=== PATIENT | female | born 2000 | race Caucasian/White ===

== ENCOUNTER 2023-04-13 20:28 | Emergency (ER) | payer BC, SELFPAY ==
[2023-04-13 20:31] VITALS: BP 145/92; PULSE 114; RESP 18; TEMP 37.1; O2SAT 98; BMI 35.8
--- NOTE | 2023-04-13 20:43 | ED.LOWEXI1 ---
HPI - Extremity Injury (Lower) General Chief Complaint: Extremity Injury, Lower Stated Complaint: STEPPED ON XANDER NAIL Time Seen by Provider: 04/13/23 20:36 Source: patient Mode of arrival: walk-in Limitations: no limitations History of Present Illness HPI Narrative: patient is a 22-year-old female who presents the emergency department for the evaluation of an abrasion in between the left great and 2nd toe. She states she stepped on a nail and it broke the skin, she states it bled veryy briefly and she did not note any significant laceration or puncture wound but was concerned she may need a tetanus shot. She had no other associated injuries. She believes her last tetanus shot was 9-10 years ago. Related Data Home Medications Medication Instructions Recorded Confirmed No Known Home Medications 04/13/23 04/13/23 Allergies Allergy/AdvReac Type Severity Reaction Status Date / Time Sulfa (Sulfonamide Allergy Intermediate Verified 04/13/23 20:36 Antibiotics) Review of Systems ROS Constitutional Denies: fever or chills Ears, nose, mouth, and throat Denies: throat pain Respiratory Denies: shortness of breath Gastrointestinal Denies: nausea or vomiting Musculoskeletal Denies: back pain Integumentary/Breast Denies: rash Neurological Denies: headache Allergic/Immunologic Denies: hives Exam Narrative Exam Narrative: Gen.: Awake, alert, in no distress Head: Normocephalic, atraumatic ENT: Moist mucous membranes Respiratory: No respiratory distress Extremities: Moves extremities equally, 2 mm faint abrasion that is extremely superficial to the lateral aspect of the left great toe in the webspace between the great toe and 2nd toe. There is no puncture wound, deep laceration or active bleeding noted. Psych: Normal mood and affect Neuro: No focal neuro deficit Skin: Warm, dry, intact Constitutional Vital Signs, click to edit/add: Last Vital Signs Temp 98.8 F 04/13/23 20:31 Pulse 114 H 04/13/23 20:31 Resp 18 04/13/23 20:31 BP 145/92 H 04/13/23 20:31 Pulse Ox 98 04/13/23 20:31 O2 Del Method Room Air 04/13/23 20:31 Course Vital Signs Vital signs: Vital Signs Temperature 98.8 F 04/13/23 20:31 Pulse Rate 114 H 04/13/23 20:31 Respiratory Rate 18 04/13/23 20:31 Blood Pressure 145/92 H 04/13/23 20:31 Pulse Oximetry 98 04/13/23 20:31 Oxygen Delivery Method Room Air 04/13/23 20:31 Temperature 98.8 F 04/13/23 20:31 Pulse Rate 114 H 04/13/23 20:31 Respiratory Rate 18 04/13/23 20:31 Blood Pressure 145/92 H 04/13/23 20:31 Pulse Oximetry 98 04/13/23 20:31 Oxygen Delivery Method Room Air 04/13/23 20:31 MDM - Extremity Injury (Lower) MDM Narrative Medical decision making narrative: I offered the patient a tetanus shot. Her abrasion is extremely superficial with no deep puncture wound into the tissue, she states if the tetanus shot is not absolutely necessary then she does not want it at this time. Discussed risks and benefits, at this time the patient has an extremely superficial abrasion that is low risk for tetanus, she was encouraged to follow-up with her doctor and she can change her mind within seventy-two hours if she would like a tetanus update later. Wound care encouraged although there is no significant area of laceration at this time Discharge Plan Discharge Chief Complaint: Extremity Injury, Lower Clinical Impression: Abrasion Patient Disposition: Home, Self-Care Time of Disposition Decision: 20:42 Condition: Good Prescriptions / Home Meds: No Action No Known Home Medications Instructions: Abrasion (ED) Stand Alone Forms: Portal Instructions Referrals: ADRYAN MOORE [Primary Care Provider] - 1 week Discharge Date/Time: 04/13/23 20:50
== END 2023-04-13 20:50 | disposition home or self-care (01) ==
PROVIDERS: Emergency Provider Internal Medicine; PCP Family Medicine
DX: S90.412A Abrasion, left great toe, initial encounter (principal); W45.0XXA Nail entering through skin, initial encounter
CPT/HCPCS: 99281

== ENCOUNTER 2023-06-19 10:04 | Outpatient (OUT) | payer SELFPAY ==
--- NOTE | 2023-06-19 10:08 | US_ITS ---
[address] [address] Patient Name: JUANPABLO CHAPARRO MRN: [id number] date: 2000 Sex: F Assigned Patient Location: Current Patient Location: US Accession/Order Number: [id number] Exam Date: 06/19/2023 10:08 Report Date: 06/19/2023 15:39 At the request of: DEVAN GEORGE Procedure: US OB transvaginal EXAMINATION: US OB transvaginal HISTORY: MISSED MENSES COMPARISON: No relevant comparison available. FINDINGS: GESTATIONAL SAC: Present and normal appearing. YOLK SAC: Present and normal appearing. POLE: Present and normal appearing. CARDIAC: Present. UTERUS: Normal size and appearance. OVARIES: Right: Normal. Left: Normal. CERVIX: 3.4 cm in length and closed. CUL-DE-SAC: Normal. OTHER: None. AGE BY LMP: 8 weeks 2 days TOMASZ BY LMP: 01/27/2024 AGE BY US CRL: 7 weeks 5 days TOMASZ BY US CRL: 01/31/2024 US/US OB transvaginal IMPRESSION: 1. Single live intrauterine . Electronically authenticated by: WILBERT CASIANO Date: 06/19/2023 15:39
== END 2023-06-19 10:05 | disposition home or self-care (01) ==
LOC: US 10:05
PROVIDERS: PCP Family Medicine; Visit Provider Obstetrics & Gynecology
DX: Z34.91 Encounter for supervision of normal pregnancy, unspecified, first trimester (principal); N92.6 Irregular menstruation, unspecified
CPT/HCPCS: 76817

== ENCOUNTER 2023-07-10 15:34 | Outpatient (OUT) | payer BC, SELFPAY ==
[2023-07-10 16:15] LABS: Basophils Percent Auto 0.4 % (0.2-2.0); Eosinophils Absolute Auto 0.2 10^3/uL (0.0-0.7); Eosinophils Percent Auto 1.7 % (0.9-7.0); Hematocrit 36.5 % (36.0-48.0); Immature Granulocytes Abs Auto 0.02 10^3/uL (0.00-0.03); Immature Granulocytes Pct Auto 0.2 % (0.0-0.5); Lymphocytes Absolute Auto 2.3 10^3/uL (1.2-3.8); Lymphocytes Percent Auto 24.4 % (20.5-60.0); Mean Corpuscular HGB Conc 35.6 g/dL (29.9-35.2); Mean Corpuscular Hemoglobin 30.6 pg (26.7-34.0); Mean Corpuscular Volume 85.9 fL (81.0-99.0); Mean Platelet Volume 10.7 fL (9.5-13.5); Monocytes Absolute Auto 0.7 10^3/uL (0.3-0.8); Monocytes Percent Auto 7.5 % (1.7-12.0); Neutrophils Absolute Auto 6.1 10^3/uL (1.4-6.5); Neutrophils Percent Auto 65.8 % (43.0-75.0); Platelet Count 371 10^3/uL (150-450); Red Blood Count 4.25 10^6/uL (4.20-5.40); Red Cell Distribution Width 12.2 % (11.0-15.0); White Blood Count 9.3 10^3/uL (4.0-11.0)
[2023-07-10 16:39] LABS: Estimated Average Glucose 100 mg/dL; Glycohemoglobin A1C 5.1 % (4.5-6.2)
[2023-07-10 16:48] LABS: Thyroid Stimulating Hormone 3.037 uIU/mL (0.358-3.740)
[2023-07-11 06:09] LABS: HBsAg Screen Negative (Negative); HCV Ab Non Reactive (Non Reactive); HIV Ab/p24 Ag Screen Non Reactive (Non Reactive)
[2023-07-11 07:09] LABS: Rubella Antibodies, IgG 6.94 index (Immune >0.99)
[2023-07-11 10:13] LABS: Rapid Plasma Reagin, Quant Non Reactive titer (NonRea<1:1)
== END 2023-07-10 15:35 | disposition home or self-care (01) ==
LOC: LAB 15:36
PROVIDERS: PCP Family Medicine; Visit Provider Obstetrics & Gynecology
DX: Z34.80 Encounter for supervision of other normal pregnancy, unspecified trimester (principal); Z3A.00 Weeks of gestation of pregnancy not specified
CPT/HCPCS: 36415; 83036; 84443; 85025; 86592; 86762; 86803; 86850; 86900; 86901; 87086; 87340; 87389

== ENCOUNTER 2023-08-13 19:13 | Outpatient (REF) | payer BC, SELFPAY ==
[2023-08-19 19:07] LABS: Age Gdln ACOG Testing Note (.); IGP, rfx Aptima HPV ASCU Note (.)
== END 2023-08-13 19:14 | disposition home or self-care (01) ==
LOC: LAB 19:13
PROVIDERS: PCP Family Medicine; Visit Provider Physician Assistant
DX: Z01.419 Encounter for gynecological examination (general) (routine) without abnormal findings (principal)
CPT/HCPCS: G0145

== ENCOUNTER 2023-09-14 16:37 | Outpatient (OUT) | payer BC, MEDICAID, SELFPAY ==
[2023-09-17 03:07] LABS: AFP Value 52.5 ng/mL (.); Gest. Age on Collection Date 22.1 weeks (.); Insulin Dep Diabetes No (.); Maternal Age At EDD 22.3 yr (.); OSBR Risk 1 IN 10000 (.); Results Report (.)
== END 2023-09-14 16:38 | disposition home or self-care (01) ==
PROVIDERS: PCP Family Medicine; Visit Provider Obstetrics & Gynecology
DX: Z34.92 Encounter for supervision of normal pregnancy, unspecified, second trimester (principal); Z20.2 Contact with and (suspected) exposure to infections with a predominantly sexual mode of transmission
CPT/HCPCS: 36415; 82105

== ENCOUNTER 2023-09-17 09:51 | Outpatient (OUT) | payer BC, MEDICAID, SELFPAY ==
--- NOTE | 2023-09-17 08:36 | US_ITS ---
[address] [address] Patient Name: JUANPABLO CHAPARRO MRN: [id number] date: 2000 Sex: F Assigned Patient Location: US Current Patient Location: Accession/Order Number: [id number] Exam Date: 09/17/2023 08:38 Report Date: 09/17/2023 22:25 At the request of: DEVAN GEORGE Procedure: US OB cervical length EXAMINATION: US OB anatomy, US OB cervical length HISTORY: ANATOMY COMPARISON: No relevant comparison available. TECHNIQUE: Transabdominal sonographic examination was performed for obstetrical and evaluation. FINDINGS: Number: 1 Heart Rate: 147.0 bpm H.B. /min Amniotic Fluid Volume: Subjectively normal Placental Location: POSTERIOR with lower margin 6.1 cm from os. Cervix Length: 5.6 cm; closed. ANATOMY: Normal Structures -cerebellum, choroid plexus, cisterna magna, lateral cerebral ventricles, orbits, midline falx, hard palate, four-chamber heart, RVOT, LVOT, stomach, kidneys, bladder, umbilical cord insertion into abdomen, three-vessel cord, cervical spine, thoracic spine, lumbar spine, sacral spine, right upper extremity, left upper extremity, right lower extremity, left lower extremity. SUBOPTIMALLY SEEN: None ABNORMALITIES: None BIOMETRY: BPD: 5.2 cm 21 weeks 6 days HC: 19.1 cm 21 weeks 2 days AC: 16.7 cm 21 weeks 5 days FL: 3.6 cm 21 weeks 3 days EFW:435.4 grams; 69% FL/AC: 21.7 FL/BPD: 69.5 HC/AC: 1.1 GESTATIONAL AGE: Age by EDC: 21 weeks 1 days TOMASZ by EDC: 01/27/2024 Age by current US: 21 weeks 4 days TOMASZ by current US: 01/24/2024 US/US OB cervical length IMPRESSION: 1. Single live intrauterine with growth detailed above. Electronically authenticated by: WILBERT CASIANO Date: 09/17/2023 22:25
--- NOTE | 2023-09-17 08:36 | US_ITS ---
[address] [address] Patient Name: JUANPABLO CHAPARRO MRN: [id number] date: 2000 Sex: F Assigned Patient Location: Current Patient Location: Accession/Order Number: [id number] Exam Date: 09/17/2023 08:38 Report Date: 09/17/2023 22:25 At the request of: DEVAN GEORGE Procedure: US OB anatomy EXAMINATION: US OB anatomy, US OB cervical length HISTORY: ANATOMY COMPARISON: No relevant comparison available. TECHNIQUE: Transabdominal sonographic examination was performed for obstetrical and evaluation. FINDINGS: Number: 1 Heart Rate: 147.0 bpm H.B. /min Amniotic Fluid Volume: Subjectively normal Placental Location: POSTERIOR with lower margin 6.1 cm from os. Cervix Length: 5.6 cm; closed. ANATOMY: Normal Structures -cerebellum, choroid plexus, cisterna magna, lateral cerebral ventricles, orbits, midline falx, hard palate, four-chamber heart, RVOT, LVOT, stomach, kidneys, bladder, umbilical cord insertion into abdomen, three-vessel cord, cervical spine, thoracic spine, lumbar spine, sacral spine, right upper extremity, left upper extremity, right lower extremity, left lower extremity. SUBOPTIMALLY SEEN: None ABNORMALITIES: None BIOMETRY: BPD: 5.2 cm 21 weeks 6 days HC: 19.1 cm 21 weeks 2 days AC: 16.7 cm 21 weeks 5 days FL: 3.6 cm 21 weeks 3 days EFW:435.4 grams; 69% FL/AC: 21.7 FL/BPD: 69.5 HC/AC: 1.1 GESTATIONAL AGE: Age by EDC: 21 weeks 1 days TOMASZ by EDC: 01/27/2024 Age by current US: 21 weeks 4 days TOMASZ by current US: 01/24/2024 US/US OB anatomy IMPRESSION: 1. Single live intrauterine with growth detailed above. Electronically authenticated by: WILBERT CASIANO Date: 09/17/2023 22:25
--- OUTSIDE RECORDS SUMMARY | 2023-09-17 10:38 | XMS_ITS | CCD ---
Author Name Unknown Address [address] [facility] [address] [place] [address] Organization [facility] Care Team Providers Care Testing Shaking Shipping Name Role Phone Deonna Back Unavailable OSCAR, ADRYAN Primary Care Physician [phone] LESLEY, DR LUIS ANTONIO Jorge Consulting Unavailable LESLEY, DR LUIS ANTONIO Jorge Attending Unavailable DEFRANCE, DR CORNELIUS Primary Care Unavailable LESLEY, DR LUIS ANTONIO Jorge Admitting Unavailable DEFRANCE, DR CORNELIUS Primary Care Unavailable DIETER GONZALEZ Admitting Unavailable DIETER GONZALEZ Attending Unavailable CHIKA LEOS Consulting Unavailable DEFRANCE, DR CORNELIUS Primary Care Unavailable PATEL, DR BOLAÑOS Consulting Unavailable HAY, DR ESPINOZA Attending Unavailable HAY, DR ESPINOZA Admitting Unavailable AURELIA CARLOS Consulting Unavailable LESLEY, DR LUIS ANTONIO Jorge Consulting Unavailable DEFRANCE, DR CORNELIUS Primary Care Unavailable LESLEY, DR LUIS ANTONIO Jorge Attending Unavailable LESLEY, DR LUIS ANTONIO Jorge Admitting Unavailable LESLEY, DR LUIS ANTONIO Jorge Consulting Unavailable LESLEY, DR LUIS ANTONIO Jorge Attending Unavailable DEFRANCE, DR CORNELIUS Primary Care Unavailable SUTTON, DR LUIS ANTONIO Jorge Admitting Unavailable DEFRANCE, DR CORNELIUS Primary Care Unavailable ARIEL, DR HARTMAN Attending Unavailable ARIEL, DR HARTMAN Admitting Unavailable ARIEL, DR HARTMAN Consulting Unavailable DEFRANCE, DR CORNELIUS Primary Care Unavailable ARIEL, DR HARTMAN Attending Unavailable ARIEL, DR HARTMAN Admitting Unavailable DEFRANCE, DR CORNELIUS Primary Care Unavailable ARIEL, DR HARTMAN Attending Unavailable ARIEL, DR HARTMAN Admitting Unavailable ARIEL, DR HARTMAN Consulting Unavailable YESENIA ARCHER Consulting Unavailable DEFRANCE, DR CORNELIUS Primary Care Unavailable DEFRANCE, DR CORNELIUS Consulting Unavailable CHIKA LEOS Attending Unavailable CHIKA LEOS Admitting Unavailable LESLEY, DR LUIS ANTONIO Jorge Attending Unavailable CHIKA BHAKTA Consulting Unavailable DEFRANCE, DR CORNELIUS Primary Care Unavailable LESLEY, DR LUIS ANTONIO Jorge Admitting Unavailable DEFRANCE, DR CORNELIUS Primary Care Unavailable DIETER GONZALEZ Consulting Unavailable DIETER GONZALEZ Attending Unavailable DIETER GONZALEZ Admitting Unavailable BLANCA LEOS Attending Unavailable Allergies Allergy Classification Reported Allergen(s) Allergy Type Date of Onset Reaction(s) Facility (3 sources) Sulfacetamide Drug Allergy rash [facility] Other (1 source) Sulfonamides (Antibiotic); Translations: [sulfa drugs] Drug allergy Hyperpyrexia (finding) [facility] (1 source) Sulfonamides (Antibiotic) Drug allergy (disorder) 4 [facility] Repository Medications Current Medications Medication Drug Class(es) Dates Sig (Normalized) Sig (Original) fluticasone propionate 0.05 mg/actuat metered dose nasal spray (2 sources) Corticosteroid Start: 04-09-2022 take 2 spray(s) nasal route once daily Fluticasone Propionate 50 MCG/ACT 2 sprays Nasally Once a day for 14 day(s) Mar, Active Ibuprofen (3 sources) Nonsteroidal Anti-inflammatory Drug Ibuprofen Active Ondansetron (2 sources) Serotonin-3 Receptor Antagonist Zofran Active predniSONE 20 mg oral tablet (5 sources) Start: 02-21-2018 take 1 tablet by mouth every twelve hours predniSONE 20 MG 1 tablet Orally 2 times a day for 5 day(s) Mar, Active Completed/Discontinued Medications Medication Drug Class(es) Dates Sig (Normalized) Sig (Original) [id number] 200 actuat albuterol 0.09 mg/actuat metered dose inhaler (3 sources) beta2-Adrenergic Agonist Start: 02-21-2018 take 2 puff(s) by inhalation every four to six hours as needed ProAir HFA 108 (90 Base) MCG/ACT 2 puffs as needed Inhalation every 4-6 hrs January, Not-Taking amoxicillin 500 mg oral capsule (6 sources) Penicillin-class Antibacterial Start: 04-02-2022 take 1 capsule by mouth every eight hours Amoxicillin 500 MG 1 capsule Orally three times a day for 10 day(s) Mar, Not-Taking Start: 02-21-2018 take 1 tablet by tresa th every eight hours Amoxicillin 875 MG 1 tablet Orally every 8 hrs for 10 day(s) January, Not-Taking Brompheniramine / Pseudoephedrine (3 sources) alpha-Adrenergic Agonist Start: 02-21-2018 take 5 mL by mouth every six hours as needed Bromfed DM 30-2-10 MG/5ML 5 ml as needed Orally every 6 hrs January, Not-Taking hydrocortisone 10 mg/ml / neomycin 3.5 mg/ml / polymyxin b [id number] unt/ml otic suspension (3 sources) Aminoglycoside Antibacterial, Polymyxin-class Antibacterial, Corticosteroid Start: 04-02-2022 Neomycin-Polymyx in-HC [id number] 3 drops left ear Three times a day for 7 days Mar, Not-Taking mupirocin 0.02 mg/mg topical ointment (3 sources) RNA Synthetase Inhibitor Antibacterial Start: 02-21-2018 Mupirocin 2 % 1 application to affected area Externally once per day for 7 days January, Not-Taking Problems Active Problems Problem Classification Problem Date Documented Da te Episodic/Chronic Abdominal pain (5 sources) Unspecified abdominal pain; Translations: [Pelvic and perineal pain] Onset: 10-25-2021 Episodic Allergic reactions (1 source) Allergy, unspecified, initial encounter; Translations: [ALLERGY UNSPECIFIED INITIAL ENCNTR] Onset: 08-11-2022 Episodic Conditions associated with dizziness or vertigo (3 sources) Dizziness and giddiness; Translations: [Dizziness and giddiness] Onset: 04-09-2022 Resolved: 04-09-2022 Episodic Fluid and electrolyte disorders (1 source) Hypokalemia; Translations: [HYPOKALEMIA] Onset: 09-16-2022 Episodic Gastrointestinal hemorrhage (4 sources) Hematemesis; Translations: [HEMATEMESIS] Onset: 09-14-2022 Episodic Headache; including migraine (1 source) Headache; Translations: [Headache, unspecified] Onset: 04-12-2022 Episodic Headache; including migraine (4 sources) Headache; including migraine; Translations: [HEADACHE UNSPECIFIED] Onset: 04-13-2022 Menstrual disorders (1 source) Dysmenorrhea, unspecified; Translations: [DYSMENORRHEA UNSPECIFIED] Onset: 10-30-2021 Chronic Other female genital disorders (1 source) Unspecified dyspareunia; Translations: [UNSPECIFIED DYSPAREUNIA] Onset: 10-30-2021 Chronic Other gastrointestinal disorders (5 sources) Diarrhea, unspecified; Translations: [DIARRHEA UNSPECIFIED] Onset: 04-16-2022 Episodic Other skin disorders (5 sources) Rash and other nonspecific skin eruption; Translations: [RASH OTH NONSPECIFIC SKIN ERUPTION] Onset: 08-11-2022 Episodic Substance-related disorders (2 sources) Nicotine dependence, other tobacco product, uncomplicated; Translations: [Nicotine dependence, cigarettes, uncomplicated] Onset: 08-14-2022 Chronic Unclassified (1 source) CONTACT W/AND (SUSP) EXPOS COVID-19; Translations: [CONTACT W/AND (SUSP) EXPOS COVID-19] Onset: 10-24-2021 Past or Other Problems Problem Classification Problem Date Documented Date Episodic/Chronic Nausea and vomiting (3 sources) Nausea with vomiting, unspecified; Translations: [NAUSEA WITH VOMITING UNSPECIFIED] Onset: 04-09-2022 Episodic Noninfectious gastroenteritis (1 source) Noninfective gastroenteritis and colitis, unspecified; Translations: [NONINFECTIVE GE AND COLITIS UNS] Onset: 04-10-2022 Episodic Other ear and sense organ disorders (1 source) Unspecified acute noninfective otitis externa, left ear Onset: 04-02-2022 Resolved: 04-02-2022 Episodic Results Test Name Value Interpretation Reference Range Facil ity CBC AUTO DIFFon 09-14-2022 BASO # 0.0 103/ul Normal 0.0-0.1 [facility] Comment on above: Performed By: #### B GURPREET, TSH #### [facility] [address] [place] [address] Dr. Reema Mireles Basophils/100 WBC (Bld) 0.6 % Normal 0.2-2.0 [facility] Comment on above: Performed By: #### B MP, TSH #### [facility] [address] [address] [address] Reema Mireles EO # 0.0 103/ul Normal 0.0-0.7 [facility] Comment on above: Performed By: #### B MP, TSH #### [facility] [address] [address] [address] Reema Mireles Eosinophils/100 WBC (Bld) 0.6 % Critically low 0.9-7.0 [facility] Comment on above: Performed By: #### B MP, TSH #### [facility] [address] [place] [address] Dr. Reema Mireles Erythrocyte distribution width (RBC) [Ratio] 11.9 % Normal 11.0-15.0 [facility] Comment on above: Performed By: #### B MP, TSH #### [facility] [address] [place] [address] Dr. Reema Mireles Hematocrit (Bld) [Volume fraction] 37.8 % Normal 36.0-48.0 [facility] Comment on above: Performed By: #### B MP, TSH #### [facility] [address] [place] [address] Dr. Reema Mireles Hemoglobin (Bld) [Mass/Vol] 13.5 g/dL Normal 12.0-16.0 [facility] Comment on above: Performed By: #### B GURPREET, TSH #### [facility] [address] [place] [address] Dr. Reema Mireles IG # 0.01 10e3/ul Normal 0.00-0.03 [facility] Comment on above: Performed By: #### B GURPREET, TSH #### [facility] [address] [place] [address] Dr. Reema Mireles IG % 0.2 % Normal 0.0-0.5 [facility] Comment on above: Performed By: #### B GURPREET, TSH #### [facility] [address] [place] [address] Dr. Reema Mireles LYMPH # 1.6 103/ul Normal 1.2-3.8 [facility] Comment on above: Performed By: #### B MP, TSH #### [facility] [address] [place] [address] Dr. Reema Mireles Lymphocytes/100 WBC (Bld) 25.5 % Normal 20.5-60.0 [facility] Comment on above: Performed By: #### B MP, TSH #### [facility] [address] [place] [address] Dr. Reema Mireles MANUAL DIFF REQ NO Normal [facility] Comment on above: Performed By: #### B MP, TSH #### [facility] [address] [place] [address] Dr. Reema Mireles MCH (RBC) [Entitic mass] 30.9 pg Normal 26.7-34.0 [facility] Comment on above: Performed By: #### B MP, TSH #### [facility] [address] [place] [address] Dr. Reema Mireles MCHC (RBC) [Mass/Vol] 35.7 g/dL Critically high 29.9-35.2 [facility] Comment on above: Performed By: #### B MP, TSH #### [facility] [address] [place] [address] Dr. Reema Mireles MCV (RBC) [Entitic vol] 86.5 fL Normal 81.0-99.0 [facility] Comment on above: Performed By: #### B MP, TSH #### [facility] [address] [place] [address] Dr. Reema Mireles MONO # 0.5 103/ul Normal 0.3-0.8 [facility] Comment on above: Performed By: #### B MP, TSH #### [facility] [address] [place] [address] Dr. Reema Mireles Monocytes/100 WBC (Bld) 8.5 % Normal 1.7-12.0 [facility] Comment on above: Performed By: #### B MP, TSH #### [facility] [address] [place] [address] Dr. Reema Mireles NEUT # 4.1 103/ul Normal 1.4-6.5 [facility] Comment on above: Performed By: #### B MP, TSH #### [facility] [address] [place] [address] Dr. Reema Mireles Neutrophils/100 WBC (Bld) 64.6 % Normal 43.0-75.0 [facility] Comment on above: Performed By: #### B MP, TSH #### [facility] [address] [place] [address] Dr. Reema Mireles Platelet mean volume (Bld) [Entitic vol] 9.9 fL Normal 9.5-13.5 [facility] Comment on above: Performed By: #### B MP, TSH #### [facility] [address] [address] [address] Reema Mireles PLT 403 103/ul Normal 150-450 [facility] Comment on above: Performed By: #### B MP, TSH #### [facility] [address] [address] [address] Reema Mireles RBC 4.37 106/ul Normal 4.20-5.40 [facility] Comment on above: Performed By: #### B MP, TSH #### [facility] [address] [address] [address] Reema Mireles WBC 6.3 103/ul Normal 4.0-11.0 [facility] Comment on above: Performed By: #### B MP, TSH #### [facility] [address] [place] [address] Dr. Reema Mireles PROF 14(COMP METB)on 022 Albumin [Mass/Vol] 4.3 g/dL Normal 3.4-5.0 [facility] Comment on above: Performed By: #### B MP, TSH #### [facility] [address] [place] [address] Dr. Reema Mireles Albumin/Globulin [Mass ratio] 1.2 {ratio} Normal [facility] Comment on above: Performed By: #### B MP, TSH #### [facility] [address] [place] [address] Dr. Reema Mireles ALP [Catalytic activity/Vol] 79 U/L Normal 46-116 [facility] Comment on above: Performed By: #### B MP, TSH #### [facility] [address] [place] [address] Dr. Reema Mireles ALT [Catalytic activity/Vol] 31 U/L Normal 14-59 [facility] Comment on above: Performed By: #### B MP, TSH #### [facility] [address] [address] [address] Reema Mireles Anion gap [Moles/Vol] 12.1 mmol/L Normal [facility] Comment on above: Performed By: #### B MP, TSH #### [facility] [address] [address] [address] Reema Mireles AST [Catalytic activity/Vol] 17 U/L Normal 15-37 [facility] Comment on above: Performed By: #### B MP, TSH #### [facility] [address] [address] [address] Reema Mireles Bilirubin [Mass/Vol] 0.4 mg/dL Normal 0.2-1.0 [facility] Comment on above: Performed By: #### B MP, TSH #### [facility] [address] [address] [address] Reema Mireles Calcium [Mass/Vol] 8.9 mg/dL Normal 8.5-10.1 [facility] Comment on above: Performed By: #### B MP, TSH #### [facility] [address] [place] [address] Dr. Reema Mireles Chloride [Moles/Vol] 98 mmol/L Normal 98-107 [facility] Comment on above: Performed By: #### B MP, TSH #### [facility] [address] [address] [address] Reema Mireles CO2 [Moles/Vol] 27.0 mmol/L Normal 21.0-32.0 [facility] Comment on above: Performed By: #### B MP, TSH #### [facility] [address] [place] [address] Dr. Reema Mireles Creatinine [Mass/Vol] 0.65 mg/dL Normal 0.55-1.02 [facility] Comment on above: Performed By: #### B MP, TSH #### [facility] [address] [address] [address] Reema Mireles EGFR-AF STATELESS >60 Normal >=60 [facility] Comment on above: Performed By: #### B MP, TSH #### [facility] [address] [address] [address] Reema Mireles EGFR-NON AF STATELESS >60 Normal >=60 [facility] Comment on above: Performed By: #### B MP, TSH #### [facility] [address] [place] [address] Dr. Reema Mireles Globulin (S) [Mass/Vol] 3.5 g/dL Normal [facility] Comment on above: Performed By: #### B MP, TSH #### [facility] [address] [place] [address] Dr. Reema Mireles Glucose [Mass/Vol] 106 mg/dL Normal 74-106 [facility] Comment on above: Performed By: #### B MP, TSH #### [facility] [address] [place] [address] Dr. Reema Mireles Potassium [Moles/Vol] 3.1 mmol/L Critically low 3.5-5.1 [facility] Comment on above: Performed By: #### B MP, TSH #### [facility] [address] [place] [address] Dr. Reema Mireles Protein [Mass/Vol] 7.8 g/dL Normal 6.4-8.2 [facility] Comment on above: Performed By: #### B MP, TSH #### [facility] [address] [place] [address] Dr. Reema Mireles Sodium [Moles/Vol] 134 mmol/L Critically low 136-145 [facility] Comment on above: Performed By: #### B MP, TSH #### [facility] [address] [place] [address] Dr. Reema Mireles Urea nitrogen [Mass/Vol] 6.0 mg/dL Critically low 7.0-18.0 [facility] Comment on above: Performed By: #### B MP, TSH #### [facility] [address] [place] [address] Dr. Reema Mireles Urea nitrogen/Creatinine [Mass ratio] 9.2 mg/mg Normal [facility] Comment on above: Performed By: #### B MP, TSH #### [facility] [address] [place] [address] Dr. Reema Mireles ACETONE SERUMon 08-11-2022 ACETONE Negative Normal NEGATIVE [facility] Comment on above: Performed By: #### B MP, TSH #### [facility] [address] [place] [address] Dr. Reema Mireles CBC AUTO DIFFon 08-11-2022 BASO # 0.1 103/ul Normal 0.0-0.1 [facility] Comment on above: Performed By: #### B MP, TSH #### [facility] [address] [place] [address] Dr. Reema Mireles Basophils/100 WBC (Bld) 0.5 % Normal 0.2-2.0 [facility] Comment on above: Performed By: #### B MP, TSH #### [facility] [address] [place] [address] Dr. Reema Mireles EO # 0.1 103/ul Normal 0.0-0.7 [facility] Comment on above: Performed By: #### B MP, TSH #### [facility] [address] [place] [address] Dr. Reema Mireles Eosinophils/100 WBC (Bld) 0.7 % Critically low 0.9-7.0 [facility] Comment on above: Performed By: #### B MP, TSH #### [facility] [address] [place] [address] Dr. Reema Mireles Erythrocyte distribution width (RBC) [Ratio] 11.7 % Normal 11.0-15.0 [facility] Comment on above: Performed By: #### B MP, TSH #### [facility] [address] [place] [address] Dr. Reema Mireles Hematocrit (Bld) [Volume fraction] 37.6 % Normal 36.0-48.0 [facility] Comment on above: Performed By: #### B MP, TSH #### [facility] [address] [place] [address] Dr. Reema Mireles Hemoglobin (Bld) [Mass/Vol] 13.1 g/dL Normal 12.0-16.0 [facility] Comment on above: Performed By: #### B MP, TSH #### [facility] [address] [place] [address] Dr. Reema Mireles IG # 0.02 10e3/ul Normal 0.00-0.03 [facility] Comment on above: Performed By: #### B MP, TSH #### [facility] [address] [place] [address] Dr. Reema Mireles IG % 0.2 % Normal 0.0-0.5 [facility] Comment on above: Performed By: #### B MP, TSH #### [facility] [address] [address] [address] Reema Mireles LYMPH # 2.7 103/ul Normal 1.2-3.8 [facility] Comment on above: Performed By: #### B MP, TSH #### [facility] [address] [place] [address] Dr. Reema Mireles Lymphocytes/100 WBC (Bld) 28.5 % Normal 20.5-60.0 [facility] Comment on above: Performed By: #### B MP, TSH #### [facility] [address] [place] [address] Dr. Reema Mireles MANUAL DIFF REQ NO Normal [facility] Comment on above: Performed By: #### B MP, TSH #### [facility] [address] [place] [address] Dr. Reema Mireles MCH (RBC) [Entitic mass] 30.3 pg Normal 26.7-34.0 [facility] Comment on above: Performed By: #### B MP, TSH #### [facility] [address] [place] [address] Dr. Reema Mireles MCHC (RBC) [Mass/Vol] 34.8 g/dL Normal 29.9-35.2 [facility] Comment on above: Performed By: #### B MP, TSH #### [facility] [address] [place] [address] Dr. Reema Mireles MCV (RBC) [Entitic vol] 87.0 fL Normal 81.0-99.0 [facility] Comment on above: Performed By: #### B MP, TSH #### [facility] [address] [place] [address] Dr. Reema Mireles MONO # 0.8 103/ul Normal 0.3-0.8 [facility] Comment on above: Performed By: #### B MP, TSH #### [facility] [address] [place] [address] Dr. Reema Mireles Monocytes/100 WBC (Bld) 8.2 % Normal 1.7-12.0 [facility] Comment on above: Performed By: #### B MP, TSH #### [facility] [address] [place] [address] Dr. Reema Mireles NEUT # 5.9 103/ul Normal 1.4-6.5 [facility] Comment on above: Performed By: #### B MP, TSH #### [facility] [address] [place] [address] Dr. Reema Mireles Neutrophils/100 WBC (Bld) 61.9 % Normal 43.0-75.0 [facility] Comment on above: Performed By: #### B MP, TSH #### [facility] [address] [place] [address] Dr. Reema Mireles Platelet mean volume (Bld) [Entitic vol] 10.2 fL Normal 9.5-13.5 [facility] Comment on above: Performed By: #### B MP, TSH #### [facility] [address] [place] [address] Dr. Reema Mireles PLT 382 103/ul Normal 150-450 [facility] Comment on above: Performed By: #### B MP, TSH #### [facility] [address] [place] [address] Dr. Reema Mireles RBC 4.32 106/ul Normal 4.20-5.40 [facility] Comment on above: Performed By: #### B MP, TSH #### [facility] [address] [place] [address] Dr. Reema Mireles WBC 9.6 103/ul Normal 4.0-11.0 [facility] Comment on above: Performed By: #### B MP, TSH #### [facility] [address] [place] [address] Dr. Reema Mireles CRPon 08-11-2022 CRP [Mass/Vol] mg/L Normal <=1.0 [facility] Comment on above: Performed By: #### B MP, TSH #### [facility] [address] [place] [address] Dr. Reema MILLER URINE PROFILEon 2 Bilirubin Ql (U) Negative Normal NEGATIVE The [facility] Comment on above: Performed By: #### B MP, TSH #### [facility] [address] [place] [address] Dr. Reema Mireles Clarity (U) CLEAR Normal CLEAR [facility] Comment on above: Performed By: #### B MP, TSH #### [facility] [address] [place] [address] Dr. Reema Mireles Color (U) LT. YELLOW Normal YELLOW [facility] Comment on above: Performed By: #### B MP, TSH #### [facility] [address] [place] [address] Dr. Reema ELIZALDE A micrscopic examination will be performed if indicated. Normal [facility] Comment on above: Performed By: #### B MP, TSH #### [facility] [address] [place] [address] Dr. Reema Mireles Glucose Ql (U) Negative Normal NEGATIVE [facility] Comment on above: Performed By: #### B MP, TSH #### [facility] [address] [place] [address] Dr. Reema Mireles Hemoglobin Ql (U) Negative Normal NEGATIVE [facility] Comment on above: Performed By: #### B MP, TSH #### [facility] [address] [place] [address] Dr. Reema Mireles Ketones Ql (U) Negative Normal NEGATIVE [facility] Comment on above: Performed By: #### B MP, TSH #### [facility] [address] [place] [address] Dr. Reema Mireles LEUKOCYTES Negative Normal NEGATIVE [facility] Comment on above: Performed By: #### B MP, TSH #### [facility] [address] [place] [address] Dr. Reema Mireles Nitrite Ql (U) Negative Normal NEGATIVE [facility] Comment on above: Performed By: #### B MP, TSH #### [facility] [address] [address] [address] Reema Mireles pH (U) 5.5 [pH] Normal 5-9 [facility] Comment on above: Performed By: #### B MP, TSH #### [facility] [address] [address] [address] Reema Mireles SPEC GRAVITY <=1.005 Abnormal 1.005-<=1.025 [facility] Comment on above: Performed By: #### B MP, TSH #### [facility] [address] [place] [address] Dr. Reema Mireles UA PROTEIN Negative Normal NEGATIVE/ TRACE [facility] Comment on above: Performed By: #### B MP, TSH #### [facility] [address] [place] [address] Dr. Reema Mireles UR MICRO IND NOT INDICATED Normal [facility] Comment on above: Performed By: #### B MP, TSH #### [facility] [address] [place] [address] Dr. Reema Mireles Urobilinogen Qn (U) 0.2 {Renny'U}/dL Normal 0.2 - 1. 0 [facility] Comment on above: Performed By: #### B MP, TSH #### [facility] [address] [place] [address] Dr. Reema Mireles LIPASEon 08-11-2022 Lipase [Catalytic activity/Vol] 71.0 U/L Critically low 73.0-393.0 [facility] Comment on above: Performed By: #### B MP, TSH #### [facility] [address] [address] [address] Reema Mireles URon 08-11-2022 , QUAL Negative Normal NEGATIVE [facility] Comment on above: Performed By: #### C VDTBH #### [facility] [address] [place] [address] Dr. Reema Mireles PROF 14(COMP METB)on 11-14-2 022 Albumin [Mass/Vol] 4.3 g/dL Normal 3.4-5.0 [facility] Comment on above: Performed By: #### B MP, TSH #### [facility] [address] [place] [address] Dr. Reema Mireles Albumin/Globulin [Mass ratio] 1.2 {ratio} Normal [facility] Comment on above: Performed By: #### B MP, TSH #### [facility] [address] [address] [address] Reema Mireles ALP [Catalytic activity/Vol] 70 U/L Normal 46-116 [facility] Comment on above: Performed By: #### B GURPREET, TSH #### [facility] [address] [place] [address] Dr. Reema Mireles ALT [Catalytic activity/Vol] 16 U/L Normal 14-59 [facility] Comment on above: Performed By: #### B GURPREET, TSH #### [facility] [address] [place] [address] Dr. Reema Mireles Anion gap [Moles/Vol] 10.5 mmol/L Normal [facility] Comment on above: Performed By: #### B GURPREET, TSH #### [facility] [address] [place] [address] Dr. Reema Mireles AST [Catalytic activity/Vol] 8 U/L Critically low 15-37 [facility] Comment on above: Performed By: #### B GURPREET, TSH #### [facility] [address] [place] [address] Dr. Reema Mireles Bilirubin [Mass/Vol] 0.3 mg/dL Normal 0.2-1.0 [facility] Comment on above: Performed By: #### B MP, TSH #### [facility] [address] [place] [address] Dr. Reema Mireles Calcium [Mass/Vol] 9.0 mg/dL Normal 8.5-10.1 [facility] Comment on above: Performed By: #### B GURPREET, TSH #### [facility] [address] [place] [address] Dr. Reema Mireles Chloride [Moles/Vol] 104 mmol/L Normal 98-107 [facility] Comment on above: Performed By: #### B MP, TSH #### [facility] [address] [place] [address] Dr. Reema Mireles CO2 [Moles/Vol] 26.5 mmol/L Normal 21.0-32.0 [facility] Comment on above: Performed By: #### B MP, TSH #### [facility] [address] [address] [address] Reema Mireles Creatinine [Mass/Vol] 0.79 mg/dL Normal 0.55-1.02 [facility] Comment on above: Performed By: #### B MP, TSH #### [facility] [address] [place] [address] Dr. Reema Mireles EGFR-AF STATELESS >60 Normal >=60 [facility] Comment on above: Performed By: #### B MP, TSH #### [facility] [address] [place] [address] Dr. Reema Mireles EGFR-NON AF STATELESS >60 Normal >=60 [facility] Comment on above: Performed By: #### B MP, TSH #### [facility] [address] [place] [address] Dr. Reema Mireles Globulin (S) [Mass/Vol] 3.5 g/dL Normal [facility] Comment on above: Performed By: #### B MP, TSH #### [facility] [address] [address] [address] Reema Mireles Glucose [Mass/Vol] 106 mg/dL Normal 74-106 [facility] Comment on above: Performed By: #### B MP, TSH #### [facility] [address] [address] [address] Reema Mireles Potassium [Moles/Vol] 3.0 mmol/L Critically low 3.5-5.1 [facility] Comment on above: Performed By: #### B MP, TSH #### [facility] [address] [address] [address] Reema Mireles Protein [Mass/Vol] 7.8 g/dL Normal 6.4-8.2 [facility] Comment on above: Performed By: #### B MP, TSH #### [facility] [address] [place] [address] Dr. Reema Mireles Sodium [Moles/Vol] 138 mmol/L Normal 136-145 [facility] Comment on above: Performed By: #### B MP, TSH #### [facility] [address] [place] [address] Dr. Reema Mireles Urea nitrogen [Mass/Vol] 8.0 mg/dL Normal 7.0-18.0 [facility] Comment on above: Performed By: #### B MP, TSH #### [facility] [address] [place] [address] Dr. Reema Mireles Urea nitrogen/Creatinine [Mass ratio] 10.1 mg/mg Normal [facility] Comment on above: Performed By: #### B MP, TSH #### [facility] [address] [place] [address] Dr. Reema Mireles PROTIMEon 08-11-2022 INR Coag (PPP) [Relative time] 1.00 {INR} Normal [facility] Comment on above: Performed By: #### P T, PTT #### [facility] [address] [place] [address] Dr. Reema Mireles INR GUIDELINES SEE BELOW Normal [facility] Comment on above: Result Comment: FELICIANO RED INR: 2.0 - 3.0 CONDITIONS NOT LISTED BELOW 2.5 - 3.5 FOR PROSTHETIC HEART VALVE REPLACEMENT 2.5 - 3.5 RECURRENT THROMBOSIS Performed By: #### P T, PTT #### [facility] [address] [place] [address] Dr. Reema Mireles PT Coag (PPP) [Time] 10.8 s Normal 9.0-11.6 [facility] Comment on above: Performed By: #### P T, PTT #### [facility] [address] [place] [address] Dr. Reema Mireles PTTon 08-11-2022 aPTT Coag (Bld) [Time] 30.8 s Normal 22.3-36.2 [facility] Comment on above: Performed By: #### P T, PTT #### [facility] [address] [address] [address] Reema Mireles SED RATE [facility] IS[facility]EN[facility] 2021 SED RATE 10 mm/hr Normal <=20 [facility] Comment on above: Performed By: #### B MP, TSH #### [facility] [address] [address] [address] Reema Mireles TSHon 08-11-2022 TSH 3.313 uIU/mL Normal 0.358-3.740 [facility] Comment on above: Performed By: #### B MP, TSH #### [facility] [address] [place] [address] Dr. Reema Mireles Discharge Instructionson Discharge Instructions [id number]:[id number] Normal [facility] Comment on above: Other Comment: wrong patient STOOL CULTUREon 04-20-2022 Campylobacter Culture Final report Normal [facility] Comment on above: Performed By: #### B MP, TSH #### [facility] [address] [address] [address] Reema Mireles E coli Shiga Toxin EIA Negative Normal Negative [facility] Comment on above: Performed By: #### B MP, TSH #### [facility] [address] [place] [address] Dr. Reema Mireles Result 1 Comment Normal [facility] Comment on above: Result Comment: No S almonella or Shigella recovered. Performed By: #### B MP, TSH #### [facility] [address] [place] [address] Dr. Reema Mireles Result Comment: No C ampylobacter species isolated. Salmonella/Shigella Screen Final report Normal [facility] Comment on above: Performed By: #### B MP, TSH #### [facility] [address] [place] [address] Dr. Reema Mirelse Coding Summary.on 04-14-2022 Coding Summary. CD:[id number] G h0bWw+PGhlYWQ+DA0UVUC nN94uvUIdnY6FS6qEMB5Z GQFQEPETWB4YCN9raQT5A BlhW2EujuTf XwnkiJFcEH70PFq0ZUT3d MtsZMkfiR5paUHoW5l8Hw QbWJ86jV92VHpoFBTzJmP 3LjZpbjsgbWFy L9ioQfZddBAyTjc+PHRhY mxlIHdpZHRoPScxMDAlJy NbeEjnYI1fRi0aAVHoKLJ vbGxhcHNlOiBj z5daEUDpJXwgIB5slLmtT 8GthGD5FVGmh1q5Jy68lW I+PPTvPGU5bMvqBKarb50 3SgIaq6nsTAD3 wMPaUFgdHWJ5G63xf0K5A SDxZDLwJIK3kJP8eN0ufC kccqgkI6IfbTVcMlO7WDA 9mVYvsX6tuPli fdyyhA9eUae+F58LAV5BE KQIXC5RVou4Z4MdPnktnB I+QY12AKHgBO58kOTfmSN rw1lmrFq1IvBz QGDeHNV0cAxgHOtru5BcB IFzF12thVHwk6A0SEOuvZ karMNxShFxaBN2rC4rFBa zhhjaq5gpknro Ousfi1yxez29fA47Q58mD QtiZTMjOSC7KFEaMXWlcY deik5jdT0xLa3+ORyqi0k xu8ebdGq5EaOg WMOmpxFvoZkxBYZ4h0GaR t09V0ZhvTxbh3LdDwb9kj 60tUFad5C4wIM7XTnrULQ wnR0nNTrmPeU8 SAZxWzHmpE45xUHlODrpB p9eoFdejRuaSM9fXGNjvx esQJJavY8gIYFejPTcpYy aQZ6hPZCzkomw w607PkUjYTU2ETBvfGRnT 3VkqX1xGyRnUWIxRUHjC8 GkgULbYXwtZ082RTmiVfE 7UMLrhpSyQ6On MVJupCmfQxB6x8K0Uj8Rq 5QynhfgKMJ2NFpsUJQ6Zp H5IeIgEpW3M8AuSzb2LCP zlUzvBQ6lJ2Ae DTQzlfdnieicpHG5CFAsH QLqcN25mEPrHGrqAl7of1 G7a167JMTkGPXanO90Bt9 udDogMTBwdCBU eU5fhptnt7fhhpafVbSrW FQvPLl1SSu9TOKfbWksBi QyNSM2PtS5IUF8uPBggE5 moOxdkhnxhY8a Oyc+R09mvO9oZNH3ETM0w kfmENZkjbYuWA49KW03P8 RyPjwvdGFibGU+PGRpdiB ggFuaRA2bPvXl v4nmw8LqEZtgG8TaYVFwO IiuMpm2MNEbEJF9rRP7fV 5hUIPoZGqmz9M8kBB4H2U spdHohe0ts4be KSJwRLqkI35jlFXya8N0M TAgqOP9OAOezZqnKgGhtL 93Oyc+ZOQirTxfq6AiQcd ka5gct9yfyRv2 EvJiQYQdkoFcwSnrBHE7e 8EfJr00N12uHTpsQUUqKZ RxNXRjFTWpiJqzze0stO3 wIi8+PGNvbCB3 pIA3oV3mEESyWcA9ECwqH 266VkFoiINwKoosz9ovv1 tmgYi6CjUoUHKhhjCrcTu xNAO5e5ByWy88 W66lUYdzFHGbCIPcGGJhW DAfxIltxc7doN4eEr0+PC 5ty7utgd04aE77tJN+PHR zBNK9bZieSRki BTPdvM8bKQavUnM5JFHxD eJwxS82aXOvHOdwPz1vbY ireWacLW2nHSJwvqrux48 1VlXcu3xyMJQh jVUiDZpmLCG2P66ro0V8W DPaMLYuYGC0pMM2vJ6obX lnbjogbGVmdDsgdmVydGl iIPwbRAaaT442 IHRvcDsnPlBhdGllbnQgT zItTBo6R9DjCoa1CCHusK omQS1zqTDpVElhCh6efGg zmDnmUK0dJIIb awyei785CzPqz1wvTAUll JWrCXvlGEM9U17be1L4FN IdYDDaAAQ0uSB7sF5hsFn nbjogbGVmdDsg bxMotLarAVvgAMmrN638X HRvcDsnPkJpcnRoIERhdG J6NS10ZO01jJUet1E8xAK 2Q2SpJJPikvbs sbsrcOV8DBBbJVMjrU14N a9hvByyXi4lYTMkADH2NL SsmNPkR7EjhT8bSvPkUZC dQSWrB2TstSBe RZxuF389VKjgBcZ3MSBmt dTjZ7WcSNPfdGmrBmY4p0 Z9Co5RD1R0FO58XO13zCS cj4X9iWF9O5Xt AVHgcrfcwkpdqOT4LDPcR OMzmR72Eq3nzXetNy5nBP OvAFM6BKPszJLdF2KdsR2 yOiAjMDAwMDAw F2LmbZNkBSluA575HRimQ wN4EMMsaaIuY1WtSOOxdW itHsI6r2T6Sj4LMGy8SN1 7DT15kBJvu4R1 tNZ0S7MjAMRxihewwovwl CV9XLGlUMUudL55Iv6ejW rsIl7kRRPaAWM7IDNylCM kV5GfjN2fSwXm AUUxKDWdK4CpdQZeFCowN 547ZGjtXzP3HGKsjcTeA3 ZbBHPrqPchLjJ6y5Q0Pw2 LAASeHP61XKS4 iBH7AC19CI76T0XmIhayj GFibGU+PHRhYmxlIHdpZH RoPScxMDAlJyBzdHlsZT0 mGk9wWBRwYSDw pLiwzBFoNfQta4ynAYNmZ UdhGJ8tkMxaN1TarMG8EK Uom5t4Gi03Z69dM5IqiNB +WROxkWZ1oVV1 aY8dLbFmRmD3QQxpF120B tDwoPLnZidle0sie5znbL b3WbL9FURcffGynXjoFRW 0c7XbFi60O55a IHdpZHRoPSIxNSUiIHZhb Wmjjn0fbG2cFd9+PGNvbC N2jBH2aP1pWlUfHdS0JKw mT476YkXkvLNv Zwbuy9isb7jtyGa2HnSiS XYhvxMjwGbfBHS0i9BlSr 01B0ZxgMzkd4WtXmc0lp5 7fCJke6E0nVL0 S2CjORLrdrnbuNWmaQkiO O2qGPJpznxsHSSigZ8tUD IfP9t5ZsWdVoD7DLgnL3B rrqB2TJPfmLRn JGgiFIO2P52ol5L9EXQnJ CCcLKE7iOO5rQ9crHoenm ogbGVmdDsgdmVydGljYWw fKIwlV836GUYf vUvmGDGwkZ2zHONmiTDyn EpmGE5vTUIeuuorQsrBGH ZGZ95KW0zPQBMMATVPCSA 5Z7DySyd4LUUa qTyqWV1lnSVdWSjmUt5se UabhWyqUK8eAXWrezukXH HfeM3rHEPkzFQqwIknGX9 tOZOroglol238 BpQfLJT9CQYqlXRyD6Ncx R0wVrIxJJEeEPRaJ4CqxJ WmVCyqK523QEufQmW1MBO wapOcJ8HuJZQe xGqgNjK4q9N5Dj3wNp8yO F0wRTNbXC60DI09qSVee1 P2yGP1G8EqOEDbsvvkchf icAZ6LHNkXIId hW16dADcVNlaGh9pd8B8m 945ITKtSIGtuD71Gl7iiC qwMTFkqMAYkO1nyfsnp5k vcjogIzAwMDAw QEo2AWx7CUDmsEyqQpIfQ HP3XaQ7VYL6fEZdxB0hdA dfvpriiE6oUbl+MjAgWWV csbQ9U6XsQge6 MTTwzJzfBN0xdBBdCAqoP l9hnHcfsQceCO2wRVAuij utKUDeyB9xDBSvkMTaaJa dZS1qOKWtcvgs s250OyJgPAX1ZEHfsSSyN 9DiaY2vFnSoMHIyFQDgD4 QugICnOEzhZ845QTmgZuU 4QENvwoEaN1Ud MUTuqIglVwK8q3O0Gm8TM B6tcXI3W1PfFks6SZPnhP orOV6uzBRaJJviRk8aqEz wiKfeLO2cXFSp avjxTIRdrO1uZLLzfUKbw LsaXV9sEUCgqszck955Rt QpLHK4CFOahPAcX6HibW9 yOiAjMDAwMDAw F7HikOAgIAxqS117IWizE uQ3CERuvyTwH3LcGCBopS iqNeR8s2T7Ms0KqXKvU0Z uZ2h5C1NxBfbd dHI+RI38DFVqPP22vECvx UKka7cyhVz8SnOkRWPkQQ I7qUucWAktc6TsEYYzI82 upEPpl5Y3GHSv bVzpsECkWnTnfCA9mH6iI Wauynwyn7ojgkhwPfjfc1 tbbo43mO26P61uOVjeKRC oPSIzMCUiIHZh cPjxrv3rpT3cUj6+PGNvb FM2lWP2yL8zEhLrEtS4SV jaT154SjZnkJFiFdzfw5n lr6sujKr0LyUc QNIvjtNzpBczDLG0m9SbJ q86S02yZFvcGYDfSWAqRU TiUFWthUfehi1eeN6jOc1 +HR1ri5vfxz30 pA85zDS+TMEmELY0nWfrU IizWLLfsI8pDQyaPqF2MO PmUhSvpN66iIQhJCskQd3 yvYqkqQwlGD3b VYUppxazs160CqTeq6zqL XBzbKDfUWbuQIE3T74vd1 W4CLRdNUTmYAF0tMT1sV5 hbGlnbjogbGVm dDsgdmVydGljYWwtYWxpZ 451LOVumGppKvUauMNtW8 marcXOUX9aKqkowAC+PHR yNLS4lSpjAGdk AZLqsV0gODQbM8f3SiTcV fX1ARvxY9KrzcM3VJUyoV OkIMRqeSCXiY1teqxed4o vcjogIzAwMDAw ZCa8LHk8ZYZsxAgmCmRcI RD6GvT2VTV4gVDdoK7iqE yjylkvkF2zRkr+RklOOjw vdGQ+PHRkIHN0 dTqcKPqcNZTngB6iKIWbZ 6a3HkDfWcY4KUbsN8Zfqn P3USLcwNQhONQxyECBaC8 xizdlf3vcrmge EuGtXUJtSCx9PSh7PVAwn BxsMaXeHOU4XlC8AQW2iO YouV6eiHkjmvetfE6hYlm +TVJOOjwvdGQ+ LUPrSFV7yWqwADizCYCdz T0yZMAwD9i6ZtZqEmR7TM aqK3WlgoD9IQLfhRLlUNK lwBXWfK8stokn r7rglmqmFsHcVGKvTWo8G Xw3UXOozMcoFbZrJFU6Ov B9AYI0aJNvvW1cfPergpd kzD8fIkr+UGF5 ZSG4YJ39KA26F5BcMtwff GFibGU+PHRhYmxlIHdpZH RoPScxMDAlJyBzdHlsZT0 uOa6rDYVsFKMs bGxh (more content not included)... Normal [facility] CBC AUTO DIFFon 04-13-2022 BASO # 0.1 103/ul Normal 0.0-0.1 [facility] Comment on above: Performed By: #### C VDTBH #### [facility] [address] [place] [address] Dr. Reema Mireles Basophils/100 WBC (Bld) 0.6 % Normal 0.2-2.0 [facility] Comment on above: Performed By: #### C VDTBH #### [facility] [address] [place] [address] Dr. Reema Mireles EO # 0.0 103/ul Normal 0.0-0.7 [facility] Comment on above: Performed By: #### C VDTBH #### [facility] [address] [place] [address] Dr. Reema Mireles Eosinophils/100 WBC (Bld) 0.2 % Critically low 0.9-7.0 [facility] Comment on above: Performed By: #### C VDTBH #### [facility] [address] [place] [address] Dr. Reema Mireles Erythrocyte distribution width (RBC) [Ratio] 11.4 % Normal 11.0-15.0 [facility] Comment on above: Performed By: #### C VDTBH #### [facility] [address] [place] [address] Dr. Reema Mireles Hematocrit (Bld) [Volume fraction] 38.3 % Normal 36.0-48.0 [facility] Comment on above: Performed By: #### C VDTBH #### [facility] [address] [place] [address] Dr. Reema Mireles Hemoglobin (Bld) [Mass/Vol] 13.4 g/dL Normal 12.0-16.0 [facility] Comment on above: Performed By: #### C VDTBH #### [facility] [address] [address] [address] Reema Mireles IG # 0.01 10e3/ul Normal 0.00-0.03 [facility] Comment on above: Performed By: #### C VDTBH #### [facility] [address] [place] [address] Dr. Reema Mireles IG % 0.1 % Normal 0.0-0.5 [facility] Comment on above: Performed By: #### C VDTBH #### [facility] [address] [place] [address] Dr. Reema Mireles LYMPH # 1.8 103/ul Normal 1.2-3.8 [facility] Comment on above: Performed By: #### C VDTBH #### [facility] [address] [place] [address] Dr. Reema Mireles Lymphocytes/100 WBC (Bld) 22.2 % Normal 20.5-60.0 [facility] Comment on above: Performed By: #### C VDTBH #### [facility] [address] [place] [address] Dr. Reema Mireles MANUAL DIFF REQ NO Normal [facility] Comment on above: Performed By: #### C VDTBH #### [facility] [address] [place] [address] Dr. Reema Mireles MCH (RBC) [Entitic mass] 30.6 pg Normal 26.7-34.0 [facility] Comment on above: Performed By: #### C VDTBH #### [facility] [address] [place] [address] Dr. Reema Mireles MCHC (RBC) [Mass/Vol] 35.0 g/dL Normal 29.9-35.2 [facility] Comment on above: Performed By: #### C VDTBH #### [facility] [address] [place] [address] Dr. Reema Mireles MCV (RBC) [Entitic vol] 87.4 fL Normal 81.0-99.0 [facility] Comment on above: Performed By: #### C VDTBH #### [facility] [address] [address] [address] Reema Mireles MONO # 0.7 103/ul Normal 0.3-0.8 [facility] Comment on above: Performed By: #### C VDTBH #### [facility] [address] [place] [address] Dr. Reema Mireles Monocytes/100 WBC (Bld) 8.2 % Normal 1.7-12.0 [facility] Comment on above: Performed By: #### C VDTBH #### [facility] [address] [place] [address] Dr. Reema Mireles NEUT # 5.5 103/ul Normal 1.4-6.5 [facility] Comment on above: Performed By: #### C VDTBH #### [facility] [address] [place] [address] Dr. Reema Mireles Neutrophils/100 WBC (Bld) 68.7 % Normal 43.0-75.0 [facility] Comment on above: Performed By: #### C VDTBH #### [facility] [address] [place] [address] Dr. Reema Mireles Platelet mean volume (Bld) [Entitic vol] 10.1 fL Normal 9.5-13.5 [facility] Comment on above: Performed By: #### C VDTBH #### [facility] [facility] [address] [place] [address] Dr. Reema Mireles PLT 404 103/ul Normal 150-450 [facility] Comment on above: Performed By: #### C VDTBH #### [facility] [address] [place] [address] Dr. Reema Mireles RBC 4.38 106/ul Normal 4.20-5.40 [facility] Comment on above: Performed By: #### C VDTBH #### [facility] [address] [place] [address] Dr. Reema Mireles WBC 8.0 103/ul Normal 4.0-11.0 [facility] Comment on above: Performed By: #### C VDTBH #### [facility] [address] [address] HEAD WO CONon 04-13-2022 CT HEAD WO CON EXAMINATION: CT HEAD WO CON HISTORY: HEADACHE COMPARISON: None. TECHNIQUE: CT examination of the head without IV contrast. Dose reduction techniques were achieved by using automated exposure control and/or adjustment of mA and/or kV according to patient size and/or use of iterative reconstruction technique. FINDINGS: Ventricles are normal in size. There is no hemorrhage, infarct or mass effect Visualized sinuses and mastoids are clear, maxillary sinuses are not visualized. The visualized orbits are unremarkable. IMPRESSION: No acute findings Electronically authenticated by: AURELIA CARLOS Date: 2022-04-13 16:29 Normal [facility] Discharge Instructionson Discharge Instructions [id number]:127 Normal [facility] ED Note-Physicianon 04-13-20 ED Note-Physician Basic Information Time Seen: Lata Hardy M.D. 04/12/2022 19:56 Chief Complaint Pt. presents to the ed with c/o headache and vertigo since thursday. Pt. was seen at [facility] and started on prednisone. pt. stopped taking it because it wasn't making her feel better. History of Present Illness The patient is a 21-year-old female who presented to the emergency room with dizziness and headache. The patient describes the dizziness as vertigo. She states she feels like she is spinning. She said her dizziness is worse when she is standing. The patient states she was seen at [facility] discharged home. She went to urgent care who prescribed her prednisone. She took it for 2 days and she did not like the side effect and she stopped it. She seen also her primary doctor who prescribed her meclizine which helped. The patient states today she started developing headache. She points to the front of her head. She described it as pressure. She states she has been having pressure in her ears as well. The patient denies any difficulty swallowing. She reports nausea but no vomiting. The patient denies any sore throat, denies any runny nose. The patient denies any chance of being . The patient denies any other associated symptoms. Review of Systems Additional ROS info: Except as noted in the above Review of Systems and in the History of Present Illness all other systems have been reviewed and are negative or noncontributory. Physical Exam Vitals & Measurements T: 37.4 ?C(Oral) HR: 90(Peripheral) RR: 18 BP: 118/84 SpO2: 98% HT: 165.0 cm HT: 165 cm WT: 95.5 kg WT: 95.5 kg BMI: 35.08 General: alert, no acute distress Skin: warm, dry Head: no trauma, normocephalic Neck: Trachea midline, no tenderness, supple, no meningeal signs Eye: normal conjunctiva, sclera clear, PERRL, EOMI, vision unchanged ENMT: TM's clear, oral mucosa moist, no pharyngeal erythema or exudate Cardiovascular: regular rate and rhythm Respiratory: Lungs CTA, respirations non labored, breath sounds equal Gastrointestinal: soft, non distended, no tenderness, no guarding Extremities: no deformity, no trauma Neurological: Alert and oriented, CN II-XII intact, motor strength equal & normal bilaterally, sensation equal & normal bilaterally, speech normal, no focal neuro deficits, normal coordination Psychiatric: cooperative, affect appropriate for age, Medical Decision Making The patient presented with vertigo. The patient has no neurological deficit. She has been seen at [facility] and started on prednisone. Possible her symptoms are due to labyrinthitis. The patient reported a headache. I offered IV pain medication and the patient refused. She is requesting ibuprofen. She wants to go home and she will follow-up with her primary doctor. She is instructed to return to the emergency room if her symptoms get worse or any new symptoms. Assessment/Plan 1. Vertigo (R42: Dizziness and giddiness) 2. Headache (R51.9: Headache, unspecified) Orders: ibuprofen, 600 mg = 1 tab(s), Tab, Oral, Once, Stop date 04/12/22 20:42:00 EDT, STAT, Start date 04/12/22 20:42:00 EDT, 04/12/22 20:42:00 EDT Medications Administered Given ibuprofen 600 mg Tab, 600 mg, Oral Disposition Plan Patient Discharge Condition Stable Discharge Disposition Discharged home Discharge Prescription List Prescriptions No active prescription medications Follow-up With When Contact Information ADRYAN MOORE In 3 days 04/15/2022 EDT [address] [place] [address]- Business (1) Additional Instructions: Return to the emergency room if her headache gets worse, vertigo becomes persistent or any new symptoms Patient Education General Headache Without Cause Vertigo Problem List/Past Medical History Ongoing No qualifying data Historical No qualifying data Medications Inpatient No active inpatient medications Home No active home medications Allergies sulfa drugs (High fever) Lab Results No qualifying data available. Diagnostic Results No qualifying data available. Normal [facility] Comment on above: Result Comment: Elec tronically Signed By: Antony Villa, Lata Baxter\.br\Date and Time Signed: 04/13/22 04:56 EDT ER URINE PROFILEon 2 Bilirubin Ql (U) Negative Normal NEGATIVE [facility] Comment on above: Performed By: #### P REGU, ERUR #### [facility] [address] [place] [address] Dr. Reema Mireles Clarity (U) CLEAR Normal CLEAR [facility] Comment on above: Performed By: #### P REGU, ERUR #### [facility] [address] [address] [address] Reema Mireles Color (U) LT. YELLOW Normal YELLOW [facility] Comment on above: Performed By: #### P REGU, ERUR #### [facility] [address] [place] [address] Dr. Reema Mireles ERUAHD A micrscopic examination will be performed if indicated. Normal [facility] Comment on above: Performed By: #### P REGU, ERUR #### [facility] [address] [address] [address] Reema Mireles Glucose Ql (U) Negative Normal NEGATIVE [facility] Comment on above: Performed By: #### P REGU, ERUR #### [facility] [address] [address] [address] Reema Mireles Hemoglobin Ql (U) Negative Normal NEGATIVE [facility] Comment on above: Performed By: #### P REGU, ERUR #### [facility] [address] [place] [address] Dr. Reema Mireles Ketones Ql (U) Negative Normal NEGATIVE [facility] Comment on above: Performed By: #### P REGU, ERUR #### [facility] [address] [place] [address] Dr. Reema Mireles LEUKOCYTES Negative Normal NEGATIVE [facility] Comment on above: Performed By: #### P REGU, ERUR #### [facility] [address] [address] [address] Reema Mireles Nitrite Ql (U) Negative Normal NEGATIVE [facility] Comment on above: Performed By: #### P REGU, ERUR #### [facility] [address] [place] [address] Dr. Reema Mireles pH (U) 6.5 [pH] Normal 5-9 [facility] Comment on above: Performed By: #### P REGU, ERUR #### [facility] [address] [place] [address] Dr. Reema Mireles SPEC GRAVITY 1.005 Normal 1.005-<=1.025 [facility] Comment on above: Performed By: #### P REGU, ERUR #### [facility] [address] [place] [address] Dr. Reema Mireles UA PROTEIN Negative Normal NEGATIVE/ TRACE [facility] Comment on above: Performed By: #### P REGU, ERUR #### [facility] [address] [place] [address] Dr. Reema Mireles UR MICRO IND NOT INDICATED Normal [facility] Comment on above: Performed By: #### P REGU, ERUR #### [facility] [address] [place] [address] Dr. Reema Mireles Urobilinogen Qn (U) 0.2 {Renny'U}/dL Normal 0.2 - 1. 0 [facility] Comment on above: Performed By: #### P REGU, ERUR #### [facility] [address] [place] [address] Dr. Reema Mireles URon 04-13-2022 , QUAL Negative Normal NEGATIVE [facility] Comment on above: Performed By: #### P REGU, ERUR #### [facility] [address] [address] [address] Reema Mireles PROF CHEM 8 (BAS METB)on Anion gap [Moles/Vol] 14.0 mmol/L Normal [facility] Comment on above: Performed By: #### B MP, TSH #### [facility] [address] [place] [address] Dr. Reema Mireles Calcium [Mass/Vol] 9.2 mg/dL Normal 8.5-10.1 [facility] Comment on above: Performed By: #### B MP, TSH #### [facility] [address] [place] [address] Dr. Reema Mireles Chloride [Moles/Vol] 102 mmol/L Normal 98-107 [facility] Comment on above: Performed By: #### B MP, TSH #### [facility] [address] [place] [address] Dr. Reema Mireles CO2 [Moles/Vol] 26.3 mmol/L Normal 21.0-32.0 [facility] Comment on above: Performed By: #### B MP, TSH #### [facility] [address] [place] [address] Dr. Reema Mireles Creatinine [Mass/Vol] 0.65 mg/dL Normal 0.55-1.02 [facility] Comment on above: Performed By: #### B MP, TSH #### [facility] [address] [place] [address] Dr. Reema Mireles EGFR-AF STATELESS >60 Normal >=60 [facility] Comment on above: Performed By: #### B MP, TSH #### [facility] [address] [place] [address] Dr. Reema Mireles EGFR-NON AF STATELESS >60 Normal >=60 [facility] Comment on above: Performed By: #### B MP, TSH #### [facility] [address] [place] [address] Dr. Reema Mireles Glucose [Mass/Vol] 92 mg/dL Normal 74-106 [facility] Comment on above: Performed By: #### B MP, TSH #### [facility] [address] [address] [address] Reema Mireles Potassium [Moles/Vol] 3.3 mmol/L Critically low 3.5-5.1 [facility] Comment on above: Performed By: #### B MP, TSH #### [facility] [address] [id number] Reema Mireles Sodium [Moles/Vol] 139 mmol/L Normal 136-145 [facility] Comment on above: Performed By: #### B GURPREET, TSH #### [facility] [address] [place] [address] Dr. Reema Mireles Urea nitrogen [Mass/Vol] 8.0 mg/dL Normal 7.0-18.0 [facility] Comment on above: Performed By: #### B GURPREET, TSH #### [facility] [address] [place] [address] Dr. Reema Mireles Urea nitrogen/Creatinine [Mass ratio] 12.3 mg/mg Normal [facility] Comment on above: Performed By: #### B GURPREET, TSH #### [facility] [address] [place] [address] Dr. Reema Mireles TSHon 04-13-2022 TSH 1.293 uIU/mL Normal 0.358-3.740 [facility] Comment on above: Performed By: #### B GURPREET, TSH #### [facility] [address] [place] [address] Dr. Reema Mireles Consent for Treatmenton 03-28 Consent for Treatment [id number]:127 Normal [facility] ED Clinical Summaryon 2021 ED Clinical Summary [address] [address] ED Clinical Summary Person Information Name: JUANPABLO CHAPARRO [place] Age: 21 Years : 2000 Sex: Female Language: Hungarian PCP: ADRYAN MOORE MD Marital Status: Single Phone: [phone] Visit Id: Visit Reason: Vertigo - recurrent; Headache; WEAKNESS Speciality: Acuity: 3 Enc Type: Emergency Med Service: Emergency Arrival: 04/12/2022 19:22:40 Discharge: 04/12/2022 21:07:34 LOS: 000 01:45 Checkin: 04/12/2022 19:22:40 Checkout: 04/12/2022 21:07:34 Dispo Type: Home (Routine DC) EVENTS: Event Name Event Status Request Date/Time Start Date/Time Complete Date/Time Arrive Complete 04/12/2022 19:22:40 04/12/2022 19:22:40 04/12/2022 19:22:40 Document Home Meds Request 04/12/2022 19:22:40 Triage Complete 04/12/2022 19:22:40 04/12/2022 19:51:30 04/12/2022 19:51:30 Registration Complete 04/12/2022 19:31:21 04/12/2022 19:31:21 04/12/2022 19:31:21 Reg Complete Request 04/12/2022 19:31:21 Reg Bed Request Complete 04/12/2022 19:31:21 04/12/2022 19:31:21 04/12/2022 19:31:21 Bed Assign Complete 04/12/2022 19:47:26 04/12/2022 19:47:26 04/12/2022 19:47:26 Dr Exam Complete 04/12/2022 19:47:26 04/12/2022 19:56:10 04/12/2022 19:56:10 RN Exam Complete 04/12/2022 19:47:26 04/12/2022 20:46:13 04/12/2022 20:46:13 Isolation Screening Request 04/12/2022 19:51:30 Registration Complete 04/12/2022 19:56:10 04/12/2022 20:37:08 04/12/2022 20:37:08 Meds Admin Cancel 04/12/2022 20:15:45 04/12/2022 20:43:15 Meds Admin Complete 04/12/2022 20:42:45 04/12/2022 20:53:00 Discharge Complete 04/12/2022 20:55:37 04/12/2022 21:07:38 04/12/2022 21:07:38 Transfer Complete 04/12/2022 21:07:38 04/12/2022 21:07:38 04/12/2022 21:07:38 ADDRESS: [address] [place] [id number] PHYS DOC NOTES: MEDICAL INFORMATION: Prescriptions Given: PATIENT EDUCATION INFORMATION: Instructions: General Headache Without Cause; Vertigo Follow up: With: Address: When: ADRYAN AMINJAILENE [address] [place], [place] [id number] [employer] (1) In 3 days 04/15/2022 Comments: Return to the emergency room if her headache gets worse, vertigo becomes persistent or any new symptoms DIAGNOSIS: 1:Vertigo; 2:Headache Normal [facility] ED Patient Education Noteon 04-12-2022 ED Patient Education Note ENT Vertigo Vertigo is the feeling that you or your surroundings are moving when they are not. This feeling can come and go at any time. Vertigo often goes away on its own. Vertigo can be dangerous if it occurs while you are doing something that could endanger you or others, such as driving or operating machinery. Your health care provider will do tests to determine the cause of your vertigo. Tests will also help your health care provider decide how best to treat your condition. Follow these instructions at home: Eating and drinking ? Drink enough fluid to keep your urine pale yellow. ? Do not drink alcohol. Activity ? Return to your normal activities as told by your health care provider. Ask your health care provider what activities are safe for you. ? In the morning, first sit up on the side of the bed. When you feel okay, stand slowly while you hold onto something until you know that your balance is fine. ? Move slowly. Avoid sudden body or head movements or certain positions, as told by your health care provider. ? If you have trouble walking or keeping your balance, try using a cane for stability. If you feel dizzy or unstable, sit down right away. ? Avoid doing any tasks that would cause danger to you or others if vertigo occurs. ? Avoid bending down if you feel dizzy. Place items in your home so that they are easy for you to reach without leaning over. ? Do not drive or use heavy machinery if you feel dizzy. General instructions ? Take hfiz-uly-eghgnem and prescription medicines only as told by your health care provider. ? Keep all follow-up visits as told by your health care provider. This is important. Contact a health care provider if: ? Your medicines do not relieve your vertigo or they make it worse. ? You have a fever. ? Your condition gets worse or you develop new symptoms. ? Your family or friends notice any behavioral changes. ? Your nausea or vomiting gets worse. ? You have numbness or a prickling and tingling sensation in part of your body. Get help right away if you: ? Have difficulty moving or speaking. ? Are always dizzy. ? Faint. ? Develop severe headaches. ? Have weakness in your hands, arms, or legs. ? Have changes in your hearing or vision. ? Develop a stiff neck. ? Develop sensitivity to light. Summary ? Vertigo is the feeling that you or your surroundings are moving when they are not. ? Your health care provider will do tests to determine the cause of your vertigo. ? Follow instructions for home care. You may be told to avoid certain tasks, positions, or movements. ? Contact a health care provider if your medicines do not relieve your symptoms, or if you have a fever, nausea, vomiting, or changes in behavior. ? Get help right away if you have severe headaches or difficulty speaking, or you develop hearing or vision problems. This information is not intended to replace advice given to you by your health care provider. Make sure you discuss any questions you have with your health care provider. Document Released: 06/24/2006 Document Revised: 08/08/2019 Document Reviewed: 08/08/2019 Elsevier Patient Education ? 2020 [employer] Neurology General Headache Without Cause A headache is pain or discomfort felt around the head or neck area. The specific cause of a headache may not be found. There are many causes and types of headaches. A few common ones are: ? Tension headaches. ? Migraine headaches. ? Cluster headaches. ? Chronic daily headaches. Follow these instructions at home: Watch your condition for any changes. Let your health care provider know about them. Take these steps to help with your condition: Managing pain ? Take iyzo-iff-cltgtbk and prescription medicines only as told by your health care provider. ? Lie down in a dark, quiet room when you have a headache. ? If directed, put ice on your head and neck area: ? Put ice in a plastic bag. ? Place a towel between your skin and the bag. ? Leave the ice on for 20 minutes, 2?3 times per day. ? If directed, apply heat to the affected area. Use the heat source that your health care provider recommends, such as a moist heat pack or a heating pad. ? Place a towel between your skin and the heat source. ? Leave the heat on for 20?30 minutes. ? Remove the heat if your skin turns bright red. This is especially important if you are unable to feel pain, heat, or cold. You may have a greater risk of getting burned. ? Keep lights dim if bright lights bother you or make your headaches worse. Eating and drinking ? Eat meals on a regular schedule. ? If you drink alcohol: ? Limit how much you use to: ? 0?1 drink a day for women. ? 0?2 drinks a day for men. ? Be aware of how much alcohol is in your drink. In the [place] one drink equals one 12 oz bottle of beer (more content not included)... Normal [facility] ED Patient Summaryon 022 ED Patient Summary [address] [address] Patient Discharge Instructions Person Information Name: JUANPABLO CHAPARRO Age: 21 Years Arrival Date: 04/12/2022 19:22:40 Discharge Diagnosis: 1:Vertigo; 2:Headache Primary Care Physician: ADRYAN MOORE MD Provider Information Primary Provider: Lata Hardy M.D. Advanced Manager Environmental Health:None The exam and treatment you received in the Emergency Department were for an urgent problem and are not intended as complete care. It is important that you follow up with a doctor, nurse practitioner, or physician?s academic support assistant for ongoing care. If your symptoms become worse or you do not improve as expected and you are unable to reach your usual health care provider, you should return to the Emergency Department. We are available 24 hours a day. JUANPABLO CHAPARRO has been given the following list of patient education materials, prescriptions and follow-up instructions: Follow-up Instructions: With: Address: When: ADRYAN MOORE [address] [place] [address] [employer] ([employer] In 3 days 04/15/2022 Comments: Return to the emergency room if her headache gets worse, vertigo becomes persistent or any new symptoms In the event that this physician does not participate in your insurance network, please consult with your insurance company to find a nearby participating provider. Patient Education Materials: General Headache Without Cause; Vertigo A MESSAGE TO ALL PATIENTS REGARDING OPIOIDS PRESCRIPTION OPIOIDS: WHAT YOU NEED TO KNOW Prescription opioids can be used to help relieve iextdjch-ak-ulwxpa pain and are often prescribed following a surgery or injury, or for certain health conditions. These medications can be an important part of the treatment but also come with serious risks. It is important to work with your healthcare provider to make sure you are getting the safest, most effective care. WHAT ARE THE RISKS AND SIDE EFFECTS OF OPIOID USE? Prescription opioids carry serious risks of addiction and overdose, especially with prolonged use. An opioid overdose, often marked by slowed breathing, can cause sudden . The use of prescription opioids can have a number of side effects as well, even when taken as directed: ? Tolerance?meaning you might need to take more of the medication for the same pain relief ? Physical dependence?meaning you have symptoms of withdrawal when a medication is stopped ? Increased sensitivity to pain ? Constipation ? Nausea, vomiting, and dry mouth ? Sleepiness and dizziness ? Confusion ? Depression ? Low levels of testosterone that can result in lower sex drive, energy, and strength ? Itching and sweating RISKS ARE GREATER WITH: ? History of drug misuse, substance use disorder, or overdose ? Mental health conditions (such as depression or anxiety) ? Sleep apnea ? Older age (65 years and older) ? Avoid alcohol while taking prescription opioids. Also, unless specifically advised by your health care provider, medications to avoid include: ? Benzodiazepines (such as Xanax or Valium) ? Muscle relaxants (such as Soma or Flexeril) ? Hypnotics (such as Ambien or Lunesta) ? Other prescription opioids KNOW YOUR OPTIONS Talk to your health care provider about ways to manage your pain that don?t involve prescription opioids. Some of these options may actually work better and have fewer risks and side effects. Options may include: ? Pain relievers such as acetaminophen, ibuprofen, and naproxen ? Some medication that are also used for depression or seizures ? Physical therapy and exercise ? Cognitive behavioral therapy, a psychological, goal-directed approach, in which patients learn how to modify physical, behavioral, and emotional triggers of pain and stress. IF YOU ARE PRESCRIBED OPIOIDS FOR PAIN: ? Never take opioids in greater amounts or more often than prescribed. ? Follow up with your primary health care provider. o Work together to create a plan on how to manage your pain. o Talk about ways to help manage your pain that don?t involve prescription opioids. o Talk about any and all concerns and side effects. ? Help prevent misuse and abuse o Never sell or share prescription opioids. o Never use another person?s prescription opioids. ? Store prescription opioids in a secure place and out of reach of others (this may include visitors, children, friends, and family). ? Safely dispose of unused prescription opioids: Find your community drug take-back program or your pharmacy mail-back program, or flush them down the toilet, following guidance from the Food and Drug Administration (www.fda.gov/Drugs/Re sourcesForYou). ? Visit www.cdc.gov/drugoverd ose to learn about the risks of opioids abuse and overdose. ? If you believe you may be struggling with addiction, tel (more content not included)... Normal [facility] CBC AUTO DIFFon 04-09-2022 BASO # 0.1 103/ul Normal 0.0-0.1 [facility] Comment on above: Performed By: #### B MP, TSH #### [facility] [address] [address] [address] Reema Mireles Basophils/100 WBC (Bld) 0.5 % Normal 0.2-2.0 [facility] Comment on above: Performed By: #### B MP, TSH #### [facility] [address] [address] [address] Reema Mireles EO # 0.1 103/ul Normal 0.0-0.7 [facility] Comment on above: Performed By: #### B MP, TSH #### [facility] [address] [place] [address] Dr. Reema Mireles Eosinophils/100 WBC (Bld) 1.0 % Normal 0.9-7.0 [facility] Comment on above: Performed By: #### B MP, TSH #### [facility] [address] [place] [address] Dr. Reema Mireles Erythrocyte distribution width (RBC) [Ratio] 11.7 % Normal 11.0-15.0 [facility] Comment on above: Performed By: #### B MP, TSH #### [facility] [address] [place] [address] Dr. Reema Mireles Hematocrit (Bld) [Volume fraction] 37.2 % Normal 36.0-48.0 [facility] Comment on above: Performed By: #### B GURPREET, TSH #### [facility] [address] [place] [address] Dr. Reema Mireles Hemoglobin (Bld) [Mass/Vol] 12.8 g/dL Normal 12.0-16.0 [facility] Comment on above: Performed By: #### B GURPREET, TSH #### [facility] [address] [place] [address] Dr. Reema Mireles IG # 0.02 10e3/ul Normal 0.00-0.03 [facility] Comment on above: Performed By: #### B GURPREET, TSH #### [facility] [address] [place] [address] Dr. Reema Mireles IG % 0.2 % Normal 0.0-0.5 [facility] Comment on above: Performed By: #### B MP, TSH #### [facility] [address] [place] [address] Dr. Reema Mireles LYMPH # 1.8 103/ul Normal 1.2-3.8 [facility] Comment on above: Performed By: #### B MP, TSH #### [facility] [address] [place] [address] Dr. Reema Mireles Lymphocytes/100 WBC (Bld) 19.0 % Critically low 20.5-60.0 [facility] Comment on above: Performed By: #### B MP, TSH #### [facility] [address] [place] [address] Dr. Reema Mireles MANUAL DIFF REQ NO Normal [facility] Comment on above: Performed By: #### B MP, TSH #### [facility] [address] [place] [address] Dr. Reema Mireles MCH (RBC) [Entitic mass] 30.4 pg Normal 26.7-34.0 [facility] Comment on above: Performed By: #### B GURPREET, TSH #### [facility] [address] [place] [address] Dr. Reema Mireles MCHC (RBC) [Mass/Vol] 34.4 g/dL Normal 29.9-35.2 [facility] Comment on above: Performed By: #### B GURPREET, TSH #### [facility] [address] [place] [address] Dr. Reema Mireles MCV (RBC) [Entitic vol] 88.4 fL Normal 81.0-99.0 [facility] Comment on above: Performed By: #### B GURPREET, TSH #### [facility] [address] [place] [address] Dr. Reema Mireles MONO # 0.7 103/ul Normal 0.3-0.8 [facility] Comment on above: Performed By: #### B GURPREET, TSH #### [facility] [address] [place] [address] Dr. Reema Mireles Monocytes/100 WBC (Bld) 6.8 % Normal 1.7-12.0 [facility] Comment on above: Performed By: #### B GURPREET, TSH #### [facility] [address] [place] [address] Dr. Reema Mireles NEUT # 7.0 103/ul Critically high 1.4-6.5 [facility] Comment on above: Performed By: #### B MP, TSH #### [facility] [address] [place] [address] Dr. Reema Mireles Neutrophils/100 WBC (Bld) 72.5 % Normal 43.0-75.0 [facility] Comment on above: Performed By: #### Inna VÁZQUEZ, TSH #### [facility] [address] [place] [address] Dr. Reema Mireles Platelet mean volume (Bld) [Entitic vol] 10.3 fL Normal 9.5-13.5 [facility] Comment on above: Performed By: #### Inna VÁZQUEZ, TSH #### [facility] [address] [place] [address] Dr. Reema Mireles PLT 358 103/ul Normal 150-450 [facility] Comment on above: Performed By: #### Inna VÁZQUEZ, TSH #### [facility] [address] [place] [address] Dr. Reema Mireles RBC 4.21 106/ul Normal 4.20-5.40 [facility] Comment on above: Performed By: #### Inna VÁZQUEZ, TSH #### [facility] [address] [place] [address] Dr. Reema Mireles WBC 9.7 103/ul Normal 4.0-11.0 [facility] Comment on above: Performed By: #### Inna VÁZQUEZ, TSH #### [facility] [address] [place] [address] Dr. Reema Mireles CULTURE BLOODon 04-09-2022 Microscopic examination of blood, culture Culture Observations: NO GROWTH AT 5 DAYS. Normal [facility] Comment on above: Performed By: #### Inna VÁZQUEZ, TSH #### [facility] [address] [place] [address] Dr. Reema Mireles ER URINE PROFILEon 2 Bilirubin Ql (U) Negative Normal NEGATIVE [facility] Comment on above: Performed By: #### Inna VÁZQUEZ, TSH #### [facility] [address] [place] [address] Dr. Reema Mireles Clarity (U) CLEAR Normal CLEAR [facility] Comment on above: Performed By: #### Inna VÁZQUEZ, TSH #### [facility] [address] [place] [address] Dr. Reema Mireles Color (U) LT. YELLOW Normal YELLOW [facility] Comment on above: Performed By: #### B MP, TSH #### [facility] [address] [place] [address] Dr. Reema ELIZALDE A micrscopic examination will be performed if indicated. Normal [facility] Comment on above: Performed By: #### B MP, TSH #### [facility] [address] [place] [address] Dr. Reema Mireles Glucose Ql (U) Negative Normal NEGATIVE [facility] Comment on above: Performed By: #### B MP, TSH #### [facility] [address] [place] [address] Dr. Reema Mireles Hemoglobin Ql (U) TRACE-INTACT Abnormal NEGATIVE [facility] Comment on above: Performed By: #### B MP, TSH #### [facility] [address] [place] [address] Dr. Reema Mireles Ketones Ql (U) Negative Normal NEGATIVE [facility] Comment on above: Performed By: #### B MP, TSH #### [facility] [address] [place] [address] Dr. Reema Mireles LEUKOCYTES Negative Normal NEGATIVE [facility] Comment on above: Performed By: #### B MP, TSH #### [facility] [address] [place] [address] Dr. Reema Mireles Nitrite Ql (U) Negative Normal NEGATIVE [facility] Comment on above: Performed By: #### B MP, TSH #### [facility] [address] [place] [address] Dr. Reema Mireles pH (U) 5.5 [pH] Normal 5-9 [facility] Comment on above: Performed By: #### B MP, TSH #### [facility] [address] [place] [address] Dr. Reema Mireles SPEC GRAVITY <=1.005 Abnormal 1.005-<=1.025 [facility] Comment on above: Performed By: #### B MP, TSH #### [facility] [address] [place] [address] Dr. Reema Mireles UA PROTEIN Negative Normal NEGATIVE/ TRACE [facility] Comment on above: Performed By: #### B MP, TSH #### [facility] [address] [place] [address] Dr. Reema Mireles UR MICRO IND INDICATED Normal [facility] Comment on above: Performed By: #### B MP, TSH #### [facility] [address] [place] [address] Dr. Reema Mireles Urobilinogen Qn (U) 0.2 {Renny'U}/dL Normal 0.2 - 1. 0 [facility] Comment on above: Performed By: #### B MP, TSH #### [facility] [address] [place] [address] Dr. Reema Mireles LACTATE/LACTIC ACIDon 2021 Lactate [Moles/Vol] 2.2 mmol/L Critically high 0.4-1.9 [facility] Comment on above: Performed By: #### B MP, TSH #### [facility] [address] [place] [address] Dr. Reema Mireles URon 04-09-2022 , QUAL Negative Normal NEGATIVE [facility] Comment on above: Performed By: #### B MP, TSH #### [facility] [address] [place] [address] Dr. Reema Mireles PROF 14(COMP METB)on 022 Albumin [Mass/Vol] 4.5 g/dL Normal 3.4-5.0 [facility] Comment on above: Performed By: #### C MP #### [facility] [address] [place] [address] Dr. Reema Mireles Albumin/Globulin [Mass ratio] 1.3 {ratio} Normal [facility] Comment on above: Performed By: #### C MP #### [facility] [address] [place] [address] Dr. Reema Mireles ALP [Catalytic activity/Vol] 83 U/L Normal 46-116 [facility] Comment on above: Performed By: #### C MP #### [facility] [address] [place] [address] Dr. Reema Mireles ALT [Catalytic activity/Vol] 26 U/L Normal 14-59 [facility] Comment on above: Performed By: #### C MP #### [facility] [address] [address] [address] Reema Mireles Anion gap [Moles/Vol] 14.9 mmol/L Normal [facility] Comment on above: Performed By: #### C MP #### [facility] [address] [address] [address] Reema Mireles AST [Catalytic activity/Vol] 12 U/L Critically low 15-37 [facility] Comment on above: Performed By: #### C MP #### [facility] [address] [place] [address] Dr. Reema Mireles Bilirubin [Mass/Vol] 0.3 mg/dL Normal 0.2-1.0 [facility] Comment on above: Performed By: #### C MP #### [facility] [address] [place] [address] Dr. Reema Mireles Calcium [Mass/Vol] 9.6 mg/dL Normal 8.5-10.1 [facility] Comment on above: Performed By: #### C MP #### [facility] [address] [place] [address] Dr. Reema Mireles Chloride [Moles/Vol] 103 mmol/L Normal 98-107 [facility] Comment on above: Performed By: #### C MP #### [facility] [address] [place] [address] Dr. Reema Mireles CO2 [Moles/Vol] 24.4 mmol/L Normal 21.0-32.0 [facility] Comment on above: Performed By: #### C MP #### [facility] [address] [place] [address] Dr. Reema Mireles Creatinine [Mass/Vol] 0.87 mg/dL Normal 0.55-1.02 [facility] Comment on above: Performed By: #### C MP #### [facility] [address] [place] [address] Dr. Reema Mireles EGFR-AF STATELESS >60 Normal >=[address] [facility] Comment on above: Performed By: #### C MP #### [facility] [address] [address] [address] Reema Mireles EGFR-NON AF STATELESS >60 Normal >=60 [facility] Comment on above: Performed By: #### C MP #### [facility] [address] [address] [address] Reema Mireles Globulin (S) [Mass/Vol] 3.5 g/dL Normal [facility] Comment on above: Performed By: #### C MP #### [facility] [address] [address] [address] Reema Mireles Glucose [Mass/Vol] 109 mg/dL Critically high 74-106 [facility] Comment on above: Performed By: #### C MP #### [facility] [address] [place] [address] Dr. Reema Mireles Potassium [Moles/Vol] 3.3 mmol/L Critically low 3.5-5.1 [facility] Comment on above: Performed By: #### C MP #### [facility] [address] [address] [address] Reema Mireles Protein [Mass/Vol] 8.0 g/dL Normal 6.4-8.2 [facility] Comment on above: Performed By: #### C MP #### [facility] [address] [address] [address] Reema Mireles Sodium [Moles/Vol] 139 mmol/L Normal 136-145 [facility] Comment on above: Performed By: #### C MP #### [facility] [address] [address] [address] Reema Mireles Urea nitrogen [Mass/Vol] 9.0 mg/dL Normal 7.0-18.0 [facility] Comment on above: Performed By: #### C MP #### [facility] [address] [address] [address] Reema Mireles Urea nitrogen/Creatinine [Mass ratio] 10.3 mg/mg Normal [facility] Comment on above: Performed By: #### C MP #### [facility] [address] [place] [address] Dr. Reema Mireles URINE MICROSCOPIC ONLYon BACTERIA NONE SEEN Normal NONE SEEN [facility] Comment on above: Performed By: #### B MP, TSH #### [facility] [address] [place] [address] Dr. Reema Mireles Bacteria identified Cx Nom (U) NOT INDICATED Normal [facility] Comment on above: Performed By: #### B MP, TSH #### [facility] [address] [place] [address] Dr. Reema Mireles CAST NONE SEEN Normal NONE SEEN [facility] Comment on above: Performed By: #### B MP, TSH #### [facility] [address] [place] [address] Dr. Reema Mireles Crystals LM Nom (Urine sed) NONE SEEN Normal NONE SEEN [facility] Comment on above: Performed By: #### B MP, TSH #### [facility] [address] [place] [address] Dr. Reema Mireles Epithelial cells LM Ql (Urine sed) RARE Normal NONE SEEN /RARE [facility] Comment on above: Performed By: #### B MP, TSH #### [facility] [address] [place] [address] Dr. Reema Mireles MUCOUS NONE SEEN Normal NONE SEEN [facility] Comment on above: Performed By: #### B MP, TSH #### [facility] [address] [place] [address] Dr. Reema Mireles RBC 0-2 Normal 0-2 [facility] Comment on above: Performed By: #### B MP, TSH #### [facility] [address] [place] [address] Dr. Reema Mireles WBC NONE SEEN Normal NONE SEEN [facility] Comment on above: Performed By: #### B MP, TSH #### [facility] [address] [place] [address] Dr. Reema Mireles CBC AUTO DIFFon 10-25-2021 BASO # 0.0 103/ul Normal 0.0-0.1 [facility] Comment on above: Performed By: #### C BC #### [facility] [address] [address] [address] Reema Mireles Basophils/100 WBC (Bld) 0.6 % Normal 0.2-2.0 [facility] Comment on above: Performed By: #### C BC #### [facility] [address] [place] [address] Dr. Reema Mireles EO # 0.1 103/ul Normal 0.0-0.7 [facility] Comment on above: Performed By: #### C BC #### [facility] [address] [place] [address] Dr. Reema Mireles Eosinophils/100 WBC (Bld) 1.8 % Normal 0.9-7.0 [facility] Comment on above: Performed By: #### C BC #### [facility] [address] [place] [address] Dr. Reema Mireles Erythrocyte distribution width (RBC) [Ratio] 11.9 % Normal 11.0-15.0 [facility] Comment on above: Performed By: #### C BC #### [facility] [address] [place] [address] Dr. Reema Mireles Hematocrit (Bld) [Volume fraction] 38.1 % Normal 36.0-48.0 [facility] Comment on above: Performed By: #### C BC #### [facility] [address] [place] [address] Dr. Reema Mireles Hemoglobin (Bld) [Mass/Vol] 13.1 g/dL Normal 12.0-16.0 [facility] Comment on above: Performed By: #### C BC #### [facility] [address] [place] [address] Dr. Reema Mireles IG # 0.01 10e3/ul Normal 0.00-0.03 [facility] Comment on above: Performed By: #### C BC #### [facility] [address] [place] [address] Dr. Reema Mireles IG % 0.1 % Normal 0.0-0.5 [facility] Comment on above: Performed By: #### C BC #### [facility] [address] [place] [address] Dr. Reema Mireles LYMPH # 1.9 103/ul Normal 1.2-3.8 [facility] Comment on above: Performed By: #### C BC #### [facility] [address] [place] [address] Dr. Reema Mireles Lymphocytes/100 WBC (Bld) 27.8 % Normal 20.5-60.0 [facility] Comment on above: Performed By: #### C BC #### [facility] [address] [place] [address] Dr. Reema Mireles MANUAL DIFF REQ NO Normal [facility] Comment on above: Performed By: #### C BC #### [facility] [address] [place] [address] Dr. Reema Mireles MCH (RBC) [Entitic mass] 30.5 pg Normal 26.7-34.0 [facility] Comment on above: Performed By: #### C BC #### [facility] [address] [place] [address] Dr. Reema Mireles MCHC (RBC) [Mass/Vol] 34.4 g/dL Normal 29.9-35.2 [facility] Comment on above: Performed By: #### C BC #### [facility] [address] [place] [address] Dr. Reema Mireles MCV (RBC) [Entitic vol] 88.8 fL Normal 81.0-99.0 [facility] Comment on above: Performed By: #### C BC #### [facility] [address] [place] [address] Dr. Reema Mireles MONO # 0.8 103/ul Normal 0.3-0.8 [facility] Comment on above: Performed By: #### C BC #### [facility] [address] [place] [address] Dr. Reema Mireles Monocytes/100 WBC (Bld) 11.2 % Normal 1.7-12.0 [facility] Comment on above: Performed By: #### C BC #### [facility] [address] [place] [address] Dr. Reema Mireles NEUT # 4.0 103/ul Normal 1.4-6.5 [facility] Comment on above: Performed By: #### C BC #### [facility] [address] [place] [address] Dr. Reema Mireles Neutrophils/100 WBC (Bld) 58.5 % Normal 43.0-75.0 [facility] Comment on above: Performed By: #### C BC #### [facility] [address] [place] [address] Dr. Reema Mireles Platelet mean volume (Bld) [Entitic vol] 10.0 fL Normal 9.5-13.5 [facility] [facility] Comment on above: Performed By: #### C BC #### [facility] [address] [place] [address] Dr. Reema Mireles PLT 361 103/ul Normal 150-450 [facility] Comment on above: Performed By: #### C BC #### [facility] [address] [place] [address] Dr. Reema Mireles RBC 4.29 106/ul Normal 4.20-5.40 [facility] Comment on above: Performed By: #### C BC #### [facility] [address] [place] [address] Dr. Reema Mireles WBC 6.8 103/ul Normal 4.0-11.0 [facility] Comment on above: Performed By: #### C BC #### [facility] [address] [place] [address] Dr. Reema Mireles PREG QUANT HCGon 10-25-2021 HCG QUANT 1 mIU/mL Normal [facility] Comment on above: Performed By: #### P REGQNT #### [facility] [address] [place] [address] Dr. Reema Mireles HCG RANGE SEE BELOW Normal [facility] Comment on above: Result Comment: 5-50 0-1 WEEK 40-300 1-2 WEEKS 100-1,000 2-3 WEEKS 500-6,000 3-4 WEEKS 5,000-200,000 1-2 MONTHS 10,000-100,000 2-3 MONTHS 3,000-50,000 2ND TRIMESTER 1,000-50,000 3RD TRIMESTER Performed By: #### P REGQNT #### [facility] [address] [place] [address] [id number] [address] Reema Mireles Covid-19 PCR ([facility])on 09-29 SARS-CoV-2 (COVID-19) RNA FRANKIE+probe Ql (Unsp spec) Not detected Normal NOT DETECTED [facility] Comment on above: Result Comment: This test is not yet approved or cleared by the [place] FDA. When there are no FDA-approved or cleared tests available, and other criteria are met, FDA can make tests available under an emergency access mechanism called an Emergency Use Authorization (EUA). The EUA for this test is supported by the Case Manager Specialist of Health and Human Service's (HHS's) declaration that circumstances exist to justify the emergency use of in vitro diagnostics for the detection and/or diagnosis of the virus that causes COVID-19. This EUA will remain in effect (meaning this test can be used) for the duration of the COVID-19 declaration justifying emergency of IVDs, unless it is terminated or revoked by FDA (after which the test may no longer be used). When diagnostic testing is negative, the possibility of a false negative should be considered in the context of a patient's recent exposures and the presence of clinical signs and symptoms consistent with SARS-CoV-2. Performed By: #### C VDTB #### [facility] [address] [place], [place] [address] Dr. Reema Mireles Vital Signs Date Time Vital Sign Value Performing Clinician Facility 04-12-2022 21:04-0400 Diastolic blood pressure 84 mm[Hg] [facility] 04-12-2022 21:04-0400 Heart rate 82 /min [facility] 04-12-2022 21:04-0400 Respiratory rate 16 /min [facility] 04-12-2022 21:04-0400 SaO2% (BldA) [Mass fraction] 98 % [facility] 04-12-2022 21:04-0400 Systolic blood pressure 120 mm[Hg] [facility] 04-12-2022 20:32-0400 gluc 80 mg/dL [facility] Comment on above: Result Comment: not taken due to pt refu jimmie of any injection 04-12-2022 20:32-0400 gluc [facility] 04-12-2022 19:25-0400 Body temperature 99.32 [degF] [facility] 04-12-2022 19:25-0400 Diastolic blood pressure 84 mm[Hg] [facility] 04-12-2022 19:25-0400 Heart rate 90 /min [facility] 04-12-2022 19:25-0400 Respiratory rate 18 /min [facility] 04-12-2022 19:25-0400 SaO2% (BldA) [Mass fraction] 98 % [facility] 04-12-2022 19:25-0400 Systolic blood pressure 118 mm[Hg] [facility] 04-09-2022 12:20-0400 Body height 165.1 cm Deonna aBck Other [facility] Other 04-09-2022 12:20-0400 Body mass index (BMI) [Ratio] 35.61 kg/m2 Deonna Back Other [facility] Other 04-09-2022 12:20-0400 Body temperature 98.4 [degF] Deonna Back Other [facility] Other 04-09-2022 12:20-0400 Body weight 97.07 kg Deonna Back Other [facility] Other 04-09-2022 12:20-0400 Diastolic blood pressure 83 mm[Hg] Deonna Nazanin Other [facility] Other 04-09-2022 12:20-0400 Respiratory rate 18 /min Deonna Nazanin Other [facility] Other 04-09-2022 12:20-0400 SaO2% (BldA) [Mass fraction] 99 % Deonna Nazanin Other [facility] Other 04-09-2022 12:20-0400 Systolic blood pressure 135 mm[Hg] Deonna Nazanin Other [facility] Other 04-02-2022 19:00-0400 Body height 165.1 cm Deonna Nazanin Other [facility] Other 04-02-2022 19:00-0400 Body mass index (BMI) [Ratio] 35.71 kg/m2 Deonna Nazanin Other [facility] Other 04-02-2022 19:00-0400 Body temperature 98.1 [degF] Deonna Nazanin Other [facility] Other 04-02-2022 19:00-0400 Body weight 97.34 kg Deonna Nazanin Other [facility] Other 04-02-2022 19:00-0400 Diastolic blood pressure 83 mm[Hg] Deonna Nazanin Other [facility] Other 04-02-2022 19:00-0400 Respiratory rate 18 /min Deonna Nazanin Other [facility] Other 04-02-2022 19:00-0400 SaO2% (BldA) [Mass fraction] 100 % Deonna Back Other [facility] Other 04-02-2022 19:00-0400 Systolic blood pressure 134 mm[Hg] Deonna Nazanin Other [facility] Other Encounters Encounter Date Encounter Type Care Provider Facility Start: 08-13-2023 End: 08-13-2023 ambulatory BLANCA LEOS Not Available Start: 09-14-2022 End: 09-14-[address] LUIS ANTONIO SUTTON Facility:[facility] Start: 08-11-2022 End: 08-12-[address] LUIS ANTONIO SUTTON Facility:[facility] Start: 08-09-2022 End: 08-09-[address] ADRYAN MOORE Facility:[facility] Start: 08-08-2022 End: 08-08-[address] LUIS ANTONIO SUTTON Facility:[facility] Start: 04-16-2022 End: 04-16-[address] ADRYAN MOORE Facility:[facility] Start: 04-15-2022 End: 04-15-[address] ADRYAN MOORE Facility:[facility] Start: 04-13-2022 End: 04-13-[address] ADRYAN MOORE Facility:[facility] Start: 04-12-2022 End: 04-12-2022 Emergency department patient visit Kimberleealisa Baxter Antony [facility] Start: 04-10-2022 End: 04-10-2022 ambulatory Deonna Back Other [facility] Other Start: 04-10-2022 Telephone encounter Deonna Back [facility] Start: 04-09-2022 End: 04-09-2022 ambulatory Deonna Back Other [facility] Other Start: 04-09-2022 Office outpatient vi sit 15 minutes Deonna Back [facility] Start: 04-09-2022 End: 04-09-[address] LUIS ANTONIO SUTTON Facility:[facility] Start: 04-02-2022 (URG) Urgent Care Visit Deonna Silva katelynn [facility] Start: 04-02-2022 End: 04-02-2022 ambulatory Deonna Back Other [facility] Other Start: 10-25-2021 End: 10-25-[address] ADRYAN MOORE Facility:[facility] Start: 10-24-2021 Encounter for preprocedural laboratory examination DR DEVAN TELLO [facility] Start: 10-22-2021 End: 10-23-[address] ADRYAN MOORE Facility:[facility] Start: 10-22-2021 End: 10-23-2021 Encounter for preprocedural laboratory examination DR ADRYAN MOORE Facility:[facility] Start: 10-19-2021 Encounter for other preprocedural examination DR DEVAN TELLO [facility] Start: 10-17-2021 End: 10-18-[address] ADRYAN MOORE Facility:[facility] Start: 10-17-2021 End: 10-18-2021 Encounter for other preprocedural examination DR ADRYAN MOORE Facility:[facility] Payers Date Payer Category Payer Medicaid [id number] 2001 Unknown [id number] 2.16.84 [id number] 2001 Unknown [id number] 2.16.84 [id number] 2001 Unknown [id number] 2.16.84 [id number] 2001 Unknown [id number] 2.16.84 [id number] 2001 Unknown [id number] 2.16.84 [id number] 2001 Unknown [id number] 2.16.84 [id number] 2001 Unknown [id number] 2.16.84 [id number] 2001 Unknown [id number] 2.16.84 [id number] 2001 Unknown [id number] 2.16.84 [id number] 2001 Unknown [id number] 2.16.84 [id number] 2001 Unknown [id number] 2.16.84 [id number] 2001 Unknown [id number] 2.16.840 .[id number] 1958 [facility] [id number] Social History Date Type Detail Facility Unknown if ever smoked [facility] Other Sex Assigned At [facility] Other Tobacco smoking status No Smoking Status Entered [facility] Functional Status Date Assessment Result Facility 04-12-2022 Functional Status N/A [facility] Hospital Discharge instructions 04-12-2022 Note Date & Type Note Facility 04-12-2022 Hospital Discharg e instructions Patient Education 04/12/2022 21:07:38 General Headache Without Cause General Headache Without Cause A headache is pain or discomfort felt around the head or neck area. The specific cause of a headache may not be found. There are many causes and types of headaches. A few common ones are: Tension headaches. Migraine headaches. Cluster headaches. Chronic daily headaches. Follow these instructions at home: Watch your condition for any changes. Let your health care provider know about them. Take these steps to help with your condition: Managing pain Take phin-lvl-ljovrsd and prescription medicines only as told by your health care provider. Lie down in a dark, quiet room when you have a headache. If directed, put ice on your head and neck area: ?Put ice in a plastic bag. ?Place a towel between your skin and the bag. ?Leave the ice on for 20 minutes, 2 3 times per day. If directed, apply heat to the affected area. Use the heat source that your health care provider recommends, such as a moist heat pack or a heating pad. ?Place a towel between your skin and the heat source. ?Leave the heat on for 20 30 minutes. ?Remove the heat if your skin turns bright red. This is especially important if you are unable to feel pain, heat, or cold. You may have a greater risk of getting burned. Keep lights dim if bright lights bother you or make your headaches worse. Eating and drinking Eat meals on a regular schedule. If you drink alcohol: ?Limit how much you use to: ?0 1 drink a day for women. ? 0 2 drinks a day for men. ?Be aware of how much alcohol is in your drink. In the [place] one drink equals one 12 oz bottle of beer (355 mL), one 5 oz glass of wine (148 mL), or one 1 oz glass of hard liquor (44 mL). Stop drinking caffeine, or decrease the amount of caffeine you drink. General instructions Keep a headache journal to help find out what may trigger your headaches. For example, write down: ?What you eat and drink. ?How much sleep you get. ?Any change to your diet or medicines. Try massage or other relaxation techniques. Limit stress. Sit up straight, and do not tense your muscles. Do not use any products that contain nicotine or tobacco, such as cigarettes, e-cigarettes, and chewing tobacco. If you need help quitting, ask your health care provider. Exercise regularly as told by your health care provider. Sleep on a regular schedule. Get 7 9 hours of sleep each night, or the amount recommended by your health care provider. Keep all follow-up visits as told by your health care provider. This is important. Contact a health care provider if: Your symptoms are not helped by medicine. You have a headache that is different from the usual headache. You have nausea or you vomit. You have a fever. Get help right away if: Your headache becomes severe quickly. Your headache gets worse after moderate to intense physical activity. You have repeated vomiting. You have a stiff neck. You have a loss of vision. You have problems with speech. You have pain in the eye or ear. You have muscular weakness or loss of muscle control. You lose your balance or have trouble walking. You feel faint or pass out. You have confusion. You have a seizure. Summary A headache is pain or discomfort felt around the head or neck area. There are many causes and types of headaches. In some cases, the cause may not be found. Keep a headache journal to help find out what may trigger your headaches. Watch your condition for any changes. Let your health care provider know about them. Contact a health care provider if you have a headache that is different from the usual headache, or if your symptoms are not helped by medicine. Get help right away if your headache becomes severe, you vomit, you have a loss of vision, you lose your balance, or you have a seizure. This information is not intended to replace advice given to you by your health care provider. Make sure you discuss any questions you have with your health care provider. Document Released: 09/14/2006 Document Revised: 04/04/2019 Document Reviewed: 04/04/2019 [employer] Patient Education 2020 [employer] 04/12/2022 21:07:38 Vertigo Vertigo Vertigo is the feeling that you or your surroundings are moving when they are not. This feeling can come and go at any time. Vertigo often goes away on its own. Vertigo can be dangerous if it occurs while you are doing something that could endanger you or others, such as driving or operating machinery. Your health care provider will do tests to determine the cause of your vertigo. Tests will also help your health care provider decide how best to treat your condition. Follow these instructions at home: Eating and drinking Drink enough fluid to keep your urine pale yellow. Do not drink alcohol. Activity Return to your normal activities as told by your health care provider. Ask your health care provider what activities are safe for you. In the morning, first sit up on the side of the bed. When you feel okay, stand slowly while you hold onto something until you know that your balance is fine. Move slowly. Avoid sudden body or head movements or certain positions, as told by your health care provider. If you have trouble walking or keeping your balance, try using a cane for stability. If you feel dizzy or unstable, sit down right away. Avoid doing any tasks that would cause danger to you or others if vertigo occurs. Avoid bending down if you feel dizzy. Place items in your home so that they are easy for you to reach without leaning over. Do not drive or use heavy machinery if you feel dizzy. General instructions Take taxx-rgu-uhdbtlr and prescription medicines only as told by your health care provider. Keep all follow-up visits as told by your health care provider. This is important. Contact a health care provider if: Your medicines do not relieve your vertigo or they make it worse. You have a fever. Your condition gets worse or you develop new symptoms. Your family or friends notice any behavioral changes. Your nausea or vomiting gets worse. You have numbness or a prickling and tingling sensation in part of your body. Get help right away if you: Have difficulty moving or speaking. Are always dizzy. Faint. Develop severe headaches. Have weakness in your hands, arms, or legs. Have changes in your hearing or vision. Develop a stiff neck. Develop sensitivity to light. Summary Vertigo is the feeling that you or your surroundings are moving when they are not. Your health care provider will do tests to determine the cause of your vertigo. Follow instructions for home care. You may be told to avoid certain tasks, positions, or movements. Contact a health care provider if your medicines do not relieve your symptoms, or if you have a fever, nausea, vomiting, or changes in behavior. Get help right away if you have severe headaches or difficulty speaking, or you develop hearing or vision problems. This information is not intended to replace advice given to you by your health care provider. Make sure you discuss any questions you have with your health care provider. Document Released: 06/24/2006 Document Revised: 08/08/2019 Document Reviewed: 08/08/2019 [employer] Patient Education 2020 [employer]. Follow Up Care 04/12/2022 19:25:17 With:ADRYAN MOORE Address: [address] [place] [address] Business (1) When:04/15/2022 20:55:24 Comments:Return to the emergency room if her headache gets worse, vertigo becomes persistent or any new symptoms [facility] Evaluation note 04-09-2022 Note Date & Type Note Facility 04-09-2022 Evaluation note Encounter Date Diagnosis Assessment Notes Mar, Vertigo (ICD-10 - R42) Vertigo home care material was printed Drink plenty fluids, get plenty of rest. Take the prednisone as prescribed until gone. Use the Flonase inhaler as prescribed until your symptoms improve. Consider taking Estefany daily anterior symptoms improved. Follow-up with your family physician if no improvement in 2 to 3 days. Patient did receive an extensive work-up in the emergency room for these complaints yesterday. She was prescribed Zofran with no improvement. [facility] Other Evaluation note 04-02-2022 Note Date & Type Note Facility 04-02-2022 Evaluation note Encounter Date Diagnosis Assessment Notes Mar, Acute otitis externa of left ear, unspecified type (ICD-10 - H60.502) Otitis externa home care material was printed Drink plenty fluids, get plenty of rest. Use the eardrops as prescribed. Take Tylenol or Motrin as needed for aches pains or fevers. Follow-up with your family physician if no improvement in 2 to 3 days. No swimming for a week [facility] Other Clinical Note 10-25-2021 Note Date & Type Note Facility 10-25-2021 Note OPERATIVE NOTE PROCEDURE: Diagnostic laparoscopy. PREOPERATIVE DIAGNOSIS: Pelvic pain, dyspareunia dysmenorrhea. POSTOPERATIVE DIAGNOSIS: Pelvic pain, dyspareunia dysmenorrhea. ANESTHESIA: General. SURGEON: Devan Tello D.O. TEACHER OF THE HANDICAPPED: JAE Worley URINE OUTPUT: Yellow and clear. FINDINGS: Normal appearing simpson, uterus and tubes. No gross evidence of any cirrhosis. SPECIMEN: None. BLOOD LOSS: 5 mL. PROCEDURE: The patient was taken back to the Operating Room where she was placed in dorsal lithotomy position after given general anesthesia. The patient was prepped and draped in normal sterile fashion. A sponge stick was placed into the patient's vagina. Attention was turned to the patient's abdomen, where a small umbilical incision was made. The fascia was tented using Edilberto clamps and the fascia was entered sharply. Confirmation of intra-abdominal placement of the 10 mm port was confirmed under direct visualization using a laparoscope. The patient's abdomen was then insufflated using CO2 gas with approximately 4 liters. A second port was placed suprapubically two fingerbreadths above the symphysis pubis, this was done under direct visualization with a 5 mm port. Survey of the patient's abdomen demonstrated normal liver and gallbladder. Survey of the patient's pelvic anatomy demonstrated normal appearing ovaries and tubes as well as normal appearing uterus. No endometrial implants could be noted, no evidence of any pelvic disease was seen, normal appearing pelvic cavity. All instruments were removed from the patient's abdomen. The patient's abdomen was insufflated using CO2 gas. The patient tolerated the procedure well. Sponge stick was removed from the patient's vagina. The patient's infraumbilical fascia was closed using #0 Vicryl on a GI needle. The patient's skin was closed suprapubically and infraumbilically using 4-0 Vicryl. The patient tolerated the procedure well. Sponge, lap and needle counts were correct x 2. The patient taken to Recovery Room in stable condition. [facility] Signed and Approved by: DR DEVAN TELLO . 11/01/2021 17:31:00 [facility] Evaluation + Plan note Note Date & Type Note Facility Evaluation + Plan note No data available for this section [facility] Evaluation note Note Date & Type Note Facility Evaluation note No Information [facility] Other History general Narrative - Reported Note Date & Type Note Facility History general Narrative - Reported Type Medical History acid reflux Medical History headache Surgical History lip surgery Surgical History endometriosis Hospitalization History [facility] Other Progress note Note Date & Type Note Facility Progress note No data available for this section [facility] Summary Purpose Family History No Family History Records FoundNo Family History Records FoundNo Family History Records Found Advance Directives No Advanced Directives Records FoundNo Advanced Directives Records FoundNo Advanced Directives Records Found Additional Source Comments REASON FOR VISIT (unrecogniz ed section and content) LEFT EAR PAINDIZZY TO POINT OF NAUSEANo Information Care Team (unrecognized sect ion and content) Personnel Name: ADRYAN MOORE MD Address: [address] [place] [address] INFORMATION SOURCE (unrecogn ized section and content) DATE CREATED AUTHOR 04/26/2022 [facility] DATE CREATED AUTHOR AUTHOR'S ORGANIZ ATION 09/19/2022 [facility] DATE CREATED AUTHOR AUTHOR'S ORGANIZ ATION 08/15/2023 [facility] FOR RECORDS PERTAINING TO PATIENTS WHO ARE OR HAVE BEEN ENROLLED IN A CHEMICAL DEPENDENCY/SUBSTANCEABUSE PROGRAM, SOME INFORMATION MAY BE OMITTED. This clinical summary was aggregated from multiple sources. Caution should be exercised in using it in the provision of clinical care. This summary normalizes information from multiple sources, and as a consequence, information in this document may materially change the coding, format and clinical context of patient data. In addition, data may be omitted in some cases. CLINICAL DECISIONS SHOULD BE BASED ON THE PRIMARY CLINICAL RECORDS. [facility]. provides no warranty or guarantee of the accuracy or completeness of information in this document.
== END 2023-09-17 09:52 | disposition home or self-care (01) ==
LOC: US 09:51
PROVIDERS: PCP Family Medicine; Visit Provider Obstetrics & Gynecology
DX: Z36.89 Encounter for other specified antenatal screening (principal); Z3A.21 21 weeks gestation of pregnancy
CPT/HCPCS: 76805; 76817

== ENCOUNTER 2023-11-03 07:10 | Outpatient (OUT) | payer OTHER, SELFPAY ==
--- OUTSIDE RECORDS SUMMARY | 2023-11-03 07:16 | XMS_ITS | CCD ---
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 Name Role Phone Deonna Back Unavailable OSCAR, ADRYAN Primary Care Physician [phone] LESLEY, DR LUIS ANTONIO Jorge Consulting Unavailable LESLEY, DR LUIS ANTONIO Jorge Attending Unavailable DEFRANCE, DR CORNELIUS Primary Care Unavailable LESLEY, DR LUIS ANTONIO Jorge Admitting Unavailable DEFRANCE, DR CORNELIUS Primary Care Unavailable DIETER GONZALEZ Admitting Unavailable DIETER GONZALEZ Attending Unavailable CHIKA LEOS Consulting Unavailable DEFRANCE, DR CORNELIUS Primary Care Unavailable JORGE, DR BOLAÑOS Consulting Unavailable HAY, DR ESPINOZA [...] Jorge Attending Unavailable CHIKA BHAKTA Consulting Unavailable DEFJAILENE, DR CORNELIUS Primary Care Unavailable LESLEY, DR LUIS ANTONIO Jorge Admitting Unavailable DEFRANCE, DR CORNELIUS Primary Care Unavailable DIETER GONZALEZ Consulting Unavailable DIETER GONZALEZ Attending Unavailable DIETER GONZALEZ Admitting Unavailable BLANCA LEOS Attending Unavailable BLANCA ELOS Attending Unavailable DEVAN TELLO Attending Unavailable Allergies Allergy Classification Reported Allergen(s) Allergy Type Date of Onset Reaction(s) Facility (3 sources) Sulfacetamide Drug Allergy rash [employer] Other (1 source) Sulfonamides (Antibiotic); Translations: [sulfa drugs] Drug allergy Hyperpyrexia (finding) [facility] (1 source) Sulfonamides (Antibiotic) Drug allergy (disorder) 4 [facility] Repository Medications Current Medications Medication Drug [...] Drug Class(es) Dates Sig (Normalized) Sig (Original) [id number] 200 actuat albuterol 0.09 mg/actuat metered dose [...] / neomycin 3.5 mg/ml / polymyxin b 86113 unt/ml otic suspension (3 sources) Aminoglycoside Antibacterial, Polymyxin-class Antibacterial, Corticosteroid Start: 04-02-2022 Neomycin-Polymyx in-HC [id number] 3 drops left ear Three times a [...] 09-14-2022 BASO # 0.0 103/ul Normal 0.0-0.1 [facility] Comment on above: Performed By: #### B GURPREET, TSH #### [facility] [address] [place] [address] Dr. Reema Mireles Basophils/100 WBC (Bld) 0.6 % Normal 0.2-2.[address] [facility] Comment on above: Performed By: #### B MP, TSH #### [facility] [address] [address] [address] Reema Mireles EO # 0.0 103/ul Normal 0.0-0.[address] [facility] Comment on above: Performed By: #### B MP, TSH #### [facility] [address] [place] [address] Dr. Reema Mireles Eosinophils/100 WBC (Bld) 0.6 % Critically low 0.9-7.0 [facility] Comment on above: Performed By: #### B MP, TSH #### [facility] [address] [place] [address] Dr. Reema Mireles Erythrocyte distribution width (RBC) [Ratio] 11.9 % Normal 11.0-15.0 [facility] Comment on above: Performed By: #### B MP, TSH #### [facility] [address] [place] [address] Dr. Reema Mireles Hematocrit (Bld) [Volume fraction] 37.8 % Normal 36.0-48.0 [facility] Comment on above: Performed By: #### B MP, TSH #### [facility] [address] [place] [address] Dr. Reema Mireles Hemoglobin (Bld) [Mass/Vol] 13.5 g/dL Normal 12.0-16.0 [facility] Comment on above: Performed By: #### B MP, TSH #### [facility] [address] [place] [address] Dr. Reema Mireles IG # 0.01 10e3/ul Normal 0.00-0.03 [facility] Comment on above: Performed By: #### B MP, TSH #### [facility] [address] [place] [address] Dr. Reema Mireles IG % 0.2 % Normal 0.0-0.5 [facility] Comment on above: Performed By: #### B MP, TSH #### [facility] [address] [place] [address] Dr. Reema Mireles LYMPH # 1.6 103/ul Normal 1.2-3.8 [facility] Comment on above: Performed By: #### B MP, TSH #### [facility] [address] [place] [address] Dr. Reema Mireles Lymphocytes/100 WBC (Bld) 25.5 % Normal 20.5-60.0 [facility] Comment on above: Performed By: #### B MP, TSH #### [facility] [address] [place] [address] Dr. Reema Mireles MANUAL DIFF REQ NO Normal [facility] Comment on above: Performed By: #### B MP, TSH #### [facility] [address] [address] [address] Reema Mireles MCH (RBC) [Entitic mass] 30.9 pg Normal 26.7-34.0 [facility] Comment on above: Performed By: #### B MP, TSH #### [facility] [address] [place] [address] Dr. Reema Mireles MCHC (RBC) [Mass/Vol] 35.7 g/dL Critically high 29.9-35.[address] [facility] Comment on above: Performed By: #### B MP, TSH #### [facility] [address] [place] [address] Dr. Reema Mireles MCV (RBC) [Entitic vol] 86.5 fL Normal 81.0-99.0 [facility] Comment on above: Performed By: #### B MP, TSH #### [facility] [address] [place] [address] Dr. Reema Mireles MONO # 0.5 103/ul Normal 0.3-0.8 [facility] Comment on above: Performed By: #### B MP, TSH #### [facility] [address] [place] [address] Dr. Reema Mireles Monocytes/100 WBC (Bld) 8.5 % Normal 1.7-12.0 [facility] Comment on above: Performed By: #### B MP, TSH #### [facility] [address] [place] [address] Dr. Reema Mireles NEUT # 4.1 103/ul Normal 1.4-6.[address] [facility] Comment on above: Performed By: #### B MP, TSH #### [facility] [address] [place] [address] Dr. Reema Mireles Neutrophils/100 WBC (Bld) 64.6 % Normal 43.0-75.[address] [facility] Comment on above: Performed By: #### B MP, TSH #### [facility] [address] [place] [address] Dr. Reema Mireles Platelet mean volume (Bld) [Entitic vol] 9.9 fL Normal 9.5-13.5 [facility] Comment on above: Performed By: #### B MP, TSH #### [facility] [address] [place] [address] Dr. Reema Mireles PLT 403 103/ul Normal 150-450 [facility] Comment on above: Performed By: #### B MP, TSH #### [facility] [address] [address] [address] Reema Mireles RBC 4.37 106/ul Normal 4.20-5.40 [facility] Comment on above: Performed By: #### B MP, TSH #### [facility] [address] [place] [address] Dr. Reema Mireles WBC 6.3 103/ul Normal 4.0-11.0 [facility] Comment on above: Performed By: #### B MP, TSH #### [facility] [address] [place] [address] Dr. Reema Mireles PROF 14(COMP METB)on 022 Albumin [Mass/Vol] 4.3 g/dL Normal 3.4-5.0 [facility] Comment on above: Performed By: #### B GURPREET, TSH #### [facility] [address] [place] [address] Dr. Reema Mireles Albumin/Globulin [Mass ratio] 1.2 {ratio} Normal [facility] Comment on above: Performed By: #### B MP, TSH #### [facility] [address] [place] [address] Dr. Reema Mireles ALP [Catalytic activity/Vol] 79 U/L Normal 46-[address] [facility] Comment on above: Performed By: #### B MP, TSH #### [facility] [address] [place] [address] Dr. Reema Mireles ALT [Catalytic activity/Vol] 31 U/L Normal 14-59 [facility] Comment on above: Performed By: #### B MP, TSH #### [facility] [address] [place] [address] Dr. Reema Mireles Anion gap [Moles/Vol] 12.1 mmol/L Normal [facility] Comment on above: Performed By: #### B MP, TSH #### [facility] [address] [address] [address] Reema Mireles AST [Catalytic activity/Vol] 17 U/L Normal 15-37 [facility] Comment on above: Performed By: #### B MP, TSH #### [facility] [address] [address] [address] Reema Mireles Bilirubin [Mass/Vol] 0.4 mg/dL Normal 0.2-1.0 [facility] Comment on above: Performed By: #### B MP, TSH #### [facility] [address] [place] [address] Dr. Reema Mireles Calcium [Mass/Vol] 8.9 mg/dL Normal 8.5-10.1 [facility] Comment on above: Performed By: #### B MP, TSH #### [facility] [address] [place] [address] Dr. Reema Mireles Chloride [Moles/Vol] 98 mmol/L Normal 98-107 [facility] Comment on above: Performed By: #### B MP, TSH #### [facility] [address] [place] [address] Dr. Reema Mireles CO2 [Moles/Vol] 27.0 mmol/L Normal 21.0-32.0 [facility] Comment on above: Performed By: #### B MP, TSH #### [facility] [address] [place] [address] Dr. Reema Mireles Creatinine [Mass/Vol] 0.65 mg/dL Normal 0.55-1.02 [facility] Comment on above: Performed By: #### B MP, TSH #### [facility] [address] [place] [address] Dr. Reema Mireles EGFR-AF STATELESS >60 Normal >=60 [facility] Comment on above: Performed By: #### B MP, TSH #### [facility] [address] [place] [address] Dr. Reema Mireles EGFR-NON AF STATELESS >60 Normal >=60 [facility] Comment on above: Performed By: #### B MP, TSH #### [facility] [address] [address] [address] Reema Mireles Globulin (S) [Mass/Vol] 3.5 g/dL Normal [facility] Comment on above: Performed By: #### B MP, TSH #### [facility] [address] [address] [address] Reema Mireles Glucose [Mass/Vol] 106 mg/dL Normal 74-106 [facility] Comment on above: Performed By: #### B MP, TSH #### [facility] [address] [address] [address] Reema Mireles Potassium [Moles/Vol] 3.1 mmol/L Critically low 3.5-5.1 [facility] Comment on above: Performed By: #### B MP, TSH #### [facility] [address] [place] [address] Dr. Reema Mireles Protein [Mass/Vol] 7.8 g/dL Normal 6.4-8.2 [facility] Comment on above: Performed By: #### B MP, TSH #### [facility] [address] [address] [address] Reema Mireles Sodium [Moles/Vol] 134 mmol/L Critically low 136-145 [facility] Comment on above: Performed By: #### B MP, TSH #### [facility] [address] [address] [address] Reema Mireles Urea nitrogen [Mass/Vol] 6.0 mg/dL Critically low 7.0-18.0 [facility] Comment on above: Performed By: #### B MP, TSH #### [facility] [address] [address] [address] Reema Mireles Urea nitrogen/Creatinine [Mass ratio] 9.2 mg/mg Normal [facility] Comment on above: Performed By: #### B MP, TSH #### [facility] [address] [address] [address] Reema Mireles ACETONE SERUMon 08-11-2022 ACETONE Negative Normal NEGATIVE [facility] Comment on above: Performed By: #### B MP, TSH #### [facility] [address] [place] [address] Dr. Reema Mireles CBC AUTO DIFFon 08-11-2022 BASO # 0.1 103/ul Normal 0.0-0.1 [facility] Comment on above: Performed By: #### B MP, TSH #### [facility] [address] [place] [address] Dr. Reema Mireles Basophils/100 WBC (Bld) 0.5 % Normal 0.2-2.0 [facility] Comment on above: Performed By: #### B MP, TSH #### [facility] [address] [place] [address] Dr. Reema Mireles EO # 0.1 103/ul Normal 0.0-0.7 [facility] Comment on above: Performed By: #### B MP, TSH #### [facility] [address] [place] [address] Dr. Reema Mireles Eosinophils/100 WBC (Bld) 0.7 % Critically low 0.9-7.0 [facility] Comment on above: Performed By: #### B MP, TSH #### [facility] [address] [place] [address] Dr. Reema Mireles Erythrocyte distribution width (RBC) [Ratio] 11.7 % Normal 11.0-15.0 [facility] Comment on above: Performed By: #### B MP, TSH #### [facility] [address] [place] [address] Dr. Reema Mireles Hematocrit (Bld) [Volume fraction] 37.6 % Normal 36.0-48.0 [facility] Comment on above: Performed By: #### B MP, TSH #### [facility] [address] [place] [address] Dr. Reema Mireles Hemoglobin (Bld) [Mass/Vol] 13.1 g/dL Normal 12.0-16.0 [facility] Comment on above: Performed By: #### B MP, TSH #### [facility] [address] [place] [address] Dr. Reema Mireles IG # 0.02 10e3/ul Normal 0.00-0.03 [facility] Comment on above: Performed By: #### B MP, TSH #### [facility] [address] [place] [address] Dr. Reema Mireles IG % 0.2 % Normal 0.0-0.5 [facility] Comment on above: Performed By: #### B MP, TSH #### [facility] [address] [place] [address] Dr. Reema Mireles LYMPH # 2.7 103/ul Normal 1.2-3.8 [facility] Comment on above: Performed By: #### B MP, TSH #### [facility] [address] [place] [address] Dr. Reema Mireles Lymphocytes/100 WBC (Bld) 28.5 % Normal 20.5-60.0 [facility] Comment on above: Performed By: #### B MP, TSH #### [facility] [address] [place] [address] Dr. Reema Mireles MANUAL DIFF REQ NO Normal [facility] Comment on above: Performed By: #### B GURPREET, TSH #### [facility] [address] [place] [address] Dr. Reema Mireles MCH (RBC) [Entitic mass] 30.3 pg Normal 26.7-34.0 [facility] Comment on above: Performed By: #### B MP, TSH #### [facility] [address] [place] [address] Dr. Reema Mireles MCHC (RBC) [Mass/Vol] 34.8 g/dL Normal 29.9-35.2 [facility] Comment on above: Performed By: #### B MP, TSH #### [facility] [address] [place] [address] Dr. Reema Mireles MCV (RBC) [Entitic vol] 87.0 fL Normal 81.0-99.0 [facility] Comment on above: Performed By: #### B GURPREET, TSH #### [facility] [address] [place] [address] Dr. Reema Mireles MONO # 0.8 103/ul Normal 0.3-0.[address] [facility] Comment on above: Performed By: #### B GURPREET, TSH #### [facility] [address] [place] [address] Dr. Reema Mireles Monocytes/100 WBC (Bld) 8.2 % Normal 1.7-12.0 [facility] Comment on above: Performed By: #### B GURPREET, TSH #### [facility] [address] [place] [address] Dr. Reema Mireles NEUT # 5.9 103/ul Normal 1.4-6.5 [facility] Comment on above: Performed By: #### B GURPREET, TSH #### [facility] [address] [place] [address] Dr. Reema Mireles Neutrophils/100 WBC (Bld) 61.9 % Normal 43.0-75.0 [facility] Comment on above: Performed By: #### B GURPREET, TSH #### [facility] [address] [place] [address] Dr. Reema Mireles Platelet mean volume (Bld) [Entitic vol] 10.2 fL Normal 9.5-13.[address] [facility] Comment on above: Performed By: #### B GURPREET, TSH #### [facility] [address] [place] [address] Dr. Reema Mireles PLT 382 103/ul Normal 150-[address] [facility] Comment on above: Performed By: #### B GURPREET, TSH #### [facility] [address] [place] [address] Dr. Reema Mireles RBC 4.32 106/ul Normal 4.20-5.[address] [facility] Comment on above: Performed By: #### B GURPREET, TSH #### [facility] [address] [place] [address] Dr. Reema Mireles WBC 9.6 103/ul Normal 4.0-11.[address] [facility] Comment on above: Performed By: #### B GURPREET, TSH #### [facility] [address] [place] [address] Dr. Reema Mireles CRPon 08-11-2022 CRP [Mass/Vol] mg/L Normal <=1.0 [facility] Comment on above: Performed By: #### B MP, TSH #### [facility] [address] [place] [address] Dr. Reema MILLER URINE PROFILEon 2 Bilirubin Ql (U) Negative Normal NEGATIVE [facility] Comment on above: Performed By: #### B MP, TSH #### [facility] [address] [place] [address] Dr. Reema Mireles Clarity (U) CLEAR Normal CLEAR [facility] Comment on above: Performed By: #### B MP, TSH #### [facility] [address] [place] [address] Dr. Reema Mireles Color (U) LT. YELLOW Normal YELLOW [facility] Comment on above: Performed By: #### B MP, TSH #### [facility] [address] [place] [address] Dr. Reema RICHARDSONJohana A micrscopic examination will be performed if indicated. Normal [facility] Comment on above: Performed By: #### B MP, TSH #### [facility] [address] [place] [address] Dr. Reema Mireles Glucose Ql (U) Negative Normal NEGATIVE [facility] Comment on above: Performed By: #### B MP, TSH #### [facility] [address] [place] [address] Dr. Reema Mireles Hemoglobin Ql (U) Negative Normal NEGATIVE [facility] Comment on above: Performed By: #### B MP, TSH #### [facility] [address] [place] [address] Dr. Reema Mireles Ketones Ql (U) Negative Normal NEGATIVE [facility] Comment on above: Performed By: #### B MP, TSH #### [facility] [address] [place] [address] Dr. Reema Mireles LEUKOCYTES Negative Normal NEGATIVE [facility] Comment on above: Performed By: #### B MP, TSH #### [facility] [address] [place] [address] Dr. Reema Mireles Nitrite Ql (U) Negative Normal NEGATIVE [facility] Comment on above: Performed By: #### B MP, TSH #### [facility] [address] [place] [address] Dr. Reema Mireles pH (U) 5.5 [pH] Normal 5-9 [facility] Comment on above: Performed By: #### B MP, TSH #### [facility] [address] [place] [address] Dr. Reema Mireles SPEC GRAVITY <=1.005 Abnormal 1.005-<=1.025 [facility] Comment on above: Performed By: #### B MP, TSH #### [facility] [address] [place] [address] Dr. Reema Mireles UA PROTEIN Negative Normal NEGATIVE/ TRACE [facility] Comment on above: Performed By: #### B MP, TSH #### [facility] [address] [place] [address] Dr. Reema Mireles UR MICRO IND NOT INDICATED Normal [facility] Comment on above: Performed By: #### B MP, TSH #### [facility] [address] [place] [address] Dr. Reema Mireles Urobilinogen Qn (U) 0.2 {Renny'U}/dL Normal 0.2 - 1. 0 [facility] Comment on above: Performed By: #### B GURPREET, TSH #### [facility] [address] [place] [address] Dr. Reema Mireles LIPASEon 08-11-2022 Lipase [Catalytic activity/Vol] 71.0 U/L Critically low 73.0-393.0 [facility] Comment on above: Performed By: #### B MP, TSH #### [facility] [address] [place] [address] Dr. Reema Mireles URon 08-11-2022 , QUAL Negative Normal NEGATIVE [facility] Comment on above: Performed By: #### C VDTBH #### [facility] [address] [place] [address] Dr. Reema Mireles PROF 14(COMP METB)on 022 Albumin [Mass/Vol] 4.3 g/dL Normal 3.4-5.0 [facility] Comment on above: Performed By: #### B MP, TSH #### [facility] [address] [place] [address] Dr. Reema Mireles Albumin/Globulin [Mass ratio] 1.2 {ratio} Normal [facility] Comment on above: Performed By: #### B MP, TSH #### [facility] [address] [place] [address] Dr. Reema Mireles ALP [Catalytic activity/Vol] 70 U/L Normal 46-116 [facility] Comment on above: Performed By: #### B GURPREET, TSH #### [facility] [address] [place] [address] Dr. Reema Mireles ALT [Catalytic activity/Vol] 16 U/L Normal 14-59 [facility] Comment on above: Performed By: #### B GURPREET, TSH #### [facility] [address] [place] [address] Dr. Reema Mireles Anion gap [Moles/Vol] 10.5 mmol/L Normal [facility] Comment on above: Performed By: #### B GURPREET, TSH #### [facility] [address] [place] [address] Dr. Reema Mireles AST [Catalytic activity/Vol] 8 U/L Critically low 15-37 [facility] Comment on above: Performed By: #### B GURPREET, TSH #### [facility] [address] [address] [address] Reema Mireles Bilirubin [Mass/Vol] 0.3 mg/dL Normal 0.2-1.0 [facility] Comment on above: Performed By: #### B MP, TSH #### [facility] [address] [place] [address] Dr. Reema Mireles Calcium [Mass/Vol] 9.0 mg/dL Normal 8.5-10.1 [facility] Comment on above: Performed By: #### B GURPREET, TSH #### [facility] [address] [place] [address] Dr. Reema Mireles Chloride [Moles/Vol] 104 mmol/L Normal 98-[address] [facility] Comment on above: Performed By: #### B GURPREET, TSH #### [facility] [address] [place] [address] Dr. Reema Mireles CO2 [Moles/Vol] 26.5 mmol/L Normal 21.0-32.0 [facility] Comment on above: Performed By: #### B GURPREET, TSH #### [facility] [address] [place] [address] Dr. Reema Mireles Creatinine [Mass/Vol] 0.79 mg/dL Normal 0.55-1.02 [facility] Comment on above: Performed By: #### B GURPREET, TSH #### [facility] [address] [place] [address] Dr. Reema Mireles EGFR-AF STATELESS >60 Normal >=60 [facility] Comment on above: Performed By: #### B GURPREET, TSH #### [facility] [address] [place] [address] Dr. Reema Mireles EGFR-NON AF STATELESS >60 Normal >=60 [facility] Comment on above: Performed By: #### B GURPREET, TSH #### [facility] [address] [place] [address] Dr. Reema Mireles Globulin (S) [Mass/Vol] 3.5 g/dL Normal [facility] Comment on above: Performed By: #### B GURPREET, TSH #### [facility] [address] [place] [address] Dr. Reema Mireles Glucose [Mass/Vol] 106 mg/dL Normal 74-106 [facility] Comment on above: Performed By: #### B GURPREET, TSH #### [facility] [address] [place] [address] Dr. Reema Mireles Potassium [Moles/Vol] 3.0 mmol/L Critically low 3.5-5.1 [facility] Comment on above: Performed By: #### B GURPREET, TSH #### [facility] [address] [place] [address] Dr. Reema Mireles Protein [Mass/Vol] 7.8 g/dL Normal 6.4-8.2 [facility] Comment on above: Performed By: #### B MP, TSH #### [facility] [address] [place] [address] Dr. Reema Mireles Sodium [Moles/Vol] 138 mmol/L Normal 136-145 [facility] Comment on above: Performed By: #### B MP, TSH #### [facility] [address] [place] [address] Dr. Reema Mireles Urea nitrogen [Mass/Vol] 8.0 mg/dL Normal 7.0-18.0 [facility] Comment on above: Performed By: #### B MP, TSH #### [facility] [address] [place] [address] Dr. Reema Mireles Urea nitrogen/Creatinine [Mass ratio] 10.1 mg/mg Normal [facility] Comment on above: Performed By: #### B MP, TSH #### [facility] [address] [place] [address] Dr. Reema Mireles PROTIMEon 08-11-2022 INR Coag (PPP) [Relative time] 1.00 {INR} Normal [facility] Comment on above: Performed By: #### P T, PTT #### [facility] [address] [place] [address] Dr. Reema Mireles INR GUIDELINES SEE BELOW Normal [facility] Comment on above: Result Comment: FELICIANO RED INR: 2.0 - 3.0 CONDITIONS NOT LISTED BELOW 2.5 - 3.5 FOR PROSTHETIC HEART VALVE REPLACEMENT 2.5 - 3.5 RECURRENT THROMBOSIS Performed By: #### P T, PTT #### [facility] [address] [place] [address] Dr. Reema Mireles PT Coag (PPP) [Time] 10.8 s Normal 9.0-11.[address] [facility] Comment on above: Performed By: #### P T, PTT #### [facility] [address] [place] [address] Dr. Reema Mireles PTTon 08-11-2022 aPTT Coag (Bld) [Time] 30.8 s Normal 22.3-36.[address] [facility] Comment on above: Performed By: #### P T, PTT #### [facility] [address] [place] [address] Dr. Reema Mireles [facility] 10 mm/hr Normal <=20 [facility] Comment on above: Performed By: #### B MP, TSH #### [facility] [address] [place] [address] Dr. Reema Mireles TSHon 08-11-2022 TSH 3.313 uIU/mL Normal 0.358-3.740 [facility] Comment on above: Performed By: #### B MP, TSH #### [facility] [address] [place] [address] Dr. Reema Mireles Discharge Instructionson Discharge Instructions [id number]:127 Normal [facility] Comment on above: Other Comment: wrong patient STOOL CULTUREon 04-20-2022 Campylobacter Culture Final report Normal [facility] Comment on above: Performed By: #### B MP, TSH #### [facility] [address] [place] [address] Dr. Reema Mireles E coli Shiga Toxin EIA Negative Normal Negative [facility] Comment on above: Performed By: #### B MP, TSH #### [facility] [address] [place] [address] Dr. Reema Mireles Result 1 Comment Normal [facility] Comment on above: Result Comment: No S almonella or Shigella recovered. Performed By: #### B MP, TSH #### [facility] [address] [place] [address] Dr. Reema Mireles Result Comment: No C ampylobacter species isolated. Salmonella/Shigella Screen Final report Normal [facility] Comment on above: Performed By: #### B MP, TSH #### [facility] [address] [place] [address] Dr. Reema Mireles Coding Summary.on 04-14-2022 Coding Summary. CD:[id number] G h0bWw+PGhlYWQ+AJ4XQFK lU19jjHCrtE0AT4wGKN2F MCEHKRKLNV8YZM2zlIL8H SppN9MkjnAh IbobbLZwOG48PAr6HZV6k PnlLMhuvH2jmJEfE4c9Ge OuCY27aN92SElnKLIvFoW 3LjZpbjsgbWFy M6auExGfxVGaTae+PHRhY mxlIHdpZHRoPScxMDAlJy XnbHlyIN0iBb0lRYAoLHA vbGxhcHNlOiBj j4ivWDKyFRkjPT6hdLhhB 3HvaSR3IGYhp1k9Sa62xD I+GTKoFYM8cRdzBGovg22 7XyGtw8gxBMP7 yUTdZQviGSS3J05dq7D1O HZkHREpUYV6rHU2lA5bkP ylfldfI8HjtHOvKsY7DSO 5dWSnvS8dxShp neascT4pZch+E92AEC2VH NQPZK4UFba6J5TkEylvuZ I+RH58IUEiNK22yTBxeAH ym9nqpXb9QvCc OHAnGDF3rFytUPhri4ZpV QCsR74qcIJwe5D2AGXnaP osuAYxFxGywUW5cJ7kBOl xrelka5izlmgo Zuknw4uejg99xK69Y94uI EqjIITkCRQ5LJUjVFCzfZ cdko9fiS8pGf8+VGwww4b tr6jraNm5IdQg UTBxvpCuqLxwYCG3m6WvC o24I6HhrRywb8ZjGqq7sr 58pEYlc7M7iGW6OGktEAL mvM4nIZxzMeE6 CKEeLsIzsS99iZGjDYjxG c4orSjoxLdzYM6sTKSmyt rxBRVkbY1gKFSzaVNsrYv eBJ8kSFGirkmw j098SdKvHMP9URRhlFZsV 2RalU2jHdQaVBCdNSFpR8 PlwVIcKBokV338RPkxZtO 7LNAhkoPrI2Yh UMWnhEkfKcV8u5C7Bf7Km 4HtqllwMAK1MTrnBKA4Ht D8WmIuDgO2W3RbOnl7LRD raEmbCD2xB2Aj WSHebfqtcjlsmLZ3WQCgQ EMxdA40nBKmCDpzGn9fh6 M6c220KYWnTHCptC94Cp9 udDogMTBwdCBU gQ4gcuqwm8rwysecZwBuB KPaITq8NKi3QHRxbBzyYb EqFUZ0ShN2TEO0bMHktF1 xwBdyljlilI6f Oyc+X65vkK2uOEC0DXS4n gszRHVttpQuCM49CY40N5 RyPjwvdGFibGU+PGRpdiB suVnrFS3yIhOo s1ztj5KyAXshK1JcVHUvS BrnBbz8CSKeEEU7vXR0pO 1bEIOgJLumi6J6uOV2K4Q xgrShgd6py7jd BPTsJQjpU89qpIUbc8V1Y VIukUO2RAAnrCqxZaPshD 93Oyc+WAZbnWnaa6LtUzf sp8znm7bcoDk0 XmGmPRVpraIjkXcrKDZ4p 9QtSx16D66sSTpnOXZrON AjJQRgAJTldHzisc6guO2 wIi8+PGNvbCB3 kMN3qA2xZIIwJrB4YAgwH 745NvPrmJEqDgyhs1uxo9 azkIp9OkIzIORkewMkpQf aEUH5a4JdWy09 R66eKUcfESZaIZCsFEZtW ZLaiByyvf2qmO6rSf2+PC 7aa1rpti40sT97qJE+PHR qZAG2gQpqRXce ERVidT7pCBioSfP5NTKlD zFcwG80wYZgKYjjMz7pjK iakZpqBP5yMNLzwnrzr59 9FfQgn4whKFUo tWEjQRwaMYZ0J22kz2F9M BYhPVRcYLQ5eYS8mE0zsV lnbjogbGVmdDsgdmVydGl sLNlxFDjkE604 IHRvcDsnPlBhdGllbnQgT kQtSMi6E4OaZet2RFPerU lfWC4xaDUhOSnpBj0hgPy xtDjfNK1oMSUr ekkbm600RvLju7rqXMOkq DAeQMqcMOL8S46oe8K5AP GxKZNdMNG8jTG3nP0sqLu nbjogbGVmdDsg hrHmwMwvYTloQAouG869N HRvcDsnPkJpcnRoIERhdG C6WV83QS50cELwl2R1jEQ 3S0UrXDXzmxqe mwvngES2HXSaUVGngI88B a5zyWtbKj3yMQRwSXR4UU SauNKbW6WmoY8lEnZmZAQ kAKSfQ5IxaVDd UYleN293BPgbTmV7HNGqc cEpH2OiPVFqzRyaVxG0o5 W0Gw8FY3E4NX32SA66hGK em5U2mTI0Y5Jc JOVxbbbsmwfdhHK9GRYfH OUvrH09Hy0mpEfzCw6oHS OcZNL3CTIclBOoI4AiqJ6 yOiAjMDAwMDAw B4TedBTgIPydS388NFpyL bJ0CECwrsLsH0MxMGZenO foXcJ9m6F6Ix2YSZj0GI6 1HX01mSUhw8Y8 dCS3E4FgLVAdblweogbap LI8DUCwSNVszM51Hd3agU biUc1fEJLvMQR3OIJmpBD wN6JkoE6oEvLz TRTaZPWgT0KksLNqUPeqT 814ISpbIuG8RUUagrCuZ4 XpSJJknLtcSwW2t5L9Hx9 HDTMiWQ45JAD5 vJB1WI10VM47L2HkMizmr GFibGU+PHRhYmxlIHdpZH RoPScxMDAlJyBzdHlsZT0 kJs7pKTNnILTo jEgltQEaCoNtq6gsGCBuK JhxUE1fnHfxQ9MfkAE9XO Uap2v7Jr02O33bJ4BfpLC +UUVyxEK4dCW2 mI0jYhJoCyL0IPalI998F oWliBDiGzgue0rcs4ezbH h5ImK5ILKpzvPatNdvTND 2r1OxJd93Q73x IHdpZHRoPSIxNSUiIHZhb Tuftw8fnI6kWz8+PGNvbC M5tGN4nU7yEyBiOxB3TNz yR517QeIfbIDh Wbfts8yab0mlnZo8TrWqU YWqrlQzzUvfJAY0s8VnHr 73U4ZouMvfq4CuMeu4qt4 2kNIwa5S5tVE3 U0IdGTAzxoxszXIyhZlkZ R7sGMVnklxjTGNysK9gYR HwA9b3BpLsGdW0KCxbH9Z uuhC1ORVtgCTg USdbFEA9Y70mw5P7XDZxN ZXzOSF4wUS1xU5dkPioud ogbGVmdDsgdmVydGljYWw wBDgeF712CBDd kFpnLWSewK4lNWHdoUMrz GedFX5yRNUiapeuWxaCZH WFV03GB0iDSSEVFOPMTGH 2K0VqIrj1KHGc kXodIK5wjMAaTMatSm0lz XkrqSakAD0yPQWveymeDN VnnT3dBIDsqCCzjPqsXQ4 tWYEkycxtw440 FwPzNMQ0EUXkyZTkI0Ekk N9wJsLwMLJiVYGfT0PzqX GcSFilD388ALbfMsB7XAP ailEmY9ZzJUSm mPtzBnG0f9N3On9yIs6jW E2lGVIfKR06WG83oKFng4 T4uIZ3B8ZeOQMrkzzfnuu eoYR5SVPcOKFn wE03kAUcEBdnEb1fc6H4j 932APTtEOAivG76Dl6otX pkJYEihYJHaZ7toyvwt6m vcjogIzAwMDAw FSu6PXq0SOWeyVggSqCaM TB4ZxR0EAR1xOWmlW5umO qmfqrfkL4iHjo+MjAgWWV mwlL6T8PlJzp6 SAIvaLlwKI7kpFDfEOuaJ o0dgQmurYtgUF6mRPOlmv udVXCgkI3oZWZnoERrrNp uON1fGHJirjyk e436NaRhTDK1HBCtdRYfQ 0MpbG2tPxAxYYCrNZZuF9 UflBYqUWdsG940TMjgOmG 5FLIxfkKkF5Aa REMxkSehNcW5q1Z7De9VS L5pnKH8R4XqOpp1CIGokP asFK9kwMWyGPulXw5ubXm xxSdtWV3kYKXb ohfcPBQgtY3wXAMvbNIsj WswGV4lNFBhdhapc214Fm EoYTK6GBFffUXvC9RhzG4 yOiAjMDAwMDAw K9MwlFJvSRmmC015HFljU lN6DXOdukJuJ4RcWWOyuS miAxK5t8D9Fc7RiNGyX4U mR5z7W5WkKxgw dHI+PE95SBOdOM49pPUtc EZpl2ikqDa1BvQhHIXhND R0cNnxUXool9TeVSIiT58 hyUJqq6N3QTUt aPocqGDiNlIoxNN3iU9wH Drvgagpy3ckijjyLktmi6 cxtu05bL85L84qTExzQCA oPSIzMCUiIHZh rAsrhm5qpY6jVz8+PGNvb BO1fPM3xP3sHjHfDcX4NG nnJ739KqIgwUJcYnoca4u fx5boaDg2CsKj MVIdglMtdJobWMZ8e6PdG h46C49yZJxuYEBgNVLgFI CjQHAspLjklt8nlN9vOw6 +ZY1xi5izjh72 aT86cNT+UVFnGXS4hKtyM UpvXCDfnZ0dQTlwVoD9FQ GjAvWcaQ74oPCcHGyoLw8 ywRlsvNkvLE0v LRViiflpb265VsOxv6ohU LMolQBxJEgaJKX6M66gs8 G2ITBqGCAeXGZ3xND6oA0 hbGlnbjogbGVm dDsgdmVydGljYWwtYWxpZ 957ICFpmKqiOdIjzFUvY6 zpbcUDMQ6fMmanbAF+PHR lCAG1aInrACxc RQUlpY7gFUZcI1g2DiKcD qM1WDypR9KrgkT2SDGthF TiNQAjvBWNuO2tmvomj4x vcjogIzAwMDAw BZr8MIm6IOPpzZsqRqCcJ SG8XpO7PVI4bIKtgM4duN ehtjcisQ2fThh+RklOOjw vdGQ+PHRkIHN0 qRdgIPivTXQrgY6gIEDeO 3h9FfWuUcF6MCmeC6Nqad G4DBTsiMFaDGChbVBTyE1 pcmpnw9vjyfbi VqZbJRUaDFh8AGq4VADfx DyxZxHcCNP1ByV5UJH2vQ CzqW5svXbsxpxinJ2jVkf +TVJOOjwvdGQ+ FLDwJMK5oRbqOVilYSSqx U5rXOBoC6c4HvCmLrF6GC lcQ4LhatI6QYDdeRFtUVY lsWLIlF5neygu n9kwdyacGwYnIRHpHAl0H Yj0UYMbxApeSoJsBDQ3Pa I4POP1dYUceT7hfLbiolm qsW3fPlm+UGF5 QXT3VO39EE56E5GqVgnmk GFibGU+PHRhYmxlIHdpZH RoPScxMDAlJyBzdHlsZT0 lKr3yUGCpYLIy bGxh (more content not included)... Normal [facility] CBC AUTO DIFFon 04-13-2022 BASO # 0.1 103/ul Normal 0.0-0.1 [facility] Comment on above: Performed By: #### C VDTBH #### [facility] [address] [address] [address] Reema Mireles Basophils/100 WBC (Bld) 0.6 % Normal 0.2-2.0 [facility] Comment on above: Performed By: #### C VDTBH #### [facility] [address] [address] [address] Reema Mireles EO # 0.0 103/ul Normal 0.0-0.7 [facility] Comment on above: Performed By: #### C VDTBH #### [facility] [address] [address] [address] Reema Mireles Eosinophils/100 WBC (Bld) 0.2 % Critically low 0.9-7.0 [facility] Comment on above: Performed By: #### C VDTBH #### [facility] [address] [address] [address] Reema Mireles Erythrocyte distribution width (RBC) [Ratio] 11.4 % Normal 11.0-15.0 [facility] Comment on above: Performed By: #### C VDTBH #### [facility] [address] [address] [address] Reema Mireles Hematocrit (Bld) [Volume fraction] 38.3 % Normal 36.0-48.0 [facility] Comment on above: Performed By: #### C VDTBH #### [facility] [address] [address] [address] Reema Mireles Hemoglobin (Bld) [Mass/Vol] 13.4 g/dL Normal 12.0-16.0 [facility] Comment on above: Performed By: #### C VDTBH #### [facility] [address] [place] [address] Dr. Reema Mireles IG # 0.01 10e3/ul Normal 0.00-0.03 [facility] Comment on above: Performed By: #### C VDTBH #### [facility] [address] [place] [address] Dr. Reema Mireles IG % 0.1 % Normal 0.0-0.5 [facility] Comment on above: Performed By: #### C VDTBH #### [facility] [address] [place] [address] Dr. Reema Mireles LYMPH # 1.8 103/ul Normal 1.2-3.8 [facility] Comment on above: Performed By: #### C VDTBH #### [facility] [address] [place] [address] Dr. Reema Mireles Lymphocytes/100 WBC (Bld) 22.2 % Normal 20.5-60.0 [facility] Comment on above: Performed By: #### C VDTBH #### [facility] [address] [place] [address] Dr. Reema Mireles MANUAL DIFF REQ NO Normal [facility] Comment on above: Performed By: #### C VDTBH #### [facility] [address] [place] [address] Dr. Reema Mireles MCH (RBC) [Entitic mass] 30.6 pg Normal 26.7-34.0 [facility] Comment on above: Performed By: #### C VDTBH #### [facility] [address] [place] [address] Dr. Reema Mireles MCHC (RBC) [Mass/Vol] 35.0 g/dL Normal 29.9-35.2 [facility] Comment on above: Performed By: #### C VDTBH #### [facility] [address] [place] [address] Dr. Reema Mireles MCV (RBC) [Entitic vol] 87.4 fL Normal 81.0-99.0 [facility] Comment on above: Performed By: #### C VDTBH #### [facility] [address] [place] [address] Dr. Reema Mireles MONO # 0.7 103/ul Normal 0.3-0.8 [facility] Comment on above: Performed By: #### C VDTBH #### [facility] [address] [place] [address] Dr. Reema Mireles Monocytes/100 WBC (Bld) 8.2 % Normal 1.7-12.0 [facility] Comment on above: Performed By: #### C VDTBH #### [facility] [address] [place] [address] Dr. Reema Mireles NEUT # 5.5 103/ul Normal 1.4-6.5 [facility] Comment on above: Performed By: #### C VDTBH #### [facility] [address] [place] [address] Dr. Reema Mireles Neutrophils/100 WBC (Bld) 68.7 % Normal 43.0-75.0 [facility] Comment on above: Performed By: #### C VDTBH #### [facility] [address] [place] [address] Dr. Reema Mireles Platelet mean volume (Bld) [Entitic vol] 10.1 fL Normal 9.5-13.[address] [facility] Comment on above: Performed By: #### C VDTBH #### [facility] [address] [place] [address] Dr. Reema Mireles PLT 404 103/ul Normal 150-[address] [facility] Comment on above: Performed By: #### C VDTBH #### [facility] [address] [place] [address] Dr. Reema Mirlees RBC 4.38 106/ul Normal 4.20-5.[address] [facility] Comment on above: Performed By: #### C VDTBH #### [facility] [address] [place] [address] Dr. Reema Mireles WBC 8.0 103/ul Normal 4.0-11.0 [facility] Comment on above: Performed By: #### C TB #### [facility] [address] HEAD WO CONon [...] AURELIA CARLOS Date: 2022-04-13 16:29 Normal [facility] Discharge Instructionson Discharge Instructions [id number]:127 Normal [facility] ED Note-Physicianon 04-13-20 22 ED Note-Physician Basic Information Time Seen: Lata Hardy M.D. 04/12/2022 19:56 Chief Complaint Pt. presents to the ed with c/o headache and vertigo since thursday. Pt. was seen at [facility] and started on prednisone. pt. stopped taking [...] The patient states she was seen at [facility] discharged home. She went to urgent care [...] neurological deficit. She has been seen at [facility] and started on prednisone. Possible her symptoms [...] MOORE In 3 days 04/15/2022 EDT [address] [place] [address]- Business (1) Additional Instructions: Return to the [...] Diagnostic Results No qualifying data available. Normal [facility] Comment on above: Result Comment: Elec tronically Signed By: Antony Villa, Lata Baxter\.br\Date and Time Signed: 04/13/22 04:56 EDT ER URINE PROFILEon 2 Bilirubin Ql (U) Negative Normal NEGATIVE [facility] Comment on above: Performed By: #### P REGU, ERUR #### [facility] [address] [place] [address] Dr. Reema Mireles Clarity (U) CLEAR Normal CLEAR [facility] Comment on above: Performed By: #### P REGU, ERUR #### [facility] [address] [place] [address] Dr. Reema Mireles Color (U) LT. YELLOW Normal YELLOW [facility] Comment on above: Performed By: #### P REGU, ERUR #### [facility] [address] [address] [address] Reema DAMICOD A micrscopic examination will be performed if indicated. Normal [facility] Comment on above: Performed By: #### P REGU, ERUR #### [facility] [address] [address] [address] Reema Mireles Glucose Ql (U) Negative Normal NEGATIVE [facility] Comment on above: Performed By: #### P REGU, ERUR #### [facility] [address] [address] [address] Reema Mireles Hemoglobin Ql (U) Negative Normal NEGATIVE [facility] Comment on above: Performed By: #### P REGU, ERUR #### [facility] [address] [place] [address] Dr. Reema Mireles Ketones Ql (U) Negative Normal NEGATIVE [facility] Comment on above: Performed By: #### P REGU, ERUR #### [facility] [address] [place] [address] Dr. Reema Mireles LEUKOCYTES Negative Normal NEGATIVE [facility] Comment on above: Performed By: #### P REGU, ERUR #### [facility] [address] [place] [address] Dr. Reema Mireles Nitrite Ql (U) Negative Normal NEGATIVE [facility] Comment on above: Performed By: #### P REGU, ERUR #### [facility] [address] [place] [address] Dr. Reema Mireles pH (U) 6.5 [pH] Normal 5-[address] [facility] Comment on above: Performed By: #### P REGU, ERUR #### [facility] [address] [place] [address] Dr. Reema Mireles SPEC GRAVITY 1.005 Normal 1.005-<=1.025 [facility] Comment on above: Performed By: #### P REGU, ERUR #### [facility] [address] [place] [address] Dr. Reema Mireles UA PROTEIN Negative Normal NEGATIVE/ TRACE [facility] Comment on above: Performed By: #### P REGU, ERUR #### [facility] [address] [place] [address] Dr. Reema Mireles UR MICRO IND NOT INDICATED Normal [facility] Comment on above: Performed By: #### P REGU, ERUR #### [facility] [address] [place] [address] Dr. Reema Mireles Urobilinogen Qn (U) 0.2 {Renny'U}/dL Normal 0.2 - 1. 0 [facility] Comment on above: Performed By: #### P REGU, ERUR #### [facility] [address] [place] [address] Dr. Reema Mireles URon 07-17-2022 , QUAL Negative Normal NEGATIVE [facility] Comment on above: Performed By: #### P REGU, ERUR #### [facility] [address] [place] [address] Dr. Reema Mireles PROF CHEM 8 (BAS METB)on Anion gap [Moles/Vol] 14.0 mmol/L Normal [facility] Comment on above: Performed By: #### B MP, TSH #### [facility] [address] [place] [address] Dr. Reema Mireles Calcium [Mass/Vol] 9.2 mg/dL Normal 8.5-10.1 [facility] Comment on above: Performed By: #### B MP, TSH #### [facility] [address] [place] [address] Dr. Reema Mireles Chloride [Moles/Vol] 102 mmol/L Normal 98-[address] [facility] Comment on above: Performed By: #### B MP, TSH #### [facility] [address] [place] [address] Dr. Reema Mireles CO2 [Moles/Vol] 26.3 mmol/L Normal 21.0-32.0 [facility] Comment on above: Performed By: #### B MP, TSH #### [facility] [address] [place] [address] Dr. Reema Mireles Creatinine [Mass/Vol] 0.65 mg/dL Normal 0.55-1.[address] [facility] Comment on above: Performed By: #### B MP, TSH #### [facility] [address] [place] [address] Dr. Reema Mireles EGFR-AF STATELESS >60 Normal >=60 [facility] Comment on above: Performed By: #### B MP, TSH #### [facility] [address] [place] [address] Dr. Reema Mireles EGFR-NON AF STATELESS >60 Normal >=60 [facility] Comment on above: Performed By: #### B MP, TSH #### [facility] [address] [place] [address] Dr. Reema Mireles Glucose [Mass/Vol] 92 mg/dL Normal 74-106 [facility] Comment on above: Performed By: #### B GURPREET, TSH #### [facility] [address] [address] [address] Reema Mireles Potassium [Moles/Vol] 3.3 mmol/L Critically low 3.5-5.1 [facility] Comment on above: Performed By: #### B GURPREET, TSH #### [facility] [address] [address] [address] Reema Mireles Sodium [Moles/Vol] 139 mmol/L Normal 136-145 [facility] Comment on above: Performed By: #### B GURPREET, TSH #### [facility] [address] [place] [address] Dr. Reema Mireles Urea nitrogen [Mass/Vol] 8.0 mg/dL Normal 7.0-18.0 [facility] Comment on above: Performed By: #### B GURPREET, TSH #### [facility] [address] [place] [address] Dr. Reema Mireles Urea nitrogen/Creatinine [Mass ratio] 12.3 mg/mg Normal [facility] Comment on above: Performed By: #### B GURPERET, TSH #### [facility] [address] [place] [address] Dr. Reema Mireles TSHon 04-13-2022 TSH 1.293 uIU/mL Normal 0.358-3.740 [facility] Comment on above: Performed By: #### B GURPREET, TSH #### [facility] [address] [place] [address] Dr. Reema Mireles Consent for Treatmenton 03-28 Consent for Treatment [id number] Normal [facility] ED Clinical Summaryon 2021 ED Clinical Summary [address] [address] ED Clinical Summary Person Information Name: JUANPABLO CHAPARRO/[facility] Age: 21 Years : 2000 Sex: Female Language: Polish PCP: ADRYAN MOORE MD Marital Status: Single Phone: [phone] Visit Id: Visit Reason: Vertigo - recurrent; [...] 04/12/2022 21:07:38 04/12/2022 21:07:38 04/12/2022 21:07:38 AD[address]ESS: [id number] [place] [address] [id number] PHYS DOC NOTES: MEDICAL INFORMATION: Prescriptions Given: PATIENT EDUCATION INFORMATION: Instructions: General Headache Without Cause; Vertigo Follow up: With: Address: When: ADRYAN OSCAR [address] [place], [place] [id number] R17 (1) In 3 days 04/15/2022 Comments: Return to the emergency room if her headache gets worse, vertigo becomes persistent or any new symptoms DIAGNOSIS: 1:Vertigo; 2:Headache Normal [facility] ED Patient Education Noteon 04-12-2022 ED Patient [...] you feel dizzy. General instructions ? Take mrxg-ywn-vosyytv and prescription medicines only as told by [...] Reviewed: 08/08/2019 [employer] Patient Education ? 2020 [employer] Neurology General Headache Without Cause A [...] with your condition: Managing pain ? Take innc-dxd-xesrlvh and prescription medicines only as told by [...] of beer (more content not included)... Normal [facility] ED Patient Summaryon 022 ED Patient Summary [address] [address] Patient Discharge Instructions Person Information Name: JUANPABLO CHAPARRO Age: 21 Years Arrival Date: 04/12/2022 19:22:40 Discharge Diagnosis: 1:Vertigo; 2:Headache Primary Care Physician: ADRYAN MOORE MD Provider Information Primary Provider: Lata Hardy M.D. Advanced Registration Scheduling Specialist:None The exam and treatment you received in the Emergency Department were for an urgent problem and are not intended as complete care. It is important that you follow up with a doctor, nurse practitioner, or physician?s title i instructional assistant for ongoing care. If your symptoms [...] Follow-up Instructions: With: Address: When: ADRYAN MOORE [address] [place] [address] R17 (1Recorrido In 3 days 04/15/2022 Comments: Return to [...] opioids can be used to help relieve vefwytam-fz-khdicx pain and are often prescribed following a [...] addiction, tel (more content not included)... Normal [facility] CBC AUTO DIFFon 04-09-2022 BASO # 0.1 103/ul Normal 0.0-0.1 [facility] Comment on above: Performed By: #### B MP, TSH #### [facility] [address] [address] [address] Reema Mireles Basophils/100 WBC (Bld) 0.5 % Normal 0.2-2.0 [facility] Comment on above: Performed By: #### B MP, TSH #### [facility] [address] [place], [place] [address] Dr. Reema Mireles EO # 0.1 103/ul Normal 0.0-0.[address] [facility] Comment on above: Performed By: #### B GURPREET, TSH #### [facility] [address] [place] [address] Dr. Reema Mireles Eosinophils/100 WBC (Bld) 1.0 % Normal 0.9-7.0 [facility] Comment on above: Performed By: #### B GURPREET, TSH #### [facility] [address] [place] [address] Dr. Reema Mireles Erythrocyte distribution width (RBC) [Ratio] 11.7 % Normal 11.0-15.[address] [facility] Comment on above: Performed By: #### B GURPREET, TSH #### [facility] [address] [place] [address] Dr. Reema Mireles Hematocrit (Bld) [Volume fraction] 37.2 % Normal 36.0-48.0 [facility] Comment on above: Performed By: #### B GURPREET, TSH #### [facility] [address] [place] [address] Dr. Reema Mireles Hemoglobin (Bld) [Mass/Vol] 12.8 g/dL Normal 12.0-16.[address] [facility] Comment on above: Performed By: #### B GURPREET, TSH #### [facility] [address] [place] [address] Dr. Reema Mireles IG # 0.02 10e3/ul Normal 0.00-0.[address] [facility] Comment on above: Performed By: #### B GURPREET, TSH #### [facility] [address] [place] [address] Dr. Reema Mireles IG % 0.2 % Normal 0.0-0.[address] [facility] Comment on above: Performed By: #### B GURPREET, TSH #### [facility] [address] [place] [address] Dr. Reema Mireles LYMPH # 1.8 103/ul Normal 1.2-3.[address] [facility] Comment on above: Performed By: #### B GURPREET, TSH #### [facility] [address] [place] [address] Dr. Reema Mireles Lymphocytes/100 WBC (Bld) 19.0 % Critically low 20.5-60.[address] [facility] Comment on above: Performed By: #### B MP, TSH #### [facility] [address] [place] [address] Dr. Reema Mireles MANUAL DIFF REQ NO Normal [facility] Comment on above: Performed By: #### B MP, TSH #### [facility] [address] [place] [address] Dr. Reema Mireles MCH (RBC) [Entitic mass] 30.4 pg Normal 26.7-34.[address] [facility] Comment on above: Performed By: #### B GURPREET, TSH #### [facility] [address] [place] [address] Dr. Reema Mireles MCHC (RBC) [Mass/Vol] 34.4 g/dL Normal 29.9-35.[address] [facility] Comment on above: Performed By: #### B GURPREET, TSH #### [facility] [address] [place] [address] Dr. Reema Mireles MCV (RBC) [Entitic vol] 88.4 fL Normal 81.0-99.[address] [facility] Comment on above: Performed By: #### B GURPREET, TSH #### [facility] [address] [place] [address] Dr. Reema Mireles MONO # 0.7 103/ul Normal 0.3-0.[address] [facility] Comment on above: Performed By: #### B GURPREET, TSH #### [facility] [address] [place] [address] Dr. Reema Mireles Monocytes/100 WBC (Bld) 6.8 % Normal 1.7-12.[address] [facility] Comment on above: Performed By: #### B MP, TSH #### [facility] [address] [place] [address] Dr. Reema Mireles NEUT # 7.0 103/ul Critically high 1.4-6.5 [facility] Comment on above: Performed By: #### B GURPREET, TSH #### [facility] [address] [place] [address] Dr. Reema Mireles Neutrophils/100 WBC (Bld) 72.5 % Normal 43.0-75.[address] [facility] Comment on above: Performed By: #### B GURPREET, TSH #### [facility] [address] [place] [address] Dr. Reema Mireles Platelet mean volume (Bld) [Entitic vol] 10.3 fL Normal 9.5-13.5 [facility] Comment on above: Performed By: #### B GURPREET, TSH #### [facility] [address] [place] [address] Dr. Reema Mireles PLT 358 103/ul Normal 150-450 [facility] Comment on above: Performed By: #### B GURPREET, TSH #### [facility] [address] [place] [address] Dr. Reema Mireles RBC 4.21 106/ul Normal 4.20-5.40 [facility] Comment on above: Performed By: #### B GURPREET, TSH #### [facility] [address] [place] [address] Dr. Reema Mireles WBC 9.7 103/ul Normal 4.0-11.[address] [facility] Comment on above: Performed By: #### B GURPREET, TSH #### [facility] [address] [place] [address] Dr. Reema Mrieles CULTURE BLOODon 04-09-2022 Microscopic examination of blood, culture Culture Observations: NO GROWTH AT 5 DAYS. Normal [facility] Comment on above: Performed By: #### B GURPREET, TSH #### [facility] [address] [place] [address] Dr. Reema Mireles ER URINE PROFILEon 2 Bilirubin Ql (U) Negative Normal NEGATIVE [facility] Comment on above: Performed By: #### B GURPREET, TSH #### [facility] [address] [place] [address] Dr. Reema Mireles Clarity (U) CLEAR Normal CLEAR [facility] Comment on above: Performed By: #### B GURPREET, TSH #### [facility] [address] [place] [address] Dr. Reema Mireles Color (U) LT. YELLOW Normal YELLOW [facility] Comment on above: Performed By: #### B MP, TSH #### [facility] [address] [place] [address] Dr. Reema ELIZALDE A micrscopic examination will be performed if indicated. Normal [facility] Comment on above: Performed By: #### B MP, TSH #### [facility] [address] [place] [address] Dr. Reema Mireles Glucose Ql (U) Negative Normal NEGATIVE [facility] Comment on above: Performed By: #### B MP, TSH #### [facility] [address] [place] [address] Dr. Reema Mireles Hemoglobin Ql (U) TRACE-INTACT Abnormal NEGATIVE [facility] Comment on above: Performed By: #### B MP, TSH #### [facility] [address] [place] [address] Dr. Reema Mireles Ketones Ql (U) Negative Normal NEGATIVE [facility] Comment on above: Performed By: #### B MP, TSH #### [facility] [address] [place] [address] Dr. Reema Mireles LEUKOCYTES Negative Normal NEGATIVE [facility] Comment on above: Performed By: #### B MP, TSH #### [facility] [address] [place] [address] Dr. Reema Mireles Nitrite Ql (U) Negative Normal NEGATIVE [facility] Comment on above: Performed By: #### B MP, TSH #### [facility] [address] [place] [address] Dr. Reema Mireles pH (U) 5.5 [pH] Normal 5-9 [facility] Comment on above: Performed By: #### B MP, TSH #### [facility] [address] [place] [address] Dr. Reema Mireles SPEC GRAVITY <=1.005 Abnormal 1.005-<=1.025 [facility] Comment on above: Performed By: #### B MP, TSH #### [facility] [address] [place] [address] Dr. Reema Mireles UA PROTEIN Negative Normal NEGATIVE/ TRACE [facility] Comment on above: Performed By: #### B MP, TSH #### [facility] [address] [address] [address] Reema Mireles UR MICRO IND INDICATED Normal [facility] Comment on above: Performed By: #### B MP, TSH #### [facility] [address] [address] [address] Reema Mireles Urobilinogen Qn (U) 0.2 {Renny'U}/dL Normal 0.2 - 1. 0 [facility] Comment on above: Performed By: #### B MP, TSH #### [facility] [address] [place] [address] Dr. Reema Mireles LACTATE/LACTIC ACIDon 2021 Lactate [Moles/Vol] 2.2 mmol/L Critically high 0.4-1.9 [facility] Comment on above: Performed By: #### B MP, TSH #### [facility] [address] [place] [address] Dr. Reema Mireles URon 04-09-2022 , QUAL Negative Normal NEGATIVE [facility] Comment on above: Performed By: #### B MP, TSH #### [facility] [address] [place] [address] Dr. Reema Mireles PROF 14(COMP METB)on 022 Albumin [Mass/Vol] 4.5 g/dL Normal 3.4-5.0 [facility] Comment on above: Performed By: #### C MP #### [facility] [address] [place] [address] Dr. Reema Mireles Albumin/Globulin [Mass ratio] 1.3 {ratio} Normal [facility] Comment on above: Performed By: #### C MP #### [facility] [address] [address] [address] Reema Mireles ALP [Catalytic activity/Vol] 83 U/L Normal 46-[address] [facility] Comment on above: Performed By: #### C MP #### [facility] [address] [address] [address] Reema Mireles ALT [Catalytic activity/Vol] 26 U/L Normal 14-[address] [facility] Comment on above: Performed By: #### C MP #### [facility] [address] [place] [address] Dr. Reema Mireles Anion gap [Moles/Vol] 14.9 mmol/L Normal [facility] Comment on above: Performed By: #### C MP #### [facility] [address] [address] [address] Reema Mireles AST [Catalytic activity/Vol] 12 U/L Critically low 15-37 [facility] Comment on above: Performed By: #### C MP #### [facility] [address] [place] [address] Dr. Reema Mireles Bilirubin [Mass/Vol] 0.3 mg/dL Normal 0.2-1.0 [facility] Comment on above: Performed By: #### C MP #### [facility] [address] [place] [address] Dr. Reema Mireles Calcium [Mass/Vol] 9.6 mg/dL Normal 8.5-10.1 [facility] Comment on above: Performed By: #### C MP #### [facility] [address] [place] [address] Dr. Reema Mireles Chloride [Moles/Vol] 103 mmol/L Normal 98-[address] [facility] Comment on above: Performed By: #### C MP #### [facility] [address] [address] [address] Reema Mireles CO2 [Moles/Vol] 24.4 mmol/L Normal 21.0-32.0 [facility] Comment on above: Performed By: #### C MP #### [facility] [address] [place] [address] Dr. Reema Mireles Creatinine [Mass/Vol] 0.87 mg/dL Normal 0.55-1.[address] [facility] Comment on above: Performed By: #### C MP #### [facility] [address] [place] [address] Dr. Reema Mireles EGFR-AF STATELESS >60 Normal >=60 [facility] Comment on above: Performed By: #### C MP #### [facility] [address] [address] [address] Reema Mireles EGFR-NON AF STATELESS >60 Normal >=60 [facility] Comment on above: Performed By: #### C MP #### [facility] [address] [address] [address] Reema Mireles Globulin (S) [Mass/Vol] 3.5 g/dL Normal [facility] Comment on above: Performed By: #### C MP #### [facility] [address] [address] [address] Reema Mireles Glucose [Mass/Vol] 109 mg/dL Critically high 74-106 [facility] Comment on above: Performed By: #### C MP #### [facility] [address] [address] [address] Reema Mireles Potassium [Moles/Vol] 3.3 mmol/L Critically low 3.5-5.1 [facility] Comment on above: Performed By: #### C MP #### [facility] [address] [address] [address] Reema Mireles Protein [Mass/Vol] 8.0 g/dL Normal 6.4-8.2 [facility] Comment on above: Performed By: #### C MP #### [facility] [address] [address] [address] Reema Mireles Sodium [Moles/Vol] 139 mmol/L Normal 136-145 [facility] Comment on above: Performed By: #### C MP #### [facility] [address] [address] [address] Reema Mireles Urea nitrogen [Mass/Vol] 9.0 mg/dL Normal 7.0-18.0 [facility] Comment on above: Performed By: #### C MP #### [facility] [address] [address] [address] Reema Mireles Urea nitrogen/Creatinine [Mass ratio] 10.3 mg/mg Normal [facility] Comment on above: Performed By: #### C MP #### [facility] [address] [place] [address] Dr. Reema Mireles URINE MICROSCOPIC ONLYon BACTERIA NONE SEEN Normal NONE SEEN [facility] Comment on above: Performed By: #### B MP, TSH #### [facility] [address] [place] [address] Dr. Reema Mireles Bacteria identified Cx Nom (U) NOT INDICATED Normal [facility] Comment on above: Performed By: #### B MP, TSH #### [facility] [address] [place] [address] Dr. Reema Mireles CAST NONE SEEN Normal NONE SEEN [facility] Comment on above: Performed By: #### B MP, TSH #### [facility] [address] [place] [address] Dr. Reema Mireles Crystals LM Nom (Urine sed) NONE SEEN Normal NONE SEEN [facility] Comment on above: Performed By: #### B MP, TSH #### [facility] [address] [place] [address] Dr. Reema Mireles Epithelial cells LM Ql (Urine sed) RARE Normal NONE SEEN /RARE [facility] Comment on above: Performed By: #### B MP, TSH #### [facility] [address] [place] [address] Dr. Reema Mireles MUCOUS NONE SEEN Normal NONE SEEN [facility] Comment on above: Performed By: #### B MP, TSH #### [facility] [address] [place] [address] Dr. Reema Mireles RBC 0-2 Normal 0-[address] [facility] Comment on above: Performed By: #### B MP, TSH #### [facility] [address] [place] [address] Dr. Reema Mireles WBC NONE SEEN Normal NONE SEEN [facility] Comment on above: Performed By: #### B MP, TSH #### [facility] [address] [place] [address] Dr. Reema Mireles CBC AUTO DIFFon 10-25-2021 BASO # 0.0 103/ul Normal 0.0-0.1 [facility] Comment on above: Performed By: #### C BC #### [facility] [address] [address] [address] Reema Mireles Basophils/100 WBC (Bld) 0.6 % Normal 0.2-2.0 [facility] Comment on above: Performed By: #### C BC #### [facility] [address] [place] [address] Dr. Reema Mireles EO # 0.1 103/ul Normal 0.0-0.7 [facility] Comment on above: Performed By: #### C BC #### [facility] [address] [place] [address] Dr. Reema Mireles Eosinophils/100 WBC (Bld) 1.8 % Normal 0.9-7.0 [facility] Comment on above: Performed By: #### C BC #### [facility] [address] [place] [address] Dr. Reema Mireles Erythrocyte distribution width (RBC) [Ratio] 11.9 % Normal 11.0-15.0 [facility] Comment on above: Performed By: #### C BC #### [facility] [address] [place] [address] Dr. Reema Mireles Hematocrit (Bld) [Volume fraction] 38.1 % Normal 36.0-48.0 [facility] Comment on above: Performed By: #### C BC #### [facility] [address] [place] [address] Dr. Reema Mireles Hemoglobin (Bld) [Mass/Vol] 13.1 g/dL Normal 12.0-16.0 [facility] Comment on above: Performed By: #### C BC #### [facility] [address] [place] [address] Dr. Reema Mireles IG # 0.01 10e3/ul Normal 0.00-0.03 [facility] Comment on above: Performed By: #### C BC #### [facility] [address] [place] [address] Dr. Reema Mireles IG % 0.1 % Normal 0.0-0.5 [facility] Comment on above: Performed By: #### C BC #### [facility] [address] [place] [address] Dr. Reema Mireles LYMPH # 1.9 103/ul Normal 1.2-3.8 [facility] Comment on above: Performed By: #### C BC #### [facility] [address] [place] [address] Dr. Reema Mireles Lymphocytes/100 WBC (Bld) 27.8 % Normal 20.5-60.0 [facility] Comment on above: Performed By: #### C BC #### [facility] [address] [place] [address] Dr. Reema iMreles MANUAL DIFF REQ NO Normal [facility] Comment on above: Performed By: #### C BC #### [facility] [address] [place] [address] Dr. Reema Mireles MCH (RBC) [Entitic mass] 30.5 pg Normal 26.7-34.0 [facility] Comment on above: Performed By: #### C BC #### [facility] [address] [place] [address] Dr. Reema Mireles MCHC (RBC) [Mass/Vol] 34.4 g/dL Normal 29.9-35.2 [facility] Comment on above: Performed By: #### C BC #### [facility] [address] [place] [address] Dr. Reema Mireles MCV (RBC) [Entitic vol] 88.8 fL Normal 81.0-99.0 [facility] Comment on above: Performed By: #### C BC #### [facility] [address] [place] [address] Dr. Reema Mireles MONO # 0.8 103/ul Normal 0.3-0.8 [facility] Comment on above: Performed By: #### C BC #### [facility] [address] [place] [address] Dr. Reema Mireles Monocytes/100 WBC (Bld) 11.2 % Normal 1.7-12.0 [facility] Comment on above: Performed By: #### C BC #### [facility] [address] [place] [address] Dr. Reema Mireles NEUT # 4.0 103/ul Normal 1.4-6.5 [facility] Comment on above: Performed By: #### C BC #### [facility] [address] [place] [address] Dr. Reema Mireles Neutrophils/100 WBC (Bld) 58.5 % Normal 43.0-75.0 [facility] Comment on above: Performed By: #### C BC #### [facility] [address] [place] [address] Dr. Reema Mireles Platelet mean volume (Bld) [Entitic vol] 10.0 fL Normal 9.5-13.5 [facility] Comment on above: Performed By: #### C BC #### [facility] [address] [place] [address] Dr. Reema Mireles PLT 361 103/ul Normal 150-450 [facility] Comment on above: Performed By: #### C BC #### [facility] [address] [place] [address] Dr. Reema Mireles RBC 4.29 106/ul Normal 4.20-5.40 [facility] Comment on above: Performed By: #### C BC #### [facility] [address] [place] [address] Dr. Reema Mireles WBC 6.8 103/ul Normal 4.0-11.0 [facility] Comment on above: Performed By: #### C BC #### [facility] [address] [place] [address] Dr. Reema Mireles PREG QUANT HCGon 10-25-2021 HCG QUANT 1 mIU/mL Normal [facility] Comment on above: Performed By: #### P REGQNT #### [facility] [address] [place] [address] Dr. Reema Mireles HCG RANGE SEE BELOW Normal [facility] Comment on above: Result Comment: 5-50 0-1 WEEK 40-300 1-2 WEEKS 100-1,000 2-3 WEEKS 500-6,000 3-4 WEEKS 5,000-200,000 1-2 MONTHS 10,000-100,000 2-3 MONTHS 3,000-50,000 2ND TRIMESTER 1,000-50,000 3RD TRIMESTER Performed By: #### P REGQNT #### [facility] [address] [place] [id number] Reema Mireles Covid-19 PCR ([facility])on 09-29 SARS-CoV-2 (COVID-19) RNA FRANKIE+probe Ql (Unsp spec) Not detected Normal NOT DETECTED [facility] Comment on above: Result Comment: This test is not yet approved or cleared by the [place] FDA. When there are no FDA-approved or cleared tests available, and other criteria are met, FDA can make tests available under an emergency access mechanism called an Emergency Use Authorization (EUA). The EUA for this test is supported by the [employer]el [employer] of Health and Human Service's (HHS's) declaration [...] SARS-CoV-2. Performed By: #### C VDTB #### [facility] [address] [place] [id number] Reema Mireles Vital Signs Date Time Vital Sign Value Performing Clinician Facility 04-12-2022 21:04-0400 Diastolic blood pressure 84 mm[Hg] [facility] 04-12-2022 21:04-0400 Heart rate 82 /min [facility] 04-12-2022 21:04-0400 Respiratory rate 16 /min [facility] 04-12-2022 21:04-0400 SaO2% (BldA) [Mass fraction] 98 % [facility] 04-12-2022 21:04-0400 Systolic blood pressure 120 mm[Hg] [facility] 04-12-2022 20:32-0400 gluc 80 mg/dL [facility] Comment on above: Result Comment: not taken due to pt refu jimmie of any injection 04-12-2022 20:32-0400 gluc [facility] 04-12-2022 19:25-0400 Body temperature 99.32 [degF] [facility] 04-12-2022 19:25-0400 Diastolic blood pressure 84 mm[Hg] [facility] 04-12-2022 19:25-0400 Heart rate 90 /min [facility] 04-12-2022 19:25-0400 Respiratory rate 18 /min [facility] 04-12-2022 19:25-0400 SaO2% (BldA) [Mass fraction] 98 % [facility] 04-12-2022 19:25-0400 Systolic blood pressure 118 mm[Hg] [facility] 04-09-2022 12:20-0400 Body height 165.1 cm Deonna Back Other [employer] Other 04-09-2022 12:20-0400 Body mass index (BMI) [Ratio] 35.61 kg/m2 Deonna Back Other [employer] Other 04-09-2022 12:20-0400 Body temperature 98.4 [degF] Deonna Back Other [employer] Other 04-09-2022 12:20-0400 Body weight 97.07 kg Deonna Back Other [employer] Other 04-09-2022 12:20-0400 Diastolic blood pressure 83 mm[Hg] Deonna Nazanin Other [employer] Other 04-09-2022 12:20-0400 Respiratory rate 18 /min Deonna Nazanin Other [employer] Other 04-09-2022 12:20-0400 SaO2% (BldA) [Mass fraction] 99 % Deonna Nazanin Other [employer] Other 04-09-2022 12:20-0400 Systolic blood pressure 135 mm[Hg] Deonna Nazanin Other [employer] Other 04-02-2022 19:00-0400 Body height 165.1 cm Deonna Nazanin Other [facility] Other 04-02-2022 19:00-0400 Body mass index (BMI) [Ratio] 35.71 kg/m2 Deonna Nazanin Other [facility] Other 04-02-2022 19:00-0400 Body temperature 98.1 [degF] Deonna Nazanin Other [facility] Other 04-02-2022 19:00-0400 Body weight 97.34 kg Deonna Nazanin Other [facility] Other 04-02-2022 19:00-0400 Diastolic blood pressure 83 mm[Hg] Deonna Nazanin Other [facility] Other 04-02-2022 19:00-0400 Respiratory rate 18 /min Deonna Nazanin Other [facility] Other 04-02-2022 19:00-0400 SaO2% (BldA) [Mass fraction] 100 % Deonna Back Other [facility] Other 04-02-2022 19:00-0400 Systolic blood pressure 134 mm[Hg] Deonna Back Other [facility] Other Encounters Encounter Date Encounter Type Care Provider Facility Start: 10-15-2023 End: 10-15-2023 ambulatory BLANCA LEOS Not Available Start: 09-17-2023 End: 09-17-2023 ambulatory DEVAN TELLO Not Available Start: 08-13-2023 End: 08-13-2023 ambulatory BLANCA LEOS Not Available Start: 09-14-2022 End: 09-14-[address] LUSI ANTONIO SUTTON Facility:[facility] Start: 08-11-2022 End: 08-12-2022 [...] 04-12-2022 End: 04-12-2022 Emergency department patient visit Lata Hardy [facility] Start: 04-10-2022 End: 04-10-2022 ambulatory Deonna Back Other [facility] Other Start: 04-10-2022 Telephone encounter Deonna Back [facility] Start: 04-09-2022 End: 04-09-2022 ambulatory Deonna Back Other [employer] Other Start: 04-09-2022 Office outpatient vi sit 15 minutes Deonna Back [facility] Start: 04-09-2022 End: 04-09-[address] LUIS ANTONIO SUTTON Facility:[facility] Start: 04-02-2022 (URG) Urgent Care Visit Deonna pace [facility] Start: 04-02-2022 End: 04-02-2022 ambulatory Deonna Back Other [facility] Other Start: 10-25-2021 End: 10-25-[address] ADRYAN MOORE Facility:[facility] Start: 10-24-2021 Encounter for preprocedural laboratory examination DR DEVAN TELLO [facility] Start: 10-22-2021 End: 10-23-[address] ADRYAN MOORE Facility:[facility] Start: 10-22-2021 End: 10-23-2021 Encounter for preprocedural laboratory examination DR ADRYAN MOORE Facility:[facility] Start: 10-19-2021 Encounter for other preprocedural examination DR DEVAN TELLO [facility] Start: 10-17-2021 End: 10-18-[address] ADRYAN MOORE Facility:[facility] Start: 10-17-2021 End: 10-18-2021 Encounter for other preprocedural examination DR ADRYAN MOORE Facility:[facility] Payers Date Payer Category Payer Medicaid [id number] 2000 Unknown [id number] 2.16.84 [id number] 2001 Unknown [id number] 2.16.84 0.1.588392.3.579.2.593 2001 Unknown [id number] 2.16.84 0.1.160727.3.579.2.593 2001 Unknown [id number] 2.16.84 0.1.317637.3.579.2.593 2001 Unknown [id number] 2.16.84 0.1.454735.3.579.2.593 2001 Unknown [id number] 2.16.84 0.1.136926.3.579.2.593 2001 Unknown [id number] 2.16.84 0.1.011777.3.579.2.593 2001 Unknown [id number] 2.16.84 0.1.868374.3.579.2.593 2001 Unknown [id number] 2.16.84 0.1.751187.3.579.2.593 2001 Unknown [id number] 2.16.84 0.1.036983.3.579.2.593 2001 Unknown [id number] 2.16.84 0.1.286071.3.579.2.593 2001 Unknown [id number] 2.16.84 0.1.974395.3.579.2.1259 2001 Unknown [id number] 2.16.840 .1.905836.3.579.2.1259 2001 Unknown [id number] 2.16.840 .1.817948.3.579.2.1259 1958 [facility] [id number] Social History Date Type Detail Facility Unknown if ever smoked [facility] [employer] Other Sex Assigned At [employer] [facility] [employer] Other Tobacco smoking status No Smoking Status Entered [facility] Functional Status Date Assessment Result Facility 04-12-2022 Functional Status N/A [facility] Discharge instructions 04-12-2022 Note Date [...] help with your condition: Managing pain Take zawu-zns-hhtdqio and prescription medicines only as told by [...] 09/14/2006 Document Revised: 04/04/2019 Document Reviewed: 04/04/2019 [employer] Patient Education 2020 [employer] 04/12/2022 21:07:38 Vertigo Vertigo Vertigo is [...] if you feel dizzy. General instructions Take pkcd-utn-mymqynd and prescription medicines only as told by [...] 06/24/2006 Document Revised: 08/08/2019 Document Reviewed: 08/08/2019 [employer] Patient Education 2020 [employer] Follow Up Care 04/12/2022 19:25:17 With:ADRYAN MOORE Address: [address] [place], [place] [id number] Business (1) When:04/15/2022 20:55:24 Comments:Return to the emergency room if her headache gets worse, vertigo becomes persistent or any new symptoms [facility] Evaluation note 04-09-2022 Note Date & [...] She was prescribed Zofran with no improvement. [facility] Other Evaluation note 04-02-2022 Note Date & [...] 3 days. No swimming for a week [facility] Other Clinical Note 10-25-2021 Note Date & Type Note Facility 10-25-2021 Note OPERATIVE NOTE PROCEDURE: Diagnostic laparoscopy. PREOPERATIVE DIAGNOSIS: Pelvic pain, dyspareunia dysmenorrhea. POSTOPERATIVE DIAGNOSIS: Pelvic pain, dyspareunia dysmenorrhea. ANESTHESIA: General. SURGEON: Devan Tello D.O. MUFFLER INSTALLER: JAE Worley URINE OUTPUT: Yellow and clear. [...] taken to Recovery Room in stable condition. [facility] Signed and Approved by: DR DEVAN TELLO . 11/01/2021 17:31:[address] [facility] Evaluation + Plan note Note Date & Type Note Facility Evaluation + Plan note No data available for this section [facility] Evaluation note Note Date & Type Note Facility Evaluation note No Information [facility] Other History general Narrative - Reported Note Date & Type Note Facility History general Narrative - Reported Type Medical History acid reflux Medical History headache Surgical History lip surgery Surgical History endometriosis Hospitalization History RSV as a baby [place] [facility] ([place]) Other Progress note Note Date & Type Note Facility Progress note No data available for this section [facility] Summary Purpose Family History No Family [...] content) Personnel Name: ADRYAN MOORE MD Address: [address] [place] [address] INFORMATION SOURCE (unrecogn ized section and content) DATE CREATED AUTHOR 04/26/2022 Octavio Mayberry [facility] DATE CREATED AUTHOR AUTHOR'S ORGANIZ ATION 09/19/2022 [facility] DATE CREATED AUTHOR AUTHOR'S ORGANIZ ATION 10/16/2023 [facility] FOR RECORDS PERTAINING TO PATIENTS WHO ARE [...] BE BASED ON THE PRIMARY CLINICAL RECORDS. [facility] [facility]. provides no warranty or guarantee of the accuracy or completeness of information in this document.
[2023-11-03 08:33] LABS: Basophils Percent Auto 0.3 % (0.2-2.0); Eosinophils Absolute Auto 0.1 10^3/uL (0.0-0.7); Hematocrit 35.1 % (36.0-48.0); Hemoglobin 11.7 g/dL (12.0-16.0); Immature Granulocytes Abs Auto 0.08 10^3/uL (0.00-0.03); Immature Granulocytes Pct Auto 0.6 % (0.0-0.5); Lymphocytes Absolute Auto 1.6 10^3/uL (1.2-3.8); Lymphocytes Percent Auto 11.9 % (20.5-60.0); Mean Corpuscular HGB Conc 33.3 g/dL (29.9-35.2); Mean Corpuscular Hemoglobin 30.7 pg (26.7-34.0); Mean Corpuscular Volume 92.1 fL (81.0-99.0); Mean Platelet Volume 10.6 fL (9.5-13.5); Monocytes Absolute Auto 0.8 10^3/uL (0.3-0.8); Monocytes Percent Auto 5.5 % (1.7-12.0); Neutrophils Absolute Auto 11.1 10^3/uL (1.4-6.5); Neutrophils Percent Auto 80.7 % (43.0-75.0); Platelet Count 292 10^3/uL (150-450); Red Blood Count 3.81 10^6/uL (4.20-5.40); Red Cell Distribution Width 12.5 % (11.0-15.0); White Blood Count 13.8 10^3/uL (4.0-11.0)
[2023-11-03 09:57] LABS: Glucose 1 Hour 122 mg/dL
== END 2023-11-03 07:11 | disposition home or self-care (01) ==
LOC: LAB 07:12
PROVIDERS: PCP Family Medicine; Visit Provider Physician Assistant
DX: Z34.93 Encounter for supervision of normal pregnancy, unspecified, third trimester (principal)
CPT/HCPCS: 36415; 82950; 85025

== ENCOUNTER 2023-11-26 10:27 | Outpatient (OUT) | payer OTHER, SELFPAY ==
--- NOTE | 2023-11-26 10:29 | US_ITS ---
[address] [address] Patient Name: JUANPABLO CHAPARRO MRN: [id number] date: 2000 Sex: F Assigned Patient Location: [facility] Current Patient Location: [facility] Accession/Order Number: [id number] Exam Date: 11/26/2023 10:29 Report Date: 11/26/2023 11:15 At the request of: DEVAN GEORGE Procedure: US OB growth EXAMINATION: US OB growth HISTORY: LGA COMPARISON: No relevant comparison available. FINDINGS: Heart Rate: 122.0 bpm Amniotic Fluid Volume: 16.4 cm Number: 1.0 Position: Cephalic presentation, longitudinal lie Maximum Vertical Pocket: 4.8 cm cm 6.0 cm cm 3.9 cm cm 1.7 cm cm BIOMETRY: BPD: 8.1 cm cm; 32 weeks 3 days; 76% HC: 29.9 cmcm; 33 weeks 1 days, 70% AC: 29.4 cm cm; 33 weeks 3 days, 95% FL: 6.1 cm cm; 31 weeks 5 days; 52.6 % % EFW: 2048.2 grams, 4 lbs. 8 oz., 88% FL/AC: 20.8 FL/BPD: 75.8 HC/AC: 1.0 GESTATIONAL AGE: Age by EDC: 31 weeks 1 days TOMASZ by EDC: 01/27/2024 Age by US: 32 weeks 1 day TOMASZ by US: 01/20/2024 US/US OB growth IMPRESSION: Abdominal circumference at the 95th percentile Estimated weight 88 percentile Electronically authenticated by: ADRYAN PRESCOTT Date: 11/26/2023 11:15
--- OUTSIDE RECORDS SUMMARY | 2023-11-26 10:43 | XMS_ITS | CCD ---
Author Name Unknown Address [address] [facility] [address] [place] [address] Organization [facility] Care Team Providers Care Senior Administrative Support Name Role Phone NazaninDeonna lozoya Unavailable OSCAR, ADRYAN Primary Care Physician LESLEY, DR LUIS ANTONIO Jorge Consulting Unavailable LESLEY, DR LUIS ANTONIO Jorge Attending Unavailable OSCAR, DR CORNELIUS Primary Care Unavailable LESLEY, DR LUIS ANTONIO Jorge Admitting Unavailable DEFRANCE, DR CORNELIUS Primary Care Unavailable DIETER GONZALEZ Admitting Unavailable DIETER GONZALEZ Attending Unavailable CHIKA LEOS Consulting Unavailable DEFRANCE, DR CORNELIUS Primary Care Unavailable JORGE, DR BOLAÑOS Consulting Unavailable HAY, DR ESPINOZA Attending Unavailable HAY, DR ESPINOZA Admitting Unavailable AURELIA CARLOS Consulting Unavailable LESLEY, DR LUIS ANTONIO Jorge Consulting Unavailable BRENNANRANCE, DR CORNELIUS Primary Care Unavailable LESLEY, DR LUIS ANTONIO Jorge Attending Unavailable LESLEY, DR LUIS ANTONIO Jorge Admitting Unavailable LESLEY, DR LUIS ANTONIO Jorge Consulting Unavailable LESLEY, DR LUIS ANTONIO Jorge Attending Unavailable OSCAR, DR CORNELIUS Primary Care Unavailable LESLEY, DR LUIS ANTONIO Jorge Admitting Unavailable OSCAR, DR CORNELIUS Primary Care Unavailable OMER, DR HARTMAN Attending Unavailable OMER, DR HARTMAN Admitting Unavailable OMER, DR HARTMAN Consulting Unavailable DEFRANCE, DR CORNELIUS Primary Care Unavailable OMER, DR HARTMAN Attending Unavailable OMER, DR HARTMAN Admitting Unavailable DEFRANCE, DR CORNELIUS Primary Care Unavailable OMER, DR HARTMAN Attending Unavailable OMER, DR HARTMAN Admitting Unavailable OMER, DR HARTMAN Consulting Unavailable YESENIA ARCHER Consulting [...] GONZALEZ Attending Unavailable DIETER GONZALEZ Admitting Unavailable Adryan Marie MD Primary Care Provider CYDNEY LEOS Attending Unavailable CYDNEY LEOS Attending Unavailable DEVAN TELLO Attending Unavailable DEVAN TELLO Attending Unavailable Allergies Allergy Classification Reported Allergen(s) Allergy Type Date of Onset Reaction(s) Facility (3 sources) Sulfacetamide Drug Allergy rash [facility] Other (1 source) Sulfonamides (Antibiotic); Translations: [sulfa drugs] Drug allergy Hyperpyrexia (finding) [facility] (1 source) Sulfonamides (Antibiotic) Drug allergy (disorder) 07-26-20 14 [facility] (3 sources) Sulfonamides (Antibiotic) Drug Intolerance 06-17-20 18 Fever, Hives, Rash [facility] Work Phone: Medications Current Medications Medication Drug Class(es) Dates [...] a day for 5 day(s) Mar, Active MV & Min w/FA-DHA ([facility]) 0.4-25 MG chewable tablet (3 sources) Start: 10-06-2023 MV & Min w/FA-DHA ([facility]) 0.4-25 MG chewable tablet CHEW 1 GUMMY BY MOUTH EVERY MORNING 0 10/06/2023 Active DO-Cov-RX-Dodson-3 ( Gummies/DHA & FA) 0.4-32.5 MG chewable tablet (3 sources) Start: 06-19-2023 End: 06-18-2024 ES-Inq-XJ-Dodson-3 ( Gummies/DHA & FA) 0.4-32.5 MG chewable tablet Indications: Missed menses Chew 32.5 mg in the morning. 30 tablet 11 06/19/2023 06/18/2024 Active Completed/Discontinued Medications Medication Drug Class(es) Dates Sig (Normalized) Sig (Original) [id number] 200 actuat albuterol 0.09 mg/actuat metered dose [...] / neomycin 3.5 mg/ml / polymyxin b [id number] unt/ml otic suspension (3 sources) Aminoglycoside Antibacterial, Polymyxin-class Antibacterial, Corticosteroid Start: 04-02-2022 Neomycin-Polymyx in-HC [id number] 3 drops left ear Three times a [...] Translations: [DYSMENORRHEA UNSPECIFIED] Onset: 10-30-2021 Chronic Other complications of (2 sources) Excessive growth affecting management of mother; Translations: [Maternal care for excessive growth, third trimester, not applicable or unspecified] 11-12-2023 Episodic Other female genital disorders (1 source) Unspecified dyspareunia; Translations: [UNSPECIFIED DYSPAREUNIA] Onset: 10-30-2021 Chronic Other gastrointestinal disorders (5 sources) Diarrhea, unspecified; Translations: [DIARRHEA UNSPECIFIED] Onset: 04-16-2022 Episodic Other and delivery including normal (2 sources) Third trimester ; Translations: [Encounter for supervision of normal , unspecified, third trimester] 11-10-2023 Episodic Other skin disorders (5 sources) Rash and other nonspecific skin eruption; Translations: [RASH OTH NONSPECIFIC SKIN ERUPTION] Onset: 08-11-2022 Episodic Substance-related disorders (2 sources) Nicotine dependence, other tobacco product, uncomplicated; Translations: [Nicotine dependence, cigarettes, uncomplicated] Onset: 08-14-2022 Chronic Unclassified (1 source) CONTACT W/AND (SUSP) EXPOS COVID-19; Translations: [CONTACT W/AND (SUSP) EXPOS COVID-19] Onset: 10-24-2021 Unclassified (3 sources) OB Reminders Onset: 06-27-2023 06-27-2023 Past or Other Problems Problem Classification Problem [...] Results Test Name Value Interpretation Reference Range Facility Urinalysis macro (dipstick) panel (U)on 11-12-2023 Bilirubin, UA Negative Negative - 4(70) +++ mg/dL [facility] Blood, UA Negative Negative - 50 Cedric/mcL [facility] Clarity, UA Clear [facility] re Color, UA Yellow [facility] Glucose, UA Negative Negative - 1999(110) ++++ mg/dL [facility] Interpretation and review of laboratory results Normal [facility] Ketones, UA Negative Negative - 160(16) ++++ mg/dL [facility] Leukocytes, UA Negative Negative - 500+++ Alessandro/mcL [facility] Nitrite, UA Negative Negative - Positive [facility] pH, UA 6.0 5 - 9 [facility] e Protein, UA Negative Negative - 1999(20) ++++ mg/dL [facility] Spec Grav, UA 1.020 1 - 1.03 [facility] Urobilinogen, UA 0.2 0.2 - 12 mg/dL [facility] ALL CBC WITH AUTO DIFFon BASOPHILS ABSOLUTE AUTO 0.0 [facility] Basophils/100 WBC (Bld) 0.3 % 0.2 - 2.0 % [facility] Eosinophils/100 WBC (Bld) 1.0 % 0.9 - 7.0 % [facility] Erythrocyte distribution width (RBC) [Ratio] 12.5 % 11.0 - 15.0 % [facility] Hematocrit (Bld) [Volume fraction] 35.1 % Low 36.0 - 48.0 % [facility] Hemoglobin (Bld) [Mass/Vol] 11.7 g/dL Low 12.0 - 16.0 g/dL [facility] IMMATURE GRANULOCYTES ABS AUTO 0.08 High [facility] Immature granulocytes/100 WBC (Bld) 0.6 % High 0.0 - 0.5 % [facility] Interpretation and review of laboratory results Abnormal [facility] LYMPHOCYTES ABSOLUTE AUTO 1.6 [facility] Lymphocytes/100 WBC (Bld) 11.9 % Low 20.5 - 60.0 % [facility] MCH (RBC) [Entitic mass] 30.7 pg 26.7 - 34.0 pg [facility] MCHC (RBC) [Mass/Vol] 33.3 g/dL 29.9 - 35.2 g/dL [facility] MCV (RBC) [Entitic vol] 92.1 fL 81.0 - 99.0 fL [facility] MONOCYTES ABSOLUTE AUTO 0.8 [facility] Monocytes/100 WBC (Bld) 5.5 % 1.7 - 12.0 % [facility] NEUTROPHILS ABSOLUTE AUTO 11.1 High [facility] Neutrophils/100 WBC (Bld) 80.7 % High 43.0 - 75.0 % [facility] Platelet mean volume (Bld) [Entitic vol] 10.6 fL 9.5 - 13.5 fL [facility] EO # 0.1 [facility] PLT 292 [facility] RBC 3.81 Low [facility] WBC 13.8 High [facility] CBC AUTO DIFFon 09-14-2022 BASO # 0.0 103/ul Normal 0.0-0.1 [facility] Comment on above: Performed By: #### B GURPREET, TSH #### [facility] [address] [place] [address] Dr. Reema Mireles Basophils/100 WBC (Bld) 0.6 % Normal 0.2-2.0 [facility] Comment on above: Performed By: #### B GURPREET, TSH #### [facility] [address] [place] [address] Dr. Reema Mireles EO # 0.0 103/ul Normal 0.0-0.7 [facility] Comment on above: Performed By: #### B GURPREET, TSH #### [facility] [address] [place] [address] Dr. Reema Mireles Eosinophils/100 WBC (Bld) 0.6 % Critically low 0.9-7.0 [facility] Comment on above: Performed By: #### B GURPREET, TSH #### [facility] [address] [place] [address] Dr. Reema Mireles Erythrocyte distribution width (RBC) [Ratio] 11.9 % Normal 11.0-15.0 [facility] Comment on above: Performed By: #### B GURPREET, TSH #### [facility] [address] [place] [address] Dr. Reema Mireles Hematocrit (Bld) [Volume fraction] 37.8 % Normal 36.0-48.0 [facility] Comment on above: Performed By: #### B GURPREET, TSH #### [facility] [address] [place] [address] Dr. Reema Mireles Hemoglobin (Bld) [Mass/Vol] 13.5 g/dL Normal 12.0-16.0 [facility] Comment on above: Performed By: #### B GURPREET, TSH #### [facility] [address] [place] [address] Dr. Reema Mireles IG # 0.01 10e3/ul Normal 0.00-0.03 [facility] Comment on above: Performed By: #### B GURPREET, TSH #### [facility] [address] [place] [address] Dr. Reema Mireles IG % 0.2 % Normal 0.0-0.5 [facility] Comment on above: Performed By: #### B GURPREET, TSH #### [facility] [address] [place] [address] Dr. Reema Mireles LYMPH # 1.6 103/ul Normal 1.2-3.8 [facility] Comment on above: Performed By: #### B GURPREET, TSH #### [facility] [address] [place] [address] Dr. Reema Mireles Lymphocytes/100 WBC (Bld) 25.5 % Normal 20.5-60.0 [facility] Comment on above: Performed By: #### B GURPREET, TSH #### [facility] [address] [place] [address] Dr. Reema Mireles MANUAL DIFF REQ NO Normal [facility] Comment on above: Performed By: #### B MP, TSH #### [facility] [address] [place] [address] Dr. Reema Mireles MCH (RBC) [Entitic mass] 30.9 pg Normal 26.7-34.0 [facility] Comment on above: Performed By: #### B MP, TSH #### [facility] [address] [place] [address] Dr. Reema Mireles MCHC (RBC) [Mass/Vol] 35.7 g/dL Critically high 29.9-35.2 [facility] Comment on above: Performed By: #### B MP, TSH #### [facility] [address] [place] [address] Dr. Reema Mireles MCV (RBC) [Entitic vol] 86.5 fL Normal 81.0-99.0 [facility] Comment on above: Performed By: #### B MP, TSH #### [facility] [address] [place] [address] Dr. Reema Mireles MONO # 0.5 103/ul Normal 0.3-0.8 [facility] Comment on above: Performed By: #### B MP, TSH #### [facility] [address] [place] [address] Dr. Reema Mireles Monocytes/100 WBC (Bld) 8.5 % Normal 1.7-12.0 [facility] Comment on above: Performed By: #### B MP, TSH #### [facility] [address] [place] [address] Dr. Reema Mireles NEUT # 4.1 103/ul Normal 1.4-6.5 [facility] Comment on above: Performed By: #### B MP, TSH #### [facility] [address] [place] [address] Dr. Reema Mireles Neutrophils/100 WBC (Bld) 64.6 % Normal 43.0-75.0 [facility] Comment on above: Performed By: #### B MP, TSH #### [facility] [address] [place] [address] Dr. Reema Mireles Platelet mean volume (Bld) [Entitic vol] 9.9 fL Normal 9.5-13.5 [facility] Comment on above: Performed By: #### B MP, TSH #### [facility] [address] [place] [address] Dr. Reema Mireles PLT 403 103/ul Normal 150-450 [facility] Comment on above: Performed By: #### B MP, TSH #### [facility] [address] [place] [address] Dr. Reema Mireles RBC 4.37 106/ul Normal 4.20-5.40 [facility] Comment on above: Performed By: #### B MP, TSH #### [facility] [address] [place] [address] Dr. Reema Mireles WBC 6.3 103/ul Normal 4.0-11.0 [facility] Comment on above: Performed By: #### B MP, TSH #### [facility] [address] [place] [address] Dr. Reema Mireles PROF 14(COMP METB)on 022 Albumin [Mass/Vol] 4.3 g/dL Normal 3.4-5.[address] [facility] Comment on above: Performed By: #### B MP, TSH #### [facility] [address] [place] [address] Dr. Reema Mireles Albumin/Globulin [Mass ratio] 1.2 {ratio} Normal [facility] Comment on above: Performed By: #### B MP, TSH #### [facility] [address] [place] [address] Dr. Reema Mireles ALP [Catalytic activity/Vol] 79 U/L Normal 46-116 [facility] Comment on above: Performed By: #### B MP, TSH #### [facility] [address] [place] [address] Dr. Reema Mireles ALT [Catalytic activity/Vol] 31 U/L Normal 14-59 [facility] Comment on above: Performed By: #### B MP, TSH #### [facility] [address] [address] [address] Reema Mireles Anion gap [Moles/Vol] 12.1 mmol/L Normal [facility] Comment on above: Performed By: #### B MP, TSH #### [facility] [address] [address] [address] Reema Mireles AST [Catalytic activity/Vol] 17 U/L Normal 15-37 [facility] Comment on above: Performed By: #### B MP, TSH #### [facility] [address] [address] [address] Reema Mireles Bilirubin [Mass/Vol] 0.4 mg/dL Normal 0.2-1.0 [facility] Comment on above: Performed By: #### B MP, TSH #### [facility] [address] [place] [address] Dr. Reema Mireles Calcium [Mass/Vol] 8.9 mg/dL Normal 8.5-10.[address] [facility] Comment on above: Performed By: #### B MP, TSH #### [facility] [address] [place] [address] Dr. Reema Mireles Chloride [Moles/Vol] 98 mmol/L Normal 98-107 [facility] Comment on above: Performed By: #### B MP, TSH #### [facility] [address] [place] [address] Dr. Reema Mireles CO2 [Moles/Vol] 27.0 mmol/L Normal 21.0-32.0 [facility] Comment on above: Performed By: #### B MP, TSH #### [facility] [address] [place] [address] Dr. Reema Mireles Creatinine [Mass/Vol] 0.65 mg/dL Normal 0.55-1.02 [facility] Comment on above: Performed By: #### B MP, TSH #### [facility] [address] [place] [address] Dr. Reema Mireles EGFR-AF VINCENTIAN >60 Normal >=60 [facility] Comment on above: Performed By: #### B MP, TSH #### [facility] [address] [address] [address] Reema Mireles EGFR-NON AF VINCENTIAN >60 Normal >=60 [facility] Comment on above: Performed By: #### B MP, TSH #### [facility] [address] [address] [address] Reema Mireles Globulin (S) [Mass/Vol] 3.5 g/dL Normal [facility] Comment on above: Performed By: #### B MP, TSH #### [facility] [address] [address] [address] Reema Mireles Glucose [Mass/Vol] 106 mg/dL Normal 74-[address] [facility] Comment on above: Performed By: #### B GURPREET, TSH #### [facility] [address] [address] [address] Reema Mireles Potassium [Moles/Vol] 3.1 mmol/L Critically low 3.5-5.1 [facility] Comment on above: Performed By: #### B GURPREET, TSH #### [facility] [address] [address] [address] Reema Mireles Protein [Mass/Vol] 7.8 g/dL Normal 6.4-8.[address] [facility] Comment on above: Performed By: #### B GURPREET, TSH #### [facility] [address] [address] [address] Reema Mireles Sodium [Moles/Vol] 134 mmol/L Critically low 136-145 [facility] Comment on above: Performed By: #### B GURPREET, TSH #### [facility] [address] [address] [address] Reema Mireles Urea nitrogen [Mass/Vol] 6.0 mg/dL Critically low 7.0-18.0 [facility] Comment on above: Performed By: #### B GURPREET, TSH #### [facility] [address] [address] [address] Reema Mireles Urea nitrogen/Creatinine [Mass ratio] 9.2 mg/mg Normal [facility] Comment on above: Performed By: #### B GURPREET, TSH #### [facility] [address] [place] [address] Dr. Reema Mireles ACETONE SERUMon 08-11-2022 ACETONE Negative Normal NEGATIVE [facility] Comment on above: Performed By: #### B MP, TSH #### [facility] [address] [place] [address] Dr. Reema Mireles CBC AUTO DIFFon 08-11-2022 BASO # 0.1 103/ul Normal 0.0-0.1 [facility] Comment on above: Performed By: #### B MP, TSH #### [facility] [address] [place] [address] Dr. Reema Mireles Basophils/100 WBC (Bld) 0.5 % Normal 0.2-2.0 [facility] Comment on above: Performed By: #### B MP, TSH #### [facility] [address] [place] [address] Dr. Reema Mireles EO # 0.1 103/ul Normal 0.0-0.7 [facility] Comment on above: Performed By: #### B MP, TSH #### [facility] [address] [place] [address] Dr. Reema Mireles Eosinophils/100 WBC (Bld) 0.7 % Critically low 0.9-7.0 [facility] Comment on above: Performed By: #### B MP, TSH #### [facility] [address] [place] [address] Dr. Reema Mireles Erythrocyte distribution width (RBC) [Ratio] 11.7 % Normal 11.0-15.0 [facility] Comment on above: Performed By: #### B MP, TSH #### [facility] [address] [place] [address] Dr. Reema Mireles Hematocrit (Bld) [Volume fraction] 37.6 % Normal 36.0-48.0 [facility] Comment on above: Performed By: #### B MP, TSH #### [facility] [address] [place] [address] Dr. Reema Mireles Hemoglobin (Bld) [Mass/Vol] 13.1 g/dL Normal 12.0-16.0 [facility] Comment on above: Performed By: #### B MP, TSH #### [facility] [address] [address] [address] Reema Mireles IG # 0.02 10e3/ul Normal 0.00-0.03 [facility] Comment on above: Performed By: #### B MP, TSH #### [facility] [address] [address] [address] Reema Mireles IG % 0.2 % Normal 0.0-0.5 [facility] Comment on above: Performed By: #### B MP, TSH #### [facility] [address] [address] [address] Reema Mireles LYMPH # 2.7 103/ul Normal 1.2-3.8 [facility] Comment on above: Performed By: #### B MP, TSH #### [facility] [address] [place] [address] Dr. Reema Mireles Lymphocytes/100 WBC (Bld) 28.5 % Normal 20.5-60.0 [facility] Comment on above: Performed By: #### B MP, TSH #### [facility] [address] [address] [address] Reema Mireles MANUAL DIFF REQ NO Normal [facility] Comment on above: Performed By: #### B MP, TSH #### [facility] [address] [address] [address] Reema Mireles MCH (RBC) [Entitic mass] 30.3 pg Normal 26.7-34.0 [facility] Comment on above: Performed By: #### B MP, TSH #### [facility] [address] [place] [address] Dr. Reema Mireles MCHC (RBC) [Mass/Vol] 34.8 g/dL Normal 29.9-35.2 [facility] Comment on above: Performed By: #### B MP, TSH #### [facility] [address] [place] [address] Dr. Reema Mireles MCV (RBC) [Entitic vol] 87.0 fL Normal 81.0-99.0 [facility] Comment on above: Performed By: #### B MP, TSH #### [facility] [address] [place] [address] Dr. Reema Mireles MONO # 0.8 103/ul Normal 0.3-0.8 [facility] Comment on above: Performed By: #### B MP, TSH #### [facility] [address] [place] [address] Dr. Reema Mireles Monocytes/100 WBC (Bld) 8.2 % Normal 1.7-12.0 [facility] Comment on above: Performed By: #### B MP, TSH #### [facility] [address] [place] [address] Dr. Reema Mireles NEUT # 5.9 103/ul Normal 1.4-6.5 [facility] Comment on above: Performed By: #### B MP, TSH #### [facility] [address] [place] [address] Dr. Reema Mireles Neutrophils/100 WBC (Bld) 61.9 % Normal 43.0-75.0 [facility] Comment on above: Performed By: #### B MP, TSH #### [facility] [address] [place] [address] Dr. Reema Mireles Platelet mean volume (Bld) [Entitic vol] 10.2 fL Normal 9.5-13.5 [facility] Comment on above: Performed By: #### B MP, TSH #### [facility] [address] [place] [address] Dr. Reema Mireles PLT 382 103/ul Normal 150-450 [facility] Comment on above: Performed By: #### B MP, TSH #### [facility] [address] [place] [address] Dr. Reema Mireles RBC 4.32 106/ul Normal 4.20-5.40 [facility] Comment on above: Performed By: #### B MP, TSH #### [facility] [address] [place] [address] Dr. Reema Mireles WBC 9.6 103/ul Normal 4.0-11.0 [facility] Comment on above: Performed By: #### B MP, TSH #### [facility] [address] [address] [address] Reema Mireles CRPon 08-11-2022 CRP [Mass/Vol] mg/L Normal <=1.0 [facility] Comment on above: Performed By: #### B MP, TSH #### [facility] [address] [place] [address] Dr. Reema Mireles ER URINE PROFILEon 2 Bilirubin Ql (U) Negative Normal NEGATIVE [facility] Comment on above: Performed By: #### B MP, TSH #### [facility] [address] [place] [address] Dr. Reema Mireles Clarity (U) CLEAR Normal CLEAR [facility] Comment on above: Performed By: #### B MP, TSH #### [facility] [address] [place] [address] Dr. Reema Mireles Color (U) LT. YELLOW Normal YELLOW [facility] Comment on above: Performed By: #### B MP, TSH #### [facility] [address] [place] [address] Dr. Reema Mireles ERUD A micrscopic examination will be performed if indicated. Normal [facility] Comment on above: Performed By: #### B MP, TSH #### [facility] [address] [place] [address] Dr. Reema Mireles Glucose Ql (U) Negative Normal NEGATIVE [facility] Comment on above: Performed By: #### B MP, TSH #### [facility] [address] [place] [address] Dr. Reema Mireles Hemoglobin Ql (U) Negative Normal NEGATIVE [facility] Comment on above: Performed By: #### B MP, TSH #### [facility] [address] [place] [address] Dr. Reema Mireles Ketones Ql (U) Negative Normal NEGATIVE [facility] Comment on above: Performed By: #### B MP, TSH #### [facility] [address] [place] [address] Dr. Reema Mireles LEUKOCYTES Negative Normal NEGATIVE [facility] Comment on above: Performed By: #### B MP, TSH #### [facility] [address] [address] [address] Reema Mireles Nitrite Ql (U) Negative Normal NEGATIVE [facility] Comment on above: Performed By: #### B MP, TSH #### [facility] [address] [address] [address] Reema Mireles pH (U) 5.5 [pH] Normal 5-9 [facility] Comment on above: Performed By: #### B MP, TSH #### [facility] [address] [place] [address] Dr. Reema Mireles SPEC GRAVITY <=1.005 Abnormal 1.005-<=1.025 [facility] Comment on above: Performed By: #### B MP, TSH #### [facility] [address] [place] [address] Dr. Reema Mireles UA PROTEIN Negative Normal NEGATIVE/ TRACE [facility] Comment on above: Performed By: #### B MP, TSH #### [facility] [address] [place] [address] Dr. Reema Mireles UR MICRO IND NOT INDICATED Normal [facility] Comment on above: Performed By: #### B MP, TSH #### [facility] [address] [place] [address] Dr. Reema Mireles Urobilinogen Qn (U) 0.2 {Renny'U}/dL Normal 0.2 - 1. 0 [facility] Comment on above: Performed By: #### B MP, TSH #### [facility] [address] [place] [address] Dr. Reema Mireles LIPASEon 08-11-2022 Lipase [Catalytic activity/Vol] 71.0 U/L Critically low 73.0-393.0 [facility] Comment on above: Performed By: #### B MP, TSH #### [facility] [address] [place] [address] Dr. Reema Mireles URon 08-11-2022 , QUAL Negative Normal NEGATIVE [facility] Comment on above: Performed By: #### C VDTBH #### [facility] [address] [address] [address] Reema Mireles PROF 14(COMP METB)on 022 Albumin [Mass/Vol] 4.3 g/dL Normal 3.4-5.[address] [facility] Comment on above: Performed By: #### B MP, TSH #### [facility] [address] [address] [address] Reema Mireles Albumin/Globulin [Mass ratio] 1.2 {ratio} Normal [facility] Comment on above: Performed By: #### B MP, TSH #### [facility] [address] [place] [address] Dr. Reema Mireles ALP [Catalytic activity/Vol] 70 U/L Normal 46-116 [facility] Comment on above: Performed By: #### B MP, TSH #### [facility] [address] [place] [address] Dr. Reema Mireles ALT [Catalytic activity/Vol] 16 U/L Normal 14-59 [facility] Comment on above: Performed By: #### B MP, TSH #### [facility] [address] [place] [address] Dr. Reema Mireles Anion gap [Moles/Vol] 10.5 mmol/L Normal [facility] Comment on above: Performed By: #### B MP, TSH #### [facility] [address] [place] [address] Dr. Reema Mireles AST [Catalytic activity/Vol] 8 U/L Critically low 15-37 [facility] Comment on above: Performed By: #### B MP, TSH #### [facility] [address] [address] [address] Reema Mireles Bilirubin [Mass/Vol] 0.3 mg/dL Normal 0.2-1.0 [facility] Comment on above: Performed By: #### B MP, TSH #### [facility] [address] [place] [address] Dr. Reema Mireles Calcium [Mass/Vol] 9.0 mg/dL Normal 8.5-10.[address] [facility] Comment on above: Performed By: #### B MP, TSH #### [facility] [address] [address] [address] Reema Mireles Chloride [Moles/Vol] 104 mmol/L Normal 98-107 [facility] Comment on above: Performed By: #### B MP, TSH #### [facility] [address] [address] [address] Reema Mireles CO2 [Moles/Vol] 26.5 mmol/L Normal 21.0-32.0 [facility] Comment on above: Performed By: #### B MP, TSH #### [facility] [address] [address] [address] Reema Mireles Creatinine [Mass/Vol] 0.79 mg/dL Normal 0.55-1.02 [facility] Comment on above: Performed By: #### B MP, TSH #### [facility] [address] [place] [address] Dr. Reema Mireles EGFR-AF VINCENTIAN >60 Normal >=60 [facility] Comment on above: Performed By: #### B MP, TSH #### [facility] [address] [place] [address] Dr. Reema Mireles EGFR-NON AF VINCENTIAN >60 Normal >=60 [facility] Comment on above: Performed By: #### B MP, TSH #### [facility] [address] [address] [address] Reema Mireles Globulin (S) [Mass/Vol] 3.5 g/dL Normal [facility] Comment on above: Performed By: #### B MP, TSH #### [facility] [address] [address] [address] Reema Mireles Glucose [Mass/Vol] 106 mg/dL Normal 74-[address] [facility] Comment on above: Performed By: #### B MP, TSH #### [facility] [address] [address] [address] Reema Mireles Potassium [Moles/Vol] 3.0 mmol/L Critically low 3.5-5.1 [facility] Comment on above: Performed By: #### B MP, TSH #### [facility] [address] [address] [address] Reema Mireles Protein [Mass/Vol] 7.8 g/dL Normal 6.4-8.[address] [facility] Comment on above: Performed By: #### B MP, TSH #### [facility] [address] [address] [address] Reema Mireles Sodium [Moles/Vol] 138 mmol/L Normal 136-[address] [facility] Comment on above: Performed By: #### B MP, TSH #### [facility] [address] [place] [address] Dr. Reema Mireles Urea nitrogen [Mass/Vol] 8.0 mg/dL Normal 7.0-18.0 [facility] Comment on above: Performed By: #### B MP, TSH #### [facility] [address] [place] [address] Dr. Reema Mireles Urea nitrogen/Creatinine [Mass ratio] 10.1 mg/mg Normal [facility] Comment on above: Performed By: #### B MP, TSH #### [facility] [address] [place] [address] Dr. Reema Mireles PROTIMEon 08-11-2022 INR Coag (PPP) [Relative time] 1.00 {INR} Normal [facility] Comment on above: Performed By: #### P T, PTT #### [facility] [address] [place] [address] Dr. Reema Mireles INR GUIDELINES SEE BELOW Normal [facility] Comment on above: Result Comment: FELICIANO RED INR: 2.0 - 3.0 CONDITIONS NOT LISTED BELOW 2.5 - 3.5 FOR PROSTHETIC HEART VALVE REPLACEMENT 2.5 - 3.5 RECURRENT THROMBOSIS Performed By: #### P T, PTT #### [facility] [address] [place] [address] Dr. Reema Mireles PT Coag (PPP) [Time] 10.8 s Normal 9.0-11.6 [facility] Comment on above: Performed By: #### P T, PTT #### [facility] [address] [place] [address] Dr. Reema Mireles PTTon 08-11-2022 aPTT Coag (Bld) [Time] 30.8 s Normal 22.3-36.2 [facility] Comment on above: Performed By: #### P T, PTT #### [facility] [address] [place] [address] Dr. Reema Mireles [facility] SED RATE 10 mm/hr Normal <=20 [facility] Comment on above: Performed By: #### B MP, TSH #### [facility] [address] [place] [address] Dr. Reema Mireles TSHon 08-11-2022 TSH 3.313 uIU/mL Normal 0.358-3.740 [facility] Comment on above: Performed By: #### B MP, TSH #### [facility] [address] [place] [address] Dr. Reema Mireles Discharge Instructionson Discharge Instructions [id number] #1.00CD:127 Normal [facility] Comment on above: Other Comment: wrong patient STOOL CULTUREon 04-20-2022 Campylobacter Culture Final report Normal [facility] Comment on above: Performed By: #### B MP, TSH #### [facility] [address] [place] [address] Dr. Reema Mireles E coli Shiga Toxin EIA Negative Normal Negative [facility] Comment on above: Performed By: #### B MP, TSH #### [facility] [address] [place] [address] Dr. Reema Mireles Result 1 Comment Normal [facility] Comment on above: Result Comment: No S almonella or Shigella recovered. Performed By: #### B MP, TSH #### [facility] [address] [place] [address] Dr. Reema Mireles Result Comment: No C ampylobacter species isolated. Salmonella/Shigella Screen Final report Normal [facility] Comment on above: Performed By: #### B MP, TSH #### [facility] [address] [place] [address] Dr. Reema Mireles Coding Summary.on 04-14-2022 Coding Summary. CD:[id number] Gh0bWw+PGhlYWQ+PE1FV MKiR88kiKAqjW8AL6lOQ O8YIBIWOFJIBT8JSJ9ei CQ6XHvkM5AyieMw QfqriOApHU87AIt1ZXL7 pAllBFdexH2fuKImM8p8 LlIxIC75xQ48CHoeKYIi DpN5ZkFozopyjSVa L4qoEsTfoZZtTho+PHRh YmxlIHdpZHRoPScxMDAl LaDjqJfhEB9mVp8gCCSp LWNvbGxhcHNlOiBj b3zgHJZlJKxrUW8ibQjc V5RoiTW7TGHse3u6Oj32 dHI+UNJuWBQ3dWyoZAvc o926FmVds7etGEO0 cTThXTeoKXD7N78au7J5 XUUsXYBnWVV7iJJ9hF6w rNadvqbuH5BqfCQrYmM8 MXR7oNMpyF9ypIvy dogjhJ4yFta+R79RXW8D MNPLHW3XMpl1W9IcKlyn dHI+HQ11OJZcPG33rWQk xKLpt5bnmRq4EeNx OMLdLUH6yOvnNBzfv6Ud XCFsD96emDHaq3X9UQHu iSgbbPErUkHabSP0xQ5g QCsehphbe4rvxixp Vbjoo2ketb74kJ42G79v RJnxIPIuAPE4CGWqXLUy vHzsyb0ibJ3xPp1+IDxj c9cps6epqHi8HbKt LBApilQvhAvpNWH3c1Ia Fj86D3XcbSgce4AjRpt8 ht28tSFmr7A6nOD7SQyc KJMnlH2gEQygDnT9 JOGwFeWvoN04jLIcBZdy Ac9csMamnNrwAH5jMMLc aljlVLNoaY8zFRMhgRKt xWmjZV4xLLGeenlh q113OhZeAON1YSImfNMb S8DjuG5fGdYnEBQhNVVh S8TdxRVhJMmdY573ILwm ItL2ZEWyviTmV9Cl RBSjfYugDtK9b6U3Nt9E n8TopabwOGS0LJkhSXH3 MsI1BqFlHyX8I1FlAsc1 BDNjdPzoTO6zD9Mf PFMpwysnlmafuHH4JFDg JAIvtY84tDErQZxlGm1h i5E5p991IFOhRKIzqO25 Mu7uzIhvNGHcsVBY aJ1pafunj2phoyebYwMr EDEyCRx5ZZw7KPKxaEck LfAtEKU5VqD5JDG1hDYc tZ3svUtiwzdxvK0t Oyc+R89egS6zMFF5KOH0 jlbgUTTqvvFrKC26PL93 X1KiQievbJGlyWG+PGRp onMisQwtVQ6wUxCq p6ute9ZjXRldR4EjKOTk DYjcAbi9FCRsZKO3vYS6 eP8jVAUiCXhzm7U0rLC9 N4NkmeUpwf5cb5cl HWIoNRbzS21gkLDuf0C9 IFNhdYG1IJYmoUcqGuKy xU83Emq+VKTfnPpzu0Nm Egela8zlx7kwjAl8 IjMwJSIgdmFsaWduPSJ0 f4ShRh33C22eVFgvDGEr RZWeJSAfGVCztXnbud6o yO6bPf8+PGNvbCB3 eXH7eJ2bVUGgClN4ZOzu Y459AbFodSWaKjvxs4he u2ipnEg8IjLdXYYnldTs mQceNHP8k3BwHq43 M68nVKxlCGGcOZKvBOWe KHEmjLccom0rqE8hJr6+ TP9ci4mrfb19oW77oTG+ QZIoTFV4aFttYKla AUEzmV6kLLduNkN8WYVg YzXzdF87wDXtAJhlRs0v nZemdGrxNH6gBEQigjdq z233ElYao5dpAPRl nNSzOLvgEYL3W51xs8Z9 AINeNTIcBKL4wQK9oN7z bGlnbjogbGVmdDsgdmVy sPuyQUboANxmW763 IHRvcDsnPlBhdGllbnQg OhTvHYb0Q8MxXvr6ZAGu sPflVM3kqZBwPOogHn3a pIkwtVhnHL6bESLb liead829AjNay6keFVXl zWKaUOlmXCE0W00im4P9 OOOpQNMoIKK9cDT2kM8b bGlnbjogbGVmdDsg ltZcpHchQVomKGphY283 IHRvcDsnPkJpcnRoIERh hRW7HF86AQ22mIMbu3K2 tET8W2BxHXAdsppa andwbUA3OLPnTIBzfR22 Wt9xwQzoCp5pGBBrLRI3 MBAotWKhS2ZquX0oSbYy CUVeQYRdB2JfxKNb KDyaU892WTzoMyP5YULc fmWwH5HbWMQalMwtZrF8 a2T8Zm0DF1G9EV43UN14 dYIxv6M0dCH5E4Ip SCVdxkhttowmqSE1QFHf ASMbwF13Rv9bfGxtBz4w OGQsFST3DXMzeZNvI1Eh xO7eKgUwKCQqWQXh B2XzyFEcJGtoG818SLff GlQ9FVXhvmLvU5BoHDBy pBqjKyW5p7E4Jm9IZHv5 VF64WB12kDFue7L2 gUL4S2DfUVFjfiqqamsz gUW5NOLuMXPpaZ04Gy2v nBbjYi1oCTCrVPZ1RYIj eTRlT0EtiY3vWsOv MTDfXYVeO4CnbORkWTnc C104APzuTnT2BUUahoLd M0EeCEKkoAvrJjP0i4H7 Rp7DVSNvZB87YXL9 zHY6MD09XM80K0SzBvgs dGFibGU+PHRhYmxlIHdp ZHRoPScxMDAlJyBzdHls OK4qDg5gLLGrWCMh iYqziSNlFbVky7wxWCXd ZDmfTP3wcLmvS0TviBA5 WNHgz5q6Eg46D14cL0Vg dXA+XBNenFN1cHN9 lK6jOdGvJrC7YNfzT085 XoShqEPqScjqq2sdm7nb vZo0RzE3UVFcnoYdsBbe QIH7k9JyJu56N27x IHdpZHRoPSIxNSUiIHZh wQelug0joR5aZi4+PGNv mEZ0qZB3hS5jCwXsVyH9 TRwyQ003LpFmtGZt Jiwqy0rpq6ndxHn3KgKb WWDztvBjgNucYHU3m2Nd Ds78P8GfxQuzz9RzYcn7 ub39aWSwn0O1dQT3 S4VrNSFrxezziDEphVie KB4rNVHnvrncUKYvdY9h TPExY5h0FqGdKgM7JKun B6PlleQ3WMNphILy BGdsTCE4I63bv7H3XHOt UQHcAXZ9bVW4bC0nhLtr bjogbGVmdDsgdmVydGlj GMojYBnoK415DOBb zMnsSCNoyK0cCZGfyOTy sUstZT2fEMEfzpdaYrkM KCGJU23TV7lMYJPUPXIC FEX7O1GwIbe1SMYa jGurEQ4hhPUzJMvgUp3u mPijfXkzQL1lROHyeuwu OAIjkZ0tNFQdlPXrlArs DP2aWEIdbtgzh502 JwVcPWZ4CGVdeTUeL0Qx iN4sWkLoCTOfCPPnT2Ja aRVtEInvF981EDqyXvF9 HNPmonMfX4DoMEWr fUmkAwL4n0I6Qv4uUv9w ZT0jQTElCI53XP85gRMv i8R6cBT7I9UbINLgyrpp ihtapOR2YQLqUKQd cY76sAMwVXviSj2fe8N5 l671MPFdNAHfxB54Ao0f bKtqFMHkjZYHoL7lcsgu j8prddwkRlByFWHo GIa2HSl7LREkeVycJyKm SRO4VdF7UMM2aSByhU1t hBqxjnahvV0jYpd+MjAg FMKhsrW9T9NoRuc0 YPJwuOdcML8rgIIyFEwz Yd2twButsDigFK0sKDSy sogmEJGoaL9hYPUjbVQn qThkHL8rBWVimbnw w255NhCwJUG2OSKfmDPi U1MevS3oViOdIRWbKBBv B8InyVRxJIopG233TXwq QfC0FOZthqNkG3Bk SSCfxGtjSzF2b2F7Ou5N NY9zmWG0Y4NgXfu0LQCq oEtuMP8mjJTbHLoqMk9c rIrvfIafQF8lFOEd vcnfPOLjgP9gOKLetHLd sImiTH3tYRYcqmmeq451 SnDwKLI0IZAqqQWuG4Bx sL5kRnAmBNOlKVFj N2VqpJLeADzgP735MHfg PqS7RNIavaPaU6HhMWWo eKnmHqX6a9C0Gm7QrZGt I9ZoY7u8S2GtAydg dHI+VS53QNObDI95vDLw sQBut4pceOf9DiMePJJd QGE4uUnvPZjcf0HvWFWo A76spZTfx9A4JMKv iActnTGzLsGjhLP6lJ8j TPmnzhhoo1dwypocTdht d3uvav32bB61F98cVJvc ZHRoPSIzMCUiIHZh cEfdvv4lsI2yTy5+PGNv vOU3jWZ3oY0bHaXpCiQ0 JYdtT225BkEiaNRhPaeg k1jhs7vxaYr8QjUk FEJfzjPynPfdHOJ6u7Ef Dq35A09xKJvfLOUsRPQx TMZwOWVbjHzear2xqF1n Ii8+IJ2js7fkqc92 sX60nIS+BWIoHAJ1cCzb GOocQOVlvS7uSQivOjC3 UEYxSpUmnH60nNAfQCmd Gf5tvShsqJvyGN1h VJWnvxrim347MuWfj2yz FVZvcCJpSGunXJZ9Z54n h0I3UKTjTEVhSQT7rDA8 dY5ttOfnuhphhWOe dDsgdmVydGljYWwtYWxp I045GLGrhCzaNqPvfHPn K8sakyOFQH3gZlwxsQO+ PYRySHY7hCcpFYsj KSWpwA3nHWLvE6k4CfOx VtJ0LNgjZ3SyroZ8TCBw eTWaDGEveSCGeD7jbquc k7voivjpSwIqNCNm RYl8UGf0HZQpqYcoBhLr WKS1SrQ5CLG6aGRmxB8y oDvayzeyfT9uJhq+RklO OjwvdGQ+PHRkIHN0 hPkxEIhaJLQcpE4xYSBt C5l2KkMvSxK5DFuhN9Lj zzV5IIDljLTyFYYtcGJF sE8dzteeb0qsruic ZiSxUMAnEAz8UJl3OZSr oXdnBsIyVVM1DhH9KMJ8 pEVroS7buPwhtqfhzO2i Oyc+TVJOOjwvdGQ+ ZESiIAS5yWsgTTvqUTCo pW9nIGPzK5e1GiOgPlN5 XYftO8LatnD2UHAxzGFy QDXuaOQEjR7ivsxt v1pybvrrGsBsJPYoXDe4 WJj0DLUwjTdbPxJvTFN6 AzD5ZEW8fMFjkL1ntRyf mumcuF6hJax+UGF5 DHU2ZE66PA30R8OgKcrf dGFibGU+PHRhYmxlIHdp ZHRoPScxMDAlJyBzdHls XC9oOv7dDJIyXXHg bGxh (more content not included)... Normal [facility] CBC AUTO DIFFon 04-13-2022 BASO # 0.1 103/ul Normal 0.0-0.1 [facility] Comment on above: Performed By: #### C VDTBH #### [facility] [address] [place] [address] Dr. Reema Mireles Basophils/100 WBC (Bld) 0.6 % Normal 0.2-2.0 [facility] Comment on above: Performed By: #### C VDTBH #### [facility] [address] [place] [address] Dr. Reema Mireles EO # 0.0 103/ul Normal 0.0-0.7 [facility] Comment on above: Performed By: #### C VDTBH #### [facility] [address] [place] [address] Dr. Reema Mireles Eosinophils/100 WBC (Bld) 0.2 % Critically low 0.9-7.0 [facility] Comment on above: Performed By: #### C VDTBH #### [facility] [address] [place] [address] Dr. Reema Mireles Erythrocyte distribution width (RBC) [Ratio] 11.4 % Normal 11.0-15.0 [facility] Comment on above: Performed By: #### C VDTBH #### [facility] [address] [place] [address] Dr. Reema Mireles Hematocrit (Bld) [Volume fraction] 38.3 % Normal 36.0-48.0 [facility] Comment on above: Performed By: #### C VDTBH #### [facility] [address] [place] [address] Dr. Reema Mireles Hemoglobin (Bld) [Mass/Vol] 13.4 g/dL Normal 12.0-16.0 [facility] Comment on above: Performed By: #### C VDTBH #### [facility] [address] [place] [address] Dr. Reema Mireles IG # 0.01 10e3/ul Normal 0.00-0.03 [facility] Comment on above: Performed By: #### C VDTBH #### [facility] [address] [place] [address] Dr. Reema Mireles IG % 0.1 % Normal 0.0-0.5 [facility] Comment on above: Performed By: #### C VDTBH #### [facility] [address] [place] [address] Dr. Reema Mireles LYMPH # 1.8 103/ul Normal 1.2-3.8 [facility] Comment on above: Performed By: #### C VDTBH #### [facility] [address] [place] [address] Dr. Reema Mireles Lymphocytes/100 WBC (Bld) 22.2 % Normal 20.5-60.0 [facility] Comment on above: Performed By: #### C VDTBH #### [facility] [address] [place] [address] Dr. Reema Mireles MANUAL DIFF REQ NO Normal [facility] Comment on above: Performed By: #### C VDTBH #### [facility] [address] [place] [address] Dr. Reema Mireles MCH (RBC) [Entitic mass] 30.6 pg Normal 26.7-34.0 [facility] Comment on above: Performed By: #### C VDTBH #### [facility] [address] [place] [address] Dr. Reema Mireles MCHC (RBC) [Mass/Vol] 35.0 g/dL Normal 29.9-35.2 [facility] Comment on above: Performed By: #### C VDTBH #### [facility] [address] [place] [address] Dr. Reema Mireles MCV (RBC) [Entitic vol] 87.4 fL Normal 81.0-99.0 [facility] Comment on above: Performed By: #### C VDTBH #### [facility] [address] [place] [address] Dr. Reema Mireles MONO # 0.7 103/ul Normal 0.3-0.8 [facility] Comment on above: Performed By: #### C VDTBH #### [facility] [address] [place] [address] Dr. Reema Mireles Monocytes/100 WBC (Bld) 8.2 % Normal 1.7-12.0 [facility] Comment on above: Performed By: #### C VDTBH #### [facility] [address] [place] [address] Dr. Reema Mireles NEUT # 5.5 103/ul Normal 1.4-6.5 [facility] Comment on above: Performed By: #### C VDTBH #### [facility] [address] [place] [address] Dr. Reema Mireles Neutrophils/100 WBC (Bld) 68.7 % Normal 43.0-75.0 [facility] Comment on above: Performed By: #### C VDTBH #### [facility] [address] [place] [address] Dr. Reema Mireles Platelet mean volume (Bld) [Entitic vol] 10.1 fL Normal 9.5-13.5 [facility] Comment on above: Performed By: #### C VDTBH #### [facility] [address] [place] [address] Dr. Reema Mireles PLT 404 103/ul Normal 150-450 [facility] Comment on above: Performed By: #### C VDTBH #### [facility] [address] [place] [address] Dr. Reema Mireles RBC 4.38 106/ul Normal 4.20-5.40 [facility] Comment on above: Performed By: #### C VDTBH #### [facility] [address] [place], [place] [address] Dr. Reema Mireles WBC 8.0 103/ul Normal 4.0-11.0 [facility] Comment on above: Performed By: #### C VDTBH #### [facility] [address], [place] [address] HEAD WO CONon [...] by: AURELIA CARLOS Date: 2022-04-13 16:29 Normal [facility] Discharge Instructionson Discharge Instructions [id number] #1.00CD:127 Normal [facility] ED Note-Physicianon 04-13-20 22 ED Note-Physician Basic Information Time Seen: Lata Hardy M.D. 04/12/2022 19:56 Chief Complaint Pt. presents to the ed with c/o headache and vertigo since thursday. Pt. was seen at [place] and started on prednisone. pt. stopped taking [...] states she was seen at [facility] discharged home. She went to urgent [...] She has been seen at [facility] and started on prednisone. Possible her [...] medications Follow-up With When Contact Information ADRYAN MARIE In 3 days 04/15/2022 EDT [address] [place] [address]- Business (1) Additional Instructions: Return to the [...] Diagnostic Results No qualifying data available. Normal [facility] Comment on above: Result Comment: Elec tronically Signed By: Antony Villa, Lata Baxter\.br\Date and Time Signed: 04/13/22 04:56 EDT ER URINE PROFILEon 2 Bilirubin Ql (U) Negative Normal NEGATIVE [facility] Comment on above: Performed By: #### P REGU, ERUR #### [facility] [address] [place] [address] Dr. Reema Mireles Clarity (U) CLEAR Normal CLEAR [facility] Comment on above: Performed By: #### P REGU, ERUR #### [facility] [address] [place] [address] Dr. Reema Mireles Color (U) LT. YELLOW Normal YELLOW [facility] Comment on above: Performed By: #### P REGU, ERUR #### [facility] [address] [address] [address] Reema Mireles ERUSALAZAR A micrscopic examination will be performed if indicated. Normal [facility] Comment on above: Performed By: #### P REGU, ERUR #### [facility] [address] [address] [address] Reema Mireles Glucose Ql (U) Negative Normal NEGATIVE [facility] Comment on above: Performed By: #### P REGU, ERUR #### [facility] [address] [address] [address] Reema Mireles Hemoglobin Ql (U) Negative Normal NEGATIVE [facility] Comment on above: Performed By: #### P REGU, ERUR #### [facility] [address] [place] [address] Dr. Reema Mireles Ketones Ql (U) Negative Normal NEGATIVE [facility] Comment on above: Performed By: #### P REGU, ERUR #### [facility] [address] [place] [address] Dr. Reema Mireles LEUKOCYTES Negative Normal NEGATIVE [facility] Comment on above: Performed By: #### P REGU, ERUR #### [facility] [address] [place] [address] Dr. Reema Mireles Nitrite Ql (U) Negative Normal NEGATIVE [facility] Comment on above: Performed By: #### P REGU, ERUR #### [facility] [address] [place] [address] Dr. Reema Mireles pH (U) 6.5 [pH] Normal 5-9 [facility] Comment on above: Performed By: #### P REGU, ERUR #### [facility] [address] [place] [address] Dr. Reema Mireles SPEC GRAVITY 1.005 Normal 1.005-<=1.025 [facility] Comment on above: Performed By: #### P REGU, ERUR #### [facility] [address] [place] [address] Dr. Reema Mireles UA PROTEIN Negative Normal NEGATIVE/ TRACE [facility] Comment on above: Performed By: #### P REGU, ERUR #### [facility] [address] [place] [address] Dr. Reema Mireles UR MICRO IND NOT INDICATED Normal [facility] Comment on above: Performed By: #### P REGU, ERUR #### [facility] [address] [place] [address] Dr. Reema Mireles Urobilinogen Qn (U) 0.2 {Renny'U}/dL Normal 0.2 - 1. 0 [facility] Comment on above: Performed By: #### P REGU, ERUR #### [facility] [address] [address] [address] Reema Mireles URon 04-13-2022 , QUAL Negative Normal NEGATIVE [facility] Comment on above: Performed By: #### P REGU, ERUR #### [facility] [address] [address] [address] Reema Mireles PROF CHEM 8 (BAS METB)on Anion gap [Moles/Vol] 14.0 mmol/L Normal [facility] Comment on above: Performed By: #### B MP, TSH #### [facility] [address] [place] [address] Dr. Reema Mireles Calcium [Mass/Vol] 9.2 mg/dL Normal 8.5-10.[address] [facility] Comment on above: Performed By: #### B MP, TSH #### [facility] [address] [address] [address] Reema Mireles Chloride [Moles/Vol] 102 mmol/L Normal 98-107 [facility] Comment on above: Performed By: #### B MP, TSH #### [facility] [address] [address] [address] Reema Mireles CO2 [Moles/Vol] 26.3 mmol/L Normal 21.0-32.0 [facility] Comment on above: Performed By: #### B MP, TSH #### [facility] [address] [address] [address] Reema Mireles Creatinine [Mass/Vol] 0.65 mg/dL Normal 0.55-1.02 [facility] Comment on above: Performed By: #### B MP, TSH #### [facility] [address] [place] [address] Dr. Reema Mireles EGFR-AF VINCENTIAN >60 Normal >=60 [facility] Comment on above: Performed By: #### B MP, TSH #### [facility] [address] [address] [address] Reema Mireles EGFR-NON AF VINCENTIAN >60 Normal >=60 [facility] Comment on above: Performed By: #### B MP, TSH #### [facility] [address] [address] [address] Reema Mireles Glucose [Mass/Vol] 92 mg/dL Normal 74-[address] [facility] Comment on above: Performed By: #### B MP, TSH #### [facility] [address] [address] [address] Reema Mireles Potassium [Moles/Vol] 3.3 mmol/L Critically low 3.5-5.1 [facility] Comment on above: Performed By: #### B MP, TSH #### [facility] [address] [address] [address] Reema Mireles Sodium [Moles/Vol] 139 mmol/L Normal 136-[address] [facility] Comment on above: Performed By: #### B GURPREET, TSH #### [facility] [address] [address] [address] Reema Mireles Urea nitrogen [Mass/Vol] 8.0 mg/dL Normal 7.0-18.0 [facility] Comment on above: Performed By: #### B GURPREET, TSH #### [facility] [address] [place] [address] Dr. Reema Mireles Urea nitrogen/Creatinine [Mass ratio] 12.3 mg/mg Normal [facility] Comment on above: Performed By: #### B GURPREET, TSH #### [facility] [address] [address] [address] Reema Mireles TSHon 04-13-2022 TSH 1.293 uIU/mL Normal 0.358-3.740 [facility] Comment on above: Performed By: #### B MP, TSH #### [facility] [address] [place] [address] Dr. Reema Mireles Consent for Treatmenton 03-28 Consent for Treatment [id number] Normal [facility] ED Clinical Summaryon 2021 ED Clinical Summary [address] [address] ED Clinical Summary Person Information Name: JUANPABLO CHAPARRO[place] Age: 21 Years : 2000 Sex: Female Language: Yi PCP: ADRYAN MARIE MD Marital Status: Single Phone: [phone] Visit Id: Visit Reason: Vertigo - recurrent; [...] 04/12/2022 21:07:38 04/12/2022 21:07:38 04/12/2022 21:07:38 ADDRESS: [address] [place] [id number] PHYS DOC NOTES: MEDICAL INFORMATION: Prescriptions Given: PATIENT EDUCATION INFORMATION: Instructions: General Headache Without Cause; Vertigo Follow up: With: Address: When: ADRYAN MARIE [address] [place], [place] [id number] [employer] (1) In 3 days 04/15/2022 Comments: Return to the emergency room if her headache gets worse, vertigo becomes persistent or any new symptoms DIAGNOSIS: 1:Vertigo; 2:Headache Normal [facility] ED Patient Education Noteon 04-12-2022 ED Patient [...] you feel dizzy. General instructions ? Take iepm-zkd-ktijfcn and prescription medicines only as told by [...] 06/24/2006 Document Revised: 08/08/2019 Document Reviewed: 08/08/2019 [employer] Patient Education ? 2020 [employer] Neurology General Headache Without Cause A [...] with your condition: Managing pain ? Take oyxp-ihn-dimxkgs and prescription medicines only as told by [...] of beer (more content not included)... Normal [facility] ED Patient Summaryon 022 ED Patient Summary [address] [address] Patient Discharge Instructions Person Information Name: JUANPABLO CHAPARRO Age: 21 Years Arrival Date: 04/12/2022 19:22:40 Discharge Diagnosis: 1:Vertigo; 2:Headache Primary Care Physician: ADRYAN MARIE MD Provider Information Primary Provider: Lata Hardy M.D. Advanced Hole Digger Operator:None The exam and treatment you received in the Emergency Department were for an urgent problem and are not intended as complete care. It is important that you follow up with a doctor, nurse practitioner, or physician?s assistant professor of philosophy for ongoing care. If your symptoms become worse or you do not improve as expected and you are unable to reach your usual health care provider, you should return to the Emergency Department. We are available 24 hours a day. JUANPABLO CHAPARRO has been given the following list of patient education materials, prescriptions and follow-up instructions: Follow-up Instructions: With: Address: When: ADRYAN MARIE [address] [place] [address] [employer] ([employer] In 3 days 04/15/2022 Comments: Return to [...] opioids can be used to help relieve nbaeltbj-cc-dmdcey pain and are often prescribed following a [...] guidance from the Food and Drug Administration (www.fda.gov/Drugs/R esourcesForYou). ? Visit www.cdc.gov/drugover dose to learn about the risks of opioids abuse and overdose. ? If you believe you may be struggling with addiction, tel (more content not included)... Normal [facility] CBC AUTO DIFFon 04-09-2022 BASO # 0.1 103/ul Normal 0.0-0.1 [facility] Comment on above: Performed By: #### B MP, TSH #### [facility] [address] [address] [address] Reema Mireles Basophils/100 WBC (Bld) 0.5 % Normal 0.2-2.0 [facility] Comment on above: Performed By: #### B MP, TSH #### [facility] [address] [place] [address] Dr. Reema Mireles EO # 0.1 103/ul Normal 0.0-0.7 [facility] Comment on above: Performed By: #### B MP, TSH #### [facility] [address] [place] [address] Dr. Reema Mireles Eosinophils/100 WBC (Bld) 1.0 % Normal 0.9-7.0 [facility] Comment on above: Performed By: #### B MP, TSH #### [facility] [address] [place] [address] Dr. Reema Mireles Erythrocyte distribution width (RBC) [Ratio] 11.7 % Normal 11.0-15.0 [facility] Comment on above: Performed By: #### B MP, TSH #### [facility] [address] [place] [address] Dr. Reema Mireles Hematocrit (Bld) [Volume fraction] 37.2 % Normal 36.0-48.0 [facility] Comment on above: Performed By: #### B MP, TSH #### [facility] [address] [place] [address] Dr. Reema Mireles Hemoglobin (Bld) [Mass/Vol] 12.8 g/dL Normal 12.0-16.0 [facility] Comment on above: Performed By: #### B MP, TSH #### [facility] [address] [place] [address] Dr. Reema Mireles IG # 0.02 10e3/ul Normal 0.00-0.03 [facility] Comment on above: Performed By: #### B MP, TSH #### [facility] [address] [place] [address] Dr. Reema Mireles IG % 0.2 % Normal 0.0-0.5 [facility] Comment on above: Performed By: #### B MP, TSH #### [facility] [address] [place] [address] Dr. Reema Mireles LYMPH # 1.8 103/ul Normal 1.2-3.8 [facility] Comment on above: Performed By: #### B MP, TSH #### [facility] [address] [address] [address] Reema Mireles Lymphocytes/100 WBC (Bld) 19.0 % Critically low 20.5-60.0 [facility] Comment on above: Performed By: #### B MP, TSH #### [facility] [address] [place] [address] Dr. Reema Mireles MANUAL DIFF REQ NO Normal [facility] Comment on above: Performed By: #### B MP, TSH #### [facility] [address] [place] [address] Dr. Reema Mireles MCH (RBC) [Entitic mass] 30.4 pg Normal 26.7-34.0 [facility] Comment on above: Performed By: #### B MP, TSH #### [facility] [address] [place] [address] Dr. Reema Mireles MCHC (RBC) [Mass/Vol] 34.4 g/dL Normal 29.9-35.2 [facility] Comment on above: Performed By: #### B MP, TSH #### [facility] [address] [place] [address] Dr. Reema Mireles MCV (RBC) [Entitic vol] 88.4 fL Normal 81.0-99.0 [facility] Comment on above: Performed By: #### B MP, TSH #### [facility] [address] [place] [address] Dr. Reema Mireles MONO # 0.7 103/ul Normal 0.3-0.8 [facility] Comment on above: Performed By: #### B MP, TSH #### [facility] [address] [place] [address] Dr. Reema Mireles Monocytes/100 WBC (Bld) 6.8 % Normal 1.7-12.0 [facility] Comment on above: Performed By: #### B MP, TSH #### [facility] [address] [place] [address] Dr. Reema Mireles NEUT # 7.0 103/ul Critically high 1.4-6.5 [facility] Comment on above: Performed By: #### B MP, TSH #### [facility] [address] [place] [address] Dr. Reema Mireles Neutrophils/100 WBC (Bld) 72.5 % Normal 43.0-75.0 [facility] Comment on above: Performed By: #### B MP, TSH #### [facility] [address] [place] [address] Dr. Reema Mireles Platelet mean volume (Bld) [Entitic vol] 10.3 fL Normal 9.5-13.5 [facility] Comment on above: Performed By: #### B GURPREET, TSH #### [facility] [address] [place] [address] Dr. Reema Mireles PLT 358 103/ul Normal 150-450 [facility] Comment on above: Performed By: #### B GURPREET, TSH #### [facility] [address] [place] [address] Dr. Reema Mireles RBC 4.21 106/ul Normal 4.20-5.40 [facility] Comment on above: Performed By: #### B MP, TSH #### [facility] [address] [place] [address] Dr. Reema Mireles WBC 9.7 103/ul Normal 4.0-11.0 [facility] Comment on above: Performed By: #### B GURPREET, TSH #### [facility] [address] [place] [address] Dr. Reema Mireles CULTURE BLOODon 04-09-2022 Microscopic examination of blood, culture Culture Observations: NO GROWTH AT 5 DAYS. Normal [facility] Comment on above: Performed By: #### B MP, TSH #### [facility] [address] [place] [address] Dr. Reema Mireles ER URINE PROFILEon 2 Bilirubin Ql (U) Negative Normal NEGATIVE [facility] Comment on above: Performed By: #### B MP, TSH #### [facility] [address] [place] [address] Dr. Reema Mireles Clarity (U) CLEAR Normal CLEAR [facility] Comment on above: Performed By: #### B MP, TSH #### [facility] [address] [place] [address] Dr. Reema Mireles Color (U) LT. YELLOW Normal YELLOW [facility] Comment on above: Performed By: #### B MP, TSH #### [facility] [address] [place] [address] Dr. Reema Mireles ERUAHD A micrscopic examination will be performed if indicated. Normal [facility] Comment on above: Performed By: #### B MP, TSH #### [facility] [address] [place] [address] Dr. Reema Mireles Glucose Ql (U) Negative Normal NEGATIVE [facility] Comment on above: Performed By: #### B MP, TSH #### [facility] [address] [place] [address] Dr. Reema Mireles Hemoglobin Ql (U) TRACE-INTACT Abnormal NEGATIVE [facility] Comment on above: Performed By: #### B MP, TSH #### [facility] [address] [place] [address] Dr. Reema Mireles Ketones Ql (U) Negative Normal NEGATIVE [facility] Comment on above: Performed By: #### B MP, TSH #### [facility] [address] [place] [address] Dr. Reema Mireles LEUKOCYTES Negative Normal NEGATIVE [facility] Comment on above: Performed By: #### B MP, TSH #### [facility] [address] [place] [address] Dr. Reema Mireles Nitrite Ql (U) Negative Normal NEGATIVE [facility] Comment on above: Performed By: #### B MP, TSH #### [facility] [address] [place] [address] Dr. Reema Mireles pH (U) 5.5 [pH] Normal 5-9 [facility] Comment on above: Performed By: #### B MP, TSH #### [facility] [address] [place] [address] Dr. Reema Mireles SPEC GRAVITY <=1.005 Abnormal 1.005-<=1.025 [facility] Comment on above: Performed By: #### B MP, TSH #### [facility] [address] [place] [address] Dr. Reema Mireles UA PROTEIN Negative Normal NEGATIVE/ TRACE [facility] Comment on above: Performed By: #### B MP, TSH #### [facility] [address] [place] [address] Dr. Reema Mireles UR MICRO IND INDICATED Normal [facility] Comment on above: Performed By: #### B MP, TSH #### [facility] [address] [place] [address] Dr. Reema Mireles Urobilinogen Qn (U) 0.2 {Renny'U}/dL Normal 0.2 - 1. 0 [facility] Comment on above: Performed By: #### B MP, TSH #### [facility] [address] [place] [address] Dr. Reema Mireles LACTATE/LACTIC ACIDon 2021 Lactate [Moles/Vol] 2.2 mmol/L Critically high 0.4-1.9 [facility] Comment on above: Performed By: #### B MP, TSH #### [facility] [address] [place] [address] Dr. Reema Mireles URon 04-09-2022 , QUAL Negative Normal NEGATIVE [facility] Comment on above: Performed By: #### B MP, TSH #### [facility] [address] [place] [address] Dr. Reema Mireles PROF 14(COMP METB)on 022 Albumin [Mass/Vol] 4.5 g/dL Normal 3.4-5.[address] [facility] Comment on above: Performed By: #### C MP #### [facility] [address] [place] [address] Dr. Reema Mireles Albumin/Globulin [Mass ratio] 1.3 {ratio} Normal [facility] Comment on above: Performed By: #### C MP #### [facility] [address] [place] [address] Dr. Reema Mireles ALP [Catalytic activity/Vol] 83 U/L Normal 46-116 [facility] Comment on above: Performed By: #### C MP #### [facility] [address] [address] [address] Reema Mireles ALT [Catalytic activity/Vol] 26 U/L Normal 14-59 [facility] Comment on above: Performed By: #### C MP #### [facility] [address] [address] [address] Reema Mireles Anion gap [Moles/Vol] 14.9 mmol/L Normal [facility] Comment on above: Performed By: #### C MP #### [facility] [address] [address] [address] Reema Mireles AST [Catalytic activity/Vol] 12 U/L Critically low 15-37 [facility] Comment on above: Performed By: #### C MP #### [facility] [address] [address] [address] Reema Mireles Bilirubin [Mass/Vol] 0.3 mg/dL Normal 0.2-1.0 [facility] Comment on above: Performed By: #### C MP #### [facility] [address] [address] [address] Reema Mireles Calcium [Mass/Vol] 9.6 mg/dL Normal 8.5-10.[address] [facility] Comment on above: Performed By: #### C MP #### [facility] [address] [address] [address] Reema Mireles Chloride [Moles/Vol] 103 mmol/L Normal 98-107 [facility] Comment on above: Performed By: #### C MP #### [facility] [address] [address] [address] Reema Mireles CO2 [Moles/Vol] 24.4 mmol/L Normal 21.0-32.0 [facility] Comment on above: Performed By: #### C MP #### [facility] [address] [address] [address] Reema Mireles Creatinine [Mass/Vol] 0.87 mg/dL Normal 0.55-1.02 [facility] Comment on above: Performed By: #### C MP #### [facility] [address] [address] [address] Reema Mireles EGFR-AF VINCENTIAN >60 Normal >=60 [facility] Comment on above: Performed By: #### C MP #### [facility] [address] [address] [address] Reema Mireles EGFR-NON AF VINCENTIAN >60 Normal >=60 [facility] Comment on above: Performed By: #### C MP #### [facility] [address] [address] [address] Reema Mireles Globulin (S) [Mass/Vol] 3.5 g/dL Normal [facility] Comment on above: Performed By: #### C MP #### [facility] [address] [address] [address] Reema Mireles Glucose [Mass/Vol] 109 mg/dL Critically high 74-106 [facility] Comment on above: Performed By: #### C MP #### [facility] [address] [address] [address] Reema Mireles Potassium [Moles/Vol] 3.3 mmol/L Critically low 3.5-5.1 [facility] Comment on above: Performed By: #### C MP #### [facility] [address] [address] [address] Reema Mireles Protein [Mass/Vol] 8.0 g/dL Normal 6.4-8.[address] [facility] Comment on above: Performed By: #### C MP #### [facility] [address] [address] [address] Reema Mireles Sodium [Moles/Vol] 139 mmol/L Normal 136-[address] [facility] Comment on above: Performed By: #### C MP #### [facility] [address] [address] [address] Reema Mireles Urea nitrogen [Mass/Vol] 9.0 mg/dL Normal 7.0-18.0 [facility] Comment on above: Performed By: #### C MP #### [facility] [address] [place] [address] Dr. Reema Mireles Urea nitrogen/Creatinine [Mass ratio] 10.3 mg/mg Normal [facility] Comment on above: Performed By: #### C MP #### [facility] [address] [place] [address] Dr. Reema Mireles URINE MICROSCOPIC ONLYon BACTERIA NONE SEEN Normal NONE SEEN [facility] Comment on above: Performed By: #### B MP, TSH #### [facility] [address] [place] [address] Dr. Reema Mireles Bacteria identified Cx Nom (U) NOT INDICATED Normal [facility] Comment on above: Performed By: #### B MP, TSH #### [facility] [address] [place] [address] Dr. Reema Mireles CAST NONE SEEN Normal NONE SEEN [facility] Comment on above: Performed By: #### B MP, TSH #### [facility] [address] [place] [address] Dr. Reema Mireles Crystals LM Nom (Urine sed) NONE SEEN Normal NONE SEEN [facility] Comment on above: Performed By: #### B MP, TSH #### [facility] [address] [place] [address] Dr. Reema Mireles Epithelial cells LM Ql (Urine sed) RARE Normal NONE SEEN /RARE [facility] Comment on above: Performed By: #### B MP, TSH #### [facility] [address] [place] [address] Dr. Reema Mireles MUCOUS NONE SEEN Normal NONE SEEN [facility] Comment on above: Performed By: #### B MP, TSH #### [facility] [address] [place] [address] Dr. Reema Mireles RBC 0-2 Normal 0-2 [facility] Comment on above: Performed By: #### B MP, TSH #### [facility] [address] [place] [address] Dr. Reema Mireles WBC NONE SEEN Normal NONE SEEN [facility] Comment on above: Performed By: #### B MP, TSH #### [facility] [address] [address] [address] Reema Mireles CBC AUTO DIFFon 10-25-2021 BASO # 0.0 103/ul Normal 0.0-0.1 [facility] Comment on above: Performed By: #### C BC #### [facility] [address] [place] [address] Dr. Reema Mireles Basophils/100 WBC (Bld) 0.6 % Normal 0.2-2.0 [facility] Comment on above: Performed By: #### C BC #### [facility] [address] [place] [address] Dr. Reema Mireles EO # 0.1 103/ul Normal 0.0-0.7 [facility] Comment on above: Performed By: #### C BC #### [facility] [address] [place] [address] Dr. Reema Mireles Eosinophils/100 WBC (Bld) 1.8 % Normal 0.9-7.0 [facility] Comment on above: Performed By: #### C BC #### [facility] [facility] [address] [place] [address] Dr. Reema Mireles Erythrocyte distribution width (RBC) [Ratio] 11.9 % Normal 11.0-15.0 [facility] Comment on above: Performed By: #### C BC #### [facility] [address] [place] [address] Dr. Reema Mireles Hematocrit (Bld) [Volume fraction] 38.1 % Normal 36.0-48.0 [facility] Comment on above: Performed By: #### C BC #### [facility] [address] [place] [address] Dr. Reema Mireles Hemoglobin (Bld) [Mass/Vol] 13.1 g/dL Normal 12.0-16.0 [facility] Comment on above: Performed By: #### C BC #### [facility] [address] [place] [address] Dr. Reema Mireles IG # 0.01 10e3/ul Normal 0.00-0.03 [facility] Comment on above: Performed By: #### C BC #### [facility] [address] [place] [address] Dr. Reema Mireles IG % 0.1 % Normal 0.0-0.5 [facility] Comment on above: Performed By: #### C BC #### [facility] [address] [place] [address] Dr. Reema Mireles LYMPH # 1.9 103/ul Normal 1.2-3.8 [facility] Comment on above: Performed By: #### C BC #### [facility] [address] [place] [address] Dr. Reema Mireles Lymphocytes/100 WBC (Bld) 27.8 % Normal 20.5-60.0 [facility] Comment on above: Performed By: #### C BC #### [facility] [address] [place] [address] Dr. Reema Mireles MANUAL DIFF REQ NO Normal [facility] Comment on above: Performed By: #### C BC #### [facility] [address] [place] [address] Dr. Reema Mireles MCH (RBC) [Entitic mass] 30.5 pg Normal 26.7-34.0 [facility] Comment on above: Performed By: #### C BC #### [facility] [address] [place] [address] Dr. Reema Mireles MCHC (RBC) [Mass/Vol] 34.4 g/dL Normal 29.9-35.2 [facility] Comment on above: Performed By: #### C BC #### [facility] [address] [place] [address] Dr. Reema Mireles MCV (RBC) [Entitic vol] 88.8 fL Normal 81.0-99.0 [facility] Comment on above: Performed By: #### C BC #### [facility] [address] [place] [address] Dr. Reema Mireles MONO # 0.8 103/ul Normal 0.3-0.8 [facility] Comment on above: Performed By: #### C BC #### [facility] [address] [place] [address] Dr. Reema Mireles Monocytes/100 WBC (Bld) 11.2 % Normal 1.7-12.0 [facility] Comment on above: Performed By: #### C BC #### [facility] [address] [place] [address] Dr. Reema Mireles NEUT # 4.0 103/ul Normal 1.4-6.5 [facility] Comment on above: Performed By: #### C BC #### [facility] [address] [place] [address] Dr. Reema Mireles Neutrophils/100 WBC (Bld) 58.5 % Normal 43.0-75.0 [facility] Comment on above: Performed By: #### C BC #### [facility] [address] [place] [address] Dr. Reema Mireles Platelet mean volume (Bld) [Entitic vol] 10.0 fL Normal 9.5-13.5 [facility] Comment on above: Performed By: #### C BC #### [facility] [address] [place] [address] Dr. Reema Mireles PLT 361 103/ul Normal 150-450 [facility] Comment on above: Performed By: #### C BC #### [facility] [address] [place] [address] Dr. Reema Mireles RBC 4.29 106/ul Normal 4.20-5.40 [facility] Comment on above: Performed By: #### C BC #### [facility] [address] [place] [address] Dr. Reema Mireles WBC 6.8 103/ul Normal 4.0-11.0 [facility] Comment on above: Performed By: #### C BC #### [facility] [address] [place] [address] Dr. Reema Mireles PREG QUANT HCGon 10-25-2021 HCG QUANT 1 mIU/mL Normal [facility] Comment on above: Performed By: #### P REGQNT #### [facility] [address] [place] [address] Dr. Reema Mireles HCG RANGE SEE BELOW Normal [facility] Comment on above: Result Comment: 5-50 0-1 WEEK 40-300 1-2 WEEKS 100-1,000 2-3 WEEKS 500-6,000 3-4 WEEKS 5,000-200,000 1-2 MONTHS 10,000-100,000 2-3 MONTHS 3,000-50,000 2ND TRIMESTER 1,000-50,000 3RD TRIMESTER Performed By: #### P REGQNT #### [facility] [address] [address] [address] Reema Mireles Covid-19 PCR ([facility])on 09-29 SARS-CoV-2 (COVID-19) RNA FRANKIE+probe Ql (Unsp spec) Not detected Normal NOT DETECTED [facility] Comment on above: Result Comment: This test is not yet approved or cleared by the [place] FDA. When there are no FDA-approved or cleared tests available, and other criteria are met, FDA can make tests available under an emergency access mechanism called an Emergency Use Authorization (EUA). The EUA for this test is supported by the [place] of Health and Human Service's (HHS's) declaration [...] By: #### C VDTB #### [facility] [address] [place], [place] [address] Dr. Reema Mireles Vital Signs Date Time Vital Sign Value Performing Clinician Facility 11-12-2023 14:15-0500 Body weight 108.86 kg [employer] Work Phone: [facility] 11-12-2023 14:15-0500 Diastolic blood pressure 72 mm[Hg] [employer] Work Phone: [facility] 11-12-2023 14:15-0500 Systolic blood pressure 122 mm[Hg] Devan Tello DO Work Phone: [facility] 04-12-2022 21:04-0400 Diastolic blood pressure 84 mm[Hg] [facility] 04-12-2022 21:04-0400 Heart rate 82 /min [facility] 04-12-2022 21:04-0400 Respiratory rate 16 /min [facility] 04-12-2022 21:04-0400 SaO2% (BldA) [Mass fraction] 98 % [facility] 04-12-2022 21:04-0400 Systolic blood pressure 120 mm[Hg] [facility] 04-12-2022 20:32-0400 gluc 80 mg/dL [facility] Comment on above: Result Comment: not taken due to pt refu jimmie of any injection 04-12-2022 20:32-0400 gluc [facility] 04-12-2022 19:25-0400 Body temperature 99.32 [degF] [facility] 04-12-2022 19:25-0400 Diastolic blood pressure 84 mm[Hg] [facility] 04-12-2022 19:25-0400 Heart rate 90 /min [facility] 04-12-2022 19:25-0400 Respiratory rate 18 /min [facility] 04-12-2022 19:25-0400 SaO2% (BldA) [Mass fraction] 98 % [facility] 04-12-2022 19:25-0400 Systolic blood pressure 118 mm[Hg] [facility] 04-09-2022 12:20-0400 Body height 165.1 cm Deonna Back Other [facility] Other 04-09-2022 12:20-0400 Body mass index (BMI) [Ratio] 35.61 kg/m2 Deonna Nazanin Other [facility] Other 04-09-2022 12:20-0400 Body temperature 98.4 [degF] Deonna Nazanin Other [facility] Other 04-09-2022 12:20-0400 Body weight 97.07 kg Deonna Nazanin Other [facility] Other 04-09-2022 12:20-0400 Diastolic blood pressure 83 mm[Hg] Deonna Nazanin Other [facility] Other 04-09-2022 12:20-0400 Respiratory rate 18 /min Deonna Nazanin Other [facility] Other 04-09-2022 12:20-0400 SaO2% (BldA) [Mass fraction] 99 % Deonna Nazanin Other [facility] Other 04-09-2022 12:20-0400 Systolic blood pressure 135 mm[Hg] Deonna Nazanin Other [facility] Other 04-02-2022 19:00-0400 Body height 165.1 cm Deonna Nazanin Other [facility] Other 04-02-2022 19:00-0400 Body mass index (BMI) [Ratio] 35.71 kg/m2 Deonna Nazanin Other [facility] Other 04-02-2022 19:00-0400 Body temperature 98.1 [degF] Deonna Nazanin Other [facility] Other 04-02-2022 19:00-0400 Body weight 97.34 kg Deonna Back Other [facility] Other 04-02-2022 19:00-0400 Diastolic blood pressure 83 mm[Hg] Deonna Back Other [facility] Other 04-02-2022 19:00-0400 Respiratory rate 18 /min Deonna Back Other [facility] Other 04-02-2022 19:00-0400 SaO2% (BldA) [Mass fraction] 100 % Deonna Back Other [facility] Other 04-02-2022 19:00-0400 Systolic blood pressure 134 mm[Hg] Deonna Back Other [facility] Other Encounters Encounter Date Encounter Type Care Provider Facility Start: 11-12-2023 End: 11-12-2023 ambulatory EDVAN OMER Not Available Start: 11-12-2023 End: 11-12-2023 Office outpatient visit 15 minutes Devan Omer DO Work Phone: [facility] Comment on above: Third trimester preg padmini; Excessive growth affecting management of in third trimester, single or unspecified fetus Start: 11-03-2023 Clinisync Result Encounter Cydney FARR Work Phone: [facility] Unsolicited Start: 11-03-2023 Clinisync Result Encounter Cydney FARR Work Phone: [facility] Unsolicited Start: 10-15-2023 End: 10-15-2023 ambulatory CYDNEY LEOS Not Available Start: 09-17-2023 End: 09-17-2023 ambulatory DEVAN OMER Not Available Start: 08-13-2023 End: 08-13-2023 ambulatory CYDNEY LEOS Not Available Start: 09-14-2022 End: 09-14-[address] LUIS ANTONIO SUTTON Facility:[facility] Start: 08-11-2022 End: 08-12-[address] LUIS ANTONIO SUTTON Facility:[facility] Start: 08-09-2022 End: 08-09-[address] ADRYAN MARIE Facility:[facility] Start: 08-08-2022 End: 08-08-[address] LUIS ANTONIO SUTTON Facility:[facility] Start: 04-16-2022 End: 04-16-[address] ADRYAN MARIE Facility:[facility] Start: 04-15-2022 End: 04-15-[address] ADRYAN MARIE Facility:[facility] Start: 04-13-2022 End: 04-13-[address] ADRYAN MARIE Facility:[facility] Start: 04-12-2022 End: 04-12-2022 Emergency department patient visit Lata Shellmaría [facility] Start: 04-10-2022 End: 04-10-2022 ambulatory Deonna Back Other [facility] Other Start: 04-10-2022 Telephone encounter Deonna Back [facility] Start: 04-09-2022 End: 04-09-2022 ambulatory Deonna Back Other [facility] Other Start: 04-09-2022 Office outpatient vi sit 15 minutes Deonna Back [facility] Start: 04-09-2022 End: 04-09-[address] LUIS ANTONIO SUTTON Facility:[facility] Start: 04-02-2022 (URG) Urgent Care Visit Deonna Silva d [facility] Start: 04-02-2022 End: 04-02-2022 ambulatory Deonna Back Other [facility] Other Start: 10-25-2021 End: 10-25-[address] ADRYAN MARIE Facility:[facility] Start: 10-24-2021 Encounter for preprocedural laboratory examination DR DEVAN TELLO [facility] Start: 10-22-2021 End: 10-23-[address] ADRYAN MARIE Facility:[facility] Start: 10-22-2021 End: 10-23-2021 Encounter for preprocedural laboratory examination DR ADRYAN MARIE Facility:[facility] Start: 10-19-2021 Encounter for other preprocedural examination DR DEVAN TELLO [facility] Start: 10-17-2021 End: 10-18-[address] ADRYAN MARIE Facility:[facility] Start: 10-17-2021 End: 10-18-2021 Encounter for other preprocedural examination DR ADRYAN MARIE Facility:[facility] Procedures Date Procedure Procedure Detail Performing Clinician Start: 11-12-2023 Urnls dip stick/tabl et rgnt non-auto w/o micrscp Devan Tello DO Work Phone: Start: 11-03-2023 ALL CBC WITH AUTO DIFF Cydney FARR Work Phone: Plan of Treatment Date Care Activity Detail Author Start: 11-26-2023 End: 11-26-2023 Patient encounter procedure 11/26/2023 11:00 AM EST Routine [facility] [address] [place] [id number] Cydney Leos PA [address] [place] [address] [facility] Start: 11-26-2023 End: 11-26-2023 Professional / ancillary services management 11/26/2023 10:30 AM EST Ancillary Procedure [facility] [address] [place] [id number] [facility] Start: 11-12-2023 End: 11-12-2024 US for US OB SCAN FOR GROWTH Imaging Routine Excessive growth affecting management of in third trimester, single or unspecified fetus Expected: 11/12/2023 (Approximate), Expires: 11/12/2024 [facility] Work Phone: Comment on above: Expected: 11/12/2023 (Approximate), Expires: 11/12/2024 Start: 11-12-2023 End: 11-12-2023 Patient encounter procedure 11/12/2023 10:50 AM EST Routine [facility] [address] [place] [address] Devan Tello, DO [address] [facility] [place] [address] [facility] Payers Date Payer Category Payer Unknown [employer] [place] [employer] [place] [employer] [id number] 2023-Present [address] [place] [address] [id number] 2023 Unknown [id number] 2001 Unknown [id number] [id number]. 593 2001 Unknown [id number] 2.16.840.1.701740.3.579.2. 593 2001 Unknown [id number] 2.16.840.1.784024.3.579.2. 593 2001 Unknown [id number] 2.16.840.1.388166.3.579.2. 593 2001 Unknown [id number] 2.16.840.1.008658.3.579.2. 593 2001 Unknown [id number] 2.16.840.1.573871.3.579.2. 593 2001 Unknown [id number] 2.16.840.1.520924.3.579.2. 593 2001 Unknown [id number] 2.16.840.1.848150.3.579.2. 593 2001 Unknown [id number] 2.16.840.1.920085.3.579.2. 593 2001 Unknown [id number] 2.16.840.1.105809.3.579.2. 593 2001 Unknown [id number] 2.16.840.1.644071.3.579.2. 593 2001 Unknown [id number] 2.16.840.1.240993.3.579.2. 1259 2001 Unknown [id number] 2.16.840.1.019344.3.579.2. 9 2001 Unknown [id number] 2.16.840.1.256036.3.579.2. 1259 2001 Unknown [id number] 2.16.840.1.489528.3.579.2. 1259 1958 [facility] [id number] Social History Date Type Detail Facility Unknown if ever smoked [email or web address] Other Sex Assigned At [email or web address] Other Tobacco smoking status No Smoking Status Entered [facility] Start: 06-20-2023 Tobacco smoking status OKIS Tobacco smoking consumption unknown [facility] Start: 10-15-2023 Alcohol intake Lifetime non-d hermes (finding) [facility] Start: 06-20-2023 Tobacco Comment Current smoker (frequency unknown) [facility] Start: 05-06-2023 [facility] Start: 2001 Sex Assigned At Not on file [facility] Goals Date Patient Goal Desired Activity /State Personal health goal Functional Status Date Assessment Result Facility 04-12-2022 Functional Status N/A [facility] History of Present illness Narrative 11-12-2023 Ciarra Castillo MA - 11/12/2023 10:50 AM EST Note Date & Type Note Facility 11-12-2023 History of Presen t illness Narrative Reason for Appointment: Patient ID: Juanpablo Chaparro is a 23 y.o. female who presents for Routine Visit Patient presents today for Return OB appointment. Current Medications: has a current medication list which includes the following prescription(s): [facility]dha & fa. Medical History: Active Ambulatory Problems Diagnosis Date Noted No Active Ambulatory Problems Resolved Ambulatory Problems Diagnosis Date Noted No Resolved Ambulatory Problems Past Medical History: Diagnosis Date Dysmenorrhea Dyspareunia in female Female pelvic pain Hiatal hernia Obesity (BMI 30.0-34.9) Postop check Status post laparoscopy Symptomatic mammary hypertrophy Vulvodynia Family History Problem Relation Name Age of Onset Cancer Mother Diabetes Mother Other (high blood pressure) Maternal Grandmother Cervical cancer Maternal Grandmother Cancer Maternal Grandfather prostate Lung cancer Paternal Grandmother Social History Tobacco Use Smoking status: Unknown Smokeless tobacco: Not on file Tobacco comments: Current smoker (frequency unknown) Substance Use Topics Alcohol use: Never Drug use: Never Past Surgical History: Procedure Laterality Date LAPAROSCOPY DIAGNOSTIC / BIOPSY / ASPIRATION / LYSIS 10/25/2021 Allergies Allergen Reactions Sulfa Antibiotics Fever, Hives and Rash Review of Systems: Review of Systems Constitutional: Negative. HENT: Negative. Eyes: Negative. Respiratory: Negative. Cardiovascular: Negative. Gastrointestinal: Negative. Genitourinary: Negative. Musculoskeletal: Negative. Skin: Negative. Neurological: Negative. All other systems reviewed and are negative. Hematological: Negative. Endocrine: Negative. Allergic/Immunologic: Negative. Objective Physical Exam Constitutional: Appearance: Normal appearance. She is normal weight. HENT: Head: Normocephalic. Cardiovascular: Rate and Rhythm: Normal rate. Pulses: Normal pulses. Pulmonary: Effort: Pulmonary effort is normal. Breath sounds: Normal breath sounds. Abdominal: Palpations: Abdomen is soft. Musculoskeletal: General: Normal range of motion. Neurological: General: No focal deficit present. Mental Status: She is alert and oriented to person, place, and time. Psychiatric: Mood and Affect: Mood normal. Behavior: Behavior normal. Thought Content: Thought content normal. Judgment: Judgment normal. Vitals and nursing note reviewed. Patient presents today for a routine obstetrics appointment. Patient is currently 29w1d . Patient states she is doing well but has complaints of being tired due to current . Patient has verbalizes frequent movement. labor precautions was discussed/given and patient was instructed to perform kick counts three times a day. Follow Up: Patient is to return to office in 3 week for routine OB appointment. Vitals: There is no height or weight on file to calculate BMI. BP: Patient's last menstrual period was 04/22/2023. Assessment/Plan Encounter Diagnosis Name Primary? Third trimester Patient presents today for a routine obstetrics appointment. Patient is currently 29w1d with a Estimated Date of Delivery: 01/27/24. Patient states she is doing well but has complaints of being tired due to current . Patient has verbalizes frequent movement. labor precautions was discussed/given and patient was instructed to perform kick counts three times a day. Follow Up: Patient is to return to office in 2 week for routine OB appointment. Documented by Ciarra Castillo MA on behalf of: Devan Tello DO documented in this encounter [facility] Discharge instructions 04-12-2022 Note Date [...] help with your condition: Managing pain Take exld-lpc-zjesylk and prescription medicines only as told by [...] 09/14/2006 Document Revised: 04/04/2019 Document Reviewed: 04/04/2019 [employer] Patient Education 2020 [employer]. 04/12/2022 21:07:38 Vertigo Vertigo Vertigo is the [...] if you feel dizzy. General instructions Take ujkv-bqq-ujjnsjc and prescription medicines only as told by [...] 06/24/2006 Document Revised: 08/08/2019 Document Reviewed: 08/08/2019 [employer] Patient Education [employer]. Follow Up Care 04/12/2022 19:25:17 With:ADRYAN MARIE Address: [address] [place] [address] Business (1) When:04/15/2022 20:55:24 Comments:Return to the emergency room if her headache gets worse, vertigo becomes persistent or any new symptoms [facility] Evaluation note 04-09-2022 Note Date & [...] She was prescribed Zofran with no improvement. [facility] Other Evaluation note 04-02-2022 Note Date & [...] 3 days. No swimming for a week [facility] Other Clinical Note 10-25-2021 Note Date & Type Note Facility 10-25-2021 Note OPERATIVE NOTE PROCEDURE: Diagnostic laparoscopy. PREOPERATIVE DIAGNOSIS: Pelvic pain, dyspareunia dysmenorrhea. POSTOPERATIVE DIAGNOSIS: Pelvic pain, dyspareunia dysmenorrhea. ANESTHESIA: General. SURGEON: Devan Tello D.O. FLOUR BLENDER HELPER: JAE Worley URINE OUTPUT: Yellow and clear. [...] taken to Recovery Room in stable condition. [facility] Signed and Approved by: DR DEVAN TELLO . 11/01/2021 17:31:00 [facility] Evaluation + Plan note Note Date & Type Note Facility Evaluation + Plan note No data available for this section [facility] Evaluation note Note Date & Type Note Facility Evaluation note No Information [facility] Other Evaluation note Note Date & Type Note Facility Evaluation note Diagnosis Third trimester state, incidental Excessive growth affecting management of in third trimester, single or unspecified fetus documented in this encounter [facility] History general Narrative - Reported Note Date & Type Note Facility History general Narrative - Reported Type Medical History acid reflux Medical History headache Surgical History lip surgery Surgical History endometriosis Hospitalization History RSV as a baby [email or web address] Other Progress note Note Date & Type Note Facility Progress note No data available for this section [facility] Summary Purpose Family History No Family History Records FoundNo Family History Records FoundNo Family History Records Found Advance Directives No Advanced Directives Records FoundNo Advanced Directives Records FoundNo Advanced Directives Records Found Additional Source Comments REASON FOR VISIT (unrecogniz ed section and content) Reason Comments Routine Visit Care Team (unrecognized sect ion and content) Senior Administrative Support Relationship Specialty Start Date End Date Adryan Marie MD [address] [place] [address] PCP - General Family Medicine 06/19/23 Senior Administrative Support Relationship Specialty Start Date End Date Adryan Marie MD [address] [place] [address] PCP - General Family Medicine 06/19/23 INFORMATION SOURCE (unrecogn ized section and content) DATE CREATED AUTHOR 04/26/2022 [facility] DATE CREATED AUTHOR AUTHOR'S ORGANIZ ATION 09/19/2022 [facility] DATE CREATED AUTHOR AUTHOR'S ORGANIZ ATION 11/14/2023 [facility] Specialists EPIC FOR RECORDS PERTAINING TO PATIENTS WHO ARE [...] BE BASED ON THE PRIMARY CLINICAL RECORDS. [facility]. provides no warranty or guarantee of the accuracy or completeness of information in this document.
== END 2023-11-26 10:28 | disposition home or self-care (01) ==
LOC: NOMS 10:27
PROVIDERS: PCP Family Medicine; Visit Provider Obstetrics & Gynecology
DX: O36.63X0 Maternal care for excessive fetal growth, third trimester, not applicable or unspecified (principal); Z3A.32 32 weeks gestation of pregnancy
CPT/HCPCS: 76816

== ENCOUNTER 2023-12-01 07:50 | Outpatient (OUT) | payer OTHER, SELFPAY ==
--- OUTSIDE RECORDS SUMMARY | 2023-12-01 08:18 | XMS_ITS | CCD ---
Author Name Unknown Address [address] [facility] [address] [place] [address] Organization [facility] Care Team Providers Care Recreation Director Name Role Phone NazaninDeonna lozoya Unavailable OSCAR, ADRYAN Primary Care Physician [phone] LESLEY, DR LUIS ANTONIO Jorge Consulting Unavailable [...] LEOS Attending Unavailable DEVAN TELLO Attending Unavailable CYDNEY LEOS Attending Unavailable DEVAN TELLO Attending Unavailable Allergies Allergy Classification Reported Allergen(s) Allergy Type Date of Onset Reaction(s) Facility (3 sources) Sulfacetamide Drug Allergy rash [employer] Other (1 source) Sulfonamides (Antibiotic); Translations: [sulfa drugs] Drug allergy Hyperpyrexia (finding) [facility] (1 source) Sulfonamides (Antibiotic) Drug allergy (disorder) 07-26-20 14 [facility] (3 sources) Sulfonamides (Antibiotic) Drug Intolerance [...] BY MOUTH EVERY MORNING 0 10/06/2023 Active DN-Act-UE-Norborne-3 ( Gummies/DHA & FA) 0.4-32.5 MG chewable tablet (3 sources) Start: 06-19-2023 End: 06-18-2024 OB-Moc-OV-Norborne-3 ( Gummies/DHA & FA) 0.4-32.5 MG chewable tablet Indications: Missed menses Chew 32.5 mg in the morning. 30 tablet 11 06/19/2023 06/18/2024 Active Completed/Discontinued Medications Medication Drug Class(es) Dates Sig (Normalized) Sig (Original) [id number] 200 actuat albuterol 0.09 mg/actuat metered dose [...] / neomycin 3.5 mg/ml / polymyxin b [id number] unt/ml otic suspension (3 sources) Aminoglycoside Antibacterial, Polymyxin-class Antibacterial, Corticosteroid Start: 04-02-2022 Neomycin-Polymyx in-HC 3.5-60793-8 3 drops left ear Three times a [...] UA Negative Negative - 4(70) +++ mg/dL [facility] Blood, UA Negative Negative - 50 Cedric/mcL [facility] Clarity, UA Clear [facility] re Color, UA Yellow [facility] Glucose, UA Negative Negative - 1999(110) ++++ mg/dL [facility] Interpretation and review of laboratory results Normal [facility] Ketones, UA Negative Negative - 160(16) ++++ mg/dL [facility] Leukocytes, UA Negative Negative - 500+++ Alessandro/mcL [facility] Nitrite, UA Negative Negative - Positive [facility] pH, UA 6.0 5 - 9 [facility] e Protein, UA Negative Negative - 1999(20) ++++ mg/dL [facility] Spec Grav, UA 1.020 1 - 1.03 [facility] Urobilinogen, UA 0.2 0.2 - 12 mg/dL [facility] ALL CBC WITH AUTO DIFFon BASOPHILS ABSOLUTE AUTO 0.0 [facility] Basophils/100 WBC (Bld) 0.3 % 0.2 - 2.0 % [facility] Eosinophils/100 WBC (Bld) 1.0 % 0.9 - 7.0 % [facility] Erythrocyte distribution width (RBC) [Ratio] 12.5 % 11.0 - 15.0 % [facility] Hematocrit (Bld) [Volume fraction] 35.1 % Low 36.0 - 48.0 % [facility] Hemoglobin (Bld) [Mass/Vol] 11.7 g/dL Low 12.0 - 16.0 g/dL [facility] IMMATURE GRANULOCYTES ABS AUTO 0.08 High [facility] Immature granulocytes/100 WBC (Bld) 0.6 % High 0.0 - 0.5 % [facility] Interpretation and review of laboratory results Abnormal [facility] LYMPHOCYTES ABSOLUTE AUTO 1.6 [facility] Lymphocytes/100 WBC (Bld) 11.9 % Low 20.5 - 60.0 % [facility] MCH (RBC) [Entitic mass] 30.7 pg 26.7 - 34.0 pg [facility] MCHC (RBC) [Mass/Vol] 33.3 g/dL 29.9 - 35.2 g/dL [facility] MCV (RBC) [Entitic vol] 92.1 fL 81.0 - 99.0 fL [facility] MONOCYTES ABSOLUTE AUTO 0.8 [facility] Monocytes/100 WBC (Bld) 5.5 % 1.7 - 12.0 % [facility] NEUTROPHILS ABSOLUTE AUTO 11.1 High [facility] Neutrophils/100 WBC (Bld) 80.7 % High 43.0 - 75.0 % [facility] Platelet mean volume (Bld) [Entitic vol] 10.6 fL 9.5 - 13.5 fL [facility] are [facility] EO # 0.1 [facility] PLT [address] [facility] RBC 3.81 Low [facility] e [facility] WBC 13.8 High [facility] e [facility] CBC AUTO DIFFon 09-14-2022 BASO # 0.0 103/ul Normal 0.0-0.1 [facility] Comment on above: Performed By: #### B GURPREET, TSH #### [facility] Laboratory [address] [place] [address] Dr. Reema Mireles Basophils/100 WBC (Bld) 0.6 % Normal 0.2-2.0 [facility] Comment on above: Performed By: #### B GURPREET, TSH #### [facility] Laboratory [address] [address] [address] Reema Mireles EO # 0.0 103/ul Normal 0.0-0.7 [facility] Comment on above: Performed By: #### B GURPREET, TSH #### [facility] [address] [place] [address] Dr. Reema Mireles Eosinophils/100 WBC (Bld) 0.6 % Critically low 0.9-7.0 [facility] Comment on above: Performed By: #### B GURPREET, TSH #### [facility] [address] [place] [address] Dr. Reema Mireles Erythrocyte distribution width (RBC) [Ratio] 11.9 % Normal 11.0-15.0 [facility] [place] [facility] Comment on above: Performed By: #### B GURPREET, TSH #### [facility] [address] [place] [address] Dr. Reema Mireles Hematocrit (Bld) [Volume fraction] 37.8 % Normal 36.0-48.0 [facility] Comment on above: Performed By: #### B GURPREET, TSH #### [facility] [address] [place] [address] Dr. Reema Mireles Hemoglobin (Bld) [Mass/Vol] 13.5 g/dL Normal 12.0-16.0 [facility] [place] [facility] Comment on above: Performed By: #### B GURPREET, TSH #### [facility] [address] [place] [address] Dr. Reema Mireles IG # 0.01 10e3/ul Normal 0.00-0.03 [facility] Comment on above: Performed By: #### B GURPREET, TSH #### [facility] [address] [place] [address] Dr. Reema Mireles IG % 0.2 % Normal 0.0-0.5 [facility] Comment on above: Performed By: #### B GURPREET, TSH #### [facility] [address] [place] [address] Dr. Reema Mireles LYMPH # 1.6 103/ul Normal 1.2-3.8 [facility] Comment on above: Performed By: #### B GURPREET, TSH #### [facility] [address] [place] [address] Dr. Reema Mireles Lymphocytes/100 WBC (Bld) 25.5 % Normal 20.5-60.0 [facility] Comment on above: Performed By: #### B GURPREET, TSH #### [facility] [address] [place] [address] Dr. Reema Mireles MANUAL DIFF REQ NO Normal [facility] Comment on above: Performed By: #### B MP, TSH #### [facility] [address] [place] [address] Dr. Reema Mireles MCH (RBC) [Entitic mass] 30.9 pg Normal 26.7-34.0 [facility] Comment on above: Performed By: #### B MP, TSH #### [facility] [address] [place] [address] Dr. Reema Mireles MCHC (RBC) [Mass/Vol] 35.7 g/dL Critically high 29.9-35.2 [facility] Comment on above: Performed By: #### B MP, TSH #### [facility] [address] [place] [address] Dr. Reema Mireles MCV (RBC) [Entitic vol] 86.5 fL Normal 81.0-99.0 [facility] [place] [facility] Comment on above: Performed By: #### B MP, TSH #### [facility] [address] [place] [address] Dr. Reema Mireles MONO # 0.5 103/ul Normal 0.3-0.8 [facility] [place] [facility] Comment on above: Performed By: #### B MP, TSH #### [facility] [address] [place] [address] Dr. Reema Mireles Monocytes/100 WBC (Bld) 8.5 % Normal 1.7-12.0 [facility] Comment on above: Performed By: #### B MP, TSH #### [facility] [address] [place] [address] Dr. Reema Mireles NEUT # 4.1 103/ul Normal 1.4-6.5 [facility] Comment on above: Performed By: #### B MP, TSH #### [facility] [address] [place] [address] Dr. Reema Mireles Neutrophils/100 WBC (Bld) 64.6 % Normal 43.0-75.0 [facility] Comment on above: Performed By: #### B MP, TSH #### [facility] [address] [place] [address] Dr. Reema Mireles Platelet mean volume (Bld) [Entitic vol] 9.9 fL Normal 9.5-13.5 [facility] [place] [facility] Comment on above: Performed By: #### B MP, TSH #### [facility] [address] [place] [address] Dr. Reema Mireles PLT 403 103/ul Normal 150-450 [facility] [place] [facility] Comment on above: Performed By: #### B MP, TSH #### [facility] [address] [place] [address] Dr. Reema Mireles RBC 4.37 106/ul Normal 4.20-5.40 [facility] [place] [facility] Comment on above: Performed By: #### B MP, TSH #### [facility] [address] [place] [address] Dr. Reema Mireles WBC 6.3 103/ul Normal 4.0-11.0 [facility] [place] [facility] Comment on above: Performed By: #### B MP, TSH #### [facility] [address] [place] [address] Dr. Reema Mireles PROF 14(COMP METB)on 022 Albumin [Mass/Vol] 4.3 g/dL Normal 3.4-5.0 [facility] Comment on above: Performed By: #### B MP, TSH #### [facility] [address] [place] [address] Dr. Reema Mireles Albumin/Globulin [Mass ratio] 1.2 {ratio} Normal [facility] [place] [facility] Comment on above: Performed By: #### B MP, TSH #### [facility] [address] [place] [address] Dr. Reema Mireles ALP [Catalytic activity/Vol] 79 U/L Normal 46-116 [facility] [place] [facility] Comment on above: Performed By: #### B MP, TSH #### [facility] [address] [place] [address] Dr. Reema Mireles ALT [Catalytic activity/Vol] 31 U/L Normal 14-59 [facility] [place] [facility] Comment on above: Performed By: #### B MP, TSH #### [facility] [address] [address] [address] Reema Mireles Anion gap [Moles/Vol] 12.1 mmol/L Normal [facility] [place] [facility] Comment on above: Performed By: #### B MP, TSH #### [facility] [address] [address] [address] Reema Mireles AST [Catalytic activity/Vol] 17 U/L Normal 15-37 [facility] [place] [facility] Comment on above: Performed By: #### B MP, TSH #### [facility] [address] [address] [address] Reema Mireles Bilirubin [Mass/Vol] 0.4 mg/dL Normal 0.2-1.0 [facility] [place] [facility] Comment on above: Performed By: #### B MP, TSH #### [facility] [address] [place] [address] Dr. Reema Mireles Calcium [Mass/Vol] 8.9 mg/dL Normal 8.5-10.1 [facility] Comment on above: Performed By: #### B MP, TSH #### [facility] [address] [place] [address] Dr. Reema Mireles Chloride [Moles/Vol] 98 mmol/L Normal 98-107 [facility] [place] [facility] Comment on above: Performed By: #### B MP, TSH #### [facility] [address] [place] [address] Dr. Reema Mireles CO2 [Moles/Vol] 27.0 mmol/L Normal 21.0-32.[address] [facility] Comment on above: Performed By: #### B MP, TSH #### [facility] [address] [place] [address] Dr. Reema Mireles Creatinine [Mass/Vol] 0.65 mg/dL Normal 0.55-1.02 [facility] [place] [facility] Comment on above: Performed By: #### B MP, TSH #### [facility] [address] [place] [address] Dr. Reema Mireles EGFR-AF TURKMEN >60 Normal >=[address] [facility] Comment on above: Performed By: #### B MP, TSH #### [facility] [address] [address] [address] Reema Mireles EGFR-NON AF TURKMEN >60 Normal >=60 [facility] [place] [facility] Comment on above: Performed By: #### B MP, TSH #### [facility] [address] [address] [address] Reema Mireles Globulin (S) [Mass/Vol] 3.5 g/dL Normal [facility] [place] [facility] Comment on above: Performed By: #### B MP, TSH #### [facility] [address] [address] [address] Reema Mireles Glucose [Mass/Vol] 106 mg/dL Normal 74-106 [facility] Comment on above: Performed By: #### B MP, TSH #### [facility] [address] [place] [address] Dr. Reema Mireles Potassium [Moles/Vol] 3.1 mmol/L Critically low 3.5-5.1 [facility] [place] [facility] Comment on above: Performed By: #### B MP, TSH #### [facility] [address] [place] [address] Dr. Reema Mireles Protein [Mass/Vol] 7.8 g/dL Normal 6.4-8.2 [facility] Comment on above: Performed By: #### B MP, TSH #### [facility] [address] [place] [address] Dr. Reema Mireles Sodium [Moles/Vol] 134 mmol/L Critically low 136-145 [facility] Comment on above: Performed By: #### B MP, TSH #### [facility] [address] [place] [address] Dr. Reema Mireles Urea nitrogen [Mass/Vol] 6.0 mg/dL Critically low 7.0-18.0 [facility] [place] [facility] Comment on above: Performed By: #### B MP, TSH #### [facility] [address] [place] [address] Dr. Reema Mireles Urea nitrogen/Creatinine [Mass ratio] 9.2 mg/mg Normal [facility] [place] [facility] Comment on above: Performed By: #### B MP, TSH #### [facility] [address] [place] [address] Dr. Reema Mireles ACETONE SERUMon 08-11-2022 ACETONE Negative Normal NEGATIVE [facility] Comment on above: Performed By: #### B MP, TSH #### [facility] [address] [place] [address] Dr. Reema Mireles CBC AUTO DIFFon 08-11-2022 BASO # 0.1 103/ul Normal 0.0-0.1 [facility] [place] [facility] Comment on above: Performed By: #### B MP, TSH #### [facility] [address] [place] [address] Dr. Reema Mireles Basophils/100 WBC (Bld) 0.5 % Normal 0.2-2.0 [facility] [place] [facility] Comment on above: Performed By: #### B MP, TSH #### [facility] [address] [place] [address] Dr. Reema Mireles EO # 0.1 103/ul Normal 0.0-0.7 [facility] [place] [facility] Comment on above: Performed By: #### B MP, TSH #### [facility] [address] [place] [address] Dr. Reema Mireles Eosinophils/100 WBC (Bld) 0.7 % Critically low 0.9-7.0 [facility] [place] [facility] Comment on above: Performed By: #### B MP, TSH #### [facility] [address] [place] [address] Dr. Reema Mireles Erythrocyte distribution width (RBC) [Ratio] 11.7 % Normal 11.0-15.0 [facility] [place] [facility] Comment on above: Performed By: #### B MP, TSH #### [facility] [address] [place] [address] Dr. Reema Mireles Hematocrit (Bld) [Volume fraction] 37.6 % Normal 36.0-48.0 [facility] [place] [facility] Comment on above: Performed By: #### B MP, TSH #### [facility] [address] [place] [address] Dr. Reema Mireles Hemoglobin (Bld) [Mass/Vol] 13.1 g/dL Normal 12.0-16.0 [facility] [place] [facility] Comment on above: Performed By: #### B MP, TSH #### [facility] [address] [place] [address] Dr. Reema Mireles IG # 0.02 10e3/ul Normal 0.00-0.03 [facility] [place] [facility] Comment on above: Performed By: #### B MP, TSH #### [facility] [address] [place] [address] Dr. Reema Mireles IG % 0.2 % Normal 0.0-0.5 [facility] [place] [facility] Comment on above: Performed By: #### B MP, TSH #### [facility] [address] [place] [address] Dr. Reema Mireles LYMPH # 2.7 103/ul Normal 1.2-3.8 [facility] [place] [facility] Comment on above: Performed By: #### B MP, TSH #### [facility] [address] [place] [address] Dr. Reema Mireles Lymphocytes/100 WBC (Bld) 28.5 % Normal 20.5-60.0 [facility] [place] [facility] Comment on above: Performed By: #### B MP, TSH #### [facility] [address] [place] [address] Dr. Reema Mireles MANUAL DIFF REQ NO Normal [facility] Comment on above: Performed By: #### B MP, TSH #### [facility] [address] [place] [address] Dr. Reema Mireles MCH (RBC) [Entitic mass] 30.3 pg Normal 26.7-34.0 [facility] [place] [facility] Comment on above: Performed By: #### B MP, TSH #### [facility] [address] [place] [address] Dr. Reema Mireles MCHC (RBC) [Mass/Vol] 34.8 g/dL Normal 29.9-35.2 [facility] [place] [facility] Comment on above: Performed By: #### B MP, TSH #### [facility] [address] [place] [address] Dr. Reema Mireles MCV (RBC) [Entitic vol] 87.0 fL Normal 81.0-99.0 [facility] [place] [facility] Comment on above: Performed By: #### B MP, TSH #### [facility] [address] [place] [address] Dr. Reema Mireles MONO # 0.8 103/ul Normal 0.3-0.8 [facility] [place] [facility] Comment on above: Performed By: #### B MP, TSH #### [facility] [address] [place] [address] Dr. Reema Mireles Monocytes/100 WBC (Bld) 8.2 % Normal 1.7-12.0 [facility] [place] [facility] Comment on above: Performed By: #### B MP, TSH #### [facility] [address] [place] [address] Dr. Reema Mireles NEUT # 5.9 103/ul Normal 1.4-6.5 [facility] [place] [facility] Comment on above: Performed By: #### B MP, TSH #### [facility] [address] [place] [address] Dr. Reema Mireles Neutrophils/100 WBC (Bld) 61.9 % Normal 43.0-75.0 [facility] Comment on above: Performed By: #### B MP, TSH #### [facility] [address] [place] [address] Dr. Reema Mireles Platelet mean volume (Bld) [Entitic vol] 10.2 fL Normal 9.5-13.5 [facility] Comment on above: Performed By: #### B MP, TSH #### [facility] [address] [place] [address] Dr. Reema Mireles PLT 382 103/ul Normal 150-450 [facility] Comment on above: Performed By: #### B MP, TSH #### [facility] [address] [place] [address] Dr. Reema Mireles RBC 4.32 106/ul Normal 4.20-5.40 [facility] Comment on above: Performed By: #### B MP, TSH #### [facility] [address] [place] [address] Dr. Reema Mireles WBC 9.6 103/ul Normal 4.0-11.0 [facility] Comment on above: Performed By: #### B MP, TSH #### [facility] [address] [place] [address] Dr. Reema Mireles CRPon 08-11-2022 CRP [Mass/Vol] mg/L Normal <=1.0 [facility] Comment on above: Performed By: #### B MP, TSH #### [facility] [address] [place] [address] Dr. Reema Mireles ER URINE PROFILEon Bilirubin Ql (U) Negative Normal NEGATIVE [facility] Comment on above: Performed By: #### B MP, TSH #### [facility] [address] [place] [address] Dr. Reema Mireles Clarity (U) CLEAR Normal CLEAR [facility] [place] [facility] Comment on above: Performed By: #### B MP, TSH #### [facility] [address] [place] [address] Dr. Reema Mireles Color (U) LT. YELLOW Normal YELLOW [facility] [place] [facility] Comment on above: Performed By: #### B MP, TSH #### [facility] [address] [place] [address] Dr. Reema ELIZALDE A micrscopic examination will be performed if indicated. Normal [facility] Comment on above: Performed By: #### B MP, TSH #### [facility] [address] [place] [address] Dr. Reema Mireles Glucose Ql (U) Negative Normal NEGATIVE [facility] Comment on above: Performed By: #### B MP, TSH #### [facility] [address] [place] [address] Dr. Reema Mireles Hemoglobin Ql (U) Negative Normal NEGATIVE [facility] Comment on above: Performed By: #### B MP, TSH #### [facility] [address] [place] [address] Dr. Reema Mireles Ketones Ql (U) Negative Normal NEGATIVE [facility] Comment on above: Performed By: #### B MP, TSH #### [facility] [address] [place] [address] Dr. Reema Mireles LEUKOCYTES Negative Normal NEGATIVE [facility] Comment on above: Performed By: #### B MP, TSH #### [facility] Laboratory [address] [place] [address] Dr. Reema Mireles Nitrite Ql (U) Negative Normal NEGATIVE The [facility] Comment on above: Performed By: #### B MP, TSH #### [facility] Laboratory [address] [address] [address] Reema Mireles pH (U) 5.5 [pH] Normal 5-9 [facility] [place] [facility] Comment on above: Performed By: #### B MP, TSH #### [facility] [address] [place] [address] Dr. Reema Mireles SPEC GRAVITY <=1.005 Abnormal 1.005-<=1.[address] [facility] Comment on above: Performed By: #### B MP, TSH #### [facility] [address] [place] [address] Dr. Reema Mireles UA PROTEIN Negative Normal NEGATIVE/ TRACE [facility] Comment on above: Performed By: #### B MP, TSH #### [facility] [address] [place] [address] Dr. Reema Mireles UR MICRO IND NOT INDICATED Normal [facility] Comment on above: Performed By: #### B MP, TSH #### [facility] [address] [place] [address] Dr. Reema Mireles Urobilinogen Qn (U) 0.2 {Renny'U}/dL Normal 0.2 - 1. 0 [facility] [place] [facility] Comment on above: Performed By: #### B MP, TSH #### [facility] [address] [place] [address] Dr. Reema Mireles LIPASEon 08-11-2022 Lipase [Catalytic activity/Vol] 71.0 U/L Critically low 73.0-393.0 [facility] [place] [facility] Comment on above: Performed By: #### B MP, TSH #### [facility] [address] [place] [address] Dr. Reema Mireles URon 08-11-2022 , QUAL Negative Normal NEGATIVE [facility] Comment on above: Performed By: #### C VDTBH #### [facility] [address] [address] [address] Reema Mireles PROF 14(COMP METB)on 08-11- 022 Albumin [Mass/Vol] 4.3 g/dL Normal 3.4-5.0 [facility] Comment on above: Performed By: #### B MP, TSH #### [facility] [address] [address] [address] Reema Mireles Albumin/Globulin [Mass ratio] 1.2 {ratio} Normal [facility] [place] [facility] Comment on above: Performed By: #### B MP, TSH #### [facility] [address] [place] [address] Dr. Reema Mireles ALP [Catalytic activity/Vol] 70 U/L Normal 46-116 [facility] [place] [facility] Comment on above: Performed By: #### B GURPREET, TSH #### [facility] [address] [place] [address] Dr. Reema Mireles ALT [Catalytic activity/Vol] 16 U/L Normal 14-59 [facility] [place] [facility] Comment on above: Performed By: #### B MP, TSH #### [facility] [address] [place] [address] Dr. Reema Mireles Anion gap [Moles/Vol] 10.5 mmol/L Normal [facility] [place] [facility] Comment on above: Performed By: #### B MP, TSH #### [facility] [address] [address] [address] Reema Mireles AST [Catalytic activity/Vol] 8 U/L Critically low 15-37 [facility] [place] [facility] Comment on above: Performed By: #### B MP, TSH #### [facility] [address] [address] [address] Reema Mireles Bilirubin [Mass/Vol] 0.3 mg/dL Normal 0.2-1.0 [facility] [place] [facility] Comment on above: Performed By: #### B MP, TSH #### [facility] [address] [place] [address] Dr. Reema Mireles Calcium [Mass/Vol] 9.0 mg/dL Normal 8.5-10.1 [facility] Comment on above: Performed By: #### B MP, TSH #### [facility] [address] [place] [address] Dr. Reema Mireles Chloride [Moles/Vol] 104 mmol/L Normal 98-107 [facility] Comment on above: Performed By: #### B MP, TSH #### [facility] [address] [place] [address] Dr. Reema Mireles CO2 [Moles/Vol] 26.5 mmol/L Normal 21.0-32.0 [facility] [place] Comment on above: Performed By: #### B MP, TSH #### [facility] [address] [place] [address] Dr. Reema Mireles Creatinine [Mass/Vol] 0.79 mg/dL Normal 0.55-1.02 [facility] [place] [facility] Comment on above: Performed By: #### B MP, TSH #### [facility] [address] [place] [address] Dr. Reema Mireles EGFR-AF TURKMEN >60 Normal >=[address] [facility] Comment on above: Performed By: #### B GURPREET, TSH #### [facility] [address] [place] [address] Dr. Reema Mireles EGFR-NON AF TURKMEN >60 Normal >=60 [facility] Comment on above: Performed By: #### B MP, TSH #### [facility] [address] [place] [address] Dr. Reema Mireles Globulin (S) [Mass/Vol] 3.5 g/dL Normal [facility] [place] [facility] Comment on above: Performed By: #### B MP, TSH #### [facility] [address] [place] [address] Dr. Reema Mireles Glucose [Mass/Vol] 106 mg/dL Normal 74-106 [facility] Comment on above: Performed By: #### B MP, TSH #### [facility] [address] [place] [address] Dr. Reema Mireles Potassium [Moles/Vol] 3.0 mmol/L Critically low 3.5-5.1 [facility] Comment on above: Performed By: #### B MP, TSH #### [facility] [address] [place] [address] Dr. Reema Mireles Protein [Mass/Vol] 7.8 g/dL Normal 6.4-8.2 [facility] Comment on above: Performed By: #### B MP, TSH #### [facility] [address] [place] [address] Dr. Reema Mireles Sodium [Moles/Vol] 138 mmol/L Normal 136-145 [facility] Comment on above: Performed By: #### B MP, TSH #### [facility] [address] [place] [address] Dr. Reema Mireles Urea nitrogen [Mass/Vol] 8.0 mg/dL Normal 7.0-18.0 [facility] [place] [facility] Comment on above: Performed By: #### B MP, TSH #### [facility] [address] [place] [address] Dr. Reema Mireles Urea nitrogen/Creatinine [Mass ratio] 10.1 mg/mg Normal [facility] [place] [facility] Comment on above: Performed By: #### B MP, TSH #### [facility] [address] [place] [address] Dr. Reema Mireles PROTIMEon 08-11-2022 INR Coag (PPP) [Relative time] 1.00 {INR} Normal [facility] [place] [facility] Comment on above: Performed By: #### P T, PTT #### [facility] [address] [place] [address] Dr. Reema Mireles INR GUIDELINES SEE BELOW Normal [facility] Comment on above: Result Comment: FELICIANO RED INR: 2.0 - 3.0 CONDITIONS NOT LISTED BELOW 2.5 - 3.5 FOR PROSTHETIC HEART VALVE REPLACEMENT 2.5 - 3.5 RECURRENT THROMBOSIS Performed By: #### P T, PTT #### [facility] [address] [place] [address] Dr. Reema Mireles PT Coag (PPP) [Time] 10.8 s Normal 9.0-11.6 [facility] [place] [facility] Comment on above: Performed By: #### P T, PTT #### [facility] [address] [place] [address] Dr. Reema Mireles PTTon 08-11-2022 aPTT Coag (Bld) [Time] 30.8 s Normal 22.3-36.2 [facility] [place] [facility] Comment on above: Performed By: #### P T, PTT #### [facility] [address] [place] [address] Dr. Reema Mireles [facility] 10 mm/hr Normal <=20 [facility] Comment on above: Performed By: #### B MP, TSH #### [facility] [address] [place] [address] Dr. Reema Mireles TSHon 08-11-2022 TSH 3.313 uIU/mL Normal 0.358-3.740 [facility] Comment on above: Performed By: #### B MP, TSH #### [facility] [address] [place] [address] Dr. Reema Mireles Discharge Instructionson Discharge Instructions [id number] #1.00CD:127 Normal [facility] Comment on above: Other Comment: wrong patient STOOL CULTUREon 04-20-2022 Campylobacter Culture Final report Normal [facility] [place] [facility] Comment on above: Performed By: #### B MP, TSH #### [facility] [address] [place] [address] Dr. Reema Mireles E coli Shiga Toxin EIA Negative Normal Negative [facility] [place] [facility] Comment on above: Performed By: #### B MP, TSH #### [facility] [address] [place] [address] Dr. Reema Mireles Result 1 Comment Normal [facility] [place] [facility] Comment on above: Result Comment: No S almonella or Shigella recovered. Performed By: #### B MP, TSH #### [facility] [address] [place] [address] Dr. Reema Mireles Result Comment: No C ampylobacter species isolated. Salmonella/Shigella Screen Final report Normal [facility] Comment on above: Performed By: #### B MP, TSH #### [facility] [address] [place] [address] Dr. Reema Mireles Coding Summary.on 04-14-2022 Coding Summary. CD:[id number] Gh0bWw+PGhlYWQ+PE1FV PPyG38qjTBztD8PG8iDH O2ZEMYOCNUJJV5MKC4ll YP2RVyrW9LcoyNm JjfzlXXzPA29JLe9KCM7 rLqmJBoxmD6fwLSkR5o3 QoBvDQ98lC46FCsyYTXc MeS9JbTluwwwbFCb O9yqQcSfwARuWkl+PHRh YmxlIHdpZHRoPScxMDAl EnQjdAlhIL7vLa9uHDMn LWNvbGxhcHNlOiBj v5fpGZSeAOcmEU0owFzl K8KtaFN2FEOjd5q3Ut14 dHI+VUQyVEO9yTvlZTwt x772BqYoc7bmFPH3 dHOgXQqvFXC4D09pf9P0 HBPsMMVzIDU5wEA3iX9b xIcnzdbpJ5CsqDDzCrO0 UJQ7kPRmnN6avEpk cispbP5hZgu+C56DNB0Q GYXYZI4WZev4U2MbBply dHI+EH90DPGdGM54jUZm xTTlt4bogUc0JyGd BPGhOGU2cPpmRTnub7Up PTFwY87mtAMie1C4GLJl mPamuZRiOrHjeXT4vC2k GOvxhmjru6ocbreo Juqil8tezw39yW60O28p REtoKBPhTNF4WLBwHKQa dCvecu2cfH1uUu4+IDxj z7tpp8wrhQk0RrOm ECBpjzXggCbwELL4s9Jj Go97B4HvsMlyl3JiLgf4 qr76jFVvr8I5yLX3MJlx OTLfbS7uSMdpCeL8 ZWAmFhIrhM58oQPiIHjl Cy0yxHfrhJvjNK7jLDTt ffybOCMpqA7gYYXhoZPi oRfmFH0zOTPujtmv j038AaOyJLB6HTJvjDJb Z4SwfK5nWdSiZZYjHQTl V8FbpKDrJCezE594LDds PbA6JHKkfqXyP0Us KWAgyTfaUiD6e3J5Sc1S y0KvnyxvDSJ2JTwpMJS6 NjE1QjPwLcT5N8DaXml1 JECoaJsoCD6bX1Wp PEVzenrsigqrbFT8IEFb KCOutG34gFCxBKkjXb4y m6U0v656GETmAOPtrP44 Cz2djXgnOCSkzHAX qI7dvpnsl4qsmmvxNmDp AOYyMCf9NPa1JOLmlYnu MkQiEBS6PnU1GGJ8iCRq zN3ywUzqqwaukT7h Oyc+Y09yhX4gWJH3DWA8 skngMWKygzBqUF96BA51 L8KnBmntmHWbdHI+PGRp aaZmwAkoOF3cSbHl y8xgy5VqQVicB6JrLKYq ESaxEbf2HAArQEJ6tVR0 eT5lYYOoHRsjk8M1aLG1 B3HmahJbnm2ry9bk OJQvQBvdV31xfMDew9I6 AVCogLK4RTOnzBadSmDq yB55Iev+ULMjcYieu6Ww Vdtug2wlg0agbYb9 IjMwJSIgdmFsaWduPSJ0 u1IlBv85B79tDWceJOIv AKQgJYYgLXFwtMigoq9n iP5vNo9+PGNvbCB3 oRR1yM4dSUEtEhR6BKfd E262ZjQimKQvTvntz1xt r4rzwFj8TySuWCZvksEl pDtuFRW6r8QqLq85 P41uHUbtFORnHENyFDXr DIIlzAwggc1gdY7rId2+ AB6ek6nqix00xO91bDJ+ UJSlVSR5eTxpLEyk NFNqnQ4pRInmSaL2IOMq WbOnvL45xQNhKVqfTp0v xZqohLgiPL7rZATuhnur r009JtOwy8apJMYc bGKgAJbjPFY2C05lw9G0 JEWeYOXgTFZ8xST6tE9b bGlnbjogbGVmdDsgdmVy qIusYGmuGJdqC032 IHRvcDsnPlBhdGllbnQg FvVuCSk9A0StPbh2DFHc oPloFS4itJVmTHkuMj2z aAufyGymYP7kPRUl qlhna879NqWcz4naOGVr lCJtICklQIS7L37mv4U7 IAVsHEYzKCD3aEI1iU5n bGlnbjogbGVmdDsg kmGcpMwfJXkiXGomH886 IHRvcDsnPkJpcnRoIERh iAR0TK57ZG84xIQxy0P2 xFU7K1FoOWClnvzs vylnnRK6LVOrSEZafK84 No7imDwzSr8vQLBsQIG2 KTCzoKMyF9NccC1iBbMq SDHhLKTgK4UawZYk QEoqE798JBqaVrR9NXAp vaEeK1NxDHVfmSuyWtN3 z8Q3Ba6WE5E3AP72KO40 mUDep5R8pPU8N8Qc WVWbijqdtsfjySU5FIPh DRAjoI82Fi6gzAoqCb4t MBLpVPG7TXVsiXEgQ5Yv gL0bGhKgUDKnNZVn D3MduGLhHDlkC658JAjz WbQ6YQWcsjFyB1PpPVLc mXyvSoT2c0B2Bj5DWIv7 WA35OB01cYCrr7P0 pTV9S9NgEQYdxwwudulk aIK8SXAgJYLmwQ93Qd1y dJntSa2kDKNyRSY8XZIb bMIrO3YzdC7pGlSq CFWfTXDeP7YrnYBnPWuu B396DDcxLbD6WLIdufAk O4PcJTCucKrxLoR6m9G3 Dp2FIPDoEU58MAQ8 cNJ4VN42VP92U6VuQybw dGFibGU+PHRhYmxlIHdp ZHRoPScxMDAlJyBzdHls VZ9rPd0hJZYcCBWx qEknwHNjJkFxb8sqNDRd YDzpNF7mtUyyS6PztJY0 BINpa4n8Us04I58fF5Ca dXA+CIOeiVZ6gFF2 pV9dZyLeBqY0XNfhY790 XzLvmGUyCfuhu9twb9ri rXq8EkN1HOAzxeFzkPbf UWA3z0VoUd42J73s IHdpZHRoPSIxNSUiIHZh rQztgt1exO1lBa5+PGNv zYP8sZV3rE1nInEhAcR7 OPjlY104HtUboIBw Vysax1xjm6hkjDx7PsGw SQEqkkFxjMngMSZ5s4Mk Xd48Q9PpeCtsq4SjEcv0 io46fGKem5W3iTK1 N1VyAPVesjdrqOJemZto OC6sBIZuutqzJMApbW4l YLNhB9f7XqPaCjJ2SNep D6RbueD9RMWijCZw FRchBID3E61lu7F9ZKIb SIHnPAI9vRO1aJ5boKfh bjogbGVmdDsgdmVydGlj KNfpCQawH345KZAt kXyjFJBnsQ4sFKJjbOPr lOepCU6cIBFewsdhZuaK UDVAD98OS3wAWYVMQRKJ BVV1Y9KhFuz9NRPp iVaaHO4mlNRlUZenNb1w mJhwmXrcFH7wIQUledfj QJCsgA8pDMBxaWEekQbl GP1xTQKgzhvcj099 KfBjAPD8RFVmuWBtF6Yo aI7iGzFbJBIxUUQiK6Wv jVYkADhrM635VOdpZdU3 KCLakqCzA7TaWGJc oCtrFlI0y2F7Ov2uYz0y JN4vUDApNG04JH50uOZu b4L1sDZ5Q7SnORCybpxk wmftbPM5AEHvAXVj eJ77uCEyPMvhXx8df0M5 h084DNTxALEzlS23Bn3w yHgsCEBghDNUaI9dgbxv d3wlihqtCmGrTESb NUw8BAh5DWYiwKfaQcXj VSZ1IqE6BVM7cRYvrG2h iYaoqsjnxI5tBvm+MjAg MGVqqlL4A9HeWez4 AYCvrEhoVB5bhWKrPDht Dw1omNilnSkhEM7aTAQw ywbjNSDjnZ9uMACotKRi kBooIW3oOEMyuwqm g093FoBpGDW6UHPzyGFa N0XzuT7pFzYvQCNeTFPa U8OjuVSiJEobR328YEes SjW8GMJplqJeR4Ph OSIsbBdcOxI8t7G8Hr9U GN1hrSB3J9LzZvr6KCGq aCzqQR8gpKYnDLcwZf3p jGjanHtuRO3cWTYl ejotTEXqeR3nSMUgmHEh uGvcBT9cBUZrrpqas383 UxLxZOF0WOLhhOIlI9Vo aO6bCbMtXLLpBOMo T7TynEKgJHbqQ912GPrt VqH7ZZPtwqJjQ1DhNMKg gTrrErO4l9P8My3DxKKh O9JdY9s3L6UgWvrb dHI+HT97IWUnVA98fDAo nGDor6yzkFw5PjGiICLg VNR2bDxoQIgfw8FsXBIw R71ouANlw1E1ESUm cAdusJFrRwVklBH9iC8c VVhroewwj3rntartQage n1pqmy04qW04O74zSPlr ZHRoPSIzMCUiIHZh rSuvoq4xdG6oPh8+PGNv wZY6aNV0vZ5fRfTjAnV1 XAyzW310TkVlnZCjNipc v7onh4iagId4CoVn RFYmfaGyqPzuHQT0j5Tk Gs24K59dQNwrMIWtLHZk MCKtBKXvbTxexe9gsS7y Ii8+RZ5bl3vvfe72 xO63vYD+YBBtBUL8rEdx PZbrAJFgfF5qNEtzZiN4 MUExMbHslN63rXRlOYly Nu8tnHlghLpzWE8a FJAwareqt666YuGff6ib JUGzxTZzYExmZPG7K72r j7D6RMBbAEOcVUZ7eEW9 pU0fqVqghlgleSLe dDsgdmVydGljYWwtYWxp L143STGjgNicZbXhcXBe N7kmxgCBPL9lRacivVH+ BLXxSNK3mJceZMzn OJWwgQ4cDYPnV4h9TdMg RbY1ADxtS9IwriP4RJDv aCNpMWOpoWKXvF1prmcq e5tnuwjcRxPwSTZk QSe0DQo8NXQefBadYkXu NTN7TwH5WYJ8gRYjhI2r pDrjmzghhU4vHgv+RklO OjwvdGQ+PHRkIHN0 lHwjAHqvUGEduE1fOSPl L5d9AkGaYuK8MYrxQ4Zt miQ2RLFzrOLhFAJzoHUS jX1ncolrv4qljnfr LbNeGVBdCWd6TUn1MJOp lXulGmHwPLB6ZeJ4IEB4 iINmeM4jlCxoamdspI4u Oyc+TVJOOjwvdGQ+ GWPeIFH4rBgwJWdxPRHq cX9aJMSmP7b3ZsLeZhF0 TPcwE7OpoqY0VHZogKPb VBGbpXBBcP7gjlyd k6uguehnVgIwCTHjNEw7 EGr0FWJzmGorOxNkSSR1 HnB9GDR2wKKldA4urYeh gqxmyY9vVvf+UGF5 LEW6TX23ZR78N4IzHkln dGFibGU+PHRhYmxlIHdp ZHRoPScxMDAlJyBzdHls MJ9lJx4zQEXgTVKa bGxh (more content not included)... Normal [facility] CBC AUTO DIFFon 04-13-2022 BASO # 0.1 103/ul Normal 0.0-0.1 [facility] [place] [facility] Comment on above: Performed By: #### C VDTBH #### [facility] [address] [place] [address] Dr. Reema Mireles Basophils/100 WBC (Bld) 0.6 % Normal 0.2-2.0 [facility] [place] [facility] Comment on above: Performed By: #### C VDTBH #### [facility] [address] [address] [address] Reema Mireles EO # 0.0 103/ul Normal 0.0-0.7 [facility] [place] [facility] Comment on above: Performed By: #### C VDTBH #### [facility] [address] [place] [address] Dr. Reema Mireles Eosinophils/100 WBC (Bld) 0.2 % Critically low 0.9-7.0 [facility] [place] [facility] Comment on above: Performed By: #### C VDTBH #### [facility] [address] [address] [address] Reema Mireles Erythrocyte distribution width (RBC) [Ratio] 11.4 % Normal 11.0-15.0 [facility] [place] [facility] Comment on above: Performed By: #### C VDTBH #### [facility] [address] [place] [address] Dr. Reema Mireles Hematocrit (Bld) [Volume fraction] 38.3 % Normal 36.0-48.0 [facility] [place] [facility] Comment on above: Performed By: #### C VDTBH #### [facility] [address] [place] [address] Dr. Reema Mireles Hemoglobin (Bld) [Mass/Vol] 13.4 g/dL Normal 12.0-16.0 [facility] [place] [facility] Comment on above: Performed By: #### C VDTBH #### [facility] [address] [place] [address] Dr. Reema Mireles IG # 0.01 10e3/ul Normal 0.00-0.03 [facility] [place] [facility] Comment on above: Performed By: #### C VDTBH #### [facility] [address] [place] [address] Dr. Reema Mireles IG % 0.1 % Normal 0.0-0.5 [facility] [place] [facility] Comment on above: Performed By: #### C VDTBH #### [facility] [address] [place] [address] Dr. Reema Mireles LYMPH # 1.8 103/ul Normal 1.2-3.8 [facility] Comment on above: Performed By: #### C VDTBH #### [facility] [address] [place] [address] Dr. Reema Mireles Lymphocytes/100 WBC (Bld) 22.2 % Normal 20.5-60.0 [facility] [place] [facility] Comment on above: Performed By: #### C VDTBH #### [facility] [address] [place] [address] Dr. Reema Mireles MANUAL DIFF REQ NO Normal [facility] Comment on above: Performed By: #### C VDTBH #### [facility] [address] [place] [address] Dr. Reema Mireles MCH (RBC) [Entitic mass] 30.6 pg Normal 26.7-34.0 [facility] Comment on above: Performed By: #### C VDTBH #### [facility] [address] [place] [address] Dr. Reema Mireles MCHC (RBC) [Mass/Vol] 35.0 g/dL Normal 29.9-35.2 [facility] Comment on above: Performed By: #### C VDTBH #### [facility] [address] [place] [address] Dr. Reema Mireles MCV (RBC) [Entitic vol] 87.4 fL Normal 81.0-99.0 [facility] [place] [facility] Comment on above: Performed By: #### C VDTBH #### [facility] [address] [place] [address] Dr. Reema Mireles MONO # 0.7 103/ul Normal 0.3-0.8 [facility] [place] [facility] Comment on above: Performed By: #### C VDTBH #### [facility] [address] [place] [address] Dr. Reema Mireles Monocytes/100 WBC (Bld) 8.2 % Normal 1.7-12.0 [facility] [place] [facility] Comment on above: Performed By: #### C VDTBH #### [facility] [address] [place] [address] Dr. Reema Mireles NEUT # 5.5 103/ul Normal 1.4-6.5 [facility] [place] [facility] Comment on above: Performed By: #### C VDTBH #### [facility] [address] [place] [address] Dr. Reema Mireles Neutrophils/100 WBC (Bld) 68.7 % Normal 43.0-75.0 [facility] [place] [facility] Comment on above: Performed By: #### C VDTBH #### [facility] [address] [place] [address] Dr. Reema Mireles Platelet mean volume (Bld) [Entitic vol] 10.1 fL Normal 9.5-13.5 [facility] [place] [facility] Comment on above: Performed By: #### C VDTBH #### [facility] [address] [place] [address] Dr. Reema Mireles PLT 404 103/ul Normal 150-450 [facility] Comment on above: Performed By: #### C VDTBH #### [facility] [address] [place] [address] Dr. Reema Mireles RBC 4.38 106/ul Normal 4.20-5.40 [facility] Comment on above: Performed By: #### C VDTBH #### [facility] [address] [place], [place] [address] Dr. Reema Mireles WBC 8.0 103/ul Normal 4.0-11.0 [facility] [place] [facility] Comment on above: Performed By: #### C VDTBH #### [facility] [address] [place], [place] [address] HEAD WO CONon [...] Normal [facility] Discharge Instructionson Discharge Instructions [id number] #1.00CD:127 Normal [facility] ED Note-Physicianon 04-13-20 ED Note-Physician Basic Information Time Seen: Lata Hardy M.D. 04/12/2022 19:56 Chief Complaint Pt. presents to the ed with c/o headache and vertigo since thursday. Pt. was seen at [facility] and started on prednisone. pt. stopped taking [...] seen at [facility] discharged home. She went to urgent care [...] seen at [facility] and started on prednisone. Possible her symptoms [...] ADRYAN MARIE In 3 days 04/15/2022 EDT [facility] [id number] Business (1) Additional Instructions: Return to the [...] Diagnostic Results No qualifying data available. Normal [facility] Comment on above: Result Comment: Elec tronically Signed By: Antony Villa, Lata Baxter\.br\Date and Time Signed: 04/13/22 04:56 EDT ER URINE PROFILEon 2 Bilirubin Ql (U) Negative Normal NEGATIVE [facility] Comment on above: Performed By: #### P REGU, ERUR #### [facility] [address] [address] [address] Reema Mireles Clarity (U) CLEAR Normal CLEAR [facility] Comment on above: Performed By: #### P REGU, ERUR #### [facility] [address] [address] [address] Reema Mireles Color (U) LT. YELLOW Normal YELLOW [facility] Comment on above: Performed By: #### P REGU, ERUR #### [facility] [address] [address] [address] Reema Mireles ERUAHD A micrscopic examination will be performed if indicated. Normal [facility] Comment on above: Performed By: #### P REGU, ERUR #### [facility] [address] [address] [address] Reema Mireles Glucose Ql (U) Negative Normal NEGATIVE [facility] Comment on above: Performed By: #### P REGU, ERUR #### [facility] [address] [place] [address] Dr. Reema Mireles Hemoglobin Ql (U) Negative Normal NEGATIVE [facility] Comment on above: Performed By: #### P REGU, ERUR #### [facility] [address] [place] [address] Dr. Reema Mireles Ketones Ql (U) Negative Normal NEGATIVE [facility] Comment on above: Performed By: #### P REGU, ERUR #### [facility] [address] [place] [address] Dr. Reema Mireles LEUKOCYTES Negative Normal NEGATIVE [facility] [place] [facility] Comment on above: Performed By: #### P REGU, ERUR #### [facility] [address] [place] [address] Dr. Reema Mireles Nitrite Ql (U) Negative Normal NEGATIVE [facility] Comment on above: Performed By: #### P REGU, ERUR #### [facility] [address] [place] [address] Dr. Reema Mireles pH (U) 6.5 [pH] Normal 5-9 [facility] [place] [facility] Comment on above: Performed By: #### P REGU, ERUR #### [facility] [address] [place] [address] Dr. Reema Mireles SPEC GRAVITY 1.005 Normal 1.005-<=1.[address] [facility] Comment on above: Performed By: #### P REGU, ERUR #### [facility] [address] [place] [address] Dr. Reema Mireles UA PROTEIN Negative Normal NEGATIVE/ TRACE The [facility] Comment on above: Performed By: #### P REGU, ERUR #### [facility] [address] [place] [address] Dr. Reema Mireles UR MICRO IND NOT INDICATED Normal [facility] Comment on above: Performed By: #### P REGU, ERUR #### [facility] [address] [place] [address] Dr. Reema Mireles Urobilinogen Qn (U) 0.2 {Renny'U}/dL Normal 0.2 - 1. 0 [facility] [place] [facility] Comment on above: Performed By: #### P REGU, ERUR #### [facility] [address] [address] [address] Reema Mireles URon 04-13-2022 , QUAL Negative Normal NEGATIVE [facility] Comment on above: Performed By: #### P REGU, ERUR #### [facility] [address] [address] [address] Reema Mireles PROF CHEM 8 (BAS METB)on Anion gap [Moles/Vol] 14.0 mmol/L Normal [facility] [place] [facility] Comment on above: Performed By: #### B MP, TSH #### [facility] [address] [place] [address] Dr. Reema Mireles Calcium [Mass/Vol] 9.2 mg/dL Normal 8.5-10.1 [facility] Comment on above: Performed By: #### B GURPREET, TSH #### [facility] [address] [address] [address] Reema Mireles Chloride [Moles/Vol] 102 mmol/L Normal 98-107 [facility] Comment on above: Performed By: #### B GURPREET, TSH #### [facility] [address] [address] [address] Reema Mireles CO2 [Moles/Vol] 26.3 mmol/L Normal 21.0-32.[address] [facility] Comment on above: Performed By: #### B MP, TSH #### [facility] [address] [address] [address] Reema Mireles Creatinine [Mass/Vol] 0.65 mg/dL Normal 0.55-1.02 [facility] Comment on above: Performed By: #### B MP, TSH #### [facility] [address] [place] [address] Dr. Reema Mireles EGFR-AF TURKMEN >60 Normal >=[address] [facility] Comment on above: Performed By: #### B MP, TSH #### [facility] [address] [address] [address] Reema Mireles EGFR-NON AF TURKMEN >60 Normal >=60 [facility] [place] [facility] Comment on above: Performed By: #### B GURPREET, TSH #### [facility] [address] [address] [address] Reema Mireles Glucose [Mass/Vol] 92 mg/dL Normal 74-106 [facility] Comment on above: Performed By: #### B GURPREET, TSH #### [facility] [address] [address] [address] eRema Mireles Potassium [Moles/Vol] 3.3 mmol/L Critically low 3.5-5.1 [facility] [place] [facility] Comment on above: Performed By: #### B GURPREET, TSH #### [facility] [address] [place] [address] Dr. Reema Mireles Sodium [Moles/Vol] 139 mmol/L Normal 136-145 [facility] Comment on above: Performed By: #### B GURPREET, TSH #### [facility] [address] [address] [address] Reema Mireles Urea nitrogen [Mass/Vol] 8.0 mg/dL Normal 7.0-18.0 [facility] [place] [facility] Comment on above: Performed By: #### B GURPREET, TSH #### [facility] [address] [place] [address] Dr. Reema Mireles Urea nitrogen/Creatinine [Mass ratio] 12.3 mg/mg Normal [facility] [place] [facility] Comment on above: Performed By: #### B GURPREET, TSH #### [facility] [address] [place] [address] Dr. Reema Mireles TSHon 04-13-2022 TSH 1.293 uIU/mL Normal 0.358-3.740 [facility] Comment on above: Performed By: #### B GURPREET, TSH #### [facility] [address] [place] [address] Dr. Reema Mireles Consent for Treatmenton 03-28 Consent for Treatment [id number] Normal [facility] ED Clinical Summaryon 2021 ED Clinical Summary [address] [address] ED Clinical Summary Person Information Name: JUANPABLO CHAPARRO [place] Age: 21 Years : 2000 Sex: Female Language: [place] PCP: ADRYAN MARIE MD Marital Status: Single Phone: [phone] Visit Id: Visit Reason: Vertigo - recurrent; [...] 04/12/2022 21:07:38 04/12/2022 21:07:38 04/12/2022 21:07:38 ADDRESS: [address] [place] [phone] PHYS DOC NOTES: MEDICAL INFORMATION: Prescriptions Given: PATIENT EDUCATION INFORMATION: Instructions: General Headache Without Cause; Vertigo Follow up: With: Address: When: ADRYAN MARIE [address] [place], [place] [id number] [employer] (1) In 3 days 04/15/2022 Comments: Return to the emergency room if her headache gets worse, vertigo becomes persistent or any new symptoms DIAGNOSIS: 1:Vertigo; 2:Headache Normal [facility] ED Patient Education Noteon 04-12-2022 ED [...] you feel dizzy. General instructions ? Take nbzr-mbj-iniotzb and prescription medicines only as told by [...] 06/24/2006 Document Revised: 08/08/2019 Document Reviewed: 08/08/2019 [employer] Patient Education ? 2020 [employer] Neurology General Headache Without Cause A [...] with your condition: Managing pain ? Take kirv-ixu-ntszgyv and prescription medicines only as told by [...] of beer (more content not included)... Normal [facility] ED Patient Summaryon 022 ED Patient Summary [address] [address] Patient Discharge Instructions Person Information Name: JUANPABLO CHAPARRO Age: 21 Years Arrival Date: 04/12/2022 19:22:40 Discharge Diagnosis: 1:Vertigo; 2:Headache Primary Care Physician: ADRYAN MARIE MD Provider Information Primary Provider: Antony Villa, Lata Baxter Advanced Full Time Paramedic:None The exam and treatment you received in the Emergency Department were for an urgent problem and are not intended as complete care. It is important that you follow up with a doctor, nurse practitioner, or physician?s paperhanger assistant for ongoing care. If your symptoms [...] Follow-up Instructions: With: Address: When: ADRYAN MARIE [address] [place], [place] [id number] [employer] (1GivU In 3 days 04/15/2022 Comments: Return to [...] opioids can be used to help relieve ihellmmh-mp-wkaafv pain and are often prescribed following a [...] addiction, tel (more content not included)... Normal [facility] CBC AUTO DIFFon 04-09-2022 BASO # 0.1 103/ul Normal 0.0-0.1 [facility] [place] [facility] Comment on above: Performed By: #### B MP, TSH #### [facility] [address] [address] [address] Reema Mireles Basophils/100 WBC (Bld) 0.5 % Normal 0.2-2.0 [facility] [place] [facility] Comment on above: Performed By: #### B MP, TSH #### [facility] [address] [place] [address] Dr. Reema Mireles EO # 0.1 103/ul Normal 0.0-0.7 The [facility] Comment on above: Performed By: #### B MP, TSH #### [facility] [address] [place] [address] Dr. Reema Mireles Eosinophils/100 WBC (Bld) 1.0 % Normal 0.9-7.0 [facility] [place] [facility] Comment on above: Performed By: #### B MP, TSH #### [facility] [address] [place] [address] Dr. Reema Mireles Erythrocyte distribution width (RBC) [Ratio] 11.7 % Normal 11.0-15.0 [facility] [place] [facility] Comment on above: Performed By: #### B MP, TSH #### [facility] [address] [place] [address] Dr. Reema Mireles Hematocrit (Bld) [Volume fraction] 37.2 % Normal 36.0-48.0 [facility] [place] [facility] Comment on above: Performed By: #### B MP, TSH #### [facility] [address] [place] [address] Dr. Reema Mireles Hemoglobin (Bld) [Mass/Vol] 12.8 g/dL Normal 12.0-16.0 [facility] [place] [facility] Comment on above: Performed By: #### B GURPREET, TSH #### [facility] [address] [place] [address] Dr. Reema Mireles IG # 0.02 10e3/ul Normal 0.00-0.03 The [facility] Comment on above: Performed By: #### B MP, TSH #### [facility] [address] [place] [address] Dr. Reema Mireles IG % 0.2 % Normal 0.0-0.5 [facility] [place] [facility] Comment on above: Performed By: #### B MP, TSH #### [facility] [address] [place] [address] Dr. Reema Mireles LYMPH # 1.8 103/ul Normal 1.2-3.8 [facility] [place] [facility] Comment on above: Performed By: #### B MP, TSH #### [facility] [address] [place] [address] Dr. Reema Mireles Lymphocytes/100 WBC (Bld) 19.0 % Critically low 20.5-60.0 [facility] [place] [facility] Comment on above: Performed By: #### B MP, TSH #### [facility] [address] [place] [address] Dr. Reema Mireles MANUAL DIFF REQ NO Normal [facility] Comment on above: Performed By: #### B MP, TSH #### [facility] [address] [place] [address] Dr. Reema Mireles MCH (RBC) [Entitic mass] 30.4 pg Normal 26.7-34.0 [facility] [place] [facility] Comment on above: Performed By: #### B MP, TSH #### [facility] [address] [place] [address] Dr. Reema Mireles MCHC (RBC) [Mass/Vol] 34.4 g/dL Normal 29.9-35.2 [facility] [place] [facility] Comment on above: Performed By: #### B MP, TSH #### [facility] [address] [place] [address] Dr. Reema Mireles MCV (RBC) [Entitic vol] 88.4 fL Normal 81.0-99.0 [facility] [place] [facility] Comment on above: Performed By: #### B MP, TSH #### [facility] [address] [place] [address] Dr. Reema Mireles MONO # 0.7 103/ul Normal 0.3-0.8 [facility] [place] [facility] Comment on above: Performed By: #### B MP, TSH #### [facility] [address] [place] [address] Dr. Reema Mireles Monocytes/100 WBC (Bld) 6.8 % Normal 1.7-12.0 [facility] [place] [facility] Comment on above: Performed By: #### B MP, TSH #### [facility] [address] [place] [address] Dr. Reema Mireles NEUT # 7.0 103/ul Critically high 1.4-6.[address] [facility] Comment on above: Performed By: #### B GURPREET, TSH #### [facility] [address] [place] [address] Dr. Reema Mireles Neutrophils/100 WBC (Bld) 72.5 % Normal 43.0-75.0 [facility] [place] [facility] Comment on above: Performed By: #### B GURPREET, TSH #### [facility] [address] [place] [address] Dr. Reema Mireles Platelet mean volume (Bld) [Entitic vol] 10.3 fL Normal 9.5-13.5 [facility] [place] [facility] Comment on above: Performed By: #### B GURPREET, TSH #### [facility] [address] [place] [address] Dr. Reema Mireles PLT 358 103/ul Normal 150-450 [facility] [place] [facility] Comment on above: Performed By: #### Inna VÁZQUEZ, TSH #### [facility] [address] [place] [address] Dr. Reema Mireles RBC 4.21 106/ul Normal 4.20-5.40 [facility] Comment on above: Performed By: #### B GURPREET, TSH #### [facility] [address] [place] [address] Dr. Reema Mireles WBC 9.7 103/ul Normal 4.0-11.0 [facility] Comment on above: Performed By: #### B GURPREET, TSH #### [facility] [address] [place] [address] Dr. Reema Mireles CULTURE BLOODon 04-09-2022 Microscopic examination of blood, culture Culture Observations: NO GROWTH AT 5 DAYS. Normal The [facility] Comment on above: Performed By: #### B GURPREET, TSH #### [facility] [address] [place] [address] Dr. Reema Mireles ER URINE PROFILEon 2 Bilirubin Ql (U) Negative Normal NEGATIVE [facility] Comment on above: Performed By: #### B GURPREET, TSH #### [facility] [address] [place] [address] Dr. Reema Mireles Clarity (U) CLEAR Normal CLEAR [facility] [place] [facility] Comment on above: Performed By: #### B MP, TSH #### [facility] [address] [place] [address] Dr. Reema Mireles Color (U) LT. YELLOW Normal YELLOW [facility] [place] [facility] Comment on above: Performed By: #### B MP, TSH #### [facility] [address] [place] [address] Dr. Reema Mireles ERUAHD A micrscopic examination will be performed if indicated. Normal The [facility] Comment on above: Performed By: #### B MP, TSH #### [facility] [address] [place] [address] Dr. Reema Mireles Glucose Ql (U) Negative Normal NEGATIVE [facility] Comment on above: Performed By: #### B MP, TSH #### [facility] [address] [place] [address] Dr. Reema Mireles Hemoglobin Ql (U) TRACE-INTACT Abnormal NEGATIVE [facility] Comment on above: Performed By: #### B MP, TSH #### [facility] [address] [place] [address] Dr. Reema Mireles Ketones Ql (U) Negative Normal NEGATIVE [facility] Comment on above: Performed By: #### B MP, TSH #### [facility] [address] [place] [address] Dr. Reema Mireles LEUKOCYTES Negative Normal NEGATIVE [facility] [place] [facility] Comment on above: Performed By: #### B MP, TSH #### [facility] [address] [place] [address] Dr. Reema Mireles Nitrite Ql (U) Negative Normal NEGATIVE [facility] Comment on above: Performed By: #### B MP, TSH #### [facility] [address] [place] [address] Dr. Reema Mireles pH (U) 5.5 [pH] Normal 5-9 [facility] [place] [facility] Comment on above: Performed By: #### B MP, TSH #### [facility] [address] [place] [address] Dr. Reema Mireles SPEC GRAVITY <=1.005 Abnormal 1.005-<=1.025 [facility] Comment on above: Performed By: #### B MP, TSH #### [facility] [address] [place] [address] Dr. Reema Mireles UA PROTEIN Negative Normal NEGATIVE/ TRACE The [facility] Comment on above: Performed By: #### B MP, TSH #### [facility] [address] [place] [address] Dr. Reema Mireles UR MICRO IND INDICATED Normal [facility] [place] [facility] Comment on above: Performed By: #### B MP, TSH #### [facility] [address] [place] [address] Dr. Reema Mireles Urobilinogen Qn (U) 0.2 {Renny'U}/dL Normal 0.2 - 1. 0 [facility] [place] [facility] Comment on above: Performed By: #### B GURPREET, TSH #### [facility] [address] [place] [address] Dr. Reema Mireles LACTATE/LACTIC ACIDon 2021 Lactate [Moles/Vol] 2.2 mmol/L Critically high 0.4-1.9 [facility] [place] [facility] Comment on above: Performed By: #### B MP, TSH #### [facility] [address] [place] [address] Dr. Reema Mireles URon 04-09-2022 , QUAL Negative Normal NEGATIVE [facility] Comment on above: Performed By: #### B GURPREET, TSH #### [facility] [address] [place] [address] Dr. Reema Mireles PROF 14(COMP METB)on 022 Albumin [Mass/Vol] 4.5 g/dL Normal 3.4-5.0 [facility] Comment on above: Performed By: #### C MP #### [facility] [address] [place] [address] Dr. Reema Mireles Albumin/Globulin [Mass ratio] 1.3 {ratio} Normal [facility] [place] [facility] Comment on above: Performed By: #### C MP #### [facility] [address] [place] [address] Dr. Reema Mireles ALP [Catalytic activity/Vol] 83 U/L Normal 46-116 [facility] Comment on above: Performed By: #### C MP #### [facility] [address] [address] [address] Reema Mireles ALT [Catalytic activity/Vol] 26 U/L Normal 14-59 [facility] [place] [facility] Comment on above: Performed By: #### C MP #### [facility] [address] [address] [address] Reema Mireles Anion gap [Moles/Vol] 14.9 mmol/L Normal [facility] [place] [facility] Comment on above: Performed By: #### C MP #### [facility] [address] [place] [address] Dr. Reema Mireles AST [Catalytic activity/Vol] 12 U/L Critically low 15-37 [facility] [place] [facility] Comment on above: Performed By: #### C MP #### [facility] [address] [place] [address] Dr. Reema Mireles Bilirubin [Mass/Vol] 0.3 mg/dL Normal 0.2-1.0 [facility] [place] [facility] Comment on above: Performed By: #### C MP #### [facility] [address] [place] [address] Dr. Reema Mireles Calcium [Mass/Vol] 9.6 mg/dL Normal 8.5-10.1 [facility] Comment on above: Performed By: #### C MP #### [facility] [address] [place] [address] Dr. Reema Mireles Chloride [Moles/Vol] 103 mmol/L Normal 98-107 [facility] [place] [facility] Comment on above: Performed By: #### C MP #### [facility] [address] [address] [address] Reema Mireles CO2 [Moles/Vol] 24.4 mmol/L Normal 21.0-32.0 [facility] [place] [facility] Comment on above: Performed By: #### C MP #### [facility] [address] [address] [address] Reema Mireles Creatinine [Mass/Vol] 0.87 mg/dL Normal 0.55-1.02 [facility] [place] [facility] Comment on above: Performed By: #### C MP #### [facility] [address] [address] [address] Reema Mireles EGFR-AF TURKMEN >60 Normal >=60 [facility] [place] [facility] Comment on above: Performed By: #### C MP #### [facility] [address] [address] [address] Reema Mireles EGFR-NON AF TURKMEN >60 Normal >=60 [facility] [place] [facility] Comment on above: Performed By: #### C MP #### [facility] [address] [address] [address] Reema Mireles Globulin (S) [Mass/Vol] 3.5 g/dL Normal [facility] [place] [facility] Comment on above: Performed By: #### C MP #### [facility] [address] [place] [address] Dr. Reema Mireles Glucose [Mass/Vol] 109 mg/dL Critically high 74-106 [facility] Comment on above: Performed By: #### C MP #### [facility] [address] [address] [address] Reema Mireles Potassium [Moles/Vol] 3.3 mmol/L Critically low 3.5-5.1 [facility] [place] [facility] Comment on above: Performed By: #### C MP #### [facility] [address] [place] [address] Dr. Reema Mireles Protein [Mass/Vol] 8.0 g/dL Normal 6.4-8.2 [facility] Comment on above: Performed By: #### C MP #### [facility] [address] [address] [address] Reema Mireles Sodium [Moles/Vol] 139 mmol/L Normal 136-145 [facility] Comment on above: Performed By: #### C MP #### [facility] [address] [address] [address] Reema Mireles Urea nitrogen [Mass/Vol] 9.0 mg/dL Normal 7.0-18.0 [facility] [place] [facility] Comment on above: Performed By: #### C MP #### [facility] [address] [place] [address] Dr. Reema Mireles Urea nitrogen/Creatinine [Mass ratio] 10.3 mg/mg Normal [facility] Comment on above: Performed By: #### C MP #### [facility] Laboratory [address] [place] [address] Dr. Reema Mireles URINE MICROSCOPIC ONLYon BACTERIA NONE SEEN Normal NONE SEEN [facility] [place] [facility] Comment on above: Performed By: #### B MP, TSH #### [facility] [address] [place] [address] Dr. Reema Mireles Bacteria identified Cx Nom (U) NOT INDICATED Normal [facility] Comment on above: Performed By: #### B MP, TSH #### [facility] [address] [place] [address] Dr. Reema Mireles CAST NONE SEEN Normal NONE SEEN [facility] [place] [facility] Comment on above: Performed By: #### B MP, TSH #### [facility] [address] [place] [address] Dr. Reema Mireles Crystals LM Nom (Urine sed) NONE SEEN Normal NONE SEEN [facility] [place] [facility] Comment on above: Performed By: #### B MP, TSH #### [facility] [address] [place] [address] Dr. Reema Mireles Epithelial cells LM Ql (Urine sed) RARE Normal NONE SEEN /RARE [facility] Comment on above: Performed By: #### B MP, TSH #### [facility] [address] [place] [address] Dr. Reema Mireles MUCOUS NONE SEEN Normal NONE SEEN [facility] Comment on above: Performed By: #### B MP, TSH #### [facility] [address] [place] [address] Dr. Reema Mireles RBC 0-2 Normal 0-2 [facility] Comment on above: Performed By: #### B MP, TSH #### [facility] [address] [place] [address] Dr. Reema Mireles WBC NONE SEEN Normal NONE SEEN [facility] [place] [facility] Comment on above: Performed By: #### B MP, TSH #### [facility] [address] [place] [address] Dr. Reema Mireles CBC AUTO DIFFon 10-25-2021 BASO # 0.0 103/ul Normal 0.0-0.1 [facility] [place] [facility] Comment on above: Performed By: #### C BC #### [facility] [address] [place] [address] Dr. Reema Mireles Basophils/100 WBC (Bld) 0.6 % Normal 0.2-2.0 [facility] [place] [facility] Comment on above: Performed By: #### C BC #### [facility] [address] [place] [address] Dr. Reema Mireles EO # 0.1 103/ul Normal 0.0-0.7 [facility] [place] [facility] Comment on above: Performed By: #### C BC #### [facility] [address] [place] [address] Dr. Reema Mireles Eosinophils/100 WBC (Bld) 1.8 % Normal 0.9-7.0 [facility] [place] [facility] Comment on above: Performed By: #### C BC #### [facility] [address] [place] [address] Dr. Reema Mireles Erythrocyte distribution width (RBC) [Ratio] 11.9 % Normal 11.0-15.0 [facility] [place] [facility] Comment on above: Performed By: #### C BC #### [facility] [address] [place] [address] Dr. Reema Mireles Hematocrit (Bld) [Volume fraction] 38.1 % Normal 36.0-48.0 [facility] [place] [facility] Comment on above: Performed By: #### C BC #### [facility] [address] [place] [address] Dr. Reema Mireles Hemoglobin (Bld) [Mass/Vol] 13.1 g/dL Normal 12.0-16.0 [facility] [place] [facility] Comment on above: Performed By: #### C BC #### [facility] [address] [place] [address] Dr. Reema Mireles IG # 0.01 10e3/ul Normal 0.00-0.03 [facility] [place] [facility] Comment on above: Performed By: #### C BC #### [facility] [address] [place] [address] Dr. Reema Mireles IG % 0.1 % Normal 0.0-0.5 [facility] [place] [facility] Comment on above: Performed By: #### C BC #### [facility] [address] [place] [address] Dr. Reema Mireles LYMPH # 1.9 103/ul Normal 1.2-3.8 [facility] Comment on above: Performed By: #### C BC #### [facility] [address] [place] [address] Dr. Reema Mireles Lymphocytes/100 WBC (Bld) 27.8 % Normal 20.5-60.0 [facility] [place] [facility] Comment on above: Performed By: #### C BC #### [facility] [address] [place] [address] Dr. Reema Mireles MANUAL DIFF REQ NO Normal [facility] Comment on above: Performed By: #### C BC #### [facility] [address] [place] [address] Dr. Reema Mireles MCH (RBC) [Entitic mass] 30.5 pg Normal 26.7-34.0 [facility] [place] [facility] Comment on above: Performed By: #### C BC #### [facility] [address] [place] [address] Dr. Reema Mireles MCHC (RBC) [Mass/Vol] 34.4 g/dL Normal 29.9-35.2 [facility] Comment on above: Performed By: #### C BC #### [facility] [address] [place] [address] Dr. Reema Mireles MCV (RBC) [Entitic vol] 88.8 fL Normal 81.0-99.0 [facility] Comment on above: Performed By: #### C BC #### [facility] [address] [place] [address] Dr. Reema Mireles MONO # 0.8 103/ul Normal 0.3-0.8 [facility] [place] [facility] Comment on above: Performed By: #### C BC #### [facility] [address] [place] [address] Dr. Reema Mireles Monocytes/100 WBC (Bld) 11.2 % Normal 1.7-12.0 [facility] Comment on above: Performed By: #### C BC #### [facility] [address] [place] [address] Dr. Reema Mireles NEUT # 4.0 103/ul Normal 1.4-6.5 [facility] Comment on above: Performed By: #### C BC #### [facility] [address] [place] [address] Dr. Reema Mireles Neutrophils/100 WBC (Bld) 58.5 % Normal 43.0-75.0 [facility] Comment on above: Performed By: #### C BC #### [facility] [address] [place] [address] Dr. Reema Mireles Platelet mean volume (Bld) [Entitic vol] 10.0 fL Normal 9.5-13.5 [facility] Comment on above: Performed By: #### C BC #### [facility] [address] [place] [address] Dr. Reema Mireles PLT 361 103/ul Normal 150-450 [facility] Comment on above: Performed By: #### C BC #### [facility] [address] [place] [address] Dr. Reema Mireles RBC 4.29 106/ul Normal 4.20-5.40 [facility] Comment on above: Performed By: #### C BC #### [facility] [address] [place] [address] Dr. Reema Mireles WBC 6.8 103/ul Normal 4.0-11.0 [facility] Comment on above: Performed By: #### C BC #### [facility] [address] [place] [address] Dr. Reema Mireles PREG QUANT HCGon 10-25-2021 HCG QUANT 1 mIU/mL Normal [facility] Comment on above: Performed By: #### P REGQNT #### [facility] [address] [place] [address] Dr. Reema Mireles HCG RANGE SEE BELOW Normal [facility] Comment on above: Result Comment: 5-50 0-1 WEEK 40-300 1-2 WEEKS 100-1,000 2-3 WEEKS 500-6,000 3-4 WEEKS 5,000-200,000 1-2 MONTHS 10,000-100,000 2-3 MONTHS 3,000-50,000 2ND TRIMESTER 1,000-50,000 3RD TRIMESTER Performed By: #### P REGQNT #### [facility] [address] [address] [address] Reema Mireles Covid-19 PCR ([facility])on 09-29 SARS-CoV-2 (COVID-19) RNA FRANKIE+probe Ql (Unsp spec) Not detected Normal NOT DETECTED [facility] Comment on above: Result Comment: This test is not yet approved or cleared by the [place] FDA. When there are no FDA-approved or cleared tests available, and other criteria are met, FDA can make tests available under an emergency access mechanism called an Emergency Use Authorization (EUA). The EUA for this test is supported by the [employer] of Health and Human Service's (HHS's) declaration [...] VDTB #### [facility] [address] [place], [place] [address] Dr. Reema Mireles Vital Signs Date Time Vital Sign Value Performing Clinician Facility 11-12-2023 14:15-0500 Body weight 108.86 kg [employer] Work Phone: [facility] 11-12-2023 14:15-0500 Diastolic blood pressure 72 mm[Hg] [employer] Work Phone: [facility] 11-12-2023 14:15-0500 Systolic blood pressure 122 mm[Hg] Devan Tello DO Work Phone: [facility] 04-12-2022 21:04-0400 Diastolic blood pressure 84 mm[Hg] [facility] 04-12-2022 21:04-0400 Heart rate 82 /min [facility] 04-12-2022 21:04-0400 Respiratory rate 16 /min [facility] 04-12-2022 21:04-0400 SaO2% (BldA) [Mass fraction] 98 % [facility] 04-12-2022 21:04-0400 Systolic blood pressure 120 mm[Hg] [facility] 04-12-2022 20:32-0400 gluc 80 mg/dL [facility] Comment on above: Result Comment: not taken due to pt refu jimmie of any injection 04-12-2022 20:32-0400 gluc [facility] 04-12-2022 19:25-0400 Body temperature 99.32 [degF] [facility] 04-12-2022 19:25-0400 Diastolic blood pressure 84 mm[Hg] [facility] 04-12-2022 19:25-0400 Heart rate 90 /min [facility] 04-12-2022 19:25-0400 Respiratory rate 18 /min [facility] 04-12-2022 19:25-0400 SaO2% (BldA) [Mass fraction] 98 % [facility] 04-12-2022 19:25-0400 Systolic blood pressure 118 mm[Hg] [facility] 04-09-2022 12:20-0400 Body height 165.1 cm Deonna Back Other [employer] Other 04-09-2022 12:20-0400 Body mass index (BMI) [Ratio] 35.61 kg/m2 Deonna Cavanaughmond Other [employer] Other 04-09-2022 12:20-0400 Body temperature 98.4 [degF] Deonna Nazanin Other [employer] Other 04-09-2022 12:20-0400 Body weight 97.07 kg Deonna Nazanin Other [employer] Other 04-09-2022 12:20-0400 Diastolic blood pressure 83 mm[Hg] Deonna Nazanin Other [employer] Other 04-09-2022 12:20-0400 Respiratory rate 18 /min Deonna Cavanaughmond Other [employer] Other 04-09-2022 12:20-0400 SaO2% (BldA) [Mass fraction] 99 % Deonna Nazanin Other [employer] Other 04-09-2022 12:20-0400 Systolic blood pressure 135 mm[Hg] Deonna Nazanin Other [employer] Other 04-02-2022 19:00-0400 Body height 165.1 cm Deonna Nazanin Other [employer] Other 04-02-2022 19:00-0400 Body mass index (BMI) [Ratio] 35.71 kg/m2 Deonna Nazanin Other [employer] Other 04-02-2022 19:00-0400 Body temperature 98.1 [degF] Deonna Nazanin Other [employer] Other 04-02-2022 19:00-0400 Body weight 97.34 kg Deonna Back Other [employer] Other 04-02-2022 19:00-0400 Diastolic blood pressure 83 mm[Hg] Deonna Back Other [employer] Other 04-02-2022 19:00-0400 Respiratory rate 18 /min Deonna Back Other [employer] Other 04-02-2022 19:00-0400 SaO2% (BldA) [Mass fraction] 100 % Deonna Back Other [employer] Other 04-02-2022 19:00-0400 Systolic blood pressure 134 mm[Hg] Deonna Back Other [employer] Other Encounters Encounter Date Encounter Type Care Provider Facility Start: 11-26-2023 End: 11-26-2023 ambulatory CYDNEY LEOS Not Available Start: 11-12-2023 End: 11-12-2023 ambulatory DEVAN OMER Not Available Start: 11-12-2023 End: 11-12-2023 [...] 04-12-2022 End: 04-12-2022 Emergency department patient visit [facility] [place] Start: 04-10-2022 End: 04-10-2022 ambulatory Deonna Back Other [employer] Other Start: 04-10-2022 Telephone encounter Deonna Back [facility] Start: 04-09-2022 End: 04-09-2022 ambulatory Deonna Back Other [employer] Other Start: 04-09-2022 Office outpatient vi sit 15 minutes Deonna Back [facility] Start: 04-09-2022 End: 04-09-[address] LUIS ANTONIO SUTTON Facility:[facility] Start: 04-02-2022 (URG) Urgent Care Visit Deonna Silva d [facility] Start: 04-02-2022 End: 04-02-2022 ambulatory Deonna Back Other [employer] Other Start: 10-25-2021 End: 10-25-[address] ADRYAN MARIE Facility:[facility] Start: 10-24-2021 Encounter for preprocedural laboratory examination DR DEVAN TELLO [facility] [place] [facility] Start: 10-22-2021 End: 10-23-[address] ADRYAN MARIE Facility:[facility] Start: 10-22-2021 End: 10-23-2021 Encounter for preprocedural laboratory examination DR ADRYAN MARIE Facility:[facility] Start: 10-19-2021 Encounter for other preprocedural examination DR DEVAN TELLO [facility] Start: 10-17-2021 End: 10-18-[address] ADRYAN [...] Routine [facility] [address] [place] [id number] Cydney Leos PA [address] [place] [address] [facility] Start: 11-26-2023 End: 11-26-2023 Professional / ancillary services management 11/26/2023 10:30 AM EST Ancillary Procedure [facility] [address] [place] [id number] [facility] Start: 11-12-2023 End: 11-12-2024 US for US OB SCAN FOR GROWTH Imaging Routine Excessive growth affecting management of in third trimester, single or unspecified fetus Expected: 11/12/2023 (Approximate), Expires: 11/12/2024 [facility] Work Phone: Comment on above: Expected: 11/12/2023 (Approximate), Expires: 11/12/2024 Start: 11-12-2023 End: 11-12-2023 Patient encounter procedure 11/12/2023 10:50 AM EST Routine [facility] [address] [place] [address] Devan Tello, [address] [place] [address] [facility] Payers Date Payer Category Payer Unknown [facility] [id number] 2023-Present [address] [place] [address] [id number] 2023 Unknown [id number] 2001 Unknown [id number] 2.16.840.1.626855.3.579.2. 593 2001 Unknown [id number] 2.16.840.1.745466.3.579.2. 593 2001 Unknown [id number] 2.16.840.1.563869.3.579.2. 593 2001 Unknown [id number] 2.16.840.1.966988.3.579.2. 593 2001 Unknown [id number] 2.16.840.1.296530.3.579.2. 593 2001 Unknown [id number] 2.16.840.1.169658.3.579.2. 593 2001 Unknown [id number] 2.16.840.1.589965.3.579.2. 593 2001 Unknown [id number] 2.16.840.1.552756.3.579.2. 593 2001 Unknown [id number] 2.16.840.1.387199.3.579.2. 593 2001 Unknown [id number] 2.16.840.1.735645.3.579.2. 593 2001 Unknown [id number] 2.16.840.1.868114.3.579.2. 593 2001 Unknown [id number] 2.16.840.1.283134.3.579.2. 1259 2001 Unknown [id number] 2.16.840.1.360892.3.579.2. 1259 2001 Unknown [id number] 2.16.840.1.299676.3.579.2. 1259 2001 Unknown [id number] 2.16.840.1.886448.3.579.2. 1259 2001 Unknown [id number] 2.16.840.1.061408.3.579.2. 1259 1958 [facility] [id number] 2.16.840.1.970176.19 Social History Date Type Detail Facility Unknown if ever smoked [facility] [employer] Other Sex Assigned At [facility] [employer] Other Tobacco smoking status No Smoking Status Entered [facility] Start: 06-20-2023 Tobacco smoking status MOIS Tobacco smoking consumption unknown [facility] Start: 10-15-2023 Alcohol intake Lifetime non-d hermse (finding) [facility] Start: 06-20-2023 Tobacco Comment Current smoker (frequency unknown) [facility] Start: 05-06-2023 [facility] Start: 2000 Sex Assigned At Not on file [facility] Goals Date Patient Goal Desired Activity /State Personal health goal Functional Status Date Assessment Result Facility 04-12-2022 Functional Status N/A [facility] History of Present illness Narrative 11-12-2023 Ciarra [...] Devan Tello DO documented in this encounter [facility] Discharge instructions 04-12-2022 Note Date [...] help with your condition: Managing pain Take rcjh-puh-nsqabni and prescription medicines only as told by [...] 09/14/2006 Document Revised: 04/04/2019 Document Reviewed: 04/04/2019 [employer] Patient Education 2020 [employer]. 04/12/2022 21:07:38 Vertigo Vertigo Vertigo is the [...] if you feel dizzy. General instructions Take dvyi-iql-pgtuuxd and prescription medicines only as told by [...] 06/24/2006 Document Revised: 08/08/2019 Document Reviewed: 08/08/2019 [employer] Patient Education [facility]. Follow Up Care 04/12/2022 19:25:17 With:ADRYAN MARIE Address: [address] [place] [address]- Business (1) When:04/15/2022 20:55:24 Comments:Return to the emergency room if her headache gets worse, vertigo becomes persistent or any new symptoms [facility] Evaluation note 04-09-2022 Note Date & Type [...] She was prescribed Zofran with no improvement. [employer] Other Evaluation note 04-02-2022 Note Date & [...] 3 days. No swimming for a week [employer] Other Clinical Note 10-25-2021 Note Date & Type Note Facility 10-25-2021 Note OPERATIVE NOTE PROCEDURE: Diagnostic laparoscopy. PREOPERATIVE DIAGNOSIS: Pelvic pain, dyspareunia dysmenorrhea. POSTOPERATIVE DIAGNOSIS: Pelvic pain, dyspareunia dysmenorrhea. ANESTHESIA: General. SURGEON: Devan Tello D.O. APPLICATION CHEMIST: JAE Worley URINE OUTPUT: Yellow and clear. [...] taken to Recovery Room in stable condition. [facility] Signed and Approved by: DR DEVAN TELLO . 11/01/2021 17:31:00 [facility] Evaluation + Plan note Note Date & Type Note Facility Evaluation + Plan note No data available for this section [facility] Evaluation note Note Date & Type Note Facility Evaluation note No Information [facility] [employer] Other Evaluation note Note Date & Type [...] endometriosis Hospitalization History RSV as a baby [facility] [employer] Other Progress note Note Date & Type Note Facility Progress note No data available for this section [facility] Summary Purpose Family History No Family History Records FoundNo Family History Records FoundNo Family History Records Found Advance Directives No Advanced Directives Records FoundNo Advanced Directives Records FoundNo Advanced Directives Records Found Additional Source Comments REASON FOR VISIT (unrecogniz ed section and content) Reason Comments Routine Visit Care Team (unrecognized sect ion and content) Recreation Director Relationship Specialty Start Date End Date Adryan Marie MD [address] [place] [address] PCP - General Family Medicine 06/19/23 Recreation Director Relationship Specialty Start Date End Date Adryan Marie MD [address] [place] [address] PCP - General Family Medicine 06/19/23 INFORMATION SOURCE (unrecogn ized section and content) DATE CREATED AUTHOR 04/26/2022 Octavio Mayberry [facility] DATE CREATED AUTHOR AUTHOR'S ORGANIZ ATION 09/19/2022 [facility] DATE CREATED AUTHOR AUTHOR'S ORGANIZ ATION 11/28/2023 [facility] FOR RECORDS PERTAINING TO PATIENTS WHO [...] BE BASED ON THE PRIMARY CLINICAL RECORDS. [employer] provides no warranty or guarantee of the accuracy or completeness of information in this document.
--- NOTE | 2023-12-01 15:07 | US_ITS ---
[address] [address] Patient Name: JUANPABLO CHAPARRO MRN: [id number] date: 2000 Sex: F Assigned Patient Location: [facility] Current Patient Location: [facility] Accession/Order Number: [id number] Exam Date: 12/01/2023 15:08 Report Date: 12/01/2023 15:47 At the request of: DEVAN GEORGE Procedure: US OB BPP w non-stress EXAMINATION: US OB BPP w non-stress HISTORY: EXCESSIVE GROWTH O36.63X0 COMPARISON: No relevant comparison available. TECHNIQUE: Ultrasound biophysical profile was performed in the radiology department. non-reactive stress testing was performed by nursing staff in the birthing center. FINDINGS: BREATHING MOVEMENTS: 2.0 GROSS BODY MOVEMENTS: 2.0 TONE: 2.0 QUALITATIVE AMNIOTIC FLUID VOLUME: 2.0 PRESENTATION: CEPHALIC HEART RATE: 135.0 bpm H.B./min AMNIOTIC FLUID VOLUME: 18.2 cm cm GESTATIONAL AGE: 31 weeks 6 days CONCLUSION: Total biophysical profile score: 8.0 Electronically authenticated by: ADRYAN PRESCOTT Date: 12/01/2023 15:47
[2023-12-01 15:33] VITALS: BP 134/87; PULSE 107
== END 2023-12-01 15:55 | disposition home or self-care (01) ==
LOC: US 08:16 → FBC 14:43
PROVIDERS: PCP Family Medicine; Visit Provider Obstetrics & Gynecology
DX: O36.63X0 Maternal care for excessive fetal growth, third trimester, not applicable or unspecified (principal); Z3A.31 31 weeks gestation of pregnancy
CPT/HCPCS: 76818

== ENCOUNTER 2023-12-04 07:15 | Outpatient (OUT) | payer OTHER, SELFPAY ==
--- OUTSIDE RECORDS SUMMARY | 2023-12-04 07:34 | XMS_ITS | CCD ---
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[employer] Name Role Phone NazaninDeonna lozoya Unavailable OSCAR, [...] Facility (3 sources) Sulfacetamide Drug Allergy rash [employer] Other (1 source) Sulfonamides (Antibiotic); Translations: [sulfa drugs] Drug allergy Hyperpyrexia (finding) [facility] (1 source) Sulfonamides (Antibiotic) Drug allergy (disorder) 07-26-20 14 [facility] (3 sources) Sulfonamides (Antibiotic) Drug Intolerance [...] BY MOUTH EVERY MORNING 0 10/06/2023 Active MG-Xmd-RD-Elwin-3 ( Gummies/DHA & FA) 0.4-32.5 MG chewable tablet (3 sources) Start: 06-19-2023 End: 06-18-2024 JO-Hbl-SW-Elwin-3 ( Gummies/DHA & FA) 0.4-32.5 MG chewable tablet Indications: Missed menses Chew 32.5 mg in the morning. 30 tablet 11 06/19/2023 06/18/2024 Active Completed/Discontinued Medications Medication Drug Class(es) Dates Sig (Normalized) Sig (Original) [id number] 200 actuat albuterol 0.09 mg/actuat metered dose [...] / neomycin 3.5 mg/ml / polymyxin b [id number] unt/ml otic suspension (3 sources) Aminoglycoside Antibacterial, Polymyxin-class Antibacterial, Corticosteroid Start: 04-02-2022 Neomycin-Polymyx in-HC [id number] 3 drops left ear Three times a [...] UA Negative Negative - 4(70) +++ mg/dL [facility] Blood, UA Negative Negative - 50 Cedric/mcL [facility] Clarity, UA Clear [facility] re Color, [facility]A Yellow [facility], [facility] Negative Negative - 1999(110) ++++ mg/dL [facility] Interpretation and review of laboratory results Normal [facility] Ketones, UA Negative Negative - 160(16) ++++ mg/dL [facility] Leukocytes, UA Negative Negative - 500+++ Alessandro/mcL [facility] Nitrite, UA Negative Negative - Positive [facility] pH, UA 6.0 5 - 9 [facility] e Protein, UA Negative Negative - 1999(20) ++++ mg/dL [facility] Spec Grav, UA 1.020 1 - 1.03 [facility] Urobilinogen, UA 0.2 0.2 - 12 mg/[facility] WITH AUTO DIFFon BASOPHILS ABSOLUTE AUTO 0.0 [facility] Basophils/100 WBC (Bld) 0.3 % 0.2 - 2.0 % [facility] Eosinophils/100 WBC (Bld) 1.0 % 0.9 - 7.0 % [facility] Erythrocyte distribution width (RBC) [Ratio] 12.5 % 11.0 - 15.0 % [facility] Hematocrit (Bld) [Volume fraction] 35.1 % Low 36.0 - 48.0 % [facility] Hem[facility] (Bld) [Mass/Vol] 11.7 g/dL Low 12.0 - 16.0 g/dL [facility] IMMATURE GRANULOCYTES ABS AUTO 0.08 High [facility] Immature granulocytes/100 WBC (Bld) 0.6 % High 0.0 - 0.5 % [facility] Interpretation and review of laboratory results Abnormal [facility] LYMPHOCYTES ABSOLUTE AUTO 1.6 [facility] Lymphocytes/100 WBC (Bld) 11.9 % Low 20.5 - 60.0 % [facility] MCH (RBC) [Entitic mass] 30.7 pg 26.7 - 34.0 pg [facility] MCHC (RBC) [Mass/Vol] 33.3 g/dL 29.9 - 35.2 g/dL [facility] MCV (RBC) [Entitic vol] 92.1 fL 81.0 - 99.0 fL [facility] MONOCYTES ABSOLUTE AUTO 0.8 [facility] Monocytes/100 WBC (Bld) 5.5 % 1.7 - 12.0 % [facility] NEUTROPHILS ABSOLUTE AUTO 11.1 High [facility] Neutrophils/100 WBC (Bld) 80.7 % High 43.0 - 75.0 % [facility] Platelet mean volume (Bld) [Entitic vol] 10.6 fL 9.5 - 13.5 fL [facility] are [facility] EO # 0.1 [facility] PLT 292 [facility] RBC 3.81 Low [facility] e [facility] WBC 13.8 High [facility]car e [facility] CBC AUTO DIFFon 09-14-2022 BASO # 0.0 103/ul Normal 0.0-0.1 [facility] Comment on above: Performed By: #### B GURPREET, TSH #### [facility] [address] [place] [address] Dr. Reema Mireles Basophils/100 WBC (Bld) 0.6 % Normal 0.2-2.0 [facility] Comment on above: Performed By: #### B GURPREET, TSH #### [facility] [address] [address] [address] Reema Mireles EO # 0.0 103/ul Normal 0.0-0.7 [facility] Comment on above: Performed By: #### B GURPREET, TSH #### [facility] [address] [place] [address] Dr. Reema Mireles Eosinophils/100 WBC (Bld) 0.6 % Critically low 0.9-7.0 [facility] Comment on above: Performed By: #### B GURPREET, TSH #### [facility] [address] [place] [address] Dr. Reema Mireles Erythrocyte distribution width (RBC) [Ratio] 11.9 % Normal 11.0-15.0 [facility] Comment on above: Performed By: #### B GURPREET, TSH #### [facility] [address] [place] [address] Dr. Reema Mireles Hematocrit (Bld) [Volume fraction] 37.8 % Normal 36.0-48.0 [facility] Comment on above: Performed By: #### B GURPREET, TSH #### [facility] [address] [place] [address] Dr. Reema Mireles Hemoglobin (Bld) [Mass/Vol] 13.5 g/dL Normal 12.0-16.0 [facility] Comment on above: Performed By: #### B GURPREET, TSH #### [facility] [address] [place] [address] Dr. Reema Mireles IG # 0.01 10e3/ul Normal 0.00-0.03 [facility] Comment on above: Performed By: #### B GURPREET, TSH #### [facility] [address] [place] [address] Dr. Reema Mireles IG % 0.2 % Normal 0.0-0.5 [facility] Comment on above: Performed By: #### B GURPREET, TSH #### [facility] [address] [place] [address] Dr. Reema Mireles LYMPH # 1.6 103/ul Normal 1.2-3.8 [facility] Comment on above: Performed By: #### B GURPREET, TSH #### [facility] [address] [place] [address] Dr. Reema Mireles Lymphocytes/100 WBC (Bld) 25.5 % Normal 20.5-60.0 [facility] Comment on above: Performed By: #### B GURPREET, TSH #### [facility] [address] [place] [address] Dr. Reema Mireles MANUAL DIFF REQ NO Normal [facility] Comment on above: Performed By: #### B MP, TSH #### [facility] [address] [place] [address] Dr. Reema Mireles MCH (RBC) [Entitic mass] 30.9 pg Normal 26.7-34.0 [facility] Comment on above: Performed By: #### B MP, TSH #### [facility] [address] [place] [address] Dr. Reema Mireles MCHC (RBC) [Mass/Vol] 35.7 g/dL Critically high 29.9-35.2 [facility] Comment on above: Performed By: #### B MP, TSH #### [facility] [address] [place] [address] Dr. Reema Mireles MCV (RBC) [Entitic vol] 86.5 fL Normal 81.0-99.0 [facility] Comment on above: Performed By: #### B MP, TSH #### [facility] [address] [place] [address] Dr. Reema Mireles MONO # 0.5 103/ul Normal 0.3-0.8 [facility] Comment on above: Performed By: #### B MP, TSH #### [facility] [address] [place] [address] Dr. Reema Mireles Monocytes/100 WBC (Bld) 8.5 % Normal 1.7-12.0 [facility] Comment on above: Performed By: #### B MP, TSH #### [facility] [address] [place] [address] Dr. Reema Mireles NEUT # 4.1 103/ul Normal 1.4-6.5 [facility] Comment on above: Performed By: #### B MP, TSH #### [facility] [address] [place] [address] Dr. Reema Mireles Neutrophils/100 WBC (Bld) 64.6 % Normal 43.0-75.0 [facility] Comment on above: Performed By: #### B MP, TSH #### [facility] [address] [place] [address] Dr. Reema Mireles Platelet mean volume (Bld) [Entitic vol] 9.9 fL Normal 9.5-13.5 [facility] Comment on above: Performed By: #### B MP, TSH #### [facility] [address] [place] [address] Dr. Reema Mireles PLT 403 103/ul Normal 150-450 [facility] Comment on above: Performed By: #### B MP, TSH #### [facility] [address] [place] [address] Dr. Reema Mireles RBC 4.37 106/ul Normal 4.20-5.40 [facility] Comment on above: Performed By: #### B MP, TSH #### [facility] [address] [place] [address] Dr. Reema Mireles WBC 6.3 103/ul Normal 4.0-11.0 [facility] Comment on above: Performed By: #### B MP, TSH #### [facility] [address] [place] [address] Dr. Reema Mireles PROF 14(COMP METB)on 022 Albumin [Mass/Vol] 4.3 g/dL Normal 3.4-5.0 [facility] Comment on above: Performed By: #### B MP, TSH #### [facility] [address] [place] [address] Dr. Reema Mireles Albumin/Globulin [Mass ratio] 1.2 {ratio} Normal [facility] Comment on above: Performed By: #### B MP, TSH #### [facility] [address] [place] [address] Dr. Reema Mireles ALP [Catalytic activity/Vol] 79 U/L Normal 46-116 [facility] Comment on above: Performed By: #### B MP, TSH #### [facility] [address] [place] [address] Dr. Reema Mireles ALT [Catalytic activity/Vol] 31 U/L Normal 14-59 [facility] Comment on above: Performed By: #### B MP, TSH #### [facility] [address] [address] [address] Reema Mireles Anion gap [Moles/Vol] 12.1 mmol/L Normal [facility] Comment on above: Performed By: #### B MP, TSH #### [facility] [address] [address] [address] Reema Mireles AST [Catalytic activity/Vol] 17 U/L Normal 15-37 [facility] Comment on above: Performed By: #### B MP, TSH #### [facility] [address] [address] [address] Reema Mireles Bilirubin [Mass/Vol] 0.4 mg/dL Normal 0.2-1.0 [facility] Comment on above: Performed By: #### B MP, TSH #### [facility] [address] [place] [address] Dr. Reema Mireles Calcium [Mass/Vol] 8.9 mg/dL Normal 8.5-10.1 [facility] Comment on above: Performed By: #### B MP, TSH #### [facility] [address] [place] [address] Dr. Reema Mireles Chloride [Moles/Vol] 98 mmol/L Normal 98-107 [facility] Comment on above: Performed By: #### B MP, TSH #### [facility] [address] [place] [address] Dr. Reema Mireles CO2 [Moles/Vol] 27.0 mmol/L Normal 21.0-32.0 [facility] Comment on above: Performed By: #### B MP, TSH #### [facility] [address] [place] [address] Dr. Reema Mirelse Creatinine [Mass/Vol] 0.65 mg/dL Normal 0.55-1.02 [facility] Comment on above: Performed By: #### B MP, TSH #### [facility] [address] [place] [address] Dr. Reema Mireles EGFR-AF [place] >60 Normal >=60 [facility] Comment on above: Performed By: #### B MP, TSH #### [facility] [address] [address] [address] Reema Mireles EGFR-NON AF [place] >60 Normal >=60 [facility] Comment on above: Performed By: #### B MP, TSH #### [facility] [address] [address] [address] Reema Mireles Globulin (S) [Mass/Vol] 3.5 g/dL Normal [facility] Comment on above: Performed By: #### B MP, TSH #### [facility] [address] [address] [address] Reema Mireles Glucose [Mass/Vol] 106 mg/dL Normal 74-106 [facility] Comment on above: Performed By: #### B MP, TSH #### [facility] [address] [place] [address] Dr. Reema Mireles Potassium [Moles/Vol] 3.1 mmol/L Critically low 3.5-5.1 [facility] Comment on above: Performed By: #### B MP, TSH #### [facility] [address] [place] [address] Dr. eRema Mireles Protein [Mass/Vol] 7.8 g/dL Normal 6.4-8.2 [facility] Comment on above: Performed By: #### B MP, TSH #### [facility] [address] [place] [address] Dr. Reema Mireles Sodium [Moles/Vol] 134 mmol/L Critically low 136-145 [facility] Comment on above: Performed By: #### B MP, TSH #### [facility] [address] [place] [address] Dr. Reema Mireles Urea nitrogen [Mass/Vol] 6.0 mg/dL Critically low 7.0-18.0 [facility] Comment on above: Performed By: #### B MP, TSH #### [facility] [address] [place] [address] Dr. Reema Mireles Urea nitrogen/Creatinine [Mass ratio] 9.2 mg/mg Normal [facility] Comment on above: Performed By: #### B MP, TSH #### [facility] [address] [place] [address] Dr. Reema Mireles ACETONE SERUMon 08-11-2022 ACETONE Negative Normal NEGATIVE [facility] Comment on above: Performed By: #### B MP, TSH #### [facility] [address] [place] [address] Dr. Reema Mireles CBC AUTO DIFFon 08-11-2022 BASO # 0.1 103/ul Normal 0.0-0.1 [facility] Comment on above: Performed By: #### B MP, TSH #### [facility] [address] [place] [address] Dr. Reema Mireles Basophils/100 WBC (Bld) 0.5 % Normal 0.2-2.0 [facility] Comment on above: Performed By: #### B MP, TSH #### [facility] [address] [place] [address] Dr. Reema Mireles EO # 0.1 103/ul Normal 0.0-0.7 [facility] Comment on above: Performed By: #### B MP, TSH #### [facility] [address] [place] [address] Dr. Reema Mireles Eosinophils/100 WBC (Bld) 0.7 % Critically low 0.9-7.0 [facility] Comment on above: Performed By: #### B MP, TSH #### [facility] [address] [place] [address] Dr. Reema Mireles Erythrocyte distribution width (RBC) [Ratio] 11.7 % Normal 11.0-15.0 [facility] Comment on above: Performed By: #### B MP, TSH #### [facility] [address] [place] [address] Dr. Reema Mireles Hematocrit (Bld) [Volume fraction] 37.6 % Normal 36.0-48.0 [facility] Comment on above: Performed By: #### B MP, TSH #### [facility] [address] [place] [address] Dr. Reema Mireles Hemoglobin (Bld) [Mass/Vol] 13.1 g/dL Normal 12.0-16.0 [facility] Comment on above: Performed By: #### B MP, TSH #### [facility] [address] [place] [address] Dr. Reema Mireles IG # 0.02 10e3/ul Normal 0.00-0.03 [facility] Comment on above: Performed By: #### B MP, TSH #### [facility] [address] [place] [address] Dr. Reema Mireles IG % 0.2 % Normal 0.0-0.5 [facility] Comment on above: Performed By: #### B MP, TSH #### [facility] [address] [place] [address] Dr. Reema Mireles LYMPH # 2.7 103/ul Normal 1.2-3.8 [facility] Comment on above: Performed By: #### B MP, TSH #### [facility] [address] [place] [address] Dr. Reema Mireles Lymphocytes/100 WBC (Bld) 28.5 % Normal 20.5-60.0 [facility] Comment on above: Performed By: #### B MP, TSH #### [facility] [address] [place] [address] Dr. Reema Mireles MANUAL DIFF REQ NO Normal [facility] Comment on above: Performed By: #### B MP, TSH #### [facility] [address] [place] [address] Dr. Reema Mireles MCH (RBC) [Entitic mass] 30.3 pg Normal 26.7-34.0 [facility] Comment on above: Performed By: #### B MP, TSH #### [facility] [address] [place] [address] Dr. Reema Mireles MCHC (RBC) [Mass/Vol] 34.8 g/dL Normal 29.9-35.2 [facility] Comment on above: Performed By: #### B MP, TSH #### [facility] [address] [place] [address] Dr. Reema Mireles MCV (RBC) [Entitic vol] 87.0 fL Normal 81.0-99.0 [facility] Comment on above: Performed By: #### B MP, TSH #### [facility] [address] [place] [address] Dr. Reema Mireles MONO # 0.8 103/ul Normal 0.3-0.8 [facility] Comment on above: Performed By: #### B MP, TSH #### [facility] [address] [place] [address] Dr. Reema Mireles Monocytes/100 WBC (Bld) 8.2 % Normal 1.7-12.0 [facility] Comment on above: Performed By: #### B MP, TSH #### [facility] [address] [place] [address] Dr. Reema Mireles NEUT # 5.9 103/ul Normal 1.4-6.5 [facility] Comment on above: Performed By: #### B MP, TSH #### [facility] [address] [place] [address] Dr. Reema Mireles Neutrophils/100 WBC (Bld) 61.9 % Normal 43.0-75.0 [facility] Comment on above: Performed By: #### B MP, TSH #### [facility] [address] [place] [address] Dr. Reema Mireels Platelet mean volume (Bld) [Entitic vol] 10.2 fL Normal 9.5-13.5 [facility] Comment on above: Performed By: #### B MP, TSH #### [facility] [address] [place] [address] Dr. Reema Mireles PLT 382 103/ul Normal 150-450 [facility] Comment on above: Performed By: #### B MP, TSH #### [facility] [address] [place] [address] Dr. Reema Mireles RBC 4.32 106/ul Normal 4.20-5.40 [facility] Comment on above: Performed By: #### B MP, TSH #### [facility] [address] [place] [address] Dr. Reema Mireles WBC 9.6 103/ul Normal 4.0-11.0 [facility] Comment on above: Performed By: #### B MP, TSH #### [facility] [address] [place] [address] Dr. Reema Mireles CRPon 08-11-2022 CRP [Mass/Vol] mg/L Normal <=1.0 [facility] Comment on above: Performed By: #### B MP, TSH #### [facility] [address] [place] [address] Dr. Reema Mireles ER URINE PROFILEon Bilirubin Ql (U) Negative Normal NEGATIVE [facility] Comment on above: Performed By: #### B MP, TSH #### [facility] [address] [place] [address] Dr. Reema Mireles Clarity (U) CLEAR Normal CLEAR [facility] Comment on above: Performed By: #### B MP, TSH #### [facility] [address] [place] [address] Dr. Reema Mireles Color (U) LT. YELLOW Normal YELLOW [facility] Comment on above: Performed By: #### B MP, TSH #### [facility] [address] [place] [address] Dr. Reema ELIZALDE A micrscopic examination will be performed if indicated. Normal [facility] Comment on above: Performed By: #### B MP, TSH #### [facility] [address] [place] [address] Dr. Reema Mireles Glucose Ql (U) Negative Normal NEGATIVE [facility] Comment on above: Performed By: #### B MP, TSH #### [facility] [address] [place] [address] Dr. Reema Mireles Hemoglobin Ql (U) Negative Normal NEGATIVE [facility] Comment on above: Performed By: #### B MP, TSH #### [facility] [address] [place] [address] Dr. Reema Mireles Ketones Ql (U) Negative Normal NEGATIVE [facility] Comment on above: Performed By: #### B MP, TSH #### [facility] [address] [place] [address] Dr. Reema Mireles LEUKOCYTES Negative Normal NEGATIVE [facility] Comment on above: Performed By: #### B MP, TSH #### [facility] [address] [place] [address] Dr. Reema Mireles Nitrite Ql (U) Negative Normal NEGATIVE [facility] Comment on above: Performed By: #### B MP, TSH #### [facility] [address] [address] [address] Reema Mireles pH (U) 5.5 [pH] Normal 5-9 [facility] Comment on above: Performed By: #### B MP, TSH #### [facility] [address] [place] [address] Dr. Reema Mireles SPEC GRAVITY <=1.005 Abnormal 1.005-<=1.025 [facility] Comment on above: Performed By: #### B MP, TSH #### [facility] [address] [place] [address] Dr. Reema Mireles UA PROTEIN Negative Normal NEGATIVE/ TRACE [facility] Comment on above: Performed By: #### B MP, TSH #### [facility] [address] [place] [address] Dr. Reema Mireles UR MICRO IND NOT INDICATED Normal [facility] Comment on above: Performed By: #### B MP, TSH #### [facility] [address] [place] [address] Dr. Reema Mireles Urobilinogen Qn (U) 0.2 {Renny'U}/dL Normal 0.2 - 1. 0 [facility] Comment on above: Performed By: #### B MP, TSH #### [facility] [address] [place] [address] Dr. Reema Mireles LIPASEon 08-11-2022 Lipase [Catalytic activity/Vol] 71.0 U/L Critically low 73.0-393.0 [facility] Comment on above: Performed By: #### B MP, TSH #### [facility] [address] [place] [address] Dr. Reema Mireles URon 08-11-2022 , QUAL Negative Normal NEGATIVE [facility] Comment on above: Performed By: #### C VDTBH #### [facility] [address] [address] [address] Reema Mireles PROF 14(COMP METB)on 08-11- 022 Albumin [Mass/Vol] 4.3 g/dL Normal 3.4-5.0 [facility] Comment on above: Performed By: #### B MP, TSH #### [facility] [address] [address] [address] Reema Mireles Albumin/Globulin [Mass ratio] 1.2 {ratio} Normal [facility] Comment on above: Performed By: #### B MP, TSH #### [facility] [address] [place] [address] Dr. Reema Mireles ALP [Catalytic activity/Vol] 70 U/L Normal 46-116 [facility] Comment on above: Performed By: #### B GURPREET, TSH #### [facility] [address] [place] [address] Dr. Reema Mireles ALT [Catalytic activity/Vol] 16 U/L Normal 14-59 [facility] Comment on above: Performed By: #### B MP, TSH #### [facility] [address] [place] [address] Dr. Reema Mireles Anion gap [Moles/Vol] 10.5 mmol/L Normal [facility] Comment on above: Performed By: #### B MP, TSH #### [facility] [address] [address] [address] Reema Mireles AST [Catalytic activity/Vol] 8 U/L Critically low 15-37 [facility] Comment on above: Performed By: #### B MP, TSH #### [facility] [address] [address] [address] Reema Mireles Bilirubin [Mass/Vol] 0.3 mg/dL Normal 0.2-1.0 [facility] Comment on above: Performed By: #### B MP, TSH #### [facility] [address] [place] [address] Dr. Reema Mireles Calcium [Mass/Vol] 9.0 mg/dL Normal 8.5-10.1 [facility] Comment on above: Performed By: #### B MP, TSH #### [facility] [address] [place] [address] Dr. Reema Mireles Chloride [Moles/Vol] 104 mmol/L Normal 98-107 [facility] Comment on above: Performed By: #### B MP, TSH #### [facility] [address] [place] [address] Dr. Reema Mireles CO2 [Moles/Vol] 26.5 mmol/L Normal 21.0-32.0 [facility] Comment on above: Performed By: #### B MP, TSH #### [facility] [address] [place] [address] Dr. Reema Mireles Creatinine [Mass/Vol] 0.79 mg/dL Normal 0.55-1.02 [facility] Comment on above: Performed By: #### B MP, TSH #### [facility] [address] [place] [address] Dr. Reema Mireles EGFR-AF [place] >60 Normal >=60 [facility] Comment on above: Performed By: #### B GURPREET, TSH #### [facility] [address] [place] [address] Dr. Reema Mireles EGFR-NON AF [place] >60 Normal >=60 [facility] Comment on above: Performed By: #### B MP, TSH #### [facility] [address] [place] [address] Dr. Reema Mireles Globulin (S) [Mass/Vol] 3.5 g/dL Normal [facility] Comment on above: Performed By: #### B MP, TSH #### [facility] [address] [place] [address] Dr. Reema Mireles Glucose [Mass/Vol] 106 mg/dL Normal 74-106 [facility] Comment on above: Performed By: #### B MP, TSH #### [facility] [address] [place] [address] Dr. Reema Mireles Potassium [Moles/Vol] 3.0 mmol/L Critically low 3.5-5.1 [facility] Comment on above: Performed By: #### B MP, TSH #### [facility] [address] [place] [address] Dr. Reema Mireles Protein [Mass/Vol] 7.8 g/dL Normal 6.4-8.2 [facility] Comment on above: Performed By: #### B MP, TSH #### [facility] [address] [place] [address] Dr. Reema Mireles Sodium [Moles/Vol] 138 mmol/L Normal 136-145 [facility] Comment on above: Performed By: #### B MP, TSH #### [facility] [address] [place] [address] Dr. Reema Mireles Urea nitrogen [Mass/Vol] 8.0 mg/dL Normal 7.0-18.0 [facility] Comment on above: Performed By: #### B MP, TSH #### [facility] [address] [place] [address] Dr. Reema Mireles Urea nitrogen/Creatinine [Mass ratio] 10.1 mg/mg Normal [facility] Comment on above: Performed By: #### B MP, TSH #### [facility] [address] [place] [address] Dr. Reema Mireles PROTIMEon 08-11-2022 INR Coag (PPP) [Relative time] 1.00 {INR} Normal [facility] Comment on above: Performed By: #### P T, PTT #### [facility] [address] [place] [address] Dr. Reema Mireles INR GUIDELINES SEE BELOW Normal [facility] Comment on above: Result Comment: FELICIANO RED INR: 2.0 - 3.0 CONDITIONS NOT LISTED BELOW 2.5 - 3.5 FOR PROSTHETIC HEART VALVE REPLACEMENT 2.5 - 3.5 RECURRENT THROMBOSIS Performed By: #### P T, PTT #### [facility] [address] [place] [address] Dr. Reema Mireles PT Coag (PPP) [Time] 10.8 s Normal 9.0-11.6 [facility] Comment on above: Performed By: #### P T, PTT #### [facility] [address] [place] [address] Dr. Reema Mireles PTTon 08-11-2022 aPTT Coag (Bld) [Time] 30.8 s Normal 22.3-36.2 [facility] Comment on above: Performed By: #### P T, PTT #### [facility] [address] [place] [address] Dr. Reema Mireles [facility] SED [facility]ATE 10 mm/hr Normal <=20 [facility] Comment on above: Performed By: #### B MP, TSH #### [facility] [address] [place] [address] Dr. Reema Mireles TSHon 08-11-2022 TSH 3.313 uIU/mL Normal 0.358-3.740 [facility] Comment on above: Performed By: #### B MP, TSH #### [facility] [address] [place] [address] Dr. Reema Mireles Discharge Instructionson Discharge Instructions [id number] #1.00CD:127 Normal [facility] Comment on above: Other Comment: wrong patient STOOL CULTUREon 04-20-2022 Campylobacter Culture Final report Normal [facility] Comment on above: Performed By: #### B MP, TSH #### [facility] [address] [place] [address] Dr. Reema Mireles E coli Shiga Toxin EIA Negative Normal Negative [facility] Comment on above: Performed By: #### B MP, TSH #### [facility] [address] [place] [address] Dr. Reema Mireles Result 1 Comment Normal [facility] Comment on above: Result Comment: No S almonella or Shigella recovered. Performed By: #### B MP, TSH #### [facility] [address] [place] [address] Dr. Reema Mireles Result Comment: No C ampylobacter species isolated. Salmonella/Shigella Screen Final report Normal [facility] Comment on above: Performed By: #### B MP, TSH #### [facility] [address] [place] [address] Dr. Reema Mireles Coding Summary.on 04-14-2022 Coding Summary. CD:[id number] Gh0bWw+PGhlYWQ+PE1FV CYaM62szNBxxB0KI6sUE V6XMNGLSITYXN4GBX8bq TU8VAtlU9PirvHd TsumrUEaYY17ZQc1DSK4 wSvtEIhkkX8hoABjI5w2 RgFaYW26hX14YAbzCEFp KdI7TuRkqwawoIOl W8mmCySpiYFxXns+PHRh YmxlIHdpZHRoPScxMDAl LbHzoQbqZD0iBx8pOLFi LWNvbGxhcHNlOiBj c3feKUYsWHteFS1sdOhh Y4UhpQQ4FVBxz4p5Mz98 dHI+HCXvSUO2zDloEGou r584SlXxq6rzVFJ5 jERyGAndPSL1H95sd7F4 ROKwKGVkTMS6kXG1nJ8b fRxvrwtqZ2RakBVpNsO8 QSY4vHSanJ0mgWfc pwqgjW5rSxy+P37JZY7K IAJIQK1VKnd4A2GvTdjv dHI+YA51JZCwRI32lYYm kNOli9uvzRo2LcWx VAJyTLV1lKonSTolv0Ck PZQsW12crVLjw7M8VONd sNiiqYPiBkBbvAV6lL0r HGmrlzqyr6pnnago Bkczl0ghqh37mK25Z30i VPpyOZGfJTU1BPQmGMKx sEkyyh3edW8dYe5+IDxj t8jxs4xlxPp5RmXp FCVljpIsmVikZGL1o6Rt Tc71T0MqiXfzs4UyStl9 gk84aHOgw7O8uBQ0KEne SEFoyY5fAWqvEoN6 IFZoHxVorK18xOYwUFgz Bb5nhPoowCbuRS9kJYMx icqnBNUzlS0tVKCyuFNa oRafYD9pKFMunmwu g536JmRuVBN5CLEqxJBz C1FukS9xLcZeWCXpDPDm Z0CctNNuZWlfT773LCkv IlR0VPFlqkXaM0Ia ZJNsqPmqQsW8t1X4Yh4K e4QtjqyjDOW1JNflMYC9 WvO5JgGkAoW0C1GaXbm7 XLGxuUzfYD4mL6Al ETJwxcuzifyrsKH7IDPq AYMebQ70eRYpDPjsFq6s p4H0s315TNBlQGXavU84 Vu0syKztBLUedPTF mH7vlhvlo4dmdwejBbLi BQWeSNh0KWj0SAEopAse OrZtMSM7RbX0XMS4lXCi lH2krPeqkyyzyB4h Oyc+R25zeM0tMPE6QTA8 xhtgCVWvctFpHN07KH27 S1PlVggvbGTkvIR+PGRp pvSuuQgnYD2vXxJn d9enq5GcMPjyW5ShEZXd QHvgBwz0FBVdOTG6eOW9 rL3fGIHnJRtii2G1iST1 W3LsyoFvtt7us6tu NVKcOPxcV35iuGSwp9N5 PSUznWN6DMLgoHznRvIf aU76Ial+KSRhvObxf3Jv Ptuwq0kqn3lblJv8 IjMwJSIgdmFsaWduPSJ0 t2QxHn91P94iZSwlMVJn CUPbHMZrPHDoyAeekw7h kI8zTu5+PGNvbCB3 kXD4vH5oOOCcWkZ5WOkg Z198LoCtrSZxVzkci9vr d5qxcJi2PkLtLNEnskHv oAciXIF7j2HeVk74 S71oRQewOFZxPTSxVURt RWZfiOlhqw4jrQ6tJf5+ UR9lk6rfau63wN93eFF+ XYJkZYC0bMamCHya RPXrhZ8qELvgHxZ9NFWa TgWxzE13sGApWKhyWb3p wUuhzWiiAG5vRYFrpdew o201UwTky4icPWGw zRJqCXfrABL9L36gc0E9 GKGqOAVvHSE3gUW7uF6d bGlnbjogbGVmdDsgdmVy uMkfTBsdKSpgL200 IHRvcDsnPlBhdGllbnQg VlFuHNx5G3EmKot9JVDr yJruLN5jkAPhPJcxFo6m wCbgbYgxHL3oRITn bhrjo063LjSuz0ruJKKf tXWoOYedCQO4T30gc0A2 IDLgFMItUNB5eLJ8zN5v bGlnbjogbGVmdDsg qaLgvQexQNgwGBfaR044 IHRvcDsnPkJpcnRoIERh vJS2LO80CH42mTHpx4O5 oPR6D0VwLJOmgyzo vbmikWD4CTQlUPQgmP90 Ou3pdSzgBo4bTFAsKIY7 XHZwlQVhQ4SjlR0cSrBe IIYdMQCmE8MvzOYq SBfqV360KSerLzB3RLUf vxSvR6EkDHKloZfwQbU3 q7G4Si8MH7Y2JR28CE52 uFVsv4B3wGQ4B6Ox ULUwwyouufzvcWH4XJCw BYGzyC34Bf4ioOmjIw0w NFDnNTS5PTUvoENaA4Tj bS4oDxJgXMSkLWFq U5TzpBRvMGhyC625YCmh IsP7NBUtrlHzX8LfXRUb oHlpDuC9b9L8Ew1BQMg9 VF13JC26wJUdn5A1 vTR8N5JqUOQrkyampnub wUN1WQEcHDXuyG79Ha8g tNuiGl0vVJWcCMX3YMFa sWReJ3BkqR7qKkGc TVHoIRRvU1JfhWLnXSfz S297ZIcwAyU4TQWxqvQn T0EeZVOvsZvdRqJ4g2L7 Fl1TURClDG37EOH3 uER1GI73NY88N1VwSyjd dGFibGU+PHRhYmxlIHdp ZHRoPScxMDAlJyBzdHls TT9gYl4iFNEzIERb qLnswWQsYlDpm4mnWDGs UZfzFT6jwKadV6VuqKG9 WKWml1f3Lk49X43cA3Cq dXA+TZOpnGT9bAM9 rL8zAbYoYwO2BAksS396 UmHlrDJoIgatq4wld7kq fRy5BeU0QBHfmuNtuAlc AWS7b4XjUn42A96x IHdpZHRoPSIxNSUiIHZh gEicrb7itA0nFv2+PGNv aQB3zHY6dW5dVoVqEhW2 QSwoU378SdFtpIAu Lotjb0ygj7zqjLp3OmSb FROgbxNhsGmwYEO2q6Qe Or30B0CznDnej4BpEsw1 un00lDLug7Y7lFT1 B5VnZACdjovavMKkfExf PI8fTPThkqrfKDYdsC6e OXMhG5r8OtHyNuP5AKdh W6TtxlY3MSJppVJb YTwlKSQ1A90qs9R2GVVx ADEnFRI3kQU2jQ7xnDhi bjogbGVmdDsgdmVydGlj SHbbKLrbS517QKCr hIadLWTrsF8lKUVepPOm iIhwHN4jDDEuazdlTxkT GNIFB52FB1pZGGPPGSPM XHN3N5XsRaa7EXUc mJgbLB2dvEEtATluGr5d iDdhyBseLJ6iZFOyquyy AWHkvL6zTNFybUMbfOht XG6oCZOkmugap272 MnFrVTR2CNQvuPFgD0Jm nI4qJkZfOHOtLSDjL1Mn aBRpEGhcN424YBsmGeH6 CYTcvzHrN6GeUPTn pGotLnX8u7D2Ed2eDh3c IX0oOSPqUD39YZ79aNSd m7Y8gXC2Q7FcXHEnvvpy wbehaBM5XTSbMNAi wA04kBSbCUsyGt6uf7U2 w355VTSwBXRfwG36Dn3t nAlkVSGjdBKSyJ9hwlts f1jisyeiQdFcPTUm ZGp5NPy2FZUsdXkmDpYm PCO0CqW8FRR9kRLisY6o dGavzcgcnS1fSlo+MjAg FREszpT5T4CnOnd4 ANUvwZmmGH2brRMcFAko Vw0hmCtqvLlwXD1iVNSi zrgyFCKsoA3cDYStxSCo fJboCY8eDEYtxurx a354BtXgRGF7COSffXXb G6NwdR2uNcUnXDIlDDTm Z2UfpVUmFEbpX827DHqb JvW4UABcysRbG3Dg BPWfiXjlUzA9f2S8Cc2N GQ9dpYR7V8HyDpd9CTOn mQgkQZ6ndLGlNFcbCu3j qTkewMccOJ3oZRGl gcwpYVHodO4dYYOwvLZu dFbsCQ2qXSZevkyza718 VhZbZND1JUGozFEkG5Mz aB9iKkKqTUKlVSWb W4MeaZWzCRxzN499YKst WdF4EQZfqfMuK2WtKBPk dRxvEbV3k9B2Db9JgRSg S7PmM4n3D8RvRnaf dHI+MZ81DXMaGP63dTCr cMKue3lpyZo4IgYoVZKc PNP2nPvtCNesu9KwBGFi V52csUAna8U9SMFu yMxurIYiKeWhzSK9mX2y CVltqbdbb7fkvhagMkhf y6ugqf23iX54Z08sZPfz ZHRoPSIzMCUiIHZh pRulua2thW6bAu6+PGNv rQI1lFE7nS7aOgDeNnX8 ZZdeS611NfUfrNUkXpze p1skn6ullXg8KfTu XLUxdjQdbPeeJQH2c5Iy Er91Y74qTGiqJXWmMVIn ZULzMNLfkQeyqp4jnX0q Ii8+CZ1tm6zdmo02 yR06gDC+WNCrMLU6cRyu FNpzPSEnwY5fDMzaQdY1 HMOaAdEwhM23aGWwJGfw Qd0mtGwzyNdlYS1t FQDrjokoz512TxLrg3gd UIEyvOTyNCibFJF9S50f g2Y7QXCcWIDvIDI9dJW0 qO4wqZekgalboVAj dDsgdmVydGljYWwtYWxp A638TRVajFokZsCmoGJg G3knmqPVZR8lTyqisBW+ CHJvJID3zBmtVCcl BCDbvU0vKQMnE5r5GaEs SaK2SOpbG0IgmpS0NTWy vLXvDDTokFAQuG6mzutl u2natwsbKsGzWBOh XEw8BJj4XOBwiLmwXmQl YCE9YaQ7HZK0yYSqvF5w pYewhrausQ0cRsu+RklO OjwvdGQ+PHRkIHN0 uIrcNXbvOAWykU6bKPCm Q5d2MuTzWoV4QWarU2Yl tmA9PSXmyIFoTHUwgJJT kY9hpzhmi3fqlaqs KeLvFCJtAPw7MHc3VUMf eApvQdEqFEV5OnN4STS1 tSMkuH4zyUntbtzmiB0j Oyc+TVJOOjwvdGQ+ MADdLRY5wHrdDCmyXLIr fA6jMWTxC1a7MrTvIaS6 TJhhC8ZsvmC7OPIltQIj ODQulLCKoZ8vaojj j3dxeutjTlIxXJHsUSt6 QOj9NHBekUgjLkFsQRF0 OlH3FTY0vSMdhT4imUvb trrjsU2vMah+UGF5 CQR8ZO14XV56W6HhHlzq dGFibGU+PHRhYmxlIHdp ZHRoPScxMDAlJyBzdHls IH0eAm4zGUWmHBLo bGxh (more content not included)... Normal [facility] CBC AUTO DIFFon 04-13-2022 BASO # 0.1 103/ul Normal 0.0-0.1 [facility] Comment on above: Performed By: #### C VDTBH #### [facility] [address] [place] [address] Dr. Reema Mireles Basophils/100 WBC (Bld) 0.6 % Normal 0.2-2.0 [facility] Comment on above: Performed By: #### C VDTBH #### [facility] [address] [address] [address] Reema Mireles EO # 0.0 103/ul Normal 0.0-0.7 [facility] Comment on above: Performed By: #### C VDTBH #### [facility] [address] [place] [address] Dr. Reema Mireles Eosinophils/100 WBC (Bld) 0.2 % Critically low 0.9-7.0 [facility] Comment on above: Performed By: #### C VDTBH #### [facility] [address] [address] [address] Reema Mireles Erythrocyte distribution width (RBC) [Ratio] 11.4 % Normal 11.0-15.0 [facility] Comment on above: Performed By: #### C VDTBH #### [facility] [address] [place] [address] Dr. Reema Mireles Hematocrit (Bld) [Volume fraction] 38.3 % Normal 36.0-48.0 [facility] Comment on above: Performed By: #### C VDTBH #### [facility] [address] [place] [address] Dr. Reema Mireles Hemoglobin (Bld) [Mass/Vol] 13.4 g/dL Normal 12.0-16.0 [facility] Comment on above: Performed By: #### C VDTBH #### [facility] [address] [place] [address] Dr. Reema Mireles IG # 0.01 10e3/ul Normal 0.00-0.03 [facility] Comment on above: Performed By: #### C VDTBH #### [facility] [address] [place] [address] Dr. Reema Mireles IG % 0.1 % Normal 0.0-0.5 [facility] Comment on above: Performed By: #### C VDTBH #### [facility] [address] [place] [address] Dr. Reema Mireles LYMPH # 1.8 103/ul Normal 1.2-3.8 [facility] Comment on above: Performed By: #### C VDTBH #### [facility] [address] [place] [address] Dr. Reema Mireles Lymphocytes/100 WBC (Bld) 22.2 % Normal 20.5-60.0 [facility] Comment on above: Performed By: #### C VDTBH #### [facility] [address] [place] [address] Dr. Reema Mireles MANUAL DIFF REQ NO Normal [facility] Comment on above: Performed By: #### C VDTBH #### [facility] [address] [place] [address] Dr. Reema Mireles MCH (RBC) [Entitic mass] 30.6 pg Normal 26.7-34.0 [facility] Comment on above: Performed By: #### C VDTBH #### [facility] [address] [place] [address] Dr. Reema Mireles MCHC (RBC) [Mass/Vol] 35.0 g/dL Normal 29.9-35.2 [facility] Comment on above: Performed By: #### C VDTBH #### [facility] [address] [place] [address] Dr. Reema Mireles MCV (RBC) [Entitic vol] 87.4 fL Normal 81.0-99.0 [facility] Comment on above: Performed By: #### C VDTBH #### [facility] [address] [place] [address] Dr. Reema Mireles MONO # 0.7 103/ul Normal 0.3-0.8 [facility] Comment on above: Performed By: #### C VDTBH #### [facility] [address] [place] [address] Dr. Reema Mireles Monocytes/100 WBC (Bld) 8.2 % Normal 1.7-12.0 [facility] Comment on above: Performed By: #### C VDTBH #### [facility] [address] [place] [address] Dr. Reema Mireles NEUT # 5.5 103/ul Normal 1.4-6.5 [facility] Comment on above: Performed By: #### C VDTBH #### [facility] [address] [place] [address] Dr. Reema Mireles Neutrophils/100 WBC (Bld) 68.7 % Normal 43.0-75.0 [facility] Comment on above: Performed By: #### C VDTBH #### [facility] [address] [place] [address] Dr. Reema Mireles Platelet mean volume (Bld) [Entitic vol] 10.1 fL Normal 9.5-13.5 [facility] Comment on above: Performed By: #### C VDTBH #### [facility] [address] [place] [address] Dr. Reema Mireles PLT 404 103/ul Normal 150-450 [facility] Comment on above: Performed By: #### C VDTBH #### [facility] [address] [place] [address] Dr. Reema Mireles RBC 4.38 106/ul Normal 4.20-5.40 [facility] Comment on above: Performed By: #### C VDTBH #### [facility] [address] [place], [place] [address] Dr. Reema Mireles WBC 8.0 103/ul Normal 4.0-11.0 [facility] Comment on above: Performed By: #### C VDTBH #### [facility] [address] [place], [place] [address] HEAD WO CONon [...] AURELIA CARLOS Date: 2022-04-13 16:29 Normal [facility] Discharge Instructionson Discharge Instructions [id number] #1.00CD:127 Normal [facility] ED Note-Physicianon 04-13-20 ED Note-Physician Basic Information Time Seen: Lata Hardy M.D. 04/12/2022 19:56 Chief Complaint Pt. presents to the ed with c/o headache and vertigo since thursday. Pt. was seen at [facility] and started on prednisone. pt. stopped taking [...] The patient states she was seen at [facility] discharged home. She went to urgent care [...] neurological deficit. She has been seen at [facility] and started on prednisone. Possible her symptoms [...] ADRYAN MARIE In 3 days 04/15/2022 EDT [facility] [id number] (1) Additional Instructions: Return to the [...] Diagnostic Results No qualifying data available. Normal [facility] Comment on above: Result Comment: Elec tronically Signed By: Antony Villa, Lata Baxter\.br\Date and Time Signed: 04/13/22 04:56 EDT ER URINE PROFILEon 2 Bilirubin Ql (U) Negative Normal NEGATIVE [facility] Comment on above: Performed By: #### P REGU, ERUR #### [facility] [address] [address] [address] Reema Mireles Clarity (U) CLEAR Normal CLEAR [facility] Comment on above: Performed By: #### P REGU, ERUR #### [facility] [address] [address] [address] Reema Mireles Color (U) LT. YELLOW Normal YELLOW [facility] Comment on above: Performed By: #### P REGU, ERUR #### [facility] [address] [address] [address] Reema Mireles ERUAHD A micrscopic examination will be performed if indicated. Normal [facility] Comment on above: Performed By: #### P REGU, ERUR #### [facility] [address] [address] [address] Reema Mireles Glucose Ql (U) Negative Normal NEGATIVE [facility] Comment on above: Performed By: #### P REGU, ERUR #### [facility] [address] [place] [address] Dr. Reema Mireles Hemoglobin Ql (U) Negative Normal NEGATIVE [facility] Comment on above: Performed By: #### P REGU, ERUR #### [facility] [address] [place] [address] Dr. Reema Mireles Ketones Ql (U) Negative Normal NEGATIVE [facility] Comment on above: Performed By: #### P REGU, ERUR #### [facility] [address] [place] [address] Dr. Reema Mireles LEUKOCYTES Negative Normal NEGATIVE [facility] Comment on above: Performed By: #### P REGU, ERUR #### [facility] [address] [place] [address] Dr. Reema Mireles Nitrite Ql (U) Negative Normal NEGATIVE [facility] Comment on above: Performed By: #### P REGU, ERUR #### [facility] [address] [place] [address] Dr. Reema Mireles pH (U) 6.5 [pH] Normal 5-9 [facility] Comment on above: Performed By: #### P REGU, ERUR #### [facility] [address] [place] [address] Dr. Reema Mireles SPEC GRAVITY 1.005 Normal 1.005-<=1.025 [facility] Comment on above: Performed By: #### P REGU, ERUR #### [facility] [address] [place] [address] Dr. Reema Mireles UA PROTEIN Negative Normal NEGATIVE/ TRACE [facility] Comment on above: Performed By: #### P REGU, ERUR #### [facility] [address] [place] [address] Dr. Reema Mireles UR MICRO IND NOT INDICATED Normal [facility] Comment on above: Performed By: #### P REGU, ERUR #### [facility] [address] [place] [address] Dr. Reema Mireles Urobilinogen Qn (U) 0.2 {Renny'U}/dL Normal 0.2 - 1. 0 [facility] Comment on above: Performed By: #### P REGU, ERUR #### [facility] [address] [address] [address] Reema Mireles URon 04-13-2022 , QUAL Negative Normal NEGATIVE [facility] Comment on above: Performed By: #### P REGU, ERUR #### [facility] [address] [address] [address] Reema Mireles PROF CHEM 8 (BAS METB)on Anion gap [Moles/Vol] 14.0 mmol/L Normal [facility] Comment on above: Performed By: #### B MP, TSH #### [facility] [address] [place] [address] Dr. Reema Mireles Calcium [Mass/Vol] 9.2 mg/dL Normal 8.5-10.1 [facility] Comment on above: Performed By: #### B GURPREET, TSH #### [facility] [address] [address] [address] Reema Mireles Chloride [Moles/Vol] 102 mmol/L Normal 98-107 [facility] Comment on above: Performed By: #### B GURPREET, TSH #### [facility] [address] [address] [address] Reema Mireles CO2 [Moles/Vol] 26.3 mmol/L Normal 21.0-32.0 [facility] Comment on above: Performed By: #### B MP, TSH #### [facility] [address] [address] [address] Reema Mireles Creatinine [Mass/Vol] 0.65 mg/dL Normal 0.55-1.02 [facility] Comment on above: Performed By: #### B MP, TSH #### [facility] [address] [place] [address] Dr. Reema Mireles EGFR-AF [place] >60 Normal >=60 [facility] Comment on above: Performed By: #### B MP, TSH #### [facility] [address] [address] [address] Reema Mireles EGFR-NON AF [place] >60 Normal >=60 [facility] Comment on above: Performed By: #### B GURPREET, TSH #### [facility] [address] [address] [address] Reema Mireles Glucose [Mass/Vol] 92 mg/dL Normal 74-106 [facility] Comment on above: Performed By: #### B GURPREET, TSH #### [facility] [address] [address] [address] Reema Mireles Potassium [Moles/Vol] 3.3 mmol/L Critically low 3.5-5.1 [facility] Comment on above: Performed By: #### B GURPREET, TSH #### [facility] [address] [place] [address] Dr. Reema Mireles Sodium [Moles/Vol] 139 mmol/L Normal 136-145 [facility] Comment on above: Performed By: #### B GURPREET, TSH #### [facility] [address] [address] [address] Reema Mireles Urea nitrogen [Mass/Vol] 8.0 mg/dL Normal 7.0-18.0 [facility] Comment on above: Performed By: #### B GURPREET, TSH #### [facility] [address] [place] [address] Dr. Reema Mireles Urea nitrogen/Creatinine [Mass ratio] 12.3 mg/mg Normal [facility] Comment on above: Performed By: #### B GURPREET, TSH #### [facility] [address] [place] [address] Dr. Reema Mireles TSHon 04-13-2022 TSH 1.293 uIU/mL Normal 0.358-3.740 [facility] Comment on above: Performed By: #### B GURPREET, TSH #### [facility] [address] [place] [address] Dr. Reema Mireles Consent for Treatmenton 03-28 Consent for Treatment [id number] Normal [facility] ED Clinical Summaryon 2021 ED Clinical Summary [address] [address] ED Clinical Summary Person Information Name: JUANPABLO CHAPARRO [place] Age: 21 Years : 2000 Sex: Female Language: Cambodian PCP: ADRYAN MARIE MD Marital Status: Single Phone: [phone] Visit Id: Visit Reason: Vertigo - recurrent; [...] 04/12/2022 21:07:38 04/12/2022 21:07:38 04/12/2022 21:07:38 ADDRESS: [address] [place] [phone] PHYS DOC NOTES: MEDICAL INFORMATION: Prescriptions Given: PATIENT EDUCATION INFORMATION: Instructions: General Headache Without Cause; Vertigo Follow up: With: Address: When: ADRYAN MARIE [address] [place], [place] [id number] [employer] (1) In 3 days 04/15/2022 Comments: Return to the emergency room if her headache gets worse, vertigo becomes persistent or any new symptoms DIAGNOSIS: 1:Vertigo; 2:Headache Normal [facility] ED Patient Education Noteon 04-12-2022 ED [...] you feel dizzy. General instructions ? Take cxzv-fqf-anrdnpq and prescription medicines only as told by [...] 06/24/2006 Document Revised: 08/08/2019 Document Reviewed: 08/08/2019 [employer] Patient Education ? 2020 [employer] Neurology General Headache Without Cause A [...] with your condition: Managing pain ? Take lsos-oqs-fevqxai and prescription medicines only as told by [...] of beer (more content not included)... Normal [facility] ED Patient Summaryon 022 ED Patient Summary [address] [id number] Patient Discharge Instructions Person Information Name: JUANPABLO CHAPARRO Age: 21 Years Arrival Date: 04/12/2022 19:22:40 Discharge Diagnosis: 1:Vertigo; 2:Headache Primary Care Physician: ADRYAN MARIE MD Provider Information Primary Provider: Antony Villa, Lata Baxter [employer] Hand:None The exam and treatment you received in the Emergency Department were for an urgent problem and are not intended as complete care. It is important that you follow up with a doctor, nurse practitioner, or physician?s showroom sales assistant for ongoing care. If your symptoms [...] Follow-up Instructions: With: Address: When: ADRYAN MARIE [address] [place], [place] [id number] [employer] In 3 days 04/15/2022 Comments: Return to [...] opioids can be used to help relieve pfcetwnj-wu-mcilno pain and are often prescribed following a [...] addiction, tel (more content not included)... Normal [facility] CBC AUTO DIFFon 04-09-2022 BASO # 0.1 103/ul Normal 0.0-0.1 [facility] Comment on above: Performed By: #### B MP, TSH #### [facility] [address] [address] [address] Reema Mireles Basophils/100 WBC (Bld) 0.5 % Normal 0.2-2.0 [facility] Comment on above: Performed By: #### B MP, TSH #### [facility] [address] [place] [address] Dr. Reema Mireles EO # 0.1 103/ul Normal 0.0-0.7 [facility] Comment on above: Performed By: #### B MP, TSH #### [facility] [address] [place] [address] Dr. Reema Mireles Eosinophils/100 WBC (Bld) 1.0 % Normal 0.9-7.0 [facility] Comment on above: Performed By: #### B MP, TSH #### [facility] [address] [place] [address] Dr. Reema Mireles Erythrocyte distribution width (RBC) [Ratio] 11.7 % Normal 11.0-15.0 [facility] Comment on above: Performed By: #### B MP, TSH #### [facility] [address] [place] [address] Dr. Reema Mireles Hematocrit (Bld) [Volume fraction] 37.2 % Normal 36.0-48.0 [facility] Comment on above: Performed By: #### B MP, TSH #### [facility] [address] [place] [address] Dr. Reema Mireles Hemoglobin (Bld) [Mass/Vol] 12.8 g/dL Normal 12.0-16.0 [facility] Comment on above: Performed By: #### B GURPREET, TSH #### [facility] [address] [place] [address] Dr. Reema Mireles IG # 0.02 10e3/ul Normal 0.00-0.03 [facility] Comment on above: Performed By: #### B MP, TSH #### [facility] [address] [place] [address] Dr. Reema Mireles IG % 0.2 % Normal 0.0-0.5 [facility] Comment on above: Performed By: #### B MP, TSH #### [facility] [address] [place] [address] Dr. Reema Mireles LYMPH # 1.8 103/ul Normal 1.2-3.8 [facility] Comment on above: Performed By: #### B MP, TSH #### [facility] [address] [place] [address] Dr. eRema Mireles Lymphocytes/100 WBC (Bld) 19.0 % Critically low 20.5-60.0 [facility] Comment on above: Performed By: #### B MP, TSH #### [facility] [address] [place] [address] Dr. Reema Mireles MANUAL DIFF REQ NO Normal [facility] Comment on above: Performed By: #### B MP, TSH #### [facility] [address] [place] [address] Dr. Reema Mireles MCH (RBC) [Entitic mass] 30.4 pg Normal 26.7-34.0 [facility] Comment on above: Performed By: #### B MP, TSH #### [facility] [address] [place] [address] Dr. Reema Mireles MCHC (RBC) [Mass/Vol] 34.4 g/dL Normal 29.9-35.2 [facility] Comment on above: Performed By: #### B MP, TSH #### [facility] [address] [place] [address] Dr. Reema Mireles MCV (RBC) [Entitic vol] 88.4 fL Normal 81.0-99.0 [facility] Comment on above: Performed By: #### B MP, TSH #### [facility] [address] [place] [address] Dr. Reema Mireles MONO # 0.7 103/ul Normal 0.3-0.8 [facility] Comment on above: Performed By: #### B MP, TSH #### [facility] [address] [place] [address] Dr. Reema Mireles Monocytes/100 WBC (Bld) 6.8 % Normal 1.7-12.0 [facility] Comment on above: Performed By: #### B MP, TSH #### [facility] [address] [place] [address] Dr. Reema Mireles NEUT # 7.0 103/ul Critically high 1.4-6.5 [facility] Comment on above: Performed By: #### B GURPREET, TSH #### [facility] [address] [place] [address] Dr. Reema Mireles Neutrophils/100 WBC (Bld) 72.5 % Normal 43.0-75.0 [facility] Comment on above: Performed By: #### B GURPREET, TSH #### [facility] [address] [place] [address] Dr. Reema Mireles Platelet mean volume (Bld) [Entitic vol] 10.3 fL Normal 9.5-13.5 [facility] Comment on above: Performed By: #### B GURPREET, TSH #### [facility] [address] [place] [address] Dr. Reema Mireles PLT 358 103/ul Normal 150-450 [facility] Comment on above: Performed By: #### Inna VÁZQUEZ, TSH #### [facility] [address] [place] [address] Dr. Reema Mireles RBC 4.21 106/ul Normal 4.20-5.40 [facility] Comment on above: Performed By: #### B GURPREET, TSH #### [facility] [address] [place] [address] Dr. Reema Mireles WBC 9.7 103/ul Normal 4.0-11.0 [facility] Comment on above: Performed By: #### B GURPREET, TSH #### [facility] [address] [place] [address] Dr. Reema Mireles CULTURE BLOODon 04-09-2022 Microscopic examination of blood, culture Culture Observations: NO GROWTH AT 5 DAYS. Normal [facility] Comment on above: Performed By: #### B GURPREET, TSH #### [facility] [address] [place] [address] Dr. Reema Mireles ER URINE PROFILEon 2 Bilirubin Ql (U) Negative Normal NEGATIVE [facility] Comment on above: Performed By: #### B GURPREET, TSH #### [facility] [address] [place] [address] Dr. Reema Mireles Clarity (U) CLEAR Normal CLEAR [facility] Comment on above: Performed By: #### B MP, TSH #### [facility] [address] [place] [address] Dr. Reema Mireles Color (U) LT. YELLOW Normal YELLOW [facility] Comment on above: Performed By: #### B MP, TSH #### [facility] [address] [place] [address] Dr. Reema Mireles ERUAHD A micrscopic examination will be performed if indicated. Normal [facility] Comment on above: Performed By: #### B MP, TSH #### [facility] [address] [place] [address] Dr. Reema Mireles Glucose Ql (U) Negative Normal NEGATIVE [facility] Comment on above: Performed By: #### B MP, TSH #### [facility] [address] [place] [address] Dr. Reema Mireles Hemoglobin Ql (U) TRACE-INTACT Abnormal NEGATIVE [facility] Comment on above: Performed By: #### B MP, TSH #### [facility] [address] [place] [address] Dr. Reema Mireles Ketones Ql (U) Negative Normal NEGATIVE [facility] Comment on above: Performed By: #### B MP, TSH #### [facility] [address] [place] [address] Dr. Reema Mireles LEUKOCYTES Negative Normal NEGATIVE [facility] Comment on above: Performed By: #### B MP, TSH #### [facility] [address] [place] [address] Dr. Reema Mireles Nitrite Ql (U) Negative Normal NEGATIVE [facility] Comment on above: Performed By: #### B MP, TSH #### [facility] [address] [place] [address] Dr. Reema Mireles pH (U) 5.5 [pH] Normal 5-9 [facility] Comment on above: Performed By: #### B MP, TSH #### [facility] [address] [place] [address] Dr. Reema Mireles SPEC GRAVITY <=1.005 Abnormal 1.005-<=1.025 [facility] Comment on above: Performed By: #### B MP, TSH #### [facility] [address] [place] [address] Dr. Reema Mireles UA PROTEIN Negative Normal NEGATIVE/ TRACE [facility] Comment on above: Performed By: #### B MP, TSH #### [facility] [address] [place] [address] Dr. Reema Mireles UR MICRO IND INDICATED Normal [facility] Comment on above: Performed By: #### B MP, TSH #### [facility] [address] [place] [address] Dr. Reema Mireles Urobilinogen Qn (U) 0.2 {Renny'U}/dL Normal 0.2 - 1. 0 [facility] Comment on above: Performed By: #### B GURPREET, TSH #### [facility] [address] [place] [address] Dr. Reema Mireles LACTATE/LACTIC ACIDon 2021 Lactate [Moles/Vol] 2.2 mmol/L Critically high 0.4-1.9 [facility] Comment on above: Performed By: #### B MP, TSH #### [facility] [address] [place] [address] Dr. Reema Mireles URon 04-09-2022 , QUAL Negative Normal NEGATIVE [facility] Comment on above: Performed By: #### B GURPREET, TSH #### [facility] [address] [place] [address] Dr. Reema Mireles PROF 14(COMP METB)on 022 Albumin [Mass/Vol] 4.5 g/dL Normal 3.4-5.0 [facility] Comment on above: Performed By: #### C MP #### [facility] [address] [place] [address] Dr. Reema Mireles Albumin/Globulin [Mass ratio] 1.3 {ratio} Normal [facility] Comment on above: Performed By: #### C MP #### [facility] [address] [place] [address] Dr. Reema Mireles ALP [Catalytic activity/Vol] 83 U/L Normal 46-116 [facility] Comment on above: Performed By: #### C MP #### [facility] [address] [address] [address] Reema Mireles ALT [Catalytic activity/Vol] 26 U/L Normal 14-59 [facility] Comment on above: Performed By: #### C MP #### [facility] [address] [address] [address] Reema Mireles Anion gap [Moles/Vol] 14.9 mmol/L Normal [facility] Comment on above: Performed By: #### C MP #### [facility] [address] [place] [address] Dr. Reema Mireles AST [Catalytic activity/Vol] 12 U/L Critically low 15-37 [facility] Comment on above: Performed By: #### C MP #### [facility] [address] [place] [address] Dr. Reema Mireles Bilirubin [Mass/Vol] 0.3 mg/dL Normal 0.2-1.0 [facility] Comment on above: Performed By: #### C MP #### [facility] [address] [place] [address] Dr. Reema Mireles Calcium [Mass/Vol] 9.6 mg/dL Normal 8.5-10.1 [facility] Comment on above: Performed By: #### C MP #### [facility] [address] [place] [address] Dr. Reema Mireles Chloride [Moles/Vol] 103 mmol/L Normal 98-107 [facility] Comment on above: Performed By: #### C MP #### [facility] [address] [address] [address] Reema Mireles CO2 [Moles/Vol] 24.4 mmol/L Normal 21.0-32.0 [facility] Comment on above: Performed By: #### C MP #### [facility] [address] [address] [address] Reema Mireles Creatinine [Mass/Vol] 0.87 mg/dL Normal 0.55-1.02 [facility] Comment on above: Performed By: #### C MP #### [facility] [address] [address] [address] Reema Mireles EGFR-AF [place] >60 Normal >=60 [facility] Comment on above: Performed By: #### C MP #### [facility] [address] [address] [address] Reema Mireles EGFR-NON AF [place] >60 Normal >=60 [facility] Comment on above: Performed By: #### C MP #### [facility] [address] [address] [address] Reema Mireles Globulin (S) [Mass/Vol] 3.5 g/dL Normal [facility] Comment on above: Performed By: #### C MP #### [facility] [address] [place] [address] Dr. Reema Mireles Glucose [Mass/Vol] 109 mg/dL Critically high 74-106 [facility] Comment on above: Performed By: #### C MP #### [facility] [address] [address] [address] Reema Mireles Potassium [Moles/Vol] 3.3 mmol/L Critically low 3.5-5.1 [facility] Comment on above: Performed By: #### C MP #### [facility] [address] [place] [address] Dr. Reema Mireles Protein [Mass/Vol] 8.0 g/dL Normal 6.4-8.2 [facility] Comment on above: Performed By: #### C MP #### [facility] [address] [address] [address] Reema Mireles Sodium [Moles/Vol] 139 mmol/L Normal 136-145 [facility] Comment on above: Performed By: #### C MP #### [facility] [address] [address] [address] Reema Mireles Urea nitrogen [Mass/Vol] 9.0 mg/dL Normal 7.0-18.0 [facility] Comment on above: Performed By: #### C MP #### [facility] [address] [place] [address] Dr. Reema Mireles Urea nitrogen/Creatinine [Mass ratio] 10.3 mg/mg Normal [facility] Comment on above: Performed By: #### C MP #### [facility] [address] [place] [address] Dr. Reema Mireles URINE MICROSCOPIC ONLYon BACTERIA NONE SEEN Normal NONE SEEN [facility] Comment on above: Performed By: #### B MP, TSH #### [facility] [address] [place] [address] Dr. Reema Mireles Bacteria identified Cx Nom (U) NOT INDICATED Normal [facility] Comment on above: Performed By: #### B MP, TSH #### [facility] [address] [place] [address] Dr. Reema Mireles CAST NONE SEEN Normal NONE SEEN [facility] Comment on above: Performed By: #### B MP, TSH #### [facility] [address] [place] [address] Dr. Reema Mireles Crystals LM Nom (Urine sed) NONE SEEN Normal NONE SEEN [facility] Comment on above: Performed By: #### B MP, TSH #### [facility] [address] [place] [address] Dr. Reema Mireles Epithelial cells LM Ql (Urine sed) RARE Normal NONE SEEN /RARE [facility] Comment on above: Performed By: #### B MP, TSH #### [facility] [address] [place] [address] Dr. Reema Mireles MUCOUS NONE SEEN Normal NONE SEEN [facility] Comment on above: Performed By: #### B MP, TSH #### [facility] [address] [place] [address] Dr. Reema Mireles RBC 0-2 Normal 0-2 [facility] Comment on above: Performed By: #### B MP, TSH #### [facility] [address] [place] [address] Dr. Reema Mireles WBC NONE SEEN Normal NONE SEEN [facility] Comment on above: Performed By: #### B MP, TSH #### [facility] [address] [place] [address] Dr. Reema Mireles CBC AUTO DIFFon 10-25-2021 BASO # 0.0 103/ul Normal 0.0-0.1 [facility] Comment on above: Performed By: #### C BC #### [facility] [address] [place] [address] Dr. Reema Mireles Basophils/100 WBC (Bld) 0.6 % Normal 0.2-2.0 [facility] Comment on above: Performed By: #### C BC #### [facility] [address] [place] [address] Dr. Reema Mireles EO # 0.1 103/ul Normal 0.0-0.7 [facility] Comment on above: Performed By: #### C BC #### [facility] [address] [place] [address] Dr. Reema Mireles Eosinophils/100 WBC (Bld) 1.8 % Normal 0.9-7.0 [facility] Comment on above: Performed By: #### C BC #### [facility] [address] [place] [address] Dr. Reema Mireles Erythrocyte distribution width (RBC) [Ratio] 11.9 % Normal 11.0-15.0 [facility] Comment on above: Performed By: #### C BC #### [facility] [address] [place] [address] Dr. Reema Mireles Hematocrit (Bld) [Volume fraction] 38.1 % Normal 36.0-48.0 [facility] Comment on above: Performed By: #### C BC #### [facility] [address] [place] [address] Dr. Reema Mireles Hemoglobin (Bld) [Mass/Vol] 13.1 g/dL Normal 12.0-16.0 [facility] Comment on above: Performed By: #### C BC #### [facility] [address] [place] [address] Dr. Reema Mireles IG # 0.01 10e3/ul Normal 0.00-0.03 [facility] Comment on above: Performed By: #### C BC #### [facility] [address] [place] [address] Dr. Reema Mrieles IG % 0.1 % Normal 0.0-0.5 [facility] Comment on above: Performed By: #### C BC #### [facility] [address] [place] [address] Dr. Reema Mireles LYMPH # 1.9 103/ul Normal 1.2-3.8 [facility] Comment on above: Performed By: #### C BC #### [facility] [address] [place] [address] Dr. Reema Mireles Lymphocytes/100 WBC (Bld) 27.8 % Normal 20.5-60.0 [facility] Comment on above: Performed By: #### C BC #### [facility] [address] [place] [address] Dr. Reema Mireles MANUAL DIFF REQ NO Normal [facility] Comment on above: Performed By: #### C BC #### [facility] [address] [place] [address] Dr. Reema Mireles MCH (RBC) [Entitic mass] 30.5 pg Normal 26.7-34.0 [facility] Comment on above: Performed By: #### C BC #### [facility] [address] [place] [address] Dr. Reema Mireles MCHC (RBC) [Mass/Vol] 34.4 g/dL Normal 29.9-35.2 [facility] Comment on above: Performed By: #### C BC #### [facility] [address] [place] [address] Dr. Reema Mireles MCV (RBC) [Entitic vol] 88.8 fL Normal 81.0-99.0 [facility] Comment on above: Performed By: #### C BC #### [facility] [address] [place] [address] Dr. Reema Mireles MONO # 0.8 103/ul Normal 0.3-0.8 [facility] Comment on above: Performed By: #### C BC #### [facility] [address] [place] [address] Dr. Reema Mireles Monocytes/100 WBC (Bld) 11.2 % Normal 1.7-12.0 [facility] Comment on above: Performed By: #### C BC #### [facility] [address] [place] [address] Dr. Reema Mireles NEUT # 4.0 103/ul Normal 1.4-6.5 [facility] Comment on above: Performed By: #### C BC #### [facility] [address] [place] [address] Dr. Reema Mireles Neutrophils/100 WBC (Bld) 58.5 % Normal 43.0-75.0 [facility] Comment on above: Performed By: #### C BC #### [facility] [address] [place] [address] Dr. Reema Mireles Platelet mean volume (Bld) [Entitic vol] 10.0 fL Normal 9.5-13.5 [facility] Comment on above: Performed By: #### C BC #### [facility] [address] [place] [address] Dr. Reema Mireles PLT 361 103/ul Normal 150-450 [facility] Comment on above: Performed By: #### C BC #### [facility] [address] [place] [address] Dr. Reema Mireles RBC 4.29 106/ul Normal 4.20-5.40 [facility] Comment on above: Performed By: #### C BC #### [facility] [address] [place] [address] Dr. Reema Mireles WBC 6.8 103/ul Normal 4.0-11.0 [facility] Comment on above: Performed By: #### C BC #### [facility] [address] [place] [address] Dr. Reema Mireles PREG QUANT HCGon 10-25-2021 HCG QUANT 1 mIU/mL Normal [facility] Comment on above: Performed By: #### P REGQNT #### [facility] [address] [place] [address] Dr. Reema Mireles HCG RANGE SEE BELOW Normal [facility] Comment on above: Result Comment: 5-50 0-1 WEEK 40-300 1-2 WEEKS 100-1,000 2-3 WEEKS 500-6,000 3-4 WEEKS 5,000-200,000 1-2 MONTHS 10,000-100,000 2-3 MONTHS 3,000-50,000 2ND TRIMESTER 1,000-50,000 3RD TRIMESTER Performed By: #### P REGQNT #### [facility] [address] [address] [address] Reema Mireles Covid-19 PCR ([facility])on 09-29 SARS-CoV-2 (COVID-19) RNA FRANKIE+probe Ql (Unsp spec) Not detected Normal NOT DETECTED [facility] Comment on above: Result Comment: This test is not yet approved or cleared by the [place] FDA. When there are no FDA-approved or cleared tests available, and other criteria are met, FDA can make tests available under an emergency access mechanism called an Emergency Use Authorization (EUA). The EUA for this test is supported by the Lighting Technician of Health and Human Service's (HHS's) declaration [...] SARS-CoV-2. Performed By: #### C VDTB #### [facility] [address] [place], [place] [address] Dr. Reema Mireles Vital Signs Date Time Vital Sign Value Performing Clinician Facility 11-12-2023 14:15-0500 Body weight 108.86 kg [employer] Work Phone: [facility] 11-12-2023 14:15-0500 Diastolic blood pressure 72 mm[Hg] [employer] Work Phone: [facility] 11-12-2023 14:15-0500 Systolic blood pressure 122 mm[Hg] Devan Tello DO Work Phone: [facility] 04-12-2022 21:04-0400 Diastolic blood pressure 84 mm[Hg] [facility] 04-12-2022 21:04-0400 Heart rate 82 /min [facility] 04-12-2022 21:04-0400 Respiratory rate 16 /min [facility] 04-12-2022 21:04-0400 SaO2% (BldA) [Mass fraction] 98 % [facility] [facility]22 21:04-0400 Systolic blood pressure 120 mm[Hg] [facility] 04-12-2022 20:32-0400 gluc 80 mg/dL [facility] Comment on above: Result Comment: not taken due to pt refu jimmie of any injection 04-12-2022 20:32-0400 gluc [facility] 04-12-2022 19:25-0400 Body temperature 99.32 [degF] [facility] 04-12-2022 19:25-0400 Diastolic blood pressure 84 mm[Hg] [facility] 04-12-2022 19:25-0400 Heart rate 90 /min [facility] 04-12-2022 19:25-0400 Respiratory rate 18 /min [facility] 04-12-2022 19:25-0400 SaO2% (BldA) [Mass fraction] 98 % [facility] 04-12-2022 19:25-0400 Systolic blood pressure 118 mm[Hg] [facility] 04-09-2022 12:20-0400 Body height 165.1 cm Deonna Back Other [employer] Other 04-09-2022 12:20-0400 Body mass index (BMI) [Ratio] 35.61 kg/m2 Deonna Cavanaughmond Other [employer] Other 04-09-2022 12:20-0400 Body temperature 98.4 [degF] Deonna Nazanin Other [employer] Other 04-09-2022 12:20-0400 Body weight 97.07 kg Deonna Nazanin Other [employer] Other 04-09-2022 12:20-0400 Diastolic blood pressure 83 mm[Hg] Deonna Nazanin Other [employer] Other 04-09-2022 12:20-0400 Respiratory rate 18 /min Deonna Cavanaughmond Other [employer] Other 04-09-2022 12:20-0400 SaO2% (BldA) [Mass fraction] 99 % Deonna Nazanin Other [employer] Other 04-09-2022 12:20-0400 Systolic blood pressure 135 mm[Hg] Deonna Nazanin Other [employer] Other 04-02-2022 19:00-0400 Body height 165.1 cm Deonna Nazanin Other [employer] Other 04-02-2022 19:00-0400 Body mass index (BMI) [Ratio] 35.71 kg/m2 Deonna Nazanin Other [employer] Other 04-02-2022 19:00-0400 Body temperature 98.1 [degF] Deonna Nazanin Other [employer] Other 04-02-2022 19:00-0400 Body weight 97.34 kg Deonna Back Other [employer] Other 04-02-2022 19:00-0400 Diastolic blood pressure 83 mm[Hg] Deonna Back Other [employer] Other 04-02-2022 19:00-0400 Respiratory rate 18 /min Deonna Back Other [employer] Other 04-02-2022 19:00-0400 SaO2% (BldA) [Mass fraction] 100 % Deonna Back Other [employer] Other 04-02-2022 19:00-0400 Systolic blood pressure 134 mm[Hg] Deonna Back Other [employer] Other Encounters Encounter Date Encounter Type Care [...] 04-12-2022 End: 04-12-2022 Emergency department patient visit [facility] Start: 04-10-2022 End: 04-10-2022 ambulatory Deonna Back Other [employer] Other Start: 04-10-2022 Telephone encounter Deonna Back [facility] Start: 04-09-2022 End: 04-09-2022 ambulatory Deonna Back Other [employer] Other Start: 04-09-2022 Office outpatient vi sit 15 minutes Deonna Back [facility] Start: 04-09-2022 End: 04-09-[address] LUIS ANTONIO SUTTON Facility:[facility] Start: 04-02-2022 (URG) Urgent Care Visit Deonna Silva d [facility] Start: 04-02-2022 End: 04-02-2022 ambulatory Deonna Back Other [employer] Other Start: 10-25-2021 End: 10-25-[address] ADRYAN MARIE Facility:[facility] Start: 10-24-2021 Encounter for preprocedural laboratory examination DR DEVAN TELLO [facility] Start: 10-22-2021 End: 10-23-[address] ADRYAN MARIE Facility:[facility] Start: 10-22-2021 End: 10-23-2021 Encounter for preprocedural laboratory examination DR ADRYAN MARIE Facility:[facility] Start: 10-19-2021 Encounter for other preprocedural examination DR DEVAN TELLO [facility] Start: 10-17-2021 End: 10-18-[address] ADRYAN [...] Routine [facility] [address] [place] [id number] Cydney Leos PA [address] [place] [address] [facility] Start: 11-26-2023 End: 11-26-2023 Professional / ancillary services management 11/26/2023 10:30 AM EST Ancillary Procedure [facility] [address] [place] [id number] [facility] Start: 11-12-2023 End: 11-12-2024 US for US OB SCAN FOR GROWTH Imaging Routine Excessive growth affecting management of in third trimester, single or unspecified fetus Expected: 11/12/2023 (Approximate), Expires: 11/12/2024 [facility] Work Phone: Comment on above: Expected: 11/12/2023 (Approximate), Expires: 11/12/2024 Start: 11-12-2023 End: 11-12-2023 Patient encounter procedure 11/12/2023 10:50 AM EST Routine [facility] [address] [facility] [place] [address] Devan Tello, [address] [facility] [place] [address] [facility] Payers Date Payer Category Payer Unknown [facility] MEDICAID [id number] 2023-Present [address] [place] [address] [id number] 2023 Unknown [id number] 2001 Unknown [id number] 2.16.840.1.011027.3.579.2. 593 2001 Unknown [id number] 2.16.840.1.988914.3.579.2. 593 2001 Unknown [id number] 2.16.840.1.441522.3.579.2. 593 2001 Unknown [id number] 2.16.840.1.172438.3.579.2. 593 2001 Unknown [id number] 2.16.840.1.912241.3.579.2. 593 2001 Unknown [id number] 2.16.840.1.425293.3.579.2. 593 2001 Unknown [id number] 2.16.840.1.587498.3.579.2. 593 2001 Unknown [id number] 2.16.840.1.850190.3.579.2. 593 2001 Unknown [id number] 2.16.840.1.389652.3.579.2. 593 2001 Unknown [id number] 2.16.840.1.287380.3.579.2. 593 2001 Unknown [id number] 2.16.840.1.557657.3.579.2. 593 2001 Unknown [id number] 2.16.840.1.676764.3.579.2. 1259 2001 Unknown [id number] 2.16.840.1.098634.3.579.2. 1259 2001 Unknown [id number] 2.16.840.1.368437.3.579.2. 1259 2001 Unknown [id number] 2.16.840.1.405578.3.579.2. 1259 2001 Unknown [id number] 2.16.840.1.699630.3.579.2. 1259 1958 [facility] [id number] 2.16.840.1.678361.19 Social History Date Type Detail Facility Unknown if ever smoked [facility] Referrals Other Sex Assigned At [facility] Referrals Other Tobacco smoking status No Smoking Status Entered [facility] Start: 06-20-2023 Tobacco smoking status MAIS Tobacco smoking consumption unknown [facility] Start: 10-15-2023 Alcohol intake Lifetime non-d hermes (finding) [facility] Start: 06-20-2023 Tobacco Comment Current smoker (frequency unknown) [facility] Start: 05-06-2023 [facility] Start: 2001 Sex Assigned At Not on file [facility] Goals Date Patient Goal Desired Activity /State Personal health goal Functional Status Date Assessment Result Facility 04-12-2022 Functional Status N/A [facility] History of Present illness Narrative 11-12-2023 [...] Devan Tello DO documented in this encounter [facility] Discharge instructions 04-12-2022 Note Date & [...] help with your condition: Managing pain Take urhb-eee-nwowndh and prescription medicines only as told by [...] 09/14/2006 Document Revised: 04/04/2019 Document Reviewed: 04/04/2019 [employer] Patient Education 2020 Retention Education. 04/12/2022 21:07:38 Vertigo Vertigo Vertigo is the [...] if you feel dizzy. General instructions Take lxcu-vgz-tmnfmwa and prescription medicines only as told by [...] 06/24/2006 Document Revised: 08/08/2019 Document Reviewed: 08/08/2019 [employer] Patient Education Zipments. Follow Up Care 04/12/2022 19:25:17 With:ADRYAN MARIE Address: [address] [place] [address]- Business (1) When:04/15/2022 20:55:24 Comments:Return to the emergency room if her headache gets worse, vertigo becomes persistent or any new symptoms [facility] Evaluation note 04-09-2022 Note Date & [...] She was prescribed Zofran with no improvement. [employer] Other Evaluation note 04-02-2022 Note Date & [...] 3 days. No swimming for a week [employer] Other Clinical Note 10-25-2021 Note Date & Type Note Facility 10-25-2021 Note OPERATIVE NOTE PROCEDURE: Diagnostic laparoscopy. PREOPERATIVE DIAGNOSIS: Pelvic pain, dyspareunia dysmenorrhea. POSTOPERATIVE DIAGNOSIS: Pelvic pain, dyspareunia dysmenorrhea. ANESTHESIA: General. SURGEON: Devan Tello D.O. INSOLE DOUBLER: JAE Worley URINE OUTPUT: Yellow and clear. [...] to Recovery Room in stable condition. [facility] Signed and Approved by: DR DEVAN TELLO . 11/01/2021 17:31:00 [facility] Evaluation + Plan note Note Date & Type Note Facility Evaluation + Plan note No data available for this section [facility] Evaluation note Note Date & Type Note Facility Evaluation note No Information [facility] [employer] Other Evaluation note Note Date & Type [...] endometriosis Hospitalization History RSV as a baby [facility] Referrals Other Progress note Note Date & Type Note Facility Progress note No data available for this section [facility] Summary Purpose Family History No Family History Records FoundNo Family History Records FoundNo Family History Records Found Advance Directives No Advanced Directives Records FoundNo Advanced Directives Records FoundNo Advanced Directives Records Found Additional Source Comments REASON FOR VISIT (unrecogniz ed section and content) Reason Comments Routine Visit Care Team (unrecognized sect ion and content) [employer] Relationship Specialty Start Date End Date Adryan Marie MD [address] [place] [address] PCP - General Family Medicine 06/19/23 [employer] Relationship Specialty Start Date End Date Adryan Marie MD [address] [place] [address] PCP - General Family Medicine 06/19/23 INFORMATION SOURCE (unrecogn ized section and content) DATE CREATED AUTHOR 04/26/2022 Octavio Mayberry [facility] DATE CREATED AUTHOR AUTHOR'S ORGANIZ ATION 09/19/2022 [facility] DATE CREATED AUTHOR AUTHOR'S ORGANIZ ATION 11/28/2023 [facility] FOR RECORDS PERTAINING TO PATIENTS WHO [...] BE BASED ON THE PRIMARY CLINICAL RECORDS. [employer] provides no warranty or guarantee of the accuracy or completeness of information in this document.
[2023-12-04 08:56] VITALS: BP 138/79; PULSE 117
== END 2023-12-04 09:40 | disposition home or self-care (01) ==
LOC: FBCO 07:26 → FBC 08:50
PROVIDERS: PCP Family Medicine; Visit Provider Obstetrics & Gynecology
DX: O36.63X0 Maternal care for excessive fetal growth, third trimester, not applicable or unspecified (principal)
CPT/HCPCS: 59025

== ENCOUNTER 2023-12-09 07:35 | Outpatient (OUT) | payer OTHER, SELFPAY ==
--- OUTSIDE RECORDS SUMMARY | 2023-12-09 08:07 | XMS_ITS | CCD ---
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 Name Role Phone NazaninDeonna lozoya Unavailable OSCAR, ADRYAN Primary Care Physician [phone] LESLEY, DR LUIS ANTONIO Jorge Consulting Unavailable [...] Facility (3 sources) Sulfacetamide Drug Allergy rash [employer] Other (1 source) Sulfonamides (Antibiotic); Translations: [sulfa drugs] Drug allergy Hyperpyrexia (finding) [facility] (1 source) Sulfonamides (Antibiotic) Drug allergy (disorder) 07-26-20 14 [facility] (3 sources) Sulfonamides (Antibiotic) Drug Intolerance [...] BY MOUTH EVERY MORNING 0 10/06/2023 Active BX-Zas-LD-Atoka-3 ( Gummies/DHA & FA) 0.4-32.5 MG chewable tablet (3 sources) Start: 06-19-2023 End: 06-18-2024 ZI-Afi-GY-Atoka-3 ( Gummies/DHA & FA) 0.4-32.5 MG chewable tablet Indications: Missed menses Chew 32.5 mg in the morning. 30 tablet 11 06/19/2023 06/18/2024 Active Completed/Discontinued Medications Medication Drug Class(es) Dates Sig (Normalized) Sig (Original) [id number] 200 actuat albuterol 0.09 mg/actuat metered dose [...] / neomycin 3.5 mg/ml / polymyxin b [id number] unt/ml otic suspension (3 sources) Aminoglycoside Antibacterial, Polymyxin-class Antibacterial, Corticosteroid Start: 04-02-2022 Neomycin-Polymyx in-HC [id number] 3 drops left ear Three times a [...] UA Negative Negative - 4(70) +++ mg/dL [facility] Blood, UA Negative Negative - 50 Cedric/mcL [facility] Clarity, UA Clear [facility] re Color, UA Yellow [facility] Gl[facility], [facility]A Negative Negative - 1999(110) ++++ mg/dL [facility] Interpretation and review of laboratory results Normal [facility] Ketones, UA Negative Negative - 160(16) ++++ mg/dL [facility] Leukocytes, UA Negative Negative - 500+++ Alessandro/mcL [facility] Nitrite, UA Negative Negative - Positive [facility] pH, UA 6.0 5 - 9 [facility] e Protein, UA Negative Negative - 1999(20) ++++ mg/dL [facility] Spec Grav, UA 1.020 1 - 1.03 [facility] Urobilinogen, UA 0.2 0.2 - 12 mg/dL [facility] e ALL CBC WITH AUTO DIFFon BASOPHILS ABSOLUTE AUTO 0.0 [facility] Basophils/100 WBC (Bld) 0.3 % 0.2 - 2.0 % [facility] Eosinophils/100 WBC (Bld) 1.0 % 0.9 - 7.0 % [facility] Erythrocyte distribution width (RBC) [Ratio] 12.5 % 11.0 - 15.0 % [facility] Hematocrit (Bld) [Volume fraction] 35.1 % Low 36.0 - 48.0 % [facility] Hemoglobin (Bld) [Mass/Vol] 11.7 g/dL Low 12.0 - 16.0 g/dL [facility] IMMATURE GRANULOCYTES ABS AUTO 0.[address] [facility] Immature granulocytes/100 WBC (Bld) 0.6 % High 0.0 - 0.5 % [facility] Interpretation and review of laboratory results Abnormal [facility] LYMPHOCYTES ABSOLUTE AUTO 1.6 [facility] Lymphocytes/100 WBC (Bld) 11.9 % Low 20.5 - 60.0 % [facility] MCH (RBC) [Entitic mass] 30.7 pg 26.7 - 34.[address] [facility] MCHC (RBC) [Mass/Vol] 33.3 g/dL 29.9 - 35.2 g/dL [facility] MCV (RBC) [Entitic vol] 92.1 fL 81.0 - 99.[address] [facility] MONOCYTES ABSOLUTE AUTO 0.8 [facility] Monocytes/100 WBC (Bld) 5.5 % 1.7 - 12.0 % [facility] NEUTROPHILS ABSOLUTE AUTO 11.[address] [facility] Neutrophils/100 WBC (Bld) 80.7 % High 43.0 - 75.0 % [facility] Platelet mean volume (Bld) [Entitic vol] 10.6 fL 9.5 - 13.5 fL [facility] EO # 0.1 [facility] PLT 292 [facility] RBC 3.81 Low [facility] WBC 13.8 High [facility] e [facility] e CBC AUTO DIFFon 09-14-2022 BASO # 0.0 103/ul Normal 0.0-0.1 [facility] Comment on above: Performed By: #### B GURPREET, TSH #### [facility] [address] [place] [address] Dr. Reema Mireles Basophils/100 WBC (Bld) 0.6 % Normal 0.2-2.0 [facility] Comment on above: Performed By: #### B GURPREET, TSH #### [facility] [address] [address] [address] Reema Mireles EO # 0.0 103/ul Normal 0.0-0.7 [facility] Comment on above: Performed By: #### B GURPREET, TSH #### [facility] [address] [place] [address] Dr. Reema Mireles Eosinophils/100 WBC (Bld) 0.6 % Critically low 0.9-7.0 [facility] Comment on above: Performed By: #### B GURPREET, TSH #### [facility] [address] [place] [address] Dr. Reema Mireles Erythrocyte distribution width (RBC) [Ratio] 11.9 % Normal 11.0-15.0 [facility] Comment on above: Performed By: #### B GURPREET, TSH #### [facility] [address] [place] [address] Dr. Reema Mireles Hematocrit (Bld) [Volume fraction] 37.8 % Normal 36.0-48.0 [facility] Comment on above: Performed By: #### B GURPREET, TSH #### [facility] [address] [place] [address] Dr. Reema Mireles Hemoglobin (Bld) [Mass/Vol] 13.5 g/dL Normal 12.0-16.0 [facility] Comment on above: Performed By: #### B GURPREET, TSH #### [facility] [address] [place] [address] Dr. Reema Mireles IG # 0.01 10e3/ul Normal 0.00-0.03 [facility] Comment on above: Performed By: #### B GURPREET, TSH #### [facility] [address] [place] [address] Dr. Reema Mireles IG % 0.2 % Normal 0.0-0.5 [facility] Comment on above: Performed By: #### B GURPREET, TSH #### [facility] [address] [place] [address] Dr. Reema Mireles LYMPH # 1.6 103/ul Normal 1.2-3.8 [facility] Comment on above: Performed By: #### B GURPREET, TSH #### [facility] [address] [place] [address] Dr. Reema Mireles Lymphocytes/100 WBC (Bld) 25.5 % Normal 20.5-60.0 [facility] Comment on above: Performed By: #### B GURPREET, TSH #### [facility] [address] [place] [address] Dr. Reema Mireles MANUAL DIFF REQ NO Normal [facility] Comment on above: Performed By: #### B MP, TSH #### [facility] [address] [place] [address] Dr. Reema Mireles MCH (RBC) [Entitic mass] 30.9 pg Normal 26.7-34.0 [facility] Comment on above: Performed By: #### B MP, TSH #### [facility] [address] [place] [address] Dr. Reema Mireles MCHC (RBC) [Mass/Vol] 35.7 g/dL Critically high 29.9-35.2 [facility] Comment on above: Performed By: #### B MP, TSH #### [facility] [address] [place] [address] Dr. Reema Mireles MCV (RBC) [Entitic vol] 86.5 fL Normal 81.0-99.0 [facility] Comment on above: Performed By: #### B MP, TSH #### [facility] [address] [place] [address] Dr. Reema Mireles MONO # 0.5 103/ul Normal 0.3-0.8 [facility] Comment on above: Performed By: #### B MP, TSH #### [facility] [address] [place] [address] Dr. Reema Mireles Monocytes/100 WBC (Bld) 8.5 % Normal 1.7-12.0 [facility] Comment on above: Performed By: #### B MP, TSH #### [facility] [address] [place] [address] Dr. Reema Mireles NEUT # 4.1 103/ul Normal 1.4-6.5 [facility] Comment on above: Performed By: #### B MP, TSH #### [facility] [address] [place] [address] Dr. Reema Mireles Neutrophils/100 WBC (Bld) 64.6 % Normal 43.0-75.0 [facility] Comment on above: Performed By: #### B MP, TSH #### [facility] [address] [place] [address] Dr. Reema Mireles Platelet mean volume (Bld) [Entitic vol] 9.9 fL Normal 9.5-13.5 [facility] Comment on above: Performed By: #### B MP, TSH #### [facility] [address] [place] [address] Dr. Reema Mireles PLT 403 103/ul Normal 150-450 [facility] Comment on above: Performed By: #### B MP, TSH #### [facility] [address] [place] [address] Dr. Reema Mireles RBC 4.37 106/ul Normal 4.20-5.40 [facility] Comment on above: Performed By: #### B MP, TSH #### [facility] [address] [place] [address] Dr. Reema Mireles WBC 6.3 103/ul Normal 4.0-11.0 [facility] Comment on above: Performed By: #### B MP, TSH #### [facility] [address] [place] [address] Dr. Reema Mireles PROF 14(COMP METB)on 022 Albumin [Mass/Vol] 4.3 g/dL Normal 3.4-5.0 [facility] Comment on above: Performed By: #### B MP, TSH #### [facility] [address] [place] [address] Dr. Reema Mireles Albumin/Globulin [Mass ratio] 1.2 {ratio} Normal [facility] Comment on above: Performed By: #### B MP, TSH #### [facility] [address] [place] [address] Dr. Reema Mireles ALP [Catalytic activity/Vol] 79 U/L Normal 46-116 [facility] Comment on above: Performed By: #### B MP, TSH #### [facility] [address] [place] [address] Dr. Reema Mireles ALT [Catalytic activity/Vol] 31 U/L Normal 14-59 [facility] Comment on above: Performed By: #### B MP, TSH #### [facility] [address] [address] [address] Reema Mireles Anion gap [Moles/Vol] 12.1 mmol/L Normal [facility] Comment on above: Performed By: #### B MP, TSH #### [facility] [address] [address] [address] Reema Mireles AST [Catalytic activity/Vol] 17 U/L Normal 15-37 [facility] Comment on above: Performed By: #### B MP, TSH #### [facility] [address] [address] [address] Reema Mireles Bilirubin [Mass/Vol] 0.4 mg/dL Normal 0.2-1.0 [facility] Comment on above: Performed By: #### B MP, TSH #### [facility] [address] [place] [address] Dr. Reema Mireles Calcium [Mass/Vol] 8.9 mg/dL Normal 8.5-10.1 [facility] Comment on above: Performed By: #### B MP, TSH #### [facility] [address] [place] [address] Dr. Reema Mireles Chloride [Moles/Vol] 98 mmol/L Normal 98-107 [facility] Comment on above: Performed By: #### B MP, TSH #### [facility] [address] [place] [address] Dr. Reema Mireles CO2 [Moles/Vol] 27.0 mmol/L Normal 21.0-32.0 [facility] Comment on above: Performed By: #### B MP, TSH #### [facility] [address] [place] [address] Dr. Reema Mireles Creatinine [Mass/Vol] 0.65 mg/dL Normal 0.55-1.02 [facility] Comment on above: Performed By: #### B MP, TSH #### [facility] [address] [place] [address] Dr. Reema Mireles EGFR-AF BAHRAINI >60 Normal >=60 [facility] Comment on above: Performed By: #### B MP, TSH #### [facility] [address] [address] [address] Reema Mireles EGFR-NON AF BAHRAINI >60 Normal >=60 [facility] Comment on above: Performed By: #### B MP, TSH #### [facility] [address] [address] [address] Reema Mireles Globulin (S) [Mass/Vol] 3.5 g/dL Normal [facility] Comment on above: Performed By: #### B MP, TSH #### [facility] [address] [address] [address] Reema Mireles Glucose [Mass/Vol] 106 mg/dL Normal 74-106 [facility] Comment on above: Performed By: #### B MP, TSH #### [facility] [address] [place] [address] Dr. Reema Mireles Potassium [Moles/Vol] 3.1 mmol/L Critically low 3.5-5.1 [facility] Comment on above: Performed By: #### B MP, TSH #### [facility] [address] [place] [address] Dr. Reema Mireles Protein [Mass/Vol] 7.8 g/dL Normal 6.4-8.2 [facility] Comment on above: Performed By: #### B MP, TSH #### [facility] [address] [place] [address] Dr. Reema Mireles Sodium [Moles/Vol] 134 mmol/L Critically low 136-145 [facility] Comment on above: Performed By: #### B MP, TSH #### [facility] [address] [place] [address] Dr. Reema Mireles Urea nitrogen [Mass/Vol] 6.0 mg/dL Critically low 7.0-18.0 [facility] Comment on above: Performed By: #### B MP, TSH #### [facility] [address] [place] [address] Dr. Reema Mireles Urea nitrogen/Creatinine [Mass ratio] 9.2 mg/mg Normal [facility] Comment on above: Performed By: #### B MP, TSH #### [facility] [address] [place] [address] Dr. Reema Mireles ACETONE SERUMon 08-11-2022 ACETONE Negative Normal NEGATIVE [facility] Comment on above: Performed By: #### B MP, TSH #### [facility] [address] [place] [address] Dr. Reema Mireles CBC AUTO DIFFon 08-11-2022 BASO # 0.1 103/ul Normal 0.0-0.1 [facility] Comment on above: Performed By: #### B MP, TSH #### [facility] [address] [place] [address] Dr. Reema Mireles Basophils/100 WBC (Bld) 0.5 % Normal 0.2-2.0 [facility] Comment on above: Performed By: #### B MP, TSH #### [facility] [address] [place] [address] Dr. Reema Mireles EO # 0.1 103/ul Normal 0.0-0.7 [facility] Comment on above: Performed By: #### B MP, TSH #### [facility] [address] [place] [address] Dr. Reema Mireles Eosinophils/100 WBC (Bld) 0.7 % Critically low 0.9-7.0 [facility] Comment on above: Performed By: #### B MP, TSH #### [facility] [address] [place] [address] Dr. Reema Mireles Erythrocyte distribution width (RBC) [Ratio] 11.7 % Normal 11.0-15.0 [facility] Comment on above: Performed By: #### B MP, TSH #### [facility] [address] [place] [address] Dr. Reema Mireles Hematocrit (Bld) [Volume fraction] 37.6 % Normal 36.0-48.0 [facility] Comment on above: Performed By: #### B MP, TSH #### [facility] [address] [place] [address] Dr. Reema Mireles Hemoglobin (Bld) [Mass/Vol] 13.1 g/dL Normal 12.0-16.0 [facility] Comment on above: Performed By: #### B MP, TSH #### [facility] [address] [place] [address] Dr. Reema Mireles IG # 0.02 10e3/ul Normal 0.00-0.03 [facility] Comment on above: Performed By: #### B MP, TSH #### [facility] [address] [place] [address] Dr. Reema Mireles IG % 0.2 % Normal 0.0-0.5 [facility] Comment on above: Performed By: #### B MP, TSH #### [facility] [address] [place] [address] Dr. Reema Mireles LYMPH # 2.7 103/ul Normal 1.2-3.8 [facility] Comment on above: Performed By: #### B MP, TSH #### [facility] [address] [place] [address] Dr. Reema Mireles Lymphocytes/100 WBC (Bld) 28.5 % Normal 20.5-60.0 [facility] Comment on above: Performed By: #### B MP, TSH #### [facility] [address] [place] [address] Dr. Reema Mireles MANUAL DIFF REQ NO Normal [facility] Comment on above: Performed By: #### B MP, TSH #### [facility] [address] [place] [address] Dr. Reema Mireles MCH (RBC) [Entitic mass] 30.3 pg Normal 26.7-34.0 [facility] Comment on above: Performed By: #### B MP, TSH #### [facility] [address] [place] [address] Dr. Reema Mireles MCHC (RBC) [Mass/Vol] 34.8 g/dL Normal 29.9-35.2 [facility] Comment on above: Performed By: #### B MP, TSH #### [facility] [address] [place] [address] Dr. Reema Mireles MCV (RBC) [Entitic vol] 87.0 fL Normal 81.0-99.0 [facility] Comment on above: Performed By: #### B MP, TSH #### [facility] [address] [place] [address] Dr. Reema Mireles MONO # 0.8 103/ul Normal 0.3-0.8 [facility] Comment on above: Performed By: #### B MP, TSH #### [facility] [address] [place] [address] Dr. Reema Mireles Monocytes/100 WBC (Bld) 8.2 % Normal 1.7-12.0 [facility] Comment on above: Performed By: #### B MP, TSH #### [facility] [address] [place] [address] Dr. Reema Mireles NEUT # 5.9 103/ul Normal 1.4-6.5 [facility] Comment on above: Performed By: #### B MP, TSH #### [facility] [address] [place] [address] Dr. Reema Mireles Neutrophils/100 WBC (Bld) 61.9 % Normal 43.0-75.0 [facility] Comment on above: Performed By: #### B MP, TSH #### [facility] [address] [place] [address] Dr. Reema Mireles Platelet mean volume (Bld) [Entitic vol] 10.2 fL Normal 9.5-13.5 [facility] Comment on above: Performed By: #### B MP, TSH #### [facility] [address] [place] [address] Dr. Reema Mireles PLT 382 103/ul Normal 150-450 [facility] Comment on above: Performed By: #### B MP, TSH #### [facility] [address] [place] [address] Dr. Reema Mireles RBC 4.32 106/ul Normal 4.20-5.40 [facility] Comment on above: Performed By: #### B MP, TSH #### [facility] [address] [place] [address] Dr. Reema Mireles WBC 9.6 103/ul Normal 4.0-11.0 [facility] Comment on above: Performed By: #### B MP, TSH #### [facility] [address] [place] [address] Dr. Reema Mireles CRPon 08-11-2022 CRP [Mass/Vol] mg/L Normal <=1.0 [facility] Comment on above: Performed By: #### B MP, TSH #### [facility] [address] [place] [address] Dr. Reema Mireles ER URINE PROFILEon Bilirubin Ql (U) Negative Normal NEGATIVE [facility] Comment on above: Performed By: #### B MP, TSH #### [facility] [address] [place] [address] Dr. Reema Mireles Clarity (U) CLEAR Normal CLEAR [facility] Comment on above: Performed By: #### B MP, TSH #### [facility] [address] [place] [address] Dr. Reema Mireles Color (U) LT. YELLOW Normal YELLOW [facility] Comment on above: Performed By: #### B MP, TSH #### [facility] [address] [place] [address] Dr. Reema ELIZALDE A micrscopic examination will be performed if indicated. Normal [facility] Comment on above: Performed By: #### B MP, TSH #### [facility] [address] [place] [address] Dr. Reema Mireles Glucose Ql (U) Negative Normal NEGATIVE [facility] Comment on above: Performed By: #### B MP, TSH #### [facility] [address] [place] [address] Dr. eRema Mireles Hemoglobin Ql (U) Negative Normal NEGATIVE [facility] Comment on above: Performed By: #### B MP, TSH #### [facility] [address] [place] [address] Dr. Reema Mireles Ketones Ql (U) Negative Normal NEGATIVE [facility] Comment on above: Performed By: #### B MP, TSH #### [facility] [address] [place] [address] Dr. Reema Mireles LEUKOCYTES Negative Normal NEGATIVE [facility] Comment on above: Performed By: #### B MP, TSH #### [facility] [address] [place] [address] Dr. Reema Mireles Nitrite Ql (U) Negative Normal NEGATIVE [facility] Comment on above: Performed By: #### B MP, TSH #### [facility] [address] [address] [address] Reema Mireles pH (U) 5.5 [pH] Normal 5-9 [facility] Comment on above: Performed By: #### B MP, TSH #### [facility] [address] [place] [address] Dr. Reema Mireles SPEC GRAVITY <=1.005 Abnormal 1.005-<=1.025 [facility] Comment on above: Performed By: #### B MP, TSH #### [facility] [address] [place] [address] Dr. Reema Mireles UA PROTEIN Negative Normal NEGATIVE/ TRACE [facility] Comment on above: Performed By: #### B MP, TSH #### [facility] [address] [place] [address] Dr. Reema Mireles UR MICRO IND NOT INDICATED Normal [facility] Comment on above: Performed By: #### B MP, TSH #### [facility] [address] [place] [address] Dr. Reema Mireles Urobilinogen Qn (U) 0.2 {Renny'U}/dL Normal 0.2 - 1. 0 [facility] Comment on above: Performed By: #### B MP, TSH #### [facility] [address] [place] [address] Dr. Reema Mireles LIPASEon 08-11-2022 Lipase [Catalytic activity/Vol] 71.0 U/L Critically low 73.0-393.0 [facility] Comment on above: Performed By: #### B MP, TSH #### [facility] [address] [place] [address] Dr. Reema Mireles URon 08-11-2022 , QUAL Negative Normal NEGATIVE [facility] Comment on above: Performed By: #### C VDTBH #### [facility] [address] [address] [address] Reema Mireles PROF 14(COMP METB)on 08-11- 022 Albumin [Mass/Vol] 4.3 g/dL Normal 3.4-5.0 [facility] Comment on above: Performed By: #### B MP, TSH #### [facility] [address] [address] [address] Reema Mireles Albumin/Globulin [Mass ratio] 1.2 {ratio} Normal [facility] Comment on above: Performed By: #### B MP, TSH #### [facility] [address] [place] [address] Dr. Reema Mireles ALP [Catalytic activity/Vol] 70 U/L Normal 46-116 [facility] Comment on above: Performed By: #### B GURPREET, TSH #### [facility] [address] [place] [address] Dr. Reema Mireles ALT [Catalytic activity/Vol] 16 U/L Normal 14-59 [facility] Comment on above: Performed By: #### B MP, TSH #### [facility] [address] [place] [address] Dr. Reema Mireles Anion gap [Moles/Vol] 10.5 mmol/L Normal [facility] Comment on above: Performed By: #### B MP, TSH #### [facility] [address] [address] [address] Reema Mireles AST [Catalytic activity/Vol] 8 U/L Critically low 15-37 [facility] Comment on above: Performed By: #### B MP, TSH #### [facility] [address] [address] [address] Reema Mireles Bilirubin [Mass/Vol] 0.3 mg/dL Normal 0.2-1.0 [facility] Comment on above: Performed By: #### B MP, TSH #### [facility] [address] [place] [address] Dr. Reema Mireles Calcium [Mass/Vol] 9.0 mg/dL Normal 8.5-10.1 [facility] Comment on above: Performed By: #### B MP, TSH #### [facility] [address] [place] [address] Dr. Reema Mireles Chloride [Moles/Vol] 104 mmol/L Normal 98-107 [facility] [facility] Comment on above: Performed By: #### B MP, TSH #### [facility] [address] [place] [address] Dr. Reema Mireles CO2 [Moles/Vol] 26.5 mmol/L Normal 21.0-32.0 [facility] Comment on above: Performed By: #### B MP, TSH #### [facility] [address] [place] [address] Dr. Reema Mireles Creatinine [Mass/Vol] 0.79 mg/dL Normal 0.55-1.02 [facility] Comment on above: Performed By: #### B MP, TSH #### [facility] [address] [place] [address] Dr. Reema Mireles EGFR-AF BAHRAINI >60 Normal >=60 [facility] Comment on above: Performed By: #### B GURPREET, TSH #### [facility] [address] [place] [address] Dr. Reema Mireles EGFR-NON AF BAHRAINI >60 Normal >=60 [facility] Comment on above: Performed By: #### B MP, TSH #### [facility] [address] [place] [address] Dr. Reema Mireles Globulin (S) [Mass/Vol] 3.5 g/dL Normal [facility] Comment on above: Performed By: #### B MP, TSH #### [facility] [address] [place] [address] Dr. Reema Mireles Glucose [Mass/Vol] 106 mg/dL Normal 74-106 [facility] Comment on above: Performed By: #### B MP, TSH #### [facility] [address] [place] [address] Dr. Reema Mireles Potassium [Moles/Vol] 3.0 mmol/L Critically low 3.5-5.1 [facility] Comment on above: Performed By: #### B MP, TSH #### [facility] [address] [place] [address] Dr. Reema Mireles Protein [Mass/Vol] 7.8 g/dL Normal 6.4-8.2 [facility] Comment on above: Performed By: #### B MP, TSH #### [facility] [address] [place] [address] Dr. Reema Mireles Sodium [Moles/Vol] 138 mmol/L Normal 136-145 [facility] Comment on above: Performed By: #### B MP, TSH #### [facility] [address] [place] [address] Dr. Reema Mireles Urea nitrogen [Mass/Vol] 8.0 mg/dL Normal 7.0-18.0 [facility] Comment on above: Performed By: #### B MP, TSH #### [facility] [address] [place] [address] Dr. Reema Mireles Urea nitrogen/Creatinine [Mass ratio] 10.1 mg/mg Normal [facility] Comment on above: Performed By: #### B MP, TSH #### [facility] [address] [place] [address] Dr. Reema Mireles PROTIMEon 08-11-2022 INR Coag (PPP) [Relative time] 1.00 {INR} Normal [facility] Comment on above: Performed By: #### P T, PTT #### [facility] [address] [place] [address] Dr. Reema Mireles INR GUIDELINES SEE BELOW Normal [facility] Comment on above: Result Comment: FELICIANO RED INR: 2.0 - 3.0 CONDITIONS NOT LISTED BELOW 2.5 - 3.5 FOR PROSTHETIC HEART VALVE REPLACEMENT 2.5 - 3.5 RECURRENT THROMBOSIS Performed By: #### P T, PTT #### [facility] [address] [place] [address] Dr. Reema Mireles PT Coag (PPP) [Time] 10.8 s Normal 9.0-11.6 [facility] Comment on above: Performed By: #### P T, PTT #### [facility] [address] [place] [address] Dr. Reema Mireles PTTon 08-11-2022 aPTT Coag (Bld) [Time] 30.8 s Normal 22.3-36.2 [facility] Comment on above: Performed By: #### P T, PTT #### [facility] [address] [place] [address] Dr. Reema Mireles [facility] 10 mm/hr Normal <=20 [facility] Comment on above: Performed By: #### B MP, TSH #### [facility] [address] [place] [address] Dr. Reema Mireles TSHon 08-11-2022 TSH 3.313 uIU/mL Normal 0.358-3.740 [facility] Comment on above: Performed By: #### B MP, TSH #### [facility] [address] [place] [address] Dr. Reema Mireles Discharge Instructionson Discharge Instructions [id number] #[id number]:127 Normal [facility] Comment on above: Other Comment: wrong patient STOOL CULTUREon 04-20-2022 Campylobacter Culture Final report Normal [facility] Comment on above: Performed By: #### B MP, TSH #### [facility] [address] [place] [address] Dr. Reema Mireles E coli Shiga Toxin EIA Negative Normal Negative [facility] Comment on above: Performed By: #### B MP, TSH #### [facility] [address] [place] [address] Dr. Reema Mireles Result 1 Comment Normal [facility] Comment on above: Result Comment: No S almonella or Shigella recovered. Performed By: #### B MP, TSH #### [facility] [address] [place] [address] Dr. Reema Mireles Result Comment: No C ampylobacter species isolated. Salmonella/Shigella Screen Final report Normal [facility] Comment on above: Performed By: #### B MP, TSH #### [facility] [address] [place] [address] Dr. Reema Mireles Coding Summary.on 04-14-2022 Coding Summary. CD:[id number] Gh0bWw+PGhlYWQ+PE1FV IRgU13jzSWlmU5JA2uEP Y3RIEHFHEHZCG7ODF7ca WM0CRlfG3FmrbYs JsmcuXNrBX26PTd3UVF5 lXrsPBlqhP7dnSOdC2p1 CfEhEZ95aN57KRkvYTHf XdU5LsQmrbqxiLHz J4eyWoJqjDJvNyf+PHRh YmxlIHdpZHRoPScxMDAl EqVucDskGF1bHz1vNFLs LWNvbGxhcHNlOiBj a8voZAEsQJijTL5grJwa K6VemCT3IBOhy8w2Vp36 dHI+LMSyKIC3tHaxFJwc b467BiXsc0srVBY3 oNCmCLsgVXG7M97su7W5 XJDaILPdPYP7nJM8uO3w uLsnxqfrN9CcyYNrWlT8 DPI1qISxqS7mlKwh jyiukM0sPdh+K17UOQ0T UAWKMN8LRva4P6FoZycp dHI+LG94IFDmEJ06jAKb rLEvx6crlAe4AjUw CORdJND6rNwqRAcez7Hy HLTgO81ceOLne7X9RRIr wCguvKNdAoYhpWL1uY0p OHnugsqzk5jplslp Trpwq8ulmt17zW77T89t MNrlETVsEKG4UNXiNHWg rBqrbf5ncF8xTz8+IDxj o2jrx6facPy0OsXh PPPhbeFggTupYOX4s8En Qn98G2VevPpwy0KxUwr8 zl72jBSid6P9tDH2QCxg AQInyO2sANzpCnU3 BXLzBsQpxP03iZCcEOad Js9vhZbpfUirVC1kXUZu legpLIBqoO7pHNPhcQWc jUjaLU0wUBDcmpet f005XrXdOVA7KUKkdIJs M2DbrB9pYzBvFNSmXFMp W2DbtZLnEGuyZ847EYll ZhO1FIIpzxBlY1Ce BNWsmDzrPxX1d8O4Qs4O u8YlvfdnLEF0KYjuYCZ8 PmS0VkNnQwR2P8FrHmr0 TCIlfBcnMA4cZ4Sr DKZzztxodwlzeXY2EPYd DOKjlQ52sUQnYEpmGu6l i3T3m369SBBjTOWagP86 Gz3wsEpiNRWjzIBN hJ4bebwyd2jlukmnRjXj KICgBLl9MHj9CTDrgZnl BzFvHOM1StQ2QBZ6xDAu lT2gaBbtizdbpD5g Oyc+Q99ulP6nUTH9SMG4 mlcsFNMpmlEjKE84HR83 T3JrDeikqSKzqII+PGRp kcCpjNouVT5jQwNe f4xgw5VmVHujJ1DxGPBk RIhzLnu9MJZmAGS3hDB9 iE5vUCWpHQlyo4I6wSO7 X6DdhzIfte1nv9as CZJyIOvfT69hjNYuv4X5 FDZrtID9CMCgmWxuVxKe sZ52Qwf+SQJqpSeem2Jv Jwfug7ggx5fqdHx8 IjMwJSIgdmFsaWduPSJ0 l2NrQd87C45iISkkPHLi OKAvIJPvJVSseXtbig6j gO6bXa6+PGNvbCB3 yGK1lB6sCKMjDhL7JFbm A024VrNayMOgKqjgu6mg e4kpkRj8EeLeIMTgzpMq tLurQFZ3l7XxDr27 S30xQGwnDMZtSBPpIGZw QIVisVyxkd9ohI1yDn2+ KW8jk8oomn39dF01gET+ WEWoEJA5wIauXJaw FHZnjX7hRHaeXqY7DNZl XfGcsM39sYPfIWzaPy6b iTssxKkcZZ4lVZJqbdwq u205JxMbc2ltMQMb qXHkLKbvOGV5T11ta1X4 YPMnLRTcFVQ8hLM2gO2p bGlnbjogbGVmdDsgdmVy jCqgWPahEZdxM403 IHRvcDsnPlBhdGllbnQg OyPyHVb2Q5LhUwg2DEXk rJabBC6qvBBySNgpXr5t aZecwDmfRB9qJPIb nmfus248TjPbf8maGNLu pJWbZZopHKT2X96ti8W9 ZPBnDJViYJK5uGH5rT2z bGlnbjogbGVmdDsg zwUwpKhcQJdwVRvzZ629 IHRvcDsnPkJpcnRoIERh sGY2RW94AX68aXPcx2M7 uRL0C3SeCRSkqavu cslbeMU0UWZjAEIpoD03 Qk8xxQfiId1dJEDhVMV4 GITntPQkQ5FasI4dFkYw VOQoXXHpQ9LpjYVn BKzrG775OXpuExC6AFCm ppUaD4EoITPnzAvdJaQ0 v8V4Bj4AM3Z1BS65WQ54 tZIaa5X2cDC4B1Ga UAKqopgeihiafFE1QHZg JWPqsO14Gq9qaQctGz7v TQAdVPJ4PGMukMFaL3Ma vC7jNqTsALZtLLEc I8LdcWXdQLreF666BTrz SlQ4QQPfegXfP5EeHOHg gEyrOdV4k4A1Mc3PTUt7 CS31VN26bOIim3T6 kTE8J4ZdFXHittzwhrtl uLD7KHUxNQEqtP37Tz9s uYipIe5nVAObHCT5JVMx oJGoL4DvaF6fNiBd CMUfXWHzC9GjmIPsJMnu P007HBimMhU0LSCjjmEr V5YoNBCvuZqyFwJ8y5F7 Ab2QNUEdWL13LJP2 uTT2BR43NB97K8McTvcm dGFibGU+PHRhYmxlIHdp ZHRoPScxMDAlJyBzdHls ZI8iQs7xHZQgAYKc cDgpeIAnKxWqu2qoWGPa NDriST6mbSgvF3QtaBS7 GOEix4e2Aj70C82tJ4Gn dXA+AYAygAA9uLI9 vL6dMrEwHuP3TLldE962 ZtCicUXlYvrmz6pcw4mr eBj2CqZ5VALmloCteTpp OMH5n6VvHi97Q26h IHdpZHRoPSIxNSUiIHZh sWttad4nzP3rAm9+PGNv nWN9jRB4eC1oFnXjPlK9 XUyhU619DvTlhTQr Bgsfq4rne9mooUp6JiNi CYPfmsPbeHpjLRY4p5Nr Uj69B9HqrJmqi3AtTob2 rs40fEPtf2J8aBO2 F8LjGMBfswivmLWqxCbg BH6vRRDdmuypVJOykG3x YCYpF8m9IoIaWeU2OWmg U6TznwS4DEJrxPEx TEphDSI2T03ss1E6SBCg CBDgJXQ2pLD2cI4iqLiy bjogbGVmdDsgdmVydGlj HEixQOcrF305WYXf nKbzWUIoqI6sBLQofJIo qHhoYJ3zKCFuddviUimC INUKV85MN1oLUUMMQYEV QVC4O0QiWlb4ZPBu mBlxIP8xsKFrMUmeRr6y wFmfcIztNH4nUEJpvzts EYGhtE6dTLIlwYNqoCtq QY2zNEIjbwizl930 LtUkZXN8IRAqoBCdL2Oc uY9nDeEuVJHuVLMzU5Bu aSOoNBxvF588WTlrTdL2 PLNkkjHrE3ZaZYZl pTpbDtE0s7E3Sp2hUd9t BQ9fLDLaTI94DB10aMFp v1P2nXV2T2CdHMCirgvp jhypwAZ8IMWcEKNq fY70qNImBMeeEf4oh2G9 m703WPQbBHOoyB65Yo7o uLwyUYUtcZQMpK5mtsll a8qfnhokUySeJXTe HIz4RCj8GDXawJthMuKl FRS0KtJ6SEI8cYOcaW9j jOutgtbxtT1kHwx+MjAg QPWmfvR2N2QgWce4 EWAokIrjXH4frJWrJAzr Xi3snXmqqHdlXC2lQMRp thjiAXQsoZ0sEMNsvBNi nVymKU3pMRMvmegz c374LcGjOOO6AWYgxKBb B7VnkP2zMeTuDSZpNISz U3ImcLLdKPwpO865LLod CzW3TZJswrWwC8Oq JGBinAlqSgR0g0C8Jo2N DP4haAE3P8VrPqn4DAPb sQcoGL3wvKRjTRqjNt3w eQtbnZirJT4sSXAk culuZUYslY4sTVBcfZYt pPzpOQ8dTQLnrkfwd506 HsLyWID7ORTakPYhY9Rw kE1qSpDhXPKuTANm U9NwlOCaERpwD565NVnp NvT2YXSgauFcV7IsADSa yLvqGpR7j8T9Qd2XlGVo C2XdZ9b8F5XuIfmt dHI+LX14QXQvCQ98bBXx iOUir3ppwCh5VrVvDGAt XUI9wAxfTHnve8JmLPZg F08yyCTsi2F0NOXa mHgtnWAzJaGwbVB3iA5a NUvtvhqct4icxmlrOesa n0blla46lP35X29yBNfi ZHRoPSIzMCUiIHZh rQxepo7zjP6pRj7+PGNv xYS8iWE0vK0xHiYoSnX1 JGfkF240YnSeuTOgSxfo a4dhb5rzmFq4OuXd ANFlpvBbhKysKZL9r3Nc Yp52X12qITxbDDXkMJIj IANxHZYnlEiyxu3flK4k Ii8+ZA5fg5haac22 fN20yWH+TLRkUGJ3fBsk DZzlUOMisJ6hSBxmVhG1 BMFfMdByzV47rLIbGSeg Dz0rqSrxdBbzTE4w VAVlvcibf507FzWeg8ir NNGghSJuDPhdABX8Q55l u0D1XPJsECCnIIN8rYJ0 vY8teSgocekgcXBi dDsgdmVydGljYWwtYWxp T166GUMquIlzLyWyhCSy T2nebtZXGR6wPswuqBF+ TAXaIUC8qOwfDBcy TVPtwW4dPDVvC9m9ZlUy UaQ2COwhF6AjqnV4MNHv rPLeBSBayZIIoI1gjkuw i2ocpihpUkBgIYBp NLz3OAd5XGXcgLviQjUw DUI4QfO6KGB3nSOpaQ0m qGpkjrmpoQ0qEbw+RklO OjwvdGQ+PHRkIHN0 uLixUQyiFSPkhW9yKXFi H5j0FyWqKgR1VUstP1Jj yxO5ECTuzANbUVLbyVII vH2fqymea8tvgmrz XiToHMQnEZh7BAa7LNQh dSikJiFxKCH2CtS8WKW1 dBSwcT5pkKzvahobnL9z Oyc+TVJOOjwvdGQ+ KNDhCUA3wArzFEbhPQLo jN8mNDTvJ8x1FeByNaS3 FBqtP3SkugQ4WDPjcWPr IXAyzKGYaT7rodkm c4iqqjgwTkAhIBFoBJi2 CFq4IENxeDdwVhVzXAN5 FlE0GZP7bXJhzQ7gjCol vminyD9yDeq+UGF5 XTU2DU97RO13F5JdExxb dGFibGU+PHRhYmxlIHdp ZHRoPScxMDAlJyBzdHls ZM8dBb4cDSGqWJHo bGxh (more content not included)... Normal [facility] CBC AUTO DIFFon 04-13-2022 BASO # 0.1 103/ul Normal 0.0-0.1 [facility] Comment on above: Performed By: #### C VDTBH #### [facility] [address] [place] [address] Dr. Reema Mireles Basophils/100 WBC (Bld) 0.6 % Normal 0.2-2.0 [facility] Comment on above: Performed By: #### C VDTBH #### [facility] [address] [address] [address] Reema Mireles EO # 0.0 103/ul Normal 0.0-0.7 [facility] Comment on above: Performed By: #### C VDTBH #### [facility] [address] [place] [address] Dr. Reema Mireles Eosinophils/100 WBC (Bld) 0.2 % Critically low 0.9-7.0 [facility] Comment on above: Performed By: #### C VDTBH #### [facility] [address] [address] [address] Reema Mireles Erythrocyte distribution width (RBC) [Ratio] 11.4 % Normal 11.0-15.0 [facility] Comment on above: Performed By: #### C VDTBH #### [facility] [address] [place] [address] Dr. Reema Mireles Hematocrit (Bld) [Volume fraction] 38.3 % Normal 36.0-48.0 [facility] Comment on above: Performed By: #### C VDTBH #### [facility] [address] [place] [address] Dr. Reema Mireles Hemoglobin (Bld) [Mass/Vol] 13.4 g/dL Normal 12.0-16.0 [facility] Comment on above: Performed By: #### C VDTBH #### [facility] [address] [place] [address] Dr. Reema Mireles IG # 0.01 10e3/ul Normal 0.00-0.03 [facility] Comment on above: Performed By: #### C VDTBH #### [facility] [address] [place] [address] Dr. Reema Mireles IG % 0.1 % Normal 0.0-0.5 [facility] Comment on above: Performed By: #### C VDTBH #### [facility] [address] [place] [address] Dr. Reema Mireles LYMPH # 1.8 103/ul Normal 1.2-3.8 [facility] Comment on above: Performed By: #### C VDTBH #### [facility] [address] [place] [address] Dr. Reema Mireles Lymphocytes/100 WBC (Bld) 22.2 % Normal 20.5-60.0 [facility] Comment on above: Performed By: #### C VDTBH #### [facility] [address] [place] [address] Dr. Reema Mireles MANUAL DIFF REQ NO Normal [facility] Comment on above: Performed By: #### C VDTBH #### [facility] [address] [place] [address] Dr. Reema Mireles MCH (RBC) [Entitic mass] 30.6 pg Normal 26.7-34.0 [facility] Comment on above: Performed By: #### C VDTBH #### [facility] [address] [place] [address] Dr. Reema Mireles MCHC (RBC) [Mass/Vol] 35.0 g/dL Normal 29.9-35.2 [facility] Comment on above: Performed By: #### C VDTBH #### [facility] [address] [place] [address] Dr. Reema Mireles MCV (RBC) [Entitic vol] 87.4 fL Normal 81.0-99.0 [facility] Comment on above: Performed By: #### C VDTBH #### [facility] [address] [place] [address] Dr. Reema Mireles MONO # 0.7 103/ul Normal 0.3-0.8 [facility] Comment on above: Performed By: #### C VDTBH #### [facility] [address] [place] [address] Dr. Reema Mireles Monocytes/100 WBC (Bld) 8.2 % Normal 1.7-12.0 [facility] Comment on above: Performed By: #### C VDTBH #### [facility] [address] [place] [address] Dr. Reema Mireles NEUT # 5.5 103/ul Normal 1.4-6.5 [facility] Comment on above: Performed By: #### C VDTBH #### [facility] [address] [place] [address] Dr. Reema Mireles Neutrophils/100 WBC (Bld) 68.7 % Normal 43.0-75.0 [facility] Comment on above: Performed By: #### C VDTBH #### [facility] [address] [place] [address] Dr. Reema Mireles Platelet mean volume (Bld) [Entitic vol] 10.1 fL Normal 9.5-13.5 [facility] Comment on above: Performed By: #### C VDTBH #### [facility] [address] [place] [address] Dr. Reema Mireles PLT 404 103/ul Normal 150-450 [facility] Comment on above: Performed By: #### C VDTBH #### [facility] [address] [place] [address] Dr. Reema Mireles RBC 4.38 106/ul Normal 4.20-5.40 [facility] Comment on above: Performed By: #### C VDTBH #### [facility] [address] [place], [place] [address] Dr. Reema Mireles WBC 8.0 103/ul Normal 4.0-11.0 [facility] Comment on above: Performed By: #### C VDTBH #### [facility] [address] [place], [place] [address] HEAD WO CONon [...] AURELIA CARLOS Date: 2022-04-13 16:29 Normal [facility] Discharge Instructionson Discharge Instructions [id number] #[id number]:127 Normal [facility] ED Note-Physicianon 04-13-20 ED Note-Physician Basic Information Time Seen: Lata Hardy M.D. 04/12/2022 19:56 Chief Complaint Pt. presents to the ed with c/o headache and vertigo since thursday. Pt. was seen at [facility] and started on prednisone. pt. stopped taking [...] The patient states she was seen at [facility] discharged home. She went to urgent care [...] neurological deficit. She has been seen at [facility] and started on prednisone. Possible her symptoms [...] ADRYAN MARIE In 3 days 04/15/2022 EDT [facility] [id number]- Business (1) Additional Instructions: Return to the [...] Diagnostic Results No qualifying data available. Normal [facility] Comment on above: Result Comment: Elec tronically Signed By: Antony Villa, Lata Baxter\.br\Date and Time Signed: 04/13/22 04:56 EDT ER URINE PROFILEon 2 Bilirubin Ql (U) Negative Normal NEGATIVE [facility] Comment on above: Performed By: #### P REGU, ERUR #### [facility] [address] [address] [address] Reema Mireles Clarity (U) CLEAR Normal CLEAR [facility] Comment on above: Performed By: #### P REGU, ERUR #### [facility] [address] [address] [address] Reema Mireles Color (U) LT. YELLOW Normal YELLOW [facility] Comment on above: Performed By: #### P REGU, ERUR #### [facility] [address] [address] [address] Reema Mireles ERUAHD A micrscopic examination will be performed if indicated. Normal [facility] Comment on above: Performed By: #### P REGU, ERUR #### [facility] [address] [address] [address] Reema Mireles Glucose Ql (U) Negative Normal NEGATIVE [facility] Comment on above: Performed By: #### P REGU, ERUR #### [facility] [address] [place] [address] Dr. Reema Mireles Hemoglobin Ql (U) Negative Normal NEGATIVE [facility] Comment on above: Performed By: #### P REGU, ERUR #### [facility] [address] [place] [address] Dr. Reema Mireles Ketones Ql (U) Negative Normal NEGATIVE [facility] Comment on above: Performed By: #### P REGU, ERUR #### [facility] [address] [place] [address] Dr. Reema Mireles LEUKOCYTES Negative Normal NEGATIVE [facility] Comment on above: Performed By: #### P REGU, ERUR #### [facility] [address] [place] [address] Dr. Reema Mireles Nitrite Ql (U) Negative Normal NEGATIVE [facility] Comment on above: Performed By: #### P REGU, ERUR #### [facility] [address] [place] [address] Dr. Reema Mireles pH (U) 6.5 [pH] Normal 5-9 [facility] Comment on above: Performed By: #### P REGU, ERUR #### [facility] [address] [place] [address] Dr. Reema Mireles SPEC GRAVITY 1.005 Normal 1.005-<=1.025 [facility] Comment on above: Performed By: #### P REGU, ERUR #### [facility] [address] [place] [address] Dr. Reema Mireles UA PROTEIN Negative Normal NEGATIVE/ TRACE [facility] Comment on above: Performed By: #### P REGU, ERUR #### [facility] [address] [place] [address] Dr. Reema Mireles UR MICRO IND NOT INDICATED Normal [facility] Comment on above: Performed By: #### P REGU, ERUR #### [facility] [address] [place] [address] Dr. Reema Mireles Urobilinogen Qn (U) 0.2 {Renny'U}/dL Normal 0.2 - 1. 0 [facility] Comment on above: Performed By: #### P REGU, ERUR #### [facility] [address] [address] [address] Reema Mireles URon 04-13-2022 , QUAL Negative Normal NEGATIVE [facility] Comment on above: Performed By: #### P REGU, ERUR #### [facility] [address] [address] [address] Reema Mireles PROF CHEM 8 (BAS METB)on Anion gap [Moles/Vol] 14.0 mmol/L Normal [facility] Comment on above: Performed By: #### B MP, TSH #### [facility] [address] [place] [address] Dr. Reema Mireles Calcium [Mass/Vol] 9.2 mg/dL Normal 8.5-10.1 [facility] Comment on above: Performed By: #### B GURPREET, TSH #### [facility] [address] [address] [address] Reema Mireles Chloride [Moles/Vol] 102 mmol/L Normal 98-107 [facility] Comment on above: Performed By: #### B GURPREET, TSH #### [facility] [address] [address] [address] Reema Mireles CO2 [Moles/Vol] 26.3 mmol/L Normal 21.0-32.0 [facility] Comment on above: Performed By: #### B MP, TSH #### [facility] [address] [address] [address] Reema Mireles Creatinine [Mass/Vol] 0.65 mg/dL Normal 0.55-1.02 [facility] Comment on above: Performed By: #### B MP, TSH #### [facility] [address] [place] [address] Dr. Reema Mireles EGFR-AF BAHRAINI >60 Normal >=60 [facility] Comment on above: Performed By: #### B MP, TSH #### [facility] [address] [address] [address] Reema Mireles EGFR-NON AF BAHRAINI >60 Normal >=60 [facility] Comment on above: Performed By: #### B GURPREET, TSH #### [facility] [address] [address] [address] Reema Mireles Glucose [Mass/Vol] 92 mg/dL Normal 74-106 [facility] Comment on above: Performed By: #### B GURPREET, TSH #### [facility] [address] [address] [address] Reema Mireles Potassium [Moles/Vol] 3.3 mmol/L Critically low 3.5-5.1 [facility] Comment on above: Performed By: #### B GURPREET, TSH #### [facility] [address] [place] [address] Dr. Reema Mireles Sodium [Moles/Vol] 139 mmol/L Normal 136-145 [facility] Comment on above: Performed By: #### B GURPREET, TSH #### [facility] [address] [address] [address] Reema Mireles Urea nitrogen [Mass/Vol] 8.0 mg/dL Normal 7.0-18.0 [facility] Comment on above: Performed By: #### B GURPREET, TSH #### [facility] [address] [place] [address] Dr. Reema Mireles Urea nitrogen/Creatinine [Mass ratio] 12.3 mg/mg Normal [facility] Comment on above: Performed By: #### B GURPREET, TSH #### [facility] [address] [place] [address] Dr. Reema Mireles TSHon 04-13-2022 TSH 1.293 uIU/mL Normal 0.358-3.740 [facility] Comment on above: Performed By: #### B GURPREET, TSH #### [facility] [address] [place] [address] Dr. Reema Mireles Consent for Treatmenton 03-28 Consent for Treatment [id number] Normal [facility] ED Clinical Summaryon 2021 ED Clinical Summary [address] [address] ED Clinical Summary Person Information Name: JUANPABLO CHAPARRO [place] Age: 21 Years : 2000 Sex: Female Language: Puerto Rican PCP: ADRYAN MARIE MD Marital Status: Single Phone: [phone] Visit Id: Visit Reason: Vertigo - recurrent; [...] 04/12/2022 21:07:38 04/12/2022 21:07:38 04/12/2022 21:07:38 ADDRESS: [address] [place] [phone] PHYS DOC NOTES: MEDICAL INFORMATION: Prescriptions Given: PATIENT EDUCATION INFORMATION: Instructions: General Headache Without Cause; Vertigo Follow up: With: Address: When: ADRYAN MARIE [address] [place], [place] [id number] [employer] (1) In 3 days 04/15/2022 Comments: Return to the emergency room if her headache gets worse, vertigo becomes persistent or any new symptoms DIAGNOSIS: 1:Vertigo; 2:Headache Normal [facility] ED Patient Education Noteon 04-12-2022 ED [...] you feel dizzy. General instructions ? Take mrqc-onw-vyotlyz and prescription medicines only as told by [...] 06/24/2006 Document Revised: 08/08/2019 Document Reviewed: 08/08/2019 [employer] Patient Education ? 2020 [employer] Neurology General Headache Without Cause A [...] with your condition: Managing pain ? Take fvxf-umi-hbwskkz and prescription medicines only as told by [...] of beer (more content not included)... Normal [facility] ED Patient Summaryon 022 ED Patient Summary [address] [address] Patient Discharge Instructions Person Information Name: JUANPABLO CHAPARRO Age: 21 Years Arrival Date: 04/12/2022 19:22:40 Discharge Diagnosis: 1:Vertigo; 2:Headache Primary Care Physician: ADRYAN MARIE MD Provider Information Primary Provider: Antony Villa, Lata Baxter Advanced Recreation Programmer:None The exam and treatment you received in the Emergency Department were for an urgent problem and are not intended as complete care. It is important that you follow up with a doctor, nurse practitioner, or physician?s marketing communications assistant for ongoing care. If your symptoms [...] Follow-up Instructions: With: Address: When: ADRYAN MARIE [address] [place], [place] [id number] [employer] ([email or web address] In 3 days 04/15/2022 Comments: Return to [...] opioids can be used to help relieve [id number] pain and are often prescribed following a [...] addiction, tel (more content not included)... Normal [facility] CBC AUTO DIFFon 04-09-2022 BASO # 0.1 103/ul Normal 0.0-0.1 [facility] Comment on above: Performed By: #### B MP, TSH #### [facility] [address] [address] [address] Reema Mireles Basophils/100 WBC (Bld) 0.5 % Normal 0.2-2.0 [facility] Comment on above: Performed By: #### B MP, TSH #### [facility] [address] [place] [address] Dr. Reema Mireles EO # 0.1 103/ul Normal 0.0-0.7 [facility] Comment on above: Performed By: #### B MP, TSH #### [facility] [address] [place] [address] Dr. Reema Mireles Eosinophils/100 WBC (Bld) 1.0 % Normal 0.9-7.0 [facility] Comment on above: Performed By: #### B MP, TSH #### [facility] [address] [place] [address] Dr. Reema Mireles Erythrocyte distribution width (RBC) [Ratio] 11.7 % Normal 11.0-15.0 [facility] Comment on above: Performed By: #### B MP, TSH #### [facility] [address] [place] [address] Dr. Reema Mireles Hematocrit (Bld) [Volume fraction] 37.2 % Normal 36.0-48.0 [facility] Comment on above: Performed By: #### B MP, TSH #### [facility] [address] [place] [address] Dr. Reema Mireles Hemoglobin (Bld) [Mass/Vol] 12.8 g/dL Normal 12.0-16.0 [facility] Comment on above: Performed By: #### B GURPREET, TSH #### [facility] [address] [place] [address] Dr. Reema Mireles IG # 0.02 10e3/ul Normal 0.00-0.03 [facility] Comment on above: Performed By: #### B MP, TSH #### [facility] [address] [place] [address] Dr. Reema Mireles IG % 0.2 % Normal 0.0-0.5 [facility] Comment on above: Performed By: #### B MP, TSH #### [facility] [address] [place] [address] Dr. Reema Mireles LYMPH # 1.8 103/ul Normal 1.2-3.8 [facility] Comment on above: Performed By: #### B MP, TSH #### [facility] [address] [place] [address] Dr. Reema Mireles Lymphocytes/100 WBC (Bld) 19.0 % Critically low 20.5-60.0 [facility] Comment on above: Performed By: #### B MP, TSH #### [facility] [address] [place] [address] Dr. Reema Mireles MANUAL DIFF REQ NO Normal [facility] Comment on above: Performed By: #### B MP, TSH #### [facility] [address] [place] [address] Dr. Reema Mireles MCH (RBC) [Entitic mass] 30.4 pg Normal 26.7-34.0 [facility] Comment on above: Performed By: #### B MP, TSH #### [facility] [address] [place] [address] Dr. Reema Mireles MCHC (RBC) [Mass/Vol] 34.4 g/dL Normal 29.9-35.2 [facility] Comment on above: Performed By: #### B MP, TSH #### [facility] [address] [place] [address] Dr. Reema Mireles MCV (RBC) [Entitic vol] 88.4 fL Normal 81.0-99.0 [facility] Comment on above: Performed By: #### B MP, TSH #### [facility] [address] [place] [address] Dr. Reema Mireles MONO # 0.7 103/ul Normal 0.3-0.8 [facility] Comment on above: Performed By: #### B MP, TSH #### [facility] [address] [place] [address] Dr. Reema Mireles Monocytes/100 WBC (Bld) 6.8 % Normal 1.7-12.0 [facility] Comment on above: Performed By: #### B MP, TSH #### [facility] [address] [place] [address] Dr. Reema Mireles NEUT # 7.0 103/ul Critically high 1.4-6.5 [facility] Comment on above: Performed By: #### B GURPREET, TSH #### [facility] [address] [place] [address] Dr. Reema Mireles Neutrophils/100 WBC (Bld) 72.5 % Normal 43.0-75.0 [facility] Comment on above: Performed By: #### B GURPREET, TSH #### [facility] [address] [place] [address] Dr. Reema Mireles Platelet mean volume (Bld) [Entitic vol] 10.3 fL Normal 9.5-13.5 [facility] Comment on above: Performed By: #### B GURPREET, TSH #### [facility] [address] [place] [address] Dr. Reema Mireles PLT 358 103/ul Normal 150-450 [facility] Comment on above: Performed By: #### Inna VÁZQUEZ, TSH #### [facility] [address] [place] [address] Dr. Reema Mireles RBC 4.21 106/ul Normal 4.20-5.40 [facility] Comment on above: Performed By: #### B GURPREET, TSH #### [facility] [address] [place] [address] Dr. Reema Mireles WBC 9.7 103/ul Normal 4.0-11.0 [facility] Comment on above: Performed By: #### B GURPREET, TSH #### [facility] [address] [place] [address] Dr. Reema Mireles CULTURE BLOODon 04-09-2022 Microscopic examination of blood, culture Culture Observations: NO GROWTH AT 5 DAYS. Normal [facility] Comment on above: Performed By: #### B GURPREET, TSH #### [facility] [address] [place] [address] Dr. Reema Mireles ER URINE PROFILEon 2 Bilirubin Ql (U) Negative Normal NEGATIVE [facility] Comment on above: Performed By: #### B GURPREET, TSH #### [facility] [address] [place] [address] Dr. Reema Mireles Clarity (U) CLEAR Normal CLEAR [facility] Comment on above: Performed By: #### B MP, TSH #### [facility] [address] [place] [address] Dr. Reema Mireles Color (U) LT. YELLOW Normal YELLOW [facility] Comment on above: Performed By: #### B MP, TSH #### [facility] [address] [place] [address] Dr. Reema Mireles ERUAHD A micrscopic examination will be performed if indicated. Normal [facility] Comment on above: Performed By: #### B MP, TSH #### [facility] [address] [place] [address] Dr. Reema Mireles Glucose Ql (U) Negative Normal NEGATIVE [facility] Comment on above: Performed By: #### B MP, TSH #### [facility] [address] [place] [address] Dr. Reema Mireles Hemoglobin Ql (U) TRACE-INTACT Abnormal NEGATIVE [facility] Comment on above: Performed By: #### B MP, TSH #### [facility] [address] [place] [address] Dr. Reema Mireles Ketones Ql (U) Negative Normal NEGATIVE [facility] Comment on above: Performed By: #### B MP, TSH #### [facility] [address] [place] [address] Dr. Reema Mireles LEUKOCYTES Negative Normal NEGATIVE [facility] Comment on above: Performed By: #### B MP, TSH #### [facility] [address] [place] [address] Dr. Reema Mireles Nitrite Ql (U) Negative Normal NEGATIVE [facility] Comment on above: Performed By: #### B MP, TSH #### [facility] [address] [place] [address] Dr. Reema Mireles pH (U) 5.5 [pH] Normal 5-9 [facility] Comment on above: Performed By: #### B MP, TSH #### [facility] [address] [place] [address] Dr. Reema Mireles SPEC GRAVITY <=1.005 Abnormal 1.005-<=1.025 [facility] Comment on above: Performed By: #### B MP, TSH #### [facility] [address] [place] [address] Dr. Reema Mireles UA PROTEIN Negative Normal NEGATIVE/ TRACE [facility] Comment on above: Performed By: #### B MP, TSH #### [facility] [address] [place] [address] Dr. Reema Mireles UR MICRO IND INDICATED Normal [facility] Comment on above: Performed By: #### B MP, TSH #### [facility] [address] [place] [address] Dr. Reema Mireles Urobilinogen Qn (U) 0.2 {Renny'U}/dL Normal 0.2 - 1. 0 [facility] Comment on above: Performed By: #### B GURPREET, TSH #### [facility] [address] [place] [address] Dr. Reema Mireles LACTATE/LACTIC ACIDon 2021 Lactate [Moles/Vol] 2.2 mmol/L Critically high 0.4-1.9 [facility] Comment on above: Performed By: #### B MP, TSH #### [facility] [address] [place] [address] Dr. Reema Mireles URon 04-09-2022 , QUAL Negative Normal NEGATIVE [facility] Comment on above: Performed By: #### B GURPREET, TSH #### [facility] [address] [place] [address] Dr. Reema Mireles PROF 14(COMP METB)on 022 Albumin [Mass/Vol] 4.5 g/dL Normal 3.4-5.0 [facility] Comment on above: Performed By: #### C MP #### [facility] [address] [place] [address] Dr. Reema Mireles Albumin/Globulin [Mass ratio] 1.3 {ratio} Normal [facility] Comment on above: Performed By: #### C MP #### [facility] [address] [place] [address] Dr. Reema Mireles ALP [Catalytic activity/Vol] 83 U/L Normal 46-116 [facility] Comment on above: Performed By: #### C MP #### [facility] [address] [address] [address] Reema Mireles ALT [Catalytic activity/Vol] 26 U/L Normal 14-59 [facility] Comment on above: Performed By: #### C MP #### [facility] [address] [address] [address] Reema Mireles Anion gap [Moles/Vol] 14.9 mmol/L Normal [facility] Comment on above: Performed By: #### C MP #### [facility] [address] [place] [address] Dr. Reema Mireles AST [Catalytic activity/Vol] 12 U/L Critically low 15-37 [facility] Comment on above: Performed By: #### C MP #### [facility] [address] [place] [address] Dr. Reema Mireles Bilirubin [Mass/Vol] 0.3 mg/dL Normal 0.2-1.0 [facility] Comment on above: Performed By: #### C MP #### [facility] [address] [place] [address] Dr. Reema Mireles Calcium [Mass/Vol] 9.6 mg/dL Normal 8.5-10.1 [facility] Comment on above: Performed By: #### C MP #### [facility] [address] [place] [address] Dr. Reema Mireles Chloride [Moles/Vol] 103 mmol/L Normal 98-107 [facility] Comment on above: Performed By: #### C MP #### [facility] [address] [address] [address] Reema Mireles CO2 [Moles/Vol] 24.4 mmol/L Normal 21.0-32.0 [facility] Comment on above: Performed By: #### C MP #### [facility] [address] [address] [address] Reema Mireles Creatinine [Mass/Vol] 0.87 mg/dL Normal 0.55-1.02 [facility] Comment on above: Performed By: #### C MP #### [facility] [address] [address] [address] Reema Mireles EGFR-AF BAHRAINI >60 Normal >=60 [facility] Comment on above: Performed By: #### C MP #### [facility] [address] [address] [address] Reema Mireles EGFR-NON AF BAHRAINI >60 Normal >=60 [facility] Comment on above: Performed By: #### C MP #### [facility] [address] [address] [address] Reema Mireles Globulin (S) [Mass/Vol] 3.5 g/dL Normal [facility] Comment on above: Performed By: #### C MP #### [facility] [address] [place] [address] Dr. Reema Mireles Glucose [Mass/Vol] 109 mg/dL Critically high 74-106 [facility] Comment on above: Performed By: #### C MP #### [facility] [address] [address] [address] Reema Mireles Potassium [Moles/Vol] 3.3 mmol/L Critically low 3.5-5.1 [facility] Comment on above: Performed By: #### C MP #### [facility] [address] [place] [address] Dr. Reema Mireles Protein [Mass/Vol] 8.0 g/dL Normal 6.4-8.2 [facility] Comment on above: Performed By: #### C MP #### [facility] [address] [address] [address] Reema Mireles Sodium [Moles/Vol] 139 mmol/L Normal 136-145 [facility] Comment on above: Performed By: #### C MP #### [facility] [address] [address] [address] Reema Mireles Urea nitrogen [Mass/Vol] 9.0 mg/dL Normal 7.0-18.0 [facility] Comment on above: Performed By: #### C MP #### [facility] [address] [place] [address] Dr. Reema Mireles Urea nitrogen/Creatinine [Mass ratio] 10.3 mg/mg Normal [facility] Comment on above: Performed By: #### C MP #### [facility] [address] [place] [address] Dr. Reema Mireles URINE MICROSCOPIC ONLYon BACTERIA NONE SEEN Normal NONE SEEN [facility] Comment on above: Performed By: #### B MP, TSH #### [facility] [address] [place] [address] Dr. Reema Mireles Bacteria identified Cx Nom (U) NOT INDICATED Normal [facility] Comment on above: Performed By: #### B MP, TSH #### [facility] [address] [place] [address] Dr. Reema Mireles CAST NONE SEEN Normal NONE SEEN [facility] Comment on above: Performed By: #### B MP, TSH #### [facility] [address] [place] [address] Dr. Reema Mireles Crystals LM Nom (Urine sed) NONE SEEN Normal NONE SEEN [facility] Comment on above: Performed By: #### B MP, TSH #### [facility] [address] [place] [address] Dr. Reema Mireles Epithelial cells LM Ql (Urine sed) RARE Normal NONE SEEN /RARE [facility] Comment on above: Performed By: #### B MP, TSH #### [facility] [address] [place] [address] Dr. Reema Mireles MUCOUS NONE SEEN Normal NONE SEEN [facility] Comment on above: Performed By: #### B MP, TSH #### [facility] [address] [place] [address] Dr. Reema Mireles RBC 0-2 Normal 0-2 [facility] Comment on above: Performed By: #### B MP, TSH #### [facility] [address] [place] [address] Dr. Reema Mireles WBC NONE SEEN Normal NONE SEEN [facility] Comment on above: Performed By: #### B MP, TSH #### [facility] [address] [place] [address] Dr. Reema Mireles CBC AUTO DIFFon 10-25-2021 BASO # 0.0 103/ul Normal 0.0-0.1 [facility] Comment on above: Performed By: #### C BC #### [facility] [address] [place] [address] Dr. Reema Mireles Basophils/100 WBC (Bld) 0.6 % Normal 0.2-2.0 [facility] Comment on above: Performed By: #### C BC #### [facility] [address] [place] [address] Dr. Reema Mireles EO # 0.1 103/ul Normal 0.0-0.7 [facility] Comment on above: Performed By: #### C BC #### [facility] [address] [place] [address] Dr. Reema Mireles Eosinophils/100 WBC (Bld) 1.8 % Normal 0.9-7.0 [facility] Comment on above: Performed By: #### C BC #### [facility] [address] [place] [address] Dr. Reema Mireles Erythrocyte distribution width (RBC) [Ratio] 11.9 % Normal 11.0-15.0 [facility] Comment on above: Performed By: #### C BC #### [facility] [address] [place] [address] Dr. Reema Mireles Hematocrit (Bld) [Volume fraction] 38.1 % Normal 36.0-48.0 [facility] Comment on above: Performed By: #### C BC #### [facility] [address] [place] [address] Dr. Reema Mireles Hemoglobin (Bld) [Mass/Vol] 13.1 g/dL Normal 12.0-16.0 [facility] Comment on above: Performed By: #### C BC #### [facility] [address] [place] [address] Dr. Reema Mireles IG # 0.01 10e3/ul Normal 0.00-0.03 [facility] Comment on above: Performed By: #### C BC #### [facility] [address] [place] [address] Dr. Reema Mireles IG % 0.1 % Normal 0.0-0.5 [facility] Comment on above: Performed By: #### C BC #### [facility] [address] [place] [address] Dr. Reema Mireles LYMPH # 1.9 103/ul Normal 1.2-3.8 [facility] Comment on above: Performed By: #### C BC #### [facility] [address] [place] [address] Dr. Reema Mireles Lymphocytes/100 WBC (Bld) 27.8 % Normal 20.5-60.0 [facility] Comment on above: Performed By: #### C BC #### [facility] [address] [place] [address] Dr. Reema Mireles MANUAL DIFF REQ NO Normal [facility] Comment on above: Performed By: #### C BC #### [facility] [address] [place] [address] Dr. Reema Mireles MCH (RBC) [Entitic mass] 30.5 pg Normal 26.7-34.0 [facility] Comment on above: Performed By: #### C BC #### [facility] [address] [place] [address] Dr. Reema Mireles MCHC (RBC) [Mass/Vol] 34.4 g/dL Normal 29.9-35.2 [facility] Comment on above: Performed By: #### C BC #### [facility] [address] [place] [address] Dr. Reema Mireles MCV (RBC) [Entitic vol] 88.8 fL Normal 81.0-99.0 [facility] Comment on above: Performed By: #### C BC #### [facility] [address] [place] [address] Dr. Reema Mireles MONO # 0.8 103/ul Normal 0.3-0.8 [facility] Comment on above: Performed By: #### C BC #### [facility] [address] [place] [address] Dr. Reema Mireles Monocytes/100 WBC (Bld) 11.2 % Normal 1.7-12.0 [facility] Comment on above: Performed By: #### C BC #### [facility] [address] [place] [address] Dr. Reema Mireles NEUT # 4.0 103/ul Normal 1.4-6.5 [facility] Comment on above: Performed By: #### C BC #### [facility] [address] [place] [address] Dr. Reema Mireles Neutrophils/100 WBC (Bld) 58.5 % Normal 43.0-75.0 [facility] Comment on above: Performed By: #### C BC #### [facility] [address] [place] [address] Dr. Reema Mireles Platelet mean volume (Bld) [Entitic vol] 10.0 fL Normal 9.5-13.5 [facility] Comment on above: Performed By: #### C BC #### [facility] [address] [place] [address] Dr. Reema Mireles PLT 361 103/ul Normal 150-450 [facility] Comment on above: Performed By: #### C BC #### [facility] [address] [place] [address] Dr. Reema Mireles RBC 4.29 106/ul Normal 4.20-5.40 [facility] Comment on above: Performed By: #### C BC #### [facility] [address] [place] [address] Dr. Reema Mireles WBC 6.8 103/ul Normal 4.0-11.0 [facility] Comment on above: Performed By: #### C BC #### [facility] [address] [place] [address] Dr. Reema Mireles PREG QUANT HCGon 10-25-2021 HCG QUANT 1 mIU/mL Normal [facility] Comment on above: Performed By: #### P REGQNT #### [facility] [address] [place] [address] Dr. Reema Mireles HCG RANGE SEE BELOW Normal [facility] Comment on above: Result Comment: 5-50 0-1 WEEK 40-300 1-2 WEEKS 100-1,000 2-3 WEEKS 500-6,000 3-4 WEEKS 5,000-200,000 1-2 MONTHS 10,000-100,000 2-3 MONTHS 3,000-50,000 2ND TRIMESTER 1,000-50,000 3RD TRIMESTER Performed By: #### P REGQNT #### [facility] [address] [address] [address] Reema Mireles Covid-19 PCR ([facility])on 09-29 SARS-CoV-2 (COVID-19) RNA FRANKIE+probe Ql (Unsp spec) Not detected Normal NOT DETECTED [facility] Comment on above: Result Comment: This test is not yet approved or cleared by the [place] FDA. When there are no FDA-approved or cleared tests available, and other criteria are met, FDA can make tests available under an emergency access mechanism called an Emergency Use Authorization (EUA). The EUA for this test is supported by the Supervisor Public Health Nursing of Health and Human Service's (HHS's) declaration [...] SARS-CoV-2. Performed By: #### C VDTB #### [facility] [address] [place], [place] [address] Dr. Reema Mireles Vital Signs Date Time Vital Sign Value Performing Clinician Facility 11-12-2023 14:15-0500 Body weight 108.86 kg [employer] Work Phone: [facility] 11-12-2023 14:15-0500 Diastolic blood pressure 72 mm[Hg] [employer] Work Phone: [facility] 11-12-2023 14:15-0500 Systolic blood pressure 122 mm[Hg] Devan Tello DO Work Phone: [facility] 04-12-2022 21:04-0400 Diastolic blood pressure 84 mm[Hg] [facility] 04-12-2022 21:04-0400 Heart rate 82 /min [facility] 04-12-2022 21:04-0400 Respiratory rate 16 /min [facility] 04-12-2022 21:04-0400 SaO2% (BldA) [Mass fraction] 98 % [facility] 04-12-2022 21:04-0400 Systolic blood pressure 120 mm[Hg] [facility] 04-12-2022 20:32-0400 gluc 80 mg/dL [facility] Comment on above: Result Comment: not taken due to pt refu jimmie of any injection 04-12-2022 20:32-0400 gluc [facility] 04-12-2022 19:25-0400 Body temperature 99.32 [degF] [facility] 04-12-2022 19:25-0400 Diastolic blood pressure 84 mm[Hg] [facility] 04-12-2022 19:25-0400 Heart rate 90 /min [facility] 04-12-2022 19:25-0400 Respiratory rate 18 /min [facility] 04-12-2022 19:25-0400 SaO2% (BldA) [Mass fraction] 98 % [facility] 04-12-2022 19:25-0400 Systolic blood pressure 118 mm[Hg] [facility] 04-09-2022 12:20-0400 Body height 165.1 cm Deonna Back Other [employer] Other 04-09-2022 12:20-0400 Body mass index (BMI) [Ratio] 35.61 kg/m2 Deonna Cavanaughmond Other [employer] Other 04-09-2022 12:20-0400 Body temperature 98.4 [degF] Deonna Nazanin Other [employer] Other 04-09-2022 12:20-0400 Body weight 97.07 kg Deonna Nazanin Other [employer] Other 04-09-2022 12:20-0400 Diastolic blood pressure 83 mm[Hg] Deonna Nazanin Other [employer] Other 04-09-2022 12:20-0400 Respiratory rate 18 /min Deonna Cavanaughmond Other [employer] Other 04-09-2022 12:20-0400 SaO2% (BldA) [Mass fraction] 99 % Deonna Nazanin Other [employer] Other 04-09-2022 12:20-0400 Systolic blood pressure 135 mm[Hg] Deonna Nazanin Other [employer] Other 04-02-2022 19:00-0400 Body height 165.1 cm Deonna Nazanin Other [employer] Other 04-02-2022 19:00-0400 Body mass index (BMI) [Ratio] 35.71 kg/m2 Deonna Nazanin Other [employer] Other 04-02-2022 19:00-0400 Body temperature 98.1 [degF] Deonna Nazanin Other [employer] Other 04-02-2022 19:00-0400 Body weight 97.34 kg Deonna Back Other [employer] Other 04-02-2022 19:00-0400 Diastolic blood pressure 83 mm[Hg] Deonna Back Other [employer] Other 04-02-2022 19:00-0400 Respiratory rate 18 /min Deonna Back Other [employer] Other 04-02-2022 19:00-0400 SaO2% (BldA) [Mass fraction] 100 % Deonna Back Other [employer] Other 04-02-2022 19:00-0400 Systolic blood pressure 134 mm[Hg] Deonna Back Other [employer] Other Encounters Encounter Date Encounter Type Care [...] 04-12-2022 End: 04-12-2022 Emergency department patient visit [facility] Start: 04-10-2022 End: 04-10-2022 ambulatory Deonna Back Other [employer] Other Start: 04-10-2022 Telephone encounter Deonna Back [facility] Start: 04-09-2022 End: 04-09-2022 ambulatory Deonna Back Other [employer] Other Start: 04-09-2022 Office outpatient vi sit 15 minutes Deonna Back [facility] Start: 04-09-2022 End: 04-09-[address] LUIS ANTONIO SUTTON Facility:[facility] Start: 04-02-2022 (URG) Urgent Care Visit Deonna Silva d [facility] Start: 04-02-2022 End: 04-02-2022 ambulatory Deonna Back Other [employer] Other Start: 10-25-2021 End: 10-25-[address] ADRYAN MARIE Facility:[facility] Start: 10-24-2021 Encounter for preprocedural laboratory examination DR DEVAN TELLO [facility] Start: 10-22-2021 End: 10-23-[address] ADRYAN MARIE Facility:[facility] Start: 10-22-2021 End: 10-23-2021 Encounter for preprocedural laboratory examination DR ADRYAN MARIE Facility:[facility] Start: 10-19-2021 Encounter for other preprocedural examination DR DEVAN TELLO [facility] Start: 10-17-2021 End: 10-18-[address] ADRYAN MARIE Facility:[facility] Start: 10-17-2021 End: 10-18-2021 Encounter for other preprocedural examination DR ADRYAN MARIE Facility:[facility] Procedures Date Procedure Procedure Detail Performing Clinician Start: 11-12-2023 Urnls dip stick/tabl et rgnt non-auto w/o micrscp Dvean Tello DO Work Phone: Start: 11-03-2023 ALL CBC WITH AUTO DIFF Cydney FARR Work Phone: Plan of Treatment Date Care Activity Detail Author Start: 11-26-2023 End: 11-26-2023 Patient encounter procedure 11/26/2023 11:00 AM EST Routine [facility] [address] [place] [id number] Cydney Leos PA [address] [place] [address] [facility] Start: 11-26-2023 End: 11-26-2023 Professional / ancillary services management 11/26/2023 10:30 AM EST Ancillary Procedure [facility] [address] [place] [id number] [facility] Start: 11-12-2023 End: 11-12-2024 US for US OB SCAN FOR GROWTH Imaging Routine Excessive growth affecting management of in third trimester, single or unspecified fetus Expected: 11/12/2023 (Approximate), Expires: 11/12/2024 [facility] Work Phone: Comment on above: Expected: 11/12/2023 (Approximate), Expires: 11/12/2024 Start: 11-12-2023 End: 11-12-2023 Patient encounter procedure 11/12/2023 10:50 AM EST Routine [facility] [address] [facility] [place] [address] Devan Tello, [address] [place] [address] [facility] Payers Date Payer Category Payer Unknown [facility] [employer] [id number] 2023-Present [address] [place] [address] [id number] 2023 Unknown [id number] 2001 Unknown [id number] 2.16.840.1.730340.3.579.2. 593 2001 Unknown [id number] 2.16.840.1.178349.3.579.2. 593 2001 Unknown [id number] 2.16.840.1.775438.3.579.2. 593 2001 Unknown [id number] 2.16.840.1.333655.3.579.2. 593 2001 Unknown [id number] 2.16.840.1.037105.3.579.2. 593 2001 Unknown [id number] 2.16.840.1.222163.3.579.2. 593 2001 Unknown [id number] 2.16.840.1.890913.3.579.2. 593 2001 Unknown [id number] 2.16.840.1.960177.3.579.2. 593 2001 Unknown [id number] 2.16.840.1.763958.3.579.2. 593 2001 Unknown [id number] 2.16.840.1.880212.3.579.2. 593 2001 Unknown [id number] 2.16.840.1.483100.3.579.2. 593 2001 Unknown [id number] 2.16.840.1.852380.3.579.2. 1259 2001 Unknown [id number] 2.16.840.1.725452.3.579.2. 1259 2001 Unknown [id number] 2.16.840.1.407089.3.579.2. 1259 2001 Unknown [id number] 2.16.840.1.013621.3.579.2. 1259 2001 Unknown [id number] 2.16.840.1.369410.3.579.2. [address] [facility] [id number] 2.16.840.1.169724.19 Social History Date Type Detail Facility Unknown if ever smoked [facility] [employer] Other Sex Assigned At [facility] [employer] Other Tobacco smoking status No Smoking Status Entered [facility] Start: 06-20-2023 Tobacco smoking status SDIS Tobacco smoking consumption unknown [facility] Start: 10-15-2023 Alcohol intake Lifetime non-d hermes (finding) [facility] Start: 06-20-2023 Tobacco Comment Current smoker (frequency unknown) [facility] Start: 05-06-2023 [facility] Start: 2000 Sex Assigned At Not on file [facility] Goals Date Patient Goal Desired Activity /State Personal health goal Functional Status Date Assessment Result Facility 04-12-2022 Functional Status N/A [facility] History of Present illness Narrative 11-12-2023 [...] Devan Tello DO documented in this encounter [facility] Discharge instructions 04-12-2022 Note Date & [...] help with your condition: Managing pain Take bijk-yri-gmhfgwp and prescription medicines only as told by [...] 09/14/2006 Document Revised: 04/04/2019 Document Reviewed: 04/04/2019 [employer] Patient Education 2020 [employer]. 04/12/2022 21:07:38 Vertigo Vertigo Vertigo is the [...] if you feel dizzy. General instructions Take yvjr-hsx-solpnqa and prescription medicines only as told by [...] 06/24/2006 Document Revised: 08/08/2019 Document Reviewed: 08/08/2019 [employer] Patient Education [employer]. Follow Up Care 04/12/2022 19:25:17 With:ADRYAN MARIE Address: [address] [place] [address]- Business (1) When:04/15/2022 20:55:24 Comments:Return to the emergency room if her headache gets worse, vertigo becomes persistent or any new symptoms [facility] Evaluation note 04-09-2022 Note Date [...] She was prescribed Zofran with no improvement. [employer] Other Evaluation note 04-02-2022 Note Date & [...] 3 days. No swimming for a week [employer] Other Clinical Note 10-25-2021 Note Date & Type Note Facility 10-25-2021 Note OPERATIVE NOTE PROCEDURE: Diagnostic laparoscopy. PREOPERATIVE DIAGNOSIS: Pelvic pain, dyspareunia dysmenorrhea. POSTOPERATIVE DIAGNOSIS: Pelvic pain, dyspareunia dysmenorrhea. ANESTHESIA: General. SURGEON: Devan Tello D.O. STEEL POURER HELPER: JAE Worley URINE OUTPUT: Yellow and [...] taken to Recovery Room in stable condition. [facility] Signed and Approved by: DR DEVAN TELLO . 11/01/2021 17:31:00 [facility] Evaluation + Plan note Note Date & Type Note Facility Evaluation + Plan note No data available for this section [facility] Evaluation note Note Date & Type Note Facility Evaluation note No Information [facility] [employer] Other Evaluation note Note Date & Type [...] endometriosis Hospitalization History RSV as a baby [facility] [employer] Other Progress note Note Date & Type Note Facility Progress note No data available for this section [facility] Summary Purpose Family History No Family History Records FoundNo Family History Records FoundNo Family History Records Found Advance Directives No Advanced Directives Records FoundNo Advanced Directives Records FoundNo Advanced Directives Records Found Additional Source Comments REASON FOR VISIT (unrecogniz ed section and content) Reason Comments Routine Visit Care Team (unrecognized sect ion and content) 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 Relationship Specialty Start Date End Date Adryan Marie MD [address] [place] [address] PCP - General Family Medicine 06/19/23 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 [employer] provides no warranty or guarantee of the accuracy or completeness of information in this document.
--- NOTE | 2023-12-09 09:52 | US_ITS ---
[address] [address] Patient Name: JUANPABLO CHAPARRO MRN: [id number] date: 2000 Sex: F Assigned Patient Location: US Current Patient Location: [facility] Accession/Order Number: [id number] Exam Date: 12/09/2023 09:55 Report Date: 12/09/2023 10:29 At the request of: DEVAN GEORGE Procedure: US OB BPP w non-stress EXAMINATION: US OB BPP w non-stress HISTORY: Excessive growth o36.63x0 COMPARISON: Ultrasound OB biophysical 12/01/2023 TECHNIQUE: Ultrasound biophysical profile was performed in the radiology department. BREATHING MOVEMENTS: 2.0 GROSS BODY MOVEMENTS: 2.0 TONE: 2.0 QUALITATIVE AMNIOTIC FLUID VOLUME: 2.0 PRESENTATION: CEPHALIC HEART RATE: 147.5 bpm bpm. AMNIOTIC FLUID VOLUME: 16.4 cm GESTATIONAL AGE: 33 weeks 0 days CONCLUSION: Total biophysical profile score 8.0. Electronically authenticated by: WILBERT CASIANO Date: 12/09/2023 10:29
[2023-12-09 10:12] VITALS: BP 123/75; PULSE 111
== END 2023-12-09 10:48 | disposition home or self-care (01) ==
LOC: US 08:04 → FBC 09:54
PROVIDERS: PCP Family Medicine; Visit Provider Obstetrics & Gynecology
DX: O36.63X0 Maternal care for excessive fetal growth, third trimester, not applicable or unspecified (principal); Z3A.33 33 weeks gestation of pregnancy
CPT/HCPCS: 76818

== ENCOUNTER 2023-12-12 00:06 | Outpatient (OUT) | payer OTHER, SELFPAY ==
--- OUTSIDE RECORDS SUMMARY | 2023-12-12 00:09 | XMS_ITS | CCD ---
Author Name Unknown Address [address] [place] [address] Organization [facility] Care Team Providers Care Television Picture Tube Rebuilder Name Role Phone NazaninDeonna lozoya Unavailable OSCAR, ADRYAN Primary Care Physician [phone] LESLEY, DR LUIS ANTONIO Jorge Consulting Unavailable [...] Facility (3 sources) Sulfacetamide Drug Allergy rash [facility] Other (1 source) Sulfonamides (Antibiotic); Translations: [sulfa drugs] Drug allergy Hyperpyrexia (finding) [facility] (1 source) Sulfonamides (Antibiotic) Drug allergy (disorder) 07-26-20 14 [facility] (3 sources) Sulfonamides (Antibiotic) Drug Intolerance [...] BY MOUTH EVERY MORNING 0 10/06/2023 Active ZH-Dpm-LN-Grafton-3 ( Gummies/DHA & FA) 0.4-32.5 MG chewable tablet (3 sources) Start: 06-19-2023 End: 06-18-2024 HH-Kfe-WQ-Grafton-3 ( Gummies/DHA & FA) 0.4-32.5 MG chewable tablet Indications: Missed menses Chew 32.5 mg in the morning. 30 tablet 11 06/19/2023 06/18/2024 Active Completed/Discontinued Medications Medication Drug Class(es) Dates Sig (Normalized) Sig (Original) [id number] 200 actuat albuterol 0.09 mg/actuat metered dose [...] / neomycin 3.5 mg/ml / polymyxin [id number] unt/ml otic suspension (3 sources) Aminoglycoside Antibacterial, Polymyxin-class Antibacterial, Corticosteroid Start: 04-02-2022 Neomycin-Polymyx in-HC [id number] 3 drops left ear Three times a [...] UA Negative Negative - 4(70) +++ mg/dL [facility] Blood, UA Negative Negative - 50 Cedric/mcL [facility] Clarity, UA Clear [facility] re Color, UA Yellow [facility] Glucose, UA Negative Negative - 1999(110) ++++ mg/dL [facility] Interpretation and review of laboratory results Normal [facility] Ketones, UA Negative Negative - 160(16) ++++ mg/dL [facility] Leukocytes, UA Negative Negative - 500+++ Alessandro/mcL [facility] Nitrite, UA Negative Negative - Positive [facility] pH, UA 6.0 5 - 9 [facility] e Protein, UA Negative Negative - 1999(20) ++++ mg/dL [facility] Spec Grav, UA 1.020 1 - 1.03 [facility] Urobilinogen, UA 0.2 0.2 - 12 mg/dL [facility] e ALL CBC WITH AUTO DIFFon BASOPHILS ABSOLUTE AUTO 0.0 [facility] Basophils/100 WBC (Bld) 0.3 % 0.2 - 2.0 % [facility] Eosinophils/100 WBC (Bld) 1.0 % 0.9 - 7.0 % [facility] Erythrocyte distribution width (RBC) [Ratio] 12.5 % 11.0 - 15.0 % [facility] Hematocrit (Bld) [Volume fraction] 35.1 % Low 36.0 - 48.0 % [facility] Hemoglobin (Bld) [Mass/Vol] 11.7 g/dL Low 12.0 - 16.0 g/dL [facility] IMMATURE GRANULOCYTES ABS AUTO 0.08 High [facility] Immature granulocytes/100 WBC (Bld) 0.6 % High 0.0 - 0.5 % [facility] Interpretation and review of laboratory results Abnormal [facility] LYMPHOCYTES ABSOLUTE AUTO 1.6 [facility] Lymphocytes/100 WBC (Bld) 11.9 % Low 20.5 - 60.0 % [facility] MCH (RBC) [Entitic mass] 30.7 pg 26.7 - 34.0 pg [facility] MCHC (RBC) [Mass/Vol] 33.3 g/dL 29.9 - 35.2 g/dL [facility] MCV (RBC) [Entitic vol] 92.1 fL 81.0 - 99.0 fL [facility] MONOCYTES ABSOLUTE AUTO 0.8 [facility] Monocytes/100 WBC (Bld) 5.5 % 1.7 - 12.0 % [facility] NEUTROPHILS ABSOLUTE AUTO 11.1 High [facility] Neutrophils/100 WBC (Bld) 80.7 % High 43.0 - 75.0 % [facility] Platelet mean volume (Bld) [Entitic vol] 10.6 fL 9.5 - 13.5 fL [facility] are [facility] EO # 0.1 [facility] PLT 292 [facility] RBC 3.81 Low [facility] WBC 13.8 High [facility] CBC AUTO DIFFon 09-14-2022 BASO # 0.0 103/ul Normal 0.0-0.1 [facility] Comment on above: Performed By: #### B GURPREET, TSH #### [facility] [address] [place] [address] Dr. Reema Mireles Basophils/100 WBC (Bld) 0.6 % Normal 0.2-2.0 [facility] Comment on above: Performed By: #### B GURPREET, TSH #### [facility] [address] [address] [address] Reema Mireles EO # 0.0 103/ul Normal 0.0-0.7 [facility] Comment on above: Performed By: #### B GURPREET, TSH #### [facility] [address] [place] [address] Dr. Reema Mireles Eosinophils/100 WBC (Bld) 0.6 % Critically low 0.9-7.0 [facility] Comment on above: Performed By: #### B GURPREET, TSH #### [facility] [address] [place] [address] Dr. Reema Mireles Erythrocyte distribution width (RBC) [Ratio] 11.9 % Normal 11.0-15.0 [facility] Comment on above: Performed By: #### B GURPREET, TSH #### [facility] [address] [place] [address] Dr. Reema Mireles Hematocrit (Bld) [Volume fraction] 37.8 % Normal 36.0-48.0 [facility] Comment on above: Performed By: #### B GURPREET, TSH #### [facility] [address] [place] [address] Dr. Reema Mireles Hemoglobin (Bld) [Mass/Vol] 13.5 g/dL Normal 12.0-16.0 [facility] Comment on above: Performed By: #### B GURPREET, TSH #### [facility] [address] [place] [address] Dr. Reema Mireles IG # 0.01 10e3/ul Normal 0.00-0.03 [facility] Comment on above: Performed By: #### B GURPREET, TSH #### [facility] [address] [place] [address] Dr. Reema Mireles IG % 0.2 % Normal 0.0-0.5 [facility] Comment on above: Performed By: #### B GURPREET, TSH #### [facility] [address] [place] [address] Dr. Reema Mireles LYMPH # 1.6 103/ul Normal 1.2-3.8 [facility] Comment on above: Performed By: #### B GURPREET, TSH #### [facility] [address] [place] [address] Dr. Reema Mireles Lymphocytes/100 WBC (Bld) 25.5 % Normal 20.5-60.0 [facility] Comment on above: Performed By: #### B GURPREET, TSH #### [facility] [address] [place] [address] Dr. Reema Mireles MANUAL DIFF REQ NO Normal [facility] Comment on above: Performed By: #### B MP, TSH #### [facility] [address] [place] [address] Dr. Reema Mireles MCH (RBC) [Entitic mass] 30.9 pg Normal 26.7-34.0 [facility] Comment on above: Performed By: #### B MP, TSH #### [facility] [address] [place] [address] Dr. Reema Mireles MCHC (RBC) [Mass/Vol] 35.7 g/dL Critically high 29.9-35.2 [facility] Comment on above: Performed By: #### B MP, TSH #### [facility] [address] [place] [address] Dr. Reema Mireles MCV (RBC) [Entitic vol] 86.5 fL Normal 81.0-99.0 [facility] Comment on above: Performed By: #### B MP, TSH #### [facility] [address] [place] [address] Dr. Reema Mireles MONO # 0.5 103/ul Normal 0.3-0.8 [facility] Comment on above: Performed By: #### B MP, TSH #### [facility] [address] [place] [address] Dr. Reema Mireles Monocytes/100 WBC (Bld) 8.5 % Normal 1.7-12.0 [facility] Comment on above: Performed By: #### B MP, TSH #### [facility] [address] [place] [address] Dr. Reema Mireles NEUT # 4.1 103/ul Normal 1.4-6.5 [facility] Comment on above: Performed By: #### B MP, TSH #### [facility] [address] [place] [address] Dr. Reema Mireles Neutrophils/100 WBC (Bld) 64.6 % Normal 43.0-75.0 [facility] Comment on above: Performed By: #### B MP, TSH #### [facility] [address] [place] [address] Dr. Reema Mireles Platelet mean volume (Bld) [Entitic vol] 9.9 fL Normal 9.5-13.5 [facility] Comment on above: Performed By: #### B MP, TSH #### [facility] [address] [place] [address] Dr. Reema Mireles PLT 403 103/ul Normal 150-450 [facility] Comment on above: Performed By: #### B MP, TSH #### [facility] [address] [place] [address] Dr. Reema Mireles RBC 4.37 106/ul Normal 4.20-5.40 [facility] Comment on above: Performed By: #### B MP, TSH #### [facility] [address] [place] [address] Dr. Reema Mireles WBC 6.3 103/ul Normal 4.0-11.0 [facility] Comment on above: Performed By: #### B MP, TSH #### [facility] [address] [place] [address] Dr. Reema Mireles PROF 14(COMP METB)on 022 Albumin [Mass/Vol] 4.3 g/dL Normal 3.4-5.0 [facility] Comment on above: Performed By: #### B MP, TSH #### [facility] [address] [place] [address] Dr. Reema Mireles Albumin/Globulin [Mass ratio] 1.2 {ratio} Normal [facility] Comment on above: Performed By: #### B MP, TSH #### [facility] [address] [place] [address] Dr. Reema Mireles ALP [Catalytic activity/Vol] 79 U/L Normal 46-116 [facility] Comment on above: Performed By: #### B MP, TSH #### [facility] [address] [place] [address] Dr. Reema Mireles ALT [Catalytic activity/Vol] 31 U/L Normal 14-59 [facility] Comment on above: Performed By: #### B MP, TSH #### [facility] [address] [address] [address] Reema Mireles Anion gap [Moles/Vol] 12.1 mmol/L Normal [facility] Comment on above: Performed By: #### B MP, TSH #### [facility] [address] [address] [address] Reema Mireles AST [Catalytic activity/Vol] 17 U/L Normal 15-37 [facility] Comment on above: Performed By: #### B MP, TSH #### [facility] [address] [address] [address] Reema Mireles Bilirubin [Mass/Vol] 0.4 mg/dL Normal 0.2-1.0 [facility] Comment on above: Performed By: #### B MP, TSH #### [facility] [address] [place] [address] Dr. Reema Mireles Calcium [Mass/Vol] 8.9 mg/dL Normal 8.5-10.1 [facility] Comment on above: Performed By: #### B MP, TSH #### [facility] [address] [place] [address] Dr. Reema Mireles Chloride [Moles/Vol] 98 mmol/L Normal 98-107 [facility] Comment on above: Performed By: #### B MP, TSH #### [facility] [address] [place] [address] Dr. Reema Mireles CO2 [Moles/Vol] 27.0 mmol/L Normal 21.0-32.0 [facility] Comment on above: Performed By: #### B MP, TSH #### [facility] [address] [place] [address] Dr. Reema Mireles Creatinine [Mass/Vol] 0.65 mg/dL Normal 0.55-1.02 [facility] Comment on above: Performed By: #### B MP, TSH #### [facility] [address] [place] [address] Dr. Reema Mireles EGFR-AF HUNGARIAN >60 Normal >=60 [facility] Comment on above: Performed By: #### B MP, TSH #### [facility] [address] [address] [address] Reema Mireles EGFR-NON AF HUNGARIAN >60 Normal >=60 [facility] Comment on above: Performed By: #### B MP, TSH #### [facility] [address] [address] [address] Reema Mireles Globulin (S) [Mass/Vol] 3.5 g/dL Normal [facility] Comment on above: Performed By: #### B MP, TSH #### [facility] [address] [address] [address] Reema Mireles Glucose [Mass/Vol] 106 mg/dL Normal 74-106 [facility] Comment on above: Performed By: #### B MP, TSH #### [facility] [address] [place] [address] Dr. Reema Mireles Potassium [Moles/Vol] 3.1 mmol/L Critically low 3.5-5.1 [facility] Comment on above: Performed By: #### B MP, TSH #### [facility] [address] [place] [address] Dr. Reema Mireles Protein [Mass/Vol] 7.8 g/dL Normal 6.4-8.2 [facility] Comment on above: Performed By: #### B MP, TSH #### [facility] [address] [place] [address] Dr. Reema Mireles Sodium [Moles/Vol] 134 mmol/L Critically low 136-145 [facility] Comment on above: Performed By: #### B MP, TSH #### [facility] [address] [place] [address] Dr. Reema Mireles Urea nitrogen [Mass/Vol] 6.0 mg/dL Critically low 7.0-18.0 [facility] Comment on above: Performed By: #### B MP, TSH #### [facility] [address] [place] [address] Dr. Reema Mireles Urea nitrogen/Creatinine [Mass ratio] 9.2 mg/mg Normal [facility] Comment on above: Performed By: #### B MP, TSH #### [facility] [address] [place] [address] Dr. Reema Mireles ACETONE SERUMon 08-11-2022 ACETONE Negative Normal NEGATIVE [facility] Comment on above: Performed By: #### B MP, TSH #### [facility] [address] [place] [address] Dr. Reema Mireles CBC AUTO DIFFon 08-11-2022 BASO # 0.1 103/ul Normal 0.0-0.1 [facility] Comment on above: Performed By: #### B MP, TSH #### [facility] [address] [place] [address] Dr. Reema Mireles Basophils/100 WBC (Bld) 0.5 % Normal 0.2-2.0 [facility] Comment on above: Performed By: #### B MP, TSH #### [facility] [address] [place] [address] Dr. Reema Mireles EO # 0.1 103/ul Normal 0.0-0.7 [facility] Comment on above: Performed By: #### B MP, TSH #### [facility] [address] [place] [address] Dr. Reema Mireles Eosinophils/100 WBC (Bld) 0.7 % Critically low 0.9-7.0 [facility] Comment on above: Performed By: #### B MP, TSH #### [facility] [address] [place] [address] Dr. Reema Mireles Erythrocyte distribution width (RBC) [Ratio] 11.7 % Normal 11.0-15.0 [facility] Comment on above: Performed By: #### B MP, TSH #### [facility] [address] [place] [address] Dr. Reema Mireles Hematocrit (Bld) [Volume fraction] 37.6 % Normal 36.0-48.0 [facility] Comment on above: Performed By: #### B MP, TSH #### [facility] [address] [place] [address] Dr. Reema Mireles Hemoglobin (Bld) [Mass/Vol] 13.1 g/dL Normal 12.0-16.0 [facility] Comment on above: Performed By: #### B MP, TSH #### [facility] [address] [place] [address] Dr. Reema Mireles IG # 0.02 10e3/ul Normal 0.00-0.03 [facility] Comment on above: Performed By: #### B MP, TSH #### [facility] [address] [place] [address] Dr. Reema Mireles IG % 0.2 % Normal 0.0-0.5 [facility] Comment on above: Performed By: #### B MP, TSH #### [facility] [address] [place] [address] Dr. Reema Mireles LYMPH # 2.7 103/ul Normal 1.2-3.8 [facility] Comment on above: Performed By: #### B MP, TSH #### [facility] [address] [place] [address] Dr. Reema Mireles Lymphocytes/100 WBC (Bld) 28.5 % Normal 20.5-60.0 [facility] Comment on above: Performed By: #### B MP, TSH #### [facility] [address] [place] [address] Dr. Reema Mireles MANUAL DIFF REQ NO Normal [facility] Comment on above: Performed By: #### B MP, TSH #### [facility] [address] [place] [address] Dr. Reema Mireles MCH (RBC) [Entitic mass] 30.3 pg Normal 26.7-34.0 [facility] Comment on above: Performed By: #### B MP, TSH #### [facility] [address] [place] [address] Dr. Reema Mireles MCHC (RBC) [Mass/Vol] 34.8 g/dL Normal 29.9-35.2 [facility] Comment on above: Performed By: #### B MP, TSH #### [facility] [address] [place] [address] Dr. Reema Mireles MCV (RBC) [Entitic vol] 87.0 fL Normal 81.0-99.0 [facility] Comment on above: Performed By: #### B MP, TSH #### [facility] [address] [place] [address] Dr. Reema Mireles MONO # 0.8 103/ul Normal 0.3-0.8 [facility] Comment on above: Performed By: #### B MP, TSH #### [facility] [address] [place] [address] Dr. Reema Mireles Monocytes/100 WBC (Bld) 8.2 % Normal 1.7-12.0 [facility] Comment on above: Performed By: #### B MP, TSH #### [facility] [address] [place] [address] Dr. Reema Mireles NEUT # 5.9 103/ul Normal 1.4-6.5 [facility] Comment on above: Performed By: #### B MP, TSH #### [facility] [address] [place] [address] Dr. Reema Mireles Neutrophils/100 WBC (Bld) 61.9 % Normal 43.0-75.0 [facility] Comment on above: Performed By: #### B MP, TSH #### [facility] [address] [place] [address] Dr. Reema Mireles Platelet mean volume (Bld) [Entitic vol] 10.2 fL Normal 9.5-13.5 [facility] Comment on above: Performed By: #### B MP, TSH #### [facility] [address] [place] [address] Dr. Reema Mireles PLT 382 103/ul Normal 150-450 [facility] Comment on above: Performed By: #### B MP, TSH #### [facility] [address] [place] [address] Dr. Reema Mireles RBC 4.32 106/ul Normal 4.20-5.40 [facility] Comment on above: Performed By: #### B MP, TSH #### [facility] [address] [place] [address] Dr. Reema Mireles WBC 9.6 103/ul Normal 4.0-11.0 [facility] Comment on above: Performed By: #### B MP, TSH #### [facility] [address] [place] [address] Dr. Reema Mireles CRPon 08-11-2022 CRP [Mass/Vol] mg/L Normal <=1.0 [facility] Comment on above: Performed By: #### B MP, TSH #### [facility] [address] [place] [address] Dr. Reema Mireles ER URINE PROFILEon Bilirubin Ql (U) Negative Normal NEGATIVE [facility] Comment on above: Performed By: #### B MP, TSH #### [facility] [address] [place] [address] Dr. Reema Mireles Clarity (U) CLEAR Normal CLEAR [facility] Comment on above: Performed By: #### B MP, TSH #### [facility] [address] [place] [address] Dr. Reema Mireles Color (U) LT. YELLOW Normal YELLOW [facility] Comment on above: Performed By: #### B MP, TSH #### [facility] [address] [place] [address] Dr. Reema ELIZALDE A micrscopic examination will be performed if indicated. Normal [facility] Comment on above: Performed By: #### B MP, TSH #### [facility] [address] [place] [address] Dr. Reema Mireles Glucose Ql (U) Negative Normal NEGATIVE [facility] Comment on above: Performed By: #### B MP, TSH #### [facility] [address] [place] [address] Dr. Reema Mireles Hemoglobin Ql (U) Negative Normal NEGATIVE [facility] Comment on above: Performed By: #### B MP, TSH #### [facility] [address] [place] [address] Dr. Reema Mireles Ketones Ql (U) Negative Normal NEGATIVE [facility] Comment on above: Performed By: #### B MP, TSH #### [facility] [address] [place] [address] Dr. Reema Mireles LEUKOCYTES Negative Normal NEGATIVE [facility] Comment on above: Performed By: #### B MP, TSH #### [facility] [address] [place] [address] Dr. Reema Mireles Nitrite Ql (U) Negative Normal NEGATIVE [facility] Comment on above: Performed By: #### B MP, TSH #### [facility] [address] [address] [address] Reema Mireles pH (U) 5.5 [pH] Normal 5-9 [facility] Comment on above: Performed By: #### B MP, TSH #### [facility] [address] [place] [address] Dr. Reema Mireles SPEC GRAVITY <=1.005 Abnormal 1.005-<=1.[address] [facility] Comment on above: Performed By: #### B MP, TSH #### [facility] [address] [place] [address] Dr. Reema Mireles UA PROTEIN Negative Normal NEGATIVE/ TRACE [facility] Comment on above: Performed By: #### B MP, TSH #### [facility] [address] [place] [address] Dr. Reema Mireles UR MICRO IND NOT INDICATED Normal [facility] Comment on above: Performed By: #### B MP, TSH #### [facility] [address] [place] [address] Dr. Reema Mireles Urobilinogen Qn (U) 0.2 {Renny'U}/dL Normal 0.2 - 1. 0 [facility] Comment on above: Performed By: #### B MP, TSH #### [facility] [address] [place] [address] Dr. Reeam Mireles LIPASEon 08-11-2022 Lipase [Catalytic activity/Vol] 71.0 U/L Critically low 73.0-393.0 [facility] Comment on above: Performed By: #### B MP, TSH #### [facility] [address] [place] [address] Dr. Reema Mireles URon 08-11-2022 , QUAL Negative Normal NEGATIVE [facility] Comment on above: Performed By: #### C VDTBH #### [facility] [address] [address] [address] Reema Mireles PROF 14(COMP METB)on 08-11- 022 Albumin [Mass/Vol] 4.3 g/dL Normal 3.4-5.0 [facility] Comment on above: Performed By: #### B MP, TSH #### [facility] [address] [address] [address] Reema Mireles Albumin/Globulin [Mass ratio] 1.2 {ratio} Normal [facility] Comment on above: Performed By: #### B MP, TSH #### [facility] [address] [place] [address] Dr. Reema Mireles ALP [Catalytic activity/Vol] 70 U/L Normal 46-116 [facility] Comment on above: Performed By: #### B GURPREET, TSH #### [facility] [address] [place] [address] Dr. Reema Mireles ALT [Catalytic activity/Vol] 16 U/L Normal 14-59 [facility] Comment on above: Performed By: #### B MP, TSH #### [facility] [address] [place] [address] Dr. Reema Mireles Anion gap [Moles/Vol] 10.5 mmol/L Normal [facility] Comment on above: Performed By: #### B MP, TSH #### [facility] [address] [address] [address] Reema Mireles AST [Catalytic activity/Vol] 8 U/L Critically low 15-37 [facility] Comment on above: Performed By: #### B MP, TSH #### [facility] [address] [address] [address] Reema Mireles Bilirubin [Mass/Vol] 0.3 mg/dL Normal 0.2-1.0 [facility] Comment on above: Performed By: #### B MP, TSH #### [facility] [address] [place] [address] Dr. Reema Mireles Calcium [Mass/Vol] 9.0 mg/dL Normal 8.5-10.1 [facility] Comment on above: Performed By: #### B MP, TSH #### [facility] [address] [place] [address] Dr. Reema Mireles Chloride [Moles/Vol] 104 mmol/L Normal 98-107 [facility] Comment on above: Performed By: #### B MP, TSH #### [facility] [address] [place] [address] Dr. Reema Mireles CO2 [Moles/Vol] 26.5 mmol/L Normal 21.0-32.0 [facility] Comment on above: Performed By: #### B MP, TSH #### [facility] [address] [place] [address] Dr. Reema Mireles Creatinine [Mass/Vol] 0.79 mg/dL Normal 0.55-1.02 [facility] Comment on above: Performed By: #### B MP, TSH #### [facility] [address] [place] [address] Dr. Reema Mireles EGFR-AF HUNGARIAN >60 Normal >=60 [facility] Comment on above: Performed By: #### B GURPREET, TSH #### [facility] [address] [place] [address] Dr. Reema Mireles EGFR-NON AF HUNGARIAN >60 Normal >=60 [facility] Comment on above: Performed By: #### B MP, TSH #### [facility] [address] [place] [address] Dr. Reema Mireles Globulin (S) [Mass/Vol] 3.5 g/dL Normal [facility] Comment on above: Performed By: #### B MP, TSH #### [facility] [address] [place] [address] Dr. Reema Mireles Glucose [Mass/Vol] 106 mg/dL Normal 74-106 [facility] Comment on above: Performed By: #### B MP, TSH #### [facility] [address] [place] [address] Dr. Reema Mireles Potassium [Moles/Vol] 3.0 mmol/L Critically low 3.5-5.1 [facility] Comment on above: Performed By: #### B MP, TSH #### [facility] [address] [place] [address] Dr. Reema Mireles Protein [Mass/Vol] 7.8 g/dL Normal 6.4-8.2 [facility] Comment on above: Performed By: #### B MP, TSH #### [facility] [address] [place] [address] Dr. Reema Mireles Sodium [Moles/Vol] 138 mmol/L Normal 136-145 [facility] Comment on above: Performed By: #### B MP, TSH #### [facility] [address] [place] [address] Dr. Reema Mireles Urea nitrogen [Mass/Vol] 8.0 mg/dL Normal 7.0-18.0 [facility] Comment on above: Performed By: #### B MP, TSH #### [facility] [address] [place] [address] Dr. Reema Mireles Urea nitrogen/Creatinine [Mass ratio] 10.1 mg/mg Normal [facility] Comment on above: Performed By: #### B MP, TSH #### [facility] [address] [place] [address] Dr. Reema Mireles PROTIMEon 08-11-2022 INR Coag (PPP) [Relative time] 1.00 {INR} Normal [facility] Comment on above: Performed By: #### P T, PTT #### [facility] [address] [place] [address] Dr. Reema Mireles INR GUIDELINES SEE BELOW Normal [facility] Comment on above: Result Comment: FELICIANO RED INR: 2.0 - 3.0 CONDITIONS NOT LISTED BELOW 2.5 - 3.5 FOR PROSTHETIC HEART VALVE REPLACEMENT 2.5 - 3.5 RECURRENT THROMBOSIS Performed By: #### P T, PTT #### [facility] [address] [place] [address] Dr. Reema Mireles PT Coag (PPP) [Time] 10.8 s Normal 9.0-11.6 [facility] Comment on above: Performed By: #### P T, PTT #### [facility] [address] [place] [address] Dr. Reema Mireles PTTon 08-11-2022 aPTT Coag (Bld) [Time] 30.8 s Normal 22.3-36.2 [facility] Comment on above: Performed By: #### P T, PTT #### [facility] [address] [place] [address] Dr. Reema Mireles [facility] 10 mm/hr Normal <=20 [facility] Comment on above: Performed By: #### B MP, TSH #### [facility] [address] [place] [address] Dr. Reema Mireles TSHon 08-11-2022 TSH 3.313 uIU/mL Normal 0.358-3.740 [facility] Comment on above: Performed By: #### B MP, TSH #### [facility] [address] [place] [address] Dr. Reema Mireles Discharge Instructionson Discharge Instructions [id number] #1.00CD:127 Normal [facility] Comment on above: Other Comment: wrong patient STOOL CULTUREon 04-20-2022 Campylobacter Culture Final report Normal [facility] Comment on above: Performed By: #### B MP, TSH #### [facility] [address] [place] [address] Dr. Reema Mireles E coli Shiga Toxin EIA Negative Normal Negative [facility] Comment on above: Performed By: #### B MP, TSH #### [facility] [address] [place] [address] Dr. Reema Mireles Result [address] [facility] Comment on above: Result Comment: No S almonella or Shigella recovered. Performed By: #### B MP, TSH #### [facility] [address] [place] [address] Dr. Reema Mireles Result Comment: No C ampylobacter species isolated. Salmonella/Shigella Screen Final report Normal [facility] Comment on above: Performed By: #### B MP, TSH #### [facility] [address] [place] [address] Dr. Reema Mireles Coding Summary.on 04-14-2022 Coding Summary. CD:[id number] Gh0bWw+PGhlYWQ+PE1FV IBaR09voMDftI8NR9xZU H2TKBKQYPKMTE4WDI5ma TU1UZfrB0SlfmJu VkicnKJoAP42ZPr3OTR4 wTofBSixmV7qkUMbJ9g6 QlTfXZ03kB27VOhoXEGt ZjX1YaCidjwfuGQw G3qiDdRwdSOgTjb+PHRh YmxlIHdpZHRoPScxMDAl FiVpuJdrZL4cZj3fIMBk LWNvbGxhcHNlOiBj k1vgDHKxNAfwCZ4nmBan E2RvhNU2KHGts0c5Mx46 dHI+AXXbHEP8xAajVJcf k286XyNjj6grBZU8 aCEqJHxbZEL4O34tl1R9 PMOqIGLzMED0aUC6yR5r kEzmmhneD5HjmTDhYnW9 VGN0nLLquB2wfKae ayzszQ5eDoi+H77XKW6E FIOHDZ5RIwz2T8LaYezx dHI+XS51OYKdKO52xVKx nUPvx6mujTu1YiMq SXLbKXL8oWnpSPhpp2Fj JQMbY17bmRLet3B2YGWx gHxyfDCcPqSkyVL4xD6s FHcarctze6njdpoa Enwuv5zpqr43oA42Y08i QZfqTTErQMI4TJInVDSc eDlwhn1ksG1zEb1+IDxj p9cfw6ttmZh7LmRs MKLrqjGfrPwxYHF2q7Fq Jd26S8DzhJtlj0LrSpm9 in71fUFvx6B6mTC6JJfh MFArnL7iWLmrQuJ3 VBOlXoJteS65gPSwTCvb Nj5dvLtzpDpvWE0fHFGp sfriCFYdjO3jZQWkfSUi gQkbAM9xSSDtktty y545BaZiKPL4RTOprHNa Y7QvcX7sDbKzJYLtIKIo F4EspKEfRJkrG862PXzc IbE8UPJldcBsX8Li IYJsuPyaNfC4u7A8Xo5J o0QynzouTJX2GUpaALB6 YtD5HaAzOoH1I2BsZke0 WJVwyXimIM2vG8Sm WSRaieczirhbdWC9GHKe ICHakI70xPNjIIepIt1q s8P7g572MGKvGZZbqW97 Oq2lfErhMARwhSFQ pL5tyxvtn8mzlwhwFbDo MRGrBJi0YHw2UDNiwHqh EsNuUHP3BtY5BGY1xGVz mA0dtVfsobfwdS9x Oyc+S22yyO3sBAT1BSL5 ttwlBMQigcQwSE60NH69 T3TyIpnilLIkcTS+PGRp dgRxhFhvFL2wMbBz c5lnb4PwDVcwL4ErUGIj WIbwDmi2TEGmTQU1iFU7 uL5nHGSeBJkoq7T2pQB8 Z1GofiMdoc3ms9nc CYQkAGgnG23baMCoq9Z8 PDEtuLI4CWMbxLfeFdAa gQ79Chw+VPAbvPwgu6Wg Rvrwb0rux9nnbQw2 IjMwJSIgdmFsaWduPSJ0 w9NrLb83F56vFSxdRHGa YWCoLECwWGIhgUbsrf3k dJ5iDf6+PGNvbCB3 fRE8zX4zOFYtKaZ3WSzg Y799FyOriYEkQdcvf4kt l9nbnVz7MqAqXIQafvBp aBdoTHT5q6XaRu72 I70nLHqjFJOdXPJzYZUt VMWzfKrovs2xqT0mMa1+ FC5xl4cvro37oY54mNS+ DLYtZVB9sGbuEMea ILHydL2gDTdsVjB8MFSo UfQlfN51gHPySZwsAi8m bLdgwImwWR3yGEMfgwyw s205HmGbr5rsZMZd hWNnWXbsSHY8O23od0B9 BDJrTZLiVUD6zJH9pM5j bGlnbjogbGVmdDsgdmVy oXqwXXvhDNjlA720 IHRvcDsnPlBhdGllbnQg JuCyHAm8G7FuSss2IPUl hNwkSU9naDPmSKgyYm4j oTwwxVxlRB6pDCQi dtvha663HwCgs3qwSWFn gBKlDThuSWQ1Q77bo2A3 ZAHjVDLyXOY7iOG1uM8a bGlnbjogbGVmdDsg hvEzmMaiNCmkJDmhL005 IHRvcDsnPkJpcnRoIERh cLK5MS15LF26lKQvh0X3 aVV5C2UxRXYfulme zzzatBL6IMRgAVVjmH91 Qd2laCvsGh2aSMDrACJ9 PQTsqXXuF8ZsqN0pVlRm FRCfWBByR2OqzTIa QLgiU288RGokEeR3SZEe fgOuC9TyAESoaGzgZnE2 x2Y6Xv9TV4L4MD28JQ81 pWIik5Y0yHZ1I7Bs BAAnspynyvigbVZ1IWOy GDHlbR85Fp9llRepXh0s JPJxZJO2LEGceVAxL9Ns bF7gWfEaNSNhWMUs B7MmlGOzNBmiI090TMwk RjM6JGKacdCmF3IxKCIe kQkxCpG5h0B3Zd2XXDd3 XK41AK17cHUej2O4 tLT9B3DnPMIawnqqohoo aUD5SNZvPUXakK23Yi4i pRxmCx0qNDVjBUJ7SONm gTWyS1HpdO7uQzUe OHAqXNCuM6JjfMRpTEss C356FXkgDfF3SOKynpTh I4CoDIIuaQlrMlZ5r9Z6 Lj5BZJPsFF38SQY7 oKO3OZ70PK07R0EcAfgr dGFibGU+PHRhYmxlIHdp ZHRoPScxMDAlJyBzdHls QL2iKv7xPEEzETSw wJmpzXAzRvGop7rrNRMk CUoqYU3qfYkqP0HezSZ8 MKYuh6c5Oy68E71zU5Rf dXA+QPZouFK9iUC1 lC0vAnEuYbG8OPvuV974 AyYkvCXmGkdlm4okc1fe sZg7HzW4VQJmswPraHrx CIA8c8TbMk24A69l IHdpZHRoPSIxNSUiIHZh lTfruj3xqD3iZi5+PGNv bLE5mWE8bI5zKlQuAwG3 GUbpP545FcEccFVo Sqxzh7eiy7aisYc4IfYk VSFuruMibCmxLNG5p1Lq Fo87G5JycIcvi0MwRbw5 td54cDHot5S3dXF9 T5OuYYEanuoinFMvkMym IZ0gOQQhdhyxVEXkyD0r VUKoH3u0XbRrOcU8XKax I4VlmdA6CDGjoLAm DIctYDZ8Y97cs4F1KZQr LZOcXSF8gIF3tM7ymXlf bjogbGVmdDsgdmVydGlj XJxdMJpyK746BZOl aDrkUMQchZ9sHWWkrEEf nBadXD4rVXItmgitEaqT RJXSJ31WW0gMZFCJJVDQ ZZC4T6WqEgy7NJDt jAviHY5jnKIoXIqnNl3p aJxshXwfTZ5fEZHlmbhm KKWveM5mFQTjzJTyhJbj PP1dAVQgudrvr315 NpTwTJI8CGYabLLuI7Us eG5qZuFrRYLjUUJkA8Em eKWjRCkkV487SZuiOwA7 JXWgbxUyY5RtCPVj iIgdZrM5n3R7Kn1yOd0x OM9pWWOrCR94PC06yCEi w7P4yCE0N3IaKDSfbjer bwjpzKI0XMFlONLy wE93wBQnIUpvLe5qm1V8 b054UAKlLQGvkV54Qb7g fUuxCBZmcHOAoA2eekfx w4bnyfiqBlOqBIVp HKf9VWm1JOVkpQpjIiCn EAO3WiX2QAO8wGNrpH7a rLxjqxujeE9gMmr+MjAg PNYmjgP8X8OzNkm4 HBNczWujIY2mqHNzFNbu Qr2ivGukjAlfEP6gAIMn jugeXLNlbA9kPLIrfDUw kXlbCK9tBBZlworl d679CaVhXPC5SBFrpGYx X0SarQ4sMkQdTCDtKKVh O3VihXCtPIgoI704VCzi VbD6SLZtxnPrY5Oy CLMcwZqwPsE5z1F0Yf8K ES2xyBQ8G8OjJvz1ZGPu jRwiFE7miLYtQXdnEw9r oYlalJnaJE8kIDPi eusiMYQkeG7jWJPdbIBu mTtcYZ9hTBDkqbibx283 UxXwMJN9BOOwaSWlH3Xs bM9nWfYiDWOzKLGc M9XekTRsCYxlH433CLsa ZzH3YFUxoaDcF3AyKEGv pAyjNcP8c3M1Yz2JvVQk A9EtJ9i4R4WpGfrq dHI+WJ86KFDuYT18iVNj eRKjn6hcgGb0AcUdXPXy SDH1uHcxXHbua1IrTUZh Z26irIBuu2X7QIHn mKaeuAUqGmZkrGA7kN1d FKibvukuy8tqbyysGfpw s0sodx32dD03G02eAFfu ZHRoPSIzMCUiIHZh fRpyfx9wcB0cNs0+PGNv hEE3kBJ3nV9mTvPtXmA8 BNbwA119FuFsnDHzRuwn p5ntb5cyeNn8OrZz CXVrqgAwtMbqMXO3y1Ea Vp95X31hISggNFIkYUJr LEInAXLcqDoqgg6ouT9i Ii8+MK9cs8arxi36 rD22lLT+SCGtWZG4iEab HZqhJRPgcL5dSIviRgS9 USUqUnAuxE64nNRaCBjk Wp5vnOytrDtbFJ8r XWTdtexvt678OiLyg4iv SFCckSHjTUkyOEW4R68m e2B0NDVdOYBxMHN4jLW1 kX1hiOdrdpgdqJMp dDsgdmVydGljYWwtYWxp W408BSZeuYaiGwVinQVh W3zdtxLBRG6iIgpxyGQ+ VBCdUZF5mNrgNUun WRQvzL8iIHTdT9a6IwOa HoR7PPdoQ1JeuiD4GKDb wPIaJEHzeZERgA9ntpam c1yhwhgsWvMfLGCw JPj2EIl0VKFfpKhlZcTf TFA1IpH9XEU7fWJlsS1w hUrxtlgrdF6xZuj+RklO OjwvdGQ+PHRkIHN0 cLkrGNxyIYKmnN7aOBZi D0h2BwXfOwD6FQljB7Ns wpF4TLUmlFMkDSCgpPEI dR5bnnwvw8ihkamj FgGxMXBvGGc2ZQf3RGZn fDneGfQdPSZ9PsN1UUH8 uKQcsA6khMugejkvdY0a Oyc+TVJOOjwvdGQ+ KYBiGNW0aWbyVXigMHOs rO4uTMQnI8a2YnQoVgL9 RAxzG8JyntJ5JFCxmHSe IVNhxDYDyF0lduut q2ijgmrpEsNxSEWpHDc2 WZs3EHKlnQvvKdCuZRA4 DkZ1DOP4pFPnwP6qrRvm dekfmC9bJab+UGF5 YYH8AH94VI84Y6MwIchw dGFibGU+PHRhYmxlIHdp ZHRoPScxMDAlJyBzdHls WF2eYn0qPDQaSQXw bGxh (more content not included)... Normal [facility] CBC AUTO DIFFon 04-13-2022 BASO # 0.1 103/ul Normal 0.0-0.1 [facility] Comment on above: Performed By: #### C VDTBH #### [facility] [address] [place] [address] Dr. Reema Mireles Basophils/100 WBC (Bld) 0.6 % Normal 0.2-2.0 [facility] Comment on above: Performed By: #### C VDTBH #### [facility] [address] [address] [address] Reema Mireles EO # 0.0 103/ul Normal 0.0-0.7 [facility] Comment on above: Performed By: #### C VDTBH #### [facility] [address] [place] [address] Dr. Reema Mireles Eosinophils/100 WBC (Bld) 0.2 % Critically low 0.9-7.0 [facility] Comment on above: Performed By: #### C VDTBH #### [facility] [address] [address] [address] Reema Mireles Erythrocyte distribution width (RBC) [Ratio] 11.4 % Normal 11.0-15.0 [facility] Comment on above: Performed By: #### C VDTBH #### [facility] [address] [place] [address] Dr. Reema Mireles Hematocrit (Bld) [Volume fraction] 38.3 % Normal 36.0-48.0 [facility] Comment on above: Performed By: #### C VDTBH #### [facility] [address] [place] [address] Dr. Reema Mireles Hemoglobin (Bld) [Mass/Vol] 13.4 g/dL Normal 12.0-16.0 [facility] Comment on above: Performed By: #### C VDTBH #### [facility] [address] [place] [address] Dr. Reema Mireles IG # 0.01 10e3/ul Normal 0.00-0.03 [facility] Comment on above: Performed By: #### C VDTBH #### [facility] [address] [place] [address] Dr. Reema Mireles IG % 0.1 % Normal 0.0-0.5 [facility] Comment on above: Performed By: #### C VDTBH #### [facility] [address] [place] [address] Dr. Reema Mireles LYMPH # 1.8 103/ul Normal 1.2-3.8 [facility] Comment on above: Performed By: #### C VDTBH #### [facility] [address] [place] [address] Dr. Reema Mireles Lymphocytes/100 WBC (Bld) 22.2 % Normal 20.5-60.0 [facility] Comment on above: Performed By: #### C VDTBH #### [facility] [address] [place] [address] Dr. Reema Mireles MANUAL DIFF REQ NO Normal [facility] Comment on above: Performed By: #### C VDTBH #### [facility] [address] [place] [address] Dr. Reema Mireles MCH (RBC) [Entitic mass] 30.6 pg Normal 26.7-34.0 [facility] Comment on above: Performed By: #### C VDTBH #### [facility] [address] [place] [address] Dr. Reema Mireles MCHC (RBC) [Mass/Vol] 35.0 g/dL Normal 29.9-35.2 [facility] Comment on above: Performed By: #### C VDTBH #### [facility] [address] [place] [address] Dr. Reema Mireles MCV (RBC) [Entitic vol] 87.4 fL Normal 81.0-99.0 [facility] Comment on above: Performed By: #### C VDTBH #### [facility] [address] [place] [address] Dr. Reema Mireles MONO # 0.7 103/ul Normal 0.3-0.8 [facility] Comment on above: Performed By: #### C VDTBH #### [facility] [address] [place] [address] Dr. Reema Mireles Monocytes/100 WBC (Bld) 8.2 % Normal 1.7-12.0 [facility] Comment on above: Performed By: #### C VDTBH #### [facility] [address] [place] [address] Dr. Reema Mireles NEUT # 5.5 103/ul Normal 1.4-6.5 [facility] Comment on above: Performed By: #### C VDTBH #### [facility] [address] [place] [address] Dr. Reema Mireles Neutrophils/100 WBC (Bld) 68.7 % Normal 43.0-75.0 [facility] Comment on above: Performed By: #### C VDTBH #### [facility] [address] [place] [address] Dr. Reema Mireles Platelet mean volume (Bld) [Entitic vol] 10.1 fL Normal 9.5-13.5 [facility] Comment on above: Performed By: #### C VDTBH #### [facility] [address] [place] [address] Dr. Reema Mireles PLT 404 103/ul Normal 150-450 [facility] Comment on above: Performed By: #### C VDTBH #### [facility] [address] [place] [address] Dr. Reema Mireles RBC 4.38 106/ul Normal 4.20-5.40 [facility] Comment on above: Performed By: #### C VDTBH #### [facility] [address] [place], [place] [address] Dr. Reema Mireles WBC 8.0 103/ul Normal 4.0-11.0 [facility] Comment on above: Performed By: #### C VDTBH #### [facility] [address] [place], [place] [address] HEAD WO CONon [...] AURELIA CARLOS Date: 2022-04-13 16:29 Normal [facility] Discharge Instructionson Discharge Instructions [id number] #1.00CD:127 Normal [facility] ED Note-Physicianon 04-13-20 ED Note-Physician Basic Information Time Seen: Lata Hardy M.D. 04/12/2022 19:56 Chief Complaint Pt. presents to the ed with c/o headache and vertigo since thursday. Pt. was seen at [place] and started on prednisone. pt. stopped taking [...] The patient states she was seen at [facility] discharged home. She went to urgent [...] neurological deficit. She has been seen at [facility] and started on prednisone. Possible her [...] ADRYAN MARIE In 3 days 04/15/2022 EDT [facility] [id number] (1) Additional Instructions: Return to the [...] Diagnostic Results No qualifying data available. Normal [facility] Comment on above: Result Comment: Elec tronically Signed By: Antony Villa, Lata Baxter\.br\Date and Time Signed: 04/13/22 04:56 EDT ER URINE PROFILEon 2 Bilirubin Ql (U) Negative Normal NEGATIVE [facility] Comment on above: Performed By: #### P REGU, ERUR #### [facility] [address] [address] [address] Reema Mireles Clarity (U) CLEAR Normal CLEAR [facility] Comment on above: Performed By: #### P REGU, ERUR #### [facility] [address] [address] [address] Reema Mireles Color (U) LT. YELLOW Normal YELLOW [facility] Comment on above: Performed By: #### P REGU, ERUR #### [facility] [address] [address] [address] Reema Mireles ERUAHD A micrscopic examination will be performed if indicated. Normal [facility] Comment on above: Performed By: #### P REGU, ERUR #### [facility] [address] [address] [address] Reema Mireles Glucose Ql (U) Negative Normal NEGATIVE [facility] Comment on above: Performed By: #### P REGU, ERUR #### [facility] [address] [place] [address] Dr. Reema Mireles Hemoglobin Ql (U) Negative Normal NEGATIVE [facility] Comment on above: Performed By: #### P REGU, ERUR #### [facility] [address] [place] [address] Dr. Reema Mireles Ketones Ql (U) Negative Normal NEGATIVE [facility] Comment on above: Performed By: #### P REGU, ERUR #### [facility] [address] [place] [address] Dr. Reema Mireles LEUKOCYTES Negative Normal NEGATIVE [facility] Comment on above: Performed By: #### P REGU, ERUR #### [facility] [address] [place] [address] Dr. Reema Mireles Nitrite Ql (U) Negative Normal NEGATIVE [facility] Comment on above: Performed By: #### P REGU, ERUR #### [facility] [address] [place] [address] Dr. Reema Mireles pH (U) 6.5 [pH] Normal 5-9 [facility] Comment on above: Performed By: #### P REGU, ERUR #### [facility] [address] [place] [address] Dr. Reema Mireles SPEC GRAVITY 1.005 Normal 1.005-<=1.[address] [facility] Comment on above: Performed By: #### P REGU, ERUR #### [facility] [address] [place] [address] Dr. Reema Mireles UA PROTEIN Negative Normal NEGATIVE/ TRACE [facility] Comment on above: Performed By: #### P REGU, ERUR #### [facility] [address] [place] [address] Dr. Reema Mireles UR MICRO IND NOT INDICATED Normal [facility] Comment on above: Performed By: #### P REGU, ERUR #### [facility] [address] [place] [address] Dr. Reema Mireles Urobilinogen Qn (U) 0.2 {Renny'U}/dL Normal 0.2 - 1. 0 [facility] Comment on above: Performed By: #### P REGU, ERUR #### [facility] [address] [address] [address] Reema Mireles URon 04-13-2022 , QUAL Negative Normal NEGATIVE [facility] Comment on above: Performed By: #### P REGU, ERUR #### [facility] [address] [address] [address] Reema Mireles PROF CHEM 8 (BAS METB)on Anion gap [Moles/Vol] 14.0 mmol/L Normal [facility] Comment on above: Performed By: #### B MP, TSH #### [facility] [address] [place] [address] Dr. Reema Mireles Calcium [Mass/Vol] 9.2 mg/dL Normal 8.5-10.1 [facility] Comment on above: Performed By: #### B GURPREET, TSH #### [facility] [address] [address] [address] Reema Mireles Chloride [Moles/Vol] 102 mmol/L Normal 98-107 [facility] Comment on above: Performed By: #### B GURPREET, TSH #### [facility] [address] [address] [address] Reema Mireles CO2 [Moles/Vol] 26.3 mmol/L Normal 21.0-32.0 [facility] Comment on above: Performed By: #### B MP, TSH #### [facility] [address] [address] [address] Reema Mireles Creatinine [Mass/Vol] 0.65 mg/dL Normal 0.55-1.02 [facility] Comment on above: Performed By: #### B MP, TSH #### [facility] [address] [place] [address] Dr. Reema Mireles EGFR-AF HUNGARIAN >60 Normal >=60 [facility] Comment on above: Performed By: #### B MP, TSH #### [facility] [address] [address] [address] Reema Mireles EGFR-NON AF HUNGARIAN >60 Normal >=60 [facility] Comment on above: Performed By: #### B GURPREET, TSH #### [facility] [address] [address] [address] Reema Mireles Glucose [Mass/Vol] 92 mg/dL Normal 74-106 [facility] Comment on above: Performed By: #### B GURPREET, TSH #### [facility] [address] [address] [address] Reema Mireles Potassium [Moles/Vol] 3.3 mmol/L Critically low 3.5-5.1 [facility] Comment on above: Performed By: #### B GURPREET, TSH #### [facility] [address] [place] [address] Dr. Reema Mireles Sodium [Moles/Vol] 139 mmol/L Normal 136-145 [facility] Comment on above: Performed By: #### B GURPREET, TSH #### [facility] [address] [address] [address] Reema Mireles Urea nitrogen [Mass/Vol] 8.0 mg/dL Normal 7.0-18.0 [facility] Comment on above: Performed By: #### B GURPREET, TSH #### [facility] [address] [place] [address] Dr. Reema Mireles Urea nitrogen/Creatinine [Mass ratio] 12.3 mg/mg Normal [facility] Comment on above: Performed By: #### B GURPREET, TSH #### [facility] [address] [place] [address] Dr. Reema Mireles TSHon 04-13-2022 TSH 1.293 uIU/mL Normal 0.358-3.740 [facility] Comment on above: Performed By: #### B GURPREET, TSH #### [facility] [address] [place] [address] Dr. Reema Mireles Consent for Treatmenton 03-28 Consent for Treatment [id number] Normal [facility] ED Clinical Summaryon 2021 ED Clinical Summary [address] [address] ED Clinical Summary Person Information Name: JUANPABLO CHAPARRO [place] Age: 21 Years : 2000 Sex: Female Language: Armenian PCP: ADRYAN MARIE MD Marital Status: Single Phone: [phone] Visit Id: Visit Reason: Vertigo - recurrent; [...] 04/12/2022 21:07:38 04/12/2022 21:07:38 04/12/2022 21:07:38 ADDRESS: [address] [place] [address] [id number] PHYS DOC NOTES: MEDICAL INFORMATION: Prescriptions Given: PATIENT EDUCATION INFORMATION: Instructions: General Headache Without Cause; Vertigo Follow up: With: Address: When: ADRYAN MARIE [address] [place], [place] [id number] [employer] (1) In 3 days 04/15/2022 Comments: Return to the emergency room if her headache gets worse, vertigo becomes persistent or any new symptoms DIAGNOSIS: 1:Vertigo; 2:Headache Normal [facility] ED Patient Education Noteon 04-12-2022 ED [...] you feel dizzy. General instructions ? Take qzqc-hxo-vfcmzdt and prescription medicines only as told by [...] 06/24/2006 Document Revised: 08/08/2019 Document Reviewed: 08/08/2019 [employer] Patient Education ? 2020 [employer] Neurology General Headache Without Cause A [...] with your condition: Managing pain ? Take xziu-cha-qhexnpc and prescription medicines only as told by [...] of beer (more content not included)... Normal [facility] ED Patient Summaryon 022 ED Patient Summary [address] [address] Patient Discharge Instructions Person Information Name: JUANPALBO CHAPARRO Age: 21 Years Arrival Date: 04/12/2022 19:22:40 Discharge Diagnosis: 1:Vertigo; 2:Headache Primary Care Physician: ADRYAN MARIE MD Provider Information Primary Provider: Antony Villa, Lata Baxter Advanced Torch Straightener And Heater:None The exam and treatment you received in the Emergency Department were for an urgent problem and are not intended as complete care. It is important that you follow up with a doctor, nurse practitioner, or physician?s dietetic assistant for ongoing care. If your symptoms [...] Follow-up Instructions: With: Address: When: ADRYAN MARIE [address] [place], [place] [id number] [employer] ([address] [employer] In 3 days 04/15/2022 Comments: Return to [...] opioids can be used to help relieve npvfeedu-yd-pkyikp pain and are often prescribed following a [...] addiction, tel (more content not included)... Normal [facility] CBC AUTO DIFFon 04-09-2022 BASO # 0.1 103/ul Normal 0.0-0.1 [facility] Comment on above: Performed By: #### B MP, TSH #### [facility] [address] [address] [address] Reema Mireles Basophils/100 WBC (Bld) 0.5 % Normal 0.2-2.0 [facility] Comment on above: Performed By: #### B MP, TSH #### [facility] [address] [place] [address] Dr. Reema Mireles EO # 0.1 103/ul Normal 0.0-0.7 [facility] Comment on above: Performed By: #### B MP, TSH #### [facility] [address] [place] [address] Dr. Reema Mireles Eosinophils/100 WBC (Bld) 1.0 % Normal 0.9-7.0 [facility] Comment on above: Performed By: #### B MP, TSH #### [facility] [address] [place] [address] Dr. Reema Mireles Erythrocyte distribution width (RBC) [Ratio] 11.7 % Normal 11.0-15.0 [facility] Comment on above: Performed By: #### B MP, TSH #### [facility] [address] [place] [address] Dr. Reema Mireles Hematocrit (Bld) [Volume fraction] 37.2 % Normal 36.0-48.0 [facility] Comment on above: Performed By: #### B MP, TSH #### [facility] [address] [place] [address] Dr. Reema Mireles Hemoglobin (Bld) [Mass/Vol] 12.8 g/dL Normal 12.0-16.0 [facility] Comment on above: Performed By: #### B GURPREET, TSH #### [facility] [address] [place] [address] Dr. Reema Mireles IG # 0.02 10e3/ul Normal 0.00-0.03 [facility] Comment on above: Performed By: #### B MP, TSH #### [facility] [address] [place] [address] Dr. Reema Mireles IG % 0.2 % Normal 0.0-0.5 [facility] Comment on above: Performed By: #### B MP, TSH #### [facility] [address] [place] [address] Dr. Reema Mireles LYMPH # 1.8 103/ul Normal 1.2-3.8 [facility] Comment on above: Performed By: #### B MP, TSH #### [facility] [address] [place] [address] Dr. Reema Mireles Lymphocytes/100 WBC (Bld) 19.0 % Critically low 20.5-60.0 [facility] Comment on above: Performed By: #### B MP, TSH #### [facility] [address] [place] [address] Dr. Reema Mireles MANUAL DIFF REQ NO Normal [facility] Comment on above: Performed By: #### B MP, TSH #### [facility] [address] [place] [address] Dr. Reema Mireles MCH (RBC) [Entitic mass] 30.4 pg Normal 26.7-34.0 [facility] Comment on above: Performed By: #### B MP, TSH #### [facility] [address] [place] [address] Dr. Reema Mireles MCHC (RBC) [Mass/Vol] 34.4 g/dL Normal 29.9-35.2 [facility] Comment on above: Performed By: #### B MP, TSH #### [facility] [address] [place] [address] Dr. Reema Mireles MCV (RBC) [Entitic vol] 88.4 fL Normal 81.0-99.0 [facility] Comment on above: Performed By: #### B MP, TSH #### [facility] [address] [place] [address] Dr. Reema Mireles MONO # 0.7 103/ul Normal 0.3-0.8 [facility] Comment on above: Performed By: #### B MP, TSH #### [facility] [address] [place] [address] Dr. Reema Mireles Monocytes/100 WBC (Bld) 6.8 % Normal 1.7-12.0 [facility] Comment on above: Performed By: #### B MP, TSH #### [facility] [address] [place] [address] Dr. Reema Mireles NEUT # 7.0 103/ul Critically high 1.4-6.[address] [facility] Comment on above: Performed By: #### B GURPREET, TSH #### [facility] [address] [place] [address] Dr. Reema Mireles Neutrophils/100 WBC (Bld) 72.5 % Normal 43.0-75.0 [facility] Comment on above: Performed By: #### B GURPREET, TSH #### [facility] [address] [place] [address] Dr. Reema Mireles Platelet mean volume (Bld) [Entitic vol] 10.3 fL Normal 9.5-13.5 [facility] Comment on above: Performed By: #### B GURPREET, TSH #### [facility] [address] [place] [address] Dr. Reema Mireles PLT 358 103/ul Normal 150-450 [facility] Comment on above: Performed By: #### Inna VÁZQUEZ, TSH #### [facility] [address] [place] [address] Dr. Reema Mireles RBC 4.21 106/ul Normal 4.20-5.40 [facility] Comment on above: Performed By: #### B GURPREET, TSH #### [facility] [address] [place] [address] Dr. Reema Mireles WBC 9.7 103/ul Normal 4.0-11.0 [facility] Comment on above: Performed By: #### B GURPREET, TSH #### [facility] [address] [place] [address] Dr. Reema Mireles CULTURE BLOODon 04-09-2022 Microscopic examination of blood, culture Culture Observations: NO GROWTH AT 5 DAYS. Normal [facility] Comment on above: Performed By: #### B GURPREET, TSH #### [facility] [address] [place] [address] Dr. Reema Mireles ER URINE PROFILEon 2 Bilirubin Ql (U) Negative Normal NEGATIVE [facility] Comment on above: Performed By: #### B GURPREET, TSH #### [facility] [address] [place] [address] Dr. Reema Mireles Clarity (U) CLEAR Normal CLEAR [facility] Comment on above: Performed By: #### B MP, TSH #### [facility] [address] [place] [address] Dr. Reema Mireles Color (U) LT. YELLOW Normal YELLOW [facility] Comment on above: Performed By: #### B MP, TSH #### [facility] [address] [place] [address] Dr. Reema Mireles ERUAHD A micrscopic examination will be performed if indicated. Normal [facility] Comment on above: Performed By: #### B MP, TSH #### [facility] [address] [place] [address] Dr. Reema Mireles Glucose Ql (U) Negative Normal NEGATIVE [facility] Comment on above: Performed By: #### B MP, TSH #### [facility] [address] [place] [address] Dr. Reema Mireles Hemoglobin Ql (U) TRACE-INTACT Abnormal NEGATIVE [facility] Comment on above: Performed By: #### B MP, TSH #### [facility] [address] [place] [address] Dr. Reema Mirelse Ketones Ql (U) Negative Normal NEGATIVE [facility] Comment on above: Performed By: #### B MP, TSH #### [facility] [address] [place] [address] Dr. Reema Mireles LEUKOCYTES Negative Normal NEGATIVE [facility] Comment on above: Performed By: #### B MP, TSH #### [facility] [address] [place] [address] Dr. Reema Mireles Nitrite Ql (U) Negative Normal NEGATIVE [facility] Comment on above: Performed By: #### B MP, TSH #### [facility] [address] [place] [address] Dr. Reema Mireles pH (U) 5.5 [pH] Normal 5-9 [facility] Comment on above: Performed By: #### B MP, TSH #### [facility] [address] [place] [address] Dr. Reema Mireles SPEC GRAVITY <=1.005 Abnormal 1.005-<=1.025 [facility] Comment on above: Performed By: #### B MP, TSH #### [facility] [address] [place] [address] Dr. Reema Mireles UA PROTEIN Negative Normal NEGATIVE/ TRACE [facility] Comment on above: Performed By: #### B MP, TSH #### [facility] [address] [place] [address] Dr. Reema Mireles UR MICRO IND INDICATED Normal [facility] Comment on above: Performed By: #### B MP, TSH #### [facility] [address] [place] [address] Dr. Reema Mireles Urobilinogen Qn (U) 0.2 {Renny'U}/dL Normal 0.2 - 1. 0 [facility] Comment on above: Performed By: #### B GURPREET, TSH #### [facility] [address] [place] [address] Dr. Reema Mireles LACTATE/LACTIC ACIDon 2021 Lactate [Moles/Vol] 2.2 mmol/L Critically high 0.4-1.9 [facility] Comment on above: Performed By: #### B MP, TSH #### [facility] [address] [place] [address] Dr. Reema Mireles URon 04-09-2022 , QUAL Negative Normal NEGATIVE [facility] Comment on above: Performed By: #### B GURPREET, TSH #### [facility] [address] [place] [address] Dr. Reema Mireles PROF 14(COMP METB)on 022 Albumin [Mass/Vol] 4.5 g/dL Normal 3.4-5.0 [facility] Comment on above: Performed By: #### C MP #### [facility] [address] [place] [address] Dr. Reema Mireles Albumin/Globulin [Mass ratio] 1.3 {ratio} Normal [facility] Comment on above: Performed By: #### C MP #### [facility] [address] [place] [address] Dr. Reema Mireles ALP [Catalytic activity/Vol] 83 U/L Normal 46-116 [facility] Comment on above: Performed By: #### C MP #### [facility] [address] [address] [address] Reema Mireles ALT [Catalytic activity/Vol] 26 U/L Normal 14-59 [facility] Comment on above: Performed By: #### C MP #### [facility] [address] [address] [address] Reema Mireles Anion gap [Moles/Vol] 14.9 mmol/L Normal [facility] Comment on above: Performed By: #### C MP #### [facility] [address] [place] [address] Dr. Reema Mireles AST [Catalytic activity/Vol] 12 U/L Critically low 15-37 [facility] Comment on above: Performed By: #### C MP #### [facility] [address] [place] [address] Dr. Reema Mireles Bilirubin [Mass/Vol] 0.3 mg/dL Normal 0.2-1.0 [facility] Comment on above: Performed By: #### C MP #### [facility] [address] [place] [address] Dr. Reema Mireles Calcium [Mass/Vol] 9.6 mg/dL Normal 8.5-10.1 [facility] Comment on above: Performed By: #### C MP #### [facility] [address] [place] [address] Dr. Reema Mireles Chloride [Moles/Vol] 103 mmol/L Normal 98-107 [facility] Comment on above: Performed By: #### C MP #### [facility] [address] [address] [address] Reema Mireles CO2 [Moles/Vol] 24.4 mmol/L Normal 21.0-32.0 [facility] Comment on above: Performed By: #### C MP #### [facility] [address] [address] [address] Reema Mireles Creatinine [Mass/Vol] 0.87 mg/dL Normal 0.55-1.02 [facility] Comment on above: Performed By: #### C MP #### [facility] [address] [address] [address] Reema Mireles EGFR-AF HUNGARIAN >60 Normal >=60 [facility] Comment on above: Performed By: #### C MP #### [facility] [address] [address] [address] Reema Mireles EGFR-NON AF HUNGARIAN >60 Normal >=60 [facility] Comment on above: Performed By: #### C MP #### [facility] [address] [address] [address] Reema Mireles Globulin (S) [Mass/Vol] 3.5 g/dL Normal [facility] Comment on above: Performed By: #### C MP #### [facility] [address] [place] [address] Dr. Reema Mireles Glucose [Mass/Vol] 109 mg/dL Critically high 74-106 [facility] Comment on above: Performed By: #### C MP #### [facility] [address] [address] [address] Reema Mireles Potassium [Moles/Vol] 3.3 mmol/L Critically low 3.5-5.1 [facility] Comment on above: Performed By: #### C MP #### [facility] [address] [place] [address] Dr. Reema Mireles Protein [Mass/Vol] 8.0 g/dL Normal 6.4-8.2 [facility] Comment on above: Performed By: #### C MP #### [facility] [address] [address] [address] Reema Mireles Sodium [Moles/Vol] 139 mmol/L Normal 136-145 [facility] Comment on above: Performed By: #### C MP #### [facility] [address] [address] [address] Reema Mireles Urea nitrogen [Mass/Vol] 9.0 mg/dL Normal 7.0-18.0 [facility] Comment on above: Performed By: #### C MP #### [facility] [address] [place] [address] Dr. Reema Mireles Urea nitrogen/Creatinine [Mass ratio] 10.3 mg/mg Normal [facility] Comment on above: Performed By: #### C MP #### [facility] [address] [place] [address] Dr. Reema Mireles URINE MICROSCOPIC ONLYon BACTERIA NONE SEEN Normal NONE SEEN [facility] Comment on above: Performed By: #### B MP, TSH #### [facility] [address] [place] [address] Dr. Reema Mireles Bacteria identified Cx Nom (U) NOT INDICATED Normal [facility] Comment on above: Performed By: #### B MP, TSH #### [facility] [address] [place] [address] Dr. Reema Mireles CAST NONE SEEN Normal NONE SEEN [facility] Comment on above: Performed By: #### B MP, TSH #### [facility] [address] [place] [address] Dr. Reema Mireles Crystals LM Nom (Urine sed) NONE SEEN Normal NONE SEEN [facility] Comment on above: Performed By: #### B MP, TSH #### [facility] [address] [place] [address] Dr. Reema Mireles Epithelial cells LM Ql (Urine sed) RARE Normal NONE SEEN /RARE [facility] Comment on above: Performed By: #### B MP, TSH #### [facility] [address] [place] [address] Dr. Reema Mireles MUCOUS NONE SEEN Normal NONE SEEN [facility] Comment on above: Performed By: #### B MP, TSH #### [facility] [address] [place] [address] Dr. Reema Mireles RBC 0-2 Normal 0-2 [facility] Comment on above: Performed By: #### B MP, TSH #### [facility] [address] [place] [address] Dr. Reema Mireles WBC NONE SEEN Normal NONE SEEN [facility] Comment on above: Performed By: #### B MP, TSH #### [facility] [address] [place] [address] Dr. Reema Mireles CBC AUTO DIFFon 10-25-2021 BASO # 0.0 103/ul Normal 0.0-0.1 [facility] Comment on above: Performed By: #### C BC #### [facility] [address] [place] [address] Dr. Reema Mireles Basophils/100 WBC (Bld) 0.6 % Normal 0.2-2.0 [facility] Comment on above: Performed By: #### C BC #### [facility] [address] [place] [address] Dr. Reema Mireles EO # 0.1 103/ul Normal 0.0-0.7 [facility] Comment on above: Performed By: #### C BC #### [facility] [address] [place] [address] Dr. Reema Mireles Eosinophils/100 WBC (Bld) 1.8 % Normal 0.9-7.0 [facility] Comment on above: Performed By: #### C BC #### [facility] [address] [place] [address] Dr. Reema Mireles Erythrocyte distribution width (RBC) [Ratio] 11.9 % Normal 11.0-15.0 [facility] Comment on above: Performed By: #### C BC #### [facility] [address] [place] [address] Dr. Reema Mireles Hematocrit (Bld) [Volume fraction] 38.1 % Normal 36.0-48.0 [facility] Comment on above: Performed By: #### C BC #### [facility] [address] [place] [address] Dr. Reema Mireles Hemoglobin (Bld) [Mass/Vol] 13.1 g/dL Normal 12.0-16.0 [facility] Comment on above: Performed By: #### C BC #### [facility] [address] [place] [address] Dr. Reema Mireles IG # 0.01 10e3/ul Normal 0.00-0.03 [facility] Comment on above: Performed By: #### C BC #### [facility] [address] [place] [address] Dr. Reema Mireles IG % 0.1 % Normal 0.0-0.5 [facility] Comment on above: Performed By: #### C BC #### [facility] [address] [place] [address] Dr. Reema Mireles LYMPH # 1.9 103/ul Normal 1.2-3.8 [facility] Comment on above: Performed By: #### C BC #### [facility] [address] [place] [address] Dr. Reema Mireles Lymphocytes/100 WBC (Bld) 27.8 % Normal 20.5-60.0 [facility] Comment on above: Performed By: #### C BC #### [facility] [address] [place] [address] Dr. Reema Mireles MANUAL DIFF REQ NO Normal [facility] Comment on above: Performed By: #### C BC #### [facility] [address] [place] [address] Dr. Reema Mireles MCH (RBC) [Entitic mass] 30.5 pg Normal 26.7-34.0 [facility] Comment on above: Performed By: #### C BC #### [facility] [address] [place] [address] Dr. Reema Mireles MCHC (RBC) [Mass/Vol] 34.4 g/dL Normal 29.9-35.2 [facility] Comment on above: Performed By: #### C BC #### [facility] [address] [place] [address] Dr. Reema Mireles MCV (RBC) [Entitic vol] 88.8 fL Normal 81.0-99.0 [facility] Comment on above: Performed By: #### C BC #### [facility] [address] [place] [address] Dr. Reema Mireles MONO # 0.8 103/ul Normal 0.3-0.8 [facility] Comment on above: Performed By: #### C BC #### [facility] [address] [place] [address] Dr. Reema Mireles Monocytes/100 WBC (Bld) 11.2 % Normal 1.7-12.0 [facility] Comment on above: Performed By: #### C BC #### [facility] [address] [place] [address] Dr. Reema Mireles NEUT # 4.0 103/ul Normal 1.4-6.5 [facility] Comment on above: Performed By: #### C BC #### [facility] [address] [place] [address] Dr. Reema Mireles Neutrophils/100 WBC (Bld) 58.5 % Normal 43.0-75.0 [facility] Comment on above: Performed By: #### C BC #### [facility] [address] [place] [address] Dr. Reema Mireles Platelet mean volume (Bld) [Entitic vol] 10.0 fL Normal 9.5-13.5 [facility] Comment on above: Performed By: #### C BC #### [facility] [address] [place] [address] Dr. Reema Mireles PLT 361 103/ul Normal 150-450 [facility] Comment on above: Performed By: #### C BC #### [facility] [address] [place] [address] Dr. Reema Mireles RBC 4.29 106/ul Normal 4.20-5.40 [facility] Comment on above: Performed By: #### C BC #### [facility] [address] [place] [address] Dr. Reema Mireles WBC 6.8 103/ul Normal 4.0-11.0 [facility] Comment on above: Performed By: #### C BC #### [facility] [address] [place] [address] Dr. Reema Mireles PREG QUANT HCGon 10-25-2021 HCG QUANT 1 mIU/mL Normal [facility] Comment on above: Performed By: #### P REGQNT #### [facility] [address] [place] [address] Dr. Reema Mireles HCG RANGE SEE BELOW Normal [facility] Comment on above: Result Comment: 5-50 0-1 WEEK 40-300 1-2 WEEKS 100-1,000 2-3 WEEKS 500-6,000 3-4 WEEKS 5,000-200,000 1-2 MONTHS 10,000-100,000 2-3 MONTHS 3,000-50,000 2ND TRIMESTER 1,000-50,000 3RD TRIMESTER Performed By: #### P REGQNT #### [facility] [address] [address] [address] Reema Mireles Covid-19 PCR ([facility])on 09-29 SARS-CoV-2 (COVID-19) RNA FRANKIE+probe Ql (Unsp spec) Not detected Normal NOT DETECTED [facility] Comment on above: Result Comment: This test is not yet approved or cleared by the [place] FDA. When there are no FDA-approved or cleared tests available, and other criteria are met, FDA can make tests available under an emergency access mechanism called an Emergency Use Authorization (EUA). The EUA for this test is supported by the Instrumental Musician of Health and Human Service's (HHS's) declaration [...] SARS-CoV-2. Performed By: #### C VDTB #### [facility] [address] [place], [place] [address] Dr. Reema Mireles Vital Signs Date Time Vital Sign Value Performing Clinician Facility 11-12-2023 14:15-0500 Body weight 108.86 kg [employer] Work Phone: [facility] 11-12-2023 14:15-0500 Diastolic blood pressure 72 mm[Hg] [employer] Work Phone: [facility] 11-12-2023 14:15-0500 Systolic blood pressure 122 mm[Hg] Devan Tello DO Work Phone: [facility] 04-12-2022 21:04-0400 Diastolic blood pressure 84 mm[Hg] [facility] 04-12-2022 21:04-0400 Heart rate 82 /min [facility] 04-12-2022 21:04-0400 Respiratory rate 16 /min [facility] 04-12-2022 21:04-0400 SaO2% (BldA) [Mass fraction] 98 % [facility] 04-12-2022 21:04-0400 Systolic blood pressure 120 mm[Hg] [facility] 04-12-2022 20:32-0400 gluc 80 mg/dL [facility] Comment on above: Result Comment: not taken due to pt refu jimmie of any injection 04-12-2022 20:32-0400 gluc [facility] 04-12-2022 19:25-0400 Body temperature 99.32 [degF] [facility] 04-12-2022 19:25-0400 Diastolic blood pressure 84 mm[Hg] [facility] 04-12-2022 19:25-0400 Heart rate 90 /min [facility] 04-12-2022 19:25-0400 Respiratory rate 18 /min [facility] 04-12-2022 19:25-0400 SaO2% (BldA) [Mass fraction] 98 % [facility] 04-12-2022 19:25-0400 Systolic blood pressure 118 mm[Hg] [facility] 04-09-2022 12:20-0400 Body height 165.1 cm Deonna Back Other [facility] 04-09-2022 12:20-0400 Body mass index (BMI) [Ratio] 35.61 kg/m2 Deonna Cavanaughmond Other [facility] 04-09-2022 12:20-0400 Body temperature 98.4 [degF] Deonna Nazanin Other [facility] 04-09-2022 12:20-0400 Body weight 97.07 kg Deonna Nazanin Other [facility] 04-09-2022 12:20-0400 Diastolic blood pressure 83 mm[Hg] Deonna Nazanin Other [facility] 04-09-2022 12:20-0400 Respiratory rate 18 /min Deonna Cavanaughmond Other [facility] 04-09-2022 12:20-0400 SaO2% (BldA) [Mass fraction] 99 % Deonna Nazanin Other [facility] 04-09-2022 12:20-0400 Systolic blood pressure 135 mm[Hg] Deonna Nazanin Other [facility] 04-02-2022 19:00-0400 Body height 165.1 cm Deonna Nazanin Other [facility] 04-02-2022 19:00-0400 Body mass index (BMI) [Ratio] 35.71 kg/m2 Deonna Nazanin Other [facility] 04-02-2022 19:00-0400 Body temperature 98.1 [degF] Deonna Nazanin Other [facility] 04-02-2022 19:00-0400 Body weight 97.34 kg Deonna Back Other [facility] 04-02-2022 19:00-0400 Diastolic blood pressure 83 mm[Hg] Deonna Back Other [facility] 04-02-2022 19:00-0400 Respiratory rate 18 /min Deonna Back Other [facility] 04-02-2022 19:00-0400 SaO2% (BldA) [Mass fraction] 100 % Deonna Back Other [facility] 04-02-2022 19:00-0400 Systolic blood pressure 134 mm[Hg] Deonna Back Other [facility] Other Encounters Encounter Date Encounter Type Care [...] 04-12-2022 End: 04-12-2022 Emergency department patient visit [facility] Start: 04-10-2022 End: 04-10-2022 ambulatory Deonna Back Other [facility] Start: 04-10-2022 Telephone encounter Deonna Back [facility] Start: 04-09-2022 End: 04-09-2022 ambulatory Deonna Back Other [facility] Start: 04-09-2022 Office outpatient vi sit 15 minutes Deonna Back [facility] Start: 04-09-2022 End: 04-09-[address] LUIS ANTONIO SUTTON Facility:[facility] Start: 04-02-2022 (URG) Urgent Care Visit Deonna Silva d [facility] Start: 04-02-2022 End: 04-02-2022 ambulatory Deonna Back Other [facility] Start: 10-25-2021 End: 10-25-[address] ADRYAN MARIE Facility:[facility] Start: 10-24-2021 Encounter for preprocedural laboratory examination DR DEVAN TELLO [facility] Start: 10-22-2021 End: 10-23-[address] ADRYAN MARIE Facility:[facility] Start: 10-22-2021 End: 10-23-2021 Encounter for preprocedural laboratory examination DR ADRYAN MARIE Facility:[facility] Start: 10-19-2021 Encounter for other preprocedural examination DR DEVAN TELLO [facility] Start: 10-17-2021 End: 10-18-[address] [...] Routine [facility] [address] [place] [id number] Cydney Leos PA [address] [place] [address] [facility] Start: 11-26-2023 End: 11-26-2023 Professional / ancillary services management 11/26/2023 10:30 AM EST Ancillary Procedure [facility] [address] [place] [id number] [facility] Start: 11-12-2023 End: 11-12-2024 [...] [address] [facility] [place] [address] Devan Tello, [address] [facility] [place] [address] [facility] Payers Date Payer Category Payer Unknown [facility] [id number] 2023-Present [address] [place] [address] [id number] 2023 Unknown [id number] 2001 Unknown [id number] 2.16.840.1.618567.3.579.2. 593 2001 Unknown [id number] 2.16.840.1.430003.3.579.2. 593 2001 Unknown [id number] 2.16.840.1.970784.3.579.2. 593 2001 Unknown [id number] 2.16.840.1.106640.3.579.2. 593 2001 Unknown [id number] 2.16.840.1.443644.3.579.2. 593 2001 Unknown [id number] 2.16.840.1.375971.3.579.2. 593 2001 Unknown [id number] 2.16.840.1.114679.3.579.2. 593 2001 Unknown [id number] 2.16.840.1.627830.3.579.2. 593 2001 Unknown [id number] 2.16.840.1.818315.3.579.2. 593 2001 Unknown [id number] 2.16.840.1.278584.3.579.2. 593 2001 Unknown [id number] 2.16.840.1.100982.3.579.2. 593 2001 Unknown [id number] 2.16.840.1.307680.3.579.2. 1259 2001 Unknown [id number] 2.16.840.1.096168.3.579.2. 1259 2001 Unknown [id number] 2.16.840.1.469008.3.579.2. 1259 2001 Unknown [id number] 2.16.840.1.907327.3.579.2. 1259 2001 Unknown [id number] 2.16.840.1.870127.3.579.2. 1259 1958 [facility] [id number] 2.16.840.1.533052.19 Social History Date Type Detail Facility Unknown if ever smoked [facility] Drug Response Dx Other Sex Assigned At [facility] Drug Response Dx Other Tobacco smoking status No Smoking Status Entered [facility] Start: 06-20-2023 Tobacco smoking status [facility] Tobacco smoking consumption unknown [facility] Start: 10-15-2023 Alcohol intake Lifetime non-d hermes (finding) [facility] Start: 06-20-2023 Tobacco Comment Current smoker (frequency unknown) [facility] Start: 05-06-2023 [facility] Start: 2001 Sex Assigned At Not on file [facility] Goals Date Patient Goal Desired Activity /State Personal health goal Functional Status Date Assessment Result Facility 04-12-2022 Functional Status N/A [facility] History of Present illness Narrative [...] Devan Tello DO documented in this encounter [facility] Discharge instructions 04-12-2022 Note Date & [...] help with your condition: Managing pain Take kzhp-dyg-iasqihz and prescription medicines only as told by [...] 09/14/2006 Document Revised: 04/04/2019 Document Reviewed: 04/04/2019 [facility] Patient Education 2020 [employer]. 04/12/2022 21:07:38 Vertigo Vertigo Vertigo is the [...] if you feel dizzy. General instructions Take qsok-ias-uevspdc and prescription medicines only as told by [...] 06/24/2006 Document Revised: 08/08/2019 Document Reviewed: 08/08/2019 [facility] Patient Education [employer] Follow Up Care 04/12/2022 19:25:17 With:ADRYAN MARIE Address: [address] [place] [address]- Business (1) When:04/15/2022 20:55:24 Comments:Return to the emergency room if her headache gets worse, vertigo becomes persistent or any new symptoms [facility] Evaluation note 04-09-2022 Note Date & Type [...] She was prescribed Zofran with no improvement. [facility] Other Evaluation note 04-02-2022 Note Date & [...] 3 days. No swimming for a week [facility] Other Clinical Note 10-25-2021 Note Date & Type Note Facility 10-25-2021 Note OPERATIVE NOTE PROCEDURE: Diagnostic laparoscopy. PREOPERATIVE DIAGNOSIS: Pelvic pain, dyspareunia dysmenorrhea. POSTOPERATIVE DIAGNOSIS: Pelvic pain, dyspareunia dysmenorrhea. ANESTHESIA: General. SURGEON: Devan Tello D.O. TABLET REPAIR: JAE Worley URINE OUTPUT: Yellow and clear. [...] taken to Recovery Room in stable condition. [facility] Signed and Approved by: DR DEVAN TELLO . 11/01/2021 17:31:00 [facility] Evaluation + Plan note Note Date & Type Note Facility Evaluation + Plan note No data available for this section [facility] Evaluation note Note Date & Type Note Facility Evaluation note No Information [facility] [employer] Other Evaluation note Note Date & Type [...] endometriosis Hospitalization History RSV as a baby [facility] Drug Response Dx Other Progress note Note Date & Type Note Facility Progress note No data available for this section [facility] Summary Purpose Family History No Family History Records FoundNo Family History Records FoundNo Family History Records Found Advance Directives No Advanced Directives Records FoundNo Advanced Directives Records FoundNo Advanced Directives Records Found Additional Source Comments REASON FOR VISIT (unrecogniz ed section and content) Reason Comments Routine Visit Care Team (unrecognized sect ion and content) [employer] Relationship Specialty Start Date End Date Adryan Marie MD [address] [place] [address] PCP - General Family Medicine 06/19/23 [employer] Relationship Specialty Start Date End Date Adryan Marie MD [address] [place] [address] PCP - General Family Medicine 06/19/23 INFORMATION SOURCE (unrecogn ized section and content) DATE CREATED AUTHOR 04/26/2022 Octavio Mayberry [facility] DATE CREATED AUTHOR AUTHOR'S ORGANIZ ATION 09/19/2022 [facility] DATE CREATED AUTHOR AUTHOR'S ORGANIZ ATION 11/28/2023 [facility] FOR RECORDS PERTAINING TO PATIENTS WHO [...] BE BASED ON THE PRIMARY CLINICAL RECORDS. [employer] provides no warranty or guarantee of the accuracy or completeness of information in this document.
[2023-12-12 08:04] VITALS: BP 180/70; PULSE 121
[2023-12-12 08:06] VITALS: BP 165/72; PULSE 118
[2023-12-12 08:34] VITALS: BP 133/61; PULSE 109
== END 2023-12-12 08:38 | disposition home or self-care (01) ==
LOC: FBCO 00:07 → FBC 07:58
PROVIDERS: PCP Family Medicine; Visit Provider Obstetrics & Gynecology
DX: O36.63X0 Maternal care for excessive fetal growth, third trimester, not applicable or unspecified (principal)
CPT/HCPCS: 59025

== ENCOUNTER 2023-12-16 08:05 | Outpatient (OUT) | payer OTHER, SELFPAY ==
--- OUTSIDE RECORDS SUMMARY | 2023-12-16 08:50 | XMS_ITS | CCD ---
Author Organization [employer] Care Team Providers Care Energy Control Officer Name Role Phone Deonna Back Unavailable DEFJAILENE, ADRYAN Primary Care Physician LESLEY, DR LUIS ANTONIO Jorge Consulting Unavailable LESLEY, DR LUIS ANTONIO Jorge Attending Unavailable DEFRANCE, DR CORNELIUS Primary Care Unavailable LESLEY, DR LUIS ANTONIO Jorge Admitting Unavailable DEFRANCE, DR CORNELIUS Primary Care Unavailable DIETER GONZALEZ Admitting Unavailable DIETER GONZALEZ Attending Unavailable CHIKA LEOS Consulting Unavailable DEFRANCE, DR CORNELIUS Primary Care Unavailable PATEL, DR BOLAÑOS Consulting Unavailable BETTY, DR ESPINOZA Attending Unavailable HAY, DR ESPINOZA Admitting Unavailable AURELIA CARLOS Consulting Unavailable SUTTON, DR LUIS ANTONIO Jorge Consulting Unavailable DEFRANCE, [...] OMER, DR HARTMAN Attending Unavailable OMER, DR AHRTMAN Admitting Unavailable OMER, DR HARTMAN Consulting Unavailable [...] GONZALEZ Attending Unavailable DIETER GONZALEZ Admitting Unavailable Defrance Adryan OBRIEN Primary Care Provider CYDNEY LEOS Attending Unavailable CYDNEY LEOS Attending Unavailable DEVAN TELLO Attending Unavailable DEVAN TELLO Attending Unavailable CYDNEY LEOS Attending Unavailable DEVAN TELLO Attending Unavailable Allergies Allergy Classification Reported Allergen(s) Allergy Type Date of Onset Reaction(s) Facility (3 sources) Sulfacetamide Drug Allergy rash [employer] Other (1 source) Sulfonamides (Antibiotic); Translations: [sulfa drugs] Drug allergy Hyperpyrexia (finding) [facility] (1 source) Sulfonamides (Antibiotic) Drug allergy (disorder) 07-26-20 14 [facility] (3 sources) Sulfonamides (Antibiotic) Drug Intolerance 06-17-20 [...] BY MOUTH EVERY MORNING 0 10/06/2023 Active CY-Mog-RX-[place]-3 ( Gummies/DHA & FA) 0.4-32.5 MG chewable tablet (3 sources) Start: 06-19-2023 End: 06-18-2024 AX-Blt-ZT-[place]-3 ( Gummies/DHA & FA) 0.4-32.5 MG chewable tablet Indications: Missed menses Chew 32.5 mg in the morning. 30 tablet 11 06/19/2023 06/18/2024 Active Completed/Discontinued Medications Medication Drug Class(es) Dates Sig (Normalized) Sig (Original) [id number] 200 actuat albuterol 0.09 mg/actuat metered dose [...] / neomycin 3.5 mg/ml / polymyxin b 16302 unt/ml otic suspension (3 sources) Aminoglycoside Antibacterial, Polymyxin-class Antibacterial, Corticosteroid Start: 04-02-2022 Neomycin-Polymyx in-HC 3.5-75174-6 3 drops left ear Three times a [...] UA Negative Negative - 4(70) +++ mg/dL [facility] Blood, UA Negative Negative - 50 Cedric/mcL [facility] Clarity, UA Clear [facility] re Color, UA [facility] Glucose, UA Negative Negative - 1999(110) ++++ mg/dL [facility] Interpretation and review of laboratory results Normal [facility] Ketones, UA Negative Negative - 160(16) ++++ mg/dL [facility] Leukocytes, UA Negative Negative - 500+++ Alessandro/mcL [facility] Nitrite, UA Negative Negative - Positive [facility] pH, UA 6.0 5 - 9 Merged with [facility] e Protein, UA Negative Negative - 1999(20) ++++ mg/dL [facility] Spec Grav, UA 1.020 1 - 1.03 [facility] Urobilinogen, UA 0.2 0.2 - 12 mg/dL [facility] Health[facility] e ALL CBC WITH AUTO DIFFon BASOPHILS ABSOLUTE AUTO 0.0 [facility] Basophils/100 WBC (Bld) 0.3 % 0.2 - 2.0 % [facility] Eosinophils/100 WBC (Bld) 1.0 % 0.9 - 7.0 % [facility] Erythrocyte distribution width (RBC) [Ratio] 12.5 % 11.0 - 15.0 % [facility] Hematocrit (Bld) [Volume fraction] 35.1 % Low 36.0 - 48.0 % [facility] Hemoglobin (Bld) [Mass/Vol] 11.7 g/dL Low 12.0 - 16.0 g/dL [facility] IMMATURE GRANULOCYTES ABS AUTO 0.08 High [facility] Immature granulocytes/100 WBC (Bld) 0.6 % High 0.0 - 0.5 % [facility] Interpretation and review of laboratory results Abnormal [facility] LYMPHOCYTES ABSOLUTE AUTO 1.6 [facility] Lymphocytes/100 WBC (Bld) 11.9 % Low 20.5 - 60.0 % [facility] MCH (RBC) [Entitic mass] 30.7 pg 26.7 - 34.0 pg [facility] MCHC (RBC) [Mass/Vol] 33.3 g/dL 29.9 - 35.2 g/dL [facility] MCV (RBC) [Entitic vol] 92.1 fL 81.0 - 99.0 fL [facility] MONOCYTES ABSOLUTE AUTO 0.8 [facility] Monocytes/100 WBC (Bld) 5.5 % 1.7 - 12.0 % [facility] NEUTROPHILS ABSOLUTE AUTO 11.1 High [facility] Neutrophils/100 WBC (Bld) 80.7 % High 43.0 - 75.0 % [facility] Platelet mean volume (Bld) [Entitic vol] 10.6 fL 9.5 - 13.5 fL [facility] Healthc are [facility] EO # 0.1 [facility] Healthcar e [facility] PLT 292 [facility] RBC 3.81 Low [facility] e [facility] WBC 13.8 High [facility] CBC AUTO DIFFon 09-14-2022 BASO # 0.0 103/ul Normal 0.0-0.1 [facility] Comment on above: Performed By: #### B GURPREET, TSH #### [facility] [address] [place] [address] Dr. Reema Mireles Basophils/100 WBC (Bld) 0.6 % Normal 0.2-2.0 [facility] Comment on above: Performed By: #### B GURPREET, TSH #### [facility] [address] [place] [address] Dr. Reema Mireles EO # 0.0 103/ul Normal 0.0-0.7 [facility] Comment on above: Performed By: #### B GURPREET, TSH #### [facility] [address] [place] [address] Dr. Reema Mireles Eosinophils/100 WBC (Bld) 0.6 % Critically low 0.9-7.0 [facility] Comment on above: Performed By: #### B GURPREET, TSH #### [facility] [address] [place] [address] Dr. Reema Mireles Erythrocyte distribution width (RBC) [Ratio] 11.9 % Normal 11.0-15.0 [facility] Comment on above: Performed By: #### B GURPREET, TSH #### [facility] [address] [place] [address] Dr. Reema Mireles Hematocrit (Bld) [Volume fraction] 37.8 % Normal 36.0-48.0 [facility] Comment on above: Performed By: #### Inna VÁZQUEZ, TSH #### [facility] [address] [place] [address] Dr. Reema Mireles Hemoglobin (Bld) [Mass/Vol] 13.5 g/dL Normal 12.0-16.0 [facility] Comment on above: Performed By: #### Inna VÁZQUEZ, TSH #### [facility] [address] [place] [address] Dr. Reema Mireles IG # 0.01 10e3/ul Normal 0.00-0.03 [facility] Comment on above: Performed By: #### Inna VÁZQUEZ, TSH #### [facility] [address] [place] [address] Dr. Reema Mireles IG % 0.2 % Normal 0.0-0.5 [facility] Comment on above: Performed By: #### B GURPREET, TSH #### [facility] [address] [place] [address] Dr. Reema Mireles LYMPH # 1.6 103/ul Normal 1.2-3.8 [facility] Comment on above: Performed By: #### B GURPREET, TSH #### [facility] [address] [place] [address] Dr. Reema Mireles Lymphocytes/100 WBC (Bld) 25.5 % Normal 20.5-60.0 [facility] Comment on above: Performed By: #### Inna VÁZQUEZ, TSH #### [facility] [address] [place] [address] Dr. Reema Mireles MANUAL DIFF REQ NO Normal [facility] Comment on above: Performed By: #### B MP, TSH #### [facility] [address] [place] [address] Dr. Reema Mireles MCH (RBC) [Entitic mass] 30.9 pg Normal 26.7-34.0 [facility] Comment on above: Performed By: #### B MP, TSH #### [facility] [address] [place] [address] Dr. Reema Mireles MCHC (RBC) [Mass/Vol] 35.7 g/dL Critically high 29.9-35.2 [facility] Comment on above: Performed By: #### B GURPREET, TSH #### [facility] [address] [place] [address] Dr. Reema Mireles MCV (RBC) [Entitic vol] 86.5 fL Normal 81.0-99.0 [facility] Comment on above: Performed By: #### B GURPREET, TSH #### [facility] [address] [place] [address] Dr. Reema Mireles MONO # 0.5 103/ul Normal 0.3-0.8 [facility] Comment on above: Performed By: #### B GURPREET, TSH #### [facility] [address] [place] [address] Dr. Reema Mireles Monocytes/100 WBC (Bld) 8.5 % Normal 1.7-12.0 [facility] Comment on above: Performed By: #### B GURPREET, TSH #### [facility] [address] [place] [address] Dr. Reema Mireles NEUT # 4.1 103/ul Normal 1.4-6.5 [facility] Comment on above: Performed By: #### B MP, TSH #### [facility] [address] [place] [address] Dr. Reema Mireles Neutrophils/100 WBC (Bld) 64.6 % Normal 43.0-75.0 [facility] Comment on above: Performed By: #### B GURPREET, TSH #### [facility] [address] [place] [address] Dr. Reema Mireles Platelet mean volume (Bld) [Entitic vol] 9.9 fL Normal 9.5-13.5 [facility] Comment on above: Performed By: #### B MP, TSH #### [facility] [address] [place] [address] Dr. Reema Mireles PLT 403 103/ul Normal 150-450 [facility] Comment on above: Performed By: #### B MP, TSH #### [facility] [address] [place] [address] Dr. Reeam Mireles RBC 4.37 106/ul Normal 4.20-5.40 [facility] Comment on above: Performed By: #### B MP, TSH #### [facility] [address] [place] [address] Dr. Reema Mireles WBC 6.3 103/ul Normal 4.0-11.0 [facility] Comment on above: Performed By: #### B MP, TSH #### [facility] [address] [place] [address] Dr. Reema Mireles PROF 14(COMP METB)on 022 Albumin [Mass/Vol] 4.3 g/dL Normal 3.4-5.0 [facility] Comment on above: Performed By: #### B MP, TSH #### [facility] [address] [place] [address] Dr. Reema Mireles Albumin/Globulin [Mass ratio] 1.2 {ratio} Normal [facility] Comment on above: Performed By: #### B MP, TSH #### [facility] [address] [place] [address] Dr. Reema Mireles ALP [Catalytic activity/Vol] 79 U/L Normal 46-116 [facility] Comment on above: Performed By: #### B MP, TSH #### [facility] [address] [place] [address] Dr. Reema Mireles ALT [Catalytic activity/Vol] 31 U/L Normal 14-59 [facility] Comment on above: Performed By: #### B MP, TSH #### [facility] [address] [address] [address] Reema Mireles Anion gap [Moles/Vol] 12.1 mmol/L Normal [facility] Comment on above: Performed By: #### B MP, TSH #### [facility] [address] [place] [address] Dr. Reema Mireles AST [Catalytic activity/Vol] 17 U/L Normal 15-37 [facility] Comment on above: Performed By: #### B MP, TSH #### [facility] [address] [place] [address] Dr. Reema Mireles Bilirubin [Mass/Vol] 0.4 mg/dL Normal 0.2-1.0 [facility] Comment on above: Performed By: #### B GURPREET, TSH #### [facility] [address] [place] [address] Dr. Reema Mireles Calcium [Mass/Vol] 8.9 mg/dL Normal 8.5-10.1 [facility] Comment on above: Performed By: #### B GURPREET, TSH #### [facility] [address] [place] [address] Dr. Reema Mireles Chloride [Moles/Vol] 98 mmol/L Normal 98-107 [facility] Comment on above: Performed By: #### B GURPREET, TSH #### [facility] [address] [place] [address] Dr. Reema Mireles CO2 [Moles/Vol] 27.0 mmol/L Normal 21.0-32.0 [facility] Comment on above: Performed By: #### B GURPREET, TSH #### [facility] [address] [place] [address] Dr. Reema Mireles Creatinine [Mass/Vol] 0.65 mg/dL Normal 0.55-1.02 [facility] Comment on above: Performed By: #### B GURPREET, TSH #### [facility] [address] [place] [address] Dr. Reema Mireles EGFR-AF BERMUDIAN >60 Normal >=60 [facility] Comment on above: Performed By: #### B GURPREET, TSH #### [facility] [address] [address] [address] Reema Mireles EGFR-NON AF BERMUDIAN >60 Normal >=60 [facility] Comment on above: Performed By: #### B GURPREET, TSH #### [facility] [address] [address] [address] Reema Mireles Globulin (S) [Mass/Vol] 3.5 g/dL Normal [facility] Comment on above: Performed By: #### B GURPREET, TSH #### [facility] [address] [address] [address] Reema Mireles Glucose [Mass/Vol] 106 mg/dL Normal 74-106 [facility] Comment on above: Performed By: #### B GURPREET, TSH #### [facility] [address] [address] [address] Reema Mireles Potassium [Moles/Vol] 3.1 mmol/L Critically low 3.5-5.1 [facility] Comment on above: Performed By: #### B GURPREET, TSH #### [facility] [address] [place] [address] Dr. Reema Mireles Protein [Mass/Vol] 7.8 g/dL Normal 6.4-8.2 [facility] Comment on above: Performed By: #### B GURPREET, TSH #### [facility] [address] [place] [address] Dr. Reema Mireles Sodium [Moles/Vol] 134 mmol/L Critically low 136-145 [facility] Comment on above: Performed By: #### B GURPREET, TSH #### [facility] [address] [place] [address] Dr. Reema Mireles Urea nitrogen [Mass/Vol] 6.0 mg/dL Critically low 7.0-18.0 [facility] Comment on above: Performed By: #### B GURPREET, TSH #### [facility] [address] [place] [address] Dr. Reema Mireles Urea nitrogen/Creatinine [Mass ratio] 9.2 mg/mg Normal [facility] Comment on above: Performed By: #### B GURPREET, TSH #### [facility] [address] [place] [address] Dr. Reema Mireles ACETONE SERUMon 08-11-2022 ACETONE Negative Normal NEGATIVE [facility] Comment on above: Performed By: #### B MP, TSH #### [facility] [address] [place] [address] Dr. Reema Mireles CBC AUTO DIFFon 08-11-2022 BASO # 0.1 103/ul Normal 0.0-0.1 [facility] Comment on above: Performed By: #### B MP, TSH #### [facility] [address] [place] [address] Dr. Reema Mireles Basophils/100 WBC (Bld) 0.5 % Normal 0.2-2.0 [facility] Comment on above: Performed By: #### B GURPREET, TSH #### [facility] [address] [place] [address] Dr. Reema Mireles EO # 0.1 103/ul Normal 0.0-0.7 [facility] Comment on above: Performed By: #### B GURPREET, TSH #### [facility] [address] [place] [address] Dr. Reema Mireles Eosinophils/100 WBC (Bld) 0.7 % Critically low 0.9-7.0 [facility] Comment on above: Performed By: #### B GURPREET, TSH #### [facility] [address] [place] [address] Dr. Reema Mireles Erythrocyte distribution width (RBC) [Ratio] 11.7 % Normal 11.0-15.0 [facility] Comment on above: Performed By: #### B GURPREET, TSH #### [facility] [address] [place] [address] Dr. Reema Mireles Hematocrit (Bld) [Volume fraction] 37.6 % Normal 36.0-48.0 [facility] Comment on above: Performed By: #### B GURPREET, TSH #### [facility] [address] [place] [address] Dr. Reema Mireles Hemoglobin (Bld) [Mass/Vol] 13.1 g/dL Normal 12.0-16.0 [facility] Comment on above: Performed By: #### B MP, TSH #### [facility] [address] [place] [address] Dr. Reema Mireles IG # 0.02 10e3/ul Normal 0.00-0.03 [facility] Comment on above: Performed By: #### B MP, TSH #### [facility] [address] [place] [address] Dr. Reema Mireles IG % 0.2 % Normal 0.0-0.5 [facility] Comment on above: Performed By: #### B MP, TSH #### [facility] [address] [place] [address] Dr. Reema Mireles LYMPH # 2.7 103/ul Normal 1.2-3.8 [facility] Comment on above: Performed By: #### B MP, TSH #### [facility] [address] [place] [address] Dr. Reema Mireles Lymphocytes/100 WBC (Bld) 28.5 % Normal 20.5-60.0 [facility] Comment on above: Performed By: #### B MP, TSH #### [facility] [address] [place] [address] Dr. Reema Mireles MANUAL DIFF REQ NO Normal [facility] Comment on above: Performed By: #### B MP, TSH #### [facility] [address] [place] [address] Dr. Reema Mireles MCH (RBC) [Entitic mass] 30.3 pg Normal 26.7-34.0 [facility] Comment on above: Performed By: #### B MP, TSH #### [facility] [address] [place] [address] Dr. Reema Mireles MCHC (RBC) [Mass/Vol] 34.8 g/dL Normal 29.9-35.2 [facility] Comment on above: Performed By: #### B MP, TSH #### [facility] [address] [place] [address] Dr. Reema Mireles MCV (RBC) [Entitic vol] 87.0 fL Normal 81.0-99.0 [facility] Comment on above: Performed By: #### B MP, TSH #### [facility] [address] [address] [address] Reema Mireles MONO # 0.8 103/ul Normal 0.3-0.8 [facility] Comment on above: Performed By: #### B MP, TSH #### [facility] [address] [place] [address] Dr. Reema Mireles Monocytes/100 WBC (Bld) 8.2 % Normal 1.7-12.0 [facility] Comment on above: Performed By: #### B MP, TSH #### [facility] [address] [place] [address] Dr. Reema Mireles NEUT # 5.9 103/ul Normal 1.4-6.5 [facility] Comment on above: Performed By: #### B MP, TSH #### [facility] [address] [place] [address] Dr. Reema Mireles Neutrophils/100 WBC (Bld) 61.9 % Normal 43.0-75.0 [facility] Comment on above: Performed By: #### B MP, TSH #### [facility] [address] [place] [address] Dr. Reema Mireles Platelet mean volume (Bld) [Entitic vol] 10.2 fL Normal 9.5-13.5 [facility] Comment on above: Performed By: #### B MP, TSH #### [facility] [address] [place] [address] Dr. Reema Mireles PLT 382 103/ul Normal 150-450 [facility] Comment on above: Performed By: #### B MP, TSH #### [facility] [address] [place] [address] Dr. Reema Mireles RBC 4.32 106/ul Normal 4.20-5.40 [facility] Comment on above: Performed By: #### B MP, TSH #### [facility] [address] [place] [address] Dr. Reema Mireles WBC 9.6 103/ul Normal 4.0-11.0 [facility] Comment on above: Performed By: #### B MP, TSH #### [facility] [address] [place] [address] Dr. Reema Mireles CRPon 08-11-2022 CRP [Mass/Vol] mg/L Normal <=1.0 [facility] Comment on above: Performed By: #### B MP, TSH #### [facility] [address] [place] [address] Dr. Reema Mireles ER URINE PROFILEon Bilirubin Ql (U) Negative Normal NEGATIVE [facility] Comment on above: Performed By: #### B MP, TSH #### [facility] [address] [place] [address] Dr. Reema Mireles Clarity (U) CLEAR Normal CLEAR [facility] Comment on above: Performed By: #### B MP, TSH #### [facility] [address] [place] [address] Dr. Reema Mireles Color (U) LT. YELLOW Normal YELLOW [facility] Comment on above: Performed By: #### B MP, TSH #### [facility] [address] [place] [address] Dr. Reema RICHARDSONJohana A micrscopic examination will be performed if indicated. Normal [facility] Comment on above: Performed By: #### B MP, TSH #### [facility] [address] [place] [address] Dr. Reema Mireles Glucose Ql (U) Negative Normal NEGATIVE [facility] Comment on above: Performed By: #### B MP, TSH #### [facility] [address] [place] [address] Dr. Reema Mireles Hemoglobin Ql (U) Negative Normal NEGATIVE [facility] Comment on above: Performed By: #### B MP, TSH #### [facility] [address] [place] [address] Dr. Reema Mireles Ketones Ql (U) Negative Normal NEGATIVE [facility] Comment on above: Performed By: #### B MP, TSH #### [facility] [address] [place] [address] Dr. Reema Mireles LEUKOCYTES Negative Normal NEGATIVE [facility] Comment on above: Performed By: #### B MP, TSH #### [facility] [address] [place] [address] Dr. Reema Mireles Nitrite Ql (U) Negative Normal NEGATIVE [facility] Comment on above: Performed By: #### B MP, TSH #### [facility] [address] [place] [address] Dr. Reema Mireles pH (U) 5.5 [pH] Normal 5-9 [facility] Comment on above: Performed By: #### B MP, TSH #### [facility] [address] [place] [address] Dr. Reema Mireles SPEC GRAVITY <=1.005 Abnormal 1.005-<=1.025 [facility] Comment on above: Performed By: #### B MP, TSH #### [facility] [address] [place] [address] Dr. Reema Mireles UA PROTEIN Negative Normal NEGATIVE/ TRACE [facility] Comment on above: Performed By: #### B MP, TSH #### [facility] [address] [place] [address] Dr. Reema Mireles UR MICRO IND NOT INDICATED Normal [facility] Comment on above: Performed By: #### B MP, TSH #### [facility] [address] [place] [address] Dr. Reema Mireles Urobilinogen Qn (U) 0.2 {Renny'U}/dL Normal 0.2 - 1. 0 [facility] Comment on above: Performed By: #### B MP, TSH #### [facility] [address] [place] [address] Dr. Reema Mireles LIPASEon 08-11-2022 Lipase [Catalytic activity/Vol] 71.0 U/L Critically low 73.0-393.0 [facility] Comment on above: Performed By: #### B MP, TSH #### [facility] [address] [place] [address] Dr. Reema Mireles URon 08-11-2022 , QUAL Negative Normal NEGATIVE [facility] Comment on above: Performed By: #### C VDTBH #### [facility] [address] [address] [address] Reema Mireles PROF 14(COMP METB)on 022 Albumin [Mass/Vol] 4.3 g/dL Normal 3.4-5.0 [facility] Comment on above: Performed By: #### B MP, TSH #### [facility] [address] [address] [address] Reema Mireles Albumin/Globulin [Mass ratio] 1.2 {ratio} Normal [facility] Comment on above: Performed By: #### B MP, TSH #### [facility] [address] [address] [address] Reema Mireles ALP [Catalytic activity/Vol] 70 U/L Normal 46-116 [facility] Comment on above: Performed By: #### B MP, TSH #### [facility] [address] [place] [address] Dr. Reema Mireles ALT [Catalytic activity/Vol] 16 U/L Normal 14-59 [facility] Comment on above: Performed By: #### B MP, TSH #### [facility] [address] [address] [address] Reema Mireles Anion gap [Moles/Vol] 10.5 mmol/L Normal [facility] Comment on above: Performed By: #### B MP, TSH #### [facility] [address] [address] [address] Reema Mireles AST [Catalytic activity/Vol] 8 U/L Critically low 15-37 [facility] Comment on above: Performed By: #### B MP, TSH #### [facility] [address] [address] [address] Reema Mireles Bilirubin [Mass/Vol] 0.3 mg/dL Normal 0.2-1.0 [facility] Comment on above: Performed By: #### B MP, TSH #### [facility] [address] [address] [address] Reema Mireles Calcium [Mass/Vol] 9.0 mg/dL Normal 8.5-10.1 [facility] Comment on above: Performed By: #### B MP, TSH #### [facility] [address] [address] [address] Reema Mireles Chloride [Moles/Vol] 104 mmol/L Normal 98-107 [facility] Comment on above: Performed By: #### B MP, TSH #### [facility] [address] [address] [address] Reema Mireles CO2 [Moles/Vol] 26.5 mmol/L Normal 21.0-32.0 [facility] Comment on above: Performed By: #### B MP, TSH #### [facility] [address] [address] [address] Reema Mireles Creatinine [Mass/Vol] 0.79 mg/dL Normal 0.55-1.02 [facility] Comment on above: Performed By: #### B MP, TSH #### [facility] [address] [address] [address] Reema Mireles EGFR-AF BERMUDIAN >60 Normal >=60 [facility] Comment on above: Performed By: #### B MP, TSH #### [facility] [address] [address] [address] Reema Mireles EGFR-NON AF BERMUDIAN >60 Normal >=60 [facility] Comment on above: Performed By: #### B MP, TSH #### [facility] [address] [address] [address] Reema Mireles Globulin (S) [Mass/Vol] 3.5 g/dL Normal [facility] Comment on above: Performed By: #### B MP, TSH #### [facility] [address] [address] [address] Reema Mireles Glucose [Mass/Vol] 106 mg/dL Normal 74-106 [facility] Comment on above: Performed By: #### B MP, TSH #### [facility] [address] [address] [address] Reema Mireles Potassium [Moles/Vol] 3.0 mmol/L Critically low 3.5-5.1 [facility] Comment on above: Performed By: #### B MP, TSH #### [facility] [address] [place] [address] Dr. Reema Mireles Protein [Mass/Vol] 7.8 g/dL Normal 6.4-8.2 [facility] Comment on above: Performed By: #### B MP, TSH #### [facility] [address] [place] [address] Dr. eRema Mireles Sodium [Moles/Vol] 138 mmol/L Normal 136-145 [facility] Comment on above: Performed By: #### B MP, TSH #### [facility] [address] [place] [address] Dr. Reema Mireles Urea nitrogen [Mass/Vol] 8.0 mg/dL Normal 7.0-18.0 [facility] Comment on above: Performed By: #### B MP, TSH #### [facility] [address] [place] [address] Dr. Reema Mireles Urea nitrogen/Creatinine [Mass ratio] 10.1 mg/mg Normal [facility] Comment on above: Performed By: #### B MP, TSH #### [facility] [address] [place] [address] Dr. Reema Mireles PROTIMEon 08-11-2022 INR Coag (PPP) [Relative time] 1.00 {INR} Normal [facility] Comment on above: Performed By: #### P T, PTT #### [facility] [address] [place] [address] Dr. Reema Mireles INR GUIDELINES SEE BELOW Normal [facility] Comment on above: Result Comment: FELICIANO RED INR: 2.0 - 3.0 CONDITIONS NOT LISTED BELOW 2.5 - 3.5 FOR PROSTHETIC HEART VALVE REPLACEMENT 2.5 - 3.5 RECURRENT THROMBOSIS Performed By: #### P T, PTT #### [facility] [address] [place] [address] Dr. Reema Mireles PT Coag (PPP) [Time] 10.8 s Normal 9.0-11.6 [facility] Comment on above: Performed By: #### P T, PTT #### [facility] [address] [address] [address] Reema Mireles PTTon 08-11-2022 aPTT Coag (Bld) [Time] 30.8 s Normal 22.3-36.2 [facility] Comment on above: Performed By: #### P T, PTT #### [facility] [address] [place] [address] Dr. Reema Mireles SED [facility] 2021 SED RATE 10 mm/hr Normal <=20 [facility] Comment on above: Performed By: #### B MP, TSH #### [facility] [address] [place] [address] Dr. Reema Mireles TSHon 08-11-2022 TSH 3.313 uIU/mL Normal 0.358-3.740 [facility] Comment on above: Performed By: #### B MP, TSH #### [facility] [address] [place] [address] Dr. Reema Mireles Discharge Instructionson Discharge Instructions [id number] #1.00CD:127 Normal [facility] Comment on above: Other Comment: wrong patient STOOL CULTUREon 04-20-2022 Campylobacter Culture Final report Normal [facility] Comment on above: Performed By: #### B MP, TSH #### [facility] [address] [place] [address] Dr. Reema Mireles E coli Shiga Toxin EIA Negative Normal Negative [facility] Comment on above: Performed By: #### B MP, TSH #### [facility] [address] [place] [address] Dr. Reema Mireles Result 1 Comment Normal [facility] Comment on above: Result Comment: No S almonella or Shigella recovered. Performed By: #### B MP, TSH #### [facility] [address] [place] [address] Dr. Reema Mireles Result Comment: No C ampylobacter species isolated. Salmonella/Shigella Screen Final report Normal [facility] Comment on above: Performed By: #### B MP, TSH #### [facility] [address] [place] [address] Dr. Reema Mireles Coding Summary.on 04-14-2022 Coding Summary. CD:[id number] Gh0bWw+PGhlYWQ+PE1FV GTnD88syHQmkX3PZ9kHH V9IDGRJYXQQUY1OUY5yb JO1WElwJ1TojtWa QeemkATiTE43ABc8FYC8 qWuyIWnftF7ddILpA7n7 QzApIC47qM82UZnqYYXu QhL0PqKaftjzzSBj P7wcNbBkyACbGwd+PHRh YmxlIHdpZHRoPScxMDAl HkTfpWfbUF0nXk5fQKMm LWNvbGxhcHNlOiBj e4ehHULfXEtgXM2ecLok C4LdhSA9QWUkd2g4Sa86 dHI+EOJlUEL7lCsyBPrc y658LkZup9pcZDJ4 fABgNGdsJBK9F87ff9G9 XNHyHGMeHUR3hJP3nY0w dXvcrhddU7RccWKsHsI5 XZM2fUIqbC0vqCdk vxuqcO3zQne+J52BBT8F BVIRUI3GAwy5U5XbJodp dHI+EK85FKGqMP74aUPi pNIgm9kdyPn9JbLc XZNjXFV8zMmoKZisq2Br ZGOnQ39llUGyc9K9UMMl nIthbGKhZwKdcAS1gV3n QGjyumcpf7ymckxw Jfxtc7pohz62sA43X15o KJyeIRPbKIF6BZTuTVBy yFrsts5ihJ9cMa5+IDxj g3myd7kylQc2CrXe AOCoudZfiPugPNC2b5Vj Ec26C8LjjGimy2SuEla5 xx00gAZdy5Y1tIT2UZww WPXyjF9pULllLrV9 DSMrHiRlbK99eFPhTPgn Dt8vaYerpYhfLX4xTXXm xmjbLSVugO3oLFZmmZBd fQywOR6kJRVyhpsj e477TlZbZXO3VDBwuYFj A7AnuL2vAiSlJLXkFZSu X7IxbIXtINnoE355ZIkd OeP9IZBnmbGbR6Ah KDOjmWizIcT3z8H7Fs8R r5PrjcqpQSA7KWojWMV1 HjR5ReCbGiY2E4AeLml6 ZSVqeCytKE6wE6Qp WXOcwmremcdjhZY9ZARk HDFbpM80mGGpVBebVm0l w3W2c474SAFaSWQdnV53 Rz5cbSvjSQEziXHD aG7hpccea3bxgdtgBvXo KGIcYXa7DNd6JDLqaYkg TyWdIZE3FqX8GWW0dTVl qV2ibKjjzjrtlH3u Oyc+S82piC8lDZB5WKZ7 labsVKSsfnJrNA96HF46 W9VgVgvgnLKbsGO+PGRp nzRzwGumWC4mJtPk d3qij7ZoIBbiA7PgEMZr FTehSpp7ZMNkNJC8gQB1 yB9vJQNiRKlnq6Z3rPY8 O6JuizKysj2al3dx DBVeUKvwA47ozWSeo5L5 SHPkhOC1KAAgdYoxTiDn hT32Seb+JELcsSnry8Bm Ilmik6wnz4ukeYn2 IjMwJSIgdmFsaWduPSJ0 z6BoKb54C35bUNdxPERc LDVjSISaPOJdqWfjup3n jI4rCx2+PGNvbCB3 bBY9cV0mTMItAdG1GHjf X611QpShrCZzCpzgg3co e3udbUo1KwExDJDtojSq jPrrNBP2e4ZiJe49 E44jPUhqHJAsCMRxVWAh DRNmtVcyss6wdA2eKm2+ RL5if0hfst16hP41sOI+ LJXuUIN6uKzyXRiu RELdyU6eOQcqIiJ7KQZd EoUjfY89fRIzOObqRn6u cNlsvXhuIA1rDPAnmzse t584ClWfr8wsPCAd pMPzCLnqNAO4M26ui1D0 YXJrQQIjMJT5lMA0eD8l bGlnbjogbGVmdDsgdmVy mMikYIfpJWugR305 IHRvcDsnPlBhdGllbnQg TgXhMWz3L4EnYev2EQNg pIjbXC7yhNIaWWlrHk1r zTecdQgpOU6mGWEb lcspf175FeSno8rnSRIz oJFePRbwVBC4V24la2E9 IHSjRBReKXU0fCE9uT2s bGlnbjogbGVmdDsg kwXreGedVYxtLJsyI023 IHRvcDsnPkJpcnRoIERh uKF2RY71YI37tHIxm9S6 iIT6B8JbLWSsvfhs xqgkaOE4QYAyAVOisJ82 Ou2ddWhdQz3lHIWrIJG9 IKHrsOGfE2TnfZ0iUwOx KBOkWGVsT9MmdTYe IYawT524EFzmSeB9NCLn nxDyU2DjCQUutCacPvU0 v2G6Ii1LK6F5TC05JI51 fBHas6Q8zMK4G7To JPXehzmpeozrfLQ2BQQm GBFvjZ99Ai5xcIviUv3h IEOxPMN2QNVupAYoT4Fr sI1wXcQhBNTiEZKd V4EhjGKxKWooI582WXlh DsN1SBNionAiX2EdIEFj tYipMbC1x8V0Hl9BELf1 EH32SP96bCRre9X6 zUV2O9QhOYXpluhxpybh sVY2CWXmOZIavG30Bv7r vEuyXa3rXMOmPAG7ZZNn cORuX3AsmB6jDpRz ZUGwVLMtE6LojRSvAQph L575TUdwUmK5GPKangSn U2IgDZSmcYmsHpU7r5G6 Yi1HIYRvYP41IHK2 pHZ9YN23WQ60L7OvYhuy dGFibGU+PHRhYmxlIHdp ZHRoPScxMDAlJyBzdHls WO9dKu8sUECzTMDg xKrdeOGaNxMoh6qnEEAn EInrYQ6yhGmrS1NyoNF9 ABWub9x7Vd37A51cK5Wj dXA+VCWmpQF8jJM5 hU8qAdSwJlX3KYwnD590 PlQnmCJlBrkuj9msb3zt uJf6NyI9LGKavdBsnFxc KFU7u5YfUj43K42l IHdpZHRoPSIxNSUiIHZh bNoxpo6cgT9aSf1+PGNv jSX1eNA0lE8bVgIwDxR6 KIqkK968TlHykRVa Kwico3rce4gdgOq9OnPx LSDwhmTwwBsxLSZ9m8Ql Co11W7WrxWvqz1FoIup9 tc97wHEdx2K5oKU8 C2KkGBMnnlcjoCHdbKrt IK3oQIDysmocHBVrcO6v EDEhE3y0FfRxSwA5JWng I3KhuqK5YGGooYFz XDovHKN7V83ot7G5XDJn NKWrIJN7yKH1iQ0odJae bjogbGVmdDsgdmVydGlj GPtzFFosY208HJRd aVqbVUXjvA7zXMMqmBPp rXteKO4bVYYbushsRxpX CYTDM26EZ8qCFILDOYGL YYP6T4RzAsx8TPHj kFqiFM5rbBYvHJisPd7t uAsctWizEG7fXUSkzzib MJYrzE8hQQQytKXyfHrn MQ7lJOMytqatf399 GdXvCRO0EGOhzTNcR0Ep fM4xTdCqAUCkNZHmH4Ll sSGiCOcgE690XRnnCmX3 HUAxuhEuE2AtWVQv pHswFaQ1a0I8Oa1sUq7a MV2tUVHuQK95LX54mYFz a0A0nHZ4U1HbTPAeqncx tmhqjCN5IHThKRQf sZ21jRSeIDjkEo6ys6S9 x495VCHoKZFfuS24Zt9m hYynQJEonDPArI4lffxt z1mnuubeFnBvAUIf GUd4VLh2KMJxaFllRyVm YAD0UnY2JUW9uWHsjB0n eJcwxsdjjR3pLtc+MjAg FJCmniH3T0LpDxc6 VHVipFbvEH7tjJKgEBbg Az0icOojyQtjMM7vKGNg bvpsOTLryI1lOXGsiXWa vSzgNP4bAAUkrzpa s425FyQyMED9EQNhyFSl Y0QsvV5zTeCpRNZpCBEj H8MfpTOhLQysN494BDmq JjO4YWEqqeMfX5Ge UTGhxVxzPmO1v7W2Vm7Z DO4ncAG6Y6DoZic2DDAb jPdyVL8oqWVnPMomGw8g cYmxkBcvOA6jYHVm raxsOVKkyS2wLSUksXIu sAseMJ4iATZnfjgob432 ZgJkHKC8YDXokBUwC9Cv hC2hVpXmPSIaWODj L5EzvOAzONznD357CHwo SkV6ADLzdvUpL3JgLZDk sIarWkT1z9T7Et5LgIKw K3QtH2j3B3AbUxmd dHI+EP42FQSmIH75xQEf lMTkp3jvjGy3HwNmNSMt EPS0kEucCBfdw7RlLIGk U66mqRKrh7A5QZOs xEyvwYQiWxUotEE6nO0t NYsxomagl1gvuuuaZuxm z1txjv83wG01K82cVOuu ZHRoPSIzMCUiIHZh fWgben6htK9tPx7+PGNv hZU3tKM0xF0bWlFxNlP9 HJvcT437NcPvtSGyNanc x1ngi1iryYj5UePg PGEafnJtpDsfGWO3t7Mx Uy98T93sVTdcXDDfHOOh MEAwDXCipHjzup4feN0q Ii8+IK6pj0isdq56 yB13eYF+KUMdBYU2cWch NYqrUYVqrU2yCLtrYfA9 LNTnBiRhwH67kDJgLVng Zb9lqAgkrDuiBT0p ISTlvifbo584NrBru3xy UCGlrABaIKqwUHJ6E33t k7O4YIAuXQUqUZR2rPM4 wC3htXyhadrlmVTi dDsgdmVydGljYWwtYWxp X394PFEgxUlwWhCakULy K3jdkpVXGS8cZfetcDW+ SHTxGKM5qFfoXUly AZCouM1eIEGeS5j5ShXl QqX7URtrK0BgpzU9ZYTp tRSqUXQfdDWGdW9weogw h4xmdubpMwWzMVBi VFf9YOt4TPTtqUlyPkPf YCG2EoT7MPM1sWHbbY7w cYawqncicJ4nJgn+RklO OjwvdGQ+PHRkIHN0 tDkfHWucVHWwqZ2wKDJx Q4i3SnJxPdL0CMurF5Dr mjR3VWKmkSKnTMNdoXEC tS7migomi9amukus QeOfUUZjYPm6TQm5QTXe cXozDdSwTPB2CtG4NVS4 bLUdwJ0xmRekshomxJ6e Oyc+TVJOOjwvdGQ+ LFRvZFQ7tNwtFTyoKSIk kH4pWMGvF2s8ElBsBdJ7 HOocR5VxxaZ1IZVrxIYe KISouTNZvV3mstxz o8rwwissTsBeEOCtVIz6 RNc2TSQalXfoClGuNCT9 GnK4PMV1uZRglC3xqDfb zpuxrI9eOmn+UGF5 QIM8MJ66CQ92A6IwZznn dGFibGU+PHRhYmxlIHdp ZHRoPScxMDAlJyBzdHls MO9vAs4aPVLoDXUe bGxh (more content not included)... Normal [facility] CBC AUTO DIFFon 04-13-2022 BASO # 0.1 103/ul Normal 0.0-0.1 [facility] Comment on above: Performed By: #### C VDTBH #### [facility] [address] [place] [address] Dr. Reema Mireles Basophils/100 WBC (Bld) 0.6 % Normal 0.2-2.0 [facility] Comment on above: Performed By: #### C VDTBH #### [facility] [address] [place] [address] Dr. Reema Mireles EO # 0.0 103/ul Normal 0.0-0.7 [facility] Comment on above: Performed By: #### C VDTBH #### [facility] [address] [place] [address] Dr. Reema Mireles Eosinophils/100 WBC (Bld) 0.2 % Critically low 0.9-7.0 [facility] Comment on above: Performed By: #### C VDTBH #### [facility] [address] [place] [address] Dr. Reema Mireles Erythrocyte distribution width (RBC) [Ratio] 11.4 % Normal 11.0-15.0 [facility] Comment on above: Performed By: #### C VDTBH #### [facility] [address] [place] [address] Dr. Reema Mireles Hematocrit (Bld) [Volume fraction] 38.3 % Normal 36.0-48.0 [facility] Comment on above: Performed By: #### C VDTBH #### [facility] [address] [place] [address] Dr. Reema Mireles Hemoglobin (Bld) [Mass/Vol] 13.4 g/dL Normal 12.0-16.0 [facility] Comment on above: Performed By: #### C VDTBH #### [facility] [address] [place] [address] Dr. Reema Mireles IG # 0.01 10e3/ul Normal 0.00-0.03 [facility] Comment on above: Performed By: #### C VDTBH #### [facility] [address] [place] [address] Dr. Reema Mireles IG % 0.1 % Normal 0.0-0.5 [facility] Comment on above: Performed By: #### C VDTBH #### [facility] [address] [place] [address] Dr. Reema Mireles LYMPH # 1.8 103/ul Normal 1.2-3.8 [facility] Comment on above: Performed By: #### C VDTBH #### [facility] [address] [place] [address] Dr. Reema Mireles Lymphocytes/100 WBC (Bld) 22.2 % Normal 20.5-60.0 [facility] Comment on above: Performed By: #### C VDTBH #### [facility] [address] [place] [address] Dr. Reema Mireles MANUAL DIFF REQ NO Normal [facility] Comment on above: Performed By: #### C VDTBH #### [facility] [address] [place] [address] Dr. Reema Mireles MCH (RBC) [Entitic mass] 30.6 pg Normal 26.7-34.0 [facility] Comment on above: Performed By: #### C VDTBH #### [facility] [address] [place] [address] Dr. Reema Mireles MCHC (RBC) [Mass/Vol] 35.0 g/dL Normal 29.9-35.2 [facility] Comment on above: Performed By: #### C VDTBH #### [facility] [address] [place] [address] Dr. Reema Mireles MCV (RBC) [Entitic vol] 87.4 fL Normal 81.0-99.0 [facility] Comment on above: Performed By: #### C VDTBH #### [facility] [address] [place] [address] Dr. Reema Mireles MONO # 0.7 103/ul Normal 0.3-0.8 [facility] Comment on above: Performed By: #### C VDTBH #### [facility] [address] [place] [address] Dr. Reema Mireles Monocytes/100 WBC (Bld) 8.2 % Normal 1.7-12.0 [facility] Comment on above: Performed By: #### C VDTBH #### [facility] [address] [place] [address] Dr. Reema Mireles NEUT # 5.5 103/ul Normal 1.4-6.5 [facility] Comment on above: Performed By: #### C VDTB #### [facility] [address] [place] [address] Dr. Reema Mireles Neutrophils/100 WBC (Bld) 68.7 % Normal 43.0-75.0 [facility] Comment on above: Performed By: #### C VDTBH #### [facility] [address] [place] [address] Dr. Reema Mireles Platelet mean volume (Bld) [Entitic vol] 10.1 fL Normal 9.5-13.5 [facility] Comment on above: Performed By: #### C VDTBH #### [facility] [address] [place] [address] Dr. Reema Mireles PLT 404 103/ul Normal 150-450 [facility] Comment on above: Performed By: #### C VDTBH #### [facility] [address] [place] [address] Dr. Reema Mireles RBC 4.38 106/ul Normal 4.20-5.40 [facility] Comment on above: Performed By: #### C VDTBH #### [facility] [address] [place], [place] [address] Dr. Reema Mireles WBC 8.0 103/ul Normal 4.0-11.0 [facility] Comment on above: Performed By: #### C VDTBH #### [facility] [address] [place], [place] [address] HEAD WO CONon [...] Date: 2022-04-13 16:29 Normal [facility] Discharge Instructionson Discharge Instructions [id number] #[id number]:127 Normal [facility] ED Note-Physicianon 04-13-20 ED Note-Physician Basic Information Time Seen: Lata Hardy M.D. 04/12/2022 19:56 Chief Complaint Pt. presents to the ed with c/o headache and vertigo since thursday. Pt. was seen at [facility] and started on prednisone. pt. stopped taking [...] states she was seen at [facility] discharged home. She went to urgent care [...] She has been seen at [facility] and started on prednisone. Possible her symptoms [...] ADRYAN MARIE In 3 days 04/15/[address] [place], [place] [id number]- Business (1) Additional Instructions: Return to the [...] Diagnostic Results No qualifying data available. Normal [facility] Comment on above: Result Comment: Elec tronically Signed By: Antony Villa, Lata Baxter\.br\Date and Time Signed: 04/13/22 04:56 EDT ER URINE PROFILEon 2 Bilirubin Ql (U) Negative Normal NEGATIVE [facility] Comment on above: Performed By: #### P REGU, ERUR #### [facility] [address] [place] [address] Dr. Reema Mireles Clarity (U) CLEAR Normal CLEAR [facility] Comment on above: Performed By: #### P REGU, ERUR #### [facility] [address] [place] [address] Dr. Reema Mireles Color (U) LT. YELLOW Normal YELLOW [facility] Comment on above: Performed By: #### P REGU, ERUR #### [facility] [address] [place] [address] Dr. Reema ELIZALDE A micrscopic examination will be performed if indicated. Normal [facility] Comment on above: Performed By: #### P REGU, ERUR #### [facility] [address] [place] [address] Dr. Reema Mireles Glucose Ql (U) Negative Normal NEGATIVE [facility] Comment on above: Performed By: #### P REGU, ERUR #### [facility] [address] [place] [address] Dr. Reema Mireles Hemoglobin Ql (U) Negative Normal NEGATIVE [facility] Comment on above: Performed By: #### P REGU, ERUR #### [facility] [address] [place] [address] Dr. Reema Mireles Ketones Ql (U) Negative Normal NEGATIVE [facility] Comment on above: Performed By: #### P REGU, ERUR #### [facility] [address] [place] [address] Dr. Reema Mireles LEUKOCYTES Negative Normal NEGATIVE [facility] Comment on above: Performed By: #### P REGU, ERUR #### [facility] [address] [place] [address] Dr. Reema Mireles Nitrite Ql (U) Negative Normal NEGATIVE [facility] Comment on above: Performed By: #### P REGU, ERUR #### [facility] [address] [place] [address] Dr. Reema Mireles pH (U) 6.5 [pH] Normal 5-9 [facility] Comment on above: Performed By: #### P REGU, ERUR #### [facility] [address] [place] [address] Dr. Reema Mireles SPEC GRAVITY 1.005 Normal 1.005-<=1.025 [facility] Comment on above: Performed By: #### P REGU, ERUR #### [facility] [address] [place] [address] Dr. Reema Mireles UA PROTEIN Negative Normal NEGATIVE/ TRACE [facility] Comment on above: Performed By: #### P REGU, ERUR #### [facility] [address] [place] [address] Dr. Reema Mireles UR MICRO IND NOT INDICATED Normal [facility] Comment on above: Performed By: #### P REGU, ERUR #### [facility] [address] [place] [address] Dr. Reema Mireles Urobilinogen Qn (U) 0.2 {Renny'U}/dL Normal 0.2 - 1. 0 [facility] Comment on above: Performed By: #### P REGU, ERUR #### [facility] [address] [address] [address] Reema Mireles URon 04-13-2022 , QUAL Negative Normal NEGATIVE [facility] Comment on above: Performed By: #### P REGU, ERUR #### [facility] [address] [address] [address] Reema Mireles PROF CHEM 8 (BAS METB)on Anion gap [Moles/Vol] 14.0 mmol/L Normal [facility] Comment on above: Performed By: #### B MP, TSH #### [facility] [address] [address] [address] Reema Mireles Calcium [Mass/Vol] 9.2 mg/dL Normal 8.5-10.1 [facility] Comment on above: Performed By: #### B MP, TSH #### [facility] [address] [address] [address] Reema Mireles Chloride [Moles/Vol] 102 mmol/L Normal 98-107 [facility] Comment on above: Performed By: #### B MP, TSH #### [facility] [address] [address] [address] Reema Mireles CO2 [Moles/Vol] 26.3 mmol/L Normal 21.0-32.0 [facility] Comment on above: Performed By: #### B MP, TSH #### [facility] [address] [address] [address] Reema Mireles Creatinine [Mass/Vol] 0.65 mg/dL Normal 0.55-1.02 [facility] Comment on above: Performed By: #### B MP, TSH #### [facility] [address] [address] [address] Reema Mireles EGFR-AF BERMUDIAN >60 Normal >=60 [facility] Comment on above: Performed By: #### B MP, TSH #### [facility] [address] [place] [address] Dr. Reema Mireles EGFR-NON AF BERMUDIAN >60 Normal >=60 [facility] Comment on above: Performed By: #### B MP, TSH #### [facility] [address] [address] [address] Reema Mireles Glucose [Mass/Vol] 92 mg/dL Normal 74-106 [facility] Comment on above: Performed By: #### B MP, TSH #### [facility] [address] [address] [address] Reema Mireles Potassium [Moles/Vol] 3.3 mmol/L Critically low 3.5-5.1 [facility] Comment on above: Performed By: #### B MP, TSH #### [facility] [address] [address] [address] Reema Mireles Sodium [Moles/Vol] 139 mmol/L Normal 136-145 [facility] Comment on above: Performed By: #### B MP, TSH #### [facility] [address] [address] [address] Reema Mireles Urea nitrogen [Mass/Vol] 8.0 mg/dL Normal 7.0-18.0 [facility] Comment on above: Performed By: #### B MP, TSH #### [facility] [address] [address] [address] Reema Mireles Urea nitrogen/Creatinine [Mass ratio] 12.3 mg/mg Normal [facility] Comment on above: Performed By: #### B MP, TSH #### [facility] [address] [address] [address] Reema Mireles TSHon 04-13-2022 TSH 1.293 uIU/mL Normal 0.358-3.740 [facility] Comment on above: Performed By: #### B MP, TSH #### [facility] [address] [address] [address] Reema Mireles Consent for Treatmenton 03-28 Consent for Treatment [id number] Normal [facility] ED Clinical Summaryon 2021 ED Clinical Summary [address] [place] [address] ED Clinical Summary Person Information Name: JUANPABLO CHAPARRO [place] Age: 21 Years : 2000 Sex: Female Language: Hungarian PCP: ADRYAN MARIE MD Marital Status: Single Phone: [phone] Visit Id: Visit Reason: Vertigo - recurrent; [...] 04/12/2022 21:07:38 04/12/2022 21:07:38 04/12/2022 21:07:38 ADDRESS: [address] [place] [phone] PHYS DOC NOTES: MEDICAL INFORMATION: Prescriptions Given: PATIENT EDUCATION INFORMATION: Instructions: General Headache Without Cause; Vertigo Follow up: With: Address: When: ADRYAN OSCAR [address] [place], [place] [id number] Business (1) In 3 days 04/15/2022 Comments: Return to the emergency room if her headache gets worse, vertigo becomes persistent or any new symptoms DIAGNOSIS: 1:Vertigo; 2:Headache Normal [facility] ED Patient Education Noteon 04-12-2022 ED [...] you feel dizzy. General instructions ? Take otnm-bnf-kwnpxel and prescription medicines only as told by [...] 06/24/2006 Document Revised: 08/08/2019 Document Reviewed: 08/08/2019 [employer] Patient Education ? 2020 [employer] Neurology General Headache Without Cause A [...] with your condition: Managing pain ? Take ygol-cju-bimpuje and prescription medicines only as told by [...] of beer (more content not included)... Normal [facility] ED Patient Summaryon 022 ED Patient Summary [address] [id number] Patient Discharge Instructions Person Information Name: JUANPABLO CHAPARRO Age: 21 Years Arrival Date: 04/12/2022 19:22:40 Discharge Diagnosis: 1:Vertigo; 2:Headache Primary Care Physician: ADRYAN MARIE MD Provider Information Primary Provider: Lata Hardy M.D. Advanced Taper Machine:None The exam and treatment you received in the Emergency Department were for an urgent problem and are not intended as complete care. It is important that you follow up with a doctor, nurse practitioner, or physician?s orthodontic assistant for ongoing care. If your symptoms [...] Follow-up Instructions: With: Address: When: ADRYAN MARIE [address] [place], [place] [id number] [facility] (1) In 3 days 04/15/2022 Comments: Return [...] opioids can be used to help relieve faddpxbk-[id number] pain and are often prescribed following a [...] addiction, tel (more content not included)... Normal [facility] CBC AUTO DIFFon 04-09-2022 BASO # 0.1 103/ul Normal 0.0-0.1 [facility] Comment on above: Performed By: #### B MP, TSH #### [facility] [address] [address] [address] Reema Mireles Basophils/100 WBC (Bld) 0.5 % Normal 0.2-2.0 [facility] Comment on above: Performed By: #### B MP, TSH #### [facility] [address] [place] [address] Dr. Reema Mireles EO # 0.1 103/ul Normal 0.0-0.7 [facility] Comment on above: Performed By: #### B MP, TSH #### [facility] [address] [place] [address] Dr. Reema Mireles Eosinophils/100 WBC (Bld) 1.0 % Normal 0.9-7.0 [facility] Comment on above: Performed By: #### B MP, TSH #### [facility] [address] [place] [address] Dr. Reema Mireles Erythrocyte distribution width (RBC) [Ratio] 11.7 % Normal 11.0-15.0 [facility] Comment on above: Performed By: #### B MP, TSH #### [facility] [address] [place] [address] Dr. Reema Mireles Hematocrit (Bld) [Volume fraction] 37.2 % Normal 36.0-48.0 [facility] Comment on above: Performed By: #### B MP, TSH #### [facility] [address] [place] [address] Dr. Reema Mireles Hemoglobin (Bld) [Mass/Vol] 12.8 g/dL Normal 12.0-16.0 [facility] Comment on above: Performed By: #### B MP, TSH #### [facility] [address] [place] [address] Dr. Reema Mireles IG # 0.02 10e3/ul Normal 0.00-0.03 [facility] Comment on above: Performed By: #### B MP, TSH #### [facility] [address] [place] [address] Dr. Reema Mireles IG % 0.2 % Normal 0.0-0.5 [facility] Comment on above: Performed By: #### B MP, TSH #### [facility] [address] [place] [address] Dr. Reema Mireles LYMPH # 1.8 103/ul Normal 1.2-3.8 [facility] Comment on above: Performed By: #### B MP, TSH #### [facility] [address] [address] [address] Reema Mireles Lymphocytes/100 WBC (Bld) 19.0 % Critically low 20.5-60.0 [facility] Comment on above: Performed By: #### B MP, TSH #### [facility] [address] [place] [address] Dr. Reema Mireles MANUAL DIFF REQ NO Normal [facility] Comment on above: Performed By: #### B MP, TSH #### [facility] [address] [place] [address] Dr. Reema Mireles MCH (RBC) [Entitic mass] 30.4 pg Normal 26.7-34.0 [facility] Comment on above: Performed By: #### B MP, TSH #### [facility] [address] [place] [address] Dr. Reema Mireles MCHC (RBC) [Mass/Vol] 34.4 g/dL Normal 29.9-35.2 [facility] Comment on above: Performed By: #### B MP, TSH #### [facility] [address] [place] [address] Dr. Reema Mireles MCV (RBC) [Entitic vol] 88.4 fL Normal 81.0-99.0 [facility] Comment on above: Performed By: #### B MP, TSH #### [facility] [address] [place] [address] Dr. Reema Mireles MONO # 0.7 103/ul Normal 0.3-0.8 [facility] Comment on above: Performed By: #### B MP, TSH #### [facility] [address] [place] [address] Dr. Reema Mireles Monocytes/100 WBC (Bld) 6.8 % Normal 1.7-12.0 [facility] Comment on above: Performed By: #### B MP, TSH #### [facility] [address] [place] [address] Dr. Reema Mireles NEUT # 7.0 103/ul Critically high 1.4-6.[address] [facility] Comment on above: Performed By: #### B MP, TSH #### [facility] [address] [address] [address] Reema Mireles Neutrophils/100 WBC (Bld) 72.5 % Normal 43.0-75.0 [facility] Comment on above: Performed By: #### B MP, TSH #### [facility] [address] [address] [address] Reema Mireles Platelet mean volume (Bld) [Entitic vol] 10.3 fL Normal 9.5-13.5 [facility] Comment on above: Performed By: #### B GURPREET, TSH #### [facility] [address] [address] [address] Reema Mireles PLT 358 103/ul Normal 150-450 [facility] Comment on above: Performed By: #### B GURPREET, TSH #### [facility] [address] [place] [address] Dr. Reema Mireles RBC 4.21 106/ul Normal 4.20-5.40 [facility] Comment on above: Performed By: #### B GURPREET, TSH #### [facility] [address] [address] [address] Reema Mireles WBC 9.7 103/ul Normal 4.0-11.0 [facility] Comment on above: Performed By: #### B GURPREET, TSH #### [facility] [address] [address] [address] Reema Mireles CULTURE BLOODon 04-09-2022 Microscopic examination of blood, culture Culture Observations: NO GROWTH AT 5 DAYS. Normal [facility] Comment on above: Performed By: #### B MP, TSH #### [facility] [address] [address] [address] Reema Mireles ER URINE PROFILEon 2 Bilirubin Ql (U) Negative Normal NEGATIVE [facility] Comment on above: Performed By: #### B MP, TSH #### [facility] [address] [address] [address] Reema Mireles Clarity (U) CLEAR Normal CLEAR [facility] Comment on above: Performed By: #### B MP, TSH #### [facility] [address] [place] [address] Dr. Reema Mireles Color (U) LT. YELLOW Normal YELLOW [facility] Comment on above: Performed By: #### B MP, TSH #### [facility] [address] [place] [address] Dr. Reema Mireles ERUAHJohana A micrscopic examination will be performed if indicated. Normal [facility] Comment on above: Performed By: #### B MP, TSH #### [facility] [address] [place] [address] Dr. Reema Mireles Glucose Ql (U) Negative Normal NEGATIVE [facility] Comment on above: Performed By: #### B MP, TSH #### [facility] [address] [place] [address] Dr. Reema Mireles Hemoglobin Ql (U) TRACE-INTACT Abnormal NEGATIVE [facility] Comment on above: Performed By: #### B MP, TSH #### [facility] [address] [place] [address] Dr. Reema Mireles Ketones Ql (U) Negative Normal NEGATIVE [facility] Comment on above: Performed By: #### B MP, TSH #### [facility] [address] [place] [address] Dr. Reema Mireles LEUKOCYTES Negative Normal NEGATIVE [facility] Comment on above: Performed By: #### B MP, TSH #### [facility] [address] [place] [address] Dr. Reema Mireles Nitrite Ql (U) Negative Normal NEGATIVE [facility] Comment on above: Performed By: #### B MP, TSH #### [facility] [address] [place] [address] Dr. Reema Mireles pH (U) 5.5 [pH] Normal 5-9 [facility] Comment on above: Performed By: #### B MP, TSH #### [facility] [address] [place] [address] Dr. Reema Mireles SPEC GRAVITY <=1.005 Abnormal 1.005-<=1.025 [facility] Comment on above: Performed By: #### B MP, TSH #### [facility] [address] [address] [address] Reema Mireles UA PROTEIN Negative Normal NEGATIVE/ TRACE [facility] Comment on above: Performed By: #### B MP, TSH #### [facility] [address] [address] [address] Reema Mireles UR MICRO IND INDICATED Normal [facility] Comment on above: Performed By: #### B MP, TSH #### [facility] [address] [place] [address] Dr. Reema Mireles Urobilinogen Qn (U) 0.2 {Renny'U}/dL Normal 0.2 - 1. 0 [facility] Comment on above: Performed By: #### B MP, TSH #### [facility] [address] [place] [address] Dr. Reema Mireles LACTATE/LACTIC ACIDon 2021 Lactate [Moles/Vol] 2.2 mmol/L Critically high 0.4-1.9 [facility] Comment on above: Performed By: #### B MP, TSH #### [facility] [address] [place] [address] Dr. Reema Mireles URon 04-09-2022 , QUAL Negative Normal NEGATIVE [facility] Comment on above: Performed By: #### B MP, TSH #### [facility] [address] [place] [address] Dr. Reema Mireles PROF 14(COMP METB)on 022 Albumin [Mass/Vol] 4.5 g/dL Normal 3.4-5.0 [facility] Comment on above: Performed By: #### C MP #### [facility] [address] [place] [address] Dr. Reema Mireles Albumin/Globulin [Mass ratio] 1.3 {ratio} Normal [facility] Comment on above: Performed By: #### C MP #### [facility] [address] [address] [address] Reema Mireles ALP [Catalytic activity/Vol] 83 U/L Normal 46-116 [facility] Comment on above: Performed By: #### C MP #### [facility] [address] [address] [address] Reema Mireles ALT [Catalytic activity/Vol] 26 U/L Normal 14-59 [facility] Comment on above: Performed By: #### C MP #### [facility] [address] [address] [address] Reema Mireles Anion gap [Moles/Vol] 14.9 mmol/L Normal [facility] Comment on above: Performed By: #### C MP #### [facility] [address] [address] [address] Reema Mireles AST [Catalytic activity/Vol] 12 U/L Critically low 15-37 [facility] Comment on above: Performed By: #### C MP #### [facility] [address] [address] [address] Reema Mireles Bilirubin [Mass/Vol] 0.3 mg/dL Normal 0.2-1.0 [facility] Comment on above: Performed By: #### C MP #### [facility] [address] [address] [address] Reema Mireles Calcium [Mass/Vol] 9.6 mg/dL Normal 8.5-10.1 [facility] Comment on above: Performed By: #### C MP #### [facility] [address] [address] [address] Reema Mireles Chloride [Moles/Vol] 103 mmol/L Normal 98-107 [facility] Comment on above: Performed By: #### C MP #### [facility] [address] [address] [address] Reema Mireles CO2 [Moles/Vol] 24.4 mmol/L Normal 21.0-32.0 [facility] Comment on above: Performed By: #### C MP #### [facility] [address] [address] [address] Reema Mireles Creatinine [Mass/Vol] 0.87 mg/dL Normal 0.55-1.02 [facility] Comment on above: Performed By: #### C MP #### [facility] [address] [address] [address] Reema Mireles EGFR-AF BERMUDIAN >60 Normal >=60 [facility] Comment on above: Performed By: #### C MP #### [facility] [address] [address] [address] Reema Mireles EGFR-NON AF BERMUDIAN >60 Normal >=60 [facility] Comment on above: Performed By: #### C MP #### [facility] [address] [address] [address] Reema Mireles Globulin (S) [Mass/Vol] 3.5 g/dL Normal [facility] Comment on above: Performed By: #### C MP #### [facility] [address] [address] [address] Reema Mireles Glucose [Mass/Vol] 109 mg/dL Critically high 74-106 [facility] Comment on above: Performed By: #### C MP #### [facility] [address] [address] [address] Reema Mireles Potassium [Moles/Vol] 3.3 mmol/L Critically low 3.5-5.1 [facility] Comment on above: Performed By: #### C MP #### [facility] [address] [address] [address] Reema Mireles Protein [Mass/Vol] 8.0 g/dL Normal 6.4-8.2 [facility] Comment on above: Performed By: #### C MP #### [facility] [address] [address] [address] Reema Mireles Sodium [Moles/Vol] 139 mmol/L Normal 136-145 [facility] Comment on above: Performed By: #### C MP #### [facility] [address] [address] [address] Reema Mireles Urea nitrogen [Mass/Vol] 9.0 mg/dL Normal 7.0-18.0 [facility] Comment on above: Performed By: #### C MP #### [facility] [address] [address] [address] Reema Mireles Urea nitrogen/Creatinine [Mass ratio] 10.3 mg/mg Normal [facility] Comment on above: Performed By: #### C MP #### [facility] [address] [place] [address] Dr. Reema Mireles URINE MICROSCOPIC ONLYon BACTERIA NONE SEEN Normal NONE SEEN [facility] Comment on above: Performed By: #### B MP, TSH #### [facility] [address] [place] [address] Dr. Reema Mireles Bacteria identified Cx Nom (U) NOT INDICATED Normal [facility] Comment on above: Performed By: #### B MP, TSH #### [facility] [address] [place] [address] Dr. Reema Mireles CAST NONE SEEN Normal NONE SEEN [facility] Comment on above: Performed By: #### B MP, TSH #### [facility] [address] [place] [address] Dr. Reema Mireles Crystals LM Nom (Urine sed) NONE SEEN Normal NONE SEEN [facility] Comment on above: Performed By: #### B MP, TSH #### [facility] [address] [place] [address] Dr. Reema Mireles Epithelial cells LM Ql (Urine sed) RARE Normal NONE SEEN /RARE [facility] Comment on above: Performed By: #### B MP, TSH #### [facility] [address] [place] [address] Dr. Reema Mireles MUCOUS NONE SEEN Normal NONE SEEN [facility] Comment on above: Performed By: #### B MP, TSH #### [facility] [address] [place] [address] Dr. Reema Mireles RBC 0-2 Normal 0-2 [facility] Comment on above: Performed By: #### B MP, TSH #### [facility] [address] [place] [address] Dr. Reema Mireles WBC NONE SEEN Normal NONE SEEN [facility] Comment on above: Performed By: #### B MP, TSH #### [facility] [address] [place] [address] Dr. Reema iMreles CBC AUTO DIFFon 10-25-2021 BASO # 0.0 103/ul Normal 0.0-0.1 [facility] Comment on above: Performed By: #### C BC #### [facility] [address] [place] [address] Dr. Reema Mireles Basophils/100 WBC (Bld) 0.6 % Normal 0.2-2.0 [facility] Comment on above: Performed By: #### C BC #### [facility] [address] [place] [address] Dr. Reema Mireles EO # 0.1 103/ul Normal 0.0-0.7 [facility] Comment on above: Performed By: #### C BC #### [facility] [address] [place] [address] Dr. Reema Mireles Eosinophils/100 WBC (Bld) 1.8 % Normal 0.9-7.0 [facility] Comment on above: Performed By: #### C BC #### [facility] [address] [place] [address] Dr. Reema Mireles Erythrocyte distribution width (RBC) [Ratio] 11.9 % Normal 11.0-15.0 [facility] Comment on above: Performed By: #### C BC #### [facility] [address] [place] [address] Dr. Reema Mireles Hematocrit (Bld) [Volume fraction] 38.1 % Normal 36.0-48.0 [facility] Comment on above: Performed By: #### C BC #### [facility] [address] [place] [address] Dr. Reema Mireles Hemoglobin (Bld) [Mass/Vol] 13.1 g/dL Normal 12.0-16.0 [facility] Comment on above: Performed By: #### C BC #### [facility] [address] [place] [address] Dr. Reema Mireles IG # 0.01 10e3/ul Normal 0.00-0.03 [facility] Comment on above: Performed By: #### C BC #### [facility] [address] [place] [address] Dr. Reema Mireles IG % 0.1 % Normal 0.0-0.5 [facility] Comment on above: Performed By: #### C BC #### [facility] [address] [place] [address] Dr. Reema Mireles LYMPH # 1.9 103/ul Normal 1.2-3.8 [facility] Comment on above: Performed By: #### C BC #### [facility] [address] [place] [address] Dr. Reema Mireles Lymphocytes/100 WBC (Bld) 27.8 % Normal 20.5-60.0 [facility] Comment on above: Performed By: #### C BC #### [facility] [address] [place] [address] Dr. Reema Mireles MANUAL DIFF REQ NO Normal [facility] Comment on above: Performed By: #### C BC #### [facility] [address] [place] [address] Dr. Reema Mireles MCH (RBC) [Entitic mass] 30.5 pg Normal 26.7-34.0 [facility] Comment on above: Performed By: #### C BC #### [facility] [address] [place] [address] Dr. Reema Mireles MCHC (RBC) [Mass/Vol] 34.4 g/dL Normal 29.9-35.2 [facility] Comment on above: Performed By: #### C BC #### [facility] [address] [place] [address] Dr. Reema Mireles MCV (RBC) [Entitic vol] 88.8 fL Normal 81.0-99.0 [facility] Comment on above: Performed By: #### C BC #### [facility] [address] [place] [address] Dr. Reema Mireles MONO # 0.8 103/ul Normal 0.3-0.8 [facility] Comment on above: Performed By: #### C BC #### [facility] [address] [place] [address] Dr. Reema Mireles Monocytes/100 WBC (Bld) 11.2 % Normal 1.7-12.0 [facility] Comment on above: Performed By: #### C BC #### [facility] [address] [place] [address] Dr. Reema Mireles NEUT # 4.0 103/ul Normal 1.4-6.5 [facility] Comment on above: Performed By: #### C BC #### [facility] [address] [place] [address] Dr. Reema Mireles Neutrophils/100 WBC (Bld) 58.5 % Normal 43.0-75.0 [facility] Comment on above: Performed By: #### C BC #### [facility] [address] [place] [address] Dr. Reema Mireles Platelet mean volume (Bld) [Entitic vol] 10.0 fL Normal 9.5-13.5 [facility] Comment on above: Performed By: #### C BC #### [facility] [address] [place] [address] Dr. Reema Mireles PLT 361 103/ul Normal 150-450 [facility] Comment on above: Performed By: #### C BC #### [facility] [address] [place] [address] Dr. Reema Mireles RBC 4.29 106/ul Normal 4.20-5.40 [facility] Comment on above: Performed By: #### C BC #### [facility] [address] [place] [address] Dr. Reema Mireles WBC 6.8 103/ul Normal 4.0-11.0 [facility] Comment on above: Performed By: #### C BC #### [facility] [address] [place] [address] Dr. Reema Mireles PREG QUANT HCGon 10-25-2021 HCG QUANT 1 mIU/mL Normal [facility] Comment on above: Performed By: #### P REGQNT #### [facility] [address] [place] [address] Dr. Reema Mireles HCG RANGE SEE BELOW Normal [facility] Comment on above: Result Comment: 5-50 0-1 WEEK 40-300 1-2 WEEKS 100-1,000 2-3 WEEKS 500-6,000 3-4 WEEKS 5,000-200,000 1-2 MONTHS 10,000-100,000 2-3 MONTHS 3,000-50,000 2ND TRIMESTER 1,000-50,000 3RD TRIMESTER Performed By: #### P REGQNT #### [facility] [address] [address] [address] Reema Mireles Covid-19 PCR ([facility])on 09-29 SARS-CoV-2 (COVID-19) RNA FRANKIE+probe Ql (Unsp spec) Not detected Normal NOT DETECTED [facility] Comment on above: Result Comment: This test is not yet approved or cleared by the [place] FDA. When there are no FDA-approved or cleared tests available, and other criteria are met, FDA can make tests available under an emergency access mechanism called an Emergency Use Authorization (EUA). The EUA for this test is supported by the [employer] Representative of Health and Human Service's (HHS's) declaration [...] By: #### C VDTB #### [facility] [address] [place], [place] [address] Dr. Reema Mireles Vital Signs Date Time Vital Sign Value Performing Clinician Facility 11-12-2023 14:15-0500 Body weight 108.86 kg [employer] Work Phone: [facility] 11-12-2023 14:15-0500 Diastolic blood pressure 72 mm[Hg] [employer] Work Phone: [facility] 11-12-2023 14:15-0500 Systolic blood pressure 122 mm[Hg] Devan Tello DO Work Phone: [facility] 04-12-2022 21:04-0400 Diastolic blood pressure 84 mm[Hg] [facility] 04-12-2022 21:04-0400 Heart rate 82 /min [facility] 04-12-2022 21:04-0400 Respiratory rate 16 /min [facility] 04-12-2022 21:04-0400 SaO2% (BldA) [Mass fraction] 98 % [facility] 04-12-2022 21:04-0400 Systolic blood pressure 120 mm[Hg] [facility] 04-12-2022 20:32-0400 gluc 80 mg/dL [facility] Comment on above: Result Comment: not taken due to pt refu jimmie of any injection 04-12-2022 20:32-0400 gluc [facility] 04-12-2022 19:25-0400 Body temperature 99.32 [degF] [facility] 04-12-2022 19:25-0400 Diastolic blood pressure 84 mm[Hg] [facility] 04-12-2022 19:25-0400 Heart rate 90 /min [facility] 04-12-2022 19:25-0400 Respiratory rate 18 /min [facility] 04-12-2022 19:25-0400 SaO2% (BldA) [Mass fraction] 98 % [facility] 04-12-2022 19:25-0400 Systolic blood pressure 118 mm[Hg] [facility] 04-09-2022 12:20-0400 Body height 165.1 cm Deonna Back Other [employer] Other 04-09-2022 12:20-0400 Body mass index (BMI) [Ratio] 35.61 kg/m2 Deonna Nazanin Other [employer] Other 04-09-2022 12:20-0400 Body temperature 98.4 [degF] Deonna Nazanin Other [employer] Other 04-09-2022 12:20-0400 Body weight 97.07 kg Deonna Nazanin Other [employer] Other 04-09-2022 12:20-0400 Diastolic blood pressure 83 mm[Hg] Deonna Nazanin Other [employer] Other 04-09-2022 12:20-0400 Respiratory rate 18 /min Deonna Nazanin Other [employer] Other 04-09-2022 12:20-0400 SaO2% (BldA) [Mass fraction] 99 % Deonna Nazanin Other [employer] Other 04-09-2022 12:20-0400 Systolic blood pressure 135 mm[Hg] Deonna Nazanin Other [employer] Other 04-02-2022 19:00-0400 Body height 165.1 cm Deonna Nazanin Other [employer] Other 04-02-2022 19:00-0400 Body mass index (BMI) [Ratio] 35.71 kg/m2 Deonna Nazanin Other [employer] Other 04-02-2022 19:00-0400 Body temperature 98.1 [degF] Deonna Nazanin Other [employer] Other 04-02-2022 19:00-0400 Body weight 97.34 kg Deonna Back Other [employer] Other 04-02-2022 19:00-0400 Diastolic blood pressure 83 mm[Hg] Deonna Back Other [employer] Other 04-02-2022 19:00-0400 Respiratory rate 18 /min Deonna Back Other [employer] Other 04-02-2022 19:00-0400 SaO2% (BldA) [Mass fraction] 100 % Deonna Back Other [employer] Other 04-02-2022 19:00-0400 Systolic blood pressure 134 mm[Hg] Deonna Back Other [employer] Other Encounters Encounter Date Encounter Type Care Provider Facility Start: 12-14-2023 End: 12-14-2023 ambulatory DEVAN OMER Not Available Start: 11-26-2023 End: 11-26-2023 ambulatory CYDNEY LEOS [...] Not Available Start: 09-17-2023 End: 09-17-2023 ambulatory EDVAN TELLO Not Available Start: 08-13-2023 End: 08-13-2023 [...] 04-12-2022 Emergency department patient visit Lata Hardy [facility] Start: 04-10-2022 End: 04-10-2022 ambulatory Deonna Back Other [employer] Other Start: 04-10-2022 Telephone encounter Deonna Back [facility] Start: 04-09-2022 End: 04-09-2022 ambulatory Deonna Back Other [employer] Other Start: 04-09-2022 Office outpatient vi sit 15 minutes Deonna Back [facility] Start: 04-09-2022 End: 04-09-[address] LUIS ANTONIO SUTTON Facility:[facility] Start: 04-02-2022 (URG) Urgent Care Visit Deonna Silva d [facility] Start: 04-02-2022 End: 04-02-2022 ambulatory Deonna Back Other [employer] Other Start: 10-25-2021 End: 10-25-[address] ADRYAN MARIE Facility:[facility] Start: 10-24-2021 Encounter for preprocedural laboratory examination DR DEVAN TELLO [facility] Start: 10-22-2021 End: 10-23-[address] ADRYAN MARIE Facility:[facility] Start: 10-22-2021 End: 10-23-2021 Encounter for preprocedural laboratory examination DR ADRYAN MARIE Facility:[facility] Start: 10-19-2021 Encounter for other preprocedural examination DR DEVAN TELLO [facility] Start: 10-17-2021 End: 10-18-2021 ambulatory [...] Routine [facility] [address] [place] [address] Cydney Leos PA [address] [place], [place] [id number] [facility] Start: 11-26-2023 End: 11-26-2023 Professional / ancillary services management 11/26/2023 10:30 AM EST Ancillary Procedure [facility] [address] [place] [address] [facility] Start: 11-12-2023 End: 11-12-2024 US for US OB SCAN FOR GROWTH Imaging Routine Excessive growth affecting management of in third trimester, single or unspecified fetus Expected: 11/12/2023 (Approximate), Expires: 11/12/2024 [facility] Work Phone: Comment on above: Expected: 11/12/2023 (Approximate), Expires: 11/12/2024 Start: 11-12-2023 End: 11-12-2023 Patient encounter procedure 11/12/2023 10:50 AM EST Routine [facility] [address] [place] [id number] Devan Tello, [address] [facility] [place] [address] [facility] Payers Date Payer Category Payer Unknown [facility] MEDICAID [id number] 2023-Present [address] [place] [address] [id number] 2023 Medicaid [id number] 2001 Unknown [id number] 2.16.840.1.024719.3.579.2. 593 2001 Unknown [id number] 2.16.840.1.186836.3.579.2. 593 2001 Unknown [id number] 2.16.840.1.202842.3.579.2. 593 2001 Unknown [id number] 2.16.840.1.530702.3.579.2. 593 2001 Unknown [id number] 2.16.840.1.869415.3.579.2. 593 2001 Unknown [id number] 2.16.840.1.397860.3.579.2. 593 2001 Unknown [id number] 2.16.840.1.460568.3.579.2. 593 2001 Unknown [id number] 2.16.840.1.302492.3.579.2. 593 2001 Unknown [id number] 2.16.840.1.199476.3.579.2. 593 2001 Unknown [id number] 2.16.840.1.451254.3.579.2. 593 2001 Unknown [id number] 2.16.840.1.550040.3.579.2. 593 2001 Unknown [id number] 2.16.840.1.726151.3.579.2. 1259 2001 Unknown [id number] 2.16.840.1.004069.3.579.2. 1259 2001 Unknown [id number] 2.16.840.1.935460.3.579.2. 1259 2001 Unknown [id number] 2.16.840.1.927546.3.579.2. 1259 2001 Unknown [id number] 2.16.840.1.760057.3.579.2. 1259 2001 Unknown [id number] 2.16.840.1.265311.3.579.2. 1259 1958 [facility] [id number] 2.16.840.1.113646.19 Social History Date Type Detail Facility Unknown if ever smoked [facility] Other Sex Assigned At [facility] Other Tobacco smoking status No Smoking Status Entered [facility] Start: 06-20-2023 Tobacco smoking status WIIS Tobacco smoking consumption unknown [facility] Start: 10-15-2023 Alcohol intake Lifetime non-d hermes (finding) [facility] Start: 06-20-2023 Tobacco Comment Current smoker (frequency unknown) [facility] Start: 05-06-2023 [facility] Start: 2000 Sex Assigned At Not on file [facility] Goals Date Patient Goal Desired Activity /State Personal health goal Functional Status Date Assessment Result Facility 04-12-2022 Functional Status N/A [facility] History of Present illness Narrative 11-12-2023 Ciarra [...] Devan Tello DO documented in this encounter [facility] Discharge instructions 04-12-2022 Note Date & [...] help with your condition: Managing pain Take xyii-pjl-iozxqib and prescription medicines only as told by [...] 09/14/2006 Document Revised: 04/04/2019 Document Reviewed: 04/04/2019 [employer] Patient Education 2020 [employer] 04/12/2022 21:07:38 Vertigo Vertigo Vertigo is [...] if you feel dizzy. General instructions Take vmgc-kmg-ypsotgl and prescription medicines only as told by [...] 06/24/2006 Document Revised: 08/08/2019 Document Reviewed: 08/08/2019 [employer] Patient Education 2020 [employer]. Follow Up Care 04/12/2022 19:25:17 With:ADRYAN MARIE Address: [address] [place], [place] [id number] [facility] (1) When:04/15/2022 20:55:24 Comments:Return to the emergency room if her headache gets worse, vertigo becomes persistent or any new symptoms [facility] Evaluation note 04-09-2022 Note Date & [...] She was prescribed Zofran with no improvement. [employer] Other Evaluation note 04-02-2022 Note Date & [...] 3 days. No swimming for a week [employer] Other Clinical Note 10-25-2021 Note Date & Type Note Facility 10-25-2021 Note OPERATIVE NOTE PROCEDURE: Diagnostic laparoscopy. PREOPERATIVE DIAGNOSIS: Pelvic pain, dyspareunia dysmenorrhea. POSTOPERATIVE DIAGNOSIS: Pelvic pain, dyspareunia dysmenorrhea. ANESTHESIA: General. SURGEON: Devan Tello D.O. [employer] SUPERVISOR: JAE Worley URINE OUTPUT: Yellow and clear. [...] taken to Recovery Room in stable condition. [facility] Signed and Approved by: DR DEVAN TELLO . 11/01/2021 17:31:00 [facility] Evaluation + Plan note Note Date & Type Note Facility Evaluation + Plan note No data available for this section [facility] Evaluation note Note Date & Type Note Facility Evaluation note No Information [facility] Other Evaluation note Note Date & Type [...] endometriosis Hospitalization History RSV as a baby [facility] Other Progress note Note Date & Type Note Facility Progress note No data available for this section [facility] Summary Purpose Family History No Family History Records FoundNo Family History Records FoundNo Family History Records Found Advance Directives No Advanced Directives Records FoundNo Advanced Directives Records FoundNo Advanced Directives Records Found Additional Source Comments REASON FOR VISIT (unrecogniz ed section and content) Reason Comments Routine Visit Care Team (unrecognized sect ion and content) Energy Control Officer Relationship Specialty Start Date End Date Adryan Marie MD [address] [place], [place] [id number] PCP - General Family Medicine 06/19/23 Energy Control Officer Relationship Specialty Start Date End Date Adryan Marie MD [address] [place] [address] PCP - General Family Medicine 06/19/23 INFORMATION SOURCE (unrecogn ized section and content) DATE CREATED AUTHOR 04/26/2022 [facility] DATE CREATED AUTHOR AUTHOR'S ORGANIZ ATION 09/19/2022 [facility] DATE CREATED AUTHOR AUTHOR'S ORGANIZ ATION 12/14/2023 [facility] FOR RECORDS PERTAINING TO PATIENTS WHO [...] BE BASED ON THE PRIMARY CLINICAL RECORDS. [facility]. provides no warranty or guarantee of the accuracy or completeness of information in this document.
--- NOTE | 2023-12-16 09:57 | US_ITS ---
[address] [address] Patient Name: JUANPABLO CHAPARRO MRN: [id number] date: 2000 Sex: F Assigned Patient Location: [place] [facility] [place]/Order Number: [id number] Exam Date: 12/16/2023 10:00 Report Date: 12/16/2023 10:53 At the request of: DEVAN GEORGE Procedure: US OB BPP w non-stress EXAMINATION: US OB BPP w non-stress HISTORY: Excessive growth O36.63X0 COMPARISON: No relevant comparison available. TECHNIQUE: Ultrasound biophysical profile was performed in the radiology department. non-reactive stress testing was performed by nursing staff in the birthing center. FINDINGS: BREATHING MOVEMENTS: 2.0 GROSS BODY MOVEMENTS: 2.0 TONE: 2.0 QUALITATIVE AMNIOTIC FLUID VOLUME: 2.0 PRESENTATION: CEPHALIC HEART RATE: 121.6 bpm H.B./min AMNIOTIC FLUID VOLUME: 15.7 cm cm GESTATIONAL AGE: 34 weeks 0 days CONCLUSION: Total biophysical profile score: 8.0 Electronically authenticated by: ADRAYN PRESCOTT Date: 12/16/2023 10:53
[2023-12-16 10:22] VITALS: BP 146/81; PULSE 110
[2023-12-16 11:08] VITALS: BP 122/70; PULSE 106
== END 2023-12-16 11:50 | disposition home or self-care (01) ==
LOC: US 08:30 → FBC 10:02
PROVIDERS: PCP Family Medicine; Visit Provider Obstetrics & Gynecology
DX: O36.63X0 Maternal care for excessive fetal growth, third trimester, not applicable or unspecified (principal); Z3A.34 34 weeks gestation of pregnancy
CPT/HCPCS: 76818

== ENCOUNTER 2023-12-19 00:14 | Outpatient (OUT) | payer OTHER, SELFPAY ==
--- OUTSIDE RECORDS SUMMARY | 2023-12-19 00:17 | XMS_ITS | CCD ---
Author Organization [employer] Care Team Providers Care Proof Clerk Name Role Phone Deonna Back Unavailable DEFJAILENE, ADRYAN Primary Care Physician [phone] LESLEY, DR LUIS ANTONIO Jorge Consulting Unavailable [...] Unavailable HAY, DR ESPINOZA Admitting Unavailable AURELIA CAROLS Consulting Unavailable SUTTON, DR LUIS ANTONIO Jorge [...] LESLEY, DR LUIS ANTONIO Jorge Admitting Unavailable BRENNANRANCE, DR CORNELIUS Primary Care Unavailable DIETER GONZALEZ [...] Facility (3 sources) Sulfacetamide Drug Allergy rash [facility] Other (1 source) Sulfonamides (Antibiotic); Translations: [sulfa drugs] Drug allergy Hyperpyrexia (finding) [facility] (1 source) Sulfonamides (Antibiotic) Drug allergy (disorder) 07-26-20 14 [facility] (3 sources) Sulfonamides (Antibiotic) Drug Intolerance [...] BY MOUTH EVERY MORNING 0 10/06/2023 Active QW-Hzd-FE-Garrochales-3 ( Gummies/DHA & FA) 0.4-32.5 MG chewable tablet (3 sources) Start: 06-19-2023 End: 06-18-2024 SH-Abu-ZR-Garrochales-3 ( Gummies/DHA & FA) 0.4-32.5 MG chewable tablet Indications: Missed menses Chew 32.5 mg in the morning. 30 tablet 11 06/19/2023 06/18/2024 Active Completed/Discontinued Medications Medication Drug Class(es) Dates Sig (Normalized) Sig (Original) [id number] 200 actuat albuterol 0.09 mg/actuat metered dose [...] / neomycin 3.5 mg/ml / polymyxin b [id number] unt/ml otic suspension (3 sources) Aminoglycoside Antibacterial, Polymyxin-class Antibacterial, Corticosteroid Start: 04-02-2022 Neomycin-Polymyx in-HC 3.5-38116-0 3 drops left ear Three times a [...] UA Negative Negative - 4(70) +++ mg/dL [facility] Blood, UA Negative Negative - 50 Cedric/mcL [facility] Clarity, UA Clear [facility] re Color, UA Yellow [facility] Gl[facility], [facility] Negative Negative - 1999(110) ++++ mg/dL [facility] Interpretation and review of laboratory results Normal [facility] Ketones, UA Negative Negative - 160(16) ++++ mg/dL [facility] Leukocytes, UA Negative Negative - 500+++ Alessandro/mcL [facility] Nitrite, UA Negative Negative - Positive [facility] pH, UA 6.0 5 - 9 [facility] e Protein, UA Negative Negative - 1999(20) ++++ mg/dL [facility] Spec Grav, UA 1.020 1 - 1.03 [facility] Urobilinogen, UA 0.2 0.2 - 12 mg/dL [facility] e ALL CBC WITH AUTO DIFFon BASOPHILS ABSOLUTE AUTO 0.0 [facility] Basophils/100 WBC (Bld) 0.3 % 0.2 - 2.0 % [facility] Eosinophils/100 WBC (Bld) 1.0 % 0.9 - 7.0 % [facility] Erythrocyte distribution width (RBC) [Ratio] 12.5 % 11.0 - 15.0 % [facility] Hematocrit (Bld) [Volume fraction] 35.1 % Low 36.0 - 48.0 % [facility] Hemoglobin (Bld) [Mass/Vol] 11.7 g/dL Low 12.0 - 16.0 g/dL [facility] IMMATURE GRANULOCYTES ABS AUTO 0.08 High [facility] Immature granulocytes/100 WBC (Bld) 0.6 % High 0.0 - 0.5 % [facility] Interpretation and review of laboratory results Abnormal [facility] LYMPHOCYTES ABSOLUTE AUTO 1.6 [facility] Lymphocytes/100 WBC (Bld) 11.9 % Low 20.5 - 60.0 % [facility] MCH (RBC) [Entitic mass] 30.7 pg 26.7 - 34.0 pg [facility] MCHC (RBC) [Mass/Vol] 33.3 g/dL 29.9 - 35.2 g/dL [facility] MCV (RBC) [Entitic vol] 92.1 fL 81.0 - 99.0 fL [facility] MONOCYTES ABSOLUTE AUTO 0.8 [facility] Monocytes/100 WBC (Bld) 5.5 % 1.7 - 12.0 % [facility] NEUTROPHILS ABSOLUTE AUTO 11.1 High [facility] Neutrophils/100 WBC (Bld) 80.7 % High 43.0 - 75.0 % [facility] Platelet mean volume (Bld) [Entitic vol] 10.6 fL 9.5 - 13.5 fL [facility] are [facility] EO # 0.1 [facility] e [facility] PLT 292 [facility] RBC 3.81 Low [facility] WBC 13.8 High [facility] CBC AUTO DIFFon 09-14-2022 BASO # 0.0 103/ul Normal 0.0-0.1 [facility] Comment on above: Performed By: #### B GURPREET, TSH #### [facility] [address] [place] [address] Dr. Reema Mireles Basophils/100 WBC (Bld) 0.6 % Normal 0.2-2.0 [facility] Comment on above: Performed By: #### B GURPREET, TSH #### [facility] [address] [place] [address] Dr. Reema Mireles EO # 0.0 103/ul Normal 0.0-0.7 [facility] Comment on above: Performed By: #### B GURPREET, TSH #### [facility] [address] [place] [address] Dr. Reema Mireles Eosinophils/100 WBC (Bld) 0.6 % Critically low 0.9-7.0 [facility] Comment on above: Performed By: #### B GURPREET, TSH #### [facility] [address] [place] [address] Dr. Reema Mireles Erythrocyte distribution width (RBC) [Ratio] 11.9 % Normal 11.0-15.0 [facility] Comment on above: Performed By: #### B GURPREET, TSH #### [facility] [address] [place] [address] Dr. Reema Mireles Hematocrit (Bld) [Volume fraction] 37.8 % Normal 36.0-48.0 [facility] Comment on above: Performed By: #### Inna VÁZQUEZ, TSH #### [facility] [address] [place] [address] Dr. Reema Mireles Hemoglobin (Bld) [Mass/Vol] 13.5 g/dL Normal 12.0-16.0 [facility] Comment on above: Performed By: #### Inna VÁZQUEZ, TSH #### [facility] [address] [place] [address] Dr. Reema Mireles IG # 0.01 10e3/ul Normal 0.00-0.03 [facility] Comment on above: Performed By: #### Inna VÁZQUEZ, TSH #### [facility] [address] [place] [address] Dr. Reema Mireles IG % 0.2 % Normal 0.0-0.5 [facility] Comment on above: Performed By: #### B GURPREET, TSH #### [facility] [address] [place] [address] Dr. Reema Mireles LYMPH # 1.6 103/ul Normal 1.2-3.8 [facility] Comment on above: Performed By: #### B GURPREET, TSH #### [facility] [address] [place] [address] Dr. Reema Mireles Lymphocytes/100 WBC (Bld) 25.5 % Normal 20.5-60.0 [facility] Comment on above: Performed By: #### Inna VÁZQUEZ, TSH #### [facility] [address] [place] [address] Dr. Reema Mireles MANUAL DIFF REQ NO Normal [facility] Comment on above: Performed By: #### B MP, TSH #### [facility] [address] [place] [address] Dr. Reema Mireles MCH (RBC) [Entitic mass] 30.9 pg Normal 26.7-34.0 [facility] Comment on above: Performed By: #### B MP, TSH #### [facility] [address] [place] [address] Dr. Reema Mireles MCHC (RBC) [Mass/Vol] 35.7 g/dL Critically high 29.9-35.2 [facility] Comment on above: Performed By: #### B GURPREET, TSH #### [facility] [address] [place] [address] Dr. Reema Mireles MCV (RBC) [Entitic vol] 86.5 fL Normal 81.0-99.0 [facility] Comment on above: Performed By: #### B GURPREET, TSH #### [facility] [address] [place] [address] Dr. Reema Mireles MONO # 0.5 103/ul Normal 0.3-0.8 [facility] Comment on above: Performed By: #### B GURPREET, TSH #### [facility] [address] [place] [address] Dr. Reema Mireles Monocytes/100 WBC (Bld) 8.5 % Normal 1.7-12.0 [facility] Comment on above: Performed By: #### B GURPREET, TSH #### [facility] [address] [place] [address] Dr. Reema Mireles NEUT # 4.1 103/ul Normal 1.4-6.5 [facility] Comment on above: Performed By: #### B MP, TSH #### [facility] [address] [place] [address] Dr. Reema Mireles Neutrophils/100 WBC (Bld) 64.6 % Normal 43.0-75.0 [facility] Comment on above: Performed By: #### B GURPREET, TSH #### [facility] [address] [place] [address] Dr. Reema Mireles Platelet mean volume (Bld) [Entitic vol] 9.9 fL Normal 9.5-13.5 [facility] Comment on above: Performed By: #### B MP, TSH #### [facility] [address] [place] [address] Dr. Reema Mireles PLT 403 103/ul Normal 150-450 [facility] Comment on above: Performed By: #### B MP, TSH #### [facility] [address] [place] [address] Dr. Reema Mireles RBC 4.37 106/ul Normal 4.20-5.40 [facility] Comment on above: Performed By: #### B MP, TSH #### [facility] [address] [place] [address] Dr. Reema Mireles WBC 6.3 103/ul Normal 4.0-11.0 [facility] Comment on above: Performed By: #### B MP, TSH #### [facility] [address] [place] [address] Dr. Reema Mireles PROF 14(COMP METB)on 022 Albumin [Mass/Vol] 4.3 g/dL Normal 3.4-5.0 [facility] Comment on above: Performed By: #### B MP, TSH #### [facility] [address] [place] [address] Dr. Reema Mireles Albumin/Globulin [Mass ratio] 1.2 {ratio} Normal [facility] Comment on above: Performed By: #### B MP, TSH #### [facility] [address] [place] [address] Dr. Reema Mireles ALP [Catalytic activity/Vol] 79 U/L Normal 46-116 [facility] Comment on above: Performed By: #### B MP, TSH #### [facility] [address] [place] [address] Dr. Reema Mireles ALT [Catalytic activity/Vol] 31 U/L Normal 14-59 [facility] Comment on above: Performed By: #### B MP, TSH #### [facility] [address] [address] [address] Reema Mireles Anion gap [Moles/Vol] 12.1 mmol/L Normal [facility] Comment on above: Performed By: #### B MP, TSH #### [facility] [address] [place] [address] Dr. Reema Mireles AST [Catalytic activity/Vol] 17 U/L Normal 15-37 [facility] Comment on above: Performed By: #### B MP, TSH #### [facility] [address] [place] [address] Dr. Reema Mireles Bilirubin [Mass/Vol] 0.4 mg/dL Normal 0.2-1.0 [facility] Comment on above: Performed By: #### B GURPREET, TSH #### [facility] [address] [place] [address] Dr. Reema Mireles Calcium [Mass/Vol] 8.9 mg/dL Normal 8.5-10.1 [facility] Comment on above: Performed By: #### B GURPREET, TSH #### [facility] [address] [place] [address] Dr. Reema Mireles Chloride [Moles/Vol] 98 mmol/L Normal 98-107 [facility] Comment on above: Performed By: #### B GURPREET, TSH #### [facility] [address] [place] [address] Dr. Reema Mireles CO2 [Moles/Vol] 27.0 mmol/L Normal 21.0-32.0 [facility] Comment on above: Performed By: #### B GURPREET, TSH #### [facility] [address] [place] [address] Dr. Reema Mireles Creatinine [Mass/Vol] 0.65 mg/dL Normal 0.55-1.02 [facility] Comment on above: Performed By: #### B GURPREET, TSH #### [facility] [address] [place] [address] Dr. Reema Mireles EGFR-AF VINCENTIAN >60 Normal >=60 [facility] Comment on above: Performed By: #### B GURPREET, TSH #### [facility] [address] [address] [address] Reema Mireles EGFR-NON AF VINCENTIAN >60 Normal >=60 [facility] Comment on above: Performed By: #### B GURPREET, TSH #### [facility] [address] [address] [address] Reema Mireles Globulin (S) [Mass/Vol] 3.5 g/dL Normal [facility] Comment on above: Performed By: #### B GURPREET, TSH #### [facility] [address] [address] [address] Reema Mireles Glucose [Mass/Vol] 106 mg/dL Normal 74-106 [facility] Comment on above: Performed By: #### B GURPREET, TSH #### [facility] [address] [address] [address] Reema Mireles Potassium [Moles/Vol] 3.1 mmol/L Critically low 3.5-5.1 [facility] Comment on above: Performed By: #### B GURPREET, TSH #### [facility] [address] [place] [address] Dr. Reema Mireles Protein [Mass/Vol] 7.8 g/dL Normal 6.4-8.2 [facility] Comment on above: Performed By: #### B GURPREET, TSH #### [facility] [address] [place] [address] Dr. Reema Mireles Sodium [Moles/Vol] 134 mmol/L Critically low 136-145 [facility] Comment on above: Performed By: #### B GURPREET, TSH #### [facility] [address] [place] [address] Dr. Reema Mireles Urea nitrogen [Mass/Vol] 6.0 mg/dL Critically low 7.0-18.0 [facility] Comment on above: Performed By: #### B GURPREET, TSH #### [facility] [address] [place] [address] Dr. Reema Mireles Urea nitrogen/Creatinine [Mass ratio] 9.2 mg/mg Normal [facility] Comment on above: Performed By: #### B GURPREET, TSH #### [facility] [address] [place] [address] Dr. Reema Mireles ACETONE SERUMon 08-11-2022 ACETONE Negative Normal NEGATIVE [facility] Comment on above: Performed By: #### B MP, TSH #### [facility] [address] [place] [address] Dr. Reema Mireles CBC AUTO DIFFon 08-11-2022 BASO # 0.1 103/ul Normal 0.0-0.1 [facility] Comment on above: Performed By: #### B MP, TSH #### [facility] [address] [place] [address] Dr. Reema Mireles Basophils/100 WBC (Bld) 0.5 % Normal 0.2-2.0 [facility] Comment on above: Performed By: #### B GURPREET, TSH #### [facility] [address] [place] [address] Dr. Reema Mireles EO # 0.1 103/ul Normal 0.0-0.7 [facility] Comment on above: Performed By: #### B GURPREET, TSH #### [facility] [address] [place] [address] Dr. Reema Mireles Eosinophils/100 WBC (Bld) 0.7 % Critically low 0.9-7.0 [facility] Comment on above: Performed By: #### B GURPREET, TSH #### [facility] [address] [place] [address] Dr. Reema Mireles Erythrocyte distribution width (RBC) [Ratio] 11.7 % Normal 11.0-15.0 [facility] Comment on above: Performed By: #### B GURPREET, TSH #### [facility] [address] [place] [address] Dr. Reema Mrieles Hematocrit (Bld) [Volume fraction] 37.6 % Normal 36.0-48.0 [facility] Comment on above: Performed By: #### B GURPREET, TSH #### [facility] [address] [place] [address] Dr. Reema Mireles Hemoglobin (Bld) [Mass/Vol] 13.1 g/dL Normal 12.0-16.0 [facility] Comment on above: Performed By: #### B MP, TSH #### [facility] [address] [place] [address] Dr. Reema Mireles IG # 0.02 10e3/ul Normal 0.00-0.03 [facility] Comment on above: Performed By: #### B MP, TSH #### [facility] [address] [place] [address] Dr. Reema Mireles IG % 0.2 % Normal 0.0-0.5 [facility] Comment on above: Performed By: #### B MP, TSH #### [facility] [address] [place] [address] Dr. Reema Mireles LYMPH # 2.7 103/ul Normal 1.2-3.8 [facility] Comment on above: Performed By: #### B MP, TSH #### [facility] [address] [place] [address] Dr. Reema Mireles Lymphocytes/100 WBC (Bld) 28.5 % Normal 20.5-60.0 [facility] Comment on above: Performed By: #### B MP, TSH #### [facility] [address] [place] [address] Dr. Reema Mireles MANUAL DIFF REQ NO Normal [facility] Comment on above: Performed By: #### B MP, TSH #### [facility] [address] [place] [address] Dr. Reema Mireles MCH (RBC) [Entitic mass] 30.3 pg Normal 26.7-34.0 [facility] Comment on above: Performed By: #### B MP, TSH #### [facility] [address] [place] [address] Dr. Reema Mireles MCHC (RBC) [Mass/Vol] 34.8 g/dL Normal 29.9-35.2 [facility] Comment on above: Performed By: #### B MP, TSH #### [facility] [address] [place] [address] Dr. Reema Mireles MCV (RBC) [Entitic vol] 87.0 fL Normal 81.0-99.0 [facility] Comment on above: Performed By: #### B MP, TSH #### [facility] [address] [address] [address] Reema Mireles MONO # 0.8 103/ul Normal 0.3-0.8 [facility] Comment on above: Performed By: #### B MP, TSH #### [facility] [address] [place] [address] Dr. Reema Mireles Monocytes/100 WBC (Bld) 8.2 % Normal 1.7-12.0 [facility] Comment on above: Performed By: #### B MP, TSH #### [facility] [address] [place] [address] Dr. Reema Mireles NEUT # 5.9 103/ul Normal 1.4-6.5 [facility] Comment on above: Performed By: #### B MP, TSH #### [facility] [address] [place] [address] Dr. Reema Mireles Neutrophils/100 WBC (Bld) 61.9 % Normal 43.0-75.0 [facility] Comment on above: Performed By: #### B MP, TSH #### [facility] [address] [place] [address] Dr. Reema Mireles Platelet mean volume (Bld) [Entitic vol] 10.2 fL Normal 9.5-13.5 [facility] Comment on above: Performed By: #### B MP, TSH #### [facility] [address] [place] [address] Dr. Reema Mireles PLT 382 103/ul Normal 150-450 [facility] Comment on above: Performed By: #### B MP, TSH #### [facility] [address] [place] [address] Dr. Reema Mireles RBC 4.32 106/ul Normal 4.20-5.40 [facility] Comment on above: Performed By: #### B MP, TSH #### [facility] [address] [place] [address] Dr. Reema Mireles WBC 9.6 103/ul Normal 4.0-11.0 [facility] Comment on above: Performed By: #### B MP, TSH #### [facility] [address] [place] [address] Dr. Reema Mireles CRPon 08-11-2022 CRP [Mass/Vol] mg/L Normal <=1.0 [facility] Comment on above: Performed By: #### B MP, TSH #### [facility] [address] [place] [address] Dr. Reema Mireles ER URINE PROFILEon Bilirubin Ql (U) Negative Normal NEGATIVE [facility] Comment on above: Performed By: #### B MP, TSH #### [facility] [address] [place] [address] Dr. Reema Mireles Clarity (U) CLEAR Normal CLEAR [facility] Comment on above: Performed By: #### B MP, TSH #### [facility] [address] [place] [address] Dr. Reema Mireles Color (U) LT. YELLOW Normal YELLOW [facility] Comment on above: Performed By: #### B MP, TSH #### [facility] [address] [place] [address] Dr. Reema RICHARDSONJohana A micrscopic examination will be performed if indicated. Normal [facility] Comment on above: Performed By: #### B MP, TSH #### [facility] [address] [place] [address] Dr. Reema Mireles Glucose Ql (U) Negative Normal NEGATIVE [facility] Comment on above: Performed By: #### B MP, TSH #### [facility] [address] [place] [address] Dr. Reema Mireles Hemoglobin Ql (U) Negative Normal NEGATIVE [facility] Comment on above: Performed By: #### B MP, TSH #### [facility] [address] [place] [address] Dr. Reema Mireles Ketones Ql (U) Negative Normal NEGATIVE [facility] Comment on above: Performed By: #### B MP, TSH #### [facility] [address] [place] [address] Dr. Reema Mireles LEUKOCYTES Negative Normal NEGATIVE [facility] Comment on above: Performed By: #### B MP, TSH #### [facility] [address] [place] [address] Dr. Reema Mireles Nitrite Ql (U) Negative Normal NEGATIVE [facility] Comment on above: Performed By: #### B MP, TSH #### [facility] [address] [place] [address] Dr. Reema Mireles pH (U) 5.5 [pH] Normal 5-9 [facility] Comment on above: Performed By: #### B MP, TSH #### [facility] [address] [place] [address] Dr. Reema Mireles SPEC GRAVITY <=1.005 Abnormal 1.005-<=1.[address] [facility] Comment on above: Performed By: #### B MP, TSH #### [facility] [address] [place] [address] Dr. Reema Mireles UA PROTEIN Negative Normal NEGATIVE/ TRACE [facility] Comment on above: Performed By: #### B MP, TSH #### [facility] [address] [place] [address] Dr. Reema Mireles UR MICRO IND NOT INDICATED Normal [facility] Comment on above: Performed By: #### B MP, TSH #### [facility] [address] [place] [address] Dr. Reema Mireles Urobilinogen Qn (U) 0.2 {Renny'U}/dL Normal 0.2 - 1. 0 [facility] Comment on above: Performed By: #### B MP, TSH #### [facility] [address] [place] [address] Dr. Reema Mireles LIPASEon 08-11-2022 Lipase [Catalytic activity/Vol] 71.0 U/L Critically low 73.0-393.0 [facility] Comment on above: Performed By: #### B MP, TSH #### [facility] [address] [place] [address] Dr. Reema Mireles URon 08-11-2022 , QUAL Negative Normal NEGATIVE [facility] Comment on above: Performed By: #### C VDTBH #### [facility] [address] [address] [address] Reema Mireles PROF 14(COMP METB)on 022 Albumin [Mass/Vol] 4.3 g/dL Normal 3.4-5.0 [facility] Comment on above: Performed By: #### B MP, TSH #### [facility] [address] [address] [address] Reema Mireles Albumin/Globulin [Mass ratio] 1.2 {ratio} Normal [facility] Comment on above: Performed By: #### B MP, TSH #### [facility] [address] [address] [address] Reema Mireles ALP [Catalytic activity/Vol] 70 U/L Normal 46-116 [facility] Comment on above: Performed By: #### B MP, TSH #### [facility] [address] [place] [address] Dr. Reema Mireles ALT [Catalytic activity/Vol] 16 U/L Normal 14-59 [facility] Comment on above: Performed By: #### B MP, TSH #### [facility] [address] [address] [address] Reema Mireles Anion gap [Moles/Vol] 10.5 mmol/L Normal [facility] Comment on above: Performed By: #### B MP, TSH #### [facility] [address] [address] [address] Reema Mireles AST [Catalytic activity/Vol] 8 U/L Critically low 15-37 [facility] Comment on above: Performed By: #### B MP, TSH #### [facility] [address] [address] [address] Reema Mireles Bilirubin [Mass/Vol] 0.3 mg/dL Normal 0.2-1.0 [facility] Comment on above: Performed By: #### B MP, TSH #### [facility] [address] [address] [address] Reema Mireles Calcium [Mass/Vol] 9.0 mg/dL Normal 8.5-10.1 [facility] Comment on above: Performed By: #### B MP, TSH #### [facility] [address] [address] [address] Reema Mireles Chloride [Moles/Vol] 104 mmol/L Normal 98-107 [facility] Comment on above: Performed By: #### B MP, TSH #### [facility] [address] [address] [address] Reema Mireles CO2 [Moles/Vol] 26.5 mmol/L Normal 21.0-32.0 [facility] Comment on above: Performed By: #### B MP, TSH #### [facility] [address] [address] [address] Reema Mireles Creatinine [Mass/Vol] 0.79 mg/dL Normal 0.55-1.02 [facility] Comment on above: Performed By: #### B MP, TSH #### [facility] [address] [address] [address] Reema Mireles EGFR-AF VINCENTIAN >60 Normal >=60 [facility] Comment on above: Performed By: #### B MP, TSH #### [facility] [address] [address] [address] Reema Mireles EGFR-NON AF VINCENTIAN >60 Normal >=60 [facility] Comment on above: Performed By: #### B MP, TSH #### [facility] [address] [address] [address] Reema Mireles Globulin (S) [Mass/Vol] 3.5 g/dL Normal [facility] Comment on above: Performed By: #### B MP, TSH #### [facility] [address] [address] [address] Reema Mireles Glucose [Mass/Vol] 106 mg/dL Normal 74-106 [facility] Comment on above: Performed By: #### B MP, TSH #### [facility] [address] [address] [address] Reema Mireles Potassium [Moles/Vol] 3.0 mmol/L Critically low 3.5-5.1 [facility] Comment on above: Performed By: #### B MP, TSH #### [facility] [address] [place] [address] Dr. Reema Mireles Protein [Mass/Vol] 7.8 g/dL Normal 6.4-8.2 [facility] Comment on above: Performed By: #### B MP, TSH #### [facility] [address] [place] [address] Dr. Reema Mireles Sodium [Moles/Vol] 138 mmol/L Normal 136-145 [facility] Comment on above: Performed By: #### B MP, TSH #### [facility] [address] [place] [address] Dr. Reema Mireles Urea nitrogen [Mass/Vol] 8.0 mg/dL Normal 7.0-18.0 [facility] Comment on above: Performed By: #### B MP, TSH #### [facility] [address] [place] [address] Dr. Reema Mireles Urea nitrogen/Creatinine [Mass ratio] 10.1 mg/mg Normal [facility] Comment on above: Performed By: #### B MP, TSH #### [facility] [address] [place] [address] Dr. Reema Mireles PROTIMEon 08-11-2022 INR Coag (PPP) [Relative time] 1.00 {INR} Normal [facility] Comment on above: Performed By: #### P T, PTT #### [facility] [address] [place] [address] Dr. Reema Mireles INR GUIDELINES SEE BELOW Normal [facility] Comment on above: Result Comment: FELICIANO RED INR: 2.0 - 3.0 CONDITIONS NOT LISTED BELOW 2.5 - 3.5 FOR PROSTHETIC HEART VALVE REPLACEMENT 2.5 - 3.5 RECURRENT THROMBOSIS Performed By: #### P T, PTT #### [facility] [address] [place] [address] Dr. Reema Mireles PT Coag (PPP) [Time] 10.8 s Normal 9.0-11.6 [facility] Comment on above: Performed By: #### P T, PTT #### [facility] [address] [address] [address] Reema Mireles PTTon 08-11-2022 aPTT Coag (Bld) [Time] 30.8 s Normal 22.3-36.2 [facility] Comment on above: Performed By: #### P T, PTT #### [facility] [address] [place] [address] Dr. Reema Mireles [facility] 10 mm/hr Normal <=20 [facility] Comment on above: Performed By: #### B MP, TSH #### [facility] [address] [place] [address] Dr. Reema Mireles TSHon 08-11-2022 TSH 3.313 uIU/mL Normal 0.358-3.740 [facility] Comment on above: Performed By: #### B MP, TSH #### [facility] [address] [place] [address] Dr. Reema Mireles Discharge Instructionson Discharge Instructions [id number] #1.00CD:127 Normal [facility] Comment on above: Other Comment: wrong patient STOOL CULTUREon 04-20-2022 Campylobacter Culture Final report Normal [facility] Comment on above: Performed By: #### B MP, TSH #### [facility] [address] [place] [address] Dr. Reema Mireles E coli Shiga Toxin EIA Negative Normal Negative [facility] Comment on above: Performed By: #### B MP, TSH #### [facility] [address] [place] [address] Dr. Reema Mireles Result 1 Comment Normal [facility] Comment on above: Result Comment: No S almonella or Shigella recovered. Performed By: #### B MP, TSH #### [facility] [address] [place] [address] Dr. Reema Mireles Result Comment: No C ampylobacter species isolated. Salmonella/Shigella Screen Final report Normal [facility] Comment on above: Performed By: #### B MP, TSH #### [facility] [address] [place] [address] Dr. Reema Mireles Coding Summary.on 04-14-2022 Coding Summary. CD:[id number] Gh0bWw+PGhlYWQ+PE1FV OKlG60lxNBpzI8UR3tMT C3SNRPKSMJFZT8JZB0sy SB0CUxoG1RrfaNc DopaqQZpVD68OSi1BKO3 cSgdKRjrrK5clIHrG3t7 WkFeXU55iG38JGdmROTp OkQ1QyGcovhxcFDg A3xmEzOvmBRkNuw+PHRh YmxlIHdpZHRoPScxMDAl VxDmqHbdWG7fQw5kIVVv LWNvbGxhcHNlOiBj w6hxIKYhINolCE9mxZil H1XvqBI0NVJbh2e7Dv75 dHI+LFLzMMG1gHaxHHho t839XlDni9dyESK2 eVHlSDqrZCU9F87ax4L1 SHBnKTRgSBR3tEL0hD4y eCtnharwW6WxdNOfNuD8 WCF9tOZdyK0ygWtm cnimdF0zBnm+I46AHH8G XTSSNH6CCff7L5UgBmtt dHI+YJ43PMCsKR60fCPa nYGei7theVn0IaIt ALBqXHO8aJqfIZmgo5Lp KXTpX50enHLgr3O0IMWv sKflsMXcHvFqjIM1kS8y CLwltoyin4nevtkp Rtcib0setc71zO42V96m XBgpHKRiKBJ5GEGsIBFg iNrhaz8wmK6oMm5+IDxj v9ebz9ohtDa2IoJg UCUjpnCfpHjgITW9s4Jf Xj95A1KdgGhum7FmQgh1 ra33iAQst7Z0vWI8NZvq TDFqkA9ySObrRoK2 DWLsBvYxdA06iYMgLHke Ox5whQxlrHlbDU7fQVRf rityBQGutH2eXJZjeLPg lZrrVW3qZJAfhtqd r769ClEfQZC2IFDwsFUu T8NqdD3yYbFyRUWjFRJt T7OzwSKlQEoyG252DRow DrF8YEImzyCrT5Tb ICHccQulTeD4e4O8Pp4V w8SxfgfyUID2LLumDZV7 YqW4PyXvTiX4N1QtHab0 BWFiuReaOL0cC0Hi ZRFlkhjcgozolGE9TQAk MBWliH53jNLiJTwwUe0d j6N8s378GNQrKRGapR87 Ho2msQuyCMVysPTC pP0wgzyue4zihaitLdMr QMIlDRo5ZUo2NWDsrHzf KaCpCLM7JvI2PUW6dDNr jO1qlCngmyoxwD2l Oyc+L94nlF9xAID1JQZ4 vcueCFNweuClRD77GZ53 D9KbDrblgNAumGP+PGRp vgMbsNecEE2lPaPt v0swg8UaIFztF0LqFKIx FVkpEqg3NUJgSLA9sFN8 hT2mEGTcYYhdn9N8mFD5 Y9PfglTskq9me4hz UHJhJDtnN85udJDmj4S4 SCLgoEX2TYPxxMftHuOs eB48Srx+ZGEamMreo2Iw Nfpxa9vmz8orgTs0 IjMwJSIgdmFsaWduPSJ0 l6XqEg57N68dJXkmKFEy ERFfFUQrTHQkzGkfgb1p bH3sMp2+PGNvbCB3 fVK1xN4dPBDuIaK4JMgq D623VtPrfHJjPzpnc3dt q9ijzOr6ZrIyPVBkszHi gCgkAGM5u6FjUp85 G36hMXkcCTLnRGYmFOHa JBEdsPwrif7jlC9tWf5+ LA7lf6wqbq08xI55yKA+ BNXePJW1fWcaZLct INEgpB1mVCxzJgW7MXMk MqYiyE92tTZmIBufMk9o rNhwyOywQX0oRBGnhwgq r122AfJqh3jsJZMp sIFeTQnjMLH1E65hh3J7 FWRaKKCtZSZ3hOC5mD2w bGlnbjogbGVmdDsgdmVy bUqbIOkvQEyzN748 IHRvcDsnPlBhdGllbnQg HzViAJc8I0MdGuv5CZLx oDotGW3kmKVtAHbuGa1z jMlfiZaaON4aXAJk wraww869MwAjh0mxLXXg wZJcFXhyRDI6B16lh6M8 XOVgNCLyRCO5gVQ9xJ5l bGlnbjogbGVmdDsg efXxfGnaLWtiNPeaR974 IHRvcDsnPkJpcnRoIERh zDS2ZZ19AI30lYEuw8E8 sKJ7B6LyLJRwyeqr nfqgnBY4CWHnZFKjjT63 Dy5ulWglDk0sNBHxMJJ9 FZFimOYaT3UcsJ0iTkJz PMFbKRLuL6PitPEg EHseF482INtjKrR7LGYh yvTwW2MfVQNlxTmlXtW6 n9J9Qg0EO7Q8ON52JT50 wPGdh7X3dSH7C5Cg KFZszvdtsqthhUW7EFSw ZXLcqU37Wc3awYnnEt5j GJJfMQI4EULepVJzC1Ax rX8eOnKfMQUtMIFf U0QrxXRlSZwrQ549QKmp PeG0DVZjcbKfS4DhOITx gMjyKnF7b2K1Ux2DUCp0 KT78JJ22jMJhq0M7 nEC6G0JsLCKncvnjdjhj eDI0ZBGuZGOubC47Ub8c gPetVt1fPPQdBFN0HGTo nZFaS6TfnV5zCsAw PGFuXXFjD4LhiZEbRRrz P591YThiOrX1OYFgmgZc I7TzTEBlhNjvQlK3e3Y2 Sk9DJIMwJK36SWQ8 nDQ6CQ81NG27N0LqIhip dGFibGU+PHRhYmxlIHdp ZHRoPScxMDAlJyBzdHls QG1bIy2qFUZqBONx zQheaEWvPxPjz6vfONZb CGdcHU0oxNtbB9UveWM5 WUFkf7p6Vg48U22vA3Ha dXA+NSWrsWH2xIY2 gS0yBqUfKiQ7ELlqV082 ReVrwTIuNjlhg4khk0rn uDk0AfI4XLWtpeJpnLyg RWE3k4PnXg81N38c IHdpZHRoPSIxNSUiIHZh gKxfzt7svT5qZu9+PGNv zBT1lGX9vW1nFcJdQbT8 NEsjK301GdTlxCGz Mzqpb5oqi8hyxOa0MwDd IWNmadGqnPumHZQ8s6Rz Ak22H4LmhVmbo8LdTix3 jl69aOJvr4E2xJE1 O9VbTOUstkabcYOmtHvp TY7qYCAtejsaSUKmqC6g METmQ2f4TrGuUsV8MQxe F2AjbyH1NHYadPPi MQelAJX6P13zu4Z5RTFv OHMcMBE2sLY6wR4lzJnv bjogbGVmdDsgdmVydGlj GNgyUIveC426XJIo eMssQRWsxK4eTZOnbITw rVrsEL6cWOXfbgxsGkkB CJAYM59GD4gHKGQKEOQN UDL0B4HlJxo0BNGt kEcbVJ0mwCUuSWckOo0k zKuzeFalTL6rMPHrhfjn KVZihG3rAJFevPGobRuu BU1dIGTzjdgxw932 BdCuPBB8IQPjpZLjF6Vw hK9wDpPuVBFzFDJjG9Bi jVYcIRsqP951XRbrCeQ9 MFSjmzKmN7OcBHQx rDlyIdG8p3C0Df8kIb9i BX1tHKYyZS70CK70rFVm i7M3tRB0H3GjJBZtxrqk xsbvpKQ7WNLcIXWg kC29yENhRKulAt8ba1V0 b868TVKvFZLeqO20Ua0v oKciYWAdjLQHzC9zvayq q6qmxonsGjXmFQWo RPc0NWw0NSXmnSyrWmZt HML9RwD4TYA9lCLglX5e jOowyhnusM3wFph+MjAg MAVuphL9A6UsYpa7 MAUbuMlmNW6yiDDdHNds Bf0cqLnwhDtnQB6lJGCr crsuRSTvwA5wVOZazLOp uNmhRY3aHQJrwlfk p506JmQsPQS2MNFmwDYb S4XccK0qDgVgJSWpAXIh K4VdcOQmFAjxE688HAnz OjI7HCDfsoZfN0Zs TXLotValTvJ9z1D2Pk9O PD1vtFG1I9PuDhh2JLVs nFnfQV1eoMTdQQzxHg9k wTjkvQuiTB8mHPAx uptwEEDymM2bCERznZIy zQfeOY9xFPOjrmvhy525 TuIqXGP5DJTrnRDfZ2Js iD9dGcMzMDDsDYXv H1VbrKVdCXtlO674PVbi DbC2AUJnsxNvF7YwQMAp yBttWvW9y9Y9Aw4UxKTn R1GlH5n4R6FfJoci dHI+LT06LXGkIT14dVFr gBRrc9apbOc9YuPiZLTw FKG0uYrqHPyzc1TuRWLm L90bjUWni2W8KRCs wEsgpFLlUfNyvFN0lD1w ESjiopzpn6xxppbuOrva f9llaz89oZ69L06dGRlr ZHRoPSIzMCUiIHZh tMltuh7esH0aIr4+PGNv uTD0nKC2cE1hAgEpTfS4 MFtgB219JxSlxWBtJlul r0gpa1susYq8OfAx KDQthgEfiYhbPZF5b9Ud Cm07P36pXNajIWRpODOi AGLiZZVsmJmfcw8biE8c Ii8+DX1il0lymg59 eX40zQY+PFIbGCZ5sYiq TYaxJKMkrP4oRAqkMoP9 NAHhFvCroA65aJXeMEye Yo5drAhvpGnlXO9k ISImfcmcs643NpUrv9vq MOTqbBEoEHncPVK5U78z k3A6RVHpGWCdAKD6iQQ4 kR4djGzxvykcmFXv dDsgdmVydGljYWwtYWxp F115TYSscXfmIoMnkGJj N6hssjLTHY0rMjwtvKD+ RZFbMJX5sJwvDUor VXXryX6zJXJtP8q8JkSs IrV9IWjbI3PgnkB5JGVf lZTwLOKfiFPRdO2gosga n1scktkmNvSzEQLr QJy9TXp5UOLguIgwRkEi HHH9RdT5DYE4oOWbiX8f cPoffetutD1yArk+RklO OjwvdGQ+PHRkIHN0 fJgsNLxgVKEyyZ7yURPo G0t8SzHgCrH1KNxwP9Gv chT1TQNijTMlOCFtpZEY uT0mlhtod5ycxejm DfEgBUPwMCa5CLf9EYBp oUaqIiOlNUC1SbN5NAS6 eHBhjF5idLamcjmciN8p Oyc+TVJOOjwvdGQ+ WCUjZRE9rQchHFufNWOx lQ3aNPGdV2v9NmPpOlY1 SCipY1SfelK1KCHvrVVs FVEbeJMLoV8srzja h2xfbthzJrBwTEZnKRz0 BBq4UMSygKmzDmFkTFH0 HbN5AAQ1fFEbnB8lpRtm zkhdoO9oOnr+UGF5 AXK4UI08VI57M6RzRiao dGFibGU+PHRhYmxlIHdp ZHRoPScxMDAlJyBzdHls LV5gOw0bPNDxELCe bGxh (more content not included)... Normal [facility] CBC AUTO DIFFon 04-13-2022 BASO # 0.1 103/ul Normal 0.0-0.1 [facility] Comment on above: Performed By: #### C VDTBH #### [facility] [address] [place] [address] Dr. Reema Mireles Basophils/100 WBC (Bld) 0.6 % Normal 0.2-2.0 [facility] Comment on above: Performed By: #### C VDTBH #### [facility] [address] [place] [address] Dr. Reema Mireles EO # 0.0 103/ul Normal 0.0-0.7 [facility] Comment on above: Performed By: #### C VDTBH #### [facility] [address] [place] [address] Dr. Reema Mireles Eosinophils/100 WBC (Bld) 0.2 % Critically low 0.9-7.0 [facility] Comment on above: Performed By: #### C VDTBH #### [facility] [address] [place] [address] Dr. Reema Mireles Erythrocyte distribution width (RBC) [Ratio] 11.4 % Normal 11.0-15.0 [facility] Comment on above: Performed By: #### C VDTBH #### [facility] [address] [place] [address] Dr. Reema Mireles Hematocrit (Bld) [Volume fraction] 38.3 % Normal 36.0-48.0 [facility] Comment on above: Performed By: #### C VDTBH #### [facility] [address] [place] [address] Dr. Reema Mireles Hemoglobin (Bld) [Mass/Vol] 13.4 g/dL Normal 12.0-16.0 [facility] Comment on above: Performed By: #### C VDTBH #### [facility] [address] [place] [address] Dr. Reema Mireles IG # 0.01 10e3/ul Normal 0.00-0.03 [facility] Comment on above: Performed By: #### C VDTBH #### [facility] [address] [place] [address] Dr. Reema Mireles IG % 0.1 % Normal 0.0-0.5 [facility] Comment on above: Performed By: #### C VDTBH #### [facility] [address] [place] [address] Dr. Reema Mireles LYMPH # 1.8 103/ul Normal 1.2-3.8 [facility] Comment on above: Performed By: #### C VDTBH #### [facility] [address] [place] [address] Dr. Reema Mireles Lymphocytes/100 WBC (Bld) 22.2 % Normal 20.5-60.0 [facility] Comment on above: Performed By: #### C VDTBH #### [facility] [address] [place] [address] Dr. Reema Mireles MANUAL DIFF REQ NO Normal [facility] Comment on above: Performed By: #### C VDTBH #### [facility] [address] [place] [address] Dr. Reema Mireles MCH (RBC) [Entitic mass] 30.6 pg Normal 26.7-34.0 [facility] Comment on above: Performed By: #### C VDTBH #### [facility] [address] [place] [address] Dr. Reema Mireles MCHC (RBC) [Mass/Vol] 35.0 g/dL Normal 29.9-35.2 [facility] Comment on above: Performed By: #### C VDTBH #### [facility] [address] [place] [address] Dr. Reema Mireles MCV (RBC) [Entitic vol] 87.4 fL Normal 81.0-99.0 [facility] Comment on above: Performed By: #### C VDTBH #### [facility] [address] [place] [address] Dr. Reema Mireles MONO # 0.7 103/ul Normal 0.3-0.8 [facility] Comment on above: Performed By: #### C VDTBH #### [facility] [address] [place] [address] Dr. Reema Mireles Monocytes/100 WBC (Bld) 8.2 % Normal 1.7-12.0 [facility] Comment on above: Performed By: #### C VDTBH #### [facility] [address] [place] [address] Dr. Reeam Mireles NEUT # 5.5 103/ul Normal 1.4-6.5 [facility] Comment on above: Performed By: #### C VDTB #### [facility] [address] [place] [address] Dr. Reema Mireles Neutrophils/100 WBC (Bld) 68.7 % Normal 43.0-75.0 [facility] Comment on above: Performed By: #### C VDTBH #### [facility] [address] [place] [address] Dr. Reema Mireles Platelet mean volume (Bld) [Entitic vol] 10.1 fL Normal 9.5-13.5 [facility] Comment on above: Performed By: #### C VDTBH #### [facility] [address] [place] [address] Dr. Reema Mireles PLT 404 103/ul Normal 150-450 [facility] Comment on above: Performed By: #### C VDTBH #### [facility] [address] [place] [address] Dr. Reema Mireles RBC 4.38 106/ul Normal 4.20-5.40 [facility] Comment on above: Performed By: #### C VDTBH #### [facility] [address], [place] [address] Dr. Reema Mireles WBC 8.0 103/ul Normal 4.0-11.0 [facility] Comment on above: Performed By: #### C VDTBH #### [facility] [address] [place], [place] [address] HEAD WO CONon [...] AURELIA CARLOS Date: 2022-04-13 16:29 Normal [facility] Discharge Instructionson Discharge Instructions [id number] #1.00CD:127 Normal [facility] ED Note-Physicianon 04-13-20 ED Note-Physician Basic Information Time Seen: Lata Hardy M.D. 04/12/2022 19:56 Chief Complaint Pt. presents to the ed with c/o headache and vertigo since thursday. Pt. was seen [facility] and started on prednisone. pt. stopped taking [...] The patient states [facility] discharged home. She went to [...] neurological deficit. She has been seen at [facility] and started on prednisone. Possible [...] ADRYAN MARIE In 3 days 04/15/[address] [place], [place] [id number]- Business (1) Additional Instructions: Return to the [...] Diagnostic Results No qualifying data available. Normal [facility] Comment on above: Result Comment: Elec tronically Signed By: Antony Villa, Lata Baxter\.br\Date and Time Signed: 04/13/22 04:56 EDT ER URINE PROFILEon 2 Bilirubin Ql (U) Negative Normal NEGATIVE [facility] Comment on above: Performed By: #### P REGU, ERUR #### [facility] [address] [place] [address] Dr. Reema Mireles Clarity (U) CLEAR Normal CLEAR [facility] Comment on above: Performed By: #### P REGU, ERUR #### [facility] [address] [place] [address] Dr. Reema Mireles Color (U) LT. YELLOW Normal YELLOW [facility] Comment on above: Performed By: #### P REGU, ERUR #### [facility] [address] [place] [address] Dr. Reema ELIZALDE A micrscopic examination will be performed if indicated. Normal [facility] Comment on above: Performed By: #### P REGU, ERUR #### [facility] [address] [place] [address] Dr. Reema Mireles Glucose Ql (U) Negative Normal NEGATIVE [facility] Comment on above: Performed By: #### P REGU, ERUR #### [facility] [address] [place] [address] Dr. Reema Mireles Hemoglobin Ql (U) Negative Normal NEGATIVE [facility] Comment on above: Performed By: #### P REGU, ERUR #### [facility] [address] [place] [address] Dr. Reema Mireles Ketones Ql (U) Negative Normal NEGATIVE [facility] Comment on above: Performed By: #### P REGU, ERUR #### [facility] [address] [place] [address] Dr. Reema Mireles LEUKOCYTES Negative Normal NEGATIVE [facility] Comment on above: Performed By: #### P REGU, ERUR #### [facility] [address] [place] [address] Dr. Reema Mireles Nitrite Ql (U) Negative Normal NEGATIVE [facility] Comment on above: Performed By: #### P REGU, ERUR #### [facility] [address] [place] [address] Dr. Reema Mireles pH (U) 6.5 [pH] Normal 5-9 [facility] Comment on above: Performed By: #### P REGU, ERUR #### [facility] [address] [place] [address] Dr. Reema Mireles SPEC GRAVITY 1.005 Normal 1.005-<=1.[address] [facility] Comment on above: Performed By: #### P REGU, ERUR #### [facility] [address] [place] [address] Dr. Reema Mireles UA PROTEIN Negative Normal NEGATIVE/ TRACE [facility] Comment on above: Performed By: #### P REGU, ERUR #### [facility] [address] [place] [address] Dr. Reema Mireles UR MICRO IND NOT INDICATED Normal [facility] Comment on above: Performed By: #### P REGU, ERUR #### [facility] [address] [place] [address] Dr. Reema Mireles Urobilinogen Qn (U) 0.2 {Renny'U}/dL Normal 0.2 - 1. 0 [facility] Comment on above: Performed By: #### P REGU, ERUR #### [facility] [address] [address] [address] Reema Mireles URon 04-13-2022 , QUAL Negative Normal NEGATIVE [facility] Comment on above: Performed By: #### P REGU, ERUR #### [facility] [address] [address] [address] Reema Mireles PROF CHEM 8 (BAS METB)on Anion gap [Moles/Vol] 14.0 mmol/L Normal [facility] Comment on above: Performed By: #### B MP, TSH #### [facility] [address] [address] [address] Reema Mireles Calcium [Mass/Vol] 9.2 mg/dL Normal 8.5-10.1 [facility] Comment on above: Performed By: #### B MP, TSH #### [facility] [address] [address] [address] Reema Mireles Chloride [Moles/Vol] 102 mmol/L Normal 98-107 [facility] Comment on above: Performed By: #### B MP, TSH #### [facility] [address] [address] [address] Reema Mireles CO2 [Moles/Vol] 26.3 mmol/L Normal 21.0-32.[address] [facility] Comment on above: Performed By: #### B MP, TSH #### [facility] [address] [address] [address] Reema Mireles Creatinine [Mass/Vol] 0.65 mg/dL Normal 0.55-1.02 [facility] Comment on above: Performed By: #### B MP, TSH #### [facility] [address] [address] [address] Reema Mireles EGFR-AF VINCENTIAN >60 Normal >=[address] [facility] Comment on above: Performed By: #### B MP, TSH #### [facility] [address] [place] [address] Dr. Reema Mireles EGFR-NON AF VINCENTIAN >60 Normal >=60 [facility] Comment on above: Performed By: #### B MP, TSH #### [facility] [address] [address] [address] Reema Mireles Glucose [Mass/Vol] 92 mg/dL Normal 74-106 [facility] Comment on above: Performed By: #### B MP, TSH #### [facility] [address] [address] [address] Reema Mireles Potassium [Moles/Vol] 3.3 mmol/L Critically low 3.5-5.1 [facility] Comment on above: Performed By: #### B MP, TSH #### [facility] [address] [address] [address] Reema Mireles Sodium [Moles/Vol] 139 mmol/L Normal 136-145 [facility] Comment on above: Performed By: #### B MP, TSH #### [facility] [address] [address] [address] Reema Mireles Urea nitrogen [Mass/Vol] 8.0 mg/dL Normal 7.0-18.0 [facility] Comment on above: Performed By: #### B MP, TSH #### [facility] [address] [address] [address] Reema Mireles Urea nitrogen/Creatinine [Mass ratio] 12.3 mg/mg Normal [facility] Comment on above: Performed By: #### B MP, TSH #### [facility] [address] [address] [address] Reema Mireles TSHon 04-13-2022 TSH 1.293 uIU/mL Normal 0.358-3.740 [facility] Comment on above: Performed By: #### B MP, TSH #### [facility] [address] [address] [address] Reema Mireles Consent for Treatmenton 03-28 Consent for Treatment [id number] Normal [facility] ED Clinical Summaryon 2021 ED Clinical Summary [address] [place] [address] ED Clinical Summary Person Information Name: JUANPABLO CHAPARRO [place] Age: 21 Years : 2000 Sex: Female Language: Swedish PCP: ADRYAN MARIE MD Marital Status: Single Phone: [phone] Visit Id: Visit Reason: Vertigo - recurrent; [...] 04/12/2022 21:07:38 04/12/2022 21:07:38 04/12/2022 21:07:38 ADDRESS: [address] [place] [phone] PHYS DOC NOTES: MEDICAL INFORMATION: Prescriptions Given: PATIENT EDUCATION INFORMATION: Instructions: General Headache Without Cause; Vertigo Follow up: With: Address: When: ADRYAN OSCAR [address] [place], [place] [id number] Business (1) In 3 days 04/15/2022 Comments: Return to the emergency room if her headache gets worse, vertigo becomes persistent or any new symptoms DIAGNOSIS: 1:Vertigo; 2:Headache Normal [facility] ED Patient Education Noteon 04-12-2022 ED [...] you feel dizzy. General instructions ? Take qxbl-gfu-rqxjvon and prescription medicines only as told by [...] 06/24/2006 Document Revised: 08/08/2019 Document Reviewed: 08/08/2019 [employer] Patient Education ? 2020 [employer] Neurology General Headache Without Cause A [...] with your condition: Managing pain ? Take lwey-yvx-azhwqoz and prescription medicines only as told by [...] of beer (more content not included)... Normal [facility] ED Patient Summaryon 022 ED Patient Summary [address] [place] [id number] Patient Discharge Instructions Person Information Name: JUANPABLO CHAPARRO Age: 21 Years Arrival Date: 04/12/2022 19:22:40 Discharge Diagnosis: 1:Vertigo; 2:Headache Primary Care Physician: ADRYAN MARIE MD Provider Information Primary Provider: Lata Hardy M.D. Advanced Server Software Engineer:None The exam and treatment you received in the Emergency Department were for an urgent problem and are not intended as complete care. It is important that you follow up with a doctor, nurse practitioner, or physician?s retail assistant for ongoing care. If your symptoms [...] Follow-up Instructions: With: Address: When: ADRYAN MARIE [address] [place], [place] [id number] [facility] (1) In 3 days 04/15/2022 Comments: Return [...] opioids can be used to help relieve cvqoachv-qt-exfhtv pain and are often prescribed following a [...] addiction, tel (more content not included)... Normal [facility] CBC AUTO DIFFon 04-09-2022 BASO # 0.1 103/ul Normal 0.0-0.1 [facility] Comment on above: Performed By: #### B MP, TSH #### [facility] [address] [address] [address] Reema Mireles Basophils/100 WBC (Bld) 0.5 % Normal 0.2-2.0 [facility] Comment on above: Performed By: #### B MP, TSH #### [facility] [address] [place] [address] Dr. Reema Mireles EO # 0.1 103/ul Normal 0.0-0.7 [facility] Comment on above: Performed By: #### B MP, TSH #### [facility] [address] [place] [address] Dr. Reema Mireles Eosinophils/100 WBC (Bld) 1.0 % Normal 0.9-7.0 [facility] Comment on above: Performed By: #### B MP, TSH #### [facility] [address] [place] [address] Dr. Reema Mireles Erythrocyte distribution width (RBC) [Ratio] 11.7 % Normal 11.0-15.0 [facility] Comment on above: Performed By: #### B MP, TSH #### [facility] [address] [place] [address] Dr. Reema Mireles Hematocrit (Bld) [Volume fraction] 37.2 % Normal 36.0-48.0 [facility] Comment on above: Performed By: #### B MP, TSH #### [facility] [address] [place] [address] Dr. Reema Mireles Hemoglobin (Bld) [Mass/Vol] 12.8 g/dL Normal 12.0-16.0 [facility] Comment on above: Performed By: #### B MP, TSH #### [facility] [address] [place] [address] Dr. Reema Mireles IG # 0.02 10e3/ul Normal 0.00-0.03 [facility] Comment on above: Performed By: #### B MP, TSH #### [facility] [address] [place] [address] Dr. Reema Mireles IG % 0.2 % Normal 0.0-0.5 [facility] Comment on above: Performed By: #### B MP, TSH #### [facility] [address] [place] [address] Dr. Reema Mireles LYMPH # 1.8 103/ul Normal 1.2-3.8 [facility] Comment on above: Performed By: #### B MP, TSH #### [facility] [address] [address] [address] Reema Mireles Lymphocytes/100 WBC (Bld) 19.0 % Critically low 20.5-60.0 [facility] Comment on above: Performed By: #### B MP, TSH #### [facility] [address] [place] [address] Dr. Reema Mireles MANUAL DIFF REQ NO Normal [facility] Comment on above: Performed By: #### B MP, TSH #### [facility] [address] [place] [address] Dr. Reema Mireles MCH (RBC) [Entitic mass] 30.4 pg Normal 26.7-34.0 [facility] Comment on above: Performed By: #### B MP, TSH #### [facility] [address] [place] [address] Dr. Reema Mireles MCHC (RBC) [Mass/Vol] 34.4 g/dL Normal 29.9-35.2 [facility] Comment on above: Performed By: #### B MP, TSH #### [facility] [address] [place] [address] Dr. Reema Mireles MCV (RBC) [Entitic vol] 88.4 fL Normal 81.0-99.0 [facility] Comment on above: Performed By: #### B MP, TSH #### [facility] [address] [place] [address] Dr. Reema Mireles MONO # 0.7 103/ul Normal 0.3-0.8 [facility] Comment on above: Performed By: #### B MP, TSH #### [facility] [address] [place] [address] Dr. Reema Mireles Monocytes/100 WBC (Bld) 6.8 % Normal 1.7-12.0 [facility] Comment on above: Performed By: #### B MP, TSH #### [facility] [address] [place] [address] Dr. Reema Mireles NEUT # 7.0 103/ul Critically high 1.4-6.5 [facility] Comment on above: Performed By: #### B MP, TSH #### [facility] [address] [address] [address] Reema Mireles Neutrophils/100 WBC (Bld) 72.5 % Normal 43.0-75.0 [facility] Comment on above: Performed By: #### B MP, TSH #### [facility] [address] [address] [address] Reema Mireles Platelet mean volume (Bld) [Entitic vol] 10.3 fL Normal 9.5-13.5 [facility] Comment on above: Performed By: #### B GURPREET, TSH #### [facility] [address] [address] [address] Reema Mireles PLT 358 103/ul Normal 150-450 [facility] Comment on above: Performed By: #### B GURPREET, TSH #### [facility] [address] [place] [address] Dr. Reema Mireles RBC 4.21 106/ul Normal 4.20-5.40 [facility] Comment on above: Performed By: #### B GURPREET, TSH #### [facility] [address] [address] [address] Reema Mireles WBC 9.7 103/ul Normal 4.0-11.0 [facility] Comment on above: Performed By: #### B GURPREET, TSH #### [facility] [address] [address] [address] Reema Mireles CULTURE BLOODon 04-09-2022 Microscopic examination of blood, culture Culture Observations: NO GROWTH AT 5 DAYS. Normal [facility] Comment on above: Performed By: #### B MP, TSH #### [facility] [address] [address] [address] Reema Mireles ER URINE PROFILEon 2 Bilirubin Ql (U) Negative Normal NEGATIVE [facility] Comment on above: Performed By: #### B MP, TSH #### [facility] [address] [address] [address] Reema Mireles Clarity (U) CLEAR Normal CLEAR [facility] Comment on above: Performed By: #### B MP, TSH #### [facility] [address] [place] [address] Dr. Reema Mireles Color (U) LT. YELLOW Normal YELLOW [facility] Comment on above: Performed By: #### B MP, TSH #### [facility] [address] [place] [address] Dr. Reema Mireles ERUAHJohana A micrscopic examination will be performed if indicated. Normal [facility] Comment on above: Performed By: #### B MP, TSH #### [facility] [address] [place] [address] Dr. Reema Mireles Glucose Ql (U) Negative Normal NEGATIVE [facility] Comment on above: Performed By: #### B MP, TSH #### [facility] [address] [place] [address] Dr. Reema Mireles Hemoglobin Ql (U) TRACE-INTACT Abnormal NEGATIVE [facility] Comment on above: Performed By: #### B MP, TSH #### [facility] [address] [place] [address] Dr. Reema Mireles Ketones Ql (U) Negative Normal NEGATIVE [facility] Comment on above: Performed By: #### B MP, TSH #### [facility] [address] [place] [address] Dr. Reema Mireles LEUKOCYTES Negative Normal NEGATIVE [facility] Comment on above: Performed By: #### B MP, TSH #### [facility] [address] [place] [address] Dr. Reema Mireles Nitrite Ql (U) Negative Normal NEGATIVE [facility] Comment on above: Performed By: #### B MP, TSH #### [facility] [address] [place] [address] Dr. Reema Mireles pH (U) 5.5 [pH] Normal 5-9 [facility] Comment on above: Performed By: #### B MP, TSH #### [facility] [address] [place] [address] Dr. Reema Mireles SPEC GRAVITY <=1.005 Abnormal 1.005-<=1.[address] [facility] Comment on above: Performed By: #### B MP, TSH #### [facility] [address] [address] [address] Reema Mireles UA PROTEIN Negative Normal NEGATIVE/ TRACE [facility] Comment on above: Performed By: #### B MP, TSH #### [facility] [address] [address] [address] Reema Mireles UR MICRO IND INDICATED Normal [facility] Comment on above: Performed By: #### B MP, TSH #### [facility] [address] [place] [address] Dr. Reema Mireles Urobilinogen Qn (U) 0.2 {Renny'U}/dL Normal 0.2 - 1. 0 [facility] Comment on above: Performed By: #### B MP, TSH #### [facility] [address] [place] [address] Dr. Reema Mireles LACTATE/LACTIC ACIDon 2021 Lactate [Moles/Vol] 2.2 mmol/L Critically high 0.4-1.9 [facility] Comment on above: Performed By: #### B MP, TSH #### [facility] [address] [place] [address] Dr. Reema Mireles URon 04-09-2022 , QUAL Negative Normal NEGATIVE [facility] Comment on above: Performed By: #### B MP, TSH #### [facility] [address] [place] [address] Dr. Reema Mireles PROF 14(COMP METB)on 022 Albumin [Mass/Vol] 4.5 g/dL Normal 3.4-5.0 [facility] Comment on above: Performed By: #### C MP #### [facility] [address] [place] [address] Dr. Reema Mireles Albumin/Globulin [Mass ratio] 1.3 {ratio} Normal [facility] Comment on above: Performed By: #### C MP #### [facility] [address] [address] [address] Reema Mireles ALP [Catalytic activity/Vol] 83 U/L Normal 46-116 [facility] Comment on above: Performed By: #### C MP #### [facility] [address] [address] [address] Reema Mireles ALT [Catalytic activity/Vol] 26 U/L Normal 14-59 [facility] Comment on above: Performed By: #### C MP #### [facility] [address] [address] [address] Reema Mireles Anion gap [Moles/Vol] 14.9 mmol/L Normal [facility] Comment on above: Performed By: #### C MP #### [facility] [address] [address] [address] Reema Mireles AST [Catalytic activity/Vol] 12 U/L Critically low 15-37 [facility] Comment on above: Performed By: #### C MP #### [facility] [address] [address] [address] Reema Mireles Bilirubin [Mass/Vol] 0.3 mg/dL Normal 0.2-1.0 [facility] Comment on above: Performed By: #### C MP #### [facility] [address] [address] [address] Reema Mireles Calcium [Mass/Vol] 9.6 mg/dL Normal 8.5-10.1 [facility] Comment on above: Performed By: #### C MP #### [facility] [address] [address] [address] Reema Mireles Chloride [Moles/Vol] 103 mmol/L Normal 98-107 [facility] Comment on above: Performed By: #### C MP #### [facility] [address] [address] [address] Reema Mireles CO2 [Moles/Vol] 24.4 mmol/L Normal 21.0-32.0 [facility] Comment on above: Performed By: #### C MP #### [facility] [address] [address] [address] Reema Mireles Creatinine [Mass/Vol] 0.87 mg/dL Normal 0.55-1.02 [facility] Comment on above: Performed By: #### C MP #### [facility] [address] [address] [address] Reema Mireles EGFR-AF VINCENTIAN >60 Normal >=[address] [facility] Comment on above: Performed By: #### C MP #### [facility] [address] [address] [address] Reema Mireles EGFR-NON AF VINCENTIAN >60 Normal >=60 [facility] Comment on above: Performed By: #### C MP #### [facility] [address] [address] [address] Reema Mireles Globulin (S) [Mass/Vol] 3.5 g/dL Normal [facility] Comment on above: Performed By: #### C MP #### [facility] [address] [address] [address] Reema Mireles Glucose [Mass/Vol] 109 mg/dL Critically high 74-106 [facility] Comment on above: Performed By: #### C MP #### [facility] [address] [address] [address] Reema Mireles Potassium [Moles/Vol] 3.3 mmol/L Critically low 3.5-5.1 [facility] Comment on above: Performed By: #### C MP #### [facility] [address] [address] [address] Reema Mireles Protein [Mass/Vol] 8.0 g/dL Normal 6.4-8.2 [facility] Comment on above: Performed By: #### C MP #### [facility] [address] [address] [address] Reema Mireles Sodium [Moles/Vol] 139 mmol/L Normal 136-145 [facility] Comment on above: Performed By: #### C MP #### [facility] [address] [address] [address] Reema Mireles Urea nitrogen [Mass/Vol] 9.0 mg/dL Normal 7.0-18.0 [facility] Comment on above: Performed By: #### C MP #### [facility] [address] [address] [address] Reema Mireles Urea nitrogen/Creatinine [Mass ratio] 10.3 mg/mg Normal [facility] Comment on above: Performed By: #### C MP #### [facility] [address] [place] [address] Dr. Reema Mireles URINE MICROSCOPIC ONLYon BACTERIA NONE SEEN Normal NONE SEEN [facility] Comment on above: Performed By: #### B MP, TSH #### [facility] [address] [place] [address] Dr. Reema Mireles Bacteria identified Cx Nom (U) NOT INDICATED Normal [facility] Comment on above: Performed By: #### B MP, TSH #### [facility] [address] [place] [address] Dr. Reema Mireles CAST NONE SEEN Normal NONE SEEN [facility] Comment on above: Performed By: #### B MP, TSH #### [facility] [address] [place] [address] Dr. Reema Mireles Crystals LM Nom (Urine sed) NONE SEEN Normal NONE SEEN [facility] Comment on above: Performed By: #### B MP, TSH #### [facility] [address] [place] [address] Dr. Reema Mireles Epithelial cells LM Ql (Urine sed) RARE Normal NONE SEEN /RARE [facility] Comment on above: Performed By: #### B MP, TSH #### [facility] [address] [place] [address] Dr. Reema Mireles MUCOUS NONE SEEN Normal NONE SEEN [facility] Comment on above: Performed By: #### B MP, TSH #### [facility] [address] [place] [address] Dr. Reema Mireles RBC 0-2 Normal 0-2 [facility] Comment on above: Performed By: #### B MP, TSH #### [facility] [address] [place] [address] Dr. Reema Mireles WBC NONE SEEN Normal NONE SEEN [facility] Comment on above: Performed By: #### B MP, TSH #### [facility] [address] [place] [address] Dr. Reema Mireles CBC AUTO DIFFon 10-25-2021 BASO # 0.0 103/ul Normal 0.0-0.1 [facility] Comment on above: Performed By: #### C BC #### [facility] [address] [place] [address] Dr. Reema Mireles Basophils/100 WBC (Bld) 0.6 % Normal 0.2-2.0 [facility] Comment on above: Performed By: #### C BC #### [facility] [address] [place] [address] Dr. Reema Mireles EO # 0.1 103/ul Normal 0.0-0.7 [facility] Comment on above: Performed By: #### C BC #### [facility] [address] [place] [address] Dr. Reema Mireles Eosinophils/100 WBC (Bld) 1.8 % Normal 0.9-7.0 [facility] Comment on above: Performed By: #### C BC #### [facility] [address] [place] [address] Dr. Reema Mireles Erythrocyte distribution width (RBC) [Ratio] 11.9 % Normal 11.0-15.0 [facility] Comment on above: Performed By: #### C BC #### [facility] [address] [place] [address] Dr. Reema Mireles Hematocrit (Bld) [Volume fraction] 38.1 % Normal 36.0-48.0 [facility] Comment on above: Performed By: #### C BC #### [facility] [address] [place] [address] Dr. Reema Mireles Hemoglobin (Bld) [Mass/Vol] 13.1 g/dL Normal 12.0-16.0 [facility] Comment on above: Performed By: #### C BC #### [facility] [address] [place] [address] Dr. Reema Mireles IG # 0.01 10e3/ul Normal 0.00-0.03 [facility] Comment on above: Performed By: #### C BC #### [facility] [address] [place] [address] Dr. Reema Mireles IG % 0.1 % Normal 0.0-0.5 [facility] Comment on above: Performed By: #### C BC #### [facility] [address] [place] [address] Dr. Reema Mireles LYMPH # 1.9 103/ul Normal 1.2-3.8 [facility] Comment on above: Performed By: #### C BC #### [facility] [address] [place] [address] Dr. Reema Mireles Lymphocytes/100 WBC (Bld) 27.8 % Normal 20.5-60.0 [facility] Comment on above: Performed By: #### C BC #### [facility] [address] [place] [address] Dr. Reema Mireles MANUAL DIFF REQ NO Normal [facility] Comment on above: Performed By: #### C BC #### [facility] [address] [place] [address] Dr. Reema Mireles MCH (RBC) [Entitic mass] 30.5 pg Normal 26.7-34.0 [facility] Comment on above: Performed By: #### C BC #### [facility] [address] [place] [address] Dr. Reema Mireles MCHC (RBC) [Mass/Vol] 34.4 g/dL Normal 29.9-35.2 [facility] Comment on above: Performed By: #### C BC #### [facility] [address] [place] [address] Dr. Reema Mireles MCV (RBC) [Entitic vol] 88.8 fL Normal 81.0-99.0 [facility] Comment on above: Performed By: #### C BC #### [facility] [address] [place] [address] Dr. Reema Mireles MONO # 0.8 103/ul Normal 0.3-0.8 [facility] Comment on above: Performed By: #### C BC #### [facility] [address] [place] [address] Dr. Reema Mireles Monocytes/100 WBC (Bld) 11.2 % Normal 1.7-12.0 [facility] Comment on above: Performed By: #### C BC #### [facility] [address] [place] [address] Dr. Reema Mireles NEUT # 4.0 103/ul Normal 1.4-6.5 [facility] Comment on above: Performed By: #### C BC #### [facility] [address] [place] [address] Dr. Reema Mireles Neutrophils/100 WBC (Bld) 58.5 % Normal 43.0-75.0 [facility] Comment on above: Performed By: #### C BC #### [facility] [address] [place] [address] Dr. Reema Mireles Platelet mean volume (Bld) [Entitic vol] 10.0 fL Normal 9.5-13.5 [facility] Comment on above: Performed By: #### C BC #### [facility] [address] [place] [address] Dr. Reema Mireles PLT 361 103/ul Normal 150-450 [facility] Comment on above: Performed By: #### C BC #### [facility] [address] [place] [address] Dr. Reema Mireles RBC 4.29 106/ul Normal 4.20-5.40 [facility] Comment on above: Performed By: #### C BC #### [facility] [address] [place] [address] Dr. Reema Mireles WBC 6.8 103/ul Normal 4.0-11.0 [facility] Comment on above: Performed By: #### C BC #### [facility] [address] [place] [address] Dr. Reema Mireles PREG QUANT HCGon 10-25-2021 HCG QUANT 1 mIU/mL Normal [facility] Comment on above: Performed By: #### P REGQNT #### [facility] [address] [place] [address] Dr. Reema Mireles HCG RANGE SEE BELOW Normal [facility] Comment on above: Result Comment: 5-50 0-1 WEEK 40-300 1-2 WEEKS 100-1,000 2-3 WEEKS 500-6,000 3-4 WEEKS 5,000-200,000 1-2 MONTHS 10,000-100,000 2-3 MONTHS 3,000-50,000 2ND TRIMESTER 1,000-50,000 3RD TRIMESTER Performed By: #### P REGQNT #### [facility] [address] [address] [address] Reema Mireles Covid-19 PCR ([facility])on 09-29 SARS-CoV-2 (COVID-19) RNA FRANKIE+probe Ql (Unsp spec) Not detected Normal NOT DETECTED [facility] Comment on above: Result Comment: This test is not yet approved or cleared by the [place] FDA. When there are no FDA-approved or cleared tests available, and other criteria are met, FDA can make tests available under an emergency access mechanism called an Emergency Use Authorization (EUA). The EUA for this test is supported by the Cardiology Manager of Health and Human Service's (HHS's) declaration [...] SARS-CoV-2. Performed By: #### C VDTB #### [facility] [address] [place], [place] [address] Dr. Reema Mireles Vital Signs Date Time Vital Sign Value Performing Clinician Facility 11-12-2023 14:15-0500 Body weight 108.86 kg [employer] Work Phone: [facility] 11-12-2023 14:15-0500 Diastolic blood pressure 72 mm[Hg] [employer] Work Phone: [facility] 11-12-2023 14:15-0500 Systolic blood pressure 122 mm[Hg] Devan Tello DO Work Phone: [facility] 04-12-2022 21:04-0400 Diastolic blood pressure 84 mm[Hg] [facility] 04-12-2022 21:04-0400 Heart rate 82 /min [facility] 04-12-2022 21:04-0400 Respiratory rate 16 /min [facility] 04-12-2022 21:04-0400 SaO2% (BldA) [Mass fraction] 98 % [facility] 04-12-2022 21:04-0400 Systolic blood pressure 120 mm[Hg] [facility] 04-12-2022 20:32-0400 gluc 80 mg/dL [facility] Comment on above: Result Comment: not taken due to pt refu jimmie of any injection 04-12-2022 20:32-0400 gluc [facility] 04-12-2022 19:25-0400 Body temperature 99.32 [degF] [facility] 04-12-2022 19:25-0400 Diastolic blood pressure 84 mm[Hg] [facility] 04-12-2022 19:25-0400 Heart rate 90 /min [facility] 04-12-2022 19:25-0400 Respiratory rate 18 /min [facility] 04-12-2022 19:25-0400 SaO2% (BldA) [Mass fraction] 98 % [facility] 04-12-2022 19:25-0400 Systolic blood pressure 118 mm[Hg] [facility] 04-09-2022 12:20-0400 Body height 165.1 cm Deonna Back Other [facility] Other 04-09-2022 12:20-0400 Body mass index (BMI) [Ratio] 35.61 kg/m2 Deonna Nazanin Other [facility] Other 04-09-2022 12:20-0400 Body temperature 98.4 [degF] Deonna Nazanin Other [facility] Other 04-09-2022 12:20-0400 Body weight 97.07 kg Deonna Nazanin Other [facility] Other 04-09-2022 12:20-0400 Diastolic blood pressure 83 mm[Hg] Deonna Nazanin Other [facility] Other 04-09-2022 12:20-0400 Respiratory rate 18 /min Deonna Nazanin Other [facility] Other 04-09-2022 12:20-0400 SaO2% (BldA) [Mass fraction] 99 % Deonna Nazanin Other [facility] Other 04-09-2022 12:20-0400 Systolic blood pressure 135 mm[Hg] Deonna Nazanin Other [facility] Other 04-02-2022 19:00-0400 Body height 165.1 cm Deonna Nazanin Other [facility] Other 04-02-2022 19:00-0400 Body mass index (BMI) [Ratio] 35.71 kg/m2 Deonna Nazanin Other [facility] Other 04-02-2022 19:00-0400 Body temperature 98.1 [degF] Deonna Nazanin Other [facility] Other 04-02-2022 19:00-0400 Body weight 97.34 kg Deonna Back Other [facility] Other 04-02-2022 19:00-0400 Diastolic blood pressure 83 mm[Hg] Deonna Back Other [facility] Other 04-02-2022 19:00-0400 Respiratory rate 18 /min Deonna Back Other [facility] Other 04-02-2022 19:00-0400 SaO2% (BldA) [Mass fraction] 100 % Deonna Back Other [facility] Other 04-02-2022 19:00-0400 Systolic blood pressure 134 mm[Hg] Deonna Back Other [facility] Other Encounters Encounter Date Encounter Type Care [...] 04-12-2022 Emergency department patient visit Lata Hardy [facility] Start: 04-10-2022 End: 04-10-2022 ambulatory Deonna Back Other [facility] Other Start: 04-10-2022 Telephone encounter Deonna Back [facility] Start: 04-09-2022 End: 04-09-2022 ambulatory Deonna Back Other [facility] Other Start: 04-09-2022 Office outpatient vi sit 15 minutes Deonna Back [facility] Start: 04-09-2022 End: 04-09-[address] LUIS ANTONIO SUTTON Facility:[facility] Start: 04-02-2022 (URG) Urgent Care Visit Deonna Silva d [facility] Start: 04-02-2022 End: 04-02-2022 ambulatory Deonna Back Other [facility] Other Start: 10-25-2021 End: 10-25-[address] ADRYAN MARIE Facility:[facility] Start: 10-24-2021 Encounter for preprocedural laboratory examination DR DEVAN TELLO [facility] Start: 10-22-2021 End: 10-23-[address] ADRYAN MARIE Facility:[facility] Start: 10-22-2021 End: 10-23-2021 Encounter for preprocedural laboratory examination DR ADRYAN MARIE Facility:[facility] Start: 10-19-2021 Encounter for other preprocedural examination DR DEVAN TELLO [facility] Start: 10-17-2021 End: 10-18-2021 ambulatory [...] Routine [facility] [address] [place] [address] Cydney Leos PA [address] [place], [place] [id number] [facility] Start: 11-26-2023 End: 11-26-2023 Professional / ancillary services management 11/26/2023 10:30 AM EST Ancillary Procedure [facility] [address] [place] [address] [facility] Start: 11-12-2023 End: [...] Routine [facility] [address] [id number] Devan Tello, [address] [place] [address] [facility] Payers Date Payer Category Payer Unknown [facility] MEDICAID [id number] 2023-Present [address] [place] [address] [id number] 2023 Medicaid [id number] 2001 Unknown [id number] 2.16.840.1.972827.3.579.2. 593 2001 Unknown [id number] 2.16.840.1.349993.3.579.2. 593 2001 Unknown [id number] 2.16.840.1.677165.3.579.2. 593 2001 Unknown [id number] 2.16.840.1.478191.3.579.2. 593 2001 Unknown [id number] 2.16.840.1.872700.3.579.2. 593 2001 Unknown [id number] 2.16.840.1.152863.3.579.2. 593 2001 Unknown [id number] 2.16.840.1.109446.3.579.2. 593 2001 Unknown [id number] 2.16.840.1.756228.3.579.2. 593 2001 Unknown [id number] 2.16.840.1.873166.3.579.2. 593 2001 Unknown [id number] 2.16.840.1.513140.3.579.2. 593 2001 Unknown [id number] 2.16.840.1.294716.3.579.2. 593 2001 Unknown [id number] 2.16.840.1.095487.3.579.2. 1259 2001 Unknown [id number] 2.16.840.1.892771.3.579.2. 1259 2001 Unknown [id number] 2.16.840.1.780899.3.579.2. 1259 2001 Unknown [id number] 2.16.840.1.688139.3.579.2. 1259 2001 Unknown [id number] 2.16.840.1.957037.3.579.2. 1259 2001 Unknown [id number] 2.16.840.1.471811.3.579.2. 1259 1958 [facility] [id number] 2.16.840.1.683302.19 Social History Date Type Detail Facility Unknown if ever smoked Mobile Theory [facility] Managed by Q Other Sex Assigned At Merged With [facility] Managed by Q Other Tobacco smoking status No Smoking Status Entered [facility] Start: 06-20-2023 Tobacco smoking status CAIS Tobacco smoking consumption unknown [facility] Start: 10-15-2023 Alcohol intake Lifetime non-d hermes (finding) [facility] Start: 06-20-2023 Tobacco Comment Current smoker (frequency unknown) [facility] Start: 05-06-2023 [facility] Start: 2001 Sex Assigned At Not on file [facility] Goals Date Patient Goal Desired Activity /State Personal health goal Functional Status Date Assessment Result Facility 04-12-2022 Functional Status N/A [facility] History of Present illness Narrative 11-12-2023 [...] Devan Tello DO documented in this encounter [facility] Discharge instructions 04-12-2022 Note Date & [...] help with your condition: Managing pain Take fdtg-hca-zwjmayo and prescription medicines only as told by [...] 09/14/2006 Document Revised: 04/04/2019 Document Reviewed: 04/04/2019 [employer] 2020 [employer] 04/12/2022 21:07:38 Vertigo Vertigo Vertigo is [...] if you feel dizzy. General instructions Take qtrf-hnz-gisrfdl and prescription medicines only as told by [...] 06/24/2006 Document Revised: 08/08/2019 Document Reviewed: 08/08/2019 [employer] Patient Education 2020 [employer]. Follow Up Care 04/12/2022 19:25:17 With:ADRYAN MARIE Address: [address] [place], [place] [id number] [facility] (1) When:04/15/2022 20:55:24 Comments:Return to the emergency room if her headache gets worse, vertigo becomes persistent or any new symptoms [facility] Evaluation note 04-09-2022 Note Date & [...] She was prescribed Zofran with no improvement. [facility] Other Evaluation note 04-02-2022 Note Date & [...] 3 days. No swimming for a week [facility] Other Clinical Note 10-25-2021 Note Date & Type Note Facility 10-25-2021 Note OPERATIVE NOTE PROCEDURE: Diagnostic laparoscopy. PREOPERATIVE DIAGNOSIS: Pelvic pain, dyspareunia dysmenorrhea. POSTOPERATIVE DIAGNOSIS: Pelvic pain, dyspareunia dysmenorrhea. ANESTHESIA: General. SURGEON: Devan Tello D.O. EDITORIAL CLERK: JAE Worley URINE OUTPUT: Yellow and clear. [...] taken to Recovery Room in stable condition. [facility] Signed and Approved by: DR DEVNA TELLO . 11/01/2021 17:31:00 [facility] Evaluation + Plan note Note Date & Type Note Facility Evaluation + Plan note No data available for this section [facility] Evaluation note Note Date & Type Note Facility Evaluation note No Information Merged With [facility] [employer] Other Evaluation note Note Date & Type [...] endometriosis Hospitalization History RSV as a baby [facility] Managed by Q Other Progress note Note Date & Type Note Facility Progress note No data available for this section [facility] Summary Purpose Family History No Family History Records FoundNo Family History Records FoundNo Family History Records Found Advance Directives No Advanced Directives Records FoundNo Advanced Directives Records FoundNo Advanced Directives Records Found Additional Source Comments REASON FOR VISIT (unrecogniz ed section and content) Reason Comments Routine Visit Care Team (unrecognized sect ion and content) Proof Clerk Relationship Specialty Start Date End Date Adryan Marie MD [address] [place], [place] [phone] PCP - General Family Medicine 06/19/23 Proof Clerk Relationship Specialty Start Date End Date Adryan Marie MD [address] [place] [address] PCP - General Family Medicine 06/19/23 INFORMATION SOURCE (unrecogn ized section and content) DATE CREATED AUTHOR 04/26/2022 [facility] DATE CREATED AUTHOR AUTHOR'S ORGANIZ ATION 09/19/2022 [facility] DATE CREATED AUTHOR AUTHOR'S ORGANIZ ATION 12/14/2023 [facility] FOR RECORDS PERTAINING TO PATIENTS [...] BE BASED ON THE PRIMARY CLINICAL RECORDS. [facility]. provides no warranty or guarantee of the accuracy or completeness of information in this document.
[2023-12-19 08:04] VITALS: BP 134/76; PULSE 118
--- NOTE | 2023-12-19 08:45 | PC.NURSE ---
pt denies feeling ctxs, instructed to call [facility] if is able to feel timeable ctxs 5 or more in an hour
== END 2023-12-19 08:53 | disposition home or self-care (01) ==
LOC: FBCO 00:15 → FBC 07:54
PROVIDERS: PCP Family Medicine; Visit Provider Obstetrics & Gynecology
DX: O36.63X0 Maternal care for excessive fetal growth, third trimester, not applicable or unspecified (principal)
CPT/HCPCS: 59025

== ENCOUNTER 2023-12-23 07:07 | Outpatient (OUT) | payer OTHER, SELFPAY ==
--- OUTSIDE RECORDS SUMMARY | 2023-12-23 07:12 | XMS_ITS | CCD ---
Author Organization [facility] Care Team Providers Care Instructor Technical Training Name Role Phone Deonna Back Unavailable DEFJAILENE, ADRYAN Primary Care Physician [phone] LESLEY, DR LUIS ANTONIO Jorge Consulting Unavailable [...] Facility (3 sources) Sulfacetamide Drug Allergy rash [employer] Other (1 source) Sulfonamides (Antibiotic); Translations: [sulfa drugs] Drug allergy Hyperpyrexia (finding) [facility] (1 source) Sulfonamides (Antibiotic) Drug allergy (disorder) 07-26-20 14 [facility] Repository (3 sources) Sulfonamides (Antibiotic) Drug Intolerance [...] BY MOUTH EVERY MORNING 0 10/06/2023 Active IK-Yiz-XA-May-3 ( Gummies/DHA & FA) 0.4-32.5 MG chewable tablet (3 sources) Start: 06-19-2023 End: 06-18-2024 WD-Bxd-MV-May-3 ( Gummies/DHA & FA) 0.4-32.5 MG chewable tablet Indications: Missed menses Chew 32.5 mg in the morning. 30 tablet 11 06/19/2023 06/18/2024 Active Completed/Discontinued Medications Medication Drug Class(es) Dates Sig (Normalized) Sig (Original) [id number] 200 actuat albuterol 0.09 mg/actuat metered dose [...] / neomycin 3.5 mg/ml / polymyxin b 28667 unt/ml otic suspension (3 sources) Aminoglycoside Antibacterial, Polymyxin-class Antibacterial, Corticosteroid Start: 04-02-2022 Neomycin-Polymyx in-HC 3.5-58781-4 3 drops left ear Three times a [...] UA Negative Negative - 4(70) +++ mg/dL [facility] Blood, UA Negative Negative - 50 Cedric/mcL [facility] Clarity, UA Clear [facility] re Color, UA Yellow [facility] Glucose, UA Negative Negative - 1999(110) ++++ mg/dL [facility] Interpretation and review of laboratory results Normal [facility] Ketones, UA Negative Negative - 160(16) ++++ mg/dL [facility] Leukocytes, UA Negative Negative - 500+++ Alessandro/mcL [facility] Nitrite, UA Negative Negative - Positive [facility] pH, UA 6.0 5 - 9 [facility] e Protein, UA Negative Negative - 1999(20) ++++ mg/dL [facility] Spec Grav, UA 1.020 1 - 1.03 [facility] Urobilinogen, UA 0.2 0.2 - 12 mg/dL [facility] Health[facility] e ALL CBC WITH AUTO DIFFon BASOPHILS ABSOLUTE AUTO 0.0 [facility] Basophils/100 WBC (Bld) 0.3 % 0.2 - 2.0 % [facility] Eosinophils/100 WBC (Bld) 1.0 % 0.9 - 7.0 % [facility] Erythrocyte distribution width (RBC) [Ratio] 12.5 % 11.0 - 15.0 % [facility] Hematocrit (Bld) [Volume fraction] 35.1 % Low 36.0 - 48.0 % [facility] Hemoglobin (Bld) [Mass/Vol] 11.7 g/dL Low 12.0 - 16.0 g/dL [facility] IMMATURE GRANULOCYTES ABS AUTO 0.08 High [facility] Immature granulocytes/100 WBC (Bld) 0.6 % High 0.0 - 0.5 % [facility] Interpretation and review of laboratory results Abnormal [facility] LYMPHOCYTES ABSOLUTE AUTO 1.6 [facility] Lymphocytes/100 WBC (Bld) 11.9 % Low 20.5 - 60.0 % [facility] MCH (RBC) [Entitic mass] 30.7 pg 26.7 - 34.0 pg [facility] MCHC (RBC) [Mass/Vol] 33.3 g/dL 29.9 - 35.2 g/dL [facility] MCV (RBC) [Entitic vol] 92.1 fL 81.0 - 99.0 fL [facility] MONOCYTES ABSOLUTE AUTO 0.8 [facility] Monocytes/100 WBC (Bld) 5.5 % 1.7 - 12.0 % [facility] NEUTROPHILS ABSOLUTE AUTO 11.1 High [facility] Neutrophils/100 WBC (Bld) 80.7 % High 43.0 - 75.0 % [facility] Platelet mean volume (Bld) [Entitic vol] 10.6 fL 9.5 - 13.5 fL [facility] are [facility]H EO # 0.1 [facility] e TBH PLT 292 [facility] RBC 3.81 Low [facility] TBH WBC 13.8 High [facility] CBC AUTO DIFFon 09-14-2022 BASO # 0.0 103/ul Normal 0.0-0.1 [facility] Comment on above: Performed By: #### B GURPREET, TSH #### [facility] [address] [place] [address] Dr. Reema Mireles Basophils/100 WBC (Bld) 0.6 % Normal 0.2-2.0 [facility] Comment on above: Performed By: #### B GURPREET, TSH #### [facility] [address] [place] [address] Dr. Reema Mireles EO # 0.0 103/ul Normal 0.0-0.7 [facility] Comment on above: Performed By: #### B GURPREET, TSH #### [facility] [address] [place] [address] Dr. Reema Mireles Eosinophils/100 WBC (Bld) 0.6 % Critically low 0.9-7.0 [facility] Comment on above: Performed By: #### B GURPREET, TSH #### [facility] [address] [place] [address] Dr. Reema Mireles Erythrocyte distribution width (RBC) [Ratio] 11.9 % Normal 11.0-15.0 [facility] Comment on above: Performed By: #### B GURPREET, TSH #### [facility] [address] [place] [address] Dr. Reema Mireles Hematocrit (Bld) [Volume fraction] 37.8 % Normal 36.0-48.0 [facility] Comment on above: Performed By: #### Inna VÁZQUEZ, TSH #### [facility] [address] [place] [address] Dr. Reema Mireles Hemoglobin (Bld) [Mass/Vol] 13.5 g/dL Normal 12.0-16.0 [facility] Comment on above: Performed By: #### Inna VÁZQUEZ, TSH #### [facility] [address] [place] [address] Dr. Reema Mireles IG # 0.01 10e3/ul Normal 0.00-0.03 [facility] Comment on above: Performed By: #### Inna VÁZQUEZ, TSH #### [facility] [address] [place] [address] Dr. Reema Mireles IG % 0.2 % Normal 0.0-0.5 [facility] Comment on above: Performed By: #### B GURPREET, TSH #### [facility] [address] [place] [address] Dr. Reema Mireles LYMPH # 1.6 103/ul Normal 1.2-3.8 [facility] Comment on above: Performed By: #### B GURPREET, TSH #### [facility] [address] [place] [address] Dr. Reema Mireles Lymphocytes/100 WBC (Bld) 25.5 % Normal 20.5-60.0 [facility] Comment on above: Performed By: #### Inna VÁZQUEZ, TSH #### [facility] [address] [place] [address] Dr. Reema Mireles MANUAL DIFF REQ NO Normal [facility] Comment on above: Performed By: #### B MP, TSH #### [facility] [address] [place] [address] Dr. Reema Mireles MCH (RBC) [Entitic mass] 30.9 pg Normal 26.7-34.0 [facility] Comment on above: Performed By: #### B MP, TSH #### [facility] [address] [place] [address] Dr. Reema Mireles MCHC (RBC) [Mass/Vol] 35.7 g/dL Critically high 29.9-35.2 [facility] Comment on above: Performed By: #### B GURPREET, TSH #### [facility] [address] [place] [address] Dr. Reema Mireles MCV (RBC) [Entitic vol] 86.5 fL Normal 81.0-99.0 [facility] Comment on above: Performed By: #### B GURPREET, TSH #### [facility] [address] [place] [address] Dr. Reema Mireles MONO # 0.5 103/ul Normal 0.3-0.8 [facility] Comment on above: Performed By: #### B GURPREET, TSH #### [facility] [address] [place] [address] Dr. Reema Mireles Monocytes/100 WBC (Bld) 8.5 % Normal 1.7-12.0 [facility] Comment on above: Performed By: #### B GURPREET, TSH #### [facility] [address] [place] [address] Dr. Reema Mireles NEUT # 4.1 103/ul Normal 1.4-6.5 [facility] Comment on above: Performed By: #### B MP, TSH #### [facility] [address] [place] [address] Dr. Reema Mireles Neutrophils/100 WBC (Bld) 64.6 % Normal 43.0-75.0 [facility] Comment on above: Performed By: #### B GURPREET, TSH #### [facility] [address] [place] [address] Dr. Reema Mireles Platelet mean volume (Bld) [Entitic vol] 9.9 fL Normal 9.5-13.5 [facility] Comment on above: Performed By: #### B MP, TSH #### [facility] [address] [place] [address] Dr. Reema Mireles PLT 403 103/ul Normal 150-450 [facility] Comment on above: Performed By: #### B MP, TSH #### [facility] [address] [place] [address] Dr. Reema Mireles RBC 4.37 106/ul Normal 4.20-5.40 [facility] Comment on above: Performed By: #### B MP, TSH #### [facility] [address] [place] [address] Dr. Reema Mireles WBC 6.3 103/ul Normal 4.0-11.0 [facility] Comment on above: Performed By: #### B MP, TSH #### [facility] [address] [place] [address] Dr. Reema Mireles PROF 14(COMP METB)on 022 Albumin [Mass/Vol] 4.3 g/dL Normal 3.4-5.0 [facility] Comment on above: Performed By: #### B MP, TSH #### [facility] [address] [place] [address] Dr. Reema Mireles Albumin/Globulin [Mass ratio] 1.2 {ratio} Normal [facility] Comment on above: Performed By: #### B MP, TSH #### [facility] [address] [place] [address] Dr. Reema Mireles ALP [Catalytic activity/Vol] 79 U/L Normal 46-116 [facility] Comment on above: Performed By: #### B MP, TSH #### [facility] [address] [place] [address] Dr. Reema Mireles ALT [Catalytic activity/Vol] 31 U/L Normal 14-59 [facility] Comment on above: Performed By: #### B MP, TSH #### [facility] [address] [address] [address] Reema Mireles Anion gap [Moles/Vol] 12.1 mmol/L Normal [facility] Comment on above: Performed By: #### B MP, TSH #### [facility] [address] [place] [address] Dr. Reema Mireles AST [Catalytic activity/Vol] 17 U/L Normal 15-37 [facility] Comment on above: Performed By: #### B MP, TSH #### [facility] [address] [place] [address] Dr. Reema Mireles Bilirubin [Mass/Vol] 0.4 mg/dL Normal 0.2-1.0 [facility] Comment on above: Performed By: #### B GURPREET, TSH #### [facility] [address] [place] [address] Dr. Reema Mireles Calcium [Mass/Vol] 8.9 mg/dL Normal 8.5-10.1 [facility] Comment on above: Performed By: #### B GURPREET, TSH #### [facility] [address] [place] [address] Dr. Reema Mireles Chloride [Moles/Vol] 98 mmol/L Normal 98-107 [facility] Comment on above: Performed By: #### B GURPREET, TSH #### [facility] [address] [place] [address] Dr. Reema Mireles CO2 [Moles/Vol] 27.0 mmol/L Normal 21.0-32.[address] [facility] Comment on above: Performed By: #### B GURPREET, TSH #### [facility] [address] [place] [address] Dr. Reema Mireles Creatinine [Mass/Vol] 0.65 mg/dL Normal 0.55-1.02 [facility] Comment on above: Performed By: #### B GURPREET, TSH #### [facility] [address] [place] [address] Dr. Reema Mireles EGFR-AF KENYAN >60 Normal >=[address] [facility] Comment on above: Performed By: #### B GURPREET, TSH #### [facility] [address] [address] [address] Reema Mireles EGFR-NON AF KENYAN >60 Normal >=60 [facility] Comment on above: Performed By: #### B GURPREET, TSH #### [facility] [address] [address] [address] Reema Mireles Globulin (S) [Mass/Vol] 3.5 g/dL Normal [facility] Comment on above: Performed By: #### B GURPREET, TSH #### [facility] [address] [address] [address] Reema Mireles Glucose [Mass/Vol] 106 mg/dL Normal 74-106 [facility] Comment on above: Performed By: #### B GURPREET, TSH #### [facility] [address] [address] [address] Reema Mireles Potassium [Moles/Vol] 3.1 mmol/L Critically low 3.5-5.1 [facility] Comment on above: Performed By: #### B GURPREET, TSH #### [facility] [address] [place] [address] Dr. Reema Mireles Protein [Mass/Vol] 7.8 g/dL Normal 6.4-8.2 The [facility] Comment on above: Performed By: #### B GURPREET, TSH #### [facility] [address] [place] [address] Dr. Reema Mireles Sodium [Moles/Vol] 134 mmol/L Critically low 136-145 [facility] Comment on above: Performed By: #### B GURPREET, TSH #### [facility] [address] [place] [address] Dr. Reema Mireles Urea nitrogen [Mass/Vol] 6.0 mg/dL Critically low 7.0-18.0 [facility] Comment on above: Performed By: #### B GURPREET, TSH #### [facility] [address] [place] [address] Dr. Reema Mireles Urea nitrogen/Creatinine [Mass ratio] 9.2 mg/mg Normal [facility] Comment on above: Performed By: #### B GURPREET, TSH #### [facility] [address] [place] [address] Dr. Reema Mireles ACETONE SERUMon 08-11-2022 ACETONE Negative Normal NEGATIVE [facility] Comment on above: Performed By: #### B MP, TSH #### [facility] [address] [place] [address] Dr. Reema Mireles CBC AUTO DIFFon 08-11-2022 BASO # 0.1 103/ul Normal 0.0-0.1 [facility] Comment on above: Performed By: #### B MP, TSH #### [facility] [address] [place] [address] Dr. Reema Mireles Basophils/100 WBC (Bld) 0.5 % Normal 0.2-2.0 [facility] Comment on above: Performed By: #### B GURPREET, TSH #### [facility] [address] [place] [address] Dr. Reema Mireles EO # 0.1 103/ul Normal 0.0-0.7 [facility] Comment on above: Performed By: #### B GURPREET, TSH #### [facility] [address] [place] [address] Dr. Reema Mireles Eosinophils/100 WBC (Bld) 0.7 % Critically low 0.9-7.0 [facility] Comment on above: Performed By: #### B GURPREET, TSH #### [facility] [address] [place] [address] Dr. Reema Mireles Erythrocyte distribution width (RBC) [Ratio] 11.7 % Normal 11.0-15.0 [facility] Comment on above: Performed By: #### B GURPREET, TSH #### [facility] [address] [place] [address] Dr. Reema Mireles Hematocrit (Bld) [Volume fraction] 37.6 % Normal 36.0-48.0 [facility] Comment on above: Performed By: #### B GURPREET, TSH #### [facility] [address] [place] [address] Dr. Reema Mireles Hemoglobin (Bld) [Mass/Vol] 13.1 g/dL Normal 12.0-16.0 [facility] Comment on above: Performed By: #### B MP, TSH #### [facility] [address] [place] [address] Dr. Reema Mireles IG # 0.02 10e3/ul Normal 0.00-0.03 [facility] Comment on above: Performed By: #### B MP, TSH #### [facility] [address] [place] [address] Dr. Reema Mireles IG % 0.2 % Normal 0.0-0.5 [facility] Comment on above: Performed By: #### B MP, TSH #### [facility] [address] [place] [address] Dr. Reema Mireles LYMPH # 2.7 103/ul Normal 1.2-3.8 [facility] Comment on above: Performed By: #### B MP, TSH #### [facility] [address] [place] [address] Dr. Reema Mireles Lymphocytes/100 WBC (Bld) 28.5 % Normal 20.5-60.0 [facility] Comment on above: Performed By: #### B MP, TSH #### [facility] [address] [place] [address] Dr. Reema Mireles MANUAL DIFF REQ NO Normal [facility] Comment on above: Performed By: #### B MP, TSH #### [facility] [address] [place] [address] Dr. Reema Mireles MCH (RBC) [Entitic mass] 30.3 pg Normal 26.7-34.0 [facility] Comment on above: Performed By: #### B MP, TSH #### [facility] [address] [place] [address] Dr. Reema Mireles MCHC (RBC) [Mass/Vol] 34.8 g/dL Normal 29.9-35.2 [facility] Comment on above: Performed By: #### B MP, TSH #### [facility] [address] [place] [address] Dr. Reema Mireles MCV (RBC) [Entitic vol] 87.0 fL Normal 81.0-99.0 [facility] Comment on above: Performed By: #### B MP, TSH #### [facility] [address] [address] [address] Reema Mireles MONO # 0.8 103/ul Normal 0.3-0.8 [facility] Comment on above: Performed By: #### B MP, TSH #### [facility] [address] [place] [address] Dr. Reema Mireles Monocytes/100 WBC (Bld) 8.2 % Normal 1.7-12.0 [facility] Comment on above: Performed By: #### B MP, TSH #### [facility] [address] [place] [address] Dr. Reema Mireles NEUT # 5.9 103/ul Normal 1.4-6.5 [facility] Comment on above: Performed By: #### B MP, TSH #### [facility] [address] [place] [address] Dr. Reema Mireles Neutrophils/100 WBC (Bld) 61.9 % Normal 43.0-75.0 [facility] Comment on above: Performed By: #### B MP, TSH #### [facility] [address] [place] [address] Dr. Reema Mireles Platelet mean volume (Bld) [Entitic vol] 10.2 fL Normal 9.5-13.5 [facility] Comment on above: Performed By: #### B MP, TSH #### [facility] [address] [place] [address] Dr. Reema Mireles PLT 382 103/ul Normal 150-450 [facility] Comment on above: Performed By: #### B MP, TSH #### [facility] [address] [place] [address] Dr. Reema Mireles RBC 4.32 106/ul Normal 4.20-5.40 [facility] Comment on above: Performed By: #### B MP, TSH #### [facility] [address] [place] [address] Dr. Reema Mireles WBC 9.6 103/ul Normal 4.0-11.0 [facility] Comment on above: Performed By: #### B MP, TSH #### [facility] [address] [place] [address] Dr. Reema Mireles CRPon 08-11-2022 CRP [Mass/Vol] mg/L Normal <=1.0 [facility] Comment on above: Performed By: #### B MP, TSH #### [facility] [address] [place] [address] Dr. Reema Mireles ER URINE PROFILEon Bilirubin Ql (U) Negative Normal NEGATIVE [facility] Comment on above: Performed By: #### B MP, TSH #### [facility] [address] [place] [address] Dr. Reema Mireles Clarity (U) CLEAR Normal CLEAR [facility] Comment on above: Performed By: #### B MP, TSH #### [facility] [address] [place] [address] Dr. Reema Mireles Color (U) LT. YELLOW Normal YELLOW [facility] Comment on above: Performed By: #### B MP, TSH #### [facility] [address] [place] [address] Dr. Reema RICHARDSONJohana A micrscopic examination will be performed if indicated. Normal [facility] Comment on above: Performed By: #### B MP, TSH #### [facility] [address] [place] [address] Dr. Reema Mireles Glucose Ql (U) Negative Normal NEGATIVE [facility] Comment on above: Performed By: #### B MP, TSH #### [facility] [address] [place] [address] Dr. Reema Mireles Hemoglobin Ql (U) Negative Normal NEGATIVE [facility] Comment on above: Performed By: #### B MP, TSH #### [facility] [address] [place] [address] Dr. Reema Mireles Ketones Ql (U) Negative Normal NEGATIVE [facility] Comment on above: Performed By: #### B MP, TSH #### [facility] [address] [place] [address] Dr. Reema Mireles LEUKOCYTES Negative Normal NEGATIVE [facility] Comment on above: Performed By: #### B MP, TSH #### [facility] [address] [place] [address] Dr. Reema Mireles Nitrite Ql (U) Negative Normal NEGATIVE [facility] Comment on above: Performed By: #### B MP, TSH #### [facility] [address] [place] [address] Dr. Reema Mireles pH (U) 5.5 [pH] Normal 5-9 [facility] Comment on above: Performed By: #### B MP, TSH #### [facility] [address] [place] [address] Dr. Reema Mireles SPEC GRAVITY <=1.005 Abnormal 1.005-<=1.025 [facility] Comment on above: Performed By: #### B MP, TSH #### [facility] [address] [place] [address] Dr. Reema Mireles UA PROTEIN Negative Normal NEGATIVE/ TRACE [facility] Comment on above: Performed By: #### B MP, TSH #### [facility] [address] [place] [address] Dr. Reema Mireles UR MICRO IND NOT INDICATED Normal [facility] Comment on above: Performed By: #### B MP, TSH #### [facility] [address] [place] [address] Dr. Reema Mireles Urobilinogen Qn (U) 0.2 {Renny'U}/dL Normal 0.2 - 1. 0 [facility] Comment on above: Performed By: #### B MP, TSH #### [facility] [facility] [address] [place] [address] Dr. Reema Mireles LIPASEon 08-11-2022 Lipase [Catalytic activity/Vol] 71.0 U/L Critically low 73.0-393.0 [facility] Comment on above: Performed By: #### B MP, TSH #### [facility] [address] [place] [address] Dr. Reema Mireles URon 08-11-2022 , QUAL Negative Normal NEGATIVE [facility] Comment on above: Performed By: #### C VDTBH #### [facility] [address] [address] [address] Reema Mireles PROF 14(COMP METB)on 022 Albumin [Mass/Vol] 4.3 g/dL Normal 3.4-5.0 [facility] Comment on above: Performed By: #### B MP, TSH #### [facility] [address] [address] [address] Reema Mireles Albumin/Globulin [Mass ratio] 1.2 {ratio} Normal [facility] Comment on above: Performed By: #### B MP, TSH #### [facility] [address] [address] [address] Reema Mireles ALP [Catalytic activity/Vol] 70 U/L Normal 46-116 [facility] Comment on above: Performed By: #### B MP, TSH #### [facility] [address] [place] [address] Dr. Reema Mireles ALT [Catalytic activity/Vol] 16 U/L Normal 14-59 [facility] Comment on above: Performed By: #### B MP, TSH #### [facility] [address] [address] [address] Reema Mireles Anion gap [Moles/Vol] 10.5 mmol/L Normal [facility] Comment on above: Performed By: #### B MP, TSH #### [facility] [address] [address] [address] Reema Mireles AST [Catalytic activity/Vol] 8 U/L Critically low 15-37 [facility] Comment on above: Performed By: #### B MP, TSH #### [facility] [address] [address] [address] Reema Mireles Bilirubin [Mass/Vol] 0.3 mg/dL Normal 0.2-1.0 [facility] Comment on above: Performed By: #### B MP, TSH #### [facility] [address] [address] [address] Reema Mireles Calcium [Mass/Vol] 9.0 mg/dL Normal 8.5-10.1 The [facility] Comment on above: Performed By: #### B MP, TSH #### [facility] [address] [address] [address] Reema Mireles Chloride [Moles/Vol] 104 mmol/L Normal 98-107 [facility] Comment on above: Performed By: #### B MP, TSH #### [facility] [address] [address] [address] Reema Mireles CO2 [Moles/Vol] 26.5 mmol/L Normal 21.0-32.[address] [facility] Comment on above: Performed By: #### B MP, TSH #### [facility] [address] [address] [address] Reema Mireles Creatinine [Mass/Vol] 0.79 mg/dL Normal 0.55-1.02 [facility] Comment on above: Performed By: #### B MP, TSH #### [facility] [address] [address] [address] Reema Mireles EGFR-AF KENYAN >60 Normal >=[address] [facility] Comment on above: Performed By: #### B MP, TSH #### [facility] [address] [address] [address] Reema Mireles EGFR-NON AF KENYAN >60 Normal >=60 [facility] Comment on above: Performed By: #### B MP, TSH #### [facility] [address] [address] [address] Reema Mireles Globulin (S) [Mass/Vol] 3.5 g/dL Normal [facility] Comment on above: Performed By: #### B MP, TSH #### [facility] [address] [address] [address] Reema Mireles Glucose [Mass/Vol] 106 mg/dL Normal 74-106 The [facility] Comment on above: Performed By: #### B MP, TSH #### [facility] [address] [address] [address] Reema Mireles Potassium [Moles/Vol] 3.0 mmol/L Critically low 3.5-5.1 [facility] Comment on above: Performed By: #### B MP, TSH #### [facility] [address] [place] [address] Dr. Reema Mireles Protein [Mass/Vol] 7.8 g/dL Normal 6.4-8.2 [facility] Comment on above: Performed By: #### B MP, TSH #### [facility] [address] [place] [address] Dr. Reema Mireles Sodium [Moles/Vol] 138 mmol/L Normal 136-145 The [facility] Comment on above: Performed By: #### B MP, TSH #### [facility] [address] [place] [address] Dr. Reema Mireles Urea nitrogen [Mass/Vol] 8.0 mg/dL Normal 7.0-18.0 [facility] Comment on above: Performed By: #### B MP, TSH #### [facility] [address] [place] [address] Dr. Reema Mireles Urea nitrogen/Creatinine [Mass ratio] 10.1 mg/mg Normal [facility] Comment on above: Performed By: #### B MP, TSH #### [facility] [address] [place] [address] Dr. Reema Mireles PROTIMEon 08-11-2022 INR Coag (PPP) [Relative time] 1.00 {INR} Normal [facility] Comment on above: Performed By: #### P T, PTT #### [facility] [address] [place] [address] Dr. Reema Mireles INR GUIDELINES SEE BELOW Normal [facility] Comment on above: Result Comment: FELICIANO RED INR: 2.0 - 3.0 CONDITIONS NOT LISTED BELOW 2.5 - 3.5 FOR PROSTHETIC HEART VALVE REPLACEMENT 2.5 - 3.5 RECURRENT THROMBOSIS Performed By: #### P T, PTT #### [facility] [address] [place] [address] Dr. Reema Mireles PT Coag (PPP) [Time] 10.8 s Normal 9.0-11.6 [facility] Comment on above: Performed By: #### P T, PTT #### [facility] [address] [address] [address] Reema Mireles PTTon 08-11-2022 aPTT Coag (Bld) [Time] 30.8 s Normal 22.3-36.2 [facility] Comment on above: Performed By: #### P T, PTT #### [facility] [address] [place] [address] Dr. Reema Mireles SED [facility] SED RATE 10 mm/hr Normal <=20 [facility] Comment on above: Performed By: #### B MP, TSH #### [facility] [address] [place] [address] Dr. Reema Mireles TSHon 08-11-2022 TSH 3.313 uIU/mL Normal 0.358-3.740 [facility] Comment on above: Performed By: #### B MP, TSH #### [facility] [address] [place] [address] Dr. Reema Mireles Discharge Instructionson Discharge Instructions [id number] #1.00CD:127 Normal [facility] Comment on above: Other Comment: wrong patient STOOL CULTUREon 04-20-2022 Campylobacter Culture Final report Normal [facility] Comment on above: Performed By: #### B MP, TSH #### [facility] [address] [place] [address] Dr. Reema Mireles E coli Shiga Toxin EIA Negative Normal Negative [facility] Comment on above: Performed By: #### B MP, TSH #### [facility] [address] [place] [address] Dr. Reema Mireles Result 1 Comment Normal [facility] Comment on above: Result Comment: No S almonella or Shigella recovered. Performed By: #### B MP, TSH #### [facility] [address] [place] [address] Dr. Reema Mireles Result Comment: No C ampylobacter species isolated. Salmonella/Shigella Screen Final report Normal [facility] Comment on above: Performed By: #### B MP, TSH #### [facility] [address] [place] [address] Dr. Reema Mireles Coding Summary.on 04-14-2022 Coding Summary. CD:[id number] Gh0bWw+PGhlYWQ+PE1FV KImL40udSOerV9NY5eJO B7JLQONNWCNNJ7OER4nt ZL3ABriK5WsxzLu DdnsiWDyLX11ZRu9AZB9 fAvdENjqwX1agHNrY9h1 ZbRpIT49iI39BIvvDMNd UfN2UnAmedarqZMl R3ruXeVipJZqXpm+PHRh YmxlIHdpZHRoPScxMDAl RhTtdQdrLH6rSu8mEZMb LWNvbGxhcHNlOiBj b7rlTMJcTFckOJ5qaNsv M7RrbNO7JFTgp3l2Vk38 dHI+KNObJIU5fKzkVLcl k576WfEiq3joSRP2 kEQzQUewYES8A07qk8S5 YBDkDEBnVSG5rVJ5aM0x uFwcjndkP7YrnWUtNuO6 REA9cKIioE3fsEfy bserfG4zHii+W37JPE0J PFNWSD3WPqy6N3McVwbz dHI+MB92ZJRhQM61xIOs vCFfm1pdeRz5QiXm BMFaEGQ6rHjjZQtxj8Dw ENCxQ52grLNnn1X6HMNu iLzfqGVpVrElgFK6mY1d OWzzgvhtk8mupvgd Zbarj3fsvm71bJ94S14v YDljFUNgDXQ9MYVcCVYf nAywet1zbZ7rLe2+IDxj u7tcp5oqqSs6OcPr WEXsgvCrpTgeFZA8v3Hc Zx91H5BehNebb2GeIoy6 ro40bPYni0T6kLZ9HGuj CEDuzW5oQMndLkX6 IOCbCeSoiK24hXPhLHnk Sz8bcDankSuvXA5mTFLw xegjLQDfnK8bHVBnfJJd oBrkMR7wARWgrcng t489RqVyILU8VLIvuJPi Y3DweM5tMgXpTUHpHXNi P1NquZNzVMgiD714CJrs IvU8JOUoqrLbX8Gt FHJyuQhmYdX9u3F9Dq3E j6SsuroyDDT9CRcpFHU6 LsH8PkFdSaE0D9ZtAbz1 GYNheOsvZT5nD1Am RFCelsrnxoxdaTZ5YXXc BERniJ25wAGeFXddPr5w j6V7c221UPJhFSOufJ24 Ov2oaTvnGNUgmGTY pK2ilaqxr4lffduwQuFc BDNtSHv9SNi7AICgdKdi NnHqVYA3KcK7OWS6eEFa hT3grWxitgbyjV1q Oyc+N41xvL9dLVO1QYB3 yukoGUFramIzAO78ZN03 P4UhQsigaJQsvMS+PGRp vzOpsCweEE6pCmQn k6dgf5JnUSmkH3OrGLZl UBydNeh6GBVgKBX4eSL6 lG1fQWCvQCbex2N4oZX5 R6FxuyHneq0sm7br PLEvZErnA45qtCKby5G7 TQFqbLU1NKLbuRyfDtTz wC13Jel+KKHxkCrif2Fg Dmsqy0jai0uvnWp4 IjMwJSIgdmFsaWduPSJ0 q0YuZc86T78lZVxdLKFj WFLoSLPdYOLdtLjknt0w fB2pFj3+PGNvbCB3 bAQ9tT8sQQRqLrA1SNvw U041VrMafSLfZxlsm3hv b7vukFx7PqJrAUHsoxGb uMqpYFR9u1TnFv26 M24bGBuwISZpRIFtKUEt RMWgkNuarl1feP2fCt7+ ZG3oo2chza94dG14eBP+ DREoWVE0bXlnBZbd AHSalG6cBKkeZbW5LEEl LrVwfV04qPWpCLdbKi0l mQawdPavRM3oXYOyysus q136IyQex9ggIYAm rMVeILpjCJL6U44bu7K1 HEMbPJYmCJE0gVG4nW5v bGlnbjogbGVmdDsgdmVy dZoyDIedQKovU504 IHRvcDsnPlBhdGllbnQg HlKyREz8R5CeNsu8QJKy dUgxNM5snEHvZAxtVj2c uRyqcVrqLG6lJNCi qxvzr224KbRli8iuBDWv oYEbAToyNZI1M17ls3F1 EMRuLKEdVDQ0cAK9tX6z bGlnbjogbGVmdDsg wtQefIopYXauKQydR359 IHRvcDsnPkJpcnRoIERh kDP4CB35WP06iDTmv6G1 jNM0C2KoWTYujyyy pqlgeFN9ZVJcOFHbyZ89 Iw2pwVgfPj5cWCGkIVO7 RXBqrCOvV3IrjI6bCeJt SEOeKGXsI9NnrWHt PQynU738YSdmMeI8XWWw qvIbZ7BhJKTaqJnoXiP1 j3Q1Oh9HM3U3RM38XB59 wJHdn2H2uQZ5H7Ve FFQprluwkfblmCT8PWFx IHIzqO72Am2mrQfoPr3c IPKsIXL6XJDyfMVjZ4Hm cZ6lBkUvWZScFRDj M7PuzCJhAZnmW507PGsb VzS6AEHbauRtU0IxBXUo fGmkSlE1n9D8Gy8OADl2 MD67FN50cRQur1E4 zWF7M5CpRRFrxsgkpitv qUT4JFJjQQIucZ81Jb0e gCjuEy8vHRJiKNE8MQCj aWOkJ2MscJ4uTbWy QSVxBDSmQ9IuqRDzCJrf H383EEnzUrN2CELjusMm W2AtCBOzpNzqAlP5u9L0 Th0RAUVrSN98NYB9 kLW3IQ33RZ97G5FaQzog dGFibGU+PHRhYmxlIHdp ZHRoPScxMDAlJyBzdHls UI8gQh6iFAHcGVSb sVyyjNRyCzDnp6zeMTHn BLmdGP4lnSbeK7TdcQD8 HGMic5i5Zq41K90yP1Xm dXA+HMRliHK3dER4 vN9hYqUaDsE0VGvjP181 PyOrsPOhWfdyz6mrg7ws sIi2DzV4XRCvboEbwLld DFU3i2PjFl67W55u IHdpZHRoPSIxNSUiIHZh gDnlfe1enV8qJg9+PGNv oTK4iNF1lD1kNiLgCiP4 LTbbI291ArTybVQs Qwqgz5cpl1klgTi4RrZz ASVaoeTwmIetRCE6t3Px Ru97C5HwqCzjo1YeRbm6 gl87rKJrl7P7qQX3 Q8FfARMtughnuZBqlBct UJ8iKEIvjarxMOTfbN4o PSAnG1m3KdViQuR4UEfn C9FdbaE8PMJsiDVs ATidZCS6N36ye0A9JQXy BZUuUVJ9cSV6bW3cmGcw bjogbGVmdDsgdmVydGlj VNvfNYmwY857CEOb pSlvPWYoeW5lBZPbpBMp mUgyHJ5nDEXbhyebKklW UYKSZ84UW0dYJXBUSLJO GTO4L6JwNaa9FGFa mNtlQR3xvZByZDrvQf2y eSxynXupOH0xVKWweysz MJRcwB6iRPOteGNvkGey OL1nFDLdnqfcz622 LgKkEVL3UFVnsIGoS3Bg zS7mQpBiKQIqAPScD9To oWGmVGajE489NSyqYrJ4 YTNernXuX0LiKXLd iPzdUeV0k7O7Od5nOf4f CT4kTWJlUZ67GF36tOBx q2T3uGJ8O7DiQKFtyebt jptnbDQ9ALRqGVVs bC28pDZfUIrjFk3av4P9 h952MDVnYHRuwK92Ub7e iEknVSTrvRXLnZ1ughot m1tuwccvBaBpPESh LLw2IHd5UGKhrHawQyHg ITU3WlV9OPA1iZInjJ7n hLkvoehtrG2jOna+MjAg GNMbdcI3W5BiRdp4 YTYwfVlpAD6udLGfXNnn Pa4afIjyfDlzGD2lXPBt azvxIWEdlX0mJGRsoJOl aVcfPR5wOSDkvhpg s284SxYfYNG4QCZetAWw Q8WymJ7mKmKnGIYuBIDi K3NecTEuZBzvI748QLsj AdS1KMDsnmGcK9Sc MOGcgNjkRtJ8h2U9Kn0X CO0qhIN1M3ScKxw0MRVp xOmjMW7hqIXqKLxeHf8q sYuvzCdlLQ8uOWGn vfpmCVHqwZ5kMIIsrCIp zFncQY7bYVYkuicim003 FzMrVQL6XOBzaHFwI7Uw wG9vRbTwLRPpZMLr M0FbuCBlANsnO880VGpa GzE8VEVwmhJvU0JdRLCs xQlaTxK3q3X8Jn4MpGTr F4BkS6s2H1VsCxjr dHI+YC95YYNyHE30jVPp nWGxl7sbkUa0PoLlEFSm MXK1rRxpHOarv9QrAGVe J03foDSiz9I6ODXc bIthaKQmRfCkpFV5bU1s EUkyjbkon2ulzqaxJscx y7bbjw85vX50O94oRGrx ZHRoPSIzMCUiIHZh uUeizi5fiK7hTa0+PGNv dMW1pQE8qN7dTaJfPdD4 WFxiP021KzPozFNuHokh k1lev1muwIr0YiHi IUFftqXwxSyiCXQ6m2Nl Qc05H39eLHduDVYdTPCc KPGwCPNyxJnzgv6mrQ4z Ii8+PC3sj4pmka33 xU95cPP+EJAjNWP3bXyx SBobORRmdV3jKKupGeR7 QZUqYzAhbN12oTImONkm Vu2wbDuqcTmwRH9d ZRRdyofae131WvOrz7ej ENLiaHQcTGmlNRY0S87d u5M8CYFjKDHyION2uXN9 kH5niQlfytgaxMJw dDsgdmVydGljYWwtYWxp P767EKJlbIzaViRjmRIn W2xoioXHEV9xQqnmqIG+ JTBdVBI4mNcgQVbl TRHjjL7sCLBvC4o8FgXi OhL2WUatH6GohpU2WAUt oKRrZSDzvRMLmW6lvvsc f3pghvwtDxQwLEGy YGi3QUy2VVCeqSxtJqFa FGR5MhA5PDQ0wQWrrB6o lMyuxrxlmS3mQfm+RklO OjwvdGQ+PHRkIHN0 aYytXTeaYSQalX6gKRCx X7n5WuHeFtH9PYowF5Sw hiH6OMNtkHNqYONymLPV yC7qnbtuf5saalvd QqVlUCOnCQs2PJr1KZFf rXzsKoQqMWI0VgI1HBD7 jTLjhK9tnLxlpokqmS6e Oyc+TVJOOjwvdGQ+ YMSmOQO0xZtvWFjbXFXj gO9iHUUqE3l9IuQbSpJ1 DTqmC6HrwzK5LZAchKTy IIZpgVDIsG8ljxre l8webuhhTnBnGBKxMBs0 SOb7ZGXjrTvfHjCoNLH4 EtQ7LDW5nKSdcL0lmBae bgijgU7mEuc+UGF5 PZM9IZ82CF62R8MtZdim dGFibGU+PHRhYmxlIHdp ZHRoPScxMDAlJyBzdHls WX9hZs0aNFAfYWIy bGxh (more content not included)... Normal [facility] CBC AUTO DIFFon 04-13-2022 BASO # 0.1 103/ul Normal 0.0-0.1 [facility] Comment on above: Performed By: #### C VDTBH #### [facility] [address] [place] [address] Dr. Reema Mireles Basophils/100 WBC (Bld) 0.6 % Normal 0.2-2.0 [facility] Comment on above: Performed By: #### C VDTBH #### [facility] [address] [place] [address] Dr. Reema Mireles EO # 0.0 103/ul Normal 0.0-0.7 [facility] Comment on above: Performed By: #### C VDTBH #### [facility] [address] [place] [address] Dr. Reema Mireles Eosinophils/100 WBC (Bld) 0.2 % Critically low 0.9-7.0 [facility] Comment on above: Performed By: #### C VDTBH #### [facility] [address] [place] [address] Dr. Reema Mireles Erythrocyte distribution width (RBC) [Ratio] 11.4 % Normal 11.0-15.0 [facility] Comment on above: Performed By: #### C VDTBH #### [facility] [address] [place] [address] Dr. Reema Mireles Hematocrit (Bld) [Volume fraction] 38.3 % Normal 36.0-48.0 [facility] Comment on above: Performed By: #### C VDTBH #### [facility] [address] [place] [address] Dr. Reema Mireles Hemoglobin (Bld) [Mass/Vol] 13.4 g/dL Normal 12.0-16.0 [facility] Comment on above: Performed By: #### C VDTBH #### [facility] [address] [place] [address] Dr. Reema Mireles IG # 0.01 10e3/ul Normal 0.00-0.03 [facility] Comment on above: Performed By: #### C VDTBH #### [facility] [address] [place] [address] Dr. Reema Mireles IG % 0.1 % Normal 0.0-0.5 [facility] Comment on above: Performed By: #### C VDTBH #### [facility] [address] [place] [address] Dr. Reema Mireles LYMPH # 1.8 103/ul Normal 1.2-3.8 [facility] Comment on above: Performed By: #### C VDTBH #### [facility] [address] [place] [address] Dr. Reema Mireles Lymphocytes/100 WBC (Bld) 22.2 % Normal 20.5-60.0 [facility] Comment on above: Performed By: #### C VDTBH #### [facility] [address] [place] [address] Dr. Reema Mireles MANUAL DIFF REQ NO Normal [facility] Comment on above: Performed By: #### C VDTBH #### [facility] [address] [place] [address] Dr. Reema Mireles MCH (RBC) [Entitic mass] 30.6 pg Normal 26.7-34.0 [facility] Comment on above: Performed By: #### C VDTBH #### [facility] [address] [place] [address] Dr. Reema Mireles MCHC (RBC) [Mass/Vol] 35.0 g/dL Normal 29.9-35.2 [facility] Comment on above: Performed By: #### C VDTBH #### [facility] [address] [place] [address] Dr. Reema Mireles MCV (RBC) [Entitic vol] 87.4 fL Normal 81.0-99.0 [facility] Comment on above: Performed By: #### C VDTBH #### [facility] [address] [place] [address] Dr. Reema Mireles MONO # 0.7 103/ul Normal 0.3-0.8 [facility] Comment on above: Performed By: #### C VDTBH #### [facility] [address] [place] [address] Dr. Reema Mireles Monocytes/100 WBC (Bld) 8.2 % Normal 1.7-12.0 [facility] Comment on above: Performed By: #### C VDTBH #### [facility] [address] [place] [address] Dr. Reema Mireles NEUT # 5.5 103/ul Normal 1.4-6.5 [facility] Comment on above: Performed By: #### C VDTB #### [facility] [address] [place] [address] Dr. Reema Mireles Neutrophils/100 WBC (Bld) 68.7 % Normal 43.0-75.0 [facility] Comment on above: Performed By: #### C VDTBH #### [facility] [address] [place] [address] Dr. Reema Mireles Platelet mean volume (Bld) [Entitic vol] 10.1 fL Normal 9.5-13.5 [facility] Comment on above: Performed By: #### C VDTBH #### [facility] [address] [place] [address] Dr. Reema Mireles PLT 404 103/ul Normal 150-450 [facility] Comment on above: Performed By: #### C VDTBH #### [facility] [address] [place] [address] Dr. Reema Mireles RBC 4.38 106/ul Normal 4.20-5.40 [facility] Comment on above: Performed By: #### C VDTBH #### [facility] [address] [place], [place] [address] Dr. Reema Mireles WBC 8.0 103/ul Normal 4.0-11.0 [facility] Comment on above: Performed By: #### C VDTBH #### [facility] [address] [place], [place] [address] HEAD WO CONon [...] AURELIA CARLOS Date: 2022-04-13 16:29 Normal [facility] Discharge Instructionson Discharge Instructions [id number] #1.00CD:127 Normal [facility] ED Note-Physicianon 04-13-20 ED Note-Physician Basic Information Time Seen: Lata Hardy M.D. 04/12/2022 19:56 Chief Complaint Pt. presents to the ed with c/o headache and vertigo since thursday. Pt. was seen at [place] and started on prednisone. pt. stopped taking [...] The patient states she was seen at [facility] discharged home. She went to urgent [...] neurological deficit. She has been seen at [facility] and started on prednisone. Possible her [...] ADRYAN MARIE In 3 days 04/15/[address] [place], [place] [id number]- Business (1) Additional Instructions: Return to the [...] Diagnostic Results No qualifying data available. Normal [facility] Comment on above: Result Comment: Elec tronically Signed By: Antony Villa, Lata Baxter\.br\Date and Time Signed: 04/13/22 04:56 EDT ER URINE PROFILEon 2 Bilirubin Ql (U) Negative Normal NEGATIVE [facility] Comment on above: Performed By: #### P REGU, ERUR #### [facility] [address] [place] [address] Dr. Reema Mireles Clarity (U) CLEAR Normal CLEAR [facility] Comment on above: Performed By: #### P REGU, ERUR #### [facility] [address] [place] [address] Dr. Reema Mireles Color (U) LT. YELLOW Normal YELLOW [facility] Comment on above: Performed By: #### P REGU, ERUR #### [facility] [address] [place] [address] Dr. Reema ELIZALDE A micrscopic examination will be performed if indicated. Normal [facility] Comment on above: Performed By: #### P REGU, ERUR #### [facility] [address] [place] [address] Dr. Reema Mireles Glucose Ql (U) Negative Normal NEGATIVE [facility] Comment on above: Performed By: #### P REGU, ERUR #### [facility] [address] [place] [address] Dr. Reema Mireles Hemoglobin Ql (U) Negative Normal NEGATIVE [facility] Comment on above: Performed By: #### P REGU, ERUR #### [facility] [address] [place] [address] Dr. Reema Mireles Ketones Ql (U) Negative Normal NEGATIVE [facility] Comment on above: Performed By: #### P REGU, ERUR #### [facility] [address] [place] [address] Dr. Reema Mireles LEUKOCYTES Negative Normal NEGATIVE [facility] Comment on above: Performed By: #### P REGU, ERUR #### [facility] [address] [place] [address] Dr. Reema Mireles Nitrite Ql (U) Negative Normal NEGATIVE [facility] Comment on above: Performed By: #### P REGU, ERUR #### [facility] [address] [place] [address] Dr. Reema Mireles pH (U) 6.5 [pH] Normal 5-9 [facility] Comment on above: Performed By: #### P REGU, ERUR #### [facility] [address] [place] [address] Dr. Reema Mireles SPEC GRAVITY 1.005 Normal 1.005-<=1.025 [facility] Comment on above: Performed By: #### P REGU, ERUR #### [facility] [address] [place] [address] Dr. Reema Mireles UA PROTEIN Negative Normal NEGATIVE/ TRACE [facility] Comment on above: Performed By: #### P REGU, ERUR #### [facility] [address] [place] [address] Dr. Reema Mireles UR MICRO IND NOT INDICATED Normal [facility] Comment on above: Performed By: #### P REGU, ERUR #### [facility] [address] [place] [address] Dr. Reema Mireles Urobilinogen Qn (U) 0.2 {Renny'U}/dL Normal 0.2 - 1. 0 [facility] Comment on above: Performed By: #### P REGU, ERUR #### [facility] [address] [address] [address] Reema Mireles URon 04-13-2022 , QUAL Negative Normal NEGATIVE [facility] Comment on above: Performed By: #### P REGU, ERUR #### [facility] [address] [address] [address] Reema Mireles PROF CHEM 8 (BAS METB)on Anion gap [Moles/Vol] 14.0 mmol/L Normal [facility] Comment on above: Performed By: #### B MP, TSH #### [facility] [address] [address] [address] Reema Mireles Calcium [Mass/Vol] 9.2 mg/dL Normal 8.5-10.1 [facility] Comment on above: Performed By: #### B MP, TSH #### [facility] [address] [address] [address] Reema Mireles Chloride [Moles/Vol] 102 mmol/L Normal 98-107 [facility] Comment on above: Performed By: #### B MP, TSH #### [facility] [address] [address] [address] Reema Mireles CO2 [Moles/Vol] 26.3 mmol/L Normal 21.0-32.0 [facility] Comment on above: Performed By: #### B MP, TSH #### [facility] [address] [address] [address] Reema Mireles Creatinine [Mass/Vol] 0.65 mg/dL Normal 0.55-1.02 [facility] Comment on above: Performed By: #### B MP, TSH #### [facility] [address] [address] [address] Reema Mireles EGFR-AF KENYAN >60 Normal >=60 [facility] Comment on above: Performed By: #### B MP, TSH #### [facility] [address] [place] [address] Dr. Reema Mireles EGFR-NON AF KENYAN >60 Normal >=60 [facility] Comment on above: Performed By: #### B MP, TSH #### [facility] [address] [address] [address] Reema Mireles Glucose [Mass/Vol] 92 mg/dL Normal 74-106 [facility] Comment on above: Performed By: #### B MP, TSH #### [facility] [address] [address] [address] Reema Mireles Potassium [Moles/Vol] 3.3 mmol/L Critically low 3.5-5.1 [facility] Comment on above: Performed By: #### B MP, TSH #### [facility] [address] [address] [address] Reema Mireles Sodium [Moles/Vol] 139 mmol/L Normal 136-145 [facility] Comment on above: Performed By: #### B MP, TSH #### [facility] [address] [address] [address] Reema Mireles Urea nitrogen [Mass/Vol] 8.0 mg/dL Normal 7.0-18.0 [facility] Comment on above: Performed By: #### B MP, TSH #### [facility] [address] [address] [address] Reema Mireles Urea nitrogen/Creatinine [Mass ratio] 12.3 mg/mg Normal [facility] Comment on above: Performed By: #### B MP, TSH #### [facility] [address] [address] [address] Reema Mireles TSHon 04-13-2022 TSH 1.293 uIU/mL Normal 0.358-3.740 [facility] Comment on above: Performed By: #### B MP, TSH #### [facility] [address] [address] [address] Reema Mireles Consent for Treatmenton 03-28 Consent for Treatment [id number] Normal [facility] ED Clinical Summaryon 2021 ED Clinical Summary [address] [place] [address] ED Clinical Summary Person Information Name: JUANPABLO CHAPARRO [place] Age: 21 Years : 2000 Sex: Female Language: Luxembourgish PCP: ADRYAN MARIE MD Marital Status: Single Phone: [phone] Visit Id: Visit Reason: Vertigo - recurrent; [...] 04/12/2022 21:07:38 04/12/2022 21:07:38 04/12/2022 21:07:38 ADDRESS: [address] [place] [id number] PHYS DOC NOTES: MEDICAL INFORMATION: Prescriptions Given: PATIENT EDUCATION INFORMATION: Instructions: General Headache Without Cause; Vertigo Follow up: With: Address: When: ADRYAN OSCAR [address] [place], [place] [id number] Business (1) In 3 days 04/15/2022 Comments: Return to the emergency room if her headache gets worse, vertigo becomes persistent or any new symptoms DIAGNOSIS: 1:Vertigo; 2:Headache Normal [facility] ED Patient Education Noteon 04-12-2022 ED Patient [...] you feel dizzy. General instructions ? Take fwvm-llg-bvdzivd and prescription medicines only as told by [...] 06/24/2006 Document Revised: 08/08/2019 Document Reviewed: 08/08/2019 [employer] Patient Education ? 2020 [employer] Neurology General Headache Without Cause A [...] with your condition: Managing pain ? Take xhau-abu-lbmbaob and prescription medicines only as told by [...] of beer (more content not included)... Normal [facility] ED Patient Summaryon 022 ED Patient Summary [place] [id number] Patient Discharge Instructions Person Information Name: JUANPABLO CHAPARRO Age: 21 Years Arrival Date: 04/12/2022 19:22:40 Discharge Diagnosis: 1:Vertigo; 2:Headache Primary Care Physician: ADRYAN MARIE MD Provider Information Primary Provider: Lata Hardy M.D. [employer] Service Supervisor:None The exam and treatment you received in the Emergency Department were for an urgent problem and are not intended as complete care. It is important that you follow up with a doctor, nurse practitioner, or physician?s processing assistant for ongoing care. If your symptoms [...] Follow-up Instructions: With: Address: When: ADRYAN MARIE [address] [place], [place] [id number] [employer] (1) In 3 days 04/15/2022 Comments: Return [...] opioids can be used to help relieve keyoiest-mz-sorvbz pain and are often prescribed following a [...] addiction, tel (more content not included)... Normal [facility] CBC AUTO DIFFon 04-09-2022 BASO # 0.1 103/ul Normal 0.0-0.1 [facility] Comment on above: Performed By: #### B MP, TSH #### [facility] [address] [address] [address] Reema Mireles Basophils/100 WBC (Bld) 0.5 % Normal 0.2-2.0 [facility] Comment on above: Performed By: #### B MP, TSH #### [facility] [address] [place] [address] Dr. Reema Mireles EO # 0.1 103/ul Normal 0.0-0.7 [facility] Comment on above: Performed By: #### B MP, TSH #### [facility] [address] [place] [address] Dr. Reema Mireles Eosinophils/100 WBC (Bld) 1.0 % Normal 0.9-7.0 [facility] Comment on above: Performed By: #### B MP, TSH #### [facility] [address] [place] [address] Dr. Reema Mireles Erythrocyte distribution width (RBC) [Ratio] 11.7 % Normal 11.0-15.0 [facility] Comment on above: Performed By: #### B MP, TSH #### [facility] [address] [place] [address] Dr. Reema Mireles Hematocrit (Bld) [Volume fraction] 37.2 % Normal 36.0-48.0 [facility] Comment on above: Performed By: #### B MP, TSH #### [facility] [address] [place] [address] Dr. Reema Mireles Hemoglobin (Bld) [Mass/Vol] 12.8 g/dL Normal 12.0-16.0 [facility] Comment on above: Performed By: #### B MP, TSH #### [facility] [address] [place] [address] Dr. Reema Mireles IG # 0.02 10e3/ul Normal 0.00-0.03 [facility] Comment on above: Performed By: #### B MP, TSH #### [facility] [address] [place] [address] Dr. Reema Mireles IG % 0.2 % Normal 0.0-0.5 [facility] Comment on above: Performed By: #### B MP, TSH #### [facility] [address] [place] [address] Dr. Reema Mireles LYMPH # 1.8 103/ul Normal 1.2-3.8 [facility] Comment on above: Performed By: #### B MP, TSH #### [facility] [address] [address] [address] eRema Mireles Lymphocytes/100 WBC (Bld) 19.0 % Critically low 20.5-60.0 [facility] Comment on above: Performed By: #### B MP, TSH #### [facility] [address] [place] [address] Dr. Reema Mireles MANUAL DIFF REQ NO Normal [facility] Comment on above: Performed By: #### B MP, TSH #### [facility] [address] [place] [address] Dr. Reema Mireles MCH (RBC) [Entitic mass] 30.4 pg Normal 26.7-34.0 [facility] Comment on above: Performed By: #### B MP, TSH #### [facility] [address] [place] [address] Dr. Reema Mireles MCHC (RBC) [Mass/Vol] 34.4 g/dL Normal 29.9-35.2 [facility] Comment on above: Performed By: #### B MP, TSH #### [facility] [address] [place] [address] Dr. Reema Mireles MCV (RBC) [Entitic vol] 88.4 fL Normal 81.0-99.0 [facility] Comment on above: Performed By: #### B MP, TSH #### [facility] [address] [place] [address] Dr. Reema Mireles MONO # 0.7 103/ul Normal 0.3-0.8 [facility] Comment on above: Performed By: #### B MP, TSH #### [facility] [address] [place] [address] Dr. Reema Mireles Monocytes/100 WBC (Bld) 6.8 % Normal 1.7-12.0 [facility] Comment on above: Performed By: #### B MP, TSH #### [facility] [address] [place] [address] Dr. Reema Mireles NEUT # 7.0 103/ul Critically high 1.4-6.[address] [facility] Comment on above: Performed By: #### B MP, TSH #### [facility] [address] [address] [address] Reema Mireles Neutrophils/100 WBC (Bld) 72.5 % Normal 43.0-75.0 [facility] Comment on above: Performed By: #### B MP, TSH #### [facility] [address] [address] [address] Reema Mireles Platelet mean volume (Bld) [Entitic vol] 10.3 fL Normal 9.5-13.5 [facility] Comment on above: Performed By: #### B GURPREET, TSH #### [facility] [address] [address] [address] Reema Mireles PLT 358 103/ul Normal 150-450 [facility] Comment on above: Performed By: #### B GURPREET, TSH #### [facility] [address] [place] [address] Dr. Reema Mireles RBC 4.21 106/ul Normal 4.20-5.40 [facility] Comment on above: Performed By: #### B GURPREET, TSH #### [facility] [address] [address] [address] Reema Mireles WBC 9.7 103/ul Normal 4.0-11.0 [facility] Comment on above: Performed By: #### B GURPREET, TSH #### [facility] [address] [address] [address] Reema Mireles CULTURE BLOODon 04-09-2022 Microscopic examination of blood, culture Culture Observations: NO GROWTH AT 5 DAYS. Normal [facility] Comment on above: Performed By: #### B MP, TSH #### [facility] [address] [address] [address] Reema Mireles ER URINE PROFILEon 2 Bilirubin Ql (U) Negative Normal NEGATIVE [facility] Comment on above: Performed By: #### B MP, TSH #### [facility] [address] [address] [address] Reema Mireles Clarity (U) CLEAR Normal CLEAR [facility] Comment on above: Performed By: #### B MP, TSH #### [facility] [address] [place] [address] Dr. Reema Mireles Color (U) LT. YELLOW Normal YELLOW [facility] Comment on above: Performed By: #### B MP, TSH #### [facility] [address] [place] [address] Dr. Reema Mireles ERUAHJohana A micrscopic examination will be performed if indicated. Normal [facility] Comment on above: Performed By: #### B MP, TSH #### [facility] [address] [place] [address] Dr. Reema Mireles Glucose Ql (U) Negative Normal NEGATIVE [facility] Comment on above: Performed By: #### B MP, TSH #### [facility] [address] [place] [address] Dr. Reema Mireles Hemoglobin Ql (U) TRACE-INTACT Abnormal NEGATIVE [facility] Comment on above: Performed By: #### B MP, TSH #### [facility] [address] [place] [address] Dr. Reema Mireles Ketones Ql (U) Negative Normal NEGATIVE [facility] Comment on above: Performed By: #### B MP, TSH #### [facility] [address] [place] [address] Dr. Reema Mireles LEUKOCYTES Negative Normal NEGATIVE [facility] Comment on above: Performed By: #### B MP, TSH #### [facility] [address] [place] [address] Dr. Reema Mireles Nitrite Ql (U) Negative Normal NEGATIVE [facility] Comment on above: Performed By: #### B MP, TSH #### [facility] [address] [place] [address] Dr. Reema Mireles pH (U) 5.5 [pH] Normal 5-9 [facility] Comment on above: Performed By: #### B MP, TSH #### [facility] [address] [place] [address] Dr. Reema Mireles SPEC GRAVITY <=1.005 Abnormal 1.005-<=1.025 [facility] Comment on above: Performed By: #### B MP, TSH #### [facility] [address] [address] [address] Reema Mireles UA PROTEIN Negative Normal NEGATIVE/ TRACE [facility] Comment on above: Performed By: #### B MP, TSH #### [facility] [address] [address] [address] Reema Mireles UR MICRO IND INDICATED Normal [facility] Comment on above: Performed By: #### B MP, TSH #### [facility] [address] [place] [address] Dr. Reema Mireles Urobilinogen Qn (U) 0.2 {Renny'U}/dL Normal 0.2 - 1. 0 [facility] Comment on above: Performed By: #### B MP, TSH #### [facility] [address] [place] [address] Dr. Reema Mireles LACTATE/LACTIC ACIDon 2021 Lactate [Moles/Vol] 2.2 mmol/L Critically high 0.4-1.9 [facility] Comment on above: Performed By: #### B MP, TSH #### [facility] [address] [place] [address] Dr. Reema Mireles URon 04-09-2022 , QUAL Negative Normal NEGATIVE [facility] Comment on above: Performed By: #### B MP, TSH #### [facility] [address] [place] [address] Dr. Reema Mireles PROF 14(COMP METB)on 022 Albumin [Mass/Vol] 4.5 g/dL Normal 3.4-5.0 [facility] Comment on above: Performed By: #### C MP #### [facility] [address] [place] [address] Dr. Reema Mireles Albumin/Globulin [Mass ratio] 1.3 {ratio} Normal [facility] Comment on above: Performed By: #### C MP #### [facility] [address] [address] [address] Reema Mireles ALP [Catalytic activity/Vol] 83 U/L Normal 46-116 [facility] Comment on above: Performed By: #### C MP #### [facility] [address] [address] [address] Reema Mireles ALT [Catalytic activity/Vol] 26 U/L Normal 14-59 [facility] Comment on above: Performed By: #### C MP #### [facility] [address] [address] [address] Reema Mireles Anion gap [Moles/Vol] 14.9 mmol/L Normal [facility] Comment on above: Performed By: #### C MP #### [facility] [address] [address] [address] Reema Mireles AST [Catalytic activity/Vol] 12 U/L Critically low 15-37 [facility] Comment on above: Performed By: #### C MP #### [facility] [address] [address] [address] Reema Mireles Bilirubin [Mass/Vol] 0.3 mg/dL Normal 0.2-1.0 [facility] Comment on above: Performed By: #### C MP #### [facility] [address] [address] [address] Reema Mireles Calcium [Mass/Vol] 9.6 mg/dL Normal 8.5-10.1 [facility] Comment on above: Performed By: #### C MP #### [facility] [address] [address] [address] Reema Mireles Chloride [Moles/Vol] 103 mmol/L Normal 98-107 [facility] Comment on above: Performed By: #### C MP #### [facility] [address] [address] [address] Reema Mireles CO2 [Moles/Vol] 24.4 mmol/L Normal 21.0-32.[address] [facility] Comment on above: Performed By: #### C MP #### [facility] [address] [address] [address] Reema Mireles Creatinine [Mass/Vol] 0.87 mg/dL Normal 0.55-1.02 [facility] Comment on above: Performed By: #### C MP #### [facility] [address] [address] [address] Reema Mireles EGFR-AF KENYAN >60 Normal >=60 [facility] Comment on above: Performed By: #### C MP #### [facility] [address] [address] [address] Reema Mireles EGFR-NON AF KENYAN >60 Normal >=60 [facility] Comment on above: Performed By: #### C MP #### [facility] [address] [address] [address] Reema Mireles Globulin (S) [Mass/Vol] 3.5 g/dL Normal [facility] Comment on above: Performed By: #### C MP #### [facility] [address] [address] [address] Reema Mireles Glucose [Mass/Vol] 109 mg/dL Critically high 74-106 [facility] Comment on above: Performed By: #### C MP #### [facility] [address] [address] [address] Reema Mireles Potassium [Moles/Vol] 3.3 mmol/L Critically low 3.5-5.1 [facility] Comment on above: Performed By: #### C MP #### [facility] [address] [address] [address] Reema Mireles Protein [Mass/Vol] 8.0 g/dL Normal 6.4-8.2 [facility] Comment on above: Performed By: #### C MP #### [facility] [address] [address] [address] Reema Mireles Sodium [Moles/Vol] 139 mmol/L Normal 136-145 [facility] Comment on above: Performed By: #### C MP #### [facility] [address] [address] [address] Reema Mireles Urea nitrogen [Mass/Vol] 9.0 mg/dL Normal 7.0-18.0 [facility] Comment on above: Performed By: #### C MP #### [facility] [address] [address] [address] Reema Mireles Urea nitrogen/Creatinine [Mass ratio] 10.3 mg/mg Normal [facility] Comment on above: Performed By: #### C MP #### [facility] [address] [place] [address] Dr. Reema Mireles URINE MICROSCOPIC ONLYon BACTERIA NONE SEEN Normal NONE SEEN [facility] Comment on above: Performed By: #### B MP, TSH #### [facility] [address] [place] [address] Dr. Reema Mireles Bacteria identified Cx Nom (U) NOT INDICATED Normal [facility] Comment on above: Performed By: #### B MP, TSH #### [facility] [address] [place] [address] Dr. Reema Mireles CAST NONE SEEN Normal NONE SEEN [facility] Comment on above: Performed By: #### B MP, TSH #### [facility] [address] [place] [address] Dr. Reema Mireles Crystals LM Nom (Urine sed) NONE SEEN Normal NONE SEEN [facility] Comment on above: Performed By: #### B MP, TSH #### [facility] [address] [place] [address] Dr. Reema Mireles Epithelial cells LM Ql (Urine sed) RARE Normal NONE SEEN /RARE [facility] Comment on above: Performed By: #### B MP, TSH #### [facility] [address] [place] [address] Dr. Reema Mireles MUCOUS NONE SEEN Normal NONE SEEN [facility] Comment on above: Performed By: #### B MP, TSH #### [facility] [address] [place] [address] Dr. Reema Mireles RBC 0-2 Normal 0-2 [facility] Comment on above: Performed By: #### B MP, TSH #### [facility] [address] [place] [address] Dr. Reema Mireles WBC NONE SEEN Normal NONE SEEN [facility] Comment on above: Performed By: #### B MP, TSH #### [facility] [address] [place] [address] Dr. Reema Mireles CBC AUTO DIFFon 10-25-2021 BASO # 0.0 103/ul Normal 0.0-0.1 [facility] Comment on above: Performed By: #### C BC #### [facility] [address] [place] [address] Dr. Reema Mireles Basophils/100 WBC (Bld) 0.6 % Normal 0.2-2.0 [facility] Comment on above: Performed By: #### C BC #### [facility] [address] [place] [address] Dr. Reema Mireles EO # 0.1 103/ul Normal 0.0-0.7 [facility] Comment on above: Performed By: #### C BC #### [facility] [address] [place] [address] Dr. Reema Mireles Eosinophils/100 WBC (Bld) 1.8 % Normal 0.9-7.0 [facility] Comment on above: Performed By: #### C BC #### [facility] [address] [place] [address] Dr. Reema Mireles Erythrocyte distribution width (RBC) [Ratio] 11.9 % Normal 11.0-15.0 [facility] Comment on above: Performed By: #### C BC #### [facility] [address] [place] [address] Dr. Reema Mireles Hematocrit (Bld) [Volume fraction] 38.1 % Normal 36.0-48.0 [facility] Comment on above: Performed By: #### C BC #### [facility] [address] [place] [address] Dr. Reema Mireles Hemoglobin (Bld) [Mass/Vol] 13.1 g/dL Normal 12.0-16.0 [facility] Comment on above: Performed By: #### C BC #### [facility] [address] [place] [address] Dr. Reema Mireles IG # 0.01 10e3/ul Normal 0.00-0.03 [facility] Comment on above: Performed By: #### C BC #### [facility] [address] [place] [address] Dr. Reema Mireles IG % 0.1 % Normal 0.0-0.5 [facility] Comment on above: Performed By: #### C BC #### [facility] [address] [place] [address] Dr. Reema Mireles LYMPH # 1.9 103/ul Normal 1.2-3.8 [facility] Comment on above: Performed By: #### C BC #### [facility] [address] [place] [address] Dr. Reema Mireles Lymphocytes/100 WBC (Bld) 27.8 % Normal 20.5-60.0 [facility] Comment on above: Performed By: #### C BC #### [facility] Laboratory [address] [place] [address] Dr. Reema Mireles MANUAL DIFF REQ NO Normal [facility] Comment on above: Performed By: #### C BC #### [facility] Laboratory [address] [place] [address] Dr. Reema Mireles MCH (RBC) [Entitic mass] 30.5 pg Normal 26.7-34.0 [facility] Comment on above: Performed By: #### C BC #### [facility] Laboratory [address] [place] [address] Dr. Reema Mireles MCHC (RBC) [Mass/Vol] 34.4 g/dL Normal 29.9-35.2 [facility] Comment on above: Performed By: #### C BC #### [facility] Laboratory [address] [place] [address] Dr. Reema Mireles MCV (RBC) [Entitic vol] 88.8 fL Normal 81.0-99.0 [facility] Comment on above: Performed By: #### C BC #### [facility] Laboratory [address] [place] [address] Dr. Reema Mireles MONO # 0.8 103/ul Normal 0.3-0.8 [facility] Comment on above: Performed By: #### C BC #### [facility] Laboratory [address] [place] [address] Dr. Reema Mireles Monocytes/100 WBC (Bld) 11.2 % Normal 1.7-12.0 [facility] Comment on above: Performed By: #### C BC #### [facility] Laboratory [address] [place] [address] Dr. Reema Mireles NEUT # 4.0 103/ul Normal 1.4-6.5 [facility] Comment on above: Performed By: #### C BC #### [facility] Laboratory [address] [place] [address] Dr. Reema Mireles Neutrophils/100 WBC (Bld) 58.5 % Normal 43.0-75.0 [facility] Comment on above: Performed By: #### C BC #### [facility] Laboratory [address] [place] [address] Dr. Reema Mireles Platelet mean volume (Bld) [Entitic vol] 10.0 fL Normal 9.5-13.5 [facility] Comment on above: Performed By: #### C BC #### [facility] Laboratory [address] [place] [address] Dr. Reema Mireles PLT 361 103/ul Normal 150-450 [facility] Comment on above: Performed By: #### C BC #### [facility] Laboratory [address] [place] [address] Dr. Reema Mireles RBC 4.29 106/ul Normal 4.20-5.40 [facility] Comment on above: Performed By: #### C BC #### [facility] Laboratory [address] [place] [address] Dr. Reema Mireles WBC 6.8 103/ul Normal 4.0-11.0 [facility] Comment on above: Performed By: #### C BC #### [facility] Laboratory [address] [place] [address] Dr. Reema Mireles PREG QUANT HCGon 10-25-2021 HCG QUANT 1 mIU/mL Normal [facility] Comment on above: Performed By: #### P REGQNT #### [facility] Laboratory [address] [place] [address] Dr. Reema Mireles HCG RANGE SEE BELOW Normal [facility] Comment on above: Result Comment: 5-50 0-1 WEEK 40-300 1-2 WEEKS 100-1,000 2-3 WEEKS 500-6,000 3-4 WEEKS 5,000-200,000 1-2 MONTHS 10,000-100,000 2-3 MONTHS 3,000-50,000 2ND TRIMESTER 1,000-50,000 3RD TRIMESTER Performed By: #### P REGQNT #### [facility] Laboratory [address] [address] [address] Reema Mireles Covid-19 PCR ([facility])on 09-29 SARS-CoV-2 (COVID-19) RNA FRANKIE+probe Ql (Unsp spec) Not detected Normal NOT DETECTED [facility] Comment on above: Result Comment: This test is not yet approved or cleared by the [place] FDA. When there are no FDA-approved or cleared tests available, and other criteria are met, FDA can make tests available under an emergency access mechanism called an Emergency Use Authorization (EUA). The EUA for this test is supported by the [employer] of Health and Human Service's (HHS's) declaration [...] SARS-CoV-2. Performed By: #### C VDTB #### [facility] [address] [place], [place] [address] Dr. Reema Mireles Vital Signs Date Time Vital Sign Value Performing Clinician Facility 11-12-2023 14:15-0500 Body weight 108.86 kg [employer] Work Phone: [facility] 11-12-2023 14:15-0500 Diastolic blood pressure 72 mm[Hg] [employer] Work Phone: [facility] 11-12-2023 14:15-0500 Systolic blood pressure 122 mm[Hg] Devan Tello DO Work Phone: [facility] 04-12-2022 21:04-0400 Diastolic blood pressure 84 mm[Hg] [facility] 04-12-2022 21:04-0400 Heart rate 82 /min [facility] 04-12-2022 21:04-0400 Respiratory rate 16 /min [facility] 04-12-2022 21:04-0400 SaO2% (BldA) [Mass fraction] 98 % [facility] 04-12-2022 21:04-0400 Systolic blood pressure 120 mm[Hg] [facility] 04-12-2022 20:32-0400 gluc 80 mg/dL [facility] Comment on above: Result Comment: not taken due to pt refu jimmie of any injection 04-12-2022 20:32-0400 gluc [facility] 04-12-2022 19:25-0400 Body temperature 99.32 [degF] [facility] 04-12-2022 19:25-0400 Diastolic blood pressure 84 mm[Hg] [facility] 04-12-2022 19:25-0400 Heart rate 90 /min [facility] 04-12-2022 19:25-0400 Respiratory rate 18 /min [facility] 04-12-2022 19:25-0400 SaO2% (BldA) [Mass fraction] 98 % [facility] 04-12-2022 19:25-0400 Systolic blood pressure 118 mm[Hg] [facility] 04-09-2022 12:20-0400 Body height 165.1 cm Deonna Back Other [employer] Other 04-09-2022 12:20-0400 Body mass index (BMI) [Ratio] 35.61 kg/m2 Deonna Nazanin Other [employer] Other 04-09-2022 12:20-0400 Body temperature 98.4 [degF] Deonna Nazanin Other [employer] Other 04-09-2022 12:20-0400 Body weight 97.07 kg Deonna Nazanin Other [employer] Other 04-09-2022 12:20-0400 Diastolic blood pressure 83 mm[Hg] Deonna Nazanin Other [employer] Other 04-09-2022 12:20-0400 Respiratory rate 18 /min Deonna Nazanin Other [employer] Other 04-09-2022 12:20-0400 SaO2% (BldA) [Mass fraction] 99 % Deonna Nazanin Other [employer] Other 04-09-2022 12:20-0400 Systolic blood pressure 135 mm[Hg] Deonna Nazanin Other [employer] Other 04-02-2022 19:00-0400 Body height 165.1 cm Deonna Nazanin Other [employer] Other 04-02-2022 19:00-0400 Body mass index (BMI) [Ratio] 35.71 kg/m2 Deonna Nazanin Other [employer] Other 04-02-2022 19:00-0400 Body temperature 98.1 [degF] Deonna Nazanin Other [employer] Other 04-02-2022 19:00-0400 Body weight 97.34 kg Deonna Back Other [employer] Other 04-02-2022 19:00-0400 Diastolic blood pressure 83 mm[Hg] Deonna Back Other [employer] Other 04-02-2022 19:00-0400 Respiratory rate 18 /min Deonna Back Other [employer] Other 04-02-2022 19:00-0400 SaO2% (BldA) [Mass fraction] 100 % Deonna Back Other [employer] Other 04-02-2022 19:00-0400 Systolic blood pressure 134 mm[Hg] Deonna Back Other [employer] Other Encounters Encounter Date Encounter Type Care [...] 04-12-2022 Emergency department patient visit Lata Hardy [facility] Start: 04-10-2022 End: 04-10-2022 ambulatory Deonna Back Other [employer] Other Start: 04-10-2022 Telephone encounter Deonna Back [facility] Start: 04-09-2022 End: 04-09-2022 ambulatory Deonna Back Other [employer] Other Start: 04-09-2022 Office outpatient vi sit 15 minutes Deonna Back [facility] Start: 04-09-2022 End: 04-09-[address] LUIS ANTONIO SUTTON Facility:[facility] Start: 04-02-2022 (URG) Urgent Care Visit Deonna Silva d [facility] Start: 04-02-2022 End: 04-02-2022 ambulatory Deonna Back Other [employer] Other Start: 10-25-2021 End: 10-25-[address] [...] Routine [facility] [address] [place] [address] Cydney Leos PA [address] [place], [place] [id number] [facility] Start: 11-26-2023 End: 11-26-2023 Professional / ancillary services management 11/26/2023 10:30 AM EST Ancillary Procedure [facility] [address] [place] [address] [facility] Start: 11-12-2023 End: [...] Routine [facility] [address] [place] [id number] Devan Tello, [address] [place] [address] [facility] Payers Date Payer Category Payer Unknown [facility] MEDICAID [id number] 2023-Present [address] [place] [address] [id number] 2023 Medicaid [id number] 2001 Unknown [id number] 2.16.840.1.661250.3.579.2. 593 2001 Unknown [id number] 2.16.840.1.700969.3.579.2. 593 2001 Unknown [id number] 2.16.840.1.105574.3.579.2. 593 2001 Unknown [id number] 2.16.840.1.551549.3.579.2. 593 2001 Unknown [id number] 2.16.840.1.615108.3.579.2. 593 2001 Unknown [id number] 2.16.840.1.112261.3.579.2. 593 2001 Unknown [id number] 2.16.840.1.930585.3.579.2. 593 2001 Unknown [id number] 2.16.840.1.705933.3.579.2. 593 2001 Unknown [id number] 2.16.840.1.670090.3.579.2. 593 2001 Unknown [id number] 2.16.840.1.602151.3.579.2. 593 2001 Unknown [id number] 2.16.840.1.137572.3.579.2. 593 2001 Unknown [id number] 2.16.840.1.873613.3.579.2. 1259 2001 Unknown [id number] 2.16.840.1.664765.3.579.2. 1259 2001 Unknown [id number] 2.16.840.1.565193.3.579.2. 1259 2001 Unknown [id number] 2.16.840.1.833309.3.579.2. 1259 2001 Unknown [id number] 2.16.840.1.699830.3.579.2. 1259 2001 Unknown [id number] 2.16.840.1.206997.3.579.2. 1259 1958 [facility] [id number] 2.16.840.1.747844.19 Social History Date Type Detail Facility Unknown if ever smoked [facility] [employer] Other Sex Assigned At [facility] [employer] Other Tobacco smoking status No Smoking Status Entered [facility] Start: 06-20-2023 Tobacco smoking status AKIS Tobacco smoking consumption unknown [facility] Start: 10-15-2023 Alcohol intake Lifetime non-d hermes (finding) [facility] Start: 06-20-2023 Tobacco Comment Current smoker (frequency unknown) [facility] Start: 05-06-2023 [facility] Start: 2000 Sex Assigned At Not on file [facility] Goals Date Patient Goal Desired Activity /State Personal health goal Functional Status Date Assessment Result Facility 04-12-2022 Functional Status N/A [facility] History of Present illness Narrative [...] Devan Tello DO documented in this encounter [facility] Discharge instructions 04-12-2022 Note Date & [...] help with your condition: Managing pain Take macx-rxd-qoohxnw and prescription medicines only as told by [...] 09/14/2006 Document Revised: 04/04/2019 Document Reviewed: 04/04/2019 [employer] Patient Education 2020 [employer] 04/12/2022 21:07:38 Vertigo Vertigo Vertigo is [...] if you feel dizzy. General instructions Take apga-aeu-zgqdevx and prescription medicines only as told by [...] 06/24/2006 Document Revised: 08/08/2019 Document Reviewed: 08/08/2019 [employer] Patient Education 2020 [employer] Follow Up Care 04/12/2022 19:25:17 With:ADRYAN MARIE Address: [address] [place], [place] [id number] [facility] (1) When:04/15/2022 20:55:24 Comments:Return to the emergency room if her headache gets worse, vertigo becomes persistent or any new symptoms [facility] Evaluation note 04-09-2022 Note Date & Type [...] She was prescribed Zofran with no improvement. [employer] Other Evaluation note 04-02-2022 Note Date & [...] 3 days. No swimming for a week [employer] Other Clinical Note 10-25-2021 Note Date & Type Note Facility 10-25-2021 Note OPERATIVE NOTE PROCEDURE: Diagnostic laparoscopy. PREOPERATIVE DIAGNOSIS: Pelvic pain, dyspareunia dysmenorrhea. POSTOPERATIVE DIAGNOSIS: Pelvic pain, dyspareunia dysmenorrhea. ANESTHESIA: General. SURGEON: Devan Tello D.O. INDUSTRIAL RELATIONS ANALYST: JAE Worley URINE OUTPUT: Yellow and clear. [...] taken to Recovery Room in stable condition. [facility] Signed and Approved by: DR DEVAN TELLO . 11/01/2021 17:31:00 [facility] Evaluation + Plan note Note Date & Type Note Facility Evaluation + Plan note No data available for this section [facility] Evaluation note Note Date & Type Note Facility Evaluation note No Information [facility] Other Evaluation note Note Date & Type [...] endometriosis Hospitalization History RSV as a baby [facility] [employer] Other Progress note Note Date & Type Note Facility Progress note No data available for this section [facility] Summary Purpose Family History No Family History Records FoundNo Family History Records FoundNo Family History Records Found Advance Directives No Advanced Directives Records FoundNo Advanced Directives Records FoundNo Advanced Directives Records Found Additional Source Comments REASON FOR VISIT (unrecogniz ed section and content) Reason Comments Routine Visit Care Team (unrecognized sect ion and content) Instructor Technical Training Relationship Specialty Start Date End Date Adryan Marie MD [address] [place], [place] [id number] PCP - General Family Medicine 06/19/23 Instructor Technical Training Relationship Specialty Start Date End Date Adryan Marie MD [address] [place] [address] PCP - General Family Medicine 06/19/23 INFORMATION SOURCE (unrecogn ized section and content) DATE CREATED AUTHOR 04/26/2022 [facility] [place] DATE CREATED AUTHOR AUTHOR'S ORGANIZ ATION 09/19/2022 [facility] DATE CREATED AUTHOR AUTHOR'S ORGANIZ ATION 12/14/2023 [facility] FOR RECORDS PERTAINING TO PATIENTS [...] BE BASED ON THE PRIMARY CLINICAL RECORDS. [facility]. provides no warranty or guarantee of the accuracy or completeness of information in this document.
--- NOTE | 2023-12-23 09:57 | US_ITS ---
[address] [address] Patient Name: JUANPABLO CHAPARRO MRN: [id number] date: 2000 Sex: F Assigned Patient Location: [facility] Current Patient Location: Accession/Order Number: [id number] Exam Date: 12/23/2023 10:00 Report Date: 12/23/2023 10:52 At the request of: DEVAN GEORGE Procedure: US OB BPP w non-stress EXAMINATION: US OB BPP w non-stress HISTORY: Excessive growth COMPARISON: Ultrasound OB biophysical 12/16/2023 TECHNIQUE: Ultrasound biophysical profile was performed in the radiology department. BREATHING MOVEMENTS: 2.0 GROSS BODY MOVEMENTS: 2.0 TONE: 2.0 QUALITATIVE AMNIOTIC FLUID VOLUME: 2.0 PRESENTATION: CEPHALIC HEART RATE: 132.4 bpm bpm. AMNIOTIC FLUID VOLUME: 10.7 cm GESTATIONAL AGE: 35 weeks 0 days CONCLUSION: Total biophysical profile score 8.0. Electronically authenticated by: WILBERT CASIANO Date: 12/23/2023 10:52
[2023-12-23 10:17] VITALS: BP 123/57; PULSE 112
== END 2023-12-23 10:41 | disposition home or self-care (01) ==
LOC: US 07:23 → FBC 09:57
PROVIDERS: PCP Family Medicine; Visit Provider Obstetrics & Gynecology
DX: O36.63X0 Maternal care for excessive fetal growth, third trimester, not applicable or unspecified (principal); Z3A.35 35 weeks gestation of pregnancy
CPT/HCPCS: 76818

== ENCOUNTER 2023-12-24 10:05 | Outpatient (OUT) | payer OTHER, SELFPAY ==
--- NOTE | 2023-12-24 10:06 | US_ITS ---
[address] [address] Patient Name: JUANPABLO CHAPARRO MRN: [id number] date: 2000 Sex: F Assigned Patient Location: [facility] Current Patient Location: [facility] Accession/Order Number: [id number] Exam Date: 12/24/2023 10:06 Report Date: 12/24/2023 10:58 At the request of: DEVAN GEORGE Procedure: US OB growth EXAMINATION: US OB growth HISTORY: LGA COMPARISON: No relevant comparison available. FINDINGS: Heart Rate: 130.0 bpm Amniotic Fluid Volume: 12.8 cm Number: 1.0 Position: Cephalic presentation, longitudinal lie Maximum Vertical Pocket: 3.8 cm cm 2.5 cm cm 3.5 cm cm 3.0 cm cm BIOMETRY: BPD: 8.9 cm cm; 36 weeks 1 days; 79% HC: 33.5 cmcm; 38 weeks 3 days , 89% AC: 35.1 cm cm; 39 weeks 0 days, >97% FL: 7.3 cm cm; 37 weeks 3 days; 91.6 % % EFW: 3419.1 grams, 7 lb 9 oz, > 97% FL/AC: 20.9 FL/BPD: 82.0 HC/AC: 1.0 GESTATIONAL AGE: Age by EDC: 35 weeks 1 days TOMASZ by EDC: 01/27/24 Age by US: 37w 5d TOMASZ by US: 01/09/24 US/US OB growth IMPRESSION: Large for gestational age Electronically authenticated by: ADRYAN PRESCOTT Date: 12/24/2023 10:58
== END 2023-12-24 10:06 | disposition home or self-care (01) ==
LOC: NOMS 10:05
PROVIDERS: PCP Family Medicine; Visit Provider Obstetrics & Gynecology
DX: O36.63X0 Maternal care for excessive fetal growth, third trimester, not applicable or unspecified (principal); Z3A.37 37 weeks gestation of pregnancy
CPT/HCPCS: 76816

== ENCOUNTER 2023-12-26 06:53 | Outpatient (OUT) | payer OTHER, SELFPAY ==
--- OUTSIDE RECORDS SUMMARY | 2023-12-26 06:55 | XMS_ITS | CCD ---
Author Organization [employer] Care Team Providers Care Bridge Builder Name Role Phone Deonna Back Unavailable DEFJAILENE, ADRYAN Primary Care Physician [phone] LESLEY, DR LUIS ANTONIO Jorge Consulting Unavailable [...] Unavailable Defrance Adryan OBRIEN Primary Care Provider [phone] CYDNEY LEOS Attending Unavailable CYDNEY LEOS Attending Unavailable DEVAN TELLO Attending Unavailable DEVAN TELLO Attending Unavailable CYDNEY LEOS Attending Unavailable DEVAN TELLO Attending Unavailable Allergies Allergy Classification Reported Allergen(s) Allergy Type Date of Onset Reaction(s) Facility (3 sources) Sulfacetamide Drug Allergy rash [facility] Other (1 source) Sulfonamides (Antibiotic); Translations: [sulfa drugs] Drug allergy Hyperpyrexia (finding) [facility] (1 source) Sulfonamides (Antibiotic) Drug allergy (disorder) 07-26-20 14 [facility] (3 sources) Sulfonamides (Antibiotic) Drug [...] BY MOUTH EVERY MORNING 0 10/06/2023 Active [id number]-Wyarno-3 ( Gummies/DHA & FA) 0.4-32.5 MG chewable tablet (3 sources) Start: 06-19-2023 End: 06-18-2024 PW-Myd-QN-Wyarno-3 ( Gummies/DHA & FA) 0.4-32.5 MG chewable tablet Indications: Missed menses Chew 32.5 mg in the morning. 30 tablet 11 06/19/2023 06/18/2024 Active Completed/Discontinued Medications Medication Drug Class(es) Dates Sig (Normalized) Sig (Original) [id number] 200 actuat albuterol 0.09 mg/actuat metered dose [...] / neomycin 3.5 mg/ml / polymyxin b [id number] unt/ml otic suspension (3 sources) Aminoglycoside Antibacterial, Polymyxin-class Antibacterial, Corticosteroid Start: 04-02-2022 Neomycin-Polymyx in-HC 3.5-51685-1 3 drops left ear Three times a [...] UA Negative Negative - 4(70) +++ mg/dL [facility] Blood, UA Negative Negative - 50 Cedric/mcL [facility] Clarity, UA Clear [facility] re Color, UA Yellow [facility] Glucose, [facility]A Negative Negative - 1999(110) ++++ mg/dL [facility] Interpretation and review of laboratory results Normal [facility] Ketones, UA Negative Negative - 160(16) ++++ mg/dL [facility] Leukocytes, UA Negative Negative - 500+++ Alessandro/mcL [facility] Nitrite, UA Negative Negative - Positive [facility] pH, UA 6.0 5 - 9 [facility] e Protein, UA Negative Negative - 1999(20) ++++ mg/dL [facility] Spec Grav, UA 1.020 1 - 1.03 [facility] Urobilinogen, UA 0.2 0.2 - 12 mg/dL [facility] ALL CBC WITH AUTO DIFFon BASOPHILS ABSOLUTE AUTO 0.0 [facility] Basophils/100 WBC (Bld) 0.3 % 0.2 - 2.0 % [facility] Eosinophils/100 WBC (Bld) 1.0 % 0.9 - 7.0 % [facility] Erythrocyte distribution width (RBC) [Ratio] 12.5 % 11.0 - 15.0 % [facility] Hematocrit (Bld) [Volume fraction] 35.1 % Low 36.0 - 48.0 % [facility] Hemoglobin (Bld) [Mass/Vol] 11.7 g/dL Low 12.0 - 16.0 g/dL [facility] IMMATURE GRANULOCYTES ABS AUTO 0.08 High [facility] Immature granulocytes/100 WBC (Bld) 0.6 % High 0.0 - 0.5 % [facility] Interpretation and review of laboratory results Abnormal [facility] LYMPHOCYTES ABSOLUTE AUTO 1.6 [facility] Lymphocytes/100 WBC (Bld) 11.9 % Low 20.5 - 60.0 % [facility] MCH (RBC) [Entitic mass] 30.7 pg 26.7 - 34.0 pg [facility] MCHC (RBC) [Mass/Vol] 33.3 g/dL 29.9 - 35.2 g/dL [facility] MCV (RBC) [Entitic vol] 92.1 fL 81.0 - 99.0 fL [facility] MONOCYTES ABSOLUTE AUTO 0.8 [facility] Monocytes/100 WBC (Bld) 5.5 % 1.7 - 12.0 % [facility] NEUTROPHILS ABSOLUTE AUTO 11.1 High [facility] Neutrophils/100 WBC (Bld) 80.7 % High 43.0 - 75.0 % [facility] Platelet mean volume (Bld) [Entitic vol] 10.6 fL 9.5 - 13.5 fL [facility] are [facility] EO # 0.1 [facility] PLT 292 [facility] RBC 3.81 Low [facility] WBC 13.8 High [facility] CBC AUTO DIFFon 09-14-2022 BASO # 0.0 103/ul Normal 0.0-0.1 [facility] Comment on above: Performed By: #### B GURPREET, TSH #### [facility] [address] [place] [address] Dr. Reema Mireles Basophils/100 WBC (Bld) 0.6 % Normal 0.2-2.0 [facility] Comment on above: Performed By: #### B GURPREET, TSH #### [facility] [address] [place] [address] Dr. Reema Mireles EO # 0.0 103/ul Normal 0.0-0.7 [facility] Comment on above: Performed By: #### B GURPREET, TSH #### [facility] [address] [place] [address] Dr. Reema Mireles Eosinophils/100 WBC (Bld) 0.6 % Critically low 0.9-7.0 [facility] Comment on above: Performed By: #### B GURPREET, TSH #### [facility] [address] [place] [address] Dr. Reema Mireles Erythrocyte distribution width (RBC) [Ratio] 11.9 % Normal 11.0-15.0 [facility] Comment on above: Performed By: #### B GURPREET, TSH #### [facility] [address] [place] [address] Dr. Reema Mireles Hematocrit (Bld) [Volume fraction] 37.8 % Normal 36.0-48.0 [facility] Comment on above: Performed By: #### Inna VÁZQUEZ, TSH #### [facility] [address] [place] [address] Dr. Reema Mireles Hemoglobin (Bld) [Mass/Vol] 13.5 g/dL Normal 12.0-16.0 [facility] Comment on above: Performed By: #### Inna VÁZQUEZ, TSH #### [facility] [address] [place] [address] Dr. Reema Mireles IG # 0.01 10e3/ul Normal 0.00-0.03 [facility] Comment on above: Performed By: #### Inna VÁZQUEZ, TSH #### [facility] [address] [place] [address] Dr. Reema Mireles IG % 0.2 % Normal 0.0-0.5 [facility] Comment on above: Performed By: #### B GURPREET, TSH #### [facility] [address] [place] [address] Dr. Reema Mireles LYMPH # 1.6 103/ul Normal 1.2-3.8 [facility] Comment on above: Performed By: #### B GURPREET, TSH #### [facility] [address] [place] [address] Dr. Reema Mireles Lymphocytes/100 WBC (Bld) 25.5 % Normal 20.5-60.0 [facility] Comment on above: Performed By: #### Inna VÁZQUEZ, TSH #### [facility] [address] [place] [address] Dr. Reema Mireles MANUAL DIFF REQ NO Normal [facility] Comment on above: Performed By: #### B MP, TSH #### [facility] [address] [place] [address] Dr. Reema Mireles MCH (RBC) [Entitic mass] 30.9 pg Normal 26.7-34.0 [facility] Comment on above: Performed By: #### B MP, TSH #### [facility] [address] [place] [address] Dr. Reema Mireles MCHC (RBC) [Mass/Vol] 35.7 g/dL Critically high 29.9-35.2 [facility] Comment on above: Performed By: #### B GURPREET, TSH #### [facility] [address] [place] [address] Dr. Reema Mireles MCV (RBC) [Entitic vol] 86.5 fL Normal 81.0-99.0 [facility] Comment on above: Performed By: #### B GURPREET, TSH #### [facility] [address] [place] [address] Dr. Reema Mireles MONO # 0.5 103/ul Normal 0.3-0.8 [facility] Comment on above: Performed By: #### B GURPREET, TSH #### [facility] [address] [place] [address] Dr. Reema Mireles Monocytes/100 WBC (Bld) 8.5 % Normal 1.7-12.0 [facility] Comment on above: Performed By: #### B GURPREET, TSH #### [facility] [address] [place] [address] Dr. Reema Mireles NEUT # 4.1 103/ul Normal 1.4-6.5 [facility] Comment on above: Performed By: #### B MP, TSH #### [facility] [address] [place] [address] Dr. Reema Mireles Neutrophils/100 WBC (Bld) 64.6 % Normal 43.0-75.0 [facility] Comment on above: Performed By: #### B GURPREET, TSH #### [facility] [address] [place] [address] Dr. Reema Mireles Platelet mean volume (Bld) [Entitic vol] 9.9 fL Normal 9.5-13.5 [facility] Comment on above: Performed By: #### B MP, TSH #### [facility] [address] [place] [address] Dr. Reema Mireles PLT 403 103/ul Normal 150-450 [facility] Comment on above: Performed By: #### B MP, TSH #### [facility] [address] [place] [address] Dr. Reema Mireles RBC 4.37 106/ul Normal 4.20-5.40 [facility] Comment on above: Performed By: #### B MP, TSH #### [facility] [address] [place] [address] Dr. Reema Mireles WBC 6.3 103/ul Normal 4.0-11.0 [facility] Comment on above: Performed By: #### B MP, TSH #### [facility] [address] [place] [address] Dr. Reema Mireles PROF 14(COMP METB)on 022 Albumin [Mass/Vol] 4.3 g/dL Normal 3.4-5.0 [facility] Comment on above: Performed By: #### B MP, TSH #### [facility] [address] [place] [address] Dr. Reema Mireles Albumin/Globulin [Mass ratio] 1.2 {ratio} Normal [facility] Comment on above: Performed By: #### B MP, TSH #### [facility] [address] [place] [address] Dr. Reema Mireles ALP [Catalytic activity/Vol] 79 U/L Normal 46-116 [facility] Comment on above: Performed By: #### B MP, TSH #### [facility] [address] [place] [address] Dr. Reema Mireles ALT [Catalytic activity/Vol] 31 U/L Normal 14-59 [facility] Comment on above: Performed By: #### B MP, TSH #### [facility] [address] [address] [address] Reema Mrieles Anion gap [Moles/Vol] 12.1 mmol/L Normal [facility] Comment on above: Performed By: #### B MP, TSH #### [facility] [address] [place] [address] Dr. Reema Mireles AST [Catalytic activity/Vol] 17 U/L Normal 15-37 [facility] Comment on above: Performed By: #### B MP, TSH #### [facility] [address] [place] [address] Dr. Reema Mireles Bilirubin [Mass/Vol] 0.4 mg/dL Normal 0.2-1.0 [facility] Comment on above: Performed By: #### B GURPREET, TSH #### [facility] [address] [place] [address] Dr. Reema Mireles Calcium [Mass/Vol] 8.9 mg/dL Normal 8.5-10.[address] [facility] Comment on above: Performed By: #### B GURPREET, TSH #### [facility] [address] [place] [address] Dr. Reema Mireles Chloride [Moles/Vol] 98 mmol/L Normal 98-107 [facility] Comment on above: Performed By: #### B GURPREET, TSH #### [facility] [address] [place] [address] Dr. Reema Mireles CO2 [Moles/Vol] 27.0 mmol/L Normal 21.0-32.0 [facility] Comment on above: Performed By: #### B GURPREET, TSH #### [facility] [address] [place] [address] Dr. Reema Mireles Creatinine [Mass/Vol] 0.65 mg/dL Normal 0.55-1.02 [facility] Comment on above: Performed By: #### B GURPREET, TSH #### [facility] [address] [place] [address] Dr. Reema Mireles EGFR-AF SUDANESE >60 Normal >=60 [facility] Comment on above: Performed By: #### B GURPREET, TSH #### [facility] [address] [address] [address] Reema Mireles EGFR-NON AF SUDANESE >60 Normal >=60 [facility] Comment on above: Performed By: #### B GURPREET, TSH #### [facility] [address] [address] [address] Reema Mireles Globulin (S) [Mass/Vol] 3.5 g/dL Normal [facility] Comment on above: Performed By: #### B GURPREET, TSH #### [facility] [address] [address] [address] Reema Mireles Glucose [Mass/Vol] 106 mg/dL Normal 74-106 [facility] Comment on above: Performed By: #### B GURPREET, TSH #### [facility] [address] [address] [address] Reema Mireles Potassium [Moles/Vol] 3.1 mmol/L Critically low 3.5-5.1 [facility] Comment on above: Performed By: #### B GURPREET, TSH #### [facility] [address] [place] [address] Dr. Reema Mireles Protein [Mass/Vol] 7.8 g/dL Normal 6.4-8.[address] [facility] Comment on above: Performed By: #### B GURPREET, TSH #### [facility] [address] [place] [address] Dr. Reema Mireles Sodium [Moles/Vol] 134 mmol/L Critically low 136-145 [facility] Comment on above: Performed By: #### B GURPREET, TSH #### [facility] [address] [place] [address] Dr. Reema Mireles Urea nitrogen [Mass/Vol] 6.0 mg/dL Critically low 7.0-18.0 [facility] Comment on above: Performed By: #### B GURPREET, TSH #### [facility] [address] [place] [address] Dr. Reema Mireles Urea nitrogen/Creatinine [Mass ratio] 9.2 mg/mg Normal [facility] Comment on above: Performed By: #### B GURPREET, TSH #### [facility] [address] [place] [address] Dr. Reema Mireles ACETONE SERUMon 08-11-2022 ACETONE Negative Normal NEGATIVE [facility] Comment on above: Performed By: #### B MP, TSH #### [facility] [address] [place] [address] Dr. Reema Mireles CBC AUTO DIFFon 08-11-2022 BASO # 0.1 103/ul Normal 0.0-0.1 [facility] Comment on above: Performed By: #### B MP, TSH #### [facility] [address] [place] [address] Dr. Reema Mireles Basophils/100 WBC (Bld) 0.5 % Normal 0.2-2.0 [facility] Comment on above: Performed By: #### B GURPREET, TSH #### [facility] [address] [place] [address] Dr. Reema Mireles EO # 0.1 103/ul Normal 0.0-0.7 [facility] Comment on above: Performed By: #### B GURPREET, TSH #### [facility] [address] [place] [address] Dr. Reema Mireles Eosinophils/100 WBC (Bld) 0.7 % Critically low 0.9-7.0 [facility] Comment on above: Performed By: #### B GURPREET, TSH #### [facility] [address] [place] [address] Dr. Reema Mireles Erythrocyte distribution width (RBC) [Ratio] 11.7 % Normal 11.0-15.0 [facility] Comment on above: Performed By: #### B GURPREET, TSH #### [facility] [address] [place] [address] Dr. Reema Mireles Hematocrit (Bld) [Volume fraction] 37.6 % Normal 36.0-48.0 [facility] Comment on above: Performed By: #### B GURPREET, TSH #### [facility] [address] [place] [address] Dr. Reema Mireles Hemoglobin (Bld) [Mass/Vol] 13.1 g/dL Normal 12.0-16.0 [facility] Comment on above: Performed By: #### B MP, TSH #### [facility] [address] [place] [address] Dr. Reema Mireles IG # 0.02 10e3/ul Normal 0.00-0.03 [facility] Comment on above: Performed By: #### B MP, TSH #### [facility] [address] [place] [address] Dr. Reema Mireles IG % 0.2 % Normal 0.0-0.5 [facility] Comment on above: Performed By: #### B MP, TSH #### [facility] [address] [place] [address] Dr. Reema Mireles LYMPH # 2.7 103/ul Normal 1.2-3.8 [facility] Comment on above: Performed By: #### B MP, TSH #### [facility] [address] [place] [address] Dr. Reema Mirelse Lymphocytes/100 WBC (Bld) 28.5 % Normal 20.5-60.0 [facility] Comment on above: Performed By: #### B MP, TSH #### [facility] [address] [place] [address] Dr. Reema Mireles MANUAL DIFF REQ NO Normal [facility] [place] Comment on above: Performed By: #### B MP, TSH #### [facility] [address] [place] [address] Dr. Reema Mireles MCH (RBC) [Entitic mass] 30.3 pg Normal 26.7-34.0 [facility] Comment on above: Performed By: #### B MP, TSH #### [facility] [address] [place] [address] Dr. Reema Mireles MCHC (RBC) [Mass/Vol] 34.8 g/dL Normal 29.9-35.2 [facility] Comment on above: Performed By: #### B MP, TSH #### [facility] [address] [place] [address] Dr. Reema Mireles MCV (RBC) [Entitic vol] 87.0 fL Normal 81.0-99.0 [facility] Comment on above: Performed By: #### B MP, TSH #### [facility] [address] [address] [address] Reema Mireles MONO # 0.8 103/ul Normal 0.3-0.8 [facility] Comment on above: Performed By: #### B MP, TSH #### [facility] [address] [place] [address] Dr. Reema Mireles Monocytes/100 WBC (Bld) 8.2 % Normal 1.7-12.0 [facility] Comment on above: Performed By: #### B MP, TSH #### [facility] [address] [place] [address] Dr. Reema Mireles NEUT # 5.9 103/ul Normal 1.4-6.5 [facility] Comment on above: Performed By: #### B MP, TSH #### [facility] [address] [place] [address] Dr. Reema Mireles Neutrophils/100 WBC (Bld) 61.9 % Normal 43.0-75.0 [facility] Comment on above: Performed By: #### B MP, TSH #### [facility] [address] [place] [address] Dr. Reema Mireles Platelet mean volume (Bld) [Entitic vol] 10.2 fL Normal 9.5-13.5 [facility] Comment on above: Performed By: #### B MP, TSH #### [facility] [address] [place] [address] Dr. Reema Mireles PLT 382 103/ul Normal 150-450 [facility] Comment on above: Performed By: #### B MP, TSH #### [facility] [address] [place] [address] Dr. Reema Mireles RBC 4.32 106/ul Normal 4.20-5.40 [facility] Comment on above: Performed By: #### B MP, TSH #### [facility] [address] [place] [address] Dr. Reema Mireles WBC 9.6 103/ul Normal 4.0-11.0 [facility] Comment on above: Performed By: #### B MP, TSH #### [facility] [address] [place] [address] Dr. Reema Mireles CRPon 08-11-2022 CRP [Mass/Vol] mg/L Normal <=1.0 [facility] Comment on above: Performed By: #### B MP, TSH #### [facility] [address] [place] [address] Dr. Reema Mireles ER URINE PROFILEon Bilirubin Ql (U) Negative Normal NEGATIVE [facility] Comment on above: Performed By: #### B MP, TSH #### [facility] [address] [place] [address] Dr. Reema Mireles Clarity (U) CLEAR Normal CLEAR [facility] Comment on above: Performed By: #### B MP, TSH #### [facility] [address] [place] [address] Dr. Reema Mireles Color (U) LT. YELLOW Normal YELLOW [facility] Comment on above: Performed By: #### B MP, TSH #### [facility] [address] [place] [address] Dr. Reema RICHARDSONJohana A micrscopic examination will be performed if indicated. Normal [facility] Comment on above: Performed By: #### B MP, TSH #### [facility] [address] [place] [address] Dr. Reema Mireles Glucose Ql (U) Negative Normal NEGATIVE [facility] Comment on above: Performed By: #### B MP, TSH #### [facility] [address] [place] [address] Dr. Reema Mireles Hemoglobin Ql (U) Negative Normal NEGATIVE [facility] Comment on above: Performed By: #### B MP, TSH #### [facility] [address] [place] [address] Dr. Reema Mireles Ketones Ql (U) Negative Normal NEGATIVE [facility] Comment on above: Performed By: #### B MP, TSH #### [facility] [address] [place] [address] Dr. Reema Mireles LEUKOCYTES Negative Normal NEGATIVE [facility] Comment on above: Performed By: #### B MP, TSH #### [facility] [address] [place] [address] Dr. Reema Mireles Nitrite Ql (U) Negative Normal NEGATIVE [facility] Comment on above: Performed By: #### B MP, TSH #### [facility] [address] [place] [address] Dr. Reema Mireles pH (U) 5.5 [pH] Normal 5-9 [facility] Comment on above: Performed By: #### B MP, TSH #### [facility] [address] [place] [address] Dr. Reema Mireles SPEC GRAVITY <=1.005 Abnormal 1.005-<=1.025 [facility] [place] Comment on above: Performed By: #### B MP, TSH #### [facility] [address] [place] [address] Dr. Reema Mireles UA PROTEIN Negative Normal NEGATIVE/ TRACE [facility] Comment on above: Performed By: #### B MP, TSH #### [facility] [address] [place] [address] Dr. Reema Mireles UR MICRO IND NOT INDICATED Normal [facility] Comment on above: Performed By: #### B MP, TSH #### [facility] [address] [place] [address] Dr. Reema Mireles Urobilinogen Qn (U) 0.2 {Renny'U}/dL Normal 0.2 - 1. 0 [facility] Comment on above: Performed By: #### B MP, TSH #### [facility] [address] [place] [address] Dr. Reema Mireles LIPASEon 08-11-2022 Lipase [Catalytic activity/Vol] 71.0 U/L Critically low 73.0-393.0 [facility] Comment on above: Performed By: #### B MP, TSH #### [facility] [address] [place] [address] Dr. Reema Mireles URon 08-11-2022 , QUAL Negative Normal NEGATIVE [facility] Comment on above: Performed By: #### C VDTBH #### [facility] [address] [address] [address] Reema Mireles PROF 14(COMP METB)on 022 Albumin [Mass/Vol] 4.3 g/dL Normal 3.4-5.0 [facility] Comment on above: Performed By: #### B MP, TSH #### [facility] [address] [address] [address] Reema Mireles Albumin/Globulin [Mass ratio] 1.2 {ratio} Normal [facility] Comment on above: Performed By: #### B MP, TSH #### [facility] [address] [address] [address] Reema Mireles ALP [Catalytic activity/Vol] 70 U/L Normal 46-116 [facility] Comment on above: Performed By: #### B MP, TSH #### [facility] [address] [place] [address] Dr. Reema Mireles ALT [Catalytic activity/Vol] 16 U/L Normal 14-59 [facility] Comment on above: Performed By: #### B MP, TSH #### [facility] [address] [address] [address] Reema Mireles Anion gap [Moles/Vol] 10.5 mmol/L Normal [facility] Comment on above: Performed By: #### B MP, TSH #### [facility] [address] [address] [address] Reema Mireles AST [Catalytic activity/Vol] 8 U/L Critically low 15-37 [facility] Comment on above: Performed By: #### B MP, TSH #### [facility] [address] [address] [address] Reema Mireles Bilirubin [Mass/Vol] 0.3 mg/dL Normal 0.2-1.0 [facility] Comment on above: Performed By: #### B MP, TSH #### [facility] [address] [address] [address] Reema Mireles Calcium [Mass/Vol] 9.0 mg/dL Normal 8.5-10.[address] [facility] Comment on above: Performed By: #### B MP, TSH #### [facility] [address] [address] [address] Reema Mireles Chloride [Moles/Vol] 104 mmol/L Normal 98-107 [facility] Comment on above: Performed By: #### B MP, TSH #### [facility] [address] [address] [address] Reema Mireles CO2 [Moles/Vol] 26.5 mmol/L Normal 21.0-32.0 [facility] Comment on above: Performed By: #### B MP, TSH #### [facility] [address] [address] [address] Reema Mireles Creatinine [Mass/Vol] 0.79 mg/dL Normal 0.55-1.02 [facility] Comment on above: Performed By: #### B MP, TSH #### [facility] [address] [address] [address] Reema Mireles EGFR-AF SUDANESE >60 Normal >=60 [facility] Comment on above: Performed By: #### B MP, TSH #### [facility] [address] [address] [address] Reema Mireles EGFR-NON AF SUDANESE >60 Normal >=60 [facility] Comment on above: Performed By: #### B MP, TSH #### [facility] [address] [address] [address] Reema Mireles Globulin (S) [Mass/Vol] 3.5 g/dL Normal [facility] Comment on above: Performed By: #### B MP, TSH #### [facility] [address] [address] [address] Reema Mireles Glucose [Mass/Vol] 106 mg/dL Normal 74-[address] [facility] Comment on above: Performed By: #### B MP, TSH #### [facility] [address] [address] [address] Reema Mireles Potassium [Moles/Vol] 3.0 mmol/L Critically low 3.5-5.1 [facility] Comment on above: Performed By: #### B MP, TSH #### [facility] [address] [place] [address] Dr. Reema Mireles Protein [Mass/Vol] 7.8 g/dL Normal 6.4-8.2 [facility] Comment on above: Performed By: #### B MP, TSH #### [facility] [address] [place] [address] Dr. Reema Mireles Sodium [Moles/Vol] 138 mmol/L Normal 136-[address] [facility] Comment on above: Performed By: #### B MP, TSH #### [facility] [address] [place] [address] Dr. Reema Mireles Urea nitrogen [Mass/Vol] 8.0 mg/dL Normal 7.0-18.0 [facility] Comment on above: Performed By: #### B MP, TSH #### [facility] [address] [place] [address] Dr. Reema Mireles Urea nitrogen/Creatinine [Mass ratio] 10.1 mg/mg Normal [facility] Comment on above: Performed By: #### B MP, TSH #### [facility] [address] [place] [address] Dr. Reema Mireles PROTIMEon 08-11-2022 INR Coag (PPP) [Relative time] 1.00 {INR} Normal [facility] Comment on above: Performed By: #### P T, PTT #### [facility] [address] [place] [address] Dr. Reema Mireles INR GUIDELINES SEE BELOW Normal [facility] Comment on above: Result Comment: FELICIANO RED INR: 2.0 - 3.0 CONDITIONS NOT LISTED BELOW 2.5 - 3.5 FOR PROSTHETIC HEART VALVE REPLACEMENT 2.5 - 3.5 RECURRENT THROMBOSIS Performed By: #### P T, PTT #### [facility] [address] [place] [address] Dr. Reema Mireles PT Coag (PPP) [Time] 10.8 s Normal 9.0-11.6 [facility] Comment on above: Performed By: #### P T, PTT #### [facility] [address] [address] [address] Reema Mireles PTTon 08-11-2022 aPTT Coag (Bld) [Time] 30.8 s Normal 22.3-36.2 [facility] Comment on above: Performed By: #### P T, PTT #### [facility] [address] [place] [address] Dr. Reema Mireles [facility] 10 mm/hr Normal <=20 [facility] Comment on above: Performed By: #### B MP, TSH #### [facility] [address] [place] [address] Dr. Reema Mireles TSHon 08-11-2022 TSH 3.313 uIU/mL Normal 0.358-3.740 [facility] Comment on above: Performed By: #### B MP, TSH #### [facility] [address] [place] [address] Dr. Reema Mireles Discharge Instructionson Discharge Instructions [id number] #1.00CD:[address] [facility] Comment on above: Other Comment: wrong patient STOOL CULTUREon 04-20-2022 Campylobacter Culture Final report Normal [facility] Comment on above: Performed By: #### B MP, TSH #### [facility] [address] [place] [address] Dr. Reema Mireles E coli Shiga Toxin EIA Negative Normal Negative [facility] Comment on above: Performed By: #### B MP, TSH #### [facility] [address] [place] [address] Dr. Reema Mireles Result [address] [facility] Comment on above: Result Comment: No S almonella or Shigella recovered. Performed By: #### B MP, TSH #### [facility] [address] [place] [address] Dr. Reema Mireles Result Comment: No C ampylobacter species isolated. Salmonella/Shigella Screen Final report Normal [facility] Comment on above: Performed By: #### B MP, TSH #### [facility] [address] [place] [address] Dr. Reema Mireles Coding Summary.on 04-14-2022 Coding Summary. CD:[id number] Gh0bWw+PGhlYWQ+PE1FV ANnP21odTDjvJ1DA3qSZ H1IYLLVEQOOYB5VQW0ta RG1YCneA7KghbKc MyiipZTkNN31YDq5KKB9 sTaaCMasxB6dvJPuB7r6 DwHrZO71gU62VYulEVRy EfF0AaNqhadfxLSp F7qiWuLfpVEpMlt+PHRh YmxlIHdpZHRoPScxMDAl VqNyaIgmWX8vWt6lWSRo LWNvbGxhcHNlOiBj l1vlCHUfHExtUL1tsTrl D8SkxIJ5WQDnx0o6Pg46 dHI+RZRbDBU1jUjaBEkn p992AaXdf5ddWTC1 rVDxEVmjCKG6F10ry9K8 QTLcRZOgPGT7xIP6oT5z lYuqtpsbM5JhiBLzXwW4 GDS4rJAteN1atEyy ensdoI1nOul+F97ELZ2Q ODFHKO4NNae2K8TbBgwv dHI+PS71TGDhCL34xOCw rLQfu2netTm2HeAn WVBnHGM2yByoNXhhb0Uw JBDsW38gkYBku7I8ASDe oKereLEiRqLqoUQ8yO5x XVlbaxmxe8dfqqvr Wzntz3pfbe81iC51F32b KWuhJDNiUYM2QHMhJTQx rFjuua9meJ6jXq9+IDxj s7xej0ldmFh8XjRf XSLucyDpeFzpZCZ9p0Rt Jz06Q6GcdSilk3YaDyu9 pf55iPMzu1T1gOO4BDei WLOqpC8mAQunBgF2 OWYtPfXcpY88cGJtXNid Ea1kkKmifHveCD5xRSTd yaapJFFhyU4tRDEegVUd iDuzIJ0uSVFyoxkl d431NaWyKKX6UYJnuATy C3VktX1iBeSoVZFdXTJi P5NcgLTtTFlyY779WSwe XoA8FYRxzfFnO2Ej GYPmpJaaWbY4y4N5Kl7B d2WzjlmkCPO3URnfQDX9 PmW5LsHqWhQ1H3FhSst6 EUWrjNmlQH9qB4Ya FMMuldbzqqvitVD0NNAr NHVvuN34xDCuEWcbAx8s g2T7s098ERUdUSVglB22 Cx8gvSsvILEfzBZH hR1voksna0crjpzgGnCo YQWoRWk8BQq8YAIpjMgc IcRrGZH9RaW7MZC4uEOe nY8cqNqfwqgnxP5u Oyc+W92ojX4fRZL5DVV0 yisrVYMbdlUvOB30GO35 R0GjPlogrKLcaJT+PGRp jjBbsSosSB9eLjKy e4qde8VmROxhM2XnQTUd ZIjkNbl0PXHiOOL0xIP0 nS9oXCSvVShti8M3uOT9 Z4HwpeDsln7ma2vo TJXyUGocS69kyYPpe2J8 RAOmeFP6FOKeqFysRnQr vZ81Daa+IFEqcMucy4Xi Qqhkx9mdv9tyhGp1 IjMwJSIgdmFsaWduPSJ0 n1QlRd29Y38sKPlfPRYq RRHqLSNhYYDvzQfftv0k bO4wCu6+PGNvbCB3 cGQ7sL8nQZFtHeU9IBkj Q006VgQlhDSsIetnh2ta b5jerQg4CvPiXKNcwsPt yUlxYGI4f1ArEm11 P20wGHxsPQFhWPHfVQOh LRAjsLqfej4zcR6iDx6+ CM8et0xvde27uL58wYB+ KUIvNJI0oOthLPat UAAogX4iPUmuGtE6TDLn ZnBgeN38hEMcIJxaWv5t uScmbDqsTA9pIOZncykz d991DpZpu3fiCMWk lDGnCRhfOPA8M41pe7T8 HNPhMJLsETT8nTV5rO5m bGlnbjogbGVmdDsgdmVy vXanFRcaMAcyS317 IHRvcDsnPlBhdGllbnQg DpBoOEg1U9DzYst1JAKz yOibML6esOZmDAtyOi6n hDyeaKfqJW3jHFDq vnvbs183CfNwv9pgWFYl aADgRIekIZE9Z98zm1F3 AAPwFKJfCBX7fUQ2tJ6w bGlnbjogbGVmdDsg jiFhbZgpFVjrCWasA253 IHRvcDsnPkJpcnRoIERh nWC1FX56CQ85mTMbe6O9 jYC7K5OoNMGvruto qcnxpYX5WAWzSQPdcJ65 Hc8jgIreIe2nYKWcROB8 JEZmtCKoP7GcvK1wWlSd BIMkDBIfK9CkqAXj UQwvB940KXjvArE9HIHw ixAoB8SuZMLkpXqcEwG1 i8X7Xi1BR3X6IS32IW61 dPCyx3D5hVQ1V8Af TPAtmfxegptxbLP7FGCk GWYopD33Gb7zmHciDp9c KGZoMVO6VXPsmYRkI6Uu jU9iRcDuXDCvETZw M4CvvFWqDYmeD707CSfc KzR2BARbkzAaW1KmXLSz wScxXnV1b4P5Sr4MOYd2 OW01KO61vKMor5E8 fXQ0X0WxAPZorqwvasfw rNR0QIOnWBImbZ48Cp7n lFfePm3lVLPgZOU2PNTl yNEbQ1NijN0gEjUo XGTfJTIrC8AibWZeRAyx Q430GEttYqA8LTPgdyLe F8UyETAawVttWuA7s9G8 Yr9UEROgGW20VSE5 aWR2SO55FR39T1WbBpab dGFibGU+PHRhYmxlIHdp ZHRoPScxMDAlJyBzdHls CX4vIk9gHVZyBPDg eCppvKPjQuBgw1ijGPUq XKofFP0nqTiwJ1VdtIQ2 TMOrg2o9Os67S75fI7Mj dXA+PXPyxXL3hKB2 wL9zHaXfCbL2LPfmQ142 DwIsrRTmQblik8wcd1ky qEx2YzD5SDSmmpLlzSex BBK4d1AlFy01A95u IHdpZHRoPSIxNSUiIHZh dJrfgw7adY6zJk7+PGNv qPM8rRM4mG6qLhPaNgG5 JKcdM280IvPllDLg Kucsh5toz7jhmQf0BrXv WOSarwLwqLghVDX2h7Cy Ct74K7FcnKeko1GqPbq5 gv58dBRco3E0tZU5 Q5TdBYLseurqoWQooOde TH8nFTLpdtjfMRUewK5c UYYiX5r0IiCxOrL6JRog W1CegsR2LSKkvUCs FHvzIAR6A42js0V9XBVm ZNGgSKC1bET3eX9cqNtj bjogbGVmdDsgdmVydGlj DXbuBFalS351BSSw lFesHSShdS5jHQSdfTTt tBntHF4jSNYpncrzGpkO APITH23EC9yHGPLDIIVE KHY7L7NvFeu5BWLx eJxqJH8ekAKdFXmcAk0c vTohjGgfAF3lRPRbnask MZSiyN4mNFHoxRQxpGrw DH6fILXcksnft522 JpHjBMC2VBNtaQThD8An oX3aMqCuSMNrZNKuV6Go vGQlPTvbD085JHzjQgM4 XDYkprFiW0WtJUQu fRfnNsI2w2T4Js9gUt9z QK0fRJVzZZ18NN52hDPc j0D9rFA5T3XsVKGwlyac huhstUX1PSDfXEYv kX31hRMpJIpzCd4ln2Y0 c756OIEqWRCwyN81Bt1o kTbuTYTcpKTInH7dqfzz e3bnhgnkWxGiLQWk EXe2MTz0EDOneQsiXsQm EGF9ZlA3TYD9sLTtpT7j lLeruxdyhR1yEej+MjAg LVItquS4T7YgIcz1 YMAxuQnqBD3dbNHpQIqu Ys4cpVomhPerUL1nUWAx dppeXFQivN2eBLOtdGFd aTsdSJ4dTYYnhfar q282JsRsRIN5IKFdpDJt Z6UjbJ9iQfWaLNKlLDOj R0SbvKDlZVbhZ185XJpz EsZ9PAWyjhLjC3Ik IIKldFgbOvK2u4W3Is2C EK9syPL6K1JdGfe7WTLx pUmrOO3fcFDwFSdsFt8m rCkvoXtyXF8oXELk pcfoBGKmrA3wCDSogMQq eHndKQ6wCSIevwjuu972 SbTcQLX2HZYlfEUbX2Hf gY9dYlCrEHPqQSUa C3ZjoXNeRNaaI346VKzv WbT4FPGzhrAmM5EiKCFb bJehBfR6v3U4Ix1NwXLn Z9CkE5z9J1WgKczy dHI+TZ00WSCxNW39tYYq vUGgg2nvmGq8NrSeFLTf ZSV3yLfhDXdkg3PiCLBm K97yiGTns0E7TYAk pZuyiRKqPwPzfMB9uS8w BPbvxtwdm3tyksfiJvfd f5kxwe67mE57W30oJKuv ZHRoPSIzMCUiIHZh sQjdvd3orP0pJg7+PGNv mNI2fRH3tE4uPnSbOjK5 VAvkG536JxYqhUHgIhbv v3hgd2pzbHy4YsQg IRSuowPlgSdqWSZ4l9Sc Ax77I46yEVcqIPFiINDo MQHeORBgpBahno6cyY8w Ii8+OZ5yw4lhuc40 sN85pKK+AKWgIII9sZcn CJapQWFrvT6wPFirBmM0 VWZvTmXkcX42mPIeVYfl Lq6vxFpwbHkuOZ2b QRQxdgpaj392HzTxl2me BQBdkOIvVEzqVHO8S78w x2H2DBTqFYZqKMS9fZJ7 rV4ofOqhgzdvxIWb dDsgdmVydGljYWwtYWxp I675NDWalCzbPzQwlBXp Q7swhcAZDM4hItukyLB+ SJHxHUW1rKqxMOme GCQplM3iZEHfS3d0IqOj WqH0WNviQ2KonyY8XKRy uGDkWOHzuANXeW3actuk y3cljcryWwZeLUIk IUv7DPc7DAHtoPyjIpAz IQS7KvS7ACP7jVDvxC9t oAujkiahgG9fHux+RklO OjwvdGQ+PHRkIHN0 uLwqXJmbTVGiwQ4oGBIw N2c0XxZqGwU8APbaU4Mx opU8SORhiQEdYQLuoUUZ mQ4vdxdbr8ffyhsy CrXgARAaPAa3ZNc7MEJs fBukDkMxPRL8AkR1NSM3 wGPctG5akZlgsnfbhH7f Oyc+TVJOOjwvdGQ+ GEIdUXK6nZfySZtaBYPd wK0aZPRgX4n9XiRcHyF9 CPosD5HkdwA0YKCwzJJg ZYXyaBYYxQ3jcxsk t1ylnhjqNjCpSEBoOGu3 UMk6CZWaeVogBhEjPZS3 AyL6PZD2aNPxvZ5hmExm qxpkpB0dVsw+UGF5 UNY1NT13RJ52V9VmElzo dGFibGU+PHRhYmxlIHdp ZHRoPScxMDAlJyBzdHls QB9zGf6cKRLtFGVm bGxh (more content not included)... Normal [facility] CBC AUTO DIFFon 04-13-2022 BASO # 0.1 103/ul Normal 0.0-0.1 [facility] Comment on above: Performed By: #### C VDTBH #### [facility] [address] [place] [address] Dr. Reema Mireles Basophils/100 WBC (Bld) 0.6 % Normal 0.2-2.0 [facility] Comment on above: Performed By: #### C VDTBH #### [facility] [address] [place] [address] Dr. Reema Mireles EO # 0.0 103/ul Normal 0.0-0.7 [facility] Comment on above: Performed By: #### C VDTBH #### [facility] [address] [place] [address] Dr. Reema Mireles Eosinophils/100 WBC (Bld) 0.2 % Critically low 0.9-7.0 [facility] Comment on above: Performed By: #### C VDTBH #### [facility] [address] [place] [address] Dr. Reema Mireles Erythrocyte distribution width (RBC) [Ratio] 11.4 % Normal 11.0-15.0 [facility] Comment on above: Performed By: #### C VDTBH #### [facility] [address] [place] [address] Dr. Reema Mireles Hematocrit (Bld) [Volume fraction] 38.3 % Normal 36.0-48.0 [facility] Comment on above: Performed By: #### C VDTBH #### [facility] [address] [place] [address] Dr. Reema Mireles Hemoglobin (Bld) [Mass/Vol] 13.4 g/dL Normal 12.0-16.0 [facility] Comment on above: Performed By: #### C VDTBH #### [facility] [address] [place] [address] Dr. Reema Mireles IG # 0.01 10e3/ul Normal 0.00-0.03 [facility] Comment on above: Performed By: #### C VDTBH #### [facility] [address] [place] [address] Dr. Reema Mireles IG % 0.1 % Normal 0.0-0.5 [facility] Comment on above: Performed By: #### C VDTBH #### [facility] [address] [place] [address] Dr. Reema Mireles LYMPH # 1.8 103/ul Normal 1.2-3.8 [facility] Comment on above: Performed By: #### C VDTBH #### [facility] [address] [place] [address] Dr. Reema Mireles Lymphocytes/100 WBC (Bld) 22.2 % Normal 20.5-60.0 [facility] Comment on above: Performed By: #### C VDTBH #### [facility] [address] [place] [address] Dr. Reema Mireles MANUAL DIFF REQ NO Normal [facility] Comment on above: Performed By: #### C VDTBH #### [facility] [address] [place] [address] Dr. Reema Mireles MCH (RBC) [Entitic mass] 30.6 pg Normal 26.7-34.0 [facility] Comment on above: Performed By: #### C VDTBH #### [facility] [address] [place] [address] Dr. Reema Mireles MCHC (RBC) [Mass/Vol] 35.0 g/dL Normal 29.9-35.2 [facility] Comment on above: Performed By: #### C VDTBH #### [facility] [address] [place] [address] Dr. Reema Mireles MCV (RBC) [Entitic vol] 87.4 fL Normal 81.0-99.0 [facility] Comment on above: Performed By: #### C VDTBH #### [facility] [address] [place] [address] Dr. Reema Mireles MONO # 0.7 103/ul Normal 0.3-0.8 [facility] Comment on above: Performed By: #### C VDTBH #### [facility] [address] [place] [address] Dr. Reema Mireles Monocytes/100 WBC (Bld) 8.2 % Normal 1.7-12.0 [facility] Comment on above: Performed By: #### C VDTBH #### [facility] [address] [place] [address] Dr. Reema Mireles NEUT # 5.5 103/ul Normal 1.4-6.5 [facility] Comment on above: Performed By: #### C VDTB #### [facility] [address] [place] [address] Dr. Reema Mireles Neutrophils/100 WBC (Bld) 68.7 % Normal 43.0-75.0 [facility] Comment on above: Performed By: #### C VDTBH #### [facility] [address] [place] [address] Dr. Reema Mireles Platelet mean volume (Bld) [Entitic vol] 10.1 fL Normal 9.5-13.5 [facility] Comment on above: Performed By: #### C VDTBH #### [facility] [address] [place] [address] Dr. Reema Mireles PLT 404 103/ul Normal 150-450 [facility] Comment on above: Performed By: #### C VDTBH #### [facility] [address] [place] [address] Dr. Reema Mireles RBC 4.38 106/ul Normal 4.20-5.40 [facility] Comment on above: Performed By: #### C VDTBH #### [facility] [address] [place], [place] [address] Dr. Reema Mireles WBC 8.0 103/ul Normal 4.0-11.0 [facility] Comment on above: Performed By: #### C VDTBH #### [facility] [address] [place], [place] [address] HEAD WO CONon [...] AURELIA CARLOS Date: 2022-04-13 16:29 Normal [facility] Discharge Instructionson Discharge Instructions [id number] #1.00CD:[address] [facility] ED Note-Physicianon 04-13-20 ED Note-Physician Basic Information Time Seen: Lata Hardy M.D. 04/12/2022 19:56 Chief Complaint Pt. presents to the ed with c/o headache and vertigo since thursday. Pt. was seen at [facility] and started on prednisone. pt. stopped taking [...] The patient states she was seen at [facility] discharged home. She went to urgent [...] neurological deficit. She has been seen at [facility] and started on prednisone. Possible her [...] ADRYAN MARIE In 3 days 04/15/[address] [place], [place] [id number]- Business (1) Additional Instructions: Return to the [...] Diagnostic Results No qualifying data available. Normal [facility] Comment on above: Result Comment: Elec tronically Signed By: Antony Villa, Lata Baxter\.br\Date and Time Signed: 04/13/22 04:56 EDT ER URINE PROFILEon 2 Bilirubin Ql (U) Negative Normal NEGATIVE [facility] Comment on above: Performed By: #### P REGU, ERUR #### [facility] [address] [place] [address] Dr. Reema Mireles Clarity (U) CLEAR Normal CLEAR [facility] Comment on above: Performed By: #### P REGU, ERUR #### [facility] [address] [place] [address] Dr. Reema Mireles Color (U) LT. YELLOW Normal YELLOW [facility] Comment on above: Performed By: #### P REGU, ERUR #### [facility] [address] [place] [address] Dr. Reema ELIZALDE A micrscopic examination will be performed if indicated. Normal [facility] Comment on above: Performed By: #### P REGU, ERUR #### [facility] [address] [place] [address] Dr. Reema Mireles Glucose Ql (U) Negative Normal NEGATIVE [facility] Comment on above: Performed By: #### P REGU, ERUR #### [facility] [address] [place] [address] Dr. Reema Mireles Hemoglobin Ql (U) Negative Normal NEGATIVE [facility] Comment on above: Performed By: #### P REGU, ERUR #### [facility] [address] [place] [address] Dr. Reema Mireles Ketones Ql (U) Negative Normal NEGATIVE [facility] Comment on above: Performed By: #### P REGU, ERUR #### [facility] [address] [place] [address] Dr. Reema Mireles LEUKOCYTES Negative Normal NEGATIVE [facility] Comment on above: Performed By: #### P REGU, ERUR #### [facility] [address] [place] [address] Dr. Reema Mireles Nitrite Ql (U) Negative Normal NEGATIVE [facility] Comment on above: Performed By: #### P REGU, ERUR #### [facility] [address] [place] [address] Dr. Reema Mireles pH (U) 6.5 [pH] Normal 5-9 [facility] Comment on above: Performed By: #### P REGU, ERUR #### [facility] [address] [place] [address] Dr. Reema Mireles SPEC GRAVITY 1.005 Normal 1.005-<=1.025 [facility] [place] Comment on above: Performed By: #### P REGU, ERUR #### [facility] [address] [place] [address] Dr. Reema Mireles UA PROTEIN Negative Normal NEGATIVE/ TRACE [facility] Comment on above: Performed By: #### P REGU, ERUR #### [facility] [address] [place] [address] Dr. Reema Mireles UR MICRO IND NOT INDICATED Normal [facility] Comment on above: Performed By: #### P REGU, ERUR #### [facility] [address] [place] [address] Dr. Reema Mireles Urobilinogen Qn (U) 0.2 {Renny'U}/dL Normal 0.2 - 1. 0 [facility] Comment on above: Performed By: #### P REGU, ERUR #### [facility] [address] [address] [address] Reema Mireles URon 04-13-2022 , QUAL Negative Normal NEGATIVE [facility] [place] Comment on above: Performed By: #### P REGU, ERUR #### [facility] [address] [address] [address] Reema Mireles PROF CHEM 8 (BAS METB)on Anion gap [Moles/Vol] 14.0 mmol/L Normal [facility] Comment on above: Performed By: #### B MP, TSH #### [facility] [address] [address] [address] Reema Mireles Calcium [Mass/Vol] 9.2 mg/dL Normal 8.5-10.1 [facility] Comment on above: Performed By: #### B MP, TSH #### [facility] [address] [address] [address] Reema Mireles Chloride [Moles/Vol] 102 mmol/L Normal 98-107 [facility] Comment on above: Performed By: #### B MP, TSH #### [facility] [address] [address] [address] Reema Mireles CO2 [Moles/Vol] 26.3 mmol/L Normal 21.0-32.0 [facility] Comment on above: Performed By: #### B MP, TSH #### [facility] [address] [address] [address] Reema Mireles Creatinine [Mass/Vol] 0.65 mg/dL Normal 0.55-1.02 [facility] Comment on above: Performed By: #### B MP, TSH #### [facility] [address] [address] [address] Reema Mireles EGFR-AF SUDANESE >60 Normal >=60 [facility] Comment on above: Performed By: #### B MP, TSH #### [facility] [address] [place] [address] Dr. Reema Mireles EGFR-NON AF SUDANESE >60 Normal >=60 [facility] Comment on above: Performed By: #### B MP, TSH #### [facility] [address] [address] [address] Reema Mireles Glucose [Mass/Vol] 92 mg/dL Normal 74-106 [facility] Comment on above: Performed By: #### B MP, TSH #### [facility] [address] [address] [address] Reema Mireles Potassium [Moles/Vol] 3.3 mmol/L Critically low 3.5-5.1 [facility] Comment on above: Performed By: #### B MP, TSH #### [facility] [address] [address] [address] Reema Mireles Sodium [Moles/Vol] 139 mmol/L Normal 136-145 [facility] [place] Comment on above: Performed By: #### B MP, TSH #### [facility] [address] [address] [address] Reema Mireles Urea nitrogen [Mass/Vol] 8.0 mg/dL Normal 7.0-18.0 [facility] Comment on above: Performed By: #### B MP, TSH #### [facility] [address] [address] [address] Reema Mireles Urea nitrogen/Creatinine [Mass ratio] 12.3 mg/mg Normal [facility] Comment on above: Performed By: #### B MP, TSH #### [facility] [address] [address] [address] Reema Mireles TSHon 04-13-2022 TSH 1.293 uIU/mL Normal 0.358-3.740 [facility] Comment on above: Performed By: #### B MP, TSH #### [facility] [address] [address] [address] Reema Mireles Consent for Treatmenton 03-28 Consent for Treatment [id number] [facility] ED Clinical Summaryon 2021 ED Clinical Summary [address] [place] [address] ED Clinical Summary Person Information Name: JUANPABLO CHAPARRO [place] Age: 21 Years : 2000 Sex: Female Language: Yi PCP: ADRYAN MARIE MD Marital Status: Single Phone: [phone] Visit Id: Visit Reason: Vertigo - recurrent; [...] 04/12/2022 21:07:38 04/12/2022 21:07:38 04/12/2022 21:07:38 ADDRESS: [address] [place] [id number] PHYS DOC NOTES: MEDICAL INFORMATION: Prescriptions Given: PATIENT EDUCATION INFORMATION: Instructions: General Headache Without Cause; Vertigo Follow up: With: Address: When: ADRYAN OSCAR [address] [place], [place] [id number] Business (1) In 3 days 04/15/2022 Comments: Return to the emergency room if her headache gets worse, vertigo becomes persistent or any new symptoms DIAGNOSIS: 1:Vertigo; 2:Headache Normal [facility] ED Patient Education Noteon 04-12-2022 ED [...] you feel dizzy. General instructions ? Take omcb-icw-ynjkbnt and prescription medicines only as told by [...] 06/24/2006 Document Revised: 08/08/2019 Document Reviewed: 08/08/2019 [employer] Patient Education ? 2020 [employer] Neurology General Headache Without Cause A [...] with your condition: Managing pain ? Take bcym-zuc-vlrybbw and prescription medicines only as told by [...] of beer (more content not included)... Normal [facility] ED Patient Summaryon 022 ED Patient Summary [address] [id number] Patient Discharge Instructions Person Information Name: JUANPABLO CHAPARRO Age: 21 Years Arrival Date: 04/12/2022 19:22:40 Discharge Diagnosis: 1:Vertigo; 2:Headache Primary Care Physician: ADRYAN MARIE MD Provider Information Primary Provider: Lata Hardy M.D. Advanced Evaporator Helper:None The exam and treatment you received in the Emergency Department were for an urgent problem and are not intended as complete care. It is important that you follow up with a doctor, nurse practitioner, or physician?s publisher assistant for ongoing care. If your symptoms [...] Follow-up Instructions: With: Address: When: ADRYAN MARIE [address] [place], [place] [id number] [place] (1) In 3 days 04/15/2022 Comments: Return [...] opioids can be used to help relieve pxpardda-mf-gjgorq pain and are often prescribed following a [...] addiction, tel (more content not included)... Normal [facility] CBC AUTO DIFFon 04-09-2022 BASO # 0.1 103/ul Normal 0.0-0.1 [facility] Comment on above: Performed By: #### B MP, TSH #### [facility] [address] [address] [address] Reema Mireles Basophils/100 WBC (Bld) 0.5 % Normal 0.2-2.0 [facility] Comment on above: Performed By: #### B MP, TSH #### [facility] [address] [place] [address] Dr. Reema Mireles EO # 0.1 103/ul Normal 0.0-0.7 [facility] Comment on above: Performed By: #### B MP, TSH #### [facility] [address] [place] [address] Dr. Reema Mireles Eosinophils/100 WBC (Bld) 1.0 % Normal 0.9-7.0 [facility] Comment on above: Performed By: #### B MP, TSH #### [facility] [address] [place] [address] Dr. Reema Mireles Erythrocyte distribution width (RBC) [Ratio] 11.7 % Normal 11.0-15.0 [facility] Comment on above: Performed By: #### B MP, TSH #### [facility] [address] [place] [address] Dr. Reema Mireles Hematocrit (Bld) [Volume fraction] 37.2 % Normal 36.0-48.0 [facility] Comment on above: Performed By: #### B MP, TSH #### [facility] [address] [place] [address] Dr. Reema Mireles Hemoglobin (Bld) [Mass/Vol] 12.8 g/dL Normal 12.0-16.0 [facility] Comment on above: Performed By: #### B MP, TSH #### [facility] [address] [place] [address] Dr. Reema Mireles IG # 0.02 10e3/ul Normal 0.00-0.03 [facility] Comment on above: Performed By: #### B MP, TSH #### [facility] [address] [place] [address] Dr. Reema Mireles IG % 0.2 % Normal 0.0-0.5 [facility] Comment on above: Performed By: #### B MP, TSH #### [facility] [address] [place] [address] Dr. Reema Mireles LYMPH # 1.8 103/ul Normal 1.2-3.8 [facility] Comment on above: Performed By: #### B MP, TSH #### [facility] [address] [address] [address] Reema Mireles Lymphocytes/100 WBC (Bld) 19.0 % Critically low 20.5-60.0 [facility] Comment on above: Performed By: #### B MP, TSH #### [facility] [address] [place] [address] Dr. Reema Mireles MANUAL DIFF REQ NO Normal [facility] Comment on above: Performed By: #### B MP, TSH #### [facility] [address] [place] [address] Dr. Reema Mireles MCH (RBC) [Entitic mass] 30.4 pg Normal 26.7-34.0 [facility] Comment on above: Performed By: #### B MP, TSH #### [facility] [address] [place] [address] Dr. Reema Mireles MCHC (RBC) [Mass/Vol] 34.4 g/dL Normal 29.9-35.2 [facility] Comment on above: Performed By: #### B MP, TSH #### [facility] [address] [place] [address] Dr. Reema Mireles MCV (RBC) [Entitic vol] 88.4 fL Normal 81.0-99.0 [facility] Comment on above: Performed By: #### B MP, TSH #### [facility] [address] [place] [address] Dr. Reema Mireles MONO # 0.7 103/ul Normal 0.3-0.8 [facility] Comment on above: Performed By: #### B MP, TSH #### [facility] [address] [place] [address] Dr. Reema Mireles Monocytes/100 WBC (Bld) 6.8 % Normal 1.7-12.0 [facility] Comment on above: Performed By: #### B MP, TSH #### [facility] [address] [place] [address] Dr. Reema Mireles NEUT # 7.0 103/ul Critically high 1.4-6.5 [facility] Comment on above: Performed By: #### B MP, TSH #### [facility] [address] [address] [address] Reema Mireles Neutrophils/100 WBC (Bld) 72.5 % Normal 43.0-75.0 [facility] Comment on above: Performed By: #### B MP, TSH #### [facility] [address] [address] [address] Reema Mireles Platelet mean volume (Bld) [Entitic vol] 10.3 fL Normal 9.5-13.5 [facility] Comment on above: Performed By: #### B GURPREET, TSH #### [facility] [address] [address] [address] Reema Mireles PLT 358 103/ul Normal 150-450 [facility] Comment on above: Performed By: #### B GURPREET, TSH #### [facility] [address] [place] [address] Dr. Reema Mireles RBC 4.21 106/ul Normal 4.20-5.40 [facility] Comment on above: Performed By: #### B GURPREET, TSH #### [facility] [address] [address] [address] Reema Mireles WBC 9.7 103/ul Normal 4.0-11.0 [facility] Comment on above: Performed By: #### B GURPREET, TSH #### [facility] [address] [address] [address] Reema Mireles CULTURE BLOODon 04-09-2022 Microscopic examination of blood, culture Culture Observations: NO GROWTH AT 5 DAYS. Normal [facility] Comment on above: Performed By: #### B MP, TSH #### [facility] [address] [address] [address] Reema Mireles ER URINE PROFILEon 2 Bilirubin Ql (U) Negative Normal NEGATIVE [facility] Comment on above: Performed By: #### B MP, TSH #### [facility] [address] [address] [address] Reema Mireles Clarity (U) CLEAR Normal CLEAR [facility] Comment on above: Performed By: #### B MP, TSH #### [facility] [address] [place] [address] Dr. Reema Mireles Color (U) LT. YELLOW Normal YELLOW [facility] Comment on above: Performed By: #### B MP, TSH #### [facility] [address] [place] [address] Dr. Reema Mireles ERUAHJohana A micrscopic examination will be performed if indicated. Normal [facility] Comment on above: Performed By: #### B MP, TSH #### [facility] [address] [place] [address] Dr. Reema Mireles Glucose Ql (U) Negative Normal NEGATIVE [facility] Comment on above: Performed By: #### B MP, TSH #### [facility] [address] [place] [address] Dr. Reema Mireles Hemoglobin Ql (U) TRACE-INTACT Abnormal NEGATIVE [facility] Comment on above: Performed By: #### B MP, TSH #### [facility] [address] [place] [address] Dr. Reema Mireles Ketones Ql (U) Negative Normal NEGATIVE [facility] Comment on above: Performed By: #### B MP, TSH #### [facility] [address] [place] [address] Dr. Reema Mireles LEUKOCYTES Negative Normal NEGATIVE [facility] Comment on above: Performed By: #### B MP, TSH #### [facility] [address] [place] [address] Dr. Reema Mireles Nitrite Ql (U) Negative Normal NEGATIVE [facility] Comment on above: Performed By: #### B MP, TSH #### [facility] [address] [place] [address] Dr. Reema Mireles pH (U) 5.5 [pH] Normal 5-9 [facility] Comment on above: Performed By: #### B MP, TSH #### [facility] [address] [place] [address] Dr. Reema Mireles SPEC GRAVITY <=1.005 Abnormal 1.005-<=1.025 [facility] [place] Comment on above: Performed By: #### B MP, TSH #### [facility] [address] [address] [address] Reema Mireles UA PROTEIN Negative Normal NEGATIVE/ TRACE [facility] Comment on above: Performed By: #### B MP, TSH #### [facility] [address] [address] [address] Reema Mireles UR MICRO IND INDICATED Normal [facility] Comment on above: Performed By: #### B MP, TSH #### [facility] [address] [place] [address] Dr. Reema Mireles Urobilinogen Qn (U) 0.2 {Renny'U}/dL Normal 0.2 - 1. 0 [facility] Comment on above: Performed By: #### B MP, TSH #### [facility] [address] [place] [address] Dr. Reema Mireles LACTATE/LACTIC ACIDon 2021 Lactate [Moles/Vol] 2.2 mmol/L Critically high 0.4-1.9 [facility] Comment on above: Performed By: #### B MP, TSH #### [facility] [address] [place] [address] Dr. Reema Mireles URon 04-09-2022 , QUAL Negative Normal NEGATIVE [facility] Comment on above: Performed By: #### B MP, TSH #### [facility] [address] [place] [address] Dr. Reema Mireles PROF 14(COMP METB)on 022 Albumin [Mass/Vol] 4.5 g/dL Normal 3.4-5.0 [facility] Comment on above: Performed By: #### C MP #### [facility] [address] [place] [address] Dr. Reema Mireles Albumin/Globulin [Mass ratio] 1.3 {ratio} Normal [facility] Comment on above: Performed By: #### C MP #### [facility] [address] [address] [address] Reema Mireles ALP [Catalytic activity/Vol] 83 U/L Normal 46-116 [facility] Comment on above: Performed By: #### C MP #### [facility] [address] [address] [address] Reema Mireles ALT [Catalytic activity/Vol] 26 U/L Normal 14-59 [facility] Comment on above: Performed By: #### C MP #### [facility] [address] [address] [address] Reema Mireles Anion gap [Moles/Vol] 14.9 mmol/L Normal [facility] Comment on above: Performed By: #### C MP #### [facility] [address] [address] [address] Reema Mireles AST [Catalytic activity/Vol] 12 U/L Critically low 15-37 [facility] Comment on above: Performed By: #### C MP #### [facility] [address] [address] [address] Reema Mireles Bilirubin [Mass/Vol] 0.3 mg/dL Normal 0.2-1.0 [facility] Comment on above: Performed By: #### C MP #### [facility] [address] [address] [address] Reema Mireles Calcium [Mass/Vol] 9.6 mg/dL Normal 8.5-10.1 [facility] Comment on above: Performed By: #### C MP #### [facility] [address] [address] [address] Reema Mireles Chloride [Moles/Vol] 103 mmol/L Normal 98-107 [facility] Comment on above: Performed By: #### C MP #### [facility] [address] [address] [address] Reema Mireles CO2 [Moles/Vol] 24.4 mmol/L Normal 21.0-32.0 [facility] Comment on above: Performed By: #### C MP #### [facility] [address] [address] [address] Reema Mireles Creatinine [Mass/Vol] 0.87 mg/dL Normal 0.55-1.02 [facility] Comment on above: Performed By: #### C MP #### [facility] [address] [address] [address] Reema Mireles EGFR-AF SUDANESE >60 Normal >=60 [facility] Comment on above: Performed By: #### C MP #### [facility] [address] [address] [address] Reema Mireles EGFR-NON AF SUDANESE >60 Normal >=60 [facility] Comment on above: Performed By: #### C MP #### [facility] [address] [address] [address] Reema Mireles Globulin (S) [Mass/Vol] 3.5 g/dL Normal [facility] Comment on above: Performed By: #### C MP #### [facility] [address] [address] [address] Reema Mireles Glucose [Mass/Vol] 109 mg/dL Critically high 74-106 [facility] Comment on above: Performed By: #### C MP #### [facility] [address] [address] [address] Reema Mireles Potassium [Moles/Vol] 3.3 mmol/L Critically low 3.5-5.1 [facility] Comment on above: Performed By: #### C MP #### [facility] [address] [address] [address] Reema Mireles Protein [Mass/Vol] 8.0 g/dL Normal 6.4-8.[address] [facility] Comment on above: Performed By: #### C MP #### [facility] [address] [address] [address] Reema Mireles Sodium [Moles/Vol] 139 mmol/L Normal 136-[address] [facility] Comment on above: Performed By: #### C MP #### [facility] [address] [address] [address] Reema Mireles Urea nitrogen [Mass/Vol] 9.0 mg/dL Normal 7.0-18.0 [facility] Comment on above: Performed By: #### C MP #### [facility] [address] [address] [address] Reema Mireles Urea nitrogen/Creatinine [Mass ratio] 10.3 mg/mg Normal [facility] Comment on above: Performed By: #### C MP #### [facility] [address] [place] [address] Dr. Reema Mireles URINE MICROSCOPIC ONLYon BACTERIA NONE SEEN Normal NONE SEEN [facility] Comment on above: Performed By: #### B MP, TSH #### [facility] [address] [place] [address] Dr. Reema Mireles Bacteria identified Cx Nom (U) NOT INDICATED Normal [facility] Comment on above: Performed By: #### B MP, TSH #### [facility] [address] [place] [address] Dr. Reema Mireles CAST NONE SEEN Normal NONE SEEN [facility] Comment on above: Performed By: #### B MP, TSH #### [facility] [address] [place] [address] Dr. Reema Mireles Crystals LM Nom (Urine sed) NONE SEEN Normal NONE SEEN [facility] Comment on above: Performed By: #### B MP, TSH #### [facility] [address] [place] [address] Dr. Reema Mireles Epithelial cells LM Ql (Urine sed) RARE Normal NONE SEEN /RARE [facility] Comment on above: Performed By: #### B MP, TSH #### [facility] [address] [place] [address] Dr. Reema Mireles MUCOUS NONE SEEN Normal NONE SEEN [facility] Comment on above: Performed By: #### B MP, TSH #### [facility] [address] [place] [address] Dr. Reema Mireles RBC 0-2 Normal 0-2 [facility] Comment on above: Performed By: #### B MP, TSH #### [facility] [address] [place] [address] Dr. Reema Mireles WBC NONE SEEN Normal NONE SEEN [facility] Comment on above: Performed By: #### B MP, TSH #### [facility] [address] [place] [address] Dr. Reema Mireles CBC AUTO DIFFon 10-25-2021 BASO # 0.0 103/ul Normal 0.0-0.1 [facility] Comment on above: Performed By: #### C BC #### [facility] [address] [place] [address] Dr. Reema Mireles Basophils/100 WBC (Bld) 0.6 % Normal 0.2-2.0 [facility] Comment on above: Performed By: #### C BC #### [facility] [address] [place] [address] Dr. Reema Mireles EO # 0.1 103/ul Normal 0.0-0.7 [facility] Comment on above: Performed By: #### C BC #### [facility] [address] [place] [address] Dr. Reema Mireles Eosinophils/100 WBC (Bld) 1.8 % Normal 0.9-7.0 [facility] Comment on above: Performed By: #### C BC #### [facility] [address] [place] [address] Dr. Reema Mireles Erythrocyte distribution width (RBC) [Ratio] 11.9 % Normal 11.0-15.0 [facility] Comment on above: Performed By: #### C BC #### [facility] [address] [place] [address] Dr. Reema Mireles Hematocrit (Bld) [Volume fraction] 38.1 % Normal 36.0-48.0 [facility] Comment on above: Performed By: #### C BC #### [facility] [address] [place] [address] Dr. Reema Mireles Hemoglobin (Bld) [Mass/Vol] 13.1 g/dL Normal 12.0-16.0 [facility] Comment on above: Performed By: #### C BC #### [facility] [address] [place] [address] Dr. Reema Mireles IG # 0.01 10e3/ul Normal 0.00-0.03 [facility] Comment on above: Performed By: #### C BC #### [facility] [address] [place] [address] Dr. Reema Mireles IG % 0.1 % Normal 0.0-0.5 [facility] Comment on above: Performed By: #### C BC #### [facility] [address] [place] [address] Dr. Reema Mireles LYMPH # 1.9 103/ul Normal 1.2-3.8 [facility] Comment on above: Performed By: #### C BC #### [facility] [address] [place] [address] Dr. Reema Mireles Lymphocytes/100 WBC (Bld) 27.8 % Normal 20.5-60.0 [facility] Comment on above: Performed By: #### C BC #### [facility] [address] [place] [address] Dr. Reema Mireles MANUAL DIFF REQ NO Normal [facility] [place] Comment on above: Performed By: #### C BC #### [facility] [address] [place] [address] Dr. Reema Mireles MCH (RBC) [Entitic mass] 30.5 pg Normal 26.7-34.0 [facility] Comment on above: Performed By: #### C BC #### [facility] [address] [place] [address] Dr. Reema Mireles MCHC (RBC) [Mass/Vol] 34.4 g/dL Normal 29.9-35.2 [facility] Comment on above: Performed By: #### C BC #### [facility] [address] [place] [address] Dr. Reema Mireles MCV (RBC) [Entitic vol] 88.8 fL Normal 81.0-99.0 [facility] Comment on above: Performed By: #### C BC #### [facility] [address] [place] [address] Dr. Reema Mireles MONO # 0.8 103/ul Normal 0.3-0.8 [facility] Comment on above: Performed By: #### C BC #### [facility] [address] [place] [address] Dr. Reema Mireles Monocytes/100 WBC (Bld) 11.2 % Normal 1.7-12.0 [facility] Comment on above: Performed By: #### C BC #### [facility] [address] [place] [address] Dr. Reema Mireles NEUT # 4.0 103/ul Normal 1.4-6.5 [facility] Comment on above: Performed By: #### C BC #### [facility] [address] [place] [address] Dr. Reema Mireles Neutrophils/100 WBC (Bld) 58.5 % Normal 43.0-75.0 [facility] Comment on above: Performed By: #### C BC #### [facility] [address] [place] [address] Dr. Reema Mireles Platelet mean volume (Bld) [Entitic vol] 10.0 fL Normal 9.5-13.5 [facility] Comment on above: Performed By: #### C BC #### [facility] [address] [place] [address] Dr. Reema Mireles PLT 361 103/ul Normal 150-450 [facility] Comment on above: Performed By: #### C BC #### [facility] [address] [place] [address] Dr. Reema Mireles RBC 4.29 106/ul Normal 4.20-5.40 [facility] Comment on above: Performed By: #### C BC #### [facility] [address] [place] [address] Dr. Reema Mireles WBC 6.8 103/ul Normal 4.0-11.0 [facility] Comment on above: Performed By: #### C BC #### [facility] [address] [place] [address] Dr. Reema Mireles PREG QUANT HCGon 10-25-2021 HCG QUANT 1 mIU/mL Normal [facility] Comment on above: Performed By: #### P REGQNT #### [facility] [address] [place] [address] Dr. Reema Mireles HCG RANGE SEE BELOW Normal [facility] Comment on above: Result Comment: 5-50 0-1 WEEK 40-300 1-2 WEEKS 100-1,000 2-3 WEEKS 500-6,000 3-4 WEEKS 5,000-200,000 1-2 MONTHS 10,000-100,000 2-3 MONTHS 3,000-50,000 2ND TRIMESTER 1,000-50,000 3RD TRIMESTER Performed By: #### P REGQNT #### [facility] [address] [address] [address] Reema Mireles Covid-19 PCR ([facility])on 09-29 SARS-CoV-2 (COVID-19) RNA FRANKIE+probe Ql (Unsp spec) Not detected Normal NOT DETECTED [facility] Comment on above: Result Comment: This test is not yet approved or cleared by the [place] FDA. When there are no FDA-approved or cleared tests available, and other criteria are met, FDA can make tests available under an emergency access mechanism called an Emergency Use Authorization (EUA). The EUA for this test is supported by the Senior Buyer of Health and Human Service's (HHS's) declaration [...] SARS-CoV-2. Performed By: #### C VDTB #### [facility] [address] [place] [address] Dr. Reema Mireles Vital Signs Date Time Vital Sign Value Performing Clinician Facility 11-12-2023 14:15-0500 Body weight 108.86 kg Normal Work Phone: [facility] 11-12-2023 14:15-0500 Diastolic blood pressure 72 mm[Hg] Normal Work Phone: [facility] 11-12-2023 14:15-0500 Systolic blood pressure 122 mm[Hg] Devan Tello DO Work Phone: [facility] 04-12-2022 21:04-0400 Diastolic blood pressure 84 mm[Hg] [facility] 04-12-2022 21:04-0400 Heart rate 82 /min [facility] 04-12-2022 21:04-0400 Respiratory rate 16 /min [facility] 04-12-2022 21:04-0400 SaO2% (BldA) [Mass fraction] 98 % [facility] 04-12-2022 21:04-0400 Systolic blood pressure 120 mm[Hg] [facility] 04-12-2022 20:32-0400 gluc 80 mg/dL [facility] Comment on above: Result Comment: not taken due to pt refu jimmie of any injection 04-12-2022 20:32-0400 gluc [facility] 04-12-2022 19:25-0400 Body temperature 99.32 [degF] [facility] 04-12-2022 19:25-0400 Diastolic blood pressure 84 mm[Hg] [facility] 04-12-2022 19:25-0400 Heart rate 90 /min [facility] 04-12-2022 19:25-0400 Respiratory rate 18 /min [facility] 04-12-2022 19:25-0400 SaO2% (BldA) [Mass fraction] 98 % [facility] 04-12-2022 19:25-0400 Systolic blood pressure 118 mm[Hg] [facility] 04-09-2022 12:20-0400 Body height 165.1 cm Deonna Back Other [facility] Other 04-09-2022 12:20-0400 Body mass index (BMI) [Ratio] 35.61 kg/m2 Deonna Nazanin Other [facility] Other 04-09-2022 12:20-0400 Body temperature 98.4 [degF] Deonna Nazanin Other [facility] Other 04-09-2022 12:20-0400 Body weight 97.07 kg Deonna Nazanin Other [facility] Other 04-09-2022 12:20-0400 Diastolic blood pressure 83 mm[Hg] Deonna Nazanin Other [facility] Other 04-09-2022 12:20-0400 Respiratory rate 18 /min Deonna Nazanin Other [facility] Other 04-09-2022 12:20-0400 SaO2% (BldA) [Mass fraction] 99 % Deonna Nazanin Other [facility] Other 04-09-2022 12:20-0400 Systolic blood pressure 135 mm[Hg] Deonna Nazanin Other [facility] Other 04-02-2022 19:00-0400 Body height 165.1 cm Deonna Nazanin Other [facility] Other 04-02-2022 19:00-0400 Body mass index (BMI) [Ratio] 35.71 kg/m2 Deonna Nazanin Other [facility] Other 04-02-2022 19:00-0400 Body temperature 98.1 [degF] Deonna Nazanin Other [facility] Other 04-02-2022 19:00-0400 Body weight 97.34 kg Deonna Back Other [facility] Other 04-02-2022 19:00-0400 Diastolic blood pressure 83 mm[Hg] Deonna Back Other [facility] Other 04-02-2022 19:00-0400 Respiratory rate 18 /min Deonna Back Other [facility] Other 04-02-2022 19:00-0400 SaO2% (BldA) [Mass fraction] 100 % Deonna Back Other [facility] Other 04-02-2022 19:00-0400 Systolic blood pressure 134 mm[Hg] Deonna Back Other [facility] Other Encounters Encounter Date Encounter Type Care [...] 04-12-2022 Emergency department patient visit Lata Hardy [facility] Start: 04-10-2022 End: 04-10-2022 ambulatory Deonna Back Other [facility] Other Start: 04-10-2022 Telephone encounter Deonna Back [facility] Start: 04-09-2022 End: 04-09-2022 ambulatory Deonna Back Other [facility] Other Start: 04-09-2022 Office outpatient vi sit 15 minutes Deonna Back [facility] Start: 04-09-2022 End: 04-09-[address] LUIS ANTONIO SUTTON Facility:[facility] Start: 04-02-2022 (URG) Urgent Care Visit Deonna Silva d [facility] Start: 04-02-2022 End: 04-02-2022 ambulatory Deonna Back Other [facility] Other Start: 10-25-2021 End: 10-25-[address] ADRYAN MARIE Facility:[facility] Start: 10-24-2021 Encounter for preprocedural laboratory examination DR DEVAN TELLO [facility] Start: 10-22-2021 End: 10-23-[address] ADRYAN MARIE Facility:[facility] Start: 10-22-2021 End: 10-23-2021 Encounter for preprocedural laboratory examination DR ADRYAN MARIE Facility:[facility] Start: 10-19-2021 Encounter for other preprocedural examination DR DEVAN TELLO [facility] Start: 10-17-2021 End: 10-18-[address] [...] Routine [facility] [address] [place] [address] Cydney Leos PA [address] [place], [place] [id number] [facility] Start: 11-26-2023 End: 11-26-2023 Professional / ancillary services management 11/26/2023 10:30 AM EST Ancillary Procedure [facility] [address] [place] [address] [facility] Start: 11-12-2023 End: 11-12-2024 US for US OB SCAN FOR GROWTH Imaging Routine Excessive growth affecting management of in third trimester, single or unspecified fetus Expected: 11/12/2023 (Approximate), Expires: 11/12/2024 [facility] Work Phone: Comment on above: Expected: 11/12/2023 (Approximate), Expires: 11/12/2024 Start: 11-12-2023 End: 11-12-2023 Patient encounter procedure 11/12/2023 10:50 AM EST Routine [facility] [address] [place] [id number] Devan Tello, [address] [place] [address] [facility] Payers Date Payer Category Payer Unknown [facility]LY [facility] MEDICAID [id number] 2023-Present [address] [place] [address] [id number] 2023 Medicaid [id number] 2001 Unknown [id number] 593 2001 Unknown [id number] 593 2001 Unknown [id number] 593 2001 Unknown [id number] 593 2001 Unknown [id number] 593 2001 Unknown [id number] 593 2001 Unknown [id number] 593 2001 Unknown [id number] [id number]. 593 2001 Unknown [id number] 2.16.840.1.849491.3.579.2. 593 2001 Unknown [id number] 2.16.840.1.739652.3.579.2. 593 2001 Unknown [id number] 2.16.840.1.129173.3.579.2. 593 2001 Unknown [id number] 2.16.840.1.921559.3.579.2. 1259 2001 Unknown [id number] 2.16.840.1.986631.3.579.2. 1259 2001 Unknown [id number] 2.16.840.1.843270.3.579.2. 1259 2001 Unknown [id number] 2.16.840.1.505619.3.579.2. 1259 2001 Unknown [id number] 2.16.840.1.789999.3.579.2. 1259 2001 Unknown [id number] 2.16.840.1.246400.3.579.2. 1259 1958 [facility] [id number] 2.16.840.1.360351.19 Social History Date Type Detail Facility Unknown if ever smoked [facility] Other Sex Assigned At [facility] Other Tobacco smoking status No Smoking Status Entered [facility] Start: 06-20-2023 Tobacco smoking status ORIS Tobacco smoking consumption unknown [facility] Start: 10-15-2023 Alcohol intake Lifetime non-d hermes (finding) [facility] Start: 06-20-2023 Tobacco Comment Current smoker (frequency unknown) [facility] Start: 05-06-2023 [facility] Start: 2001 Sex Assigned At Not on file [facility] Goals Date Patient Goal Desired Activity /State Personal health goal Functional Status Date Assessment Result Facility 04-12-2022 Functional Status N/A [facility] [place] History of Present illness Narrative 11-12-2023 Ciarra [...] Devan Tello DO documented in this encounter [facility] Discharge instructions 04-12-2022 Note Date [...] help with your condition: Managing pain Take fhtq-nch-ifftgcq and prescription medicines only as told by [...] 09/14/2006 Document Revised: 04/04/2019 Document Reviewed: 04/04/2019 [employer] Patient Education 2020 [employer] 04/12/2022 21:07:38 Vertigo Vertigo Vertigo is [...] if you feel dizzy. General instructions Take kkkv-ozp-gvchcdd and prescription medicines only as told by [...] 06/24/2006 Document Revised: 08/08/2019 Document Reviewed: 08/08/2019 [employer] Patient Education 2020 [email or web address] Follow Up Care 04/12/2022 19:25:17 With:ADRYAN MARIE Address: [address] [place], [place] [id number] [facility] (1) When:04/15/2022 20:55:24 Comments:Return to the emergency room if her headache gets worse, vertigo becomes persistent or any new symptoms [facility] Evaluation note 04-09-2022 Note Date & [...] She was prescribed Zofran with no improvement. [facility] [facility] Other Evaluation note 04-02-2022 Note Date & [...] 3 days. No swimming for a week [facility] [facility] Other Clinical Note 10-25-2021 Note Date & Type Note Facility 10-25-2021 Note OPERATIVE NOTE PROCEDURE: Diagnostic laparoscopy. PREOPERATIVE DIAGNOSIS: Pelvic pain, dyspareunia dysmenorrhea. POSTOPERATIVE DIAGNOSIS: Pelvic pain, dyspareunia dysmenorrhea. ANESTHESIA: General. SURGEON: Devan Tello D.O. PRODUCER DIRECTOR: JAE Worley URINE OUTPUT: Yellow and clear. [...] taken to Recovery Room in stable condition. [facility] Signed and Approved by: DR DEVAN TELLO . 11/01/2021 17:31:00 [facility] Evaluation + Plan note Note Date & Type Note Facility Evaluation + Plan note No data available for this section [facility] Evaluation note Note Date & Type Note Facility Evaluation note No Information [facility] [employer] Other Evaluation note Note Date & Type [...] endometriosis Hospitalization History RSV as a baby [facility] Other Progress note Note Date & Type Note Facility Progress note No data available for this section [facility] Summary Purpose Family History No Family History Records FoundNo Family History Records FoundNo Family History Records Found Advance Directives No Advanced Directives Records FoundNo Advanced Directives Records FoundNo Advanced Directives Records Found Additional Source Comments REASON FOR VISIT (unrecogniz ed section and content) Reason Comments Routine Visit Care Team (unrecognized sect ion and content) Bridge Builder Relationship Specialty Start Date End Date Adryan Marie MD [address] [place], [place] [id number] PCP - General Family Medicine 06/19/23 Bridge Builder Relationship Specialty Start Date End Date Adryan Marie MD [address] [place] [address] PCP - General Family Medicine 06/19/23 INFORMATION SOURCE (unrecogn ized section and content) DATE CREATED AUTHOR 04/26/2022 [facility] DATE CREATED AUTHOR AUTHOR'S ORGANIZ ATION 09/19/2022 [facility] DATE CREATED AUTHOR AUTHOR'S ORGANIZ ATION 12/14/2023 [facility] PSYCHIATRIC FOR RECORDS PERTAINING TO PATIENTS WHO ARE [...] BE BASED ON THE PRIMARY CLINICAL RECORDS. [facility] [employer] [facility]. provides no warranty or guarantee of the accuracy or completeness of information in this document.
[2023-12-26 08:04] VITALS: BP 166/90; PULSE 117
[2023-12-26 08:12] VITALS: BP 138/72
[2023-12-26 08:42] VITALS: BP 118/64
== END 2023-12-26 08:45 | disposition home or self-care (01) ==
LOC: FBCO 06:53 → FBC 07:56
PROVIDERS: PCP Family Medicine; Visit Provider Obstetrics & Gynecology
DX: O36.63X0 Maternal care for excessive fetal growth, third trimester, not applicable or unspecified (principal)
CPT/HCPCS: 59025

== ENCOUNTER 2023-12-30 07:15 | Outpatient (OUT) | payer OTHER, SELFPAY ==
--- OUTSIDE RECORDS SUMMARY | 2023-12-30 07:41 | XMS_ITS | CCD ---
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 Name Role Phone Deonna Back Unavailable DEFJAILENE, ADRYAN Primary Care Physician [phone] LESLEY, DR LUIS ANTONIO Jorge Consulting Unavailable LESLEY, DR LUIS ANTONIO Jorge Attending Unavailable DEFRANCE, DR CORNELIUS Primary Care Unavailable LESLEY, DR LUIS ANTONIO Jorge Admitting Unavailable DEFRANCE, DR CORNELIUS Primary Care Unavailable DIETER GONZALEZ Admitting Unavailable DIETER GONZALEZ Attending Unavailable CHIKA LEOS Consulting Unavailable BRENNANRANCE, DR CORNELIUS Primary Care Unavailable JORGE, DR BOLAÑOS Consulting Unavailable BETTY, DR ESPINOZA Attending Unavailable BETTY, DR ESPINOZA Admitting Unavailable AURELIA CARLOS Consulting Unavailable LESLEY, DR LUIS ANTONIO Jorge Consulting Unavailable DEFRANCE, DR CORNELIUS Primary Care Unavailable LESLEY, DR LUIS ANTONIO Jorge Attending Unavailable SUTTON, DR LUIS ANTONIO Jorge Admitting Unavailable LESLEY, [...] Unavailable Defrance Adryan OBRIEN Primary Care Provider [phone] CYDNEY LEOS Attending Unavailable CYDNEY LEOS Attending Unavailable DEVAN TELLO Attending Unavailable CYDNEY LEOS Attending Unavailable DEVAN TELLO Attending Unavailable CYDNEY LEOS Attending Unavailable DEVAN TELLO Attending Unavailable Allergies Allergy Classification Reported Allergen(s) Allergy Type Date of Onset Reaction(s) Facility (3 sources) Sulfacetamide Drug Allergy rash [facility] Other (1 source) Sulfonamides (Antibiotic); Translations: [sulfa drugs] Drug allergy Hyperpyrexia (finding) [facility] (1 source) Sulfonamides (Antibiotic) Drug allergy (disorder) 07-26-20 14 [facility] (3 sources) Sulfonamides (Antibiotic) Drug Intolerance 06-17-20 [...] BY MOUTH EVERY MORNING 0 10/06/2023 Active UJ-Waj-PD-[place]-3 ( Gummies/DHA & FA) 0.4-32.5 MG chewable tablet (3 sources) Start: 06-19-2023 End: 06-18-2024 AC-Wct-TF-[place]-3 ( Gummies/DHA & FA) 0.4-32.5 MG chewable tablet Indications: Missed menses Chew 32.5 mg in the morning. 30 tablet 11 06/19/2023 06/18/2024 Active Completed/Discontinued Medications Medication Drug Class(es) Dates Sig (Normalized) Sig (Original) [id number] 200 actuat albuterol 0.09 mg/actuat metered dose [...] / neomycin 3.5 mg/ml / polymyxin b [id number] unt/ml otic suspension (3 sources) Aminoglycoside Antibacterial, Polymyxin-class Antibacterial, Corticosteroid Start: 04-02-2022 Neomycin-Polymyx in-HC 3.5-23297-4 3 drops left ear Three times a [...] UA Negative Negative - 4(70) +++ mg/dL [facility] Blood, UA Negative Negative - 50 Cedric/mcL [facility] Clarity, UA Clear [facility] re Color, UA Yellow [facility] Gl[facility], [facility]A Negative Negative - 1999(110) ++++ mg/dL [facility] Interpretation and review of laboratory results Normal [facility] Ketones, UA Negative Negative - 160(16) ++++ mg/dL [facility] Leukocytes, UA Negative Negative - 500+++ Alessandro/mcL [facility] Nitrite, UA Negative Negative - Positive [facility] pH, UA 6.0 5 - 9 [facility] e Protein, UA Negative Negative - 1999(20) ++++ mg/dL [facility] Spec Grav, UA 1.020 1 - 1.03 [facility] Urobilinogen, UA 0.2 0.2 - 12 mg/dL [facility] ALL CBC WITH AUTO DIFFon BASOPHILS ABSOLUTE AUTO 0.0 [facility] Basophils/100 WBC (Bld) 0.3 % 0.2 - 2.0 % [facility] Eosinophils/100 WBC (Bld) 1.0 % 0.9 - 7.0 % [facility] Erythrocyte distribution width (RBC) [Ratio] 12.5 % 11.0 - 15.0 % [facility] Hematocrit (Bld) [Volume fraction] 35.1 % Low 36.0 - 48.0 % [facility] Hemoglobin (Bld) [Mass/Vol] 11.7 g/dL Low 12.0 - 16.0 g/dL [facility] IMMATURE GRANULOCYTES ABS AUTO 0.08 High [facility] Immature granulocytes/100 WBC (Bld) 0.6 % High 0.0 - 0.5 % [facility] Interpretation and review of laboratory results [facility]normal [facility] LY[facility]OC[facility] ABSOLUTE AUTO 1.6 [facility] Lymphocytes/100 WBC (Bld) 11.9 % Low 20.5 - 60.0 % [facility] MCH (RBC) [Entitic mass] 30.7 pg 26.7 - 34.0 pg [facility] MCHC (RBC) [Mass/Vol] 33.3 g/dL 29.9 - 35.2 g/dL [facility] MCV (RBC) [Entitic vol] 92.1 fL 81.0 - 99.0 fL [facility] MONOCYTES ABSOLUTE AUTO 0.8 [facility] Monocytes/100 WBC (Bld) 5.5 % 1.7 - 12.0 % [facility] NEUTROPHILS ABSOLUTE AUTO 11.1 High [facility] Neutrophils/100 WBC (Bld) 80.7 % High 43.0 - 75.0 % [facility] Platelet mean volume (Bld) [Entitic vol] 10.6 fL 9.5 - 13.5 fL [facility] are [facility] EO # 0.1 [facility] PLT 292 [facility] RBC 3.81 Low [facility] TBH WBC 13.8 High [facility] CBC AUTO DIFFon 09-14-2022 BASO # 0.0 103/ul Normal 0.0-0.1 [facility] Comment on above: Performed By: #### B MP, TSH #### [facility] [address] [address] [address] Reema Mireles Basophils/100 WBC (Bld) 0.6 % Normal 0.2-2.0 [facility] Comment on above: Performed By: #### B MP, TSH #### [facility] [address] [address] [address] Reema Mireles EO # 0.0 103/ul Normal 0.0-0.7 [facility] Comment on above: Performed By: #### B MP, TSH #### [facility] [address] [address] [address] Reema Mireles Eosinophils/100 WBC (Bld) 0.6 % Critically low 0.9-7.0 [facility] Comment on above: Performed By: #### B MP, TSH #### [facility] [address] [place] [address] Dr. Reema Mireles Erythrocyte distribution width (RBC) [Ratio] 11.9 % Normal 11.0-15.0 [facility] Comment on above: Performed By: #### B GURPREET, TSH #### [facility] [address] [place] [address] Dr. Reema Mireles Hematocrit (Bld) [Volume fraction] 37.8 % Normal 36.0-48.0 [facility] Comment on above: Performed By: #### B GURPREET, TSH #### [facility] [address] [place] [address] Dr. Reema Mireles Hemoglobin (Bld) [Mass/Vol] 13.5 g/dL Normal 12.0-16.0 [facility] Comment on above: Performed By: #### B GURPREET, TSH #### [facility] [address] [place] [address] Dr. Reema Mireles IG # 0.01 10e3/ul Normal 0.00-0.03 [facility] Comment on above: Performed By: #### B GURPREET, TSH #### [facility] [address] [place] [address] Dr. Reema Mireles IG % 0.2 % Normal 0.0-0.5 [facility] Comment on above: Performed By: #### B GURPREET, TSH #### [facility] [address] [place] [address] Dr. Reema Mireles LYMPH # 1.6 103/ul Normal 1.2-3.8 [facility] Comment on above: Performed By: #### B GURPREET, TSH #### [facility] [address] [place] [address] Dr. Reema Mireles Lymphocytes/100 WBC (Bld) 25.5 % Normal 20.5-60.0 [facility] Comment on above: Performed By: #### B GURPREET, TSH #### [facility] [address] [place] [address] Dr. Reema Mireles MANUAL DIFF REQ NO Normal [facility] Comment on above: Performed By: #### B MP, TSH #### [facility] [address] [place] [address] Dr. Reema Mireles MCH (RBC) [Entitic mass] 30.9 pg Normal 26.7-34.0 [facility] Comment on above: Performed By: #### B MP, TSH #### [facility] [address] [place] [address] Dr. Reema Mireles MCHC (RBC) [Mass/Vol] 35.7 g/dL Critically high 29.9-35.2 [facility] Comment on above: Performed By: #### B MP, TSH #### [facility] [address] [place] [address] Dr. Reema Mireles MCV (RBC) [Entitic vol] 86.5 fL Normal 81.0-99.0 [facility] Comment on above: Performed By: #### B MP, TSH #### [facility] [address] [place] [address] Dr. Reema Mireles MONO # 0.5 103/ul Normal 0.3-0.8 [facility] Comment on above: Performed By: #### B MP, TSH #### [facility] [address] [place] [address] Dr. Reema Mireles Monocytes/100 WBC (Bld) 8.5 % Normal 1.7-12.0 [facility] Comment on above: Performed By: #### B MP, TSH #### [facility] [address] [place] [address] Dr. Reema Mireles NEUT # 4.1 103/ul Normal 1.4-6.5 [facility] Comment on above: Performed By: #### B MP, TSH #### [facility] [address] [place] [address] Dr. Reema Mireles Neutrophils/100 WBC (Bld) 64.6 % Normal 43.0-75.0 [facility] Comment on above: Performed By: #### B MP, TSH #### [facility] [address] [place] [address] Dr. Reema Mireles Platelet mean volume (Bld) [Entitic vol] 9.9 fL Normal 9.5-13.5 [facility] Comment on above: Performed By: #### B GURPREET, TSH #### [facility] [address] [place] [address] Dr. Reema Mireles PLT 403 103/ul Normal 150-450 [facility] Comment on above: Performed By: #### B GURPREET, TSH #### [facility] [address] [place] [address] Dr. Reema Mireles RBC 4.37 106/ul Normal 4.20-5.40 [facility] Comment on above: Performed By: #### B GURPREET, TSH #### [facility] [address] [place] [address] Dr. Reema Mireles WBC 6.3 103/ul Normal 4.0-11.0 [facility] Comment on above: Performed By: #### B GURPREET, TSH #### [facility] [address] [place] [address] Dr. Reema Mireles PROF 14(COMP METB)on 022 Albumin [Mass/Vol] 4.3 g/dL Normal 3.4-5.0 [facility] Comment on above: Performed By: #### B GURPREET, TSH #### [facility] [address] [place] [address] Dr. Reema Mireles Albumin/Globulin [Mass ratio] 1.2 {ratio} Normal [facility] Comment on above: Performed By: #### B GURPREET, TSH #### [facility] [address] [place] [address] Dr. Reema Mireles ALP [Catalytic activity/Vol] 79 U/L Normal 46-116 [facility] Comment on above: Performed By: #### B GURPREET, TSH #### [facility] [address] [place] [address] Dr. Reema Mireles ALT [Catalytic activity/Vol] 31 U/L Normal 14-59 [facility] Comment on above: Performed By: #### B GURPREET, TSH #### [facility] [address] [place] [address] Dr. Reema Mireles Anion gap [Moles/Vol] 12.1 mmol/L Normal [facility] Comment on above: Performed By: #### B GURPREET, TSH #### [facility] [address] [place] [address] Dr. Reema Mireles AST [Catalytic activity/Vol] 17 U/L Normal 15-37 [facility] Comment on above: Performed By: #### B GURPREET, TSH #### [facility] [address] [place] [address] Dr. Reema Mireles Bilirubin [Mass/Vol] 0.4 mg/dL Normal 0.2-1.0 [facility] Comment on above: Performed By: #### B GURPREET, TSH #### [facility] [address] [place] [address] Dr. Reema Mireles Calcium [Mass/Vol] 8.9 mg/dL Normal 8.5-10.1 [facility] Comment on above: Performed By: #### B GURPREET, TSH #### [facility] [address] [place] [address] Dr. Reema Mireles Chloride [Moles/Vol] 98 mmol/L Normal 98-107 [facility] Comment on above: Performed By: #### B GURPREET, TSH #### [facility] [address] [place] [address] Dr. Reema Mireles CO2 [Moles/Vol] 27.0 mmol/L Normal 21.0-32.0 [facility] Comment on above: Performed By: #### B GURPREET, TSH #### [facility] [address] [place] [address] Dr. Reema Mireles Creatinine [Mass/Vol] 0.65 mg/dL Normal 0.55-1.02 [facility] Comment on above: Performed By: #### B GURPREET, TSH #### [facility] [address] [place] [address] Dr. Reema Mireles EGFR-AF JORDANIAN >60 Normal >=60 [facility] Comment on above: Performed By: #### B GURPREET, TSH #### [facility] [address] [place] [address] Dr. Reema Mireles EGFR-NON AF JORDANIAN >60 Normal >=60 [facility] Comment on above: Performed By: #### B GURPREET, TSH #### [facility] [address] [place] [address] Dr. Reema Mireles Globulin (S) [Mass/Vol] 3.5 g/dL Normal [facility] Comment on above: Performed By: #### B GURPREET, TSH #### [facility] [address] [place] [address] Dr. Reema Mireles Glucose [Mass/Vol] 106 mg/dL Normal 74-106 [facility] Comment on above: Performed By: #### B GURPREET, TSH #### [facility] [address] [place] [address] Dr. Reema Mireles Potassium [Moles/Vol] 3.1 mmol/L Critically low 3.5-5.1 [facility] Comment on above: Performed By: #### B GURPREET, TSH #### [facility] [address] [place] [address] Dr. Reema Mireles Protein [Mass/Vol] 7.8 g/dL Normal 6.4-8.2 [facility] Comment on above: Performed By: #### B GURPREET, TSH #### [facility] [address] [place] [address] Dr. Reema Mireles Sodium [Moles/Vol] 134 mmol/L Critically low 136-145 [facility] Comment on above: Performed By: #### B GURPREET, TSH #### [facility] [address] [place] [address] Dr. Reema Mireles Urea nitrogen [Mass/Vol] 6.0 mg/dL Critically low 7.0-18.0 [facility] Comment on above: Performed By: #### B GURPREET, TSH #### [facility] [address] [place] [address] Dr. Reema Mireles Urea nitrogen/Creatinine [Mass ratio] 9.2 mg/mg Normal [facility] Comment on above: Performed By: #### B GURPREET, TSH #### [facility] [address] [place] [address] Dr. Reema Mireles ACETONE SERUMon 08-11-2022 ACETONE Negative Normal NEGATIVE [facility] Comment on above: Performed By: #### B GURPREET, TSH #### [facility] [address] [place] [address] Dr. Reema Mireles CBC AUTO DIFFon 08-11-2022 BASO # 0.1 103/ul Normal 0.0-0.1 [facility] Comment on above: Performed By: #### B GURPREET, TSH #### [facility] [address] [place] [address] Dr. Reema Mireles Basophils/100 WBC (Bld) 0.5 % Normal 0.2-2.0 [facility] Comment on above: Performed By: #### B GURPREET, TSH #### [facility] [address] [place] [address] Dr. Reema Mireles EO # 0.1 103/ul Normal 0.0-0.7 [facility] Comment on above: Performed By: #### B GURPREET, TSH #### [facility] [address] [place] [address] Dr. Reema Mireles Eosinophils/100 WBC (Bld) 0.7 % Critically low 0.9-7.0 [facility] Comment on above: Performed By: #### B GURPREET, TSH #### [facility] [address] [place] [address] Dr. Reema Mireles Erythrocyte distribution width (RBC) [Ratio] 11.7 % Normal 11.0-15.0 [facility] Comment on above: Performed By: #### B GURPREET, TSH #### [facility] [address] [place] [address] Dr. Reema Mireles Hematocrit (Bld) [Volume fraction] 37.6 % Normal 36.0-48.0 [facility] Comment on above: Performed By: #### B GURPREET, TSH #### [facility] [address] [place] [address] Dr. Reema Mireles Hemoglobin (Bld) [Mass/Vol] 13.1 g/dL Normal 12.0-16.0 [facility] Comment on above: Performed By: #### B GURPREET, TSH #### [facility] [address] [place] [address] Dr. Reema Mireles IG # 0.02 10e3/ul Normal 0.00-0.03 [facility] Comment on above: Performed By: #### B MP, TSH #### [facility] [address] [place] [address] Dr. Reema Mireles IG % 0.2 % Normal 0.0-0.5 [facility] Comment on above: Performed By: #### B MP, TSH #### [facility] [address] [place] [address] Dr. Reema Mireles LYMPH # 2.7 103/ul Normal 1.2-3.8 [facility] Comment on above: Performed By: #### B MP, TSH #### [facility] [address] [place] [address] Dr. Reema Mireles Lymphocytes/100 WBC (Bld) 28.5 % Normal 20.5-60.0 [facility] Comment on above: Performed By: #### B MP, TSH #### [facility] [address] [place] [address] Dr. Reema Mireles MANUAL DIFF REQ NO Normal [facility] Comment on above: Performed By: #### B MP, TSH #### [facility] [address] [place] [address] Dr. Reema Mireles MCH (RBC) [Entitic mass] 30.3 pg Normal 26.7-34.0 [facility] Comment on above: Performed By: #### B MP, TSH #### [facility] [address] [place] [address] Dr. Reema Mireles MCHC (RBC) [Mass/Vol] 34.8 g/dL Normal 29.9-35.2 [facility] Comment on above: Performed By: #### B MP, TSH #### [facility] [address] [place] [address] Dr. Reema Mireles MCV (RBC) [Entitic vol] 87.0 fL Normal 81.0-99.0 [facility] Comment on above: Performed By: #### B MP, TSH #### [facility] [address] [place] [address] Dr. Reema Mireles MONO # 0.8 103/ul Normal 0.3-0.8 [facility] Comment on above: Performed By: #### B MP, TSH #### [facility] [address] [place] [address] Dr. Reema Mireles Monocytes/100 WBC (Bld) 8.2 % Normal 1.7-12.0 [facility] Comment on above: Performed By: #### B MP, TSH #### [facility] [address] [place] [address] Dr. Reema Mireles NEUT # 5.9 103/ul Normal 1.4-6.5 [facility] Comment on above: Performed By: #### B MP, TSH #### [facility] [address] [place] [address] Dr. Reema Mireles Neutrophils/100 WBC (Bld) 61.9 % Normal 43.0-75.0 [facility] Comment on above: Performed By: #### B MP, TSH #### [facility] [address] [place] [address] Dr. Reema Mireles Platelet mean volume (Bld) [Entitic vol] 10.2 fL Normal 9.5-13.5 [facility] Comment on above: Performed By: #### B MP, TSH #### [facility] [address] [place] [address] Dr. Reema Mireles PLT 382 103/ul Normal 150-450 [facility] Comment on above: Performed By: #### B MP, TSH #### [facility] [address] [place] [address] Dr. Reema Mireles RBC 4.32 106/ul Normal 4.20-5.40 [facility] Comment on above: Performed By: #### B MP, TSH #### [facility] [address] [place] [address] Dr. Reema Mireles WBC 9.6 103/ul Normal 4.0-11.0 [facility] Comment on above: Performed By: #### B MP, TSH #### [facility] [address] [place] [address] Dr. Reema Mireles CRPon 08-11-2022 CRP [Mass/Vol] mg/L Normal <=1.0 [facility] Comment on above: Performed By: #### B MP, TSH #### [facility] [address] [place] [address] Dr. Reema Mireles ER URINE PROFILEon 2 Bilirubin Ql (U) Negative Normal NEGATIVE [facility] Comment on above: Performed By: #### B MP, TSH #### [facility] [address] [place] [address] Dr. Reema Mireles Clarity (U) CLEAR Normal CLEAR [facility] Comment on above: Performed By: #### B MP, TSH #### [facility] [address] [place] [address] Dr. Reema Mireles Color (U) LT. YELLOW Normal YELLOW [facility] Comment on above: Performed By: #### B MP, TSH #### [facility] [address] [place] [address] Dr. Reema ELIZALDE A micrscopic examination will be performed if indicated. Normal [facility] Comment on above: Performed By: #### B MP, TSH #### [facility] [address] [place] [address] Dr. Reema Mireles Glucose Ql (U) Negative Normal NEGATIVE [facility] Comment on above: Performed By: #### B MP, TSH #### [facility] [address] [place] [address] Dr. Reema Mireles Hemoglobin Ql (U) Negative Normal NEGATIVE [facility] Comment on above: Performed By: #### B MP, TSH #### [facility] [address] [place] [address] Dr. Reema Mireles Ketones Ql (U) Negative Normal NEGATIVE [facility] Comment on above: Performed By: #### B MP, TSH #### [facility] [address] [place] [address] Dr. Reema Mireles LEUKOCYTES Negative Normal NEGATIVE [facility] Comment on above: Performed By: #### B MP, TSH #### [facility] [address] [place] [address] Dr. Reema Mireles Nitrite Ql (U) Negative Normal NEGATIVE [facility] Comment on above: Performed By: #### B MP, TSH #### [facility] [address] [place] [address] Dr. Reema Mireles pH (U) 5.5 [pH] Normal 5-9 [facility] Comment on above: Performed By: #### B MP, TSH #### [facility] [address] [place] [address] Dr. Reema Mireles SPEC GRAVITY <=1.005 Abnormal 1.005-<=1.025 [facility] Comment on above: Performed By: #### B GURPREET, TSH #### [facility] [address] [place] [address] Dr. Reema Mireles UA PROTEIN Negative Normal NEGATIVE/ TRACE [facility] Comment on above: Performed By: #### B GURPREET, TSH #### [facility] [address] [place] [address] Dr. Reema Mireles UR MICRO IND NOT INDICATED Normal [facility] Comment on above: Performed By: #### B GURPREET, TSH #### [facility] [address] [place] [address] Dr. Reema Mireles Urobilinogen Qn (U) 0.2 {Renny'U}/dL Normal 0.2 - 1. 0 [facility] Comment on above: Performed By: #### B GURPREET, TSH #### [facility] [address] [place] [address] Dr. Reema Mireles LIPASEon 08-11-2022 Lipase [Catalytic activity/Vol] 71.0 U/L Critically low 73.0-393.0 [facility] Comment on above: Performed By: #### B MP, TSH #### [facility] [address] [place] [address] Dr. Reema Mireles URon 08-11-2022 , QUAL Negative Normal NEGATIVE [facility] Comment on above: Performed By: #### C VDTBH #### [facility] [address] [address] [address] Reema Mireles PROF 14(COMP METB)on 08-11- 022 Albumin [Mass/Vol] 4.3 g/dL Normal 3.4-5.0 [facility] Comment on above: Performed By: #### B MP, TSH #### [facility] [address] [place] [address] Dr. Reema Mireles Albumin/Globulin [Mass ratio] 1.2 {ratio} Normal [facility] Comment on above: Performed By: #### B MP, TSH #### [facility] [address] [place] [address] Dr. Reema Mireles ALP [Catalytic activity/Vol] 70 U/L Normal 46-116 [facility] Comment on above: Performed By: #### B MP, TSH #### [facility] [address] [place] [address] Dr. Reema Mireles ALT [Catalytic activity/Vol] 16 U/L Normal 14-59 [facility] Comment on above: Performed By: #### B MP, TSH #### [facility] [address] [place] [address] Dr. Reema Mireles Anion gap [Moles/Vol] 10.5 mmol/L Normal [facility] Comment on above: Performed By: #### B MP, TSH #### [facility] [address] [place] [address] Dr. Reema Mireles AST [Catalytic activity/Vol] 8 U/L Critically low 15-37 [facility] Comment on above: Performed By: #### B MP, TSH #### [facility] [address] [place] [address] Dr. Reema Mireles Bilirubin [Mass/Vol] 0.3 mg/dL Normal 0.2-1.0 [facility] Comment on above: Performed By: #### B MP, TSH #### [facility] [address] [place] [address] Dr. Reema Mireles Calcium [Mass/Vol] 9.0 mg/dL Normal 8.5-10.1 [facility] Comment on above: Performed By: #### B MP, TSH #### [facility] [address] [address] [address] Reema Mireles Chloride [Moles/Vol] 104 mmol/L Normal 98-107 [facility] Comment on above: Performed By: #### B MP, TSH #### [facility] [address] [address] [address] Reema Mireles CO2 [Moles/Vol] 26.5 mmol/L Normal 21.0-32.0 [facility] Comment on above: Performed By: #### B MP, TSH #### [facility] [address] [place] [address] Dr. Reema Mireles Creatinine [Mass/Vol] 0.79 mg/dL Normal 0.55-1.02 [facility] Comment on above: Performed By: #### B MP, TSH #### [facility] [address] [place] [address] Dr. Reema Mireles EGFR-AF JORDANIAN >60 Normal >=60 [facility] Comment on above: Performed By: #### B MP, TSH #### [facility] [address] [place] [address] Dr. Reema Mireles EGFR-NON AF JORDANIAN >60 Normal >=60 [facility] Comment on above: Performed By: #### B MP, TSH #### [facility] [address] [place] [address] Dr. Reema Mireles Globulin (S) [Mass/Vol] 3.5 g/dL Normal [facility] Comment on above: Performed By: #### B MP, TSH #### [facility] [address] [place] [address] Dr. Reema Mireles Glucose [Mass/Vol] 106 mg/dL Normal 74-106 [facility] Comment on above: Performed By: #### B MP, TSH #### [facility] [address] [place] [address] Dr. Reema Mireles Potassium [Moles/Vol] 3.0 mmol/L Critically low 3.5-5.1 [facility] Comment on above: Performed By: #### B MP, TSH #### [facility] [address] [place] [address] Dr. Reema Mireles Protein [Mass/Vol] 7.8 g/dL Normal 6.4-8.2 [facility] Comment on above: Performed By: #### B MP, TSH #### [facility] [address] [place] [address] Dr. Reema Mireles Sodium [Moles/Vol] 138 mmol/L Normal 136-145 [facility] Comment on above: Performed By: #### B MP, TSH #### [facility] [address] [place] [address] Dr. Reema Mireles Urea nitrogen [Mass/Vol] 8.0 mg/dL Normal 7.0-18.0 [facility] Comment on above: Performed By: #### B MP, TSH #### [facility] [address] [place] [address] Dr. Reema Mireles Urea nitrogen/Creatinine [Mass ratio] 10.1 mg/mg Normal [facility] Comment on above: Performed By: #### B MP, TSH #### [facility] [address] [place] [address] Dr. Reema Mireles PROTIMEon 08-11-2022 INR Coag (PPP) [Relative time] 1.00 {INR} Normal [facility] Comment on above: Performed By: #### P T, PTT #### [facility] [address] [place] [address] Dr. Reema Mireles INR GUIDELINES SEE BELOW Normal [facility] Comment on above: Result Comment: FELICIANO RED INR: 2.0 - 3.0 CONDITIONS NOT LISTED BELOW 2.5 - 3.5 FOR PROSTHETIC HEART VALVE REPLACEMENT 2.5 - 3.5 RECURRENT THROMBOSIS Performed By: #### P T, PTT #### [facility] [address] [place] [address] Dr. Reema Mireles PT Coag (PPP) [Time] 10.8 s Normal 9.0-11.6 [facility] Comment on above: Performed By: #### P T, PTT #### [facility] [address] [place] [address] Dr. Reema Mireles PTTon 08-11-2022 aPTT Coag (Bld) [Time] 30.8 s Normal 22.3-36.2 [facility] Comment on above: Performed By: #### P T, PTT #### [facility] [address] [place] [address] Dr. Reema Mireles [facility] SED [facility]ATE 10 mm/hr Normal <=20 [facility] Comment on above: Performed By: #### B MP, TSH #### [facility] [address] [place] [address] Dr. Reema Mireles TSHon 08-11-2022 TSH 3.313 uIU/mL Normal 0.358-3.740 [facility] Comment on above: Performed By: #### B MP, TSH #### [facility] [address] [place] [address] Dr. Reema Mireles Discharge Instructionson Discharge Instructions [id number] #1.00CD:127 Normal [facility] Comment on above: Other Comment: wrong patient STOOL CULTUREon 04-20-2022 Campylobacter Culture Final report Normal [facility] Comment on above: Performed By: #### B MP, TSH #### [facility] [address] [place] [address] Dr. Reema Mireles E coli Shiga Toxin EIA Negative Normal Negative [facility] Comment on above: Performed By: #### B MP, TSH #### [facility] [address] [place] [address] Dr. Reema Mireles Result 1 Comment Normal [facility] Comment on above: Result Comment: No S almonella or Shigella recovered. Performed By: #### B MP, TSH #### [facility] [address] [place] [address] Dr. Reema Mireles Result Comment: No C ampylobacter species isolated. Salmonella/Shigella Screen Final report Normal [facility] Comment on above: Performed By: #### B MP, TSH #### [facility] [address] [place] [address] Dr. Reema Mireles Coding Summary.on 04-14-2022 Coding Summary. CD:[id number] Gh0bWw+PGhlYWQ+PE1FV UYmK07xhDOdrZ0LT8kIK R4DSXLRHHMRHH2EAG4qf NT8RUzcK3DngnTz XhesgTXoGL02JWv4IBC5 pMatYFqnuS8dxYZyN0y3 JcQaPO32iF33VQjxHOSx LbP0VlLnmgoddPXj J4qpGrXmlIEwKte+PHRh YmxlIHdpZHRoPScxMDAl WiLskBnbRU7uWv3kJOWs LWNvbGxhcHNlOiBj a9kbOQPfJJdvPN5xrRqw E3IxiXF2PRApx8e0Mq76 dHI+EYUkAGA2qJaoHSqx y252HfXkf9kfTAR5 qUUsPGzxMYC3C88oe3B3 ALOzUZGbHUF1aUQ5dQ3h uDixvsquR2JvvGOvVuT3 BZB7nUTneW9bdHnp ojnbtD8tBtz+A56GDN6X KPNIAI4MQra4M4MlSshn dHI+PI34ALEjHZ88rLDn kROkw6rwtNs6RfZp MCSjYFA2tFngDNeir9Gm YIPlD84ydIRle7A2BEAi rVtbmELjIkJffUH8uJ8l JFidwbjpa7dahjxm Ctgrg9qmub38jQ09F79w MXvyNCMwIUE8XDKeHTVr wAjzyr0kzY7iPz0+IDxj l0bgb5oelQl1VnFk WHQsmgYddAxnBTY9g8Ge Es47H3AgeSgcb1PjFnb7 qn69dMTsp7A1jFZ2EHmj KKGfuR0jLCuyPgQ3 WROlJjSfrX55aEYdBXbt Nx0xxZgnqAlyQQ9cEQGs blpiEFVkkH6aNCAsdXSa bFvpKC6rFBKhwjdn j000TzHkSNP2HRUyfFEq E2QuiI3dDeAtIEGrACFz X7YeiYNnXJaiR928SBvk GwA6BDQoxyDeL9Vr PCSpyTcvIrY9x9N4Qb2A n1SsbapoPIC4QYcpRKT7 PjI6HfTaNtI7J4OwWeq3 DUFylBlmDN2vL4Of NHPzilkvacnxhVX4UQJk ZOXkrG98bJSvCZsvTo3k h3E6l261TQDwPAXsnG60 Rn2wyOlbZXDdhFLU kT5eltjbs0ryhnxdBsSj AOJyZIn5FFi1GPJsuRyx VmGmXDA3ErN8GDI3aTAz rO2dcToflgrtrY3w Oyc+X25yfP4pDBC3NGN1 waqlMCFhlcFlXL84MN71 X1PvRnulbVKmhVO+PGRp juTbrZozZN6mDiQg m6gjf0DcNQjcO0XnLNTu BSygPns4PURmFJW3aEF1 sH5tCQAcEIdiw0I9zOD6 G3VopmMfiu5xu9ce NBClJLmpN23meUCze2R1 HGNhrER0IHGjhTgkAuZy lG86Xqw+BTJybSxyu2Pr Vdhca8tbp5busQi0 IjMwJSIgdmFsaWduPSJ0 a7OaNs34T94zNCrwNMXh ADFwWLUmXTLroEqkkf2k fI5zCd1+PGNvbCB3 xTU6lH9bUCNiPeN2FBbe U607FhWwlXJeJugnr4ae b3qhuQl7TmTgIDSxqbRu eYzlBUG9f2NlJz73 A75hCVkdFIOkNMGtZRMa SCEkaAawfu8cyF3oCl8+ HX8lk4rbgv24jG23tFM+ YPRnPUN0zYsiHPrz SFPgoY5bUOvqWwQ3KRCg ReLzrD28rPYiYTlqMi2y cNwjxBqpSQ8mCZRlramt v447SkNoe1jeYRRd wMZlJWlgHEJ5V45ek3V6 XZMkDYFgDAS3pDP0wY6q bGlnbjogbGVmdDsgdmVy bGgzAGgzOPbpE150 IHRvcDsnPlBhdGllbnQg JnSpGZb9O6EqUbc6FIJa fImsXB8byEFwXBshEo1t dGnpbFdhBG4eFMAj gypxw699XqJxs9fdKCTz sJVdFYcoTYO7X16pk6V0 FJWoMUMxGXF2xUP1yV0k bGlnbjogbGVmdDsg ofBpiIhiERknEHuwK503 IHRvcDsnPkJpcnRoIERh iHF9SA90MW60wLLfj9D0 mTR2V7KpCCDuvdgq jzbhnMT5UMJySETsjQ66 Km7zsLlgOu1cBHNkSPS9 KGSjuKYtD2LxiZ6sXiXc RKZsXQNrN4EraWMr GGolU024MWupWwN0OWXp dbJmR5RcDQCtrAskEcW2 a6P0Kw6EF4X3NF88WG47 dXQsk9T5qHY3P4Ho RFNcnpnkqfrgyJZ9FOOm PQLqhK78Ow0lvKlaMg0s OXJoOFG8RKSfgDXfC3Kx xH2fXoFcTPZhWLAe L9JonXLtLZcuU598CZoy NqP1RJLsgcXeX8ZlDFZi eRzbNoU7o8L8Rz2MKUg9 SU13XY64cBZqp0A8 hPV6A8UiKHTvzxajuikw gSN4GLRhEBNsgR10Va7p yNxuYl9vRNJwGAT4FRPt nZVgN5GwgX0vFcIp FFFfTZBoF0XyhMYcWLuf B955GJprMyL7JNBtfoSc P2JoLCNygOrgYvI4v7L1 Wb7EKECiFW18RQI4 tTA9AF81SI79D7KyMhlt dGFibGU+PHRhYmxlIHdp ZHRoPScxMDAlJyBzdHls HX8hOp7kIOYsIFVb aSpxvEFlGfGwy5mwKVXk NKreXK9koBdhC9LocNZ7 YMTuc1c6Ps38M40cG1Mn dXA+KZZxvKY7tFT0 iG7pAnZkPaA7HOsrK455 HfYgvXJqOepal4zvr7hi zSy2RdF0VYKekeOhvZum MZR5a0UcFp79G84s IHdpZHRoPSIxNSUiIHZh pMjazz1umM5vHd4+PGNv hMJ7zWX0eS4fGoRvRpD4 QEltA589BgFmfAJq Tvgaa0whe5guwEo0MsWd XPOnmtWfoMpzQAH4f8Za Ho67J3HpbZcob3TdEci5 qh55sQLcz2C5jJG3 V3MjZWArdmempSVxwGpz OA5bPMErfsepXLRyiD5k TYEpQ5k9KoRdOoI7BMmk P6WmdgG4HHTwrJMf RSjaRPN2T30yr1V8USBb GSVaKGQ8jFN2tW8pwYpu bjogbGVmdDsgdmVydGlj ZXzjHBjyC767YSCt hHzuWRTglP2cYSCtwPSg tRybXW4rEMQsynvpGujX MIYDR17GM3uSWDHTQSSB TZI9J4TvWwa7RGXl tNmtLQ7hzSJqGUerIe7z aOofaZeuNH4nKVWhxsfe XFJzcD9dUNAxuSXwpTct VU7sZJPpdmxtt128 IeBxIFD9CHEopDVlF6Md xI4zAbUtMNJsQQLxY1Dj uYYxSRgwH507GYelYrW2 KDKsfdUuO4KvWUYg rDtpQfB4c2N6Nf7yQw2b MC3nLAPgTZ30IF37wGRq m4M1qOC0J9OjJMYrmriz enkfgKF7PYTiSQHj xN90pUGlGPliGv6no5E0 o846ITXiKGEpbA22Va5o vOfqHEXuoSSRpG5ehdym x0xgzodjVmTyVGGi CGk6OCl6HEXucZjtDqMo XFJ0FaK2XGW9lUDtrQ6c yYtqoytxmF5cZkd+MjAg WIPjqkE5M1OqRci7 NBTdhEzeXU0tlMNdAFyc Tq2fnZtguQmvYC9nTRKp dkauVXKcyU6dQYChhTSi pYsuQF3vLHTfgewr r397HsPdMIN0LQLwdJEn I8OxrS3lTnAwAZFuRKBw N6OaxIVyPXhyL890TUjf HdY5VFVatdShA5Ec GOClgLafCgP3b7H6Hf0Q GU4oaKA2E4AlQdz6EUIy fXzfJY5tpQOmOQiyWf0i uOfagAobDK9cSFYw zcsoNZFccC3lYSSjgIFq sExlBO5tVYAcylfsm120 OuSvGQD2BNBzkKIoE7Iy sE6dNpRvBEWdZHOw E0JtqQJsKKoxI294YFtf FcC3IGSfduZtH1RwUFGc tWaqDkW8m9V2Hy5IqKEr A8WmI1g0R8QtOjlh dHI+JE22UCEoSA57uQUy pXOso4vocJs7EnQiKGRe BRB5lXbsYXkit9MkEPDp M43zpIKql9Z1AWCx vQctpNLoTxZrkUS5dU3c MTnpgmxtc6wfsgfiXqts z6hmvn31pG13K57oMAwi ZHRoPSIzMCUiIHZh dJlwqm0gzC2sFp0+PGNv tQY9qRO1cA7oVgXfMrD1 EVjnC782SrJszOXiOcud r2tok6ywkNi8KgUp MHEtmyTetFmyZWI6h8Ab Yg51F32iTPuhKOEzXFWc JBAxPQOvgLfhtb6owY0h Ii8+PU4al1fhfd59 jF64yMS+ABUaUKC2bNlu XHphSUPjjY7nHJbyZzX2 WEAaFuEtwN76oBLiCRmn Tw8skVffaGlgGD0c CADhlvolp686RnOpq4tq IMYpqSLoXQohZUV1H57i p3I3AYIlEAFoCEJ3sBN1 jB0yxCxpgyuebYTl dDsgdmVydGljYWwtYWxp N289SZJbhNuiQlNjaUAb Z0dpqwOFFE1aIzuviRN+ AVZvGEM3hTwgDDak PBCpaR8cPNByV5y0JhSc GcG8HYmxI5PumlY3GHOz tAJwZKHvmUNBeP0jlrzl f6zlysxoKaIfNDZd UKm8TJq2UPCjyUjwNmFv PDQ4LwM6RQD1bXXniY8j zYgtzjdrvW5cTuv+RklO OjwvdGQ+PHRkIHN0 pSpoGTyfLKIkrR8zNXHl J7x6WzWoJcF7SBzdC5Fx ryJ7ZAIjeRPyCJPstFKW xJ3kthrbt5iqvqud RbUwJFFsGCi5PAm7VABg mQshZcTdQEW5CaF8RVM7 eFZrsH5iiUvqpuggbQ6e Oyc+TVJOOjwvdGQ+ CTAqCJW1pGumHRbsSXGy gX9rYLTxI9r2YxHiDbP8 CVgpC2VlubT2MGOdtYEy VLUfpXFIuQ2crecx d8vepyrdEeLdJJYlCOc8 VVn6CMZcqBscIsTdBHA0 JkF8BDO4xKSheI1fgBtf llyrlA1vDuv+UGF5 JZF1DM22SJ41G6RiPfhp dGFibGU+PHRhYmxlIHdp ZHRoPScxMDAlJyBzdHls UQ4mSs2yOUGtROBx bGxh (more content not included)... Normal [facility] CBC AUTO DIFFon 04-13-2022 BASO # 0.1 103/ul Normal 0.0-0.1 [facility] Comment on above: Performed By: #### C VDTBH #### [facility] [address] [place] [address] Dr. Reema Mireles Basophils/100 WBC (Bld) 0.6 % Normal 0.2-2.0 [facility] Comment on above: Performed By: #### C VDTBH #### [facility] [address] [place] [address] Dr. Reema Mireles EO # 0.0 103/ul Normal 0.0-0.7 [facility] Comment on above: Performed By: #### C VDTBH #### [facility] [address] [place] [address] Dr. Reema Mireles Eosinophils/100 WBC (Bld) 0.2 % Critically low 0.9-7.0 [facility] Comment on above: Performed By: #### C VDTBH #### [facility] [address] [place] [address] Dr. Reema Mireles Erythrocyte distribution width (RBC) [Ratio] 11.4 % Normal 11.0-15.0 [facility] Comment on above: Performed By: #### C VDTBH #### [facility] [address] [place] [address] Dr. Reema Mireles Hematocrit (Bld) [Volume fraction] 38.3 % Normal 36.0-48.0 [facility] Comment on above: Performed By: #### C VDTBH #### [facility] [address] [place] [address] Dr. Reema Mireles Hemoglobin (Bld) [Mass/Vol] 13.4 g/dL Normal 12.0-16.0 [facility] Comment on above: Performed By: #### C VDTBH #### [facility] [address] [place] [address] Dr. Reema Mireles IG # 0.01 10e3/ul Normal 0.00-0.03 [facility] Comment on above: Performed By: #### C VDTBH #### [facility] [address] [place] [address] Dr. Reema Mireles IG % 0.1 % Normal 0.0-0.5 [facility] Comment on above: Performed By: #### C VDTBH #### [facility] [address] [place] [address] Dr. Reema Mireles LYMPH # 1.8 103/ul Normal 1.2-3.8 [facility] Comment on above: Performed By: #### C VDTBH #### [facility] [address] [place] [address] Dr. Reema Mireles Lymphocytes/100 WBC (Bld) 22.2 % Normal 20.5-60.0 [facility] Comment on above: Performed By: #### C VDTBH #### [facility] [address] [place] [address] Dr. Reema Mireles MANUAL DIFF REQ NO Normal [facility] Comment on above: Performed By: #### C VDTBH #### [facility] [address] [place] [address] Dr. Reema Mireles MCH (RBC) [Entitic mass] 30.6 pg Normal 26.7-34.0 [facility] Comment on above: Performed By: #### C VDTBH #### [facility] [address] [place] [address] Dr. Reema Mireles MCHC (RBC) [Mass/Vol] 35.0 g/dL Normal 29.9-35.2 [facility] Comment on above: Performed By: #### C VDTBH #### [facility] [address] [place] [address] Dr. Reema Mireles MCV (RBC) [Entitic vol] 87.4 fL Normal 81.0-99.0 [facility] Comment on above: Performed By: #### C VDTB #### [facility] [address] [place] [address] Dr. Reema Mireles MONO # 0.7 103/ul Normal 0.3-0.8 [facility] Comment on above: Performed By: #### C VDTBH #### [facility] [address] [place] [address] Dr. Reeam Mireles Monocytes/100 WBC (Bld) 8.2 % Normal 1.7-12.0 [facility] Comment on above: Performed By: #### C VDTBH #### [facility] [address] [place] [address] Dr. Reema Mireles NEUT # 5.5 103/ul Normal 1.4-6.5 [facility] Comment on above: Performed By: #### C VDTB #### [facility] [address] [place] [address] Dr. Reema Mireles Neutrophils/100 WBC (Bld) 68.7 % Normal 43.0-75.0 [facility] Comment on above: Performed By: #### C VDTBH #### [facility] [address] [place] [address] Dr. Reema Mireles Platelet mean volume (Bld) [Entitic vol] 10.1 fL Normal 9.5-13.5 [facility] Comment on above: Performed By: #### C VDTBH #### [facility] [address] [place] [address] Dr. Reema Mireles PLT 404 103/ul Normal 150-450 [facility] Comment on above: Performed By: #### C VDTBH #### [facility] [address] [place] [address] Dr. Reema Mireles RBC 4.38 106/ul Normal 4.20-5.40 [facility] Comment on above: Performed By: #### C VDTBH #### [facility] [address] [place] [address] Dr. Reema Mireles WBC 8.0 103/ul Normal 4.0-11.0 [facility] Comment on above: Performed By: #### C [facility] #### [facility] [address] HEAD WO CONon [...] AURELIA CARLOS Date: 2022-04-13 16:29 Normal [facility] Discharge Instructionson Discharge Instructions [id number] #[id number]:127 Normal [facility] ED Note-Physicianon 04-13-20 22 ED Note-Physician Basic Information Time Seen: Lata Hardy M.D. 04/12/2022 19:56 Chief Complaint Pt. presents to the ed with c/o headache and vertigo since thursday. Pt. was seen at [facility] and started on prednisone. pt. stopped taking [...] The patient states she was seen at [facility] discharged home. She went to urgent [...] neurological deficit. She has been seen at [facility] and started on prednisone. Possible her [...] ADRYAN MARIE In 3 days 04/15/2022 EDT [facility] [place] [address]- Business (1) Additional Instructions: Return to the [...] Diagnostic Results No qualifying data available. Normal [facility] Comment on above: Result Comment: Elec tronically Signed By: Antony Villa, Lata Baxter\.br\Date and Time Signed: 04/13/22 04:56 EDT ER URINE PROFILEon 2 Bilirubin Ql (U) Negative Normal NEGATIVE [facility] Comment on above: Performed By: #### P REGU, ERUR #### [facility] [address] [place] [address] Dr. Reema Mireles Clarity (U) CLEAR Normal CLEAR [facility] Comment on above: Performed By: #### P REGU, ERUR #### [facility] [address] [place] [address] Dr. Reema Mireles Color (U) LT. YELLOW Normal YELLOW [facility] Comment on above: Performed By: #### P REGU, ERUR #### [facility] [address] [address] [address] Reema ELIZALDE A micrscopic examination will be performed if indicated. Normal [facility] Comment on above: Performed By: #### P REGU, ERUR #### [facility] [address] [place] [address] Dr. Reema Mireles Glucose Ql (U) Negative Normal NEGATIVE [facility] Comment on above: Performed By: #### P REGU, ERUR #### [facility] [address] [place] [address] Dr. Reema Mireles Hemoglobin Ql (U) Negative Normal NEGATIVE The [facility] Comment on above: Performed By: #### P REGU, ERUR #### [facility] [address] [place] [address] Dr. Reema Mireles Ketones Ql (U) Negative Normal NEGATIVE [facility] Comment on above: Performed By: #### P REGU, ERUR #### [facility] [address] [place] [address] Dr. Reema Mireles LEUKOCYTES Negative Normal NEGATIVE [facility] Comment on above: Performed By: #### P REGU, ERUR #### [facility] [address] [place] [address] Dr. Reema Mireles Nitrite Ql (U) Negative Normal NEGATIVE [facility] Comment on above: Performed By: #### P REGU, ERUR #### [facility] [address] [place] [address] Dr. Reema Mireles pH (U) 6.5 [pH] Normal 5-9 [facility] Comment on above: Performed By: #### P REGU, ERUR #### [facility] [address] [place] [address] Dr. Reema Mireles SPEC GRAVITY 1.005 Normal 1.005-<=1.025 [facility] Comment on above: Performed By: #### P REGU, ERUR #### [facility] [address] [place] [address] Dr. Reema Mireles UA PROTEIN Negative Normal NEGATIVE/ TRACE [facility] Comment on above: Performed By: #### P REGU, ERUR #### [facility] [address] [place] [address] Dr. Reema Mireles UR MICRO IND NOT INDICATED Normal [facility] Comment on above: Performed By: #### P REGU, ERUR #### [facility] [address] [place] [address] Dr. Reema Mireles Urobilinogen Qn (U) 0.2 {Renny'U}/dL Normal 0.2 - 1. 0 [facility] Comment on above: Performed By: #### P REGU, ERUR #### [facility] [address] [address] [address] Reema Mireles URon 04-13-2022 , QUAL Negative Normal NEGATIVE [facility] Comment on above: Performed By: #### P REGU, ERUR #### [facility] [address] [address] [address] Reema Mireles PROF CHEM 8 (BAS METB)on Anion gap [Moles/Vol] 14.0 mmol/L Normal [facility] Comment on above: Performed By: #### B MP, TSH #### [facility] [address] [address] [address] Reema Mireles Calcium [Mass/Vol] 9.2 mg/dL Normal 8.5-10.1 [facility] Comment on above: Performed By: #### B MP, TSH #### [facility] [address] [address] [address] Reema Mireles Chloride [Moles/Vol] 102 mmol/L Normal 98-107 [facility] Comment on above: Performed By: #### B MP, TSH #### [facility] [address] [address] [address] Reema Mireles CO2 [Moles/Vol] 26.3 mmol/L Normal 21.0-32.0 [facility] Comment on above: Performed By: #### B MP, TSH #### [facility] [address] [address] [address] Reema Mireles Creatinine [Mass/Vol] 0.65 mg/dL Normal 0.55-1.02 [facility] Comment on above: Performed By: #### B MP, TSH #### [facility] [address] [address] [address] Reema Mireles EGFR-AF JORDANIAN >60 Normal >=60 [facility] Comment on above: Performed By: #### B MP, TSH #### [facility] [address] [address] [address] Reema Mireles EGFR-NON AF JORDANIAN >60 Normal >=60 [facility] Comment on above: Performed By: #### B MP, TSH #### [facility] [address] [address] [address] Reema Mireles Glucose [Mass/Vol] 92 mg/dL Normal 74-106 [facility] Comment on above: Performed By: #### B MP, TSH #### [facility] [address] [address] [address] Reema Mireles Potassium [Moles/Vol] 3.3 mmol/L Critically low 3.5-5.1 [facility] Comment on above: Performed By: #### B MP, TSH #### [facility] [address] [address] [address] Reema Mireles Sodium [Moles/Vol] 139 mmol/L Normal 136-145 [facility] Comment on above: Performed By: #### B MP, TSH #### [facility] [address] [address] [address] Reema Mireles Urea nitrogen [Mass/Vol] 8.0 mg/dL Normal 7.0-18.0 [facility] Comment on above: Performed By: #### B MP, TSH #### [facility] [address] [address] [address] Reema Mireles Urea nitrogen/Creatinine [Mass ratio] 12.3 mg/mg Normal [facility] Comment on above: Performed By: #### B MP, TSH #### [facility] [address] [place] [address] Dr. Reema Mireles TSHon 04-13-2022 TSH 1.293 uIU/mL Normal 0.358-3.740 [facility] Comment on above: Performed By: #### B MP, TSH #### [facility] [address] [place] [address] Dr. Reema Mireles Consent for Treatmenton 03-28 Consent for Treatment [id number] Normal [facility] ED Clinical Summaryon 2021 ED Clinical Summary [address] [place] [id number] ED Clinical Summary Person Information Name: JUANPABLO CHAPARRO Florinda/[facility] Age: 21 Years : 2000 Sex: Female Language: Yakut PCP: ADRYAN MARIE MD Marital Status: Single Phone: [phone] Visit Id: Visit Reason: Vertigo - recurrent; [...] 04/12/2022 21:07:38 04/12/2022 21:07:38 04/12/2022 21:07:38 ADDRESS: [address] [place] [id number] PHYS DOC NOTES: MEDICAL INFORMATION: Prescriptions Given: PATIENT EDUCATION INFORMATION: Instructions: General Headache Without Cause; Vertigo Follow up: With: Address: When: ADRYAN AMINJAILENE [address] [place], [place] [id number] Business (1) In 3 days 04/15/2022 Comments: Return to the emergency room if her headache gets worse, vertigo becomes persistent or any new symptoms DIAGNOSIS: 1:Vertigo; 2:Headache Normal [facility] ED Patient Education Noteon 04-12-2022 [...] you feel dizzy. General instructions ? Take swcm-pcw-ecojeyb and prescription medicines only as told by [...] Reviewed: 08/08/2019 Elsevier Patient Education ? 2020 [employer] Neurology General Headache Without Cause A [...] with your condition: Managing pain ? Take ybuq-jjc-gatyjdf and prescription medicines only as told by [...] of beer (more content not included)... Normal [facility] ED Patient Summaryon 022 ED Patient Summary [address] [place] [id number] Patient Discharge Instructions Person Information Name: JUANPABLO CHAPARRO Age: 21 Years Arrival Date: 04/12/2022 19:22:40 Discharge Diagnosis: 1:Vertigo; 2:Headache Primary Care Physician: ADRYAN MARIE MD Provider Information Primary Provider: Lata Hardy M.D. Advanced Supervisor [employer]:None The exam and treatment you received in the Emergency Department were for an urgent problem and are not intended as complete care. It is important that you follow up with a doctor, nurse practitioner, or physician?s clinical education assistant for ongoing care. If your symptoms [...] Instructions: With: Address: When: ADRYAN MARIE [address] [place], [place] [id number] [employer] [email or web address] In 3 days 04/15/2022 Comments: Return to [...] opioids can be used to help relieve okyzmmni-on-ocqzkd pain and are often prescribed following a [...] addiction, tel (more content not included)... Normal [facility] CBC AUTO DIFFon 04-09-2022 BASO # 0.1 103/ul Normal 0.0-0.1 [facility] Comment on above: Performed By: #### B MP, TSH #### [facility] [address] [address] [address] Reema Mireles Basophils/100 WBC (Bld) 0.5 % Normal 0.2-2.0 [facility] Comment on above: Performed By: #### B MP, TSH #### [facility] [address] [place] [address] Dr. Reema Mireles EO # 0.1 103/ul Normal 0.0-0.7 [facility] Comment on above: Performed By: #### B MP, TSH #### [facility] [address] [place] [address] Dr. Reema Mireles Eosinophils/100 WBC (Bld) 1.0 % Normal 0.9-7.0 [facility] Comment on above: Performed By: #### B MP, TSH #### [facility] [address] [place] [address] Dr. Reema Mireles Erythrocyte distribution width (RBC) [Ratio] 11.7 % Normal 11.0-15.0 [facility] Comment on above: Performed By: #### B GURPREET, TSH #### [facility] [address] [place] [address] Dr. Reema Mireles Hematocrit (Bld) [Volume fraction] 37.2 % Normal 36.0-48.0 [facility] Comment on above: Performed By: #### B GURPREET, TSH #### [facility] [address] [place] [address] Dr. Reema Mireles Hemoglobin (Bld) [Mass/Vol] 12.8 g/dL Normal 12.0-16.0 [facility] Comment on above: Performed By: #### B GURPREET, TSH #### [facility] [address] [place] [address] Dr. Reema Mireles IG # 0.02 10e3/ul Normal 0.00-0.03 [facility] Comment on above: Performed By: #### B MP, TSH #### [facility] [address] [place] [address] Dr. Reema Mireles IG % 0.2 % Normal 0.0-0.5 [facility] Comment on above: Performed By: #### B MP, TSH #### [facility] [address] [place] [address] Dr. Reema Mireles LYMPH # 1.8 103/ul Normal 1.2-3.8 [facility] Comment on above: Performed By: #### B GURPREET, TSH #### [facility] [address] [place] [address] Dr. Reema Mireles Lymphocytes/100 WBC (Bld) 19.0 % Critically low 20.5-60.0 [facility] Comment on above: Performed By: #### B MP, TSH #### [facility] [address] [place] [address] Dr. Reema Mireles MANUAL DIFF REQ NO Normal [facility] Comment on above: Performed By: #### B MP, TSH #### [facility] [address] [place] [address] Dr. Reema Mireles MCH (RBC) [Entitic mass] 30.4 pg Normal 26.7-34.0 [facility] Comment on above: Performed By: #### B MP, TSH #### [facility] [address] [place] [address] Dr. Reema Mireles MCHC (RBC) [Mass/Vol] 34.4 g/dL Normal 29.9-35.2 [facility] Comment on above: Performed By: #### B MP, TSH #### [facility] [address] [place] [address] Dr. Reema Mireles MCV (RBC) [Entitic vol] 88.4 fL Normal 81.0-99.0 [facility] Comment on above: Performed By: #### B MP, TSH #### [facility] [address] [place] [address] Dr. Reema Mireles MONO # 0.7 103/ul Normal 0.3-0.8 [facility] Comment on above: Performed By: #### B MP, TSH #### [facility] [address] [place] [address] Dr. Reema Mireles Monocytes/100 WBC (Bld) 6.8 % Normal 1.7-12.0 [facility] Comment on above: Performed By: #### B MP, TSH #### [facility] [address] [place] [address] Dr. Reema Mireles NEUT # 7.0 103/ul Critically high 1.4-6.5 [facility] Comment on above: Performed By: #### B MP, TSH #### [facility] [address] [place] [address] Dr. Reema Mireles Neutrophils/100 WBC (Bld) 72.5 % Normal 43.0-75.0 [facility] Comment on above: Performed By: #### B MP, TSH #### [facility] [address] [place] [address] Dr. Reema Mireles Platelet mean volume (Bld) [Entitic vol] 10.3 fL Normal 9.5-13.5 [facility] Comment on above: Performed By: #### B MP, TSH #### [facility] [address] [place] [address] Dr. Reema Mireles PLT 358 103/ul Normal 150-450 [facility] Comment on above: Performed By: #### B MP, TSH #### [facility] [address] [place] [address] Dr. Reema Mireles RBC 4.21 106/ul Normal 4.20-5.40 [facility] Comment on above: Performed By: #### B MP, TSH #### [facility] [address] [place] [address] Dr. Reema Mireles WBC 9.7 103/ul Normal 4.0-11.0 [facility] Comment on above: Performed By: #### B MP, TSH #### [facility] [address] [place] [address] Dr. Reema Mireles CULTURE BLOODon 04-09-2022 Microscopic examination of blood, culture Culture Observations: NO GROWTH AT 5 DAYS. Normal [facility] Comment on above: Performed By: #### B MP, TSH #### [facility] [address] [place] [address] Dr. Reema Mireles ER URINE PROFILEon 2 Bilirubin Ql (U) Negative Normal NEGATIVE [facility] Comment on above: Performed By: #### B MP, TSH #### [facility] [address] [place] [address] Dr. Reema Mireles Clarity (U) CLEAR Normal CLEAR [facility] Comment on above: Performed By: #### B MP, TSH #### [facility] [address] [place] [address] Dr. Reema Mireles Color (U) LT. YELLOW Normal YELLOW [facility] Comment on above: Performed By: #### B MP, TSH #### [facility] [address] [place] [address] Dr. Reema ELIZALDE A micrscopic examination will be performed if indicated. Normal [facility] Comment on above: Performed By: #### B MP, TSH #### [facility] [address] [place] [address] Dr. Reema Mireles Glucose Ql (U) Negative Normal NEGATIVE [facility] Comment on above: Performed By: #### B MP, TSH #### [facility] [address] [place] [address] Dr. Reema Mireles Hemoglobin Ql (U) TRACE-INTACT Abnormal NEGATIVE [facility] Comment on above: Performed By: #### B MP, TSH #### [facility] [address] [place] [address] Dr. Reema Mireles Ketones Ql (U) Negative Normal NEGATIVE [facility] Comment on above: Performed By: #### B MP, TSH #### [facility] [address] [place] [address] Dr. Reema Mireles LEUKOCYTES Negative Normal NEGATIVE [facility] Comment on above: Performed By: #### B MP, TSH #### [facility] [address] [place] [address] Dr. Reema Mireles Nitrite Ql (U) Negative Normal NEGATIVE [facility] Comment on above: Performed By: #### B MP, TSH #### [facility] [address] [place] [address] Dr. Reema Mireles pH (U) 5.5 [pH] Normal 5-9 [facility] Comment on above: Performed By: #### B MP, TSH #### [facility] [address] [place] [address] Dr. Reema Mireles SPEC GRAVITY <=1.005 Abnormal 1.005-<=1.025 [facility] Comment on above: Performed By: #### B MP, TSH #### [facility] [address] [address] [address] Reema Mireles UA PROTEIN Negative Normal NEGATIVE/ TRACE [facility] Comment on above: Performed By: #### B MP, TSH #### [facility] [address] [address] [address] Reema Mireles UR MICRO IND INDICATED Normal [facility] Comment on above: Performed By: #### B MP, TSH #### [facility] [address] [address] [address] Reema Mireles Urobilinogen Qn (U) 0.2 {Renny'U}/dL Normal 0.2 - 1. 0 [facility] Comment on above: Performed By: #### B MP, TSH #### [facility] [address] [place] [address] Dr. Reema Mireles LACTATE/LACTIC ACIDon 2021 Lactate [Moles/Vol] 2.2 mmol/L Critically high 0.4-1.9 [facility] Comment on above: Performed By: #### B MP, TSH #### [facility] [address] [place] [address] Dr. Reema Mireles URon 04-09-2022 , QUAL Negative Normal NEGATIVE [facility] Comment on above: Performed By: #### B MP, TSH #### [facility] [address] [place] [address] Dr. Reema Mireles PROF 14(COMP METB)on 022 Albumin [Mass/Vol] 4.5 g/dL Normal 3.4-5.0 [facility] Comment on above: Performed By: #### C MP #### [facility] [address] [address] [address] Reema Mireles Albumin/Globulin [Mass ratio] 1.3 {ratio} Normal [facility] Comment on above: Performed By: #### C MP #### [facility] [address] [address] [address] Reema Mireles ALP [Catalytic activity/Vol] 83 U/L Normal 46-116 [facility] Comment on above: Performed By: #### C MP #### [facility] [address] [address] [address] Reema Mireles ALT [Catalytic activity/Vol] 26 U/L Normal 14-59 [facility] Comment on above: Performed By: #### C MP #### [facility] [address] [address] [address] Reema Mireles Anion gap [Moles/Vol] 14.9 mmol/L Normal [facility] Comment on above: Performed By: #### C MP #### [facility] [address] [address] [address] Reema Mireles AST [Catalytic activity/Vol] 12 U/L Critically low 15-37 [facility] Comment on above: Performed By: #### C MP #### [facility] [address] [address] [address] Reema Mireles Bilirubin [Mass/Vol] 0.3 mg/dL Normal 0.2-1.0 [facility] Comment on above: Performed By: #### C MP #### [facility] [address] [address] [address] Reema Mireles Calcium [Mass/Vol] 9.6 mg/dL Normal 8.5-10.1 [facility] Comment on above: Performed By: #### C MP #### [facility] [address] [address] [address] Reema Mireles Chloride [Moles/Vol] 103 mmol/L Normal 98-107 [facility] Comment on above: Performed By: #### C MP #### [facility] [address] [address] [address] Reema Mireles CO2 [Moles/Vol] 24.4 mmol/L Normal 21.0-32.0 [facility] Comment on above: Performed By: #### C MP #### [facility] [address] [address] [address] Reema Mireles Creatinine [Mass/Vol] 0.87 mg/dL Normal 0.55-1.02 [facility] Comment on above: Performed By: #### C MP #### [facility] [address] [address] [address] Reema Mireles EGFR-AF JORDANIAN >60 Normal >=60 [facility] Comment on above: Performed By: #### C MP #### [facility] [address] [address] [address] Reema Mireles EGFR-NON AF JORDANIAN >60 Normal >=60 [facility] Comment on above: Performed By: #### C MP #### [facility] [address] [address] [address] Reema Mireles Globulin (S) [Mass/Vol] 3.5 g/dL Normal [facility] Comment on above: Performed By: #### C MP #### [facility] [address] [address] [address] Reema Mireles Glucose [Mass/Vol] 109 mg/dL Critically high 74-106 [facility] Comment on above: Performed By: #### C MP #### [facility] [address] [address] [address] Reema Mireles Potassium [Moles/Vol] 3.3 mmol/L Critically low 3.5-5.1 [facility] Comment on above: Performed By: #### C MP #### [facility] [address] [place] [address] Dr. Reema Mireles Protein [Mass/Vol] 8.0 g/dL Normal 6.4-8.2 [facility] Comment on above: Performed By: #### C MP #### [facility] [address] [address] [address] Reema Mireles Sodium [Moles/Vol] 139 mmol/L Normal 136-145 [facility] Comment on above: Performed By: #### C MP #### [facility] [address] [address] [address] Reema Mireles Urea nitrogen [Mass/Vol] 9.0 mg/dL Normal 7.0-18.0 [facility] Comment on above: Performed By: #### C MP #### [facility] [address] [place] [address] Dr. Reema Mireles Urea nitrogen/Creatinine [Mass ratio] 10.3 mg/mg Normal [facility] Comment on above: Performed By: #### C MP #### [facility] [address] [place] [address] Dr. Reema Mireles URINE MICROSCOPIC ONLYon BACTERIA NONE SEEN Normal NONE SEEN [facility] Comment on above: Performed By: #### B MP, TSH #### [facility] [address] [place] [address] Dr. Reema Mireles Bacteria identified Cx Nom (U) NOT INDICATED Normal [facility] Comment on above: Performed By: #### B MP, TSH #### [facility] [address] [place] [address] Dr. Reema Mireles CAST NONE SEEN Normal NONE SEEN [facility] Comment on above: Performed By: #### B MP, TSH #### [facility] [address] [place] [address] Dr. Reema Mireles Crystals LM Nom (Urine sed) NONE SEEN Normal NONE SEEN [facility] Comment on above: Performed By: #### B MP, TSH #### [facility] [address] [place] [address] Dr. Reema Mireles Epithelial cells LM Ql (Urine sed) RARE Normal NONE SEEN /RARE [facility] Comment on above: Performed By: #### B MP, TSH #### [facility] [address] [place] [address] Dr. Reema Mireles MUCOUS NONE SEEN Normal NONE SEEN [facility] Comment on above: Performed By: #### B MP, TSH #### [facility] [address] [place] [address] Dr. Reema Mireles RBC 0-2 Normal 0-2 [facility] Comment on above: Performed By: #### B MP, TSH #### [facility] [address] [place] [address] Dr. Reema Mireles WBC NONE SEEN Normal NONE SEEN [facility] Comment on above: Performed By: #### B MP, TSH #### [facility] [address] [place] [address] Dr. Reema Mireles CBC AUTO DIFFon 10-25-2021 BASO # 0.0 103/ul Normal 0.0-0.1 [facility] Comment on above: Performed By: #### C BC #### [facility] [address] [place] [address] Dr. Reema Mireles Basophils/100 WBC (Bld) 0.6 % Normal 0.2-2.0 [facility] Comment on above: Performed By: #### C BC #### [facility] [address] [place] [address] Dr. Reema Mireles EO # 0.1 103/ul Normal 0.0-0.7 [facility] Comment on above: Performed By: #### C BC #### [facility] [address] [place] [address] Dr. Reema Mireles Eosinophils/100 WBC (Bld) 1.8 % Normal 0.9-7.0 [facility] Comment on above: Performed By: #### C BC #### [facility] [address] [place] [address] Dr. Reema Mireles Erythrocyte distribution width (RBC) [Ratio] 11.9 % Normal 11.0-15.0 [facility] Comment on above: Performed By: #### C BC #### [facility] [address] [place] [address] Dr. Reema Mireles Hematocrit (Bld) [Volume fraction] 38.1 % Normal 36.0-48.0 [facility] Comment on above: Performed By: #### C BC #### [facility] [address] [place] [address] Dr. Reema Mireles Hemoglobin (Bld) [Mass/Vol] 13.1 g/dL Normal 12.0-16.0 [facility] Comment on above: Performed By: #### C BC #### [facility] [address] [place] [address] Dr. Reema Mireles IG # 0.01 10e3/ul Normal 0.00-0.03 [facility] Comment on above: Performed By: #### C BC #### [facility] [address] [place] [address] Dr. Reema Mireles IG % 0.1 % Normal 0.0-0.5 [facility] Comment on above: Performed By: #### C BC #### [facility] [address] [place] [address] Dr. Reema Mireles LYMPH # 1.9 103/ul Normal 1.2-3.8 [facility] Comment on above: Performed By: #### C BC #### [facility] [address] [place] [address] Dr. Reema Mireles Lymphocytes/100 WBC (Bld) 27.8 % Normal 20.5-60.0 [facility] Comment on above: Performed By: #### C BC #### [facility] [address] [place] [address] Dr. Reema Mireles MANUAL DIFF REQ NO Normal [facility] Comment on above: Performed By: #### C BC #### [facility] [address] [place] [address] Dr. Reema Mireles MCH (RBC) [Entitic mass] 30.5 pg Normal 26.7-34.0 [facility] Comment on above: Performed By: #### C BC #### [facility] [address] [place] [address] Dr. Reema Mireles MCHC (RBC) [Mass/Vol] 34.4 g/dL Normal 29.9-35.2 [facility] Comment on above: Performed By: #### C BC #### [facility] [address] [place] [address] Dr. Reema Mireles MCV (RBC) [Entitic vol] 88.8 fL Normal 81.0-99.0 [facility] Comment on above: Performed By: #### C BC #### [facility] [address] [place] [address] Dr. Reema Mireles MONO # 0.8 103/ul Normal 0.3-0.8 [facility] Comment on above: Performed By: #### C BC #### [facility] [address] [place] [address] Dr. Reema Mireles Monocytes/100 WBC (Bld) 11.2 % Normal 1.7-12.0 [facility] Comment on above: Performed By: #### C BC #### [facility] [address] [place] [address] Dr. Reema Mireles NEUT # 4.0 103/ul Normal 1.4-6.5 [facility] Comment on above: Performed By: #### C BC #### [facility] [address] [place] [address] Dr. Reema Mireles Neutrophils/100 WBC (Bld) 58.5 % Normal 43.0-75.0 [facility] Comment on above: Performed By: #### C BC #### [facility] [address] [place] [address] Dr. Reema Mireles Platelet mean volume (Bld) [Entitic vol] 10.0 fL Normal 9.5-13.5 [facility] Comment on above: Performed By: #### C BC #### [facility] [address] [place] [address] Dr. Reema Mireles PLT 361 103/ul Normal 150-450 [facility] Comment on above: Performed By: #### C BC #### [facility] [address] [place] [address] Dr. Reema Mireles RBC 4.29 106/ul Normal 4.20-5.40 [facility] Comment on above: Performed By: #### C BC #### [facility] [address] [place] [address] Dr. Reema Mireles WBC 6.8 103/ul Normal 4.0-11.0 [facility] Comment on above: Performed By: #### C BC #### [facility] [address] [place] [address] Dr. Reema Mireles PREG QUANT HCGon 10-25-2021 HCG QUANT 1 mIU/mL Normal [facility] Comment on above: Performed By: #### P REGQNT #### [facility] [address] [place] [address] Dr. Reema Mireles HCG RANGE SEE BELOW Normal [facility] Comment on above: Result Comment: 5-50 0-1 WEEK 40-300 1-2 WEEKS 100-1,000 2-3 WEEKS 500-6,000 3-4 WEEKS 5,000-200,000 1-2 MONTHS 10,000-100,000 2-3 MONTHS 3,000-50,000 2ND TRIMESTER 1,000-50,000 3RD TRIMESTER Performed By: #### P REGQNT #### [facility] [id number] Reema Mireles Covid-19 PCR ([facility])on 09-29 SARS-CoV-2 (COVID-19) RNA FRANKIE+probe Ql (Unsp spec) Not detected Normal NOT DETECTED [facility] Comment on above: Result Comment: This test is not yet approved or cleared by the [place] FDA. When there are no FDA-approved or cleared tests available, and other criteria are met, FDA can make tests available under an emergency access mechanism called an Emergency Use Authorization (EUA). The EUA for this test is supported by the [employer] of Health and Human Service's (HHS's) [...] SARS-CoV-2. Performed By: #### C VDTB #### [facility] [address] [place], [place] [address] Dr. Reema Mireles Vital Signs Date Time Vital Sign Value Performing Clinician Facility 11-12-2023 14:15-0500 Body weight 108.86 kg TSO3 Work Phone: [facility] 11-12-2023 14:15-0500 Diastolic blood pressure 72 mm[Hg] [facility] Work Phone: [facility] 11-12-2023 14:15-0500 Systolic blood pressure 122 mm[Hg] Devan Tello DO Work Phone: [facility] 04-12-2022 21:04-0400 Diastolic blood pressure 84 mm[Hg] [facility] 04-12-2022 21:04-0400 Heart rate 82 /min [facility] 04-12-2022 21:04-0400 Respiratory rate 16 /min [facility] 04-12-2022 21:04-0400 SaO2% (BldA) [Mass fraction] 98 % [facility] 04-12-2022 21:04-0400 Systolic blood pressure 120 mm[Hg] [facility] 04-12-2022 20:32-0400 gluc 80 mg/dL [facility] Comment on above: Result Comment: not taken due to pt refu jimmie of any injection 04-12-2022 20:32-0400 gluc [facility] 04-12-2022 19:25-0400 Body temperature 99.32 [degF] [facility] 04-12-2022 19:25-0400 Diastolic blood pressure 84 mm[Hg] [facility] 04-12-2022 19:25-0400 Heart rate 90 /min [facility] 04-12-2022 19:25-0400 Respiratory rate 18 /min [facility] 04-12-2022 19:25-0400 SaO2% (BldA) [Mass fraction] 98 % [facility] 04-12-2022 19:25-0400 Systolic blood pressure 118 mm[Hg] [facility] 04-09-2022 12:20-0400 Body height 165.1 cm Deonna Back Other [facility] Other 04-09-2022 12:20-0400 Body mass index (BMI) [Ratio] 35.61 kg/m2 Deonna Nazanin Other [facility] Other 04-09-2022 12:20-0400 Body temperature 98.4 [degF] Deonna Nazanin Other [facility] Other 04-09-2022 12:20-0400 Body weight 97.07 kg Deonna Nazanin Other [facility] Other 04-09-2022 12:20-0400 Diastolic blood pressure 83 mm[Hg] Deonna Nazanin Other [facility] Other 04-09-2022 12:20-0400 Respiratory rate 18 /min Deonna Nazanin Other [facility] Other 04-09-2022 12:20-0400 SaO2% (BldA) [Mass fraction] 99 % Deonna Nazanin Other [facility] Other 04-09-2022 12:20-0400 Systolic blood pressure 135 mm[Hg] Deonna Nazanin Other [facility] Other 04-02-2022 19:00-0400 Body height 165.1 cm Deonna Nazanin Other [facility] Other 04-02-2022 19:00-0400 Body mass index (BMI) [Ratio] 35.71 kg/m2 Deonna Nazanin Other [facility] Other 04-02-2022 19:00-0400 Body temperature 98.1 [degF] Deonna Nazanin Other [facility] Other 04-02-2022 19:00-0400 Body weight 97.34 kg Deonna Back Other [facility] Other 04-02-2022 19:00-0400 Diastolic blood pressure 83 mm[Hg] Deonna Back Other [facility] Other 04-02-2022 19:00-0400 Respiratory rate 18 /min Deonna Back Other [facility] Other 04-02-2022 19:00-0400 SaO2% (BldA) [Mass fraction] 100 % Deonna Back Other [facility] Other 04-02-2022 19:00-0400 Systolic blood pressure 134 mm[Hg] Deonna Back Other [facility] Other Encounters Encounter Date Encounter Type Care Provider Facility Start: 12-28-2023 End: 12-28-2023 ambulatory CYDNEY DERIC Not Available Start: 12-14-2023 End: 12-14-2023 ambulatory DEVAN OMER Not Available Start: 11-26-2023 End: 11-26-2023 ambulatory CYDNEY DERIC Not Available Start: 11-12-2023 End: 11-12-2023 ambulatory [...] [facility] Department Unsolicited Start: 10-15-2023 End: 01-18-2024 ambulatory CYDNEY LEOS Not Available Start: 09-17-2023 [...] 04-12-2022 End: 04-12-2022 [facility] Start: 04-10-2022 End: 04-10-2022 ambulatory Deonna Back Other [facility] Other Start: 04-10-2022 Telephone encounter Deonna Back [facility] Start: 04-09-2022 End: 04-09-2022 ambulatory Deonna Back Other [facility] Other Start: 04-09-2022 Office outpatient vi sit 15 minutes Deonna Back [facility] Start: 04-09-2022 End: 04-09-[address] LUIS ANTONIO SUTTON Facility:[facility] Start: 04-02-2022 (URG) Urgent Care Visit Deonna pace [facility] Start: 04-02-2022 End: 04-02-2022 ambulatory Deonna Back Other [facility] Other Start: 10-25-2021 End: 10-25-[address] ADRYAN MARIE Facility:[facility] Start: 10-24-2021 Encounter for preprocedural laboratory examination DR DEVAN TELLO [facility] Start: 10-22-2021 End: 10-23-[address] ADRYAN MARIE Facility:[facility] Start: 10-22-2021 End: 10-23-2021 Encounter for preprocedural laboratory examination DR ADRYAN MARIE Facility:[facility] Start: 10-19-2021 Encounter for other preprocedural examination DR DEVAN TELLO [facility] Start: 10-17-2021 End: 10-18-[address] ADRYAN MARIE Facility:[facility] Start: 10-17-2021 End: 10-18-2021 Encounter for other preprocedural examination DR ADRYAN MARIE Facility:[facility] Procedures Date Procedure Procedure Detail Performing Clinician Start: 11-12-2023 Urnls dip stick/tabl et rgnt non-auto w/o micrscp Devan Tello DO Work Phone: Start: 11-03-2023 ALL CBC WITH AUTO DIFF Cyndey FARR Work Phone: Plan of Treatment Date Care Activity Detail Author Start: 11-26-2023 End: 11-26-2023 Patient encounter procedure 11/26/2023 11:00 AM EST Routine [facility] [address] [place] [id number] Cydney Leos PA [address] [place] [address] [facility] Start: 11-26-2023 End: 11-26-2023 Professional / ancillary services management 11/26/2023 10:30 AM EST Ancillary Procedure [facility] [address] [place] [id number] [facility] Start: 11-12-2023 End: 11-12-2024 US for US OB SCAN FOR GROWTH Imaging Routine Excessive growth affecting management of in third trimester, single or unspecified fetus Expected: 11/12/2023 (Approximate), Expires: 11/12/2024 [facility] Work Phone: Comment on above: Expected: 11/12/2023 (Approximate), Expires: 11/12/2024 Start: 11-12-2023 End: 11-12-2023 Patient encounter procedure 11/12/2023 10:50 AM EST Routine [facility] [address] [place] [id number] Devan Tello DO [address] [place] [address] [facility] Payers Date Payer Category Payer Unknown [facility] MEDICAID [id number] 2023-Present [address] [place] [address] [id number] 2023 Medicaid [id number] 2001 Unknown [id number] 2.16.840.1.608527.3.579.2. 593 2001 Unknown [id number] 2.16.840.1.193475.3.579.2. 593 2001 Unknown [id number] 2.16.840.1.105282.3.579.2. 593 2001 Unknown [id number] 2.16.840.1.110606.3.579.2. 593 2001 Unknown [id number] 2.16.840.1.792623.3.579.2. 593 2001 Unknown [id number] 2.16.840.1.408345.3.579.2. 593 2001 Unknown [id number] 2.16.840.1.620961.3.579.2. 593 2001 Unknown [id number] 2.16.840.1.807742.3.579.2. 593 2001 Unknown [id number] 2.16.840.1.590316.3.579.2. 593 2001 Unknown [id number] 2.16.840.1.799147.3.579.2. 593 2001 Unknown [id number] 2.16.840.1.186570.3.579.2. 593 2001 Unknown [id number] 2.16.840.1.939422.3.579.2. 1259 2001 Unknown [id number] 2.16.840.1.173465.3.579.2. 1259 2001 Unknown [id number] 2.16.840.1.522410.3.579.2. 1259 2001 Unknown [id number] 2.16.840.1.904247.3.579.2. 1259 2001 Unknown [id number] 2.16.840.1.979875.3.579.2. 1259 2001 Unknown [id number] 2.16.840.1.929987.3.579.2. 1259 2001 Unknown [id number] 2.16.840.1.993560.3.579.2. 1259 1958 [facility] [id number] 2.16.840.1.577941.19 Social History Date Type Detail Facility Unknown if ever smoked [facility] Other Sex Assigned At [facility] Other Tobacco smoking status No Smoking Status Entered [facility] Start: 06-20-2023 Tobacco smoking status TNIS Tobacco smoking consumption unknown [facility] Start: 10-15-2023 Alcohol intake Lifetime non-d hermes (finding) [facility] Start: 06-20-2023 Tobacco Comment Current smoker (frequency unknown) [facility] Start: 05-06-2023 [facility] Start: 2000 Sex Assigned At Not on file [facility] Goals Date Patient Goal Desired Activity /State Personal health goal Functional Status Date Assessment Result Facility 04-12-2022 Functional Status N/A [facility] History of Present illness Narrative 11-12-2023 Ciarra [...] Devan Tello DO documented in this encounter [facility] Discharge instructions 04-12-2022 Note Date & Type [...] help with your condition: Managing pain Take suoz-upj-cduihhl and prescription medicines only as told by [...] 09/14/2006 Document Revised: 04/04/2019 Document Reviewed: 04/04/2019 [employer] Patient Education 2020 [employer]. 04/12/2022 21:07:38 Vertigo Vertigo Vertigo is the [...] if you feel dizzy. General instructions Take imlz-oat-rngzqos and prescription medicines only as told by [...] 06/24/2006 Document Revised: 08/08/2019 Document Reviewed: 08/08/2019 [employer] Patient Education 2019 [employer]. Follow Up Care 04/12/2022 19:25:17 With:ADRYAN MARIE Address: [address] [place] [address] [id number] (1) When:04/15/2022 20:55:24 Comments:Return to the emergency room if her headache gets worse, vertigo becomes persistent or any new symptoms [facility] Evaluation note 04-09-2022 Note Date & [...] She was prescribed Zofran with no improvement. [facility] Other Evaluation note 04-02-2022 Note Date & [...] 3 days. No swimming for a week [facility] Other Clinical Note 10-25-2021 Note Date & Type Note Facility 10-25-2021 Note OPERATIVE NOTE PROCEDURE: Diagnostic laparoscopy. PREOPERATIVE DIAGNOSIS: Pelvic pain, dyspareunia dysmenorrhea. POSTOPERATIVE DIAGNOSIS: Pelvic pain, dyspareunia dysmenorrhea. ANESTHESIA: General. SURGEON: Devan Tello D.O. SUPERINTENDENT [employer] STORAGE: JAE Worley URINE OUTPUT: Yellow and clear. [...] taken to Recovery Room in stable condition. [facility] Signed and Approved by: DR DEVAN TELLO . 11/01/2021 17:31:00 [facility] Evaluation + Plan note Note Date & Type Note Facility Evaluation + Plan note No data available for this section [facility] Evaluation note Note Date & Type Note Facility Evaluation note No Information [facility] Other Evaluation note Note Date & Type [...] Hospitalization History RSV as a baby [facility] Other Progress note Note Date & Type Note Facility Progress note No data available for this section [facility] Summary Purpose Family History No Family History Records FoundNo Family History Records FoundNo Family History Records Found Advance Directives No Advanced Directives Records FoundNo Advanced Directives Records FoundNo Advanced Directives Records Found Additional Source Comments REASON FOR VISIT (unrecogniz ed section and content) Reason Comments Routine Visit Care Team (unrecognized sect ion and content) 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 Relationship Specialty Start Date End Date Adryan Marie MD [address] [place] [address] PCP - General Family Medicine 9/22/23 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 Relationship Specialty Start Date End Date Adryan Marie MD [address] [place] [address] PCP - General Family Medicine 06/19/23 INFORMATION SOURCE (unrecogn ized section and content) DATE CREATED AUTHOR 04/26/2022 [facility] DATE CREATED AUTHOR AUTHOR'S ORGANIZ ATION 09/19/2022 Uzma Bourgeois [facility] pital DATE CREATED AUTHOR AUTHOR'S ORGANIZ ATION 12/28/2023 [facility] FOR RECORDS PERTAINING TO PATIENTS WHO [...] ON THE PRIMARY CLINICAL RECORDS. [facility]. provides no warranty or guarantee of the accuracy or completeness of information in this document.
--- NOTE | 2023-12-30 09:56 | US_ITS ---
[address] [address] Patient Name: JUANPABLO CHAPARRO MRN: [id number] date: 2000 Sex: F Assigned Patient Location: [facility] Current Patient Location: [facility] Accession/Order Number: [id number] Exam Date: 12/30/2023 10:05 Report Date: 12/30/2023 10:41 At the request of: DEVAN GEORGE Procedure: US OB BPP w non-stress EXAMINATION: US OB BPP w non-stress HISTORY: EXCESSIVE GROWTH AFFECTING O36.63X0 COMPARISON: Ultrasound OB biophysical 12/23/2023 TECHNIQUE: Ultrasound biophysical profile was performed in the radiology department. BREATHING MOVEMENTS: 2.0 GROSS BODY MOVEMENTS: 2.0 TONE: 2.0 QUALITATIVE AMNIOTIC FLUID VOLUME: 2.0 PRESENTATION: CEPHALIC HEART RATE: 135.0 bpm bpm. AMNIOTIC FLUID VOLUME: 19.6 cm GESTATIONAL AGE: 36 weeks 0 days CONCLUSION: Total biophysical profile score 8.0. Electronically authenticated by: WILBERT CASIANO Date: 12/30/2023 10:41
[2023-12-30 10:33] VITALS: BP 110/78
== END 2023-12-30 11:03 | disposition home or self-care (01) ==
LOC: US 07:39 → FBC 09:56
PROVIDERS: PCP Family Medicine; Visit Provider Obstetrics & Gynecology
DX: O36.63X0 Maternal care for excessive fetal growth, third trimester, not applicable or unspecified (principal); Z3A.36 36 weeks gestation of pregnancy
CPT/HCPCS: 76818

== ENCOUNTER 2024-01-02 07:53 | Outpatient (OUT) | payer OTHER, SELFPAY ==
--- OUTSIDE RECORDS SUMMARY | 2024-01-02 07:55 | XMS_ITS | CCD ---
Author Organization [facility] Care Team Providers Care Javascript Software Engineer Name Role Phone Deonna Back Unavailable DEFJAILENE, ADRYAN Primary Care Physician [phone] LESLEY, DR LUIS ANTONIO Jorge Consulting Unavailable [...] SUTTON, DR LUIS ANTONIO Jorge Admitting Unavailable LSELEY, DR LUIS ANTONIO Jorge Consulting Unavailable LESLEY, [...] Unavailable Defrance Adryan OBRIEN Primary Care Provider [phone] CYDNEY LEOS Attending Unavailable CYDNEY LEOS Attending Unavailable DEVAN TELLO Attending Unavailable CYDNEY LEOS Attending Unavailable DEVAN TELLO Attending Unavailable CYDNEY LEOS Attending Unavailable DEVAN TELLO Attending Unavailable Allergies Allergy Classification Reported Allergen(s) Allergy Type Date of Onset Reaction(s) Facility (3 sources) Sulfacetamide Drug Allergy rash Contemporary Analysis Other (1 source) Sulfonamides (Antibiotic); Translations: [sulfa drugs] Drug allergy Hyperpyrexia (finding) [facility] (1 source) Sulfonamides (Antibiotic) Drug allergy (disorder) 07-26-20 14 [facility] (3 sources) Sulfonamides (Antibiotic) Drug Intolerance [...] BY MOUTH EVERY MORNING 0 10/06/2023 Active [id number]-[id number]-Anderson-3 ( Gummies/DHA & FA) 0.4-32.5 MG chewable tablet (3 sources) Start: 06-19-2023 End: 06-18-2024 FV-Ypw-FV-Anderson-3 ( Gummies/DHA & FA) 0.4-32.5 MG chewable tablet Indications: Missed menses Chew 32.5 mg in the morning. 30 tablet 11 06/19/2023 06/18/2024 Active Completed/Discontinued Medications Medication Drug Class(es) Dates Sig (Normalized) Sig (Original) [id number] 200 actuat albuterol 0.09 mg/actuat metered dose [...] / neomycin 3.5 mg/ml / polymyxin b [id number] unt/ml otic suspension (3 sources) Aminoglycoside Antibacterial, Polymyxin-class Antibacterial, Corticosteroid Start: 04-02-2022 Neomycin-Polymyx in-HC [id number] 3 drops left ear Three times a [...] UA Negative Negative - 4(70) +++ mg/dL [facility] Blood, UA Negative Negative - 50 Cedric/mcL [facility] Clarity, UA Clear [facility] re Color, UA Yellow [facility] Glucose, UA Negative Negative - 1999(110) ++++ mg/dL [facility] Interpretation and review of laboratory results Normal [facility] Ketones, UA Negative Negative - 160(16) ++++ mg/dL [facility] Leukocytes, UA Negative Negative - 500+++ Alessandro/mcL [facility] Nitrite, UA Negative Negative - Positive [facility] pH, UA 6.0 5 - 9 [facility] e Protein, UA Negative Negative - 1999(20) ++++ mg/dL [facility] Spec Grav, UA 1.020 1 - 1.[address] [facility] Urobilinogen, UA 0.2 0.2 - 12 mg/dL [facility] ALL CBC WITH AUTO DIFFon BASOPHILS ABSOLUTE AUTO 0.0 [facility] Basophils/100 WBC (Bld) 0.3 % 0.2 - 2.0 % [facility] Eosinophils/100 WBC (Bld) 1.0 % 0.9 - 7.0 % [facility] Erythrocyte distribution width (RBC) [Ratio] 12.5 % 11.0 - 15.0 % [facility] Hematocrit (Bld) [Volume fraction] 35.1 % Low 36.0 - 48.0 % [facility] Hemoglobin (Bld) [Mass/Vol] 11.7 g/dL Low 12.0 - 16.0 g/dL [facility] IMMATURE GRANULOCYTES ABS AUTO 0.08 High [facility] Immature granulocytes/100 WBC (Bld) 0.6 % High 0.0 - 0.5 % [facility] Interpretation and review of laboratory results [facility] LY[facility] ABSOLUTE AUTO 1.6 [facility] Lymphocytes/100 WBC (Bld) 11.9 % Low 20.5 - 60.0 % [facility] MCH (RBC) [Entitic mass] 30.7 pg 26.7 - 34.0 pg [facility] MCHC (RBC) [Mass/Vol] 33.3 g/dL 29.9 - 35.2 g/dL [facility] MCV (RBC) [Entitic vol] 92.1 fL 81.0 - 99.0 fL [facility] MONOCYTES ABSOLUTE AUTO 0.8 [facility] Monocytes/100 WBC (Bld) 5.5 % 1.7 - 12.0 % [facility] NEUTROPHILS ABSOLUTE AUTO 11.1 High [facility] Neutrophils/100 WBC (Bld) 80.7 % High 43.0 - 75.0 % [facility] Platelet mean volume (Bld) [Entitic vol] 10.6 fL 9.5 - 13.5 fL [facility] are [facility] EO # 0.1 [facility] PLT 292 [facility] RBC 3.81 Low [facility] WBC 13.8 High [facility] CBC AUTO DIFFon 09-14-2022 BASO # 0.0 103/ul Normal 0.0-0.1 [facility] Comment on above: Performed By: #### B MP, TSH #### [facility] [address] [address] [address] Reema Mireles Basophils/100 WBC (Bld) 0.6 % Normal 0.2-2.0 [facility] Comment on above: Performed By: #### B MP, TSH #### [facility] [address] [address] [address] Reema Mireles EO # 0.0 103/ul Normal 0.0-0.7 [facility] Comment on above: Performed By: #### B MP, TSH #### [facility] [address] [address] [address] Reema Mireles Eosinophils/100 WBC (Bld) 0.6 % Critically low 0.9-7.0 [facility] Comment on above: Performed By: #### B MP, TSH #### [facility] [address] [place] [address] Dr. Reema Mireles Erythrocyte distribution width (RBC) [Ratio] 11.9 % Normal 11.0-15.0 [facility] Comment on above: Performed By: #### B GURPREET, TSH #### [facility] [address] [place] [address] Dr. Reema Mireles Hematocrit (Bld) [Volume fraction] 37.8 % Normal 36.0-48.0 [facility] Comment on above: Performed By: #### B GURPREET, TSH #### [facility] [address] [place] [address] Dr. Reema Mireles Hemoglobin (Bld) [Mass/Vol] 13.5 g/dL Normal 12.0-16.0 [facility] Comment on above: Performed By: #### B GURPREET, TSH #### [facility] [address] [place] [address] Dr. eRema Mireles IG # 0.01 10e3/ul Normal 0.00-0.03 [facility] Comment on above: Performed By: #### B GURPREET, TSH #### [facility] [address] [place] [address] Dr. Reema Mireles IG % 0.2 % Normal 0.0-0.5 [facility] Comment on above: Performed By: #### B GURPREET, TSH #### [facility] [address] [place] [address] Dr. Reema Mireles LYMPH # 1.6 103/ul Normal 1.2-3.8 [facility] Comment on above: Performed By: #### B GURPREET, TSH #### [facility] [address] [place] [address] Dr. Reema Mireles Lymphocytes/100 WBC (Bld) 25.5 % Normal 20.5-60.0 [facility] Comment on above: Performed By: #### B GURPREET, TSH #### [facility] [address] [place] [address] Dr. Reema Mireles MANUAL DIFF REQ NO Normal [facility] Comment on above: Performed By: #### B MP, TSH #### [facility] [address] [place] [address] Dr. Reema Mireles MCH (RBC) [Entitic mass] 30.9 pg Normal 26.7-34.0 [facility] Comment on above: Performed By: #### B MP, TSH #### [facility] [address] [place] [address] Dr. Reema Mireles MCHC (RBC) [Mass/Vol] 35.7 g/dL Critically high 29.9-35.2 [facility] Comment on above: Performed By: #### B MP, TSH #### [facility] [address] [place] [address] Dr. Reema Mireles MCV (RBC) [Entitic vol] 86.5 fL Normal 81.0-99.0 [facility] Comment on above: Performed By: #### B MP, TSH #### [facility] [address] [place] [address] Dr. Reema Mireles MONO # 0.5 103/ul Normal 0.3-0.8 [facility] Comment on above: Performed By: #### B MP, TSH #### [facility] [address] [place] [address] Dr. Reema Mireles Monocytes/100 WBC (Bld) 8.5 % Normal 1.7-12.0 [facility] Comment on above: Performed By: #### B MP, TSH #### [facility] [address] [place] [address] Dr. Reema Mireles NEUT # 4.1 103/ul Normal 1.4-6.5 [facility] Comment on above: Performed By: #### B MP, TSH #### [facility] [address] [place] [address] Dr. Reema Mireles Neutrophils/100 WBC (Bld) 64.6 % Normal 43.0-75.0 [facility] Comment on above: Performed By: #### B MP, TSH #### [facility] [address] [place] [address] Dr. Reema Mireles Platelet mean volume (Bld) [Entitic vol] 9.9 fL Normal 9.5-13.5 [facility] Comment on above: Performed By: #### B GURPREET, TSH #### [facility] [address] [place] [address] Dr. Reema Mireles PLT 403 103/ul Normal 150-450 [facility] Comment on above: Performed By: #### B GURPREET, TSH #### [facility] [address] [place] [address] Dr. Reema Mireles RBC 4.37 106/ul Normal 4.20-5.40 [facility] Comment on above: Performed By: #### B GURPREET, TSH #### [facility] [address] [place] [address] Dr. Reema Mireles WBC 6.3 103/ul Normal 4.0-11.0 [facility] Comment on above: Performed By: #### B GURPREET, TSH #### [facility] [address] [place] [address] Dr. Reema Mireles PROF 14(COMP METB)on 022 Albumin [Mass/Vol] 4.3 g/dL Normal 3.4-5.0 [facility] Comment on above: Performed By: #### B GURPREET, TSH #### [facility] [address] [place] [address] Dr. Reema Mireles Albumin/Globulin [Mass ratio] 1.2 {ratio} Normal [facility] Comment on above: Performed By: #### B GURPREET, TSH #### [facility] [address] [place] [address] Dr. Reema Mierles ALP [Catalytic activity/Vol] 79 U/L Normal 46-116 [facility] Comment on above: Performed By: #### B GURPREET, TSH #### [facility] [address] [place] [address] Dr. Reema Mireles ALT [Catalytic activity/Vol] 31 U/L Normal 14-59 [facility] Comment on above: Performed By: #### B GURPREET, TSH #### [facility] [address] [place] [address] Dr. Reema Mireles Anion gap [Moles/Vol] 12.1 mmol/L Normal [facility] Comment on above: Performed By: #### B GURPREET, TSH #### [facility] [address] [place] [address] Dr. Reema Mireles AST [Catalytic activity/Vol] 17 U/L Normal 15-37 [facility] Comment on above: Performed By: #### B GURPREET, TSH #### [facility] [address] [place] [address] Dr. Reema Mireles Bilirubin [Mass/Vol] 0.4 mg/dL Normal 0.2-1.0 [facility] Comment on above: Performed By: #### B GURPREET, TSH #### [facility] [address] [place] [address] Dr. Reema Mireles Calcium [Mass/Vol] 8.9 mg/dL Normal 8.5-10.1 [facility] Comment on above: Performed By: #### B GURPREET, TSH #### [facility] [address] [place] [address] Dr. Reema Mireles Chloride [Moles/Vol] 98 mmol/L Normal 98-107 [facility] Comment on above: Performed By: #### B GURPREET, TSH #### [facility] [address] [place] [address] Dr. Reema Mireles CO2 [Moles/Vol] 27.0 mmol/L Normal 21.0-32.0 [facility] Comment on above: Performed By: #### B GURPREET, TSH #### [facility] [address] [place] [address] Dr. Reema Mireles Creatinine [Mass/Vol] 0.65 mg/dL Normal 0.55-1.02 [facility] Comment on above: Performed By: #### B GURPREET, TSH #### [facility] [address] [place] [address] Dr. Reema Mireles EGFR-AF NEW ZEALANDER >60 Normal >=60 [facility] Comment on above: Performed By: #### B GURPREET, TSH #### [facility] [address] [place] [address] Dr. Reema Mireles EGFR-NON AF NEW ZEALANDER >60 Normal >=60 [facility] Comment on above: Performed By: #### B GURPREET, TSH #### [facility] [address] [place] [address] Dr. Reema Mireles Globulin (S) [Mass/Vol] 3.5 g/dL Normal [facility] Comment on above: Performed By: #### B GURPREET, TSH #### [facility] [address] [place] [address] Dr. Reema Mireles Glucose [Mass/Vol] 106 mg/dL Normal 74-106 [facility] Comment on above: Performed By: #### B GURPREET, TSH #### [facility] [address] [place] [address] Dr. Reema Mireles Potassium [Moles/Vol] 3.1 mmol/L Critically low 3.5-5.1 [facility] Comment on above: Performed By: #### B GURPREET, TSH #### [facility] [address] [place] [address] Dr. Reema Mireles Protein [Mass/Vol] 7.8 g/dL Normal 6.4-8.2 [facility] Comment on above: Performed By: #### B GURPREET, TSH #### [facility] [address] [place] [address] Dr. Reema Mireles Sodium [Moles/Vol] 134 mmol/L Critically low 136-145 [facility] Comment on above: Performed By: #### B GURPREET, TSH #### [facility] [address] [place] [address] Dr. Reema Mireles Urea nitrogen [Mass/Vol] 6.0 mg/dL Critically low 7.0-18.0 [facility] Comment on above: Performed By: #### B GURPREET, TSH #### [facility] [address] [place] [address] Dr. Reema Mireles Urea nitrogen/Creatinine [Mass ratio] 9.2 mg/mg Normal [facility] Comment on above: Performed By: #### B GURPREET, TSH #### [facility] [address] [place] [address] Dr. Reema Mireles ACETONE SERUMon 08-11-2022 ACETONE Negative Normal NEGATIVE [facility] Comment on above: Performed By: #### B GURPREET, TSH #### [facility] [address] [place] [address] Dr. Reema Mireles CBC AUTO DIFFon 08-11-2022 BASO # 0.1 103/ul Normal 0.0-0.1 [facility] Comment on above: Performed By: #### B GURPREET, TSH #### [facility] [address] [place] [address] Dr. Reema Mireles Basophils/100 WBC (Bld) 0.5 % Normal 0.2-2.0 [facility] Comment on above: Performed By: #### B GURPREET, TSH #### [facility] [address] [place] [address] Dr. Reema Mireles EO # 0.1 103/ul Normal 0.0-0.7 [facility] Comment on above: Performed By: #### B GURPREET, TSH #### [facility] [address] [place] [address] Dr. Reema Mireles Eosinophils/100 WBC (Bld) 0.7 % Critically low 0.9-7.0 [facility] Comment on above: Performed By: #### B GURPREET, TSH #### [facility] [address] [place] [address] Dr. Reema Mireles Erythrocyte distribution width (RBC) [Ratio] 11.7 % Normal 11.0-15.0 [facility] Comment on above: Performed By: #### B GURPREET, TSH #### [facility] [address] [place] [address] Dr. Reema Mireles Hematocrit (Bld) [Volume fraction] 37.6 % Normal 36.0-48.0 [facility] Comment on above: Performed By: #### B GURPREET, TSH #### [facility] [address] [place] [address] Dr. Reema Mireles Hemoglobin (Bld) [Mass/Vol] 13.1 g/dL Normal 12.0-16.0 [facility] Comment on above: Performed By: #### B GURPREET, TSH #### [facility] [address] [place] [address] Dr. Reema Mireles IG # 0.02 10e3/ul Normal 0.00-0.03 [facility] Comment on above: Performed By: #### B MP, TSH #### [facility] [address] [place] [address] Dr. Reema Mireles IG % 0.2 % Normal 0.0-0.5 [facility] Comment on above: Performed By: #### B MP, TSH #### [facility] [address] [place] [address] Dr. Reema Mireles LYMPH # 2.7 103/ul Normal 1.2-3.8 [facility] Comment on above: Performed By: #### B MP, TSH #### [facility] [address] [place] [address] Dr. Reema Mireles Lymphocytes/100 WBC (Bld) 28.5 % Normal 20.5-60.0 [facility] Comment on above: Performed By: #### B MP, TSH #### [facility] [address] [place] [address] Dr. Reema Mireles MANUAL DIFF REQ NO Normal [facility] Comment on above: Performed By: #### B MP, TSH #### [facility] [address] [place] [address] Dr. Reema Mireles MCH (RBC) [Entitic mass] 30.3 pg Normal 26.7-34.0 [facility] Comment on above: Performed By: #### B MP, TSH #### [facility] [address] [place] [address] Dr. Reema Mireles MCHC (RBC) [Mass/Vol] 34.8 g/dL Normal 29.9-35.2 [facility] Comment on above: Performed By: #### B MP, TSH #### [facility] [address] [place] [address] Dr. Reema Mireles MCV (RBC) [Entitic vol] 87.0 fL Normal 81.0-99.0 [facility] Comment on above: Performed By: #### B MP, TSH #### [facility] [address] [place] [address] Dr. Reema Mireles MONO # 0.8 103/ul Normal 0.3-0.8 [facility] Comment on above: Performed By: #### B MP, TSH #### [facility] [address] [place] [address] Dr. Reema Mireles Monocytes/100 WBC (Bld) 8.2 % Normal 1.7-12.0 [facility] Comment on above: Performed By: #### B MP, TSH #### [facility] [address] [place] [address] Dr. Reema Mireles NEUT # 5.9 103/ul Normal 1.4-6.5 [facility] Comment on above: Performed By: #### B MP, TSH #### [facility] [address] [place] [address] Dr. Reema Mireles Neutrophils/100 WBC (Bld) 61.9 % Normal 43.0-75.0 [facility] Comment on above: Performed By: #### B MP, TSH #### [facility] [address] [place] [address] Dr. Reema Mireles Platelet mean volume (Bld) [Entitic vol] 10.2 fL Normal 9.5-13.5 [facility] Comment on above: Performed By: #### B MP, TSH #### [facility] [address] [place] [address] Dr. Reema Mireles PLT 382 103/ul Normal 150-450 [facility] Comment on above: Performed By: #### B MP, TSH #### [facility] [address] [place] [address] Dr. Reema Mireles RBC 4.32 106/ul Normal 4.20-5.40 [facility] Comment on above: Performed By: #### B MP, TSH #### [facility] [address] [place] [address] Dr. Reema Mireles WBC 9.6 103/ul Normal 4.0-11.0 [facility] Comment on above: Performed By: #### B MP, TSH #### [facility] [address] [place] [address] Dr. Reema Mireles CRPon 08-11-2022 CRP [Mass/Vol] mg/L Normal <=1.0 [facility] Comment on above: Performed By: #### B MP, TSH #### [facility] [address] [place] [address] Dr. Reema Mireles ER URINE PROFILEon 2 Bilirubin Ql (U) Negative Normal NEGATIVE [facility] Comment on above: Performed By: #### B MP, TSH #### [facility] [address] [place] [address] Dr. Reema Mireles Clarity (U) CLEAR Normal CLEAR [facility] Comment on above: Performed By: #### B MP, TSH #### [facility] [address] [place] [address] Dr. Reema Mireles Color (U) LT. YELLOW Normal YELLOW [facility] Comment on above: Performed By: #### B MP, TSH #### [facility] [address] [place] [address] Dr. Reema ELIZALDE A micrscopic examination will be performed if indicated. Normal [facility] Comment on above: Performed By: #### B MP, TSH #### [facility] [address] [place] [address] Dr. Reema Mireles Glucose Ql (U) Negative Normal NEGATIVE [facility] Comment on above: Performed By: #### B MP, TSH #### [facility] [address] [place] [address] Dr. Reema Mireles Hemoglobin Ql (U) Negative Normal NEGATIVE [facility] Comment on above: Performed By: #### B MP, TSH #### [facility] [address] [place] [id number] Dr. Reema Mireles Ketones Ql (U) Negative Normal NEGATIVE [facility] Comment on above: Performed By: #### B MP, TSH #### [facility] [address] [place] [address] Dr. Reema Mireles LEUKOCYTES Negative Normal NEGATIVE [facility] Comment on above: Performed By: #### B MP, TSH #### [facility] [address] [place] [address] Dr. Reema Mireles Nitrite Ql (U) Negative Normal NEGATIVE [facility] Comment on above: Performed By: #### B MP, TSH #### [facility] [address] [place] [address] Dr. Reema Mireles pH (U) 5.5 [pH] Normal 5-9 [facility] Comment on above: Performed By: #### B MP, TSH #### [facility] [address] [place] [address] Dr. Reema Mireles SPEC GRAVITY <=1.005 Abnormal 1.005-<=1.025 [facility] Comment on above: Performed By: #### B GURPREET, TSH #### [facility] [address] [place] [address] Dr. Reema Mireles UA PROTEIN Negative Normal NEGATIVE/ TRACE [facility] Comment on above: Performed By: #### B GURPREET, TSH #### [facility] [address] [place] [address] Dr. Reema Mireles UR MICRO IND NOT INDICATED Normal [facility] Comment on above: Performed By: #### B GURPREET, TSH #### [facility] [address] [place] [address] Dr. Reema Mireles Urobilinogen Qn (U) 0.2 {Renny'U}/dL Normal 0.2 - 1. 0 [facility] Comment on above: Performed By: #### B GURPREET, TSH #### [facility] [address] [place] [address] Dr. Reema Mireles LIPASEon 08-11-2022 Lipase [Catalytic activity/Vol] 71.0 U/L Critically low 73.0-393.0 [facility] Comment on above: Performed By: #### B MP, TSH #### [facility] [address] [place] [address] Dr. Reema Mireles URon 08-11-2022 , QUAL Negative Normal NEGATIVE [facility] Comment on above: Performed By: #### C VDTBH #### [facility] [address] [address] [address] Reema Mireles PROF 14(COMP METB)on 08-11- 022 Albumin [Mass/Vol] 4.3 g/dL Normal 3.4-5.0 [facility] Comment on above: Performed By: #### B MP, TSH #### [facility] [address] [place] [address] Dr. Reema Mireles Albumin/Globulin [Mass ratio] 1.2 {ratio} Normal [facility] Comment on above: Performed By: #### B MP, TSH #### [facility] [address] [place] [address] Dr. Reema Mireles ALP [Catalytic activity/Vol] 70 U/L Normal 46-116 [facility] Comment on above: Performed By: #### B MP, TSH #### [facility] [address] [place] [address] Dr. Reema Mireles ALT [Catalytic activity/Vol] 16 U/L Normal 14-59 [facility] Comment on above: Performed By: #### B MP, TSH #### [facility] [address] [place] [address] Dr. Reema Mireles Anion gap [Moles/Vol] 10.5 mmol/L Normal [facility] Comment on above: Performed By: #### B MP, TSH #### [facility] [address] [place] [address] Dr. Reema Mireles AST [Catalytic activity/Vol] 8 U/L Critically low 15-37 [facility] Comment on above: Performed By: #### B MP, TSH #### [facility] [address] [place] [address] Dr. Reema Mireles Bilirubin [Mass/Vol] 0.3 mg/dL Normal 0.2-1.0 [facility] Comment on above: Performed By: #### B MP, TSH #### [facility] [address] [place] [address] Dr. Reema Mireles Calcium [Mass/Vol] 9.0 mg/dL Normal 8.5-10.1 [facility] Comment on above: Performed By: #### B MP, TSH #### [facility] [address] [address] [address] Reema Mireles Chloride [Moles/Vol] 104 mmol/L Normal 98-107 [facility] Comment on above: Performed By: #### B MP, TSH #### [facility] [address] [address] [address] Reema Mireles CO2 [Moles/Vol] 26.5 mmol/L Normal 21.0-32.[address] [facility] Comment on above: Performed By: #### B MP, TSH #### [facility] [address] [place] [address] Dr. Reema Mireles Creatinine [Mass/Vol] 0.79 mg/dL Normal 0.55-1.02 [facility] Comment on above: Performed By: #### B MP, TSH #### [facility] [address] [place] [address] Dr. Reema Mireles EGFR-AF NEW ZEALANDER >60 Normal >=60 [facility] Comment on above: Performed By: #### B MP, TSH #### [facility] [address] [place] [address] Dr. Reema Mireles EGFR-NON AF NEW ZEALANDER >60 Normal >=60 [facility] Comment on above: Performed By: #### B MP, TSH #### [facility] [address] [place] [address] Dr. Reema Mireles Globulin (S) [Mass/Vol] 3.5 g/dL Normal [facility] Comment on above: Performed By: #### B MP, TSH #### [facility] [address] [place] [address] Dr. Reema Mireles Glucose [Mass/Vol] 106 mg/dL Normal 74-106 [facility] Comment on above: Performed By: #### B MP, TSH #### [facility] [address] [place] [address] Dr. Reema Mireles Potassium [Moles/Vol] 3.0 mmol/L Critically low 3.5-5.1 [facility] Comment on above: Performed By: #### B MP, TSH #### [facility] [address] [place] [address] Dr. Reema Mireles Protein [Mass/Vol] 7.8 g/dL Normal 6.4-8.2 [facility] Comment on above: Performed By: #### B MP, TSH #### [facility] [address] [place] [address] Dr. Reema Mireles Sodium [Moles/Vol] 138 mmol/L Normal 136-145 [facility] Comment on above: Performed By: #### B MP, TSH #### [facility] [address] [place] [address] Dr. Reema Mireles Urea nitrogen [Mass/Vol] 8.0 mg/dL Normal 7.0-18.0 [facility] Comment on above: Performed By: #### B MP, TSH #### [facility] [address] [place] [address] Dr. Reema Mireles Urea nitrogen/Creatinine [Mass ratio] 10.1 mg/mg Normal [facility] Comment on above: Performed By: #### B MP, TSH #### [facility] [address] [place] [address] Dr. Reema Mireles PROTIMEon 08-11-2022 INR Coag (PPP) [Relative time] 1.00 {INR} Normal [facility] Comment on above: Performed By: #### P T, PTT #### [facility] [address] [place] [address] Dr. Reema Mireles INR GUIDELINES SEE BELOW Normal [facility] Comment on above: Result Comment: FELICIANO RED INR: 2.0 - 3.0 CONDITIONS NOT LISTED BELOW 2.5 - 3.5 FOR PROSTHETIC HEART VALVE REPLACEMENT 2.5 - 3.5 RECURRENT THROMBOSIS Performed By: #### P T, PTT #### [facility] [address] [place] [address] Dr. Reema Mireles PT Coag (PPP) [Time] 10.8 s Normal 9.0-11.6 [facility] Comment on above: Performed By: #### P T, PTT #### [facility] [address] [place] [address] Dr. Reema Mireles PTTon 08-11-2022 aPTT Coag (Bld) [Time] 30.8 s Normal 22.3-36.2 [facility] Comment on above: Performed By: #### P T, PTT #### [facility] [address] [place] [address] Dr. Reema Mireles [facility] SED RATE 10 mm/hr Normal <=20 [facility] Comment on above: Performed By: #### B MP, TSH #### [facility] [address] [place] [address] Dr. Reema Mireles TSHon 08-11-2022 TSH 3.313 uIU/mL Normal 0.358-3.740 [facility] Comment on above: Performed By: #### B MP, TSH #### [facility] [address] [place] [address] Dr. Reema Mireles Discharge Instructionson Discharge Instructions [id number] #1.00CD:127 Normal [facility] Comment on above: Other Comment: wrong patient STOOL CULTUREon 04-20-2022 Campylobacter Culture Final report Normal [facility] Comment on above: Performed By: #### B MP, TSH #### [facility] [address] [place] [address] Dr. Reema Mireles E coli Shiga Toxin EIA Negative Normal Negative [facility] Comment on above: Performed By: #### B MP, TSH #### [facility] [address] [place] [address] Dr. Reema Mireles Result 1 Comment Normal [facility] Comment on above: Result Comment: No S almonella or Shigella recovered. Performed By: #### B MP, TSH #### [facility] [address] [place] [address] Dr. Reema Mireles Result Comment: No C ampylobacter species isolated. Salmonella/Shigella Screen Final report Normal [facility] Comment on above: Performed By: #### B MP, TSH #### [facility] [address] [place] [address] Dr. Reema Mireles Coding Summary.on 04-14-2022 Coding Summary. CD:[id number] Gh0bWw+PGhlYWQ+PE1FV JJuP67rtRGlaR9QH5cYE Y7SOGVOUZFJUK7CZW2bj RC3QRnjT6ZsrkHc MqpyuLAjHS79BRz3HDX1 zDfwOKrqaU3wlPHzJ7l2 VgAhEW15xR89ASbnRRCj RcE6UgMpsutmpDFn H0oxGnIyqJHqGpj+PHRh YmxlIHdpZHRoPScxMDAl UqRltEeyAP0iIa1kUMSl LWNvbGxhcHNlOiBj n0esAWEeIHtfOR7dnKvy G9MalTT8OXCrr2j6Ms08 dHI+ERKhGOU0jJdaLHer i661TlQen6roMAW3 eJQlETnqPOP7C58ko8Y7 NCJgQIYnAZX1cVV5zE6y bHyyaszpU1FwrINhPkE1 JGI6gIJiyM3wuKkt ieqioU6tFjn+E82CAX4Z KKCXZA3DXnu3A6WvHpwu dHI+ZE58DPWqLU88bQTb pHCuw0umdSj9CxVu JRBaBRN9hHrbDXqkm4Ov IJSkO96grMLib8P2ILUt qEufiLKwNwUgqVL5wQ2h TXqzxqmhu0jnohjz Qpgyk6glcq83xF55J22n RGdyXQZrNIS3NLWrBVJq nNykxg7mxM9hFw1+IDxj q0rjd7fcfJo3GmNc ODSgruWdmPvmRIU5v4Rs Qn91T6PjzLidg7RyVwy7 ge47eGQyj1A3dWL4AYbb OQVcsY2tTZfiHkQ5 JZRtDdPvaU73tDBaSFpc Uz2bxWiwwOdqSP8zABOd qqmjPJCesX9yPFCcnHPr eOsdPO6sAYYokfcl w697JlEzBZA1IWXzqNSd Y7YyhA5cJnHxRFKyBXJs L1ArfCQuPBkxL867NCxo FsD8RDJxmpHiG0Yn LYMsrBmiKtL3f0K0Sb7I c8InldncMQD1WDbwZLL6 FtH9MzEmRzT9K4MwIzo3 EBHzpOyyHL6vR7Jc ONDfpwsnybfmgCE1MJGl WTYyvP46zDNbJKtnZj6z u2P7v896LWAiMZXddA73 Wr6yrExkNFEnvVIX wX1xmrgbt9bamwvkSmLt YXQsOBs5LAp7VQWxtRgb DeGoHRM6YtH1PYH6wNTx wO2jxQkqezmjzW8s Oyc+G20pkV1eFAA9ZWW3 sdwmSNGezeYdAB18EO82 H8RaTeaymDDupBD+PGRp vmLomAciHA7kYnDf q4sdr5XzOFjzP5YrVQFf CVytRav4DROlTMM2xQM3 fE5kEXKkDZziy6Z9aVQ2 I8OrkaAzdf8kj9cq VREcZUigC96xmMKwo2A3 ZKDdaLJ9EHOgwWlsFxGh vW36Jzh+FGGiwLnau5Iq Fhzlv3oke7zloGn7 IjMwJSIgdmFsaWduPSJ0 o2RmVu70X42jVQubZUUz NUCqPTXyKGSiyNvzsj1e vS7yEp4+PGNvbCB3 cZC3mJ7lQODkPpN7SKhq I825KiPvwISkUrqbu2fz d4efyUi2MwTmKXJbknKx gFnpJMH1u9VrYi53 C11pLBqwFZQlLFOkYIHb PFOpaMqrig7kiF1zQp1+ ZO3nj8kpru64eQ09fOT+ RWDpLLX4mWwkSUsp SIKtqU8nIFlxLuP5HXId FlKidW58iRSoHNqkCh0e yKxulDrfKI3tJQDaazcl s312AoPdq5shZVFy nPXjEVxlXBV7H96ye5K7 NLZdTKQuEZK2fEL9kC7f bGlnbjogbGVmdDsgdmVy vQdaXTqjHDwvN234 IHRvcDsnPlBhdGllbnQg QgFjTHj6A3UqXgl9GPSj bHfaDH6mbNVkULpcDf1u kZjjiZrqGM2eIITs jmvgt855HyCnl2wpMTDi sKCpXJvrKBY6H50rh4O7 GWVdVQZnQOC5fJM4sT6e bGlnbjogbGVmdDsg svKcpRutUKowXLrsI843 IHRvcDsnPkJpcnRoIERh cVZ9DJ54DH34aZGya6E5 qAV6L0XkQSDbeekd gizbzEZ5GTKaWZStcZ80 Lz6wfPgbPg0sZRTzPUZ9 HBMmnFXlL5QwxB9vRwJy SHKlRJXnN1MoeECv IXizD069ZGneVoP1BQCe rlLfL0VzDEGvvZbdOlK5 i5V3Ct1QD6Z8HV37HJ43 zPTul7A2yVN2Q0Ow UCZeedwrswidyHR8TIDt LDOqyN09Rc2hnEcfYs3c PSFjVIQ0LIZtfPRiJ6Ht sJ1fPrQtJSAkBDUd Y9AxsXRvBOnzM994QSva LbJ6KYQaqjYaD0LtBBMo qZkoSjV9a0E7Tz3PFAp4 TM92TB04dWSfk1K0 oGK0S8IuQQXpogvgxvuj fBX3VLXpBFEuaS21Id7d jOzdHk2jHAOmEDR7ZTAn kDDoW5LbnO3fRmUd UNMwUJJmF6FfiUAaWIwi Y340QDsvRuU8QJJwvyEa N4IjKBFpuUsuRpA6x4K4 No8ZMJZrQG93SIP9 cTX7AX69QH96I6ArFyzf dGFibGU+PHRhYmxlIHdp ZHRoPScxMDAlJyBzdHls GZ7iYo5ePOXpBANi sZiioOTcJmDyx8atQWDb JKcfBX9irNfoW7IxkSR9 QGIsi5c0Hi78M30qO4Cb dXA+BWQgiAP6oGS0 tH0uQmNmHwY8UFhkO142 YmZvkGQyQjipb1zgj0ok sDs0SvN0MURwyzCjbOvr KJC5o9OvZn77U74v IHdpZHRoPSIxNSUiIHZh tCylis3lpS9sSq7+PGNv yCD5rVF7gM0hApJfDwX3 OPuuR808LpAklUJb Rbgvq3jyt2hejYp4YlLr ITXfyeXjkHdnKRS5f5Vo Bl85A3IjjEzen6PsEcn3 av40uSUpw9N4hRN8 B4XtINQgepqugCOfzBjs HO8rSAWnztcqKJBbhU0n USTaC2a8RlRyYvW1YPdq U2MhsuC8ZLLlyYGo GEpuTVY1S54sv6Q8BGKc UEOgNNW2rKA7uT4uzSqh bjogbGVmdDsgdmVydGlj TUocRKgzJ524HOEy gDsyYNZagP6kOWOohZVh zJwtHI0jLWIjyvetBtnZ HZJHQ53OX1eZLBSKKAMS FSM3Y3BeTxt0XFPv rFjlQT1spYYvCMoaKk0z xGcjdIexUB1oYDWcybvi FCYffJ6rKXNrgXTrfIpi ST5cARAdppbqv073 UuEgTEL5EEAmhUBeO0Fc uZ3cCwUqLUTiACNiF9Va sYGwVNjlF881SQroNnL1 DFKczwZhI0YuWNQx hUzdTrI0s9Z1Qb7hAg7j FT8oEBVkEU12GU34mSAg a9F1bKK4F3YqZYIcnduk dbzohUF6XJAsZOYq yT79vBTsVWpcNv1cy8F1 o992SLMhIKYikZ15Xo1m bUgsHTLclPVLoE2ctuaw v3ydapcbHrJtMOLh FZs3CNv6BIYrmDrdQfLs HZR5YtF5AUS9pEYlnE1i rNydaiwjxQ1nQat+MjAg RYLbcwS8A8LtYhm0 SJRbvHglWR2hdBAeXRzb Ml2msRvwgDvaEF7rVQJp wdlbEYKyzT0jDIBamJAc yHytDK8kSGLysbxh l337OlQcNQL3QEUpqQZd A7HrmD2pQaTlFVRkNYJc N6CjpHBrTFfbM466AGcf KrC4AMRlpyNoW7Sv EWZulAaqRtG3d1U8Xf3M SQ4muBJ3M4ErNbb2JKUd fKprUZ6nzISzROgkCw8j rBzozShhSS1yYZJv qxmsJBVkrH7nNIRrpXDp qBpbKY3dNFCdbnarw858 CvCcBOP9PUXnnFKwF4Gg wX3dXpTuJMJjRUMi L3NydTTwAKpfQ259DOzh HgN7CMOaxbRnS5NgLWGx gQgxTcH1t5H7Ow7LuFNg W5AcD8t7J0KwJqjb dHI+QZ05LGUwWX32aZUl aHZaf6jrpCs6CqOyKANd KPA4gJwsOSyup5OkMTMd D90ftVOtw7W2ZYUl dJqpyEXjYbCdjQR4jH6u JPorhhjje3mrmogrQbyk d2yabx05hP90G18cBYtf ZHRoPSIzMCUiIHZh xLabyb8xoD5lDk0+PGNv gOD5rCY3oQ5tLlObBgY4 WJtqX333WxSdxORjWape n3mrq7gzqMw1UfKr SVWikkWnxRvnUAA9l0Da Oo72G34nKNyvFAXzAGKn JWNkQUQguYfvsi2deJ3k Ii8+GJ2uy7dnvp44 mY52bTI+STYxUDN8zBry SIooYVPiqM6sBJnoElQ7 FIJjLaKegB94aXUrBSst Cr9qeEvwcEgdEW1g OQJepbiwj649ZwVtt8se KCMquLCcZHaaEEU2S36k s4A8FMRzYMUdQAZ1gQO8 mD3bwUuvmakeiORk dDsgdmVydGljYWwtYWxp B448WSByuMyaFcOljLLf B4ihjyBMOY5aCrmscMR+ WIYnBEB5rMgyYBxf NXKlhC3qERClF8m3EsHy PjO0DNulM5HgrzI1IDQv uNZqPTJvxFUVcW0xnzma h0mbrxilHpUqOKIf GYu6AWe2WJCttBucGdNm VOB7QdV3KNT0wWZjuP9w gAkniowzdQ8eOwm+RklO OjwvdGQ+PHRkIHN0 tQgxIOnhHFKqbI6tUFJl G6m5MnDpAwM3IWvcM7Zh qfL5LBTwgUCiYKIjrZZD nM4aueapw9ulvrwi RuKgBHHzMWd1HTh8ZGTl jIbaEiWmHFK3ZiD1KTM0 lJLgkJ9ahFtueoamrA6a Oyc+TVJOOjwvdGQ+ XTZgPNN1fCxsMArxDZNq xZ3bSMMbS6x4XvNpPzB3 QAyrZ9PcucC3YHKsrYTv SRMnhORCuS9bbhbg j1jvdhkmQiDxJLJqUSh1 INs6OUNxuAxdQxAcAON2 XkD5GAT0hCAatN8hhMyx phchkL0dWfs+UGF5 FCP1DM52EQ25Z0BeKcjq dGFibGU+PHRhYmxlIHdp ZHRoPScxMDAlJyBzdHls VE7dBn9zGTMcJWRr bGxh (more content not included)... Normal [facility] CBC AUTO DIFFon 04-13-2022 BASO # 0.1 103/ul Normal 0.0-0.1 [facility] Comment on above: Performed By: #### C VDTBH #### [facility] [address] [place] [address] Dr. Reema Mireles Basophils/100 WBC (Bld) 0.6 % Normal 0.2-2.0 [facility] Comment on above: Performed By: #### C VDTBH #### [facility] [address] [place] [address] Dr. Reema Mireles EO # 0.0 103/ul Normal 0.0-0.7 [facility] Comment on above: Performed By: #### C VDTBH #### [facility] [address] [place] [address] Dr. Reema Mireles Eosinophils/100 WBC (Bld) 0.2 % Critically low 0.9-7.0 [facility] Comment on above: Performed By: #### C VDTBH #### [facility] [address] [place] [address] Dr. Reema Mireles Erythrocyte distribution width (RBC) [Ratio] 11.4 % Normal 11.0-15.0 [facility] Comment on above: Performed By: #### C VDTBH #### [facility] [address] [place] [address] Dr. Reema Mireles Hematocrit (Bld) [Volume fraction] 38.3 % Normal 36.0-48.0 [facility] Comment on above: Performed By: #### C VDTBH #### [facility] [address] [place] [address] Dr. Reema Mireles Hemoglobin (Bld) [Mass/Vol] 13.4 g/dL Normal 12.0-16.0 [facility] Comment on above: Performed By: #### C VDTBH #### [facility] [address] [place] [address] Dr. Reema Mireles IG # 0.01 10e3/ul Normal 0.00-0.03 [facility] Comment on above: Performed By: #### C VDTBH #### [facility] [address] [place] [address] Dr. Reema Mireles IG % 0.1 % Normal 0.0-0.5 [facility] Comment on above: Performed By: #### C VDTBH #### [facility] [address] [place] [address] Dr. Reema Mireles LYMPH # 1.8 103/ul Normal 1.2-3.8 [facility] Comment on above: Performed By: #### C VDTBH #### [facility] [address] [place] [address] Dr. Reema Mireles Lymphocytes/100 WBC (Bld) 22.2 % Normal 20.5-60.0 [facility] Comment on above: Performed By: #### C VDTBH #### [facility] [address] [place] [address] Dr. Reema Mireles MANUAL DIFF REQ NO Normal [facility] Comment on above: Performed By: #### C VDTBH #### [facility] [address] [place] [address] Dr. Reema Mireles MCH (RBC) [Entitic mass] 30.6 pg Normal 26.7-34.0 [facility] Comment on above: Performed By: #### C VDTBH #### [facility] [address] [place] [address] Dr. Reema Mireles MCHC (RBC) [Mass/Vol] 35.0 g/dL Normal 29.9-35.2 [facility] Comment on above: Performed By: #### C VDTBH #### [facility] [address] [place] [address] Dr. Reema Mireles MCV (RBC) [Entitic vol] 87.4 fL Normal 81.0-99.0 [facility] Comment on above: Performed By: #### C VDTB #### [facility] [address] [place] [address] Dr. Reema Mireles MONO # 0.7 103/ul Normal 0.3-0.8 [facility] Comment on above: Performed By: #### C VDTBH #### [facility] [address] [place] [address] Dr. Reema Mireles Monocytes/100 WBC (Bld) 8.2 % Normal 1.7-12.0 [facility] Comment on above: Performed By: #### C VDTBH #### [facility] [address] [place] [address] Dr. Reema Mireles NEUT # 5.5 103/ul Normal 1.4-6.5 [facility] Comment on above: Performed By: #### C VDTB #### [facility] [address] [place] [address] Dr. Reema Mireles Neutrophils/100 WBC (Bld) 68.7 % Normal 43.0-75.0 [facility] Comment on above: Performed By: #### C VDTBH #### [facility] [address] [place] [address] Dr. Reema Mireles Platelet mean volume (Bld) [Entitic vol] 10.1 fL Normal 9.5-13.5 [facility] Comment on above: Performed By: #### C VDTBH #### [facility] [address] [place] [address] Dr. Reema Mireles PLT 404 103/ul Normal 150-450 [facility] Comment on above: Performed By: #### C VDTBH #### [facility] [address] [place] [address] Dr. Reema Mireles RBC 4.38 106/ul Normal 4.20-5.40 [facility] Comment on above: Performed By: #### C VDTBH #### [facility] [address] [place] [address] Dr. Reema Mireles WBC 8.0 103/ul Normal 4.0-11.0 [facility] Comment on above: Performed By: #### C [facility] #### [facility] [address] HEAD WO CONon [...] AURELIA CARLOS Date: 2022-04-13 16:29 Normal [facility] Discharge Instructionson Discharge Instructions [id number] Normal [facility] ED Note-Physicianon 04-13-20 22 ED Note-Physician Basic Information Time Seen: Lata Hardy M.D. 04/12/2022 19:56 Chief Complaint Pt. presents to the ed with c/o headache and vertigo since thursday. Pt. was seen at [place] and started on prednisone. pt. stopped taking [...] The patient states she was seen at [facility] discharged home. She went to urgent care [...] neurological deficit. She has been seen at [facility] and started on prednisone. Possible her symptoms [...] ADRYAN MARIE In 3 days 04/15/2022 EDT [facility] [place] [address]- Business (1) Additional Instructions: Return to the [...] Diagnostic Results No qualifying data available. Normal [facility] Comment on above: Result Comment: Elec tronically Signed By: Antony Villa, Lata Baxter\.br\Date and Time Signed: 04/13/22 04:56 EDT ER URINE PROFILEon 2 Bilirubin Ql (U) Negative Normal NEGATIVE [facility] Comment on above: Performed By: #### P REGU, ERUR #### [facility] [address] [place] [address] Dr. Reema Mireles Clarity (U) CLEAR Normal CLEAR [facility] Comment on above: Performed By: #### P REGU, ERUR #### [facility] [address] [place] [address] Dr. Reema Mireles Color (U) LT. YELLOW Normal YELLOW [facility] Comment on above: Performed By: #### P REGU, ERUR #### [facility] [address] [address] [address] Reema ELIZALDE A micrscopic examination will be performed if indicated. Normal [facility] Rehabilitation Comment on above: Performed By: #### P REGU, ERUR #### [facility] [address] [place] [address] Dr. Reema Mireles Glucose Ql (U) Negative Normal NEGATIVE [facility] Comment on above: Performed By: #### P REGU, ERUR #### [facility] [address] [place] [address] Dr. Reema Mireles Hemoglobin Ql (U) Negative Normal NEGATIVE [facility] Comment on above: Performed By: #### P REGU, ERUR #### [facility] [address] [place] [address] Dr. Reema Mireles Ketones Ql (U) Negative Normal NEGATIVE [facility] Comment on above: Performed By: #### P REGU, ERUR #### [facility] [address] [place] [address] Dr. Reema Mireles LEUKOCYTES Negative Normal NEGATIVE [facility] Comment on above: Performed By: #### P REGU, ERUR #### [facility] [address] [place] [address] Dr. Reema Mireles Nitrite Ql (U) Negative Normal NEGATIVE [facility] Comment on above: Performed By: #### P REGU, ERUR #### [facility] [address] [place] [address] Dr. Reema Mireles pH (U) 6.5 [pH] Normal 5-9 [facility] Comment on above: Performed By: #### P REGU, ERUR #### [facility] [address] [place] [address] Dr. Reema Mireles SPEC GRAVITY 1.005 Normal 1.005-<=1.025 [facility] Comment on above: Performed By: #### P REGU, ERUR #### [facility] [address] [place] [address] Dr. Reema Mireles UA PROTEIN Negative Normal NEGATIVE/ TRACE [facility] Comment on above: Performed By: #### P REGU, ERUR #### [facility] [address] [place] [address] Dr. Reema Mireles UR MICRO IND NOT INDICATED Normal [facility] Comment on above: Performed By: #### P REGU, ERUR #### [facility] [address] [place] [address] Dr. Reema Mireles Urobilinogen Qn (U) 0.2 {Renny'U}/dL Normal 0.2 - 1. 0 [facility] Comment on above: Performed By: #### P REGU, ERUR #### [facility] [address] [address] [address] Reema Mireles URon 04-13-2022 , QUAL Negative Normal NEGATIVE [facility] Comment on above: Performed By: #### P REGU, ERUR #### [facility] [address] [address] [address] Reema Mireles PROF CHEM 8 (BAS METB)on Anion gap [Moles/Vol] 14.0 mmol/L Normal [facility] Comment on above: Performed By: #### B MP, TSH #### [facility] [address] [address] [address] Reema Mireles Calcium [Mass/Vol] 9.2 mg/dL Normal 8.5-10.1 [facility] Comment on above: Performed By: #### B MP, TSH #### [facility] [address] [address] [address] Reema Mireles Chloride [Moles/Vol] 102 mmol/L Normal 98-107 [facility] Comment on above: Performed By: #### B MP, TSH #### [facility] [address] [address] [address] Reema Mireles CO2 [Moles/Vol] 26.3 mmol/L Normal 21.0-32.[address] [facility] Comment on above: Performed By: #### B MP, TSH #### [facility] [address] [address] [address] Reema Mireles Creatinine [Mass/Vol] 0.65 mg/dL Normal 0.55-1.02 [facility] Comment on above: Performed By: #### B MP, TSH #### [facility] [address] [address] [address] Reema Mireles EGFR-AF NEW ZEALANDER >60 Normal >=60 [facility] Comment on above: Performed By: #### B MP, TSH #### [facility] [address] [address] [address] Reema Mireles EGFR-NON AF NEW ZEALANDER >60 Normal >=60 [facility] Comment on above: Performed By: #### B MP, TSH #### [facility] [address] [address] [address] Reema Mireles Glucose [Mass/Vol] 92 mg/dL Normal 74-106 [facility] Comment on above: Performed By: #### B MP, TSH #### [facility] [address] [address] [address] Reema Mireles Potassium [Moles/Vol] 3.3 mmol/L Critically low 3.5-5.1 [facility] Comment on above: Performed By: #### B MP, TSH #### [facility] [address] [address] [address] Reema Mireles Sodium [Moles/Vol] 139 mmol/L Normal 136-145 [facility] Comment on above: Performed By: #### B MP, TSH #### [facility] [address] [address] [address] Reema Mireles Urea nitrogen [Mass/Vol] 8.0 mg/dL Normal 7.0-18.0 [facility] Comment on above: Performed By: #### B MP, TSH #### [facility] [address] [address] [address] Reema Mireles Urea nitrogen/Creatinine [Mass ratio] 12.3 mg/mg Normal [facility] Comment on above: Performed By: #### B MP, TSH #### [facility] [address] [place] [address] Dr. Reema Mireles TSHon 04-13-2022 TSH 1.293 uIU/mL Normal 0.358-3.740 [facility] Comment on above: Performed By: #### B MP, TSH #### [facility] [address] [place] [address] Dr. Reema Mireles Consent for Treatmenton 03-28 Consent for Treatment [id number] Normal [facility] ED Clinical Summaryon 2021 ED Clinical Summary [place] [id number] ED Clinical Summary Person Information Name: JUANPABLO CHAPARRO Florinda/[facility] Age: 21 Years : 2000 Sex: Female Language: Wolof PCP: ADRYAN MARIE MD Marital Status: Single Phone: [phone] Visit Id: Visit Reason: Vertigo - recurrent; [...] 04/12/2022 21:07:38 04/12/2022 21:07:38 04/12/2022 21:07:38 ADDRESS: [address] [place] [id number] PHYS DOC NOTES: MEDICAL INFORMATION: Prescriptions Given: PATIENT EDUCATION INFORMATION: Instructions: General Headache Without Cause; Vertigo Follow up: With: Address: When: ADRYAN AMINJAILENE [address] [place], [place] [id number] Business (1) In 3 days 04/15/2022 Comments: Return to the emergency room if her headache gets worse, vertigo becomes persistent or any new symptoms DIAGNOSIS: 1:Vertigo; 2:Headache Normal [facility] ED Patient Education Noteon 04-12-2022 ED [...] you feel dizzy. General instructions ? Take bsjc-bby-oxvczal and prescription medicines only as told by [...] Reviewed: 08/08/2019 Elsevier Patient Education ? 2020 [employer] Neurology General Headache Without Cause A [...] with your condition: Managing pain ? Take ftan-skk-gpimeih and prescription medicines only as told by [...] of beer (more content not included)... Normal [facility] ED Patient Summaryon 022 ED Patient Summary [place] [id number] Patient Discharge Instructions Person Information Name: JUANPABLO CHAPARRO Age: 21 Years Arrival Date: 04/12/2022 19:22:40 Discharge Diagnosis: 1:Vertigo; 2:Headache Primary Care Physician: ADRYAN MARIE MD Provider Information Primary Provider: Lata Haryd M.D. [employer] Maintainer:None The exam and treatment you received in the Emergency Department were for an urgent problem and are not intended as complete care. It is important that you follow up with a doctor, nurse practitioner, or physician?s anatomic pathology assistant for ongoing care. If your symptoms [...] Instructions: With: Address: When: ADRYAN MARIE [address] [place], [place] [id number] Attensity (1AllergEase In 3 days 04/15/2022 Comments: Return to [...] opioids can be used to help relieve ocumaqat-bw-leqvhd pain and are often prescribed following a [...] addiction, tel (more content not included)... Normal [facility] CBC AUTO DIFFon 04-09-2022 BASO # 0.1 103/ul Normal 0.0-0.1 [facility] Comment on above: Performed By: #### B MP, TSH #### [facility] [address] [address] [address] Reema Mireles Basophils/100 WBC (Bld) 0.5 % Normal 0.2-2.0 [facility] Comment on above: Performed By: #### B MP, TSH #### [facility] [address] [place] [address] Dr. Reema Mireles EO # 0.1 103/ul Normal 0.0-0.7 [facility] Comment on above: Performed By: #### B MP, TSH #### [facility] [address] [place] [address] Dr. Reema Mireles Eosinophils/100 WBC (Bld) 1.0 % Normal 0.9-7.0 [facility] Comment on above: Performed By: #### B MP, TSH #### [facility] [address] [place] [address] Dr. Reema Mireles Erythrocyte distribution width (RBC) [Ratio] 11.7 % Normal 11.0-15.0 [facility] Comment on above: Performed By: #### B GURPREET, TSH #### [facility] [address] [place] [address] Dr. Reema Mireles Hematocrit (Bld) [Volume fraction] 37.2 % Normal 36.0-48.0 [facility] Comment on above: Performed By: #### B GURPREET, TSH #### [facility] [address] [place] [address] Dr. Reema Mireles Hemoglobin (Bld) [Mass/Vol] 12.8 g/dL Normal 12.0-16.0 [facility] Comment on above: Performed By: #### B GURPREET, TSH #### [facility] [address] [place] [address] Dr. Reema Mireles IG # 0.02 10e3/ul Normal 0.00-0.03 [facility] Comment on above: Performed By: #### B MP, TSH #### [facility] [address] [place] [address] Dr. Reema Mireles IG % 0.2 % Normal 0.0-0.5 [facility] Comment on above: Performed By: #### B MP, TSH #### [facility] [address] [place] [address] Dr. Reema Mireles LYMPH # 1.8 103/ul Normal 1.2-3.8 [facility] Comment on above: Performed By: #### B GURPREET, TSH #### [facility] [address] [place] [address] Dr. Reema Mireles Lymphocytes/100 WBC (Bld) 19.0 % Critically low 20.5-60.0 [facility] Comment on above: Performed By: #### B MP, TSH #### [facility] [address] [place] [address] Dr. Reema Mireles MANUAL DIFF REQ NO Normal [facility] Comment on above: Performed By: #### B MP, TSH #### [facility] [address] [place] [address] Dr. Reema Mireles MCH (RBC) [Entitic mass] 30.4 pg Normal 26.7-34.0 [facility] Comment on above: Performed By: #### B MP, TSH #### [facility] [address] [place] [address] Dr. Reema Mireles MCHC (RBC) [Mass/Vol] 34.4 g/dL Normal 29.9-35.2 [facility] Comment on above: Performed By: #### B MP, TSH #### [facility] [address] [place] [address] Dr. Reema Mireles MCV (RBC) [Entitic vol] 88.4 fL Normal 81.0-99.0 [facility] Comment on above: Performed By: #### B MP, TSH #### [facility] [address] [place] [address] Dr. Reema Mireles MONO # 0.7 103/ul Normal 0.3-0.8 [facility] Comment on above: Performed By: #### B MP, TSH #### [facility] [address] [place] [address] Dr. Reema Mireles Monocytes/100 WBC (Bld) 6.8 % Normal 1.7-12.0 [facility] Comment on above: Performed By: #### B MP, TSH #### [facility] [address] [place] [address] Dr. Reema Mireles NEUT # 7.0 103/ul Critically high 1.4-6.5 [facility] Comment on above: Performed By: #### B MP, TSH #### [facility] [address] [place] [address] Dr. Reema Mireles Neutrophils/100 WBC (Bld) 72.5 % Normal 43.0-75.0 [facility] Comment on above: Performed By: #### B MP, TSH #### [facility] [address] [place] [address] Dr. Reema Mireles Platelet mean volume (Bld) [Entitic vol] 10.3 fL Normal 9.5-13.5 [facility] Comment on above: Performed By: #### B MP, TSH #### [facility] [address] [place] [address] Dr. Reema Mireles PLT 358 103/ul Normal 150-450 [facility] Comment on above: Performed By: #### B MP, TSH #### [facility] [address] [place] [address] Dr. Reema Mireles RBC 4.21 106/ul Normal 4.20-5.40 [facility] Comment on above: Performed By: #### B MP, TSH #### [facility] [address] [place] [address] Dr. Reema Mireles WBC 9.7 103/ul Normal 4.0-11.0 [facility] Comment on above: Performed By: #### B MP, TSH #### [facility] [address] [place] [address] Dr. Reema Mireles CULTURE BLOODon 04-09-2022 Microscopic examination of blood, culture Culture Observations: NO GROWTH AT 5 DAYS. Normal [facility] Comment on above: Performed By: #### B MP, TSH #### [facility] [address] [place] [address] Dr. Reema Mireles ER URINE PROFILEon 2 Bilirubin Ql (U) Negative Normal NEGATIVE [facility] Comment on above: Performed By: #### B MP, TSH #### [facility] [address] [place] [address] Dr. Reema Mireles Clarity (U) CLEAR Normal CLEAR [facility] Comment on above: Performed By: #### B MP, TSH #### [facility] [address] [place] [address] Dr. Reema Mireles Color (U) LT. YELLOW Normal YELLOW [facility] Comment on above: Performed By: #### B MP, TSH #### [facility] [address] [place] [address] Dr. Reema ELIZALDE A micrscopic examination will be performed if indicated. Normal [facility] Comment on above: Performed By: #### B MP, TSH #### [facility] [address] [place] [address] Dr. Reema Mireles Glucose Ql (U) Negative Normal NEGATIVE [facility] Comment on above: Performed By: #### B MP, TSH #### [facility] [address] [place] [address] Dr. Reema Mireles Hemoglobin Ql (U) TRACE-INTACT Abnormal NEGATIVE [facility] Comment on above: Performed By: #### B MP, TSH #### [facility] [address] [place] [address] Dr. Reema Mireles Ketones Ql (U) Negative Normal NEGATIVE [facility] Comment on above: Performed By: #### B MP, TSH #### [facility] [address] [place] [address] Dr. Reema Mireles LEUKOCYTES Negative Normal NEGATIVE [facility] Comment on above: Performed By: #### B MP, TSH #### [facility] [address] [place] [address] Dr. Reema Mireles Nitrite Ql (U) Negative Normal NEGATIVE [facility] Comment on above: Performed By: #### B MP, TSH #### [facility] [address] [place] [address] Dr. Reema Mireles pH (U) 5.5 [pH] Normal 5-9 [facility] Comment on above: Performed By: #### B MP, TSH #### [facility] [address] [place] [address] Dr. Reema Mireles SPEC GRAVITY <=1.005 Abnormal 1.005-<=1.025 [facility] Comment on above: Performed By: #### B MP, TSH #### [facility] [address] [address] [address] Reema Mireles UA PROTEIN Negative Normal NEGATIVE/ TRACE [facility] Comment on above: Performed By: #### B MP, TSH #### [facility] [address] [address] [address] Reema Mireles UR MICRO IND INDICATED Normal [facility] Comment on above: Performed By: #### B MP, TSH #### [facility] [address] [address] [address] Reema Mireles Urobilinogen Qn (U) 0.2 {Renny'U}/dL Normal 0.2 - 1. 0 [facility] Comment on above: Performed By: #### B MP, TSH #### [facility] [address] [place] [address] Dr. Reema Mireles LACTATE/LACTIC ACIDon 2021 Lactate [Moles/Vol] 2.2 mmol/L Critically high 0.4-1.9 [facility] Comment on above: Performed By: #### B MP, TSH #### [facility] [address] [place] [address] Dr. Reema Mireles URon 04-09-2022 , QUAL Negative Normal NEGATIVE [facility] Comment on above: Performed By: #### B MP, TSH #### [facility] [address] [place] [address] Dr. Reema Mireles PROF 14(COMP METB)on 022 Albumin [Mass/Vol] 4.5 g/dL Normal 3.4-5.0 [facility] Comment on above: Performed By: #### C MP #### [facility] [address] [address] [address] Reema Mireles Albumin/Globulin [Mass ratio] 1.3 {ratio} Normal [facility] Comment on above: Performed By: #### C MP #### [facility] [address] [address] [address] eRema Mireles ALP [Catalytic activity/Vol] 83 U/L Normal 46-116 [facility] Comment on above: Performed By: #### C MP #### [facility] [address] [address] [address] Reema Mireles ALT [Catalytic activity/Vol] 26 U/L Normal 14-59 [facility] Comment on above: Performed By: #### C MP #### [facility] [address] [address] [address] Reema Mireles Anion gap [Moles/Vol] 14.9 mmol/L Normal [facility] Comment on above: Performed By: #### C MP #### [facility] [address] [address] [address] Reema Mireles AST [Catalytic activity/Vol] 12 U/L Critically low 15-37 [facility] Comment on above: Performed By: #### C MP #### [facility] [address] [address] [address] Reema Mireles Bilirubin [Mass/Vol] 0.3 mg/dL Normal 0.2-1.0 [facility] Comment on above: Performed By: #### C MP #### [facility] [address] [address] [address] Reema Mireles Calcium [Mass/Vol] 9.6 mg/dL Normal 8.5-10.1 [facility] Comment on above: Performed By: #### C MP #### [facility] [address] [address] [address] Reema Mireles Chloride [Moles/Vol] 103 mmol/L Normal 98-107 [facility] Comment on above: Performed By: #### C MP #### [facility] [address] [address] [address] Reema Mireles CO2 [Moles/Vol] 24.4 mmol/L Normal 21.0-32.0 [facility] Comment on above: Performed By: #### C MP #### [facility] [address] [address] [address] Reema Mireles Creatinine [Mass/Vol] 0.87 mg/dL Normal 0.55-1.02 [facility] Comment on above: Performed By: #### C MP #### [facility] [address] [address] [address] Reema Mireles EGFR-AF NEW ZEALANDER >60 Normal >=[address] [facility] Comment on above: Performed By: #### C MP #### [facility] [address] [address] [address] Reema Mireles EGFR-NON AF NEW ZEALANDER >60 Normal >=60 [facility] Comment on above: Performed By: #### C MP #### [facility] [address] [address] [address] Reema Mireles Globulin (S) [Mass/Vol] 3.5 g/dL Normal [facility] Comment on above: Performed By: #### C MP #### [facility] [address] [address] [address] Reema Mireles Glucose [Mass/Vol] 109 mg/dL Critically high 74-106 [facility] Comment on above: Performed By: #### C MP #### [facility] [address] [address] [address] Reema Mireles Potassium [Moles/Vol] 3.3 mmol/L Critically low 3.5-5.1 [facility] Comment on above: Performed By: #### C MP #### [facility] [address] [place] [address] Dr. Reema Mireles Protein [Mass/Vol] 8.0 g/dL Normal 6.4-8.2 [facility] Comment on above: Performed By: #### C MP #### [facility] [address] [address] [address] Reema Mireles Sodium [Moles/Vol] 139 mmol/L Normal 136-145 [facility] Comment on above: Performed By: #### C MP #### [facility] [address] [address] [address] Reema Mireles Urea nitrogen [Mass/Vol] 9.0 mg/dL Normal 7.0-18.0 [facility] Comment on above: Performed By: #### C MP #### [facility] [address] [place] [address] Dr. Reema Mireles Urea nitrogen/Creatinine [Mass ratio] 10.3 mg/mg Normal [facility] Comment on above: Performed By: #### C MP #### [facility] [address] [place] [address] Dr. Reema Mireles URINE MICROSCOPIC ONLYon BACTERIA NONE SEEN Normal NONE SEEN The [facility] Comment on above: Performed By: #### B MP, TSH #### [facility] [address] [place] [address] Dr. Reema Mireels Bacteria identified Cx Nom (U) NOT INDICATED Normal [facility] Comment on above: Performed By: #### B MP, TSH #### [facility] [address] [place] [address] Dr. Reema Mireles CAST NONE SEEN Normal NONE SEEN [facility] Comment on above: Performed By: #### B MP, TSH #### [facility] [address] [place] [address] Dr. Reema Mireles Crystals LM Nom (Urine sed) NONE SEEN Normal NONE SEEN [facility] Comment on above: Performed By: #### B MP, TSH #### [facility] [address] [place] [address] Dr. Reema Mireles Epithelial cells LM Ql (Urine sed) RARE Normal NONE SEEN /RARE [facility] Comment on above: Performed By: #### B MP, TSH #### [facility] [address] [place] [address] Dr. Reema Mireles MUCOUS NONE SEEN Normal NONE SEEN [facility] Comment on above: Performed By: #### B MP, TSH #### [facility] [address] [place] [address] Dr. Reema Mireles RBC 0-2 Normal 0-2 [facility] Comment on above: Performed By: #### B MP, TSH #### [facility] [address] [place] [address] Dr. Reema Mireles WBC NONE SEEN Normal NONE SEEN [facility] Comment on above: Performed By: #### B MP, TSH #### [facility] [address] [place] [address] Dr. Reema Mireles CBC AUTO DIFFon 10-25-2021 BASO # 0.0 103/ul Normal 0.0-0.1 [facility] Comment on above: Performed By: #### C BC #### [facility] [address] [place] [address] Dr. Reema Mierles Basophils/100 WBC (Bld) 0.6 % Normal 0.2-2.0 [facility] Comment on above: Performed By: #### C BC #### [facility] [address] [place] [address] Dr. Reema Mireles EO # 0.1 103/ul Normal 0.0-0.7 [facility] Comment on above: Performed By: #### C BC #### [facility] [address] [place] [address] Dr. Reema Mireles Eosinophils/100 WBC (Bld) 1.8 % Normal 0.9-7.0 [facility] Comment on above: Performed By: #### C BC #### [facility] [address] [place] [address] Dr. Reema Mireles Erythrocyte distribution width (RBC) [Ratio] 11.9 % Normal 11.0-15.0 [facility] Comment on above: Performed By: #### C BC #### [facility] [address] [place] [address] Dr. Reema Mireles Hematocrit (Bld) [Volume fraction] 38.1 % Normal 36.0-48.0 [facility] Comment on above: Performed By: #### C BC #### [facility] [address] [place] [address] Dr. Reema Mireles Hemoglobin (Bld) [Mass/Vol] 13.1 g/dL Normal 12.0-16.0 [facility] Comment on above: Performed By: #### C BC #### [facility] [address] [place] [address] Dr. Reema Mireles IG # 0.01 10e3/ul Normal 0.00-0.03 [facility] Comment on above: Performed By: #### C BC #### [facility] [address] [place] [address] Dr. Reema Mireles IG % 0.1 % Normal 0.0-0.5 [facility] Comment on above: Performed By: #### C BC #### [facility] [address] [place] [address] Dr. Reema Mireles LYMPH # 1.9 103/ul Normal 1.2-3.8 [facility] Comment on above: Performed By: #### C BC #### [facility] [address] [place] [address] Dr. Reema Mireles Lymphocytes/100 WBC (Bld) 27.8 % Normal 20.5-60.0 [facility] Comment on above: Performed By: #### C BC #### [facility] [address] [place] [address] Dr. Reema Mireles MANUAL DIFF REQ NO Normal [facility] Comment on above: Performed By: #### C BC #### [facility] [address] [place] [address] Dr. Reema Mireles MCH (RBC) [Entitic mass] 30.5 pg Normal 26.7-34.0 [facility] Comment on above: Performed By: #### C BC #### [facility] [address] [place] [address] Dr. Reema Mireles MCHC (RBC) [Mass/Vol] 34.4 g/dL Normal 29.9-35.2 [facility] Comment on above: Performed By: #### C BC #### [facility] [address] [place] [address] Dr. Reema Mireles MCV (RBC) [Entitic vol] 88.8 fL Normal 81.0-99.0 [facility] Comment on above: Performed By: #### C BC #### [facility] [address] [place] [address] Dr. Reema Mireles MONO # 0.8 103/ul Normal 0.3-0.8 [facility] Comment on above: Performed By: #### C BC #### [facility] [address] [place] [address] Dr. Reema Mireles Monocytes/100 WBC (Bld) 11.2 % Normal 1.7-12.0 [facility] Comment on above: Performed By: #### C BC #### [facility] [address] [place] [address] Dr. Reema Mireles NEUT # 4.0 103/ul Normal 1.4-6.5 [facility] Comment on above: Performed By: #### C BC #### [facility] [address] [place] [address] Dr. Reema Mireles Neutrophils/100 WBC (Bld) 58.5 % Normal 43.0-75.0 [facility] Comment on above: Performed By: #### C BC #### [facility] [address] [place] [address] Dr. Reema Mireles Platelet mean volume (Bld) [Entitic vol] 10.0 fL Normal 9.5-13.5 [facility] Comment on above: Performed By: #### C BC #### [facility] [address] [place] [address] Dr. Reema Mireles PLT 361 103/ul Normal 150-450 [facility] Comment on above: Performed By: #### C BC #### [facility] [address] [place] [address] Dr. Reema Mireles RBC 4.29 106/ul Normal 4.20-5.40 [facility] Comment on above: Performed By: #### C BC #### [facility] [address] [place] [address] Dr. Reema Mireles WBC 6.8 103/ul Normal 4.0-11.0 [facility] Comment on above: Performed By: #### C BC #### [facility] [address] [place] [address] Dr. Reema Mireles PREG QUANT HCGon 10-25-2021 HCG QUANT 1 mIU/mL Normal [facility] Comment on above: Performed By: #### P REGQNT #### [facility] [address] [place] [address] Dr. Reema Mireles HCG RANGE SEE BELOW Normal [facility] Comment on above: Result Comment: 5-50 0-1 WEEK 40-300 1-2 WEEKS 100-1,000 2-3 WEEKS 500-6,000 3-4 WEEKS 5,000-200,000 1-2 MONTHS 10,000-100,000 2-3 MONTHS 3,000-50,000 2ND TRIMESTER 1,000-50,000 3RD TRIMESTER Performed By: #### P REGQNT #### [facility] [id number] Reema Mireles Covid-19 PCR ([facility])on 09-29 SARS-CoV-2 (COVID-19) RNA FRANKIE+probe Ql (Unsp spec) Not detected Normal NOT DETECTED [facility] Comment on above: Result Comment: This test is not yet approved or cleared by the [place] FDA. When there are no FDA-approved or cleared tests available, and other criteria are met, FDA can make tests available under an emergency access mechanism called an Emergency Use Authorization (EUA). The EUA for this test is supported by the [employer] of Health and Human Service's (HHS's) declaration [...] SARS-CoV-2. Performed By: #### C VDTB #### [facility] [address] [place], [place] [address] Dr. Reema Mireles Vital Signs Date Time Vital Sign Value Performing Clinician Facility 11-12-2023 14:15-0500 Body weight 108.86 kg [employer] Work Phone: [facility] 11-12-2023 14:15-0500 Diastolic blood pressure 72 mm[Hg] [employer] Work Phone: [facility] 11-12-2023 14:15-0500 Systolic blood pressure 122 mm[Hg] Devan Tello DO Work Phone: [facility] 04-12-2022 21:04-0400 Diastolic blood pressure 84 mm[Hg] [facility] 04-12-2022 21:04-0400 Heart rate 82 /min [facility] 04-12-2022 21:04-0400 Respiratory rate 16 /min [facility] 04-12-2022 21:04-0400 SaO2% (BldA) [Mass fraction] 98 % [facility] 04-12-2022 21:04-0400 Systolic blood pressure 120 mm[Hg] [facility] 04-12-2022 20:32-0400 gluc 80 mg/dL [facility] Comment on above: Result Comment: not taken due to pt refu jimmie of any injection 04-12-2022 20:32-0400 gluc [facility] 04-12-2022 19:25-0400 Body temperature 99.32 [degF] [facility] 04-12-2022 19:25-0400 Diastolic blood pressure 84 mm[Hg] [facility] 04-12-2022 19:25-0400 Heart rate 90 /min [facility] 04-12-2022 19:25-0400 Respiratory rate 18 /min [facility] 04-12-2022 19:25-0400 SaO2% (BldA) [Mass fraction] 98 % [facility] 04-12-2022 19:25-0400 Systolic blood pressure 118 mm[Hg] [facility] 04-09-2022 12:20-0400 Body height 165.1 cm Deonna Back Other [facility] Other 04-09-2022 12:20-0400 Body mass index (BMI) [Ratio] 35.61 kg/m2 Deonna Nazanin Other [facility] Other 04-09-2022 12:20-0400 Body temperature 98.4 [degF] Deonna Nazanin Other [facility] Other 04-09-2022 12:20-0400 Body weight 97.07 kg Deonna Nazanin Other [facility] Other 04-09-2022 12:20-0400 Diastolic blood pressure 83 mm[Hg] Deonna Nazanin Other [facility] Other 04-09-2022 12:20-0400 Respiratory rate 18 /min Deonna Nazanin Other [facility] Other 04-09-2022 12:20-0400 SaO2% (BldA) [Mass fraction] 99 % Deonna Nazanin Other [facility] Other 04-09-2022 12:20-0400 Systolic blood pressure 135 mm[Hg] Deonna Nazanin Other [facility] Other 04-02-2022 19:00-0400 Body height 165.1 cm Deonna Nazanin Other [facility] Other 04-02-2022 19:00-0400 Body mass index (BMI) [Ratio] 35.71 kg/m2 Deonna Nazanin Other [facility] Other 04-02-2022 19:00-0400 Body temperature 98.1 [degF] Deonna Nazanin Other [facility] Other 04-02-2022 19:00-0400 Body weight 97.34 kg Deonna Back Other [facility] Other 04-02-2022 19:00-0400 Diastolic blood pressure 83 mm[Hg] Deonna Back Other [facility] Other 04-02-2022 19:00-0400 Respiratory rate 18 /min Deonna Back Other [facility] Other 04-02-2022 19:00-0400 SaO2% (BldA) [Mass fraction] 100 % Deonna Back Other [facility] Other 04-02-2022 19:00-0400 Systolic blood pressure 134 mm[Hg] Deonna Back Other [facility] Other Encounters Encounter Date Encounter Type Care [...] Unsolicited Start: 10-15-2023 End: 01-18-2024 ambulatory CYDNEY LESO Not Available Start: 09-17-2023 End: 09-17-2023 ambulatory [...] 04-12-2022 End: 04-12-2022 [facility] Start: 04-10-2022 End: 04-10-2022 ambulatory Deonna Back Other [facility] Other Start: 04-10-2022 Telephone encounter Deonna Back [facility] Start: 04-09-2022 End: 04-09-2022 ambulatory Deonna Back Other [facility] Other Start: 04-09-2022 Office outpatient vi sit 15 minutes Deonna Back [facility] Start: 04-09-2022 End: 04-09-[address] LUIS ANTONIO SUTTON Facility:[facility] Start: 04-02-2022 (URG) Urgent Care Visit Deonna pace [facility] Start: 04-02-2022 End: 04-02-2022 ambulatory Deonna Back Other [facility] Other Start: 10-25-2021 End: 10-25-[address] ADRYAN MARIE Facility:[facility] Start: 10-24-2021 Encounter for preprocedural laboratory examination DR DEVAN TELLO [facility] Start: 10-22-2021 End: 10-23-[address] ADRYAN MARIE Facility:[facility] Start: 10-22-2021 End: 10-23-2021 Encounter for preprocedural laboratory examination DR ADRYAN MARIE Facility:[facility] Start: 10-19-2021 Encounter for other preprocedural examination DR DEVAN TELLO [facility] Start: 10-17-2021 End: 10-18-[address] ADRYAN [...] Routine [facility] [address] [place] [id number] Cydney Leos PA [address] [place] [address] [facility] Start: 11-26-2023 End: 11-26-2023 Professional / ancillary services management 11/26/2023 10:30 AM EST Ancillary Procedure [facility] [address] [place] [phone] [facility] Start: 11-12-2023 End: 11-12-2024 [...] [address] [facility] [place] [phone] Devan Tello DO [address] [facility] [place] [address] [facility] Payers Date Payer Category Payer Unknown [facility]ICA[facility] [id number] 2023-Present [address] [place] [address] [id number] 2023 Medicaid [id number] 2001 Unknown [id number] 2.16.840.1.330259.3.579.2. 593 2001 Unknown [id number] 2.16.840.1.270596.3.579.2. 593 2001 Unknown [id number] 2.16.840.1.128948.3.579.2. 593 2001 Unknown [id number] 2.16.840.1.701483.3.579.2. 593 2001 Unknown [id number] 2.16.840.1.490703.3.579.2. 593 2001 Unknown [id number] 2.16.840.1.902917.3.579.2. 593 2001 Unknown [id number] 2.16.840.1.560120.3.579.2. 593 2001 Unknown [id number] 2.16.840.1.018462.3.579.2. 593 2001 Unknown [id number] 2.16.840.1.544975.3.579.2. 593 2001 Unknown [id number] 2.16.840.1.813506.3.579.2. 593 2001 Unknown [id number] 2.16.840.1.684112.3.579.2. 593 2001 Unknown [id number] 2.16.840.1.492931.3.579.2. 1259 2001 Unknown [id number] 2.16.840.1.366579.3.579.2. 1259 2001 Unknown [id number] 2.16.840.1.860149.3.579.2. 1259 2001 Unknown [id number] 2.16.840.1.525014.3.579.2. 1259 2001 Unknown [id number] 2.16.840.1.365552.3.579.2. 1259 2001 Unknown [id number] 2.16.840.1.412235.3.579.2. 1259 2001 Unknown [id number] 2.16.840.1.818818.3.579.[address] [facility] [id number] 2.16.840.1.528305.19 Social History Date Type Detail Facility Unknown if ever smoked [facility] Other Sex Assigned At [facility] Other Tobacco smoking status No Smoking Status Entered [facility] Start: 06-20-2023 Tobacco smoking status PAIS Tobacco smoking consumption unknown [facility] Start: [...] 04-12-2022 Functional Status N/A [facility] History of Present illness Narrative [...] Devan Tello DO documented in this encounter [facility] Discharge instructions 04-12-2022 Note Date & Type [...] help with your condition: Managing pain Take dfne-lgh-etaugga and prescription medicines only as told by [...] 09/14/2006 Document Revised: 04/04/2019 Document Reviewed: 04/04/2019 [employer] Patient Education 2020 [employer]. 04/12/2022 21:07:38 Vertigo Vertigo Vertigo is the [...] if you feel dizzy. General instructions Take ypnf-ths-nbtozlq and prescription medicines only as told by [...] 06/24/2006 Document Revised: 08/08/2019 Document Reviewed: 08/08/2019 [employer] Patient Education 2019 [employer]. Follow Up Care 04/12/2022 19:25:17 With:ADRYAN MARIE Address: [address] [place] [address] [phone] (1) When:04/15/2022 20:55:24 Comments:Return to the emergency room if her headache gets worse, vertigo becomes persistent or any new symptoms [facility] Evaluation note 04-09-2022 Note Date & [...] She was prescribed Zofran with no improvement. [facility] Other Evaluation note 04-02-2022 Note Date & [...] 3 days. No swimming for a week [facility] Other Clinical Note 10-25-2021 Note Date & Type Note Facility 10-25-2021 Note OPERATIVE NOTE PROCEDURE: Diagnostic laparoscopy. PREOPERATIVE DIAGNOSIS: Pelvic pain, dyspareunia dysmenorrhea. POSTOPERATIVE DIAGNOSIS: Pelvic pain, dyspareunia dysmenorrhea. ANESTHESIA: General. SURGEON: Devan Tello D.O. BESSEM[employer] CONVERTER OPERATOR: JAE Worley URINE OUTPUT: Yellow and clear. [...] to Recovery Room in stable condition. [facility] Signed and Approved by: DR DEVAN TLELO . 11/01/2021 17:31:00 [facility] Evaluation + Plan note Note Date & Type Note Facility Evaluation + Plan note No data available for this section [facility] Evaluation note Note Date & Type Note Facility Evaluation note No Information [facility] Other Evaluation note Note Date & Type [...] endometriosis Hospitalization History RSV as a baby [facility] Other Progress note Note Date & Type Note Facility Progress note No data available for this section [facility] Summary Purpose Family History No Family History Records FoundNo Family History Records FoundNo Family History Records Found Advance Directives No Advanced Directives Records FoundNo Advanced Directives Records FoundNo Advanced Directives Records Found Additional Source Comments REASON FOR VISIT (unrecogniz ed section and content) Reason Comments Routine Visit Care Team (unrecognized sect ion and content) Javascript Software Engineer Relationship Specialty Start Date End Date Adryan Marie MD [address] [place] [address] PCP - General Family Medicine 9/22/23 Javascript Software Engineer Relationship Specialty Start Date End Date Adryan Marie MD [address] [place] [address] PCP - General Family Medicine 06/19/23 INFORMATION SOURCE (unrecogn ized section and content) DATE CREATED AUTHOR 04/26/[address] [facility] DATE CREATED AUTHOR AUTHOR'S ORGANIZ ATION 09/19/2022 Uzma Bourgeois [facility] pital DATE CREATED AUTHOR AUTHOR'S ORGANIZ ATION 12/28/2023 [facility] dical Specialists [facility] FOR RECORDS PERTAINING TO PATIENTS WHO [...] BE BASED ON THE PRIMARY CLINICAL RECORDS. [facility] [employer] [facility]. provides no warranty or guarantee of the accuracy or completeness of information in this document.
[2024-01-02 08:06] VITALS: BP 112/80
== END 2024-01-02 08:47 | disposition home or self-care (01) ==
LOC: FBCO 07:53 → FBC 08:00
PROVIDERS: PCP Family Medicine; Visit Provider Obstetrics & Gynecology
DX: O36.63X0 Maternal care for excessive fetal growth, third trimester, not applicable or unspecified (principal)
CPT/HCPCS: 59025

== ENCOUNTER 2024-01-05 20:53 | Outpatient (REF) | payer OTHER, SELFPAY | END 2024-01-05 20:54 | disposition home or self-care (01) | LOC: LAB 20:53 | PROVIDERS: PCP Family Medicine; Visit Provider Obstetrics & Gynecology | DX: Z34.93 Encounter for supervision of normal pregnancy, unspecified, third trimester (principal) | CPT/HCPCS: 87081 ==

== ENCOUNTER 2024-01-06 04:20 | Outpatient (OUT) | payer OTHER, SELFPAY ==
--- OUTSIDE RECORDS SUMMARY | 2024-01-06 04:24 | XMS_ITS | CCD ---
Author Organization [facility] Care Team Providers Care Clinical Nurse Specialist Name Role Phone Deonna Back Unavailable DEFJAILENE, ADRYAN Primary Care Physician LESLEY, DR LUIS ANTONIO Jorge Consulting Unavailable LESLEY, DR LUIS ANTONIO Jorge Attending Unavailable DEFRANCE, DR CORNELIUS Primary Care Unavailable LESLEY, DR LUIS ANTONIO Jorge Admitting Unavailable DEFRANCE, DR CORNELIUS Primary Care Unavailable DIETER GONZALEZ Admitting Unavailable DIETER GONZALEZ Attending Unavailable CIHKA LEOS Consulting Unavailable BRENNANRANCE, DR CORNELIUS Primary [...] Unavailable Defrance Adryan OBRIEN Primary Care Provider [phone] CYDNEY LEOS Attending Unavailable CYDNEY LEOS Attending Unavailable DEVAN TELLO Attending Unavailable CYDNEY LEOS Attending Unavailable DEVAN TELLO Attending Unavailable CYDNEY LEOS Attending Unavailable DEVAN TELLO Attending Unavailable Allergies Allergy Classification Reported Allergen(s) Allergy Type Date of Onset Reaction(s) Facility (3 sources) Sulfacetamide Drug Allergy rash Legal Egg Other (1 source) Sulfonamides (Antibiotic); Translations: [sulfa drugs] Drug allergy Hyperpyrexia (finding) [facility] (1 source) Sulfonamides (Antibiotic) Drug allergy (disorder) 07-26-20 14 [facility] (3 sources) Sulfonamides (Antibiotic) Drug Intolerance [...] BY MOUTH EVERY MORNING 0 10/06/2023 Active WG-Kyf-BO-Ferndale-3 ( Gummies/DHA & FA) 0.4-32.5 MG chewable tablet (3 sources) Start: 06-19-2023 End: 06-18-2024 IC-Txh-BK-Ferndale-3 ( Gummies/DHA & FA) 0.4-32.5 MG chewable tablet Indications: Missed menses Chew 32.5 mg in the morning. 30 tablet 11 06/19/2023 06/18/2024 Active Completed/Discontinued Medications Medication Drug Class(es) Dates Sig (Normalized) Sig (Original) [id number] 200 actuat albuterol 0.09 mg/actuat metered dose [...] / neomycin 3.5 mg/ml / polymyxin b [id number] unt/ml otic suspension (3 sources) Aminoglycoside Antibacterial, Polymyxin-class Antibacterial, Corticosteroid Start: 04-02-2022 Neomycin-Polymyx in-HC 3.5-53271-5 3 drops left ear Three times a [...] UA Negative Negative - 4(70) +++ mg/dL [facility] Blood, UA Negative Negative - 50 Cedric/mcL [facility] Clarity, UA Clear [facility] re Color, UA Yellow [facility] Glucose, UA Negative Negative - 1999(110) ++++ mg/dL [facility] Interpretation and review of laboratory results Normal [facility] Ketones, UA Negative Negative - 160(16) ++++ mg/dL [facility] Leukocytes, UA Negative Negative - 500+++ Alessandro/mcL [facility] Nitrite, UA Negative Negative - Positive [facility] pH, UA 6.0 5 - 9 [facility] e Protein, UA Negative Negative - 1999(20) ++++ mg/dL [facility] Spec Grav, UA 1.020 1 - 1.03 [facility] Urobilinogen, UA 0.2 0.2 - 12 mg/dL [facility] ALL CBC WITH AUTO DIFFon BASOPHILS ABSOLUTE AUTO 0.0 [facility] Basophils/100 WBC (Bld) 0.3 % 0.2 - 2.0 % [facility] Eosinophils/100 WBC (Bld) 1.0 % 0.9 - 7.0 % [facility] Erythrocyte distribution width (RBC) [Ratio] 12.5 % 11.0 - 15.0 % [facility] Hematocrit (Bld) [Volume fraction] 35.1 % Low 36.0 - 48.0 % [facility] Hemoglobin (Bld) [Mass/Vol] 11.7 g/dL Low 12.0 - 16.0 g/dL [facility] IMMATURE GRANULOCYTES ABS AUTO 0.08 High [facility] Immature granulocytes/100 WBC (Bld) 0.6 % High 0.0 - 0.5 % [facility] Interpretation and review of laboratory results [facility]normal [facility] LY[facility]OC[facility] ABSOLUTE AUTO 1.[address] [facility] Lymphocytes/100 WBC (Bld) 11.9 % Low 20.5 - 60.0 % [facility] MCH (RBC) [Entitic mass] 30.7 pg 26.7 - 34.0 pg [facility] MCHC (RBC) [Mass/Vol] 33.3 g/dL 29.9 - 35.2 g/dL [facility] MCV (RBC) [Entitic vol] 92.1 fL 81.0 - 99.0 fL [facility] MONOCYTES ABSOLUTE AUTO 0.8 [facility] Monocytes/100 WBC (Bld) 5.5 % 1.7 - 12.0 % [facility] NEUTROPHILS ABSOLUTE AUTO 11.1 High [facility] Neutrophils/100 WBC (Bld) 80.7 % High 43.0 - 75.0 % [facility] Platelet mean volume (Bld) [Entitic vol] 10.6 fL 9.5 - 13.5 fL [facility] are [facility] EO # 0.1 [facility] PLT 292 [facility] RBC 3.81 Low [facility] TBH WBC 13.8 High [facility] CBC AUTO DIFFon 09-14-2022 BASO # 0.0 103/ul Normal 0.0-0.1 [facility] Comment on above: Performed By: #### B MP, TSH #### [facility] [address] [address] [address] Reema Mireles Basophils/100 WBC (Bld) 0.6 % Normal 0.2-2.0 [facility] Comment on above: Performed By: #### B MP, TSH #### [facility] [address] [address] [address] Reema Mireles EO # 0.0 103/ul Normal 0.0-0.7 [facility] Comment on above: Performed By: #### B MP, TSH #### [facility] [address] [address] [address] Reema Mireles Eosinophils/100 WBC (Bld) 0.6 % Critically low 0.9-7.0 [facility] Comment on above: Performed By: #### B MP, TSH #### [facility] [address] [place] [address] Dr. Reema Mireles Erythrocyte distribution width (RBC) [Ratio] 11.9 % Normal 11.0-15.0 [facility] Comment on above: Performed By: #### B GURPREET, TSH #### [facility] [address] [place] [address] Dr. Reema Mireles Hematocrit (Bld) [Volume fraction] 37.8 % Normal 36.0-48.0 [facility] Comment on above: Performed By: #### B GURPREET, TSH #### [facility] [address] [place] [address] Dr. Reema Mireles Hemoglobin (Bld) [Mass/Vol] 13.5 g/dL Normal 12.0-16.0 [facility] Comment on above: Performed By: #### B GURPREET, TSH #### [facility] [address] [place] [address] Dr. Reema Mireles IG # 0.01 10e3/ul Normal 0.00-0.03 [facility] Comment on above: Performed By: #### B GURPREET, TSH #### [facility] [address] [place] [address] Dr. Reema Mireles IG % 0.2 % Normal 0.0-0.5 [facility] Comment on above: Performed By: #### B GURPREET, TSH #### [facility] [address] [place] [address] Dr. Reema Mireles LYMPH # 1.6 103/ul Normal 1.2-3.8 [facility] Comment on above: Performed By: #### B GURPREET, TSH #### [facility] [address] [place] [address] Dr. Reema Mireles Lymphocytes/100 WBC (Bld) 25.5 % Normal 20.5-60.0 [facility] Comment on above: Performed By: #### B GURPREET, TSH #### [facility] [address] [place] [address] Dr. Reema Mireles MANUAL DIFF REQ NO Normal [facility] Comment on above: Performed By: #### B MP, TSH #### [facility] [address] [place] [address] Dr. Reema Mireles MCH (RBC) [Entitic mass] 30.9 pg Normal 26.7-34.0 [facility] Comment on above: Performed By: #### B MP, TSH #### [facility] [address] [place] [address] Dr. Reema Mireles MCHC (RBC) [Mass/Vol] 35.7 g/dL Critically high 29.9-35.2 [facility] Comment on above: Performed By: #### B MP, TSH #### [facility] [address] [place] [address] Dr. Reema Mireles MCV (RBC) [Entitic vol] 86.5 fL Normal 81.0-99.0 [facility] Comment on above: Performed By: #### B MP, TSH #### [facility] [address] [place] [address] Dr. Reema Mireles MONO # 0.5 103/ul Normal 0.3-0.8 [facility] Comment on above: Performed By: #### B MP, TSH #### [facility] [address] [place] [address] Dr. Reema Mireles Monocytes/100 WBC (Bld) 8.5 % Normal 1.7-12.0 [facility] Comment on above: Performed By: #### B MP, TSH #### [facility] [address] [place] [address] Dr. Reema Mireles NEUT # 4.1 103/ul Normal 1.4-6.5 [facility] Comment on above: Performed By: #### B MP, TSH #### [facility] [address] [place] [address] Dr. Reema Mireles Neutrophils/100 WBC (Bld) 64.6 % Normal 43.0-75.0 [facility] Comment on above: Performed By: #### B MP, TSH #### [facility] [address] [place] [address] Dr. Reema Mireles Platelet mean volume (Bld) [Entitic vol] 9.9 fL Normal 9.5-13.5 [facility] Comment on above: Performed By: #### B GURPREET, TSH #### [facility] [address] [place] [address] Dr. Reema Mireles PLT 403 103/ul Normal 150-450 [facility] Comment on above: Performed By: #### B GURPREET, TSH #### [facility] [address] [place] [address] Dr. Reema Mireles RBC 4.37 106/ul Normal 4.20-5.40 [facility] Comment on above: Performed By: #### B GURPREET, TSH #### [facility] [address] [place] [address] Dr. Reema Mireles WBC 6.3 103/ul Normal 4.0-11.0 [facility] Comment on above: Performed By: #### B GURPREET, TSH #### [facility] [address] [place] [address] Dr. Reema Mireles PROF 14(COMP METB)on 022 Albumin [Mass/Vol] 4.3 g/dL Normal 3.4-5.0 [facility] Comment on above: Performed By: #### B GURPREET, TSH #### [facility] [address] [place] [address] Dr. Reema Mireles Albumin/Globulin [Mass ratio] 1.2 {ratio} Normal [facility] Comment on above: Performed By: #### B GURPREET, TSH #### [facility] [address] [place] [address] Dr. Reema Mireles ALP [Catalytic activity/Vol] 79 U/L Normal 46-116 [facility] Comment on above: Performed By: #### B GURPREET, TSH #### [facility] [address] [place] [address] Dr. Reema Mireles ALT [Catalytic activity/Vol] 31 U/L Normal 14-59 [facility] Comment on above: Performed By: #### B GURPREET, TSH #### [facility] [address] [place] [address] Dr. Reema Mireles Anion gap [Moles/Vol] 12.1 mmol/L Normal [facility] Comment on above: Performed By: #### B GURPREET, TSH #### [facility] [address] [place] [address] Dr. Reema Mireles AST [Catalytic activity/Vol] 17 U/L Normal 15-37 [facility] Comment on above: Performed By: #### B GURPREET, TSH #### [facility] [address] [place] [address] Dr. Reema Mireles Bilirubin [Mass/Vol] 0.4 mg/dL Normal 0.2-1.0 [facility] Comment on above: Performed By: #### B GURPREET, TSH #### [facility] [address] [place] [address] Dr. Reema Mireles Calcium [Mass/Vol] 8.9 mg/dL Normal 8.5-10.1 [facility] Comment on above: Performed By: #### B GURPREET, TSH #### [facility] [address] [place] [address] Dr. Reema Mireles Chloride [Moles/Vol] 98 mmol/L Normal 98-107 [facility] Comment on above: Performed By: #### B GURPREET, TSH #### [facility] [address] [place] [address] Dr. Reema Mireles CO2 [Moles/Vol] 27.0 mmol/L Normal 21.0-32.0 [facility] Comment on above: Performed By: #### B GURPREET, TSH #### [facility] [address] [place] [address] Dr. Reema Mireles Creatinine [Mass/Vol] 0.65 mg/dL Normal 0.55-1.02 [facility] Comment on above: Performed By: #### B GURPREET, TSH #### [facility] [address] [place] [address] Dr. Reema Mireles EGFR-AF CONGOLESE >60 Normal >=60 [facility] Comment on above: Performed By: #### B GURPREET, TSH #### [facility] [address] [place] [address] Dr. Reema Mireles EGFR-NON AF CONGOLESE >60 Normal >=60 [facility] Comment on above: Performed By: #### B GURPREET, TSH #### [facility] [address] [place] [address] Dr. Reema Mireles Globulin (S) [Mass/Vol] 3.5 g/dL Normal [facility] Comment on above: Performed By: #### B GURPREET, TSH #### [facility] [address] [place] [address] Dr. Reema Mireles Glucose [Mass/Vol] 106 mg/dL Normal 74-106 [facility] Comment on above: Performed By: #### B GURPREET, TSH #### [facility] [address] [place] [address] Dr. Reema Mireles Potassium [Moles/Vol] 3.1 mmol/L Critically low 3.5-5.1 [facility] Comment on above: Performed By: #### B GURPREET, TSH #### [facility] [address] [place] [address] Dr. Reema Mireles Protein [Mass/Vol] 7.8 g/dL Normal 6.4-8.2 [facility] Comment on above: Performed By: #### B GURPREET, TSH #### [facility] [address] [place] [address] Dr. Reema Mireles Sodium [Moles/Vol] 134 mmol/L Critically low 136-145 [facility] Comment on above: Performed By: #### B GURPREET, TSH #### [facility] [address] [place] [address] Dr. Reema Mireles Urea nitrogen [Mass/Vol] 6.0 mg/dL Critically low 7.0-18.0 [facility] Comment on above: Performed By: #### B GURPREET, TSH #### [facility] [address] [place] [address] Dr. Reema Mireles Urea nitrogen/Creatinine [Mass ratio] 9.2 mg/mg Normal [facility] Comment on above: Performed By: #### B GURPREET, TSH #### [facility] [address] [place] [address] Dr. Reema Mireles ACETONE SERUMon 08-11-2022 ACETONE Negative Normal NEGATIVE [facility] Comment on above: Performed By: #### B GURPREET, TSH #### [facility] [address] [place] [address] Dr. Reema Mireles CBC AUTO DIFFon 08-11-2022 BASO # 0.1 103/ul Normal 0.0-0.1 [facility] Comment on above: Performed By: #### B GURPREET, TSH #### [facility] [address] [place] [address] Dr. Reema Mireles Basophils/100 WBC (Bld) 0.5 % Normal 0.2-2.0 [facility] Comment on above: Performed By: #### B GURPREET, TSH #### [facility] [address] [place] [address] Dr. Reema Mireles EO # 0.1 103/ul Normal 0.0-0.7 [facility] Comment on above: Performed By: #### B GURPREET, TSH #### [facility] [address] [place] [address] Dr. Reema Mireles Eosinophils/100 WBC (Bld) 0.7 % Critically low 0.9-7.0 [facility] Comment on above: Performed By: #### B GURPREET, TSH #### [facility] [address] [place] [address] Dr. Reema Mireles Erythrocyte distribution width (RBC) [Ratio] 11.7 % Normal 11.0-15.0 [facility] Comment on above: Performed By: #### B GURPREET, TSH #### [facility] [address] [place] [address] Dr. Reema Mireles Hematocrit (Bld) [Volume fraction] 37.6 % Normal 36.0-48.0 [facility] Comment on above: Performed By: #### B GURPREET, TSH #### [facility] [address] [place] [address] Dr. Reema Mireles Hemoglobin (Bld) [Mass/Vol] 13.1 g/dL Normal 12.0-16.0 [facility] Comment on above: Performed By: #### B GURPREET, TSH #### [facility] [address] [place] [address] Dr. Reema Mireles IG # 0.02 10e3/ul Normal 0.00-0.03 [facility] Comment on above: Performed By: #### B MP, TSH #### [facility] [address] [place] [address] Dr. Reema Mireles IG % 0.2 % Normal 0.0-0.5 [facility] Comment on above: Performed By: #### B MP, TSH #### [facility] [address] [place] [address] Dr. Reema Mireles LYMPH # 2.7 103/ul Normal 1.2-3.8 [facility] Comment on above: Performed By: #### B MP, TSH #### [facility] [address] [place] [address] Dr. Reema Mireles Lymphocytes/100 WBC (Bld) 28.5 % Normal 20.5-60.0 [facility] Comment on above: Performed By: #### B MP, TSH #### [facility] [address] [place] [address] Dr. Reema Mireles MANUAL DIFF REQ NO Normal [facility] Comment on above: Performed By: #### B MP, TSH #### [facility] [address] [place] [address] Dr. Reema Mireles MCH (RBC) [Entitic mass] 30.3 pg Normal 26.7-34.0 [facility] Comment on above: Performed By: #### B MP, TSH #### [facility] [address] [place] [address] Dr. Reema Mireles MCHC (RBC) [Mass/Vol] 34.8 g/dL Normal 29.9-35.2 [facility] Comment on above: Performed By: #### B MP, TSH #### [facility] [address] [place] [address] Dr. Reema Mireles MCV (RBC) [Entitic vol] 87.0 fL Normal 81.0-99.0 [facility] Comment on above: Performed By: #### B MP, TSH #### [facility] [address] [place] [address] Dr. Reema Mireles MONO # 0.8 103/ul Normal 0.3-0.8 [facility] Comment on above: Performed By: #### B MP, TSH #### [facility] [address] [place] [address] Dr. Reema Mireles Monocytes/100 WBC (Bld) 8.2 % Normal 1.7-12.0 [facility] Comment on above: Performed By: #### B MP, TSH #### [facility] [address] [place] [address] Dr. Reema Mireles NEUT # 5.9 103/ul Normal 1.4-6.5 [facility] Comment on above: Performed By: #### B MP, TSH #### [facility] [address] [place] [address] Dr. Reema Mireles Neutrophils/100 WBC (Bld) 61.9 % Normal 43.0-75.0 [facility] Comment on above: Performed By: #### B MP, TSH #### [facility] [address] [place] [address] Dr. Reema Mireles Platelet mean volume (Bld) [Entitic vol] 10.2 fL Normal 9.5-13.5 [facility] Comment on above: Performed By: #### B MP, TSH #### [facility] [address] [place] [address] Dr. Reema Mireles PLT 382 103/ul Normal 150-450 [facility] Comment on above: Performed By: #### B MP, TSH #### [facility] [address] [place] [address] Dr. Reema Mireles RBC 4.32 106/ul Normal 4.20-5.40 [facility] Comment on above: Performed By: #### B MP, TSH #### [facility] [address] [place] [address] Dr. Reema Mireles WBC 9.6 103/ul Normal 4.0-11.0 [facility] Comment on above: Performed By: #### B MP, TSH #### [facility] [address] [place] [address] Dr. Reema Mireles CRPon 08-11-2022 CRP [Mass/Vol] mg/L Normal <=1.0 [facility] Comment on above: Performed By: #### B MP, TSH #### [facility] [address] [place] [address] Dr. Reema Mireles ER URINE PROFILEon 2 Bilirubin Ql (U) Negative Normal NEGATIVE [facility] Comment on above: Performed By: #### B MP, TSH #### [facility] [address] [place] [address] Dr. Reema Mireles Clarity (U) CLEAR Normal CLEAR [facility] Comment on above: Performed By: #### B MP, TSH #### [facility] [address] [place] [address] Dr. Reema Mireles Color (U) LT. YELLOW Normal YELLOW [facility] Comment on above: Performed By: #### B MP, TSH #### [facility] [address] [place] [address] Dr. Reema ELIZALDE A micrscopic examination will be performed if indicated. Normal [facility] Comment on above: Performed By: #### B MP, TSH #### [facility] [address] [place] [address] Dr. Reema Mireles Glucose Ql (U) Negative Normal NEGATIVE [facility] Comment on above: Performed By: #### B MP, TSH #### [facility] [address] [place] [address] Dr. Reema Mireles Hemoglobin Ql (U) Negative Normal NEGATIVE [facility] Comment on above: Performed By: #### B MP, TSH #### [facility] [address] [place] [address] Dr. Reema Mireles Ketones Ql (U) Negative Normal NEGATIVE [facility] Comment on above: Performed By: #### B MP, TSH #### [facility] [address] [place] [address] Dr. Reema Mireles LEUKOCYTES Negative Normal NEGATIVE [facility] Comment on above: Performed By: #### B MP, TSH #### [facility] [address] [place] [address] Dr. Reema Mireles Nitrite Ql (U) Negative Normal NEGATIVE [facility] Comment on above: Performed By: #### B MP, TSH #### [facility] [address] [place] [address] Dr. Reema Mireles pH (U) 5.5 [pH] Normal 5-9 [facility] Comment on above: Performed By: #### B MP, TSH #### [facility] [address] [place] [address] Dr. Reema Mireles SPEC GRAVITY <=1.005 Abnormal 1.005-<=1.025 [facility] Comment on above: Performed By: #### B GURPREET, TSH #### [facility] [address] [place] [address] Dr. Reema Mireles UA PROTEIN Negative Normal NEGATIVE/ TRACE [facility] Comment on above: Performed By: #### B GURPREET, TSH #### [facility] [address] [place] [address] Dr. Reema Mireles UR MICRO IND NOT INDICATED Normal [facility] Comment on above: Performed By: #### B GURPREET, TSH #### [facility] [address] [place] [address] Dr. Reema Mireles Urobilinogen Qn (U) 0.2 {Renny'U}/dL Normal 0.2 - 1. 0 [facility] Comment on above: Performed By: #### B GURPREET, TSH #### [facility] [address] [place] [address] Dr. Reema Mireles LIPASEon 08-11-2022 Lipase [Catalytic activity/Vol] 71.0 U/L Critically low 73.0-393.0 [facility] Comment on above: Performed By: #### B MP, TSH #### [facility] [address] [place] [address] Dr. Reema Mireles URon 08-11-2022 , QUAL Negative Normal NEGATIVE [facility] Comment on above: Performed By: #### C VDTBH #### [facility] [address] [address] [address] Reema Mireles PROF 14(COMP METB)on 08-11- 022 Albumin [Mass/Vol] 4.3 g/dL Normal 3.4-5.0 [facility] Comment on above: Performed By: #### B MP, TSH #### [facility] [address] [place] [address] Dr. Reema Mireles Albumin/Globulin [Mass ratio] 1.2 {ratio} Normal [facility] Comment on above: Performed By: #### B MP, TSH #### [facility] [address] [place] [address] Dr. Reema Mireles ALP [Catalytic activity/Vol] 70 U/L Normal 46-116 [facility] Comment on above: Performed By: #### B MP, TSH #### [facility] [address] [place] [address] Dr. Reema Mireles ALT [Catalytic activity/Vol] 16 U/L Normal 14-59 [facility] Comment on above: Performed By: #### B MP, TSH #### [facility] [address] [place] [address] Dr. Reema Mireles Anion gap [Moles/Vol] 10.5 mmol/L Normal [facility] Comment on above: Performed By: #### B MP, TSH #### [facility] [address] [place] [address] Dr. Reema Mireles AST [Catalytic activity/Vol] 8 U/L Critically low 15-37 [facility] Comment on above: Performed By: #### B MP, TSH #### [facility] [address] [place] [address] Dr. Reema Mireles Bilirubin [Mass/Vol] 0.3 mg/dL Normal 0.2-1.0 [facility] Comment on above: Performed By: #### B MP, TSH #### [facility] [address] [place] [address] Dr. Reema Mireles Calcium [Mass/Vol] 9.0 mg/dL Normal 8.5-10.1 [facility] Comment on above: Performed By: #### B MP, TSH #### [facility] [address] [address] [address] Reema Mireles Chloride [Moles/Vol] 104 mmol/L Normal 98-107 [facility] Comment on above: Performed By: #### B MP, TSH #### [facility] [address] [address] [address] Reema Mireles CO2 [Moles/Vol] 26.5 mmol/L Normal 21.0-32.0 [facility] Comment on above: Performed By: #### B MP, TSH #### [facility] [address] [place] [address] Dr. Reema Mireles Creatinine [Mass/Vol] 0.79 mg/dL Normal 0.55-1.02 [facility] Comment on above: Performed By: #### B MP, TSH #### [facility] [address] [place] [address] Dr. Reema Mireles EGFR-AF CONGOLESE >60 Normal >=60 [facility] Comment on above: Performed By: #### B MP, TSH #### [facility] [address] [place] [address] Dr. Reema Mireles EGFR-NON AF CONGOLESE >60 Normal >=60 [facility] Comment on above: Performed By: #### B MP, TSH #### [facility] [address] [place] [address] Dr. Reema Mireles Globulin (S) [Mass/Vol] 3.5 g/dL Normal [facility] Comment on above: Performed By: #### B MP, TSH #### [facility] [address] [place] [address] Dr. Reema Mireles Glucose [Mass/Vol] 106 mg/dL Normal 74-106 [facility] Comment on above: Performed By: #### B MP, TSH #### [facility] [address] [place] [address] Dr. Reema Mireles Potassium [Moles/Vol] 3.0 mmol/L Critically low 3.5-5.1 [facility] Comment on above: Performed By: #### B MP, TSH #### [facility] [address] [place] [address] Dr. Reema Mireles Protein [Mass/Vol] 7.8 g/dL Normal 6.4-8.2 [facility] Comment on above: Performed By: #### B MP, TSH #### [facility] [address] [place] [address] Dr. Reema Mireles Sodium [Moles/Vol] 138 mmol/L Normal 136-145 [facility] Comment on above: Performed By: #### B MP, TSH #### [facility] [address] [place] [address] Dr. Reema Mireles Urea nitrogen [Mass/Vol] 8.0 mg/dL Normal 7.0-18.0 [facility] Comment on above: Performed By: #### B MP, TSH #### [facility] [address] [place] [address] Dr. Reema Mireles Urea nitrogen/Creatinine [Mass ratio] 10.1 mg/mg Normal [facility] Comment on above: Performed By: #### B MP, TSH #### [facility] [address] [place] [address] Dr. Reema Mireles PROTIMEon 08-11-2022 INR Coag (PPP) [Relative time] 1.00 {INR} Normal [facility] Comment on above: Performed By: #### P T, PTT #### [facility] [address] [place] [address] Dr. Reema Mireles INR GUIDELINES SEE BELOW Normal [facility] Comment on above: Result Comment: FELICIANO RED INR: 2.0 - 3.0 CONDITIONS NOT LISTED BELOW 2.5 - 3.5 FOR PROSTHETIC HEART VALVE REPLACEMENT 2.5 - 3.5 RECURRENT THROMBOSIS Performed By: #### P T, PTT #### [facility] [address] [place] [address] Dr. Reema Mireles PT Coag (PPP) [Time] 10.8 s Normal 9.0-11.6 [facility] Comment on above: Performed By: #### P T, PTT #### [facility] [address] [place] [address] Dr. Reema Mireles PTTon 08-11-2022 aPTT Coag (Bld) [Time] 30.8 s Normal 22.3-36.2 [facility] Comment on above: Performed By: #### P T, PTT #### [facility] [address] [place] [address] Dr. Reema Mireles [facility] 10 mm/hr Normal <=20 [facility] Comment on above: Performed By: #### B MP, TSH #### [facility] [address] [place] [address] Dr. Reema Mireles TSHon 08-11-2022 TSH 3.313 uIU/mL Normal 0.358-3.740 [facility] Comment on above: Performed By: #### B MP, TSH #### [facility] [address] [place] [address] Dr. Reema Mireles Discharge Instructionson Discharge Instructions [id number] #1.00CD:127 Normal [facility] Comment on above: Other Comment: wrong patient STOOL CULTUREon 04-20-2022 Campylobacter Culture Final report Normal [facility] Comment on above: Performed By: #### B MP, TSH #### [facility] [address] [place] [address] Dr. Reema Mireles E coli Shiga Toxin EIA Negative Normal Negative [facility] Comment on above: Performed By: #### B MP, TSH #### [facility] [address] [place] [address] Dr. Reema Mireles Result 1 Comment Normal [facility] Comment on above: Result Comment: No S almonella or Shigella recovered. Performed By: #### B MP, TSH #### [facility] [address] [place] [address] Dr. Reema Mireles Result Comment: No C ampylobacter species isolated. Salmonella/Shigella Screen Final report Normal [facility] Comment on above: Performed By: #### B MP, TSH #### [facility] [address] [place] [address] Dr. Reema Mireles Coding Summary.on 04-14-2022 Coding Summary. CD:[id number]:[id number] Gh0bWw+PGhlYWQ+PE1FV AXxM04ddUSjaY4US5pUZ J1MPCWMTCZCOU9PRU9uv IM2SDgeI1RsgmWx NumusAMyNH34FPx6SCM4 xLjdKKtylO5msEUcT7t9 ZaCgJZ84wV51RZrtQEHb AkR7ZjKmzwussJAd D3miZyVobHLrSyo+PHRh YmxlIHdpZHRoPScxMDAl DlHejVixKR2nQp2tQBUo LWNvbGxhcHNlOiBj d6zqOPTeSZlsHK6fcZyi D5ZgpKW6LVMkm3j6Uv13 dHI+ROLcGXN4yCvkONjd b542AdNaz3thFIT5 iJIvKBttXBE3R07ut8J3 NMNiJYIoCWG5rDQ9lR2k eNeahdpwO1IkmUVbInE1 FRL0vLZhsR3afKjy aevarP3xCrt+J70TJY9K VFJCUH7QBpz6L2KfIbxy dHI+RL36OLXxVP84dHPf eLJoh4moeTt6QvHj IXUrPRN0wXgjVMynk3Px XJSgL43lpWZkf1H6IAYd nUykvFMzNaTqrXK5bI6r YXvmmnxrw1dczdgp Qwirg4ufez47fY68G15e ZRqkWEXhOGA2WODlURPl rZjrud0wtU4qJr6+IDxj u8vai7tpiCi6NzIr RKXxyyAleNeaPCG1o6Ga Jr71V1KreOigk9EmDeo5 tn09nUWdc0S8tCO1SPdg NQPflE7oLBddMiN5 JIYlHlNrfO31nWWiWQfl Cp1ltEboxDikAG5uMALe elwmSGMupJ0jPDPpaBGc lZdcSN0oBSSlxeyk h000CkVzVVK9AMLvlKBo O2WgyK8vWnQmMPSoUESp Y3IkcBDkNYofF961XRxd YtU4VMSaniOhT0Da BLTlpJrzErE0z2B0Hm0F r7MdicekFYL0WKmxFQQ5 GaP9SaYnBwU0V6HtBrh4 VQRegFkpCJ2iN3Oa JXKxfbussqxjcOM6TQBl OVOmrI52xAVxDCvpYk5r v6H9t428ZUPhIPHgwM42 Oc2lmEfuKWDkqVLX kD0ttpwrm5yopvprCmEw ZDNeNNh9SJe3CAYvnYgn EhNxBLV1GlM4ENV7jZXl fZ0dpAxgxzzdcE2a Oyc+A84leD1rZMD3ZFS3 yupyRXQwsuVeVW20FI00 R4ItBbukvOBimYY+PGRp itVtqCbbEJ6kMfIe z6oqz6EnQSvoB9QqINCj VDshPul6MVBdOSO5aSM6 xH2wDFHaGEyck4I0bVS6 V5BgxfAqht2mr1lr DGKwCCkaL36vlLUnf4M0 OMOfrPH2OHFgiMvkKtPu tU22Cmo+XNVjlDwwh2Ei Zoqmk4qgn2ahmLy9 IjMwJSIgdmFsaWduPSJ0 p5QmHp27N75pLMfrDZIh LEOxWDTnMTMgqLmtgk0x tD1nVh2+PGNvbCB3 bOS5oJ6tYHAhGzR8BNyz U398NbZxrAOgJercj7hy n8fhbXf7NcYxQDMfcdYw tQjfWYX6q9PgHm74 R27nXFixILNrFURaWTVh KUSenWlqnm9nlA2aZp9+ RL1jf8iygu87yI47xAB+ GXBcNJW7eWkiOSfl GVQqkC7bFTemChR8PRXx ZeMqqI92fVFfVDuzFz4i cKxysCgsNX4gPRWgojoy p451RsMkw1rpZKRo fQXaFRgsTZB7I34xq0E5 PXUgWGDrAZQ6nXS8uP1l bGlnbjogbGVmdDsgdmVy gZbrYWfkZBfuO388 IHRvcDsnPlBhdGllbnQg KdHoOPu3G1DyEoo0CKQv fAtdRF0uqPOhZTjvFp4r jKkfhVvfLF1oFFEn mfvpn209ZrTfi4txVUMq cHKcIKylMLK1E14rl9F3 PDNcQFPkMMK3wPB9sF3a bGlnbjogbGVmdDsg twFijSviHNwiRXjkV177 IHRvcDsnPkJpcnRoIERh kPE6PB50OI49iVUby7Q9 aSS5O4BxOTDxdfpu fddefTP3MZHoMPVaxN99 Dy5vdKqrYw7mLTThJVP9 LCHllGTfB7ApnX0bKuLv IMEzBJZaJ9IfaONb UKviO589VXadKoJ9MQBd dwCcJ8InXEAouTyvBzK3 d1K3Bt5QA1C8KF69HD18 bXKgk7T7kHT8S5Ay RPEnhshxkdaffPA8BGIf MBXxdB24Rd8icOlmMv6f MPPnVQN7MQQnySOqE5As mP5zWsDyCPBtTJGv S9YarCLcPTjuC166XZux QwG2DJWvwtZbA8ErWDEb bHwuVbN9h7Q1Km6EUCu5 AB97CE99tOYnc4M3 rMG0B4YqADStwfcbtdlr oWG7QKSxLWYrmG88Ve2r wLcfDo1kPHKsFIO2GMZa bTHdM0GnuN1rPiHr EAIkIXXvL8FpwYFgFPcy D623QMzwFbK4FOWhoxTk V8EhPLRmdOizCxX5s6H1 Df4FEGUrLU50CXC1 cKU0LP10GN77Q4NfUqkx dGFibGU+PHRhYmxlIHdp ZHRoPScxMDAlJyBzdHls XZ3jWw6wYSDeTRGj qXajxWFdLlXyp1lgZUMy SHzxNP3gtYrfM0XunRU3 KBAmi9t5Kc39K34gX7Ci dXA+RSEvjHW7uPX3 lB0xQjFfXrN8OIlsY976 GtWhhDRmAodev3fek2gs rRt0OtG5WFAxgdZjiEfb VSU3t7NhMc21W81a IHdpZHRoPSIxNSUiIHZh aAybaw8baY5cHy0+PGNv pFE7sVO4kH2yPpHcBfU6 YBneN301BiQrmXOz Xrnzo4wfa3bmfCr0DuEb BUMtswBfmZfkMSM6y2Oz Bw37M9WjzOjcw9RjWve7 av65zZHgl9E2xSP3 B7NcWCDynedmdBSizDip DR8iCGXmecctZQMuoR1o RMGmF3i6ZrMvJnH2UAgm U0XomsP8BCMpuKEu ZEasWBN8M56ax0B7VPSe SBWzWCO0oOG8lR5vqLig bjogbGVmdDsgdmVydGlj RHihUCraW488GBFx hJmxYMCuhG8dYWKkaDXw lCtwTM2nKNRcqpvbIkvG WZCZX40CM4pOGPNKYYOC SPT5G5SkGds6OAOs dRucPA3zpZKgOMjeCi5l yXnzjVyzEU2uUDUbcfeu FYCqeU8eDUExaAWouWau RJ3cBPZwfpmtt063 AaHtSXQ7ENGhyJGrS9Ht aD8jZtBoXRScDDRuW9Ek mWKlAGrvD790XTcjQrN5 XCQsayIfM4NmXDQa fEdlEdC4h6E9Li0wAm9x FM2mCQOnEW39OO46vEYv p2F4kRE5W8BlULSmuodv ovwelIB3GYDbPAKc gG60kNHfVKqlZl0cg7H4 y593CBTfRZXofK11Ex9q bRtwVNRlbYBEdX2nmcte q5cutccjTtUqGDZj DSw9VYl9DEJizPopUnIs WNN1UcR8QHX7dDImcP8o nQgyppyplC9kNri+MjAg XJBzcuB7D3KpJlf3 MYEyuQasUB2tkZApBGtb Ah5fwPvwxEzqYX7oBWSq dkkoWBUkwO8nPWNlyAXu gGpxPE9eOZTfpiqu v054NwSrZMH6FRKqiRXi Y8WquB5lOjQfUBWbETMg O3GvpYUyFBevP114NVpv NjY1LKGxmoPoP2Lc XXJdxHznTaH6v9Q0Vk2S HY0heLL2T5FfLvl0HYOi wJkeIP8upXFdUEqqHi2h uLefyUeeRJ8qPDAb lyepHOFxbZ1bHBNgaNNh nSgdLL8wCVFzrfdmu935 VxTkTNE1JGSkgUZuO6By oA7jSlIzUXRhGGHf E4BtsJVfEUgsC262PWbx NlL3MUNssrCyM0EzRMJv bFpdXcR5y4Q9Mv1XmVIf V0IvV1c5J8FcCwsu dHI+FF26KRGjJD75oNNv kSGqh9jcfYj7KmYgXZIz TFL9lRcuNThlh6VvLEUd R74udCXmj0G5MIVv bEloxHEtAfOfdLG0zD9j LPlfhzzpx3iixxayMaap k5gfxj86hD34X55rFYry ZHRoPSIzMCUiIHZh fMbini0uyE8sCi5+PGNv xUP9dGN1tM5gNtKdNlZ0 EWbzD181OeVpjMNgBddu y2uoj6zmxKz6ZyXe LWEoxvXysRtgXOP9c4To Kr07U04eSLyyRSZtOSLp ASKmYMAbuCjxfn0glO1i Ii8+EU3em8upup18 xU39kMJ+IHBmHMJ2nTah XZbwFBImdD0xGOxxHdY3 UTKuNvBqmQ47aUEwMCsc Hr2okJzipSmsCW0o FKAuqjxmj956MgIcb5yt JCLqvBAgSMgoDPQ9B86l q5X7JJAlKJVvGTU1kGZ3 kN1ilTcnrryvfYOe dDsgdmVydGljYWwtYWxp S942YIKzwLftFtCnsPMc Z8evbqQYQO4uRilauCA+ MGOyDQP8fSzsMEgm CGMpmA7mPLTjD7g1FgSw DlF0MUheG0ZbozB6TOKr aSLuTKOtoBKLpF3qyfgl r1gjzhsnDqBaNNSg GPq0REq9MAVmpLdeNwSy SDQ7GgP3NRV1yIGnzE9p eOibtpfdxU2aHca+RklO OjwvdGQ+PHRkIHN0 fZbkHQvpBAGrnE9xQBCf B6n4ReFqXkA4LQjeF0Kc owM1BNSggBKtLZKlcCYP xZ6teumve9vztrio CnAhQNXcWPu6DSk1PQPz pDblJaFoYQP4YdZ2IKO8 gMCtsZ7gxFjkxobbvR0u Oyc+TVJOOjwvdGQ+ BTFdFVE9vRutHPgvMYYj gW6sLXXlK4q5HoAqRsR3 IMeaN1MhnsD8RVEmwZBe RQDnpYBJuQ1hdyhw p1slllghXbAsPZTvMBg3 LPu0TVCmzXqoWqDgLXG3 TrN7JKW7aDMfiJ6yhQes ywjanG5vCsg+UGF5 SIQ9LZ91GF75B4LhLdiv dGFibGU+PHRhYmxlIHdp ZHRoPScxMDAlJyBzdHls ES1lAq8fQHJbFCJp bGxh (more content not included)... Normal [facility] CBC AUTO DIFFon 04-13-2022 BASO # 0.1 103/ul Normal 0.0-0.1 [facility] Comment on above: Performed By: #### C VDTBH #### [facility] [address] [place] [address] Dr. Reema Mireles Basophils/100 WBC (Bld) 0.6 % Normal 0.2-2.0 [facility] Comment on above: Performed By: #### C VDTBH #### [facility] [address] [place] [address] Dr. Reema Mireles EO # 0.0 103/ul Normal 0.0-0.7 [facility] Comment on above: Performed By: #### C VDTBH #### [facility] [address] [place] [address] Dr. Reema Mireles Eosinophils/100 WBC (Bld) 0.2 % Critically low 0.9-7.0 [facility] Comment on above: Performed By: #### C VDTBH #### [facility] [address] [place] [address] Dr. Reema Mireles Erythrocyte distribution width (RBC) [Ratio] 11.4 % Normal 11.0-15.0 [facility] Comment on above: Performed By: #### C VDTBH #### [facility] [address] [place] [address] Dr. Reema Mireles Hematocrit (Bld) [Volume fraction] 38.3 % Normal 36.0-48.0 [facility] Comment on above: Performed By: #### C VDTBH #### [facility] [address] [place] [address] Dr. Reema Mireles Hemoglobin (Bld) [Mass/Vol] 13.4 g/dL Normal 12.0-16.0 [facility] Comment on above: Performed By: #### C VDTBH #### [facility] [address] [place] [address] Dr. Reema Mireles IG # 0.01 10e3/ul Normal 0.00-0.03 [facility] Comment on above: Performed By: #### C VDTBH #### [facility] [address] [place] [address] Dr. Reema Mireles IG % 0.1 % Normal 0.0-0.5 [facility] Comment on above: Performed By: #### C VDTBH #### [facility] [address] [place] [address] Dr. Reema Mireles LYMPH # 1.8 103/ul Normal 1.2-3.8 [facility] Comment on above: Performed By: #### C VDTBH #### [facility] [address] [place] [address] Dr. Reema Mireles Lymphocytes/100 WBC (Bld) 22.2 % Normal 20.5-60.0 [facility] Comment on above: Performed By: #### C VDTBH #### [facility] [address] [place] [address] Dr. Reema Mireles MANUAL DIFF REQ NO Normal [facility] Comment on above: Performed By: #### C VDTBH #### [facility] [address] [place] [address] Dr. Reema Mireles MCH (RBC) [Entitic mass] 30.6 pg Normal 26.7-34.0 [facility] Comment on above: Performed By: #### C VDTBH #### [facility] [address] [place] [address] Dr. Reema Mireles MCHC (RBC) [Mass/Vol] 35.0 g/dL Normal 29.9-35.2 [facility] Comment on above: Performed By: #### C VDTBH #### [facility] [address] [place] [address] Dr. Reema Mireles MCV (RBC) [Entitic vol] 87.4 fL Normal 81.0-99.0 [facility] Comment on above: Performed By: #### C VDTB #### [facility] [address] [place] [address] Dr. Reema Mireles MONO # 0.7 103/ul Normal 0.3-0.8 [facility] Comment on above: Performed By: #### C VDTBH #### [facility] [address] [place] [address] Dr. Reema Mireles Monocytes/100 WBC (Bld) 8.2 % Normal 1.7-12.0 [facility] Comment on above: Performed By: #### C VDTBH #### [facility] [address] [place] [address] Dr. Reema Mireles NEUT # 5.5 103/ul Normal 1.4-6.5 [facility] Comment on above: Performed By: #### C VDTB #### [facility] [address] [place] [address] Dr. Reema Mireles Neutrophils/100 WBC (Bld) 68.7 % Normal 43.0-75.0 [facility] Comment on above: Performed By: #### C VDTBH #### [facility] [address] [place] [address] Dr. Reema Mireles Platelet mean volume (Bld) [Entitic vol] 10.1 fL Normal 9.5-13.5 [facility] Comment on above: Performed By: #### C VDTBH #### [facility] [address] [place] [address] Dr. Reema Mireles PLT 404 103/ul Normal 150-450 [facility] Comment on above: Performed By: #### C VDTBH #### [facility] [address] [place] [address] Dr. Reema Mireles RBC 4.38 106/ul Normal 4.20-5.40 [facility] Comment on above: Performed By: #### C VDTBH #### [facility] [address] [place] [address] Dr. Reema Mireles WBC 8.0 103/ul Normal 4.0-11.0 [facility] Comment on above: Performed By: #### C [facility] #### [facility] [address] HEAD WO CONon [...] AURELIA CARLOS Date: 2022-04-13 16:29 Normal [facility] Discharge Instructionson Discharge Instructions [id number] #1.00CD:127 Normal [facility] ED Note-Physicianon 04-13-20 22 ED Note-Physician Basic Information Time Seen: Lata Hardy M.D. 04/12/2022 19:56 Chief Complaint Pt. presents to the ed with c/o headache and vertigo since thursday. Pt. was seen at [facility] and started on prednisone. pt. stopped taking [...] The patient states she was seen at [facility] discharged home. She went to [...] neurological deficit. She has been seen at [facility] and started on prednisone. Possible [...] ADRYAN MARIE In 3 days 04/15/2022 EDT [facility] [place] [address]- Business (1) Additional Instructions: Return to the [...] Diagnostic Results No qualifying data available. Normal [facility] Comment on above: Result Comment: Elec tronically Signed By: Antony Villa, Lata Baxter\.br\Date and Time Signed: 04/13/22 04:56 EDT ER URINE PROFILEon 2 Bilirubin Ql (U) Negative Normal NEGATIVE [facility] Comment on above: Performed By: #### P REGU, ERUR #### [facility] [address] [place] [address] Dr. Reema Mireles Clarity (U) CLEAR Normal CLEAR [facility] Comment on above: Performed By: #### P REGU, ERUR #### [facility] [address] [place] [address] Dr. Reema Mireles Color (U) LT. YELLOW Normal YELLOW [facility] Comment on above: Performed By: #### P REGU, ERUR #### [facility] [address] [address] [address] Reema ELIZALDE A micrscopic examination will be performed if indicated. Normal [facility] Comment on above: Performed By: #### P REGU, ERUR #### [facility] [address] [place] [address] Dr. Reema Mireles Glucose Ql (U) Negative Normal NEGATIVE [facility] Comment on above: Performed By: #### P REGU, ERUR #### [facility] [address] [place] [address] Dr. Reema Mireles Hemoglobin Ql (U) Negative Normal NEGATIVE [facility] Comment on above: Performed By: #### P REGU, ERUR #### [facility] [address] [place] [address] Dr. Reema Mireles Ketones Ql (U) Negative Normal NEGATIVE [facility] Comment on above: Performed By: #### P REGU, ERUR #### [facility] [address] [place] [address] Dr. Reema Mireles LEUKOCYTES Negative Normal NEGATIVE [facility] Comment on above: Performed By: #### P REGU, ERUR #### [facility] [address] [place] [address] Dr. Reema Mireles Nitrite Ql (U) Negative Normal NEGATIVE [facility] Comment on above: Performed By: #### P REGU, ERUR #### [facility] [address] [place] [address] Dr. Reema Mireles pH (U) 6.5 [pH] Normal 5-9 [facility] Comment on above: Performed By: #### P REGU, ERUR #### [facility] [address] [place] [address] Dr. Reema Mireles SPEC GRAVITY 1.005 Normal 1.005-<=1.025 [facility] Comment on above: Performed By: #### P REGU, ERUR #### [facility] [address] [place] [address] Dr. Reema Mireles UA PROTEIN Negative Normal NEGATIVE/ TRACE [facility] Comment on above: Performed By: #### P REGU, ERUR #### [facility] [address] [place] [address] Dr. Reema Mireles UR MICRO IND NOT INDICATED Normal [facility] Comment on above: Performed By: #### P REGU, ERUR #### [facility] [address] [place] [address] Dr. Reema Mireles Urobilinogen Qn (U) 0.2 {Renny'U}/dL Normal 0.2 - 1. 0 [facility] Comment on above: Performed By: #### P REGU, ERUR #### [facility] [address] [address] [address] Reema Mireles URon 04-13-2022 , QUAL Negative Normal NEGATIVE [facility] Comment on above: Performed By: #### P REGU, ERUR #### [facility] [address] [address] [address] Reema Mireles PROF CHEM 8 (BAS METB)on Anion gap [Moles/Vol] 14.0 mmol/L Normal [facility] Comment on above: Performed By: #### B MP, TSH #### [facility] [address] [address] [address] Reema Mireles Calcium [Mass/Vol] 9.2 mg/dL Normal 8.5-10.1 [facility] Comment on above: Performed By: #### B MP, TSH #### [facility] [address] [address] [address] Reema Mireles Chloride [Moles/Vol] 102 mmol/L Normal 98-107 [facility] Comment on above: Performed By: #### B MP, TSH #### [facility] [address] [address] [address] Reema Mireles CO2 [Moles/Vol] 26.3 mmol/L Normal 21.0-32.0 [facility] Comment on above: Performed By: #### B MP, TSH #### [facility] [address] [address] [address] Reema Mireles Creatinine [Mass/Vol] 0.65 mg/dL Normal 0.55-1.02 [facility] Comment on above: Performed By: #### B MP, TSH #### [facility] [address] [address] [address] Reema Mireles EGFR-AF CONGOLESE >60 Normal >=60 [facility] Comment on above: Performed By: #### B MP, TSH #### [facility] [address] [address] [address] Reema Mireles EGFR-NON AF CONGOLESE >60 Normal >=60 [facility] Comment on above: Performed By: #### B MP, TSH #### [facility] [address] [address] [address] Reema Mireles Glucose [Mass/Vol] 92 mg/dL Normal 74-106 [facility] Comment on above: Performed By: #### B MP, TSH #### [facility] [address] [address] [address] Reema Mireles Potassium [Moles/Vol] 3.3 mmol/L Critically low 3.5-5.1 [facility] Comment on above: Performed By: #### B MP, TSH #### [facility] [address] [address] [address] Reema Mireles Sodium [Moles/Vol] 139 mmol/L Normal 136-145 [facility] Comment on above: Performed By: #### B MP, TSH #### [facility] [address] [address] [address] Reema Mireles Urea nitrogen [Mass/Vol] 8.0 mg/dL Normal 7.0-18.0 [facility] Comment on above: Performed By: #### B MP, TSH #### [facility] [address] [address] [address] Reema Mireles Urea nitrogen/Creatinine [Mass ratio] 12.3 mg/mg Normal [facility] Comment on above: Performed By: #### B MP, TSH #### [facility] [address] [place] [address] Dr. Reema Mireles TSHon 04-13-2022 TSH 1.293 uIU/mL Normal 0.358-3.740 [facility] Comment on above: Performed By: #### B MP, TSH #### [facility] [address] [place] [address] Dr. Reema Mireles Consent for Treatmenton 03-28 Consent for Treatment [id number] Normal [facility] ED Clinical Summaryon 2021 ED Clinical Summary [place] [id number] ED Clinical Summary Person Information Name: JUANPABLO CHAPARRO [facility] [facility] Age: 21 Years : 2000 Sex: Female Language: Estonian PCP: ADRYAN MARIE MD Marital Status: Single Phone: [phone] Visit Id: Visit Reason: Vertigo - recurrent; [...] 04/12/2022 21:07:38 04/12/2022 21:07:38 04/12/2022 21:07:38 ADDRESS: [address] [place] [phone] PHYS DOC NOTES: MEDICAL INFORMATION: Prescriptions Given: PATIENT EDUCATION INFORMATION: Instructions: General Headache Without Cause; Vertigo Follow up: With: Address: When: ADRYAN AMINJAILENE [address] [place], [place] [id number] Business (1) In 3 days 04/15/2022 Comments: Return to the emergency room if her headache gets worse, vertigo becomes persistent or any new symptoms DIAGNOSIS: 1:Vertigo; 2:Headache Normal [facility] ED Patient Education Noteon 04-12-2022 ED [...] you feel dizzy. General instructions ? Take pdvt-qsu-zbhagij and prescription medicines only as told by [...] Reviewed: 08/08/2019 Elsevier Patient Education ? 2020 [employer] Neurology General Headache Without Cause A [...] with your condition: Managing pain ? Take ldes-kzh-wodtkdi and prescription medicines only as told by [...] of beer (more content not included)... Normal [facility] ED Patient Summaryon 022 ED Patient Summary [place] [id number] Patient Discharge Instructions Person Information Name: JUANPABLO CHAPARRO Age: 21 Years Arrival Date: 04/12/2022 19:22:40 Discharge Diagnosis: 1:Vertigo; 2:Headache Primary Care Physician: ADRYAN MARIE MD Provider Information Primary Provider: Lata Hardy M.D. Advanced Ophthalmologist:None The exam and treatment you received in the Emergency Department were for an urgent problem and are not intended as complete care. It is important that you follow up with a doctor, nurse practitioner, or physician?s operational assistant for ongoing care. If your symptoms [...] Follow-up Instructions: With: Address: When: ADRYAN MARIE [address] [place], [place] [id number] [employer] ([employer] In 3 days 04/15/2022 Comments: Return to [...] opioids can be used to help relieve cnpbprwt-ao-hbrzmq pain and are often prescribed following a [...] addiction, tel (more content not included)... Normal [facility] CBC AUTO DIFFon 04-09-2022 BASO # 0.1 103/ul Normal 0.0-0.1 [facility] Comment on above: Performed By: #### B MP, TSH #### [facility] [address] [address] [address] Reema Mireles Basophils/100 WBC (Bld) 0.5 % Normal 0.2-2.0 [facility] Comment on above: Performed By: #### B MP, TSH #### [facility] [address] [place] [address] Dr. Reema Mireles EO # 0.1 103/ul Normal 0.0-0.7 [facility] Comment on above: Performed By: #### B MP, TSH #### [facility] [address] [place] [address] Dr. Reema Mireles Eosinophils/100 WBC (Bld) 1.0 % Normal 0.9-7.0 [facility] Comment on above: Performed By: #### B MP, TSH #### [facility] [address] [place] [address] Dr. Reema Mireles Erythrocyte distribution width (RBC) [Ratio] 11.7 % Normal 11.0-15.0 [facility] Comment on above: Performed By: #### B GURPREET, TSH #### [facility] [address] [place] [address] Dr. Reema Mireles Hematocrit (Bld) [Volume fraction] 37.2 % Normal 36.0-48.0 [facility] Comment on above: Performed By: #### B GURPREET, TSH #### [facility] [address] [place] [address] Dr. Reema Mireles Hemoglobin (Bld) [Mass/Vol] 12.8 g/dL Normal 12.0-16.0 [facility] Comment on above: Performed By: #### B GURPREET, TSH #### [facility] [address] [place] [address] Dr. Reema Mireles IG # 0.02 10e3/ul Normal 0.00-0.03 [facility] Comment on above: Performed By: #### B MP, TSH #### [facility] [address] [place] [address] Dr. Reema Mireles IG % 0.2 % Normal 0.0-0.5 [facility] Comment on above: Performed By: #### B MP, TSH #### [facility] [address] [place] [address] Dr. Reema Mireles LYMPH # 1.8 103/ul Normal 1.2-3.8 [facility] Comment on above: Performed By: #### B GURPREET, TSH #### [facility] [address] [place] [address] Dr. Reema Mireles Lymphocytes/100 WBC (Bld) 19.0 % Critically low 20.5-60.0 [facility] Comment on above: Performed By: #### B MP, TSH #### [facility] [address] [place] [address] Dr. Reema Mireles MANUAL DIFF REQ NO Normal [facility] Comment on above: Performed By: #### B MP, TSH #### [facility] [address] [place] [address] Dr. Reema Mireles MCH (RBC) [Entitic mass] 30.4 pg Normal 26.7-34.0 [facility] Comment on above: Performed By: #### B MP, TSH #### [facility] [address] [place] [address] Dr. Reema Mireles MCHC (RBC) [Mass/Vol] 34.4 g/dL Normal 29.9-35.2 [facility] Comment on above: Performed By: #### B MP, TSH #### [facility] [address] [place] [address] Dr. Reema Mireles MCV (RBC) [Entitic vol] 88.4 fL Normal 81.0-99.0 [facility] Comment on above: Performed By: #### B MP, TSH #### [facility] [address] [place] [address] Dr. Reema Mireles MONO # 0.7 103/ul Normal 0.3-0.8 [facility] Comment on above: Performed By: #### B MP, TSH #### [facility] [address] [place] [address] Dr. Reema Mireles Monocytes/100 WBC (Bld) 6.8 % Normal 1.7-12.0 [facility] Comment on above: Performed By: #### B MP, TSH #### [facility] [address] [place] [address] Dr. Reema Mireles NEUT # 7.0 103/ul Critically high 1.4-6.5 [facility] Comment on above: Performed By: #### B MP, TSH #### [facility] [address] [place] [address] Dr. Reema Mireles Neutrophils/100 WBC (Bld) 72.5 % Normal 43.0-75.0 [facility] Comment on above: Performed By: #### B MP, TSH #### [facility] [address] [place] [address] Dr. Reema Mireles Platelet mean volume (Bld) [Entitic vol] 10.3 fL Normal 9.5-13.5 [facility] Comment on above: Performed By: #### B MP, TSH #### [facility] [address] [place] [address] Dr. Reema Mireles PLT 358 103/ul Normal 150-450 [facility] Comment on above: Performed By: #### B MP, TSH #### [facility] [address] [place] [address] Dr. Reema Mireles RBC 4.21 106/ul Normal 4.20-5.40 [facility] Comment on above: Performed By: #### B MP, TSH #### [facility] [address] [place] [address] Dr. Reema Mireles WBC 9.7 103/ul Normal 4.0-11.0 [facility] Comment on above: Performed By: #### B MP, TSH #### [facility] [address] [place] [address] Dr. Reema Mireles CULTURE BLOODon 04-09-2022 Microscopic examination of blood, culture Culture Observations: NO GROWTH AT 5 DAYS. Normal [facility] Comment on above: Performed By: #### B MP, TSH #### [facility] [address] [place] [address] Dr. Reema Mireles ER URINE PROFILEon 2 Bilirubin Ql (U) Negative Normal NEGATIVE [facility] Comment on above: Performed By: #### B MP, TSH #### [facility] [address] [place] [address] Dr. Reema Mireles Clarity (U) CLEAR Normal CLEAR [facility] Comment on above: Performed By: #### B MP, TSH #### [facility] [address] [place] [address] Dr. Reema Mireles Color (U) LT. YELLOW Normal YELLOW [facility] Comment on above: Performed By: #### B MP, TSH #### [facility] [address] [place] [address] Dr. Reema ELIZALDE A micrscopic examination will be performed if indicated. Normal [facility] Comment on above: Performed By: #### B MP, TSH #### [facility] [address] [place] [address] Dr. Reema Mireles Glucose Ql (U) Negative Normal NEGATIVE [facility] Comment on above: Performed By: #### B MP, TSH #### [facility] [address] [place] [address] Dr. Reema Mireles Hemoglobin Ql (U) TRACE-INTACT Abnormal NEGATIVE [facility] Comment on above: Performed By: #### B MP, TSH #### [facility] [address] [place] [address] Dr. Reema Mireles Ketones Ql (U) Negative Normal NEGATIVE [facility] Comment on above: Performed By: #### B MP, TSH #### [facility] [address] [place] [address] Dr. Reema Mireles LEUKOCYTES Negative Normal NEGATIVE [facility] Comment on above: Performed By: #### B MP, TSH #### [facility] [address] [place] [address] Dr. Reema Mireles Nitrite Ql (U) Negative Normal NEGATIVE [facility] Comment on above: Performed By: #### B MP, TSH #### [facility] [address] [place] [address] Dr. Reema Mireles pH (U) 5.5 [pH] Normal 5-9 [facility] Comment on above: Performed By: #### B MP, TSH #### [facility] [address] [place] [address] Dr. Reema Mireles SPEC GRAVITY <=1.005 Abnormal 1.005-<=1.025 [facility] Comment on above: Performed By: #### B MP, TSH #### [facility] [address] [address] [address] Reema Mireles UA PROTEIN Negative Normal NEGATIVE/ TRACE [facility] Comment on above: Performed By: #### B MP, TSH #### [facility] [address] [address] [address] Reema Mireles UR MICRO IND INDICATED Normal [facility] Comment on above: Performed By: #### B MP, TSH #### [facility] [address] [address] [address] Reema Mireles Urobilinogen Qn (U) 0.2 {Renny'U}/dL Normal 0.2 - 1. 0 [facility] Comment on above: Performed By: #### B MP, TSH #### [facility] [address] [place] [address] Dr. Reema Mireles LACTATE/LACTIC ACIDon 2021 Lactate [Moles/Vol] 2.2 mmol/L Critically high 0.4-1.9 [facility] Comment on above: Performed By: #### B MP, TSH #### [facility] [address] [place] [address] Dr. Reema Mireles URon 04-09-2022 , QUAL Negative Normal NEGATIVE [facility] Comment on above: Performed By: #### B MP, TSH #### [facility] [address] [place] [address] Dr. Reema Mireles PROF 14(COMP METB)on 022 Albumin [Mass/Vol] 4.5 g/dL Normal 3.4-5.0 [facility] Comment on above: Performed By: #### C MP #### [facility] [address] [address] [address] Reema Mireles Albumin/Globulin [Mass ratio] 1.3 {ratio} Normal [facility] Comment on above: Performed By: #### C MP #### [facility] [address] [address] [address] Reema Mireles ALP [Catalytic activity/Vol] 83 U/L Normal 46-116 [facility] Comment on above: Performed By: #### C MP #### [facility] [address] [address] [address] Reema Mireles ALT [Catalytic activity/Vol] 26 U/L Normal 14-59 [facility] Comment on above: Performed By: #### C MP #### [facility] [address] [address] [address] Reema Mireles Anion gap [Moles/Vol] 14.9 mmol/L Normal [facility] Comment on above: Performed By: #### C MP #### [facility] [address] [address] [address] Reema Mireles AST [Catalytic activity/Vol] 12 U/L Critically low 15-37 [facility] Comment on above: Performed By: #### C MP #### [facility] [address] [address] [address] Reema Mireles Bilirubin [Mass/Vol] 0.3 mg/dL Normal 0.2-1.0 [facility] Comment on above: Performed By: #### C MP #### [facility] [address] [address] [address] Reema Mireles Calcium [Mass/Vol] 9.6 mg/dL Normal 8.5-10.1 [facility] Comment on above: Performed By: #### C MP #### [facility] [address] [address] [address] Reema Mireles Chloride [Moles/Vol] 103 mmol/L Normal 98-107 [facility] Comment on above: Performed By: #### C MP #### [facility] [address] [address] [address] Reema Mireles CO2 [Moles/Vol] 24.4 mmol/L Normal 21.0-32.0 [facility] Comment on above: Performed By: #### C MP #### [facility] [address] [address] [address] Reema Mireles Creatinine [Mass/Vol] 0.87 mg/dL Normal 0.55-1.02 [facility] Comment on above: Performed By: #### C MP #### [facility] [address] [address] [address] Reema Mireles EGFR-AF CONGOLESE >60 Normal >=60 [facility] Comment on above: Performed By: #### C MP #### [facility] [address] [address] [address] Reema Mireles EGFR-NON AF CONGOLESE >60 Normal >=60 [facility] Comment on above: Performed By: #### C MP #### [facility] [address] [address] [address] Reema Mireles Globulin (S) [Mass/Vol] 3.5 g/dL Normal [facility] Comment on above: Performed By: #### C MP #### [facility] [address] [address] [address] Reema Mireles Glucose [Mass/Vol] 109 mg/dL Critically high 74-106 [facility] Comment on above: Performed By: #### C MP #### [facility] [address] [address] [address] Reema Mireles Potassium [Moles/Vol] 3.3 mmol/L Critically low 3.5-5.1 [facility] Comment on above: Performed By: #### C MP #### [facility] [address] [place] [address] Dr. Reema Mireles Protein [Mass/Vol] 8.0 g/dL Normal 6.4-8.2 [facility] Comment on above: Performed By: #### C MP #### [facility] [address] [address] [address] Reema Mireles Sodium [Moles/Vol] 139 mmol/L Normal 136-145 [facility] Comment on above: Performed By: #### C MP #### [facility] [address] [address] [address] Reema Mireles Urea nitrogen [Mass/Vol] 9.0 mg/dL Normal 7.0-18.0 [facility] Comment on above: Performed By: #### C MP #### [facility] [address] [place] [address] Dr. Reema Mireles Urea nitrogen/Creatinine [Mass ratio] 10.3 mg/mg Normal [facility] Comment on above: Performed By: #### C MP #### [facility] [address] [place] [address] Dr. Reema Mireles URINE MICROSCOPIC ONLYon BACTERIA NONE SEEN Normal NONE SEEN [facility] Comment on above: Performed By: #### B MP, TSH #### [facility] [address] [place] [address] Dr. Reema Mireles Bacteria identified Cx Nom (U) NOT INDICATED Normal [facility] Comment on above: Performed By: #### B MP, TSH #### [facility] [address] [place] [address] Dr. Reema Mireles CAST NONE SEEN Normal NONE SEEN [facility] Comment on above: Performed By: #### B MP, TSH #### [facility] [address] [place] [address] Dr. Reema Mireles Crystals LM Nom (Urine sed) NONE SEEN Normal NONE SEEN [facility] Comment on above: Performed By: #### B MP, TSH #### [facility] [address] [place] [address] Dr. Reema Mireles Epithelial cells LM Ql (Urine sed) RARE Normal NONE SEEN /RARE [facility] Comment on above: Performed By: #### B MP, TSH #### [facility] [address] [place] [address] Dr. Reema Mireles MUCOUS NONE SEEN Normal NONE SEEN [facility] Comment on above: Performed By: #### B MP, TSH #### [facility] [address] [place] [address] Dr. Reema Mireles RBC 0-2 Normal 0-2 [facility] Comment on above: Performed By: #### B MP, TSH #### [facility] [address] [place] [address] Dr. Reema Mireles WBC NONE SEEN Normal NONE SEEN [facility] Comment on above: Performed By: #### B MP, TSH #### [facility] [address] [place] [address] Dr. Reema Mirlees CBC AUTO DIFFon 10-25-2021 BASO # 0.0 103/ul Normal 0.0-0.1 [facility] Comment on above: Performed By: #### C BC #### [facility] [address] [place] [address] Dr. Reema Mireles Basophils/100 WBC (Bld) 0.6 % Normal 0.2-2.0 [facility] Comment on above: Performed By: #### C BC #### [facility] [address] [place] [address] Dr. Reema Mireles EO # 0.1 103/ul Normal 0.0-0.7 [facility] Comment on above: Performed By: #### C BC #### [facility] [address] [place] [address] Dr. Reema Mireles Eosinophils/100 WBC (Bld) 1.8 % Normal 0.9-7.0 [facility] Comment on above: Performed By: #### C BC #### [facility] [address] [place] [address] Dr. Reema Mireles Erythrocyte distribution width (RBC) [Ratio] 11.9 % Normal 11.0-15.0 [facility] Comment on above: Performed By: #### C BC #### [facility] [address] [place] [address] Dr. Reema Mireles Hematocrit (Bld) [Volume fraction] 38.1 % Normal 36.0-48.0 [facility] Comment on above: Performed By: #### C BC #### [facility] [address] [place] [address] Dr. Reema Mireles Hemoglobin (Bld) [Mass/Vol] 13.1 g/dL Normal 12.0-16.0 [facility] Comment on above: Performed By: #### C BC #### [facility] [address] [place] [address] Dr. Reema Mireles IG # 0.01 10e3/ul Normal 0.00-0.03 [facility] Comment on above: Performed By: #### C BC #### [facility] [address] [place] [address] Dr. Reema Mireles IG % 0.1 % Normal 0.0-0.5 [facility] Comment on above: Performed By: #### C BC #### [facility] [address] [place] [address] Dr. Reema Mireles LYMPH # 1.9 103/ul Normal 1.2-3.8 [facility] Comment on above: Performed By: #### C BC #### [facility] [address] [place] [address] Dr. Reema Mireles Lymphocytes/100 WBC (Bld) 27.8 % Normal 20.5-60.0 [facility] Comment on above: Performed By: #### C BC #### [facility] [address] [place] [address] Dr. Reema Mireles MANUAL DIFF REQ NO Normal [facility] Comment on above: Performed By: #### C BC #### [facility] [address] [place] [address] Dr. Reema Mireles MCH (RBC) [Entitic mass] 30.5 pg Normal 26.7-34.0 [facility] Comment on above: Performed By: #### C BC #### [facility] [address] [place] [address] Dr. Reema Mireles MCHC (RBC) [Mass/Vol] 34.4 g/dL Normal 29.9-35.2 [facility] Comment on above: Performed By: #### C BC #### [facility] [address] [place] [address] Dr. Reema Mireles MCV (RBC) [Entitic vol] 88.8 fL Normal 81.0-99.0 [facility] Comment on above: Performed By: #### C BC #### [facility] [address] [place] [address] Dr. Reema Mireles MONO # 0.8 103/ul Normal 0.3-0.8 [facility] Comment on above: Performed By: #### C BC #### [facility] [address] [place] [address] Dr. Reema Mireles Monocytes/100 WBC (Bld) 11.2 % Normal 1.7-12.0 [facility] Comment on above: Performed By: #### C BC #### [facility] [address] [place] [address] Dr. Reema Mireles NEUT # 4.0 103/ul Normal 1.4-6.5 [facility] Comment on above: Performed By: #### C BC #### [facility] [address] [place] [address] Dr. Reema Mireles Neutrophils/100 WBC (Bld) 58.5 % Normal 43.0-75.0 [facility] Comment on above: Performed By: #### C BC #### [facility] [address] [place] [address] Dr. Reema Mireles Platelet mean volume (Bld) [Entitic vol] 10.0 fL Normal 9.5-13.5 [facility] Comment on above: Performed By: #### C BC #### [facility] [address] [place] [address] Dr. Reema Mireles PLT 361 103/ul Normal 150-450 [facility] Comment on above: Performed By: #### C BC #### [facility] [address] [place] [address] Dr. Reema Mireles RBC 4.29 106/ul Normal 4.20-5.40 [facility] Comment on above: Performed By: #### C BC #### [facility] [address] [place] [address] Dr. Reema Mireles WBC 6.8 103/ul Normal 4.0-11.0 [facility] Comment on above: Performed By: #### C BC #### [facility] [address] [place] [address] Dr. Reema Mireles PREG QUANT HCGon 10-25-2021 HCG QUANT 1 mIU/mL Normal [facility] Comment on above: Performed By: #### P REGQNT #### [facility] [address] [place] [address] Dr. Reema Mireles HCG RANGE SEE BELOW Normal [facility] Comment on above: Result Comment: 5-50 0-1 WEEK 40-300 1-2 WEEKS 100-1,000 2-3 WEEKS 500-6,000 3-4 WEEKS 5,000-200,000 1-2 MONTHS 10,000-100,000 2-3 MONTHS 3,000-50,000 2ND TRIMESTER 1,000-50,000 3RD TRIMESTER Performed By: #### P REGQNT #### [facility] [id number] Reema Mireles Covid-19 PCR ([facility])on 09-29 SARS-CoV-2 (COVID-19) RNA FRANKIE+probe Ql (Unsp spec) Not detected Normal NOT DETECTED [facility] Comment on above: Result Comment: This test is not yet approved or cleared by the [place] FDA. When there are no FDA-approved or cleared tests available, and other criteria are met, FDA can make tests available under an emergency access mechanism called an Emergency Use Authorization (EUA). The EUA for this test is supported by the [place] of Health and Human Service's (HHS's) declaration [...] SARS-CoV-2. Performed By: #### C VDTB #### [facility] [address] [place], [place] [address] Dr. Reema Mireles Vital Signs Date Time Vital Sign Value Performing Clinician Facility 11-12-2023 14:15-0500 Body weight 108.86 kg [employer] Work Phone: [facility] 11-12-2023 14:15-0500 Diastolic blood pressure 72 mm[Hg] [employer] Work Phone: [facility] 11-12-2023 14:15-0500 Systolic blood pressure 122 mm[Hg] Devan Tello DO Work Phone: [facility] 04-12-2022 21:04-0400 Diastolic blood pressure 84 mm[Hg] [facility] 04-12-2022 21:04-0400 Heart rate 82 /min [facility] 04-12-2022 21:04-0400 Respiratory rate 16 /min [facility] 04-12-2022 21:04-0400 SaO2% (BldA) [Mass fraction] 98 % [facility] 04-12-2022 21:04-0400 Systolic blood pressure 120 mm[Hg] [facility] 04-12-2022 20:32-0400 gluc 80 mg/dL [facility] Comment on above: Result Comment: not taken due to pt refu jimmie of any injection 04-12-2022 20:32-0400 gluc [facility] 04-12-2022 19:25-0400 Body temperature 99.32 [degF] [facility] 04-12-2022 19:25-0400 Diastolic blood pressure 84 mm[Hg] [facility] 04-12-2022 19:25-0400 Heart rate 90 /min [facility] 04-12-2022 19:25-0400 Respiratory rate 18 /min [facility] 04-12-2022 19:25-0400 SaO2% (BldA) [Mass fraction] 98 % [facility] 04-12-2022 19:25-0400 Systolic blood pressure 118 mm[Hg] [facility] 04-09-2022 12:20-0400 Body height 165.1 cm Deonna Back Other [facility] 04-09-2022 12:20-0400 Body mass index (BMI) [Ratio] 35.61 kg/m2 Deonna Nazanin Other [facility] 04-09-2022 12:20-0400 Body temperature 98.4 [degF] Deonna Nazanin Other [facility] 04-09-2022 12:20-0400 Body weight 97.07 kg Deonna Nazanin Other [facility] 04-09-2022 12:20-0400 Diastolic blood pressure 83 mm[Hg] Deonna Nazanin Other [facility] 04-09-2022 12:20-0400 Respiratory rate 18 /min Deonna Nazanin Other [facility] 04-09-2022 12:20-0400 SaO2% (BldA) [Mass fraction] 99 % Deonna Nazanin Other [facility] 04-09-2022 12:20-0400 Systolic blood pressure 135 mm[Hg] Deonna Nazanin Other [facility] 04-02-2022 19:00-0400 Body height 165.1 cm Deonna Nazanin Other [facility] 04-02-2022 19:00-0400 Body mass index (BMI) [Ratio] 35.71 kg/m2 Deonna Nazanin Other [facility] 04-02-2022 19:00-0400 Body temperature 98.1 [degF] Deonna Nazanin Other [facility] 04-02-2022 19:00-0400 Body weight 97.34 kg Deonna Back Other [facility] 04-02-2022 19:00-0400 Diastolic blood pressure 83 mm[Hg] Deonna Back Other [facility] 04-02-2022 19:00-0400 Respiratory rate 18 /min Deonna Back Other [facility] 04-02-2022 19:00-0400 SaO2% (BldA) [Mass fraction] 100 % Deonna Back Other [facility] 04-02-2022 19:00-0400 Systolic blood pressure 134 mm[Hg] Deonna Back Other [facility] Other Encounters Encounter Date Encounter Type Care [...] 04-12-2022 Emergency department [facility] Start: 04-10-2022 End: 04-10-2022 ambulatory Deonna Back Other [facility] Start: 04-10-2022 Telephone encounter Deonna Back [facility] Start: 04-09-2022 End: 04-09-2022 ambulatory Deonna Back Other [facility] Start: 04-09-2022 Office outpatient vi sit 15 minutes Deonna Back [facility] Start: 04-09-2022 End: 04-09-[address] LUIS ANTONIO SUTTON Facility:[facility] Start: 04-02-2022 (URG) Urgent Care Visit Deonna pace [facility] Start: 04-02-2022 End: 04-02-2022 ambulatory Deonna Back Other [facility] Start: 10-25-2021 End: 10-25-[address] ADRYAN MARIE Facility:[facility] Start: 10-24-2021 Encounter for preprocedural laboratory examination DR DEVAN TELLO [facility] Start: 10-22-2021 End: 10-23-[address] ADRYAN MARIE Facility:[facility] Start: 10-22-2021 End: 10-23-2021 Encounter for preprocedural laboratory examination DR ADRYAN MARIE Facility:[facility] Start: 10-19-2021 Encounter for other preprocedural examination DR DEVAN TELLO [facility] Start: 10-17-2021 End: 10-18-[address] [...] Routine [facility] [address] [place] [id number] Cydney Leos PA [address] [place] [address] [facility] Start: 11-26-2023 End: 11-26-2023 Professional / ancillary services management 11/26/2023 10:30 AM EST Ancillary Procedure [facility] [address] [place] [id number] [facility] Start: 11-12-2023 End: 11-12-2024 US for US OB SCAN FOR GROWTH Imaging Routine Excessive growth affecting management of in third trimester, single or unspecified fetus Expected: 11/12/2023 (Approximate), Expires: 11/12/2024 [facility] Work Phone: Comment on above: Expected: 11/12/2023 (Approximate), Expires: 11/12/2024 Start: 11-12-2023 End: 11-12-2023 Patient encounter procedure 11/12/2023 10:50 AM EST Routine [facility] [address] [facility] [id number] Devan Tello DO [address] [place] [address] [facility] Payers Date Payer Category Payer Unknown [facility] MEDICAID [id number] 2023-Present [address] [place] [address] [id number] 2023 Medicaid [id number] 2001 Unknown [id number] 2.16.840.1.723884.3.579.2. 593 2001 Unknown [id number] 2.16.840.1.343211.3.579.2. 593 2001 Unknown [id number] 2.16.840.1.030412.3.579.2. 593 2001 Unknown [id number] 2.16.840.1.104220.3.579.2. 593 2001 Unknown [id number] 2.16.840.1.867834.3.579.2. 593 2001 Unknown [id number] 2.16.840.1.779844.3.579.2. 593 2001 Unknown [id number] 2.16.840.1.112646.3.579.2. 593 2001 Unknown [id number] 2.16.840.1.679534.3.579.2. 593 2001 Unknown [id number] 2.16.840.1.396539.3.579.2. 593 2001 Unknown [id number] 2.16.840.1.408219.3.579.2. 593 2001 Unknown [id number] 2.16.840.1.405315.3.579.2. 593 2001 Unknown [id number] 2.16.840.1.032678.3.579.2. 1259 2001 Unknown [id number] 2.16.840.1.124906.3.579.2. 1259 2001 Unknown [id number] 2.16.840.1.008935.3.579.2. 1259 2001 Unknown [id number] 2.16.840.1.580962.3.579.2. 1259 2001 Unknown [id number] 2.16.840.1.735670.3.579.2. 1259 2001 Unknown [id number] 2.16.840.1.494591.3.579.2. 1259 2001 Unknown [id number] 2.16.840.1.651997.3.579.2. 1259 [address] [facility] [id number] 2.16.840.1.287561.19 Social History Date Type Detail Facility Unknown if ever smoked [facility] Sex Assigned At [facility] Tobacco smoking status No Smoking Status Entered [facility] Start: 06-20-2023 Tobacco smoking status GAIS Tobacco smoking consumption unknown [facility] Start: [...] 04-12-2022 Functional Status N/A [facility] History of Present illness Narrative 11-12-2023 [...] Devan Tello DO documented in this encounter [facility] Discharge instructions 04-12-2022 Note Date & Type [...] help with your condition: Managing pain Take aaxb-fhi-uuuyumd and prescription medicines only as told by [...] 09/14/2006 Document Revised: 04/04/2019 Document Reviewed: 04/04/2019 [employer] Patient Education 2020 [employer]. 04/12/2022 21:07:38 Vertigo Vertigo Vertigo is the [...] if you feel dizzy. General instructions Take ffkl-mfa-pdrjjhp and prescription medicines only as told by [...] 06/24/2006 Document Revised: 08/08/2019 Document Reviewed: 08/08/2019 [employer] Patient Education 2019 [employer]. Follow Up Care 04/12/2022 19:25:17 With:ADRYAN MARIE Address: [address] [place] [address] [phone] (1) When:04/15/2022 20:55:24 Comments:Return to the emergency room if her headache gets worse, vertigo becomes persistent or any new symptoms [facility] Evaluation note 04-09-2022 Note Date & [...] She was prescribed Zofran with no improvement. [facility] Evaluation note 04-02-2022 Note Date & [...] 3 days. No swimming for a week [facility] Clinical Note 10-25-2021 Note Date & Type Note Facility 10-25-2021 Note OPERATIVE NOTE PROCEDURE: Diagnostic laparoscopy. PREOPERATIVE DIAGNOSIS: Pelvic pain, dyspareunia dysmenorrhea. POSTOPERATIVE DIAGNOSIS: Pelvic pain, dyspareunia dysmenorrhea. ANESTHESIA: General. SURGEON: Devan Tello D.O. CUPROUS CHLORIDE HELPER: JAE Worley URINE OUTPUT: Yellow and [...] taken to Recovery Room in stable condition. [facility] Signed and Approved by: DR DEVAN TELLO . 11/01/2021 17:31:00 [facility] Evaluation + Plan note Note Date & Type Note Facility Evaluation + Plan note No data available for this section [facility] Evaluation note Note Date & Type Note Facility Evaluation note No Information [facility] Other Evaluation note Note Date & Type [...] endometriosis Hospitalization History RSV as a baby [facility] [employer] Other Progress note Note Date & Type Note Facility Progress note No data available for this section [facility] Summary Purpose Family History No Family History Records FoundNo Family History Records FoundNo Family History Records Found Advance Directives No Advanced Directives Records FoundNo Advanced Directives Records FoundNo Advanced Directives Records Found Additional Source Comments REASON FOR VISIT (unrecogniz ed section and content) Reason Comments Routine Visit Care Team (unrecognized sect ion and content) Clinical Nurse Specialist Relationship Specialty Start Date End Date Adryan Marie MD [address] [place] [address] PCP - General Family Medicine 9/22/23 Clinical Nurse Specialist Relationship Specialty Start Date End Date Adryan Marie MD [address] [place] [address] PCP - General Family Medicine 06/19/23 INFORMATION SOURCE (unrecogn ized section and content) DATE CREATED AUTHOR 04/26/2022 [facility] DATE CREATED AUTHOR AUTHOR'S ORGANIZ ATION 09/19/2022 Uzma Bourgeois [facility] pital DATE CREATED AUTHOR AUTHOR'S ORGANIZ ATION 12/28/[address] [facility] dical Specialists [facility] FOR RECORDS PERTAINING TO PATIENTS [...] ON THE PRIMARY CLINICAL RECORDS. [facility] [employer] [facility]. provides no warranty or guarantee of the accuracy or completeness of information in this document.
--- NOTE | 2024-01-06 09:54 | US_ITS ---
[address] [address] Patient Name: JUANPABLO CHAPARRO MRN: [id number] date: 2000 Sex: F Assigned Patient Location: [facility] Current Patient Location: [facility] Accession/Order Number: [id number] Exam Date: 01/06/2024 09:58 Report Date: 01/06/2024 10:39 At the request of: DEVAN GEORGE Procedure: US OB BPP w non-stress EXAMINATION: US OB BPP w non-stress HISTORY: Excessive growth COMPARISON: No relevant comparison available. TECHNIQUE: Ultrasound biophysical profile was performed in the radiology department. FINDINGS: BREATHING MOVEMENTS: 2.0 GROSS BODY MOVEMENTS: 2.0 TONE: 2.0 QUALITATIVE AMNIOTIC FLUID VOLUME: 2.0 PRESENTATION: CEPHALIC HEART RATE: 131.1 bpm H.B./min AMNIOTIC FLUID VOLUME: 11.6 cm cm GESTATIONAL AGE: 37 weeks 0 days CONCLUSION: Total biophysical profile score: 8.0 Electronically authenticated by: ADRYAN PRESCOTT Date: 01/06/2024 10:39
[2024-01-06 10:49] VITALS: BP 124/76
== END 2024-01-06 10:50 | disposition home or self-care (01) ==
LOC: US 04:21 → FBC 09:54
PROVIDERS: PCP Family Medicine; Visit Provider Obstetrics & Gynecology
DX: O36.63X0 Maternal care for excessive fetal growth, third trimester, not applicable or unspecified (principal); Z3A.37 37 weeks gestation of pregnancy
CPT/HCPCS: 76818

== ENCOUNTER 2024-01-09 00:13 | Outpatient (OUT) | payer OTHER, SELFPAY ==
--- OUTSIDE RECORDS SUMMARY | 2024-01-09 00:20 | XMS_ITS | CCD ---
[facility] Providers Care [employer] Estate [employer] Coordinator Name Role Phone Deonna Back Unavailable DEFJAILENE, [...] Unavailable Defrance Adryan OBRIEN Primary Care Provider [phone] CYDNEY LEOS Attending Unavailable CYDNEY LEOS Attending Unavailable DEVAN TELLO Attending Unavailable CYDNEY LEOS Attending Unavailable DEVAN TELLO Attending Unavailable CYDNEY LEOS Attending Unavailable DEVAN TELLO Attending Unavailable DEVAN TELLO Attending Unavailable Allergies Allergy Classification Reported Allergen(s) Allergy Type Date of Onset Reaction(s) Facility (3 sources) Sulfacetamide Drug Allergy rash [employer] Other (1 source) Sulfonamides (Antibiotic); Translations: [sulfa drugs] Drug allergy Hyperpyrexia (finding) [facility] (1 source) Sulfonamides (Antibiotic) Drug allergy (disorder) 07-26-20 14 [facility] (3 sources) Sulfonamides (Antibiotic) [...] BY MOUTH EVERY MORNING 0 10/06/2023 Active WB-Uum-AG-[place]-3 ( Gummies/DHA & FA) 0.4-32.5 MG chewable tablet (3 sources) Start: 06-19-2023 End: 06-18-2024 MN-Kkc-DU-[place]-3 ( Gummies/DHA & FA) 0.4-32.5 MG chewable tablet Indications: Missed menses Chew 32.5 mg in the morning. 30 tablet 11 06/19/2023 06/18/2024 Active Completed/Discontinued Medications Medication Drug Class(es) Dates Sig (Normalized) Sig (Original) [id number] 200 actuat albuterol 0.09 mg/actuat metered dose [...] / neomycin 3.5 mg/ml / polymyxin b [id number] unt/ml otic suspension (3 sources) Aminoglycoside Antibacterial, Polymyxin-class Antibacterial, Corticosteroid Start: 04-02-2022 Neomycin-Polymyx in-HC [id number] 3 drops left ear Three times a [...] UA Negative Negative - 4(70) +++ mg/dL [facility] Blood, UA Negative Negative - 50 Cedric/mcL [facility] Clarity, UA Clear [facility] re Color, UA Yellow [facility] Glucose, UA Negative Negative - 1999(110) ++++ mg/dL [facility] Interpretation and review of laboratory results Normal [facility] Ketones, UA Negative Negative - 160(16) ++++ mg/dL [facility] Leukocytes, UA Negative Negative - 500+++ Alessandro/mcL [facility] Nitrite, UA Negative Negative - Positive [facility] pH, UA 6.0 5 - 9 [facility] e Protein, UA Negative Negative - 1999(20) ++++ mg/dL [facility] Spec Grav, UA 1.020 1 - 1.03 [facility] Urobilinogen, UA 0.2 0.2 - 12 mg/dL [facility] ALL CBC WITH AUTO DIFFon BASOPHILS ABSOLUTE AUTO 0.0 [facility] Basophils/100 WBC (Bld) 0.3 % 0.2 - 2.0 % [facility] Eosinophils/100 WBC (Bld) 1.0 % 0.9 - 7.0 % [facility] Erythrocyte distribution width (RBC) [Ratio] 12.5 % 11.0 - 15.0 % [facility] Hematocrit (Bld) [Volume fraction] 35.1 % Low 36.0 - 48.0 % [facility] Hemoglobin (Bld) [Mass/Vol] 11.7 g/dL Low 12.0 - 16.0 g/dL [facility] IMMATURE GRANULOCYTES ABS AUTO 0.08 High [facility] Immature granulocytes/100 WBC (Bld) 0.6 % High 0.0 - 0.5 % [facility] Interpretation and review of laboratory results Abnormal [facility] LYMPHOCYTES ABSOLUTE AUTO 1.6 [facility] Lymphocytes/100 WBC (Bld) 11.9 % Low 20.5 - 60.0 % [facility] MCH (RBC) [Entitic mass] 30.7 pg 26.7 - 34.0 pg [facility] MCHC (RBC) [Mass/Vol] 33.3 g/dL 29.9 - 35.2 g/dL [facility] MCV (RBC) [Entitic vol] 92.1 fL 81.0 - 99.0 fL [facility] MONOCYTES ABSOLUTE AUTO 0.8 [facility] Monocytes/100 WBC (Bld) 5.5 % 1.7 - 12.0 % [facility] NEUTROPHILS ABSOLUTE AUTO 11.1 High [facility] Neutrophils/100 WBC (Bld) 80.7 % High 43.0 - 75.0 % [facility] Platelet mean volume (Bld) [Entitic vol] 10.6 fL 9.5 - 13.5 fL [facility] are [facility] EO # 0.1 [facility] PLT 292 [facility] RBC 3.81 Low [facility] WBC 13.8 High [facility] CBC AUTO DIFFon 09-14-2022 BASO # 0.0 103/ul Normal 0.0-0.1 [facility] Comment on above: Performed By: #### B GURPREET, TSH #### [facility] [address] [place] [address] Dr. Reema Mireles Basophils/100 WBC (Bld) 0.6 % Normal 0.2-2.0 [facility] Comment on above: Performed By: #### B GURPREET, TSH #### [facility] [address] [place] [address] Dr. Reema Mireles EO # 0.0 103/ul Normal 0.0-0.7 [facility] Comment on above: Performed By: #### B GURPREET, TSH #### [facility] [address] [place] [address] Dr. Reema Mirlees Eosinophils/100 WBC (Bld) 0.6 % Critically low 0.9-7.0 [facility] Comment on above: Performed By: #### B GURPREET, TSH #### [facility] [address] [place] [address] Dr. Reema Mireles Erythrocyte distribution width (RBC) [Ratio] 11.9 % Normal 11.0-15.0 [facility] Comment on above: Performed By: #### B GURPREET, TSH #### [facility] [address] [place] [address] Dr. Reema Mireles Hematocrit (Bld) [Volume fraction] 37.8 % Normal 36.0-48.0 [facility] Comment on above: Performed By: #### Inna VÁZQUEZ, TSH #### [facility] [address] [place] [address] Dr. Reema Mireles Hemoglobin (Bld) [Mass/Vol] 13.5 g/dL Normal 12.0-16.0 [facility] Comment on above: Performed By: #### Inna VÁZQUEZ, TSH #### [facility] [address] [place] [address] Dr. Reema Mireles IG # 0.01 10e3/ul Normal 0.00-0.03 [facility] Comment on above: Performed By: #### Inna VÁZQUEZ, TSH #### [facility] [address] [place] [address] Dr. Reema Mireles IG % 0.2 % Normal 0.0-0.5 [facility] Comment on above: Performed By: #### B GURPREET, TSH #### [facility] [address] [place] [address] Dr. Reema Mireles LYMPH # 1.6 103/ul Normal 1.2-3.8 [facility] Comment on above: Performed By: #### B GURPREET, TSH #### [facility] [address] [place] [address] Dr. Reema Mireles Lymphocytes/100 WBC (Bld) 25.5 % Normal 20.5-60.0 [facility] Comment on above: Performed By: #### Inna VÁZQUEZ, TSH #### [facility] [address] [place] [address] Dr. Reema Mireles MANUAL DIFF REQ NO Normal [facility] Comment on above: Performed By: #### B MP, TSH #### [facility] [address] [place] [address] Dr. Reema Mireles MCH (RBC) [Entitic mass] 30.9 pg Normal 26.7-34.0 [facility] Comment on above: Performed By: #### B MP, TSH #### [facility] [address] [place] [address] Dr. Reema Mireles MCHC (RBC) [Mass/Vol] 35.7 g/dL Critically high 29.9-35.2 [facility] Comment on above: Performed By: #### B GURPREET, TSH #### [facility] [address] [place] [address] Dr. Reema Mireles MCV (RBC) [Entitic vol] 86.5 fL Normal 81.0-99.0 [facility] Comment on above: Performed By: #### B GURPREET, TSH #### [facility] [address] [place] [address] Dr. Reema Mireles MONO # 0.5 103/ul Normal 0.3-0.8 [facility] Comment on above: Performed By: #### B GURPREET, TSH #### [facility] [address] [place] [address] Dr. Reema Mireles Monocytes/100 WBC (Bld) 8.5 % Normal 1.7-12.0 [facility] Comment on above: Performed By: #### B GURPREET, TSH #### [facility] [address] [place] [address] Dr. Reema Mireles NEUT # 4.1 103/ul Normal 1.4-6.5 [facility] Comment on above: Performed By: #### B MP, TSH #### [facility] [address] [place] [address] Dr. Reema Mireles Neutrophils/100 WBC (Bld) 64.6 % Normal 43.0-75.0 [facility] Comment on above: Performed By: #### B GURPREET, TSH #### [facility] [address] [place] [address] Dr. Reema Mireles Platelet mean volume (Bld) [Entitic vol] 9.9 fL Normal 9.5-13.5 [facility] Comment on above: Performed By: #### B MP, TSH #### [facility] [address] [place] [address] Dr. Reema Mireles PLT 403 103/ul Normal 150-450 [facility] Comment on above: Performed By: #### B MP, TSH #### [facility] [address] [place] [address] Dr. Reema Mireles RBC 4.37 106/ul Normal 4.20-5.40 [facility] Comment on above: Performed By: #### B MP, TSH #### [facility] [address] [place] [address] Dr. Reema Mireles WBC 6.3 103/ul Normal 4.0-11.0 [facility] Comment on above: Performed By: #### B MP, TSH #### [facility] [address] [place] [address] Dr. Reema Mireles PROF 14(COMP METB)on 022 Albumin [Mass/Vol] 4.3 g/dL Normal 3.4-5.0 [facility] Comment on above: Performed By: #### B MP, TSH #### [facility] [address] [place] [address] Dr. Reema Mireles Albumin/Globulin [Mass ratio] 1.2 {ratio} Normal [facility] Comment on above: Performed By: #### B MP, TSH #### [facility] [address] [place] [address] Dr. Reema Mireles ALP [Catalytic activity/Vol] 79 U/L Normal 46-116 [facility] Comment on above: Performed By: #### B MP, TSH #### [facility] [address] [place] [address] Dr. Reema Mireles ALT [Catalytic activity/Vol] 31 U/L Normal 14-59 [facility] Comment on above: Performed By: #### B MP, TSH #### [facility] [address] [address] [address] Reema Mireles Anion gap [Moles/Vol] 12.1 mmol/L Normal [facility] Comment on above: Performed By: #### B MP, TSH #### [facility] [address] [address] [address] Reema Mireles AST [Catalytic activity/Vol] 17 U/L Normal 15-37 [facility] Comment on above: Performed By: #### B MP, TSH #### [facility] [address] [place] [address] Dr. Reema Mireles Bilirubin [Mass/Vol] 0.4 mg/dL Normal 0.2-1.0 [facility] Comment on above: Performed By: #### B GURPREET, TSH #### [facility] [address] [place] [address] Dr. Reema Mireles Calcium [Mass/Vol] 8.9 mg/dL Normal 8.5-10.1 [facility] Comment on above: Performed By: #### B GURPREET, TSH #### [facility] [address] [place] [address] Dr. Reema Mireles Chloride [Moles/Vol] 98 mmol/L Normal 98-107 [facility] Comment on above: Performed By: #### B GURPREET, TSH #### [facility] [address] [place] [address] Dr. Reema Mireles CO2 [Moles/Vol] 27.0 mmol/L Normal 21.0-32.[address] [facility] Comment on above: Performed By: #### B GURPREET, TSH #### [facility] [address] [place] [address] Dr. Reema Mireles Creatinine [Mass/Vol] 0.65 mg/dL Normal 0.55-1.02 [facility] Comment on above: Performed By: #### B GURPREET, TSH #### [facility] [address] [place] [address] Dr. Reema Mireles EGFR-AF CITIZEN OF [place] >60 Normal >=[address] [facility] Comment on above: Performed By: #### B GURPREET, TSH #### [facility] [address] [address] [address] Reema Mireles EGFR-NON AF CITIZEN OF [place] >60 Normal >=60 [facility] Comment on above: Performed By: #### B GURPREET, TSH #### [facility] [address] [address] [address] Reema Mireles Globulin (S) [Mass/Vol] 3.5 g/dL Normal [facility] Comment on above: Performed By: #### B GURPREET, TSH #### [facility] [address] [address] [address] Reema Mireles Glucose [Mass/Vol] 106 mg/dL Normal 74-106 [facility] Comment on above: Performed By: #### B GURPREET, TSH #### [facility] [address] [place] [address] Dr. Reema Mireles Potassium [Moles/Vol] 3.1 mmol/L Critically low 3.5-5.1 [facility] Comment on above: Performed By: #### B GURPREET, TSH #### [facility] [address] [place] [address] Dr. Reema Mireles Protein [Mass/Vol] 7.8 g/dL Normal 6.4-8.2 [facility] Comment on above: Performed By: #### B GURPREET, TSH #### [facility] [address] [place] [address] Dr. Reema Mireles Sodium [Moles/Vol] 134 mmol/L Critically low 136-145 [facility] Comment on above: Performed By: #### B GURPREET, TSH #### [facility] [address] [place] [address] Dr. Reema Mireles Urea nitrogen [Mass/Vol] 6.0 mg/dL Critically low 7.0-18.0 [facility] Comment on above: Performed By: #### B GURPREET, TSH #### [facility] [address] [place] [address] Dr. Reema Mireles Urea nitrogen/Creatinine [Mass ratio] 9.2 mg/mg Normal [facility] Comment on above: Performed By: #### B GURPREET, TSH #### [facility] [address] [place] [address] Dr. Reema Mireles ACETONE SERUMon 08-11-2022 ACETONE Negative Normal NEGATIVE [facility] Comment on above: Performed By: #### B GURPREET, TSH #### [facility] [address] [place] [address] Dr. Reema Mireles CBC AUTO DIFFon 08-11-2022 BASO # 0.1 103/ul Normal 0.0-0.1 [facility] Comment on above: Performed By: #### B GURPREET, TSH #### [facility] [address] [place] [address] Dr. Reema Mireles Basophils/100 WBC (Bld) 0.5 % Normal 0.2-2.0 [facility] Comment on above: Performed By: #### B GURPREET, TSH #### [facility] [address] [place] [address] Dr. Reema Mireles EO # 0.1 103/ul Normal 0.0-0.7 [facility] Comment on above: Performed By: #### B GURPREET, TSH #### [facility] [address] [place] [address] Dr. Reema Mireles Eosinophils/100 WBC (Bld) 0.7 % Critically low 0.9-7.0 [facility] Comment on above: Performed By: #### B GURPREET, TSH #### [facility] [address] [place] [address] Dr. Reema Mireles Erythrocyte distribution width (RBC) [Ratio] 11.7 % Normal 11.0-15.0 [facility] Comment on above: Performed By: #### B GURPREET, TSH #### [facility] [address] [place] [address] Dr. Reema Mireles Hematocrit (Bld) [Volume fraction] 37.6 % Normal 36.0-48.0 [facility] Comment on above: Performed By: #### B GURPREET, TSH #### [facility] [address] [place] [address] Dr. Reema Mireles Hemoglobin (Bld) [Mass/Vol] 13.1 g/dL Normal 12.0-16.0 [facility] Comment on above: Performed By: #### B MP, TSH #### [facility] [address] [place] [address] Dr. Reema Mireles IG # 0.02 10e3/ul Normal 0.00-0.03 [facility] Comment on above: Performed By: #### B MP, TSH #### [facility] [address] [place] [address] Dr. Reema Mireles IG % 0.2 % Normal 0.0-0.5 [facility] Comment on above: Performed By: #### B MP, TSH #### [facility] [address] [place] [address] Dr. Reema Mireles LYMPH # 2.7 103/ul Normal 1.2-3.8 [facility] Comment on above: Performed By: #### B MP, TSH #### [facility] [address] [place] [address] Dr. Reema Mireles Lymphocytes/100 WBC (Bld) 28.5 % Normal 20.5-60.0 [facility] Comment on above: Performed By: #### B MP, TSH #### [facility] [address] [place] [address] Dr. Reema Mireles MANUAL DIFF REQ NO Normal [facility] Comment on above: Performed By: #### B MP, TSH #### [facility] [address] [place] [address] Dr. Reema Mireles MCH (RBC) [Entitic mass] 30.3 pg Normal 26.7-34.0 [facility] Comment on above: Performed By: #### B MP, TSH #### [facility] [address] [place] [address] Dr. Reema Mireles MCHC (RBC) [Mass/Vol] 34.8 g/dL Normal 29.9-35.2 [facility] Comment on above: Performed By: #### B MP, TSH #### [facility] [address] [place] [address] Dr. Reema Mireles MCV (RBC) [Entitic vol] 87.0 fL Normal 81.0-99.0 [facility] Comment on above: Performed By: #### B MP, TSH #### [facility] [address] [address] [address] Reema Mireles MONO # 0.8 103/ul Normal 0.3-0.8 [facility] Comment on above: Performed By: #### B MP, TSH #### [facility] [address] [place] [address] Dr. Reema Mireles Monocytes/100 WBC (Bld) 8.2 % Normal 1.7-12.0 [facility] Comment on above: Performed By: #### B MP, TSH #### [facility] [address] [place] [address] Dr. Reema Mireles NEUT # 5.9 103/ul Normal 1.4-6.5 [facility] Comment on above: Performed By: #### B MP, TSH #### [facility] [address] [place] [address] Dr. Reema Mireles Neutrophils/100 WBC (Bld) 61.9 % Normal 43.0-75.0 [facility] Comment on above: Performed By: #### B MP, TSH #### [facility] [address] [place] [address] Dr. Reema Mireles Platelet mean volume (Bld) [Entitic vol] 10.2 fL Normal 9.5-13.5 [facility] Comment on above: Performed By: #### B MP, TSH #### [facility] [address] [place] [address] Dr. Reema Mireles PLT 382 103/ul Normal 150-450 [facility] Comment on above: Performed By: #### B MP, TSH #### [facility] [address] [place] [address] Dr. Reema Mireles RBC 4.32 106/ul Normal 4.20-5.40 [facility] Comment on above: Performed By: #### B MP, TSH #### [facility] [address] [place] [address] Dr. Reema Mireles WBC 9.6 103/ul Normal 4.0-11.0 [facility] Comment on above: Performed By: #### B MP, TSH #### [facility] [address] [place] [address] Dr. Reema Mireles CRPon 08-11-2022 CRP [Mass/Vol] mg/L Normal <=1.0 [facility] Comment on above: Performed By: #### B MP, TSH #### [facility] [address] [place] [address] Dr. Reema Mireles ER URINE PROFILEon Bilirubin Ql (U) Negative Normal NEGATIVE [facility] Comment on above: Performed By: #### B MP, TSH #### [facility] [address] [place] [address] Dr. Reema Mireles Clarity (U) CLEAR Normal CLEAR [facility] Comment on above: Performed By: #### B MP, TSH #### [facility] [address] [place] [address] Dr. Reema Mireles Color (U) LT. YELLOW Normal YELLOW [facility] Comment on above: Performed By: #### B MP, TSH #### [facility] [address] [place] [address] Dr. Reema RICHARDSONJohana A micrscopic examination will be performed if indicated. Normal [facility] Comment on above: Performed By: #### B MP, TSH #### [facility] [address] [place] [address] Dr. Reema Mireles Glucose Ql (U) Negative Normal NEGATIVE [facility] Comment on above: Performed By: #### B MP, TSH #### [facility] [address] [place] [address] Dr. Reema Mireles Hemoglobin Ql (U) Negative Normal NEGATIVE [facility] Comment on above: Performed By: #### B MP, TSH #### [facility] [address] [place] [address] Dr. Reema Mireles Ketones Ql (U) Negative Normal NEGATIVE [facility] Comment on above: Performed By: #### B MP, TSH #### [facility] [address] [place] [address] Dr. Reema Mireles LEUKOCYTES Negative Normal NEGATIVE [facility] Comment on above: Performed By: #### B MP, TSH #### [facility] [address] [place] [address] Dr. Reema Mireles Nitrite Ql (U) Negative Normal NEGATIVE [facility] Comment on above: Performed By: #### B MP, TSH #### [facility] [address] [place] [address] Dr. Reema Mireles pH (U) 5.5 [pH] Normal 5-9 [facility] Comment on above: Performed By: #### B MP, TSH #### [facility] [address] [place] [address] Dr. Reema Mireles SPEC GRAVITY <=1.005 Abnormal 1.005-<=1.025 [facility] Comment on above: Performed By: #### B MP, TSH #### [facility] [address] [place] [address] Dr. Reema Mireles UA PROTEIN Negative Normal NEGATIVE/ TRACE [facility] Comment on above: Performed By: #### B GURPREET, TSH #### [facility] [address] [place] [address] Dr. Reema Mireles UR MICRO IND NOT INDICATED Normal [facility] Comment on above: Performed By: #### B MP, TSH #### [facility] [address] [place] [address] Dr. Reema Mireles Urobilinogen Qn (U) 0.2 {Renny'U}/dL Normal 0.2 - 1. 0 [facility] Comment on above: Performed By: #### B GURPREET, TSH #### [facility] [address] [place] [address] Dr. Reema Mireles LIPASEon 08-11-2022 Lipase [Catalytic activity/Vol] 71.0 U/L Critically low 73.0-393.0 [facility] Comment on above: Performed By: #### B MP, TSH #### [facility] [address] [place] [address] Dr. Reema Mireles URon 08-11-2022 , QUAL Negative Normal NEGATIVE [facility] Comment on above: Performed By: #### C VDTBH #### [facility] [address] [address] [address] Reema Mireles PROF 14(COMP METB)on 022 Albumin [Mass/Vol] 4.3 g/dL Normal 3.4-5.0 [facility] Comment on above: Performed By: #### B MP, TSH #### [facility] [address] [address] [address] Reema Mireles Albumin/Globulin [Mass ratio] 1.2 {ratio} Normal [facility] Comment on above: Performed By: #### B MP, TSH #### [facility] [address] [address] [address] Reema Mireles ALP [Catalytic activity/Vol] 70 U/L Normal 46-116 [facility] Comment on above: Performed By: #### B MP, TSH #### [facility] [address] [address] [address] Reema Mireles ALT [Catalytic activity/Vol] 16 U/L Normal 14-59 [facility] Comment on above: Performed By: #### B MP, TSH #### [facility] [address] [address] [address] Reema Mireles Anion gap [Moles/Vol] 10.5 mmol/L Normal [facility] Comment on above: Performed By: #### B MP, TSH #### [facility] [address] [address] [address] Reema Mireles AST [Catalytic activity/Vol] 8 U/L Critically low 15-37 [facility] Comment on above: Performed By: #### B MP, TSH #### [facility] [address] [address] [address] Reema Mireles Bilirubin [Mass/Vol] 0.3 mg/dL Normal 0.2-1.0 [facility] Comment on above: Performed By: #### B MP, TSH #### [facility] [address] [address] [address] Reema Mireles Calcium [Mass/Vol] 9.0 mg/dL Normal 8.5-10.1 [facility] Comment on above: Performed By: #### B MP, TSH #### [facility] [address] [address] [address] Reema Mireles Chloride [Moles/Vol] 104 mmol/L Normal 98-107 [facility] Comment on above: Performed By: #### B MP, TSH #### [facility] [address] [address] [address] Reema Mireles CO2 [Moles/Vol] 26.5 mmol/L Normal 21.0-32.[address] [facility] Comment on above: Performed By: #### B MP, TSH #### [facility] [address] [address] [address] Reema Mireles Creatinine [Mass/Vol] 0.79 mg/dL Normal 0.55-1.02 [facility] Comment on above: Performed By: #### B MP, TSH #### [facility] [address] [address] [address] Reema Mireles EGFR-AF CITIZ[place] >60 Normal >=[address] [facility] Comment on above: Performed By: #### B MP, TSH #### [facility] [address] [address] [address] Reema Mireles EGFR-NON AF CITIZEN OF [place] >60 Normal >=60 [facility] Comment on above: Performed By: #### B MP, TSH #### [facility] [address] [place] [address] Dr. Reema Mireles Globulin (S) [Mass/Vol] 3.5 g/dL Normal [facility] Comment on above: Performed By: #### B MP, TSH #### [facility] [address] [address] [address] Reema Mireles Glucose [Mass/Vol] 106 mg/dL Normal 74-106 [facility] Comment on above: Performed By: #### B MP, TSH #### [facility] [address] [address] [address] Reema Mireles Potassium [Moles/Vol] 3.0 mmol/L Critically low 3.5-5.1 [facility] Comment on above: Performed By: #### B MP, TSH #### [facility] [address] [place] [address] Dr. Reema Mireles Protein [Mass/Vol] 7.8 g/dL Normal 6.4-8.2 [facility] Comment on above: Performed By: #### B MP, TSH #### [facility] [address] [place] [address] Dr. Reema Mireles Sodium [Moles/Vol] 138 mmol/L Normal 136-145 [facility] Comment on above: Performed By: #### B MP, TSH #### [facility] [address] [place] [address] Dr. Reema Mireles Urea nitrogen [Mass/Vol] 8.0 mg/dL Normal 7.0-18.0 [facility] Comment on above: Performed By: #### B MP, TSH #### [facility] [address] [place] [address] Dr. Reema Mireles Urea nitrogen/Creatinine [Mass ratio] 10.1 mg/mg Normal [facility] Comment on above: Performed By: #### B MP, TSH #### [facility] [address] [place] [address] Dr. Reema Mireles PROTIMEon 08-11-2022 INR Coag (PPP) [Relative time] 1.00 {INR} Normal [facility] Comment on above: Performed By: #### P T, PTT #### [facility] [address] [place] [address] Dr. Reema Mireles INR GUIDELINES SEE BELOW Normal [facility] Comment on above: Result Comment: FELICIANO RED INR: 2.0 - 3.0 CONDITIONS NOT LISTED BELOW 2.5 - 3.5 FOR PROSTHETIC HEART VALVE REPLACEMENT 2.5 - 3.5 RECURRENT THROMBOSIS Performed By: #### P T, PTT #### [facility] [address] [place] [address] Dr. Reema Mireles PT Coag (PPP) [Time] 10.8 s Normal 9.0-11.6 [facility] Comment on above: Performed By: #### P T, PTT #### [facility] [address] [place], [place] [id number] Dr. Reema Mireles PTTon 08-11-2022 aPTT Coag (Bld) [Time] 30.8 s Normal 22.3-36.2 [facility] Comment on above: Performed By: #### P T, PTT #### [facility] [address] [place] [address] Dr. Reema Mireles SED [facility] SED RATE 10 mm/hr Normal <=20 [facility] Comment on above: Performed By: #### B MP, TSH #### [facility] [address] [place] [address] Dr. Reema Mireles TSHon 08-11-2022 TSH 3.313 uIU/mL Normal 0.358-3.740 [facility] Comment on above: Performed By: #### B MP, TSH #### [facility] [address] [place] [address] Dr. Reema Mireles Discharge Instructionson Discharge Instructions [id number] #[id number]:127 Normal [facility] Comment on above: Other Comment: wrong patient STOOL CULTUREon 04-20-2022 Campylobacter Culture Final report Normal [facility] Comment on above: Performed By: #### B MP, TSH #### [facility] [address] [place] [address] Dr. Reema Mireles E coli Shiga Toxin EIA Negative Normal Negative [facility] Comment on above: Performed By: #### B MP, TSH #### [facility] [address] [place] [address] Dr. Reema Mireles Result 1 Comment Normal [facility] Comment on above: Result Comment: No S almonella or Shigella recovered. Performed By: #### B MP, TSH #### [facility] [address] [place] [address] Dr. Reema Mireles Result Comment: No C ampylobacter species isolated. Salmonella/Shigella Screen Final report Normal [facility] Comment on above: Performed By: #### B MP, TSH #### [facility] [address] [place] [address] Dr. Reema Mireles Coding Summary.on 04-14-2022 Coding Summary. CD:[id number] Gh0bWw+PGhlYWQ+PE1FV UBeQ29ltQEydG3BH0zKA K2FJCGYRWVPIJ8GMP9ur WI7ZPliL8CcnnBi JvxlmOHcPT86PLv2AZN9 xEshRVbtwI3vsSIjE6c3 XxYhFI11jC74WWmrKYAu MgV4GgMnpwtmcRBn K2jkKePbdVMoNfn+PHRh YmxlIHdpZHRoPScxMDAl LzCkgWjoTS1gKx8kBQUz LWNvbGxhcHNlOiBj w6ynNNEkFAujJT0vbAaf H9BjrHH9LWHtg1d0Lr96 dHI+UYRmRRK7fBeqBBsw m953VkMds6vmALS5 lFUsOFdkYTL9E89bp5E8 IGZuYAQsDZB0zGQ5uA8f fLwkpafmW3QcmNYqSsG7 GTV1sBWcoJ2zwFlg lykvxJ0cUms+A46SPT1B RAOBDD7WAuj4E9AmPwns dHI+DJ85ISNdZH76vFQp kSNej0fnbUs7HfIg GVAoPYI5pCllTGtnx9Dm GAPvJ22jiZDiw4G0EKXb jMddlDCyGcAqdTN2yY0o DIhlcajsf8hidplq Yqjli2upgl21uZ47X70y BOdhRXEsHXH0PZDqQKJc hQfbqp7gqB1yKu1+IDxj w6smx4zmvZt1AySg CJFnsqJaeOcdQPC4o0Nc Fr07O9ZtzUtsy5HjVng2 ds37gVIbr8D9iZS8WImh RQFehB1cNZvsTtF3 YSXePpOahQ15fQGgZWra Gr4mcToliPipRY2sJDJr zfeeVDLtwP3iGYZpfUBm aMrmNI4kQSFlvfac l209HeKoXCO1APGnaQSn D9ScbJ6vIlAeJCSwGSFc E3FkwUUgBTyrX165TQiy CoX1LSDgcnPcG0No BGSjdQmnVoY6o4O9Kg7T g8JovdlwWBM2VMmhIAA2 OuO4PdZoDyO7S3UzLlc0 YNMtfMlzXR5vG4Lb OLBlrnxbnvlwbST4TMPl MUFjlI29jYOhJSnrEv0h e9A6p073STIkNUHbmO69 Ad8dmRecLAAriMHO dW9xlwged7tazkieLoFq SFYcWKn5QFc9RLWpqKlt KiDgLPI3ZrZ9ILN4oPYm aP2plQtxhbrgtI5n Oyc+H27sdC3gSIT6TRV1 zipsXCIeasPsZD32GS07 M3FvMoggxPJonCD+PGRp vnSniZtxPS0aHyZy q6zdv3AdRYchZ8WsXJFv SZinEyy4MYSpHOB2oOP7 aJ7jIEXgSZuej7Q3mMY7 J7DxnzBecv1rr0cn FRHfFRrjN09mtEJyq4Q8 DLQqmJK2ZTCnuZiiFlAu hM12Lqh+EBSmtXnmd7Uv Tsiod0vww2itmIa9 IjMwJSIgdmFsaWduPSJ0 g3PiSl11N32fKObqSUUq HBEyNZCzIQUdnUapzh9e dF4iZm5+PGNvbCB3 oTP2rT3vFGIhIxM4WWda X062VmEpcNCuScvpr1dx g8vugAf5BdZaQDGmviTy hYygWLH5b4SjHw29 P57vZMamSNGmTICxQTNh GEGydJlujp6sdK7rCg6+ IL4ta4upbm15zZ78nOS+ BWHtQDJ5tLpxNOrs ZKQqiC1nMZjiUxB8EWVt UmLwyX16pBLpEVpiXq7r oPnkeMjfHT1uLWOoeovs f588FhIfx6kwHXJj vZTaATusAPR2M85kq8H0 YGGfNAApDEG3eHN3aU2x bGlnbjogbGVmdDsgdmVy iMwyLYcwQDrhT837 IHRvcDsnPlBhdGllbnQg CuJyBYr6H3HgKzf0GUJo zEixAN5thMUyJJcjWh2y yZusuArjZI9iORYr wkymc696FpZda2ieYBNb oVIsRZucZSQ9P33ax2K5 HYJwFGEmOUP2kZG6gD3h bGlnbjogbGVmdDsg ebVydVsyZIqbYTwmP580 IHRvcDsnPkJpcnRoIERh yDX2UA72TL69xCRpc3F6 uDX1M2HbLPLrnizv hcssgKQ8KSQtNPDwoW98 Yq6iaIjuUc5fRXGmIJP3 VUIizPWhN5BbjB0bBlVh DDQdUZRmL7ByrGRk DWtnI842CMfnLyP9ATKh pgEyM3GzMCPydLobFnA0 f2N6Gv2IN2S4BY33RW46 pKWys6D1rAA9S0Xf WDSugszsxxzxzYL7JPHs MFEwrF62Lf2sgKrhMp3w VVCoUGI9HVTbcXLoZ2Ll lC3uWiOgQLCbWXPv E4QrtRIaSTxpV553EVzm TmK7YANdbwWtJ0IqMDYr vGcsVqS6h8X1Uk0FRFo5 LJ05AQ20lZEdk8P3 pVA1L0NbZTQxsddhbvuo mEN5GNXyTIGjoU72Tt3i mMnsVo9iFONsOEL4IZPx jDOoB1MkqI7gVaOl RYZyTMIlB3OlnAHoCKjb A722JEhbUlM2GSDbiwUb Y7ZdVRDrpZsdYdC7m6Y0 Gh9FDAKlWR01EXL1 rDA8BR45CX69Q7UnBnou dGFibGU+PHRhYmxlIHdp ZHRoPScxMDAlJyBzdHls YV6nEr7eJZKtCGJp gOdlfKWbKhPjc0ouKPTl WIgkYX1diXrfH2QvcZQ3 PDWdd4a7Sk01V95uK1Qe dXA+IXJamXN5fZG4 yA9gLjImCxL2XHrgW694 WiDyfFShYcpsy7ltc2jz gCo8JgG2XXKaxtZxvDhn JDQ9e8PaXw39S93s IHdpZHRoPSIxNSUiIHZh bKfrgo5chK3sBl7+PGNv wQJ0zXY1kJ8uBzOnXkD7 GIhyY022LeGtwWQf Gzjrx8fsv8vcoIv4KzJt GOIfvbBftJlsUKL7s1Kn Mi76I6KweKuka2EqCrb4 ep66hBVdr1G2vLN0 Q4YpMLJdiiqkzEMkzMbl CC1lPKIsrfmxKDUiuC3i KPYnU3y8KvWgNyR1JUmy F9SkfcA8FDYydZWl BAiyZFL6Y89lj6C2QCLi ZODcVEX5gDY4lQ1eoCae bjogbGVmdDsgdmVydGlj MNznDSqbK152KQVq nIbkVPEjoE0mKXDbiWHa bNxbQI9qPNBhejtnYhyC WCJTF32IQ0pCNDCEFNDT RNW1C6DjLjz9YYDr jBtjDE5wwDMkXZjqKi8o sDuvmBuuBU0aPFEnmvph NPPkuV5gJFYcaTKmxIlz KS0sIPLrtxsgs374 HjNdCUD3IHZsxBPgO4Lz oF3gJqDgVAPxPQVmG0Fs hXBxECfgJ576YVkwIlB9 KCUiyxPgC8DlSJSx cVxgFtP1j6B4Sq7bIu6c HN5pPAVbAB12SO45pUWe b3G2aID6X5HyELVhfvqh wijnwLF9CCLeVPMj pF24qDXmHStvVu1cb0G7 z909WVXuUZNvdP79Sh1h sTtcGCDewCAYiF1jifpa t9odivmhMrOwPCMz DCu5ZAs8QUXgmNvyRdGg LQC3WtJ5EDZ1aGOyxT4u nQtjwvwuzR3bVcz+MjAg PDDgerN0Z7KwOsa1 AHFxtCmdVU3edKAyHHgw Ci0gmAcakDcuML0wKCGs hqqjTLDlqF9fEBPsaMXc fRklTA9cGWDkemfr l272MqKjKPX1LXWwhQFv C3OumG4iPiAfGUTvISIy O3DptRQmEZtyP879JHoi OkI1LCDlptHbX2Go JARwlLyjZaI2l0M5Uj2O LH7hgWV0X2VkJzs0DWHl iXhfIP6xrHElAZekVr3b oRrgfMggMG1yDPYr pvhqBDOsaL9vNETctAZp bBqkDU7hRKXcyoqxt284 VtUxQQS1GSJggXTjC1Fo gU4sOcCbJMJbNJDa A2WbvPQgFIujU620IBoc AlS2RYRiswEuH6OtFZBh rKbyOqC8q9H3Uz2TqAUk Q2SdY1b8K1VmIaip dHI+TU33QTZiPP47uRVp aCGim4kssAx7LcFyCYOu FHU7xGytGYneh8HzEUVc J91yqXElx3I1RIUr dDmwaIDrBfMaiGS4pM8f TIuuezoxw8wvdisvDobv x7envh61vL90S31kCSij ZHRoPSIzMCUiIHZh qMajdh6cnP5sMf3+PGNv cHZ9nEF0rT1nUhEvLlZ3 RBjdY926AxVpfMWaLehc u6iks7twlVn1BeSm RWOwphApgOlnLGF4m3Av Jv09U33jPZzxGKXuAXVs WYPtIWJffGwzdi1jbU5k Ii8+WR4jt9nvml24 eH71gNW+EFRpPMF2qRyf JDgaZQMxhV1eNXsmXsZ0 GFUjDuWmwU20dBVmWUor Mn2inAjxyEqkCR4x OLJnznazq223NmSfk3lc XEWskUHhNJcgJRQ7L08w o3X2MGRpTUScKBA2nZT1 kU6hyIvrnrgchTVa dDsgdmVydGljYWwtYWxp P277BQVxoBseIwTtzWHy X3cunfIJCF1jUmodhIB+ LHIsVRB8mXwbIUxw FKVfdG9bCACsT4p8UqXi WgV3AUjkZ0SaryA6PRUj dHPkJRNuuGORqP5gueqi b9ckezejXeNlKFOu QYv8NMv8TRXkqXvvDyFk SHW3LjA1RNV5tSTkfX2c yLzwxgtykA4jSfm+RklO OjwvdGQ+PHRkIHN0 sGkqPMhtXHVfpB2eRTVn Y6j1HaFrLfN5XFnfE5Ss pzC5HQMbiPGyEUUwxWDC gG0jqccrj8botxjk PaJpRKXwRKp6XYk5SJCz gLpbRrGqSWA7NmW4HRW0 hYAioS3ctOlacvucsL5x Oyc+TVJOOjwvdGQ+ PSFiLWK9pIpoWZcbNGLg mX6lXFIdZ1m6WfKnXpN4 FRjdQ2RndiG5HAFqlSBi ZDVodFIMdN9gdlbd w4dtaqogCrIsRJDpTYr4 XCr7HKRvaFrtZyHdEBQ6 DaC3URC8kMKncA9ohSpd pocrwO6oVey+UGF5 CVI3OH82WE98I0FoXjon dGFibGU+PHRhYmxlIHdp ZHRoPScxMDAlJyBzdHls GA6oWz0iXPWuUCZw bGxh (more content not included)... Normal [facility] CBC AUTO DIFFon 04-13-2022 BASO # 0.1 103/ul Normal 0.0-0.1 [facility] Comment on above: Performed By: #### C VDTBH #### [facility] [address] [place] [address] Dr. Reema Mireles Basophils/100 WBC (Bld) 0.6 % Normal 0.2-2.0 [facility] Comment on above: Performed By: #### C VDTBH #### [facility] [address] [place] [address] Dr. Reema Mireles EO # 0.0 103/ul Normal 0.0-0.7 [facility] Comment on above: Performed By: #### C VDTBH #### [facility] [address] [place] [address] Dr. Reema Mireles Eosinophils/100 WBC (Bld) 0.2 % Critically low 0.9-7.0 [facility] Comment on above: Performed By: #### C VDTBH #### [facility] [address] [place] [address] Dr. Reema Mireles Erythrocyte distribution width (RBC) [Ratio] 11.4 % Normal 11.0-15.0 [facility] Comment on above: Performed By: #### C VDTBH #### [facility] [address] [place] [address] Dr. Reema Mireles Hematocrit (Bld) [Volume fraction] 38.3 % Normal 36.0-48.0 [facility] Comment on above: Performed By: #### C VDTBH #### [facility] [address] [address] [address] Reema Mireles Hemoglobin (Bld) [Mass/Vol] 13.4 g/dL Normal 12.0-16.0 [facility] Comment on above: Performed By: #### C VDTBH #### [facility] [address] [place] [address] Dr. Reema Mireles IG # 0.01 10e3/ul Normal 0.00-0.03 [facility] Comment on above: Performed By: #### C VDTBH #### [facility] [address] [place] [address] Dr. Reema Mireles IG % 0.1 % Normal 0.0-0.5 [facility] Comment on above: Performed By: #### C VDTBH #### [facility] [address] [place] [address] Dr. Reema Mireles LYMPH # 1.8 103/ul Normal 1.2-3.8 [facility] Comment on above: Performed By: #### C VDTBH #### [facility] [address] [place] [address] Dr. Reema Mireles Lymphocytes/100 WBC (Bld) 22.2 % Normal 20.5-60.0 [facility] Comment on above: Performed By: #### C VDTBH #### [facility] [address] [place] [address] Dr. Reema Mireles MANUAL DIFF REQ NO Normal [facility] Comment on above: Performed By: #### C VDTBH #### [facility] [address] [place] [address] Dr. Reema Mireles MCH (RBC) [Entitic mass] 30.6 pg Normal 26.7-34.0 [facility] Comment on above: Performed By: #### C VDTBH #### [facility] [address] [place] [address] Dr. Reema Mireles MCHC (RBC) [Mass/Vol] 35.0 g/dL Normal 29.9-35.2 [facility] Comment on above: Performed By: #### C VDTBH #### [facility] [address] [place] [address] Dr. Reema Mireles MCV (RBC) [Entitic vol] 87.4 fL Normal 81.0-99.0 [facility] Comment on above: Performed By: #### C VDTBH #### [facility] [address] [place] [address] Dr. Reema Mireles MONO # 0.7 103/ul Normal 0.3-0.8 [facility] Comment on above: Performed By: #### C VDTBH #### [facility] [address] [place] [address] Dr. Reema Mireles Monocytes/100 WBC (Bld) 8.2 % Normal 1.7-12.0 [facility] Comment on above: Performed By: #### C VDTBH #### [facility] [address] [place] [address] Dr. Reema Mireles NEUT # 5.5 103/ul Normal 1.4-6.5 [facility] Comment on above: Performed By: #### C VDTB #### [facility] [address] [place] [address] Dr. Reema Mireles Neutrophils/100 WBC (Bld) 68.7 % Normal 43.0-75.0 [facility] Comment on above: Performed By: #### C VDTBH #### [facility] [address] [place] [address] Dr. Reema Mireles Platelet mean volume (Bld) [Entitic vol] 10.1 fL Normal 9.5-13.5 [facility] Comment on above: Performed By: #### C VDTBH #### [facility] [address] [place] [address] Dr. Reema Mireles PLT 404 103/ul Normal 150-450 [facility] Comment on above: Performed By: #### C VDTBH #### [facility] [address] [place] [address] Dr. Reema Mireles RBC 4.38 106/ul Normal 4.20-5.40 [facility] Comment on above: Performed By: #### C VDTBH #### [facility] [address] [place], [place] [address] Dr. Reema Mireles WBC 8.0 103/ul Normal 4.0-11.0 [facility] Comment on above: Performed By: #### C VDTBH #### [facility] [address] [place], [place] [address] HEAD WO CONon [...] AURELIA CARLOS Date: 2022-04-13 16:29 Normal [facility] Discharge Instructionson Discharge Instructions [id number] #[id number]:127 Normal [facility] ED Note-Physicianon 04-13-20 ED Note-Physician Basic Information Time Seen: Lata Hardy M.D. 04/12/2022 19:56 Chief Complaint Pt. presents to the ed with c/o headache and vertigo since thursday. Pt. was seen at [facility] and started on prednisone. pt. stopped taking [...] The patient states she was seen at [facility] discharged home. She went to [...] neurological deficit. She has been seen at [facility] and started on prednisone. Possible [...] ADRYAN MARIE In 3 days 04/15/[address] [place] [id number] (1) Additional Instructions: Return to the [...] Diagnostic Results No qualifying data available. Normal [facility] Comment on above: Result Comment: Elec tronically Signed By: Antony Villa, Lata Baxter\.br\Date and Time Signed: 04/13/22 04:56 EDT ER URINE PROFILEon 2 Bilirubin Ql (U) Negative Normal NEGATIVE [facility] Comment on above: Performed By: #### P REGU, ERUR #### [facility] [address] [place] [address] Dr. Reema Mireles Clarity (U) CLEAR Normal CLEAR [facility] Comment on above: Performed By: #### P REGU, ERUR #### [facility] [address] [place] [address] Dr. Reema Mireles Color (U) LT. YELLOW Normal YELLOW [facility] Comment on above: Performed By: #### P REGU, ERUR #### [facility] [address] [address] [address] Reema ELIZALDE A micrscopic examination will be performed if indicated. Normal [facility] Comment on above: Performed By: #### P REGU, ERUR #### [facility] [address] [place] [address] Dr. Reema Mireles Glucose Ql (U) Negative Normal NEGATIVE [facility] Comment on above: Performed By: #### P REGU, ERUR #### [facility] [address] [place] [address] Dr. Reema Mireles Hemoglobin Ql (U) Negative Normal NEGATIVE [facility] Comment on above: Performed By: #### P REGU, ERUR #### [facility] [address] [place] [address] Dr. Reema Mireles Ketones Ql (U) Negative Normal NEGATIVE [facility] Comment on above: Performed By: #### P REGU, ERUR #### [facility] [address] [place] [address] Dr. Reema Mireles LEUKOCYTES Negative Normal NEGATIVE [facility] Comment on above: Performed By: #### P REGU, ERUR #### [facility] [address] [place] [address] Dr. Reema Mireles Nitrite Ql (U) Negative Normal NEGATIVE [facility] Comment on above: Performed By: #### P REGU, ERUR #### [facility] [address] [place] [address] Dr. Reema Mireles pH (U) 6.5 [pH] Normal 5-9 [facility] Comment on above: Performed By: #### P REGU, ERUR #### [facility] [address] [place] [address] Dr. Reema Mireles SPEC GRAVITY 1.005 Normal 1.005-<=1.025 [facility] Comment on above: Performed By: #### P REGU, ERUR #### [facility] [address] [place] [address] Dr. Reema Mireles UA PROTEIN Negative Normal NEGATIVE/ TRACE [facility] Comment on above: Performed By: #### P REGU, ERUR #### [facility] [address] [place] [address] Dr. Reema Mireles UR MICRO IND NOT INDICATED Normal [facility] Comment on above: Performed By: #### P REGU, ERUR #### [facility] [address] [place] [address] Dr. Reema Mireles Urobilinogen Qn (U) 0.2 {Renny'U}/dL Normal 0.2 - 1. 0 [facility] Comment on above: Performed By: #### P REGU, ERUR #### [facility] [address] [address] [address] Reema Mireles URon 04-13-2022 , QUAL Negative Normal NEGATIVE [facility] Comment on above: Performed By: #### P REGU, ERUR #### [facility] [address] [address] [address] Reema Mireles PROF CHEM 8 (BAS METB)on Anion gap [Moles/Vol] 14.0 mmol/L Normal [facility] Comment on above: Performed By: #### B MP, TSH #### [facility] [address] [address] [address] Reema Mireles Calcium [Mass/Vol] 9.2 mg/dL Normal 8.5-10.1 [facility] Comment on above: Performed By: #### B MP, TSH #### [facility] [address] [address] [address] Reema Mireles Chloride [Moles/Vol] 102 mmol/L Normal 98-107 [facility] Comment on above: Performed By: #### B MP, TSH #### [facility] [address] [address] [address] Reema Mireles CO2 [Moles/Vol] 26.3 mmol/L Normal 21.0-32.0 [facility] Comment on above: Performed By: #### B MP, TSH #### [facility] [address] [address] [address] Reema Mireles Creatinine [Mass/Vol] 0.65 mg/dL Normal 0.55-1.02 [facility] Comment on above: Performed By: #### B MP, TSH #### [facility] [address] [address] [address] Reema Mireles EGFR-AF CITIZ[place] >60 Normal >=60 [facility] Comment on above: Performed By: #### B MP, TSH #### [facility] [address] [place] [address] Dr. Reema Mireles EGFR-NON AF CITIZEN OF [place] >60 Normal >=60 [facility] Comment on above: Performed By: #### B MP, TSH #### [facility] [address] [address] [address] Reema Mireles Glucose [Mass/Vol] 92 mg/dL Normal 74-106 [facility] Comment on above: Performed By: #### B MP, TSH #### [facility] [address] [address] [address] Reema Mireles Potassium [Moles/Vol] 3.3 mmol/L Critically low 3.5-5.1 [facility] Comment on above: Performed By: #### B MP, TSH #### [facility] [address] [address] [address] Reema Mireles Sodium [Moles/Vol] 139 mmol/L Normal 136-145 [facility] Comment on above: Performed By: #### B MP, TSH #### [facility] [address] [address] [address] Reema Mireles Urea nitrogen [Mass/Vol] 8.0 mg/dL Normal 7.0-18.0 [facility] Comment on above: Performed By: #### B MP, TSH #### [facility] [address] [address] [address] Reema Mireles Urea nitrogen/Creatinine [Mass ratio] 12.3 mg/mg Normal [facility] Comment on above: Performed By: #### B MP, TSH #### [facility] [address] [address] [address] Reema Mireles TSHon 04-13-2022 TSH 1.293 uIU/mL Normal 0.358-3.740 [facility] Comment on above: Performed By: #### B MP, TSH #### [facility] [address] [address] [address] Reema Mireles Consent for Treatmenton 03-28 Consent for Treatment [id number] Normal [facility] ED Clinical Summaryon 2021 ED Clinical Summary [address] [address] ED Clinical Summary Person Information Name: JUANPABLO CHAPARRO [facility] Age: 21 Years : 2000 Sex: Female Language: Pashto PCP: ADRYAN AMRIE MD Marital Status: Single Phone: [phone] Visit Id: Visit Reason: Vertigo - recurrent; [...] 21:07:38 04/12/2022 21:07:38 04/12/2022 21:07:38 ADDRESS: [address] [place] [phone] PHYS DOC NOTES: MEDICAL INFORMATION: Prescriptions Given: PATIENT EDUCATION INFORMATION: Instructions: General Headache Without Cause; Vertigo Follow up: With: Address: When: ADRYAN AMINJAILENE [address] [place], [place] [id number] [employer] (1) In 3 days 04/15/2022 Comments: Return to the emergency room if her headache gets worse, vertigo becomes persistent or any new symptoms DIAGNOSIS: 1:Vertigo; 2:Headache Normal [facility] [facility] Patient Education Noteon 04-12-2022 ED Patient [...] you feel dizzy. General instructions ? Take iapw-yon-rsgtnfj and prescription medicines only as told by [...] 06/24/2006 Document Revised: 08/08/2019 Document Reviewed: 08/08/2019 [employer] Patient Education ? 2020 [employer] Neurology General Headache Without Cause A [...] with your condition: Managing pain ? Take ohcs-dus-jpxncml and prescription medicines only as told by [...] of beer (more content not included)... Normal [facility] Patient Summaryon 022 ED Patient Summary [place] [id number] Patient Discharge Instructions Person Information Name: JUANPABLO CHAPARRO Age: 21 Years Arrival Date: 04/12/2022 19:22:40 Discharge Diagnosis: 1:Vertigo; 2:Headache Primary Care Physician: ADRYAN MARIE MD Provider Information Primary Provider: Lata Hardy M.D. Advanced Fire Prevention Engineer:None The exam and treatment you received in the Emergency Department were for an urgent problem and are not intended as complete care. It is important that you follow up with a doctor, nurse practitioner, or physician?s community program assistant for ongoing care. If your symptoms [...] Follow-up Instructions: With: Address: When: ADRYAN MARIE [address] [place] [address] [employer] (1) In 3 days 04/15/2022 Comments: Return [...] opioids can be used to help relieve zujpxvuq-yv-ddtzkj pain and are often prescribed following a [...] addiction, tel (more content not included)... Normal [facility] CBC AUTO DIFFon 04-09-2022 BASO # 0.1 103/ul Normal 0.0-0.1 [facility] Comment on above: Performed By: #### B MP, TSH #### [facility] [address] [address] [address] Reema Mireles Basophils/100 WBC (Bld) 0.5 % Normal 0.2-2.0 [facility] Comment on above: Performed By: #### B MP, TSH #### [facility] [address] [place] [address] Dr. Reema Mirlees EO # 0.1 103/ul Normal 0.0-0.7 [facility] Comment on above: Performed By: #### B MP, TSH #### [facility] [address] [place] [address] Dr. Reema Mireles Eosinophils/100 WBC (Bld) 1.0 % Normal 0.9-7.0 [facility] Comment on above: Performed By: #### B MP, TSH #### [facility] [address] [place] [address] Dr. Reema Mireles Erythrocyte distribution width (RBC) [Ratio] 11.7 % Normal 11.0-15.0 [facility] Comment on above: Performed By: #### B MP, TSH #### [facility] [address] [place] [address] Dr. Reema Mireles Hematocrit (Bld) [Volume fraction] 37.2 % Normal 36.0-48.0 [facility] Comment on above: Performed By: #### B MP, TSH #### [facility] [address] [place] [address] Dr. Reema Mireles Hemoglobin (Bld) [Mass/Vol] 12.8 g/dL Normal 12.0-16.0 [facility] Comment on above: Performed By: #### B MP, TSH #### [facility] [address] [place] [address] Dr. Reema Mireles IG # 0.02 10e3/ul Normal 0.00-0.03 [facility] Comment on above: Performed By: #### B MP, TSH #### [facility] [address] [place] [address] Dr. Reema Mireles IG % 0.2 % Normal 0.0-0.5 [facility] Comment on above: Performed By: #### B MP, TSH #### [facility] [address] [place] [address] Dr. Reema Mireles LYMPH # 1.8 103/ul Normal 1.2-3.8 [facility] Comment on above: Performed By: #### B MP, TSH #### [facility] [address] [place] [address] Dr. Reema Mireles Lymphocytes/100 WBC (Bld) 19.0 % Critically low 20.5-60.0 [facility] Comment on above: Performed By: #### B MP, TSH #### [facility] [address] [place] [address] Dr. Reema Mireles MANUAL DIFF REQ NO Normal [facility] Comment on above: Performed By: #### B MP, TSH #### [facility] [address] [place] [address] Dr. Reema Mireles MCH (RBC) [Entitic mass] 30.4 pg Normal 26.7-34.0 [facility] Comment on above: Performed By: #### B MP, TSH #### [facility] [address] [place] [address] Dr. Reema Mireles MCHC (RBC) [Mass/Vol] 34.4 g/dL Normal 29.9-35.2 [facility] Comment on above: Performed By: #### B MP, TSH #### [facility] [address] [place] [address] Dr. Reema Mireles MCV (RBC) [Entitic vol] 88.4 fL Normal 81.0-99.0 [facility] Comment on above: Performed By: #### B MP, TSH #### [facility] [address] [place] [address] Dr. Reema Mireles MONO # 0.7 103/ul Normal 0.3-0.8 [facility] Comment on above: Performed By: #### B MP, TSH #### [facility] [address] [place] [address] Dr. Reema Mireles Monocytes/100 WBC (Bld) 6.8 % Normal 1.7-12.0 [facility] Comment on above: Performed By: #### B MP, TSH #### [facility] [address] [place] [address] Dr. Reema Mireles NEUT # 7.0 103/ul Critically high 1.4-6.5 [facility] Comment on above: Performed By: #### B MP, TSH #### [facility] [address] [address] [address] Reema Mireles Neutrophils/100 WBC (Bld) 72.5 % Normal 43.0-75.0 [facility] Comment on above: Performed By: #### B MP, TSH #### [facility] [address] [place] [address] [address] Reema Mireles Platelet mean volume (Bld) [Entitic vol] 10.3 fL Normal 9.5-13.5 [facility] Comment on above: Performed By: #### B MP, TSH #### [facility] [address] [address] [address] Reema Mireles PLT 358 103/ul Normal 150-450 [facility] Comment on above: Performed By: #### B GURPREET, TSH #### [facility] [address] [place] [address] Dr. Reema Mireles RBC 4.21 106/ul Normal 4.20-5.40 [facility] Comment on above: Performed By: #### B GURPREET, TSH #### [facility] [address] [address] [address] Reema Mireles WBC 9.7 103/ul Normal 4.0-11.0 [facility] Comment on above: Performed By: #### B MP, TSH #### [facility] [address] [address] [address] Reema Mireles CULTURE BLOODon 04-09-2022 Microscopic examination of blood, culture Culture Observations: NO GROWTH AT 5 DAYS. Normal [facility] Comment on above: Performed By: #### B MP, TSH #### [facility] [address] [address] [address] Reema Mireles ER URINE PROFILEon 2 Bilirubin Ql (U) Negative Normal NEGATIVE [facility] Comment on above: Performed By: #### B MP, TSH #### [facility] [address] [place] [address] [address] Reema Mireles Clarity (U) CLEAR Normal CLEAR [facility] Comment on above: Performed By: #### B MP, TSH #### [facility] [address] [place] [address] Dr. Reema Mireles Color (U) LT. YELLOW Normal YELLOW [facility] Comment on above: Performed By: #### B MP, TSH #### [facility] [address] [place] [address] Dr. Reema ELIZALDE A micrscopic examination will be performed if indicated. Normal [facility] Comment on above: Performed By: #### B MP, TSH #### [facility] [address] [place] [address] Dr. Reema Mireles Glucose Ql (U) Negative Normal NEGATIVE [facility] Comment on above: Performed By: #### B MP, TSH #### [facility] [address] [place] [address] Dr. Reema Mireles Hemoglobin Ql (U) TRACE-INTACT Abnormal NEGATIVE [facility] Comment on above: Performed By: #### B MP, TSH #### [facility] [address] [place] [address] Dr. Reema Mireles Ketones Ql (U) Negative Normal NEGATIVE [facility] Comment on above: Performed By: #### B MP, TSH #### [facility] [address] [place] [address] Dr. Reema Mireles LEUKOCYTES Negative Normal NEGATIVE [facility] Comment on above: Performed By: #### B MP, TSH #### [facility] [address] [place] [address] Dr. Reema Mireles Nitrite Ql (U) Negative Normal NEGATIVE [facility] Comment on above: Performed By: #### B MP, TSH #### [facility] [address] [place] [address] Dr. Reema Mireles pH (U) 5.5 [pH] Normal 5-9 [facility] Comment on above: Performed By: #### B MP, TSH #### [facility] [address] [place] [address] Dr. Reema Mireles SPEC GRAVITY <=1.005 Abnormal 1.005-<=1.025 [facility] Comment on above: Performed By: #### B MP, TSH #### [facility] [address] [address] [address] Reema Mireles UA PROTEIN Negative Normal NEGATIVE/ TRACE [facility] Comment on above: Performed By: #### B MP, TSH #### [facility] [address] [place] [address] [address] Reema Mireles UR MICRO IND INDICATED Normal [facility] Comment on above: Performed By: #### B MP, TSH #### [facility] [address] [place] [address] Dr. Reema Mireles Urobilinogen Qn (U) 0.2 {Renny'U}/dL Normal 0.2 - 1. 0 [facility] Comment on above: Performed By: #### B MP, TSH #### [facility] [address] [place] [address] Dr. Reema Mireles LACTATE/LACTIC ACIDon 2021 Lactate [Moles/Vol] 2.2 mmol/L Critically high 0.4-1.9 [facility] Comment on above: Performed By: #### B MP, TSH #### [facility] [address] [place] [address] Dr. Reema Mireles URon 04-09-2022 , QUAL Negative Normal NEGATIVE [facility] Comment on above: Performed By: #### B MP, TSH #### [facility] [address] [place] [address] Dr. Reema Mireles PROF 14(COMP METB)on 022 Albumin [Mass/Vol] 4.5 g/dL Normal 3.4-5.0 [facility] Comment on above: Performed By: #### C MP #### [facility] [address] [place] [address] Dr. Reema Mireles Albumin/Globulin [Mass ratio] 1.3 {ratio} Normal [facility] Comment on above: Performed By: #### C MP #### [facility] [address] [address] [address] Reema Mireles ALP [Catalytic activity/Vol] 83 U/L Normal 46-116 [facility] Comment on above: Performed By: #### C MP #### [facility] [address] [address] [address] Reema Mireles ALT [Catalytic activity/Vol] 26 U/L Normal 14-59 [facility] Comment on above: Performed By: #### C MP #### [facility] [address] [address] [address] Reema Mireles Anion gap [Moles/Vol] 14.9 mmol/L Normal [facility] Comment on above: Performed By: #### C MP #### [facility] [address] [address] [address] Reema Mireles AST [Catalytic activity/Vol] 12 U/L Critically low 15-37 [facility] Comment on above: Performed By: #### C MP #### [facility] [address] [address] [address] Reema Mireles Bilirubin [Mass/Vol] 0.3 mg/dL Normal 0.2-1.0 [facility] Comment on above: Performed By: #### C MP #### [facility] [address] [address] [address] Reema Mireles Calcium [Mass/Vol] 9.6 mg/dL Normal 8.5-10.1 [facility] Comment on above: Performed By: #### C MP #### [facility] [address] [address] [address] Reema Mireles Chloride [Moles/Vol] 103 mmol/L Normal 98-107 [facility] Comment on above: Performed By: #### C MP #### [facility] [address] [address] [address] Reema Mireles CO2 [Moles/Vol] 24.4 mmol/L Normal 21.0-32.0 [facility] Comment on above: Performed By: #### C MP #### [facility] [address] [address] [address] Reema Mireles Creatinine [Mass/Vol] 0.87 mg/dL Normal 0.55-1.02 [facility] Comment on above: Performed By: #### C MP #### [facility] [address] [address] [address] Reema Mireles EGFR-AF CITIZEN OF [place] >60 Normal >=60 [facility] Comment on above: Performed By: #### C MP #### [facility] [address] [address] [address] Reema Mireles EGFR-NON AF CITIZEN OF THE [place] >60 Normal >=60 [facility] Comment on above: Performed By: #### C MP #### [facility] [address] [address] [address] Reema Mireles Globulin (S) [Mass/Vol] 3.5 g/dL Normal [facility] Comment on above: Performed By: #### C MP #### [facility] [address] [address] [address] Reema Mireles Glucose [Mass/Vol] 109 mg/dL Critically high 74-106 [facility] Comment on above: Performed By: #### C MP #### [facility] [address] [address] [address] Reema Mireles Potassium [Moles/Vol] 3.3 mmol/L Critically low 3.5-5.1 [facility] Comment on above: Performed By: #### C MP #### [facility] [address] [place] [address] Dr. Reema Mireles Protein [Mass/Vol] 8.0 g/dL Normal 6.4-8.2 [facility] Comment on above: Performed By: #### C MP #### [facility] [address] [address] [address] Reema Mireles Sodium [Moles/Vol] 139 mmol/L Normal 136-145 [facility] Comment on above: Performed By: #### C MP #### [facility] [address] [address] [address] Reema Mireles Urea nitrogen [Mass/Vol] 9.0 mg/dL Normal 7.0-18.0 [facility] Comment on above: Performed By: #### C MP #### [facility] [address] [address] [address] Reema Mireles Urea nitrogen/Creatinine [Mass ratio] 10.3 mg/mg Normal [facility] Comment on above: Performed By: #### C MP #### [facility] [address] [address] [address] Reema Mireles URINE MICROSCOPIC ONLYon BACTERIA NONE SEEN Normal NONE SEEN [facility] Comment on above: Performed By: #### B MP, TSH #### [facility] [address] [place] [address] Dr. Reema Mireles Bacteria identified Cx Nom (U) NOT INDICATED Normal [facility] Comment on above: Performed By: #### B MP, TSH #### [facility] [address] [place] [address] Dr. Reema Mireles CAST NONE SEEN Normal NONE SEEN [facility] Comment on above: Performed By: #### B MP, TSH #### [facility] [address] [place] [address] Dr. Reema Mireles Crystals LM Nom (Urine sed) NONE SEEN Normal NONE SEEN [facility] Comment on above: Performed By: #### B MP, TSH #### [facility] [address] [place] [address] Dr. Reema Mireles Epithelial cells LM Ql (Urine sed) RARE Normal NONE SEEN /RARE [facility] Comment on above: Performed By: #### B MP, TSH #### [facility] [address] [place] [address] Dr. Reema Mireles MUCOUS NONE SEEN Normal NONE SEEN [facility] Comment on above: Performed By: #### B MP, TSH #### [facility] [address] [place] [address] Dr. Reema Mireles RBC 0-2 Normal 0-2 [facility] Comment on above: Performed By: #### B MP, TSH #### [facility] [address] [place] [address] Dr. Reema Mireles WBC NONE SEEN Normal NONE SEEN [facility] Comment on above: Performed By: #### B MP, TSH #### [facility] [address] [place] [address] Dr. Reema Mireles CBC AUTO DIFFon 10-25-2021 BASO # 0.0 103/ul Normal 0.0-0.1 [facility] Comment on above: Performed By: #### C BC #### [facility] [address] [place] [address] Dr. Reema Mireles Basophils/100 WBC (Bld) 0.6 % Normal 0.2-2.0 [facility] Comment on above: Performed By: #### C BC #### [facility] [address] [place] [address] Dr. Reema Mireles EO # 0.1 103/ul Normal 0.0-0.7 [facility] Comment on above: Performed By: #### C BC #### [facility] [address] [place] [address] Dr. Reema Mireles Eosinophils/100 WBC (Bld) 1.8 % Normal 0.9-7.0 [facility] Comment on above: Performed By: #### C BC #### [facility] [address] [place] [address] Dr. Reema Mireles Erythrocyte distribution width (RBC) [Ratio] 11.9 % Normal 11.0-15.0 [facility] Comment on above: Performed By: #### C BC #### [facility] [address] [place] [address] Dr. Reema Mireles Hematocrit (Bld) [Volume fraction] 38.1 % Normal 36.0-48.0 [facility] Comment on above: Performed By: #### C BC #### [facility] [address] [place] [address] Dr. Reema Mireles Hemoglobin (Bld) [Mass/Vol] 13.1 g/dL Normal 12.0-16.0 [facility] Comment on above: Performed By: #### C BC #### [facility] [address] [place] [address] Dr. Reema Mireles IG # 0.01 10e3/ul Normal 0.00-0.03 [facility] Comment on above: Performed By: #### C BC #### [facility] [address] [place] [address] Dr. Reema Mireles IG % 0.1 % Normal 0.0-0.5 [facility] Comment on above: Performed By: #### C BC #### [facility] [address] [place] [address] Dr. Reema Mireles LYMPH # 1.9 103/ul Normal 1.2-3.8 [facility] Comment on above: Performed By: #### C BC #### [facility] [address] [place] [address] Dr. Reema Mireles Lymphocytes/100 WBC (Bld) 27.8 % Normal 20.5-60.0 [facility] Comment on above: Performed By: #### C BC #### [facility] [address] [place] [address] Dr. Reema Mireles MANUAL DIFF REQ NO Normal [facility] Comment on above: Performed By: #### C BC #### [facility] [address] [place] [address] Dr. Reema Mireles MCH (RBC) [Entitic mass] 30.5 pg Normal 26.7-34.0 [facility] Comment on above: Performed By: #### C BC #### [facility] [address] [place] [address] Dr. Reema Mireles MCHC (RBC) [Mass/Vol] 34.4 g/dL Normal 29.9-35.2 [facility] Comment on above: Performed By: #### C BC #### [facility] [address] [place] [address] Dr. Reema Mireles MCV (RBC) [Entitic vol] 88.8 fL Normal 81.0-99.0 [facility] Comment on above: Performed By: #### C BC #### [facility] [address] [place] [address] Dr. Reema Mireles MONO # 0.8 103/ul Normal 0.3-0.8 [facility] Comment on above: Performed By: #### C BC #### [facility] [address] [place] [address] Dr. Reema Mireles Monocytes/100 WBC (Bld) 11.2 % Normal 1.7-12.0 [facility] Comment on above: Performed By: #### C BC #### [facility] [address] [place] [address] Dr. Reema Mireles NEUT # 4.0 103/ul Normal 1.4-6.5 [facility] Comment on above: Performed By: #### C BC #### [facility] [address] [place] [address] Dr. Reema Mireles Neutrophils/100 WBC (Bld) 58.5 % Normal 43.0-75.0 [facility] Comment on above: Performed By: #### C BC #### [facility] [address] [place] [address] Dr. Reema Mireles Platelet mean volume (Bld) [Entitic vol] 10.0 fL Normal 9.5-13.5 [facility] Comment on above: Performed By: #### C BC #### [facility] [address] [place] [address] Dr. Reema Mireles PLT 361 103/ul Normal 150-450 [facility] Comment on above: Performed By: #### C BC #### [facility] [address] [place] [address] Dr. Reema Mireles RBC 4.29 106/ul Normal 4.20-5.40 [facility] Comment on above: Performed By: #### C BC #### [facility] [address] [place] [address] Dr. Reema Mireles WBC 6.8 103/ul Normal 4.0-11.0 [facility] Comment on above: Performed By: #### C BC #### [facility] [address] [place] [address] Dr. Reema Mireles PREG QUANT HCGon 10-25-2021 HCG QUANT 1 mIU/mL Normal [facility] Comment on above: Performed By: #### P REGQNT #### [facility] [address] [place] [address] Dr. Reema Mireles HCG RANGE SEE BELOW Normal [facility] Comment on above: Result Comment: 5-50 0-1 WEEK 40-300 1-2 WEEKS 100-1,000 2-3 WEEKS 500-6,000 3-4 WEEKS 5,000-200,000 1-2 MONTHS 10,000-100,000 2-3 MONTHS 3,000-50,000 2ND TRIMESTER 1,000-50,000 3RD TRIMESTER Performed By: #### P REGQNT #### [facility] [address] [address] [address] Reema Mireles Covid-19 PCR ([facility])on 09-29 SARS-CoV-2 (COVID-19) RNA FRANKIE+probe Ql (Unsp spec) Not detected Normal NOT DETECTED [facility] Comment on above: Result Comment: This test is not yet approved or cleared by the [place] FDA. When there are no FDA-approved or cleared tests available, and other criteria are met, FDA can make tests available under an emergency access mechanism called an Emergency Use Authorization (EUA). The EUA for this test is supported by the [employer] of Health and Human Service's (HHS's) declaration [...] SARS-CoV-2. Performed By: #### C VDTB #### [facility] [address] [place], [place] [address] Dr. Reema Mireles Vital Signs Date Time Vital Sign Value Performing Clinician Facility 11-12-2023 14:15-0500 Body weight 108.86 kg [employer] Work Phone: [facility] 11-12-2023 14:15-0500 Diastolic blood pressure 72 mm[Hg] [employer] Work Phone: [facility] 11-12-2023 14:15-0500 Systolic blood pressure 122 mm[Hg] Devan Tello DO Work Phone: [facility] 04-12-2022 21:04-0400 Diastolic blood pressure 84 mm[Hg] [facility] 04-12-2022 21:04-0400 Heart rate 82 /min [facility] 04-12-2022 21:04-0400 Respiratory rate 16 /min [facility] 04-12-2022 21:04-0400 SaO2% (BldA) [Mass fraction] 98 % [facility] 04-12-2022 21:04-0400 Systolic blood pressure 120 mm[Hg] [facility] 04-12-2022 20:32-0400 gluc 80 mg/dL [facility] Comment on above: Result Comment: not taken due to pt refu jimmie of any injection 04-12-2022 20:32-0400 gluc [facility] 04-12-2022 19:25-0400 Body temperature 99.32 [degF] [facility] 04-12-2022 19:25-0400 Diastolic blood pressure 84 mm[Hg] [facility] 04-12-2022 19:25-0400 Heart rate 90 /min [facility] 04-12-2022 19:25-0400 Respiratory rate 18 /min [facility] 04-12-2022 19:25-0400 SaO2% (BldA) [Mass fraction] 98 % [facility] 04-12-2022 19:25-0400 Systolic blood pressure 118 mm[Hg] [facility] 04-09-2022 12:20-0400 Body height 165.1 cm Deonna Back Other [employer] Other 04-09-2022 12:20-0400 Body mass index (BMI) [Ratio] 35.61 kg/m2 Deonna Nazanin Other [employer] Other 04-09-2022 12:20-0400 Body temperature 98.4 [degF] Deonna Nazanin Other [employer] Other 04-09-2022 12:20-0400 Body weight 97.07 kg Deonna Nazanin Other [employer] Other 04-09-2022 12:20-0400 Diastolic blood pressure 83 mm[Hg] Deonna Nazanin Other [employer] Other 04-09-2022 12:20-0400 Respiratory rate 18 /min Deonna Nzaanin Other [employer] Other 04-09-2022 12:20-0400 SaO2% (BldA) [Mass fraction] 99 % Deonna Nazanin Other [employer] Other 04-09-2022 12:20-0400 Systolic blood pressure 135 mm[Hg] Deonna Nazanin Other [employer] Other 04-02-2022 19:00-0400 Body height 165.1 cm Deonna Nazanin Other [employer] Other 04-02-2022 19:00-0400 Body mass index (BMI) [Ratio] 35.71 kg/m2 Deonna Nazanin Other [employer] Other 04-02-2022 19:00-0400 Body temperature 98.1 [degF] Deonna Nazanin Other [employer] Other 04-02-2022 19:00-0400 Body weight 97.34 kg Deonna Back Other [employer] Other 04-02-2022 19:00-0400 Diastolic blood pressure 83 mm[Hg] Deonna Back Other [employer] Other 04-02-2022 19:00-0400 Respiratory rate 18 /min Deonna Back Other [employer] Other 04-02-2022 19:00-0400 SaO2% (BldA) [Mass fraction] 100 % Deonna Back Other [employer] Other 04-02-2022 19:00-0400 Systolic blood pressure 134 mm[Hg] Deonna Back Other [employer] Other Encounters Encounter Date Encounter Type Care Provider Facility Start: 01-05-2024 End: 01-05-2024 ambulatory DEVAN OMER Not Available Start: 12-28-2023 End: 12-28-2023 ambulatory CYDNEY LEOS Not Available Start: 12-14-2023 End: 12-14-2023 ambulatory [...] 04-12-2022 End: 04-12-2022 [facility] Start: 04-10-2022 End: 04-10-2022 ambulatory Deonna Back Other [employer] Other Start: 04-10-2022 Telephone encounter Deonna Back [facility] Start: 04-09-2022 End: 04-09-2022 ambulatory Deonna Back Other [employer] Other Start: 04-09-2022 Office outpatient vi sit 15 minutes Deonna Back [facility] Start: 04-09-2022 End: 04-09-[address] LUIS ANTONIO SUTTON Facility:[facility] Start: 04-02-2022 (URG) Urgent Care Visit Deonna pace [facility] Start: 04-02-2022 End: 04-02-2022 ambulatory Deonna Back Other [facility] [employer] Other Start: 10-25-2021 End: 10-25-[address] ADRYAN MARIE Facility:[facility] Start: 10-24-2021 Encounter for preprocedural laboratory examination DR DEVAN TELLO [facility] Start: 10-22-2021 End: 10-23-[address] ADRYAN MARIE Facility:[facility] Start: 10-22-2021 End: 10-23-2021 Encounter for preprocedural laboratory examination DR ADRYAN MARIE Facility:[facility] Start: 10-19-2021 Encounter for other preprocedural examination DR DEVAN TELLO [facility] Start: 10-17-2021 End: 10-18-[address] [...] Routine [facility] [address] [place] [address] Cydney Leos PA [address] [place] [address] [facility] Start: 11-26-2023 End: 11-26-2023 Professional / ancillary services management 11/26/2023 10:30 AM EST Ancillary Procedure [facility] [address] [place] [address] [facility] Start: 11-12-2023 End: [...] [address] [facility] [place] [id number] Devan Tello, [address], [place] [id number] [facility] Payers Date Payer Category Payer Unknown [facility] MEDICAID [id number] 2023-Present [address] [place] [address] [id number] 2023 Medicaid [id number] 2001 Unknown [id number] 2.16.840.1.393662.3.579.2. 593 2001 Unknown [id number] 2.16.840.1.704929.3.579.2. 593 2001 Unknown [id number] 2.16.840.1.833706.3.579.2. 593 2001 Unknown [id number] 2.16.840.1.623562.3.579.2. 593 2001 Unknown [id number] 2.16.840.1.376196.3.579.2. 593 2001 Unknown [id number] 2.16.840.1.152846.3.579.2. 593 2001 Unknown [id number] 2.16.840.1.149390.3.579.2. 593 2001 Unknown [id number] 2.16.840.1.002815.3.579.2. 593 2001 Unknown [id number] 2.16.840.1.708939.3.579.2. 593 2001 Unknown [id number] 2.16.840.1.621981.3.579.2. 593 2001 Unknown [id number] 2.16.840.1.701213.3.579.2. 593 2001 Unknown [id number] 2.16.840.1.122424.3.579.2. 1259 2001 Unknown [id number] 2.16.840.1.559311.3.579.2. 1259 2001 Unknown [id number] 2.16.840.1.670463.3.579.2. 1259 2001 Unknown [id number] 2.16.840.1.342399.3.579.2. 1259 2001 Unknown [id number] 2.16.840.1.373887.3.579.2. 1259 2001 Unknown [id number] 2.16.840.1.316395.3.579.2. 1259 2001 Unknown [id number] 2.16.840.1.782680.3.579.2. 1259 2001 Unknown [id number] 2.16.840.1.658255.3.579.2. 1259 1958 [facility] [id number] [id number] Social History Date Type Detail Facility Unknown if ever smoked [employer] Other Sex Assigned At [employer] Other Tobacco smoking status No Smoking Status Entered [facility] Start: 06-20-2023 Tobacco smoking status LAIS Tobacco smoking consumption unknown [facility] Start: 10-15-2023 Alcohol intake Lifetime non-d hermes (finding) [facility] Start: 06-20-2023 Tobacco Comment Current smoker (frequency unknown) [facility] Start: 05-06-2023 [facility] Start: 2000 Sex Assigned At Not on file N S Healthcare Goals Date Patient Goal Desired Activity /State Personal health goal Functional Status Date Assessment Result Facility 04-12-2022 Functional Status N/A [facility] History of Present illness Narrative 11-12-2023 Ciarra CastilloAMMON - 11/12/2023 10:50 AM EST Note Date [...] Devan Tello DO documented in this encounter [facility] Discharge instructions 04-12-2022 Note Date & [...] help with your condition: Managing pain Take cgxe-jyy-ejnvxma and prescription medicines only as told by [...] 09/14/2006 Document Revised: 04/04/2019 Document Reviewed: 04/04/2019 [employer] Patient Education 2020 [employer] 04/12/2022 21:07:38 Vertigo Vertigo Vertigo is [...] if you feel dizzy. General instructions Take coso-nch-utzjnvt and prescription medicines only as told by [...] 06/24/2006 Document Revised: 08/08/2019 Document Reviewed: 08/08/2019 [employer] Patient Education 2020 [employer] Follow Up Care 04/12/2022 19:25:17 With:ADRYAN MARIE Address: [address] [place] [phone] (1) When:04/15/2022 20:55:24 Comments:Return to the emergency room if her headache gets worse, vertigo becomes persistent or any new symptoms [facility] Evaluation note 07-13-2022 Note Date & Type Note Facility 04-09-2022 [...] She was prescribed Zofran with no improvement. [employer] Other Evaluation note 04-02-2022 Note Date & [...] 3 days. No swimming for a week [employer] Other Clinical Note 10-25-2021 Note Date & Type Note Facility 10-25-2021 Note OPERATIVE NOTE PROCEDURE: Diagnostic laparoscopy. PREOPERATIVE DIAGNOSIS: Pelvic pain, dyspareunia dysmenorrhea. POSTOPERATIVE DIAGNOSIS: Pelvic pain, dyspareunia dysmenorrhea. ANESTHESIA: General. SURGEON: Devan Tello D.O. BANDAGE MAKER: JAE Worley URINE OUTPUT: Yellow and clear. [...] taken to Recovery Room in stable condition. [facility] Signed and Approved by: DR DEVAN TELLO . 11/01/2021 17:31:00 [facility] Evaluation + Plan note Note Date & Type Note Facility Evaluation + Plan note No data available for this section [facility] Evaluation note Note Date & Type Note Facility Evaluation note No Information [facility] [employer] Other Evaluation note Note Date & Type [...] endometriosis Hospitalization History RSV as a baby [employer] Other Progress note Note Date & Type Note Facility Progress note No data available for this section [facility] Summary Purpose Family History No Family History Records FoundNo Family History Records FoundNo Family History Records Found Advance Directives No Advanced Directives Records FoundNo Advanced Directives Records FoundNo Advanced Directives Records Found Additional Source Comments REASON FOR VISIT (unrecogniz ed section and content) Reason Comments Routine Visit Care Team (unrecognized sect ion and content) Real Estate Services Coordinator Relationship Specialty Start Date End Date Adryan Marie MD [address] [place] [address] PCP - General Family Medicine 06/19/23 [employer] Estate Services Coordinator Relationship Specialty Start Date End Date Adryan Marie MD [address] [place] [address] PCP - General Family Medicine 06/19/23 INFORMATION SOURCE (unrecogn ized section and content) DATE CREATED AUTHOR 04/26/2022 [facility] DATE CREATED AUTHOR AUTHOR'S ORGANIZ ATION 09/19/2022 [facility] DATE CREATED AUTHOR AUTHOR'S ORGANIZ ATION 01/06/2024 [facility] FOR RECORDS PERTAINING TO PATIENTS WHO [...] BE BASED ON THE PRIMARY CLINICAL RECORDS. [facility]. provides no warranty or guarantee of the accuracy or completeness of information in this document.
== END 2024-01-09 09:08 | disposition home or self-care (01) ==
LOC: FBCO 00:17 → FBC 08:01
PROVIDERS: PCP Family Medicine; Visit Provider Obstetrics & Gynecology
DX: O36.63X0 Maternal care for excessive fetal growth, third trimester, not applicable or unspecified (principal)
CPT/HCPCS: 59025

== ENCOUNTER 2024-01-13 07:27 | Outpatient (OUT) | payer OTHER, SELFPAY ==
--- NOTE | 2024-01-13 | US_ITS ---
[address] [address] Patient Name: JUANPABLO CHAPARRO MRN: [id number] date: 2000 Sex: F Assigned Patient [facility]: [facility] Current Patient Location: Accession/Order Number: [id number] Exam Date: 01/13/2024 10:00 Report Date: 01/13/2024 11:40 At the request of: DEVAN GEORGE Procedure: US OB growth EXAMINATION: US OB growth HISTORY: EXCESSIVE GROWTH O36.63X0 COMPARISON: No relevant comparison available. FINDINGS: Heart Rate: 150.0 bpm Amniotic Fluid Volume: 13.6 cm Number: 1.0 Position: Cephalic presentation, longitudinal lie Maximum Vertical Pocket: 4.1 cm cm 2.8 cm cm 1.8 cm cm 5.0 cm cm BIOMETRY: BPD: 9.2 cm cm; 37 weeks 3 days; 57% HC: 34.0 cmcm; 39 weeks 1 days , 57% AC: 35.3 cm cm; 39 weeks 1 days, 91% FL: 7.1 cm cm; 36 weeks 1 days; 12.2 % % EFW: 3454.8 grams, 7 lbs. 10 oz., 70% FL/AC: 20.0 FL/BPD: 76.7 HC/AC: 1.0 GESTATIONAL AGE: Age by EDC: 38 weeks 0 days TOMASZ by EDC: 01/27/2024 Age by US: 38 weeks 0 days TOMASZ by US: 01/27/2024 US/US OB growth IMPRESSION: Normal interval growth Electronically authenticated by: ADRYAN PRESCOTT Date: 01/13/2024 11:40
--- OUTSIDE RECORDS SUMMARY | 2024-01-13 07:30 | XMS_ITS | CCD ---
Author Organization [facility] Care Team Providers Care Diabetes Manager Name Role Phone Deonna Back Unavailable DEFJAILENE, [...] GONZALEZ Consulting Unavailable DIETER GONZALEZ Attending Unavailable CARLOS, DIETER Admitting Unavailable Defrance Adryan OBRIEN Primary Care Provider [phone] CYDNEY LEOS Attending Unavailable CYDNEY LEOS Attending Unavailable DEVAN TELLO Attending Unavailable CYDNEY LEOS Attending Unavailable DEVAN TELLO Attending Unavailable CYDNEY LEOS Attending Unavailable DEVAN TELLO Attending Unavailable DEVAN TELLO Attending Unavailable Allergies Allergy Classification Reported Allergen(s) Allergy Type Date of Onset Reaction(s) Facility (3 sources) Sulfacetamide Drug Allergy rash [facility] Other (1 source) Sulfonamides (Antibiotic); Translations: [sulfa drugs] Drug allergy Hyperpyrexia (finding) [facility] (1 source) Sulfonamides (Antibiotic) Drug allergy (disorder) 07-26-20 14 [facility] Repository (3 sources) Sulfonamides (Antibiotic) Drug [...] BY MOUTH EVERY MORNING 0 10/06/[address]-Rcx-ON-[place]-3 ( Gummies/DHA & FA) 0.4-32.5 MG chewable tablet (3 sources) Start: 06-19-2023 End: 06-18-2024 IG-Pem-UA-[place]-3 ( Gummies/DHA & FA) 0.4-32.5 MG chewable tablet Indications: Missed menses Chew 32.5 mg in the morning. 30 tablet 11 06/19/2023 06/18/2024 Active Completed/Discontinued Medications Medication Drug Class(es) Dates Sig (Normalized) Sig (Original) [id number] 200 actuat albuterol 0.09 mg/actuat metered dose [...] / neomycin 3.5 mg/ml / polymyxin b [id number] unt/ml otic suspension (3 sources) Aminoglycoside Antibacterial, Polymyxin-class Antibacterial, Corticosteroid Start: 04-02-2022 Neomycin-Polymyx in-HC [id number] 3 drops left ear Three times a [...] Negative - 4(70) +++ mg/dL [facility] Blood, UA Negative Negative - 50 Cedric/mcL [facility] Clarity, UA Clear [facility] re Color, UA Yellow [facility] Glucose, UA Negative Negative - 1999(110) ++++ mg/dL [facility] Interpretation and review of laboratory results Normal [facility] Ketones, UA Negative Negative - 160(16) ++++ mg/dL [facility] Leukocytes, UA Negative Negative - 500+++ Alessandro/mcL [facility] Nitrite, UA Negative Negative - Positive [facility] pH, UA 6.0 5 - 9 [facility] e Protein, UA Negative Negative - 1999(20) ++++ mg/dL [facility] Spec Grav, UA 1.020 1 - 1.03 [facility] Urobilinogen, UA 0.2 0.2 - 12 mg/dL [facility] ALL CBC WITH AUTO DIFFon BASOPHILS ABSOLUTE AUTO 0.0 [facility] Basophils/100 WBC (Bld) 0.3 % 0.2 - 2.0 % [facility] Eosinophils/100 WBC (Bld) 1.0 % 0.9 - 7.0 % [facility] Erythrocyte distribution width (RBC) [Ratio] 12.5 % 11.0 - 15.0 % [facility] Hematocrit (Bld) [Volume fraction] 35.1 % Low 36.0 - 48.0 % [facility] Hemoglobin (Bld) [Mass/Vol] 11.7 g/dL Low 12.0 - 16.0 g/dL [facility] IMMATURE GRANULOCYTES ABS AUTO 0.08 High [facility] Immature granulocytes/100 WBC (Bld) 0.6 % High 0.0 - 0.5 % [facility] Interpretation and review of laboratory results Abnormal [facility] LYMPHOCYTES ABSOLUTE AUTO 1.6 [facility] Lymphocytes/100 WBC (Bld) 11.9 % Low 20.5 - 60.0 % [facility] MCH (RBC) [Entitic mass] 30.7 pg 26.7 - 34.0 pg [facility] MCHC (RBC) [Mass/Vol] 33.3 g/dL 29.9 - 35.2 g/dL [facility] MCV (RBC) [Entitic vol] 92.1 fL 81.0 - 99.0 fL [facility] MONOCYTES ABSOLUTE AUTO 0.8 [facility] Monocytes/100 WBC (Bld) 5.5 % 1.7 - 12.0 % [facility] NEUTROPHILS ABSOLUTE AUTO 11.1 High [facility] Neutrophils/100 WBC (Bld) 80.7 % High 43.0 - 75.0 % [facility] Platelet mean volume (Bld) [Entitic vol] 10.6 fL 9.5 - 13.5 fL [facility] are TBH EO # 0.1 [facility] PLT 292 [facility] RBC 3.81 Low [facility] WBC 13.8 High [facility] CBC AUTO DIFFon 09-14-2022 BASO # 0.0 103/ul Normal 0.0-0.1 [facility] Comment on above: Performed By: #### B GURPREET, TSH #### [facility] [address] [place] [address] Dr. Reema Mireles Basophils/100 WBC (Bld) 0.6 % Normal 0.2-2.0 [facility] Comment on above: Performed By: #### B GURPREET, TSH #### [facility] [address] [place] [address] Dr. Reema Mireles EO # 0.0 103/ul Normal 0.0-0.7 [facility] Comment on above: Performed By: #### B GURPREET, TSH #### [facility] [address] [place] [address] Dr. Reema Mireles Eosinophils/100 WBC (Bld) 0.6 % Critically low 0.9-7.0 [facility] Comment on above: Performed By: #### B GURPREET, TSH #### [facility] [address] [place] [address] Dr. Reema Mireles Erythrocyte distribution width (RBC) [Ratio] 11.9 % Normal 11.0-15.0 [facility] Comment on above: Performed By: #### B GURPREET, TSH #### [facility] [address] [place] [address] Dr. Reema Mireles Hematocrit (Bld) [Volume fraction] 37.8 % Normal 36.0-48.0 [facility] Comment on above: Performed By: #### Inna VÁZQUEZ, TSH #### [facility] [address] [place] [address] Dr. Reema Mireles Hemoglobin (Bld) [Mass/Vol] 13.5 g/dL Normal 12.0-16.0 [facility] Comment on above: Performed By: #### Inna VÁZQUEZ, TSH #### [facility] [address] [place] [address] Dr. Reema Mireles IG # 0.01 10e3/ul Normal 0.00-0.03 [facility] Comment on above: Performed By: #### Inna VÁZQUEZ, TSH #### [facility] [address] [place] [address] Dr. Reema Mireles IG % 0.2 % Normal 0.0-0.5 [facility] Comment on above: Performed By: #### B GURPREET, TSH #### [facility] [address] [place] [address] Dr. Reema Mireles LYMPH # 1.6 103/ul Normal 1.2-3.8 [facility] Comment on above: Performed By: #### B GURPREET, TSH #### [facility] [address] [place] [address] Dr. Reema Mireles Lymphocytes/100 WBC (Bld) 25.5 % Normal 20.5-60.0 [facility] Comment on above: Performed By: #### Inna VÁZQUEZ, TSH #### [facility] [address] [place] [address] Dr. Reema Mireles MANUAL DIFF REQ NO Normal [facility] Comment on above: Performed By: #### B MP, TSH #### [facility] [address] [place] [address] Dr. Reema Mireles MCH (RBC) [Entitic mass] 30.9 pg Normal 26.7-34.0 [facility] Comment on above: Performed By: #### B MP, TSH #### [facility] [address] [place] [address] Dr. Reema Mireles MCHC (RBC) [Mass/Vol] 35.7 g/dL Critically high 29.9-35.2 [facility] Comment on above: Performed By: #### B GURPREET, TSH #### [facility] [address] [place] [address] Dr. Reema Mireles MCV (RBC) [Entitic vol] 86.5 fL Normal 81.0-99.0 [facility] Comment on above: Performed By: #### B GURPREET, TSH #### [facility] [address] [place] [address] Dr. Reema Mireles MONO # 0.5 103/ul Normal 0.3-0.8 [facility] Comment on above: Performed By: #### B GURPREET, TSH #### [facility] [address] [place] [address] Dr. Reema Mireles Monocytes/100 WBC (Bld) 8.5 % Normal 1.7-12.0 [facility] Comment on above: Performed By: #### B GURPREET, TSH #### [facility] [address] [place] [address] Dr. Reema Mireles NEUT # 4.1 103/ul Normal 1.4-6.5 [facility] Comment on above: Performed By: #### B MP, TSH #### [facility] [address] [place] [address] Dr. Reema Mireles Neutrophils/100 WBC (Bld) 64.6 % Normal 43.0-75.0 [facility] Comment on above: Performed By: #### B GURPREET, TSH #### [facility] [address] [place] [address] Dr. Reema Mireles Platelet mean volume (Bld) [Entitic vol] 9.9 fL Normal 9.5-13.5 [facility] Comment on above: Performed By: #### B MP, TSH #### [facility] [address] [place] [address] Dr. Reema Mireles PLT 403 103/ul Normal 150-450 [facility] Comment on above: Performed By: #### B MP, TSH #### [facility] [address] [place] [address] Dr. Reema Mireles RBC 4.37 106/ul Normal 4.20-5.40 [facility] Comment on above: Performed By: #### B MP, TSH #### [facility] [address] [place] [address] Dr. Reema Mireles WBC 6.3 103/ul Normal 4.0-11.0 [facility] Comment on above: Performed By: #### B MP, TSH #### [facility] [address] [place] [address] Dr. Reema Mireles PROF 14(COMP METB)on 022 Albumin [Mass/Vol] 4.3 g/dL Normal 3.4-5.0 [facility] Comment on above: Performed By: #### B MP, TSH #### [facility] [address] [place] [address] Dr. Reema Mireles Albumin/Globulin [Mass ratio] 1.2 {ratio} Normal [facility] Comment on above: Performed By: #### B MP, TSH #### [facility] [address] [place] [address] Dr. Reema Mireles ALP [Catalytic activity/Vol] 79 U/L Normal 46-116 [facility] Comment on above: Performed By: #### B MP, TSH #### [facility] [address] [place] [address] Dr. Reema Mireles ALT [Catalytic activity/Vol] 31 U/L Normal 14-59 [facility] Comment on above: Performed By: #### B MP, TSH #### [facility] [address] [address] [address] Reema Mireles Anion gap [Moles/Vol] 12.1 mmol/L Normal [facility] Comment on above: Performed By: #### B MP, TSH #### [facility] [address] [address] [address] Reema Mireles AST [Catalytic activity/Vol] 17 U/L Normal 15-37 [facility] Comment on above: Performed By: #### B MP, TSH #### [facility] [address] [place] [address] Dr. Reema Mireles Bilirubin [Mass/Vol] 0.4 mg/dL Normal 0.2-1.0 [facility] Comment on above: Performed By: #### B GURPREET, TSH #### [facility] [address] [place] [address] Dr. Reema Mireles Calcium [Mass/Vol] 8.9 mg/dL Normal 8.5-10.1 [facility] Comment on above: Performed By: #### B GURPREET, TSH #### [facility] [address] [place] [address] Dr. Reema Mireles Chloride [Moles/Vol] 98 mmol/L Normal 98-107 [facility] Comment on above: Performed By: #### B GURPREET, TSH #### [facility] [address] [place] [address] Dr. Reema Mireles CO2 [Moles/Vol] 27.0 mmol/L Normal 21.0-32.0 [facility] Comment on above: Performed By: #### B GURPREET, TSH #### [facility] [address] [place] [address] Dr. Reema Mireles Creatinine [Mass/Vol] 0.65 mg/dL Normal 0.55-1.02 [facility] Comment on above: Performed By: #### B GURPREET, TSH #### [facility] [address] [place] [address] Dr. Reema Mireles EGFR-AF COMORAN >60 Normal >=60 [facility] Comment on above: Performed By: #### B GURPREET, TSH #### [facility] [address] [address] [address] Reema Mireles EGFR-NON AF COMORAN >60 Normal >=60 [facility] Comment on above: Performed By: #### B GURPREET, TSH #### [facility] [address] [address] [address] Reema Mireles Globulin (S) [Mass/Vol] 3.5 g/dL Normal [facility] Comment on above: Performed By: #### B GURPREET, TSH #### [facility] [address] [address] [address] Reema Mireles Glucose [Mass/Vol] 106 mg/dL Normal 74-106 [facility] Comment on above: Performed By: #### B GURPREET, TSH #### [facility] [address] [place] [address] Dr. Reema Mireles Potassium [Moles/Vol] 3.1 mmol/L Critically low 3.5-5.1 [facility] Comment on above: Performed By: #### B GURPREET, TSH #### [facility] [address] [place] [address] Dr. Reema Mireles Protein [Mass/Vol] 7.8 g/dL Normal 6.4-8.2 [facility] Comment on above: Performed By: #### B GURPREET, TSH #### [facility] [address] [place] [address] Dr. Reema Mireles Sodium [Moles/Vol] 134 mmol/L Critically low 136-145 [facility] Comment on above: Performed By: #### B GURPREET, TSH #### [facility] [address] [place] [address] Dr. Reema Mireles Urea nitrogen [Mass/Vol] 6.0 mg/dL Critically low 7.0-18.0 [facility] Comment on above: Performed By: #### B GURPREET, TSH #### [facility] [address] [place] [address] Dr. Reema Mireles Urea nitrogen/Creatinine [Mass ratio] 9.2 mg/mg Normal [facility] Comment on above: Performed By: #### B GURPREET, TSH #### [facility] [address] [place] [address] Dr. Reema Mireles ACETONE SERUMon 08-11-2022 ACETONE Negative Normal NEGATIVE [facility] Comment on above: Performed By: #### B GURPREET, TSH #### [facility] [address] [place] [address] Dr. Reema Mireles CBC AUTO DIFFon 08-11-2022 BASO # 0.1 103/ul Normal 0.0-0.1 [facility] Comment on above: Performed By: #### B GURPREET, TSH #### [facility] [address] [place] [address] Dr. Reema Mireles Basophils/100 WBC (Bld) 0.5 % Normal 0.2-2.0 [facility] Comment on above: Performed By: #### B GURPREET, TSH #### [facility] [address] [place] [address] Dr. Reema Mireles EO # 0.1 103/ul Normal 0.0-0.7 [facility] Comment on above: Performed By: #### B GURPREET, TSH #### [facility] [address] [place] [address] Dr. Reema Mireles Eosinophils/100 WBC (Bld) 0.7 % Critically low 0.9-7.0 [facility] Comment on above: Performed By: #### B GURPREET, TSH #### [facility] [address] [place] [address] Dr. Reema Mireles Erythrocyte distribution width (RBC) [Ratio] 11.7 % Normal 11.0-15.0 [facility] Comment on above: Performed By: #### B GURPREET, TSH #### [facility] [address] [place] [address] Dr. Reema Mireles Hematocrit (Bld) [Volume fraction] 37.6 % Normal 36.0-48.0 [facility] Comment on above: Performed By: #### B GURPREET, TSH #### [facility] [address] [place] [address] Dr. Reema Mireles Hemoglobin (Bld) [Mass/Vol] 13.1 g/dL Normal 12.0-16.0 [facility] Comment on above: Performed By: #### B MP, TSH #### [facility] [address] [place] [address] Dr. Reema Mireles IG # 0.02 10e3/ul Normal 0.00-0.03 [facility] Comment on above: Performed By: #### B MP, TSH #### [facility] [address] [place] [address] Dr. Reema Mireles IG % 0.2 % Normal 0.0-0.5 [facility] Comment on above: Performed By: #### B MP, TSH #### [facility] [address] [place] [address] Dr. Reema Mireles LYMPH # 2.7 103/ul Normal 1.2-3.8 [facility] Comment on above: Performed By: #### B MP, TSH #### [facility] [address] [place] [address] Dr. Reema Mireles Lymphocytes/100 WBC (Bld) 28.5 % Normal 20.5-60.0 [facility] Comment on above: Performed By: #### B MP, TSH #### [facility] [address] [place] [address] Dr. Reema Mireles MANUAL DIFF REQ NO Normal [facility] Comment on above: Performed By: #### B MP, TSH #### [facility] [address] [place] [address] Dr. Reema Mireles MCH (RBC) [Entitic mass] 30.3 pg Normal 26.7-34.0 [facility] Comment on above: Performed By: #### B MP, TSH #### [facility] [address] [place] [address] Dr. Reema Mireles MCHC (RBC) [Mass/Vol] 34.8 g/dL Normal 29.9-35.2 [facility] Comment on above: Performed By: #### B MP, TSH #### [facility] [address] [place] [address] Dr. Reema Mireles MCV (RBC) [Entitic vol] 87.0 fL Normal 81.0-99.0 [facility] Comment on above: Performed By: #### B MP, TSH #### [facility] [address] [address] [address] Reema Mireles MONO # 0.8 103/ul Normal 0.3-0.8 [facility] Comment on above: Performed By: #### B MP, TSH #### [facility] [address] [place] [address] Dr. Reema Mireles Monocytes/100 WBC (Bld) 8.2 % Normal 1.7-12.0 [facility] Comment on above: Performed By: #### B MP, TSH #### [facility] [address] [place] [address] Dr. Reema Mireles NEUT # 5.9 103/ul Normal 1.4-6.5 [facility] Comment on above: Performed By: #### B MP, TSH #### [facility] [address] [place] [address] Dr. Reema Mireles Neutrophils/100 WBC (Bld) 61.9 % Normal 43.0-75.0 [facility] Comment on above: Performed By: #### B MP, TSH #### [facility] [address] [place] [address] Dr. Reema Mireles Platelet mean volume (Bld) [Entitic vol] 10.2 fL Normal 9.5-13.5 [facility] Comment on above: Performed By: #### B MP, TSH #### [facility] [address] [place] [address] Dr. Reema Mireles PLT 382 103/ul Normal 150-450 [facility] Comment on above: Performed By: #### B MP, TSH #### [facility] [address] [place] [address] Dr. Reema Mireles RBC 4.32 106/ul Normal 4.20-5.40 [facility] Comment on above: Performed By: #### B MP, TSH #### [facility] [address] [place] [address] Dr. Reema Mireles WBC 9.6 103/ul Normal 4.0-11.0 [facility] Comment on above: Performed By: #### B MP, TSH #### [facility] [address] [place] [address] Dr. Reema Mireles CRPon 08-11-2022 CRP [Mass/Vol] mg/L Normal <=1.0 [facility] Comment on above: Performed By: #### B MP, TSH #### [facility] [address] [place] [address] Dr. Reema Mireles ER URINE PROFILEon Bilirubin Ql (U) Negative Normal NEGATIVE [facility] Comment on above: Performed By: #### B MP, TSH #### [facility] [address] [place] [address] Dr. Reema Mireles Clarity (U) CLEAR Normal CLEAR [facility] Comment on above: Performed By: #### B MP, TSH #### [facility] [address] [place] [address] Dr. Reema Mireles Color (U) LT. YELLOW Normal YELLOW [facility] Comment on above: Performed By: #### B MP, TSH #### [facility] [address] [place] [address] Dr. Reema RICHARDSONJohana A micrscopic examination will be performed if indicated. Normal [facility] Comment on above: Performed By: #### B MP, TSH #### [facility] [address] [place] [address] Dr. Reema Mireles Glucose Ql (U) Negative Normal NEGATIVE [facility] Comment on above: Performed By: #### B MP, TSH #### [facility] [address] [place] [address] Dr. Reema Mireles Hemoglobin Ql (U) Negative Normal NEGATIVE [facility] Comment on above: Performed By: #### B MP, TSH #### [facility] [address] [place] [address] Dr. Reema Mireles Ketones Ql (U) Negative Normal NEGATIVE [facility] Comment on above: Performed By: #### B MP, TSH #### [facility] [address] [place] [address] Dr. Reema Mireles LEUKOCYTES Negative Normal NEGATIVE [facility] Comment on above: Performed By: #### B MP, TSH #### [facility] [address] [place] [address] Dr. Reema Mireles Nitrite Ql (U) Negative Normal NEGATIVE [facility] Comment on above: Performed By: #### B MP, TSH #### [facility] [address] [place] [address] Dr. Reema Mireles pH (U) 5.5 [pH] Normal 5-9 [facility] Comment on above: Performed By: #### B MP, TSH #### [facility] [address] [place] [address] Dr. Reema Mireles SPEC GRAVITY <=1.005 Abnormal 1.005-<=1.025 [facility] Comment on above: Performed By: #### B MP, TSH #### [facility] [address] [place] [address] Dr. Reema Mireles UA PROTEIN Negative Normal NEGATIVE/ TRACE [facility] Comment on above: Performed By: #### B GURPREET, TSH #### [facility] [address] [place] [address] Dr. Reema Mireles UR MICRO IND NOT INDICATED Normal [facility] Comment on above: Performed By: #### B MP, TSH #### [facility] [address] [place] [address] Dr. Reema Mireles Urobilinogen Qn (U) 0.2 {Renny'U}/dL Normal 0.2 - 1. 0 [facility] Comment on above: Performed By: #### B GURPREET, TSH #### [facility] [address] [place] [address] Dr. Reema Mireles LIPASEon 08-11-2022 Lipase [Catalytic activity/Vol] 71.0 U/L Critically low 73.0-393.0 [facility] Comment on above: Performed By: #### B MP, TSH #### [facility] [address] [place] [address] Dr. Reema Mireles URon 08-11-2022 , QUAL Negative Normal NEGATIVE [facility] Comment on above: Performed By: #### C VDTBH #### [facility] [address] [address] [address] Reema Mireles PROF 14(COMP METB)on 022 Albumin [Mass/Vol] 4.3 g/dL Normal 3.4-5.0 [facility] Comment on above: Performed By: #### B MP, TSH #### [facility] [address] [address] [address] Reema Mireles Albumin/Globulin [Mass ratio] 1.2 {ratio} Normal [facility] Comment on above: Performed By: #### B MP, TSH #### [facility] [address] [address] [address] Reema Mireles ALP [Catalytic activity/Vol] 70 U/L Normal 46-116 [facility] Comment on above: Performed By: #### B MP, TSH #### [facility] [address] [address] [address] Reema Mireles ALT [Catalytic activity/Vol] 16 U/L Normal 14-59 [facility] Comment on above: Performed By: #### B MP, TSH #### [facility] [address] [address] [address] Reema Mireles Anion gap [Moles/Vol] 10.5 mmol/L Normal [facility] Comment on above: Performed By: #### B MP, TSH #### [facility] [address] [address] [address] Reema Mireles AST [Catalytic activity/Vol] 8 U/L Critically low 15-37 [facility] Comment on above: Performed By: #### B MP, TSH #### [facility] [address] [address] [address] Reema Mireles Bilirubin [Mass/Vol] 0.3 mg/dL Normal 0.2-1.0 [facility] Comment on above: Performed By: #### B MP, TSH #### [facility] [address] [address] [address] Reema Mireles Calcium [Mass/Vol] 9.0 mg/dL Normal 8.5-10.1 [facility] Comment on above: Performed By: #### B MP, TSH #### [facility] [address] [address] [address] Reema Mireles Chloride [Moles/Vol] 104 mmol/L Normal 98-107 [facility] Comment on above: Performed By: #### B MP, TSH #### [facility] [address] [address] [address] Reema Mireles CO2 [Moles/Vol] 26.5 mmol/L Normal 21.0-32.0 [facility] Comment on above: Performed By: #### B MP, TSH #### [facility] [address] [address] [address] Reema Mireles Creatinine [Mass/Vol] 0.79 mg/dL Normal 0.55-1.02 [facility] Comment on above: Performed By: #### B MP, TSH #### [facility] [address] [address] [address] Reema Mireles EGFR-AF COMORAN >60 Normal >=60 [facility] Comment on above: Performed By: #### B MP, TSH #### [facility] [address] [address] [address] Reema Mireles EGFR-NON AF COMORAN >60 Normal >=60 [facility] Comment on above: Performed By: #### B MP, TSH #### [facility] [address] [place] [address] Dr. Reema Mireles Globulin (S) [Mass/Vol] 3.5 g/dL Normal [facility] Comment on above: Performed By: #### B MP, TSH #### [facility] [address] [address] [address] Reema Mireles Glucose [Mass/Vol] 106 mg/dL Normal 74-106 [facility] Comment on above: Performed By: #### B MP, TSH #### [facility] [address] [address] [address] Reema Mireles Potassium [Moles/Vol] 3.0 mmol/L Critically low 3.5-5.1 [facility] Comment on above: Performed By: #### B MP, TSH #### [facility] [address] [place] [address] Dr. Reema Mireles Protein [Mass/Vol] 7.8 g/dL Normal 6.4-8.2 [facility] Comment on above: Performed By: #### B MP, TSH #### [facility] [address] [place] [address] Dr. Reema Mireles Sodium [Moles/Vol] 138 mmol/L Normal 136-145 [facility] Comment on above: Performed By: #### B MP, TSH #### [facility] [address] [place] [address] Dr. Reema Mireles Urea nitrogen [Mass/Vol] 8.0 mg/dL Normal 7.0-18.0 [facility] Comment on above: Performed By: #### B MP, TSH #### [facility] [address] [place] [address] Dr. Reema Mireles Urea nitrogen/Creatinine [Mass ratio] 10.1 mg/mg Normal [facility] Comment on above: Performed By: #### B MP, TSH #### [facility] [address] [place] [address] Dr. Reema Mireles PROTIMEon 08-11-2022 INR Coag (PPP) [Relative time] 1.00 {INR} Normal [facility] Comment on above: Performed By: #### P T, PTT #### [facility] [address] [place] [address] Dr. Reema Mireles INR GUIDELINES SEE BELOW Normal [facility] Comment on above: Result Comment: FELICIANO RED INR: 2.0 - 3.0 CONDITIONS NOT LISTED BELOW 2.5 - 3.5 FOR PROSTHETIC HEART VALVE REPLACEMENT 2.5 - 3.5 RECURRENT THROMBOSIS Performed By: #### P T, PTT #### [facility] [address] [place] [address] Dr. Reema Mireles PT Coag (PPP) [Time] 10.8 s Normal 9.0-11.6 [facility] Comment on above: Performed By: #### P T, PTT #### [facility] [address] [place], [place] [id number] Dr. Reema Mireles PTTon 08-11-2022 aPTT Coag (Bld) [Time] 30.8 s Normal 22.3-36.2 [facility] Comment on above: Performed By: #### P T, PTT #### [facility] [address] [place] [address] Dr. Reema Mireles [facility] 10 mm/hr Normal <=20 [facility] Comment on above: Performed By: #### B MP, TSH #### [facility] [address] [place] [address] Dr. Reema Mireles TSHon 08-11-2022 TSH 3.313 uIU/mL Normal 0.358-3.740 [facility] Comment on above: Performed By: #### B MP, TSH #### [facility] [address] [place] [address] Dr. Reema Mireles Discharge Instructionson Discharge Instructions [id number] #1.00CD:127 Normal [facility] Comment on above: Other Comment: wrong patient STOOL CULTUREon 04-20-2022 Campylobacter Culture Final report Normal [facility] Comment on above: Performed By: #### B MP, TSH #### [facility] [address] [place] [address] Dr. Reema Mireles E coli Shiga Toxin EIA Negative Normal Negative [facility] Comment on above: Performed By: #### B MP, TSH #### [facility] [address] [place] [address] Dr. Reema Mireles Result 1 Comment Normal [facility] Comment on above: Result Comment: No S almonella or Shigella recovered. Performed By: #### B MP, TSH #### [facility] [address] [place] [address] Dr. Reema Mireles Result Comment: No C ampylobacter species isolated. Salmonella/Shigella Screen Final report Normal [facility] Comment on above: Performed By: #### B MP, TSH #### [facility] [address] [place] [address] Dr. Reema Mireles Coding Summary.on 04-14-2022 Coding Summary. CD:[id number] Gh0bWw+PGhlYWQ+PE1FV RLzU96icODeaI6QH9fKZ W5MFVBIOKNGAE9FCR1ld ZO7VIyvF9PtalSd LgnibNQeXL27ROo1BEU8 zKdhLJjfwD3zxFLxE3d6 QjIkQM80lT77WXteHXRi RcG2XmNnckotfMEy T6bmJgRojGKfThb+PHRh YmxlIHdpZHRoPScxMDAl SuRlsZlkEZ1fGm1oKOWs LWNvbGxhcHNlOiBj d4znVQCtOIohEC2yxEgg D4KjsNO7ISFqw6j7Ok14 dHI+XUJbOXO4aOmqJRdx i568IeUpm2izJMC9 pRLkCAwxXNJ5K52qn5P5 UCZqTRBsIFP5hKF0eZ0z jJiqcmgbZ4IwcTAcTmO0 AFZ5iGTpbT2rqOnb eipnrH1qUkz+U84GER9H GCMZTR4ZDey5J6DfWqut dHI+UH66WKSlMM83cEYy tSEnt5zbrCc3FnHo SHUxIHG7gXcgXYkpt0Ot ZJRlS90nyGHbh7Q6APVu qFlgzIHpIcUkyWL7rT8h VZyyfswds9krepbl Nczzj8ffof84nB62O75u JVqwCCAeNNO5QAGrOKMo pUorwq4uuS0nCq5+IDxj n4jad3uviYl4OeDq JFZmdlZptEdhJAP2q3Is Me78O1FtuFkgb1BsNmv8 ua24tMEug5T3bBW5PCyo UDBdnF5fOCbhSsW3 RLPnQfRlsS64vAWnLZtc Hu1thRaodHxxYU0nJTWl lxbaSRBmoK8qPLCrpIPj vYjmQU0sYEOldzpx y488AxOiRPA3FUFmeNHg J0AfuH4sLkVvLDEtUJXi Z8BpfNQtYTtvN186TRjl UdV2EAYzkiKmW6On XNGnkArxJmH3v5I0Bh2F a4MpjngyQWS2WIajRBJ2 ShX3EdNjAcB4K7VzDfg8 LTTusFzvVN6zB2Bd MXWxqvqmryflkJH8YZMv TGGkrB53hDVqQRfrUi5k r0J7w272TMCcATHskF88 Pp3mpWikZAAzcUAT gF7yaxqmv3gnjymwOnPe TIGlOBl0CLa3OAYfiVnu NpCoERX8TgN8INM2qMOl zI3chHoiwqanmL5c Oyc+P74mmS5bOHH9KLU9 ldtcRCVlvcTxFR02WP91 J8GmSjlvpHXznZC+PGRp usHhnDjfOO7uDrMq y5qoc5BvETrdG5HfPKAg UGdwRes3QBLuDAK6cUA3 aX7iJWXaWSpfu1M0rYG5 H9XbdbFcny4to6dv UJJzRPtuN14orZRne9Q4 QYLadTM3ALIubJgdWlVr cE65Oie+NCOimDjrh9Ih Vmnjo6oqx5uiqNt5 IjMwJSIgdmFsaWduPSJ0 s6PeOz52Q66zDDdzURRf IJWwZMJgBBOuhYqvud1w wK1jRl3+PGNvbCB3 wFI2uJ6fVUZnNbZ6JIgv K150PmSsxTPxYhyhw1ui e5hsxZf3NnIeEEDwnsBz wNzxCDV3h9NkPw96 Q06mKHdfHYZuZYZwQCZy PGVqtFmyai9jmO3vOw4+ XD1xi0rlzq43vK70eGW+ SJXgXRJ2rWyjUCsy DXPrsP4jAVmkPeW4FAUo ElRljO90kDDoNYcoJv6t kKgmdZvbTY9dBVNrxlvx s768YtGko6jzGKDq xNLkTZumITW6W66sp8K5 NTSdGBXlELX8zGX4wD8l bGlnbjogbGVmdDsgdmVy jTbvHShoSRjiK769 IHRvcDsnPlBhdGllbnQg DzTwWHe6Q2OxPcs8NICf bKhtSK4dgTKxHSsyNe5p sDjhrIglLT7dTTQm rhcrq988YrMjx2uuEMOn lUYqOQwfVVQ9Q14rd3L8 ZOBqBSMiBVG1sGB0iQ1g bGlnbjogbGVmdDsg usVjuRrqWAwvQRrxV589 IHRvcDsnPkJpcnRoIERh hWV5GF14MD63xOXgo1H2 eWN1P1SaTAFnvucf tjgduJW5SWJtUDUfhP71 Ty2txWlsRq1lDZZhWQH1 JXGezQQrR5WqpQ8nApNb URGcAHYcW5BruECg TKdeD728HOyvLyK7UHUr keFwK0SzDLDemWjoTeQ2 r8J9Sz0MT2S0GH53UN68 hCPll3Y1vYS9X9Cu CXUccnjofmkjhBN1YWBn CMNrnI65Mk4byVliDe1t WNUkFHQ5LVNokMOmK9Lc vG3oZnEqVSWpYDZs O4YhkAHeSSlmU974THsc JqN2SFZgrnDfE1PfQMXv xHcqHaP2m9K5Ge5JLFb6 RX94FV13xIUde1R5 gQE3V0ZnKNKyevpqsrdc iQZ0QBXnOBIphU87Lq7g dUnzSr4kFHMoJPI1NPFa zKRcF3AbmO4cZyNk XLJgTMCzD0CjdOYpCMno H074CXkiJlQ4NYArozGf N7VuLZIaaYceEvQ9b3L4 Eu9YDEKjKO27XUU9 bAC2DO23NQ79K6NyTcqp dGFibGU+PHRhYmxlIHdp ZHRoPScxMDAlJyBzdHls BZ7fNr8lCPBvYESy jIwxxIUcXvHmm7tnCRTx AHuqTK8yqFioO1GbaDT0 CQDcq9j9Ak88F83aV2Mq dXA+FOGfjKD3vUM7 aZ2jNwGnArA4XStkU053 ZzVoeALjDuzwp5mvt1vd fNm4HcN2NDZznjKaqDpv EFJ2d5NoBh29J40i IHdpZHRoPSIxNSUiIHZh aFqwwh9twS4sWs7+PGNv uRX6oZN3gF0kWkRoRgQ2 IWulB069DbXiyASc Ymoxt9tsi7wgiMs5PpYd BHYqggHqkDbtOXN8k9Uh Wc23P5ZanLgzy1UsTmr7 zi21rLBxa8S7xDY1 B7LdUFUxwiqipGImbZbp SD5aKHUmgnvmMBJpaF5g MLRqR2c0AaBmNuC1UXqo H5EeqrA8AFJboMHq JYoiYAY6A06zu8P6YAUo OOWyNJF8lIK2aP9guGkv bjogbGVmdDsgdmVydGlj ZUmfAByfH366BAPr bTsmCKOxhR6eOVQsyFAl fKrpPK6nOTKamorpLifA WBVCX28AS7kMEDXFQSGQ HJX0H4MsWdh2OQCc qLixYW0ddJRmGZjsZs9n gEslkXmaAZ7fPPSwmjea BZZbxW6nGRMktERtgOge FB0nVRExmkyzo272 CsDrVYE6WYRreTUwW0Rp gP9tKiWoYEJdYBRgQ1Ep vSCsPCcrO079KAvnXoY9 XRSxgeHeY1BoLYWq cDmeHgI1t6V3Xl6bSt7l FA2sKLKxDU29YZ73zTDz l7L2tPK7L4KxDVKqjsvx hxoloGI5HJQjYHZe uM62vIKoOMhfMw6mq1J0 b166NUJgMANpfL93Rl1l jXjlVIYkdHLNyB7uvsah x3gljptaPmCqTCSe YHt6AIo4IXGglWbmScLp KDD0KuZ7EYR9uDCrmS5m vCxfucmlhF3rYuj+MjAg IAQshfB8K2UeQbj1 PMErcXqwOS4ahZYsEQlh Wt5lsQibnMhjXX4sMAWe qdipUEJpgX5lEEQexVZq iIfpPN6hCVAiwmnh n185ZqZaKED6SIAsjCXs M8DtoE3nFhHeOMRpLECo T8HlmSVeQMqsP009IFzl MhW3OWFmzyIwI4Ty EIMttJtuKgQ0e7A8Wj9F OS1qpAR3L1MaDvt5YZCe wPrkFZ7leWKoTWgtQd0q yHqnzBeqUM6kHJZj kqoxVEOijQ6bORBpvMRa lTyoMJ2xBWLaaqzxs458 WfFwTHS8BAPelFSrC5Pq sK7cZlIvHTIkCQOq M3TruBYrDRkiU498DIuu JsD0DTUrxwQwT8FqFSSo rBufIoO4e8N5Jz2BeAQf P7FvZ8c8P1LkZecj dHI+KX94FOJnAY25mHLz fSFrw3frhGg2DxWhQXMy CCO5dVhxRUuru5MjROEk H51evFVdm4Z6UCQu hWwnvYMoGlNdoCS8dV5e GXewqcduj0yomvxnRjkc l8aczu54dJ56J09aCQlo ZHRoPSIzMCUiIHZh vQdjbm1fxU9bYs3+PGNv lJM0lAW8rY0bFsVoFnQ3 WImjA095PrKrbFRaCqjx k9gxg8affBp7OgXc PSVeveVbcOazXEX9s6Uw Fn36D36vZOklKVBxLJQg HLEeMDNthFajxt9ewT7k Ii8+VQ1uj5jdjo17 qD82cCZ+XVWlBXT3tSnw SBkeCEOlgV7zMXjyNcS4 RDGsGqShmB87jFJlFWlw Bv2xlPgnkOltQR4m UUTtizkww650KzMdi7gj GTGemKOsUUijFPO9R64w t9P1MTDnNDChUHE0xTH3 pD8zdItbzuteuYUb dDsgdmVydGljYWwtYWxp I921EVMcbRllEePqaXDx V9yxfnAFPB5vNwiteIZ+ LSQwZLL7mZxdWZnp QJNdmF2sYXSpV6h9HcFq QiO2KSncJ5CcrcX3SKIy oZZqIFQuiWDRxQ6xkfrk h8mynoceTrZgFBIj NTu3DVv5ILOxtPywHhVl TKY3UgR4GRU5zUPpsV2x kTylunaemB2sJnz+RklO OjwvdGQ+PHRkIHN0 hXrtEEmzAZRevP6bZSUc D7m3UgNxFvE4LXomR4Hs zrT0ETGobTNkCDGkuJZQ vQ6pmwgco6zvfnjr MlVgKYLzYMu5XQm4MDAv zMkuNiXpGBK9PxX5TWR4 dRLokS5puOgzlddsiB8u Oyc+TVJOOjwvdGQ+ RWHyUOI8aHrgKYlgEOFk zE5bGZWqV8u4DiFrEpN9 ROkhP0HdyzJ8JMWqqUBk BMJymVHQkQ2ekazy s8fjuyzsDeMvSNPuMJa6 ZWd2HPIwcFlfMgEhMUJ3 SeQ8WJA6pMNcdZ8haWpg hbfqvD4eOzn+UGF5 RKK2GT81LQ89D7NxRhgr dGFibGU+PHRhYmxlIHdp ZHRoPScxMDAlJyBzdHls HS7hPk5cECCnGLAc bGxh (more content not included)... Normal [facility] CBC AUTO DIFFon 04-13-2022 BASO # 0.1 103/ul Normal 0.0-0.1 [facility] Comment on above: Performed By: #### C VDTBH #### [facility] [address] [place] [address] Dr. Reema Mireles Basophils/100 WBC (Bld) 0.6 % Normal 0.2-2.0 [facility] Comment on above: Performed By: #### C VDTBH #### [facility] [address] [place] [address] Dr. Reema Mireles EO # 0.0 103/ul Normal 0.0-0.7 [facility] Comment on above: Performed By: #### C VDTBH #### [facility] [address] [place] [address] Dr. Reema Mireles Eosinophils/100 WBC (Bld) 0.2 % Critically low 0.9-7.0 [facility] Comment on above: Performed By: #### C VDTBH #### [facility] [address] [place] [address] Dr. Reema Mireles Erythrocyte distribution width (RBC) [Ratio] 11.4 % Normal 11.0-15.0 [facility] Comment on above: Performed By: #### C VDTBH #### [facility] [address] [place] [address] Dr. Reema Mireles Hematocrit (Bld) [Volume fraction] 38.3 % Normal 36.0-48.0 [facility] Comment on above: Performed By: #### C VDTBH #### [facility] [address] [address] [address] Reema Mireles Hemoglobin (Bld) [Mass/Vol] 13.4 g/dL Normal 12.0-16.0 [facility] Comment on above: Performed By: #### C VDTBH #### [facility] [address] [place] [address] Dr. Reema Mireles IG # 0.01 10e3/ul Normal 0.00-0.03 [facility] Comment on above: Performed By: #### C VDTBH #### [facility] [address] [place] [address] Dr. Reema Mireles IG % 0.1 % Normal 0.0-0.5 [facility] Comment on above: Performed By: #### C VDTBH #### [facility] [address] [place] [address] Dr. Reema Mireles LYMPH # 1.8 103/ul Normal 1.2-3.8 [facility] Comment on above: Performed By: #### C VDTBH #### [facility] [address] [place] [address] Dr. Reema Mireles Lymphocytes/100 WBC (Bld) 22.2 % Normal 20.5-60.0 [facility] Comment on above: Performed By: #### C VDTBH #### [facility] [address] [place] [address] Dr. Reema Mireles MANUAL DIFF REQ NO Normal [facility] Comment on above: Performed By: #### C VDTBH #### [facility] [address] [place] [address] Dr. Reema Mireles MCH (RBC) [Entitic mass] 30.6 pg Normal 26.7-34.0 [facility] Comment on above: Performed By: #### C VDTBH #### [facility] [address] [place] [address] Dr. Reema Mireles MCHC (RBC) [Mass/Vol] 35.0 g/dL Normal 29.9-35.2 [facility] Comment on above: Performed By: #### C VDTBH #### [facility] [address] [place] [address] Dr. Reema Mireles MCV (RBC) [Entitic vol] 87.4 fL Normal 81.0-99.0 [facility] Comment on above: Performed By: #### C VDTBH #### [facility] [address] [place] [address] Dr. Reema Mireles MONO # 0.7 103/ul Normal 0.3-0.8 [facility] Comment on above: Performed By: #### C VDTBH #### [facility] [address] [place] [address] Dr. Reema Mireles Monocytes/100 WBC (Bld) 8.2 % Normal 1.7-12.0 [facility] Comment on above: Performed By: #### C VDTBH #### [facility] [address] [place] [address] Dr. Reema Mireles NEUT # 5.5 103/ul Normal 1.4-6.5 [facility] Comment on above: Performed By: #### C VDTB #### [facility] [address] [place] [address] Dr. Reema Mireles Neutrophils/100 WBC (Bld) 68.7 % Normal 43.0-75.0 [facility] Comment on above: Performed By: #### C VDTBH #### [facility] [address] [place] [address] Dr. Reema Mireles Platelet mean volume (Bld) [Entitic vol] 10.1 fL Normal 9.5-13.5 [facility] Comment on above: Performed By: #### C VDTBH #### [facility] [address] [place] [address] Dr. Reema Mireles PLT 404 103/ul Normal 150-450 [facility] Comment on above: Performed By: #### C VDTBH #### [facility] [address] [place] [address] Dr. Reema Mireles RBC 4.38 106/ul Normal 4.20-5.40 [facility] Comment on above: Performed By: #### C VDTBH #### [facility] [address] [place], [place] [address] Dr. Reema Mireles WBC 8.0 103/ul Normal 4.0-11.0 [facility] Comment on above: Performed By: #### C VDTBH #### [facility] [address] [place], [place] [address] HEAD WO CONon [...] AURELIA CARLOS Date: 2022-04-13 16:29 Normal [facility] Discharge Instructionson Discharge Instructions [id number] #1.00CD:127 Normal [facility] ED Note-Physicianon 04-13-20 ED Note-Physician Basic Information Time Seen: Lata Hardy M.D. 04/12/2022 19:56 Chief Complaint Pt. presents to the ed with c/o headache and vertigo since thursday. Pt. was seen [facility] and started on prednisone. pt. stopped taking [...] The patient states she was seen at [facility] discharged home. She went to urgent [...] neurological deficit. She has been seen at [facility] and started on prednisone. Possible her [...] ADRYAN MARIE In 3 days 04/15/[address] [place] [id number] (1) Additional Instructions: Return to the [...] 2 Bilirubin Ql (U) Negative Normal NEGATIVE [facility] Comment on above: Performed By: #### P REGU, ERUR #### [facility] [address] [place] [address] Dr. Reema Mireles Clarity (U) CLEAR Normal CLEAR [facility] Comment on above: Performed By: #### P REGU, ERUR #### [facility] [address] [place] [address] Dr. Reema Mireles Color (U) LT. YELLOW Normal YELLOW [facility] Comment on above: Performed By: #### P REGU, ERUR #### [facility] [address] [address] [address] Reema ELIZALDE A micrscopic examination will be performed if indicated. Normal [facility] Comment on above: Performed By: #### P REGU, ERUR #### [facility] [address] [place] [address] Dr. Reema Mireles Glucose Ql (U) Negative Normal NEGATIVE [facility] Comment on above: Performed By: #### P REGU, ERUR #### [facility] [address] [place] [address] Dr. Reema Mireles Hemoglobin Ql (U) Negative Normal NEGATIVE [facility] Comment on above: Performed By: #### P REGU, ERUR #### [facility] [address] [place] [address] Dr. Reema Mireles Ketones Ql (U) Negative Normal NEGATIVE [facility] Comment on above: Performed By: #### P REGU, ERUR #### [facility] [address] [place] [address] Dr. Reema Mireles LEUKOCYTES Negative Normal NEGATIVE [facility] Comment on above: Performed By: #### P REGU, ERUR #### [facility] [address] [place] [address] Dr. Reema Mireles Nitrite Ql (U) Negative Normal NEGATIVE [facility] Comment on above: Performed By: #### P REGU, ERUR #### [facility] [address] [place] [address] Dr. Reema Mireles pH (U) 6.5 [pH] Normal 5-9 [facility] Comment on above: Performed By: #### P REGU, ERUR #### [facility] [address] [place] [address] Dr. Reema Mireles SPEC GRAVITY 1.005 Normal 1.005-<=1.025 [facility] Comment on above: Performed By: #### P REGU, ERUR #### [facility] [address] [place] [address] Dr. Reema Mireles UA PROTEIN Negative Normal NEGATIVE/ TRACE [facility] Comment on above: Performed By: #### P REGU, ERUR #### [facility] [address] [place] [address] Dr. Reema Mireles UR MICRO IND NOT INDICATED Normal [facility] Comment on above: Performed By: #### P REGU, ERUR #### [facility] [address] [place] [address] Dr. Reema Mireles Urobilinogen Qn (U) 0.2 {Renny'U}/dL Normal 0.2 - 1. 0 [facility] Comment on above: Performed By: #### P REGU, ERUR #### [facility] [address] [address] [address] Reema Mireles URon 04-13-2022 , QUAL Negative Normal NEGATIVE [facility] Comment on above: Performed By: #### P REGU, ERUR #### [facility] [address] [address] [address] Reema Mireles PROF CHEM 8 (BAS METB)on Anion gap [Moles/Vol] 14.0 mmol/L Normal [facility] Comment on above: Performed By: #### B MP, TSH #### [facility] [address] [address] [address] Reema Mireles Calcium [Mass/Vol] 9.2 mg/dL Normal 8.5-10.1 [facility] Comment on above: Performed By: #### B MP, TSH #### [facility] [address] [address] [address] Reema Mireles Chloride [Moles/Vol] 102 mmol/L Normal 98-107 [facility] Comment on above: Performed By: #### B MP, TSH #### [facility] [address] [address] [address] Reema Mireles CO2 [Moles/Vol] 26.3 mmol/L Normal 21.0-32.0 [facility] Comment on above: Performed By: #### B MP, TSH #### [facility] [address] [address] [address] Reema Mireles Creatinine [Mass/Vol] 0.65 mg/dL Normal 0.55-1.02 [facility] Comment on above: Performed By: #### B MP, TSH #### [facility] [address] [address] [address] Reema Mireles EGFR-AF COMORAN >60 Normal >=60 [facility] Comment on above: Performed By: #### B MP, TSH #### [facility] [address] [place] [address] Dr. Reema Mireles EGFR-NON AF COMORAN >60 Normal >=60 [facility] Comment on above: Performed By: #### B MP, TSH #### [facility] [address] [address] [address] Reema Mireles Glucose [Mass/Vol] 92 mg/dL Normal 74-106 [facility] Comment on above: Performed By: #### B MP, TSH #### [facility] [address] [address] [address] Reema Mireles Potassium [Moles/Vol] 3.3 mmol/L Critically low 3.5-5.1 [facility] Comment on above: Performed By: #### B MP, TSH #### [facility] [address] [address] [address] Reema Mireles Sodium [Moles/Vol] 139 mmol/L Normal 136-145 [facility] Comment on above: Performed By: #### B MP, TSH #### [facility] [address] [address] [address] Reema Mireles Urea nitrogen [Mass/Vol] 8.0 mg/dL Normal 7.0-18.0 [facility] Comment on above: Performed By: #### B MP, TSH #### [facility] [address] [address] [address] Reema Mireles Urea nitrogen/Creatinine [Mass ratio] 12.3 mg/mg Normal [facility] Comment on above: Performed By: #### B MP, TSH #### [facility] [address] [address] [address] Reema Mireles TSHon 04-13-2022 TSH 1.293 uIU/mL Normal 0.358-3.740 [facility] Comment on above: Performed By: #### B MP, TSH #### [facility] [address] [address] [address] Reema Mireles Consent for Treatmenton 03-28 Consent for Treatment [id number] Normal [facility] ED Clinical Summaryon 2021 ED Clinical Summary [address] [address] ED Clinical Summary Person Information Name: JUANPABLO CHAPARRO [facility] Age[facility] 21 Years : 2000 Sex: Female Language: Sinhala PCP: ADRYAN MARIE MD Marital Status: Single Phone: [phone] Visit Id: Visit Reason: Vertigo - recurrent; [...] 21:07:38 04/12/2022 21:07:38 04/12/2022 21:07:38 ADDRESS: [address] [place] [phone] PHYS DOC NOTES: MEDICAL INFORMATION: Prescriptions Given: PATIENT EDUCATION INFORMATION: Instructions: General Headache Without Cause; Vertigo Follow up: With: Address: When: ADRYAN AMINJAILENE [address] [place], [place] [id number] [employer] (1) In 3 days 04/15/2022 Comments: Return [...] you feel dizzy. General instructions ? Take pmcd-sqf-zemlumt and prescription medicines only as told by [...] 06/24/2006 Document Revised: 08/08/2019 Document Reviewed: 08/08/2019 [employer] Patient Education ? 2020 [employer] Neurology General Headache Without Cause A [...] with your condition: Managing pain ? Take klrg-svg-dtbitcm and prescription medicines only as told by [...] ED Patient Summaryon 022 ED Patient Summary [address] [id number] Patient Discharge Instructions Person Information Name: JUANPABLO CHAPARRO Age: 21 Years Arrival Date: 04/12/2022 19:22:40 Discharge Diagnosis: 1:Vertigo; 2:Headache Primary Care Physician: ADRYAN MARIE MD Provider Information Primary Provider: Lata Hardy M.D. Advanced Contact Lens Flashing Puncher:None The exam and treatment you received in the Emergency Department were for an urgent problem and are not intended as complete care. It is important that you follow up with a doctor, nurse practitioner, or physician?s assistant store manager sales for ongoing care. If your symptoms become worse or you do not improve as expected and you are unable to reach your usual health care provider, you should return to the Emergency Department. We are available 24 hours a day. JUANPABLO CHAPARRO has been given the following list of patient education materials, prescriptions and follow-up instructions: Follow-up Instructions: With: Address: When: ADRYAN MARIE [address] [place] [address] [employer] (1) In 3 days 04/15/2022 Comments: Return [...] opioids can be used to help relieve ntfhjjej-xu-lvtavo pain and are often prescribed following a [...] 04-09-2022 BASO # 0.1 103/ul Normal 0.0-0.1 [facility] Comment on above: Performed By: #### B MP, TSH #### [facility] [address] [address] [address] Reema Mireles Basophils/100 WBC (Bld) 0.5 % Normal 0.2-2.0 [facility] Comment on above: Performed By: #### B MP, TSH #### [facility] [address] [place] [address] Dr. Reema Mireles EO # 0.1 103/ul Normal 0.0-0.7 [facility] Comment on above: Performed By: #### B MP, TSH #### [facility] [address] [place] [address] Dr. Reema Mireles Eosinophils/100 WBC (Bld) 1.0 % Normal 0.9-7.0 [facility] Comment on above: Performed By: #### B MP, TSH #### [facility] [address] [place] [address] Dr. Reema Mireles Erythrocyte distribution width (RBC) [Ratio] 11.7 % Normal 11.0-15.0 [facility] Comment on above: Performed By: #### B MP, TSH #### [facility] [address] [place] [address] Dr. Reema Mireles Hematocrit (Bld) [Volume fraction] 37.2 % Normal 36.0-48.0 [facility] Comment on above: Performed By: #### B MP, TSH #### [facility] [address] [place] [address] Dr. Reema Mireles Hemoglobin (Bld) [Mass/Vol] 12.8 g/dL Normal 12.0-16.0 [facility] Comment on above: Performed By: #### B MP, TSH #### [facility] [address] [place] [address] Dr. Reema Mireles IG # 0.02 10e3/ul Normal 0.00-0.03 [facility] Comment on above: Performed By: #### B MP, TSH #### [facility] [address] [place] [address] Dr. Reema Mireles IG % 0.2 % Normal 0.0-0.5 [facility] Comment on above: Performed By: #### B MP, TSH #### [facility] [address] [place] [address] Dr. Reeam Mireles LYMPH # 1.8 103/ul Normal 1.2-3.8 [facility] Comment on above: Performed By: #### B MP, TSH #### [facility] [address] [place] [address] Dr. Reema Mireles Lymphocytes/100 WBC (Bld) 19.0 % Critically low 20.5-60.0 [facility] Comment on above: Performed By: #### B MP, TSH #### [facility] [address] [place] [address] Dr. Reema Mireles MANUAL DIFF REQ NO Normal [facility] Comment on above: Performed By: #### B MP, TSH #### [facility] [address] [place] [address] Dr. Reema Mireles MCH (RBC) [Entitic mass] 30.4 pg Normal 26.7-34.0 [facility] Comment on above: Performed By: #### B MP, TSH #### [facility] [address] [place] [address] Dr. Reema Mireles MCHC (RBC) [Mass/Vol] 34.4 g/dL Normal 29.9-35.2 [facility] Comment on above: Performed By: #### B MP, TSH #### [facility] [address] [place] [address] Dr. Reema Mireles MCV (RBC) [Entitic vol] 88.4 fL Normal 81.0-99.0 [facility] Comment on above: Performed By: #### B MP, TSH #### [facility] [address] [place] [address] Dr. Reema Mireles MONO # 0.7 103/ul Normal 0.3-0.8 [facility] Comment on above: Performed By: #### B MP, TSH #### [facility] [address] [place] [address] Dr. Reema Mireles Monocytes/100 WBC (Bld) 6.8 % Normal 1.7-12.0 [facility] Comment on above: Performed By: #### B MP, TSH #### [facility] [address] [place] [address] Dr. Reema Mireles NEUT # 7.0 103/ul Critically high 1.4-6.5 [facility] Comment on above: Performed By: #### B MP, TSH #### [facility] [address] [address] [address] Reema Mireles Neutrophils/100 WBC (Bld) 72.5 % Normal 43.0-75.0 [facility] Comment on above: Performed By: #### B MP, TSH #### [facility] [address] [address] [address] Reema Mireles Platelet mean volume (Bld) [Entitic vol] 10.3 fL Normal 9.5-13.5 [facility] Comment on above: Performed By: #### B MP, TSH #### [facility] [address] [address] [address] Reema Mireles PLT 358 103/ul Normal 150-450 [facility] Comment on above: Performed By: #### B GURPREET, TSH #### [facility] [address] [place] [address] Dr. Reema Mireles RBC 4.21 106/ul Normal 4.20-5.40 [facility] Comment on above: Performed By: #### B GURPREET, TSH #### [facility] [address] [address] [address] Reema iMreles WBC 9.7 103/ul Normal 4.0-11.0 [facility] Comment on above: Performed By: #### B MP, TSH #### [facility] [address] [address] [address] Reema Mireles CULTURE BLOODon 04-09-2022 Microscopic examination of blood, culture Culture Observations: NO GROWTH AT 5 DAYS. Normal [facility] Comment on above: Performed By: #### B MP, TSH #### [facility] [address] [address] [address] Reema Mireles ER URINE PROFILEon 2 Bilirubin Ql (U) Negative Normal NEGATIVE [facility] Comment on above: Performed By: #### B MP, TSH #### [facility] [address] [address] [address] Reema Mireles Clarity (U) CLEAR Normal CLEAR [facility] Comment on above: Performed By: #### B MP, TSH #### [facility] [address] [place] [address] Dr. Reema Mireles Color (U) LT. YELLOW Normal YELLOW [facility] Comment on above: Performed By: #### B MP, TSH #### [facility] [address] [place] [address] Dr. Reema ELIZALDE A micrscopic examination will be performed if indicated. Normal [facility] Comment on above: Performed By: #### B MP, TSH #### [facility] [address] [place] [address] Dr. Reema Mireles Glucose Ql (U) Negative Normal NEGATIVE [facility] Comment on above: Performed By: #### B MP, TSH #### [facility] [address] [place] [address] Dr. Reema Mireles Hemoglobin Ql (U) TRACE-INTACT Abnormal NEGATIVE [facility] Comment on above: Performed By: #### B MP, TSH #### [facility] [address] [place] [address] Dr. Reema Mireles Ketones Ql (U) Negative Normal NEGATIVE [facility] Comment on above: Performed By: #### B MP, TSH #### [facility] [address] [place] [address] Dr. Reema Mireles LEUKOCYTES Negative Normal NEGATIVE [facility] Comment on above: Performed By: #### B MP, TSH #### [facility] [address] [place] [address] Dr. Reema Mireles Nitrite Ql (U) Negative Normal NEGATIVE [facility] Comment on above: Performed By: #### B MP, TSH #### [facility] [address] [place] [address] Dr. Reema Mireles pH (U) 5.5 [pH] Normal 5-9 [facility] Comment on above: Performed By: #### B MP, TSH #### [facility] [address] [place] [address] Dr. Reema Mireles SPEC GRAVITY <=1.005 Abnormal 1.005-<=1.025 [facility] Comment on above: Performed By: #### B MP, TSH #### [facility] [address] [address] [address] Reema Mireles UA PROTEIN Negative Normal NEGATIVE/ TRACE [facility] Comment on above: Performed By: #### B MP, TSH #### [facility] [address] [address] [address] Reema Mireles UR MICRO IND INDICATED Normal [facility] Comment on above: Performed By: #### B MP, TSH #### [facility] [address] [place] [address] Dr. Reema Mireles Urobilinogen Qn (U) 0.2 {Renny'U}/dL Normal 0.2 - 1. 0 [facility] Comment on above: Performed By: #### B MP, TSH #### [facility] [address] [place] [address] Dr. Reema Mireles LACTATE/LACTIC ACIDon 2021 Lactate [Moles/Vol] 2.2 mmol/L Critically high 0.4-1.9 [facility] Comment on above: Performed By: #### B MP, TSH #### [facility] [address] [place] [address] Dr. Reema Mireles URon 04-09-2022 , QUAL Negative Normal NEGATIVE [facility] Comment on above: Performed By: #### B MP, TSH #### [facility] [address] [place] [address] Dr. Reema Mireles PROF 14(COMP METB)on 022 Albumin [Mass/Vol] 4.5 g/dL Normal 3.4-5.0 [facility] Comment on above: Performed By: #### C MP #### [facility] [address] [place] [address] Dr. Reema Mireles Albumin/Globulin [Mass ratio] 1.3 {ratio} Normal [facility] Comment on above: Performed By: #### C MP #### [facility] [address] [address] [address] Reema Mireles ALP [Catalytic activity/Vol] 83 U/L Normal 46-116 [facility] Comment on above: Performed By: #### C MP #### [facility] [address] [address] [address] Reema Mireles ALT [Catalytic activity/Vol] 26 U/L Normal 14-59 [facility] Comment on above: Performed By: #### C MP #### [facility] [address] [address] [address] Reema Mireles Anion gap [Moles/Vol] 14.9 mmol/L Normal [facility] Comment on above: Performed By: #### C MP #### [facility] [address] [address] [address] Reema Mireles AST [Catalytic activity/Vol] 12 U/L Critically low 15-37 [facility] Comment on above: Performed By: #### C MP #### [facility] [address] [address] [address] Reema Mireles Bilirubin [Mass/Vol] 0.3 mg/dL Normal 0.2-1.0 [facility] Comment on above: Performed By: #### C MP #### [facility] [address] [address] [address] Reema Mireles Calcium [Mass/Vol] 9.6 mg/dL Normal 8.5-10.1 [facility] Comment on above: Performed By: #### C MP #### [facility] [address] [address] [address] Reema Mireles Chloride [Moles/Vol] 103 mmol/L Normal 98-107 [facility] Comment on above: Performed By: #### C MP #### [facility] [address] [address] [address] Reema Mireles CO2 [Moles/Vol] 24.4 mmol/L Normal 21.0-32.0 [facility] Comment on above: Performed By: #### C MP #### [facility] [address] [address] [address] Reema Mireles Creatinine [Mass/Vol] 0.87 mg/dL Normal 0.55-1.02 [facility] Comment on above: Performed By: #### C MP #### [facility] [address] [address] [address] Reema Mireles EGFR-AF COMORAN >60 Normal >=60 [facility] Comment on above: Performed By: #### C MP #### [facility] [address] [address] [address] Reema Mireles EGFR-NON AF COMORAN >60 Normal >=60 [facility] Comment on above: Performed By: #### C MP #### [facility] [address] [address] [address] Reema Mireles Globulin (S) [Mass/Vol] 3.5 g/dL Normal [facility] Comment on above: Performed By: #### C MP #### [facility] [address] [address] [address] Reema Mireles Glucose [Mass/Vol] 109 mg/dL Critically high 74-106 [facility] Comment on above: Performed By: #### C MP #### [facility] [address] [address] [address] Reema Mireles Potassium [Moles/Vol] 3.3 mmol/L Critically low 3.5-5.1 [facility] Comment on above: Performed By: #### C MP #### [facility] [address] [place] [address] Dr. Reema Mireles Protein [Mass/Vol] 8.0 g/dL Normal 6.4-8.2 [facility] Comment on above: Performed By: #### C MP #### [facility] [address] [address] [address] Reema Mireles Sodium [Moles/Vol] 139 mmol/L Normal 136-145 [facility] Comment on above: Performed By: #### C MP #### [facility] [address] [address] [address] Reema Mireles Urea nitrogen [Mass/Vol] 9.0 mg/dL Normal 7.0-18.0 [facility] Comment on above: Performed By: #### C MP #### [facility] [address] [address] [address] Reema Mireles Urea nitrogen/Creatinine [Mass ratio] 10.3 mg/mg Normal [facility] Comment on above: Performed By: #### C MP #### [facility] [address] [address] [address] Reema Mireles URINE MICROSCOPIC ONLYon BACTERIA NONE SEEN Normal NONE SEEN [facility] Comment on above: Performed By: #### B MP, TSH #### [facility] [address] [place] [address] Dr. Reema Mireles Bacteria identified Cx Nom (U) NOT INDICATED Normal [facility] Comment on above: Performed By: #### B MP, TSH #### [facility] [address] [place] [address] Dr. Reema Mireles CAST NONE SEEN Normal NONE SEEN [facility] Comment on above: Performed By: #### B MP, TSH #### [facility] [address] [place] [address] Dr. Reema Mireles Crystals LM Nom (Urine sed) NONE SEEN Normal NONE SEEN [facility] Comment on above: Performed By: #### B MP, TSH #### [facility] [address] [place] [address] Dr. Reema Mireles Epithelial cells LM Ql (Urine sed) RARE Normal NONE SEEN /RARE [facility] Comment on above: Performed By: #### B MP, TSH #### [facility] [address] [place] [address] Dr. Reema Mireles MUCOUS NONE SEEN Normal NONE SEEN [facility] Comment on above: Performed By: #### B MP, TSH #### [facility] [address] [place] [address] Dr. Reema Mireles RBC 0-2 Normal 0-2 [facility] Comment on above: Performed By: #### B MP, TSH #### [facility] [address] [place] [address] Dr. Reema Mireles WBC NONE SEEN Normal NONE SEEN [facility] Comment on above: Performed By: #### B MP, TSH #### [facility] [address] [place] [address] Dr. Reema Mireles CBC AUTO DIFFon 10-25-2021 BASO # 0.0 103/ul Normal 0.0-0.1 [facility] Comment on above: Performed By: #### C BC #### [facility] [address] [place] [address] Dr. Reema Mireles Basophils/100 WBC (Bld) 0.6 % Normal 0.2-2.0 [facility] Comment on above: Performed By: #### C BC #### [facility] [address] [place] [address] Dr. Reema Mireles EO # 0.1 103/ul Normal 0.0-0.7 [facility] Comment on above: Performed By: #### C BC #### [facility] [address] [place] [address] Dr. Reema Mireles Eosinophils/100 WBC (Bld) 1.8 % Normal 0.9-7.0 [facility] Comment on above: Performed By: #### C BC #### [facility] [address] [place] [address] Dr. Reema Mireles Erythrocyte distribution width (RBC) [Ratio] 11.9 % Normal 11.0-15.0 [facility] Comment on above: Performed By: #### C BC #### [facility] [address] [place] [address] Dr. Reema Mireles Hematocrit (Bld) [Volume fraction] 38.1 % Normal 36.0-48.0 [facility] Comment on above: Performed By: #### C BC #### [facility] [address] [place] [address] Dr. Reema Mireles Hemoglobin (Bld) [Mass/Vol] 13.1 g/dL Normal 12.0-16.0 [facility] Comment on above: Performed By: #### C BC #### [facility] [address] [place] [address] Dr. Reema Mireles IG # 0.01 10e3/ul Normal 0.00-0.03 [facility] Comment on above: Performed By: #### C BC #### [facility] [address] [place] [address] Dr. Reema Mireles IG % 0.1 % Normal 0.0-0.5 [facility] Comment on above: Performed By: #### C BC #### [facility] [address] [place] [address] Dr. Reema Mireles LYMPH # 1.9 103/ul Normal 1.2-3.8 [facility] Comment on above: Performed By: #### C BC #### [facility] [address] [place] [address] Dr. Reema Mireles Lymphocytes/100 WBC (Bld) 27.8 % Normal 20.5-60.0 [facility] Comment on above: Performed By: #### C BC #### [facility] [address] [place] [address] Dr. Reema Mireles MANUAL DIFF REQ NO Normal [facility] Comment on above: Performed By: #### C BC #### [facility] [address] [place] [address] Dr. Reema Mireles MCH (RBC) [Entitic mass] 30.5 pg Normal 26.7-34.0 [facility] Comment on above: Performed By: #### C BC #### [facility] [address] [place] [address] Dr. Reema Mireles MCHC (RBC) [Mass/Vol] 34.4 g/dL Normal 29.9-35.2 [facility] Comment on above: Performed By: #### C BC #### [facility] [address] [place] [address] Dr. Reema Mireles MCV (RBC) [Entitic vol] 88.8 fL Normal 81.0-99.0 [facility] Comment on above: Performed By: #### C BC #### [facility] [address] [place] [address] Dr. Reema Mireles MONO # 0.8 103/ul Normal 0.3-0.8 [facility] Comment on above: Performed By: #### C BC #### [facility] [address] [place] [address] Dr. Reema Mireles Monocytes/100 WBC (Bld) 11.2 % Normal 1.7-12.0 [facility] Comment on above: Performed By: #### C BC #### [facility] [address] [place] [address] Dr. Reema Mireles NEUT # 4.0 103/ul Normal 1.4-6.5 [facility] Comment on above: Performed By: #### C BC #### [facility] [address] [place] [address] Dr. Reema Mireles Neutrophils/100 WBC (Bld) 58.5 % Normal 43.0-75.0 [facility] Comment on above: Performed By: #### C BC #### [facility] [address] [place] [address] Dr. Reema Mireles Platelet mean volume (Bld) [Entitic vol] 10.0 fL Normal 9.5-13.5 [facility] Comment on above: Performed By: #### C BC #### [facility] [address] [place] [address] Dr. Reema Mrieles PLT 361 103/ul Normal 150-450 [facility] Comment on above: Performed By: #### C BC #### [facility] [address] [place] [address] Dr. Reema Mireles RBC 4.29 106/ul Normal 4.20-5.40 [facility] Comment on above: Performed By: #### C BC #### [facility] [facility] [address] [place] [address] Dr. Reema Mireles WBC 6.8 103/ul Normal 4.0-11.0 [facility] Comment on above: Performed By: #### C BC #### [facility] [address] [place] [address] Dr. Reema Mireles PREG QUANT HCGon 10-25-2021 HCG QUANT 1 mIU/mL Normal [facility] Comment on above: Performed By: #### P REGQNT #### [facility] [address] [place] [address] Dr. Reema Mireles HCG RANGE SEE BELOW Normal [facility] Comment on above: Result Comment: 5-50 0-1 WEEK 40-300 1-2 WEEKS 100-1,000 2-3 WEEKS 500-6,000 3-4 WEEKS 5,000-200,000 1-2 MONTHS 10,000-100,000 2-3 MONTHS 3,000-50,000 2ND TRIMESTER 1,000-50,000 3RD TRIMESTER Performed By: #### P REGQNT #### [facility] [address] [address] [address] Reema Mireles Covid-19 PCR ([facility])on 09-29 SARS-CoV-2 (COVID-19) RNA FRANKIE+probe Ql (Unsp spec) Not detected Normal NOT DETECTED [facility] Comment on above: Result Comment: This test is not yet approved or cleared by the [place] FDA. When there are no FDA-approved or cleared tests available, and other criteria are met, FDA can make tests available under an emergency access mechanism called an Emergency Use Authorization (EUA). The EUA for this test is supported by the Lead Custodian of Health and Human Service's (HHS's) declaration [...] SARS-CoV-2. Performed By: #### C VDTB #### [facility] [address] [place], [place] [address] Dr. Reema Mireles Vital Signs Date Time Vital Sign Value Performing Clinician Facility 11-12-2023 14:15-0500 Body weight 108.86 kg [employer] Work Phone: [facility] 11-12-2023 14:15-0500 Diastolic blood pressure 72 mm[Hg] [employer] Work Phone: [facility] 11-12-2023 14:15-0500 Systolic blood pressure 122 mm[Hg] Devan Tello DO Work Phone: [facility] 04-12-2022 21:04-0400 Diastolic blood pressure 84 mm[Hg] [facility] 04-12-2022 21:04-0400 Heart rate 82 /min [facility] 04-12-2022 21:04-0400 Respiratory rate 16 /min [facility] 04-12-2022 21:04-0400 SaO2% (BldA) [Mass fraction] 98 % [facility] 04-12-2022 21:04-0400 Systolic blood pressure 120 mm[Hg] [facility] 04-12-2022 20:32-0400 gluc 80 mg/dL [facility] Comment on above: Result Comment: not taken due to pt refu jimmie of any injection 04-12-2022 20:32-0400 gluc [facility] 04-12-2022 19:25-0400 Body temperature 99.32 [degF] [facility] 04-12-2022 19:25-0400 Diastolic blood pressure 84 mm[Hg] [facility] 04-12-2022 19:25-0400 Heart rate 90 /min [facility] 04-12-2022 19:25-0400 Respiratory rate 18 /min [facility] 04-12-2022 19:25-0400 SaO2% (BldA) [Mass fraction] 98 % [facility] 04-12-2022 19:25-0400 Systolic blood pressure 118 mm[Hg] [facility] 04-09-2022 12:20-0400 Body height 165.1 cm Deonna Back Other [facility] Other 04-09-2022 12:20-0400 Body mass index (BMI) [Ratio] 35.61 kg/m2 Deonna Nazanin Other [facility] Other 04-09-2022 12:20-0400 Body temperature 98.4 [degF] Deonna Nazanin Other [facility] Other 04-09-2022 12:20-0400 Body weight 97.07 kg Deonna Nazanin Other [facility] Other 04-09-2022 12:20-0400 Diastolic blood pressure 83 mm[Hg] Deonna Nazanin Other [facility] Other 04-09-2022 12:20-0400 Respiratory rate 18 /min Deonna Nazanin Other [facility] Other 04-09-2022 12:20-0400 SaO2% (BldA) [Mass fraction] 99 % Deonna Nazanin Other [facility] Other 04-09-2022 12:20-0400 Systolic blood pressure 135 mm[Hg] Deonna Nazanin Other [facility] Other 04-02-2022 19:00-0400 Body height 165.1 cm Deonna Nazanin Other [facility] Other 04-02-2022 19:00-0400 Body mass index (BMI) [Ratio] 35.71 kg/m2 Deonna Nazanin Other [facility] Other 04-02-2022 19:00-0400 Body temperature 98.1 [degF] Deonna Nazanin Other [facility] Other 04-02-2022 19:00-0400 Body weight 97.34 kg Deonna Back Other [facility] Other 04-02-2022 19:00-0400 Diastolic blood pressure 83 mm[Hg] Deonna Back Other [facility] Other 04-02-2022 19:00-0400 Respiratory rate 18 /min Deonna Back Other [facility] Other 04-02-2022 19:00-0400 SaO2% (BldA) [Mass fraction] 100 % Deonna Back Other [facility] Other 04-02-2022 19:00-0400 Systolic blood pressure 134 mm[Hg] Deonna Back Other [facility] Other Encounters Encounter Date Encounter Type Care [...] 04-12-2022 End: 04-12-2022 [facility] Start: 04-10-2022 End: 04-10-2022 ambulatory Deonna Back Other [facility] Other Start: 04-10-2022 Telephone encounter Deonna Back [facility] Start: 04-09-2022 End: 04-09-2022 ambulatory Deonna Back Other [facility] Other Start: 04-09-2022 Office outpatient vi sit 15 minutes Deonna Back [facility] Start: 04-09-2022 End: 04-09-[address] LUIS ANTONIO SUTTON Facility:[facility] Start: 04-02-2022 (URG) Urgent Care Visit Deonna pace [facility] Start: 04-02-2022 End: 04-02-2022 ambulatory Deonna Back Other [facility] [employer] Other Start: 10-25-2021 End: 10-25-[address] ADRYAN MARIE Facility:[facility] Start: 10-24-2021 Encounter for preprocedural laboratory examination DR DEVAN TELLO [facility] Start: 10-22-2021 End: 10-23-[address] ADRYAN MARIE Facility:[facility] Start: 10-22-2021 End: 10-23-2021 Encounter for preprocedural laboratory examination DR ADRYAN MARIE Facility:[facility] Start: 10-19-2021 Encounter for other preprocedural examination DR DEVAN TELLO [facility] Start: 10-17-2021 End: 10-18-[address] ADYRAN MARIE Facility:[facility] Start: 10-17-2021 End: 10-18-2021 Encounter [...] [facility] [address] [place] [address] Cydney Leos PA [address] [place] [address] [facility] Start: 11-26-2023 End: 11-26-2023 Professional / ancillary services management 11/26/2023 10:30 AM EST Ancillary Procedure [facility] [address] [place] [address] [facility] Start: 11-12-2023 End: 11-12-2024 US for US OB SCAN FOR GROWTH Imaging Routine Excessive growth affecting management of in third trimester, single or unspecified fetus Expected: 11/12/2023 (Approximate), Expires: 11/12/2024 [facility] Work Phone: Comment on above: Expected: 11/12/2023 (Approximate), Expires: 11/12/2024 Start: 11-12-2023 End: 11-12-2023 Patient encounter procedure 11/12/2023 10:50 AM EST Routine [facility] [address] [place] [id number] Devan Tello, [address] [place], [place] [id number] [facility] Payers Date Payer Category Payer Unknown [facility] [employer] [id number] 2023-Present [address] [place] [address] [id number] 2023 Medicaid [id number] 2001 Unknown [id number] 2.16.840.1.318172.3.579.2. 593 2001 Unknown [id number] 2.16.840.1.263483.3.579.2. 593 2001 Unknown [id number] 2.16.840.1.762935.3.579.2. 593 2001 Unknown [id number] 2.16.840.1.228095.3.579.2. 593 2001 Unknown [id number] 2.16.840.1.439971.3.579.2. 593 2001 Unknown [id number] 2.16.840.1.792843.3.579.2. 593 2001 Unknown [id number] 2.16.840.1.423107.3.579.2. 593 2001 Unknown [id number] 2.16.840.1.186531.3.579.2. 593 2001 Unknown [id number] 2.16.840.1.717415.3.579.2. 593 2001 Unknown [id number] 2.16.840.1.986684.3.579.2. 593 2001 Unknown [id number] 2.16.840.1.692024.3.579.2. 593 2001 Unknown [id number] 2.16.840.1.777158.3.579.2. 1259 2001 Unknown [id number] 2.16.840.1.799488.3.579.2. 1259 2001 Unknown [id number] 2.16.840.1.089535.3.579.2. 1259 2001 Unknown [id number] 2.16.840.1.908584.3.579.2. 1259 2001 Unknown [id number] 2.16.840.1.945106.3.579.2. 1259 2001 Unknown [id number] 2.16.840.1.877533.3.579.2. 1259 2001 Unknown [id number] 2.16.840.1.412522.3.579.2. 1259 2001 Unknown [id number] 2.16.840.1.226750.3.579.2. 1259 1958 [facility] [id number] 2.16.840.1.138701.19 Social History Date Type Detail Facility Unknown if ever smoked [facility] Other Sex Assigned At [facility] Other Tobacco smoking status No Smoking Status Entered [facility] Start: 06-20-2023 Tobacco smoking status MEIS Tobacco smoking consumption unknown [facility] Start: 10-15-2023 Alcohol intake Lifetime non-d hermes (finding) [facility] Start: 06-20-2023 Tobacco Comment Current smoker (frequency unknown) [facility] Start: 05-06-2023 [facility] Start: 2000 Sex Assigned At Not on file N [facility] Healthcare Goals Date Patient Goal Desired Activity /State Personal health goal Functional Status Date Assessment Result Facility 04-12-2022 Functional Status N/A [facility] History of Present illness Narrative 11-12-2023 [...] help with your condition: Managing pain Take xwyw-zed-xyodcmb and prescription medicines only as told by [...] 09/14/2006 Document Revised: 04/04/2019 Document Reviewed: 04/04/2019 [employer] Patient Education 2020 [employer] 04/12/2022 21:07:38 Vertigo Vertigo Vertigo is [...] if you feel dizzy. General instructions Take vsuq-whi-qelusxr and prescription medicines only as told by [...] 06/24/2006 Document Revised: 08/08/2019 Document Reviewed: 08/08/2019 [employer] Patient Education 2020 [employer] Follow Up Care 04/12/2022 19:25:17 With:ADRYAN MARIE Address: [address] [place] [phone] (1) When:04/15/2022 20:55:24 Comments:Return to the emergency room if her headache gets worse, vertigo becomes persistent or any new symptoms [facility] Evaluation note 07-13-2022 Note Date & [...] She was prescribed Zofran with no improvement. [facility] Other Evaluation note 04-02-2022 Note Date & [...] 3 days. No swimming for a week [facility] Other Clinical Note 10-25-2021 Note Date & Type Note Facility 10-25-2021 Note OPERATIVE NOTE PROCEDURE: Diagnostic laparoscopy. PREOPERATIVE DIAGNOSIS: Pelvic pain, dyspareunia dysmenorrhea. POSTOPERATIVE DIAGNOSIS: Pelvic pain, dyspareunia dysmenorrhea. ANESTHESIA: General. SURGEON: Devan Tello D.O. ORANGE GROWER: JAE Worley URINE OUTPUT: Yellow and clear. [...] taken to Recovery Room in stable condition. [facility] Signed and Approved by: DR DEVAN TELLO . 11/01/2021 17:31:00 [facility] Evaluation + Plan note Note Date & Type Note Facility Evaluation + Plan note No data available for this section [facility] Evaluation note Note Date & Type Note Facility Evaluation note No Information [facility] [employer] Other Evaluation note Note Date & [...] endometriosis Hospitalization History RSV as a baby [facility] Other Progress note Note Date & Type Note Facility Progress note No data available for this section [facility] Summary Purpose Family History No Family History Records FoundNo Family History Records FoundNo Family History Records Found Advance Directives No Advanced Directives Records FoundNo Advanced Directives Records FoundNo Advanced Directives Records Found Additional Source Comments REASON FOR VISIT (unrecogniz ed section and content) Reason Comments Routine Visit Care Team (unrecognized sect ion and content) Diabetes Manager Relationship Specialty Start Date End Date Adryan Marie MD [address] [place] [address] PCP - General Family Medicine 06/19/23 Diabetes Manager Relationship Specialty Start Date End Date dAryan Marie MD [address] [place] [address] PCP - General Family Medicine 06/19/23 INFORMATION SOURCE (unrecogn ized section and content) DATE CREATED AUTHOR 04/26/2022 [facility] DATE CREATED AUTHOR AUTHOR'S ORGANIZ ATION 09/19/2022 [facility] DATE CREATED AUTHOR AUTHOR'S ORGANIZ ATION 01/06/2024 [facility] FOR RECORDS PERTAINING TO PATIENTS [...] BE BASED ON THE PRIMARY CLINICAL RECORDS. [facility] [employer] [facility]. provides no warranty or guarantee of the accuracy or completeness of information in this document.
--- NOTE | 2024-01-13 09:58 | US_ITS ---
[address] [address] Patient Name: JUANPABLO CHAPARRO MRN: [id number] date: 2000 Sex: F Assigned Patient Location: [facility] Current Patient Location: Accession/Order Number: [id number] Exam Date: 01/13/2024 10:00 Report Date: 01/13/2024 11:39 At the request of: DEVAN GEORGE Procedure: US OB BPP w non-stress EXAMINATION: US OB BPP w non-stress HISTORY: EXCESSIVE GROWTH O36.63X0 COMPARISON: No relevant comparison available. TECHNIQUE: Ultrasound biophysical profile was performed in the radiology department. FINDINGS: BREATHING MOVEMENTS: 2.0 GROSS BODY MOVEMENTS: 2.0 TONE: 2.0 QUALITATIVE AMNIOTIC FLUID VOLUME: 2.0 PRESENTATION: CEPHALIC HEART RATE: 150.0 bpm H.B./min AMNIOTIC FLUID VOLUME: 13.6 cm cm GESTATIONAL AGE: 38 weeks 0 days CONCLUSION: Total biophysical profile score: 8.0 Electronically authenticated by: ADRYAN PRESCOTT Date: 01/13/2024 11:39
[2024-01-13 10:40] VITALS: BP 130/76
== END 2024-01-13 11:05 | disposition home or self-care (01) ==
LOC: US 07:27 → FBC 09:58
PROVIDERS: PCP Family Medicine; Visit Provider Obstetrics & Gynecology
DX: O36.63X0 Maternal care for excessive fetal growth, third trimester, not applicable or unspecified (principal); Z3A.38 38 weeks gestation of pregnancy
CPT/HCPCS: 76816; 76818

== ENCOUNTER 2024-01-14 15:03 | Outpatient (OUT) | payer OTHER, SELFPAY ==
--- NOTE | 2024-01-14 15:08 | US_ITS ---
[address] [address] Patient Name: JUANPABLO CHAPARRO MRN: [id number] date: 2000 Sex: F Assigned Patient Location: [facility] Current Patient Location: [facility] Accession/Order Number: [id number] Exam Date: 01/14/2024 15:09 Report Date: 01/14/2024 15:57 At the request of: DEVAN GEORGE Procedure: US OB growth EXAMINATION: US OB growth HISTORY: LGA ; rapid change in growth percentile COMPARISON: Ultrasound OB growth 01/13/2024 FINDINGS: Heart Rate: 141.0 bpm Number: 1.0 Position: CEPHALIC Amniotic Fluid Volume: 11.8 cm Maximum Vertical Pocket: 5.5 cm BIOMETRY: BPD: 9.4 cm cm; 38 weeks 3 days; 80% HC: 34.6 cmcm; 40 weeks 0 days ; 76% AC: 37.7 cm cm; 41 weeks 5 days; >97% FL: 7.5 cm cm; 38 weeks 2 days; 57% EFW: 4074.2 grams; >97% FL/AC: 19.8 FL/BPD: 79.3 HC/AC: 0.9 GESTATIONAL AGE: Age by EDC: 38 weeks 1 days TOMASZ by EDC: 01/27/2024 Age by US: 39 weeks 4 days TOMASZ by US: 01/17/2024 US/US OB growth IMPRESSION: 1. Single live intrauterine with growth detailed above. 2. Estimated weight is greater than 97th percentile. Electronically authenticated by: WILEBRT CASIANO Date: 01/14/2024 15:57
== END 2024-01-14 15:04 | disposition home or self-care (01) ==
LOC: NOMS 15:03
PROVIDERS: PCP Family Medicine; Visit Provider Obstetrics & Gynecology
DX: O36.63X0 Maternal care for excessive fetal growth, third trimester, not applicable or unspecified (principal); Z3A.38 38 weeks gestation of pregnancy
CPT/HCPCS: 76816

== ENCOUNTER 2024-01-16 07:20 | Outpatient (OUT) | payer OTHER, SELFPAY ==
--- OUTSIDE RECORDS SUMMARY | 2024-01-15 23:37 | XMS_ITS | CCD ---
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 Name Role Phone Deonna Back Unavailable DEFJAILENE, ADRYAN Primary Care Physician [phone] LESLEY, DR LUIS ANTONIO Jorge Consulting Unavailable [...] Care Unavailable SUTTON, DR LUIS ANTONIO Jorge Attending Unavailable SUTTON, [...] Unavailable Defrance Adryan OBRIEN Primary Care Provider [phone] CYDNEY LEOS Attending Unavailable CYDNEY LEOS Attending Unavailable DEVAN TELLO Attending Unavailable CYDNEY LEOS Attending Unavailable DEVAN TELLO Attending Unavailable CYDNEY LEOS Attending Unavailable DEVAN TELLO Attending Unavailable CYDNEY LEOS Attending Unavailable DEVAN TELLO Attending Unavailable Allergies Allergy Classification Reported Allergen(s) Allergy Type Date of Onset Reaction(s) Facility (3 sources) Sulfacetamide Drug Allergy rash [facility] Other (1 source) Sulfonamides (Antibiotic); Translations: [sulfa drugs] Drug allergy Hyperpyrexia (finding) [facility] (1 source) Sulfonamides (Antibiotic) Drug allergy (disorder) 07-26-20 14 [facility] (3 sources) Sulfonamides (Antibiotic) Drug Intolerance [...] BY MOUTH EVERY MORNING 0 10/06/[address]-Rrd-WR-[place]-3 ( Gummies/DHA & FA) 0.4-32.5 MG chewable tablet (3 sources) Start: 06-19-2023 End: 06-18-2024 TA-Upy-DI-[place]-3 ( Gummies/DHA & FA) 0.4-32.5 MG chewable tablet Indications: Missed menses Chew 32.5 mg in the morning. 30 tablet 11 06/19/2023 06/18/2024 Active Completed/Discontinued Medications Medication Drug Class(es) Dates Sig (Normalized) Sig (Original) [id number] 200 actuat albuterol 0.09 mg/actuat metered dose [...] / neomycin 3.5 mg/ml / polymyxin b [id number] unt/ml otic suspension (3 sources) Aminoglycoside Antibacterial, Polymyxin-class Antibacterial, Corticosteroid Start: 04-02-2022 Neomycin-Polymyx in-HC [id number] 3 drops left ear Three times a [...] 10-24-2021 Unclassified (3 sources) OB Reminders Onset: 09-30-2023 09-30-2023 Past or Other Problems Problem Classification Problem [...] UA Negative Negative - 4(70) +++ mg/dL [facility] Blood, UA Negative Negative - 50 Cedric/mcL [facility] Clarity, UA Clear [facility] re Color, UA Yellow [facility] e Glucose, UA Negative Negative - 1999(110) ++++ mg/dL [facility] Interpretation and review of laboratory results Normal [facility] Ketones, UA Negative Negative - 160(16) ++++ mg/dL [facility] Leukocytes, UA Negative Negative - 500+++ Alessandro/mcL [facility] Nitrite, UA Negative Negative - Positive [facility] pH, UA 6.0 5 - 9 [facility] e Protein, UA Negative Negative - 1999(20) ++++ mg/dL [facility] Spec Grav, UA 1.020 1 - 1.03 [facility] Urobilinogen, UA 0.2 0.2 - 12 mg/dL [facility] e ALL CBC WITH AUTO DIFFon BASOPHILS ABSOLUTE AUTO 0.0 [facility] Basophils/100 WBC (Bld) 0.3 % 0.2 - 2.0 % [facility] Eosinophils/100 WBC (Bld) 1.0 % 0.9 - 7.0 % [facility] Erythrocyte distribution width (RBC) [Ratio] 12.5 % 11.0 - 15.0 % [facility] Hematocrit (Bld) [Volume fraction] 35.1 % Low 36.0 - 48.0 % [facility] Hem[facility] (Bld) [Mass/Vol] 11.7 g/dL Low 12.0 - 16.0 g/dL [facility] IMMATURE GRANULOCYTES ABS AUTO 0.08 High [facility] Immature granulocytes/100 WBC (Bld) 0.6 % High 0.0 - 0.5 % [facility] Interpretation and review of laboratory results Abnormal [facility] LYMPHOCYTES ABSOLUTE AUTO 1.6 [facility] Lymphocytes/100 WBC (Bld) 11.9 % Low 20.5 - 60.0 % [facility] MCH (RBC) [Entitic mass] 30.7 pg 26.7 - 34.0 pg [facility] MCHC (RBC) [Mass/Vol] 33.3 g/dL 29.9 - 35.2 g/dL [facility] MCV (RBC) [Entitic vol] 92.1 fL 81.0 - 99.0 fL [facility] MONOCYTES ABSOLUTE AUTO 0.8 [facility] Monocytes/100 WBC (Bld) 5.5 % 1.7 - 12.0 % [facility] NEUTROPHILS ABSOLUTE AUTO 11.1 High [facility] Neutrophils/100 WBC (Bld) 80.7 % High 43.0 - 75.0 % [facility] Platelet mean volume (Bld) [Entitic vol] 10.6 fL 9.5 - 13.[address] [facility] Health[facility] are TBH EO # 0.1 [facility] e [facility]H PLT 292 [facility] e [facility] RBC 3.[address] [facility] e [facility] WBC 13.[address] [facility] e [facility] e CBC AUTO DIFFon 09-14-2022 BASO # 0.0 103/ul Normal 0.0-0.1 [facility] Comment on above: Performed By: #### B GURPREET, TSH #### [facility] [address] [place] [address] Dr. Reema Mireles Basophils/100 WBC (Bld) 0.6 % Normal 0.2-2.0 [facility] Comment on above: Performed By: #### B GURPREET, TSH #### [facility] [address] [place] [address] Dr. Reema Mireles EO # 0.0 103/ul Normal 0.0-0.7 [facility] Comment on above: Performed By: #### B GURPREET, TSH #### [facility] [address] [place] [address] Dr. Reema Mireles Eosinophils/100 WBC (Bld) 0.6 % Critically low 0.9-7.0 [facility] Comment on above: Performed By: #### B GURPREET, TSH #### [facility] [address] [place] [address] Dr. Reema Mireles Erythrocyte distribution width (RBC) [Ratio] 11.9 % Normal 11.0-15.0 [facility] Comment on above: Performed By: #### B GURPREET, TSH #### [facility] [address] [place] [address] Dr. Reema Mireles Hematocrit (Bld) [Volume fraction] 37.8 % Normal 36.0-48.0 [facility] Comment on above: Performed By: #### B GURPREET, TSH #### [facility] [address] [place] [address] Dr. Reema Mireles Hemoglobin (Bld) [Mass/Vol] 13.5 g/dL Normal 12.0-16.0 [facility] Comment on above: Performed By: #### Inna VÁZQUEZ, TSH #### [facility] [address] [place] [address] Dr. Reema Mireles IG # 0.01 10e3/ul Normal 0.00-0.03 [facility] Comment on above: Performed By: #### B GURPREET, TSH #### [facility] [address] [place] [address] Dr. Reema Mireles IG % 0.2 % Normal 0.0-0.5 [facility] Comment on above: Performed By: #### B GURPREET, TSH #### [facility] [address] [place] [address] Dr. Reema Mireles LYMPH # 1.6 103/ul Normal 1.2-3.8 [facility] Comment on above: Performed By: #### B GURPREET, TSH #### [facility] [address] [place] [address] Dr. Reema Mireles Lymphocytes/100 WBC (Bld) 25.5 % Normal 20.5-60.0 [facility] Comment on above: Performed By: #### B GURPREET, TSH #### [facility] [address] [place] [address] Dr. Reema Mireles MANUAL DIFF REQ NO Normal [facility] Comment on above: Performed By: #### B GURPREET, TSH #### [facility] [address] [place] [address] Dr. Reema Mireles MCH (RBC) [Entitic mass] 30.9 pg Normal 26.7-34.0 [facility] Comment on above: Performed By: #### B GURPREET, TSH #### [facility] [address] [place] [address] Dr. Reema Mireles MCHC (RBC) [Mass/Vol] 35.7 g/dL Critically high 29.9-35.2 [facility] Comment on above: Performed By: #### B GURPREET, TSH #### [facility] [address] [place] [address] Dr. Reema Mireles MCV (RBC) [Entitic vol] 86.5 fL Normal 81.0-99.0 [facility] Comment on above: Performed By: #### B GURPREET, TSH #### [facility] [address] [place] [address] Dr. Reema Mireles MONO # 0.5 103/ul Normal 0.3-0.8 [facility] Comment on above: Performed By: #### B GURPREET, TSH #### [facility] [address] [place] [address] Dr. Reema Mireles Monocytes/100 WBC (Bld) 8.5 % Normal 1.7-12.0 [facility] Comment on above: Performed By: #### B GURPREET, TSH #### [facility] [address] [place] [address] Dr. Reema Mireles NEUT # 4.1 103/ul Normal 1.4-6.5 [facility] Comment on above: Performed By: #### B GURPREET, TSH #### [facility] [address] [place] [address] Dr. Reema Mireles Neutrophils/100 WBC (Bld) 64.6 % Normal 43.0-75.0 [facility] Comment on above: Performed By: #### B GURPREET, TSH #### [facility] [address] [place] [address] Dr. Reema Mireles Platelet mean volume (Bld) [Entitic vol] 9.9 fL Normal 9.5-13.5 [facility] Comment on above: Performed By: #### B MP, TSH #### [facility] [address] [place] [address] Dr. Reema Mireles PLT 403 103/ul Normal 150-450 [facility] Comment on above: Performed By: #### B MP, TSH #### [facility] [address] [place] [address] Dr. Reema Mireles RBC 4.37 106/ul Normal 4.20-5.40 [facility] Comment on above: Performed By: #### B MP, TSH #### [facility] [address] [place] [address] Dr. Reema Mireles WBC 6.3 103/ul Normal 4.0-11.0 [facility] Comment on above: Performed By: #### B GURPREET, TSH #### [facility] [address] [place] [address] Dr. Reema Mireles PROF 14(COMP METB)on 09-14- 022 Albumin [Mass/Vol] 4.3 g/dL Normal 3.4-5.0 [facility] Comment on above: Performed By: #### B GURPREET, TSH #### [facility] [address] [place] [address] Dr. Reema Mireles Albumin/Globulin [Mass ratio] 1.2 {ratio} Normal [facility] Comment on above: Performed By: #### B MP, TSH #### [facility] [address] [place] [address] Dr. Reema Mireles ALP [Catalytic activity/Vol] 79 U/L Normal 46-116 [facility] Comment on above: Performed By: #### B MP, TSH #### [facility] [address] [place] [address] Dr. Reema Mireles ALT [Catalytic activity/Vol] 31 U/L Normal 14-59 [facility] Comment on above: Performed By: #### B MP, TSH #### [facility] [address] [address] [address] Reema Mireles Anion gap [Moles/Vol] 12.1 mmol/L Normal [facility] Comment on above: Performed By: #### B MP, TSH #### [facility] [address] [address] [address] Reema Mireles AST [Catalytic activity/Vol] 17 U/L Normal 15-37 [facility] Comment on above: Performed By: #### B MP, TSH #### [facility] [address] [address] [address] Reema Mireles Bilirubin [Mass/Vol] 0.4 mg/dL Normal 0.2-1.0 [facility] Comment on above: Performed By: #### B MP, TSH #### [facility] [address] [address] [address] Reema Mireles Calcium [Mass/Vol] 8.9 mg/dL Normal 8.5-10.1 [facility] Comment on above: Performed By: #### B MP, TSH #### [facility] [address] [address] [address] Reema Mireles Chloride [Moles/Vol] 98 mmol/L Normal 98-107 [facility] Comment on above: Performed By: #### B MP, TSH #### [facility] [address] [address] [address] Reema Mireles CO2 [Moles/Vol] 27.0 mmol/L Normal 21.0-32.0 [facility] Comment on above: Performed By: #### B MP, TSH #### [facility] [address] [address] [address] Reema Mireles Creatinine [Mass/Vol] 0.65 mg/dL Normal 0.55-1.02 [facility] Comment on above: Performed By: #### B MP, TSH #### [facility] [address] [address] [address] Reema Mireles EGFR-AF INDONESIAN >60 Normal >=60 [facility] Comment on above: Performed By: #### B MP, TSH #### [facility] [address] [address] [address] Reema Mireles EGFR-NON AF INDONESIAN >60 Normal >=60 [facility] Comment on above: Performed By: #### B MP, TSH #### [facility] [address] [address] [address] Reema Mierles Globulin (S) [Mass/Vol] 3.5 g/dL Normal [facility] Comment on above: Performed By: #### B MP, TSH #### [facility] [address] [address] [address] Reema Mireles Glucose [Mass/Vol] 106 mg/dL Normal 74-106 [facility] Comment on above: Performed By: #### B GURPREET, TSH #### [facility] [address] [place] [address] Dr. Reema Mireles Potassium [Moles/Vol] 3.1 mmol/L Critically low 3.5-5.1 [facility] Comment on above: Performed By: #### B GURPREET, TSH #### [facility] [address] [place] [address] Dr. Reema Mireles Protein [Mass/Vol] 7.8 g/dL Normal 6.4-8.2 [facility] Comment on above: Performed By: #### B GURPREET, TSH #### [facility] [address] [place] [address] Dr. Reema Mireles Sodium [Moles/Vol] 134 mmol/L Critically low 136-145 [facility] Comment on above: Performed By: #### B GURPREET, TSH #### [facility] [address] [place] [address] Dr. Reema Mireles Urea nitrogen [Mass/Vol] 6.0 mg/dL Critically low 7.0-18.0 [facility] Comment on above: Performed By: #### B GURPREET, TSH #### [facility] [address] [place] [address] Dr. Reema Mireles Urea nitrogen/Creatinine [Mass ratio] 9.2 mg/mg Normal [facility] Comment on above: Performed By: #### B GURPREET, TSH #### [facility] [address] [place] [address] Dr. Reema Mireles ACETONE SERUMon 08-11-2022 ACETONE Negative Normal NEGATIVE [facility] Comment on above: Performed By: #### B MP, TSH #### [facility] [address] [place] [address] Dr. Reema Mireles CBC AUTO DIFFon 08-11-2022 BASO # 0.1 103/ul Normal 0.0-0.1 [facility] Comment on above: Performed By: #### B MP, TSH #### [facility] [address] [place] [address] Dr. Reema Mireles Basophils/100 WBC (Bld) 0.5 % Normal 0.2-2.0 [facility] Comment on above: Performed By: #### B MP, TSH #### [facility] [address] [place] [address] Dr. Reema Mireles EO # 0.1 103/ul Normal 0.0-0.7 [facility] Comment on above: Performed By: #### B MP, TSH #### [facility] [address] [place] [address] Dr. Reema Mireles Eosinophils/100 WBC (Bld) 0.7 % Critically low 0.9-7.0 [facility] Comment on above: Performed By: #### B MP, TSH #### [facility] [address] [place] [address] Dr. Reema iMreles Erythrocyte distribution width (RBC) [Ratio] 11.7 % Normal 11.0-15.0 [facility] Comment on above: Performed By: #### B MP, TSH #### [facility] [address] [place] [address] Dr. Reema Mireles Hematocrit (Bld) [Volume fraction] 37.6 % Normal 36.0-48.0 [facility] Comment on above: Performed By: #### B MP, TSH #### [facility] [address] [place] [address] Dr. Reema Mireles Hemoglobin (Bld) [Mass/Vol] 13.1 g/dL Normal 12.0-16.0 [facility] Comment on above: Performed By: #### B MP, TSH #### [facility] [address] [address] [address] Reema Mireles IG # 0.02 10e3/ul Normal 0.00-0.03 [facility] Comment on above: Performed By: #### B MP, TSH #### [facility] [address] [address] [address] Reema Mireles IG % 0.2 % Normal 0.0-0.5 [facility] Comment on above: Performed By: #### B MP, TSH #### [facility] [address] [place] [address] Dr. Reema Mireles LYMPH # 2.7 103/ul Normal 1.2-3.8 [facility] Comment on above: Performed By: #### B MP, TSH #### [facility] [address] [place] [address] Dr. Reema Mirlees Lymphocytes/100 WBC (Bld) 28.5 % Normal 20.5-60.0 [facility] Comment on above: Performed By: #### B MP, TSH #### [facility] [address] [address] [address] Reema Mireles MANUAL DIFF REQ NO Normal [facility] Comment on above: Performed By: #### B MP, TSH #### [facility] [address] [place] [address] Dr. Reema Mireles MCH (RBC) [Entitic mass] 30.3 pg Normal 26.7-34.0 [facility] Comment on above: Performed By: #### B MP, TSH #### [facility] [address] [address] [address] Reema Mireles MCHC (RBC) [Mass/Vol] 34.8 g/dL Normal 29.9-35.2 [facility] Comment on above: Performed By: #### B MP, TSH #### [facility] [address] [place] [address] Dr. Reema Mireles MCV (RBC) [Entitic vol] 87.0 fL Normal 81.0-99.0 [facility] Comment on above: Performed By: #### B MP, TSH #### [facility] [address] [address] [address] Reema Mireles MONO # 0.8 103/ul Normal 0.3-0.8 [facility] Comment on above: Performed By: #### B MP, TSH #### [facility] [address] [place] [address] Dr. Reema Mireles Monocytes/100 WBC (Bld) 8.2 % Normal 1.7-12.0 [facility] Comment on above: Performed By: #### B MP, TSH #### [facility] [address] [place] [address] Dr. Reema Mireles NEUT # 5.9 103/ul Normal 1.4-6.5 [facility] Comment on above: Performed By: #### B MP, TSH #### [facility] [address] [place] [address] Dr. Reema Mireles Neutrophils/100 WBC (Bld) 61.9 % Normal 43.0-75.0 [facility] Comment on above: Performed By: #### B MP, TSH #### [facility] [address] [place] [address] Dr. Reema Mireles Platelet mean volume (Bld) [Entitic vol] 10.2 fL Normal 9.5-13.5 [facility] Comment on above: Performed By: #### B MP, TSH #### [facility] [address] [place] [address] Dr. Reema Mireles PLT 382 103/ul Normal 150-450 [facility] Comment on above: Performed By: #### B MP, TSH #### [facility] [address] [place] [address] Dr. Reema Mireles RBC 4.32 106/ul Normal 4.20-5.40 [facility] Comment on above: Performed By: #### B MP, TSH #### [facility] [address] [place] [address] Dr. Reema Mireles WBC 9.6 103/ul Normal 4.0-11.0 [facility] Comment on above: Performed By: #### B MP, TSH #### [facility] [address] [place] [address] Dr. Reema Mireles CRPon 08-11-2022 CRP [Mass/Vol] mg/L Normal <=1.0 [facility] Comment on above: Performed By: #### B MP, TSH #### [facility] [address] [place] [address] Dr. Reema Mireles ER URINE PROFILEon Bilirubin Ql (U) Negative Normal NEGATIVE [facility] Comment on above: Performed By: #### B MP, TSH #### [facility] [address] [place] [address] Dr. Reema Mireles Clarity (U) CLEAR Normal CLEAR [facility] Comment on above: Performed By: #### B MP, TSH #### [facility] [address] [place] [address] Dr. Reema Mireles Color (U) LT. YELLOW Normal YELLOW [facility] Comment on above: Performed By: #### B MP, TSH #### [facility] [address] [place] [address] Dr. Reema Mireles ERUJohana A micrscopic examination will be performed if indicated. Normal [facility] Comment on above: Performed By: #### B MP, TSH #### [facility] [address] [place] [address] Dr. Reema Mireles Glucose Ql (U) Negative Normal NEGATIVE [facility] Comment on above: Performed By: #### B MP, TSH #### [facility] [address] [place] [address] Dr. Reema Mireles Hemoglobin Ql (U) Negative Normal NEGATIVE [facility] Comment on above: Performed By: #### B MP, TSH #### [facility] [address] [place] [address] Dr. Reema Mireles Ketones Ql (U) Negative Normal NEGATIVE [facility] Comment on above: Performed By: #### B MP, TSH #### [facility] [address] [place] [address] Dr. Reema Mireles LEUKOCYTES Negative Normal NEGATIVE [facility] Comment on above: Performed By: #### B MP, TSH #### [facility] [address] [place] [address] Dr. Reema Mireles Nitrite Ql (U) Negative Normal NEGATIVE [facility] Comment on above: Performed By: #### B MP, TSH #### [facility] [address] [place] [address] Dr. Reema Mireles pH (U) 5.5 [pH] Normal 5-9 [facility] Comment on above: Performed By: #### B MP, TSH #### [facility] [address] [place] [address] Dr. Reema Mireles SPEC GRAVITY <=1.005 Abnormal 1.005-<=1.025 [facility] Comment on above: Performed By: #### B MP, TSH #### [facility] [address] [place] [address] Dr. Reema Mireles UA PROTEIN Negative Normal NEGATIVE/ TRACE [facility] Comment on above: Performed By: #### B MP, TSH #### [facility] [address] [place] [address] Dr. Reema Mireles UR MICRO IND NOT INDICATED Normal [facility] Comment on above: Performed By: #### B MP, TSH #### [facility] [address] [place] [address] Dr. Reema Mireles Urobilinogen Qn (U) 0.2 {Renny'U}/dL Normal 0.2 - 1. 0 [facility] Comment on above: Performed By: #### B MP, TSH #### [facility] [address] [place] [address] Dr. Reema Mireles LIPASEon 08-11-2022 Lipase [Catalytic activity/Vol] 71.0 U/L Critically low 73.0-393.0 [facility] Comment on above: Performed By: #### B MP, TSH #### [facility] [address] [place] [address] Dr. Reema Mireles URon 08-11-2022 , QUAL Negative Normal NEGATIVE [facility] Comment on above: Performed By: #### C VDTBH #### [facility] [address] [address] [address] Reema Mireles PROF 14(COMP METB)on 022 Albumin [Mass/Vol] 4.3 g/dL Normal 3.4-5.0 [facility] Comment on above: Performed By: #### B MP, TSH #### [facility] [address] [place] [address] Dr. Reema Mireles Albumin/Globulin [Mass ratio] 1.2 {ratio} Normal [facility] Comment on above: Performed By: #### B MP, TSH #### [facility] [address] [place] [address] Dr. Reema Mireles ALP [Catalytic activity/Vol] 70 U/L Normal 46-116 [facility] Comment on above: Performed By: #### B MP, TSH #### [facility] [address] [place] [address] Dr. Reema Mireles ALT [Catalytic activity/Vol] 16 U/L Normal 14-59 [facility] Comment on above: Performed By: #### B MP, TSH #### [facility] [address] [address] [address] Reema Mireles Anion gap [Moles/Vol] 10.5 mmol/L Normal [facility] Comment on above: Performed By: #### B MP, TSH #### [facility] [address] [address] [address] Reema Mireles AST [Catalytic activity/Vol] 8 U/L Critically low 15-37 [facility] Comment on above: Performed By: #### B MP, TSH #### [facility] [address] [address] [address] Reema Mireles Bilirubin [Mass/Vol] 0.3 mg/dL Normal 0.2-1.0 [facility] Comment on above: Performed By: #### B MP, TSH #### [facility] [address] [place] [address] Dr. Reema Mireles Calcium [Mass/Vol] 9.0 mg/dL Normal 8.5-10.1 [facility] Comment on above: Performed By: #### B MP, TSH #### [facility] [address] [address] [address] Reema Mireles Chloride [Moles/Vol] 104 mmol/L Normal 98-107 [facility] Comment on above: Performed By: #### B MP, TSH #### [facility] [address] [address] [address] Reema Mireles CO2 [Moles/Vol] 26.5 mmol/L Normal 21.0-32.0 [facility] Comment on above: Performed By: #### B MP, TSH #### [facility] [address] [address] [address] Reema Mireles Creatinine [Mass/Vol] 0.79 mg/dL Normal 0.55-1.02 [facility] Comment on above: Performed By: #### B MP, TSH #### [facility] [address] [address] [address] Reema Mireles EGFR-AF INDONESIAN >60 Normal >=60 [facility] Comment on above: Performed By: #### B MP, TSH #### [facility] [address] [address] [address] Reema Mireles EGFR-NON AF INDONESIAN >60 Normal >=60 [facility] Comment on above: Performed By: #### B MP, TSH #### [facility] [address] [address] [address] Reema Mireles Globulin (S) [Mass/Vol] 3.5 g/dL Normal [facility] Comment on above: Performed By: #### B MP, TSH #### [facility] [address] [place] [address] Dr. Reema Mireles Glucose [Mass/Vol] 106 mg/dL Normal 74-106 [facility] Comment on above: Performed By: #### B MP, TSH #### [facility] [address] [address] [address] Reema Mireles Potassium [Moles/Vol] 3.0 mmol/L Critically low 3.5-5.1 [facility] Comment on above: Performed By: #### B MP, TSH #### [facility] [address] [address] [address] Reema Mireles Protein [Mass/Vol] 7.8 g/dL Normal 6.4-8.2 [facility] Comment on above: Performed By: #### B MP, TSH #### [facility] [address] [place] [address] Dr. Reema Mireles Sodium [Moles/Vol] 138 mmol/L Normal 136-145 [facility] Comment on above: Performed By: #### B MP, TSH #### [facility] [address] [place] [address] Dr. Reema Mireles Urea nitrogen [Mass/Vol] 8.0 mg/dL Normal 7.0-18.0 [facility] Comment on above: Performed By: #### B MP, TSH #### [facility] [address] [place] [address] Dr. Reema Mireles Urea nitrogen/Creatinine [Mass ratio] 10.1 mg/mg Normal [facility] Comment on above: Performed By: #### B MP, TSH #### [facility] [address] [place] [address] Dr. Reema Mireles PROTIMEon 08-11-2022 INR Coag (PPP) [Relative time] 1.00 {INR} Normal [facility] Comment on above: Performed By: #### P T, PTT #### [facility] [address] [place] [address] Dr. Reema Mireles INR GUIDELINES SEE BELOW Normal [facility] Comment on above: Result Comment: FELICIANO RED INR: 2.0 - 3.0 CONDITIONS NOT LISTED BELOW 2.5 - 3.5 FOR PROSTHETIC HEART VALVE REPLACEMENT 2.5 - 3.5 RECURRENT THROMBOSIS Performed By: #### P T, PTT #### [facility] [address] [place] [address] Dr. Reema Mireles PT Coag (PPP) [Time] 10.8 s Normal 9.0-11.6 [facility] Comment on above: Performed By: #### P T, PTT #### [facility] [address] [place] [address] Dr. Reema Mireles PTTon 08-11-2022 aPTT Coag (Bld) [Time] 30.8 s Normal 22.3-36.2 [facility] Comment on above: Performed By: #### P T, PTT #### [facility] [address] [place] [address] Dr. Reema [facility]ireles [facility] 10 mm/hr Normal <=20 [facility] Comment on above: Performed By: #### B MP, TSH #### [facility] [address] [place] [address] Dr. Reema Mireles TSHon 08-11-2022 TSH 3.313 uIU/mL Normal 0.358-3.740 [facility] Comment on above: Performed By: #### B MP, TSH #### [facility] [address] [place] [address] Dr. Reema Mireles Discharge Instructionson Discharge Instructions [id number] #1.00CD:127 Normal [facility] Comment on above: Other Comment: wrong patient STOOL CULTUREon 04-20-2022 Campylobacter Culture Final report Normal [facility] Comment on above: Performed By: #### B MP, TSH #### [facility] [address] [place] [address] Dr. Reema Mireles E coli Shiga Toxin EIA Negative Normal Negative [facility] Comment on above: Performed By: #### B MP, TSH #### [facility] [address] [place] [address] Dr. Reema Mireles Result 1 Comment Normal [facility] Comment on above: Result Comment: No S almonella or Shigella recovered. Performed By: #### B MP, TSH #### [facility] [address] [place] [address] Dr. Reema Mireles Result Comment: No C ampylobacter species isolated. Salmonella/Shigella Screen Final report Normal [facility] Comment on above: Performed By: #### B MP, TSH #### [facility] [address] [place] [address] Dr. Reema Mireles Coding Summary.on 04-14-2022 Coding Summary. CD:[id number] Gh0bWw+PGhlYWQ+PE1FV AZbO83xxIFkzM3CW4kTA W2MZPSMYIUTMN4OBK9rb JR6ROjdH2FusoRk GhsobRKfOU19KGj0FCU0 rLlbZJyfdQ9voBToG3f0 IlNoQI79bE73VPnvJTDu ZbB1RxRgbnhbjPUr N9svQqTutTWaZat+PHRh YmxlIHdpZHRoPScxMDAl SqIocUpkTM5aMl1uFPRu LWNvbGxhcHNlOiBj g1ycLUPuBEfaKW8xhPcw E7QakEQ7JIKja8i9Ey40 dHI+MOQwTKI2cLlbIPlw l931IuRvg8ldZFG8 wLKdBWnnUXL7G67yc4C5 IEXeKLMzQFJ6sNZ5cY8j wAmhygrdY9NppGKsYpR9 ENE6oWNdeI6pzRmn krjhxI4sGgw+C69FEQ3C HSBXFN0TYmt5F4ZlMxnn dHI+RG86ZQMsWS83fFBq xASzh1xscBg5InXe VHDrDUT1gZrhMOokf6Ws IXLlP50cnQXfq4D5SDQt kXgjhZViMhKnaXV7qV2r LBqhhxohm2bjfonq Yhpvq2sdlf68mS44S68g GZuaHPVfJEH0RYRgEBMt sFeaes9jyS6vCk0+IDxj w3kcs5hkhZg2OaJo MEUrupAbjFwoSSW7e0Fm Ws84B1YrqIagd3DzTiy4 pq44nQIgy7P3pIG5WTta AOJpxT5aGAcaUhS2 RVMjLkCiqQ56fIIxKWsp Db2emKhexRjiCY4dTAHn qxtmIWMidA2qDSOyeGZw lGaiLJ5yNTXusxge p759GeQjKGK9YNXjqVIy B0SgyL5fXmRdJHJsSLOw G5BxuPKtEIwjF479FNch BkZ9FVFltxGaF2My GVArkXidFqW1k7S2Sw0V y7OycfgvTTX8ADjvOMU7 WcZ5JrYkKtG4A2XnRng8 BYXsvUdvGE9oI6Ad HSPbrailgunjiWT5GSPd DEZaqH81fVRyCPppXp0l v8S3p667QBYyAARrhM95 Xj9nmTqmRSKtlYYS pU1uvhfao8kyxtkiYiUg MIOvDQh1VIe1PXXixZto AiStNCO2YlI3MUN6nQSe zI8slRfmiqvgtM0g Oyc+F21ksC9pZIB6ZZV7 hcoxOWDjtdQmRG45XO13 M4TmMwxwbJAeiKB+PGRp wwMciGocPS6wVuRa t9vcq4NgTEnhZ8YmXMAp YAjrYpv5KCEbNBC7iHM4 xI4sJKQmWXumn5Q1eRX5 X1XmsqCrru4zb4fe SYLtGBdcT02rjERsb2R3 AEMkbMV3LJTqbJinLaDs lR48Lez+AMYmhWwhb2Fk Qehhq6lva6zubRu4 IjMwJSIgdmFsaWduPSJ0 i0PfEo88Q86dZCoxGKKj LERgENTyRXBetEogpb1z uK1rFy4+PGNvbCB3 eFL0jL6wDRRaDqX6BOxv L312PaUzmXLuCdihk1lz b3eckAk4NrWuXLKvnxDt sGckBAH9u4YjHx38 S46vJTjlEAOeEUHpHJWw DRItxNnszv2quD0aCt9+ SU3gr9ptkd48dR16kYZ+ QRQjZQH7kHluRIcc XBTkyZ9iUChwGxJ2TFOa ZdOruU78wGItOBtgIr2x aUunmGexRX6gPYDenoue f814WjGug6qrODIh kEUkUGkgYGO0F03vg0M4 SQHyVMSsTBN8tOU5oN1v bGlnbjogbGVmdDsgdmVy dEcrXNigWZqiJ131 IHRvcDsnPlBhdGllbnQg TqTeEFs1J4HyHbd2UYCx tWcgFP6upJPmGQqnKb9z dEemeAtsIO9mTPRx dlfgi103ViWfk6rtSEOe yBDqUCttUOL2B01gr6A4 XEVuQNEwYGB5sBB7vR7r bGlnbjogbGVmdDsg ciGdpTchMQqmCEbyG993 IHRvcDsnPkJpcnRoIERh iKH9TS71YD23kPKpd7U8 zCG4H4QxWLTaxopg botwvOL0PZVjGAYwxI06 Zi2ntOlbKe4rDHGoFQG7 ZEQscJQrI7FefM5rHcZm LMNqMJNvU4SpoWWv FTapA537ZOlrJeF4EDGw mfRpF3FtUGRyuHgiJmA2 g7B7El1ZX3N2NM31JZ43 cURui2M6zHK5U6Sb CFNebujfbxfnpGE7BXVb MAQwcL61Ex3pvOwbNp8u QWRsGSL4PHJwlXGqX5Ub dR0rYfApFCMpTECn W5KohWBpZAsuB541HOia DqP3QWBnkdUyI3DvPMVo xTknAyN0l8M4Eh2VVRs6 GG50EB85rGGow3U3 jMP3D0OeNEYthypinrmv eET7MUPwJNYioA37Oy1z sRylXi8vVCSeBWK7ZNFs sBLhB3YrcV6jBfVo NOVaQFPcD7WuaZXjKRoc Y679KLsgNpX4RILoquOo W3BgDQBojFfrScG8r1S0 Qa8IFEOfVK66PWU3 fXQ3DJ52RO19I2YxFodt dGFibGU+PHRhYmxlIHdp ZHRoPScxMDAlJyBzdHls PB9rZk2vEYJcTPXy wBowiDVmUiUow2bnAUNv NKlmGY3ehVfaQ3RrdYM1 WGXai7q4Gv84W68nY1Dj dXA+IDKmdGT1mFK1 eE0fSjQaRrJ8WUkpP217 GyQksENrFqpqs2fuz7rc lIv2DzU3AGSlqwXasEqk ESX9q5MgCy79O07e IHdpZHRoPSIxNSUiIHZh vGeupe7prQ4bCn8+PGNv sMY3yZO5dZ1xPvQrPvJ5 HKuxY215KmDhaREl Ktemk0aui8jfnZp0AsNu IMHexkGlkRmoXPJ5x7Gj Kl84L3XnbKxpx2MmDcq5 xa12mKXjp7H5kCG6 H5BeFAJjgxlpuJThgAgr RP5bNTMwthcnHLZkzZ7t QNVgX1x2HzVpHzA4SSgd X6ZvkuK1SRIjmNMs SVrwIJN0W78wv0D6WEBp MVRwAVC9uMB3hG4piKfy bjogbGVmdDsgdmVydGlj RXrbZNmdL884RTEe gMbhMDNzoZ5yHDKvlRMa uNkrUM5yFBRtnmeyJrsP QSYOW24TR2nFZCKYZNLB FQP5E1NoVod0SGHr wCmnCY6ufKYmZRnzZr3s uDzmlEmdSV1bQYWcbjnl LMMhtK3hVDAylTWhjSxk LU1mQYKcaaeaz340 TrAoQQM6ZAByyQNhT4Gg nU3pKlDeGETuVVUuG9Tb oYGaJBzuW910AVcnAwI4 TBCubhXcY1QpDTGy dQqvOsX1j4M4Is6aFi3d OE5dRVPjWH85KE11mDCr y5H4wFN2X6OfMKWlttbc dzcadHY1IYOhBZWp uV31tLQjZJkrGx1lb2M2 m205KLAjSUIfnA32Db0z nYquCIWhiNBFbY5buemz x7cbugshTcKuWXNs SAd6EBh4ALTrlIwdXvUt YMQ8WgO0WKS8kVNtiH3c lBtaafsvrW9uDyw+MjAg IVSfksQ0E1KmSzk8 CDZotQswYN2wbBHvYUyj Fq9yvWberCupBT8xYYTa gyjzPHMzeD1hATVxmJFr aSdfPR8vWKWykvnb d589XlDgLIA7TPBbuSUn L7PfjK1tLkHcZCXiJUGp F3OoyCGjAOmcR630AIpl ThW4IFSvulAuY1Gr OIJjgWkiOmF0z8H6Yi8Z OV3saQQ7G8MwXgt7IXBg gGkzOS0qhOKoRTkxTb3a xQrdcYkhHF6aFMEm nrcqGPCiuX8sJDEftKZj bPysRU5eHMPfwsjva938 LiPhLBR3YRDysPLxH3De cR2nHhGgTRQdZZAq T8FssLXgBPehU511NWly XuZ8QMYwklMsM1ZkQCSd dPvrUeI1m6Q5Pk7OjEIc P8BiA3a2B1OuQyej dHI+WM63UOIhGB68oSDh fCQst8txoNq3ZqVaTJSq RBP4eWprQFxai6EoXSPn H69xvNEgo8G5HCOa iAqyhPJjOyVzfRK1oV0w SBkuxrwzd8fioxosRugc m7mbmm83dW22R42xANtu ZHRoPSIzMCUiIHZh qOheny4xqR2vLj3+PGNv hVI0bJI2qQ3hVtSzJjU4 HQhcS619YcFotIWkZzer b8wvd0knhDz5ShCa LOLwwzMreUgwRIA4o5Ob Jj05W67wEZleVNRkDXBj ESAxCGAoeYulxm7qpA6r Ii8+FI6nu5flrm37 bQ39vXR+PYNcWOG0gBvj NBqfSGFlvH6xYNalUbK6 VMKoJvKkuL92xYVqNKdj Nl1nsDsfiThsTZ1c URZvtkqby235GfXyq6ge ZLMgsSAxRBbpGLI9F06h j9I0THEqAWTcAFG0xWC7 qK3lsEyygyfiuXRb dDsgdmVydGljYWwtYWxp M436UVKirAjbOmElwWXm G7qlgsGREP0rTjevzRB+ OUXpZGU4mWriVTxt FHYozU7oNUOjS6c4IbSv RlH1BOulL6ZktpR8UNYh sENmANYrfMWPcV3hlrbk w2zxdehvVzEaAGIj CAj1MMc9VDPkwTrdEqRn VIE5TqM0BIS7fNMepL4z oLayxcxeuS7dUwb+RklO OjwvdGQ+PHRkIHN0 hFogECdqVUVnsO8qHYGi I4t5RyRpOyI9AJhqR4Dk ofB1TBMxrHLbMTOeaOPQ kA6epvvux6blckxi IjFgQDMbEGk8BXy7DLMu fGujDrNgHJI4VsQ6NRR7 pBYozH8niMbpgqmbaG5b Oyc+TVJOOjwvdGQ+ EITxCSE3jPvaUBsyURXb uB8wHAFdJ2n8AfJvHlX8 KRncE9DrvlR3VPAgqQHc ODTvlGHCqV7yuvqi i3uggevuWzOcGCBlHEy8 TPp4XLUsgMyyZfMkUOD8 CzD9UYN1vADflH4caVau tqyarP2qOji+UGF5 BJM3RZ39KO28X7AsIpnl dGFibGU+PHRhYmxlIHdp ZHRoPScxMDAlJyBzdHls XO2yXa9lNKSaPHGx bGxh (more content not included)... Normal [facility] CBC AUTO DIFFon 04-13-2022 BASO # 0.1 103/ul Normal 0.0-0.1 [facility] Comment on above: Performed By: #### C VDTBH #### [facility] [address] [place] [address] Dr. Reema Mireles Basophils/100 WBC (Bld) 0.6 % Normal 0.2-2.0 [facility] Comment on above: Performed By: #### C VDTBH #### [facility] [address] [place] [address] Dr. Reema Mireles EO # 0.0 103/ul Normal 0.0-0.7 [facility] Comment on above: Performed By: #### C VDTBH #### [facility] [address] [place] [address] Dr. Reema Mireles Eosinophils/100 WBC (Bld) 0.2 % Critically low 0.9-7.0 [facility] Comment on above: Performed By: #### C VDTBH #### [facility] [address] [place] [address] Dr. Reema Mireles Erythrocyte distribution width (RBC) [Ratio] 11.4 % Normal 11.0-15.0 [facility] Comment on above: Performed By: #### C VDTBH #### [facility] [address] [place] [address] Dr. Reema Mireles Hematocrit (Bld) [Volume fraction] 38.3 % Normal 36.0-48.0 [facility] Comment on above: Performed By: #### C VDTBH #### [facility] [address] [address] [address] Reema Mireles Hemoglobin (Bld) [Mass/Vol] 13.4 g/dL Normal 12.0-16.0 [facility] Comment on above: Performed By: #### C VDTBH #### [facility] [address] [place] [address] Dr. Reema Mireles IG # 0.01 10e3/ul Normal 0.00-0.03 [facility] Comment on above: Performed By: #### C VDTBH #### [facility] [address] [place] [address] Dr. Reema Mireles IG % 0.1 % Normal 0.0-0.5 [facility] Comment on above: Performed By: #### C VDTBH #### [facility] [address] [place] [address] Dr. Reema Mireles LYMPH # 1.8 103/ul Normal 1.2-3.8 [facility] Comment on above: Performed By: #### C VDTBH #### [facility] [address] [place] [address] Dr. Reema Mireles Lymphocytes/100 WBC (Bld) 22.2 % Normal 20.5-60.0 [facility] Comment on above: Performed By: #### C VDTBH #### [facility] [address] [place] [address] Dr. Reema Mireles MANUAL DIFF REQ NO Normal [facility] Comment on above: Performed By: #### C VDTBH #### [facility] [address] [place] [address] Dr. Reema Mireles MCH (RBC) [Entitic mass] 30.6 pg Normal 26.7-34.0 [facility] Comment on above: Performed By: #### C VDTBH #### [facility] [address] [place] [address] Dr. Reema Mireles MCHC (RBC) [Mass/Vol] 35.0 g/dL Normal 29.9-35.2 [facility] Comment on above: Performed By: #### C VDTBH #### [facility] [address] [place] [address] Dr. Reema Mireles MCV (RBC) [Entitic vol] 87.4 fL Normal 81.0-99.0 [facility] Comment on above: Performed By: #### C VDTBH #### [facility] [address] [place] [address] Dr. Reema Mireles MONO # 0.7 103/ul Normal 0.3-0.8 [facility] Comment on above: Performed By: #### C VDTBH #### [facility] [address] [place] [address] Dr. Reema Mireles Monocytes/100 WBC (Bld) 8.2 % Normal 1.7-12.0 [facility] Comment on above: Performed By: #### C VDTBH #### [facility] [address] [place] [address] Dr. Reema Mireles NEUT # 5.5 103/ul Normal 1.4-6.5 [facility] Comment on above: Performed By: #### C VDTB #### [facility] [address] [place] [address] Dr. Reema Mireles Neutrophils/100 WBC (Bld) 68.7 % Normal 43.0-75.0 [facility] Comment on above: Performed By: #### C VDTBH #### [facility] [address] [place] [address] Dr. Reema Mireles Platelet mean volume (Bld) [Entitic vol] 10.1 fL Normal 9.5-13.5 [facility] Comment on above: Performed By: #### C VDTBH #### [facility] [address] [place] [address] Dr. Reema Mireles PLT 404 103/ul Normal 150-450 [facility] Comment on above: Performed By: #### C VDTBH #### [facility] [address] [place] [address] Dr. Reema Mireles RBC 4.38 106/ul Normal 4.20-5.40 [facility] Comment on above: Performed By: #### C VDTBH #### [facility] [address] [place], [place] [address] Dr. Reema Mireles WBC 8.0 103/ul Normal 4.0-11.0 [facility] Comment on above: Performed By: #### C [facility] #### [facility] [address] [place], [place] [address] HEAD WO CONon [...] CARLOS Date: 2022-04-13 16:29 Normal [facility] Discharge Instructionson Discharge Instructions [id number] #1.00CD:127 Normal [facility] ED Note-Physicianon 04-13-20 ED Note-Physician Basic Information Time Seen: Lata Hardy M.D. 04/12/2022 19:56 Chief Complaint Pt. presents to the ed with c/o headache and vertigo since thursday. Pt. was seen [facility] and started on prednisone. pt. stopped taking [...] patient states she was seen at [facility] discharged home. She went to urgent [...] deficit. She has been seen at [facility] and started on prednisone. Possible her [...] ADRYAN MARIE In 3 days 04/15/2022 EDT [facility] [place] [address]- Business (1) Additional Instructions: Return to the [...] available. Normal [facility] Comment on above: Result Comment: Elec tronically Signed By: Antony Villa, Lata Baxter\.br\Date and Time Signed: 04/13/22 04:56 EDT ER URINE PROFILEon 2 Bilirubin Ql (U) Negative Normal NEGATIVE [facility] Comment on above: Performed By: #### P REGU, ERUR #### [facility] [address] [place] [address] Dr. Reema Mireles Clarity (U) CLEAR Normal CLEAR [facility] Comment on above: Performed By: #### P REGU, ERUR #### [facility] [address] [place] [address] Dr. Reema Mireles Color (U) LT. YELLOW Normal YELLOW [facility] Comment on above: Performed By: #### P REGU, ERUR #### [facility] [address] [place] [address] Dr. Reema Mireles ERUAHD A micrscopic examination will be performed if indicated. Normal [facility] Comment on above: Performed By: #### P REGU, ERUR #### [facility] [address] [place] [address] Dr. Reema Mireles Glucose Ql (U) Negative Normal NEGATIVE [facility] Comment on above: Performed By: #### P REGU, ERUR #### [facility] [address] [place] [address] Dr. Reema Mireles Hemoglobin Ql (U) Negative Normal NEGATIVE [facility] [place] Comment on above: Performed By: #### P REGU, ERUR #### [facility] [address] [place] [address] Dr. Reema Mireles Ketones Ql (U) Negative Normal NEGATIVE [facility] Comment on above: Performed By: #### P REGU, ERUR #### [facility] [address] [place] [address] Dr. Reema Mireles LEUKOCYTES Negative Normal NEGATIVE [facility] Comment on above: Performed By: #### P REGU, ERUR #### [facility] [address] [address] [address] Reema Mireles Nitrite Ql (U) Negative Normal NEGATIVE [facility] Comment on above: Performed By: #### P REGU, ERUR #### [facility] [address] [place] [address] Dr. Reema Mireles pH (U) 6.5 [pH] Normal 5-9 [facility] Comment on above: Performed By: #### P REGU, ERUR #### [facility] [address] [place] [address] Dr. Reema Mireles SPEC GRAVITY 1.005 Normal 1.005-<=1.025 [facility] Comment on above: Performed By: #### P REGU, ERUR #### [facility] [address] [place] [address] Dr. Reema Mireles UA PROTEIN Negative Normal NEGATIVE/ TRACE [facility] Comment on above: Performed By: #### P REGU, ERUR #### [facility] [address] [place] [address] Dr. Reema Mireles UR MICRO IND NOT INDICATED Normal [facility] Comment on above: Performed By: #### P REGU, ERUR #### [facility] [address] [place] [address] Dr. Reema Mireles Urobilinogen Qn (U) 0.2 {Renny'U}/dL Normal 0.2 - 1. 0 [facility] Comment on above: Performed By: #### P REGU, ERUR #### [facility] [address] [address] [address] Reema Mireles URon 04-13-2022 , QUAL Negative Normal NEGATIVE [facility] Comment on above: Performed By: #### P REGU, ERUR #### [facility] [address] [place] [address] Dr. Reema Mireles PROF CHEM 8 (BAS METB)on Anion gap [Moles/Vol] 14.0 mmol/L Normal [facility] Comment on above: Performed By: #### B MP, TSH #### [facility] [address] [place] [address] Dr. Reema Mireles Calcium [Mass/Vol] 9.2 mg/dL Normal 8.5-10.1 [facility] Comment on above: Performed By: #### B MP, TSH #### [facility] [address] [place] [address] Dr. Reema Mireles Chloride [Moles/Vol] 102 mmol/L Normal 98-107 [facility] Comment on above: Performed By: #### B MP, TSH #### [facility] [address] [place] [address] Dr. Reema Mireles CO2 [Moles/Vol] 26.3 mmol/L Normal 21.0-32.0 [facility] Comment on above: Performed By: #### B MP, TSH #### [facility] [address] [place] [address] Dr. Reema Mireles Creatinine [Mass/Vol] 0.65 mg/dL Normal 0.55-1.02 [facility] Comment on above: Performed By: #### B MP, TSH #### [facility] [address] [place] [address] Dr. Reema Mireles EGFR-AF INDONESIAN >60 Normal >=60 [facility] Comment on above: Performed By: #### B MP, TSH #### [facility] [address] [place] [address] Dr. Reema Mireles EGFR-NON AF INDONESIAN >60 Normal >=60 [facility] Comment on above: Performed By: #### B MP, TSH #### [facility] [address] [address] [address] Reema Mireles Glucose [Mass/Vol] 92 mg/dL Normal 74-106 [facility] Comment on above: Performed By: #### B MP, TSH #### [facility] [address] [address] [address] Reema Mireles Potassium [Moles/Vol] 3.3 mmol/L Critically low 3.5-5.1 [facility] Comment on above: Performed By: #### B MP, TSH #### [facility] [address] [address] [address] Reema Mireles Sodium [Moles/Vol] 139 mmol/L Normal 136-145 [facility] Comment on above: Performed By: #### B MP, TSH #### [facility] [address] [address] [address] Reema Mireles Urea nitrogen [Mass/Vol] 8.0 mg/dL Normal 7.0-18.0 [facility] Comment on above: Performed By: #### B MP, TSH #### [facility] [address] [address] [address] Reema Mireles Urea nitrogen/Creatinine [Mass ratio] 12.3 mg/mg Normal [facility] Comment on above: Performed By: #### B MP, TSH #### [facility] [address] [address] [address] Reema Mireles TSHon 04-13-2022 TSH 1.293 uIU/mL Normal 0.358-3.740 [facility] Comment on above: Performed By: #### B MP, TSH #### [facility] [address] [address] [address] Reema Mireles Consent for Treatmenton 03-28 Consent for Treatment [id number] Normal [facility] ED Clinical Summaryon 2021 ED Clinical Summary [address] [id number] ED Clinical Summary Person Information Name: JUANPABLO CHAPARRO [place] Age: 21 Years : 2000 Sex: Female Language: Swedish PCP: ADRYAN MARIE MD Marital Status: Single Phone: [phone] Visit Id: Visit Reason: Vertigo - recurrent; [...] 04/12/2022 21:07:38 04/12/2022 21:07:38 04/12/2022 21:07:38 ADDRESS: [address] [place] [phone] PHYS DOC NOTES: MEDICAL INFORMATION: Prescriptions Given: PATIENT EDUCATION INFORMATION: Instructions: General Headache Without Cause; Vertigo Follow up: With: Address: When: ADRYAN MARIE [address] [place], [place] [id number] [employer] (1) In 3 days 04/15/2022 Comments: Return to the emergency room if her headache gets worse, vertigo becomes persistent or any new symptoms DIAGNOSIS: 1:Vertigo; 2:Headache Normal [facility] ED Patient Education Noteon 04-12-2022 ED Patient [...] you feel dizzy. General instructions ? Take xtug-ioc-ywqlahs and prescription medicines only as told by [...] 06/24/2006 Document Revised: 08/08/2019 Document Reviewed: 08/08/2019 [employer] Patient Education ? 2020 [employer] Neurology General Headache Without Cause A [...] with your condition: Managing pain ? Take grna-hck-jgrword and prescription medicines only as told by [...] included)... Normal [facility] ED Patient Summaryon 022 ED Patient Summary [address] [address] Patient Discharge Instructions Person Information Name: JUANPABLO CHAPARRO Age: 21 Years Arrival Date: 04/12/2022 19:22:40 Discharge Diagnosis: 1:Vertigo; 2:Headache Primary Care Physician: ADRYAN MARIE MD Provider Information Primary Provider: Lata Hardy M.D. Advanced Alcohol Rubber:None The exam and treatment you received in the Emergency Department were for an urgent problem and are not intended as complete care. It is important that you follow up with a doctor, nurse practitioner, or physician?s payroll administrative assistant for ongoing care. If your symptoms [...] Follow-up Instructions: With: Address: When: ADRYAN MARIE [address] [place] [address] [employer] (1) In 3 days 04/15/2022 Comments: Return [...] opioids can be used to help relieve htzryfrc-sw-wxsuna pain and are often prescribed following a [...] included)... Normal [facility] CBC AUTO DIFFon 04-09-2022 BASO # 0.1 103/ul Normal 0.0-0.1 [facility] Comment on above: Performed By: #### B MP, TSH #### [facility] [address] [address] [address] Reema Mireles Basophils/100 WBC (Bld) 0.5 % Normal 0.2-2.0 [facility] Comment on above: Performed By: #### B MP, TSH #### [facility] [address] [place] [address] Dr. Reema Mireles EO # 0.1 103/ul Normal 0.0-0.7 [facility] Comment on above: Performed By: #### B MP, TSH #### [facility] [address] [place] [address] Dr. Reema Mireles Eosinophils/100 WBC (Bld) 1.0 % Normal 0.9-7.0 [facility] Comment on above: Performed By: #### B MP, TSH #### [facility] [address] [place] [address] Dr. Reema Mireles Erythrocyte distribution width (RBC) [Ratio] 11.7 % Normal 11.0-15.0 [facility] Comment on above: Performed By: #### B MP, TSH #### [facility] [address] [place] [address] Dr. Reema Mireles Hematocrit (Bld) [Volume fraction] 37.2 % Normal 36.0-48.0 [facility] Comment on above: Performed By: #### B MP, TSH #### [facility] [address] [place] [address] Dr. Reema Mireles Hemoglobin (Bld) [Mass/Vol] 12.8 g/dL Normal 12.0-16.0 [facility] Comment on above: Performed By: #### B MP, TSH #### [facility] [address] [place] [address] Dr. Reema Mireles IG # 0.02 10e3/ul Normal 0.00-0.03 [facility] Comment on above: Performed By: #### B MP, TSH #### [facility] [address] [place] [address] Dr. Reema Mireles IG % 0.2 % Normal 0.0-0.5 [facility] Comment on above: Performed By: #### B MP, TSH #### [facility] [address] [place] [address] Dr. Reema Mireles LYMPH # 1.8 103/ul Normal 1.2-3.8 [facility] Comment on above: Performed By: #### B MP, TSH #### [facility] [address] [address] [address] Reema Mireles Lymphocytes/100 WBC (Bld) 19.0 % Critically low 20.5-60.0 [facility] Comment on above: Performed By: #### B MP, TSH #### [facility] [address] [address] [address] Reema Mireles MANUAL DIFF REQ NO Normal [facility] Comment on above: Performed By: #### B MP, TSH #### [facility] [address] [address] [address] Reema Mireles MCH (RBC) [Entitic mass] 30.4 pg Normal 26.7-34.0 [facility] Comment on above: Performed By: #### B MP, TSH #### [facility] [address] [place] [address] Dr. Reema Mireles MCHC (RBC) [Mass/Vol] 34.4 g/dL Normal 29.9-35.2 [facility] Comment on above: Performed By: #### B MP, TSH #### [facility] [address] [address] [address] Reema Mireles MCV (RBC) [Entitic vol] 88.4 fL Normal 81.0-99.0 [facility] Comment on above: Performed By: #### B MP, TSH #### [facility] [address] [address] [address] Reema Mireles MONO # 0.7 103/ul Normal 0.3-0.8 [facility] Comment on above: Performed By: #### B MP, TSH #### [facility] [address] [address] [address] Reema Mireles Monocytes/100 WBC (Bld) 6.8 % Normal 1.7-12.0 [facility] Comment on above: Performed By: #### B MP, TSH #### [facility] [address] [address] [address] Reema Mireles NEUT # 7.0 103/ul Critically high 1.4-6.5 [facility] Comment on above: Performed By: #### B MP, TSH #### [facility] [address] [address] [address] Reema Mireles Neutrophils/100 WBC (Bld) 72.5 % Normal 43.0-75.0 [facility] Comment on above: Performed By: #### B MP, TSH #### [facility] [address] [address] [address] Reema Mireles Platelet mean volume (Bld) [Entitic vol] 10.3 fL Normal 9.5-13.5 [facility] Comment on above: Performed By: #### B MP, TSH #### [facility] [address] [place] [address] Dr. Reema Mireles PLT 358 103/ul Normal 150-450 [facility] Comment on above: Performed By: #### B MP, TSH #### [facility] [address] [place] [address] Dr. Reema Mireles RBC 4.21 106/ul Normal 4.20-5.40 [facility] Comment on above: Performed By: #### B MP, TSH #### [facility] [address] [place] [address] Dr. Reema Mireles WBC 9.7 103/ul Normal 4.0-11.0 [facility] Comment on above: Performed By: #### B MP, TSH #### [facility] [address] [place] [address] Dr. Reema Mireles CULTURE BLOODon 04-09-2022 Microscopic examination of blood, culture Culture Observations: NO GROWTH AT 5 DAYS. Normal [facility] Comment on above: Performed By: #### B MP, TSH #### [facility] [address] [place] [address] Dr. Reema Mireles ER URINE PROFILEon 2 Bilirubin Ql (U) Negative Normal NEGATIVE [facility] Comment on above: Performed By: #### B MP, TSH #### [facility] [address] [place] [address] Dr. Reema Mireles Clarity (U) CLEAR Normal CLEAR [facility] Comment on above: Performed By: #### B MP, TSH #### [facility] [address] [address] [address] Reema Mireles Color (U) LT. YELLOW Normal YELLOW [facility] Comment on above: Performed By: #### B MP, TSH #### [facility] [address] [place] [address] Dr. Reema Mireles ERUAHD A micrscopic examination will be performed if indicated. Normal [facility] Comment on above: Performed By: #### B MP, TSH #### [facility] [address] [place] [address] Dr. Reema Mireles Glucose Ql (U) Negative Normal NEGATIVE [facility] Comment on above: Performed By: #### B MP, TSH #### [facility] [address] [place] [address] Dr. Reema Mireles Hemoglobin Ql (U) TRACE-INTACT Abnormal NEGATIVE [facility] Comment on above: Performed By: #### B MP, TSH #### [facility] [address] [place] [address] Dr. Reema Mireles Ketones Ql (U) Negative Normal NEGATIVE [facility] Comment on above: Performed By: #### B MP, TSH #### [facility] [address] [place] [address] Dr. Reema Mireles LEUKOCYTES Negative Normal NEGATIVE [facility] Comment on above: Performed By: #### B MP, TSH #### [facility] [address] [place] [address] Dr. Reema Mireles Nitrite Ql (U) Negative Normal NEGATIVE [facility] Comment on above: Performed By: #### B MP, TSH #### [facility] [address] [address] [address] Reema Mireles pH (U) 5.5 [pH] Normal 5-9 [facility] Comment on above: Performed By: #### B MP, TSH #### [facility] [address] [place] [address] Dr. Reema Mireles SPEC GRAVITY <=1.005 Abnormal 1.005-<=1.025 [facility] Comment on above: Performed By: #### B MP, TSH #### [facility] [address] [place] [address] Dr. Reema Mireles UA PROTEIN Negative Normal NEGATIVE/ TRACE [facility] Comment on above: Performed By: #### B MP, TSH #### [facility] [address] [place] [address] Dr. Reema Mireles UR MICRO IND INDICATED Normal [facility] Comment on above: Performed By: #### B MP, TSH #### [facility] [address] [place] [address] Dr. Reema Mireles Urobilinogen Qn (U) 0.2 {Renny'U}/dL Normal 0.2 - 1. 0 [facility] Comment on above: Performed By: #### B MP, TSH #### [facility] [address] [place] [address] Dr. Reema Mireles LACTATE/LACTIC ACIDon 2021 Lactate [Moles/Vol] 2.2 mmol/L Critically high 0.4-1.9 [facility] Comment on above: Performed By: #### B MP, TSH #### [facility] [address] [place] [address] Dr. Reema Mireles URon 04-09-2022 , QUAL Negative Normal NEGATIVE [facility] Comment on above: Performed By: #### B MP, TSH #### [facility] [address] [place] [address] Dr. Reema Mireles PROF 14(COMP METB)on 022 Albumin [Mass/Vol] 4.5 g/dL Normal 3.4-5.0 [facility] Comment on above: Performed By: #### C MP #### [facility] [address] [place] [address] Dr. Reema Mireles Albumin/Globulin [Mass ratio] 1.3 {ratio} Normal [facility] Comment on above: Performed By: #### C MP #### [facility] [address] [place] [address] Dr. Reema Mireles ALP [Catalytic activity/Vol] 83 U/L Normal 46-116 [facility] Comment on above: Performed By: #### C MP #### [facility] [address] [address] [address] Reema Mireles ALT [Catalytic activity/Vol] 26 U/L Normal 14-59 [facility] Comment on above: Performed By: #### C MP #### [facility] [address] [address] [address] Reema Mireles Anion gap [Moles/Vol] 14.9 mmol/L Normal [facility] Comment on above: Performed By: #### C MP #### [facility] [address] [address] [address] Reema Mireles AST [Catalytic activity/Vol] 12 U/L Critically low 15-37 [facility] Comment on above: Performed By: #### C MP #### [facility] [address] [address] [address] Reema Mireles Bilirubin [Mass/Vol] 0.3 mg/dL Normal 0.2-1.0 [facility] Comment on above: Performed By: #### C MP #### [facility] [address] [address] [address] Reema Mireles Calcium [Mass/Vol] 9.6 mg/dL Normal 8.5-10.1 [facility] Comment on above: Performed By: #### C MP #### [facility] [address] [address] [address] Reema Mireles Chloride [Moles/Vol] 103 mmol/L Normal 98-107 [facility] Comment on above: Performed By: #### C MP #### [facility] [address] [address] [address] Reema Mireles CO2 [Moles/Vol] 24.4 mmol/L Normal 21.0-32.0 [facility] Comment on above: Performed By: #### C MP #### [facility] [address] [address] [address] Reema Mireles Creatinine [Mass/Vol] 0.87 mg/dL Normal 0.55-1.02 [facility] Comment on above: Performed By: #### C MP #### [facility] [address] [address] [address] Reema Mireles EGFR-AF INDONESIAN >60 Normal >=60 [facility] Comment on above: Performed By: #### C MP #### [facility] [address] [address] [address] Reema Mireles EGFR-NON AF INDONESIAN >60 Normal >=60 [facility] Comment on above: Performed By: #### C MP #### [facility] [address] [address] [address] Reema Mireles Globulin (S) [Mass/Vol] 3.5 g/dL Normal [facility] Comment on above: Performed By: #### C MP #### [facility] [address] [address] [address] Reema Mireles Glucose [Mass/Vol] 109 mg/dL Critically high 74-106 [facility] Comment on above: Performed By: #### C MP #### [facility] [address] [address] [address] Reema Mireles Potassium [Moles/Vol] 3.3 mmol/L Critically low 3.5-5.1 [facility] Comment on above: Performed By: #### C MP #### [facility] [address] [address] [address] Reema Mireles Protein [Mass/Vol] 8.0 g/dL Normal 6.4-8.2 [facility] Comment on above: Performed By: #### C MP #### [facility] [address] [address] [address] Reema Mireles Sodium [Moles/Vol] 139 mmol/L Normal 136-145 [facility] Comment on above: Performed By: #### C MP #### [facility] [address] [address] [address] Reema Mireles Urea nitrogen [Mass/Vol] 9.0 mg/dL Normal 7.0-18.0 [facility] Comment on above: Performed By: #### C MP #### [facility] [address] [place] [address] Dr. Reema Mireles Urea nitrogen/Creatinine [Mass ratio] 10.3 mg/mg Normal [facility] Comment on above: Performed By: #### C MP #### [facility] [address] [place] [address] Dr. Reema Mireles URINE MICROSCOPIC ONLYon BACTERIA NONE SEEN Normal NONE SEEN [facility] Comment on above: Performed By: #### B MP, TSH #### [facility] [address] [place] [address] Dr. Reema Mireles Bacteria identified Cx Nom (U) NOT INDICATED Normal [facility] Comment on above: Performed By: #### B MP, TSH #### [facility] [address] [place] [address] Dr. Reema Mireles CAST NONE SEEN Normal NONE SEEN [facility] Comment on above: Performed By: #### B MP, TSH #### [facility] [address] [place] [address] Dr. Reema Mireles Crystals LM Nom (Urine sed) NONE SEEN Normal NONE SEEN [facility] Comment on above: Performed By: #### B MP, TSH #### [facility] [address] [place] [address] Dr. Reema Mireles Epithelial cells LM Ql (Urine sed) RARE Normal NONE SEEN /RARE [facility] Comment on above: Performed By: #### B MP, TSH #### [facility] [address] [place] [address] Dr. Reema Mireles MUCOUS NONE SEEN Normal NONE SEEN [facility] Comment on above: Performed By: #### B MP, TSH #### [facility] [address] [place] [address] Dr. Reema Mireles RBC 0-2 Normal 0-2 [facility] Comment on above: Performed By: #### B MP, TSH #### [facility] [address] [place] [address] Dr. Reema Mireles WBC NONE SEEN Normal NONE SEEN [facility] Comment on above: Performed By: #### B MP, TSH #### [facility] [address] [address] [address] Reema Mireles CBC AUTO DIFFon 10-25-2021 BASO # 0.0 103/ul Normal 0.0-0.1 [facility] Comment on above: Performed By: #### C BC #### [facility] [address] [address] [address] Reema Mireles Basophils/100 WBC (Bld) 0.6 % Normal 0.2-2.0 [facility] Comment on above: Performed By: #### C BC #### [facility] [address] [place] [address] Dr. Reema Mireles EO # 0.1 103/ul Normal 0.0-0.7 [facility] Comment on above: Performed By: #### C BC #### [facility] [address] [place] [address] Dr. Reema Mireles Eosinophils/100 WBC (Bld) 1.8 % Normal 0.9-7.0 [facility] Comment on above: Performed By: #### C BC #### [facility] [address] [place] [address] Dr. Reema Mireles Erythrocyte distribution width (RBC) [Ratio] 11.9 % Normal 11.0-15.0 [facility] Comment on above: Performed By: #### C BC #### [facility] [address] [place] [address] Dr. Reema Mireles Hematocrit (Bld) [Volume fraction] 38.1 % Normal 36.0-48.0 [facility] Comment on above: Performed By: #### C BC #### [facility] [address] [place] [address] Dr. Reema Mireles Hemoglobin (Bld) [Mass/Vol] 13.1 g/dL Normal 12.0-16.0 [facility] Comment on above: Performed By: #### C BC #### [facility] [address] [place] [address] Dr. Reema Mireles IG # 0.01 10e3/ul Normal 0.00-0.03 [facility] Comment on above: Performed By: #### C BC #### [facility] [address] [place] [address] Dr. Reema Mireles IG % 0.1 % Normal 0.0-0.5 [facility] Comment on above: Performed By: #### C BC #### [facility] [address] [place] [address] Dr. Reema Mireles LYMPH # 1.9 103/ul Normal 1.2-3.8 [facility] Comment on above: Performed By: #### C BC #### [facility] [address] [place] [address] Dr. Reema Mireles Lymphocytes/100 WBC (Bld) 27.8 % Normal 20.5-60.0 [facility] Comment on above: Performed By: #### C BC #### [facility] [address] [place] [address] Dr. Reema Mireles MANUAL DIFF REQ NO Normal [facility] Comment on above: Performed By: #### C BC #### [facility] [address] [place] [address] Dr. Reema Mireles MCH (RBC) [Entitic mass] 30.5 pg Normal 26.7-34.0 [facility] Comment on above: Performed By: #### C BC #### [facility] [address] [place] [address] Dr. Reema Mireles MCHC (RBC) [Mass/Vol] 34.4 g/dL Normal 29.9-35.2 [facility] Comment on above: Performed By: #### C BC #### [facility] [address] [place] [address] Dr. Reema Mireles MCV (RBC) [Entitic vol] 88.8 fL Normal 81.0-99.0 [facility] Comment on above: Performed By: #### C BC #### [facility] [address] [place] [address] Dr. Reema Mireles MONO # 0.8 103/ul Normal 0.3-0.8 [facility] Comment on above: Performed By: #### C BC #### [facility] [address] [place] [address] Dr. Reema Mireles Monocytes/100 WBC (Bld) 11.2 % Normal 1.7-12.0 [facility] Comment on above: Performed By: #### C BC #### [facility] [address] [place] [address] Dr. Reema Mireles NEUT # 4.0 103/ul Normal 1.4-6.5 [facility] Comment on above: Performed By: #### C BC #### [facility] [address] [place] [address] Dr. Reema Mireles Neutrophils/100 WBC (Bld) 58.5 % Normal 43.0-75.0 [facility] Comment on above: Performed By: #### C BC #### [facility] [address] [place] [address] Dr. Reema Mireles Platelet mean volume (Bld) [Entitic vol] 10.0 fL Normal 9.5-13.5 [facility] Comment on above: Performed By: #### C BC #### [facility] [address] [place] [address] Dr. Reema Mireles PLT 361 103/ul Normal 150-450 [facility] Comment on above: Performed By: #### C BC #### [facility] [address] [place] [address] Dr. Reema Mireles RBC 4.29 106/ul Normal 4.20-5.40 [facility] Comment on above: Performed By: #### C BC #### [facility] [address] [place] [address] Dr. Reema Mireles WBC 6.8 103/ul Normal 4.0-11.0 [facility] Comment on above: Performed By: #### C BC #### [facility] [address] [place] [address] Dr. Reema Mireles PREG QUANT HCGon 10-25-2021 HCG QUANT 1 mIU/mL Normal [facility] Comment on above: Performed By: #### P REGQNT #### [facility] [address] [place] [address] Dr. Reema Mireles HCG RANGE SEE BELOW Normal [facility] Comment on above: Result Comment: 50 0-1 WEEK 40-300 1-2 WEEKS 100-1,000 2-3 WEEKS 500-6,000 3-4 WEEKS 5,000-200,000 1-2 MONTHS 10,000-100,000 2-3 MONTHS 3,000-50,000 2ND TRIMESTER 1,000-50,000 3RD TRIMESTER Performed By: #### P REGQNT #### [facility] [address] [address] [address] Reema Mireles Covid-19 PCR ([facility])on 09-29 SARS-CoV-2 (COVID-19) RNA FRANKIE+probe Ql (Unsp spec) Not detected Normal NOT DETECTED [facility] Comment on above: Result Comment: This test is not yet approved or cleared by the [place] FDA. When there are no FDA-approved or cleared tests available, and other criteria are met, FDA can make tests available under an emergency access mechanism called an Emergency Use Authorization (EUA). The EUA for this test is supported by the Hel[employer] Sweat[employer] Puncher of Health and Human Service's (HHS's) declaration [...] Performed By: #### C VDTB #### [facility] [address] [place], [place] [address] Dr. Reema Mireles Vital Signs Date Time Vital Sign Value Performing Clinician Facility 11-12-2023 14:15-050 Body weight 108.86 kg [facility] Work Phone: [facility] 11-12-2023 14:15-0500 Diastolic blood pressure 72 mm[Hg] [facility] Work Phone: [facility] 11-12-2023 14:15-0500 Systolic blood pressure 122 mm[Hg] Devan Tello DO Work Phone: [facility] 04-12-2022 21:04-0400 Diastolic blood pressure 84 mm[Hg] [facility] 04-12-2022 21:04-0400 Heart rate 82 /min [facility] 04-12-2022 21:04-0400 Respiratory rate 16 /min [facility] 04-12-2022 21:04-0400 SaO2% (BldA) [Mass fraction] 98 % [facility] 04-12-2022 21:04-0400 Systolic blood pressure 120 mm[Hg] [facility] 04-12-2022 20:32-0400 gluc 80 mg/dL [facility] Comment on above: Result Comment: not taken due to pt refu jimmie of any injection 04-12-2022 20:32-0400 gluc [facility] 04-12-2022 19:25-0400 Body temperature 99.32 [degF] [facility] 04-12-2022 19:25-0400 Diastolic blood pressure 84 mm[Hg] [facility] 04-12-2022 19:25-0400 Heart rate 90 /min [facility] 04-12-2022 19:25-0400 Respiratory rate 18 /min [facility] 04-12-2022 19:25-0400 SaO2% (BldA) [Mass fraction] 98 % [facility] 04-12-2022 19:25-0400 Systolic blood pressure 118 mm[Hg] [facility] 04-09-2022 12:20-0400 Body height 165.1 cm Deonna Back Other [facility] Other 04-09-2022 12:20-0400 Body mass index (BMI) [Ratio] 35.61 kg/m2 Deonna Nazanin Other [facility] [employer] Other 04-09-2022 12:20-0400 Body temperature 98.4 [degF] Deonna Nazanin Other [facility] Other 04-09-2022 12:20-0400 Body weight 97.07 kg Deonna Nazanin Other [facility] Other 04-09-2022 12:20-0400 Diastolic blood pressure 83 mm[Hg] Deonna Nazanin Other [facility] [employer] Other 04-09-2022 12:20-0400 Respiratory rate 18 /min Deonna Nazanin Other [facility] Other 04-09-2022 12:20-0400 SaO2% (BldA) [Mass fraction] 99 % Deonna Nazanin Other [facility] Other 04-09-2022 12:20-0400 Systolic blood pressure 135 mm[Hg] Deonna Nazanin Other [facility] Other 04-02-2022 19:00-0400 Body height 165.1 cm Deonna Nazanin Other [facility] Other 04-02-2022 19:00-0400 Body mass index (BMI) [Ratio] 35.71 kg/m2 Deonna Nazanin Other [facility] Other 04-02-2022 19:00-0400 Body temperature 98.1 [degF] Deonna Nazanin Other [facility] Other 04-02-2022 19:00-0400 Body weight 97.34 kg Deonna Back Other [facility] Other 04-02-2022 19:00-0400 Diastolic blood pressure 83 mm[Hg] Deonna Back Other [facility] Other 04-02-2022 19:00-0400 Respiratory rate 18 /min Deonna Back Other [facility] [employer] Other 04-02-2022 19:00-0400 SaO2% (BldA) [Mass fraction] 100 % Deonna Back Other [facility] Other 04-02-2022 19:00-0400 Systolic blood pressure 134 mm[Hg] Deonna Back Other [facility] [employer] Other Encounters Encounter Date Encounter Type Care Provider Facility Start: 01-14-2024 End: 01-14-2024 ambulatory CYDNEY LEOS Not Available Start: 01-05-2024 End: 01-05-2024 ambulatory DEVAN OMER Not Available Start: 12-28-2023 End: 12-28-2023 ambulatory CYDNEY DERIC [...] fetus Start: 11-03-2023 Clinisync Result Encounter Cydney Leos PA Work Phone: [facility] Unsolicited Start: 11-03-2023 Clinisync Result Encounter Cydney Leos PA Work Phone: [facility] Unsolicited Start: [...] 04-12-2022 End: 04-12-2022 [facility] Start: 04-10-2022 End: 04-10-2022 ambulatory Deonna Back Other [facility] [employer] Other Start: 04-10-2022 Telephone encounter Deonna Back [facility] Start: 04-09-2022 End: 04-09-2022 ambulatory Deonna Back Other [facility] [employer] Other Start: 04-09-2022 Office outpatient vi sit 15 minutes Deonna Back [facility] Start: 04-09-2022 End: 04-09-[address] LUIS ANTONIO SUTTON Facility:[facility] Start: 04-02-2022 (URG) Urgent Care Visit Deonna pace [facility] Start: 04-02-2022 End: 04-02-2022 ambulatory Deonna Back Other [facility] Other Start: 10-25-2021 End: 10-25-[address] ADRYAN MARIE Facility:[facility] Start: 10-24-2021 Encounter for preprocedural laboratory examination DR DEVAN TELLO [facility] Start: 10-22-2021 End: 10-23-[address] ADRYAN MARIE Facility:[facility] Start: 10-22-2021 End: 10-23-2021 Encounter for preprocedural laboratory examination DR ADRYAN MARIE Facility:[facility] Start: 10-19-2021 Encounter for other preprocedural examination DR DEVAN TELLO [facility] Start: 10-17-2021 End: 10-18-[address] [...] Routine [facility] [address] [place] [address] Cydney Leos PA [address] [place], [place] [id number] [facility] Start: 11-26-2023 End: 11-26-2023 Professional / ancillary services management 11/26/2023 10:30 AM EST Ancillary Procedure [facility] [address] [place] [address] [facility] Start: 11-12-2023 End: 11-12-2024 US for US OB SCAN FOR GROWTH Imaging Routine Excessive growth affecting management of in third trimester, single or unspecified fetus Expected: 11/12/2023 (Approximate), Expires: 11/12/2024 [facility] Work Phone: Comment on above: Expected: 11/12/2023 (Approximate), Expires: 11/12/2024 Start: 11-12-2023 End: 11-12-2023 Patient encounter procedure 11/12/2023 10:50 AM EST Routine [facility] [address] [place] [address] Devan Tello DO [address] [place] [address] [facility] Payers Date Payer Category Payer Unknown [facility]ICA[facility] [id number] 2023-Present [address] [place] [address] [id number] 2023 Medicaid [id number] 2001 Unknown [id number] 2.16.840.1.393561.3.579.2. 593 2001 Unknown [id number] 2.16.840.1.269804.3.579.2. 593 2001 Unknown [id number] 2.16.840.1.126145.3.579.2. 593 2001 Unknown [id number] 2.16.840.1.335313.3.579.2. 593 2001 Unknown [id number] 2.16.840.1.931928.3.579.2. 593 2001 Unknown [id number] 2.16.840.1.412399.3.579.2. 593 2001 Unknown [id number] 2.16.840.1.300278.3.579.2. 593 2001 Unknown [id number] 2.16.840.1.619155.3.579.2. 593 2001 Unknown [id number] 2.16.840.1.974235.3.579.2. 593 2001 Unknown [id number] 2.16.840.1.226789.3.579.2. 593 2001 Unknown [id number] 2.16.840.1.177688.3.579.2. 593 2001 Unknown [id number] 2.16.840.1.492133.3.579.2. 1259 2001 Unknown [id number] 2.16.840.1.849259.3.579.2. 1259 2001 Unknown [id number] 2.16.840.1.554364.3.579.2. 1259 2001 Unknown [id number] 2.16.840.1.477367.3.579.2. 1259 2001 Unknown [id number] 2.16.840.1.189306.3.579.2. 1259 2001 Unknown [id number] 2.16.840.1.508688.3.579.2. 1259 2001 Unknown [id number] 2.16.840.1.364315.3.579.2. 1259 2001 Unknown [id number] 2.16.840.1.537939.3.579.2. 1259 2001 Unknown [id number] 2.16.840.1.040706.3.579.2. 1259 1958 [facility] [id number] 2.16.840.1.993168.19 Social History Date Type Detail Facility Unknown if ever smoked [facility] Other Sex Assigned At [facility] Other Tobacco smoking status No Smoking Status Entered [facility] Start: 06-20-2023 Tobacco smoking status NHIS Tobacco smoking consumption unknown [facility] Start: 10-15-2023 Alcohol intake Lifetime non-d hermes (finding) [facility] Start: 06-20-2023 Tobacco Comment Current smoker (frequency unknown) [facility] Start: 05-06-2023 [facility] Start: 2001 Sex Assigned At Not on file [facility] Goals Date Patient Goal Desired Activity /State Personal health goal Functional Status Date Assessment Result Facility 04-12-2022 Functional Status N/A [facility] History of Present illness Narrative 11-12-2023 [...] Devan Tello DO documented in this encounter [facility] Discharge instructions 04-12-2022 Note Date & [...] help with your condition: Managing pain Take cdtr-tey-pgawqss and prescription medicines only as told by [...] 09/14/2006 Document Revised: 04/04/2019 Document Reviewed: 04/04/2019 [employer] Patient Education 2020 [employer] 04/12/2022 21:07:38 Vertigo Vertigo Vertigo is [...] if you feel dizzy. General instructions Take ozxd-bai-wvzkqls and prescription medicines only as told by [...] 06/24/2006 Document Revised: 08/08/2019 Document Reviewed: 08/08/2019 [employer] Patient Education 2020 [employer] Follow Up Care 04/12/2022 19:25:17 With:ADRYAN MARIE Address: [address] [place], [place] [id number] [facility] (1) When:04/15/2022 20:55:24 Comments:Return to the emergency room if her headache gets worse, vertigo becomes persistent or any new symptoms [facility] Evaluation note 04-09-2022 Note Date [...] She was prescribed Zofran with no improvement. [facility] Other Evaluation note 04-02-2022 Note Date & [...] 3 days. No swimming for a week [facility] Other Clinical Note 10-25-2021 Note Date & Type Note Facility 10-25-2021 Note OPERATIVE NOTE PROCEDURE: Diagnostic laparoscopy. PREOPERATIVE DIAGNOSIS: Pelvic pain, dyspareunia dysmenorrhea. POSTOPERATIVE DIAGNOSIS: Pelvic pain, dyspareunia dysmenorrhea. ANESTHESIA: General. SURGEON: Devan Tello D.O. [employer] ARCHITECT: JAE Worley URINE OUTPUT: Yellow and clear. [...] taken to Recovery Room in stable condition. [facility] Signed and Approved by: DR DEVAN TELLO . 11/01/2021 17:31:00 [facility] Evaluation + Plan note Note Date & Type Note Facility Evaluation + Plan note No data available for this section [facility] Evaluation note Note Date & Type Note Facility Evaluation note No Information [facility] Other Evaluation note Note Date & Type [...] endometriosis Hospitalization History RSV as a baby [facility] [employer] Other Progress note Note Date & Type Note Facility Progress note No data available for this section [facility] Summary Purpose Family History No Family History Records FoundNo Family History Records FoundNo Family History Records Found Advance Directives No Advanced Directives Records FoundNo Advanced Directives Records FoundNo Advanced Directives Records Found Additional Source Comments REASON FOR VISIT (unrecogniz ed section and content) Reason Comments Routine Visit Care Team (unrecognized sect ion and content) [employer] Relationship Specialty Start Date End Date Adryan Marie MD [address] [place] [address] PCP - General Family Medicine 06/19/23 [employer] Relationship Specialty Start Date End Date Adryan Marie MD [address] [place] [address] PCP - General Family Medicine 06/19/23 INFORMATION SOURCE (unrecogn ized section and content) DATE CREATED AUTHOR 04/26/2022 [facility] DATE CREATED AUTHOR AUTHOR'S ORGANIZ ATION 09/19/2022 [facility] DATE CREATED AUTHOR AUTHOR'S ORGANIZ ATION 01/15/2024 [facility] FOR RECORDS PERTAINING TO PATIENTS [...] BE BASED ON THE PRIMARY CLINICAL RECORDS. [facility]. provides no warranty or guarantee of the accuracy or completeness of information in this document.
--- OUTSIDE RECORDS SUMMARY | 2024-01-16 07:49 | XMS_ITS | CCD ---
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[employer] Name Role Phone Deonna Back Unavailable DEFJAILENE, [...] Unavailable Defrance Adryan OBRIEN Primary Care Provider [phone] CYDNEY LEOS Attending Unavailable CYDNEY LEOS Attending Unavailable DEVAN TELLO Attending Unavailable CYDNEY LEOS Attending Unavailable DEVAN TELLO Attending Unavailable CYDNEY LEOS Attending Unavailable DEVAN TELLO Attending Unavailable CYDNEY LEOS Attending Unavailable DEVAN TELLO Attending Unavailable Allergies Allergy Classification Reported Allergen(s) Allergy Type Date of Onset Reaction(s) Facility (3 sources) Sulfacetamide Drug Allergy rash Novavax Other (1 source) Sulfonamides (Antibiotic); Translations: [sulfa drugs] Drug allergy Hyperpyrexia (finding) [facility] (1 source) Sulfonamides (Antibiotic) Drug allergy (disorder) 07-26-20 14 [facility] (3 sources) Sulfonamides (Antibiotic) Drug Intolerance 06-17-20 [...] BY MOUTH EVERY MORNING 0 10/06/2023 Active GS-Czp-WA-[place]-3 ( Gummies/DHA & FA) 0.4-32.5 MG chewable tablet (3 sources) Start: 06-19-2023 End: 06-18-2024 ST-Diz-PI-[place]-3 ( Gummies/DHA & FA) 0.4-32.5 MG chewable tablet Indications: Missed menses Chew 32.5 mg in the morning. 30 tablet 11 06/19/2023 06/18/2024 Active Completed/Discontinued Medications Medication Drug Class(es) Dates Sig (Normalized) Sig (Original) [id number] 200 actuat albuterol 0.09 mg/actuat metered dose [...] / neomycin 3.5 mg/ml / polymyxin b [id number] unt/ml otic suspension (3 sources) Aminoglycoside Antibacterial, Polymyxin-class Antibacterial, Corticosteroid Start: 04-02-2022 Neomycin-Polymyx in-HC 3.5-58321-4 3 drops left ear Three times a [...] UA Negative Negative - 4(70) +++ mg/dL [facility] Blood, UA Negative Negative - 50 Cedric/mcL [facility] Clarity, UA Clear Merged with [facility] re Color, UA Yellow [facility] Glucose, UA Negative Negative - 1999(110) ++++ mg/dL [facility] Interpretation and review of laboratory results Normal [facility] Ketones, UA Negative Negative - 160(16) ++++ mg/dL [facility] Leukocytes, UA Negative Negative - 500+++ Alessandro/mcL [facility] Nitrite, UA Negative Negative - Positive [facility] pH, UA 6.0 5 - 9 [facility] e Protein, UA Negative Negative - 1999(20) ++++ mg/dL [facility] Spec Grav, UA 1.020 1 - 1.03 [facility] Urobilinogen, UA 0.2 0.2 - 12 mg/dL [facility] e ALL CBC WITH AUTO DIFFon BASOPHILS ABSOLUTE AUTO 0.0 [facility] Basophils/100 WBC (Bld) 0.3 % 0.2 - 2.0 % [facility] Eosinophils/100 WBC (Bld) 1.0 % 0.9 - 7.0 % [facility] Erythrocyte distribution width (RBC) [Ratio] 12.5 % 11.0 - 15.0 % [facility] Hematocrit (Bld) [Volume fraction] 35.1 % Low 36.0 - 48.0 % [facility] Hem[facility] (Bld) [Mass/Vol] 11.7 g/dL Low 12.0 - 16.0 g/dL [facility] IMMATURE GRANULOCYTES ABS AUTO 0.08 High [facility] Immature granulocytes/100 WBC (Bld) 0.6 % High 0.0 - 0.5 % [facility] Interpretation and review of laboratory results Abnormal [facility] LYMPHOCYTES ABSOLUTE AUTO 1.6 [facility] Lymphocytes/100 WBC (Bld) 11.9 % Low 20.5 - 60.0 % [facility] MCH (RBC) [Entitic mass] 30.7 pg 26.7 - 34.0 pg [facility] MCHC (RBC) [Mass/Vol] 33.3 g/dL 29.9 - 35.2 g/dL [facility] MCV (RBC) [Entitic vol] 92.1 fL 81.0 - 99.0 fL [facility] MONOCYTES ABSOLUTE AUTO 0.8 [facility] Monocytes/100 WBC (Bld) 5.5 % 1.7 - 12.0 % [facility] NEUTROPHILS ABSOLUTE AUTO 11.1 High [facility] Neutrophils/100 WBC (Bld) 80.7 % High 43.0 - 75.0 % [facility] Platelet mean volume (Bld) [Entitic vol] 10.6 fL 9.5 - 13.5 fL [facility] are TBH EO # 0.1 [facility] e TBH PLT 292 NOM [facility] TBH RBC 3.81 Low [facility] TBH WBC 13.8 High [facility] e [facility] NOM [facility] e CBC AUTO DIFFon 09-14-2022 BASO # 0.0 103/ul Normal 0.0-0.1 [facility] Comment on above: Performed By: #### B GURPREET, TSH #### [facility] [address] [place] [address] Dr. Reema Mireles Basophils/100 WBC (Bld) 0.6 % Normal 0.2-2.0 [facility] Comment on above: Performed By: #### B GURPREET, TSH #### [facility] [address] [place] [address] Dr. Reema Mireles EO # 0.0 103/ul Normal 0.0-0.7 [facility] Comment on above: Performed By: #### B GURPREET, TSH #### [facility] [address] [place] [address] Dr. Reema Mireles Eosinophils/100 WBC (Bld) 0.6 % Critically low 0.9-7.0 [facility] Comment on above: Performed By: #### B GURPREET, TSH #### [facility] [address] [place] [address] Dr. Reema Mireles Erythrocyte distribution width (RBC) [Ratio] 11.9 % Normal 11.0-15.0 [facility] Comment on above: Performed By: #### B GURPREET, TSH #### [facility] [address] [place] [address] Dr. Reema Mireles Hematocrit (Bld) [Volume fraction] 37.8 % Normal 36.0-48.0 [facility] Comment on above: Performed By: #### B GURPREET, TSH #### [facility] [address] [place] [address] Dr. Reema Mireles Hemoglobin (Bld) [Mass/Vol] 13.5 g/dL Normal 12.0-16.0 [facility] Comment on above: Performed By: #### Inna VÁZQUEZ, TSH #### [facility] [address] [place] [address] Dr. Reema Mireles IG # 0.01 10e3/ul Normal 0.00-0.03 [facility] Comment on above: Performed By: #### B GURPREET, TSH #### [facility] [address] [place] [address] Dr. Reema Mireles IG % 0.2 % Normal 0.0-0.5 [facility] Comment on above: Performed By: #### B GURPREET, TSH #### [facility] [address] [place] [address] Dr. Reema Mireles LYMPH # 1.6 103/ul Normal 1.2-3.8 [facility] Comment on above: Performed By: #### B GURPREET, TSH #### [facility] [address] [place] [address] Dr. Reema Mireles Lymphocytes/100 WBC (Bld) 25.5 % Normal 20.5-60.0 [facility] Comment on above: Performed By: #### B GURPREET, TSH #### [facility] [address] [place] [address] Dr. Reema Mireles MANUAL DIFF REQ NO Normal [facility] Comment on above: Performed By: #### B GURPREET, TSH #### [facility] [address] [place] [address] Dr. Reema Mireles MCH (RBC) [Entitic mass] 30.9 pg Normal 26.7-34.0 [facility] Comment on above: Performed By: #### B GURPREET, TSH #### [facility] [address] [place] [address] Dr. Reema Mireles MCHC (RBC) [Mass/Vol] 35.7 g/dL Critically high 29.9-35.2 [facility] Comment on above: Performed By: #### B GURPREET, TSH #### [facility] [address] [place] [address] Dr. Reema Mireles MCV (RBC) [Entitic vol] 86.5 fL Normal 81.0-99.0 [facility] Comment on above: Performed By: #### B GURPREET, TSH #### [facility] [address] [place] [address] Dr. Reema Mireles MONO # 0.5 103/ul Normal 0.3-0.8 [facility] Comment on above: Performed By: #### B GURPREET, TSH #### [facility] [address] [place] [address] Dr. Reema Mireles Monocytes/100 WBC (Bld) 8.5 % Normal 1.7-12.0 [facility] Comment on above: Performed By: #### B GURPREET, TSH #### [facility] [address] [place] [address] Dr. Reema Mireles NEUT # 4.1 103/ul Normal 1.4-6.5 [facility] Comment on above: Performed By: #### B GURPREET, TSH #### [facility] [address] [place] [address] Dr. Reema Mireles Neutrophils/100 WBC (Bld) 64.6 % Normal 43.0-75.0 [facility] Comment on above: Performed By: #### B GURPREET, TSH #### [facility] [address] [place] [address] Dr. Reema Mireles Platelet mean volume (Bld) [Entitic vol] 9.9 fL Normal 9.5-13.5 [facility] Comment on above: Performed By: #### B MP, TSH #### [facility] [address] [place] [address] Dr. Reema Mireles PLT 403 103/ul Normal 150-450 [facility] Comment on above: Performed By: #### B MP, TSH #### [facility] [address] [place] [address] Dr. Reema Mireles RBC 4.37 106/ul Normal 4.20-5.40 [facility] Comment on above: Performed By: #### B MP, TSH #### [facility] [address] [place] [address] Dr. Reema Mireles WBC 6.3 103/ul Normal 4.0-11.0 [facility] Comment on above: Performed By: #### B GURPREET, TSH #### [facility] [address] [place] [address] Dr. Reema Mireles PROF 14(COMP METB)on 09-14- 022 Albumin [Mass/Vol] 4.3 g/dL Normal 3.4-5.0 [facility] Comment on above: Performed By: #### B GURPREET, TSH #### [facility] [address] [place] [address] Dr. Reema Mireles Albumin/Globulin [Mass ratio] 1.2 {ratio} Normal [facility] Comment on above: Performed By: #### B MP, TSH #### [facility] [address] [place] [address] Dr. Reema Mirelse ALP [Catalytic activity/Vol] 79 U/L Normal 46-116 [facility] Comment on above: Performed By: #### B MP, TSH #### [facility] [address] [place] [address] Dr. Reema Mireles ALT [Catalytic activity/Vol] 31 U/L Normal 14-59 [facility] Comment on above: Performed By: #### B MP, TSH #### [facility] [address] [address] [address] Reema Mireles Anion gap [Moles/Vol] 12.1 mmol/L Normal [facility] Comment on above: Performed By: #### B MP, TSH #### [facility] [address] [address] [address] Reema Mireles AST [Catalytic activity/Vol] 17 U/L Normal 15-37 [facility] Comment on above: Performed By: #### B MP, TSH #### [facility] [address] [address] [address] Reema Mireles Bilirubin [Mass/Vol] 0.4 mg/dL Normal 0.2-1.0 [facility] Comment on above: Performed By: #### B MP, TSH #### [facility] [address] [address] [address] Reema Mireles Calcium [Mass/Vol] 8.9 mg/dL Normal 8.5-10.1 [facility] Comment on above: Performed By: #### B MP, TSH #### [facility] [address] [address] [address] Reema Mireles Chloride [Moles/Vol] 98 mmol/L Normal 98-107 [facility] Comment on above: Performed By: #### B MP, TSH #### [facility] [address] [address] [address] Reema Mireles CO2 [Moles/Vol] 27.0 mmol/L Normal 21.0-32.0 [facility] Comment on above: Performed By: #### B MP, TSH #### [facility] [address] [address] [address] Reema Mireles Creatinine [Mass/Vol] 0.65 mg/dL Normal 0.55-1.02 [facility] Comment on above: Performed By: #### B MP, TSH #### [facility] [address] [address] [address] Reema Mireles EGFR-AF SWISS >60 Normal >=60 [facility] Comment on above: Performed By: #### B MP, TSH #### [facility] [address] [address] [address] Reema Mireles EGFR-NON AF SWISS >60 Normal >=60 [facility] Comment on above: Performed By: #### B MP, TSH #### [facility] [address] [address] [address] Reema Mireles Globulin (S) [Mass/Vol] 3.5 g/dL Normal [facility] Comment on above: Performed By: #### B MP, TSH #### [facility] [address] [address] [address] Reema Mireles Glucose [Mass/Vol] 106 mg/dL Normal 74-106 [facility] Comment on above: Performed By: #### B GURPREET, TSH #### [facility] [address] [place] [address] Dr. Reema Mireles Potassium [Moles/Vol] 3.1 mmol/L Critically low 3.5-5.1 [facility] Comment on above: Performed By: #### B GURPREET, TSH #### [facility] [address] [place] [address] Dr. Reema Mireles Protein [Mass/Vol] 7.8 g/dL Normal 6.4-8.2 [facility] Comment on above: Performed By: #### B GURPREET, TSH #### [facility] [address] [place] [address] Dr. Reema Mireles Sodium [Moles/Vol] 134 mmol/L Critically low 136-145 [facility] Comment on above: Performed By: #### B GURPREET, TSH #### [facility] [address] [place] [address] Dr. Reema Mireles Urea nitrogen [Mass/Vol] 6.0 mg/dL Critically low 7.0-18.0 [facility] Comment on above: Performed By: #### B GURPREET, TSH #### [facility] [address] [place] [address] Dr. Reema Mireles Urea nitrogen/Creatinine [Mass ratio] 9.2 mg/mg Normal [facility] Comment on above: Performed By: #### B GURPREET, TSH #### [facility] [address] [place] [address] Dr. Reema Mireles ACETONE SERUMon 08-11-2022 ACETONE Negative Normal NEGATIVE [facility] Comment on above: Performed By: #### B MP, TSH #### [facility] [address] [place] [address] Dr. Reema Mireles CBC AUTO DIFFon 08-11-2022 BASO # 0.1 103/ul Normal 0.0-0.1 [facility] Comment on above: Performed By: #### B MP, TSH #### [facility] [address] [place] [address] Dr. Reema Mireles Basophils/100 WBC (Bld) 0.5 % Normal 0.2-2.0 [facility] Comment on above: Performed By: #### B MP, TSH #### [facility] [address] [place] [address] Dr. Reema Mireles EO # 0.1 103/ul Normal 0.0-0.7 [facility] Comment on above: Performed By: #### B MP, TSH #### [facility] [address] [place] [address] Dr. Reema Mireles Eosinophils/100 WBC (Bld) 0.7 % Critically low 0.9-7.0 [facility] Comment on above: Performed By: #### B MP, TSH #### [facility] [address] [place] [address] Dr. Reema Mireles Erythrocyte distribution width (RBC) [Ratio] 11.7 % Normal 11.0-15.0 [facility] Comment on above: Performed By: #### B MP, TSH #### [facility] [address] [place] [address] Dr. Reema Mireles Hematocrit (Bld) [Volume fraction] 37.6 % Normal 36.0-48.0 [facility] Comment on above: Performed By: #### B MP, TSH #### [facility] [address] [place] [address] Dr. Reema Mireles Hemoglobin (Bld) [Mass/Vol] 13.1 g/dL Normal 12.0-16.0 [facility] Comment on above: Performed By: #### B MP, TSH #### [facility] [address] [address] [address] Reema Mireles IG # 0.02 10e3/ul Normal 0.00-0.03 [facility] Comment on above: Performed By: #### B MP, TSH #### [facility] [address] [address] [address] Reema Mireles IG % 0.2 % Normal 0.0-0.5 [facility] Comment on above: Performed By: #### B MP, TSH #### [facility] [address] [place] [address] Dr. Reema Mireles LYMPH # 2.7 103/ul Normal 1.2-3.8 [facility] Comment on above: Performed By: #### B MP, TSH #### [facility] [address] [place] [address] Dr. Reema Mireles Lymphocytes/100 WBC (Bld) 28.5 % Normal 20.5-60.0 [facility] Comment on above: Performed By: #### B MP, TSH #### [facility] [address] [address] [address] Reema Mireles MANUAL DIFF REQ NO Normal [facility] Comment on above: Performed By: #### B MP, TSH #### [facility] [address] [place] [address] Dr. Reema Mireles MCH (RBC) [Entitic mass] 30.3 pg Normal 26.7-34.0 [facility] Comment on above: Performed By: #### B MP, TSH #### [facility] [address] [address] [address] Reema Mireles MCHC (RBC) [Mass/Vol] 34.8 g/dL Normal 29.9-35.2 [facility] Comment on above: Performed By: #### B MP, TSH #### [facility] [address] [place] [address] Dr. Reema Mireles MCV (RBC) [Entitic vol] 87.0 fL Normal 81.0-99.0 [facility] Comment on above: Performed By: #### B MP, TSH #### [facility] [address] [address] [address] Reema Mireles MONO # 0.8 103/ul Normal 0.3-0.8 [facility] Comment on above: Performed By: #### B MP, TSH #### [facility] [address] [place] [address] Dr. Reema Mireles Monocytes/100 WBC (Bld) 8.2 % Normal 1.7-12.0 [facility] Comment on above: Performed By: #### B MP, TSH #### [facility] [address] [place] [address] Dr. Reema Mireles NEUT # 5.9 103/ul Normal 1.4-6.5 [facility] Comment on above: Performed By: #### B MP, TSH #### [facility] [address] [place] [address] Dr. Reema Mireles Neutrophils/100 WBC (Bld) 61.9 % Normal 43.0-75.0 [facility] Comment on above: Performed By: #### B MP, TSH #### [facility] [address] [place] [address] Dr. Reema Mireles Platelet mean volume (Bld) [Entitic vol] 10.2 fL Normal 9.5-13.5 [facility] Comment on above: Performed By: #### B MP, TSH #### [facility] [address] [place] [address] Dr. Reema Mireles PLT 382 103/ul Normal 150-450 [facility] Comment on above: Performed By: #### B MP, TSH #### [facility] [address] [place] [address] Dr. Reema Mireles RBC 4.32 106/ul Normal 4.20-5.40 [facility] Comment on above: Performed By: #### B MP, TSH #### [facility] [address] [place] [address] Dr. Reema Mireles WBC 9.6 103/ul Normal 4.0-11.0 [facility] Comment on above: Performed By: #### B MP, TSH #### [facility] [address] [place] [address] Dr. Reema Mireles CRPon 08-11-2022 CRP [Mass/Vol] mg/L Normal <=1.0 [facility] Comment on above: Performed By: #### B MP, TSH #### [facility] [address] [place] [address] Dr. Reema Mireles ER URINE PROFILEon Bilirubin Ql (U) Negative Normal NEGATIVE [facility] Comment on above: Performed By: #### B MP, TSH #### [facility] [address] [place] [address] Dr. Reema Mireles Clarity (U) CLEAR Normal CLEAR [facility] Comment on above: Performed By: #### B MP, TSH #### [facility] [address] [place] [address] Dr. Reema Mireles Color (U) LT. YELLOW Normal YELLOW [facility] Comment on above: Performed By: #### B MP, TSH #### [facility] [address] [place] [address] Dr. Reema Mireles ERUJohana A micrscopic examination will be performed if indicated. Normal [facility] Comment on above: Performed By: #### B MP, TSH #### [facility] [address] [place] [address] Dr. Reema Mireles Glucose Ql (U) Negative Normal NEGATIVE [facility] Comment on above: Performed By: #### B MP, TSH #### [facility] [address] [place] [address] Dr. Reema Mireles Hemoglobin Ql (U) Negative Normal NEGATIVE The [facility] Comment on above: Performed By: #### B MP, TSH #### [facility] [address] [place] [address] Dr. Reema Mireles Ketones Ql (U) Negative Normal NEGATIVE [facility] Comment on above: Performed By: #### B MP, TSH #### [facility] [address] [place] [address] Dr. Reema Mirelse LEUKOCYTES Negative Normal NEGATIVE [facility] Comment on above: Performed By: #### B MP, TSH #### [facility] [address] [place] [address] Dr. Reema Mireles Nitrite Ql (U) Negative Normal NEGATIVE [facility] Comment on above: Performed By: #### B MP, TSH #### [facility] [address] [place] [address] Dr. Reema Mireles pH (U) 5.5 [pH] Normal 5-9 [facility] Comment on above: Performed By: #### B MP, TSH #### [facility] [address] [place] [address] Dr. Reema Mireles SPEC GRAVITY <=1.005 Abnormal 1.005-<=1.025 [facility] Comment on above: Performed By: #### B MP, TSH #### [facility] [address] [place] [address] Dr. Reema Mireles UA PROTEIN Negative Normal NEGATIVE/ TRACE [facility] Comment on above: Performed By: #### B MP, TSH #### [facility] [address] [place] [address] Dr. Reema Mireles UR MICRO IND NOT INDICATED Normal [facility] Comment on above: Performed By: #### B MP, TSH #### [facility] [address] [place] [address] Dr. Reema Mireles Urobilinogen Qn (U) 0.2 {Renny'U}/dL Normal 0.2 - 1. 0 [facility] Comment on above: Performed By: #### B MP, TSH #### [facility] [address] [place] [address] Dr. Reema Mireles LIPASEon 08-11-2022 Lipase [Catalytic activity/Vol] 71.0 U/L Critically low 73.0-393.0 [facility] Comment on above: Performed By: #### B MP, TSH #### [facility] [address] [place] [address] Dr. Reema Mireles URon 08-11-2022 , QUAL Negative Normal NEGATIVE [facility] Comment on above: Performed By: #### C VDTBH #### [facility] [address] [address] [address] Reema Mireles PROF 14(COMP METB)on 022 Albumin [Mass/Vol] 4.3 g/dL Normal 3.4-5.0 [facility] Comment on above: Performed By: #### B MP, TSH #### [facility] [facility] [address] [place] [address] Dr. Reema Mireles Albumin/Globulin [Mass ratio] 1.2 {ratio} Normal [facility] Comment on above: Performed By: #### B MP, TSH #### [facility] [address] [place] [address] Dr. Reema Mireles ALP [Catalytic activity/Vol] 70 U/L Normal 46-116 [facility] Comment on above: Performed By: #### B MP, TSH #### [facility] [address] [place] [address] Dr. Reema Mireles ALT [Catalytic activity/Vol] 16 U/L Normal 14-59 [facility] Comment on above: Performed By: #### B MP, TSH #### [facility] [address] [address] [address] Reema Mireles Anion gap [Moles/Vol] 10.5 mmol/L Normal [facility] Comment on above: Performed By: #### B MP, TSH #### [facility] [address] [address] [address] Reema Mireles AST [Catalytic activity/Vol] 8 U/L Critically low 15-37 [facility] Comment on above: Performed By: #### B MP, TSH #### [facility] [address] [address] [address] Reema Mireles Bilirubin [Mass/Vol] 0.3 mg/dL Normal 0.2-1.0 [facility] Comment on above: Performed By: #### B MP, TSH #### [facility] [address] [place] [address] Dr. Reema Mireles Calcium [Mass/Vol] 9.0 mg/dL Normal 8.5-10.1 [facility] Comment on above: Performed By: #### B MP, TSH #### [facility] [address] [address] [address] Reema Mireles Chloride [Moles/Vol] 104 mmol/L Normal 98-107 [facility] Comment on above: Performed By: #### B MP, TSH #### [facility] [address] [address] [address] Reema Mireles CO2 [Moles/Vol] 26.5 mmol/L Normal 21.0-32.0 [facility] Comment on above: Performed By: #### B MP, TSH #### [facility] [address] [address] [address] Reema Mireles Creatinine [Mass/Vol] 0.79 mg/dL Normal 0.55-1.02 [facility] Comment on above: Performed By: #### B MP, TSH #### [facility] [address] [address] [address] Reema Mireles EGFR-AF SWISS >60 Normal >=60 [facility] Comment on above: Performed By: #### B MP, TSH #### [facility] [address] [address] [address] Reema Mireles EGFR-NON AF SWISS >60 Normal >=60 [facility] Comment on above: Performed By: #### B MP, TSH #### [facility] [address] [address] [address] Reema Mireles Globulin (S) [Mass/Vol] 3.5 g/dL Normal [facility] Comment on above: Performed By: #### B MP, TSH #### [facility] [address] [place] [address] Dr. Reema Mireles Glucose [Mass/Vol] 106 mg/dL Normal 74-106 [facility] Comment on above: Performed By: #### B MP, TSH #### [facility] [address] [address] [address] Reema Mireles Potassium [Moles/Vol] 3.0 mmol/L Critically low 3.5-5.1 [facility] Comment on above: Performed By: #### B MP, TSH #### [facility] [address] [address] [address] Reema Mireles Protein [Mass/Vol] 7.8 g/dL Normal 6.4-8.2 [facility] Comment on above: Performed By: #### B MP, TSH #### [facility] [address] [place] [address] Dr. Reema Mireles Sodium [Moles/Vol] 138 mmol/L Normal 136-145 [facility] Comment on above: Performed By: #### B MP, TSH #### [facility] [address] [place] [address] Dr. Reema Mireles Urea nitrogen [Mass/Vol] 8.0 mg/dL Normal 7.0-18.0 [facility] Comment on above: Performed By: #### B MP, TSH #### [facility] [address] [place] [address] Dr. Reema Mireles Urea nitrogen/Creatinine [Mass ratio] 10.1 mg/mg Normal [facility] Comment on above: Performed By: #### B MP, TSH #### [facility] [address] [place] [address] Dr. Reema Mireles PROTIMEon 08-11-2022 INR Coag (PPP) [Relative time] 1.00 {INR} Normal [facility] Comment on above: Performed By: #### P T, PTT #### [facility] [address] [place] [address] Dr. Reema Mireles INR GUIDELINES SEE BELOW Normal [facility] Comment on above: Result Comment: FELICIANO RED INR: 2.0 - 3.0 CONDITIONS NOT LISTED BELOW 2.5 - 3.5 FOR PROSTHETIC HEART VALVE REPLACEMENT 2.5 - 3.5 RECURRENT THROMBOSIS Performed By: #### P T, PTT #### [facility] [address] [place] [address] Dr. Reema Mireles PT Coag (PPP) [Time] 10.8 s Normal 9.0-11.6 [facility] Comment on above: Performed By: #### P T, PTT #### [facility] [address] [place] [address] Dr. Reema Mireles PTTon 08-11-2022 aPTT Coag (Bld) [Time] 30.8 s Normal 22.3-36.2 [facility] Comment on above: Performed By: #### P T, PTT #### [facility] [address] [place] [address] Dr. Reema Mireles [facility] 10 mm/hr Normal <=20 [facility] Comment on above: Performed By: #### B MP, TSH #### [facility] [address] [place] [address] Dr. Reema Mireles TSHon 08-11-2022 TSH 3.313 uIU/mL Normal 0.358-3.740 [facility] Comment on above: Performed By: #### B MP, TSH #### [facility] [address] [place] [address] Dr. Reema Mireles Discharge Instructionson Discharge Instructions [id number] #1.00CD:127 Normal [facility] Comment on above: Other Comment: wrong patient STOOL CULTUREon 04-20-2022 Campylobacter Culture Final report Normal [facility] Comment on above: Performed By: #### B MP, TSH #### [facility] [address] [place] [address] Dr. Reema Mireles E coli Shiga Toxin EIA Negative Normal Negative [facility] Comment on above: Performed By: #### B MP, TSH #### [facility] [address] [place] [address] Dr. Reema Mireles Result 1 Comment Normal [facility] Comment on above: Result Comment: No S almonella or Shigella recovered. Performed By: #### B MP, TSH #### [facility] [address] [place] [address] Dr. Reema Mireles Result Comment: No C ampylobacter species isolated. Salmonella/Shigella Screen Final report Normal [facility] Comment on above: Performed By: #### B MP, TSH #### [facility] [address] [place] [address] Dr. Reema Mireles Coding Summary.on 04-14-2022 Coding Summary. CD:[id number] Gh0bWw+PGhlYWQ+PE1FV CFdS22yoIQopW8TY9xPS X9UBXUMEHKPXI1CTF9tv JQ8QSmtG1BpxnFp VhumpREnJJ44PXj7AWZ7 zEguDEvuvD7emZIwV2z0 BkHrGV78tJ92LWofAEOq NiD3OaGbokvmzSMz R1rjIcDrjTGiYsf+PHRh YmxlIHdpZHRoPScxMDAl FdLofZmtQL9pNs2dNEEx LWNvbGxhcHNlOiBj d3zhJFJqZLxaWP4wqCro C8QqvVI2ASXnw0t7Mr94 dHI+JZIjQDQ8tMyaHMbt p535MoImt3kkSWM7 uGWxOAqnNLL4Q16jn6M3 KNRmLFQmDZD8nOZ2jB5f uNrngoztW3XxeWYpYaJ2 WJE3wNIavB5fuQgn reqtjQ0uUjy+O55VRI2I IYPEPX0YAix2J8NqVgsk dHI+RY13QDXaNK67zDUq xJZyv1vilAm8LlMs DLLnCXH6nImiLKxfd2If BZLvC09jzQOza6N6WJOg kQwqkAIxKfXyyKP4cF0n PRzedshpq2hvyjah Cnmri3qyxl24rA59S31j JXboXHJlFLK2YQZpNUSk aYendn1qaW6nZi1+IDxj f6wzh6mxfJt9VnGe YFKnemQadBawZOI6v0Rh Dn48V8IaxLbwk7HgRpe6 bv30yKVca6Z7gXM7CXzb JAFuwR6rTWkqLxT0 GTOiDpDmsB72qKDeGXwg In7qdEethDykWE1qQELk zghpEHNpiY4rNDNquHPs eTxmMP4aMEXcwkun k081BfHjSPF1FWLsnDFs N2SoaY9cRsOcKZQoOKLq D8RtgOBhDPtbF528PDqf PnQ0RKUuntZyV0Kf XBAppSgcBfZ1c8K7Wh2P w5RgzhocTZJ2FNopMAE3 VwF3EySlQzA7D3SiWoa8 QGXtbDqwYO1jV6Oz ZBSthkcoyavfdZA2WSLd MWLafY01jXZjUZrqCc3m s2A4z233UVDiRQConC42 Gh1yeLbtDXMlgGHF dE5womjhb3bctawpEoSy THYyAFy3RHk2WZTkuRsp AnBkZJK8QmJ5SDL8wBRe zC5uqVhtflsjdQ3s Oyc+Y18fcE4jIHK1USA2 wtipLQSoceTwEC66TK17 G2TsSirtqVTsiEY+PGRp emFabVwnNI5aAqFc q9ktb3PeTThrV8GrVPFe OQrlExq9ROHvFPF3pEV7 eS9pCRKsUJolj2T1rBL6 H2WrkhCvey7cd8sz WUOuHUtsX32kqYAbr7W7 WIWjbUV9BSUpqOglAyUu aU76Yfm+RKOkgLdzz3Su Intnw9lix6fvwPt6 IjMwJSIgdmFsaWduPSJ0 k6LlWv73H44eSStgBAXv XZVhVWDgKDBniCqmfn1e yG8lVd8+PGNvbCB3 mQZ7nC6vROLyIgO1CHnt I219GxFxlDUxAygbl6qp m7sniCu0VvVmSHDttlNd eOihVOC5r2YcNs02 Q95jNKolVBFsTGSvHBWq OGIuyNxhbx8zgC9xSy2+ PH4qp9adjd89jR61uPN+ CVJyMMT5fDtaHZwo YNIbmB9nYPogCnB8FUIx PgQlcN79fOWyBCdoWq0b yViheTptXK4tUVTaowzr k027BtXcu1fjRRYq gYBkBGlcCVR6V82px8P0 CHXkRBLuETT4rWW0fC4d bGlnbjogbGVmdDsgdmVy xYaxSGsyCDjoB699 IHRvcDsnPlBhdGllbnQg TzIcJPf8M4VpInc5ARUy hRjeCF6kcTIbCJzlSb4n nBlmlPbuKH6aHGIp wszmq102QxDba0hzRLOj eCQgSHanXDS6L21gv6I5 BMOrNBEmVLV0kSS1tF1r bGlnbjogbGVmdDsg vxDtwFjbNLdwUQlxP519 IHRvcDsnPkJpcnRoIERh qGG5VC08HF78tKNyd9N1 tUK2W4MrAUNxjqdg hwqitWA5WHUvZPMftP55 Ge8qmQnmKt0gPBJuWEF1 SAAsaUCpS3KabB8kJoEy IZBnUCMeK6OkrUNr UUsmD354POqgOvB4QAMa oaRkI8IfDUPeiUliLlD3 b5L5Ok7LB3S5CI28QW62 uQJrg2W4qYD3B3Yf WAWfyixhkzajyCX3RMYz XQHwlL61Ir9qiGdfAw7e GGOqFOP5CAYzvAFgO6Ey mX0aOwRsKSFiLUNh O6MbnMFiZAzxR870XOwy XlW1WREounCwZ4EtXUOp oJivKtF4x4S8Bv4MLSw6 CE75BS67rHDzv9J9 cLK1T2XzMZSksqkcelrg pTI6SYVqZPZiwG08Lu3r zGuoVm8jVIKyDPV1VZYp mOLwP9UwhQ0gWhIc ZORgNWSgC7HvfYOkDXdv Z755OQaxSsS6VCLnemRm T3HcYMRwpFhvOwF8q9C9 Ke6XMSToHH15CAF6 fQW9TZ43MF40U4MsExbs dGFibGU+PHRhYmxlIHdp ZHRoPScxMDAlJyBzdHls TG5gHt2eVBFqAILc mGbufOAcOqNwy7keMCOx NXtnSL4dsQtoL3ZykXX2 LFYqk9y7Eg86Y78cG6Ou dXA+BJHnqSA0zYJ3 wU5gOpGfHbD1LGwqF588 LoElxIJfNcfll6zza1dh yTz8MyF5FMGtsnWwqSdz SYY4t6RkFn78V20z IHdpZHRoPSIxNSUiIHZh iVjvwy7ozR8hJc8+PGNv xKF5wAO9sF8bMuKjQyY3 KOuwA415ZzOitHNo Txnna1qqw5oqzJp6OpOw TOYkbrUnjJhuRZE5a2Kk Nd75C2VslMotv5UsPpg2 dt45yVGby5T5yAI6 G8QqTGFdqkyyxNVnvMdb QJ7mMONjjirmAJTriJ7d VOInQ4l2PyIqVqA8SDbt Q7HoptI7NADfoXOx ZEylUHT3P03ib0W9FFEy GDAgDLI3tNW9kG9wgBon bjogbGVmdDsgdmVydGlj NHubLEayR093ZYYs uMlzVOAosZ7mPXHuhSBi yHwkNF2eFLWhiszyDalD ZJGUW76NB4zYEWFIVAGY QRP9R5MdUfc0DVUr hLopOF4igFFfEMnoRo5c eOtryOxuKG0zMDDuclbj ODCsvL9mRAHacXUwnKdd GS1pUGCgimfiq432 FyDqQWO5ZKWtmEPvZ2Yk tW8tGpVqJGFnQFMgY8My nMNiZPcpJ742ZXfxOkH8 LRFdkkRuM6HfFUOa pGftAuX3z7N4Cz2kXv1z SC1nUUNvNW03JL24xICb n6X3jMJ9I7CiCDGrkrmw zuwmzLI1BEQpMFMy qC21oAKqWVtlSy3og8V7 t445IZEoKCZseM25Jw0j hLagRIQewMQTiS1gvfry q9wururwKdJxIPEx GJd6JIx0WUGitJkqAnNm KGV8WrX4NAJ3kTPugR5m dDnxbkqyeM7iBrb+MjAg AVUgkiG1N5RoQtl7 TRQdtUljDB5wwWCcFQoj Dj2fjHvxbCopWJ9xCYBb qnyfKPClsZ8tUWBrbZEh yLjcON5cFBPwbzzc v231EsYfRQR3TYCrsHVz O4CdpH0eTeCySMVcGMRs D9QbjJPiDUxyO018FIlh IeG3KZOdtbCoB6Bw HNKdxPxmRxW8f6D6Fk1L YU0xmNF3R2PdRue4PEKu qZsgTA8mfKChUTvbNz3d wDjpaSfgKJ8bILOa mrtlTKFunX5fCQHrmGJs sUudMP6vWZSjmrykx004 XcYtDNF5XNKwkVLuD5Kg sO3bUuAkUPFxXVMj K7QphIYeQNlyO228HQge TpY4RUKjedJeN4XuYEKl aQtzAhC7g8O9Bi9DrTFj R4JlS7v2F4RaHnuy dHI+SH46BFMiXE95lLRv yUIhu1ptrTd9GbScILYw XCI4iRieLVaoz0YdUZPv G50szEOdi2S9KUMk yDvghSWqEqHsiCO8cR5u VRgpygaww0citnbcBodu a5kqnc30qJ18K65yIJwd ZHRoPSIzMCUiIHZh xQvfpv7jhT3nUd0+PGNv lCB3jCX7xJ6qMqTzZsR0 NPfbQ683PvZsiRTlAvjs q2gxr9besXd4PoHa XYNmkgRhdRvqYMY4p7Hf Oy33N68pWZiaDENsQKVf BNVlHWQsvYbeyj1zpH9q Ii8+AW0lh4cwbi24 aG50pQV+TRPxUAX6nDxm OIpuZPZgvX5cKIyfOoV3 OVPsPqRneL88aKHmFYyk Is1rbUpxbNweRV2i SIZujknbx289FjWlg6nm CAUwjPYvQGudDYT8A07g d6G0QYQnDWNjYMO0zFH1 xN6lcRvftewkmHIz dDsgdmVydGljYWwtYWxp N445LUAevIkwSgVbiHJd H5biysQATC9tAttpzJL+ BDAzLML9rHeaIHmr XHKbgV2fMFKpN9o2IzWh OwD5ULtvW3CuktD8DKRy iUFiPJBzkCMBqN6ikpbu o0kzjpsiSeMyLRIv UVd4DZf2OCBihCizVdDc QAY0IgT4VXX5nZFhpM2d aQbaflpolG8tNqy+RklO OjwvdGQ+PHRkIHN0 hHeqLOetNWCprV7oUBOb D2v3NeJiBhH7GTzqT0Aq shO7EVEneWOcYQIlvXQV kA7uxtith7ftdxov TfOqMSRrMPq7IOg8GJGw qNrlNeFdYLZ2RuT3PQH4 uAOxiO5cqLziprqofD8n Oyc+TVJOOjwvdGQ+ OOQiGZO2eDjuESmoHKMp zJ9eZRCaD4q8UjZbDtW8 ELuwN2DjgmV3DQPwpUIo TMBilBSTaL1fqjzs t3jhxeqmQuKvWLMyPXb0 HOa5YRJccVcyRwClRFK1 UpM4EWX8zOZlyI0xsPtl ufnwhZ5iWhm+UGF5 YUP3BZ95MU91G1GfAwia dGFibGU+PHRhYmxlIHdp ZHRoPScxMDAlJyBzdHls IB1pTy0qYYUvMYQr bGxh (more content not included)... Normal [facility] CBC AUTO DIFFon 04-13-2022 BASO # 0.1 103/ul Normal 0.0-0.1 [facility] Comment on above: Performed By: #### C VDTBH #### [facility] [address] [place] [address] Dr. Reema Mireles Basophils/100 WBC (Bld) 0.6 % Normal 0.2-2.0 [facility] Comment on above: Performed By: #### C VDTBH #### [facility] [address] [place] [address] Dr. Reema Mireles EO # 0.0 103/ul Normal 0.0-0.7 [facility] Comment on above: Performed By: #### C VDTBH #### [facility] [address] [place] [address] Dr. Reema Mireles Eosinophils/100 WBC (Bld) 0.2 % Critically low 0.9-7.0 [facility] Comment on above: Performed By: #### C VDTBH #### [facility] [address] [place] [address] Dr. Reema Mireles Erythrocyte distribution width (RBC) [Ratio] 11.4 % Normal 11.0-15.0 [facility] Comment on above: Performed By: #### C VDTBH #### [facility] [address] [place] [address] Dr. Reema Mireles Hematocrit (Bld) [Volume fraction] 38.3 % Normal 36.0-48.0 [facility] Comment on above: Performed By: #### C VDTBH #### [facility] [address] [address] [address] Reema Mireles Hemoglobin (Bld) [Mass/Vol] 13.4 g/dL Normal 12.0-16.0 [facility] Comment on above: Performed By: #### C VDTBH #### [facility] [address] [place] [address] Dr. Reema Mireles IG # 0.01 10e3/ul Normal 0.00-0.03 [facility] Comment on above: Performed By: #### C VDTBH #### [facility] [address] [place] [address] Dr. Reema Mireles IG % 0.1 % Normal 0.0-0.5 [facility] Comment on above: Performed By: #### C VDTBH #### [facility] [address] [place] [address] Dr. Reema Mireles LYMPH # 1.8 103/ul Normal 1.2-3.8 [facility] Comment on above: Performed By: #### C VDTBH #### [facility] [address] [place] [address] Dr. Reema Mireles Lymphocytes/100 WBC (Bld) 22.2 % Normal 20.5-60.0 [facility] Comment on above: Performed By: #### C VDTBH #### [facility] [address] [place] [address] Dr. Reema Mireles MANUAL DIFF REQ NO Normal [facility] Comment on above: Performed By: #### C VDTBH #### [facility] [address] [place] [address] Dr. Reema Mireles MCH (RBC) [Entitic mass] 30.6 pg Normal 26.7-34.0 [facility] Comment on above: Performed By: #### C VDTBH #### [facility] [address] [place] [address] Dr. Reema Mireles MCHC (RBC) [Mass/Vol] 35.0 g/dL Normal 29.9-35.2 [facility] Comment on above: Performed By: #### C VDTBH #### [facility] [address] [place] [address] Dr. Reema Mireles MCV (RBC) [Entitic vol] 87.4 fL Normal 81.0-99.0 [facility] Comment on above: Performed By: #### C VDTBH #### [facility] [address] [place] [address] Dr. Reema Mireles MONO # 0.7 103/ul Normal 0.3-0.8 [facility] Comment on above: Performed By: #### C VDTBH #### [facility] [address] [place] [address] Dr. Reema Mireles Monocytes/100 WBC (Bld) 8.2 % Normal 1.7-12.0 [facility] Comment on above: Performed By: #### C VDTBH #### [facility] [address] [place] [address] Dr. Reema Mireles NEUT # 5.5 103/ul Normal 1.4-6.5 [facility] Comment on above: Performed By: #### C VDTB #### [facility] [address] [place] [address] Dr. Reema Mireles Neutrophils/100 WBC (Bld) 68.7 % Normal 43.0-75.0 [facility] Comment on above: Performed By: #### C VDTBH #### [facility] [address] [place] [address] Dr. Reema Mireles Platelet mean volume (Bld) [Entitic vol] 10.1 fL Normal 9.5-13.5 [facility] Comment on above: Performed By: #### C VDTBH #### [facility] [address] [place] [address] Dr. Reema Mireles PLT 404 103/ul Normal 150-450 [facility] Comment on above: Performed By: #### C VDTBH #### [facility] [address] [place] [address] Dr. Reema Mireles RBC 4.38 106/ul Normal 4.20-5.40 [facility] Comment on above: Performed By: #### C VDTBH #### [facility] [address], [place] [address] Dr. Reema Mireles WBC 8.0 103/ul Normal 4.0-11.0 [facility] Comment on above: Performed By: #### C [facility] #### [facility] [address], [place] [address] HEAD [facility] CONon [facility] Dis[facility] Instructions [id number] #1.00CD:127 Normal [facility] ED Note-Physicianon 04-13-20 ED Note-Physician Basic Information Time Seen: Lata Hardy M.D. 04/12/2022 19:56 Chief Complaint Pt. presents to the ed with c/o headache and vertigo since thursday. Pt. was seen at [place] and started on prednisone. pt. stopped taking [...] ADRYAN MARIE In 3 days 04/15/2022 EDT [facility] [place] [address]- Business (1) Additional Instructions: Return to the [...] Diagnostic Results No qualifying data available. Normal [facility] Comment on above: Result Comment: Elec tronically Signed By: Antony Villa, Lata Baxter\.br\Date and Time Signed: 04/13/22 04:56 EDT ER URINE PROFILEon 2 Bilirubin Ql (U) Negative Normal NEGATIVE [facility] Comment on above: Performed By: #### P REGU, ERUR #### [facility] [address] [place] [address] Dr. Reema Mireles Clarity (U) CLEAR Normal CLEAR [facility] Comment on above: Performed By: #### P REGU, ERUR #### [facility] [address] [place] [address] Dr. Reema Mireles Color (U) LT. YELLOW Normal YELLOW [facility] Comment on above: Performed By: #### P REGU, ERUR #### [facility] [address] [place] [address] Dr. Reema Mireles ERUAHD A micrscopic examination will be performed if indicated. Normal [facility] Comment on above: Performed By: #### P REGU, ERUR #### [facility] [address] [place] [address] Dr. Reema Mireles Glucose Ql (U) Negative Normal NEGATIVE [facility] Comment on above: Performed By: #### P REGU, ERUR #### [facility] [address] [place] [address] Dr. Reema Mireles Hemoglobin Ql (U) Negative Normal NEGATIVE [facility] Comment on above: Performed By: #### P REGU, ERUR #### [facility] [address] [place] [address] Dr. Reema Mireles Ketones Ql (U) Negative Normal NEGATIVE [facility] Comment on above: Performed By: #### P REGU, ERUR #### [facility] [address] [place] [address] Dr. Reema Mireles LEUKOCYTES Negative Normal NEGATIVE [facility] Comment on above: Performed By: #### P REGU, ERUR #### [facility] [address] [address] [address] Reema Mireles Nitrite Ql (U) Negative Normal NEGATIVE [facility] Comment on above: Performed By: #### P REGU, ERUR #### [facility] [address] [place] [address] Dr. Reema Mireles pH (U) 6.5 [pH] Normal 5-9 [facility] Comment on above: Performed By: #### P REGU, ERUR #### [facility] [address] [place] [address] Dr. Reema Mireles SPEC GRAVITY 1.005 Normal 1.005-<=1.025 [facility] Comment on above: Performed By: #### P REGU, ERUR #### [facility] [address] [place] [address] Dr. Reema Mireles UA PROTEIN Negative Normal NEGATIVE/ TRACE [facility] Comment on above: Performed By: #### P REGU, ERUR #### [facility] [address] [place] [address] Dr. Reema Mireles UR MICRO IND NOT INDICATED Normal [facility] Comment on above: Performed By: #### P REGU, ERUR #### [facility] [address] [place] [address] Dr. Reema Mireles Urobilinogen Qn (U) 0.2 {Renny'U}/dL Normal 0.2 - 1. 0 [facility] Comment on above: Performed By: #### P REGU, ERUR #### [facility] [address] [id number] [address] Reema Mireles URon 04-13-2022 , QUAL Negative Normal NEGATIVE [facility] Comment on above: Performed By: #### P REGU, ERUR #### [facility] [address] [place] [address] Dr. Reema Mireles PROF CHEM 8 (BAS METB)on Anion gap [Moles/Vol] 14.0 mmol/L Normal [facility] Comment on above: Performed By: #### B MP, TSH #### [facility] [address] [place] [address] Dr. Reema Mireles Calcium [Mass/Vol] 9.2 mg/dL Normal 8.5-10.1 [facility] Comment on above: Performed By: #### B MP, TSH #### [facility] [address] [place] [address] Dr. Reema Mireles Chloride [Moles/Vol] 102 mmol/L Normal 98-107 [facility] Comment on above: Performed By: #### B MP, TSH #### [facility] [address] [place] [address] Dr. Reema Mireles CO2 [Moles/Vol] 26.3 mmol/L Normal 21.0-32.0 [facility] Comment on above: Performed By: #### B MP, TSH #### [facility] [address] [place] [address] Dr. Reema Mireles Creatinine [Mass/Vol] 0.65 mg/dL Normal 0.55-1.02 [facility] Comment on above: Performed By: #### B MP, TSH #### [facility] [address] [place] [address] Dr. Reema Mireles EGFR-AF SWISS >60 Normal >=60 [facility] Comment on above: Performed By: #### B MP, TSH #### [facility] [address] [place] [address] Dr. Reema Mireles EGFR-NON AF SWISS >60 Normal >=60 [facility] Comment on above: Performed By: #### B MP, TSH #### [facility] [address] [address] [address] Reema Mireles Glucose [Mass/Vol] 92 mg/dL Normal 74-106 [facility] Comment on above: Performed By: #### B MP, TSH #### [facility] [address] [address] [address] Reema Mireles Potassium [Moles/Vol] 3.3 mmol/L Critically low 3.5-5.1 [facility] Comment on above: Performed By: #### B MP, TSH #### [facility] [address] [address] [address] Reema Mireles Sodium [Moles/Vol] 139 mmol/L Normal 136-145 [facility] [facility] Comment on above: Performed By: #### B MP, TSH #### [facility] [address] [address] [address] Reema Mireles Urea nitrogen [Mass/Vol] 8.0 mg/dL Normal 7.0-18.0 [facility] Comment on above: Performed By: #### B MP, TSH #### [facility] [address] [address] [address] Reema Mireles Urea nitrogen/Creatinine [Mass ratio] 12.3 mg/mg Normal [facility] Comment on above: Performed By: #### B MP, TSH #### [facility] [address] [address] [address] Reema Mireles TSHon 04-13-2022 TSH 1.293 uIU/mL Normal 0.358-3.740 [facility] Comment on above: Performed By: #### B MP, TSH #### [facility] [address] [address] [address] Reema Mireles Consent for Treatmenton 03-28 Consent for Treatment [id number] Normal [facility] ED Clinical Summaryon 2021 ED Clinical Summary [address] [address] ED Clinical Summary Person Information Name: JUANPABLO CHAPARRO [place] Age: 21 Years : 2000 Sex: Female Language: Montserratian PCP: ADRYAN MARIE MD Marital Status: Single Phone: [phone] Visit Id: Visit Reason: Vertigo - recurrent; [...] 21:07:38 04/12/2022 21:07:38 04/12/2022 21:07:38 ADDRESS: [address] [place] [id number] PHYS DOC NOTES: MEDICAL INFORMATION: Prescriptions Given: PATIENT EDUCATION INFORMATION: Instructions: General Headache Without Cause; Vertigo Follow up: With: Address: When: ADRYAN MARIE [address] [place], [place] [id number] [employer] (1) In 3 days 04/15/2022 Comments: Return to the emergency room if her headache gets worse, vertigo becomes persistent or any new symptoms DIAGNOSIS: 1:Vertigo; 2:Headache Normal [facility] ED Patient Education Noteon 04-12-2022 [...] you feel dizzy. General instructions ? Take zhri-hnu-shmstlm and prescription medicines only as told by [...] 06/24/2006 Document Revised: 08/08/2019 Document Reviewed: 08/08/2019 [employer] Patient Education ? 2020 [employer] Neurology General Headache Without Cause A [...] with your condition: Managing pain ? Take ccsl-nym-gkhqfuv and prescription medicines only as told by [...] of beer (more content not included)... Normal [facility] ED Patient Summaryon 022 ED Patient Summary [address] [address] Patient Discharge Instructions Person Information Name: JUANPABLO CHAPARRO Age: 21 Years Arrival Date: 04/12/2022 19:22:40 Discharge Diagnosis: 1:Vertigo; 2:Headache Primary Care Physician: ADRYAN MARIE MD Provider Information Primary Provider: Lata Hardy M.D. Advanced Plate Roller:None The exam and treatment you received in the Emergency Department were for an urgent problem and are not intended as complete care. It is important that you follow up with a doctor, nurse practitioner, or physician?s creative assistant for ongoing care. If your symptoms [...] Follow-up Instructions: With: Address: When: ADRYAN MARIE [address] [place] [address] [employer] (1) In 3 days 04/15/2022 Comments: Return [...] opioids can be used to help relieve soojhpes-qi-guwghk pain and are often prescribed following a [...] addiction, tel (more content not included)... Normal [facility] CBC AUTO DIFFon 04-09-2022 BASO # 0.1 103/ul Normal 0.0-0.1 [facility] Comment on above: Performed By: #### B MP, TSH #### [facility] [address] [address] [address] Reema Mireles Basophils/100 WBC (Bld) 0.5 % Normal 0.2-2.0 [facility] Comment on above: Performed By: #### B MP, TSH #### [facility] [address] [place] [address] Dr. Reema Mireles EO # 0.1 103/ul Normal 0.0-0.7 [facility] Comment on above: Performed By: #### B MP, TSH #### [facility] [address] [place] [address] Dr. Reema Mireles Eosinophils/100 WBC (Bld) 1.0 % Normal 0.9-7.0 [facility] Comment on above: Performed By: #### B MP, TSH #### [facility] [address] [place] [address] Dr. Reema Mireles Erythrocyte distribution width (RBC) [Ratio] 11.7 % Normal 11.0-15.0 [facility] Comment on above: Performed By: #### B MP, TSH #### [facility] [address] [place] [address] Dr. Reema Mireles Hematocrit (Bld) [Volume fraction] 37.2 % Normal 36.0-48.0 [facility] Comment on above: Performed By: #### B MP, TSH #### [facility] [address] [place] [address] Dr. Reema Mireles Hemoglobin (Bld) [Mass/Vol] 12.8 g/dL Normal 12.0-16.0 [facility] Comment on above: Performed By: #### B MP, TSH #### [facility] [address] [place] [address] Dr. Reema Mireles IG # 0.02 10e3/ul Normal 0.00-0.03 [facility] Comment on above: Performed By: #### B MP, TSH #### [facility] [address] [place] [address] Dr. Reema Mireles IG % 0.2 % Normal 0.0-0.5 [facility] Comment on above: Performed By: #### B MP, TSH #### [facility] [address] [place] [address] Dr. Reema Mireles LYMPH # 1.8 103/ul Normal 1.2-3.8 [facility] Comment on above: Performed By: #### B MP, TSH #### [facility] [address] [address] [address] Reema Mireles Lymphocytes/100 WBC (Bld) 19.0 % Critically low 20.5-60.0 [facility] Comment on above: Performed By: #### B MP, TSH #### [facility] [address] [address] [address] Reema Mireles MANUAL DIFF REQ NO Normal [facility] Comment on above: Performed By: #### B MP, TSH #### [facility] [address] [address] [address] Reema Mireles MCH (RBC) [Entitic mass] 30.4 pg Normal 26.7-34.0 [facility] Comment on above: Performed By: #### B MP, TSH #### [facility] [address] [place] [address] Dr. Reema Mireles MCHC (RBC) [Mass/Vol] 34.4 g/dL Normal 29.9-35.2 [facility] Comment on above: Performed By: #### B MP, TSH #### [facility] [address] [address] [address] Reema Mireles MCV (RBC) [Entitic vol] 88.4 fL Normal 81.0-99.0 [facility] Comment on above: Performed By: #### B MP, TSH #### [facility] [address] [address] [address] Reema Mireles MONO # 0.7 103/ul Normal 0.3-0.8 [facility] Comment on above: Performed By: #### B MP, TSH #### [facility] [address] [address] [address] Reema Mireles Monocytes/100 WBC (Bld) 6.8 % Normal 1.7-12.0 [facility] Comment on above: Performed By: #### B MP, TSH #### [facility] [address] [address] [address] Reema Mireles NEUT # 7.0 103/ul Critically high 1.4-6.5 [facility] Comment on above: Performed By: #### B MP, TSH #### [facility] [address] [address] [address] Reema Mireles Neutrophils/100 WBC (Bld) 72.5 % Normal 43.0-75.0 [facility] Comment on above: Performed By: #### B MP, TSH #### [facility] [address] [address] [address] Reema Mireles Platelet mean volume (Bld) [Entitic vol] 10.3 fL Normal 9.5-13.5 [facility] Comment on above: Performed By: #### B MP, TSH #### [facility] [address] [place] [address] Dr. Reema Mireles PLT 358 103/ul Normal 150-450 [facility] Comment on above: Performed By: #### B MP, TSH #### [facility] [address] [place] [address] Dr. Reema Mireles RBC 4.21 106/ul Normal 4.20-5.40 [facility] Comment on above: Performed By: #### B MP, TSH #### [facility] [address] [place] [address] Dr. Reema Mireles WBC 9.7 103/ul Normal 4.0-11.0 [facility] Comment on above: Performed By: #### B MP, TSH #### [facility] [address] [place] [address] Dr. Reema Mireles CULTURE BLOODon 04-09-2022 Microscopic examination of blood, culture Culture Observations: NO GROWTH AT 5 DAYS. Normal [facility] Comment on above: Performed By: #### B MP, TSH #### [facility] [address] [place] [address] Dr. Reema Mireles ER URINE PROFILEon 2 Bilirubin Ql (U) Negative Normal NEGATIVE [facility] Comment on above: Performed By: #### B MP, TSH #### [facility] [address] [place] [address] Dr. Reema Mireles Clarity (U) CLEAR Normal CLEAR [facility] Comment on above: Performed By: #### B MP, TSH #### [facility] [address] [address] [address] Reema Mireles Color (U) LT. YELLOW Normal YELLOW [facility] Comment on above: Performed By: #### B MP, TSH #### [facility] [address] [place] [address] Dr. Reema Mireles ERUAHD A micrscopic examination will be performed if indicated. Normal [facility] Comment on above: Performed By: #### B MP, TSH #### [facility] [address] [place] [address] Dr. Reema Mireles Glucose Ql (U) Negative Normal NEGATIVE [facility] Comment on above: Performed By: #### B MP, TSH #### [facility] [address] [place] [address] Dr. Reema Mireles Hemoglobin Ql (U) TRACE-INTACT Abnormal NEGATIVE [facility] Comment on above: Performed By: #### B MP, TSH #### [facility] [address] [place] [address] Dr. Reema Mireles Ketones Ql (U) Negative Normal NEGATIVE [facility] Comment on above: Performed By: #### B MP, TSH #### [facility] [address] [place] [address] Dr. Reema Mireles LEUKOCYTES Negative Normal NEGATIVE [facility] Comment on above: Performed By: #### B MP, TSH #### [facility] [address] [place] [address] Dr. Reema Mireles Nitrite Ql (U) Negative Normal NEGATIVE [facility] Comment on above: Performed By: #### B MP, TSH #### [facility] [address] [address] [address] Reema Mireles pH (U) 5.5 [pH] Normal 5-9 [facility] Comment on above: Performed By: #### B MP, TSH #### [facility] [address] [place] [address] Dr. Reema Mireles SPEC GRAVITY <=1.005 Abnormal 1.005-<=1.025 [facility] Comment on above: Performed By: #### B MP, TSH #### [facility] [address] [place] [address] Dr. Reema Mireles UA PROTEIN Negative Normal NEGATIVE/ TRACE [facility] Comment on above: Performed By: #### B MP, TSH #### [facility] [address] [place] [address] Dr. Reema Mireles UR MICRO IND INDICATED Normal [facility] Comment on above: Performed By: #### B MP, TSH #### [facility] [address] [place] [address] Dr. Reema Mireles Urobilinogen Qn (U) 0.2 {Renny'U}/dL Normal 0.2 - 1. 0 [facility] Comment on above: Performed By: #### B MP, TSH #### [facility] [address] [place] [address] Dr. Reema Mireles LACTATE/LACTIC ACIDon 2021 Lactate [Moles/Vol] 2.2 mmol/L Critically high 0.4-1.9 [facility] Comment on above: Performed By: #### B MP, TSH #### [facility] [address] [place] [address] Dr. Reema Mireles URon 04-09-2022 , QUAL Negative Normal NEGATIVE [facility] Comment on above: Performed By: #### B MP, TSH #### [facility] [address] [place] [address] Dr. Reema Mireles PROF 14(COMP METB)on 022 Albumin [Mass/Vol] 4.5 g/dL Normal 3.4-5.0 [facility] Comment on above: Performed By: #### C MP #### [facility] [address] [place] [address] Dr. Reema Mireles Albumin/Globulin [Mass ratio] 1.3 {ratio} Normal [facility] Comment on above: Performed By: #### C MP #### [facility] [address] [place] [address] Dr. Reema Mireles ALP [Catalytic activity/Vol] 83 U/L Normal 46-116 [facility] Comment on above: Performed By: #### C MP #### [facility] [address] [address] [address] Reema Mireles ALT [Catalytic activity/Vol] 26 U/L Normal 14-59 [facility] Comment on above: Performed By: #### C MP #### [facility] [address] [address] [address] Reema Mireles Anion gap [Moles/Vol] 14.9 mmol/L Normal [facility] Comment on above: Performed By: #### C MP #### [facility] [address] [address] [address] Reema Mireles AST [Catalytic activity/Vol] 12 U/L Critically low 15-37 [facility] Comment on above: Performed By: #### C MP #### [facility] [address] [address] [address] Reema Mireles Bilirubin [Mass/Vol] 0.3 mg/dL Normal 0.2-1.0 [facility] Comment on above: Performed By: #### C MP #### [facility] [address] [address] [address] Reema Mireles Calcium [Mass/Vol] 9.6 mg/dL Normal 8.5-10.1 [facility] Comment on above: Performed By: #### C MP #### [facility] [address] [address] [address] Reema Mireles Chloride [Moles/Vol] 103 mmol/L Normal 98-107 [facility] Comment on above: Performed By: #### C MP #### [facility] [address] [address] [address] Reema Mireles CO2 [Moles/Vol] 24.4 mmol/L Normal 21.0-32.0 [facility] Comment on above: Performed By: #### C MP #### [facility] [address] [address] [address] Reema Mireles Creatinine [Mass/Vol] 0.87 mg/dL Normal 0.55-1.02 [facility] Comment on above: Performed By: #### C MP #### [facility] [address] [address] [address] Reema Mireles EGFR-AF SWISS >60 Normal >=60 [facility] Comment on above: Performed By: #### C MP #### [facility] [address] [address] [address] Reema Mireles EGFR-NON AF SWISS >60 Normal >=60 [facility] Comment on above: Performed By: #### C MP #### [facility] [address] [address] [address] Reema Mireles Globulin (S) [Mass/Vol] 3.5 g/dL Normal [facility] Comment on above: Performed By: #### C MP #### [facility] [address] [address] [address] Reema Mireles Glucose [Mass/Vol] 109 mg/dL Critically high 74-106 [facility] Comment on above: Performed By: #### C MP #### [facility] [address] [address] [address] Reema Mireles Potassium [Moles/Vol] 3.3 mmol/L Critically low 3.5-5.1 [facility] Comment on above: Performed By: #### C MP #### [facility] [address] [address] [address] Reema Mireles Protein [Mass/Vol] 8.0 g/dL Normal 6.4-8.2 [facility] Comment on above: Performed By: #### C MP #### [facility] [address] [address] [address] Reema Mireles Sodium [Moles/Vol] 139 mmol/L Normal 136-145 [facility] Comment on above: Performed By: #### C MP #### [facility] [address] [address] [address] Reema Mireles Urea nitrogen [Mass/Vol] 9.0 mg/dL Normal 7.0-18.0 [facility] Comment on above: Performed By: #### C MP #### [facility] [address] [place] [address] Dr. Reema Mireles Urea nitrogen/Creatinine [Mass ratio] 10.3 mg/mg Normal [facility] Comment on above: Performed By: #### C MP #### [facility] [address] [place] [address] Dr. Reema Mireles URINE MICROSCOPIC ONLYon BACTERIA NONE SEEN Normal NONE SEEN [facility] Comment on above: Performed By: #### B MP, TSH #### [facility] [address] [place] [address] Dr. Reema Mireles Bacteria identified Cx Nom (U) NOT INDICATED Normal [facility] Comment on above: Performed By: #### B MP, TSH #### [facility] [address] [place] [address] Dr. Reema Mireles CAST NONE SEEN Normal NONE SEEN [facility] Comment on above: Performed By: #### B MP, TSH #### [facility] [address] [place] [address] Dr. Reema Mireles Crystals LM Nom (Urine sed) NONE SEEN Normal NONE SEEN [facility] Comment on above: Performed By: #### B MP, TSH #### [facility] [address] [place] [address] Dr. Reema Mireles Epithelial cells LM Ql (Urine sed) RARE Normal NONE SEEN /RARE [facility] Comment on above: Performed By: #### B MP, TSH #### [facility] [address] [place] [address] Dr. Reema Mireles MUCOUS NONE SEEN Normal NONE SEEN [facility] Comment on above: Performed By: #### B MP, TSH #### [facility] [address] [place] [address] Dr. Reema Mireles RBC 0-2 Normal 0-2 [facility] Comment on above: Performed By: #### B MP, TSH #### [facility] [address] [place] [address] Dr. Reema Mireles WBC NONE SEEN Normal NONE SEEN [facility] Comment on above: Performed By: #### B MP, TSH #### [facility] [address] [address] [address] Reema Mireles CBC AUTO DIFFon 10-25-2021 BASO # 0.0 103/ul Normal 0.0-0.1 [facility] Comment on above: Performed By: #### C BC #### [facility] [address] [address] [address] Reema Mireles Basophils/100 WBC (Bld) 0.6 % Normal 0.2-2.0 [facility] Comment on above: Performed By: #### C BC #### [facility] [address] [place] [address] Dr. Reema Mireles EO # 0.1 103/ul Normal 0.0-0.7 [facility] Comment on above: Performed By: #### C BC #### [facility] [address] [place] [address] Dr. Reema Mireles Eosinophils/100 WBC (Bld) 1.8 % Normal 0.9-7.0 [facility] Comment on above: Performed By: #### C BC #### [facility] [address] [place] [address] Dr. Reema Mireles Erythrocyte distribution width (RBC) [Ratio] 11.9 % Normal 11.0-15.0 [facility] Comment on above: Performed By: #### C BC #### [facility] [address] [place] [address] Dr. Reema Mireles Hematocrit (Bld) [Volume fraction] 38.1 % Normal 36.0-48.0 [facility] Comment on above: Performed By: #### C BC #### [facility] [address] [place] [address] Dr. Reema iMreles Hemoglobin (Bld) [Mass/Vol] 13.1 g/dL Normal 12.0-16.0 [facility] Comment on above: Performed By: #### C BC #### [facility] [address] [place] [address] Dr. Reema Mireles IG # 0.01 10e3/ul Normal 0.00-0.03 [facility] Comment on above: Performed By: #### C BC #### [facility] [address] [place] [address] Dr. Reema Mireles IG % 0.1 % Normal 0.0-0.5 [facility] Comment on above: Performed By: #### C BC #### [facility] [address] [place] [address] Dr. Reema Mireles LYMPH # 1.9 103/ul Normal 1.2-3.8 [facility] Comment on above: Performed By: #### C BC #### [facility] [address] [place] [address] Dr. Reema Mireles Lymphocytes/100 WBC (Bld) 27.8 % Normal 20.5-60.0 [facility] Comment on above: Performed By: #### C BC #### [facility] [address] [place] [address] Dr. Reema Mireles MANUAL DIFF REQ NO Normal [facility] Comment on above: Performed By: #### C BC #### [facility] [address] [place] [address] Dr. Reema Mireles MCH (RBC) [Entitic mass] 30.5 pg Normal 26.7-34.0 [facility] Comment on above: Performed By: #### C BC #### [facility] [address] [place] [address] Dr. Reema Mireles MCHC (RBC) [Mass/Vol] 34.4 g/dL Normal 29.9-35.2 [facility] Comment on above: Performed By: #### C BC #### [facility] [address] [place] [address] Dr. Reema Mireles MCV (RBC) [Entitic vol] 88.8 fL Normal 81.0-99.0 [facility] Comment on above: Performed By: #### C BC #### [facility] [address] [place] [address] Dr. Reema Mireles MONO # 0.8 103/ul Normal 0.3-0.8 [facility] Comment on above: Performed By: #### C BC #### [facility] [address] [place] [address] Dr. Reema Mireles Monocytes/100 WBC (Bld) 11.2 % Normal 1.7-12.0 [facility] Comment on above: Performed By: #### C BC #### [facility] [address] [place] [address] Dr. Reema Mireles NEUT # 4.0 103/ul Normal 1.4-6.5 [facility] Comment on above: Performed By: #### C BC #### [facility] [address] [place] [address] Dr. Reema Mireles Neutrophils/100 WBC (Bld) 58.5 % Normal 43.0-75.0 [facility] Comment on above: Performed By: #### C BC #### [facility] [address] [place] [address] Dr. Reema Mireles Platelet mean volume (Bld) [Entitic vol] 10.0 fL Normal 9.5-13.5 [facility] Comment on above: Performed By: #### C BC #### [facility] [address] [place] [address] Dr. Reema Mireles PLT 361 103/ul Normal 150-450 [facility] Comment on above: Performed By: #### C BC #### [facility] [address] [place] [address] Dr. Reema Mireles RBC 4.29 106/ul Normal 4.20-5.40 [facility] Comment on above: Performed By: #### C BC #### [facility] [address] [place] [address] Dr. Reema Mireles WBC 6.8 103/ul Normal 4.0-11.0 [facility] Comment on above: Performed By: #### C BC #### [facility] [address] [place] [address] Dr. Reema Mireles PREG QUANT HCGon 10-25-2021 HCG QUANT 1 mIU/mL Normal [facility] Comment on above: Performed By: #### P REGQNT #### [facility] [address] [place] [address] Dr. Reema Mireles HCG RANGE SEE BELOW Normal [facility] Comment on above: Result Comment: 50 0-1 WEEK 40-300 1-2 WEEKS 100-1,000 2-3 WEEKS 500-6,000 3-4 WEEKS 5,000-200,000 1-2 MONTHS 10,000-100,000 2-3 MONTHS 3,000-50,000 2ND TRIMESTER 1,000-50,000 3RD TRIMESTER Performed By: #### P REGQNT #### [facility] [address] [address] [address] Reema Mireles Covid-19 PCR ([facility])on 09-29 SARS-CoV-2 (COVID-19) RNA FRANKIE+probe Ql [...] for this test is supported by the Telephoto Engineer of Health and Human Service's (HHS's) declaration [...] #### [facility] [address], [place] [address] Dr. Reema Mireles Vital Signs Date Time Vital Sign Value Performing Clinician Facility 11-12-2023 14:15-050 Body weight 108.86 kg [employer] Work Phone: [facility] 11-12-2023 14:15-0500 Diastolic blood pressure 72 mm[Hg] [employer] Work Phone: [facility] 11-12-2023 14:15-0500 Systolic blood pressure 122 mm[Hg] Devan Tello DO Work Phone: [facility] 04-12-2022 21:04-0400 Diastolic blood pressure 84 mm[Hg] [facility] 04-12-2022 21:04-0400 Heart rate 82 /min [facility] 04-12-2022 21:04-0400 Respiratory rate 16 /min [facility] 04-12-2022 21:04-0400 SaO2% (BldA) [Mass fraction] 98 % [facility] 04-12-2022 21:04-0400 Systolic blood pressure 120 mm[Hg] [facility] 04-12-2022 20:32-0400 gluc 80 mg/dL [facility] Comment on above: Result Comment: not taken due to pt refu jimmie of any injection 04-12-2022 20:32-0400 gluc [facility] 04-12-2022 19:25-0400 Body temperature 99.32 [degF] [facility] 04-12-2022 19:25-0400 Diastolic blood pressure 84 mm[Hg] [facility] 04-12-2022 19:25-0400 Heart rate 90 /min [facility] 04-12-2022 19:25-0400 Respiratory rate 18 /min [facility] 04-12-2022 19:25-0400 SaO2% (BldA) [Mass fraction] 98 % [facility] 04-12-2022 19:25-0400 Systolic blood pressure 118 mm[Hg] [facility] 04-09-2022 12:20-0400 Body height 165.1 cm Deonna Back Other [facility] Other 04-09-2022 12:20-0400 Body mass index (BMI) [Ratio] 35.61 kg/m2 Deonna Nazanin Other [facility] Other 04-09-2022 12:20-0400 Body temperature 98.4 [degF] Deonna Nazanin Other [facility] Other 04-09-2022 12:20-0400 Body weight 97.07 kg Deonna Nazanin Other [facility] Other 04-09-2022 12:20-0400 Diastolic blood pressure 83 mm[Hg] Deonna Nazanin Other [facility] Other 04-09-2022 12:20-0400 Respiratory rate 18 /min Deonna Nazanin Other [facility] Other 04-09-2022 12:20-0400 SaO2% (BldA) [Mass fraction] 99 % Deonna Nazanin Other [facility] Other 04-09-2022 12:20-0400 Systolic blood pressure 135 mm[Hg] Deonna Nazanin Other [facility] Other 04-02-2022 19:00-0400 Body height 165.1 cm Deonna Nazanin Other [facility] Other 04-02-2022 19:00-0400 Body mass index (BMI) [Ratio] 35.71 kg/m2 Deonna Nazanin Other [facility] Other 04-02-2022 19:00-0400 Body temperature 98.1 [degF] Deonna Nazanin Other [facility] Other 04-02-2022 19:00-0400 Body weight 97.34 kg Deonna Back Other [facility] Other 04-02-2022 19:00-0400 Diastolic blood pressure 83 mm[Hg] Deonna Back Other [facility] Other 04-02-2022 19:00-0400 Respiratory rate 18 /min Deonna Back Other [facility] Other 04-02-2022 19:00-0400 SaO2% (BldA) [Mass fraction] 100 % Deonna Back Other [facility] Other 04-02-2022 19:00-0400 Systolic blood pressure 134 mm[Hg] Deonna Back Other [facility] Other Encounters Encounter Date Encounter Type Care [...] Not Available Start: 09-17-2023 End: 09-17-2023 ambulatory DEVNA TELLO Not Available Start: 08-13-2023 End: 08-13-2023 [...] 04-12-2022 End: 04-12-2022 [facility] Start: 04-10-2022 End: 04-10-2022 ambulatory Deonna Back Other [facility] Other Start: 04-10-2022 Telephone encounter Deonna Back [facility] Start: 04-09-2022 End: 04-09-2022 ambulatory Deonna Back Other [facility] Other Start: 04-09-2022 Office outpatient vi sit 15 minutes Deonna Back [facility] Start: 04-09-2022 End: 04-09-[address] LUIS ANTONIO SUTTON Facility:[facility] Start: 04-02-2022 (URG) Urgent Care Visit Deonna pace [facility] Start: 04-02-2022 End: 04-02-2022 ambulatory Deonna Back Other [facility] Other Start: 10-25-2021 End: 10-25-[address] ADRYAN MARIE Facility:[facility] Start: 10-24-2021 Encounter for preprocedural laboratory examination DR DEVAN TELLO [facility] Start: 10-22-2021 End: 10-23-[address] ADRYAN MARIE Facility:[facility] Start: 10-22-2021 End: 10-23-2021 Encounter for preprocedural laboratory examination DR ADRYAN MARIE Facility:[facility] Start: 10-19-2021 Encounter for other preprocedural examination DR DEVAN TELLO [facility] Start: 10-17-2021 End: 10-18-2021 ambulatory [...] Routine [facility] [address] [place] [address] Cydney Leos PA [address] [place], [place] [id number] [facility] Start: 11-26-2023 End: 11-26-2023 Professional / ancillary services management 11/26/2023 10:30 AM EST Ancillary Procedure [facility] [address] [place] [address] [facility] Start: 11-12-2023 End: 11-12-2024 US for US OB SCAN FOR GROWTH Imaging Routine Excessive growth affecting management of in third trimester, single or unspecified fetus Expected: 11/12/2023 (Approximate), Expires: 11/12/2024 [facility] Work Phone: Comment on above: Expected: 11/12/2023 (Approximate), Expires: 11/12/2024 Start: 11-12-2023 End: 11-12-2023 Patient encounter procedure 11/12/2023 10:50 AM EST Routine [facility] [address] [place] [address] Devan Tello DO [address] [place] [address] [facility] Payers Date Payer Category Payer Unknown [facility] MEDICAID [id number] 2023-Present [address] [place] [address] [id number] 2023 Medicaid [id number] 2001 Unknown [id number] 2.16.840.1.294927.3.579.2. 593 2001 Unknown [id number] 2.16.840.1.847989.3.579.2. 593 2001 Unknown [id number] 2.16.840.1.064464.3.579.2. 593 2001 Unknown [id number] 2.16.840.1.418763.3.579.2. 593 2001 Unknown [id number] 2.16.840.1.552531.3.579.2. 593 2001 Unknown [id number] 2.16.840.1.803977.3.579.2. 593 2001 Unknown [id number] 2.16.840.1.696988.3.579.2. 593 2001 Unknown [id number] 2.16.840.1.889052.3.579.2. 593 2001 Unknown [id number] 2.16.840.1.084056.3.579.2. 593 2001 Unknown [id number] 2.16.840.1.350701.3.579.2. 593 2001 Unknown [id number] 2.16.840.1.738608.3.579.2. 593 2001 Unknown [id number] 2.16.840.1.894556.3.579.2. 1259 2001 Unknown [id number] 2.16.840.1.524220.3.579.2. 1259 2001 Unknown [id number] 2.16.840.1.518902.3.579.2. 1259 2001 Unknown [id number] 2.16.840.1.961195.3.579.2. 1259 2001 Unknown [id number] 2.16.840.1.959573.3.579.2. 1259 2001 Unknown [id number] 2.16.840.1.637370.3.579.2. 1259 2001 Unknown [id number] 2.16.840.1.289772.3.579.2. 1259 2001 Unknown [id number] 2.16.840.1.106532.3.579.2. 1259 2001 Unknown [id number] 2.16.840.1.461064.3.579.2. 1259 1958 [facility] [id number] 2.16.840.1.504929.19 Social History Date Type Detail Facility Unknown if ever smoked [facility] Other Sex Assigned At [facility] Other Tobacco smoking status No Smoking Status Entered [facility] Start: 06-20-2023 Tobacco smoking status NHIS Tobacco smoking consumption unknown [facility] Start: 10-15-2023 Alcohol intake Lifetime non-d hermes (finding) [facility] Start: 06-20-2023 Tobacco Comment Current smoker (frequency unknown) [facility] Start: 05-06-2023 [facility] Start: 2000 Sex Assigned At Not on file [facility] Goals Date Patient Goal Desired Activity /State Personal health goal Functional Status Date Assessment Result Facility 04-12-2022 Functional Status N/A [facility] History of Present illness Narrative 11-12-2023 [...] Devan Tello DO documented in this encounter [facility] Discharge instructions 04-12-2022 Note Date & [...] help with your condition: Managing pain Take uril-xst-ovtyqrd and prescription medicines only as told by [...] 09/14/2006 Document Revised: 04/04/2019 Document Reviewed: 04/04/2019 [employer] Patient Education 2020 [employer] 04/12/2022 21:07:38 Vertigo Vertigo Vertigo is [...] if you feel dizzy. General instructions Take rhpe-uyl-jpmeapt and prescription medicines only as told by [...] 06/24/2006 Document Revised: 08/08/2019 Document Reviewed: 08/08/2019 [employer] Patient Education 2020 [employer] Follow Up Care 04/12/2022 19:25:17 With:ADRYAN MAIRE Address: [address] [place], [place] [id number] [facility] (1) When:04/15/2022 20:55:24 Comments:Return to the emergency room if her headache gets worse, vertigo becomes persistent or any new symptoms [facility] Evaluation note 04-09-2022 Note Date [...] She was prescribed Zofran with no improvement. [facility] Other Evaluation note 04-02-2022 Note Date & [...] 3 days. No swimming for a week [facility] Other Clinical Note 10-25-2021 Note Date & Type Note Facility 10-25-2021 Note OPERATIVE NOTE PROCEDURE: Diagnostic laparoscopy. PREOPERATIVE DIAGNOSIS: Pelvic pain, dyspareunia dysmenorrhea. POSTOPERATIVE DIAGNOSIS: Pelvic pain, dyspareunia dysmenorrhea. ANESTHESIA: General. SURGEON: Devan Tello D.O. ASSISTANT SALES DIRECTOR: JAE Worley URINE OUTPUT: Yellow and [...] taken to Recovery Room in stable condition. [facility] Signed and Approved by: DR DEVAN TELLO . 11/01/2021 17:31:00 [facility] Evaluation + Plan note Note Date & Type Note Facility Evaluation + Plan note No data available for this section [facility] Evaluation note Note Date & Type Note Facility Evaluation note No Information [facility] Other Evaluation note Note Date & Type [...] endometriosis Hospitalization History RSV as a baby [facility] Other Progress note Note Date & Type Note Facility Progress note No data available for this section [facility] Summary Purpose Family History No Family History Records FoundNo Family History Records FoundNo Family History Records Found Advance Directives No Advanced Directives Records FoundNo Advanced Directives Records FoundNo Advanced Directives Records Found Additional Source Comments REASON FOR VISIT (unrecogniz ed section and content) Reason Comments Routine Visit Care Team (unrecognized sect ion and content) [employer] Relationship Specialty Start Date End Date Adryan Marie MD [address] [place] [address] PCP - General Family Medicine 06/19/23 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 [facility] [employer] [facility]. provides no warranty or guarantee of the accuracy or completeness of information in this document.
[2024-01-16 08:04] VITALS: BP 132/70; PULSE 88
== END 2024-01-16 08:35 | disposition home or self-care (01) ==
LOC: FBCO 07:48 → FBC 07:57
PROVIDERS: PCP Family Medicine; Visit Provider Obstetrics & Gynecology
DX: O36.63X0 Maternal care for excessive fetal growth, third trimester, not applicable or unspecified (principal)
CPT/HCPCS: 59025

== ENCOUNTER 2024-01-19 10:15 | Observation (INO) | payer OTHER, SELFPAY ==
[2024-01-19 10:32] VITALS: BP 128/78; PULSE 72; TEMP 36.1
== END 2024-01-19 11:05 | disposition home or self-care (01) ==
LOC: FBC 10:19
PROVIDERS: Admitting Provider Obstetrics & Gynecology; PCP Family Medicine; Visit Provider Obstetrics & Gynecology
DX: O26.893 Other specified pregnancy related conditions, third trimester (principal); Z3A.38 38 weeks gestation of pregnancy
CPT/HCPCS: 59025; G0378; G0379

== ENCOUNTER 2024-01-20 07:04 | Outpatient (OUT) | payer OTHER, SELFPAY ==
--- NOTE | 2024-01-20 | US_ITS ---
[address] [address] Patient Name: JUANPABLO CHAPARRO MRN: [id number] date: 2000 Sex: F Assigned Patient Location: Current Patient Location: [facility] Accession/Order Number: [id number] Exam Date: 01/20/2024 10:00 Report Date: 01/20/2024 10:29 At the request of: DEVAN GEORGE Procedure: US OB BPP w non-stress EXAMINATION: US OB BPP w non-stress HISTORY: EXCESSIVE GROWTH COMPARISON: Ultrasound OB biophysical 01/13/2024, ultrasound OB growth 01/14/2024 TECHNIQUE: Ultrasound biophysical profile was performed in the radiology department. BREATHING MOVEMENTS: 2.0 GROSS BODY MOVEMENTS: 2.0 TONE: 2.0 QUALITATIVE AMNIOTIC FLUID VOLUME: 2.0 PRESENTATION: CEPHALIC HEART RATE: 153.4 bpm bpm. AMNIOTIC FLUID VOLUME: 16.4 cm GESTATIONAL AGE: 39 weeks 0 days CONCLUSION: 1. Total biophysical profile score 8.0. 2. Limited evaluation of the placenta but it appears aged with extensive calcifications and internal cysts. Electronically authenticated by: WILBERT CASIANO Date: 01/20/2024 10:29
--- OUTSIDE RECORDS SUMMARY | 2024-01-20 07:07 | XMS_ITS | CCD ---
Author Organization [facility] Care Team Providers Care Boat Person Name Role Phone Deonna Back Unavailable DEFJAILENE, ADRYAN Primary Care Physician [phone] LESLEY, DR LUIS ANTONIO Jorge Consulting Unavailable [...] Facility (3 sources) Sulfacetamide Drug Allergy rash [facility] Other (1 source) Sulfonamides (Antibiotic); Translations: [sulfa drugs] Drug allergy Hyperpyrexia (finding) [facility] (1 source) Sulfonamides (Antibiotic) Drug allergy (disorder) 07-26-20 14 [facility] (3 sources) Sulfonamides (Antibiotic) Drug Intolerance [...] BY MOUTH EVERY MORNING 0 10/06/2023 Active ZA-Dwf-CI-Ingleside-3 ( Gummies/DHA & FA) 0.4-32.5 MG chewable tablet (3 sources) Start: 06-19-2023 End: 06-18-2024 SI-Vtg-WY-Ingleside-3 ( Gummies/DHA & FA) 0.4-32.5 MG chewable tablet Indications: Missed menses Chew 32.5 mg in the morning. 30 tablet 11 06/19/2023 06/18/2024 Active Completed/Discontinued Medications Medication Drug Class(es) Dates Sig (Normalized) Sig (Original) [id number] 200 actuat albuterol 0.09 mg/actuat metered dose [...] / neomycin 3.5 mg/ml / polymyxin b [id number] unt/ml otic suspension (3 sources) Aminoglycoside Antibacterial, Polymyxin-class Antibacterial, Corticosteroid Start: 04-02-2022 Neomycin-Polymyx in-HC 3.5-30661-1 3 drops left ear Three times a [...] UA Negative Negative - 4(70) +++ mg/dL [facility] Blood, UA Negative Negative - 50 Cedric/mcL [facility] Clarity, UA Clear [facility] re Color, UA Yellow [facility] e Glucose, UA Negative Negative - 1999(110) ++++ mg/dL [facility] Interpretation and review of laboratory results Normal [facility] Ketones, UA Negative Negative - 160(16) ++++ mg/dL [facility] Leukocytes, UA Negative Negative - 500+++ Alessandro/mcL [facility] Nitrite, UA Negative Negative - Positive [facility] pH, UA 6.0 5 - 9 [facility] e Protein, UA Negative Negative - 1999(20) ++++ mg/dL [facility] Spec Grav, UA 1.020 1 - 1.03 [facility] Urobilinogen, UA 0.2 0.2 - 12 mg/dL [facility] e ALL CBC WITH AUTO DIFFon BASOPHILS ABSOLUTE AUTO 0.0 [facility] Basophils/100 WBC (Bld) 0.3 % 0.2 - 2.0 % [facility] Eosinophils/100 WBC (Bld) 1.0 % 0.9 - 7.0 % [facility] Erythrocyte distribution width (RBC) [Ratio] 12.5 % 11.0 - 15.0 % [facility] Hematocrit (Bld) [Volume fraction] 35.1 % Low 36.0 - 48.0 % [facility] ([facility]ld) [Mass/Vol] 11.7 g/dL Low 12.0 - 16.0 g/dL [facility] IMMATURE GRANULOCYTES ABS AUTO 0.08 High [facility] Immature granulocytes/100 WBC (Bld) 0.6 % High 0.0 - 0.5 % [facility] Interpretation and review of laboratory results Abnormal [facility] LYMPHOCYTES ABSOLUTE AUTO 1.6 [facility] Lymphocytes/100 WBC (Bld) 11.9 % Low 20.5 - 60.0 % [facility] MCH (RBC) [Entitic mass] 30.7 pg 26.7 - 34.0 pg [facility] MCHC (RBC) [Mass/Vol] 33.3 g/dL 29.9 - 35.2 g/dL [facility] MCV (RBC) [Entitic vol] 92.1 fL 81.0 - 99.0 fL [facility] MONOCYTES ABSOLUTE AUTO 0.8 [facility] Monocytes/100 WBC (Bld) 5.5 % 1.7 - 12.0 % [facility] NEUTROPHILS ABSOLUTE AUTO 11.1 High [facility] Neutrophils/100 WBC (Bld) 80.7 % High 43.0 - 75.0 % [facility] Platelet mean volume (Bld) [Entitic vol] 10.6 fL 9.5 - 13.5 fL [facility] are [facility] EO # 0.1 [facility] PLT 292 N[facility] RBC 3.81 Low [facility] WBC 13.8 High [facility] e CBC AUTO DIFFon 09-14-2022 BASO # 0.0 103/ul Normal 0.0-0.1 [facility] Comment on above: Performed By: #### B GURPREET, TSH #### [facility] [address] [place] [address] Dr. Reema Mireles Basophils/100 WBC (Bld) 0.6 % Normal 0.2-2.0 [facility] Comment on above: Performed By: #### B GURPREET, TSH #### [facility] [address] [place] [address] Dr. Reema Mireles EO # 0.0 103/ul Normal 0.0-0.7 [facility] Comment on above: Performed By: #### B GURPREET, TSH #### [facility] [address] [place] [address] Dr. Reema Mireles Eosinophils/100 WBC (Bld) 0.6 % Critically low 0.9-7.0 [facility] Comment on above: Performed By: #### B GURPREET, TSH #### [facility] [address] [place] [address] Dr. Reema Mireles Erythrocyte distribution width (RBC) [Ratio] 11.9 % Normal 11.0-15.0 [facility] Comment on above: Performed By: #### B GURPREET, TSH #### [facility] [address] [place] [address] Dr. Reema Mireles Hematocrit (Bld) [Volume fraction] 37.8 % Normal 36.0-48.0 [facility] Comment on above: Performed By: #### B GURPREET, TSH #### [facility] [address] [place] [address] Dr. Reema Mireles Hemoglobin (Bld) [Mass/Vol] 13.5 g/dL Normal 12.0-16.0 [facility] Comment on above: Performed By: #### Inna VÁZQUEZ, TSH #### [facility] [address] [place] [address] Dr. Reema Mireles IG # 0.01 10e3/ul Normal 0.00-0.03 [facility] Comment on above: Performed By: #### B GURPREET, TSH #### [facility] [address] [place] [address] Dr. Reema Mireles IG % 0.2 % Normal 0.0-0.5 [facility] Comment on above: Performed By: #### B GURPREET, TSH #### [facility] [address] [place] [address] Dr. Reema Mireles LYMPH # 1.6 103/ul Normal 1.2-3.8 [facility] Comment on above: Performed By: #### B GURPREET, TSH #### [facility] [address] [place] [address] Dr. Reema Mireles Lymphocytes/100 WBC (Bld) 25.5 % Normal 20.5-60.0 [facility] Comment on above: Performed By: #### B GURPREET, TSH #### [facility] [address] [place] [address] Dr. Reema Mireles MANUAL DIFF REQ NO Normal [facility] Comment on above: Performed By: #### B GURPREET, TSH #### [facility] [address] [place] [address] Dr. Reema Mireles MCH (RBC) [Entitic mass] 30.9 pg Normal 26.7-34.0 [facility] Comment on above: Performed By: #### B GURPREET, TSH #### [facility] [address] [place] [address] Dr. Reema Mireles MCHC (RBC) [Mass/Vol] 35.7 g/dL Critically high 29.9-35.2 [facility] Comment on above: Performed By: #### B GURPREET, TSH #### [facility] [address] [place] [address] Dr. Reema Mireles MCV (RBC) [Entitic vol] 86.5 fL Normal 81.0-99.0 [facility] Comment on above: Performed By: #### B GURPREET, TSH #### [facility] [address] [place] [address] Dr. Reema Mireles MONO # 0.5 103/ul Normal 0.3-0.8 [facility] Comment on above: Performed By: #### B GURPREET, TSH #### [facility] [address] [place] [address] Dr. Reema Mireles Monocytes/100 WBC (Bld) 8.5 % Normal 1.7-12.0 [facility] Comment on above: Performed By: #### B GURPREET, TSH #### [facility] [address] [place] [address] Dr. Reema Mireles NEUT # 4.1 103/ul Normal 1.4-6.5 [facility] Comment on above: Performed By: #### B GURPREET, TSH #### [facility] [address] [place] [address] Dr. Reema Mireles Neutrophils/100 WBC (Bld) 64.6 % Normal 43.0-75.0 [facility] Comment on above: Performed By: #### B GURPREET, TSH #### [facility] [address] [place] [address] Dr. Reema Mireles Platelet mean volume (Bld) [Entitic vol] 9.9 fL Normal 9.5-13.5 [facility] Comment on above: Performed By: #### B MP, TSH #### [facility] [address] [place] [address] Dr. Reema Mireles PLT 403 103/ul Normal 150-450 [facility] Comment on above: Performed By: #### B MP, TSH #### [facility] [address] [place] [address] Dr. Reema Mireles RBC 4.37 106/ul Normal 4.20-5.40 [facility] Comment on above: Performed By: #### B MP, TSH #### [facility] [address] [place] [address] Dr. Reema Mireles WBC 6.3 103/ul Normal 4.0-11.0 [facility] Comment on above: Performed By: #### B GURPREET, TSH #### [facility] [address] [place] [address] Dr. Reema Mireles PROF 14(COMP METB)on 09-14- 022 Albumin [Mass/Vol] 4.3 g/dL Normal 3.4-5.[address] [facility] Comment on above: Performed By: #### B GURPREET, TSH #### [facility] [address] [place] [address] Dr. Reema Mireles Albumin/Globulin [Mass ratio] 1.2 {ratio} Normal [facility] Comment on above: Performed By: #### B MP, TSH #### [facility] [address] [place] [address] Dr. Reema Mireles ALP [Catalytic activity/Vol] 79 U/L Normal 46-116 [facility] Comment on above: Performed By: #### B MP, TSH #### [facility] [address] [place] [address] Dr. Reema Mireles ALT [Catalytic activity/Vol] 31 U/L Normal 14-59 [facility] Comment on above: Performed By: #### B MP, TSH #### [facility] [address] [address] [address] Reema Mireles Anion gap [Moles/Vol] 12.1 mmol/L Normal [facility] Comment on above: Performed By: #### B MP, TSH #### [facility] [address] [address] [address] Reema Mireles AST [Catalytic activity/Vol] 17 U/L Normal 15-37 [facility] Comment on above: Performed By: #### B MP, TSH #### [facility] [address] [address] [address] Reema Mireles Bilirubin [Mass/Vol] 0.4 mg/dL Normal 0.2-1.0 [facility] Comment on above: Performed By: #### B MP, TSH #### [facility] [address] [address] [address] Reema Mireles Calcium [Mass/Vol] 8.9 mg/dL Normal 8.5-10.[address] [facility] Comment on above: Performed By: #### B MP, TSH #### [facility] [address] [address] [address] Reema Mireles Chloride [Moles/Vol] 98 mmol/L Normal 98-107 [facility] Comment on above: Performed By: #### B MP, TSH #### [facility] [address] [address] [address] Reema Mireles CO2 [Moles/Vol] 27.0 mmol/L Normal 21.0-32.0 [facility] Comment on above: Performed By: #### B MP, TSH #### [facility] [address] [address] [address] Reema Mireles Creatinine [Mass/Vol] 0.65 mg/dL Normal 0.55-1.02 [facility] Comment on above: Performed By: #### B MP, TSH #### [facility] [address] [address] [address] Reema Mireles EGFR-AF TONGAN >60 Normal >=60 [facility] Comment on above: Performed By: #### B MP, TSH #### [facility] [address] [address] [address] Reema Mireles EGFR-NON AF TONGAN >60 Normal >=60 [facility] Comment on above: Performed By: #### B MP, TSH #### [facility] [address] [address] [address] Reema Mireles Globulin (S) [Mass/Vol] 3.5 g/dL Normal [facility] Comment on above: Performed By: #### B MP, TSH #### [facility] [address] [address] [address] Reema Mireles Glucose [Mass/Vol] 106 mg/dL Normal 74-[address] [facility] Comment on above: Performed By: #### B GURPREET, TSH #### [facility] [address] [place] [address] Dr. Reema Mireles Potassium [Moles/Vol] 3.1 mmol/L Critically low 3.5-5.1 [facility] Comment on above: Performed By: #### B GURPREET, TSH #### [facility] [address] [place] [address] Dr. Reema Mireles Protein [Mass/Vol] 7.8 g/dL Normal 6.4-8.2 [facility] Comment on above: Performed By: #### B GURPREET, TSH #### [facility] [address] [place] [address] Dr. Reema Mireles Sodium [Moles/Vol] 134 mmol/L Critically low 136-145 [facility] Comment on above: Performed By: #### B GURPREET, TSH #### [facility] [address] [place] [address] Dr. Reema Mireles Urea nitrogen [Mass/Vol] 6.0 mg/dL Critically low 7.0-18.0 [facility] Comment on above: Performed By: #### B GURPREET, TSH #### [facility] [address] [place] [address] Dr. Reema Mireles Urea nitrogen/Creatinine [Mass ratio] 9.2 mg/mg Normal [facility] Comment on above: Performed By: #### B GURPREET, TSH #### [facility] [address] [place] [address] Dr. Reema Mireles ACETONE SERUMon 08-11-2022 ACETONE Negative Normal NEGATIVE [facility] Comment on above: Performed By: #### B MP, TSH #### [facility] [address] [place] [address] Dr. Reema Mireles CBC AUTO DIFFon 08-11-2022 BASO # 0.1 103/ul Normal 0.0-0.1 [facility] Comment on above: Performed By: #### B MP, TSH #### [facility] [address] [place] [address] Dr. Reema Mireles Basophils/100 WBC (Bld) 0.5 % Normal 0.2-2.0 [facility] Comment on above: Performed By: #### B MP, TSH #### [facility] [address] [place] [address] Dr. Reema Mireles EO # 0.1 103/ul Normal 0.0-0.7 [facility] Comment on above: Performed By: #### B MP, TSH #### [facility] [address] [place] [address] Dr. Reema Mireles Eosinophils/100 WBC (Bld) 0.7 % Critically low 0.9-7.0 [facility] Comment on above: Performed By: #### B MP, TSH #### [facility] [address] [place] [address] Dr. Reema Mireles Erythrocyte distribution width (RBC) [Ratio] 11.7 % Normal 11.0-15.0 [facility] Comment on above: Performed By: #### B MP, TSH #### [facility] [address] [place] [address] Dr. Reema Mireles Hematocrit (Bld) [Volume fraction] 37.6 % Normal 36.0-48.0 [facility] Comment on above: Performed By: #### B MP, TSH #### [facility] [address] [place] [address] Dr. Reema Mireles Hemoglobin (Bld) [Mass/Vol] 13.1 g/dL Normal 12.0-16.0 [facility] Comment on above: Performed By: #### B MP, TSH #### [facility] [address] [address] [address] Reema Mireles IG # 0.02 10e3/ul Normal 0.00-0.03 [facility] Comment on above: Performed By: #### B MP, TSH #### [facility] [address] [address] [address] Reema Mireles IG % 0.2 % Normal 0.0-0.5 [facility] Comment on above: Performed By: #### B MP, TSH #### [facility] [address] [place] [address] Dr. Reema Mireles LYMPH # 2.7 103/ul Normal 1.2-3.8 [facility] Comment on above: Performed By: #### B MP, TSH #### [facility] [address] [place] [address] Dr. Reema Mireles Lymphocytes/100 WBC (Bld) 28.5 % Normal 20.5-60.0 [facility] Comment on above: Performed By: #### B MP, TSH #### [facility] [address] [address] [address] Reema Mireles MANUAL DIFF REQ NO Normal [facility] Comment on above: Performed By: #### B MP, TSH #### [facility] [address] [place] [address] Dr. Reema Mireles MCH (RBC) [Entitic mass] 30.3 pg Normal 26.7-34.0 [facility] Comment on above: Performed By: #### B MP, TSH #### [facility] [address] [address] [address] Reema Mireles MCHC (RBC) [Mass/Vol] 34.8 g/dL Normal 29.9-35.2 [facility] Comment on above: Performed By: #### B MP, TSH #### [facility] [address] [place] [address] Dr. Reema Mireles MCV (RBC) [Entitic vol] 87.0 fL Normal 81.0-99.0 [facility] Comment on above: Performed By: #### B MP, TSH #### [facility] [address] [address] [address] Reema Mireles MONO # 0.8 103/ul Normal 0.3-0.8 [facility] Comment on above: Performed By: #### B MP, TSH #### [facility] [address] [place] [address] Dr. Reema Mireles Monocytes/100 WBC (Bld) 8.2 % Normal 1.7-12.0 [facility] Comment on above: Performed By: #### B MP, TSH #### [facility] [address] [place] [address] Dr. Reema Mireles NEUT # 5.9 103/ul Normal 1.4-6.5 [facility] Comment on above: Performed By: #### B MP, TSH #### [facility] [address] [place] [address] Dr. Reema Mireles Neutrophils/100 WBC (Bld) 61.9 % Normal 43.0-75.0 [facility] Comment on above: Performed By: #### B MP, TSH #### [facility] [address] [place] [address] Dr. Reema Mireles Platelet mean volume (Bld) [Entitic vol] 10.2 fL Normal 9.5-13.5 [facility] Comment on above: Performed By: #### B MP, TSH #### [facility] [address] [place] [address] Dr. Reema Mireles PLT 382 103/ul Normal 150-450 [facility] Comment on above: Performed By: #### B MP, TSH #### [facility] [address] [place] [address] Dr. Reema Mireles RBC 4.32 106/ul Normal 4.20-5.40 [facility] Comment on above: Performed By: #### B MP, TSH #### [facility] [address] [place] [address] Dr. Reema Mireles WBC 9.6 103/ul Normal 4.0-11.0 [facility] Comment on above: Performed By: #### B MP, TSH #### [facility] [address] [place] [address] Dr. Reema Mireles CRPon 08-11-2022 CRP [Mass/Vol] mg/L Normal <=1.0 [facility] Comment on above: Performed By: #### B MP, TSH #### [facility] [address] [place] [address] Dr. Reema Mireles ER URINE PROFILEon Bilirubin Ql (U) Negative Normal NEGATIVE [facility] Comment on above: Performed By: #### B MP, TSH #### [facility] [address] [place] [address] Dr. Reema Mireles Clarity (U) CLEAR Normal CLEAR [facility] Comment on above: Performed By: #### B MP, TSH #### [facility] [address] [place] [address] Dr. Reema Mireles Color (U) LT. YELLOW Normal YELLOW [facility] Comment on above: Performed By: #### B MP, TSH #### [facility] [address] [place] [address] Dr. Reema Mireles ERUJohana A micrscopic examination will be performed if indicated. Normal [facility] Comment on above: Performed By: #### B MP, TSH #### [facility] [address] [place] [address] Dr. Reema Mireles Glucose Ql (U) Negative Normal NEGATIVE [facility] Comment on above: Performed By: #### B MP, TSH #### [facility] [address] [place] [address] Dr. Reema Mireles Hemoglobin Ql (U) Negative Normal NEGATIVE [facility] Comment on above: Performed By: #### B MP, TSH #### [facility] [address] [place] [address] Dr. Reema Mireles Ketones Ql (U) Negative Normal NEGATIVE [facility] Comment on above: Performed By: #### B MP, TSH #### [facility] [address] [place] [address] Dr. Reema Mireles LEUKOCYTES Negative Normal NEGATIVE [facility] Comment on above: Performed By: #### B MP, TSH #### [facility] [address] [place] [address] Dr. Reema Mireles Nitrite Ql (U) Negative Normal NEGATIVE [facility] Comment on above: Performed By: #### B MP, TSH #### [facility] [address] [place] [address] Dr. Reema Mireles pH (U) 5.5 [pH] Normal 5-9 [facility] Comment on above: Performed By: #### B MP, TSH #### [facility] [address] [place] [address] Dr. Reema Mireles SPEC GRAVITY <=1.005 Abnormal 1.005-<=1.025 [facility] Comment on above: Performed By: #### B MP, TSH #### [facility] [address] [place] [address] Dr. Reema Mireles UA PROTEIN Negative Normal NEGATIVE/ TRACE [facility] Comment on above: Performed By: #### B MP, TSH #### [facility] [address] [place] [address] Dr. Reema Mireles UR MICRO IND NOT INDICATED Normal [facility] Comment on above: Performed By: #### B MP, TSH #### [facility] [address] [place] [address] Dr. Reema Mireles Urobilinogen Qn (U) 0.2 {Renny'U}/dL Normal 0.2 - 1. 0 [facility] Comment on above: Performed By: #### B MP, TSH #### [facility] [address] [place] [address] Dr. Reema Mireles LIPASEon 08-11-2022 Lipase [Catalytic activity/Vol] 71.0 U/L Critically low 73.0-393.0 [facility] Comment on above: Performed By: #### B MP, TSH #### [facility] [address] [place] [address] Dr. Reema Mireles URon 08-11-2022 , QUAL Negative Normal NEGATIVE [facility] Comment on above: Performed By: #### C VDTBH #### [facility] [address] [address] [address] Reema Mireles PROF 14(COMP METB)on 022 Albumin [Mass/Vol] 4.3 g/dL Normal 3.4-5.[address] [facility] Comment on above: Performed By: #### B MP, TSH #### [facility] [address] [place] [address] Dr. Reema Mireles Albumin/Globulin [Mass ratio] 1.2 {ratio} Normal [facility] Comment on above: Performed By: #### B MP, TSH #### [facility] [address] [place] [address] Dr. Reema Mireles ALP [Catalytic activity/Vol] 70 U/L Normal 46-116 [facility] Comment on above: Performed By: #### B MP, TSH #### [facility] [address] [place] [address] Dr. Reema Mireles ALT [Catalytic activity/Vol] 16 U/L Normal 14-59 [facility] Comment on above: Performed By: #### B MP, TSH #### [facility] [address] [address] [address] Reema Mireles Anion gap [Moles/Vol] 10.5 mmol/L Normal [facility] Comment on above: Performed By: #### B MP, TSH #### [facility] [address] [address] [address] Reema Mireles AST [Catalytic activity/Vol] 8 U/L Critically low 15-37 [facility] Comment on above: Performed By: #### B MP, TSH #### [facility] [address] [address] [address] Reema Mireles Bilirubin [Mass/Vol] 0.3 mg/dL Normal 0.2-1.0 [facility] Comment on above: Performed By: #### B MP, TSH #### [facility] [address] [place] [address] Dr. Reema Mireles Calcium [Mass/Vol] 9.0 mg/dL Normal 8.5-10.1 [facility] [facility] Comment on above: Performed By: #### B MP, TSH #### [facility] [address] [address] [address] Reema Mireles Chloride [Moles/Vol] 104 mmol/L Normal 98-107 [facility] Comment on above: Performed By: #### B MP, TSH #### [facility] [address] [address] [address] Reema Mireles CO2 [Moles/Vol] 26.5 mmol/L Normal 21.0-32.0 [facility] Comment on above: Performed By: #### B MP, TSH #### [facility] [address] [address] [address] Reema Mireles Creatinine [Mass/Vol] 0.79 mg/dL Normal 0.55-1.02 [facility] Comment on above: Performed By: #### B MP, TSH #### [facility] [address] [address] [address] Reema Mireles EGFR-AF TONGAN >60 Normal >=60 [facility] Comment on above: Performed By: #### B MP, TSH #### [facility] [address] [address] [address] Reema Mireles EGFR-NON AF TONGAN >60 Normal >=60 [facility] Comment on above: Performed By: #### B MP, TSH #### [facility] [address] [address] [address] Reema Mireles Globulin (S) [Mass/Vol] 3.5 g/dL Normal [facility] Comment on above: Performed By: #### B MP, TSH #### [facility] [address] [place] [address] Dr. Reema Mireles Glucose [Mass/Vol] 106 mg/dL Normal 74-106 [facility] Comment on above: Performed By: #### B MP, TSH #### [facility] [address] [address] [address] Reema Mireles Potassium [Moles/Vol] 3.0 mmol/L Critically low 3.5-5.1 [facility] Comment on above: Performed By: #### B MP, TSH #### [facility] [address] [address] [address] Reema Mireles Protein [Mass/Vol] 7.8 g/dL Normal 6.4-8.[address] [facility] Comment on above: Performed By: #### B MP, TSH #### [facility] [address] [place] [address] Dr. Reema Mireles Sodium [Moles/Vol] 138 mmol/L Normal 136-[address] [facility] Comment on above: Performed By: #### B MP, TSH #### [facility] [address] [place] [address] Dr. Reema Mireles Urea nitrogen [Mass/Vol] 8.0 mg/dL Normal 7.0-18.0 [facility] Comment on above: Performed By: #### B MP, TSH #### [facility] [address] [place] [address] Dr. Reema Mireles Urea nitrogen/Creatinine [Mass ratio] 10.1 mg/mg Normal [facility] Comment on above: Performed By: #### B MP, TSH #### [facility] [address] [place] [address] Dr. Reema Mireles PROTIMEon 08-11-2022 INR Coag (PPP) [Relative time] 1.00 {INR} Normal [facility] Comment on above: Performed By: #### P T, PTT #### [facility] [address] [place] [address] Dr. Reema Mireles INR GUIDELINES SEE BELOW Normal [facility] Comment on above: Result Comment: FELICIANO RED INR: 2.0 - 3.0 CONDITIONS NOT LISTED BELOW 2.5 - 3.5 FOR PROSTHETIC HEART VALVE REPLACEMENT 2.5 - 3.5 RECURRENT THROMBOSIS Performed By: #### P T, PTT #### [facility] [address] [place] [address] Dr. Reema Mireles PT Coag (PPP) [Time] 10.8 s Normal 9.0-11.6 [facility] Comment on above: Performed By: #### P T, PTT #### [facility] [address] [place] [address] Dr. Reema Mireles PTTon 08-11-2022 aPTT Coag (Bld) [Time] 30.8 s Normal 22.3-36.2 [facility] Comment on above: Performed By: #### P T, PTT #### [facility] [address] [place] [address] Dr. [facility]ema [facility] 10 mm/hr Normal <=20 [facility] Comment on above: Performed By: #### B MP, TSH #### [facility] [address] [place] [address] Dr. Reema Mireles TSHon 08-11-2022 TSH 3.313 uIU/mL Normal 0.358-3.740 [facility] Comment on above: Performed By: #### B MP, TSH #### [facility] [address] [place] [address] Dr. Reema Mireles Discharge Instructionson Discharge Instructions [id number] #1.00CD:127 Normal [facility] Comment on above: Other Comment: wrong patient STOOL CULTUREon 04-20-2022 Campylobacter Culture Final report Normal [facility] Comment on above: Performed By: #### B MP, TSH #### [facility] [address] [place] [address] Dr. Reema Mireles E coli Shiga Toxin EIA Negative Normal Negative [facility] Comment on above: Performed By: #### B MP, TSH #### [facility] [address] [place] [address] Dr. Reema Mireles Result 1 Comment Normal [facility] Comment on above: Result Comment: No S almonella or Shigella recovered. Performed By: #### B MP, TSH #### [facility] [address] [place] [address] Dr. Reema Mireles Result Comment: No C ampylobacter species isolated. Salmonella/Shigella Screen Final report Normal [facility] Comment on above: Performed By: #### B MP, TSH #### [facility] [address] [place] [address] Dr. Reema Mireles Coding Summary.on 04-14-2022 Coding Summary. CD:[id number] Gh0bWw+PGhlYWQ+PE1FV RNdZ73htFZneY5ZW3wIA Z1DUZHTMHMECE2UEY6ca MV6JZsdH4JltgEx MrodjFFhOG89VSa6YQF0 hRgoGIbqqB7hnPZjR4t8 OoRrZM35rN53DKujUIUm YcF4RaJtfttpoEKt C9guMxMixYZlCxy+PHRh YmxlIHdpZHRoPScxMDAl ZrVucApkMQ2nPg1pVJEa LWNvbGxhcHNlOiBj o1gsYFSvGIklZV3eeGpp C5UdqHX9OQWrz5d6Qs25 dHI+DGLiNYU4yXegFPjk c228LeOts7kfARI6 rRWxQVfvTVS0R56cp9C5 GDGiDFEuKKC9sYR7dD6z lYyervkmF8DmuSWzQhQ1 IYR3wZHdyN1yrUuj gmwhaN3zHlc+P38HOB8C IJIVMT3SDaa7F0FyPsiu dHI+NI35TBCaVI83fGOl rBJwv8nejXb4WhXy DEYnXOK3fMheHGsov3Sq RTZbR58wxANhb3O3XEUk sPvdaEMcCcOyfLS7vB8m DMnyriswi5mppuqa Uvcnl0osvg30vK07R53j EAraGQJkHRL4HEVkQDPn qVmfdv9nrP5oJo3+IDxj y6wcy4samJc1ErZd BXYvkgEmuCssSMX0c2Zg Br12S9JjcInxi2JaOsh7 qg52zMAfs3L5iBW7FCoy YYGedE2iGDxzQvN0 KHYhCqWhyB21eBScWTym Mp1vpUfuqElaRL3uSRBl sikhCCGhgP5cJUSfwOFh vZbnDU1mSIHxkdlk g361LtOlSDC8IZFviALu A5AerU7bIlGaVRJvGQEp I1SdaZJtHNudR043ZEjc KdM7NKDgfgCqI3Vb HUQthCvhDmP9t7D6Mc7B m0QbiyskQLM5NKhlRUO6 EvD1JaFbWrN9N9MoWrt0 BPSfwUynNP2lL7Rf INQcljgepfniiTU0SYEy EQZhfN85fPCyAErvRd4w m3V2h307GHOkXHYvpR29 Ir6iwRolZSUfrCFL kD3qgwipl9kzekeeGsJn KNMyMHf8VWw4BYMxdEao ToOyADL7BxW5OOE9pVHn fX5dtItpguajsM1z Oyc+C82ohT2rEZP7FHJ1 eyxmZMDtdxYlPC88FS69 U1UfUgopePLzqBE+PGRp aoImdGecEM8pFdBc d1xfp3EzGPyqF8JgEQXu LMzoJar3UJFjAQT7aPQ1 uC0pYTWpXRatd2M5zJA3 S8HhzyShft4um2bs OKQyFBeaX04ekHJvj0W0 OVAlqOD3RGIijAutCcOx wO11Oyk+ZOOquMyfb8Eg Xwkwf9izx1jnlQu7 IjMwJSIgdmFsaWduPSJ0 e6DcXf47P78iHZrcBQLp NWFgAPFeNSFkzXwzlo1p uO0aAs1+PGNvbCB3 uRV5mB1uECIlLvR6YQpt E199VsTebVTaYbvin0zb f4xwiJc7ZrGnTIPxvhXt eZlkFAO8w1MzTw00 A45dKFzySGGuIEIqUDUs EINclJgndo7djP9uJn5+ CW4aa5jopg82kE13dKM+ FOXrMOH0fHsnNDgq OYJelF4yQXsyWmF3CGTr CtWuwR75pBTqBBczMc2y aTogwPtiGB7yMYZcvmao h047BlZdn5quDXGn cGZfENveEIV2R87qp3C4 MTYuGZCiYJB1eNS3lE9v bGlnbjogbGVmdDsgdmVy gLkpJEnzHMfiY587 IHRvcDsnPlBhdGllbnQg KpBrKAt3E4YeXmg3CLZi lAglLX4fzFWgDMspQi1g wUjcjTklFA7nFQFd ryham536EdVvn5kpHUDk zKIcGVfiKEF8X98sm9O9 ZJAeANUdILZ3sQR6nQ4m bGlnbjogbGVmdDsg xpLpqJnhTJwqINgwC018 IHRvcDsnPkJpcnRoIERh rIP3FG04FV01cJUvm7I2 fQA4X5PzEQHpxyoc dyribMY0FUGuDFVrkU87 Ja8tlAfdRx5kKANyJCL5 EVSjzEEaU2GclP8sQtSw FITfQRWaS1OekGZj FGdcJ745JNotVuX7OMEk fiBzV2JwOZJykKyoBqP7 x9O1Vs0NB2J5PU83TC66 xFUqe7Y9vPE5P1Zj UNAwehavvddlxID5NAMv UXQfmX10Iy9cdJvyOs2q XSCrCBO2VUOfyKBnW2Fx iX2lAtWlUNIhHCKi W7UpjAHkYCmmZ472QVrt BwV3ECPiktGfN3ZsRXTz wKbmJsS2q7M7Bl2QKSf6 QO48UO17cNRtj3G8 oLZ3K8QlIHGkbtzyxcks pMT8VESyTVMugK70Ou2m iLplEa6cSZCtTNB2ITDl oTNoO5GfbD8bPhCc GLWkKCFjS3UbqQGvYPts V122RUvsTuJ2EHKkwcPx D0GyVPDbeQmcZrY9h3M5 Cs3CAEUsOI67FKU5 zVS1UY59HL39B9NqNeaa dGFibGU+PHRhYmxlIHdp ZHRoPScxMDAlJyBzdHls GO6gCy2vQZNhQOJv cIfeiYQbFsGhx8gfHDXc RYwwZZ9jzQltG4RqpXE7 CCKqo7b2Xi62I97pL2Uu dXA+NHUrkVV8gCB2 hS6jDwBwSyH9ACanZ365 GkXxsOLjYhzmw6xwx5vw hYk6BnH7NKLmsaYjaQzg UPP3a8AzDl82U99y IHdpZHRoPSIxNSUiIHZh cQmpit1vnU1zPl8+PGNv oEA0mMX5cD6jUzZcQhI9 MKrrL272KgDnxXOn Xwxhy3dmh5uyiGn7VkSv YRFbmaDdjWdtFZG0y2Jq Cc23Y2AndAtwv7OvBvv2 aw65dVFzk8V4xTR0 C3TkKBJundtllEEdaUoo QY6xNNYdlpqzOLVhmW1d ABJfD1n0DoZrYxK8CHqi Z5OmybF9SHRgyFXz XWmeKEK7O83ac3Y8VFHg KJLbKNC0tJS7xJ5ztGyd bjogbGVmdDsgdmVydGlj TKjdPKmtY439GMHq bPmgFPZfyU1jXZNhfMAr bHpkCC0fXLYungmoFepO JAYYR41LU3mLXXZTSCYK XJN1K2FdFce7UVQq rTrxMZ8lySUpGQnsZu3i kMduaWcwWG8pLVXfzslh FDIhqB1bOALtrVLocBle OI7aKJUnbatmr869 MfMwRNB9SCIprYIhX1Fq mV0fPjNlHKCsTOUnY5Is qHOnAKqcP986TUwoBuR6 QTBscmYaB7VoGGNg tLayOeX5u9P1Dh8pVi7x OE9lQPPkXZ99BE81cLMz l6C8dFX0Z5BnZZWkwucz mnyroKS0VMWkVKGq tX26oPCiAIlbJp3bj2X7 j557HWTnTSFexJ53Jm9q eRcdXSGtkFLGtV4gpzmn o5rhgydfDmUuOYVp DFy7PQk2PJCthXvhTvBy RMX6WvH6NUQ6eMSkoO2t hFiojugzpW5iVls+MjAg LNJmlgW7X5IlEwt4 WUDptJewXP0lcNMqVWjh Ll4dbGqjsUgjPW2oHSPb oettDQIjqV8aFTRslZQt kOcuMB3mTCAalzdo r225MaAgRMK9LIZxmOMb Z6GbhE2gLmAdMGYvCEKu G3PeeIHoBXlkU816QQxc AxN7TUFraaXlO4Yq KLNczLoiVqQ6h9X8Dr8O QZ7xmPM9B9ZgYdh7WSBu xYbjXG9zzIPmLKzhEz1l vEuysDlsGH6aNOSm ujjqNSExdC2qBEKusCYh lExrBF4cSVJfglmqt050 AyNuZDP8TZUznMKbK4Cc eO2cCeJpAIOwJGRh D1BloSMwBEvtD106VDwl SaV4ZJKsjrZrL6WmFDQa gDlwCcI5e7F4Tn3GcPPl D4PnH2l0S7HrRiqg dHI+QV94BGPkEG89pOGx oFKwv1zqkRu5FpPrMPGv WBA2pVvnHMxti7EhRXAh G66asHEie1E2LYQv eJgssLUvPoHriSF8aI1u SFruzvall0szgfpiSvaz h2pxlg68gH14Z64pYKmd ZHRoPSIzMCUiIHZh bHsirh3eiX0fIu3+PGNv gWD2jQG4qR6oQnOcCaN9 AZfmX190IhZtuBIjHfre u1ckq4unlGr9WnZp NGBdeiZpzDinKYL9y8Ad Mb63O64cZFbkQJImLUXn ADYaAJAmyFwrvu3xjB8u Ii8+OE0kh2jmey70 eE68cFD+CYDuXAE0fPqy GCrmEIWqaD9sMCewVsW5 PDJmFiYxjG44tOEqZLwl Ms6obGjabNvcAF1o WMOxzhpei437QlMww7ut EOHfdZZfROusPNG1L76l t3V7LVJlUUGnDCL9vDI9 xM5eaGvvjlbkhNKe dDsgdmVydGljYWwtYWxp O649LIZvaNqpLbMsrJFp W9gtnmUDWE3pSijelVQ+ ZREyCOV1fWgbZEjs RVZxuR1hZGWsF6d9NyJj DaT8WSffO6LwhnT9JFGg cCTyZQXatMMWvQ0gpgzb t1ewzffeGuRlPBTl JUo5MBo9SOVtsGyvDmIx CYH7XlT5DPL7cMWtxZ8p hWvdgezipY3dHzl+RklO OjwvdGQ+PHRkIHN0 eBeuSNrrJFPftL2tCLJk C0n5KfKqLrP9LDrsR6Uo jsR5JMPxnNFlMZUdlZTW hT1vgmjwb0hqbuui PbYqQRPiXNz8ESd8CMAn sItzWhDgIKO9FbG5VFG2 xYEfpO3znMdtcunasI4a Oyc+TVJOOjwvdGQ+ QSIwJBY3vRxwROkoMKEy kI0xXZLiW7s8HlGnLoW2 QBdaW7PbadU1ITFffSNi PHJypMCKsU1ldoem q4tfgncdVmUlMWXjDRj4 RLb9YUOvsArcUePwVES4 NcR5CFB4mHWrfH6bhQxd mvryuN1pBqb+UGF5 YUC1OD89RE71T8OzUxev dGFibGU+PHRhYmxlIHdp ZHRoPScxMDAlJyBzdHls MQ0eQe8zXDGaKEWc bGxh (more content not included)... Normal [facility] CBC AUTO DIFFon 04-13-2022 BASO # 0.1 103/ul Normal 0.0-0.1 [facility] Comment on above: Performed By: #### C VDTBH #### [facility] [address] [place] [address] Dr. Reema Mireles Basophils/100 WBC (Bld) 0.6 % Normal 0.2-2.0 [facility] Comment on above: Performed By: #### C VDTBH #### [facility] [address] [place] [address] Dr. Reema Mireles EO # 0.0 103/ul Normal 0.0-0.7 [facility] Comment on above: Performed By: #### C VDTBH #### [facility] [address] [place] [address] Dr. Reema Mireles Eosinophils/100 WBC (Bld) 0.2 % Critically low 0.9-7.0 [facility] Comment on above: Performed By: #### C VDTBH #### [facility] [address] [place] [address] Dr. Reema Mireles Erythrocyte distribution width (RBC) [Ratio] 11.4 % Normal 11.0-15.0 [facility] Comment on above: Performed By: #### C VDTBH #### [facility] [address] [place] [address] Dr. Reema Mireles Hematocrit (Bld) [Volume fraction] 38.3 % Normal 36.0-48.0 [facility] Comment on above: Performed By: #### C VDTBH #### [facility] [address] [address] [address] Reema Mireles Hemoglobin (Bld) [Mass/Vol] 13.4 g/dL Normal 12.0-16.0 [facility] Comment on above: Performed By: #### C VDTBH #### [facility] [address] [place] [address] Dr. Reema Mireles IG # 0.01 10e3/ul Normal 0.00-0.03 [facility] Comment on above: Performed By: #### C VDTBH #### [facility] [address] [place] [address] Dr. Reema Mireles IG % 0.1 % Normal 0.0-0.5 [facility] Comment on above: Performed By: #### C VDTBH #### [facility] [address] [place] [address] Dr. Reema Mireles LYMPH # 1.8 103/ul Normal 1.2-3.8 [facility] Comment on above: Performed By: #### C VDTBH #### [facility] [address] [place] [address] Dr. Reema Mireles Lymphocytes/100 WBC (Bld) 22.2 % Normal 20.5-60.0 [facility] Comment on above: Performed By: #### C VDTBH #### [facility] [address] [place] [address] Dr. Reema Mireles MANUAL DIFF REQ NO Normal [facility] Comment on above: Performed By: #### C VDTBH #### [facility] [address] [place] [address] Dr. Reema Mireles MCH (RBC) [Entitic mass] 30.6 pg Normal 26.7-34.0 [facility] Comment on above: Performed By: #### C VDTBH #### [facility] [address] [place] [address] Dr. Reema Mireles MCHC (RBC) [Mass/Vol] 35.0 g/dL Normal 29.9-35.2 [facility] Comment on above: Performed By: #### C VDTBH #### [facility] [address] [place] [address] Dr. Reema Mireles MCV (RBC) [Entitic vol] 87.4 fL Normal 81.0-99.0 [facility] Comment on above: Performed By: #### C VDTBH #### [facility] [address] [place] [address] Dr. Reema Mireles MONO # 0.7 103/ul Normal 0.3-0.8 [facility] Comment on above: Performed By: #### C VDTBH #### [facility] [address] [place] [address] Dr. Reema Mireles Monocytes/100 WBC (Bld) 8.2 % Normal 1.7-12.0 [facility] Comment on above: Performed By: #### C VDTBH #### [facility] [address] [place] [address] Dr. Reema Mireles NEUT # 5.5 103/ul Normal 1.4-6.5 [facility] Comment on above: Performed By: #### C VDTB #### [facility] [address] [place] [address] Dr. Reema Mireles Neutrophils/100 WBC (Bld) 68.7 % Normal 43.0-75.0 [facility] Comment on above: Performed By: #### C VDTBH #### [facility] [address] [place] [address] Dr. Reema Mireles Platelet mean volume (Bld) [Entitic vol] 10.1 fL Normal 9.5-13.5 [facility] Comment on above: Performed By: #### C VDTBH #### [facility] [address] [place] [address] Dr. Reema Mireles PLT 404 103/ul Normal 150-450 [facility] Comment on above: Performed By: #### C VDTBH #### [facility] [address] [place] [address] Dr. Reema Mireles RBC 4.38 106/ul Normal 4.20-5.40 [facility] Comment on above: Performed By: #### C VDTBH #### [facility] [address], [place] [address] Dr. Reema Mireles WBC 8.0 103/ul Normal 4.0-11.0 [facility] Comment on above: Performed By: #### C [facility] #### [facility] [address], [place] [address] HEAD WO CONon [...] AURELIA CARLOS Date: 2022-04-13 16:29 Normal [facility] Discharge Instructionson Discharge Instructions [id number] #1.00CD:127 Normal [facility] ED Note-Physicianon 04-13-20 ED Note-Physician Basic Information Time Seen: Lata Hardy M.D. 04/12/2022 19:56 Chief Complaint Pt. presents to the ed with c/o headache and vertigo since thursday. [facility] started on [facility]one. pt. stopped taking [...] The patient states she was seen at [facility] discharged home. She went to [...] neurological deficit. She has been seen at [facility] and started on prednisone. Possible [...] ADRYAN MARIE In 3 days 04/15/2022 EDT [facility] [place] [address]- Business (1) Additional Instructions: Return to the [...] Diagnostic Results No qualifying data available. Normal [facility] Comment on above: Result Comment: Elec tronically Signed By: Antony Villa, Lata Baxter\.br\Date and Time Signed: 04/13/22 04:56 EDT ER URINE PROFILEon 2 Bilirubin Ql (U) Negative Normal NEGATIVE [facility] Comment on above: Performed By: #### P REGU, ERUR #### [facility] [address] [place] [address] Dr. Reema Mireles Clarity (U) CLEAR Normal CLEAR [facility] Comment on above: Performed By: #### P REGU, ERUR #### [facility] [address] [place] [address] Dr. Reema Mireles Color (U) LT. YELLOW Normal YELLOW [facility] Comment on above: Performed By: #### P REGU, ERUR #### [facility] [address] [place] [address] Dr. Reema Mireles ERUAHD A micrscopic examination will be performed if indicated. Normal [facility] Comment on above: Performed By: #### P REGU, ERUR #### [facility] [address] [place] [address] Dr. Reema Mireles Glucose Ql (U) Negative Normal NEGATIVE [facility] Comment on above: Performed By: #### P REGU, ERUR #### [facility] [address] [place] [address] Dr. Reema Mireles Hemoglobin Ql (U) Negative Normal NEGATIVE [facility] Comment on above: Performed By: #### P REGU, ERUR #### [facility] [address] [place] [address] Dr. Reema Mireles Ketones Ql (U) Negative Normal NEGATIVE [facility] Comment on above: Performed By: #### P REGU, ERUR #### [facility] [address] [place] [address] Dr. Reema Mireles LEUKOCYTES Negative Normal NEGATIVE [facility] Comment on above: Performed By: #### P REGU, ERUR #### [facility] [address] [address] [address] Reema Mireles Nitrite Ql (U) Negative Normal NEGATIVE [facility] Comment on above: Performed By: #### P REGU, ERUR #### [facility] [address] [place] [address] Dr. Reema Mireles pH (U) 6.5 [pH] Normal 5-9 [facility] Comment on above: Performed By: #### P REGU, ERUR #### [facility] [address] [place] [address] Dr. Reema Mireles SPEC GRAVITY 1.005 Normal 1.005-<=1.025 [facility] Comment on above: Performed By: #### P REGU, ERUR #### [facility] [address] [place] [address] Dr. Reema Mireles UA PROTEIN Negative Normal NEGATIVE/ TRACE [facility] Comment on above: Performed By: #### P REGU, ERUR #### [facility] [address] [place] [address] Dr. Reema Mireles UR MICRO IND NOT INDICATED Normal [facility] Comment on above: Performed By: #### P REGU, ERUR #### [facility] [address] [place] [address] Dr. Reema Mireles Urobilinogen Qn (U) 0.2 {Renny'U}/dL Normal 0.2 - 1. 0 [facility] Comment on above: Performed By: #### P REGU, ERUR #### [facility] [address] [address] [address] Reema Mireles URon 04-13-2022 , QUAL Negative Normal NEGATIVE [facility] Comment on above: Performed By: #### P REGU, ERUR #### [facility] [address] [place] [address] Dr. Reema Mireles PROF CHEM 8 (BAS METB)on Anion gap [Moles/Vol] 14.0 mmol/L Normal [facility] Comment on above: Performed By: #### B MP, TSH #### [facility] [address] [place] [address] Dr. Reema Mireles Calcium [Mass/Vol] 9.2 mg/dL Normal 8.5-10.[address] [facility] Comment on above: Performed By: #### B MP, TSH #### [facility] [address] [place] [address] Dr. Reema Mireles Chloride [Moles/Vol] 102 mmol/L Normal 98-107 [facility] Comment on above: Performed By: #### B MP, TSH #### [facility] [address] [place] [address] Dr. Reema Mireles CO2 [Moles/Vol] 26.3 mmol/L Normal 21.0-32.0 [facility] Comment on above: Performed By: #### B MP, TSH #### [facility] [address] [place] [address] Dr. Reema Mireles Creatinine [Mass/Vol] 0.65 mg/dL Normal 0.55-1.02 [facility] Comment on above: Performed By: #### B MP, TSH #### [facility] [address] [place] [address] Dr. Reema Mireles EGFR-AF TONGAN >60 Normal >=60 [facility] Comment on above: Performed By: #### B MP, TSH #### [facility] [address] [place] [address] Dr. Reema Mireles EGFR-NON AF TONGAN >60 Normal >=60 [facility] Comment on above: Performed By: #### B MP, TSH #### [facility] [address] [address] [address] Reema Mierles Glucose [Mass/Vol] 92 mg/dL Normal 74-[address] [facility] Comment on above: Performed By: #### B MP, TSH #### [facility] [address] [address] [address] Reema Mireles Potassium [Moles/Vol] 3.3 mmol/L Critically low 3.5-5.1 [facility] Comment on above: Performed By: #### B MP, TSH #### [facility] [address] [address] [address] Reema Mireles Sodium [Moles/Vol] 139 mmol/L Normal 136-[address] [facility] Comment on above: Performed By: #### B MP, TSH #### [facility] [address] [address] [address] Reema Mireles Urea nitrogen [Mass/Vol] 8.0 mg/dL Normal 7.0-18.0 [facility] Comment on above: Performed By: #### B MP, TSH #### [facility] [address] [address] [address] Reema Mireles Urea nitrogen/Creatinine [Mass ratio] 12.3 mg/mg Normal [facility] Comment on above: Performed By: #### B MP, TSH #### [facility] [address] [address] [address] Reema Mireles TSHon 04-13-2022 TSH 1.293 uIU/mL Normal 0.358-3.740 [facility] Comment on above: Performed By: #### B MP, TSH #### [facility] [address] [address] [address] Reema Mireles Consent for Treatmenton 03-28 Consent for Treatment [id number] Normal [facility] ED Clinical Summaryon 2021 ED Clinical Summary [address] [address] ED Clinical Summary Person Information Name: JUANPABLO CHAPARRO [place] Age: 21 Years : 2000 Sex: Female Language: Kosovan PCP: ADRYAN MARIE MD Marital Status: Single Phone: [phone] Visit Id: Visit Reason: Vertigo - recurrent; [...] 04/12/2022 21:07:38 04/12/2022 21:07:38 04/12/2022 21:07:38 ADDRESS: [address] [place] [id number] PHYS DOC NOTES: MEDICAL INFORMATION: Prescriptions Given: PATIENT EDUCATION INFORMATION: Instructions: General Headache Without Cause; Vertigo Follow up: With: Address: When: ADRYAN MARIE [address] [place], [place] [id number] [employer] (1) In 3 days 04/15/2022 Comments: Return to the emergency room if her headache gets worse, vertigo becomes persistent or any new symptoms DIAGNOSIS: 1:Vertigo; 2:Headache Normal [facility] ED Patient Education Noteon 04-12-2022 [...] you feel dizzy. General instructions ? Take [id number] and prescription medicines only as told by [...] 06/24/2006 Document Revised: 08/08/2019 Document Reviewed: 08/08/2019 [employer] Patient Education ? 2020 [employer] Neurology General Headache Without Cause A [...] with your condition: Managing pain ? Take cjht-iqv-tiehrnj and prescription medicines only as told by [...] of beer (more content not included)... Normal [facility] ED Patient Summaryon 022 ED Patient Summary [address] [id number] Patient Discharge Instructions Person Information Name: JUANPABLO CHAPARRO Age: 21 Years Arrival Date: 04/12/2022 19:22:40 Discharge Diagnosis: 1:Vertigo; 2:Headache Primary Care Physician: ADRYAN MARIE MD Provider Information Primary Provider: Lata Hardy M.D. Advanced Shank Paperer:None The exam and treatment you received in the Emergency Department were for an urgent problem and are not intended as complete care. It is important that you follow up with a doctor, nurse practitioner, or physician?s clinical nursing assistant for ongoing care. If your symptoms [...] Follow-up Instructions: With: Address: When: ADRYAN MARIE [address] [place] [address] [employer] (1) In 3 days 04/15/2022 Comments: [...] opioids can be used to help relieve djjbtvdk-eu-tedacp pain and are often prescribed following a [...] addiction, tel (more content not included)... Normal [facility] CBC AUTO DIFFon 04-09-2022 BASO # 0.1 103/ul Normal 0.0-0.1 [facility] Comment on above: Performed By: #### B MP, TSH #### [facility] [address] [address] [address] Reema Mireles Basophils/100 WBC (Bld) 0.5 % Normal 0.2-2.0 [facility] Comment on above: Performed By: #### B MP, TSH #### [facility] [address] [place] [address] Dr. Reema Mireles EO # 0.1 103/ul Normal 0.0-0.7 [facility] Comment on above: Performed By: #### B MP, TSH #### [facility] [address] [place] [address] Dr. Reema Mireles Eosinophils/100 WBC (Bld) 1.0 % Normal 0.9-7.0 [facility] Comment on above: Performed By: #### B MP, TSH #### [facility] [address] [place] [address] Dr. Reema Mireles Erythrocyte distribution width (RBC) [Ratio] 11.7 % Normal 11.0-15.0 [facility] Comment on above: Performed By: #### B MP, TSH #### [facility] [address] [place] [address] Dr. Reema Mireles Hematocrit (Bld) [Volume fraction] 37.2 % Normal 36.0-48.0 [facility] Comment on above: Performed By: #### B MP, TSH #### [facility] [address] [place] [address] Dr. Reema Mireles Hemoglobin (Bld) [Mass/Vol] 12.8 g/dL Normal 12.0-16.0 [facility] Comment on above: Performed By: #### B MP, TSH #### [facility] [address] [place] [address] Dr. Reema Mireles IG # 0.02 10e3/ul Normal 0.00-0.03 [facility] Comment on above: Performed By: #### B MP, TSH #### [facility] [address] [place] [address] Dr. Reema Mireles IG % 0.2 % Normal 0.0-0.5 [facility] Comment on above: Performed By: #### B MP, TSH #### [facility] [address] [place] [address] Dr. Reema Mireles LYMPH # 1.8 103/ul Normal 1.2-3.8 [facility] Comment on above: Performed By: #### B MP, TSH #### [facility] [address] [address] [address] Reema Mireles Lymphocytes/100 WBC (Bld) 19.0 % Critically low 20.5-60.0 [facility] Comment on above: Performed By: #### B MP, TSH #### [facility] [address] [address] [address] Reema Mireles MANUAL DIFF REQ NO Normal [facility] Comment on above: Performed By: #### B MP, TSH #### [facility] [address] [address] [address] Reema Mireles MCH (RBC) [Entitic mass] 30.4 pg Normal 26.7-34.0 [facility] Comment on above: Performed By: #### B MP, TSH #### [facility] [address] [place] [address] Dr. Reema Mireles MCHC (RBC) [Mass/Vol] 34.4 g/dL Normal 29.9-35.2 [facility] Comment on above: Performed By: #### B MP, TSH #### [facility] [address] [address] [address] Reema Mireles MCV (RBC) [Entitic vol] 88.4 fL Normal 81.0-99.0 [facility] Comment on above: Performed By: #### B MP, TSH #### [facility] [address] [address] [address] Reema Mireles MONO # 0.7 103/ul Normal 0.3-0.8 [facility] Comment on above: Performed By: #### B MP, TSH #### [facility] [address] [address] [address] Reema Mireles Monocytes/100 WBC (Bld) 6.8 % Normal 1.7-12.0 [facility] Comment on above: Performed By: #### B MP, TSH #### [facility] [address] [address] [address] Reema Mireles NEUT # 7.0 103/ul Critically high 1.4-6.5 [facility] Comment on above: Performed By: #### B MP, TSH #### [facility] [address] [address] [address] Reema Mireles Neutrophils/100 WBC (Bld) 72.5 % Normal 43.0-75.0 [facility] Comment on above: Performed By: #### B MP, TSH #### [facility] [address] [address] [address] Reema Mireles Platelet mean volume (Bld) [Entitic vol] 10.3 fL Normal 9.5-13.5 [facility] Comment on above: Performed By: #### B MP, TSH #### [facility] [address] [place] [address] Dr. Reema Mireles PLT 358 103/ul Normal 150-450 [facility] Comment on above: Performed By: #### B MP, TSH #### [facility] [address] [place] [address] Dr. Reema Mireles RBC 4.21 106/ul Normal 4.20-5.40 [facility] Comment on above: Performed By: #### B MP, TSH #### [facility] [address] [place] [address] Dr. Reema Mireles WBC 9.7 103/ul Normal 4.0-11.0 [facility] Comment on above: Performed By: #### B MP, TSH #### [facility] [address] [place] [address] Dr. Reema Mireles CULTURE BLOODon 04-09-2022 Microscopic examination of blood, culture Culture Observations: NO GROWTH AT 5 DAYS. Normal [facility] Comment on above: Performed By: #### B MP, TSH #### [facility] [address] [place] [address] Dr. Reema Mireles ER URINE PROFILEon 2 Bilirubin Ql (U) Negative Normal NEGATIVE [facility] Comment on above: Performed By: #### B MP, TSH #### [facility] [address] [place] [address] Dr. Reema Mireles Clarity (U) CLEAR Normal CLEAR [facility] Comment on above: Performed By: #### B MP, TSH #### [facility] [address] [address] [address] Reema Mireles Color (U) LT. YELLOW Normal YELLOW [facility] Comment on above: Performed By: #### B MP, TSH #### [facility] [address] [place] [address] Dr. Reema Mireles ERUAHD A micrscopic examination will be performed if indicated. Normal [facility] Comment on above: Performed By: #### B MP, TSH #### [facility] [address] [place] [address] Dr. Reema Mireles Glucose Ql (U) Negative Normal NEGATIVE [facility] Comment on above: Performed By: #### B MP, TSH #### [facility] [address] [place] [address] Dr. Reema Mireles Hemoglobin Ql (U) TRACE-INTACT Abnormal NEGATIVE [facility] Comment on above: Performed By: #### B MP, TSH #### [facility] [address] [place] [address] Dr. Reema Mireles Ketones Ql (U) Negative Normal NEGATIVE [facility] Comment on above: Performed By: #### B MP, TSH #### [facility] [address] [place] [address] Dr. Reema Mireles LEUKOCYTES Negative Normal NEGATIVE [facility] Comment on above: Performed By: #### B MP, TSH #### [facility] [address] [place] [address] Dr. Reema Mireles Nitrite Ql (U) Negative Normal NEGATIVE [facility] Comment on above: Performed By: #### B MP, TSH #### [facility] [address] [address] [address] Reema Mireles pH (U) 5.5 [pH] Normal 5-9 [facility] Comment on above: Performed By: #### B MP, TSH #### [facility] [address] [place] [address] Dr. Reema Mireles SPEC GRAVITY <=1.005 Abnormal 1.005-<=1.025 [facility] Comment on above: Performed By: #### B MP, TSH #### [facility] [address] [place] [address] Dr. Reema Mireles UA PROTEIN Negative Normal NEGATIVE/ TRACE [facility] Comment on above: Performed By: #### B MP, TSH #### [facility] [address] [place] [address] Dr. Reema Mireles UR MICRO IND INDICATED Normal [facility] Comment on above: Performed By: #### B MP, TSH #### [facility] [address] [place] [address] Dr. Reema Mireles Urobilinogen Qn (U) 0.2 {Renny'U}/dL Normal 0.2 - 1. 0 [facility] Comment on above: Performed By: #### B MP, TSH #### [facility] [address] [place] [address] Dr. Reema Mireles LACTATE/LACTIC ACIDon 2021 Lactate [Moles/Vol] 2.2 mmol/L Critically high 0.4-1.9 [facility] Comment on above: Performed By: #### B MP, TSH #### [facility] [address] [place] [address] Dr. Reema Mireles URon 04-09-2022 , QUAL Negative Normal NEGATIVE [facility] Comment on above: Performed By: #### B MP, TSH #### [facility] [address] [place] [address] Dr. Reema Mireles PROF 14(COMP METB)on 022 Albumin [Mass/Vol] 4.5 g/dL Normal 3.4-5.[address] [facility] Comment on above: Performed By: #### C MP #### [facility] [address] [place] [address] Dr. Reema Mireles Albumin/Globulin [Mass ratio] 1.3 {ratio} Normal [facility] Comment on above: Performed By: #### C MP #### [facility] [address] [place] [address] Dr. Reema Mireles ALP [Catalytic activity/Vol] 83 U/L Normal 46-116 [facility] Comment on above: Performed By: #### C MP #### [facility] [address] [address] [address] Reema Mireles ALT [Catalytic activity/Vol] 26 U/L Normal 14-59 [facility] Comment on above: Performed By: #### C MP #### [facility] [address] [address] [address] Reema Mireles Anion gap [Moles/Vol] 14.9 mmol/L Normal [facility] Comment on above: Performed By: #### C MP #### [facility] [address] [address] [address] Reema Mireles AST [Catalytic activity/Vol] 12 U/L Critically low 15-37 [facility] Comment on above: Performed By: #### C MP #### [facility] [address] [address] [address] Reema Mireles Bilirubin [Mass/Vol] 0.3 mg/dL Normal 0.2-1.0 [facility] Comment on above: Performed By: #### C MP #### [facility] [address] [address] [address] Reema Mireles Calcium [Mass/Vol] 9.6 mg/dL Normal 8.5-10.[address] [facility] Comment on above: Performed By: #### C MP #### [facility] [address] [address] [address] Reema Mireles Chloride [Moles/Vol] 103 mmol/L Normal 98-107 [facility] Comment on above: Performed By: #### C MP #### [facility] [address] [address] [address] Reema Mireles CO2 [Moles/Vol] 24.4 mmol/L Normal 21.0-32.0 [facility] Comment on above: Performed By: #### C MP #### [facility] [address] [address] [address] Reema Mireles Creatinine [Mass/Vol] 0.87 mg/dL Normal 0.55-1.02 [facility] Comment on above: Performed By: #### C MP #### [facility] [address] [address] [address] Reema Mireles EGFR-AF TONGAN >60 Normal >=60 [facility] Comment on above: Performed By: #### C MP #### [facility] [address] [address] [address] Reema Mireles EGFR-NON AF TONGAN >60 Normal >=60 [facility] Comment on above: Performed By: #### C MP #### [facility] [address] [address] [address] Reema Mireles Globulin (S) [Mass/Vol] 3.5 g/dL Normal [facility] Comment on above: Performed By: #### C MP #### [facility] [address] [address] [address] Reema Mireles Glucose [Mass/Vol] 109 mg/dL Critically high 74-106 [facility] Comment on above: Performed By: #### C MP #### [facility] [address] [address] [address] Reema Mireles Potassium [Moles/Vol] 3.3 mmol/L Critically low 3.5-5.1 [facility] Comment on above: Performed By: #### C MP #### [facility] [address] [address] [address] Reema Mireles Protein [Mass/Vol] 8.0 g/dL Normal 6.4-8.2 [facility] Comment on above: Performed By: #### C MP #### [facility] [address] [address] [address] Reema Mireles Sodium [Moles/Vol] 139 mmol/L Normal 136-145 [facility] Comment on above: Performed By: #### C MP #### [facility] [address] [address] [address] Reema Mireles Urea nitrogen [Mass/Vol] 9.0 mg/dL Normal 7.0-18.0 [facility] Comment on above: Performed By: #### C MP #### [facility] [address] [place] [address] Dr. Reema Mireles Urea nitrogen/Creatinine [Mass ratio] 10.3 mg/mg Normal [facility] Comment on above: Performed By: #### C MP #### [facility] [address] [place] [address] Dr. Reema Mireles URINE MICROSCOPIC ONLYon BACTERIA NONE SEEN Normal NONE SEEN [facility] Comment on above: Performed By: #### B MP, TSH #### [facility] [address] [place] [address] Dr. Reema Mireles Bacteria identified Cx Nom (U) NOT INDICATED Normal [facility] Comment on above: Performed By: #### B MP, TSH #### [facility] [address] [place] [address] Dr. Reema Mireles CAST NONE SEEN Normal NONE SEEN [facility] Comment on above: Performed By: #### B MP, TSH #### [facility] [address] [place] [address] Dr. Reema Mireles Crystals LM Nom (Urine sed) NONE SEEN Normal NONE SEEN [facility] Comment on above: Performed By: #### B MP, TSH #### [facility] [address] [place] [address] Dr. Reema Mireles Epithelial cells LM Ql (Urine sed) RARE Normal NONE SEEN /RARE [facility] Comment on above: Performed By: #### B MP, TSH #### [facility] [address] [place] [address] Dr. Reema Mireles MUCOUS NONE SEEN Normal NONE SEEN [facility] Comment on above: Performed By: #### B MP, TSH #### [facility] [address] [place] [address] Dr. Reema Mireles RBC 0-2 Normal 0-2 [facility] Comment on above: Performed By: #### B MP, TSH #### [facility] [address] [place] [address] Dr. Reema Mireles WBC NONE SEEN Normal NONE SEEN [facility] Comment on above: Performed By: #### B MP, TSH #### [facility] [address] [address] [address] Reema Mireles CBC AUTO DIFFon 10-25-2021 BASO # 0.0 103/ul Normal 0.0-0.1 [facility] Comment on above: Performed By: #### C BC #### [facility] [address] [address] [address] Reema Mireles Basophils/100 WBC (Bld) 0.6 % Normal 0.2-2.0 [facility] Comment on above: Performed By: #### C BC #### [facility] [address] [place] [address] Dr. Reema Mireles EO # 0.1 103/ul Normal 0.0-0.7 [facility] Comment on above: Performed By: #### C BC #### [facility] [address] [place] [address] Dr. Reema Mireles Eosinophils/100 WBC (Bld) 1.8 % Normal 0.9-7.0 [facility] Comment on above: Performed By: #### C BC #### [facility] [address] [place] [address] Dr. Reema Mireles Erythrocyte distribution width (RBC) [Ratio] 11.9 % Normal 11.0-15.0 [facility] Comment on above: Performed By: #### C BC #### [facility] [address] [place] [address] Dr. Reema Mireles Hematocrit (Bld) [Volume fraction] 38.1 % Normal 36.0-48.0 [facility] Comment on above: Performed By: #### C BC #### [facility] [address] [place] [address] Dr. Reema Mireles Hemoglobin (Bld) [Mass/Vol] 13.1 g/dL Normal 12.0-16.0 [facility] Comment on above: Performed By: #### C BC #### [facility] [address] [place] [address] Dr. Reema Mireles IG # 0.01 10e3/ul Normal 0.00-0.03 [facility] Comment on above: Performed By: #### C BC #### [facility] [address] [place] [address] Dr. Reema Mireles IG % 0.1 % Normal 0.0-0.5 [facility] Comment on above: Performed By: #### C BC #### [facility] [address] [place] [address] Dr. Reema Mireles LYMPH # 1.9 103/ul Normal 1.2-3.8 [facility] Comment on above: Performed By: #### C BC #### [facility] [address] [place] [address] Dr. Reema Mireles Lymphocytes/100 WBC (Bld) 27.8 % Normal 20.5-60.0 [facility] Comment on above: Performed By: #### C BC #### [facility] [address] [place] [address] Dr. Reema Mireles MANUAL DIFF REQ NO Normal [facility] Comment on above: Performed By: #### C BC #### [facility] [address] [place] [address] Dr. Reema Mireles MCH (RBC) [Entitic mass] 30.5 pg Normal 26.7-34.0 [facility] Comment on above: Performed By: #### C BC #### [facility] [address] [place] [address] Dr. Reema iMreles MCHC (RBC) [Mass/Vol] 34.4 g/dL Normal 29.9-35.2 [facility] Comment on above: Performed By: #### C BC #### [facility] [address] [place] [address] Dr. Reema Mireles MCV (RBC) [Entitic vol] 88.8 fL Normal 81.0-99.0 [facility] Comment on above: Performed By: #### C BC #### [facility] [address] [place] [address] Dr. Reema Mireles MONO # 0.8 103/ul Normal 0.3-0.8 [facility] Comment on above: Performed By: #### C BC #### [facility] [address] [place] [address] Dr. Reema Mireles Monocytes/100 WBC (Bld) 11.2 % Normal 1.7-12.0 [facility] Comment on above: Performed By: #### C BC #### [facility] [address] [place] [address] Dr. Reema Mireles NEUT # 4.0 103/ul Normal 1.4-6.5 [facility] Comment on above: Performed By: #### C BC #### [facility] [address] [place] [address] Dr. Reema Mireles Neutrophils/100 WBC (Bld) 58.5 % Normal 43.0-75.0 [facility] Comment on above: Performed By: #### C BC #### [facility] [address] [place] [address] Dr. Reema Mireles Platelet mean volume (Bld) [Entitic vol] 10.0 fL Normal 9.5-13.5 [facility] Comment on above: Performed By: #### C BC #### [facility] [address] [place] [address] Dr. Reema Mireles PLT 361 103/ul Normal 150-450 [facility] Comment on above: Performed By: #### C BC #### [facility] [address] [place] [address] Dr. Reema Mireles RBC 4.29 106/ul Normal 4.20-5.40 [facility] Comment on above: Performed By: #### C BC #### [facility] [address] [place] [address] Dr. Reema Mireles WBC 6.8 103/ul Normal 4.0-11.0 [facility] Comment on above: Performed By: #### C BC #### [facility] [address] [place] [address] Dr. Reema Mireles PREG QUANT HCGon 10-25-2021 HCG QUANT 1 mIU/mL Normal [facility] Comment on above: Performed By: #### P REGQNT #### [facility] [address] [place] [address] Dr. Reema Mireles HCG RANGE SEE BELOW Normal [facility] Comment on above: Result Comment: 50 0-1 WEEK 40-300 1-2 WEEKS 100-1,000 2-3 WEEKS 500-6,000 3-4 WEEKS 5,000-200,000 1-2 MONTHS 10,000-100,000 2-3 MONTHS 3,000-50,000 2ND TRIMESTER 1,000-50,000 3RD TRIMESTER Performed By: #### P REGQNT #### [facility] [address] [address] [address] Reema Mireles [facility] 09-29 SARS-CoV-2 (COVID-19) RNA FRANKIE+probe Ql (Unsp spec) Not detected Normal NOT DETECTED [facility] Comment on above: Result Comment: This test is not yet approved or cleared by the [place] FDA. When there are no FDA-approved or cleared tests available, and other criteria are met, FDA can make tests available under an emergency access mechanism called an Emergency Use Authorization (EUA). The EUA for this test is supported by the [employer] of Health and Human Service's (HHS's) declaration [...] SARS-CoV-2. Performed By: #### C VDTB #### [facility] [address] [place], [place] [address] Dr. Reema Mireles Vital Signs Date Time Vital Sign Value Performing Clinician Facility 11-12-2023 14:15-050 Body weight 108.86 kg [employer] Work Phone: [facility] 11-12-2023 14:15-0500 Diastolic blood pressure 72 mm[Hg] [employer] Work Phone: [facility] 11-12-2023 14:15-0500 Systolic blood pressure 122 mm[Hg] Devan Tello DO Work Phone: [facility] 04-12-2022 21:04-0400 Diastolic blood pressure 84 mm[Hg] [facility] 04-12-2022 21:04-0400 Heart rate 82 /min [facility] 04-12-2022 21:04-0400 Respiratory rate 16 /min [facility] 04-12-2022 21:04-0400 SaO2% (BldA) [Mass fraction] 98 % [facility] 04-12-2022 21:04-0400 Systolic blood pressure 120 mm[Hg] [facility] 04-12-2022 20:32-0400 gluc 80 mg/dL [facility] Comment on above: Result Comment: not taken due to pt refu jimmie of any injection 04-12-2022 20:32-0400 gluc [facility] 04-12-2022 19:25-0400 Body temperature 99.32 [degF] [facility] 04-12-2022 19:25-0400 Diastolic blood pressure 84 mm[Hg] [facility] 04-12-2022 19:25-0400 Heart rate 90 /min [facility] 04-12-2022 19:25-0400 Respiratory rate 18 /min [facility] 04-12-2022 19:25-0400 SaO2% (BldA) [Mass fraction] 98 % [facility] 04-12-2022 19:25-0400 Systolic blood pressure 118 mm[Hg] [facility] 04-09-2022 12:20-0400 Body height 165.1 cm Deonna Back Other [facility] Other 04-09-2022 12:20-0400 Body mass index (BMI) [Ratio] 35.61 kg/m2 Deonna Nazanin Other [facility] Other 04-09-2022 12:20-0400 Body temperature 98.4 [degF] Deonna Nazanin Other [facility] Other 04-09-2022 12:20-0400 Body weight 97.07 kg Deonna Nazanin Other [facility] Other 04-09-2022 12:20-0400 Diastolic blood pressure 83 mm[Hg] Deonna Nazanin Other [facility] Other 04-09-2022 12:20-0400 Respiratory rate 18 /min Deonna Nazanin Other [facility] Other 04-09-2022 12:20-0400 SaO2% (BldA) [Mass fraction] 99 % Deonna Nazanin Other [facility] Other 04-09-2022 12:20-0400 Systolic blood pressure 135 mm[Hg] Deonna Nazanin Other [facility] Other 04-02-2022 19:00-0400 Body height 165.1 cm Deonna Nazanin Other [facility] Other 04-02-2022 19:00-0400 Body mass index (BMI) [Ratio] 35.71 kg/m2 Deonna Nazanin Other [facility] Other 04-02-2022 19:00-0400 Body temperature 98.1 [degF] Deonna Nazanin Other [facility] Other 04-02-2022 19:00-0400 Body weight 97.34 kg Deonna Back Other [facility] Other 04-02-2022 19:00-0400 Diastolic blood pressure 83 mm[Hg] Deonna Back Other [facility] Other 04-02-2022 19:00-0400 Respiratory rate 18 /min Deonna Back Other [facility] Other 04-02-2022 19:00-0400 SaO2% (BldA) [Mass fraction] 100 % Deonna Back Other [facility] Other 04-02-2022 19:00-0400 Systolic blood pressure 134 mm[Hg] Deonna Back Other [facility] Other Encounters Encounter Date Encounter Type Care [...] 04-12-2022 End: 04-12-2022 [facility] Start: 04-10-2022 End: 04-10-2022 ambulatory Deonna Back Other [facility] Other Start: 04-10-2022 Telephone encounter Deonna Back [facility] Start: 04-09-2022 End: 04-09-2022 ambulatory Deonna Back Other [facility] Other Start: 04-09-2022 Office outpatient vi sit 15 minutes Deonna Back [facility] Start: 04-09-2022 End: 04-09-[address] LUIS ANTONIO SUTTON Facility:[facility] Start: 04-02-2022 (URG) Urgent Care Visit Deonna pace [facility] Start: 04-02-2022 End: 04-02-2022 ambulatory Deonna Back Other [employer] Other Start: 10-25-2021 End: 10-25-[address] ADRYAN MARIE Facility:[facility] Start: 10-24-2021 Encounter for preprocedural laboratory examination DR DEVAN TELLO [facility] Start: 10-22-2021 End: 10-23-[address] ADRYAN MARIE Facility:[facility] Start: 10-22-2021 End: 10-23-2021 Encounter for preprocedural laboratory examination DR ADRYAN MARIE Facility:[facility] Start: 10-19-2021 Encounter for other preprocedural examination DR DEVAN TELLO [facility] Start: 10-17-2021 End: 10-18-[address] ADRYNA MARIE Facility:[facility] Start: 10-17-2021 End: 10-18-2021 Encounter [...] Routine [facility] [address] [place] [address] Cydney Leos PA [address] [place], [place] [id number] [facility] Start: 11-26-2023 End: 11-26-2023 Professional / ancillary services management 11/26/2023 10:30 AM EST Ancillary Procedure [facility] [address] [place] [address] [facility] Start: 11-12-2023 End: 11-12-2024 US for US OB SCAN FOR GROWTH Imaging Routine Excessive growth affecting management of in third trimester, single or unspecified fetus Expected: 11/12/2023 (Approximate), Expires: 11/12/2024 [facility] Work Phone: Comment on above: Expected: 11/12/2023 (Approximate), Expires: 11/12/2024 Start: 11-12-2023 End: 11-12-2023 Patient encounter procedure 11/12/2023 10:50 AM EST Routine [facility] [address] [facility] [place] [address] Devan Tello DO [address] [facility] [place] [address] [facility] Payers Date Payer Category Payer Unknown [facility] MEDICAID [id number] 2023-Present [address] [place] [address] [id number] 2023 Medicaid [id number] 2001 Unknown [id number] 2.16.840.1.109936.3.579.2. 593 2001 Unknown [id number] 2.16.840.1.770478.3.579.2. 593 2001 Unknown [id number] 2.16.840.1.964555.3.579.2. 593 2001 Unknown [id number] 2.16.840.1.484701.3.579.2. 593 2001 Unknown [id number] 2.16.840.1.506548.3.579.2. 593 2001 Unknown [id number] 2.16.840.1.217519.3.579.2. 593 2001 Unknown [id number] 2.16.840.1.906155.3.579.2. 593 2001 Unknown [id number] 2.16.840.1.643833.3.579.2. 593 2001 Unknown [id number] 2.16.840.1.518351.3.579.2. 593 2001 Unknown [id number] 2.16.840.1.820076.3.579.2. 593 2001 Unknown [id number] 2.16.840.1.454721.3.579.2. 593 2001 Unknown [id number] 2.16.840.1.633609.3.579.2. 1259 2001 Unknown [id number] 2.16.840.1.950160.3.579.2. 1259 2001 Unknown [id number] 2.16.840.1.299823.3.579.2. 1259 2001 Unknown [id number] 2.16.840.1.837115.3.579.2. 1259 2001 Unknown [id number] 2.16.840.1.521477.3.579.2. 1259 2001 Unknown [id number] 2.16.840.1.536198.3.579.2. 1259 2001 Unknown [id number] 2.16.840.1.731038.3.579.2. 1259 2001 Unknown [id number] 2.16.840.1.858057.3.579.2. 1259 2001 Unknown [id number] 2.16.840.1.860588.3.579.2. 1259 1958 [facility] [id number] 2.16.840.1.499078.19 Social History Date Type Detail Facility Unknown if ever smoked [facility] Other Sex Assigned At [facility] Other Tobacco smoking status No Smoking Status Entered [facility] Start: 06-20-2023 Tobacco smoking status NHIS Tobacco smoking consumption unknown [facility] Start: 10-15-2023 Alcohol intake Lifetime non-d hermes (finding) [facility] Start: 06-20-2023 Tobacco Comment Current smoker (frequency unknown) [facility] Start: 05-06-2023 [facility] Start: 2001 Sex Assigned At Not on file [facility] Goals Date Patient Goal Desired Activity /State Personal health goal Functional Status Date Assessment Result Facility 04-12-2022 Functional Status N/A [facility] History of Present illness Narrative 11-12-2023 Ciarra [...] Devan Tello DO documented in this encounter [facility] Discharge instructions 04-12-2022 Note Date [...] help with your condition: Managing pain Take uenz-eqm-mhctrqq and prescription medicines only as told by [...] 09/14/2006 Document Revised: 04/04/2019 Document Reviewed: 04/04/2019 [employer] Patient Education 2020 [employer] 04/12/2022 21:07:38 Vertigo Vertigo Vertigo is [...] if you feel dizzy. General instructions Take zend-kub-uqmbskr and prescription medicines only as told by [...] 06/24/2006 Document Revised: 08/08/2019 Document Reviewed: 08/08/2019 [employer] Patient Education 2020 [employer] Follow Up Care 04/12/2022 19:25:17 With:ADRYAN MARIE Address: [address] [place], [place] [id number] [facility] (1) When:04/15/2022 20:55:24 Comments:Return to the emergency room if her headache gets worse, vertigo becomes persistent or any new symptoms [facility] Evaluation note 04-09-2022 Note Date & [...] She was prescribed Zofran with no improvement. [facility] Other Evaluation note 04-02-2022 Note Date & [...] 3 days. No swimming for a week [facility] Other Clinical Note 10-25-2021 Note Date & Type Note Facility 10-25-2021 Note OPERATIVE NOTE PROCEDURE: Diagnostic laparoscopy. PREOPERATIVE DIAGNOSIS: Pelvic pain, dyspareunia dysmenorrhea. POSTOPERATIVE DIAGNOSIS: Pelvic pain, dyspareunia dysmenorrhea. ANESTHESIA: General. SURGEON: Devan Tello D.O. BRIDGE RIGGER: JAE Worley URINE OUTPUT: Yellow and clear. [...] taken to Recovery Room in stable condition. [facility] Signed and Approved by: DR DEVAN TELLO . 11/01/2021 17:31:00 [facility] Evaluation + Plan note Note Date & Type Note Facility Evaluation + Plan note No data available for this section [facility] Evaluation note Note Date & Type Note Facility Evaluation note No Information [facility] [employer] Other Evaluation note Note Date & Type [...] endometriosis Hospitalization History RSV as a baby [facility] Other Progress note Note Date & Type Note Facility Progress note No data available for this section [facility] Summary Purpose Family History No Family History Records FoundNo Family History Records FoundNo Family History Records Found Advance Directives No Advanced Directives Records FoundNo Advanced Directives Records FoundNo Advanced Directives Records Found Additional Source Comments REASON FOR VISIT (unrecogniz ed section and content) Reason Comments Routine Visit Care Team (unrecognized sect ion and content) 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 Relationship Specialty Start Date End Date Adryan Marie MD [address] [place] [address] PCP - General Family Medicine 06/19/23 Boat 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 [facility]. provides no warranty or guarantee of the accuracy or completeness of information in this document.
[2024-01-20 10:17] VITALS: BP 135/74; PULSE 100
== END 2024-01-20 11:03 | disposition home or self-care (01) ==
LOC: US 07:04 → FBC 09:57
PROVIDERS: PCP Family Medicine; Visit Provider Obstetrics & Gynecology
DX: O36.63X0 Maternal care for excessive fetal growth, third trimester, not applicable or unspecified (principal); Z3A.39 39 weeks gestation of pregnancy
CPT/HCPCS: 76818

== ENCOUNTER 2024-01-26 05:22 | Inpatient (IN) | payer OTHER, SELFPAY ==
[2024-01-26] VITALS (62 sets, daily range): BP systolic 72–138; BP diastolic 32–87; PULSE 84–126; TEMP 36.4–37.1; O2SAT 94–97
--- OUTSIDE RECORDS SUMMARY | 2024-01-26 05:26 | XMS_ITS | CCD ---
[facility] Providers Care Meat Specialist Name Role Phone Deonna Back Unavailable DEFJAILENE, ADRYAN Primary Care Physician [phone] LESLEY, DR LUIS ANTONIO Jorge Consulting Unavailable [...] TELLO Attending Unavailable CYDNEY LEOS Attending Unavailable OMER, DEVAN Attending Unavailable CYDNEY LEOS Attending Unavailable OMER, DEVAN Attending Unavailable DEVAN TELLO Attending Unavailable Allergies Allergy Classification Reported Allergen(s) Allergy Type Date of Onset Reaction(s) Facility (3 sources) Sulfacetamide Drug Allergy rash Anvato Other (1 source) Sulfonamides (Antibiotic); Translations: [sulfa drugs] Drug allergy Hyperpyrexia (finding) [facility] (1 source) Sulfonamides (Antibiotic) Drug allergy (disorder) 07-26-20 14 [facility] (3 sources) Sulfonamides (Antibiotic) Drug Intolerance 06-17-20 [...] BY MOUTH EVERY MORNING 0 10/06/2023 Active WJ-Lbm-YE-[place]-3 ( Gummies/DHA & FA) 0.4-32.5 MG chewable tablet (3 sources) Start: 06-19-2023 End: 06-18-2024 LZ-Dax-YE-[place]-3 ( Gummies/DHA & FA) 0.4-32.5 MG chewable tablet Indications: Missed menses Chew 32.5 mg in the morning. 30 tablet 11 06/19/2023 06/18/2024 Active Completed/Discontinued Medications Medication Drug Class(es) Dates Sig (Normalized) Sig (Original) [id number] 200 actuat albuterol 0.09 mg/actuat metered dose [...] / neomycin 3.5 mg/ml / polymyxin b 06171 unt/ml otic suspension (3 sources) Aminoglycoside Antibacterial, Polymyxin-class Antibacterial, Corticosteroid Start: 04-02-2022 Neomycin-Polymyx in-HC [id number] 3 drops left ear Three times a [...] UA Negative Negative - 4(70) +++ mg/dL [facility] Blood, UA Negative Negative - 50 Cedric/mcL [facility] Clarity, UA Clear [facility] re Color, UA Yellow [facility], [facility] Negative Negative - 1999(110) ++++ mg/dL [facility] Interpretation and review of laboratory results Normal [facility] Ketones, UA Negative Negative - 160(16) ++++ mg/dL [facility] Leukocytes, UA Negative Negative - 500+++ Alessandro/mcL [facility] Nitrite, UA Negative Negative - Positive [facility] pH, UA 6.0 5 - 9 [facility] e Protein, UA Negative Negative - 2000(20) ++++ mg/dL [facility] Spec Grav, UA 1.020 1 - 1.03 [facility] Urobilinogen, UA 0.2 0.2 - 12 mg/dL [facility] Healthcar e ALL CBC WITH AUTO DIFFon BASOPHILS ABSOLUTE AUTO 0.0 [facility] Basophils/100 WBC (Bld) 0.3 % 0.2 - 2.0 % [facility] Eosinophils/100 WBC (Bld) 1.0 % 0.9 - 7.0 % [facility] Erythrocyte distribution width (RBC) [Ratio] 12.5 % 11.0 - 15.0 % [facility] Hematocrit (Bld) [Volume fraction] 35.1 % Low 36.0 - 48.0 % [facility] Hem[facility] (Bld) [Mass/Vol] 11.7 g/dL Low 12.0 - 16.0 g/dL [facility] IMMATURE GRANULOCYTES ABS AUTO 0.08 High [facility] Immature granulocytes/100 WBC (Bld) 0.6 % High 0.0 - 0.5 % [facility] Interpretation and review of laboratory results [facility] LYMPHOCYTES ABSOLUTE AUTO 1.6 [facility] Lymphocytes/100 WBC (Bld) 11.9 % Low 20.5 - 60.0 % [facility] MCH (RBC) [Entitic mass] 30.7 pg 26.7 - 34.0 pg [facility] MCHC (RBC) [Mass/Vol] 33.3 g/dL 29.9 - 35.2 g/dL [facility] MCV (RBC) [Entitic vol] 92.1 fL 81.0 - 99.0 fL [facility] MONOCYTES ABSOLUTE AUTO 0.8 [facility] Monocytes/100 WBC (Bld) 5.5 % 1.7 - 12.0 % [facility] NEUTROPHILS ABSOLUTE AUTO 11.1 High [facility] Neutrophils/100 WBC (Bld) 80.7 % High 43.0 - 75.0 % [facility] Platelet mean volume (Bld) [Entitic vol] 10.6 fL 9.5 - 13.5 fL [facility] Healthc are [facility] EO # 0.1 [facility] PLT 292 [facility] RBC 3.81 Low [facility] Healthcar e [facility] WBC 13.8 High [facility] Healthcar e [facility] NOM Health[facility] e CBC AUTO DIFFon 09-14-2022 BASO # 0.0 103/ul Normal 0.0-0.1 [facility] Comment on above: Performed By: #### B GURPREET, TSH #### [facility] [address] [place] [address] Dr. Reema Mireles Basophils/100 WBC (Bld) 0.6 % Normal 0.2-2.0 [facility] Comment on above: Performed By: #### B GURPREET, TSH #### [facility] [address] [place] [address] Dr. Reema Mierles EO # 0.0 103/ul Normal 0.0-0.7 [facility] Comment on above: Performed By: #### B GURPREET, TSH #### [facility] [address] [place] [address] Dr. Reema Mireles Eosinophils/100 WBC (Bld) 0.6 % Critically low 0.9-7.0 [facility] Comment on above: Performed By: #### B GURPREET, TSH #### [facility] [address] [place] [address] Dr. Reema Mireles Erythrocyte distribution width (RBC) [Ratio] 11.9 % Normal 11.0-15.0 [facility] Comment on above: Performed By: #### B GURPREET, TSH #### [facility] [address] [place] [address] Dr. Reema Mireles Hematocrit (Bld) [Volume fraction] 37.8 % Normal 36.0-48.0 [facility] Comment on above: Performed By: #### B GURPREET, TSH #### [facility] [address] [place] [address] Dr. Reema Mireles Hemoglobin (Bld) [Mass/Vol] 13.5 g/dL Normal 12.0-16.0 [facility] Comment on above: Performed By: #### B GURPREET, TSH #### [facility] [address] [place] [address] Dr. Reema Mireles IG # 0.01 10e3/ul Normal 0.00-0.03 [facility] Comment on above: Performed By: #### B GURPREET, TSH #### [facility] [address] [place] [address] Dr. Reema Mireles IG % 0.2 % Normal 0.0-0.5 [facility] Comment on above: Performed By: #### B GURPREET, TSH #### [facility] [address] [place] [address] Dr. Reema Mireles LYMPH # 1.6 103/ul Normal 1.2-3.8 [facility] Comment on above: Performed By: #### B GURPREET, TSH #### [facility] [address] [place] [address] Dr. Reema Mireles Lymphocytes/100 WBC (Bld) 25.5 % Normal 20.5-60.0 [facility] Comment on above: Performed By: #### B MP, TSH #### [facility] [address] [place] [address] Dr. Reema Mireles MANUAL DIFF REQ NO Normal [facility] Comment on above: Performed By: #### B MP, TSH #### [facility] [address] [place] [address] Dr. Reema Mireles MCH (RBC) [Entitic mass] 30.9 pg Normal 26.7-34.0 [facility] Comment on above: Performed By: #### B MP, TSH #### [facility] [address] [place] [address] Dr. Reema Mireles MCHC (RBC) [Mass/Vol] 35.7 g/dL Critically high 29.9-35.2 [facility] Comment on above: Performed By: #### B MP, TSH #### [facility] [address] [place] [address] Dr. Reema Mireles MCV (RBC) [Entitic vol] 86.5 fL Normal 81.0-99.0 [facility] Comment on above: Performed By: #### B MP, TSH #### [facility] [address] [place] [address] Dr. Reema Mireles MONO # 0.5 103/ul Normal 0.3-0.8 [facility] Comment on above: Performed By: #### B MP, TSH #### [facility] [address] [place] [address] Dr. Reema Mireles Monocytes/100 WBC (Bld) 8.5 % Normal 1.7-12.0 [facility] Comment on above: Performed By: #### B MP, TSH #### [facility] [address] [place] [address] Dr. Reema Mireles NEUT # 4.1 103/ul Normal 1.4-6.5 [facility] Comment on above: Performed By: #### B MP, TSH #### [facility] [address] [place] [address] Dr. Reema Mireles Neutrophils/100 WBC (Bld) 64.6 % Normal 43.0-75.0 [facility] Comment on above: Performed By: #### B MP, TSH #### [facility] [address] [place] [address] Dr. Reema Mireles Platelet mean volume (Bld) [Entitic vol] 9.9 fL Normal 9.5-13.5 [facility] Comment on above: Performed By: #### B MP, TSH #### [facility] [address] [place] [address] Dr. Reema Mireles PLT 403 103/ul Normal 150-450 [facility] Comment on above: Performed By: #### B MP, TSH #### [facility] [address] [place] [address] Dr. Reema Mireles RBC 4.37 106/ul Normal 4.20-5.40 [facility] Comment on above: Performed By: #### B MP, TSH #### [facility] [address] [place] [address] Dr. Reema Mireles WBC 6.3 103/ul Normal 4.0-11.0 [facility] Comment on above: Performed By: #### B MP, TSH #### [facility] [address] [place] [address] Dr. Reema Mireles PROF 14(COMP METB)on 022 Albumin [Mass/Vol] 4.3 g/dL Normal 3.4-5.0 [facility] Comment on above: Performed By: #### B GURPREET, TSH #### [facility] [address] [place] [address] Dr. Reema Mireles Albumin/Globulin [Mass ratio] 1.2 {ratio} Normal [facility] Comment on above: Performed By: #### B MP, TSH #### [facility] [address] [place] [address] Dr. Reema Mireles ALP [Catalytic activity/Vol] 79 U/L Normal 46-116 [facility] Comment on above: Performed By: #### B MP, TSH #### [facility] [address] [place] [address] Dr. Reema Mireles ALT [Catalytic activity/Vol] 31 U/L Normal 14-59 [facility] Comment on above: Performed By: #### B MP, TSH #### [facility] [address] [address] [address] Reema Mireles Anion gap [Moles/Vol] 12.1 mmol/L Normal [facility] Comment on above: Performed By: #### B MP, TSH #### [facility] [address] [address] [address] Reema Mireles AST [Catalytic activity/Vol] 17 U/L Normal 15-37 [facility] Comment on above: Performed By: #### B MP, TSH #### [facility] [address] [address] [address] Reema Mireles Bilirubin [Mass/Vol] 0.4 mg/dL Normal 0.2-1.0 [facility] Comment on above: Performed By: #### B MP, TSH #### [facility] [address] [place] [address] Dr. Reema Mireles Calcium [Mass/Vol] 8.9 mg/dL Normal 8.5-10.1 [facility] Comment on above: Performed By: #### B MP, TSH #### [facility] [address] [place] [address] Dr. Reema Mireles Chloride [Moles/Vol] 98 mmol/L Normal 98-107 [facility] Comment on above: Performed By: #### B MP, TSH #### [facility] [address] [place] [address] Dr. Reema Mireles CO2 [Moles/Vol] 27.0 mmol/L Normal 21.0-32.0 [facility] Comment on above: Performed By: #### B MP, TSH #### [facility] [address] [place] [address] Dr. Reema Mireles Creatinine [Mass/Vol] 0.65 mg/dL Normal 0.55-1.02 [facility] Comment on above: Performed By: #### B MP, TSH #### [facility] [address] [address] [address] Reema Mireles EGFR-AF COLOMBIAN >60 Normal >=60 [facility] Comment on above: Performed By: #### B MP, TSH #### [facility] [address] [address] [address] Reema Mireles EGFR-NON AF COLOMBIAN >60 Normal >=60 [facility] Comment on above: Performed By: #### B MP, TSH #### [facility] [address] [address] [address] Reema Mireles Globulin (S) [Mass/Vol] 3.5 g/dL Normal [facility] Comment on above: Performed By: #### B MP, TSH #### [facility] [address] [address] [address] Reema Mireles Glucose [Mass/Vol] 106 mg/dL Normal 74-106 [facility] Comment on above: Performed By: #### B GURPREET, TSH #### [facility] [address] [place] [address] Dr. Reema Mireles Potassium [Moles/Vol] 3.1 mmol/L Critically low 3.5-5.1 [facility] Comment on above: Performed By: #### B GURPREET, TSH #### [facility] [address] [address] [address] Reema Mireles Protein [Mass/Vol] 7.8 g/dL Normal 6.4-8.2 [facility] Comment on above: Performed By: #### B GURPREET, TSH #### [facility] [address] [address] [address] Reema Mireles Sodium [Moles/Vol] 134 mmol/L Critically low 136-145 [facility] Comment on above: Performed By: #### B MP, TSH #### [facility] [address] [address] [address] Reema Mireles Urea nitrogen [Mass/Vol] 6.0 mg/dL Critically low 7.0-18.0 [facility] Comment on above: Performed By: #### B MP, TSH #### [facility] [address] [address] [address] Reema Mireles Urea nitrogen/Creatinine [Mass ratio] 9.2 mg/mg Normal [facility] Comment on above: Performed By: #### B GURPREET, TSH #### [facility] [address] [place] [address] Dr. Reema Mireles ACETONE SERUMon 08-11-2022 ACETONE Negative Normal NEGATIVE [facility] Comment on above: Performed By: #### B MP, TSH #### [facility] [address] [place] [address] Dr. Reema Mireles CBC AUTO DIFFon 08-11-2022 BASO # 0.1 103/ul Normal 0.0-0.1 [facility] Comment on above: Performed By: #### B MP, TSH #### [facility] [address] [place] [address] Dr. Reema Mireles Basophils/100 WBC (Bld) 0.5 % Normal 0.2-2.0 [facility] Comment on above: Performed By: #### B MP, TSH #### [facility] [address] [place] [address] Dr. Reema Mireles EO # 0.1 103/ul Normal 0.0-0.7 [facility] Comment on above: Performed By: #### B MP, TSH #### [facility] [address] [place] [address] Dr. Reema Mireles Eosinophils/100 WBC (Bld) 0.7 % Critically low 0.9-7.0 [facility] Comment on above: Performed By: #### B MP, TSH #### [facility] [address] [place] [address] Dr. Reema Mireles Erythrocyte distribution width (RBC) [Ratio] 11.7 % Normal 11.0-15.0 [facility] Comment on above: Performed By: #### B MP, TSH #### [facility] [address] [place] [address] Dr. Reema Mireles Hematocrit (Bld) [Volume fraction] 37.6 % Normal 36.0-48.0 [facility] Comment on above: Performed By: #### B MP, TSH #### [facility] [address] [place] [address] Dr. Reema Mireles Hemoglobin (Bld) [Mass/Vol] 13.1 g/dL Normal 12.0-16.0 [facility] Comment on above: Performed By: #### B MP, TSH #### [facility] [address] [address] [address] Reema Mireles IG # 0.02 10e3/ul Normal 0.00-0.03 [facility] Comment on above: Performed By: #### B MP, TSH #### [facility] [address] [address] [address] Reema Mireles IG % 0.2 % Normal 0.0-0.5 [facility] Comment on above: Performed By: #### B MP, TSH #### [facility] [address] [place] [address] Dr. Reema Mireles LYMPH # 2.7 103/ul Normal 1.2-3.8 [facility] Comment on above: Performed By: #### B MP, TSH #### [facility] [address] [place] [address] Dr. Reema Mireles Lymphocytes/100 WBC (Bld) 28.5 % Normal 20.5-60.0 [facility] Comment on above: Performed By: #### B MP, TSH #### [facility] [address] [place] [address] Dr. Reema Mireles MANUAL DIFF REQ NO Normal [facility] Comment on above: Performed By: #### B MP, TSH #### [facility] [address] [place] [address] Dr. Reema Mireles MCH (RBC) [Entitic mass] 30.3 pg Normal 26.7-34.0 [facility] Comment on above: Performed By: #### B MP, TSH #### [facility] [address] [place] [address] Dr. Reema Mireles MCHC (RBC) [Mass/Vol] 34.8 g/dL Normal 29.9-35.2 [facility] Comment on above: Performed By: #### B MP, TSH #### [facility] [address] [place] [address] Dr. Reema Mireles MCV (RBC) [Entitic vol] 87.0 fL Normal 81.0-99.0 [facility] Comment on above: Performed By: #### B MP, TSH #### [facility] [address] [place] [address] Dr. Reema Mireles MONO # 0.8 103/ul Normal 0.3-0.8 [facility] Comment on above: Performed By: #### B MP, TSH #### [facility] [address] [place] [address] Dr. Reema Mireles Monocytes/100 WBC (Bld) 8.2 % Normal 1.7-12.0 [facility] Comment on above: Performed By: #### B MP, TSH #### [facility] [address] [place] [address] Dr. Reema Mireles NEUT # 5.9 103/ul Normal 1.4-6.5 [facility] Comment on above: Performed By: #### B MP, TSH #### [facility] [address] [place] [address] Dr. Reema Mireles Neutrophils/100 WBC (Bld) 61.9 % Normal 43.0-75.0 [facility] Comment on above: Performed By: #### B MP, TSH #### [facility] [address] [place] [address] Dr. Reema Mireles Platelet mean volume (Bld) [Entitic vol] 10.2 fL Normal 9.5-13.5 [facility] Comment on above: Performed By: #### B MP, TSH #### [facility] [address] [place] [address] Dr. Reema Mireles PLT 382 103/ul Normal 150-450 [facility] Comment on above: Performed By: #### B MP, TSH #### [facility] [address] [place] [address] Dr. Reema Mireles RBC 4.32 106/ul Normal 4.20-5.40 [facility] Comment on above: Performed By: #### B MP, TSH #### [facility] [address] [place] [address] Dr. Reema Mireles WBC 9.6 103/ul Normal 4.0-11.0 [facility] Comment on above: Performed By: #### B MP, TSH #### [facility] [address] [place] [address] Dr. Reema Mireles CRPon 08-11-2022 CRP [Mass/Vol] mg/L Normal <=1.0 [facility] Comment on above: Performed By: #### B MP, TSH #### [facility] [address] [place] [address] Dr. Reema Mireles ER URINE PROFILEon Bilirubin Ql (U) Negative Normal NEGATIVE [facility] Comment on above: Performed By: #### B MP, TSH #### [facility] [address] [place] [address] Dr. Reema Mireles Clarity (U) CLEAR Normal CLEAR [facility] Comment on above: Performed By: #### B MP, TSH #### [facility] [address] [place] [address] Dr. Reema Mireles Color (U) LT. YELLOW Normal YELLOW [facility] Comment on above: Performed By: #### B MP, TSH #### [facility] [address] [place] [address] Dr. Reema RICHARDSONJohana A micrscopic examination will be performed if indicated. Normal [facility] Comment on above: Performed By: #### B MP, TSH #### [facility] [address] [place] [address] Dr. Reema Mireles Glucose Ql (U) Negative Normal NEGATIVE [facility] Comment on above: Performed By: #### B MP, TSH #### [facility] [address] [place] [address] Dr. Reema Mireles Hemoglobin Ql (U) Negative Normal NEGATIVE [facility] Comment on above: Performed By: #### B MP, TSH #### [facility] [address] [place] [address] Dr. Reema Mireles Ketones Ql (U) Negative Normal NEGATIVE [facility] Comment on above: Performed By: #### B MP, TSH #### [facility] [address] [place] [address] Dr. Reema Mireles LEUKOCYTES Negative Normal NEGATIVE [facility] Comment on above: Performed By: #### B MP, TSH #### [facility] [address] [place] [address] Dr. Reema Mireles Nitrite Ql (U) Negative Normal NEGATIVE [facility] Comment on above: Performed By: #### B MP, TSH #### [facility] [address] [address] [address] Reema Mireles pH (U) 5.5 [pH] Normal 5-9 [facility] Comment on above: Performed By: #### B MP, TSH #### [facility] [address] [place] [address] Dr. Reema Mireles SPEC GRAVITY <=1.005 Abnormal 1.005-<=1.025 [facility] Comment on above: Performed By: #### B MP, TSH #### [facility] [address] [place] [address] Dr. Reema Mireles UA PROTEIN Negative Normal NEGATIVE/ TRACE [facility] Comment on above: Performed By: #### B MP, TSH #### [facility] [address] [place] [address] Dr. Reema Mireles UR MICRO IND NOT INDICATED Normal [facility] Comment on above: Performed By: #### B MP, TSH #### [facility] [address] [place] [address] Dr. Reema Mireles Urobilinogen Qn (U) 0.2 {Renny'U}/dL Normal 0.2 - 1. 0 [facility] Comment on above: Performed By: #### B MP, TSH #### [facility] [address] [place] [address] Dr. Reema Mireles LIPASEon 08-11-2022 Lipase [Catalytic activity/Vol] 71.0 U/L Critically low 73.0-393.0 [facility] Comment on above: Performed By: #### B MP, TSH #### [facility] [address] [place] [address] Dr. Reema Mireles URon 08-11-2022 , QUAL Negative Normal NEGATIVE [facility] Comment on above: Performed By: #### C VDTBH #### [facility] [address] [address] [address] Reema Mireles PROF 14(COMP METB)on 022 Albumin [Mass/Vol] 4.3 g/dL Normal 3.4-5.0 [facility] Comment on above: Performed By: #### B MP, TSH #### [facility] [address] [address] [address] Reema Mireles Albumin/Globulin [Mass ratio] 1.2 {ratio} Normal [facility] Comment on above: Performed By: #### B GURPREET, TSH #### [facility] [address] [place] [address] Dr. Reema Mireles ALP [Catalytic activity/Vol] 70 U/L Normal 46-116 [facility] Comment on above: Performed By: #### B GURPREET, TSH #### [facility] [address] [address] [address] Reema Mireles ALT [Catalytic activity/Vol] 16 U/L Normal 14-59 [facility] Comment on above: Performed By: #### B GURPREET, TSH #### [facility] [address] [address] [address] Reema Mireles Anion gap [Moles/Vol] 10.5 mmol/L Normal [facility] Comment on above: Performed By: #### B GURPREET, TSH #### [facility] [address] [address] [address] Reema Mireles AST [Catalytic activity/Vol] 8 U/L Critically low 15-37 [facility] Comment on above: Performed By: #### B MP, TSH #### [facility] [address] [address] [address] Reema Mireles Bilirubin [Mass/Vol] 0.3 mg/dL Normal 0.2-1.0 [facility] Comment on above: Performed By: #### B MP, TSH #### [facility] [address] [address] [address] Reema Mireles Calcium [Mass/Vol] 9.0 mg/dL Normal 8.5-10.1 [facility] Comment on above: Performed By: #### B MP, TSH #### [facility] [address] [place] [address] Dr. Reema Mireles Chloride [Moles/Vol] 104 mmol/L Normal 98-107 [facility] Comment on above: Performed By: #### B MP, TSH #### [facility] [address] [place] [address] Dr. Reema Mireles CO2 [Moles/Vol] 26.5 mmol/L Normal 21.0-32.0 [facility] Comment on above: Performed By: #### B MP, TSH #### [facility] [address] [place] [address] Dr. Reema Mireles Creatinine [Mass/Vol] 0.79 mg/dL Normal 0.55-1.02 [facility] Comment on above: Performed By: #### B MP, TSH #### [facility] [address] [place] [address] Dr. Reema Mireles EGFR-AF COLOMBIAN >60 Normal >=60 [facility] Comment on above: Performed By: #### B MP, TSH #### [facility] [address] [place] [address] Dr. Reema Mireles EGFR-NON AF COLOMBIAN >60 Normal >=60 [facility] Comment on above: Performed By: #### B MP, TSH #### [facility] [address] [place] [address] Dr. Reema Mireles Globulin (S) [Mass/Vol] 3.5 g/dL Normal [facility] Comment on above: Performed By: #### B MP, TSH #### [facility] [address] [place] [address] Dr. Reema Mireles Glucose [Mass/Vol] 106 mg/dL Normal 74-106 [facility] Comment on above: Performed By: #### B MP, TSH #### [facility] [address] [place] [address] Dr. Reema Mireles Potassium [Moles/Vol] 3.0 mmol/L Critically low 3.5-5.1 [facility] Comment on above: Performed By: #### B MP, TSH #### [facility] [address] [place] [address] Dr. Reema Mireles Protein [Mass/Vol] 7.8 g/dL Normal 6.4-8.2 [facility] Comment on above: Performed By: #### B MP, TSH #### [facility] [address] [place] [address] Dr. Reema Mireles Sodium [Moles/Vol] 138 mmol/L Normal 136-145 [facility] Comment on above: Performed By: #### B MP, TSH #### [facility] [address] [place] [address] Dr. Reema Mireles Urea nitrogen [Mass/Vol] 8.0 mg/dL Normal 7.0-18.0 [facility] Comment on above: Performed By: #### B MP, TSH #### [facility] [address] [place] [address] Dr. Reema Mireles Urea nitrogen/Creatinine [Mass ratio] 10.1 mg/mg Normal [facility] Comment on above: Performed By: #### B MP, TSH #### [facility] [address] [place] [address] Dr. Reema Mireles PROTIMEon 08-11-2022 INR Coag (PPP) [Relative time] 1.00 {INR} Normal [facility] Comment on above: Performed By: #### P T, PTT #### [facility] [address] [place] [address] Dr. Reema Mireles INR GUIDELINES SEE BELOW Normal [facility] Comment on above: Result Comment: FELICIANO RED INR: 2.0 - 3.0 CONDITIONS NOT LISTED BELOW 2.5 - 3.5 FOR PROSTHETIC HEART VALVE REPLACEMENT 2.5 - 3.5 RECURRENT THROMBOSIS Performed By: #### P T, PTT #### [facility] [address] [place] [address] Dr. Reema Mireles PT Coag (PPP) [Time] 10.8 s Normal 9.0-11.6 [facility] Comment on above: Performed By: #### P T, PTT #### [facility] [address] [place] [address] Dr. Reema Mireles PTTon 08-11-2022 aPTT Coag (Bld) [Time] 30.8 s Normal 22.3-36.2 [facility] Comment on above: Performed By: #### P T, PTT #### [facility] [address] [place] [address] Dr. Reema Mireles [facility] SED [facility]ATE 10 mm/hr Normal <=20 [facility] Comment on above: Performed By: #### B MP, TSH #### [facility] [address] [place] [address] Dr. Reema Mireles TSHon 08-11-2022 TSH 3.313 uIU/mL Normal 0.358-3.740 [facility] Comment on above: Performed By: #### B MP, TSH #### [facility] [address] [place] [address] Dr. Reema Mireles Discharge Instructionson Discharge Instructions [id number] #1.00CD:127 Normal [facility] Comment on above: Other Comment: wrong patient STOOL CULTUREon 04-20-2022 Campylobacter Culture Final report Normal [facility] Comment on above: Performed By: #### B MP, TSH #### [facility] [address] [place] [address] Dr. Reema Mireles E coli Shiga Toxin EIA Negative Normal Negative [facility] Comment on above: Performed By: #### B MP, TSH #### [facility] [address] [place] [address] Dr. Reema Mireles Result 1 Comment Normal [facility] Comment on above: Result Comment: No S almonella or Shigella recovered. Performed By: #### B MP, TSH #### [facility] [address] [place] [address] Dr. Reema Mireles Result Comment: No C ampylobacter species isolated. Salmonella/Shigella Screen Final report Normal [facility] Comment on above: Performed By: #### B MP, TSH #### [facility] [address] [place] [address] Dr. Reema Mireles Coding Summary.on 04-14-2022 Coding Summary. CD:[id number] Gh0bWw+PGhlYWQ+PE1FV HXaE61qqGPycH8UX4qRM U9TNZNGDGYCKB6POY3yh CL2RUrwE0BozmBi AsdxxEXqHZ95AHm3ITA8 rNqlNHivqC6zhRPqM0n0 LrTlKO32dN42RYltJURm VrO0LcOwkefukDMu B7rxPzPrfJKkAfg+PHRh YmxlIHdpZHRoPScxMDAl RiCisLnyIE9vDy5eVIGa LWNvbGxhcHNlOiBj k3xgDCMxZYkvJH5wyOoa U4PubHA7NLMqt7t4Hg06 dHI+BAWeHPX6vUznTZdu e471JwQlv8nrYYX8 rIWuULllOYU9X50ri6X2 ZWByPBYvFWW0zQK9eZ9z cPhcdtzbT3JxdISfOlH1 HTO7zMIctZ6coLxn mzdtaA3sSli+L47QOZ6A GFBICU9ZXzx2P0XyNrun dHI+HS31LYWlBD93qMKw cNTun9gsoWj9LwUm TABnKZA4nMhwUXkgv1Hm IUEcM31coXEak9K8DLGd sHajrFWwLfBhiRE3tN2r DSduegfec5inpixi Imbjj9kcla39yA09Q00c LGkpSEGzECT1CQPqJRXt tDczxk4elX0tIw7+IDxj t4xjf0dvoVy5NlLi UCStizCqvCypTDB3f9Ka Fz71G7GbjGvnw5OgFiy2 aw57oNYab2D4rLO3DJgk YTOhhE9fTWhmHnX6 VTDsXvLviM13rCXpUPvn Lq4qzRhjeGtaZC3xMNOz smxoZKCueU6uKSVbjQWs jVaxPU1xKKNaqcvq r034CkEfJBT4FWVczRCe Z1XtdW9xImLzNQIiIHAw D7JwyDOmKZfqJ528MDps JsG7FBRufbNrH3Ui OXUixJtkKjQ3q1T8Fh8X z6VlybbqCQH9CZrnSDX2 UrF3BaPgVuW3R1MpGqf7 DOHabTwdBP3oZ4Dl RHOpxjehmfejsOX6HCAe ZBFenO97iVSmXMgcEk1d c5O9b278QQJmBUClwP81 Oe4kzVqpLQZeaTWO rG4vkxeai3fdlgecQjNe LMRxINy3DTt4NVEhmVug HzKvIAJ9OiE3QTD1pLVf yT4vfCknzqfudU1o Oyc+J19chP8aLAH6NNP4 qysyRBFcpjYeHI07WW00 O2LgMqnneRMraRC+PGRp dbDeuTriDH0yBxWc d8ute9AaUXqpK5AmPRDh LCioJta9GKQhMKT1hES6 gW8eDNTpGZidj3O4nZR6 P0FekmHkrt5xf5qa TVPwGLlhQ42mpLPkb8E2 IXHkxCE5QMDlpWuyRcYj tU82Keh+VYLfdHale9Gh Pivcq5kue7fdnHb1 IjMwJSIgdmFsaWduPSJ0 f9TbOc09E35cIPvxLEDq GWVbEWVyXPGlyNvrnw0g lB8hDo2+PGNvbCB3 rIY8eN5eWHRiWfN4IIzt U537BgDlcAVpOjfgw3zf d2bfwQz1FpGiAAVhwsEd dWkeBCW3s8VtHh04 O56vVNuhTSAgNLIxEASf ODYgwQeird7xcO7lGb9+ WI4jv6mdfu86iK36cUK+ ZKVbBDA1fExeIIzn JRHgrP7vVVerMlK1WBNf ZySqfO71zRDsFBbxMu2p wYhmxAjfPF3qHERcnqhk o911UaJwe9kjNDRf lPSnDOcxKDJ5P59hi8E4 FFObHSFgCVE5lYN5dI7l bGlnbjogbGVmdDsgdmVy sQtiOVriCSsdD482 IHRvcDsnPlBhdGllbnQg LgSgOMr2C0BlInz2JRGq jOxiHQ8ljSVnERjtWy1q dMudfVbtIL7lAWWu vrdvx916CgIll3tmHLXn pBQiUHymANK3M34ko7F5 JCKkNLWpNCM3tET9sT4q bGlnbjogbGVmdDsg mqYtgJgrNCnbUCggP616 IHRvcDsnPkJpcnRoIERh xOZ6LP17CR10uCJza7Y9 tCT4B8BbXOVphmia mcnajLR6DKPfCNTikV48 Pk4zlOveZz5iRCVgRAQ1 UMHvqBXoL5ZyiI3kQpIs UDWdVTGoC8BkzFIj QGyfD175TYouElE8TJCw hjVgJ1JyOFEwsFdlJqY0 b0Z4Gu3KK2L1FP69UO96 lWZci0R2gUU7K1Ii WDUwavaqzaaguPF2HZJn CAKwpS62Dd5fqNxwTl9d JAQaAVC2NCJkxLSpF8Yj eG1mWhDjDZPzHFBf Q1VauRSqOHueT638UZpc WnT5LCStqpYsK4HxUWUm wSjzFdX5d6T6Db9WRPi2 FF55DP62bJAwq3D7 pPC6C6CdTTTeygmmzqjw oYO2ASDvMBZxwS79Mx7x wSvxSa6uOQXtEVN3ZRYa wHQuS0NslP8bIxSf XXUzFCZoC3ResRBtCOzm F805VDyqMjX2FTMmcgFu F3AmRRCodVaaVzF5s3O0 Pr3MWQNxBL77EJW3 pHL0ZI21EK95O9KeNnfo dGFibGU+PHRhYmxlIHdp ZHRoPScxMDAlJyBzdHls CB6hHu4iROOyVWBh xDnmcADrPdOwl8xcNHTt PCzoGB8ueEusJ5BmgHO5 AJAbi4e6Mq32C51wJ2Xv dXA+OODyyFZ9uTQ1 mS1eUtLmYkF9YZtaV468 XqHlyTDsEjnlu3bym1mp gMu7QiC7MMBuhjOnyLmd RRA2h4HoJn68Z56l IHdpZHRoPSIxNSUiIHZh dDdvor4qeC6jIc4+PGNv kHR2oIW2dH2vQmRwJaX5 CEzkB681RsYlrPXx Dxvhx9zzh3vowJa1PaXs NLQxmaXdwCwmBVB0r4Rb Zw61M5SjlWarq7BaZfc0 wc35uJYqw2R7fGT1 D0CqPOWwugoawRBvyEgv GA7lSJAhpuyuJOVheG0w GCNkT9c1IhRpOxG5YUnl V7JeirK0TGBzfQUc FKczWIF0R64ax4A4DUJn NRKcRWZ3uFQ6oC6veQwf bjogbGVmdDsgdmVydGlj AFpiVYbhB990ACKk nMthPINnoS9jOHPxdSVb bAsyZH6oAVBnscsrAxuR UCRJM68HR4mGAMCTACPB DRE4I4IgJnj4KGUl pKkcTZ3jaGUbDRcwJm8h aJumhTkeIX7jRZXtviqy FUMqvJ9zYSGqaCBwwFil NH9tOFFayfbvs986 GiBeAQR1KOAooRJyM0Xr cH9bXgJxMKWpMDYcD0Om hUTqDAgxG867CYukQrR6 YDDckdLpD5BbRQYf aLudXjB0g3T6Do6zNo4v BQ2cCGOpNF01HJ66fLNb y6N6gTV5J1TsWANykuwk baqxxID1AWHbADEa sS71tBJeTXqfOk5it6L6 i975SOQmVJHnlW64Ku0w oClwXUQqjCUAwY1gsaoe l5tetruxAnIdTKCw FHi0RDw1EMRtsOpuEvLh NTT7VkH2OHR5pIFztQ6d tZosfjpwcV1kDoa+MjAg YRJwngG5I8RgMjb4 ZLJicRdgRZ6qlDIzMJkp Ec1bcArzcCpcRD5aDGGi feqoHBKolB1fNMNzwLGl bCmiDR1iSFGuooki e572NjXnFZG8QAEmpPAm G2DzmA9xYkLkDUWyYVKg A9QfaOKcPItsN916SOae BeX3HIRprqIqQ5Ql UWUxpHyqUrP3j1T7Hw4H LZ6lgGO6G4CqHmf9XVUn iEnnXP4avWMfCRykSa2o fNqnkGdsBZ0iHBRp vffdMJHxeV9vVHFleJQm tShuVX9iWDRmqpwpi331 MxKnWRS0BYLdyJJoD4Rq iN2oVlLxSADuVDBq E8ThfWNwSRvrC567GFpa SnP2RRXpghLlL9XhKDVe hDxnTaH1j4D4Yz8BqLDm O1TuY4p3E5XwGema dHI+FF69LRQrYQ11jCYz pBDah8jwgKa0SmPkEUCr MPF5bCepYCdjg5LbHVRd U16xxORkk3K9JSIo hMjxuQMpYpUkxBA6lJ0q IKdbvaxhq8tvawzzKkao q1bxem29sP34O87rSTwf ZHRoPSIzMCUiIHZh aMxoee0ewH3mSl2+PGNv iLM5vRH1iB4vSlBlFcU5 RCiiP414OkSucDKnSzmo a4jrw9igpXp4QdSf YLYtwtUolSdcJWY0p1Ku Tp43M80oETzwZUPwNPHz CZJfNTLcaItbnc7okM9t Ii8+TA2qt9rxtt38 qP11uMQ+ZSHwIWN2oWin TMrsANPqbV9bOWlvWoJ4 BQPgSoTabC67hOJcFJxv Ng8wmOnkhQmyZY8m TYFjvdyzd259XeVlc5tp BOUolWCaUTwuPJU9D58p q3O4JMNfOJKxMGD3uNZ4 eZ7lrVrsxvtmzCIl dDsgdmVydGljYWwtYWxp B104QCKmfAivKgBjiWHr A2rlsdPGZB3sFgruwCM+ MBVoSDO8nGepFHnf HQRzdU4tNDMcQ4j3IgZt DtP5ASkiE7GmkaD9TMCr vWTnWSFfxOJTbW7qjipv l9fankwpRvYlCYVp EGv4WUd5TNEicHvhRlZq JJJ6YxF3GYN3rYOkaC3k nEeuzcujgS8wNsy+RklO OjwvdGQ+PHRkIHN0 iEofYZgaBIYqaI1lTGCg D4t1XiJjArZ1TTkkB2Oh paO3WHAhwUXvLUHxlJZD rL3qzaxyo5eccjrq RgVlOYLhQPi1PHm6BZVl qDtgNrUwOMB9YtN0MDI2 uRLmyX2gdPocobmmtT7c Oyc+TVJOOjwvdGQ+ XISoNCU7dGcqPSnoPITm eR5fLTYgE4o9PrAcTeE2 VRhhM7RihfM4EIPiuYQp MWBqgHDDsZ5edtgd r3quvvwzLfYhOKPbNBe4 INm6FWOlkCkeHrTuWOD0 IwA7IEP6lFCbnI1jaDel lgyvtU3oQwt+UGF5 CIN6DE22NO78A5UbEigc dGFibGU+PHRhYmxlIHdp ZHRoPScxMDAlJyBzdHls AA3cFu4iPXNjUHRa bGxh (more content not included)... Normal [facility] CBC AUTO DIFFon 04-13-2022 BASO # 0.1 103/ul Normal 0.0-0.1 [facility] Comment on above: Performed By: #### C VDTBH #### [facility] [address] [address] [address] Reema Mireles Basophils/100 WBC (Bld) 0.6 % Normal 0.2-2.0 [facility] Comment on above: Performed By: #### C VDTBH #### [facility] [address] [address] [address] Reema Mireles EO # 0.0 103/ul Normal 0.0-0.7 [facility] Comment on above: Performed By: #### C VDTBH #### [facility] [address] [address] [address] Reema Mireles Eosinophils/100 WBC (Bld) 0.2 % Critically low 0.9-7.0 [facility] Comment on above: Performed By: #### C VDTBH #### [facility] [address] [address] [address] Reema Mireles Erythrocyte distribution width (RBC) [Ratio] 11.4 % Normal 11.0-15.0 [facility] Comment on above: Performed By: #### C VDTBH #### [facility] [address] [address] [address] Reema Mireles Hematocrit (Bld) [Volume fraction] 38.3 % Normal 36.0-48.0 [facility] Comment on above: Performed By: #### C VDTBH #### [facility] [address] [place] [address] Dr. Reema Mireles Hemoglobin (Bld) [Mass/Vol] 13.4 g/dL Normal 12.0-16.0 [facility] Comment on above: Performed By: #### C VDTBH #### [facility] [address] [place] [address] Dr. Reema Mireles IG # 0.01 10e3/ul Normal 0.00-0.03 [facility] Comment on above: Performed By: #### C VDTBH #### [facility] [address] [place] [address] Dr. Reema Mireles IG % 0.1 % Normal 0.0-0.5 [facility] Comment on above: Performed By: #### C VDTBH #### [facility] [address] [place] [address] Dr. Reema Mireles LYMPH # 1.8 103/ul Normal 1.2-3.8 [facility] Comment on above: Performed By: #### C VDTBH #### [facility] [address] [place] [address] Dr. Reema Mireles Lymphocytes/100 WBC (Bld) 22.2 % Normal 20.5-60.0 [facility] Comment on above: Performed By: #### C VDTBH #### [facility] [address] [place] [address] Dr. Reema Mireles MANUAL DIFF REQ NO Normal [facility] Comment on above: Performed By: #### C VDTBH #### [facility] [address] [place] [address] Dr. Reema Mireles MCH (RBC) [Entitic mass] 30.6 pg Normal 26.7-34.0 [facility] Comment on above: Performed By: #### C VDTBH #### [facility] [address] [place] [address] Dr. Reema Mireles MCHC (RBC) [Mass/Vol] 35.0 g/dL Normal 29.9-35.2 [facility] Comment on above: Performed By: #### C VDTBH #### [facility] [address] [place] [address] Dr. Reema Mireles MCV (RBC) [Entitic vol] 87.4 fL Normal 81.0-99.0 [facility] Comment on above: Performed By: #### C VDTBH #### [facility] [address] [place] [address] Dr. Reema Mireles MONO # 0.7 103/ul Normal 0.3-0.8 [facility] Comment on above: Performed By: #### C VDTBH #### [facility] [address] [place] [address] Dr. Reema Mireles Monocytes/100 WBC (Bld) 8.2 % Normal 1.7-12.0 [facility] Comment on above: Performed By: #### C VDTBH #### [facility] [address] [place] [address] Dr. Reema Mireles NEUT # 5.5 103/ul Normal 1.4-6.5 [facility] Comment on above: Performed By: #### C VDTBH #### [facility] [address] [place] [address] Dr. Reema Mireles Neutrophils/100 WBC (Bld) 68.7 % Normal 43.0-75.0 [facility] Comment on above: Performed By: #### C VDTBH #### [facility] [address] [place] [address] Dr. Reema Mireles Platelet mean volume (Bld) [Entitic vol] 10.1 fL Normal 9.5-13.5 [facility] Comment on above: Performed By: #### C VDTBH #### [facility] [address] [place] [address] Dr. Reema Mireles PLT 404 103/ul Normal 150-450 [facility] Comment on above: Performed By: #### C VDTBH #### [facility] [address] [place] [address] Dr. Reema Mireles RBC 4.38 106/ul Normal 4.20-5.40 [facility] Comment on above: Performed By: #### C VDTBH #### [facility] [address] [place], [place] [address] Dr. Reema Mireles WBC 8.0 103/ul Normal 4.0-11.0 [facility] Comment on above: Performed By: #### C VDTBH #### [facility] [address] [place], [place] [address] HEAD WO CONon [...] by: AURELIA CARLOS Date: 2022-04-13 16:29 Normal [facility] Discharge Instructionson Discharge Instructions [id number] #[id number]:127 Normal [facility] ED Note-Physicianon 04-13-20 ED Note-Physician Basic Information Time Seen: Lata Hardy M.D. 04/12/2022 19:56 Chief Complaint Pt. presents to the ed with c/o headache and vertigo since thursday. Pt. was seen [facility] and started on prednisone. pt. stopped taking [...] The patient states she was seen at [facility] discharged home. She went to [...] neurological deficit. She has been seen at [facility] and started on prednisone. Possible [...] ADRYAN MARIE In 3 days 04/15/2022 EDT [facility] [place] [address]- Business (1) Additional Instructions: Return to the [...] Diagnostic Results No qualifying data available. Normal [facility] Comment on above: Result Comment: Elec tronically Signed By: Antony Villa, Lata Baxter\.br\Date and Time Signed: 04/13/22 04:56 EDT ER URINE PROFILEon 2 Bilirubin Ql (U) Negative Normal NEGATIVE [facility] Comment on above: Performed By: #### P REGU, ERUR #### [facility] [address] [place] [address] Dr. Reema Mireles Clarity (U) CLEAR Normal CLEAR [facility] Comment on above: Performed By: #### P REGU, ERUR #### [facility] [address] [address] [address] Reema Mireles Color (U) LT. YELLOW Normal YELLOW [facility] Comment on above: Performed By: #### P REGU, ERUR #### [facility] [address] [address] [address] Reema Mireles ERUAHD A micrscopic examination will be performed if indicated. Normal [facility] Comment on above: Performed By: #### P REGU, ERUR #### [facility] [address] [address] [address] Reema Mireles Glucose Ql (U) Negative Normal NEGATIVE [facility] Comment on above: Performed By: #### P REGU, ERUR #### [facility] [address] [place] [address] Dr. Reema Mireles Hemoglobin Ql (U) Negative Normal NEGATIVE [facility] Comment on above: Performed By: #### P REGU, ERUR #### [facility] [address] [place] [address] Dr. Reema Mireles Ketones Ql (U) Negative Normal NEGATIVE [facility] Comment on above: Performed By: #### P REGU, ERUR #### [facility] [address] [place] [address] Dr. Reema Mireles LEUKOCYTES Negative Normal NEGATIVE [facility] Comment on above: Performed By: #### P REGU, ERUR #### [facility] [address] [place] [address] Dr. Reema Mireles Nitrite Ql (U) Negative Normal NEGATIVE [facility] Comment on above: Performed By: #### P REGU, ERUR #### [facility] [address] [place] [address] Dr. Reema Mireles pH (U) 6.5 [pH] Normal 5-9 [facility] Comment on above: Performed By: #### P REGU, ERUR #### [facility] [address] [place] [address] Dr. Reema Mireles SPEC GRAVITY 1.005 Normal 1.005-<=1.025 [facility] Comment on above: Performed By: #### P REGU, ERUR #### [facility] [address] [place] [address] Dr. Reema Mireles UA PROTEIN Negative Normal NEGATIVE/ TRACE [facility] Comment on above: Performed By: #### P REGU, ERUR #### [facility] [address] [place] [address] Dr. Reema Mireles UR MICRO IND NOT INDICATED Normal [facility] Comment on above: Performed By: #### P REGU, ERUR #### [facility] [address] [place] [address] Dr. Reema Mireles Urobilinogen Qn (U) 0.2 {Renny'U}/dL Normal 0.2 - 1. 0 [facility] Comment on above: Performed By: #### P REGU, ERUR #### [facility] [address] [address] [address] Reema Mireles URon 04-13-2022 , QUAL Negative Normal NEGATIVE [facility] Comment on above: Performed By: #### P REGU, ERUR #### [facility] [address] [address] [address] Reema Mireles PROF CHEM 8 (BAS METB)on Anion gap [Moles/Vol] 14.0 mmol/L Normal [facility] Comment on above: Performed By: #### B MP, TSH #### [facility] [address] [place] [address] Dr. Reema Mireles Calcium [Mass/Vol] 9.2 mg/dL Normal 8.5-10.1 [facility] Comment on above: Performed By: #### B MP, TSH #### [facility] [address] [address] [address] Reema Mireles Chloride [Moles/Vol] 102 mmol/L Normal 98-107 [facility] Comment on above: Performed By: #### B MP, TSH #### [facility] [address] [address] [address] Reema Mireles CO2 [Moles/Vol] 26.3 mmol/L Normal 21.0-32.0 [facility] Comment on above: Performed By: #### B MP, TSH #### [facility] [address] [address] [address] Reema Mireles Creatinine [Mass/Vol] 0.65 mg/dL Normal 0.55-1.02 [facility] Comment on above: Performed By: #### B MP, TSH #### [facility] [address] [place] [address] Dr. Reema Mireles EGFR-AF COLOMBIAN >60 Normal >=60 [facility] Comment on above: Performed By: #### B MP, TSH #### [facility] [address] [address] [address] Reema Mireles EGFR-NON AF COLOMBIAN >60 Normal >=60 [facility] Comment on above: Performed By: #### B MP, TSH #### [facility] [address] [address] [address] Reema Mireles Glucose [Mass/Vol] 92 mg/dL Normal 74-106 [facility] Comment on above: Performed By: #### B MP, TSH #### [facility] [address] [address] [address] Reema Mireles Potassium [Moles/Vol] 3.3 mmol/L Critically low 3.5-5.1 [facility] Comment on above: Performed By: #### B GURPREET, TSH #### [facility] [address] [address] [address] Reema Mireles Sodium [Moles/Vol] 139 mmol/L Normal 136-145 [facility] Comment on above: Performed By: #### B GURPREET, TSH #### [facility] [address] [address] [address] Reema Mireles Urea nitrogen [Mass/Vol] 8.0 mg/dL Normal 7.0-18.0 [facility] Comment on above: Performed By: #### B GURPREET, TSH #### [facility] [address] [place] [address] Dr. Reema Mireles Urea nitrogen/Creatinine [Mass ratio] 12.3 mg/mg Normal [facility] Comment on above: Performed By: #### B GURPREET, TSH #### [facility] [address] [place] [address] Dr. Reema Mireles TSHon 04-13-2022 TSH 1.293 uIU/mL Normal 0.358-3.740 [facility] Comment on above: Performed By: #### B GURPREET, TSH #### [facility] [address] [place] [address] Dr. Reema Mireles Consent for Treatmenton 03-28 Consent for Treatment [id number] Normal [facility] ED Clinical Summaryon 2021 ED Clinical Summary [address] [address] ED Clinical Summary Person Information Name: JUANPABLO CHAPARRO [place] Age: 21 Years : 2000 Sex: Female Language: Chadian PCP: ADRYAN MARIE MD Marital Status: Single Phone: [phone] Visit Id: Visit Reason: Vertigo - recurrent; [...] 21:07:38 04/12/2022 21:07:38 04/12/2022 21:07:38 ADDRESS: [address] [place] [phone] PHYS DOC NOTES: MEDICAL INFORMATION: Prescriptions Given: PATIENT EDUCATION INFORMATION: Instructions: General Headache Without Cause; Vertigo Follow up: With: Address: When: ADRYAN MARIE [address] [place], [place] [id number] [employer] (1) In 3 days 04/15/2022 Comments: Return to the emergency room if her headache gets worse, vertigo becomes persistent or any new symptoms DIAGNOSIS: 1:Vertigo; 2:Headache Normal [facility] ED Patient Education Noteon 04-12-2022 [...] you feel dizzy. General instructions ? Take kpro-pie-nikkzoc and prescription medicines only as told by [...] 06/24/2006 Document Revised: 08/08/2019 Document Reviewed: 08/08/2019 [employer] Patient Education ? 2020 [employer] Neurology General Headache Without Cause A [...] with your condition: Managing pain ? Take vace-iau-fyublja and prescription medicines only as told by [...] of beer (more content not included)... Normal [facility] ED Patient Summaryon 022 ED Patient Summary [address] [address] Patient Discharge Instructions Person Information Name: JUANPABLO CHAPARRO Age: 21 Years Arrival Date: 04/12/2022 19:22:40 Discharge Diagnosis: 1:Vertigo; 2:Headache Primary Care Physician: ADRYAN MARIE MD Provider Information Primary Provider: Hajdari Lata [place] [employer] Machine:None The exam and treatment you received in the Emergency Department were for an urgent problem and are not intended as complete care. It is important that you follow up with a doctor, nurse practitioner, or physician?s health center assistant for ongoing care. If your symptoms [...] Instructions: With: Address: When: ADRYAN MARIE [address] [place] [address] [employer] In 3 days 04/15/2022 Comments: Return to [...] opioids can be used to help relieve rddiljco-fx-znytdy pain and are often prescribed following a [...] addiction, tel (more content not included)... Normal [facility] CBC AUTO DIFFon 04-09-2022 BASO # 0.1 103/ul Normal 0.0-0.1 [facility] Comment on above: Performed By: #### B MP, TSH #### [facility] [address] [address] [address] Reema Mireles Basophils/100 WBC (Bld) 0.5 % Normal 0.2-2.0 [facility] Comment on above: Performed By: #### B MP, TSH #### [facility] [address] [place] [address] Dr. Reema Mireles EO # 0.1 103/ul Normal 0.0-0.7 [facility] Comment on above: Performed By: #### B MP, TSH #### [facility] [address] [place] [address] Dr. Reema Mireles Eosinophils/100 WBC (Bld) 1.0 % Normal 0.9-7.0 [facility] Comment on above: Performed By: #### B MP, TSH #### [facility] [address] [place] [address] Dr. Reema Mireles Erythrocyte distribution width (RBC) [Ratio] 11.7 % Normal 11.0-15.0 [facility] Comment on above: Performed By: #### B MP, TSH #### [facility] [address] [place] [address] Dr. Reema Mireles Hematocrit (Bld) [Volume fraction] 37.2 % Normal 36.0-48.0 [facility] Comment on above: Performed By: #### B MP, TSH #### [facility] [address] [place] [address] Dr. Reema Mireles Hemoglobin (Bld) [Mass/Vol] 12.8 g/dL Normal 12.0-16.0 [facility] Comment on above: Performed By: #### B MP, TSH #### [facility] [address] [place] [address] Dr. Reema Mireles IG # 0.02 10e3/ul Normal 0.00-0.03 [facility] Comment on above: Performed By: #### B MP, TSH #### [facility] [address] [place] [address] Dr. Reema Mireles IG % 0.2 % Normal 0.0-0.5 [facility] Comment on above: Performed By: #### B MP, TSH #### [facility] [address] [place] [address] Dr. Reema Mireles LYMPH # 1.8 103/ul Normal 1.2-3.8 [facility] Comment on above: Performed By: #### B MP, TSH #### [facility] [address] [place] [address] Dr. Reema Mireles Lymphocytes/100 WBC (Bld) 19.0 % Critically low 20.5-60.0 [facility] Comment on above: Performed By: #### B MP, TSH #### [facility] [address] [place] [address] Dr. Reema Mireles MANUAL DIFF REQ NO Normal [facility] Comment on above: Performed By: #### B MP, TSH #### [facility] [address] [place] [address] Dr. Reema Mireles MCH (RBC) [Entitic mass] 30.4 pg Normal 26.7-34.0 [facility] Comment on above: Performed By: #### B MP, TSH #### [facility] [address] [place] [address] Dr. Reema Mireles MCHC (RBC) [Mass/Vol] 34.4 g/dL Normal 29.9-35.2 [facility] Comment on above: Performed By: #### B MP, TSH #### [facility] [address] [place] [address] Dr. Reema Mireles MCV (RBC) [Entitic vol] 88.4 fL Normal 81.0-99.0 [facility] Comment on above: Performed By: #### B MP, TSH #### [facility] [address] [place] [address] Dr. Reema Mireles MONO # 0.7 103/ul Normal 0.3-0.8 [facility] Comment on above: Performed By: #### B MP, TSH #### [facility] [address] [place] [address] Dr. Reema Mireles Monocytes/100 WBC (Bld) 6.8 % Normal 1.7-12.0 [facility] Comment on above: Performed By: #### B MP, TSH #### [facility] [address] [place] [address] Dr. Reema Mireles NEUT # 7.0 103/ul Critically high 1.4-6.5 [facility] Comment on above: Performed By: #### B MP, TSH #### [facility] [address] [place] [address] Dr. Reema Mireles Neutrophils/100 WBC (Bld) 72.5 % Normal 43.0-75.0 [facility] Comment on above: Performed By: #### B GURPREET, TSH #### [facility] [address] [place] [address] Dr. Reema Mireles Platelet mean volume (Bld) [Entitic vol] 10.3 fL Normal 9.5-13.5 [facility] Comment on above: Performed By: #### B GURPREET, TSH #### [facility] [address] [place] [address] Dr. Reema Mireles PLT 358 103/ul Normal 150-450 [facility] Comment on above: Performed By: #### B GURPREET, TSH #### [facility] [address] [place] [address] Dr. Reema Mireles RBC 4.21 106/ul Normal 4.20-5.40 [facility] Comment on above: Performed By: #### B GURPREET, TSH #### [facility] [address] [place] [address] Dr. Reema Mireles WBC 9.7 103/ul Normal 4.0-11.0 [facility] Comment on above: Performed By: #### B GURPREET, TSH #### [facility] [address] [place] [address] Dr. Reema Mireles CULTURE BLOODon 04-09-2022 Microscopic examination of blood, culture Culture Observations: NO GROWTH AT 5 DAYS. Normal [facility] Comment on above: Performed By: #### B GURPREET, TSH #### [facility] [address] [place] [address] Dr. Reema Mireles ER URINE PROFILEon 2 Bilirubin Ql (U) Negative Normal NEGATIVE [facility] Comment on above: Performed By: #### B GURPREET, TSH #### [facility] [address] [place] [address] Dr. Reema Mireles Clarity (U) CLEAR Normal CLEAR [facility] Comment on above: Performed By: #### B MP, TSH #### [facility] [address] [place] [address] Dr. Reema Mireles Color (U) LT. YELLOW Normal YELLOW [facility] Comment on above: Performed By: #### B MP, TSH #### [facility] [address] [place] [address] Dr. Reema ELIZALDE A micrscopic examination will be performed if indicated. Normal [facility] Comment on above: Performed By: #### B MP, TSH #### [facility] [address] [place] [address] Dr. Reema Mireles Glucose Ql (U) Negative Normal NEGATIVE [facility] Comment on above: Performed By: #### B MP, TSH #### [facility] [address] [place] [address] Dr. Reema Mireles Hemoglobin Ql (U) TRACE-INTACT Abnormal NEGATIVE [facility] Comment on above: Performed By: #### B MP, TSH #### [facility] [address] [place] [address] Dr. Reema Mireles Ketones Ql (U) Negative Normal NEGATIVE [facility] Comment on above: Performed By: #### B MP, TSH #### [facility] [address] [place] [address] Dr. Reema Mireles LEUKOCYTES Negative Normal NEGATIVE [facility] Comment on above: Performed By: #### B MP, TSH #### [facility] [address] [place] [address] Dr. Reema Mireles Nitrite Ql (U) Negative Normal NEGATIVE [facility] Comment on above: Performed By: #### B MP, TSH #### [facility] [address] [place] [address] Dr. Reema Mireles pH (U) 5.5 [pH] Normal 5-9 [facility] Comment on above: Performed By: #### B MP, TSH #### [facility] [address] [place] [address] Dr. Reema Mireles SPEC GRAVITY <=1.005 Abnormal 1.005-<=1.025 [facility] Comment on above: Performed By: #### B MP, TSH #### [facility] [address] [place] [address] Dr. Reema Mireles UA PROTEIN Negative Normal NEGATIVE/ TRACE [facility] Comment on above: Performed By: #### B MP, TSH #### [facility] [address] [place] [address] Dr. Reema Mireles UR MICRO IND INDICATED Normal [facility] Comment on above: Performed By: #### B MP, TSH #### [facility] [address] [place] [address] Dr. Reema Mireles Urobilinogen Qn (U) 0.2 {Renny'U}/dL Normal 0.2 - 1. 0 [facility] Comment on above: Performed By: #### B MP, TSH #### [facility] [address] [place] [address] Dr. Reema Mireles LACTATE/LACTIC ACIDon 2021 Lactate [Moles/Vol] 2.2 mmol/L Critically high 0.4-1.9 [facility] Comment on above: Performed By: #### B MP, TSH #### [facility] [address] [place] [address] Dr. Reema Mireles URon 04-09-2022 , QUAL Negative Normal NEGATIVE [facility] Comment on above: Performed By: #### B MP, TSH #### [facility] [address] [place] [address] Dr. Reema Mireles PROF 14(COMP METB)on 022 Albumin [Mass/Vol] 4.5 g/dL Normal 3.4-5.0 [facility] Comment on above: Performed By: #### C MP #### [facility] [address] [place] [address] Dr. Reema Mireles Albumin/Globulin [Mass ratio] 1.3 {ratio} Normal [facility] Comment on above: Performed By: #### C MP #### [facility] [address] [place] [address] Dr. Reema Mireles ALP [Catalytic activity/Vol] 83 U/L Normal 46-116 [facility] Comment on above: Performed By: #### C MP #### [facility] [address] [place] [address] Dr. Reema Mireles ALT [Catalytic activity/Vol] 26 U/L Normal 14-59 [facility] Comment on above: Performed By: #### C MP #### [facility] [address] [address] [address] Reema Mireles Anion gap [Moles/Vol] 14.9 mmol/L Normal [facility] Comment on above: Performed By: #### C MP #### [facility] [address] [address] [address] Reema Mireles AST [Catalytic activity/Vol] 12 U/L Critically low 15-37 [facility] Comment on above: Performed By: #### C MP #### [facility] [address] [place] [address] Dr. Reema Mireles Bilirubin [Mass/Vol] 0.3 mg/dL Normal 0.2-1.0 [facility] Comment on above: Performed By: #### C MP #### [facility] [address] [place] [address] Dr. Reema Mireles Calcium [Mass/Vol] 9.6 mg/dL Normal 8.5-10.1 [facility] Comment on above: Performed By: #### C MP #### [facility] [address] [address] [address] Reema Mireles Chloride [Moles/Vol] 103 mmol/L Normal 98-107 [facility] Comment on above: Performed By: #### C MP #### [facility] [address] [address] [address] Reema Mireles CO2 [Moles/Vol] 24.4 mmol/L Normal 21.0-32.0 [facility] Comment on above: Performed By: #### C MP #### [facility] [address] [address] [address] Reema Mireles Creatinine [Mass/Vol] 0.87 mg/dL Normal 0.55-1.02 [facility] Comment on above: Performed By: #### C MP #### [facility] [address] [address] [address] Reema Mireles EGFR-AF COLOMBIAN >60 Normal >=60 [facility] Comment on above: Performed By: #### C MP #### [facility] [address] [address] [address] Reema Mireles EGFR-NON AF COLOMBIAN >60 Normal >=60 [facility] Comment on above: Performed By: #### C MP #### [facility] [address] [address] [address] Reema Mireles Globulin (S) [Mass/Vol] 3.5 g/dL Normal [facility] Comment on above: Performed By: #### C MP #### [facility] [address] [place] [address] Dr. Reema Mireles Glucose [Mass/Vol] 109 mg/dL Critically high 74-106 [facility] Comment on above: Performed By: #### C MP #### [facility] [address] [address] [address] Reema Mireles Potassium [Moles/Vol] 3.3 mmol/L Critically low 3.5-5.1 [facility] Comment on above: Performed By: #### C MP #### [facility] [address] [address] [address] Reema Mireles Protein [Mass/Vol] 8.0 g/dL Normal 6.4-8.2 [facility] Comment on above: Performed By: #### C MP #### [facility] [address] [address] [address] Reema Mireles Sodium [Moles/Vol] 139 mmol/L Normal 136-145 [facility] Comment on above: Performed By: #### C MP #### [facility] [address] [address] [address] Reema Mireles Urea nitrogen [Mass/Vol] 9.0 mg/dL Normal 7.0-18.0 [facility] Comment on above: Performed By: #### C MP #### [facility] [address] [address] [address] Reema Mireles Urea nitrogen/Creatinine [Mass ratio] 10.3 mg/mg Normal [facility] Comment on above: Performed By: #### C MP #### [facility] [address] [address] [address] Reema Mireles URINE MICROSCOPIC ONLYon BACTERIA NONE SEEN Normal NONE SEEN [facility] Comment on above: Performed By: #### B MP, TSH #### [facility] [address] [place] [address] Dr. Reema Mireles Bacteria identified Cx Nom (U) NOT INDICATED Normal [facility] Comment on above: Performed By: #### B MP, TSH #### [facility] [address] [place] [address] Dr. Reema Mireles CAST NONE SEEN Normal NONE SEEN [facility] Comment on above: Performed By: #### B MP, TSH #### [facility] [address] [place] [address] Dr. Reema Mireles Crystals LM Nom (Urine sed) NONE SEEN Normal NONE SEEN [facility] Comment on above: Performed By: #### B MP, TSH #### [facility] [address] [place] [address] Dr. Reema Mireles Epithelial cells LM Ql (Urine sed) RARE Normal NONE SEEN /RARE [facility] Comment on above: Performed By: #### B MP, TSH #### [facility] [address] [place] [address] Dr. Reema Mireles MUCOUS NONE SEEN Normal NONE SEEN [facility] Comment on above: Performed By: #### B MP, TSH #### [facility] [address] [place] [address] Dr. Reema Mireles RBC 0-2 Normal 0-2 [facility] Comment on above: Performed By: #### B MP, TSH #### [facility] [address] [place] [address] Dr. Reema Mireles WBC NONE SEEN Normal NONE SEEN [facility] Comment on above: Performed By: #### B MP, TSH #### [facility] [address] [place] [address] Dr. Reema Mireles CBC AUTO DIFFon 10-25-2021 BASO # 0.0 103/ul Normal 0.0-0.1 [facility] Comment on above: Performed By: #### C BC #### [facility] [address] [place] [address] Dr. Reema Mireles Basophils/100 WBC (Bld) 0.6 % Normal 0.2-2.0 [facility] Comment on above: Performed By: #### C BC #### [facility] [address] [place] [address] Dr. Reema Mireles EO # 0.1 103/ul Normal 0.0-0.7 [facility] Comment on above: Performed By: #### C BC #### [facility] [address] [place] [address] Dr. Reema Mireles Eosinophils/100 WBC (Bld) 1.8 % Normal 0.9-7.0 [facility] Comment on above: Performed By: #### C BC #### [facility] [address] [place] [address] Dr. Reema Mireles Erythrocyte distribution width (RBC) [Ratio] 11.9 % Normal 11.0-15.0 [facility] Comment on above: Performed By: #### C BC #### [facility] [address] [place] [address] Dr. Reema Mireles Hematocrit (Bld) [Volume fraction] 38.1 % Normal 36.0-48.0 [facility] Comment on above: Performed By: #### C BC #### [facility] [address] [place] [address] Dr. Reema Mireles Hemoglobin (Bld) [Mass/Vol] 13.1 g/dL Normal 12.0-16.0 [facility] Comment on above: Performed By: #### C BC #### [facility] [address] [place] [address] Dr. Reema Mireles IG # 0.01 10e3/ul Normal 0.00-0.03 [facility] Comment on above: Performed By: #### C BC #### [facility] [address] [place] [address] Dr. Reema Mireles IG % 0.1 % Normal 0.0-0.5 [facility] Comment on above: Performed By: #### C BC #### [facility] [address] [place] [address] Dr. Reema Mireles LYMPH # 1.9 103/ul Normal 1.2-3.8 [facility] Comment on above: Performed By: #### C BC #### [facility] [address] [place] [address] Dr. Reema Mireles Lymphocytes/100 WBC (Bld) 27.8 % Normal 20.5-60.0 [facility] Comment on above: Performed By: #### C BC #### [facility] [address] [place] [address] Dr. Reema Mireles MANUAL DIFF REQ NO Normal [facility] Comment on above: Performed By: #### C BC #### [facility] [address] [place] [address] Dr. Reema Mireles MCH (RBC) [Entitic mass] 30.5 pg Normal 26.7-34.0 [facility] Comment on above: Performed By: #### C BC #### [facility] [address] [place] [address] Dr. Reema Mireles MCHC (RBC) [Mass/Vol] 34.4 g/dL Normal 29.9-35.2 [facility] Comment on above: Performed By: #### C BC #### [facility] [address] [place] [address] Dr. Reema Mireles MCV (RBC) [Entitic vol] 88.8 fL Normal 81.0-99.0 [facility] Comment on above: Performed By: #### C BC #### [facility] [address] [place] [address] Dr. Reema Mireles MONO # 0.8 103/ul Normal 0.3-0.8 [facility] Comment on above: Performed By: #### C BC #### [facility] [address] [place] [address] Dr. Reema Mireles Monocytes/100 WBC (Bld) 11.2 % Normal 1.7-12.0 [facility] Comment on above: Performed By: #### C BC #### [facility] [address] [place] [address] Dr. Reema Mireles NEUT # 4.0 103/ul Normal 1.4-6.5 [facility] Comment on above: Performed By: #### C BC #### [facility] [address] [place] [address] Dr. Reema Mireles Neutrophils/100 WBC (Bld) 58.5 % Normal 43.0-75.0 [facility] Comment on above: Performed By: #### C BC #### [facility] [address] [place] [address] Dr. Reema Mireles Platelet mean volume (Bld) [Entitic vol] 10.0 fL Normal 9.5-13.5 [facility] Comment on above: Performed By: #### C BC #### [facility] [address] [place] [address] Dr. Reema Mireles PLT 361 103/ul Normal 150-450 [facility] Comment on above: Performed By: #### C BC #### [facility] [address] [place] [address] Dr. Reema Mireles RBC 4.29 106/ul Normal 4.20-5.40 [facility] Comment on above: Performed By: #### C BC #### [facility] [address] [place] [address] Dr. Reema Mireles WBC 6.8 103/ul Normal 4.0-11.0 [facility] Comment on above: Performed By: #### C BC #### [facility] [address] [place] [address] Dr. Reema Mireles PREG QUANT HCGon 10-25-2021 HCG QUANT 1 mIU/mL Normal [facility] Comment on above: Performed By: #### P REGQNT #### [facility] [address] [place] [address] Dr. Reema Mireles HCG RANGE SEE BELOW Normal [facility] Comment on above: Result Comment: 5-50 0-1 WEEK 40-300 1-2 WEEKS 100-1,000 2-3 WEEKS 500-6,000 3-4 WEEKS 5,000-200,000 1-2 MONTHS 10,000-100,000 2-3 MONTHS 3,000-50,000 2ND TRIMESTER 1,000-50,000 3RD TRIMESTER Performed By: #### P REGQNT #### [facility] [address] [address] [address] Reema Mireles Covid-19 PCR ([facility])on 09-29 SARS-CoV-2 (COVID-19) RNA FRANKIE+probe Ql (Unsp spec) Not detected Normal NOT DETECTED [facility] Comment on above: Result Comment: This test is not yet approved or cleared by the [place] FDA. When there are no FDA-approved or cleared tests available, and other criteria are met, FDA can make tests available under an emergency access mechanism called an Emergency Use Authorization (EUA). The EUA for this test is supported by the [place] of Health and Human Service's (HHS's) declaration [...] consistent with SARS-CoV-2. Performed By: #### C VDTBH #### [facility] [address] [place], [place] [address] Dr. Reema Mireles Vital Signs Date Time Vital Sign Value Performing Clinician Facility 11-12-2023 14:15-0500 Body weight 108.86 kg Zelnas Work Phone: [facility] 11-12-2023 14:15-0500 Diastolic blood pressure 72 mm[Hg] Zelnas Work Phone: [facility] 11-12-2023 14:15-0500 Systolic blood pressure 122 mm[Hg] Devan Tello DO Work Phone: [facility] 04-12-2022 21:04-0400 Diastolic blood pressure 84 mm[Hg] [facility] 04-12-2022 21:04-0400 Heart rate 82 /min [facility] 04-12-2022 21:04-0400 Respiratory rate 16 /min [facility] 04-12-2022 21:04-0400 SaO2% (BldA) [Mass fraction] 98 % [facility] 04-12-2022 21:04-0400 Systolic blood pressure 120 mm[Hg] [facility] 04-12-2022 20:32-0400 gluc 80 mg/dL [facility] Comment on above: Result Comment: not taken due to pt refu jimmie of any injection 04-12-2022 20:32-0400 gluc [facility] 04-12-2022 19:25-0400 Body temperature 99.32 [degF] [facility] [facility] [place] 04-12-[facility]22 19:25-0400 Diastolic blood pressure 84 mm[Hg] [facility] [place] 04-12-2022 19:25-0400 Heart rate 90 /min [facility] [place] 04-12-2022 19:25-0400 Respiratory rate 18 /min [facility] [place] 04-12-2022 19:25-0400 SaO2% (BldA) [Mass fraction] 98 % [facility] [place] 04-12-2022 19:25-0400 Systolic blood pressure 118 mm[Hg] [facility] [place] 04-09-2022 12:20-0400 Body height 165.1 cm Deonna Back Other [facility] Other 04-09-2022 12:20-0400 Body mass index (BMI) [Ratio] 35.61 kg/m2 Deonna Nazanin Other [facility] Other 04-09-2022 12:20-0400 Body temperature 98.4 [degF] Deonna Nazanin Other [facility] Other 04-09-2022 12:20-0400 Body weight 97.07 kg Deonna Nazanin Other [facility] Other 04-09-2022 12:20-0400 Diastolic blood pressure 83 mm[Hg] Deonna Nazanin Other [facility] Other 04-09-2022 12:20-0400 Respiratory rate 18 /min Deonna Nazanin Other [facility] Other 04-09-2022 12:20-0400 SaO2% (BldA) [Mass fraction] 99 % Deonna Nazanin Other [facility] Other 04-09-2022 12:20-0400 Systolic blood pressure 135 mm[Hg] Deonna Nazanin Other [facility] Other 04-02-2022 19:00-0400 Body height 165.1 cm Deonna Nazanin Other [facility] Other 04-02-2022 19:00-0400 Body mass index (BMI) [Ratio] 35.71 kg/m2 Deonna Nazanin Other [facility] Other 04-02-2022 19:00-0400 Body temperature 98.1 [degF] Deonna Nazanin Other [facility] Other 04-02-2022 19:00-0400 Body weight 97.34 kg Deonna Back Other [facility] Other 04-02-2022 19:00-0400 Diastolic blood pressure 83 mm[Hg] Deonna Back Other [facility] Other 04-02-2022 19:00-0400 Respiratory rate 18 /min Deonna Back Other [facility] Other 04-02-2022 19:00-0400 SaO2% (BldA) [Mass fraction] 100 % Deonna Back Other [facility] Other 04-02-2022 19:00-0400 Systolic blood pressure 134 mm[Hg] Deonna Back Other [facility] Other Encounters Encounter Date Encounter Type Care Provider Facility Start: 01-21-2024 End: 01-21-2024 ambulatory DEVAN OMER Not Available Start: 01-14-2024 End: 01-14-2024 ambulatory CYDNEY DERIC Not Available Start: 01-05-2024 End: 01-05-2024 ambulatory [...] Start: 11-03-2023 Clinisync Result Encounter Cydney Leos CHIKA Work Phone: [facility] Unsolicited Start: 11-03-2023 Clinisync Result Encounter Cydney Leos CHIKA Work Phone: [facility] External [facility] Unsolicited Start: [...] 04-12-2022 Emergency department patient visit Kimberleealisa [facility] Start: 04-10-2022 End: 04-10-2022 ambulatory Deonna Back Other [facility] Other Start: 04-10-2022 Telephone encounter Deonna [facility] Start: 04-09-2022 End: 04-09-2022 ambulatory Deonna Back Other [facility] Other Start: 04-09-2022 Office outpatient vi sit 15 minutes Deonna Back [facility] Start: 04-09-2022 End: 04-09-[address] LUIS ANTONIO SUTTON Facility:[facility] Start: 04-02-2022 (URG) Urgent Care Visit Deonna pace [facility] Start: 04-02-2022 End: 04-02-2022 ambulatory Deonna Back Other [place] [employer] Other Start: 10-25-2021 End: 10-25-[address] ADRYAN MARIE Facility:[facility] Start: 10-24-2021 Encounter for preprocedural laboratory examination DR DEVAN TELLO [facility] Start: 10-22-2021 End: 10-23-[address] ADRYAN MARIE Facility:[facility] Start: 10-22-2021 End: 10-23-2021 Encounter for preprocedural laboratory examination DR ADRYAN MARIE Facility:[facility] Start: 10-19-2021 Encounter for other preprocedural examination DR DEVAN TELLO [facility] Start: 10-17-2021 End: 10-18-[address] [...] [facility] [address] [place] [id number] Cydney Leos PA [address] [place] [address] [facility] Start: 11-26-2023 End: 11-26-2023 Professional / ancillary services management 11/26/2023 10:30 AM EST Ancillary Procedure [facility] [address] [place] [address] [facility] Start: 11-12-2023 End: 11-12-2024 US for US OB SCAN FOR GROWTH Imaging Routine Excessive growth affecting management of in third trimester, single or unspecified fetus Expected: 11/12/2023 (Approximate), Expires: 11/12/2024 [facility] Work Phone: Comment on above: Expected: 11/12/2023 (Approximate), Expires: 11/12/2024 Start: 11-12-2023 End: 11-12-2023 Patient encounter procedure 11/12/2023 10:50 AM EST Routine [facility] [address] [place] [id number] Devan Tello, DO [address] [place] [address] [facility] Payers Date Payer Category Payer Unknown [facility] MEDICAID [id number] 2023-Present [address] [place] [address] [id number] 2023 Medicaid [id number] 2001 Unknown [id number] 2.16.840.1.281711.3.579.2. 593 2001 Unknown [id number] 2.16.840.1.435675.3.579.2. 593 2001 Unknown [id number] 2.16.840.1.476401.3.579.2. 593 2001 Unknown [id number] 2.16.840.1.253890.3.579.2. 593 2001 Unknown [id number] 2.16.840.1.963625.3.579.2. 593 2001 Unknown [id number] 2.16.840.1.230424.3.579.2. 593 2001 Unknown [id number] 2.16.840.1.730096.3.579.2. 593 2001 Unknown [id number] 2.16.840.1.802653.3.579.2. 593 2001 Unknown [id number] 2.16.840.1.492155.3.579.2. 593 2001 Unknown [id number] 2.16.840.1.369508.3.579.2. 593 2001 Unknown [id number] 2.16.840.1.679415.3.579.2. 593 2001 Unknown [id number] 2.16.840.1.887769.3.579.2. 1259 2001 Unknown [id number] 2.16.840.1.033226.3.579.2. 1259 2001 Unknown [id number] 2.16.840.1.029675.3.579.2. 1259 2001 Unknown [id number] 2.16.840.1.093386.3.579.2. 1259 2001 Unknown [id number] 2.16.840.1.285634.3.579.2. 1259 2001 Unknown [id number] 2.16.840.1.591213.3.579.2. 1259 2001 Unknown [id number] 2.16.840.1.290689.3.579.2. 1259 2001 Unknown [id number] 2.16.840.1.953052.3.579.2. 1259 2001 Unknown [id number] 2.16.840.1.675902.3.579.2. 1259 2001 Unknown [id number] 2.16.840.1.070756.3.579.2. 1259 1959 [id number] 2.16.840.1.843172.19 Social History Date Type Detail Facility Unknown if ever smoked [facility] Other Sex Assigned At [facility] Other Tobacco smoking status No Smoking Status Entered [facility] Start: 06-20-2023 Tobacco smoking status NHIS Tobacco smoking consumption unknown [facility] Start: 10-15-2023 Alcohol intake Lifetime non-d hermes (finding) [facility] Start: 06-20-2023 Tobacco Comment Current smoker (frequency unknown) [facility] Start: 05-06-2023 [facility] Start: 2001 Sex Assigned At Not on file [facility] Goals Date Patient Goal Desired Activity /State Personal health goal Functional Status Date Assessment Result Facility 04-12-2022 Functional Status N/A [facility] History of Present illness Narrative 11-12-2023 Ciarra [...] Devan Tello DO documented in this encounter [facility] Discharge instructions 04-12-2022 Note Date & Type Note Facility 07-16-2022 Hospital Discharg e instructions Patient Education 04/12/2022 [...] help with your condition: Managing pain Take gyps-gwf-drbuyha and prescription medicines only as told by [...] 09/14/2006 Document Revised: 04/04/2019 Document Reviewed: 04/04/2019 [employer] Patient Education 2020 [employer] 04/12/2022 21:07:38 Vertigo Vertigo Vertigo is [...] if you feel dizzy. General instructions Take iuej-yze-kirumge and prescription medicines only as told by [...] 06/24/2006 Document Revised: 08/08/2019 Document Reviewed: 08/08/2019 [employer] Patient Education 2019 [employer]. Follow Up Care 04/12/2022 19:25:17 With:ADRYAN MARIE Address: [address] [place], [place] [id number] Business (1) When:04/15/2022 20:55:24 Comments:Return to the emergency room if her headache gets worse, vertigo becomes persistent or any new symptoms [facility] Evaluation note 04-09-2022 Note Date [...] She was prescribed Zofran with no improvement. [facility] Other Evaluation note 04-02-2022 Note Date & [...] 3 days. No swimming for a week [facility] Other Clinical Note 10-25-2021 Note Date & Type Note Facility 10-25-2021 Note OPERATIVE NOTE PROCEDURE: Diagnostic laparoscopy. PREOPERATIVE DIAGNOSIS: Pelvic pain, dyspareunia dysmenorrhea. POSTOPERATIVE DIAGNOSIS: Pelvic pain, dyspareunia dysmenorrhea. ANESTHESIA: General. SURGEON: Devan Tello D.O. MANAGER STYLIST: JAE Worley URINE OUTPUT: Yellow and clear. [...] taken to Recovery Room in stable condition. [facility] Signed and Approved by: DR DEVAN TELLO . 11/01/2021 17:31:00 [facility] Evaluation + Plan note Note Date & Type Note Facility Evaluation + Plan note No data available for this section [facility] Evaluation note Note Date & Type Note Facility Evaluation note No Information [facility] [employer] Other Evaluation note Note Date & Type [...] endometriosis Hospitalization History RSV as a baby [facility] Other Progress note Note Date & Type Note Facility Progress note No data available for this section [facility] Summary Purpose Family History No Family History Records FoundNo Family History Records FoundNo Family History Records Found Advance Directives No Advanced Directives Records FoundNo Advanced Directives Records FoundNo Advanced Directives Records Found Additional Source Comments REASON FOR VISIT (unrecogniz ed section and content) Reason Comments Routine Visit Care Team (unrecognized sect ion and content) Meat Specialist Relationship Specialty Start Date End Date Adryan Marie MD [address] [place] [address] PCP - General Family Medicine 06/19/23 Meat Specialist Relationship Specialty Start Date End Date Adryan Marie MD [address] [place] [address] PCP - General Family Medicine 06/19/23 INFORMATION SOURCE (unrecogn ized section and content) DATE CREATED AUTHOR 04/26/2022 [facility] DATE CREATED AUTHOR AUTHOR'S ORGANIZ ATION 09/19/2022 [facility] DATE CREATED AUTHOR AUTHOR'S ORGANIZ ATION 01/22/2024 [facility] dicsd Specialists [facility] FOR RECORDS PERTAINING TO PATIENTS [...] BE BASED ON THE PRIMARY CLINICAL RECORDS. [facility] [employer] [facility]. provides no warranty or guarantee of the accuracy or completeness of information in this document.
--- NOTE | 2024-01-26 06:14 | PC.NURSE ---
1st IV attempt with 20g angiocath to rt hand per Nurse Ground Host/Hostess, Malinda Quiñones Catheter withdrawn d/t pt site flushing slowly and pt c/o pain at site with flushing, no redness, coolness, or bruising noted to site. Pressure held to stop bleeding.
[2024-01-26 06:28] LABS: Basophils Percent Auto 0.3 % (0.2-2.0); Eosinophils Absolute Auto 0.1 10^3/uL (0.0-0.7); Eosinophils Percent Auto 1.4 % (0.9-7.0); Hematocrit 32.1 % (36.0-48.0); Hemoglobin 10.2 g/dL (12.0-16.0); Immature Granulocytes Abs Auto 0.05 10^3/uL (0.00-0.03); Immature Granulocytes Pct Auto 0.5 % (0.0-0.5); Lymphocytes Absolute Auto 1.6 10^3/uL (1.2-3.8); Lymphocytes Percent Auto 16.3 % (20.5-60.0); Mean Corpuscular HGB Conc 31.8 g/dL (29.9-35.2); Mean Corpuscular Volume 88.2 fL (81.0-99.0); Mean Platelet Volume 11.5 fL (9.5-13.5); Monocytes Absolute Auto 0.8 10^3/uL (0.3-0.8); Monocytes Percent Auto 8.2 % (1.7-12.0); Neutrophils Absolute Auto 7.3 10^3/uL (1.4-6.5); Neutrophils Percent Auto 73.3 % (43.0-75.0); Platelet Count 265 10^3/uL (150-450); Red Blood Count 3.64 10^6/uL (4.20-5.40); Red Cell Distribution Width 13.8 % (11.0-15.0); White Blood Count 9.9 10^3/uL (4.0-11.0)
[2024-01-26 06:38] LABS: Amphetamine Screen Urine NEGATIVE (NEGATIVE); Barbiturates Screen Urine NEGATIVE (NEGATIVE); Benzodiazepines Screen Urine NEGATIVE (NEGATIVE); Buprenorphine Screen Urine NEGATIVE (NEGATIVE); Cannabinoid Screen Urine NEGATIVE (NEGATIVE); Cocaine Screen Urine NEGATIVE (NEGATIVE); Methadone Screen Urine NEGATIVE (NEGATIVE); Methamphetamines Screen Urine NEGATIVE (NEGATIVE); Opiate Screen Urine NEGATIVE (NEGATIVE); Oxycodone Screen Urine NEGATIVE (NEGATIVE); Phencyclidine Screen Urine NEGATIVE (NEGATIVE); Tricyclic Antidepressant Urine NEGATIVE (NEGATIVE)
[2024-01-26] MEDS: 0.9 % SODIUM CHLORIDE 1,000 ML 1000 ML IV ×2 (07:00→07:41)
[2024-01-26] MEDS: FAMOTIDINE/PF 20 MG/2 ML VIAL IV (07:30)
[2024-01-26] MEDS: METOCLOPRAMIDE HCL 10 MG/2 ML VIAL IVP (07:30)
[2024-01-26] MEDS: CITRIC ACID/SODIUM CITRATE 30 ML SOLUTION ORACIT SHOHL'S SOLN PO (07:30)
[2024-01-26] MEDS: CEFAZOLIN SODIUM/DEXTROSE,ISO 2 GM/50 ML PIGGYBACK IV ×2 (07:41→14:02)
--- NOTE | 2024-01-26 08:41 | P.ON_ITS ---
Brief Operative Note Date of procedure: 01/26/24 Pre-op diagnosis general: iup at 39wks, lga, refusing trial of labor Post-op diagnosis: same as pre-op Procedure: NAME OF PROCEDURE: [ section ] PROCEDURE: Patient was taken back to the Operating Room where she was given a spinal anesthesia with Duramorph without difficulty. She was prepped and draped in the normal sterile fashion. A Pfannenstiel skin incision was then made 2 cm above the symphysis pubis and carried down to underlying rectus fascia using a Bovie. The fascia was incised in the midline and extended laterally using Summers scissors. Two Edilberto clamps were placed on the superior aspect of the fascia and dissected off the underlying rectus muscles. The same was performed on the inferior aspect as well. The muscles were then in the midline. Peritoneum was identified and entered bluntly. The peritoneum was then extended superiorly and inferiorly with good visualization of the bladder. The bladder blade was inserted. A low transverse incision was made on the patient's uterus and extended laterally digitally. The was then delivered atraumatically after the bladder blade was removed in the cephalic position. The cord was clamped and cut. Cord blood was obtained. The was handed off to awaiting team. The patient's placenta was spontaneously delivered. The uterus was then exteriorized. The uterus was cleared of all clots and debris. The bladder blade was reinserted. The patient's uterine incision was closed using #0 Vicryl in a running lock fashion. Excellent hemostasis was assured. The uterus was then returned to the patient's abdomen. The patient's abdomen was copiously irrigated using warm saline. Peritoneal gutters were cleared of all clots and debris. Again excellent hemostasis was assured. The patient's peritoneum was closed using 3-0 Vicryl in a running fashion. The patient's fascia was closed using #0 Vicryl in a running fashion. The patient's skin was closed using 4-0 Vicryl subcuticularly. The patient tolerated the procedure well. Sponge, lap, and needle counts were correct x2. The patient was taken to the Recovery Room in stable condition. Anesthesia: spinal Surgeon: Devyn Tello Hand Frame Surgical Elastic Knitter: Anisa Vergara Estimated blood loss (mL): 575 Pathology: other (placenta) Condition: stable Disposition: PACU Urinary Catheter Management Urinary Catheter Management Urethral: Cath placed during this visit: no
--- NOTE | 2024-01-26 08:44 | PM.OBPRCCS ---
Procedure Pre-op/Post-op diagnoses: Pre-Op/Post-Op Diagnoses Operation Date: 01/26/24 07:30 <No data on this case meets the specified criteria> Procedure: Procedures Operation Date: 01/26/24 07:30 Actual Procedure Side Surgeon p Not Applicable Devyn Tello DO Recreation Facility Manager: Anisa Vergara Estimated blood loss (mL): 575 Disposition: floor Anesthesia type: Spinal
[2024-01-26] MEDS: BUPIVACAINE HCL 0.5% PF 50 MG/10 ML VIAL INJ (09:00)
[2024-01-26] MEDS: 0.9 % SODIUM CHLORIDE 10 ML VIAL 30 ML INJ (09:00)
[2024-01-26] MEDS: BUPIVACAINE LIPOSOME/PF 266 MG/13.3 ML VIAL INJ (09:00)
[2024-01-26] MEDS: OXYTOCIN/0.9 % SODIUM CHLORIDE 20 UNITS/1,000 ML PLAST..BAG 125 UNIT IV (09:37)
--- NOTE | 2024-01-26 11:45 | PC.NURSE ---
RN to room to assist with . Patient is tearful, but relaxes with words of affirmation and encouragement. baby to breast, latches easily and begins suckling. copious amounts of milk noted, easily expressed as baby latches. deep sucks and swallows noted almost immediately. assisted with positioning baby comfortably, mom reassured. will return to check on mom and baby
[2024-01-26] MEDS: ONDANSETRON PF 4 MG/2 ML VIAL IV (12:18)
--- NOTE | 2024-01-26 16:30 | PC.NURSE ---
Patient extremely tearful with feeds, describes intense pain with latching . patient expresses severe anxiety with feeds and difficulty with latching baby. RN to room to assist. baby calm, rooting, awake and alert, skin to skin with mom. encouraged hand expressing to latch baby, baby with wide gap reflex and latches easily in cross cradle and football position. patient expresses severe pain and inability to keep baby at breast. nipple shield to room to assist, education provided. patient cries even more and states, That thing makes it 10x worse. she has to get off my nipple. reassurance and support provided, RN takes baby off breast. Baby rooting and eager to eat. RN suggests feeding baby expressed colostrum from fridge that patient brought on admission. patient cries and states, But I have the milk now, and she should just breastfeed it's just so painful I can't do it I need help. RN holds baby to breast for duration of feed, patient tearful but calms after a few minutes of baby feeding with reassurance and support.
[2024-01-26] MEDS: KETOROLAC TROMETHAMINE 30 MG/ML VIAL IVP (16:41)
[2024-01-26] MEDS: ACETAMINOPHEN 500 MG TABLET 1000 MG PO (17:07)
[2024-01-26] MEDS: ENOXAPARIN SODIUM 40 MG/0.4 ML SYRINGE SUBQ (21:57)
[2024-01-27] MEDS: ACETAMINOPHEN 500 MG TABLET 1000 MG PO ×3 (04:13→20:58)
[2024-01-27 04:17] VITALS: BP 136/64; PULSE 96
[2024-01-27 05:33] LABS: Basophils Percent Auto 0.2 % (0.2-2.0); Eosinophils Absolute Auto 0.1 10^3/uL (0.0-0.7); Eosinophils Percent Auto 0.5 % (0.9-7.0); Hematocrit 26.6 % (36.0-48.0); Hemoglobin 8.4 g/dL (12.0-16.0); Immature Granulocytes Abs Auto 0.06 10^3/uL (0.00-0.03); Immature Granulocytes Pct Auto 0.4 % (0.0-0.5); Lymphocytes Absolute Auto 2.1 10^3/uL (1.2-3.8); Lymphocytes Percent Auto 14.5 % (20.5-60.0); Mean Corpuscular HGB Conc 31.6 g/dL (29.9-35.2); Mean Corpuscular Hemoglobin 28.8 pg (26.7-34.0); Mean Corpuscular Volume 91.1 fL (81.0-99.0); Mean Platelet Volume 11.7 fL (9.5-13.5); Monocytes Absolute Auto 1.1 10^3/uL (0.3-0.8); Monocytes Percent Auto 7.7 % (1.7-12.0); Neutrophils Absolute Auto 11.4 10^3/uL (1.4-6.5); Neutrophils Percent Auto 76.7 % (43.0-75.0); Platelet Count 255 10^3/uL (150-450); Red Blood Count 2.92 10^6/uL (4.20-5.40); White Blood Count 14.8 10^3/uL (4.0-11.0)
--- NOTE | 2024-01-27 07:42 | PM.OBPN ---
OB - PN: Subj Subjective Patient comments: no complaints and pain well controlled [place] status: doing well Exam Constitutional Vital Signs, click to edit/add: Last Vital Signs Temp 98.8 F 01/26/24 21:53 Pulse 96 H 01/27/24 04:17 Resp 19 01/26/24 11:50 BP 136/64 01/27/24 04:17 Pulse Ox 95 01/26/24 11:50 O2 Del Method Room Air 01/27/24 04:15 Documenting provider has reviewed patient's vital signs: yes Common normals: no apparent distress Respiratory Common normals: clear to auscultation bilaterally Cardio Common normals: regular rate and regular rhythm GI Common normals: Normal to inspection, nondistended, normoactive bowel sounds present Extremity Common normals: no clubbing, cyanosis or edema and no calf tenderness Results Labs Labs: Short CBC 01/27/24 Range/Units 05:16 WBC 14.8 H (4.0-11.0) 10^3/uL Hgb 8.4 L (12.0-16.0) g/dL Hct 26.6 L (36.0-48.0) % Plt Count 255 (150-450) 10^3/uL Urinary Catheter Management Urinary Catheter Management Urethral: Cath placed during this visit: no OB - PN: A/P Plan - day: 1 Plan: routine postop care Time Spent with Patient Time: Total time spent is greater than 50% in coordination of care (as documented) at patient's floor/unit and/or counseling patient: Total time spent with greater than 50% in coordination of care (as documented) at patient's floor/unit and/or counseling patient: less than 15 minutes
[2024-01-27 08:34] VITALS: TEMP 37.1
[2024-01-27] MEDS: DOCUSATE SODIUM 100 MG CAPSULE PO ×2 (08:37→20:58)
[2024-01-27] MEDS: IBUPROFEN 400 MG TABLET 800 MG PO ×2 (08:37→16:42)
[2024-01-27 08:39] VITALS: BP 125/64; PULSE 81
[2024-01-27 16:40] VITALS: TEMP 36.9
[2024-01-27 16:42] VITALS: BP 132/65; PULSE 83
[2024-01-27] MEDS: ENOXAPARIN SODIUM 40 MG/0.4 ML SYRINGE SUBQ (20:59)
[2024-01-28 00:30] VITALS: TEMP 36.6
[2024-01-28] MEDS: IBUPROFEN 400 MG TABLET 800 MG PO ×4 (00:31→22:24)
[2024-01-28 00:32] VITALS: BP 127/76; PULSE 88
[2024-01-28] MEDS: ACETAMINOPHEN 500 MG TABLET 1000 MG PO (06:34)
--- NOTE | 2024-01-28 08:16 | P.OBPN_ITS ---
OB - PN: Subj Subjective Patient comments: no complaints [place] status: doing well Exam Constitutional Vital Signs, click to edit/add: Last Vital Signs Temp 97.8 F 01/28/24 00:30 Pulse 88 01/28/24 00:32 Resp 16 01/28/24 00:30 BP 127/76 01/28/24 00:32 Pulse Ox 95 01/26/24 11:50 O2 Del Method Room Air 01/28/24 00:30 Documenting provider has reviewed patient's vital signs: yes Common normals: no apparent distress and oriented x3 General appearance: cooperative Orientation/consciousness: Yes awake, Yes oriented to person, Yes oriented to place and Yes oriented to time HENMT Common normals: normocephalic Eye Common normals: EOMs intact bilaterally Neck & C-Spine Common normals: no lymphadenopathy General: normal visual inspection and trachea midline Lymph Lymphatic: no lymphadenopathy noted Chest Common normals: inspection of chest normal Respiratory Common normals: normal respiratory effort Effort & inspection: able to speak in complete sentences Auscultation: clear to auscultation bilaterally Cardio Common normals: regular rate and regular rhythm Rate: regular rate Rhythm: regular rhythm GI Common normals: Normal to inspection, nondistended, normoactive bowel sounds present and soft to palpation Inspection: normal to inspection Auscultation: normoactive bowel sounds Palpation: soft Common normals: no CVA tenderness Back & Pelvis Common normals: no CVA tenderness Extremity Common normals: normal to inspection Neuro Common normals: oriented x3 Sensorium/orientation: awake, alert, oriented to person, oriented to place and oriented to time Psych Attitude: calm Speech: normal speech Thought process: normal thought process Urinary Catheter Management Urinary Catheter Management Urethral: Cath placed during this visit: no OB - PN: A/P Plan - day: 2 Plan: routine postop care Time Spent with Patient Time: Total time spent is greater than 50% in coordination of care (as documented) at patient's floor/unit and/or counseling patient: Total time spent with greater than 50% in coordination of care (as documented) at patient's floor/unit and/or counseling patient: less than 15 minutes
[2024-01-28] MEDS: DOCUSATE SODIUM 100 MG CAPSULE PO (08:21)
[2024-01-28 08:24] VITALS: BP 150/69; PULSE 100; TEMP 36.1
[2024-01-28 16:20] VITALS: BP 142/81; PULSE 103
[2024-01-28 16:29] VITALS: TEMP 36.8
--- NOTE | 2024-01-28 18:49 | RESP.RT ---
Done per nursing
[2024-01-28] MEDS: ENOXAPARIN SODIUM 40 MG/0.4 ML SYRINGE SUBQ (22:27)
[2024-01-29 00:05] VITALS: TEMP 36.6
[2024-01-29 00:06] VITALS: BP 125/63; PULSE 88
[2024-01-29] MEDS: IBUPROFEN 400 MG TABLET 800 MG PO (06:13)
--- NOTE | 2024-01-29 09:04 | SWNOTE1 ---
SW consulted for [place] application and pt's mental health/anxiety. SW spoke with nursing on 01/28/24. Initially pt was having anxiety after her in regards to caring for baby. Today and yesterday pt was doing better and more relaxed in regards to caring for baby. Pt also discontinued breast feeding, which seemed to help as well. SW met with pt and father of baby. Pt voiced she is doing really well and baby is doing well too. SW asked about pt getting [place]. Pt has [employer] for insurance. She stated WIC called her already last week and let her know to call once baby arrives. Pt called yesterday, but they were closed. Pt will call again today. [facility] had told her over the phone she automatically qualifies as she has [employer], she just needs to fill out paperwork. SW asked pt how she was feeling mentally and physically. Pt voiced she is feeling well. She stated she is feeling less anxious now that she is bottle feeding. She stated breast feeding was not going well and it was overwhelming her. Once she stopped she feels more relaxed. Pt stated she felt she was not really prepared for the and that was a lot for her. She stated her blood pressure was fluctuating and she just did not feel well after . Pt also voiced she was nervous about keeping track of everything such as; when baby was last fed, if diaper needs changed, etc. 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 Pt stated she is feeling more comfortable with everything and knows she will be able to care for baby at home. SW, pt, and father of baby spoke about post depression. SW also asked about support system, they both voiced there mothers are close by and good support. At this time no other needs or resources needed.
[2024-01-29 09:51] VITALS: BP 140/83; PULSE 106; TEMP 36.7
--- NOTE | 2024-01-29 11:02 | PM.OBDS ---
DS: Providers Provider Date of admission: 01/26/24 05:22 Primary care physician: ADRYAN MOORE Admitting clinician: Devyn Tello Attending physician on admission: Devyn Tello Consults: 01/26/24 Consult to Anesthesiology Routine Consulting Provider: Daniel Valverde Reason for consultation: surgery Has provider been notified: No 01/27/24 Consult to Healthcare Educator Routine Has provider been notified: Yes Reason for consult:: Mental Health Other Other reason:: WIC assistance, severe anxiety Attending physician on discharge: Sofia Shahid Discharging clinician: Sofia Shahid Anticipated date of discharge: 01/29/24 DS: Diagnosis Discharge Diagnosis (1) Delivery by section: Assessment and plan: VSS NORMAL. CLINICAL EXAM NONFOCAL. BLOOD PRESSURES OCCASIONALLY ELEVATED BUT ATTRIBUTE TO HIGH ANXIETY .... NO HISTORY OF BLOOD PRESSURE ISSUE. HAS FOLLOW UP THURSDAY WITH DR. TELLO. Plan DISCHARGE HOME. FOLLOW UP THURSDAY WITH DR. TELLO. INSTRUCTIONS GIVEN. SCRIPTS PROVIDED FOR IRON AND IBUPROFEN. OB - DS: Summary Hospital Course Hospital Course: UNCOMPLICATED Time spent discussing smoking cessation with patient: more than 10 minutes Peripartum Data - Procedures: Procedures Operation Date: 01/26/24 07:30 Actual Procedure Side Surgeon p Not Applicable Devyn Tello DO Peripartum Data - Vaginal Delivery Procedures: Procedures Operation Date: 01/26/24 07:30 Actual Procedure Side Surgeon p Not Applicable Devyn Tello DO Complications complications: none Infant Delivery method: section Gender: female Discharge plan: home Status at Discharge Cognitive/behavioral status at discharge: WNL Functional status at discharge: independent ambulation Overall status at discharge: patient is progressing back to baseline Time Spent with Patient Time attestation: Total time spent providing and/or coordinating discharge services: Time spent: less than 30 minutes Specific discharge activities: NO INTERCOURSE FOR SIX WEEKS, WALKING ONLY EXERCISE FOR SIX WEEKS, MAY CLIMB STAIRS, NO SWIMMING FOR 4 WEEKS, MAY SHOWER, NO BATHTUB FOR 4 WEEKS, SPORTS BRA ON 20/04 TO INHIBIT MILK PRODUCTION BOTTLE FEEDING, CALL FOR PROBLEM OR CONCERN. GENERAL COVID AND RSV PRECAUTIONS GIVEN. Exam Narrative Exam Narrative: VOICING NO COMPLAINTS Constitutional Vital Signs, click to edit/add: Last Vital Signs Temp 97.9 F 01/29/24 00:05 Pulse 106 H 05/03/24 09:51 Resp 18 01/29/24 00:05 BP 140/83 01/29/24 09:51 Pulse Ox 95 01/26/24 11:50 O2 Del Method Room Air 01/29/24 00:05 Documenting provider has reviewed patient's vital signs: yes Common normals: no apparent distress General appearance: cooperative, comfortable, well kempt and well developed Nutritional appearance: overweight Orientation/consciousness: Yes awake, Yes oriented to person, Yes oriented to place and Yes oriented to time HENMT Common normals: normocephalic and head/scalp atraumatic Eye Pupil: PERRL and accommodation reflex normal Neck & C-Spine Common normals: full ROM and supple Respiratory Common normals: normal respiratory effort Cardio Common normals: regular rate and regular rhythm GI Common normals: Normal to inspection, nondistended, normoactive bowel sounds present, soft to palpation and non-tender Common normals: no CVA tenderness Back & Pelvis Common normals: no thoracic nor lumbar tenderness Extremity Common normals: normal to inspection, full ROM and no calf tenderness Neuro Common normals: oriented x3, CN's II-XII intact bilaterally, moves all extremities, no focal motor deficits and no sensory deficits noted Sensorium/orientation: awake, alert, oriented to person, oriented to place and oriented to time Psych Common normals: mental status grossly normal, thought process normal, cooperative, affect normal and speech normal Discharge Plan Discharge Disposition: Home, Self-Care Condition: Good Assessment: VSS NORMAL, CLINICAL EXAM NONFOCAL, BOTTLE FEEDING, HAS GOOD SUPPORTS AT HOME, OCCASIONAL ELEVATED BP'S BUT NOT HYPERTENSION, LIKELY RELATED TO HIGH ANXIETY STATE, S/P SOCIAL SERVICE CONSULT FOR ANXIETY DISORDER, INSTRUCTIONS FOR POST CS GIVEN, ALL QUESTIONS ANSWERED WITH STATED UNDERSTANDING Plan of Treatment: HAS FOLLOW UP THURSDAY WITH DR. TELLO. HOME GOING INSTRUCTIONS GIVEN BY NURSING. ONLY REQUIRING IBUPROFEN FOR PAIN. WILL SEND HOME ON IRON. Discharge Medications: Discontinued Complete 14 mg iron- 400 mcg tablet 1 tab PO DAILY Activity: increase activity as tolerated Activity Detail: SEE ACTIVITY PREVIOUSLY LISTED Diet: regular diet Print Language: Hungarian Patient Instructions: (DC) Forms: Portal Instructions Follow Up Appointments: SEES DR. TELLO THURSDAY Discharge location: HOME
== END 2024-01-29 13:00 | disposition home or self-care (01) | DRG 540 ==
PROVIDERS: Admitting Provider Obstetrics & Gynecology; PCP Family Medicine; Visit Provider Obstetrics & Gynecology
PROC: 10D00Z1 Extraction of Products of Conception, Low, Open Approach (ICD-10-PCS; CPT 59514; principal; 2024-01-26 07:30)
DX: O36.63X0 Maternal care for excessive fetal growth, third trimester, not applicable or unspecified (principal); Z3A.39 39 weeks gestation of pregnancy; Z37.0 Single live birth; O99.334 Smoking (tobacco) complicating childbirth; F17.290 Nicotine dependence, other tobacco product, uncomplicated; O99.345 Other mental disorders complicating the puerperium; F41.9 Anxiety disorder, unspecified
CPT/HCPCS: 36415; 64488; 80307; 85025; 86850; 86900; 86901; 94667; 96372; 96374; 96375; J1094

== ENCOUNTER 2024-05-20 18:54 | Emergency (ER) | payer OTHER, SELFPAY ==
[2024-05-20 19:00] VITALS: BP 134/94; PULSE 99; TEMP 36.7; O2SAT 99; BMI 34.9
--- OUTSIDE RECORDS SUMMARY | 2024-05-20 19:05 | XMS_ITS | CCD ---
Author Organization [facility] Care Team Providers Care Children Librarian Name Role Phone Deonna Back Unavailable ADRYAN MARIE Primary Care Physician LESLEY, DR LUIS ANTONIO Jorge Consulting Unavailable LESLEY, DR LUIS ANTONIO Jorge Attending Unavailable DEFRANCE, DR CORNELIUS Primary Care Unavailable LESLEY, DR LUIS ANTONIO Jorge Admitting Unavailable DEFRANCE, DR CORNELIUS Primary Care Unavailable CARLOS, DIETER Admitting Unavailable DIETER GONZALEZ Attending Unavailable CHIKA LEOS Consulting Unavailable BRENNANRANCE, DR CORNELIUS Primary Care Unavailable PATEL, DR BOLAÑOS Consulting Unavailable EBTTY, DR ESPINOZA Attending Unavailable BETTY, DR ESPINOZA [...] Attending Unavailable CARLOS, DIETER Admitting Unavailable Defrance MD, Adryan T Primary Care Provider DERIC, CYDNEY Attending Unavailable DERIC, CYDNEY Attending Unavailable OMER, DEVAN Attending Unavailable DERIC, CYDNEY Attending Unavailable OMER, DEVAN Attending Unavailable DERIC, CYDNEY Attending Unavailable OMER, DEVAN Attending Unavailable DERIC, CYDNEY Attending Unavailable OMER, DEVAN Attending Unavailable DERIC, CYDNEY Attending Unavailable OMER, DEVAN Attending Unavailable DERIC, CYDNEY Attending Unavailable OMER, DEVAN Attending Unavailable OMER, DEVAN Attending Unavailable Allergies Allergy Classification Reported Allergen(s) Allergy Type Date of Onset Reaction(s) Facility (3 sources) Sulfacetamide Drug Allergy rash [facility] Other (1 source) Sulfonamides (Antibiotic); Translations: [sulfa drugs] Drug allergy Hyperpyrexia (finding) [facility] (1 source) Sulfonamides (Antibiotic) Drug allergy (disorder) 07-26-20 14 [facility] (3 sources) Sulfonamides (Antibiotic) Drug Intolerance [...] BY MOUTH EVERY MORNING 0 10/06/2023 Active FH-Gir-EZ-Norton-3 ( Gummies/DHA & FA) 0.4-32.5 MG chewable tablet (3 sources) Start: 06-19-2023 End: 06-18-2024 AO-Inp-TF-Norton-3 ( Gummies/DHA & FA) 0.4-32.5 MG chewable tablet Indications: Missed menses Chew 32.5 mg in the morning. 30 tablet 11 06/19/2023 06/18/2024 Active Completed/Discontinued Medications Medication Drug Class(es) Dates Sig (Normalized) Sig (Original) [id number] 200 actuat albuterol 0.09 mg/actuat metered dose [...] / neomycin 3.5 mg/ml / polymyxin b [id number] unt/ml otic suspension (3 sources) Aminoglycoside Antibacterial, Polymyxin-class Antibacterial, Corticosteroid Start: 04-02-2022 Neomycin-Polymyx in-HC [id number] 3 drops left ear Three times a [...] UA Negative Negative - 4(70) +++ mg/dL [facility] Blood, UA Negative Negative - 50 Cedric/mcL [facility] Clarity, UA Clear [facility] re Color, UA Yellow [facility] e Glucose, UA Negative Negative - 1999(110) ++++ mg/dL [facility] Interpretation and review of laboratory results Normal [facility] Ketones, UA Negative Negative - 160(16) ++++ mg/dL [facility] Leukocytes, UA Negative Negative - 500+++ Alessandro/mcL [facility] Nitrite, UA Negative Negative - Positive [facility] pH, UA 6.0 5 - 9 [facility] e Protein, UA Negative Negative - 1999(20) ++++ mg/dL [facility] Spec Grav, UA 1.020 1 - 1.03 [facility] Urobilinogen, UA 0.2 0.2 - 12 mg/dL [facility] ALL CBC WITH AUTO DIFFon BASOPHILS ABSOLUTE AUTO 0.0 [facility] Basophils/100 WBC (Bld) 0.3 % 0.2 - 2.0 % [facility] Eosinophils/100 WBC (Bld) 1.0 % 0.9 - 7.0 % [facility] Erythrocyte distribution width (RBC) [Ratio] 12.5 % 11.0 - 15.0 % [facility] Hematocrit (Bld) [Volume fraction] 35.1 % Low 36.0 - 48.0 % [facility] Hemoglobin (Bld) [Mass/Vol] 11.7 g/dL Low 12.0 - 16.0 g/dL [facility] IMMATURE GRANULOCYTES ABS AUTO 0.08 High [facility] Immature granulocytes/100 WBC (Bld) 0.6 % High 0.0 - 0.5 % [facility] Interpretation and review of laboratory results Abnormal [facility] LYMPHOCYTES ABSOLUTE AUTO 1.6 [facility] Lymphocytes/100 WBC (Bld) 11.9 % Low 20.5 - 60.0 % [facility] MCH (RBC) [Entitic mass] 30.7 pg 26.7 - 34.0 pg [facility] MCHC (RBC) [Mass/Vol] 33.3 g/dL 29.9 - 35.2 g/dL [facility] MCV (RBC) [Entitic vol] 92.1 fL 81.0 - 99.0 fL [facility] MONOCYTES ABSOLUTE AUTO 0.8 [facility] Monocytes/100 WBC (Bld) 5.5 % 1.7 - 12.0 % [facility] NEUTROPHILS ABSOLUTE AUTO 11.1 High [facility] Neutrophils/100 WBC (Bld) 80.7 % High 43.0 - 75.0 % [facility] Platelet mean volume (Bld) [Entitic vol] 10.6 fL 9.5 - 13.5 fL [facility] are [facility] EO # 0.1 [facility] PLT 292 [facility] TB RBC 3.81 Low [facility] TBH WBC 13.8 High [facility] CBC AUTO DIFFon 09-14-2022 BASO # 0.0 103/ul Normal 0.0-0.1 [facility] Comment on above: Performed By: #### B MP, TSH #### [facility] [address] [address] [address] Reema Mireles Basophils/100 WBC (Bld) 0.6 % Normal 0.2-2.0 [facility] Comment on above: Performed By: #### B MP, TSH #### [facility] [address] [place], [place] [address] Dr. Reema Mireles EO # 0.0 103/ul Normal 0.0-0.7 [facility] Comment on above: Performed By: #### B MP, TSH #### [facility] [address] [place] [address] Dr. Reema Mireles Eosinophils/100 WBC (Bld) 0.6 % Critically low 0.9-7.0 [facility] Comment on above: Performed By: #### B MP, TSH #### [facility] [address] [place] [address] Dr. Reema Mireles Erythrocyte distribution width (RBC) [Ratio] 11.9 % Normal 11.0-15.0 [facility] Comment on above: Performed By: #### B GURPREET, TSH #### [facility] [address] [place] [address] Dr. Reema Mireles Hematocrit (Bld) [Volume fraction] 37.8 % Normal 36.0-48.0 [facility] Comment on above: Performed By: #### B GURPREET, TSH #### [facility] [address] [place] [address] Dr. Reema Mireles Hemoglobin (Bld) [Mass/Vol] 13.5 g/dL Normal 12.0-16.0 [facility] Comment on above: Performed By: #### B GURPREET, TSH #### [facility] [address] [place] [address] Dr. Reema Mireles IG # 0.01 10e3/ul Normal 0.00-0.03 [facility] Comment on above: Performed By: #### B GURPREET, TSH #### [facility] [address] [place] [address] Dr. Reema Mireles IG % 0.2 % Normal 0.0-0.5 [facility] Comment on above: Performed By: #### B MP, TSH #### [facility] [address] [place] [address] Dr. Reema Mireles LYMPH # 1.6 103/ul Normal 1.2-3.8 [facility] Comment on above: Performed By: #### B GURPREET, TSH #### [facility] [address] [place] [address] Dr. Reema Mireles Lymphocytes/100 WBC (Bld) 25.5 % Normal 20.5-60.0 [facility] Comment on above: Performed By: #### B MP, TSH #### [facility] [address] [place] [address] Dr. Reema Mireles MANUAL DIFF REQ NO Normal [facility] Comment on above: Performed By: #### B MP, TSH #### [facility] [address] [place] [address] Dr. Reema Mireles MCH (RBC) [Entitic mass] 30.9 pg Normal 26.7-34.0 [facility] Comment on above: Performed By: #### B GURPREET, TSH #### [facility] [address] [place] [address] Dr. Reema Mireles MCHC (RBC) [Mass/Vol] 35.7 g/dL Critically high 29.9-35.2 [facility] Comment on above: Performed By: #### B GURPREET, TSH #### [facility] [address] [place] [address] Dr. Reema Mireles MCV (RBC) [Entitic vol] 86.5 fL Normal 81.0-99.0 [facility] Comment on above: Performed By: #### B GURPREET, TSH #### [facility] [address] [place] [address] Dr. Remea Mireles MONO # 0.5 103/ul Normal 0.3-0.8 [facility] Comment on above: Performed By: #### B GURPREET, TSH #### [facility] [address] [place] [address] Dr. Reema Mireles Monocytes/100 WBC (Bld) 8.5 % Normal 1.7-12.0 [facility] Comment on above: Performed By: #### B GURPREET, TSH #### [facility] [address] [place] [address] Dr. Reema Mireles NEUT # 4.1 103/ul Normal 1.4-6.5 [facility] Comment on above: Performed By: #### B GURPREET, TSH #### [facility] [address] [place] [address] Dr. Reema Mireles Neutrophils/100 WBC (Bld) 64.6 % Normal 43.0-75.0 [facility] Comment on above: Performed By: #### B GURPREET, TSH #### [facility] [address] [place] [address] Dr. Reema Mireles Platelet mean volume (Bld) [Entitic vol] 9.9 fL Normal 9.5-13.5 [facility] Comment on above: Performed By: #### B GURPREET, TSH #### [facility] [address] [place] [address] Dr. Reema Mireles PLT 403 103/ul Normal 150-450 [facility] Comment on above: Performed By: #### B GURPREET, TSH #### [facility] [address] [place] [address] Dr. Reema Mireles RBC 4.37 106/ul Normal 4.20-5.40 [facility] Comment on above: Performed By: #### B GURPREET, TSH #### [facility] [address] [place] [address] Dr. Reema Mireles WBC 6.3 103/ul Normal 4.0-11.0 [facility] Comment on above: Performed By: #### B GURPREET, TSH #### [facility] [address] [place] [address] Dr. Reema Mireles PROF 14(COMP METB)on 09-14- 022 Albumin [Mass/Vol] 4.3 g/dL Normal 3.4-5.0 [facility] Comment on above: Performed By: #### B GURPREET, TSH #### [facility] [address] [place] [address] Dr. Reema Mireles Albumin/Globulin [Mass ratio] 1.2 {ratio} Normal [facility] Comment on above: Performed By: #### B GURPREET, TSH #### [facility] [address] [place] [address] Dr. Reema Mireles ALP [Catalytic activity/Vol] 79 U/L Normal 46-116 [facility] Comment on above: Performed By: #### B GURPREET, TSH #### [facility] [address] [place] [address] Dr. Reema Mireles ALT [Catalytic activity/Vol] 31 U/L Normal 14-59 [facility] Comment on above: Performed By: #### B GURPREET, TSH #### [facility] [address] [address] [address] Reema Mireles Anion gap [Moles/Vol] 12.1 mmol/L Normal [facility] Comment on above: Performed By: #### B GURPREET, TSH #### [facility] [address] [address] [address] Reema Mireles AST [Catalytic activity/Vol] 17 U/L Normal 15-37 [facility] Comment on above: Performed By: #### B GURPREET, TSH #### [facility] [address] [place] [address] Dr. Reema Mireles Bilirubin [Mass/Vol] 0.4 mg/dL Normal 0.2-1.0 [facility] Comment on above: Performed By: #### B GURPREET, TSH #### [facility] [address] [place] [address] Dr. Reema Mireles Calcium [Mass/Vol] 8.9 mg/dL Normal 8.5-10.1 [facility] Comment on above: Performed By: #### B GURPREET, TSH #### [facility] [address] [place] [address] Dr. Reema Mireles Chloride [Moles/Vol] 98 mmol/L Normal 98-107 [facility] Comment on above: Performed By: #### B GURPREET, TSH #### [facility] [address] [place] [address] Dr. Reema Mireles CO2 [Moles/Vol] 27.0 mmol/L Normal 21.0-32.0 [facility] Comment on above: Performed By: #### B GURPREET, TSH #### [facility] [address] [place] [address] Dr. Reema Mireles Creatinine [Mass/Vol] 0.65 mg/dL Normal 0.55-1.02 [facility] Comment on above: Performed By: #### B GURPREET, TSH #### [facility] [address] [place] [address] Dr. Reema Mireles EGFR-AF MONEGASQUE >60 Normal >=60 [facility] Comment on above: Performed By: #### B MP, TSH #### [facility] [address] [place] [address] Dr. Reema Mireles EGFR-NON AF MONEGASQUE >60 Normal >=60 [facility] Comment on above: Performed By: #### B MP, TSH #### [facility] [address] [address] [address] Reema Mireles Globulin (S) [Mass/Vol] 3.5 g/dL Normal [facility] Comment on above: Performed By: #### B MP, TSH #### [facility] [address] [place] [address] Dr. Reema Mireles Glucose [Mass/Vol] 106 mg/dL Normal 74-106 [facility] Comment on above: Performed By: #### B MP, TSH #### [facility] [address] [place] [address] Dr. Reema Mireles Potassium [Moles/Vol] 3.1 mmol/L Critically low 3.5-5.1 [facility] Comment on above: Performed By: #### B MP, TSH #### [facility] [address] [place] [address] Dr. Reema Mireles Protein [Mass/Vol] 7.8 g/dL Normal 6.4-8.2 [facility] Comment on above: Performed By: #### B MP, TSH #### [facility] [address] [place] [address] Dr. Reema Mireles Sodium [Moles/Vol] 134 mmol/L Critically low 136-145 [facility] Comment on above: Performed By: #### B MP, TSH #### [facility] [address] [place] [address] Dr. Reema Mireles Urea nitrogen [Mass/Vol] 6.0 mg/dL Critically low 7.0-18.0 [facility] Comment on above: Performed By: #### B MP, TSH #### [facility] [address] [place] [address] Dr. Reema Mireles Urea nitrogen/Creatinine [Mass ratio] 9.2 mg/mg Normal [facility] Comment on above: Performed By: #### B GURPREET, TSH #### [facility] [address] [place] [address] Dr. Reema Mireles ACETONE SERUMon 08-11-2022 ACETONE Negative Normal NEGATIVE [facility] Comment on above: Performed By: #### B GURPREET, TSH #### [facility] [address] [place] [address] Dr. Reema Mireles CBC AUTO DIFFon 08-11-2022 BASO # 0.1 103/ul Normal 0.0-0.1 [facility] Comment on above: Performed By: #### B GURPREET, TSH #### [facility] [address] [place] [address] Dr. Reema Mireles Basophils/100 WBC (Bld) 0.5 % Normal 0.2-2.0 [facility] Comment on above: Performed By: #### B GURPREET, TSH #### [facility] [address] [place] [address] Dr. Reema Mireles EO # 0.1 103/ul Normal 0.0-0.7 [facility] Comment on above: Performed By: #### B GURPREET, TSH #### [facility] [address] [place] [address] Dr. Reema Mireles Eosinophils/100 WBC (Bld) 0.7 % Critically low 0.9-7.0 [facility] Comment on above: Performed By: #### B GURPREET, TSH #### [facility] [address] [place] [address] Dr. Reema Mireles Erythrocyte distribution width (RBC) [Ratio] 11.7 % Normal 11.0-15.0 [facility] Comment on above: Performed By: #### B GURPREET, TSH #### [facility] [address] [place] [address] Dr. Reema Mireles Hematocrit (Bld) [Volume fraction] 37.6 % Normal 36.0-48.0 [facility] Comment on above: Performed By: #### B GURPREET, TSH #### [facility] [address] [place] [address] Dr. Reema Mireles Hemoglobin (Bld) [Mass/Vol] 13.1 g/dL Normal 12.0-16.0 [facility] Comment on above: Performed By: #### B MP, TSH #### [facility] [address] [place] [address] Dr. Reema Mireles IG # 0.02 10e3/ul Normal 0.00-0.03 [facility] Comment on above: Performed By: #### B MP, TSH #### [facility] [address] [place] [address] Dr. Reema Mireles IG % 0.2 % Normal 0.0-0.5 [facility] Comment on above: Performed By: #### B MP, TSH #### [facility] [address] [place] [address] Dr. Reema Mireles LYMPH # 2.7 103/ul Normal 1.2-3.8 [facility] Comment on above: Performed By: #### B MP, TSH #### [facility] [address] [place] [address] Dr. Reema Mireles Lymphocytes/100 WBC (Bld) 28.5 % Normal 20.5-60.0 [facility] Comment on above: Performed By: #### B MP, TSH #### [facility] [address] [place] [address] Dr. Reema Mireles MANUAL DIFF REQ NO Normal [facility] Comment on above: Performed By: #### B MP, TSH #### [facility] [address] [place] [address] Dr. Reema Mireles MCH (RBC) [Entitic mass] 30.3 pg Normal 26.7-34.0 [facility] Comment on above: Performed By: #### B MP, TSH #### [facility] [address] [place] [address] Dr. Reema Mireles MCHC (RBC) [Mass/Vol] 34.8 g/dL Normal 29.9-35.2 [facility] Comment on above: Performed By: #### B MP, TSH #### [facility] [address] [address] [address] Reema Mireles MCV (RBC) [Entitic vol] 87.0 fL Normal 81.0-99.0 [facility] Comment on above: Performed By: #### B MP, TSH #### [facility] [address] [place] [address] Dr. Reema Mireles MONO # 0.8 103/ul Normal 0.3-0.8 [facility] Comment on above: Performed By: #### B MP, TSH #### [facility] [address] [place] [address] Dr. Reema Mireles Monocytes/100 WBC (Bld) 8.2 % Normal 1.7-12.0 [facility] Comment on above: Performed By: #### B MP, TSH #### [facility] [address] [place] [address] Dr. Reema Mireles NEUT # 5.9 103/ul Normal 1.4-6.5 [facility] Comment on above: Performed By: #### B MP, TSH #### [facility] [address] [place] [address] Dr. Reema Mireles Neutrophils/100 WBC (Bld) 61.9 % Normal 43.0-75.0 [facility] Comment on above: Performed By: #### B MP, TSH #### [facility] [address] [place] [address] Dr. Reema Mireles Platelet mean volume (Bld) [Entitic vol] 10.2 fL Normal 9.5-13.5 [facility] Comment on above: Performed By: #### B MP, TSH #### [facility] [address] [place] [address] Dr. Reema Mireles PLT 382 103/ul Normal 150-450 [facility] Comment on above: Performed By: #### B MP, TSH #### [facility] [address] [place] [address] Dr. Reema Mireles RBC 4.32 106/ul Normal 4.20-5.40 [facility] Comment on above: Performed By: #### B MP, TSH #### [facility] [address] [place] [address] Dr. Reema Mireles WBC 9.6 103/ul Normal 4.0-11.0 [facility] Comment on above: Performed By: #### B GURPREET, TSH #### [facility] [address] [place] [address] Dr. Reema Mireles CRPon 08-11-2022 CRP [Mass/Vol] mg/L Normal <=1.0 [facility] Comment on above: Performed By: #### B MP, TSH #### [facility] [address] [place] [address] Dr. Reema Mireles ER URINE PROFILEon Bilirubin Ql (U) Negative Normal NEGATIVE [facility] Comment on above: Performed By: #### B GURPREET, TSH #### [facility] [address] [place] [address] Dr. Reema Mireles Clarity (U) CLEAR Normal CLEAR [facility] Comment on above: Performed By: #### B GURPREET, TSH #### [facility] [address] [place] [address] Dr. Reema Mireles Color (U) LT. YELLOW Normal YELLOW [facility] Comment on above: Performed By: #### B GURPREET, TSH #### [facility] [address] [place] [address] Dr. Reema ELIZALDE A micrscopic examination will be performed if indicated. Normal [facility] Comment on above: Performed By: #### B GURPREET, TSH #### [facility] [address] [place] [address] Dr. Reema Mireles Glucose Ql (U) Negative Normal NEGATIVE [facility] Comment on above: Performed By: #### B GURPREET, TSH #### [facility] [address] [place] [address] Dr. Reema Mireles Hemoglobin Ql (U) Negative Normal NEGATIVE [facility] Comment on above: Performed By: #### B GURPREET, TSH #### [facility] [address] [place] [address] Dr. Reema Mireles Ketones Ql (U) Negative Normal NEGATIVE [facility] Comment on above: Performed By: #### B MP, TSH #### [facility] [address] [place] [address] Dr. Reema Mireles LEUKOCYTES Negative Normal NEGATIVE [facility] Comment on above: Performed By: #### B MP, TSH #### [facility] [address] [place] [address] Dr. Reema Mireles Nitrite Ql (U) Negative Normal NEGATIVE [facility] Comment on above: Performed By: #### B MP, TSH #### [facility] [address] [place] [address] Dr. Reema Mireles pH (U) 5.5 [pH] Normal 5-9 [facility] Comment on above: Performed By: #### B MP, TSH #### [facility] [address] [place] [address] Dr. Reema Mireles SPEC GRAVITY <=1.005 Abnormal 1.005-<=1.025 [facility] Comment on above: Performed By: #### B GURPREET, TSH #### [facility] [address] [place] [address] Dr. Reema Mireles UA PROTEIN Negative Normal NEGATIVE/ TRACE [facility] Comment on above: Performed By: #### B GURPREET, TSH #### [facility] [address] [place] [address] Dr. Reema Mireles UR MICRO IND NOT INDICATED Normal [facility] Comment on above: Performed By: #### B GURPREET, TSH #### [facility] [address] [place] [address] Dr. Reema Mireles Urobilinogen Qn (U) 0.2 {Renny'U}/dL Normal 0.2 - 1. 0 [facility] Comment on above: Performed By: #### B MP, TSH #### [facility] [address] [place] [address] Dr. Reema Mireles LIPASEon 08-11-2022 Lipase [Catalytic activity/Vol] 71.0 U/L Critically low 73.0-393.0 [facility] Comment on above: Performed By: #### B MP, TSH #### [facility] [address] [place] [address] Dr. Reema Mireles URon 08-11-2022 , QUAL Negative Normal NEGATIVE [facility] Comment on above: Performed By: #### C VDTB #### [facility] [address] [place] [address] Dr. Reema Mireles PROF 14(COMP METB)on 022 Albumin [Mass/Vol] 4.3 g/dL Normal 3.4-5.0 [facility] Comment on above: Performed By: #### B MP, TSH #### [facility] [address] [place] [address] Dr. Reema Mireles Albumin/Globulin [Mass ratio] 1.2 {ratio} Normal [facility] Comment on above: Performed By: #### B MP, TSH #### [facility] [address] [place] [address] Dr. Reema Mireles ALP [Catalytic activity/Vol] 70 U/L Normal 46-116 [facility] Comment on above: Performed By: #### B MP, TSH #### [facility] [address] [place] [address] Dr. Reema Mireles ALT [Catalytic activity/Vol] 16 U/L Normal 14-59 [facility] Comment on above: Performed By: #### B MP, TSH #### [facility] [address] [place] [address] Dr. Reema Mireles Anion gap [Moles/Vol] 10.5 mmol/L Normal [facility] Comment on above: Performed By: #### B MP, TSH #### [facility] [address] [place] [address] Dr. Reema Mireles AST [Catalytic activity/Vol] 8 U/L Critically low 15-37 [facility] Comment on above: Performed By: #### B MP, TSH #### [facility] [address] [place] [address] Dr. Reema Mireles Bilirubin [Mass/Vol] 0.3 mg/dL Normal 0.2-1.0 [facility] Comment on above: Performed By: #### B MP, TSH #### [facility] [address] [address] [address] Reema Mireles Calcium [Mass/Vol] 9.0 mg/dL Normal 8.5-10.1 [facility] Comment on above: Performed By: #### B MP, TSH #### [facility] [address] [address] [address] Reema Mireles Chloride [Moles/Vol] 104 mmol/L Normal 98-107 [facility] Comment on above: Performed By: #### B MP, TSH #### [facility] [address] [place] [address] Dr. Reema Mireles CO2 [Moles/Vol] 26.5 mmol/L Normal 21.0-32.0 [facility] Comment on above: Performed By: #### B MP, TSH #### [facility] [address] [place] [address] Dr. Reema Mireles Creatinine [Mass/Vol] 0.79 mg/dL Normal 0.55-1.02 [facility] Comment on above: Performed By: #### B MP, TSH #### [facility] [address] [place] [address] Dr. Reema Mireles EGFR-AF MONEGASQUE >60 Normal >=60 [facility] Comment on above: Performed By: #### B MP, TSH #### [facility] [address] [place] [address] Dr. Reema Mireles EGFR-NON AF MONEGASQUE >60 Normal >=60 [facility] Comment on above: Performed By: #### B MP, TSH #### [facility] [address] [place] [address] Dr. Reema Mireles Globulin (S) [Mass/Vol] 3.5 g/dL Normal [facility] Comment on above: Performed By: #### B MP, TSH #### [facility] [address] [place] [address] Dr. Reema Mireles Glucose [Mass/Vol] 106 mg/dL Normal 74-106 [facility] Comment on above: Performed By: #### B MP, TSH #### [facility] [address] [place] [address] Dr. Reema Mireles Potassium [Moles/Vol] 3.0 mmol/L Critically low 3.5-5.1 [facility] Comment on above: Performed By: #### B MP, TSH #### [facility] [address] [place] [address] Dr. Reema Mireles Protein [Mass/Vol] 7.8 g/dL Normal 6.4-8.2 [facility] Comment on above: Performed By: #### B MP, TSH #### [facility] [address] [place] [address] Dr. Reema Mireles Sodium [Moles/Vol] 138 mmol/L Normal 136-145 [facility] Comment on above: Performed By: #### B GURPREET, TSH #### [facility] [address] [place] [address] Dr. Reema Mireles Urea nitrogen [Mass/Vol] 8.0 mg/dL Normal 7.0-18.0 [facility] Comment on above: Performed By: #### B MP, TSH #### [facility] [address] [place] [address] Dr. Reema Mireles Urea nitrogen/Creatinine [Mass ratio] 10.1 mg/mg Normal [facility] Comment on above: Performed By: #### B GURPREET, TSH #### [facility] [address] [place] [address] Dr. Reema Mireles PROTIMEon 08-11-2022 INR Coag (PPP) [Relative time] 1.00 {INR} Normal [facility] Comment on above: Performed By: #### P T, PTT #### [facility] [address] [place] [address] Dr. Reema Mireles INR GUIDELINES SEE BELOW Normal [facility] Comment on above: Result Comment: FELICIANO RED INR: 2.0 - 3.0 CONDITIONS NOT LISTED BELOW 2.5 - 3.5 FOR PROSTHETIC HEART VALVE REPLACEMENT 2.5 - 3.5 RECURRENT THROMBOSIS Performed By: #### P T, PTT #### [facility] [address] [place] [address] Dr. Reema Mireles PT Coag (PPP) [Time] 10.8 s Normal 9.0-11.6 [facility] Comment on above: Performed By: #### P T, PTT #### [facility] [address] [place] [address] Dr. Reema Mireles PTTon 08-11-2022 aPTT Coag (Bld) [Time] 30.8 s Normal 22.3-36.2 [facility] Comment on above: Performed By: #### P T, PTT #### [facility] [address] [place] [address] Dr. Reema Mireles [facility] 2021 SED RATE 10 mm/hr Normal <=20 [facility] Comment on above: Performed By: #### B MP, TSH #### [facility] [address] [place] [address] Dr. Reema Mireles TSHon 08-11-2022 TSH 3.313 uIU/mL Normal 0.358-3.740 [facility] Comment on above: Performed By: #### B MP, TSH #### [facility] [address] [place] [address] Dr. Reema Mireles Discharge Instructionson Discharge Instructions [id number] #1.00CD:127 Normal [facility] Comment on above: Other Comment: wrong patient STOOL CULTUREon 04-20-2022 Campylobacter Culture Final report Normal [facility] Comment on above: Performed By: #### B MP, TSH #### [facility] [address] [place] [address] Dr. Reema Mireles E coli Shiga Toxin EIA Negative Normal Negative [facility] Comment on above: Performed By: #### B MP, TSH #### [facility] [address] [place] [address] Dr. Reema Mireles Result 1 Comment Normal [facility] Comment on above: Result Comment: No S almonella or Shigella recovered. Performed By: #### B MP, TSH #### [facility] [address] [place] [address] Dr. Reema Mireles Result Comment: No C ampylobacter species isolated. Salmonella/Shigella Screen Final report Normal [facility] Comment on above: Performed By: #### B MP, TSH #### [facility] [address] [place] [address] Dr. Reema Mireles Coding Summary.on 04-14-2022 Coding Summary. CD:[id number] Gh0bWw+PGhlYWQ+PE1FV UXjB58loAAlcR6CE5rKJ J5CJLUBZOTTAM7KOZ7dg RP4JUfhM4GbqhYg NmrmdWQvTX81PSk0WRI8 jEotGAfjsU2hrVSiV2x8 UqRoUK23gK22CShxIFCi PoT3FwTflflgdTMl Q4tqWfIuzRHtZiv+PHRh YmxlIHdpZHRoPScxMDAl RsLutPmlKB2zNb7eLTAs LWNvbGxhcHNlOiBj m4kaFWDlRSfqYR5qxWha P8OczAX6FTAwa3x2Oh52 dHI+THXlRZU7wDlcUPik w220SxGeh3tgVYP8 qAEaDDbcTPR8K97pq9H2 SDPnKNMeWFR2pAU3vI6y bWwkstbhX4FjuOGgHcO3 WDZ5rQCbgZ3raCdz iuzvaB1eYnh+V99FTZ4G TCDRCX9HZje8Y8CgSngn dHI+BY20QTBhPX80cLUk jJCys8svvJb5JxRm SAZbAPN3hCohYZpmw6Ww PNJjX80gjEZqn2G5ISIi nHlxnYZuShOvwHI4rJ7n QSltoyigy3dgoctb Ffqbh5dfuc98kM92R87k SFrzOKFmFOS1WTFmBUGh vVmlvd9ubY2iNl2+IDxj z9zxx2hdpTn2PsJl FDHzidXskPmfRYO7j5Ej Ty12Y4WolMowa2EjKtf2 lb35rGYxh3Y5wXD1RRyo UEIxwM5nGLujAzV1 XYFnMvHnyI96hDWvGQik Ny3wyGejzYxbDT8cGQHf sdrbNEKfaH5fXAVbyZBo aLysBH9eUQIivykz i641IlUfDWO4OQIzaALj U7DdwL6gThNzNMKyRFFv D7NfsALiWVrhT564MGwj YhI4QPGjdmMcP4Vs ONEufZrgCsK1c9K4Ix9V v9VwdxhdXUB0HFgrYYI0 TfK4XvHnWhV4E6EiSfn4 AOGfnGusSZ2wV9Ig SWEkqobiaysstJT8LRUi CQStyM08yWEfDPraRg2u l9L9y657HUMmFZXfrT48 Xh7jvWmjQDBjzKUW zA7ilhyjp3xsxgjoYpQc VBGsAYi9LVy1BARgnDyw OiSsJKJ5WoE0LLK2nWHp hG3nqZiaqqvheG0i Oyc+N06qbB9rEYC1EYL1 awbfFMSxqcUwNV94KE06 J6CmWflouWZvoJM+PGRp gePqjCtnSG1aToRh a4pws3OiLXowS6HyZAKd TJysJct1YWHkXUX4iHP5 zQ1qCUSvQZjje6Z5dQE7 O7KgzqFwhx5xi3ab JWJpHPrzK42zeMKhz6T6 YUTkkKC9RPVenQzbWiLs rR33Err+FPVnqFrls6Gz Qzpfe5tku4qnlYe1 IjMwJSIgdmFsaWduPSJ0 p8FxSd14D49zPUimFWFh LJKlADItODGkpQbins5l nS1qAu0+PGNvbCB3 yME8lN2rVEKlXnF0AYkw N393QeHiyMPyClfkk0gk g4ocqLg8KyArKABbxzOi lTzcBEF5i5MqTe78 U98vSAspEQMnCNIeTRQn DJWqzWvuvy1uaP5kDu9+ KL5ys7tcau00kP17yWL+ VVRgAOM9nIppSIil MYTdzR2yWBfcDmX2XBHc BtEcjZ06lWVrUNniNg8w pEymuDegUX6yVNHoxyno d063XxCnq4glHAJy cLYrSElfIYX8Y99xp3U4 RRJwXRQeYPY0lWE4cK8e bGlnbjogbGVmdDsgdmVy wYxpOWgvCDvkL015 IHRvcDsnPlBhdGllbnQg LdAyHLk8V0ZiAnx1GNOp yTtzIW8jjZVjADvbIm3c wOqsaMxnSO7lJSUc rpraw334RhXoq8enIMLe uVLgPBgbHWW8A40ic9M9 RSVcNOUwPBF6bKX2xP3j bGlnbjogbGVmdDsg eyCocQkfCMknBFbeD249 IHRvcDsnPkJpcnRoIERh dQA2ZZ60DE84xHFsz0V7 qTS1M4HcKRSzlpjf vyaxvQB0KKCvHFTxeL37 Xo8xkTocAi8aULMzIUC4 VSAagRDxW1LamX4oSxZr BYOsXUUxZ6BisHSd LUrgW639GDjeJhX1OLPy ctUvH0QdMBBtjWjxAwG1 m7L1Pl3UL3C6PQ50KL68 eQMyj2Q8oOK1V5Vv IYEhtrltfdtlyFC5DMCx KTNsbN81Vw4acRkuQm5r NOYaNSP7HQUchPOwC8Tv zM9bVrZdEABqOGZl W3YeaQAkBXcuI906BVdx ViE9LWEqqxLxD7LrWTWk cHfzHyW4k2X5Ju5TBYw0 BE28PA82cDLdz2F5 kJV9X7GbWNFuyaalqgik hGR4GPDwVWIifF86Vg5d tFlyQr7cREFqPVY4VIXe vOPkI2YhrF8sDtHh FGTcJSRqF8VigNVhHQcz M828RDmcDrR8ADFtkyQh O4RqCANiuJvpSrE8f5E4 El1HVVBiWG77BNZ5 cNL3EA69DU07H1XsMoae dGFibGU+PHRhYmxlIHdp ZHRoPScxMDAlJyBzdHls QC0bUe7fFILsGKKe vRmitNTlDzTmz9tkAWXi XAllHC7bpBcuH2CflJS8 TDTas7b5Vz50G19iF4Ky dXA+QDXvnNF4yER3 jC1bLdIaNyB4ZYyhB490 KuLdhNBfVsvye8mdm5dg fGl4SyO0IQHizxPspLee CKY0i7QrQu12K01q IHdpZHRoPSIxNSUiIHZh bHugaq6bkE8lGb4+PGNv vGR5vCF0aC2kHuPmJgL7 PKewP554HdOqaYWa Ejqke6owh9csiUy1WxNi RKJmjnMimKuqLGE7p4Oy Os14E3PkkZgbr7DvQle9 ac28fUHyw4N0mGB1 Z2RdGMEroeagcTQxtZbs SR7zLMSjcmmiNUChfW7f KRRtK6l4QzLiDwN6NEfl L6GuvbL9HUVnoMRd OQvhGGI0U30ai4N1GRXb LDRtFMH5hYE1sN8bsEsl bjogbGVmdDsgdmVydGlj DMhxCKqdE943DKBs eQcjLKPjgP2zUESbuORy jCcoKM2sQYXzzxiiLvhA XHTKD59IG2sOBAGSDCLI TFY3O9CkFkj1VPPx fBccMA1xfUWrJOcmYa0v eImjaVhxSZ8iSYEupzmp LGLctH8yATCwiDGvnVfa DW4rMAGemlrtf937 NnZzXGU9XHXzrSShD5Ua tE4yKrUqMUCoFBXtX0Tk zXNqEEokR862JMzuOnW4 WROqneOaK4IyJINd vRiyCfT8a3M4Yx1hRa5z OJ7hLXKqDS37JN85eYDo c6C3jXU6U3DuPNKixslj qviwjVW3RCOcEOFu qS83rTKeFQoiMs7pq1S9 g786SSXuEKXspT89Pp0s aJzaFAPngGNQsL6agnyg x6qvhgipOtZoHRHh GJd7QWs9NWHojYsfZeRs CKI9TfV1ANB1yGRzmM5e fKruedndrQ9rEdk+MjAg WFRckhI2F8UdMbh5 IZXkoXzxTS2tgJNhTScu Zq9ezOtziZhzHX9cSWPb pebwNKLfoK0bXPUceOVm kAqzRU0bRXZvsqfk n232HnTeMJE4LNZzlBUr E7WhuP8qHzNdKNMkVJFx X5EsvAAsACoyL729UDde RkK9BFEywkJdN4Uk FOOaiSmzGjR5j6G1Pq6P CS0kmDR1E3XwVwq0SNFm xSrfUS5nwLOdUPqtLp4h xDfqdGexAI5lWGVh tuirSGYlxO0uUHSdkSFc lDykUS5qLLStvevbo749 UuDeXYS0YEMejDBxD0Mg pQ0vOoVvYXHfODNo U6CrqRUmQAcdD315YVmv PtJ8MXYghrZfO4PoRFQk jTpyBiB3c0C3Ny7YxQRu W2FqB7a5N2JeXqvs dHI+MK57LCMiCS93xACl pJSwd2nwvTg9MiWmJLUb OWE4iOrfPNhbr1KkBAGo M21wpTBmz3V8JPPs qPbmsNPnTvTiuJE3fM9x ZAqaisoeg6pvjnbcMozs k0picj43tV38C44nOAgo ZHRoPSIzMCUiIHZh nKqjvj6zoY2cMa1+PGNv sAP1lOO4nP3lJeDoWhY6 VFgqZ760GoEguFAjAfhl g7cec2ghnZd3HgTa TAUiscDqoSmrZOD6p8Qh Ns51X20mQUixFKBzFZTc WXFsKVSvwEkklt5ahJ8k Ii8+NH5of8tbfp79 sM02bAD+XJOfCVL6vEhv UHgsQQVgbF9eTBpgVxU8 JALnCnXcrX23sZKqGBne Sn8hdYboxVnyCB2z UPOyufmxt370TbIyr5yp DFAmlRXhTAssSAW3M11r f0K3DEPuLFWiCFJ8fVC5 qY1loHtamtjruFFj dDsgdmVydGljYWwtYWxp K466XNWuqIqwOqYgrETy P1hmwjNCTF6bUhdckDG+ WGHgHKY7pThwWDjp ZJMvcN7tZDSqH2y6EeTc QgP0APcmU4KjdjU5VSEa xHGjAJPqjXKPmL9visem b2zewdmgOmRlPUIs PHo4XJk6EJHtaJcaNcBi MUO1YqF2SYT3aATzoC8o vQjgqrjgxH0rOfk+RklO OjwvdGQ+PHRkIHN0 oQeuYQvqUCTtcY7uPBLj A3y3FfTtUnB4QUvdV5Na ibI2LKGsbTRxHKKfdACE kL8fqtken4kanbrr JlGjTMHxNFf6HMl9CSEb cArtUxEhJRB2IlY9WED9 yUTqqS0ixNysiokpjN0z Oyc+TVJOOjwvdGQ+ QABcBUT3sPiyEItfDWMh qA4zKLOgX5n5EmLgUvZ7 XRgcT0BhxhB4ZDZqxIRm TTSvxYSSqP6mtgai s2vxfuqcJaIlBAPsRFg7 CAf5TKSkfNjeBgZhJQA7 NkV2ZPC9mKAweF2vwYny nfyljD1zMzc+UGF5 WTW3BO58DR49X2NmOwco dGFibGU+PHRhYmxlIHdp ZHRoPScxMDAlJyBzdHls MN2eIn5oRWVqOTUr bGxh (more content not included)... Normal [facility] CBC AUTO DIFFon 04-13-2022 BASO # 0.1 103/ul Normal 0.0-0.1 [facility] Comment on above: Performed By: #### C VDTBH #### [facility] [address] [place] [address] Dr. Reema Mireles Basophils/100 WBC (Bld) 0.6 % Normal 0.2-2.0 [facility] Comment on above: Performed By: #### C VDTBH #### [facility] [address] [place] [address] Dr. Reema Mireles EO # 0.0 103/ul Normal 0.0-0.7 [facility] Comment on above: Performed By: #### C VDTBH #### [facility] [address] [place] [address] Dr. Reema Mireles Eosinophils/100 WBC (Bld) 0.2 % Critically low 0.9-7.0 [facility] Comment on above: Performed By: #### C VDTBH #### [facility] [address] [place] [address] Dr. Reema Mireles Erythrocyte distribution width (RBC) [Ratio] 11.4 % Normal 11.0-15.0 [facility] Comment on above: Performed By: #### C VDTBH #### [facility] [address] [place] [address] Dr. Reema Mireles Hematocrit (Bld) [Volume fraction] 38.3 % Normal 36.0-48.0 [facility] Comment on above: Performed By: #### C VDTBH #### [facility] [address] [place] [address] Dr. Reema Mireles Hemoglobin (Bld) [Mass/Vol] 13.4 g/dL Normal 12.0-16.0 [facility] Comment on above: Performed By: #### C VDTBH #### [facility] [address] [place] [address] Dr. Reema Mireles IG # 0.01 10e3/ul Normal 0.00-0.03 [facility] Comment on above: Performed By: #### C VDTBH #### [facility] [address] [place] [address] Dr. Reema Mireles IG % 0.1 % Normal 0.0-0.5 [facility] Comment on above: Performed By: #### C VDTBH #### [facility] [address] [place] [address] Dr. Reema Mireles LYMPH # 1.8 103/ul Normal 1.2-3.8 [facility] Comment on above: Performed By: #### C VDTBH #### [facility] [address] [place] [address] Dr. Reema Mireles Lymphocytes/100 WBC (Bld) 22.2 % Normal 20.5-60.0 [facility] Comment on above: Performed By: #### C VDTBH #### [facility] [address] [place] [address] Dr. Reema Mireles MANUAL DIFF REQ NO Normal [facility] Comment on above: Performed By: #### C VDTBH #### [facility] [address] [place] [address] Dr. Reema Mireles MCH (RBC) [Entitic mass] 30.6 pg Normal 26.7-34.0 [facility] Comment on above: Performed By: #### C VDTBH #### [facility] [address] [place] [address] Dr. Reema Mireles MCHC (RBC) [Mass/Vol] 35.0 g/dL Normal 29.9-35.2 [facility] Comment on above: Performed By: #### C VDTBH #### [facility] [address] [place] [address] Dr. Reema Mireles MCV (RBC) [Entitic vol] 87.4 fL Normal 81.0-99.0 [facility] Comment on above: Performed By: #### C VDTBH #### [facility] [address] [place] [address] Dr. Reema Mireles MONO # 0.7 103/ul Normal 0.3-0.8 [facility] Comment on above: Performed By: #### C VDTBH #### [facility] [address] [place] [address] Dr. Reema Mireles Monocytes/100 WBC (Bld) 8.2 % Normal 1.7-12.0 [facility] Comment on above: Performed By: #### C VDTBH #### [facility] [address] [place] [address] Dr. Reema Mireles NEUT # 5.5 103/ul Normal 1.4-6.5 [facility] Comment on above: Performed By: #### C VDTBH #### [facility] [address] [place] [address] Dr. Reema Mireles Neutrophils/100 WBC (Bld) 68.7 % Normal 43.0-75.0 [facility] Comment on above: Performed By: #### C VDTBH #### [facility] [address] [place] [address] Dr. Reema Mireles Platelet mean volume (Bld) [Entitic vol] 10.1 fL Normal 9.5-13.5 [facility] Comment on above: Performed By: #### C VDTBH #### [facility] [address] [place] [address] Dr. Reema Mireles PLT 404 103/ul Normal 150-450 [facility] Comment on above: Performed By: #### C VDTBH #### [facility] [address] [place] [address] Dr. Reema Mireles RBC 4.38 106/ul Normal 4.20-5.40 [facility] Comment on above: Performed By: #### C VDTBH #### [facility] [address] [address] [address] Reema Mireles WBC 8.0 103/ul Normal 4.0-11.0 [facility] Comment on above: Performed By: #### C VDTBH #### [facility] [id number] Reema Mireles CT HEAD WO CONon [...] by: AURELIA CARLOS Date: 2022-04-13 16:29 Normal [facility] Discharge Instructionson Discharge Instructions [id number] #[id number]:127 Normal [facility] ED Note-Physicianon 04-13-20 22 ED Note-Physician Basic Information Time Seen: Lata Hardy M.D. 04/12/2022 19:56 Chief Complaint Pt. presents to the ed with c/o headache and vertigo since thursday. Pt. was seen at [facility] and started on prednisone. pt. stopped taking [...] The patient states she was seen at [facility] discharged home. She went to [...] neurological deficit. She has been seen at [facility] and started on prednisone. Possible [...] ADRYAN MARIE In 3 days 04/15/2022 EDT [facility] [id number] [facility] (1) Additional Instructions: Return to the emergency [...] Diagnostic Results No qualifying data available. Normal [facility] Comment on above: Result Comment: Elec tronically Signed By: Antony Villa, Lata Baxter\.br\Date and Time Signed: 04/13/22 04:56 EDT ER URINE PROFILEon 2 Bilirubin Ql (U) Negative Normal NEGATIVE [facility] Comment on above: Performed By: #### P REGU, ERUR #### [facility] [address] [place] [address] Dr. Reema Mireles Clarity (U) CLEAR Normal CLEAR [facility] Comment on above: Performed By: #### P REGU, ERUR #### [facility] [address] [address] [address] Reema Mireles Color (U) LT. YELLOW Normal YELLOW [facility] Comment on above: Performed By: #### P REGU, ERUR #### [facility] [address] [place] [address] Dr. Reema ELIZALDE A micrscopic examination will be performed if indicated. Normal [facility] Comment on above: Performed By: #### P REGU, ERUR #### [facility] [address] [place] [address] Dr. Reema Mireles Glucose Ql (U) Negative Normal NEGATIVE [facility] Comment on above: Performed By: #### P REGU, ERUR #### [facility] [address] [address] [address] Reema Mireles Hemoglobin Ql (U) Negative Normal NEGATIVE [facility] Comment on above: Performed By: #### P REGU, ERUR #### [facility] [address] [address] [address] Reema Mireles Ketones Ql (U) Negative Normal NEGATIVE [facility] Comment on above: Performed By: #### P REGU, ERUR #### [facility] [address] [address] [address] Reema Mireles LEUKOCYTES Negative Normal NEGATIVE [facility] Comment on above: Performed By: #### P REGU, ERUR #### [facility] [address] [place] [address] Dr. Reema Mireles Nitrite Ql (U) Negative Normal NEGATIVE [facility] Comment on above: Performed By: #### P REGU, ERUR #### [facility] [address] [place] [address] Dr. Reema Mireles pH (U) 6.5 [pH] Normal 5-9 [facility] Comment on above: Performed By: #### P REGU, ERUR #### [facility] [address] [place] [address] Dr. Reema Mireles SPEC GRAVITY 1.005 Normal 1.005-<=1.[address] [facility] Comment on above: Performed By: #### P REGU, ERUR #### [facility] [address] [place] [address] Dr. Reema Mireles UA PROTEIN Negative Normal NEGATIVE/ TRACE [facility] Comment on above: Performed By: #### P REGU, ERUR #### [facility] [address] [address] [address] Reema Mireles UR MICRO IND NOT INDICATED Normal [facility] Comment on above: Performed By: #### P REGU, ERUR #### [facility] [address] [place] [address] Dr. Reema Mireles Urobilinogen Qn (U) 0.2 {Renny'U}/dL Normal 0.2 - 1. 0 [facility] Comment on above: Performed By: #### P RUSTY, ERUR #### [facility] [address] [place] [address] Dr. Reema Mireles URon 04-13-2022 , QUAL Negative Normal NEGATIVE [facility] Comment on above: Performed By: #### P MAXIU, ERUR #### [facility] [address] [place] [address] Dr. Reema Mireles PROF CHEM 8 (BAS METB)on Anion gap [Moles/Vol] 14.0 mmol/L Normal [facility] Comment on above: Performed By: #### B MP, TSH #### [facility] [address] [place] [address] Dr. Reema Mireles Calcium [Mass/Vol] 9.2 mg/dL Normal 8.5-10.1 [facility] Comment on above: Performed By: #### B MP, TSH #### [facility] [address] [place] [address] Dr. Reema Mireles Chloride [Moles/Vol] 102 mmol/L Normal 98-107 [facility] Comment on above: Performed By: #### B MP, TSH #### [facility] [address] [place] [address] Dr. Reema Mireles CO2 [Moles/Vol] 26.3 mmol/L Normal 21.0-32.0 [facility] Comment on above: Performed By: #### B MP, TSH #### [facility] [address] [place] [address] Dr. Reema Mireles Creatinine [Mass/Vol] 0.65 mg/dL Normal 0.55-1.02 [facility] Comment on above: Performed By: #### B MP, TSH #### [facility] [address] [place] [address] Dr. Reema Mireles EGFR-AF MONEGASQUE >60 Normal >=60 [facility] Comment on above: Performed By: #### B MP, TSH #### [facility] [address] [address] [address] Reema Mireles EGFR-NON AF MONEGASQUE >60 Normal >=60 [facility] Comment on above: Performed By: #### B MP, TSH #### [facility] [address] [address] [address] Reema Mireles Glucose [Mass/Vol] 92 mg/dL Normal 74-106 [facility] Comment on above: Performed By: #### B MP, TSH #### [facility] [address] [address] [address] Reema Mireles Potassium [Moles/Vol] 3.3 mmol/L Critically low 3.5-5.1 [facility] Comment on above: Performed By: #### B MP, TSH #### [facility] [address] [address] [address] Reema Mireles Sodium [Moles/Vol] 139 mmol/L Normal 136-145 [facility] Comment on above: Performed By: #### B MP, TSH #### [facility] [address] [address] [address] Reema Mireles Urea nitrogen [Mass/Vol] 8.0 mg/dL Normal 7.0-18.0 [facility] Comment on above: Performed By: #### B MP, TSH #### [facility] [address] [address] [address] Reema Mireles Urea nitrogen/Creatinine [Mass ratio] 12.3 mg/mg Normal [facility] Comment on above: Performed By: #### B MP, TSH #### [facility] [address] [address] [address] Reema Mireles TSHon 04-13-2022 TSH 1.293 uIU/mL Normal 0.358-3.740 [facility] Comment on above: Performed By: #### B MP, TSH #### [facility] [address] [place] [address] Dr. Reema Mireles Consent for Treatmenton 03-28 Consent for Treatment [id number] Normal [facility] ED Clinical Summaryon 2021 ED Clinical Summary [address] [address] ED Clinical Summary Person Information Name: JUANPABLO CHAPARRO [place] Age: 21 Years : 2000 Sex: Female Language: Khmer PCP: ADRYAN MARIE MD Marital Status: Single Phone: [phone] Visit Id: Visit Reason: Vertigo - recurrent; [...] 21:07:38 04/12/2022 21:07:38 04/12/2022 21:07:38 ADDRESS: [address] [place] [phone] PHYS DOC NOTES: MEDICAL INFORMATION: Prescriptions Given: PATIENT EDUCATION INFORMATION: Instructions: General Headache Without Cause; Vertigo Follow up: With: Address: When: ADRYAN AMINJAILENE [address] [place] [address] Business (1) In 3 days 04/15/2022 Comments: Return to the emergency room if her headache gets worse, vertigo becomes persistent or any new symptoms DIAGNOSIS: 1:Vertigo; 2:Headache Normal [facility] ED Patient Education Noteon 04-12-2022 ED Patient [...] you feel dizzy. General instructions ? Take dopt-onp-ljqjfpu and prescription medicines only as told by [...] 06/24/2006 Document Revised: 08/08/2019 Document Reviewed: 08/08/2019 Maureen Patient Education ? 2019 [employer] Neurology General Headache Without Cause A [...] with your condition: Managing pain ? Take wnqz-iuv-vgvocem and prescription medicines only as told by [...] of beer (more content not included)... Normal [facility] ED Patient Summaryon 022 ED Patient Summary [address] [address] Patient Discharge Instructions Person Information Name: JUANPABLO CHAPARRO Age: 21 Years Arrival Date: 04/12/2022 19:22:40 Discharge Diagnosis: 1:Vertigo; 2:Headache Primary Care Physician: ADRYAN MARIE MD Provider Information Primary Provider: Lata Hardy M.D. Advanced Back End Developer:None The exam and treatment you received in the Emergency Department were for an urgent problem and are not intended as complete care. It is important that you follow up with a doctor, nurse practitioner, or physician?s research program assistant for ongoing care. If your symptoms become worse or you do not improve as expected and you are unable to reach your usual health care provider, you should return to the Emergency Department. We are available 24 hours a day. JUANPBALO CHAPARRO has been given the following list of patient education materials, prescriptions and follow-up instructions: Follow-up Instructions: With: Address: When: ADRYAN MARIE [address] [place] [address] [employer] ([employer] In 3 days 04/15/2022 Comments: Return to [...] opioids can be used to help relieve foqxofje-wy-lpwjpw pain and are often prescribed following a [...] addiction, tel (more content not included)... Normal [facility] CBC AUTO DIFFon 04-09-2022 BASO # 0.1 103/ul Normal 0.0-0.1 [facility] Comment on above: Performed By: #### B MP, TSH #### [facility] [address] [address] [address] Reema Mireles Basophils/100 WBC (Bld) 0.5 % Normal 0.2-2.0 [facility] Comment on above: Performed By: #### B GURPREET, TSH #### [facility] [address] [place] [address] Dr. Reema Mireles EO # 0.1 103/ul Normal 0.0-0.7 [facility] Comment on above: Performed By: #### B GURPREET, TSH #### [facility] [address] [place] [address] Dr. Reema Mireles Eosinophils/100 WBC (Bld) 1.0 % Normal 0.9-7.0 [facility] Comment on above: Performed By: #### B GURPREET, TSH #### [facility] [address] [place] [address] Dr. Reema Mireles Erythrocyte distribution width (RBC) [Ratio] 11.7 % Normal 11.0-15.0 [facility] Comment on above: Performed By: #### B GURPREET, TSH #### [facility] [address] [place] [address] Dr. Reema Mireles Hematocrit (Bld) [Volume fraction] 37.2 % Normal 36.0-48.0 [facility] Comment on above: Performed By: #### B GURPREET, TSH #### [facility] [address] [place] [address] Dr. Reema Mireles Hemoglobin (Bld) [Mass/Vol] 12.8 g/dL Normal 12.0-16.0 [facility] Comment on above: Performed By: #### B GURPREET, TSH #### [facility] [address] [place] [address] Dr. Reema Mireles IG # 0.02 10e3/ul Normal 0.00-0.03 [facility] Comment on above: Performed By: #### B GURPREET, TSH #### [facility] [address] [place] [address] Dr. Reema Mireles IG % 0.2 % Normal 0.0-0.5 [facility] Comment on above: Performed By: #### B GURPREET, TSH #### [facility] [address] [place] [address] Dr. Reema Mireles LYMPH # 1.8 103/ul Normal 1.2-3.8 [facility] Comment on above: Performed By: #### B MP, TSH #### [facility] [address] [place] [address] Dr. Reema Mireles Lymphocytes/100 WBC (Bld) 19.0 % Critically low 20.5-60.0 [facility] Comment on above: Performed By: #### B MP, TSH #### [facility] [address] [place] [address] Dr. Reema Mireles MANUAL DIFF REQ NO Normal [facility] Comment on above: Performed By: #### B MP, TSH #### [facility] [address] [place] [address] Dr. Reema Mireles MCH (RBC) [Entitic mass] 30.4 pg Normal 26.7-34.0 [facility] Comment on above: Performed By: #### B MP, TSH #### [facility] [address] [place] [address] Dr. Reema Mireles MCHC (RBC) [Mass/Vol] 34.4 g/dL Normal 29.9-35.2 [facility] Comment on above: Performed By: #### B MP, TSH #### [facility] [address] [place] [address] Dr. Reema Mireles MCV (RBC) [Entitic vol] 88.4 fL Normal 81.0-99.0 [facility] Comment on above: Performed By: #### B MP, TSH #### [facility] [address] [place] [address] Dr. Reema Mireles MONO # 0.7 103/ul Normal 0.3-0.8 [facility] Comment on above: Performed By: #### B MP, TSH #### [facility] [address] [place] [address] Dr. Reema Mireles Monocytes/100 WBC (Bld) 6.8 % Normal 1.7-12.0 [facility] Comment on above: Performed By: #### B MP, TSH #### [facility] [address] [address] [address] Reema Mireles NEUT # 7.0 103/ul Critically high 1.4-6.5 [facility] Comment on above: Performed By: #### B MP, TSH #### [facility] [address] [address] [address] Reema Mireles Neutrophils/100 WBC (Bld) 72.5 % Normal 43.0-75.0 [facility] Comment on above: Performed By: #### B MP, TSH #### [facility] [address] [place] [address] Dr. Reema Mireles Platelet mean volume (Bld) [Entitic vol] 10.3 fL Normal 9.5-13.5 [facility] Comment on above: Performed By: #### B MP, TSH #### [facility] [address] [place] [address] Dr. Reema Mireles PLT 358 103/ul Normal 150-450 [facility] Comment on above: Performed By: #### B MP, TSH #### [facility] [address] [place] [address] Dr. Reema Mireles RBC 4.21 106/ul Normal 4.20-5.40 [facility] Comment on above: Performed By: #### B MP, TSH #### [facility] [address] [place] [address] Dr. Reema Mireles WBC 9.7 103/ul Normal 4.0-11.0 [facility] Comment on above: Performed By: #### B MP, TSH #### [facility] [address] [place] [address] Dr. Reema Mireles CULTURE BLOODon 04-09-2022 Microscopic examination of blood, culture Culture Observations: NO GROWTH AT 5 DAYS. Normal [facility] Comment on above: Performed By: #### B MP, TSH #### [facility] [address] [place] [address] Dr. Reema Mireles ER URINE PROFILEon 2 Bilirubin Ql (U) Negative Normal NEGATIVE [facility] Comment on above: Performed By: #### B MP, TSH #### [facility] [address] [place] [address] Dr. Reema Mireles Clarity (U) CLEAR Normal CLEAR [facility] Comment on above: Performed By: #### B MP, TSH #### [facility] [address] [place] [address] Dr. Reema Mireles Color (U) LT. YELLOW Normal YELLOW [facility] Comment on above: Performed By: #### B MP, TSH #### [facility] [address] [place] [address] Dr. Reema ELIZALDE A micrscopic examination will be performed if indicated. Normal [facility] Comment on above: Performed By: #### B MP, TSH #### [facility] [address] [place] [address] Dr. Reema Mireles Glucose Ql (U) Negative Normal NEGATIVE [facility] Comment on above: Performed By: #### B MP, TSH #### [facility] [address] [place] [address] Dr. Reema Mireles Hemoglobin Ql (U) TRACE-INTACT Abnormal NEGATIVE [facility] Comment on above: Performed By: #### B MP, TSH #### [facility] [address] [place] [address] Dr. Reema Mireles Ketones Ql (U) Negative Normal NEGATIVE [facility] Comment on above: Performed By: #### B MP, TSH #### [facility] [address] [place] [address] Dr. Reema Mireles LEUKOCYTES Negative Normal NEGATIVE [facility] Comment on above: Performed By: #### B MP, TSH #### [facility] [address] [place] [address] Dr. Reema Mireles Nitrite Ql (U) Negative Normal NEGATIVE [facility] Comment on above: Performed By: #### B MP, TSH #### [facility] [address] [place] [address] Dr. Reema Mireles pH (U) 5.5 [pH] Normal 5-9 [facility] Comment on above: Performed By: #### B MP, TSH #### [facility] [address] [place] [address] Dr. Reema Mireles SPEC GRAVITY <=1.005 Abnormal 1.005-<=1.[address] [facility] Comment on above: Performed By: #### B MP, TSH #### [facility] [address] [place] [address] Dr. Reema Mireles UA PROTEIN Negative Normal NEGATIVE/ TRACE [facility] Comment on above: Performed By: #### B MP, TSH #### [facility] [address] [place] [address] Dr. Reema Mireles UR MICRO IND INDICATED Normal [facility] Comment on above: Performed By: #### B MP, TSH #### [facility] [address] [place] [address] Dr. Reema Mireles Urobilinogen Qn (U) 0.2 {Renny'U}/dL Normal 0.2 - 1. 0 [facility] Comment on above: Performed By: #### B MP, TSH #### [facility] [address] [place] [address] Dr. Reema Mireles LACTATE/LACTIC ACIDon 2021 Lactate [Moles/Vol] 2.2 mmol/L Critically high 0.4-1.9 [facility] Comment on above: Performed By: #### B MP, TSH #### [facility] [address] [place] [address] Dr. Reema Mireles URon 04-09-2022 , QUAL Negative Normal NEGATIVE [facility] Comment on above: Performed By: #### B MP, TSH #### [facility] [address] [place] [address] Dr. Reema Mireles PROF 14(COMP METB)on 022 Albumin [Mass/Vol] 4.5 g/dL Normal 3.4-5.0 [facility] Comment on above: Performed By: #### C MP #### [facility] [address] [place] [address] Dr. Reema Mireles Albumin/Globulin [Mass ratio] 1.3 {ratio} Normal [facility] Comment on above: Performed By: #### C MP #### [facility] [address] [address] [address] Reema Mireles ALP [Catalytic activity/Vol] 83 U/L Normal 46-116 [facility] Comment on above: Performed By: #### C MP #### [facility] [address] [address] [address] Reema Mireles ALT [Catalytic activity/Vol] 26 U/L Normal 14-59 [facility] Comment on above: Performed By: #### C MP #### [facility] [address] [address] [address] Reema Mireles Anion gap [Moles/Vol] 14.9 mmol/L Normal [facility] Comment on above: Performed By: #### C MP #### [facility] [address] [place] [address] Dr. Reema Mireles AST [Catalytic activity/Vol] 12 U/L Critically low 15-37 [facility] Comment on above: Performed By: #### C MP #### [facility] [address] [place] [address] Dr. Reema Mireles Bilirubin [Mass/Vol] 0.3 mg/dL Normal 0.2-1.0 [facility] Comment on above: Performed By: #### C MP #### [facility] [address] [place] [address] Dr. Reema Mireles Calcium [Mass/Vol] 9.6 mg/dL Normal 8.5-10.1 [facility] Comment on above: Performed By: #### C MP #### [facility] [address] [place] [address] Dr. Reema Mireles Chloride [Moles/Vol] 103 mmol/L Normal 98-107 [facility] Comment on above: Performed By: #### C MP #### [facility] [address] [place] [address] Dr. Reema Mireles CO2 [Moles/Vol] 24.4 mmol/L Normal 21.0-32.0 [facility] Comment on above: Performed By: #### C MP #### [facility] [address] [address] [address] Reema Mireles Creatinine [Mass/Vol] 0.87 mg/dL Normal 0.55-1.02 [facility] Comment on above: Performed By: #### C MP #### [facility] [address] [address] [address] Reema Mireles EGFR-AF MONEGASQUE >60 Normal >=60 [facility] Comment on above: Performed By: #### C MP #### [facility] [address] [address] [address] Reema Mireles EGFR-NON AF MONEGASQUE >60 Normal >=60 [facility] Comment on above: Performed By: #### C MP #### [facility] [address] [address] [address] Reema Mireles Globulin (S) [Mass/Vol] 3.5 g/dL Normal [facility] Comment on above: Performed By: #### C MP #### [facility] [address] [address] [address] Reema Mireles Glucose [Mass/Vol] 109 mg/dL Critically high 74-106 [facility] Comment on above: Performed By: #### C MP #### [facility] [address] [place] [address] Dr. Reema Mireles Potassium [Moles/Vol] 3.3 mmol/L Critically low 3.5-5.1 [facility] Comment on above: Performed By: #### C MP #### [facility] [address] [address] [address] Reema Mireles Protein [Mass/Vol] 8.0 g/dL Normal 6.4-8.2 [facility] Comment on above: Performed By: #### C MP #### [facility] [address] [place] [address] Dr. Reema Mireles Sodium [Moles/Vol] 139 mmol/L Normal 136-145 [facility] Comment on above: Performed By: #### C MP #### [facility] [address] [place] [address] Dr. Reema Mireles Urea nitrogen [Mass/Vol] 9.0 mg/dL Normal 7.0-18.0 [facility] Comment on above: Performed By: #### C MP #### [facility] [address] [place] [address] Dr. Reema Mireles Urea nitrogen/Creatinine [Mass ratio] 10.3 mg/mg Normal [facility] Comment on above: Performed By: #### C MP #### [facility] [address] [place] [address] Dr. Reema Mireles URINE MICROSCOPIC ONLYon BACTERIA NONE SEEN Normal NONE SEEN [facility] Comment on above: Performed By: #### B MP, TSH #### [facility] [address] [place] [address] Dr. Reema Mireles Bacteria identified Cx Nom (U) NOT INDICATED Normal [facility] Comment on above: Performed By: #### B MP, TSH #### [facility] [address] [place] [address] Dr. Reema Mireles CAST NONE SEEN Normal NONE SEEN [facility] Comment on above: Performed By: #### B MP, TSH #### [facility] [address] [place] [address] Dr. Reema Mireles Crystals LM Nom (Urine sed) NONE SEEN Normal NONE SEEN [facility] Comment on above: Performed By: #### B MP, TSH #### [facility] [address] [place] [address] Dr. Reema Mireles Epithelial cells LM Ql (Urine sed) RARE Normal NONE SEEN /RARE [facility] Comment on above: Performed By: #### B MP, TSH #### [facility] [address] [place] [address] Dr. Reema Mireles MUCOUS NONE SEEN Normal NONE SEEN [facility] Comment on above: Performed By: #### B MP, TSH #### [facility] [address] [place] [address] Dr. Reema Mireles RBC 0-2 Normal 0-2 [facility] Comment on above: Performed By: #### B MP, TSH #### [facility] [address] [place] [address] Dr. Reema Mireles WBC NONE SEEN Normal NONE SEEN [facility] Comment on above: Performed By: #### B MP, TSH #### [facility] [address] [place] [address] Dr. Reema Mireles CBC AUTO DIFFon 10-25-2021 BASO # 0.0 103/ul Normal 0.0-0.1 [facility] Comment on above: Performed By: #### C BC #### [facility] [address] [place] [address] Dr. Reema Mireles Basophils/100 WBC (Bld) 0.6 % Normal 0.2-2.0 [facility] Comment on above: Performed By: #### C BC #### [facility] [address] [place] [address] Dr. Reema Mireles EO # 0.1 103/ul Normal 0.0-0.7 [facility] Comment on above: Performed By: #### C BC #### [facility] [address] [place] [address] Dr. Reema Mireles Eosinophils/100 WBC (Bld) 1.8 % Normal 0.9-7.0 [facility] Comment on above: Performed By: #### C BC #### [facility] [address] [place] [address] Dr. Reema Mireles Erythrocyte distribution width (RBC) [Ratio] 11.9 % Normal 11.0-15.0 [facility] Comment on above: Performed By: #### C BC #### [facility] [address] [place] [address] Dr. Reema Mireles Hematocrit (Bld) [Volume fraction] 38.1 % Normal 36.0-48.0 [facility] Comment on above: Performed By: #### C BC #### [facility] [address] [place] [address] Dr. Reema Mireles Hemoglobin (Bld) [Mass/Vol] 13.1 g/dL Normal 12.0-16.0 [facility] Comment on above: Performed By: #### C BC #### [facility] [address] [place] [address] Dr. Reema Mireles IG # 0.01 10e3/ul Normal 0.00-0.03 [facility] Comment on above: Performed By: #### C BC #### [facility] [address] [place] [address] Dr. Reema Mireles IG % 0.1 % Normal 0.0-0.5 [facility] Comment on above: Performed By: #### C BC #### [facility] [address] [place] [address] Dr. Reema Mireles LYMPH # 1.9 103/ul Normal 1.2-3.8 [facility] Comment on above: Performed By: #### C BC #### [facility] [address] [place] [address] Dr. Reema Mireles Lymphocytes/100 WBC (Bld) 27.8 % Normal 20.5-60.0 [facility] Comment on above: Performed By: #### C BC #### [facility] [address] [place] [address] Dr. Reema Mireles MANUAL DIFF REQ NO Normal [facility] Comment on above: Performed By: #### C BC #### [facility] [address] [place] [address] Dr. Reema Mireles MCH (RBC) [Entitic mass] 30.5 pg Normal 26.7-34.0 [facility] Comment on above: Performed By: #### C BC #### [facility] [address] [place] [address] Dr. Reema Mireles MCHC (RBC) [Mass/Vol] 34.4 g/dL Normal 29.9-35.2 [facility] Comment on above: Performed By: #### C BC #### [facility] [address] [place] [address] Dr. Reema Mireles MCV (RBC) [Entitic vol] 88.8 fL Normal 81.0-99.0 [facility] Comment on above: Performed By: #### C BC #### [facility] [address] [place] [address] Dr. Reema Mireles MONO # 0.8 103/ul Normal 0.3-0.8 [facility] Comment on above: Performed By: #### C BC #### [facility] [address] [place] [address] Dr. Reema Mireles Monocytes/100 WBC (Bld) 11.2 % Normal 1.7-12.0 [facility] Comment on above: Performed By: #### C BC #### [facility] [address] [place] [address] Dr. Reema Mireles NEUT # 4.0 103/ul Normal 1.4-6.5 [facility] Comment on above: Performed By: #### C BC #### [facility] [address] [place] [address] Dr. Reema Mireles Neutrophils/100 WBC (Bld) 58.5 % Normal 43.0-75.0 [facility] Comment on above: Performed By: #### C BC #### [facility] [address] [place] [address] Dr. Reema Mireles Platelet mean volume (Bld) [Entitic vol] 10.0 fL Normal 9.5-13.5 [facility] Comment on above: Performed By: #### C BC #### [facility] [address] [place] [address] Dr. Reema Mireles PLT 361 103/ul Normal 150-450 [facility] Comment on above: Performed By: #### C BC #### [facility] [address] [place] [address] Dr. Reema Mireles RBC 4.29 106/ul Normal 4.20-5.40 [facility] Comment on above: Performed By: #### C BC #### [facility] [address] [place] [address] Dr. Reema Mireles WBC 6.8 103/ul Normal 4.0-11.0 [facility] Comment on above: Performed By: #### C BC #### [facility] [address] [place] [address] Dr. Reema Mireles PREG QUANT HCGon 10-25-2021 HCG QUANT 1 mIU/mL Normal [facility] Comment on above: Performed By: #### P REGQNT #### [facility] [address] [place], [place] [address] Dr. Reema Mireles HCG RANGE SEE BELOW Normal [facility] Comment on above: Result Comment: 5-50 0-1 WEEK 40-300 1-2 WEEKS 100-1,000 2-3 WEEKS 500-6,000 3-4 WEEKS 5,000-200,000 1-2 MONTHS 10,000-100,000 2-3 MONTHS 3,000-50,000 2ND TRIMESTER 1,000-50,000 3RD TRIMESTER Performed By: #### P REGQNT #### [facility] [address] [place] [address] Dr. Reema Mireles [facility] 09[facility]29 SARS-CoV-2 (COVID-19) RNA FRANKIE+probe Ql (Unsp spec) Not detected Normal NOT DETECTED [facility] Comment on above: Result Comment: This test is not yet approved or cleared by the [place] FDA. When there are no FDA-approved or cleared tests available, and other criteria are met, FDA can make tests available under an emergency access mechanism called an Emergency Use Authorization (EUA). The EUA for this test is supported by the [place] of Health and Human Service's (HHS's) declaration [...] SARS-CoV-2. Performed By: #### C VDTBH #### [facility] [address] [place] [id number] Reema Mireles Vital Signs Date Time Vital Sign Value Performing Clinician Facility 11-12-2023 14:15-0500 Body weight 108.86 kg Devan Tello [employer] Work Phone: [facility] 11-12-2023 14:15-0500 Diastolic blood pressure 72 mm[Hg] Devan Fernandezo DO Work Phone: [facility] 11-12-2023 14:15-0500 Systolic blood pressure 122 mm[Hg] Devan Omer DO Work Phone: [facility] 04-12-2022 21:04-0400 Diastolic blood pressure 84 mm[Hg] [facility] 04-12-2022 21:04-0400 Heart rate 82 /min [facility] [facility] 04-12-2022 21:04-0400 Respiratory rate 16 /min [facility] 04-12-2022 21:04-0400 SaO2% (BldA) [Mass fraction] 98 % [facility] 04-12-2022 21:04-0400 Systolic blood pressure 120 mm[Hg] [facility] 04-12-2022 20:32-0400 gluc 80 mg/dL [facility] Comment on above: Result Comment: not taken due to pt refu jimmie of any injection 04-12-2022 20:32-[address] [facility] 04-12-2022 19:25-0400 Body temperature 99.32 [degF] [facility] 04-12-2022 19:25-0400 Diastolic blood pressure 84 mm[Hg] [facility] 04-12-2022 19:25-0400 Heart rate 90 /min [facility] 04-12-2022 19:25-0400 Respiratory rate 18 /min [facility] 04-12-2022 19:25-0400 SaO2% (BldA) [Mass fraction] 98 % [facility] 04-12-2022 19:25-0400 Systolic blood pressure 118 mm[Hg] [facility] 04-09-2022 12:20-0400 Body height 165.1 cm Deonna Cavanaughmond Other [facility] Other 04-09-2022 12:20-0400 Body mass index (BMI) [Ratio] 35.61 kg/m2 Deonna Nazanin Other [facility] Other 04-09-2022 12:20-0400 Body temperature 98.4 [degF] Deonna Nazanin Other [facility] Other 04-09-2022 12:20-0400 Body weight 97.07 kg Deonna Nazanin Other [facility] Other 04-09-2022 12:20-0400 Diastolic blood pressure 83 mm[Hg] Deonna Nazanin Other [facility] Other 04-09-2022 12:20-0400 Respiratory rate 18 /min Deonna Nazanin Other [facility] Other 04-09-2022 12:20-0400 SaO2% (BldA) [Mass fraction] 99 % Deonna Nazanin Other [facility] Other 04-09-2022 12:20-0400 Systolic blood pressure 135 mm[Hg] Deonna Nazanin Other [facility] Other 04-02-2022 19:00-0400 Body height 165.1 cm Deonna Nazanin Other [facility] Other 04-02-2022 19:00-0400 Body mass index (BMI) [Ratio] 35.71 kg/m2 Deonna Nazanni Other [facility] Other 04-02-2022 19:00-0400 Body temperature 98.1 [degF] Deonna Back Other [facility] Other 04-02-2022 19:00-0400 Body weight 97.34 kg Deonna Back Other [facility] Other 04-02-2022 19:00-0400 Diastolic blood pressure 83 mm[Hg] Deonna Back Other [facility] Other 04-02-2022 19:00-0400 Respiratory rate 18 /min Deonna Back Other [facility] Other 04-02-2022 19:00-0400 SaO2% (BldA) [Mass fraction] 100 % Deonna Back Other [facility] Other 04-02-2022 19:00-0400 Systolic blood pressure 134 mm[Hg] Deonna Back Other [facility] Other Encounters Encounter Date Encounter Type Care Provider Facility Start: 05-12-2024 End: 05-12-2024 ambulatory DEVAN OMER Not Available Start: 04-14-2024 End: 04-14-2024 ambulatory CYDNEY DERIC Not Available Start: 03-08-2024 End: 03-08-2024 ambulatory DEVAN OMER Not Available Start: 02-02-2024 End: 02-02-2024 ambulatory CYDNEY DERIC Not Available Start: 01-21-2024 End: 01-21-2024 ambulatory DEVAN OMER Not Available Start: 01-14-2024 End: 01-14-2024 ambulatory CYDNEY DERIC Not Available Start: 01-05-2024 End: 01-05-2024 ambulatory DEVAN OMER Not Available Start: 12-28-2023 End: 12-28-2023 ambulatory CYDNEY DERIC Not Available Start: 12-14-2023 End: 12-14-2023 ambulatory DEVAN OMER Not Available Start: 11-26-2023 End: 11-26-2023 ambulatory CYDNEY LEOS Not Available Start: 11-12-2023 End: 11-12-2023 Office outpatient visit 15 minutes Devan Fernandezo DO Work Phone: [facility] Comment on above: Third trimester preg padmini; Excessive growth affecting management of in third trimester, single or unspecified fetus Start: 11-12-2023 End: 11-12-2023 ambulatory DEVAN OMER Not Available Start: 11-03-2023 Clinisync Result Encounter Cydney FARR Work Phone: [facility] Unsolicited Start: 11-03-2023 Clinisync Result Encounter Cydney Leos CHIKA Work Phone: [facility] Unsolicited Start: 10-15-2023 End: 10-15-2023 ambulatory CYDNEY LEOS Not Available Start: 09-17-2023 End: 09-17-2023 ambulatory DEVAN FERNANDEZO Not Available Start: 08-13-2023 End: 08-13-2023 ambulatory [...] Emergency department patient visit Kimberleealisa Baxter Antony [facility] Start: 04-10-2022 End: 04-10-2022 ambulatory Deonna Back Other [facility] Other Start: 04-10-2022 Telephone encounter Deonna Back [facility] Start: 04-09-2022 End: 04-09-2022 ambulatory Deonna Back Other [facility] Other Start: 04-09-2022 Office outpatient vi sit 15 minutes Deonna Back [facility] Start: 04-09-2022 End: 04-09-[address] LUIS ANTONIO SUTTON Facility:[facility] Start: 04-02-2022 (URG) Urgent Care Visit Deonna pace [facility] Start: 04-02-2022 End: 04-02-2022 ambulatory Deonna Back Other [facility] Other Start: 10-25-2021 End: 10-25-[address] ADRYAN MARIE Facility:[facility] Start: 10-24-2021 Encounter for preprocedural laboratory examination DR DEVAN TELLO [facility] Start: 10-22-2021 End: 10-23-[address] ADRYAN MARIE Facility:[facility] Start: 10-22-2021 End: 10-23-2021 Encounter for preprocedural laboratory examination DR ADRYAN MARIE Facility:[facility] Start: 10-19-2021 Encounter for other preprocedural examination DR DEVAN TELLO [facility] Start: 10-17-2021 End: 10-18-[address] ADRYAN [...] AM EST Routine [facility] [address] [place] [phone] Cydney Leos PA [address] [place], [place] [phone] [facility] Start: 11-26-2023 End: 11-26-2023 Professional / ancillary services management 11/26/2023 10:30 AM EST Ancillary Procedure [facility] [address] [facility] [place] [phone] [facility] Start: 11-12-2023 End: 11-12-2024 US for US OB SCAN FOR GROWTH Imaging Routine Excessive growth affecting management of in third trimester, single or unspecified fetus Expected: 11/12/2023 (Approximate), Expires: 11/12/2024 [facility] Work Phone: Comment on above: Expected: 11/12/2023 (Approximate), Expires: 11/12/2024 Start: 11-12-2023 End: 11-12-2023 Patient encounter procedure 11/12/2023 10:50 AM EST Routine [facility] [address] [facility] [place] [phone] Devan Tello DO [address] [facility] [place] [address] [facility] Payers Date Payer Category Payer Unknown [facility]ICA[facility] [id number] 2023-Present [address] [place] [address] [id number] 2023 Medicaid [id number] 2001 Unknown [id number] 2.16.840.1.833582.3.579.2. 593 2001 Unknown [id number] 2.16.840.1.595822.3.579.2. 593 2001 Unknown [id number] 2.16.840.1.820624.3.579.2. 593 2001 Unknown [id number] 2.16.840.1.535801.3.579.2. 593 2001 Unknown [id number] 2.16.840.1.453025.3.579.2. 593 2001 Unknown [id number] 2.16.840.1.918108.3.579.2. 593 2001 Unknown [id number] 2.16.840.1.441281.3.579.2. 593 2001 Unknown [id number] 2.16.840.1.197842.3.579.2. 593 2001 Unknown [id number] 2.16.840.1.679884.3.579.2. 593 2001 Unknown [id number] 2.16.840.1.991646.3.579.2. 593 2001 Unknown [id number] 2.16.840.1.014299.3.579.2. 593 2001 Unknown [id number] 2.16.840.1.907649.3.579.2. 1259 2001 Unknown [id number] 2.16.840.1.436897.3.579.2. 1259 2001 Unknown [id number] 2.16.840.1.546151.3.579.2. 1259 2001 Unknown [id number] 2.16.840.1.630786.3.579.2. 1259 2001 Unknown [id number] 2.16.840.1.796414.3.579.2. 1259 2001 Unknown [id number] 2.16.840.1.415893.3.579.2. 1259 2001 Unknown [id number] 2.16.840.1.920831.3.579.2. 9 2001 Unknown [id number] 2.16.840.1.115687.3.579.2. 9 2001 Unknown [id number] 2.16.840.1.688074.3.579.2. 9 2001 Unknown [id number] 2.16.840.1.838121.3.579.2. 9 2001 Unknown [id number] 2.16.840.1.766987.3.579.2. 9 2001 Unknown [id number] 2.16.840.1.121761.3.579.2. 9 2001 Unknown [id number] 2.16.840.1.779200.3.579.2. 9 2001 Unknown [id number] 2.16.840.1.361159.3.579.2. 1259 1958 [facility] [id number] 2.16.840.1.241635.19 Social History Date Type Detail Facility Unknown if ever smoked [facility] [employer] Other Sex Assigned At [facility] [employer] Other Tobacco smoking status No Smoking Status Entered [facility] Start: 06-20-2023 Tobacco smoking status CTIS Tobacco smoking consumption unknown [facility] Start: 10-15-2023 Alcohol intake Lifetime non-d hermes (finding) [facility] Start: 06-20-2023 Tobacco Comment Current smoker (frequency unknown) [facility] Start: 05-06-2023 [facility] Start: 2001 Sex Assigned At Not on file [facility] Goals Date Patient Goal Desired Activity /State Personal health goal Functional Status Date Assessment Result Facility 04-12-2022 Functional Status N/A [facility] History of Present illness Narrative 11-12-2023 [...] Devan Tello DO documented in this encounter [facility] Discharge instructions 04-12-2022 Note Date & [...] help with your condition: Managing pain Take xfmx-mvf-imeqhns and prescription medicines only as told by [...] 09/14/2006 Document Revised: 04/04/2019 Document Reviewed: 04/04/2019 [employer] Patient Education 2020 [employer]. 04/12/2022 21:07:38 Vertigo Vertigo Vertigo is the [...] if you feel dizzy. General instructions Take vogs-sze-xdavvbn and prescription medicines only as told by [...] 06/24/2006 Document Revised: 08/08/2019 Document Reviewed: 08/08/2019 [employer] Patient Education 2020 [employer]. Follow Up Care 04/12/2022 19:25:17 With:ADRYAN MARIE Address: [address] [place] [address] Business (1) When:04/15/2022 20:55:24 Comments:Return to the emergency room if her headache gets worse, vertigo becomes persistent or any new symptoms [facility] Evaluation note 04-09-2022 Note Date & [...] She was prescribed Zofran with no improvement. [facility] Other Evaluation note 04-02-2022 Note Date & [...] 3 days. No swimming for a week [facility] Other Clinical Note 10-25-2021 Note Date & Type Note Facility 10-25-2021 Note OPERATIVE NOTE PROCEDURE: Diagnostic laparoscopy. PREOPERATIVE DIAGNOSIS: Pelvic pain, dyspareunia dysmenorrhea. POSTOPERATIVE DIAGNOSIS: Pelvic pain, dyspareunia dysmenorrhea. ANESTHESIA: General. SURGEON: Devan Tello D.O. ELECTRIC ORGAN ASSEMBLER: JAE Worley URINE OUTPUT: Yellow and clear. [...] Room in stable condition. [facility] Signed and Approved by: DR DEVAN TELLO . 11/01/2021 17:31:00 [facility] Evaluation + Plan note Note Date & Type Note Facility Evaluation + Plan note No data available for this section [facility] Evaluation note Note Date & Type Note Facility Evaluation note No Information [facility] [employer] Other Evaluation note Note Date & Type [...] endometriosis Hospitalization History RSV as a baby [facility] [employer] Other Progress note Note Date & Type Note Facility Progress note No data available for this section [facility] Summary Purpose Family History No Family History Records FoundNo Family History Records FoundNo Family History Records Found Advance Directives No Advanced Directives Records FoundNo Advanced Directives Records FoundNo Advanced Directives Records Found Additional Source Comments REASON FOR VISIT (unrecogniz ed section and content) Reason Comments Routine Visit Care Team (unrecognized sect ion and content) Children Librarian Relationship Specialty Start Date End Date Adryan Marie MD [address] [place] [address] PCP - General Family Medicine 06/19/23 Children Librarian Relationship Specialty Start Date End Date Adryan Marie MD [address] [place] [address] PCP - General Family Medicine 06/19/23 INFORMATION SOURCE (unrecogn ized section and content) DATE CREATED AUTHOR 04/26/2022 [facility] DATE CREATED AUTHOR AUTHOR'S ORGANIZ ATION 09/19/2022 [facility] [place] [employer] [facility] DATE CREATED AUTHOR AUTHOR'S ORGANIZ ATION 05/13/2024 [facility] FOR RECORDS PERTAINING TO PATIENTS [...] BE BASED ON THE PRIMARY CLINICAL RECORDS. [employer] [facility]. provides no warranty or guarantee of the accuracy or completeness of information in this document.
--- NOTE | 2024-05-20 19:30 | ED.EAR1 ---
HPI - Ear Problem General Chief complaint: Ear Stated complaint: ear pain Time Seen by Provider: 05/20/24 19:19 Source: patient Mode of arrival: walk-in Limitations: no limitations History of Present Illness HPI Narrative: Patient is a 23-year-old female who presents to the emergency department for 2-day history of pain in the left ear with minimal associated nasal congestion. She states she uses Q-tips to itch her ear canals. She denies using ear buds. She thinks she may have seen clear drainage from the left ear. No fevers or other upper respiratory symptoms. She is not concerned for . She is not breast-feeding. She states pain radiates into the left side of the jaw. Related Data Previous Rx's ?Medication ?Instructions ?Recorded ketorolac 10 mg tablet 10 mg PO TID PRN pain #10 tabs 05/20/24 Allergies Allergy/AdvReac Type Severity Reaction Status Date / Time Sulfa (Sulfonamide Allergy Intermediate Rash Verified 05/20/24 19:03 Antibiotics) Review of Systems ROS Constitutional Denies: fever or chills Ears, nose, mouth, and throat Reports: ear pain, ear discharge and nasal congestion; Denies: throat pain Cardiovascular Denies: chest pain Respiratory Denies: shortness of breath or cough Gastrointestinal Denies: nausea or vomiting Integumentary/Breast Denies: rash Neurological Denies: headache, numbness in extremities or weakness in extremities Hematologic/Lymphatic Denies: easy bruising or easy bleeding [facility] Surgical History (Updated 02/02/24 @ 00:00 by ) Delivery by section Exam Narrative Exam Narrative: Gen.: Awake, alert, in no distress Head: Normocephalic, atraumatic ENT: Moist mucous membranes, left external canal is mildly edematous and erythematous compared to the right. Bilateral TMs are clear, no purulence or drainage in the canals noted. No facial swelling or mastoid swelling. Respiratory: No respiratory distress Extremities: Moves extremities equally Psych: Normal mood and affect Neuro: No focal neuro deficit Skin: Warm, dry, intact Constitutional Vital Signs, click to edit/add: Last Vital Signs Temp 98.1 F 05/20/24 19:00 Pulse 99 H 05/20/24 19:00 Resp 18 05/20/24 19:00 BP 134/94 H 05/20/24 19:00 Pulse Ox 99 05/20/24 19:00 O2 Del Method Room Air 05/20/24 19:00 Course Vital Signs Vital signs: Vital Signs Temperature 98.1 F 05/20/24 19:00 Pulse Rate 99 H 05/20/24 19:00 Respiratory Rate 18 05/20/24 19:00 Blood Pressure 134/94 H 05/20/24 19:00 Pulse Oximetry 99 05/20/24 19:00 Oxygen Delivery Method Room Air 05/20/24 19:00 Temperature 98.1 F 05/20/24 19:00 Pulse Rate 99 H 05/20/24 19:00 Respiratory Rate 18 05/20/24 19:00 Blood Pressure 134/94 H 05/20/24 19:00 Pulse Oximetry 99 05/20/24 19:00 Oxygen Delivery Method Room Air 05/20/24 19:00 Medical Decision Making MDM Narrative Medical decision making narrative: Consistent with mild otitis externa, patient discharged home with Ciprodex drops and NSAIDs as needed for pain. Follow-up with PCP and return to the ER if symptoms change or worsen. SUPERVISED APC VISIT, PHYSICIAN ATTESTATION: Based on the medical record the care appears appropriate. ? Medical Records Medical records reviewed: Yes I reviewed the patient's medical records Discharge Plan Discharge Stand Alone Forms: Portal Instructions Chief Complaint: Ear Clinical Impression: Left otitis externa Patient Disposition: Home, Self-Care Time of Disposition Decision: 19:28 Condition: Good Prescriptions / Home Meds: New ketorolac 10 mg tablet 10 mg PO TID PRN (Reason: pain) Qty: 10 0RF Print Language: Greenlandic Instructions: Sw[facility] (ED) Referrals: ADRYAN MOORE [Primary Care Provider] - 1 week
[2024-05-20] MEDS: CIPROFLOXACIN HCL/DEXAMETH 0.3%/0.1% OTIC SUSP 150 DROP/7.5 ML BOTTLE OT (19:35)
== END 2024-05-20 19:37 | disposition home or self-care (01) ==
PROVIDERS: Emergency Provider Student in an Organized Health Care Education/Training Program; PCP Family Medicine
DX: H60.92 Unspecified otitis externa, left ear (principal)
CPT/HCPCS: 99284

== ENCOUNTER 2024-05-23 10:23 | Emergency (ER) | payer OTHER, SELFPAY ==
[2024-05-23 10:26] VITALS: BP 136/72; PULSE 95; TEMP 36.7; O2SAT 98; BMI 34.9
--- OUTSIDE RECORDS SUMMARY | 2024-05-23 10:46 | XMS_ITS | CCD ---
Author Organization [facility] Care Team Providers Care Physician'S Aide Name Role Phone Deonna Back Unavailable ADRYAN [...] Consulting Unavailable CHIKA LEOS Attending Unavailable CHIKA LESO Admitting Unavailable LESLEY, DR LUIS ANTONIO Jorge [...] Facility (3 sources) Sulfacetamide Drug Allergy rash [place] Other (1 source) Sulfonamides (Antibiotic); Translations: [sulfa drugs] Drug allergy Hyperpyrexia (finding) [facility] (1 source) Sulfonamides (Antibiotic) Drug allergy (disorder) 07-26-20 14 [facility] (3 sources) Sulfonamides (Antibiotic) Drug Intolerance [...] BY MOUTH EVERY MORNING 0 10/06/2023 Active US-Huv-LT-[employer]-3 ( Gummies/DHA & FA) 0.4-32.5 MG chewable tablet (3 sources) Start: 06-19-2023 End: 06-18-2024 QD-Qse-VS-[employer]-3 ( Gummies/DHA & FA) 0.4-32.5 MG chewable tablet Indications: Missed menses Chew 32.5 mg in the morning. 30 tablet 11 06/19/2023 06/18/2024 Active Completed/Discontinued Medications Medication Drug Class(es) Dates Sig (Normalized) Sig (Original) [id number] 200 actuat albuterol 0.09 mg/actuat metered dose [...] / neomycin 3.5 mg/ml / polymyxin b [id number] unt/ml otic suspension (3 sources) Aminoglycoside Antibacterial, Polymyxin-class Antibacterial, Corticosteroid Start: 04-02-2022 Neomycin-Polymyx in-HC 3.5-20533-5 3 drops left ear Three times a [...] UA Negative Negative - 4(70) +++ mg/dL [facility] Blood, UA Negative Negative - 50 Cedric/mcL [facility] Clarity, UA Clear [facility] re Color, UA Yellow [facility] e Glucose, UA Negative Negative - 1999(110) ++++ mg/dL [facility] Interpretation and review of laboratory results Normal [facility] Ketones, UA Negative Negative - 160(16) ++++ mg/dL [facility] Leukocytes, UA Negative Negative - 500+++ Alessandro/mcL [facility] Nitrite, UA Negative Negative - Positive [facility] pH, UA 6.0 5 - 9 [facility] e Protein, UA Negative Negative - 1999(20) ++++ mg/dL [facility] Spec Grav, UA 1.020 1 - 1.03 [facility] Urobilinogen, UA 0.2 0.2 - 12 mg/dL [facility] ALL CBC WITH AUTO DIFFon BASOPHILS ABSOLUTE AUTO 0.0 [facility] Basophils/100 WBC (Bld) 0.3 % 0.2 - 2.0 % [facility] Eosinophils/100 WBC (Bld) 1.0 % 0.9 - 7.0 % [facility] Erythrocyte distribution width (RBC) [Ratio] 12.5 % 11.0 - 15.0 % [facility] Hematocrit (Bld) [Volume fraction] 35.1 % Low 36.0 - 48.0 % [facility] Hemoglobin (Bld) [Mass/Vol] 11.7 g/dL Low 12.0 - 16.0 g/dL [facility] GRANULOCY[facility] ABS AUTO 0.08 High [facility] Immature granulocytes/100 WBC (Bld) 0.6 % High 0.0 - 0.5 % [facility] Interpretation and review of laboratory results Abnormal [facility] LYMPHOCYTES ABSOLUTE AUTO 1.6 [facility] Lymphocytes/100 WBC (Bld) 11.9 % Low 20.5 - 60.0 % [facility] MCH (RBC) [Entitic mass] 30.7 pg 26.7 - 34.0 pg [facility] MCHC (RBC) [Mass/Vol] 33.3 g/dL 29.9 - 35.2 g/dL [facility] MCV (RBC) [Entitic vol] 92.1 fL 81.0 - 99.0 fL [facility] MONOCYTES ABSOLUTE AUTO 0.8 [facility] Monocytes/100 WBC (Bld) 5.5 % 1.7 - 12.0 % [facility] NEUTROPHILS ABSOLUTE AUTO 11.1 High [facility] Neutrophils/100 WBC (Bld) 80.7 % High 43.0 - 75.0 % [facility] Platelet mean volume (Bld) [Entitic vol] 10.6 fL 9.5 - 13.5 fL [facility] are TBH EO # 0.1 [facility] PLT 292 [facility] TB RBC 3.81 Low [facility] TBH WBC 13.8 High [facility] CBC AUTO DIFFon 09-14-2022 BASO # 0.0 103/ul Normal 0.0-0.1 [facility] Comment on above: Performed By: #### B MP, TSH #### [facility] [address] [address] [address] Reema Mireles Basophils/100 WBC (Bld) 0.6 % Normal 0.2-2.0 [facility] Comment on above: Performed By: #### B MP, TSH #### [facility] [address], [place] [address] Dr. Reema Mireles EO # 0.0 103/ul Normal 0.0-0.7 [facility] Comment on above: Performed By: #### B MP, TSH #### [facility] [address] [place] [address] Dr. Reema Mireles Eosinophils/100 WBC (Bld) 0.6 % Critically low 0.9-7.0 [facility] Comment on above: Performed By: #### B MP, TSH #### [facility] [address] [place] [address] Dr. Reema Mireles Erythrocyte distribution width (RBC) [Ratio] 11.9 % Normal 11.0-15.0 [facility] Comment on above: Performed By: #### B GURPREET, TSH #### [facility] [address] [place] [address] Dr. Reema Mireles Hematocrit (Bld) [Volume fraction] 37.8 % Normal 36.0-48.0 [facility] Comment on above: Performed By: #### B GURPREET, TSH #### [facility] [address] [place] [address] Dr. Reema Mireles Hemoglobin (Bld) [Mass/Vol] 13.5 g/dL Normal 12.0-16.0 [facility] Comment on above: Performed By: #### B GURPREET, TSH #### [facility] [address] [place] [address] Dr. Reema Mireles IG # 0.01 10e3/ul Normal 0.00-0.03 [facility] Comment on above: Performed By: #### B GURPREET, TSH #### [facility] [address] [place] [address] Dr. Reema Mireles IG % 0.2 % Normal 0.0-0.5 [facility] Comment on above: Performed By: #### B MP, TSH #### [facility] [address] [place] [address] Dr. Reema Mireles LYMPH # 1.6 103/ul Normal 1.2-3.8 [facility] Comment on above: Performed By: #### B GURPREET, TSH #### [facility] [address] [place] [address] Dr. Reema Mireles Lymphocytes/100 WBC (Bld) 25.5 % Normal 20.5-60.0 [facility] Comment on above: Performed By: #### B MP, TSH #### [facility] [address] [place] [address] Dr. Reema Mireles MANUAL DIFF REQ NO Normal [facility] Comment on above: Performed By: #### B MP, TSH #### [facility] [address] [place] [address] Dr. Reema Mireles MCH (RBC) [Entitic mass] 30.9 pg Normal 26.7-34.0 [facility] Comment on above: Performed By: #### B GURPREET, TSH #### [facility] [address] [place] [address] Dr. Reema Mireles MCHC (RBC) [Mass/Vol] 35.7 g/dL Critically high 29.9-35.2 [facility] Comment on above: Performed By: #### B GURPREET, TSH #### [facility] [address] [place] [address] Dr. Reema Mireles MCV (RBC) [Entitic vol] 86.5 fL Normal 81.0-99.0 [facility] Comment on above: Performed By: #### B GURPREET, TSH #### [facility] [address] [place] [address] Dr. Reema Mireles MONO # 0.5 103/ul Normal 0.3-0.8 [facility] Comment on above: Performed By: #### B GURPREET, TSH #### [facility] [address] [place] [address] Dr. Reema Mireles Monocytes/100 WBC (Bld) 8.5 % Normal 1.7-12.0 [facility] Comment on above: Performed By: #### B GURPREET, TSH #### [facility] [address] [place] [address] Dr. Reema Mireles NEUT # 4.1 103/ul Normal 1.4-6.5 [facility] Comment on above: Performed By: #### B GURPREET, TSH #### [facility] [address] [place] [address] Dr. Reema Mirelse Neutrophils/100 WBC (Bld) 64.6 % Normal 43.0-75.0 [facility] Comment on above: Performed By: #### B GURPREET, TSH #### [facility] [address] [place] [address] Dr. Reema Mireles Platelet mean volume (Bld) [Entitic vol] 9.9 fL Normal 9.5-13.5 [facility] Comment on above: Performed By: #### B GURPREET, TSH #### [facility] [address] [place] [address] Dr. Reema Mireles PLT 403 103/ul Normal 150-450 [facility] Comment on above: Performed By: #### B GURPREET, TSH #### [facility] [address] [place] [address] Dr. Reema Mireles RBC 4.37 106/ul Normal 4.20-5.40 [facility] Comment on above: Performed By: #### B GURPREET, TSH #### [facility] [address] [place] [address] Dr. Reema Mireles WBC 6.3 103/ul Normal 4.0-11.0 [facility] Comment on above: Performed By: #### B GURPREET, TSH #### [facility] [address] [place] [address] Dr. Reema Mireles PROF 14(COMP METB)on 09-14- 022 Albumin [Mass/Vol] 4.3 g/dL Normal 3.4-5.0 [facility] Comment on above: Performed By: #### B GURPREET, TSH #### [facility] [address] [place] [address] Dr. Reema Mireles Albumin/Globulin [Mass ratio] 1.2 {ratio} Normal [facility] Comment on above: Performed By: #### B GURPREET, TSH #### [facility] [address] [place] [address] Dr. Reema Mireles ALP [Catalytic activity/Vol] 79 U/L Normal 46-116 [facility] Comment on above: Performed By: #### B GURPREET, TSH #### [facility] [address] [place] [address] Dr. Reema Mireles ALT [Catalytic activity/Vol] 31 U/L Normal 14-59 [facility] Comment on above: Performed By: #### B GURPREET, TSH #### [facility] [address] [address] [address] Reema Mireles Anion gap [Moles/Vol] 12.1 mmol/L Normal [facility] Comment on above: Performed By: #### B GURPREET, TSH #### [facility] [address] [address] [address] Reema Mireles AST [Catalytic activity/Vol] 17 U/L Normal 15-37 [facility] Comment on above: Performed By: #### B GURPREET, TSH #### [facility] [address] [place] [address] Dr. Reema Mireles Bilirubin [Mass/Vol] 0.4 mg/dL Normal 0.2-1.0 [facility] Comment on above: Performed By: #### B GURRPEET, TSH #### [facility] [address] [place] [address] Dr. Reema Mireles Calcium [Mass/Vol] 8.9 mg/dL Normal 8.5-10.1 [facility] Comment on above: Performed By: #### B GURPREET, TSH #### [facility] [address] [place] [address] Dr. Reema Mireles Chloride [Moles/Vol] 98 mmol/L Normal 98-107 [facility] Comment on above: Performed By: #### B GURPREET, TSH #### [facility] [address] [place] [address] Dr. Reema Mireles CO2 [Moles/Vol] 27.0 mmol/L Normal 21.0-32.0 [facility] Comment on above: Performed By: #### B GURPREET, TSH #### [facility] [address] [place] [address] Dr. Reema Mireles Creatinine [Mass/Vol] 0.65 mg/dL Normal 0.55-1.02 [facility] Comment on above: Performed By: #### B GURPREET, TSH #### [facility] [address] [place] [address] Dr. Reema Mireles EGFR-AF MONGOLIAN >60 Normal >=60 [facility] Comment on above: Performed By: #### B MP, TSH #### [facility] [address] [place] [address] Dr. Reema Mireles EGFR-NON AF MONGOLIAN >60 Normal >=60 [facility] Comment on above: Performed By: #### B MP, TSH #### [facility] [address] [address] [address] Reema Mireles Globulin (S) [Mass/Vol] 3.5 g/dL Normal [facility] Comment on above: Performed By: #### B MP, TSH #### [facility] [address] [place] [address] Dr. Reema Mireles Glucose [Mass/Vol] 106 mg/dL Normal 74-106 [facility] Comment on above: Performed By: #### B MP, TSH #### [facility] [address] [place] [address] Dr. Reema Mireles Potassium [Moles/Vol] 3.1 mmol/L Critically low 3.5-5.1 [facility] Comment on above: Performed By: #### B MP, TSH #### [facility] [address] [place] [address] Dr. Reema Mireles Protein [Mass/Vol] 7.8 g/dL Normal 6.4-8.2 [facility] Comment on above: Performed By: #### B MP, TSH #### [facility] [address] [place] [address] Dr. Reema Mireles Sodium [Moles/Vol] 134 mmol/L Critically low 136-145 [facility] Comment on above: Performed By: #### B MP, TSH #### [facility] [address] [place] [address] Dr. Reema Mireles Urea nitrogen [Mass/Vol] 6.0 mg/dL Critically low 7.0-18.0 [facility] Comment on above: Performed By: #### B MP, TSH #### [facility] [address] [place] [address] Dr. Reema Mireles Urea nitrogen/Creatinine [Mass ratio] 9.2 mg/mg Normal [facility] Comment on above: Performed By: #### B GURPREET, TSH #### [facility] [address] [place] [address] Dr. Reema Mireles ACETONE SERUMon 08-11-2022 ACETONE Negative Normal NEGATIVE [facility] Comment on above: Performed By: #### B GURPREET, TSH #### [facility] [address] [place] [address] Dr. Reema Mireles CBC AUTO DIFFon 08-11-2022 BASO # 0.1 103/ul Normal 0.0-0.1 [facility] Comment on above: Performed By: #### B GURPREET, TSH #### [facility] [address] [place] [address] Dr. Reema Mireles Basophils/100 WBC (Bld) 0.5 % Normal 0.2-2.0 [facility] Comment on above: Performed By: #### B GURPREET, TSH #### [facility] [address] [place] [address] Dr. Reema Mireles EO # 0.1 103/ul Normal 0.0-0.7 [facility] Comment on above: Performed By: #### B GURPREET, TSH #### [facility] [address] [place] [address] Dr. Reema Mireles Eosinophils/100 WBC (Bld) 0.7 % Critically low 0.9-7.0 [facility] Comment on above: Performed By: #### B GURPREET, TSH #### [facility] [address] [place] [address] Dr. Reema Mireles Erythrocyte distribution width (RBC) [Ratio] 11.7 % Normal 11.0-15.0 [facility] Comment on above: Performed By: #### B GURPREET, TSH #### [facility] [address] [place] [address] Dr. Reema Mireles Hematocrit (Bld) [Volume fraction] 37.6 % Normal 36.0-48.0 [facility] Comment on above: Performed By: #### B GURPREET, TSH #### [facility] [address] [place] [address] Dr. Reema Mireles Hemoglobin (Bld) [Mass/Vol] 13.1 g/dL Normal 12.0-16.0 [facility] Comment on above: Performed By: #### B MP, TSH #### [facility] [address] [place] [address] Dr. Reema Mireles IG # 0.02 10e3/ul Normal 0.00-0.03 [facility] Comment on above: Performed By: #### B MP, TSH #### [facility] [address] [place] [address] Dr. Reema Mireles IG % 0.2 % Normal 0.0-0.5 [facility] Comment on above: Performed By: #### B MP, TSH #### [facility] [address] [place] [address] Dr. Reema Mireles LYMPH # 2.7 103/ul Normal 1.2-3.8 [facility] Comment on above: Performed By: #### B MP, TSH #### [facility] [address] [place] [address] Dr. Reema Mireles Lymphocytes/100 WBC (Bld) 28.5 % Normal 20.5-60.0 [facility] Comment on above: Performed By: #### B MP, TSH #### [facility] [address] [place] [address] Dr. Reema Mireles MANUAL DIFF REQ NO Normal [facility] Comment on above: Performed By: #### B MP, TSH #### [facility] [address] [place] [address] Dr. Reema Mireles MCH (RBC) [Entitic mass] 30.3 pg Normal 26.7-34.0 [facility] Comment on above: Performed By: #### B MP, TSH #### [facility] [address] [place] [address] Dr. Reema Mireles MCHC (RBC) [Mass/Vol] 34.8 g/dL Normal 29.9-35.2 [facility] Comment on above: Performed By: #### B MP, TSH #### [facility] [address] [address] [address] Reema Mireles MCV (RBC) [Entitic vol] 87.0 fL Normal 81.0-99.0 [facility] Comment on above: Performed By: #### B MP, TSH #### [facility] [address] [place] [address] Dr. Reema Mireles MONO # 0.8 103/ul Normal 0.3-0.8 [facility] Comment on above: Performed By: #### B MP, TSH #### [facility] [address] [place] [address] Dr. Reema Mireles Monocytes/100 WBC (Bld) 8.2 % Normal 1.7-12.0 [facility] Comment on above: Performed By: #### B MP, TSH #### [facility] [address] [place] [address] Dr. Reema Mireles NEUT # 5.9 103/ul Normal 1.4-6.5 [facility] Comment on above: Performed By: #### B MP, TSH #### [facility] [address] [place] [address] Dr. Reema Mireles Neutrophils/100 WBC (Bld) 61.9 % Normal 43.0-75.0 [facility] Comment on above: Performed By: #### B MP, TSH #### [facility] [address] [place] [address] Dr. Reema Mireles Platelet mean volume (Bld) [Entitic vol] 10.2 fL Normal 9.5-13.5 [facility] Comment on above: Performed By: #### B MP, TSH #### [facility] [address] [place] [address] Dr. Reema Mireles PLT 382 103/ul Normal 150-450 [facility] Comment on above: Performed By: #### B MP, TSH #### [facility] [address] [place] [address] Dr. Reema Mireles RBC 4.32 106/ul Normal 4.20-5.40 [facility] Comment on above: Performed By: #### B MP, TSH #### [facility] [address] [place] [address] Dr. Reema Mireles WBC 9.6 103/ul Normal 4.0-11.0 [facility] Comment on above: Performed By: #### B GURPREET, TSH #### [facility] [address] [place] [address] Dr. Reema Mireles CRPon 08-11-2022 CRP [Mass/Vol] mg/L Normal <=1.0 [facility] Comment on above: Performed By: #### B MP, TSH #### [facility] [address] [place] [address] Dr. Reema Mireles ER URINE PROFILEon Bilirubin Ql (U) Negative Normal NEGATIVE [facility] Comment on above: Performed By: #### B GURPREET, TSH #### [facility] [address] [place] [address] Dr. Reema Mireles Clarity (U) CLEAR Normal CLEAR [facility] Comment on above: Performed By: #### B GURPREET, TSH #### [facility] [address] [place] [address] Dr. Reema Mireles Color (U) LT. YELLOW Normal YELLOW [facility] Comment on above: Performed By: #### B GURPREET, TSH #### [facility] [address] [place] [address] Dr. Reema ELIZALDE A micrscopic examination will be performed if indicated. Normal [facility] Comment on above: Performed By: #### B GURPREET, TSH #### [facility] [address] [place] [address] Dr. Reema Mireles Glucose Ql (U) Negative Normal NEGATIVE [facility] Comment on above: Performed By: #### B GURPREET, TSH #### [facility] [address] [place] [address] Dr. Reema Mireles Hemoglobin Ql (U) Negative Normal NEGATIVE [facility] Comment on above: Performed By: #### B GURPREET, TSH #### [facility] [address] [place] [address] Dr. Reema Mireles Ketones Ql (U) Negative Normal NEGATIVE [facility] Comment on above: Performed By: #### B MP, TSH #### [facility] [address] [place] [address] Dr. Reema Mireles LEUKOCYTES Negative Normal NEGATIVE [facility] Comment on above: Performed By: #### B MP, TSH #### [facility] [address] [place] [address] Dr. Reema Mireles Nitrite Ql (U) Negative Normal NEGATIVE [facility] Comment on above: Performed By: #### B MP, TSH #### [facility] [address] [place] [address] Dr. Reema Mireles pH (U) 5.5 [pH] Normal 5-9 [facility] Comment on above: Performed By: #### B MP, TSH #### [facility] [address] [place] [address] Dr. Reema Mireles SPEC GRAVITY <=1.005 Abnormal 1.005-<=1.025 [facility] Comment on above: Performed By: #### B GURPREET, TSH #### [facility] [address] [place] [address] Dr. Reema Mireles UA PROTEIN Negative Normal NEGATIVE/ TRACE [facility] Comment on above: Performed By: #### B GURPREET, TSH #### [facility] [address] [place] [address] Dr. Reema Mireles UR MICRO IND NOT INDICATED Normal [facility] Comment on above: Performed By: #### B GURPREET, TSH #### [facility] [address] [place] [address] Dr. Reema Mireles Urobilinogen Qn (U) 0.2 {Renny'U}/dL Normal 0.2 - 1. 0 [facility] Comment on above: Performed By: #### B MP, TSH #### [facility] [address] [place] [address] Dr. Reema Mireles LIPASEon 08-11-2022 Lipase [Catalytic activity/Vol] 71.0 U/L Critically low 73.0-393.0 [facility] Comment on above: Performed By: #### B MP, TSH #### [facility] [address] [place] [address] Dr. Reema Mireles URon 08-11-2022 , QUAL Negative Normal NEGATIVE [facility] Comment on above: Performed By: #### C VDTB #### [facility] [address] [place] [address] Dr. Reema Mireles PROF 14(COMP METB)on 022 Albumin [Mass/Vol] 4.3 g/dL Normal 3.4-5.0 [facility] Comment on above: Performed By: #### B MP, TSH #### [facility] [address] [place] [address] Dr. Reema Mireles Albumin/Globulin [Mass ratio] 1.2 {ratio} Normal [facility] Comment on above: Performed By: #### B MP, TSH #### [facility] [address] [place] [address] Dr. Reema Mireles ALP [Catalytic activity/Vol] 70 U/L Normal 46-116 [facility] Comment on above: Performed By: #### B MP, TSH #### [facility] [address] [place] [address] Dr. Reema Mireles ALT [Catalytic activity/Vol] 16 U/L Normal 14-59 [facility] Comment on above: Performed By: #### B MP, TSH #### [facility] [address] [place] [address] Dr. Reema Mireles Anion gap [Moles/Vol] 10.5 mmol/L Normal [facility] Comment on above: Performed By: #### B MP, TSH #### [facility] [address] [place] [address] Dr. Reema Mireles AST [Catalytic activity/Vol] 8 U/L Critically low 15-37 [facility] Comment on above: Performed By: #### B MP, TSH #### [facility] [address] [place] [address] Dr. Reema Mireles Bilirubin [Mass/Vol] 0.3 mg/dL Normal 0.2-1.0 [facility] Comment on above: Performed By: #### B MP, TSH #### [facility] [address] [address] [address] Reema Mireles Calcium [Mass/Vol] 9.0 mg/dL Normal 8.5-10.1 [facility] Comment on above: Performed By: #### B MP, TSH #### [facility] [address] [address] [address] Reema Mireles Chloride [Moles/Vol] 104 mmol/L Normal 98-107 [facility] Comment on above: Performed By: #### B MP, TSH #### [facility] [address] [place] [address] Dr. Reema Mireles CO2 [Moles/Vol] 26.5 mmol/L Normal 21.0-32.0 [facility] Comment on above: Performed By: #### B MP, TSH #### [facility] [address] [place] [address] Dr. Reema Mireles Creatinine [Mass/Vol] 0.79 mg/dL Normal 0.55-1.02 [facility] [facility] Comment on above: Performed By: #### B MP, TSH #### [facility] [address] [place] [address] Dr. Reema Mireles EGFR-AF MONGOLIAN >60 Normal >=60 [facility] Comment on above: Performed By: #### B MP, TSH #### [facility] [address] [place] [address] Dr. Reema Mireles EGFR-NON AF MONGOLIAN >60 Normal >=60 [facility] Comment on above: Performed By: #### B MP, TSH #### [facility] [address] [place] [address] Dr. Reema Mireles Globulin (S) [Mass/Vol] 3.5 g/dL Normal [facility] Comment on above: Performed By: #### B MP, TSH #### [facility] [address] [place] [address] Dr. Reema Mireles Glucose [Mass/Vol] 106 mg/dL Normal 74-106 [facility] Comment on above: Performed By: #### B MP, TSH #### [facility] [address] [place] [address] Dr. Reema Mireles Potassium [Moles/Vol] 3.0 mmol/L Critically low 3.5-5.1 [facility] Comment on above: Performed By: #### B MP, TSH #### [facility] [address] [place] [address] Dr. Reema Mireles Protein [Mass/Vol] 7.8 g/dL Normal 6.4-8.2 [facility] Comment on above: Performed By: #### B MP, TSH #### [facility] [address] [place] [address] Dr. Reema Mireles Sodium [Moles/Vol] 138 mmol/L Normal 136-145 [facility] Comment on above: Performed By: #### B GURPREET, TSH #### [facility] [address] [place] [address] Dr. Reema Mireles Urea nitrogen [Mass/Vol] 8.0 mg/dL Normal 7.0-18.0 [facility] Comment on above: Performed By: #### B MP, TSH #### [facility] [address] [place] [address] Dr. Reema Mireles Urea nitrogen/Creatinine [Mass ratio] 10.1 mg/mg Normal [facility] Comment on above: Performed By: #### B GURPREET, TSH #### [facility] [address] [place] [address] Dr. Remea Mireles PROTIMEon 08-11-2022 INR Coag (PPP) [Relative time] 1.00 {INR} Normal [facility] Comment on above: Performed By: #### P T, PTT #### [facility] [address] [place] [address] Dr. Reema Mireles INR GUIDELINES SEE BELOW Normal [facility] Comment on above: Result Comment: FELICIANO RED INR: 2.0 - 3.0 CONDITIONS NOT LISTED BELOW 2.5 - 3.5 FOR PROSTHETIC HEART VALVE REPLACEMENT 2.5 - 3.5 RECURRENT THROMBOSIS Performed By: #### P T, PTT #### [facility] [address] [place] [address] Dr. Reema Mireles PT Coag (PPP) [Time] 10.8 s Normal 9.0-11.6 [facility] Comment on above: Performed By: #### P T, PTT #### [facility] [address] [place] [address] Dr. Reema Mireles PTTon 08-11-2022 aPTT Coag (Bld) [Time] 30.8 s Normal 22.3-36.2 [facility] Comment on above: Performed By: #### P T, PTT #### [facility] [address] [place] [address] Dr. Re[facility]ire[facility] 10 mm/hr Normal <=20 [facility] Comment on above: Performed By: #### B MP, TSH #### [facility] [address] [place] [address] Dr. Reema Mireles TSHon 08-11-2022 TSH 3.313 uIU/mL Normal 0.358-3.740 [facility] Comment on above: Performed By: #### B MP, TSH #### [facility] [address] [place] [address] Dr. Reema Mireles Discharge Instructionson Discharge Instructions [id number] #[id number]:127 Normal [facility] Comment on above: Other Comment: wrong patient STOOL CULTUREon 04-20-2022 Campylobacter Culture Final report Normal [facility] Comment on above: Performed By: #### B MP, TSH #### [facility] [address] [place] [address] Dr. Reema Mireles E coli Shiga Toxin EIA Negative Normal Negative [facility] Comment on above: Performed By: #### B MP, TSH #### [facility] [address] [place] [address] Dr. Reema Mireles Result 1 Comment Normal [facility] Comment on above: Result Comment: No S almonella or Shigella recovered. Performed By: #### B MP, TSH #### [facility] [address] [place] [address] Dr. Reema Mireles Result Comment: No C ampylobacter species isolated. Salmonella/Shigella Screen Final report Normal [facility] Comment on above: Performed By: #### B MP, TSH #### [facility] [address] [place] [address] Dr. Reema Mireles Coding Summary.on 04-14-2022 Coding Summary. CD:[id number] Gh0bWw+PGhlYWQ+PE1FV VQqU55nhQWbqF2TA9oIL U0KCPAIHWVODR6ZII5zl KX1PAvfF2QfhtDk ZdrlyUUqTC58FGc0QAH1 yOewHZoeoK7vqVDlX1x0 ZzGjLB00mC01CXmsGCEx BkE7IpBgfoaxfXXk U2yuJmXogZJpUsr+PHRh YmxlIHdpZHRoPScxMDAl GtWlhUjzCN1fHg9yOBSx LWNvbGxhcHNlOiBj k8sqWKXfUIwfCR9roCpg O1MvdYM6SVRub0s2Ql21 dHI+CAKqYKA8aLcfVDub u874KvDcn1fvZOP5 yREqOMnlVZS4T18yd9Q8 WBLzXDVjFRP5yCB8vF0p pCyzhkafA7YkoGLwHfY4 BEF9zKJfaD7coQnt btxfjD8qHmv+Y06DKR1L PHOPHC2CEmh5F5VoGmaw dHI+JQ50HIKsKD25xNAe dZNkn1ruqOv2IuMo LVGiJAD2sVewLHheo1Du XUIzI50yuSVzq4Q0ZTXr tQqnaCJhUjUopVA6aF3p HPmmqcvrn6jmsmnw Gzvnf0chck57hF07F05b ELspUIPcTHL2HYOpEPLi fGtuew3akG4uIc1+IDxj x1nkk4jawBi2KxQl YBAnvdOdnHhwSGS7v9Qd Fj60Q0RhqPcew0ZnLmz0 go43wCJov9B9jCW7ADso TLDptC7oBMpsNqX4 FGTfSpEaiG77oHCeNRkn Kc3jrZujpGtjGF1wOGJy zqgzTECaoI2pHDUgvDCm yDgmZP7cSLVovyzi d313OuRzJCZ1UDVoqHPc P2LnwH5xSiYrXGFnCVEg U4ZlcSKkRDrkW769DGmi NuF1LWSpnvUrT9Nj CTWldClgRcY4r9F7Lv1M g3QxplfzOLW4STevCRC7 XrS7GvTxPpT3H5KiCxm4 YDQyaUhnDA3kK0Mu AIAzrxkdukmhsPD2EUXa ZJFwrV09pTRsBSpxXg9w v7G2z809JFIdZYIsgC35 Oe4weJbxCJEukMPC kD8okxmkt0osqwqcTbXx RDQcANe4SOg3KIAjiGuy UtDhHKF5KdK9ZZW0kLQq kU4miJhqadsvgE2w Oyc+U01gyG2wZBW2HVY8 hxzoHUJovjSqEL52ID78 O6FoMmagmOWteNS+PGRp nnAcsVdqPO3hBkCl c0zho6RyQLcbN2BjQPXs SQftCsc0EQWeYFE3fRE6 aN5iAOUgPZvin3U2hUT2 F8AlwtClof1sg2sv AYAgEPgsT83qrFXgc9U9 BKHjpVT6HCWtjKvsKpKa kB46Ofe+ZEVjpUiyj2Ip Vonyx4bou3dltDc7 IjMwJSIgdmFsaWduPSJ0 d9PrTc61Q78hNVooUYKq NTEwNJMzHANylJfsyt0p tH9kMz7+PGNvbCB3 kPS8qD1dGVAmWfL6WBas H223OyUcmJMeZetkm9yv b3bykCt5VwSqHNSzdnEi wXjrXSE1o6UiZe51 R78cWIrkJRNfYDOlAINh AMBpyCjieu1soY5yMu8+ HF5ir6uhey41fA78wUV+ WOXjIXP1wDrnWPmu MLWaqW0vMUreJeJ0KUGx IhRqwM75dNUoFDymRv9r uGqemBnuKO0dVLAsiehq u278QdHxg9ueMXPl vALyMDsoYZG9Q31xw2M8 AGXxPWGdAHV4fUV4bZ2a bGlnbjogbGVmdDsgdmVy wBgkDDesPSnuJ103 IHRvcDsnPlBhdGllbnQg CmXmTVm0U6SlIuj0IVAu gRyhVB0idHSrDNikQz2u nBbwlRvkUL6cPXVd ndwps379DlMjn9cjDLYi wOUtERchZHD8L21zz9C7 LITcPVIgLJF1nPK2zN1f bGlnbjogbGVmdDsg lmXnvRibPRheRJegR695 IHRvcDsnPkJpcnRoIERh wTP1LN24UJ44eNAka7N4 nIV2X4YxGOMfgfjv kroouCJ1LLVkPVLynV83 Rs9caHvaYu5vJQHwHSU8 WJOhgAGuO6KmzG4jRbGt ZGCuMYCfW3RnlDNb FFwbY126HGvlRoW3FNDh cbOhU7YcRPOfkNjmLbK9 w7P1Ff3DQ1O2EG52JU15 uHOje3G2bNF3H1Zg RQJfqvvuvhsqcFI4LAQg UGKhyJ69Xq6ziJwgRj3l SOEtMDZ5IURcbWQzI9Sl sX5tVnStFZIrYGOs U7AxvZMtIAcuX562STuo AxO6ZZTvnoYuN6MbFSZj yNahVfT4s7E9Cy5DJPq7 QW25MU84oHWzp8N1 tMM9X2DzPYZxeicuklwp aVW3RZRkDEDehK15Hv4d fNikJk8eNCNaMRE2GKCn fQEjA1PvjA2cVqRr BLJqJZOnQ2UxfYSwEFww O162NHsfHrN6SPUbqjFs J1WqUXViuMsfHuA3g6L6 Zf6QDQDkZQ11ZLL2 vRV0XF85HT62C3SwMuow dGFibGU+PHRhYmxlIHdp ZHRoPScxMDAlJyBzdHls HA1cZk6yHDQuREZc vDbbuHMgMyZer8gvOMJy BXzhIM1wfShyZ1BreDN6 WPQhs4c1Wh69J47sW8Un dXA+TBNfzJV0oCH2 qO0vVzJdAaF5GArvG295 GpUmeKLpMvyqu1nhq3oh vYt4VfC2WHMotsMzvWif OHU4l1XlNs79A04h IHdpZHRoPSIxNSUiIHZh xJysrm9ijO0hBi2+PGNv nWQ6gFN3cS2pOpPsStB4 MTwqY526GnNufDGi Jsxmm6zln2uzaMt2RcJe NOMhsvQfoKizEYG8y2Fo De20P2KdaFowl0YxKbv7 ln85iIYhq5O6bMD0 W6JeBTSgcecgxJOnsUyv AJ6sRFFlqhmrEFKnuO7s SHOoU3d5QuRpSlO9HEeo F2NjshM9ELBkwQLu OAcnBPI8S74qu5Z9ZLNp AZBmKQA3jCA0qH1ozZat bjogbGVmdDsgdmVydGlj BEkpBQdoZ032QAAb zXboFSRgzC1gBFGqbUQq yDtpGQ2yFJYkjixtOxnI MSLTQ92IK2nWLZYWXNSF IDX9D0WnWtr6AHYn zJbyZL8gvVZdWKrxUl3j iAjmtArrFH4kLOTgotze XUEntS4qFUTqfTCavEvr ON9zTGDpwbpay629 OjLuYEM8ZETwqAEfE3Af mL8wFyXtTHQaWDZuK7Hz jHAcFSwdJ433LCwcZcF5 WAHqzgImV6XfNCRq pYbwYaW7n0G2Xf2bLx3y XK2lAVEwPN60XB22wXUq z1M4yVZ9Q6PpAOWnfjcf esdbqUY1QTUxDTQv hJ34gPPkPZdeNs0gd3F3 k160EKHqDITbsF20Oy1u yTjgFAXodMCBhY3jknmh y6igsdurTbWnAEYz XGd4BUo1XIDoqJjuQsSf XJL3AwJ9TWL6oUMdeP2c cEthxjqueJ2pKqf+MjAg JKXtyjG1R0GcXnr1 TPMrkKtmQE8vaQLmNJsz Qq6vgHcyoXftRC0kXTVv ctjnEZZocP5tHTRtwPDb nHfoTN9sFFOozqxe h250LxLeNYM2LWUsxKFm D0FycA1kAeYdOGRdHEAr Q7AeyMAvQHduP894ZWgy WsQ4UEWeudBmP1Zt ONPljGprShW9p0A7Lx7C VE1lvBR1M1SyAwy1XBOb gScmSE2sfOUkPPpfEs6s hMcymRcyQF4kXBUe dwxhDGFwaF1mYQDvlTYi dEjmMQ3zZSNjkydhk642 WhJwQQM3FLBvgAXeY7Ij zK0hVxWmTHSrBIAc Y3KxnSBbXVuaD309ZIpn MwB5HJAbymLqN7UbDNIh qQgqEzG8s7I4Sv5NkPQa W8HlY4s5E1EpWjhd dHI+DY99XBPpYB12jYTp kIGht3iywJk2KeHbRMOb ENJ6vDcrQVxaq6MxHRDq W91eeTEww5L0JITm pZyklRPeXoXzoUV7pG8a XJjabqfsb0owqhpeUqng e9dgxb42yU97X22oRJhh ZHRoPSIzMCUiIHZh bMsovp2qpU1aEq3+PGNv nQQ4yWB9uQ2fUvAlMxL5 EPlzH013ZxQzmUUcLbch f3wiq2zbsNm5NzDm EGUmiiAarFbtPUB8b9Ds Ot97E78dJWzzXMIvCTLp DPOaZGCsoXzbkg6dnA6z Ii8+XL7nz7bwjy38 pW40gRU+RJFdLJD7zCqq AHyeIGLjdY9aZBpcVvO3 YCEtJzIcvP71sSTvGYfc Rb7caVyvjUkcGL1j OTWmzqmms244GpSus6fd AOXacASsEWtmPZQ2W91p w4Y0XYSfMXHrIWM1vTO5 mE7wkMhorthyeWKe dDsgdmVydGljYWwtYWxp Q247OKWyvAaeVzJngBIl B7ifzsOLHG6mLqgcsFA+ VGJwSVT6lCopIFtf PXUriG3iKCIjO1l8FoEl HkA7TAawB5ZytxC5KMNg yFXoIJXkoAEZbR7ptxeu b6wgwiufXaYuFSSw XTt8RCm5MKSmeStpFxDn EGW5JrW9GVN8sRZjmW7f uJmjmsafkZ2xLwv+RklO OjwvdGQ+PHRkIHN0 xYesCBvrKUCsiX2rMKSq K5t2UkXqUsJ1NLxqK4Xv dsE9FUTpaNIyRPGruTBH uH8dhmwlz5mmysvu GcNpSNSsDPw6AYi2BYQf jUooMnHuYRN2GqI0ZMO8 qBJciP4yvTtlefqflQ5f Oyc+TVJOOjwvdGQ+ VPYnWTM7pIuuLVvsXNMx dF5zWNNzS7u9QqCaQfI5 MSuhI0IgcrL6UHZztSBy CAVavIQElR0mehgi r4qujdraEfAnPGQbTGq6 WXp7LOAvfFcqUgRyVII4 VlG4VYU4uFSzgQ9biFhn hudykM8iDiq+UGF5 VMP0MT31XO03L4CnHjmd dGFibGU+PHRhYmxlIHdp ZHRoPScxMDAlJyBzdHls AT7kWb7xTSBbHMTd bGxh (more content not included)... Normal [facility] CBC AUTO DIFFon 04-13-2022 BASO # 0.1 103/ul Normal 0.0-0.1 [facility] Comment on above: Performed By: #### C VDTBH #### [facility] [address] [place] [address] Dr. Reema Mireles Basophils/100 WBC (Bld) 0.6 % Normal 0.2-2.0 [facility] Comment on above: Performed By: #### C VDTBH #### [facility] [address] [place] [address] Dr. Reema Mireles EO # 0.0 103/ul Normal 0.0-0.7 [facility] Comment on above: Performed By: #### C VDTBH #### [facility] [address] [place] [address] Dr. Reema Mireles Eosinophils/100 WBC (Bld) 0.2 % Critically low 0.9-7.0 [facility] Comment on above: Performed By: #### C VDTBH #### [facility] [address] [place] [address] Dr. Reema Mireles Erythrocyte distribution width (RBC) [Ratio] 11.4 % Normal 11.0-15.0 [facility] Comment on above: Performed By: #### C VDTBH #### [facility] [address] [place] [address] Dr. Reema Mireles Hematocrit (Bld) [Volume fraction] 38.3 % Normal 36.0-48.0 [facility] Comment on above: Performed By: #### C VDTBH #### [facility] [address] [place] [address] Dr. Reema Mireles Hemoglobin (Bld) [Mass/Vol] 13.4 g/dL Normal 12.0-16.0 [facility] Comment on above: Performed By: #### C VDTBH #### [facility] [address] [place] [address] Dr. Reema Mireles IG # 0.01 10e3/ul Normal 0.00-0.03 [facility] Comment on above: Performed By: #### C VDTBH #### [facility] [address] [place] [address] Dr. Reema Mireles IG % 0.1 % Normal 0.0-0.5 [facility] Comment on above: Performed By: #### C VDTBH #### [facility] [address] [place] [address] Dr. Reema Mireles LYMPH # 1.8 103/ul Normal 1.2-3.8 [facility] Comment on above: Performed By: #### C VDTBH #### [facility] [address] [place] [address] Dr. Reema Mireles Lymphocytes/100 WBC (Bld) 22.2 % Normal 20.5-60.0 [facility] Comment on above: Performed By: #### C VDTBH #### [facility] [address] [place] [address] Dr. Reema Mireles MANUAL DIFF REQ NO Normal [facility] Comment on above: Performed By: #### C VDTBH #### [facility] [address] [place] [address] Dr. Reema Mireles MCH (RBC) [Entitic mass] 30.6 pg Normal 26.7-34.0 [facility] Comment on above: Performed By: #### C VDTBH #### [facility] [address] [place] [address] Dr. Reema Mireles MCHC (RBC) [Mass/Vol] 35.0 g/dL Normal 29.9-35.2 [facility] Comment on above: Performed By: #### C VDTBH #### [facility] [address] [place] [address] Dr. Reema Mireles MCV (RBC) [Entitic vol] 87.4 fL Normal 81.0-99.0 [facility] Comment on above: Performed By: #### C VDTBH #### [facility] [address] [place] [address] Dr. Reema Mireles MONO # 0.7 103/ul Normal 0.3-0.8 [facility] Comment on above: Performed By: #### C VDTBH #### [facility] [address] [place] [address] Dr. Reema Mireles Monocytes/100 WBC (Bld) 8.2 % Normal 1.7-12.0 [facility] Comment on above: Performed By: #### C VDTBH #### [facility] [address] [place] [address] Dr. Reema Mireles NEUT # 5.5 103/ul Normal 1.4-6.5 [facility] Comment on above: Performed By: #### C VDTBH #### [facility] [address] [place] [address] Dr. Reema Mireles Neutrophils/100 WBC (Bld) 68.7 % Normal 43.0-75.0 [facility] Comment on above: Performed By: #### C VDTBH #### [facility] [address] [place] [address] Dr. Reema Mireles Platelet mean volume (Bld) [Entitic vol] 10.1 fL Normal 9.5-13.5 [facility] Comment on above: Performed By: #### C VDTBH #### [facility] [address] [place] [address] Dr. Reema Mireles PLT 404 103/ul Normal 150-450 [facility] Comment on above: Performed By: #### C VDTBH #### [facility] [address] [place] [address] Dr. Reema Mireles RBC 4.38 106/ul Normal 4.20-5.40 [facility] Comment on above: Performed By: #### C VDTBH #### [facility] [address] [address] [address] Reema Mireles WBC 8.0 103/ul Normal 4.0-11.0 [facility] Comment on above: Performed By: #### C VDTBH #### [facility] [id number] Reema Mireles CT HEAD WO CONon [...] by: AURELIA CARLOS Date: 2022-04-13 16:29 Normal [facility] Discharge Instructionson Discharge Instructions [id number] #[id number]:127 Normal [facility] ED Note-Physicianon 04-13-20 22 ED Note-Physician Basic Information Time Seen: Lata Hardy M.D. 04/12/2022 19:56 Chief Complaint Pt. presents to the ed with c/o headache and vertigo since thursday. Pt. was seen at [facility] and started on prednisone. pt. stopped taking [...] The patient states she was seen at [facility] discharged home. She went to urgent [...] neurological deficit. She has been seen at [facility] and started on prednisone. Possible her [...] ADRYAN MARIE In 3 days 04/15/2022 EDT [facility] [id number] [facility] (1) Additional Instructions: Return to the [...] Diagnostic Results No qualifying data available. Normal [facility] Comment on above: Result Comment: Elec tronically Signed By: Antony Villa, Lata Baxter\.br\Date and Time Signed: 04/13/22 04:56 EDT ER URINE PROFILEon 2 Bilirubin Ql (U) Negative Normal NEGATIVE [facility] Comment on above: Performed By: #### P REGU, ERUR #### [facility] [address] [place] [address] Dr. Reema Mireles Clarity (U) CLEAR Normal CLEAR [facility] Comment on above: Performed By: #### P REGU, ERUR #### [facility] [address] [address] [address] Reema Mireles Color (U) LT. YELLOW Normal YELLOW [facility] Comment on above: Performed By: #### P REGU, ERUR #### [facility] [address] [place] [address] Dr. Reema ELIZALDE A micrscopic examination will be performed if indicated. Normal [facility] Comment on above: Performed By: #### P REGU, ERUR #### [facility] [address] [place] [address] Dr. Reema Mireles Glucose Ql (U) Negative Normal NEGATIVE [facility] Comment on above: Performed By: #### P REGU, ERUR #### [facility] [address] [address] [address] Reema Mireles Hemoglobin Ql (U) Negative Normal NEGATIVE [facility] Comment on above: Performed By: #### P REGU, ERUR #### [facility] [address] [address] [address] Reema Mireles Ketones Ql (U) Negative Normal NEGATIVE [facility] Comment on above: Performed By: #### P REGU, ERUR #### [facility] [address] [address] [address] Reema Mireles LEUKOCYTES Negative Normal NEGATIVE [facility] Comment on above: Performed By: #### P REGU, ERUR #### [facility] [address] [place] [address] Dr. Reema Mireles Nitrite Ql (U) Negative Normal NEGATIVE [facility] Comment on above: Performed By: #### P REGU, ERUR #### [facility] [address] [place] [address] Dr. Reema Mireles pH (U) 6.5 [pH] Normal 5-9 [facility] Comment on above: Performed By: #### P REGU, ERUR #### [facility] [address] [place] [address] Dr. Reema Mireles SPEC GRAVITY 1.005 Normal 1.005-<=1.025 [facility] Comment on above: Performed By: #### P REGU, ERUR #### [facility] [address] [place] [address] Dr. Reema Mireles UA PROTEIN Negative Normal NEGATIVE/ TRACE [facility] Comment on above: Performed By: #### P REGU, ERUR #### [facility] [address] [address] [address] Reema Mireles UR MICRO IND NOT INDICATED Normal [facility] Comment on above: Performed By: #### P REGU, ERUR #### [facility] [address] [place] [address] Dr. Reema Mireles Urobilinogen Qn (U) 0.2 {Renny'U}/dL Normal 0.2 - 1. 0 [facility] Comment on above: Performed By: #### P RUSTY, ERUR #### [facility] [address] [place] [address] Dr. Reema Mireles URon 04-13-2022 , QUAL Negative Normal NEGATIVE [facility] Comment on above: Performed By: #### P MAXIU, ERUR #### [facility] [address] [place] [address] Dr. Reema Mireles PROF CHEM 8 (BAS METB)on Anion gap [Moles/Vol] 14.0 mmol/L Normal [facility] Comment on above: Performed By: #### B MP, TSH #### [facility] [address] [place] [address] Dr. Reema Mireles Calcium [Mass/Vol] 9.2 mg/dL Normal 8.5-10.1 [facility] Comment on above: Performed By: #### B MP, TSH #### [facility] [address] [place] [address] Dr. Reema Mireles Chloride [Moles/Vol] 102 mmol/L Normal 98-107 [facility] Comment on above: Performed By: #### B MP, TSH #### [facility] [address] [place] [address] Dr. Reema Mireles CO2 [Moles/Vol] 26.3 mmol/L Normal 21.0-32.0 [facility] Comment on above: Performed By: #### B MP, TSH #### [facility] [address] [place] [address] Dr. Reema Mireles Creatinine [Mass/Vol] 0.65 mg/dL Normal 0.55-1.02 [facility] Comment on above: Performed By: #### B MP, TSH #### [facility] [address] [place] [address] Dr. Reema Mireles EGFR-AF MONGOLIAN >60 Normal >=60 [facility] Comment on above: Performed By: #### B MP, TSH #### [facility] [address] [address] [address] Reema Mireles EGFR-NON AF MONGOLIAN >60 Normal >=60 [facility] Comment on above: Performed By: #### B MP, TSH #### [facility] [address] [address] [address] Reema Mireles Glucose [Mass/Vol] 92 mg/dL Normal 74-106 [facility] Comment on above: Performed By: #### B MP, TSH #### [facility] [address] [address] [address] Reema Mireles Potassium [Moles/Vol] 3.3 mmol/L Critically low 3.5-5.1 [facility] Comment on above: Performed By: #### B MP, TSH #### [facility] [address] [address] [address] Reema Mireles Sodium [Moles/Vol] 139 mmol/L Normal 136-145 [facility] Comment on above: Performed By: #### B MP, TSH #### [facility] [address] [address] [address] Reema Mireles Urea nitrogen [Mass/Vol] 8.0 mg/dL Normal 7.0-18.0 [facility] Comment on above: Performed By: #### B MP, TSH #### [facility] [address] [address] [address] Reema Mireles Urea nitrogen/Creatinine [Mass ratio] 12.3 mg/mg Normal [facility] Comment on above: Performed By: #### B MP, TSH #### [facility] [address] [address] [address] Reema Mireles TSHon 04-13-2022 TSH 1.293 uIU/mL Normal 0.358-3.740 [facility] Comment on above: Performed By: #### B MP, TSH #### [facility] [address] [place] [address] Dr. Reema Mireles Consent for Treatmenton 03-28 Consent for Treatment [id number] Normal [facility] ED Clinical Summaryon 2021 ED Clinical Summary [address] [address] ED Clinical Summary Person Information Name: JUANPABLO CHAPARRO [place] Age: 21 Years : 2000 Sex: Female Language: Yi PCP: ADRYAN MARIE MD Marital Status: Single Phone: [phone] Visit Id: Visit Reason: Vertigo - recurrent; [...] 04/12/2022 21:07:38 04/12/2022 21:07:38 04/12/2022 21:07:38 ADDRESS: [address] [place] [id number] PHYS DOC NOTES: MEDICAL INFORMATION: Prescriptions Given: PATIENT EDUCATION INFORMATION: Instructions: General Headache Without Cause; Vertigo Follow up: With: Address: When: ADRYAN AMINJAILENE [address] [place] [address] Business (1) In 3 days 04/15/2022 Comments: Return to the emergency room if her headache gets worse, vertigo becomes persistent or any new symptoms DIAGNOSIS: 1:Vertigo; 2:Headache Normal [facility] ED Patient Education Noteon 04-12-2022 [...] you feel dizzy. General instructions ? Take ttmv-olm-atwaupl and prescription medicines only as told by [...] Reviewed: 08/08/2019 [employer] Patient Education ? 2019 [email or web address] Neurology General Headache Without Cause A [...] with your condition: Managing pain ? Take citg-phg-zrnurpu and prescription medicines only as told by [...] of beer (more content not included)... Normal [facility] ED Patient Summaryon 022 ED Patient Summary [address] [address] Patient Discharge Instructions Person Information Name: JUANPABLO CHAPARRO Age: 21 Years Arrival Date: 04/12/2022 19:22:40 Discharge Diagnosis: 1:Vertigo; 2:Headache Primary Care Physician: ADRYAN MARIE MD Provider Information Primary Provider: Lata Hardy M.D. Advanced Film Touch Up Inspector:None The exam and treatment you received in the Emergency Department were for an urgent problem and are not intended as complete care. It is important that you follow up with a doctor, nurse practitioner, or physician?s payroll human resources assistant for ongoing care. If your symptoms [...] Instructions: With: Address: When: ADRYAN MARIE [address] [place] [address] [employer] In 3 days 04/15/2022 Comments: Return to [...] opioids can be used to help relieve hqjcrzcy-hp-ggxsrk pain and are often prescribed following a [...] addiction, tel (more content not included)... Normal [facility] CBC AUTO DIFFon 04-09-2022 BASO # 0.1 103/ul Normal 0.0-0.1 [facility] Comment on above: Performed By: #### B MP, TSH #### [facility] [address] [address] [address] Reema Mireles Basophils/100 WBC (Bld) 0.5 % Normal 0.2-2.0 [facility] Comment on above: Performed By: #### B GURPREET, TSH #### [facility] [address] [place] [address] Dr. Reema Mireles EO # 0.1 103/ul Normal 0.0-0.7 [facility] Comment on above: Performed By: #### B GURPREET, TSH #### [facility] [address] [place] [address] Dr. Reema Mireles Eosinophils/100 WBC (Bld) 1.0 % Normal 0.9-7.0 [facility] Comment on above: Performed By: #### B GURPREET, TSH #### [facility] [address] [place] [address] Dr. Reema Mireles Erythrocyte distribution width (RBC) [Ratio] 11.7 % Normal 11.0-15.0 [facility] Comment on above: Performed By: #### B GURPREET, TSH #### [facility] [address] [place] [address] Dr. Reema Mireles Hematocrit (Bld) [Volume fraction] 37.2 % Normal 36.0-48.0 [facility] Comment on above: Performed By: #### B GURPREET, TSH #### [facility] [address] [place] [address] Dr. Reema Mireles Hemoglobin (Bld) [Mass/Vol] 12.8 g/dL Normal 12.0-16.0 [facility] Comment on above: Performed By: #### B GURPREET, TSH #### [facility] [address] [place] [address] Dr. Reema Mireles IG # 0.02 10e3/ul Normal 0.00-0.03 [facility] Comment on above: Performed By: #### B GURPREET, TSH #### [facility] [address] [place] [address] Dr. Reema Mireles IG % 0.2 % Normal 0.0-0.5 [facility] Comment on above: Performed By: #### B GURPREET, TSH #### [facility] [address] [place] [address] Dr. Reema Mireles LYMPH # 1.8 103/ul Normal 1.2-3.8 [facility] Comment on above: Performed By: #### B MP, TSH #### [facility] [address] [place] [address] Dr. Reema Mireles Lymphocytes/100 WBC (Bld) 19.0 % Critically low 20.5-60.0 [facility] Comment on above: Performed By: #### B MP, TSH #### [facility] [address] [place] [address] Dr. Reema Mireles MANUAL DIFF REQ NO Normal [facility] Comment on above: Performed By: #### B MP, TSH #### [facility] [address] [place] [address] Dr. Reema Mireles MCH (RBC) [Entitic mass] 30.4 pg Normal 26.7-34.0 [facility] Comment on above: Performed By: #### B MP, TSH #### [facility] [address] [place] [address] Dr. Reema Mireles MCHC (RBC) [Mass/Vol] 34.4 g/dL Normal 29.9-35.2 [facility] Comment on above: Performed By: #### B MP, TSH #### [facility] [address] [place] [address] Dr. Reema Mireles MCV (RBC) [Entitic vol] 88.4 fL Normal 81.0-99.0 [facility] Comment on above: Performed By: #### B MP, TSH #### [facility] [address] [place] [address] Dr. Reema Mireles MONO # 0.7 103/ul Normal 0.3-0.8 [facility] Comment on above: Performed By: #### B MP, TSH #### [facility] [address] [place] [address] Dr. Reema Mireles Monocytes/100 WBC (Bld) 6.8 % Normal 1.7-12.0 [facility] Comment on above: Performed By: #### B MP, TSH #### [facility] [address] [address] [address] Reema Mireles NEUT # 7.0 103/ul Critically high 1.4-6.5 [facility] Comment on above: Performed By: #### B MP, TSH #### [facility] [address] [address] [address] Reema Mireles Neutrophils/100 WBC (Bld) 72.5 % Normal 43.0-75.0 [facility] Comment on above: Performed By: #### B MP, TSH #### [facility] [address] [place] [address] Dr. Reema Mireles Platelet mean volume (Bld) [Entitic vol] 10.3 fL Normal 9.5-13.5 [facility] Comment on above: Performed By: #### B MP, TSH #### [facility] [address] [place] [address] Dr. Reema Mireles PLT 358 103/ul Normal 150-450 [facility] Comment on above: Performed By: #### B MP, TSH #### [facility] [address] [place] [address] Dr. Reema Mireles RBC 4.21 106/ul Normal 4.20-5.40 [facility] Comment on above: Performed By: #### B MP, TSH #### [facility] [address] [place] [address] Dr. Reema Mireles WBC 9.7 103/ul Normal 4.0-11.0 [facility] Comment on above: Performed By: #### B MP, TSH #### [facility] [address] [place] [address] Dr. Reema Mireles CULTURE BLOODon 04-09-2022 Microscopic examination of blood, culture Culture Observations: NO GROWTH AT 5 DAYS. Normal [facility] Comment on above: Performed By: #### B MP, TSH #### [facility] [address] [place] [address] Dr. Reema Mireles ER URINE PROFILEon 2 Bilirubin Ql (U) Negative Normal NEGATIVE [facility] Comment on above: Performed By: #### B MP, TSH #### [facility] [address] [place] [address] Dr. Reema Mireles Clarity (U) CLEAR Normal CLEAR [facility] Comment on above: Performed By: #### B MP, TSH #### [facility] [address] [place] [address] Dr. Reema Mireles Color (U) LT. YELLOW Normal YELLOW [facility] Comment on above: Performed By: #### B MP, TSH #### [facility] [address] [place] [address] Dr. Reema ELIZALDE A micrscopic examination will be performed if indicated. Normal [facility] Comment on above: Performed By: #### B MP, TSH #### [facility] [address] [place] [address] Dr. Reema Mireles Glucose Ql (U) Negative Normal NEGATIVE [facility] Comment on above: Performed By: #### B MP, TSH #### [facility] [address] [place] [address] Dr. Reema Mireles Hemoglobin Ql (U) TRACE-INTACT Abnormal NEGATIVE [facility] Comment on above: Performed By: #### B MP, TSH #### [facility] [address] [place] [address] Dr. Reema Mireles Ketones Ql (U) Negative Normal NEGATIVE [facility] Comment on above: Performed By: #### B MP, TSH #### [facility] [address] [place] [address] Dr. Reema Mireles LEUKOCYTES Negative Normal NEGATIVE [facility] Comment on above: Performed By: #### B MP, TSH #### [facility] [address] [place] [address] Dr. Reema Mireles Nitrite Ql (U) Negative Normal NEGATIVE [facility] Comment on above: Performed By: #### B MP, TSH #### [facility] [address] [place] [address] Dr. Reema Mireles pH (U) 5.5 [pH] Normal 5-9 [facility] Comment on above: Performed By: #### B MP, TSH #### [facility] [address] [place] [address] Dr. Reema Mireles SPEC GRAVITY <=1.005 Abnormal 1.005-<=1.025 [facility] Comment on above: Performed By: #### B MP, TSH #### [facility] [address] [place] [address] Dr. Reema Mireles UA PROTEIN Negative Normal NEGATIVE/ TRACE [facility] Comment on above: Performed By: #### B MP, TSH #### [facility] [address] [place] [address] Dr. Reema Mireles UR MICRO IND INDICATED Normal [facility] Comment on above: Performed By: #### B MP, TSH #### [facility] [address] [place] [address] Dr. Reema Mireles Urobilinogen Qn (U) 0.2 {Renny'U}/dL Normal 0.2 - 1. 0 [facility] Comment on above: Performed By: #### B MP, TSH #### [facility] [address] [place] [address] Dr. Reema Mireles LACTATE/LACTIC ACIDon 2021 Lactate [Moles/Vol] 2.2 mmol/L Critically high 0.4-1.9 [facility] Comment on above: Performed By: #### B MP, TSH #### [facility] [address] [place] [address] Dr. Reema Mireles URon 04-09-2022 , QUAL Negative Normal NEGATIVE [facility] Comment on above: Performed By: #### B MP, TSH #### [facility] [address] [place] [address] Dr. Reema Mireles PROF 14(COMP METB)on 022 Albumin [Mass/Vol] 4.5 g/dL Normal 3.4-5.0 [facility] Comment on above: Performed By: #### C MP #### [facility] [address] [place] [address] Dr. Reema Mireles Albumin/Globulin [Mass ratio] 1.3 {ratio} Normal [facility] Comment on above: Performed By: #### C MP #### [facility] [address] [address] [address] Reema Mireles ALP [Catalytic activity/Vol] 83 U/L Normal 46-116 [facility] Comment on above: Performed By: #### C MP #### [facility] [address] [address] [address] Reema Mireles ALT [Catalytic activity/Vol] 26 U/L Normal 14-59 [facility] Comment on above: Performed By: #### C MP #### [facility] [address] [address] [address] Reema Mireles Anion gap [Moles/Vol] 14.9 mmol/L Normal [facility] Comment on above: Performed By: #### C MP #### [facility] [address] [place] [address] Dr. Reema Mireles AST [Catalytic activity/Vol] 12 U/L Critically low 15-37 [facility] Comment on above: Performed By: #### C MP #### [facility] [address] [place] [address] Dr. Reema Mireles Bilirubin [Mass/Vol] 0.3 mg/dL Normal 0.2-1.0 [facility] Comment on above: Performed By: #### C MP #### [facility] [address] [place] [address] Dr. Reema Mireles Calcium [Mass/Vol] 9.6 mg/dL Normal 8.5-10.1 [facility] Comment on above: Performed By: #### C MP #### [facility] [address] [place] [address] Dr. Reema Mireles Chloride [Moles/Vol] 103 mmol/L Normal 98-107 [facility] Comment on above: Performed By: #### C MP #### [facility] [address] [place] [address] Dr. Reema Mireles CO2 [Moles/Vol] 24.4 mmol/L Normal 21.0-32.0 [facility] Comment on above: Performed By: #### C MP #### [facility] [address] [address] [address] Reema Mireles Creatinine [Mass/Vol] 0.87 mg/dL Normal 0.55-1.02 [facility] Comment on above: Performed By: #### C MP #### [facility] [address] [address] [address] Reema Mireles EGFR-AF MONGOLIAN >60 Normal >=60 [facility] Comment on above: Performed By: #### C MP #### [facility] [address] [address] [address] Reema Mireles EGFR-NON AF MONGOLIAN >60 Normal >=60 [facility] Comment on above: Performed By: #### C MP #### [facility] [address] [address] [address] Reema Mireles Globulin (S) [Mass/Vol] 3.5 g/dL Normal [facility] Comment on above: Performed By: #### C MP #### [facility] [address] [address] [address] Reema Mireles Glucose [Mass/Vol] 109 mg/dL Critically high 74-106 [facility] Comment on above: Performed By: #### C MP #### [facility] [address] [place] [address] Dr. Reema Mireles Potassium [Moles/Vol] 3.3 mmol/L Critically low 3.5-5.1 [facility] Comment on above: Performed By: #### C MP #### [facility] [address] [address] [address] Reema Mireles Protein [Mass/Vol] 8.0 g/dL Normal 6.4-8.2 [facility] Comment on above: Performed By: #### C MP #### [facility] [address] [place] [address] Dr. Reema Mireles Sodium [Moles/Vol] 139 mmol/L Normal 136-145 [facility] Comment on above: Performed By: #### C MP #### [facility] [address] [place] [address] Dr. Reema Mireles Urea nitrogen [Mass/Vol] 9.0 mg/dL Normal 7.0-18.0 [facility] Comment on above: Performed By: #### C MP #### [facility] [address] [place] [address] Dr. Reema Mireles Urea nitrogen/Creatinine [Mass ratio] 10.3 mg/mg Normal [facility] Comment on above: Performed By: #### C MP #### [facility] [address] [place] [address] Dr. Reema Mireles URINE MICROSCOPIC ONLYon BACTERIA NONE SEEN Normal NONE SEEN [facility] Comment on above: Performed By: #### B MP, TSH #### [facility] [address] [place] [address] Dr. Reema Mireles Bacteria identified Cx Nom (U) NOT INDICATED Normal [facility] Comment on above: Performed By: #### B MP, TSH #### [facility] [address] [place] [address] Dr. Reema Mireles CAST NONE SEEN Normal NONE SEEN [facility] Comment on above: Performed By: #### B MP, TSH #### [facility] [address] [place] [address] Dr. Reema Mireles Crystals LM Nom (Urine sed) NONE SEEN Normal NONE SEEN [facility] Comment on above: Performed By: #### B MP, TSH #### [facility] [address] [place] [address] Dr. Reema Mireles Epithelial cells LM Ql (Urine sed) RARE Normal NONE SEEN /RARE [facility] Comment on above: Performed By: #### B MP, TSH #### [facility] [address] [place] [address] Dr. Reema Mireles MUCOUS NONE SEEN Normal NONE SEEN [facility] Comment on above: Performed By: #### B MP, TSH #### [facility] [address] [place] [address] Dr. Reema Mireles RBC 0-2 Normal 0-2 [facility] Comment on above: Performed By: #### B MP, TSH #### [facility] [address] [place] [address] Dr. Reema Mireles WBC NONE SEEN Normal NONE SEEN [facility] Comment on above: Performed By: #### B MP, TSH #### [facility] [address] [place] [address] Dr. Reema Mireles CBC AUTO DIFFon 10-25-2021 BASO # 0.0 103/ul Normal 0.0-0.1 [facility] Comment on above: Performed By: #### C BC #### [facility] [address] [place] [address] Dr. Reema Mireles Basophils/100 WBC (Bld) 0.6 % Normal 0.2-2.0 [facility] Comment on above: Performed By: #### C BC #### [facility] [address] [place] [address] Dr. Reema Mireles EO # 0.1 103/ul Normal 0.0-0.7 [facility] Comment on above: Performed By: #### C BC #### [facility] [address] [place] [address] Dr. Reema Mireles Eosinophils/100 WBC (Bld) 1.8 % Normal 0.9-7.0 [facility] Comment on above: Performed By: #### C BC #### [facility] [address] [place] [address] Dr. Reema Mireles Erythrocyte distribution width (RBC) [Ratio] 11.9 % Normal 11.0-15.0 [facility] Comment on above: Performed By: #### C BC #### [facility] [address] [place] [address] Dr. Reema Mireles Hematocrit (Bld) [Volume fraction] 38.1 % Normal 36.0-48.0 [facility] Comment on above: Performed By: #### C BC #### [facility] [address] [place] [address] Dr. Reema Mireles Hemoglobin (Bld) [Mass/Vol] 13.1 g/dL Normal 12.0-16.0 [facility] Comment on above: Performed By: #### C BC #### [facility] [address] [place] [address] Dr. Reema Mireles IG # 0.01 10e3/ul Normal 0.00-0.03 [facility] Comment on above: Performed By: #### C BC #### [facility] [address] [place] [address] Dr. Reema Mireles IG % 0.1 % Normal 0.0-0.5 [facility] Comment on above: Performed By: #### C BC #### [facility] [address] [place] [address] Dr. Reema Mireles LYMPH # 1.9 103/ul Normal 1.2-3.8 [facility] Comment on above: Performed By: #### C BC #### [facility] [address] [place] [address] Dr. Reema Mireles Lymphocytes/100 WBC (Bld) 27.8 % Normal 20.5-60.0 [facility] Comment on above: Performed By: #### C BC #### [facility] [address] [place] [address] Dr. Reema Mireles MANUAL DIFF REQ NO Normal [facility] Comment on above: Performed By: #### C BC #### [facility] [address] [place] [address] Dr. Reema Mireles MCH (RBC) [Entitic mass] 30.5 pg Normal 26.7-34.0 [facility] Comment on above: Performed By: #### C BC #### [facility] [address] [place] [address] Dr. Reema Mireles MCHC (RBC) [Mass/Vol] 34.4 g/dL Normal 29.9-35.2 [facility] Comment on above: Performed By: #### C BC #### [facility] [address] [place] [address] Dr. Reema Mireles MCV (RBC) [Entitic vol] 88.8 fL Normal 81.0-99.0 [facility] Comment on above: Performed By: #### C BC #### [facility] [address] [place] [address] Dr. Reema Mireles MONO # 0.8 103/ul Normal 0.3-0.8 [facility] Comment on above: Performed By: #### C BC #### [facility] [address] [place] [address] Dr. Reema Mireles Monocytes/100 WBC (Bld) 11.2 % Normal 1.7-12.0 [facility] Comment on above: Performed By: #### C BC #### [facility] [address] [place] [address] Dr. Reema Mireles NEUT # 4.0 103/ul Normal 1.4-6.5 [facility] Comment on above: Performed By: #### C BC #### [facility] [address] [place] [address] Dr. Reema Mireles Neutrophils/100 WBC (Bld) 58.5 % Normal 43.0-75.0 [facility] Comment on above: Performed By: #### C BC #### [facility] [address] [place] [address] Dr. Reema Mireles Platelet mean volume (Bld) [Entitic vol] 10.0 fL Normal 9.5-13.5 [facility] Comment on above: Performed By: #### C BC #### [facility] [address] [place] [address] Dr. Reema Mireles PLT 361 103/ul Normal 150-450 [facility] Comment on above: Performed By: #### C BC #### [facility] [address] [place] [address] Dr. Reema Mireles RBC 4.29 106/ul Normal 4.20-5.40 [facility] Comment on above: Performed By: #### C BC #### [facility] [address] [place] [address] Dr. Reema Mireles WBC 6.8 103/ul Normal 4.0-11.0 [facility] Comment on above: Performed By: #### C BC #### [facility] [address] [place] [address] Dr. Reema Mireles PREG QUANT HCGon 10-25-2021 HCG QUANT 1 mIU/mL Normal [facility] Comment on above: Performed By: #### P REGQNT #### [facility] [address] [place], [place] [address] Dr. Reema Mireles HCG RANGE SEE BELOW Normal [facility] Comment on above: Result Comment: 5-50 0-1 WEEK 40-300 1-2 WEEKS 100-1,000 2-3 WEEKS 500-6,000 3-4 WEEKS 5,000-200,000 1-2 MONTHS 10,000-100,000 2-3 MONTHS 3,000-50,000 2ND TRIMESTER 1,000-50,000 3RD TRIMESTER Performed By: #### P REGQNT #### [facility] [address] [place] [address] Dr. Reema Mireles [facility] 09[facility]29 SARS-CoV-2 (COVID-19) RNA FRANKIE+probe Ql (Unsp spec) Not detected Normal NOT DETECTED [facility] Comment on above: Result Comment: This test is not yet approved or cleared by the [place] FDA. When there are no FDA-approved or cleared tests available, and other criteria are met, FDA can make tests available under an emergency access mechanism called an Emergency Use Authorization (EUA). The EUA for this test is supported by the [place] of Health and Human Service's (HHS's) declaration [...] SARS-CoV-2. Performed By: #### C VDTBH #### [facility] [address] [place] [id number] [address] Reema Mireles Vital Signs Date Time Vital Sign Value Performing Clinician Facility 11-12-2023 14:15-0500 Body weight 108.86 kg Devan Tello [employer] Work Phone: [facility] 11-12-2023 14:15-0500 Diastolic blood pressure 72 mm[Hg] Devan Fernandezo DO Work Phone: [facility] 11-12-2023 14:15-0500 Systolic blood pressure 122 mm[Hg] Devan Omer DO Work Phone: [facility] 04-12-2022 21:04-0400 Diastolic blood pressure 84 mm[Hg] [facility] 04-12-2022 21:04-0400 Heart rate 82 /min [facility] 04-12-2022 21:04-0400 Respiratory rate 16 /min [facility] 04-12-2022 21:04-0400 SaO2% (BldA) [Mass fraction] 98 % [facility] 04-12-2022 21:04-0400 Systolic blood pressure 120 mm[Hg] [facility] 04-12-2022 20:32-0400 gluc 80 mg/dL [facility] Comment on above: Result Comment: not taken due to pt refu jimmie of any injection 04-12-2022 20:32-0400 gluc [facility] 04-12-2022 19:25-0400 Body temperature 99.32 [degF] [facility] 04-12-2022 19:25-0400 Diastolic blood pressure 84 mm[Hg] [facility] 04-12-2022 19:25-0400 Heart rate 90 /min [facility] 04-12-2022 19:25-0400 Respiratory rate 18 /min [facility] 04-12-2022 19:25-0400 SaO2% (BldA) [Mass fraction] 98 % [facility] 04-12-2022 19:25-0400 Systolic blood pressure 118 mm[Hg] [facility] 04-09-2022 12:20-0400 Body height 165.1 cm Deonna Cavanaughmond Other [facility] Other 04-09-2022 12:20-0400 Body mass index (BMI) [Ratio] 35.61 kg/m2 Deonna Nazanin Other [facility] Other 04-09-2022 12:20-0400 Body temperature 98.4 [degF] Deonna Nazanin Other [facility] Other 04-09-2022 12:20-0400 Body weight 97.07 kg Deonna Nazanin Other [facility] Other 04-09-2022 12:20-0400 Diastolic blood pressure 83 mm[Hg] Deonna Nazanin Other [facility] Other 04-09-2022 12:20-0400 Respiratory rate 18 /min Deonna Nazanin Other [facility] Other 04-09-2022 12:20-0400 SaO2% (BldA) [Mass fraction] 99 % Deonna Nazanin Other [facility] Other 04-09-2022 12:20-0400 Systolic blood pressure 135 mm[Hg] Deonna Nazanin Other [facility] Other 04-02-2022 19:00-0400 Body height 165.1 cm Deonna Nazanin Other [facility] Other 04-02-2022 19:00-0400 Body mass index (BMI) [Ratio] 35.71 kg/m2 Deonna Nazanin Other [facility] Other 04-02-2022 19:00-0400 Body temperature 98.1 [degF] Deonna Back Other [facility] Other 04-02-2022 19:00-0400 Body weight 97.34 kg Deonna Back Other [facility] Other 04-02-2022 19:00-0400 Diastolic blood pressure 83 mm[Hg] Deonna Back Other [facility] Other 04-02-2022 19:00-0400 Respiratory rate 18 /min Deonna Back Other [facility] Other 04-02-2022 19:00-0400 SaO2% (BldA) [Mass fraction] 100 % Deonna Back Other [facility] Other 04-02-2022 19:00-0400 Systolic blood pressure 134 mm[Hg] Deonna Back Other [facility] Other Encounters Encounter Date Encounter Type Care [...] Unsolicited Start: 10-15-2023 End: 10-15-2023 ambulatory CYDNEY ELOS Not Available Start: 09-17-2023 End: 09-17-2023 ambulatory [...] Emergency department patient visit Kimberleealisa [facility] Start: 04-10-2022 End: 04-10-2022 ambulatory Deonna Back Other [facility] Other Start: 04-10-2022 Telephone encounter Deonna Back [facility] Start: 04-09-2022 End: 04-09-2022 ambulatory Deonna Back Other [facility] Other Start: 04-09-2022 Office outpatient vi sit 15 minutes Deonna Back [facility] Start: 04-09-2022 End: 04-09-[address] LUIS ANTONIO SUTTON Facility:[facility] Start: 04-02-2022 (URG) Urgent Care Visit Deonna pace [facility] Start: 04-02-2022 End: 04-02-2022 ambulatory Deonna Back Other [facility] Other Start: 10-25-2021 End: 10-25-[address] ADRYAN MARIE Facility:[facility] Start: 10-24-2021 Encounter for preprocedural laboratory examination DR DEVAN TELLO [facility] Start: 10-22-2021 End: 10-23-[address] ARDYAN MARIE Facility:[facility] Start: 10-22-2021 End: 10-23-2021 Encounter for preprocedural laboratory examination DR ADRYAN MARIE Facility:[facility] Start: 10-19-2021 Encounter for other preprocedural examination DR DEVAN TELLO [facility] Start: 10-17-2021 End: 10-18-[address] [...] AM EST Routine [facility] [address] [place] [phone] Cydney Leos PA [address] [place], [place] [id number] [facility] Start: 11-26-2023 End: 11-26-2023 Professional / ancillary services management 11/26/2023 10:30 AM EST Ancillary Procedure [facility] [address] [facility] [place] [id number] [facility] Start: 11-12-2023 End: 11-12-2024 US for US OB SCAN FOR GROWTH Imaging Routine Excessive growth affecting management of in third trimester, single or unspecified fetus Expected: 11/12/2023 (Approximate), Expires: 11/12/2024 [facility] Work Phone: Comment on above: Expected: 11/12/2023 (Approximate), Expires: 11/12/2024 Start: 11-12-2023 End: 11-12-2023 Patient encounter procedure 11/12/2023 10:50 AM EST Routine [facility] [address] [facility] [place] [phone] Devan Tello DO [address] [facility] [place] [address] [facility] Payers Date Payer Category Payer Unknown [facility] MEDICAID [id number] 2023-Present [address] [place] [address] [id number] 2023 Medicaid [id number] 2001 Unknown [id number] 2.16.840.1.580462.3.579.2. 593 2001 Unknown [id number] 2.16.840.1.348088.3.579.2. 593 2001 Unknown [id number] 2.16.840.1.790760.3.579.2. 593 2001 Unknown [id number] 2.16.840.1.534770.3.579.2. 593 2001 Unknown [id number] 2.16.840.1.036853.3.579.2. 593 2001 Unknown [id number] 2.16.840.1.227780.3.579.2. 593 2001 Unknown [id number] 2.16.840.1.244946.3.579.2. 593 2001 Unknown [id number] 2.16.840.1.557896.3.579.2. 593 2001 Unknown [id number] 2.16.840.1.122252.3.579.2. 593 2001 Unknown [id number] 2.16.840.1.455065.3.579.2. 593 2001 Unknown [id number] 2.16.840.1.512849.3.579.2. 593 2001 Unknown [id number] 2.16.840.1.185330.3.579.2. 1259 2001 Unknown [id number] 2.16.840.1.483891.3.579.2. 1259 2001 Unknown [id number] 2.16.840.1.854461.3.579.2. 1259 2001 Unknown [id number] 2.16.840.1.509546.3.579.2. 1259 2001 Unknown [id number] 2.16.840.1.402163.3.579.2. 1259 2001 Unknown [id number] 2.16.840.1.141958.3.579.2. 1259 2001 Unknown [id number] 2.16.840.1.996492.3.579.2. 9 2001 Unknown [id number] 2.16.840.1.264177.3.579.2. 9 2001 Unknown [id number] 2.16.840.1.124535.3.579.2. 9 2001 Unknown [id number] 2.16.840.1.320472.3.579.2. 9 2001 Unknown [id number] 2.16.840.1.670502.3.579.2. 9 2001 Unknown [id number] 2.16.840.1.851129.3.579.2. 9 2001 Unknown [id number] 2.16.840.1.177726.3.579.2. 9 2001 Unknown [id number] 2.16.840.1.568611.3.579.2. [address] [facility] [id number] 2.16.840.1.979415.19 Social History Date Type Detail Facility Unknown if ever smoked [facility] [employer] Other Sex Assigned At [facility] [employer] Other Tobacco smoking status No Smoking Status Entered [facility] Start: 06-20-2023 Tobacco smoking status GAIS [...] Assessment Result Facility 04-12-2022 Functional Status N/A [facility] History of Present illness Narrative [...] Devan Tello DO documented in this encounter [facility] Discharge instructions 04-12-2022 Note Date & Type [...] help with your condition: Managing pain Take yezb-ooz-svdpjlh and prescription medicines only as told by [...] 09/14/2006 Document Revised: 04/04/2019 Document Reviewed: 04/04/2019 [email or web address] Patient Education 2020 [employer]. 04/12/2022 21:07:38 Vertigo Vertigo Vertigo is the [...] if you feel dizzy. General instructions Take noyf-bbm-pwedoof and prescription medicines only as told by [...] 06/24/2006 Document Revised: 08/08/2019 Document Reviewed: 08/08/2019 [email or web address] Patient Education 2020 [employer]. Follow Up Care 04/12/2022 19:25:17 With:ADRYAN MARIE Address: [address] [place] [address] Business (1) When:04/15/2022 20:55:24 Comments:Return to the emergency room if her headache gets worse, vertigo becomes persistent or any new symptoms [facility] Evaluation note 04-09-2022 Note Date [...] She was prescribed Zofran with no improvement. [facility] Other Evaluation note 04-02-2022 Note Date & [...] 3 days. No swimming for a week [facility] Other Clinical Note 10-25-2021 Note Date & Type Note Facility 10-25-2021 Note OPERATIVE NOTE PROCEDURE: Diagnostic laparoscopy. PREOPERATIVE DIAGNOSIS: Pelvic pain, dyspareunia dysmenorrhea. POSTOPERATIVE DIAGNOSIS: Pelvic pain, dyspareunia dysmenorrhea. ANESTHESIA: General. SURGEON: Devan Tello D.O. [employer]STER [employer]ICE DETECTIVE: JAE Worley URINE OUTPUT: Yellow and clear. [...] taken to Recovery Room in stable condition. [facility] Signed and Approved by: DR DEVAN TELLO . 11/01/2021 17:31:00 [facility] Evaluation + Plan note Note Date & Type Note Facility Evaluation + Plan note No data available for this section [facility] Evaluation note Note Date & Type Note Facility Evaluation note No Information [facility] [employer] Other Evaluation note Note Date & Type [...] endometriosis Hospitalization History RSV as a baby [facility] [employer] Other Progress note Note Date & Type Note Facility Progress note No data available for this section [facility] Summary Purpose Family History No Family History Records FoundNo Family History Records FoundNo Family History Records Found Advance Directives No Advanced Directives Records FoundNo Advanced Directives Records FoundNo Advanced Directives Records Found Additional Source Comments REASON FOR VISIT (unrecogniz ed section and content) Reason Comments Routine Visit Care Team (unrecognized sect ion and content) Physician'S Aide Relationship Specialty Start Date End Date Adryan Marie MD [address] [place] [address] PCP - General Family Medicine 06/19/23 Physician'S Aide Relationship Specialty Start Date End Date Adryan Marie MD [address] [place] [address] PCP - General Family Medicine 06/19/23 INFORMATION SOURCE (unrecogn ized section and content) DATE CREATED AUTHOR 04/26/2022 Cunningham Jefe [facility] DATE CREATED AUTHOR AUTHOR'S ORGANIZ ATION 09/19/2022 [facility] DATE CREATED AUTHOR AUTHOR'S ORGANIZ ATION 05/13/2024 [facility] d[facility] Specialists [facility] FOR RECORDS PERTAINING TO PATIENTS WHO [...] BE BASED ON THE PRIMARY CLINICAL RECORDS. [facility]. provides no warranty or guarantee of the accuracy or completeness of information in this document.
[2024-05-23] MEDS: CIPROFLOXACIN HCL/DEXAMETH 0.3%/0.1% OTIC SUSP 150 DROP/7.5 ML BOTTLE OT (11:29)
--- NOTE | 2024-05-23 11:37 | ED.EAR1 ---
HPI - Ear Problem General Chief complaint: Ear Stated complaint: EAR PAIN Time Seen by Provider: 05/23/24 10:37 Source: patient Mode of arrival: walk-in History of Present Illness HPI Narrative: The patient presented to us for evaluation of her ear infection, she already had a diagnosis of otitis externa few days ago and she was started on Ciprodex but she noted that today she is having more swelling in the right side Related Data Previous Rx's ?Medication ?Instructions ?Recorded ketorolac 10 mg tablet 10 mg PO TID PRN pain #10 tabs 05/20/24 Allergies Allergy/AdvReac Type Severity Reaction Status Date / Time Sulfa (Sulfonamide Allergy Intermediate Rash Verified 05/20/24 19:03 Antibiotics) Review of Systems ROS Status of ROS 10 or more systems reviewed and unremarkable except as noted in history and below [facility] Surgical History (Updated 02/02/24 @ 00:00 by ) Delivery by section Exam Narrative Exam Narrative: Nurses notes and vital signs reviewed and patient is not hypoxic. General: Well-appearing and in no apparent distress. Skin: Warm, dry, no pallor noted. No rash. Head: Normocephalic, atraumatic. Neck: Supple, non-tender. Eye: Pupils are equal, round and EOMI. No scleral icterus. Ears, Nose, Mouth, and Throat: Bilateral swelling and edema of both ear canals with intact tympanic membrane.. Oral mucosa is moist, no posterior oropharynx erythema, uvula is mid-line Cardiovascular: Regular Rate and Rhythm without murmur, gallop or rub. Respiratory: No accessory muscle use or respiratory distress. Lungs are clear to auscultation, no wheezing, rales or rhonchi Chest Wall: no tenderness Back: No midline thoracic or lumbar vertebral tenderness. No CVA tenderness Musculoskeletal: normal ROM, no calf or popliteal tenderness, no lower extremity edema/swelling GI: Abdomen is soft, non-distended. Normal bowel sounds. No masses appreciated. No tenderness to palpation. No rebound, guarding, or rigidity noted. Neurological: A&O x4. No cranial nerve dysfunction observed. No truncal ataxia. Moves all extremities. Sensation intact. Psychiatric: Cooperative and interactive. Normal mood and affect. Constitutional Vital Signs, click to edit/add: Last Vital Signs Temp 98.0 F 05/23/24 10:26 Pulse 95 H 05/23/24 10:26 Resp 18 05/23/24 10:26 BP 136/72 05/23/24 10:26 Pulse Ox 98 05/23/24 10:26 O2 Del Method Room Air 05/23/24 10:26 Course Vital Signs Vital signs: Vital Signs Temperature 98.0 F 05/23/24 10:26 Pulse Rate 95 H 05/23/24 10:26 Respiratory Rate 18 05/23/24 10:26 Blood Pressure 136/72 05/23/24 10:26 Pulse Oximetry 98 05/23/24 10:26 Oxygen Delivery Method Room Air 05/23/24 10:26 Temperature 98.0 F 05/23/24 10:26 Pulse Rate 95 H 05/23/24 10:26 Respiratory Rate 18 05/23/24 10:26 Blood Pressure 136/72 05/23/24 10:26 Pulse Oximetry 98 05/23/24 10:26 Oxygen Delivery Method Room Air 05/23/24 10:26 Medical Decision Making MDM Narrative Medical decision making narrative: The patient was getting evaluated for otitis externa of the right ear after she was already diagnosed with the same thing in the left ear I was awaiting the ear wick as well as Ciprodex order at the bedside before further management of the patient when she just left her room Discharge Plan Discharge Stand Alone Forms: Portal Instructions Chief Complaint: Ear Clinical Impression: Otitis externa Qualifiers: Otitis externa type: diffuse Chronicity: acute Laterality: right Qualified Code(s): H60.311 - Diffuse otitis externa, right ear Patient Disposition: Left Against Medical Advice Time of Disposition Decision: 11:51 Condition: Good Mode of Transportation: Private Vehicle Prescriptions / Home Meds: No Action ketorolac 10 mg tablet 10 mg PO TID PRN (Reason: pain) Qty: 10 0RF Print Language: Luxembourger Referrals: ADRYAN MOORE [Primary Care Provider] - 1 week Discharge Date/Time: 05/23/24 11:50
== END 2024-05-23 11:50 | disposition left against medical advice (07) ==
PROVIDERS: Emergency Provider Emergency Medicine; PCP Family Medicine
DX: H60.311 Diffuse otitis externa, right ear (principal)
CPT/HCPCS: 99284

== ENCOUNTER 2024-08-29 20:38 | Outpatient (REF) | payer OTHER, SELFPAY ==
--- OUTSIDE RECORDS SUMMARY | 2024-08-29 20:44 | XMS_ITS | CCD ---
Author Organization [facility] Care Team Providers Care Financial Engineer Name Role Phone Deonna Back Unavailable ADRYAN MARIE Primary Care Physician [phone] LESLEY, DR LUIS ANTONIO Jorge Consulting Unavailable [...] LESLEY, DR LUIS ANTONIO Jorge Admitting Unavailable SUTTON, DR LUIS ANTONIO Jorge Consulting Unavailable LESLEY, [...] Unavailable Defrance Adryan OBRIEN Primary Care Provider DERIC, CYDNEY Attending Unavailable DERIC, CYDNEY Attending Unavailable OMER, DEVAN Attending Unavailable DERIC, CYDNEY Attending Unavailable OMER, DEVAN Attending Unavailable DERIC, CYDNEY Attending Unavailable OMER, DEVAN Attending Unavailable DERIC, CYDNEY Attending Unavailable OMER, DEVAN Attending Unavailable DERIC, CYDNEY Attending Unavailable OMER, DEVAN Attending Unavailable DERIC, CYDNEY Attending Unavailable OMER, DEVAN Attending Unavailable OMER, DEVAN Attending Unavailable OMER, DEVAN Attending Unavailable Allergies Allergy Classification Reported Allergen(s) Allergy Type Date of Onset Reaction(s) Facility (3 sources) Sulfacetamide Drug Allergy rash [employer] Other (1 source) Sulfonamides (Antibiotic); Translations: [sulfa drugs] Drug allergy Hyperpyrexia (finding) [facility] (1 source) Sulfonamides (Antibiotic) Drug allergy (disorder) 07-26-20 14 [facility] (4 sources) Sulfonamides (Antibiotic) Drug Intolerance 06-17-20 18 Fever, Hives, Rash [facility] Work Phone: Medications Current Medications Medication Drug Class(es) Dates Sig (Normalized) Sig (Original) azithromycin 250 mg oral tablet (1 source) Macrolide Antimicrobial Start: 03-08-2024 azithromycin (Zithromax Z-Darren) 250 MG tablet Indications: Upper respiratory tract infection, unspecified type As directed 6 tablet 03/08/2024 Active citalopram 20 mg oral tablet (1 source) Serotonin Reuptake Inhibitor Start: 04-14-2024 End: 04-14-2025 take 1 tablet by mouth once daily citalopram (CeleXA) 20 MG tablet Indications: Post- depression (CMS/HCC) Take 1 tablet (20 mg) by mouth Daily 30 tablet 11 04/14/2024 04/14/2025 Active diphenhydrAMINE hydrochloride 25 mg oral capsule (1 source) Histamine-1 Receptor Antagonist Start: 03-29-2024 take 1 capsule by mouth every six hours diphenhydrAMINE (Benadryl Allergy) 25 MG capsule Indications: Allergy, initial encounter Take 1 capsule (25 mg) by mouth every 6 (six) hours if needed for itching for up to 10 days 30 capsule 03/29/2024 Active Ethinyl Estradiol / Ferrous fumarate / Norethindrone (1 source) Estrogen Start: 05-12-2024 take 1 tablet by mouth once daily, then take 1 tablet by mouth once daily norethindrone-ethin yl estradiol (Junel 10/17) 1-20 MG-MCG tablet Indications: Encounter for initial prescription of contraceptive pills Take 1 tablet by mouth Daily for 28 days Take 1 tablet by mouth daily 28 tablet 05/12/2024 Active ethinyl estradiol 0.035 mg / norgestimate 0.25 mg oral tablet (1 source) Progestin, Estrogen Start: 04-14-2024 take 1 tablet by mouth once daily, then take 1 tablet by mouth once daily norgestimate-ethiny l estradiol (Sprintec 28) 0.25-35 MG-MCG tablet Indications: Surveillance for control, oral contraceptives Take 1 tablet by mouth Daily Take 1 tablet by mouth daily 90 tablet 04/14/2024 Active fluticasone propionate 0.05 mg/actuat metered dose nasal [...] BY MOUTH EVERY MORNING 0 10/06/2023 Active CE-Wsq-CT-Campo-3 ( Gummies/DHA & FA) 0.4-32.5 MG chewable tablet (3 sources) Start: 06-19-2023 End: 06-18-2024 BQ-Pmw-KF-Campo-3 ( Gummies/DHA & FA) 0.4-32.5 MG chewable tablet Indications: Missed menses Chew 32.5 mg in the morning. 30 tablet 11 06/19/2023 06/18/2024 Active Completed/Discontinued Medications Medication Drug Class(es) Dates Sig (Normalized) Sig (Original) [id number] 200 actuat albuterol 0.09 mg/actuat metered dose [...] / neomycin 3.5 mg/ml / polymyxin b [id number] unt/ml otic suspension (3 sources) Aminoglycoside Antibacterial, Polymyxin-class Antibacterial, Corticosteroid Start: 04-02-2022 Neomycin-Polymyx in-HC [id number] 3 drops left ear Three times a [...] W/AND (SUSP) EXPOS COVID-19] Onset: 10-24-2021 Unclassified (4 sources) OB Reminders Onset: 06-27-2023 06-27-2023 Past [...] Negative Negative - 4(70) +++ mg/dL [facility] Blood, UA Negative Negative - 50 Cedric/mcL [facility] Clarity, UA Clear [facility] re Color, UA Yellow [facility] Gl[facility], UA Negative Negative - 1999(110) ++++ mg/dL [facility] Interpretation and review of laboratory results Normal [facility] Ketones, UA Negative Negative - 160(16) ++++ mg/dL [facility] Leukocytes, UA Negative Negative - 500+++ Alessandro/mcL [facility] Nitrite, UA Negative Negative - Positive [facility] pH, UA 6.0 5 - 9 [facility] e Protein, UA Negative Negative - 1999(20) ++++ mg/dL [facility] Spec Grav, UA 1.020 1 - 1.03 [facility] Urobilinogen, UA 0.2 0.2 - 12 mg/dL [facility] ALL CBC WITH AUTO DIFFon BASOPHILS ABSOLUTE AUTO 0.0 [facility] Basophils/100 WBC (Bld) 0.3 % 0.2 - 2.0 % [facility] Eosinophils/100 WBC (Bld) 1.0 % 0.9 - 7.0 % [facility] Erythrocyte distribution width (RBC) [Ratio] 12.5 % 11.0 - 15.0 % [facility] Hematocrit (Bld) [Volume fraction] 35.1 % Low 36.0 - 48.0 % [facility] Hemoglobin (Bld) [Mass/Vol] 11.7 g/dL Low 12.0 - 16.0 g/dL [facility] IMMATURE GRANULOCYTES ABS AUTO 0.08 High [facility] Immature granulocytes/100 WBC (Bld) 0.6 % High 0.0 - 0.5 % [facility] Interpretation and review of laboratory results Abnormal [facility] LYMPHOCYTES ABSOLUTE AUTO 1.6 [facility] Lymphocytes/100 WBC (Bld) 11.9 % Low 20.5 - 60.0 % [facility] MCH (RBC) [Entitic mass] 30.7 pg 26.7 - 34.0 pg [facility] MCHC (RBC) [Mass/Vol] 33.3 g/dL 29.9 - 35.2 g/dL [facility] MCV (RBC) [Entitic vol] 92.1 fL 81.0 - 99.0 fL [facility] MONOCYTES ABSOLUTE AUTO 0.8 [facility] Monocytes/100 WBC (Bld) 5.5 % 1.7 - 12.0 % [facility] NEUTROPHILS ABSOLUTE AUTO 11.1 High [facility] Neutrophils/100 WBC (Bld) 80.7 % High 43.0 - 75.0 % [facility] Platelet mean volume (Bld) [Entitic vol] 10.6 fL 9.5 - 13.5 fL [facility] are [facility] EO # 0.1 [facility] PLT 292 [facility] RBC 3.81 Low [facility] WBC 13.8 High [facility] CBC AUTO DIFFon 09-14-2022 BASO # 0.0 103/ul Normal 0.0-0.1 [facility] Comment on above: Performed By: #### B GURPREET, TSH #### [facility] [address] [place] [address] Dr. Reema Mireles Basophils/100 WBC (Bld) 0.6 % Normal 0.2-2.0 [facility] Comment on above: Performed By: #### B MP, TSH #### [facility] [address] [address] [address] Reema Mireles EO # 0.0 103/ul Normal 0.0-0.7 [facility] Comment on above: Performed By: #### B MP, TSH #### [facility] [address] [place] [address] Dr. Reema Mireles Eosinophils/100 WBC (Bld) 0.6 % Critically low 0.9-7.0 [facility] Comment on above: Performed By: #### B GURPREET, TSH #### [facility] [address] [place] [address] Dr. Reema Mireles Erythrocyte distribution width (RBC) [Ratio] 11.9 % Normal 11.0-15.0 [facility] Comment on above: Performed By: #### B GURPREET, TSH #### [facility] [address] [place] [address] Dr. Reema Mireles Hematocrit (Bld) [Volume fraction] 37.8 % Normal 36.0-48.0 [facility] Comment on above: Performed By: #### Inna VÁZQUEZ, TSH #### [facility] [address] [place] [address] Dr. Reema Mireles Hemoglobin (Bld) [Mass/Vol] 13.5 g/dL Normal 12.0-16.0 [facility] Comment on above: Performed By: #### Inna VÁZQUEZ, TSH #### [facility] [address] [place] [address] Dr. Reema Mireles IG # 0.01 10e3/ul Normal 0.00-0.03 [facility] Comment on above: Performed By: #### Inna VÁZQUEZ, TSH #### [facility] [address] [place] [address] Dr. Reema Mireles IG % 0.2 % Normal 0.0-0.5 [facility] Comment on above: Performed By: #### B GURPREET, TSH #### [facility] [address] [place] [address] Dr. Reema Mireles LYMPH # 1.6 103/ul Normal 1.2-3.8 [facility] Comment on above: Performed By: #### Inna VÁZQUEZ, TSH #### [facility] [address] [place] [address] Dr. Reema Mireles Lymphocytes/100 WBC (Bld) 25.5 % Normal 20.5-60.0 [facility] Comment on above: Performed By: #### Inna VÁZQUEZ, TSH #### [facility] [address] [place] [address] Dr. Reema Mireles MANUAL DIFF REQ NO Normal [facility] Comment on above: Performed By: #### B MP, TSH #### [facility] [address] [place] [address] Dr. Reema Mireles MCH (RBC) [Entitic mass] 30.9 pg Normal 26.7-34.0 [facility] Comment on above: Performed By: #### B GURPREET, TSH #### [facility] [address] [place] [address] Dr. Reema Mireles MCHC (RBC) [Mass/Vol] 35.7 g/dL Critically high 29.9-35.2 [facility] Comment on above: Performed By: #### B GURPREET, TSH #### [facility] [address] [place] [address] Dr. Reema Mireles MCV (RBC) [Entitic vol] 86.5 fL Normal 81.0-99.0 [facility] Comment on above: Performed By: #### B GURPREET, TSH #### [facility] [address] [place] [address] Dr. Reema Mireles MONO # 0.5 103/ul Normal 0.3-0.8 [facility] Comment on above: Performed By: #### B GURPREET, TSH #### [facility] [address] [place] [address] Dr. Reema Mireles Monocytes/100 WBC (Bld) 8.5 % Normal 1.7-12.0 [facility] Comment on above: Performed By: #### B GURPREET, TSH #### [facility] [address] [place] [address] Dr. Reema Mireles NEUT # 4.1 103/ul Normal 1.4-6.5 [facility] Comment on above: Performed By: #### B MP, TSH #### [facility] [address] [place] [address] Dr. Reema Mireles Neutrophils/100 WBC (Bld) 64.6 % Normal 43.0-75.0 [facility] Comment on above: Performed By: #### B GURPREET, TSH #### [facility] [address] [place] [address] Dr. Reema Mireles Platelet mean volume (Bld) [Entitic vol] 9.9 fL Normal 9.5-13.5 [facility] Comment on above: Performed By: #### B MP, TSH #### [facility] [address] [place] [address] Dr. Reema Mireles PLT 403 103/ul Normal 150-450 [facility] Comment on above: Performed By: #### B MP, TSH #### [facility] [address] [place] [address] Dr. Reema Mireles RBC 4.37 106/ul Normal 4.20-5.40 [facility] Comment on above: Performed By: #### B MP, TSH #### [facility] [address] [place] [address] Dr. Reema Mireles WBC 6.3 103/ul Normal 4.0-11.0 [facility] Comment on above: Performed By: #### B GURPREET, TSH #### [facility] [address] [place] [address] Dr. Reema Mireles PROF 14(COMP METB)on 022 Albumin [Mass/Vol] 4.3 g/dL Normal 3.4-5.0 [facility] Comment on above: Performed By: #### B GURPREET, TSH #### [facility] [address] [place] [address] Dr. Reema Mireles Albumin/Globulin [Mass ratio] 1.2 {ratio} Normal [facility] Comment on above: Performed By: #### B MP, TSH #### [facility] [address] [place] [address] Dr. Reema Mireles ALP [Catalytic activity/Vol] 79 U/L Normal 46-116 [facility] Comment on above: Performed By: #### B MP, TSH #### [facility] [address] [place] [address] Dr. Reema Mireles ALT [Catalytic activity/Vol] 31 U/L Normal 14-59 [facility] Comment on above: Performed By: #### B MP, TSH #### [facility] [address] [place] [address] Dr. Reema Mireles Anion gap [Moles/Vol] 12.1 mmol/L Normal [facility] Comment on above: Performed By: #### B GURPREET, TSH #### [facility] [address] [place] [address] Dr. Reema Mireles AST [Catalytic activity/Vol] 17 U/L Normal 15-37 [facility] Comment on above: Performed By: #### B GURPREET, TSH #### [facility] [address] [place] [address] Dr. Reema Mireles Bilirubin [Mass/Vol] 0.4 mg/dL Normal 0.2-1.0 [facility] Comment on above: Performed By: #### B GURPREET, TSH #### [facility] [address] [place] [address] Dr. Reema Mireles Calcium [Mass/Vol] 8.9 mg/dL Normal 8.5-10.1 [facility] Comment on above: Performed By: #### B GURPREET, TSH #### [facility] [address] [place] [address] Dr. Reema Mireles Chloride [Moles/Vol] 98 mmol/L Normal 98-107 [facility] Comment on above: Performed By: #### B GURPREET, TSH #### [facility] [address] [place] [address] Dr. Reema Mireles CO2 [Moles/Vol] 27.0 mmol/L Normal 21.0-32.0 [facility] Comment on above: Performed By: #### B GURPREET, TSH #### [facility] [address] [place] [address] Dr. Reema Mireles Creatinine [Mass/Vol] 0.65 mg/dL Normal 0.55-1.02 [facility] Comment on above: Performed By: #### B GURPREET, TSH #### [facility] [address] [place] [address] Dr. Reema Mireles EGFR-AF CYPRIOT >60 Normal >=60 [facility] Comment on above: Performed By: #### B GURPREET, TSH #### [facility] [address] [place] [address] Dr. Reema Mireles EGFR-NON AF CYPRIOT >60 Normal >=60 [facility] Comment on above: Performed By: #### B GURPREET, TSH #### [facility] [address] [place] [address] Dr. Reema Mireles Globulin (S) [Mass/Vol] 3.5 g/dL Normal [facility] Comment on above: Performed By: #### B GURPREET, TSH #### [facility] [address] [place] [address] Dr. Reema Mireles Glucose [Mass/Vol] 106 mg/dL Normal 74-106 [facility] Comment on above: Performed By: #### B GURPREET, TSH #### [facility] [address] [place] [address] Dr. Reema Mireles Potassium [Moles/Vol] 3.1 mmol/L Critically low 3.5-5.1 [facility] Comment on above: Performed By: #### B GURPREET, TSH #### [facility] [address] [place] [address] Dr. Reema Mireles Protein [Mass/Vol] 7.8 g/dL Normal 6.4-8.2 [facility] Comment on above: Performed By: #### B GURPREET, TSH #### [facility] [address] [place] [address] Dr. Reema Mireles Sodium [Moles/Vol] 134 mmol/L Critically low 136-145 [facility] Comment on above: Performed By: #### B GURPREET, TSH #### [facility] [address] [place] [address] Dr. Reema Mireles Urea nitrogen [Mass/Vol] 6.0 mg/dL Critically low 7.0-18.0 [facility] Comment on above: Performed By: #### B GURPREET, TSH #### [facility] [address] [place] [address] Dr. Reema Mireles Urea nitrogen/Creatinine [Mass ratio] 9.2 mg/mg Normal [facility] Comment on above: Performed By: #### B GURPREET, TSH #### [facility] [address] [place] [address] Dr. Reema Mireles ACETONE SERUMon 08-11-2022 ACETONE Negative Normal NEGATIVE [facility] Comment on above: Performed By: #### B GURPREET, TSH #### [facility] [address] [place] [address] Dr. Reema Mireles CBC AUTO DIFFon 08-11-2022 BASO # 0.1 103/ul Normal 0.0-0.1 [facility] Comment on above: Performed By: #### B GURPREET, TSH #### [facility] [address] [place] [address] Dr. Reema Mireles Basophils/100 WBC (Bld) 0.5 % Normal 0.2-2.0 [facility] Comment on above: Performed By: #### B GURPREET, TSH #### [facility] [address] [place] [address] Dr. Reema Mireles EO # 0.1 103/ul Normal 0.0-0.7 [facility] Comment on above: Performed By: #### B GURPREET, TSH #### [facility] [address] [place] [address] Dr. Reema Mireles Eosinophils/100 WBC (Bld) 0.7 % Critically low 0.9-7.0 [facility] Comment on above: Performed By: #### B GURPREET, TSH #### [facility] [address] [place] [address] Dr. Reema Mireles Erythrocyte distribution width (RBC) [Ratio] 11.7 % Normal 11.0-15.0 [facility] Comment on above: Performed By: #### B GURPREET, TSH #### [facility] [address] [place] [address] Dr. Reema Mireles Hematocrit (Bld) [Volume fraction] 37.6 % Normal 36.0-48.0 [facility] Comment on above: Performed By: #### B GURPREET, TSH #### [facility] [address] [place] [address] Dr. Reema Mireles Hemoglobin (Bld) [Mass/Vol] 13.1 g/dL Normal 12.0-16.0 [facility] Comment on above: Performed By: #### B MP, TSH #### [facility] [address] [place] [address] Dr. Reema Mireles IG # 0.02 10e3/ul Normal 0.00-0.03 [facility] Comment on above: Performed By: #### B MP, TSH #### [facility] [address] [place] [address] Dr. Reema Mireles IG % 0.2 % Normal 0.0-0.5 [facility] Comment on above: Performed By: #### B MP, TSH #### [facility] [address] [place] [address] Dr. Reema Mireles LYMPH # 2.7 103/ul Normal 1.2-3.8 [facility] Comment on above: Performed By: #### B MP, TSH #### [facility] [address] [place] [address] Dr. Reema Mireles Lymphocytes/100 WBC (Bld) 28.5 % Normal 20.5-60.0 [facility] Comment on above: Performed By: #### B MP, TSH #### [facility] [address] [place] [address] Dr. Reema Mireles MANUAL DIFF REQ NO Normal [facility] Comment on above: Performed By: #### B MP, TSH #### [facility] [address] [place] [address] Dr. Reema Mireles MCH (RBC) [Entitic mass] 30.3 pg Normal 26.7-34.0 [facility] Comment on above: Performed By: #### B MP, TSH #### [facility] [address] [place] [address] Dr. Reema Mireles MCHC (RBC) [Mass/Vol] 34.8 g/dL Normal 29.9-35.2 [facility] Comment on above: Performed By: #### B MP, TSH #### [facility] [address] [place] [address] Dr. Reema Mireles MCV (RBC) [Entitic vol] 87.0 fL Normal 81.0-99.0 [facility] Comment on above: Performed By: #### B MP, TSH #### [facility] [address] [address] [address] Reema Mireles MONO # 0.8 103/ul Normal 0.3-0.8 [facility] Comment on above: Performed By: #### B MP, TSH #### [facility] [address] [place] [address] Dr. Reema Mireles Monocytes/100 WBC (Bld) 8.2 % Normal 1.7-12.0 [facility] Comment on above: Performed By: #### B MP, TSH #### [facility] [address] [place] [address] Dr. Reema Mireles NEUT # 5.9 103/ul Normal 1.4-6.5 [facility] Comment on above: Performed By: #### B MP, TSH #### [facility] [address] [place] [address] Dr. Reema Mireles Neutrophils/100 WBC (Bld) 61.9 % Normal 43.0-75.0 [facility] Comment on above: Performed By: #### B MP, TSH #### [facility] [address] [place] [address] Dr. Reema Mireles Platelet mean volume (Bld) [Entitic vol] 10.2 fL Normal 9.5-13.5 [facility] Comment on above: Performed By: #### B MP, TSH #### [facility] [address] [place] [address] Dr. Reema Mireles PLT 382 103/ul Normal 150-450 [facility] Comment on above: Performed By: #### B MP, TSH #### [facility] [address] [place] [address] Dr. Reema Mireles RBC 4.32 106/ul Normal 4.20-5.40 [facility] Comment on above: Performed By: #### B MP, TSH #### [facility] [address] [place] [address] Dr. Reema Mireles WBC 9.6 103/ul Normal 4.0-11.0 [facility] Comment on above: Performed By: #### B MP, TSH #### [facility] [address] [place] [address] Dr. Reema Mireles CRPon 08-11-2022 CRP [Mass/Vol] mg/L Normal <=1.0 [facility] Comment on above: Performed By: #### B MP, TSH #### [facility] [address] [place] [address] Dr. Reema Mireles ER URINE PROFILEon 2 Bilirubin Ql (U) Negative Normal NEGATIVE [facility] Comment on above: Performed By: #### B MP, TSH #### [facility] [address] [place] [address] Dr. Reema Mireles Clarity (U) CLEAR Normal CLEAR [facility] Comment on above: Performed By: #### B MP, TSH #### [facility] [address] [place] [address] Dr. Reema Mireles Color (U) LT. YELLOW Normal YELLOW [facility] Comment on above: Performed By: #### B MP, TSH #### [facility] [address] [place] [address] Dr. Reema Mireles ERUJohana A micrscopic examination will be performed if indicated. Normal [facility] Comment on above: Performed By: #### B MP, TSH #### [facility] [address] [place] [address] Dr. Reema Mireles Glucose Ql (U) Negative Normal NEGATIVE [facility] Comment on above: Performed By: #### B MP, TSH #### [facility] [address] [place] [address] Dr. Reema Mireles Hemoglobin Ql (U) Negative Normal NEGATIVE [facility] Comment on above: Performed By: #### B MP, TSH #### [facility] [address] [place] [address] Dr. Reema Mireles Ketones Ql (U) Negative Normal NEGATIVE [facility] Comment on above: Performed By: #### B MP, TSH #### [facility] [address] [place] [address] Dr. Reema Mireles LEUKOCYTES Negative Normal NEGATIVE [facility] Comment on above: Performed By: #### B MP, TSH #### [facility] [address] [place] [address] Dr. Reema Mireles Nitrite Ql (U) Negative Normal NEGATIVE [facility] Comment on above: Performed By: #### B MP, TSH #### [facility] [address] [place] [address] Dr. Reema Mireles pH (U) 5.5 [pH] Normal 5-9 [facility] Comment on above: Performed By: #### B MP, TSH #### [facility] [address] [place] [address] Dr. Reema Mireles SPEC GRAVITY <=1.005 Abnormal 1.005-<=1.025 [facility] Comment on above: Performed By: #### B MP, TSH #### [facility] [address] [place] [address] Dr. Reema Mireles UA PROTEIN Negative Normal NEGATIVE/ TRACE [facility] Comment on above: Performed By: #### B GURPREET, TSH #### [facility] [address] [place] [address] Dr. Reema Mireles UR MICRO IND NOT INDICATED Normal [facility] Comment on above: Performed By: #### B MP, TSH #### [facility] [address] [place] [address] Dr. Reema Mireles Urobilinogen Qn (U) 0.2 {Renny'U}/dL Normal 0.2 - 1. 0 [facility] Comment on above: Performed By: #### B MP, TSH #### [facility] [address] [place] [address] Dr. Reema Mireles LIPASEon 08-11-2022 Lipase [Catalytic activity/Vol] 71.0 U/L Critically low 73.0-393.0 [facility] Comment on above: Performed By: #### B MP, TSH #### [facility] [address] [place] [address] Dr. Reema Mireles URon 08-11-2022 , QUAL Negative Normal NEGATIVE [facility] Comment on above: Performed By: #### C VDTBH #### [facility] [address] [address] [address] Reema Mireles PROF 14(COMP METB)on 022 Albumin [Mass/Vol] 4.3 g/dL Normal 3.4-5.0 [facility] Comment on above: Performed By: #### B MP, TSH #### [facility] [address] [address] [address] Reema Mireles Albumin/Globulin [Mass ratio] 1.2 {ratio} Normal [facility] Comment on above: Performed By: #### B MP, TSH #### [facility] [address] [address] [address] Reema Mireles ALP [Catalytic activity/Vol] 70 U/L Normal 46-116 [facility] Comment on above: Performed By: #### B MP, TSH #### [facility] [address] [place] [address] Dr. Reema Mireles ALT [Catalytic activity/Vol] 16 U/L Normal 14-59 [facility] Comment on above: Performed By: #### B MP, TSH #### [facility] [address] [address] [address] Reema Mireles Anion gap [Moles/Vol] 10.5 mmol/L Normal [facility] Comment on above: Performed By: #### B MP, TSH #### [facility] [address] [address] [address] Reema Mireles AST [Catalytic activity/Vol] 8 U/L Critically low 15-37 [facility] Comment on above: Performed By: #### B MP, TSH #### [facility] [address] [address] [address] Reema Mireles Bilirubin [Mass/Vol] 0.3 mg/dL Normal 0.2-1.0 [facility] Comment on above: Performed By: #### B MP, TSH #### [facility] [address] [address] [address] Reema Mireles Calcium [Mass/Vol] 9.0 mg/dL Normal 8.5-10.1 [facility] Comment on above: Performed By: #### B MP, TSH #### [facility] [address] [address] [address] Reema Mireles Chloride [Moles/Vol] 104 mmol/L Normal 98-107 [facility] Comment on above: Performed By: #### B MP, TSH #### [facility] [address] [address] [address] Reema Mireles CO2 [Moles/Vol] 26.5 mmol/L Normal 21.0-32.0 [facility] Comment on above: Performed By: #### B MP, TSH #### [facility] [address] [address] [address] Reema Mireles Creatinine [Mass/Vol] 0.79 mg/dL Normal 0.55-1.02 [facility] Comment on above: Performed By: #### B MP, TSH #### [facility] [address] [address] [address] Reema Mireles EGFR-AF CYPRIOT >60 Normal >=60 [facility] Comment on above: Performed By: #### B MP, TSH #### [facility] [address] [place] [address] Dr. Reema Mireles EGFR-NON AF CYPRIOT >60 Normal >=60 [facility] Comment on above: Performed By: #### B MP, TSH #### [facility] [address] [place] [address] Dr. Reema Mireles Globulin (S) [Mass/Vol] 3.5 g/dL Normal [facility] Comment on above: Performed By: #### B MP, TSH #### [facility] [address] [place] [address] Dr. Reema Mireles Glucose [Mass/Vol] 106 mg/dL Normal 74-106 [facility] Comment on above: Performed By: #### B MP, TSH #### [facility] [address] [place] [address] Dr. Reema Mireles Potassium [Moles/Vol] 3.0 mmol/L Critically low 3.5-5.1 [facility] Comment on above: Performed By: #### B MP, TSH #### [facility] [address] [place] [address] Dr. Reema Mireles Protein [Mass/Vol] 7.8 g/dL Normal 6.4-8.2 [facility] Comment on above: Performed By: #### B MP, TSH #### [facility] [address] [place] [address] Dr. Reema Mireles Sodium [Moles/Vol] 138 mmol/L Normal 136-145 [facility] Comment on above: Performed By: #### B MP, TSH #### [facility] [address] [place] [address] Dr. Reema Mireles Urea nitrogen [Mass/Vol] 8.0 mg/dL Normal 7.0-18.0 [facility] Comment on above: Performed By: #### B MP, TSH #### [facility] [address] [place] [address] Dr. Reema Mireles Urea nitrogen/Creatinine [Mass ratio] 10.1 mg/mg Normal [facility] Comment on above: Performed By: #### B MP, TSH #### [facility] [address] [place] [address] Dr. Reema Mireles PROTIMEon 08-11-2022 INR Coag (PPP) [Relative time] 1.00 {INR} Normal [facility] Comment on above: Performed By: #### P T, PTT #### [facility] [address] [place] [address] Dr. Reema Mireles INR GUIDELINES SEE BELOW Normal [facility] Comment on above: Result Comment: FELICIANO RED INR: 2.0 - 3.0 CONDITIONS NOT LISTED BELOW 2.5 - 3.5 FOR PROSTHETIC HEART VALVE REPLACEMENT 2.5 - 3.5 RECURRENT THROMBOSIS Performed By: #### P T, PTT #### [facility] [address] [place] [address] Dr. Reema Mireles PT Coag (PPP) [Time] 10.8 s Normal 9.0-11.6 [facility] Comment on above: Performed By: #### P T, PTT #### [facility] [address] [place] [address] Dr. Reema Mireles PTTon 08-11-2022 aPTT Coag (Bld) [Time] 30.8 s Normal 22.3-36.2 [facility] Comment on above: Performed By: #### P T, PTT #### [facility] [address] [address] [address] Reema Mireles [facility] SED RATE 10 mm/hr Normal <=20 [facility] Comment on above: Performed By: #### B MP, TSH #### [facility] [address] [address] [address] Reema Mireles TSHon 08-11-2022 TSH 3.313 uIU/mL Normal 0.358-3.740 [facility] Comment on above: Performed By: #### B MP, TSH #### [facility] [address] [place] [address] Dr. Reema Mireles Discharge Instructionson Discharge Instructions [id number] #1.00CD:127 Normal [facility] Comment on above: Other Comment: wrong patient STOOL CULTUREon 04-20-2022 Campylobacter Culture Final report Normal [facility] Comment on above: Performed By: #### B MP, TSH #### [facility] [address] [place] [address] Dr. Reema Mireles E coli Shiga Toxin EIA Negative Normal Negative [facility] Comment on above: Performed By: #### B MP, TSH #### [facility] [address] [place] [address] Dr. Reema Mireles Result 1 Comment Normal [facility] Comment on above: Result Comment: No S almonella or Shigella recovered. Performed By: #### B MP, TSH #### [facility] [address] [place] [address] Dr. Reema Mireles Result Comment: No C ampylobacter species isolated. Salmonella/Shigella Screen Final report Normal [facility] Comment on above: Performed By: #### B MP, TSH #### [facility] [address] [place] [address] Dr. Reema Mireles Coding Summary.on 04-14-2022 Coding Summary. CD:[id number] Gh0bWw+PGhlYWQ+PE1FV FSyU75xkMMkqV2CF1jJG T6LZIUTRLEOGK9KLP9hr WG1ADlaG1LjviOi EfmhsVDoCB41EYr2UKI2 gQbiJMmipS2opNFeD5o6 QmWxLH04vX87UYphTHGy FaY2MtJrwvjetDBi O7kdWeKimYSzFfj+PHRh YmxlIHdpZHRoPScxMDAl EbAwiJysIZ2gOo3oPBYr LWNvbGxhcHNlOiBj w0orRJRgSNfxOT9nkJru J6WztKP6MGYbc6r2Ac47 dHI+EJVcPGY4qXwdMBtq k192IcWgj8fpUCL9 kHDoODvmMZI3N62ir0M0 NUPqQPZtZVR0qVU8dK4h lNoqcjytI9XqfSLmQmW1 KYQ9zCSyrD2btMfc gitljB6fQak+F88PGC5M TUYFHD1LDgh2X1IoVpsm dHI+LO73ZHZlEM06pMCi vYUvo1gdaYn1GfDd AFQcUCV5pIqbZFgks3Hf DBSkF54odDXat3Y3DCLe wVwthVKxDcEjuNF1uM9h SNgrervmj6ijxmfe Ymmgg8xtns92lI96C29m GSrnNCUgABF4SDVgIQZp vButqa8aeN1eUd8+IDxj l3ilc9rveAf1XuYr WERueqCmiKykHKY1y9It Kz21U2JuzJhut6BmSlj9 wq18jYXvp9D1dUD2VWun MEOpbJ2jRKywUwF4 KVMgZlTfaN40qXClAWcr Re0axOdeeZkhAU5jOYIq jzqoWUXzkH8cXXJibYCt pFfzVQ8hMUFptpxp m399KyIuTKR0CEAoqVAz F4PhdW3zWyViXVEqSZEv P1XjhOOqMVpzU608OEgq ZsE4WTFglzKbF2Mt PRIxtLbiPaX1h6F7Dm7N u2FzrsjvPWZ2JTmyDIB9 HfR4BxWePtH4Y8UgPek8 NBOimXocHM5oR3Qe RCSatkbfocekbGK3ZMHh MXNqlV99eBOdHDosPz8t r2P8t004ZKHgNDBjlG26 Of9tlFwsWBSyeWKG pU4pknxlf3iytbkhIoHw WCPrBIq2YJm3XFVbpWme ZjLtTBP6EnD7VDW3xANr iN0paPmpyddqeU1t Oyc+Q71nxD8gAXZ5KZT8 fwwuVFPlymVwMK13XR52 C7QwVtuniCBekMU+PGRp knNbqSuoNU7gUrOw a4tnl9ElSUngC9ViKNJb XYsqRfn5SZPoQVA3dIT6 pC9eNYWfCJlde5B2yQW1 C1OsjfOgfj5ia8mh SYGtWPlaN81yaTAmj8V5 KNEajRD1NKAvcJszVfDu xE69Rcc+EWCyfEouo2Ag Dnkfq7rtg6emzJw1 IjMwJSIgdmFsaWduPSJ0 x9WjXp56U68zCYkeQKEy VCYyHMXdCOMaoHauih0c tE7nFi7+PGNvbCB3 lTY9dO8uWNXxKeQ1NNkn P381BoZnhOOdTzkrp6si f2urpQo6RrRlPQRamuEx tAwjIEA1f8TtQu48 F87mPPnwCPBdZNTyYGPl IORvdBrhfo6hoM7bNg8+ TM0cb4bmvt02aX00fKA+ MGPfMNJ3aTfcRUvv OPHisM9cHOdqKtK0WEPg QbZgfQ40pUScDIzjLv5f lHntaAyaXZ1cPDRowtph y829CfWis0deCWVu bNAcUInzXXX1S03bj1M1 NJYoNQZnYQB1yPX8oM1h bGlnbjogbGVmdDsgdmVy qMqnMGinOMqyU034 IHRvcDsnPlBhdGllbnQg UdDtGOl3J2XkOrj5ZCTs oMgwBS6zpZKiQPktEa1c jCifcKczQP1tEUEh jqzei934UrLtg3ayGWRj rXGqDAxjIEK2D10em1X8 YYLrWGSlPEN3xLD5cF6a bGlnbjogbGVmdDsg wvExgIqeIJqiGNcqF504 IHRvcDsnPkJpcnRoIERh nJQ3XD62MS46zXFab6O1 fRW9G3TlMNJbujpz lpcvjZM6ODBhYHTnsS25 Xw5kjIqvQr2yTJUyJKJ8 UURqmWEoA5NbwE9iEvUx SMAuFOOuP1ZvkPIb WRobZ036NVslYnK9IMEl jgUkM5VdHHLtuGdyFsC3 w5D7Bn1BG5Y6GP47UW57 sAIsj5J4qOV1G4Pm DHYamopjxvzljKI7YZFp FAFtjV77Je8zgUncBq8w YBRjGBV0KJMtlIKfT3Sa tW5zJnNnFGPpSIUd G5GszXXnLKwvW213QFix AwI3IBWsnsSkV0XpZCKq dTkpWaQ7p3S3Vh7NAAi5 BZ14CH93lMFhn4X2 wWO6V5RnTJCknfkaczjg ePW3ZHIhRSSnkQ53Ta9b rZkgHh2gIBUkBKD6EVWv fSDxU9YplM5uGvQv BLObYNSeU0QjvMZxXHba X596TVwqSbM9RUHjnpVq T3CkAKQidHyyIzY3i2P2 De2FOQIvLB85YSY4 rGX3BD26TT08I9ImJxlu dGFibGU+PHRhYmxlIHdp ZHRoPScxMDAlJyBzdHls OZ0iNd2hVHJvKHNz jOehePVaUxRlw0fnYZOn HYpxIY4zqIayM9VqoNZ4 RSNre3f4Gc70L14iJ5Tu dXA+LQUjxOY8eZT0 nX7xOhOzTjX8KBdlF863 JzDbkNXuVlgue1dzl5zx vDs5OxL9ZJHmwmTsaCna EUX6d0UlAk32N16i IHdpZHRoPSIxNSUiIHZh xWplhi4nyQ6kSm2+PGNv tKW6rZD2vD2pEvAdXxA3 NUyqN193EzJwlBAp Cgqpo2rsa3gnfXb7UePr SQBxjkOzmSbuIOI0n9Kx Ph65N5XdsKkpa8VqXll1 dc38qHYdk3E6eBE2 D2RgXTYuaioitIEzzMup SI4mKMEeaiupSJLdgI4h ZAGdT9h3PkSiMyK4NCpa G7IuxvH7MDNapOYu KHlxNUI2B00ua4O6EXEz YQPwCSD2vPZ4nF9qzWwy bjogbGVmdDsgdmVydGlj JIpeNQmoE724VPDd cEddGCXdxK0pVUExiTDp iTlvIO5cCTFxksjrNweE WEYLZ24NM5xYQYPZOXVG MBS0E8ZzVwh1LAWr nBjnJQ0dyBVoUUybZf3d jYbzaDcsFE1kDFFbvgkc NUIkpD4zPGIguPHnkXen RX1uTGNpvxgll753 IkClEJF6DZGpfEMdK6Ly aF6vElGxZLWcFINrH8Mv dWUaOPwpO961FCaeKxQ2 LJZpnjFjE0PhDGAc zBriFlG9t4P6Xg6kSm9o JQ5xXSHyBR33ZU01gSQz y1L0aDA8L6WtKBCdbzfv bvtpjVM6YCRaOSCr kI83xIZnSSnaCe0fw5U3 e175GYIfNXYqcI23Wz4o tDbjAZTnoKBHtF6wmwwn m5ampbfnMyAdRJIq KVv6QSb3WYMglSztZgGe ZVY4LpJ1BCL7vTGqhS9o eVswluxwiA9xDni+MjAg LPOxxaM1F6SyNuu8 ADSqvDigYT5bcFCfUAuu Rx4lcAbpuKcvWF1wGISd qqrxYPJhdB4yRMWqhYEe uKmiXT5nOYFxaxue w339IxPnKLG3AKZvrILz G9RhfO3fTaNzEZInUFHt K5QimNCsYWamX892XFsi ZqM8NXXgriTxR1Vw UAYheDnbWtK6m0G8Cu5H IB0zfAT2Y1CuIud4CDLx uSiyQR5qlKLcPHwfVd8d eEvesRxuHS4fJCUq giihGKCnsF7pKPGmkIUq dQaqKZ0qDDKavfmhu752 ClAwRZG3OETfyQOfI6Vp pF2sMpFyLNKlDPUo Y8ZwbUChIYkkX183NExl OgZ7YMLqseWwM4LnKVGh nKjrFfM9b2W7Iz7AoJRv I0AjO4p5R6YcYhrx dHI+MG70NSReVI37rMPl iXJcx4zbsKv5DxKqDVRr FKT7bSclCVuzr1MbUFSx L59phDOvm5H3YVOg jAumvCSmQmZkgAD2vP3p ECrotthow0xfkyrcRabe e3tlxn08tR55X72bYGim ZHRoPSIzMCUiIHZh cZfodt4jdD3tSs9+PGNv jAR6nAX5tX5tBkEdBsK0 GQauB391ReBnoIIyCuag z0kcc6okdIp5HzYp WEVeafUswKzdSGH1g8Mo Ec77N07cNQzsNGZrURKa XPNzAHUsxLpeha1mgR0v Ii8+SB9er5ukbm80 iB61pTG+RWCwKZP9rVaq DPnqAGPffL5jKBbqOaX7 SNQlBxGfjJ16qWKeCUkw Ap7jnNdxwQevZQ4w ZAKanfhhx248QpNii2rz FXDqdAHjDFktYBC6S46x y5P8ELRmLSRcBQE5iRZ3 aF6ecRkdwamwbVXh dDsgdmVydGljYWwtYWxp Y686VIAecFefSlKonJWp D0hxmnAOED0jJrkhzMU+ UWBiDTL0jIfaOCas NLJujH1dJIJtP2s5YgYd KqK0PRilU3WydoZ4CDBq iDZyDGBsdLLNdX9nfsev a8mhfjxgXlTkKFIy BSz6BVf7SUCnfZiiRaUv FBT4ClE5JFJ3iCLdnW4n sHrmhgkfoW1cRnl+RklO OjwvdGQ+PHRkIHN0 rDwtNPhmJYXvmP3jBTQc H4g1VwTuPzH7EKtcZ8Lc euS1HYGyrZOzDZZhwVIJ hO1orlvqo4ufuwpz AyXnANXhCZw1IPk5GISn aLubNgHfVGK2LcU3HAO2 yTKflS6nlUiaqouekH9n Oyc+TVJOOjwvdGQ+ ITNyCBG3aNmtTEkqAJHo cS2zMXFdU2b6GwKmZuV9 HRszH1ZleoS8SXVkaGDc KGLlnYLWlA5troso r3vjgdwtEhFoEDJkDSt3 PKc1YHNojIwgAcLeJLT9 LpJ5IXF9wHExpN0xgNfq jsyyrP8bLgm+UGF5 WIQ8FB35AU68L7VmBsdb dGFibGU+PHRhYmxlIHdp ZHRoPScxMDAlJyBzdHls BC2yZy3iFNGwMEBk bGxh (more content not included)... Normal [facility] CBC AUTO DIFFon 04-13-2022 BASO # 0.1 103/ul Normal 0.0-0.1 [facility] Comment on above: Performed By: #### C VDTBH #### [facility] [address] [place] [address] Dr. Reema Mireles Basophils/100 WBC (Bld) 0.6 % Normal 0.2-2.0 [facility] Comment on above: Performed By: #### C VDTBH #### [facility] [address] [place] [address] Dr. Reema Mireles EO # 0.0 103/ul Normal 0.0-0.7 [facility] Comment on above: Performed By: #### C VDTBH #### [facility] [address] [place] [address] Dr. Reema Mireles Eosinophils/100 WBC (Bld) 0.2 % Critically low 0.9-7.0 [facility] Comment on above: Performed By: #### C VDTBH #### [facility] [address] [place] [address] Dr. Reema Mireles Erythrocyte distribution width (RBC) [Ratio] 11.4 % Normal 11.0-15.0 [facility] Comment on above: Performed By: #### C VDTBH #### [facility] [address] [place] [address] Dr. Reema Mireles Hematocrit (Bld) [Volume fraction] 38.3 % Normal 36.0-48.0 [facility] Comment on above: Performed By: #### C VDTBH #### [facility] [address] [address] [address] Reema Mireles Hemoglobin (Bld) [Mass/Vol] 13.4 g/dL Normal 12.0-16.0 [facility] Comment on above: Performed By: #### C VDTBH #### [facility] [address] [place] [address] Dr. Reema Mireles IG # 0.01 10e3/ul Normal 0.00-0.03 [facility] Comment on above: Performed By: #### C VDTBH #### [facility] [address] [place] [address] Dr. Reema Mireles IG % 0.1 % Normal 0.0-0.5 [facility] Comment on above: Performed By: #### C VDTBH #### [facility] [address] [place] [address] Dr. Reema Mireles LYMPH # 1.8 103/ul Normal 1.2-3.8 [facility] Comment on above: Performed By: #### C VDTBH #### [facility] [address] [place] [address] Dr. Reema Mireles Lymphocytes/100 WBC (Bld) 22.2 % Normal 20.5-60.0 [facility] Comment on above: Performed By: #### C VDTBH #### [facility] [address] [place] [address] Dr. Reema Mireles MANUAL DIFF REQ NO Normal [facility] Comment on above: Performed By: #### C VDTBH #### [facility] [address] [place] [address] Dr. Reema Mireles MCH (RBC) [Entitic mass] 30.6 pg Normal 26.7-34.0 [facility] Comment on above: Performed By: #### C VDTBH #### [facility] [address] [place] [address] Dr. Reema Mireles MCHC (RBC) [Mass/Vol] 35.0 g/dL Normal 29.9-35.2 [facility] Comment on above: Performed By: #### C VDTBH #### [facility] [address] [place] [address] Dr. Reema Mireles MCV (RBC) [Entitic vol] 87.4 fL Normal 81.0-99.0 [facility] Comment on above: Performed By: #### C VDTBH #### [facility] [address] [place] [address] Dr. Reema Mireles MONO # 0.7 103/ul Normal 0.3-0.8 [facility] Comment on above: Performed By: #### C VDTBH #### [facility] [address] [place] [address] Dr. Reema Mireles Monocytes/100 WBC (Bld) 8.2 % Normal 1.7-12.0 [facility] Comment on above: Performed By: #### C VDTBH #### [facility] [address] [place] [address] Dr. Reema Mireles NEUT # 5.5 103/ul Normal 1.4-6.5 [facility] Comment on above: Performed By: #### C VDTB #### [facility] [address] [place] [address] Dr. Reema Mireles Neutrophils/100 WBC (Bld) 68.7 % Normal 43.0-75.0 [facility] Comment on above: Performed By: #### C VDTBH #### [facility] [address] [place] [address] Dr. Reema Mireles Platelet mean volume (Bld) [Entitic vol] 10.1 fL Normal 9.5-13.5 [facility] Comment on above: Performed By: #### C VDTBH #### [facility] [address] [place] [address] Dr. Reema Mireles PLT 404 103/ul Normal 150-450 [facility] Comment on above: Performed By: #### C VDTBH #### [facility] [address] [place] [address] Dr. Reema Mireles RBC 4.38 106/ul Normal 4.20-5.40 [facility] Comment on above: Performed By: #### C VDTBH #### [facility] [address] [place], [place] [address] Dr. Reema Mireles WBC 8.0 103/ul Normal 4.0-11.0 [facility] Comment on above: Performed By: #### C VDTB #### [facility] [id number] Reema Mireles [address] HEAD WO CONon [...] AURELIA CARLOS Date: 2022-04-13 16:29 Normal [facility] Discharge Instructionson Discharge Instructions [id number] #1.00CD:127 Normal [facility] ED Note-Physicianon 04-13-20 ED Note-Physician Basic Information Time Seen: Lata Hardy M.D. 04/12/2022 19:56 Chief Complaint Pt. presents to the ed with c/o headache and vertigo since thursday. Pt. was seen at [place] and started on prednisone. pt. stopped taking [...] The patient states she was seen at [facility] discharged home. She went to urgent [...] neurological deficit. She has been seen at [facility] and started on prednisone. Possible her [...] ADRYAN MARIE In 3 days 04/15/[address] [place] [id number] (1) Additional Instructions: Return to the [...] Diagnostic Results No qualifying data available. Normal [facility] Comment on above: Result Comment: Elec tronically Signed By: Antony Villa, Lata Baxter\.br\Date and Time Signed: 04/13/22 04:56 EDT ER URINE PROFILEon 2 Bilirubin Ql (U) Negative Normal NEGATIVE [facility] Comment on above: Performed By: #### P REGU, ERUR #### [facility] [address] [place] [address] Dr. Reema Mireles Clarity (U) CLEAR Normal CLEAR [facility] Comment on above: Performed By: #### P REGU, ERUR #### [facility] [address] [place] [address] Dr. Reema Mireles Color (U) LT. YELLOW Normal YELLOW [facility] Comment on above: Performed By: #### P REGU, ERUR #### [facility] [address] [place] [address] Dr. Reema ELIZALDE A micrscopic examination will be performed if indicated. Normal [facility] Comment on above: Performed By: #### P REGU, ERUR #### [facility] [address] [place] [address] Dr. Reema Mireles Glucose Ql (U) Negative Normal NEGATIVE [facility] Comment on above: Performed By: #### P REGU, ERUR #### [facility] [address] [place] [address] Dr. Reema Mireles Hemoglobin Ql (U) Negative Normal NEGATIVE [facility] Comment on above: Performed By: #### P REGU, ERUR #### [facility] [address] [place] [address] Dr. Reema Mireles Ketones Ql (U) Negative Normal NEGATIVE [facility] Comment on above: Performed By: #### P REGU, ERUR #### [facility] [address] [place] [address] Dr. Reema Mireles LEUKOCYTES Negative Normal NEGATIVE [facility] Comment on above: Performed By: #### P REGU, ERUR #### [facility] [address] [place] [address] Dr. Reema Mireles Nitrite Ql (U) Negative Normal NEGATIVE [facility] Comment on above: Performed By: #### P REGU, ERUR #### [facility] [address] [place] [address] Dr. Reema Mireles pH (U) 6.5 [pH] Normal 5-9 [facility] Comment on above: Performed By: #### P REGU, ERUR #### [facility] [address] [place] [address] Dr. Reema Mireles SPEC GRAVITY 1.005 Normal 1.005-<=1.025 [facility] Comment on above: Performed By: #### P REGU, ERUR #### [facility] [address] [place] [address] Dr. Reema Mireles UA PROTEIN Negative Normal NEGATIVE/ TRACE [facility] Comment on above: Performed By: #### P REGU, ERUR #### [facility] [address] [place] [address] Dr. Reema Mireles UR MICRO IND NOT INDICATED Normal [facility] Comment on above: Performed By: #### P REGU, ERUR #### [facility] [address] [place] [address] Dr. Reema Mireles Urobilinogen Qn (U) 0.2 {Renny'U}/dL Normal 0.2 - 1. 0 [facility] Comment on above: Performed By: #### P REGU, ERUR #### [facility] [address] [address] [address] Reema Mireles URon 04-13-2022 , QUAL Negative Normal NEGATIVE [facility] Comment on above: Performed By: #### P REGU, ERUR #### [facility] [address] [address] [address] Reema Mireles PROF CHEM 8 (BAS METB)on Anion gap [Moles/Vol] 14.0 mmol/L Normal [facility] Comment on above: Performed By: #### B MP, TSH #### [facility] [address] [address] [address] Reema Mireles Calcium [Mass/Vol] 9.2 mg/dL Normal 8.5-10.1 [facility] Comment on above: Performed By: #### B MP, TSH #### [facility] [address] [address] [address] Reema Mireles Chloride [Moles/Vol] 102 mmol/L Normal 98-107 [facility] Comment on above: Performed By: #### B MP, TSH #### [facility] [address] [address] [address] Reema Mireles CO2 [Moles/Vol] 26.3 mmol/L Normal 21.0-32.0 [facility] Comment on above: Performed By: #### B MP, TSH #### [facility] [address] [address] [address] Reema Mireles Creatinine [Mass/Vol] 0.65 mg/dL Normal 0.55-1.02 [facility] Comment on above: Performed By: #### B MP, TSH #### [facility] [address] [address] [address] Reema Mireles EGFR-AF CYPRIOT >60 Normal >=60 [facility] Comment on above: Performed By: #### B MP, TSH #### [facility] [address] [address] [address] Reema Mireles EGFR-NON AF CYPRIOT >60 Normal >=60 [facility] Comment on above: Performed By: #### B MP, TSH #### [facility] [address] [address] [address] Reema Mireles Glucose [Mass/Vol] 92 mg/dL Normal 74-106 [facility] Comment on above: Performed By: #### B MP, TSH #### [facility] [address] [address] [address] Reema Mireles Potassium [Moles/Vol] 3.3 mmol/L Critically low 3.5-5.1 [facility] Comment on above: Performed By: #### B MP, TSH #### [facility] [address] [address] [address] Reema Mireles Sodium [Moles/Vol] 139 mmol/L Normal 136-145 [facility] Comment on above: Performed By: #### B MP, TSH #### [facility] [address] [address] [address] Reema Mireles Urea nitrogen [Mass/Vol] 8.0 mg/dL Normal 7.0-18.0 [facility] Comment on above: Performed By: #### B MP, TSH #### [facility] [address] [address] [address] Reema Mireles Urea nitrogen/Creatinine [Mass ratio] 12.3 mg/mg Normal [facility] Comment on above: Performed By: #### B MP, TSH #### [facility] [address] [address] [address] Reema Mireles TSHon 04-13-2022 TSH 1.293 uIU/mL Normal 0.358-3.740 [facility] Comment on above: Performed By: #### B MP, TSH #### [facility] [address] [address] [address] Reema Mireles Consent for Treatmenton 03-28 Consent for Treatment [id number] Normal [facility] ED Clinical Summaryon 2021 ED Clinical Summary [place] [id number] ED Clinical Summary Person Information Name: JUANPABLO CHAPARRO [place] Age: 21 Years : 2000 Sex: Female Language: Northern Irish PCP: ADRYAN MARIE MD Marital Status: Single Phone: [phone] Visit Id: Visit Reason: Vertigo - recurrent; [...] 04/12/2022 21:07:38 04/12/2022 21:07:38 04/12/2022 21:07:38 ADDRESS: [address] [place] [id number] PHYS DOC NOTES: MEDICAL INFORMATION: Prescriptions Given: PATIENT EDUCATION INFORMATION: Instructions: General Headache Without Cause; Vertigo Follow up: With: Address: When: ADRYAN AMINJAILENE [address] [place], [place] [id number] [employer]. (1) In 3 days 04/15/2022 Comments: Return to the emergency room if her headache gets worse, vertigo becomes persistent or any new symptoms DIAGNOSIS: 1:Vertigo; 2:Headache Normal [facility] ED Patient Education Noteon 04-12-2022 [...] you feel dizzy. General instructions ? Take gusn-iis-wrlkloh and prescription medicines only as told by [...] 06/24/2006 Document Revised: 08/08/2019 Document Reviewed: 08/08/2019 [employer] Patient Education ? 2020 [employer] Neurology General Headache Without Cause A [...] with your condition: Managing pain ? Take tnga-tde-slkjopc and prescription medicines only as told by [...] of beer (more content not included)... Normal [facility] ED Patient Summaryon 022 ED Patient Summary [place] [id number] Patient Discharge Instructions Person Information Name: JUANPABLO CHAPARRO Age: 21 Years Arrival Date: 04/12/2022 19:22:40 Discharge Diagnosis: 1:Vertigo; 2:Headache Primary Care Physician: ADRYAN MARIE MD Provider Information Primary Provider: Lata Hardy M.D. [employer]ic:None The exam and treatment you received in the Emergency Department were for an urgent problem and are not intended as complete care. It is important that you follow up with a doctor, nurse practitioner, or physician?s ambulance assistant for ongoing care. If your symptoms [...] Follow-up Instructions: With: Address: When: ADRYAN MARIE [address] [place] [address] [employer] ([employer] In 3 days 04/15/2022 Comments: Return to [...] opioids can be used to help relieve [id number] pain and are often prescribed following a [...] addiction, tel (more content not included)... Normal [facility] CBC AUTO DIFFon 04-09-2022 BASO # 0.1 103/ul Normal 0.0-0.1 [facility] Comment on above: Performed By: #### B MP, TSH #### [facility] [address] [address] [address] Reema Mireles Basophils/100 WBC (Bld) 0.5 % Normal 0.2-2.0 [facility] Comment on above: Performed By: #### B MP, TSH #### [facility] [address] [place] [address] Dr. Reema Mireles EO # 0.1 103/ul Normal 0.0-0.7 [facility] Comment on above: Performed By: #### B MP, TSH #### [facility] [address] [place] [address] Dr. Reema Mireles Eosinophils/100 WBC (Bld) 1.0 % Normal 0.9-7.0 [facility] Comment on above: Performed By: #### B MP, TSH #### [facility] [address] [place] [address] Dr. Reema Mireles Erythrocyte distribution width (RBC) [Ratio] 11.7 % Normal 11.0-15.0 [facility] Comment on above: Performed By: #### B MP, TSH #### [facility] [address] [place] [address] Dr. Reema Mireles Hematocrit (Bld) [Volume fraction] 37.2 % Normal 36.0-48.0 [facility] Comment on above: Performed By: #### B MP, TSH #### [facility] [address] [place] [address] Dr. Reema Mireles Hemoglobin (Bld) [Mass/Vol] 12.8 g/dL Normal 12.0-16.0 [facility] Comment on above: Performed By: #### B MP, TSH #### [facility] [address] [place] [address] Dr. Reema Mireles IG # 0.02 10e3/ul Normal 0.00-0.03 [facility] Comment on above: Performed By: #### B MP, TSH #### [facility] [address] [place] [address] Dr. Reema Mireles IG % 0.2 % Normal 0.0-0.5 [facility] Comment on above: Performed By: #### B MP, TSH #### [facility] [address] [place] [address] Dr. Reema Mireles LYMPH # 1.8 103/ul Normal 1.2-3.8 [facility] Comment on above: Performed By: #### B MP, TSH #### [facility] [address] [place] [address] Dr. Reema Mireles Lymphocytes/100 WBC (Bld) 19.0 % Critically low 20.5-60.0 [facility] Comment on above: Performed By: #### B MP, TSH #### [facility] [address] [place] [address] Dr. Reema Mireles MANUAL DIFF REQ NO Normal [facility] Comment on above: Performed By: #### B MP, TSH #### [facility] [address] [place] [address] Dr. Reema Mireles MCH (RBC) [Entitic mass] 30.4 pg Normal 26.7-34.0 [facility] Comment on above: Performed By: #### B MP, TSH #### [facility] [address] [place] [address] Dr. Reema Mireles MCHC (RBC) [Mass/Vol] 34.4 g/dL Normal 29.9-35.2 [facility] Comment on above: Performed By: #### B MP, TSH #### [facility] [address] [place] [address] Dr. Reema Mireles MCV (RBC) [Entitic vol] 88.4 fL Normal 81.0-99.0 [facility] Comment on above: Performed By: #### B MP, TSH #### [facility] [address] [place] [address] Dr. Reema Mireles MONO # 0.7 103/ul Normal 0.3-0.8 [facility] Comment on above: Performed By: #### B MP, TSH #### [facility] [address] [place] [address] Dr. Reema Mireles Monocytes/100 WBC (Bld) 6.8 % Normal 1.7-12.0 [facility] Comment on above: Performed By: #### B MP, TSH #### [facility] [address] [place] [address] Dr. Reema Mireles NEUT # 7.0 103/ul Critically high 1.4-6.5 [facility] Comment on above: Performed By: #### B MP, TSH #### [facility] [address] [address] [address] Reema Mireles Neutrophils/100 WBC (Bld) 72.5 % Normal 43.0-75.0 [facility] Comment on above: Performed By: #### B MP, TSH #### [facility] [address] [address] [address] Reema Mireles Platelet mean volume (Bld) [Entitic vol] 10.3 fL Normal 9.5-13.5 [facility] Comment on above: Performed By: #### B MP, TSH #### [facility] [address] [address] [address] Reema Mireles PLT 358 103/ul Normal 150-450 [facility] Comment on above: Performed By: #### B GURPREET, TSH #### [facility] [address] [address] [address] Reema Mireles RBC 4.21 106/ul Normal 4.20-5.40 [facility] Comment on above: Performed By: #### B MP, TSH #### [facility] [address] [address] [address] Reema Mireles WBC 9.7 103/ul Normal 4.0-11.0 [facility] Comment on above: Performed By: #### B MP, TSH #### [facility] [address] [address] [address] Reema Mireles CULTURE BLOODon 04-09-2022 Microscopic examination of blood, culture Culture Observations: NO GROWTH AT 5 DAYS. Normal [facility] Comment on above: Performed By: #### B MP, TSH #### [facility] [address] [address] [address] Reema Mirelse ER URINE PROFILEon 2 Bilirubin Ql (U) Negative Normal NEGATIVE [facility] Comment on above: Performed By: #### B MP, TSH #### [facility] [address] [address] [address] Reema Mireles Clarity (U) CLEAR Normal CLEAR [facility] Comment on above: Performed By: #### B MP, TSH #### [facility] [address] [place] [address] Dr. Reema Mireles Color (U) LT. YELLOW Normal YELLOW [facility] Comment on above: Performed By: #### B MP, TSH #### [facility] [address] [place] [address] Dr. Reema RICHARDSONAHJohana A micrscopic examination will be performed if indicated. Normal [facility] Comment on above: Performed By: #### B MP, TSH #### [facility] [address] [place] [address] Dr. Reema Mireles Glucose Ql (U) Negative Normal NEGATIVE [facility] Comment on above: Performed By: #### B MP, TSH #### [facility] [address] [place] [address] Dr. Reema Mireles Hemoglobin Ql (U) TRACE-INTACT Abnormal NEGATIVE [facility] Comment on above: Performed By: #### B MP, TSH #### [facility] [address] [place] [address] Dr. Reema Mireles Ketones Ql (U) Negative Normal NEGATIVE [facility] Comment on above: Performed By: #### B MP, TSH #### [facility] [address] [place] [address] Dr. Reema Mireles LEUKOCYTES Negative Normal NEGATIVE [facility] Comment on above: Performed By: #### B MP, TSH #### [facility] [address] [place] [address] Dr. Reema Mireles Nitrite Ql (U) Negative Normal NEGATIVE [facility] Comment on above: Performed By: #### B MP, TSH #### [facility] [address] [place] [address] Dr. Reema Mireles pH (U) 5.5 [pH] Normal 5-9 [facility] Comment on above: Performed By: #### B MP, TSH #### [facility] [address] [place] [address] Dr. Reema Mireles SPEC GRAVITY <=1.005 Abnormal 1.005-<=1.025 [facility] Comment on above: Performed By: #### B MP, TSH #### [facility] [address] [address] [address] Reema Mireles UA PROTEIN Negative Normal NEGATIVE/ TRACE [facility] Comment on above: Performed By: #### B MP, TSH #### [facility] [address] [address] [address] Reema Mireles UR MICRO IND INDICATED Normal [facility] Comment on above: Performed By: #### B MP, TSH #### [facility] [address] [place] [address] Dr. Reema Mireles Urobilinogen Qn (U) 0.2 {Renny'U}/dL Normal 0.2 - 1. 0 [facility] Comment on above: Performed By: #### B MP, TSH #### [facility] [address] [place] [address] Dr. Reema Mireles LACTATE/LACTIC ACIDon 2021 Lactate [Moles/Vol] 2.2 mmol/L Critically high 0.4-1.9 [facility] Comment on above: Performed By: #### B MP, TSH #### [facility] [address] [place] [address] Dr. Reema Mireles URon 04-09-2022 , QUAL Negative Normal NEGATIVE [facility] Comment on above: Performed By: #### B MP, TSH #### [facility] [address] [place] [address] Dr. Reema Mireles PROF 14(COMP METB)on 022 Albumin [Mass/Vol] 4.5 g/dL Normal 3.4-5.0 [facility] Comment on above: Performed By: #### C MP #### [facility] [address] [place] [address] Dr. Reema Mireles Albumin/Globulin [Mass ratio] 1.3 {ratio} Normal [facility] Comment on above: Performed By: #### C MP #### [facility] [address] [place] [address] Dr. Reema Mireles ALP [Catalytic activity/Vol] 83 U/L Normal 46-116 [facility] Comment on above: Performed By: #### C MP #### [facility] [address] [address] [address] Reema Mireles ALT [Catalytic activity/Vol] 26 U/L Normal 14-59 [facility] Comment on above: Performed By: #### C MP #### [facility] [address] [address] [address] Reema Mireles Anion gap [Moles/Vol] 14.9 mmol/L Normal [facility] Comment on above: Performed By: #### C MP #### [facility] [address] [address] [address] Reema Mireles AST [Catalytic activity/Vol] 12 U/L Critically low 15-37 [facility] Comment on above: Performed By: #### C MP #### [facility] [address] [address] [address] Reema Mireles Bilirubin [Mass/Vol] 0.3 mg/dL Normal 0.2-1.0 [facility] Comment on above: Performed By: #### C MP #### [facility] [address] [address] [address] Reema Mireles Calcium [Mass/Vol] 9.6 mg/dL Normal 8.5-10.1 [facility] Comment on above: Performed By: #### C MP #### [facility] [address] [address] [address] Reema Mireles Chloride [Moles/Vol] 103 mmol/L Normal 98-107 [facility] Comment on above: Performed By: #### C MP #### [facility] [address] [address] [address] Reema Mireles CO2 [Moles/Vol] 24.4 mmol/L Normal 21.0-32.0 [facility] Comment on above: Performed By: #### C MP #### [facility] [address] [address] [address] Reema Mireles Creatinine [Mass/Vol] 0.87 mg/dL Normal 0.55-1.02 [facility] Comment on above: Performed By: #### C MP #### [facility] [address] [address] [address] Reema Mireles EGFR-AF CYPRIOT >60 Normal >=60 [facility] Comment on above: Performed By: #### C MP #### [facility] [address] [address] [address] Reema Mireles EGFR-NON AF CYPRIOT >60 Normal >=60 [facility] Comment on above: Performed By: #### C MP #### [facility] [address] [address] [address] Reema Mireles Globulin (S) [Mass/Vol] 3.5 g/dL Normal [facility] Comment on above: Performed By: #### C MP #### [facility] [address] [place] [address] Dr. Reema Mireles Glucose [Mass/Vol] 109 mg/dL Critically high 74-106 [facility] Comment on above: Performed By: #### C MP #### [facility] [address] [address] [address] Reema Mireles Potassium [Moles/Vol] 3.3 mmol/L Critically low 3.5-5.1 [facility] Comment on above: Performed By: #### C MP #### [facility] [address] [place] [address] Dr. Reema Mireles Protein [Mass/Vol] 8.0 g/dL Normal 6.4-8.2 [facility] Comment on above: Performed By: #### C MP #### [facility] [address] [address] [address] Reema Mireles Sodium [Moles/Vol] 139 mmol/L Normal 136-145 [facility] Comment on above: Performed By: #### C MP #### [facility] [address] [address] [address] Reema Mireles Urea nitrogen [Mass/Vol] 9.0 mg/dL Normal 7.0-18.0 [facility] Comment on above: Performed By: #### C MP #### [facility] [address] [address] [address] Reema Mireles Urea nitrogen/Creatinine [Mass ratio] 10.3 mg/mg Normal [facility] Comment on above: Performed By: #### C MP #### [facility] [address] [place] [address] Dr. Reema Mireles URINE MICROSCOPIC ONLYon BACTERIA NONE SEEN Normal NONE SEEN [facility] Comment on above: Performed By: #### B MP, TSH #### [facility] [address] [place] [address] Dr. Reema Mireles Bacteria identified Cx Nom (U) NOT INDICATED Normal [facility] Comment on above: Performed By: #### B MP, TSH #### [facility] [address] [place] [address] Dr. Reema Mireles CAST NONE SEEN Normal NONE SEEN [facility] Comment on above: Performed By: #### B MP, TSH #### [facility] [address] [place] [address] Dr. Reema Mireles Crystals LM Nom (Urine sed) NONE SEEN Normal NONE SEEN [facility] Comment on above: Performed By: #### B MP, TSH #### [facility] [address] [place] [address] Dr. Reema Mireles Epithelial cells LM Ql (Urine sed) RARE Normal NONE SEEN /RARE [facility] Comment on above: Performed By: #### B MP, TSH #### [facility] [address] [place] [address] Dr. Reema Mireles MUCOUS NONE SEEN Normal NONE SEEN [facility] Comment on above: Performed By: #### B MP, TSH #### [facility] [address] [place] [address] Dr. Reema Mireles RBC 0-2 Normal 0-2 [facility] Comment on above: Performed By: #### B MP, TSH #### [facility] [address] [place] [address] Dr. Reema Mireles WBC NONE SEEN Normal NONE SEEN [facility] Comment on above: Performed By: #### B MP, TSH #### [facility] [address] [place] [address] Dr. Reema Mireles CBC AUTO DIFFon 10-25-2021 BASO # 0.0 103/ul Normal 0.0-0.1 [facility] Comment on above: Performed By: #### C BC #### [facility] [address] [place] [address] Dr. Reema Mireles Basophils/100 WBC (Bld) 0.6 % Normal 0.2-2.0 [facility] Comment on above: Performed By: #### C BC #### [facility] [address] [place] [address] Dr. Reema Mireles EO # 0.1 103/ul Normal 0.0-0.7 [facility] Comment on above: Performed By: #### C BC #### [facility] [address] [place] [address] Dr. Reema Mireles Eosinophils/100 WBC (Bld) 1.8 % Normal 0.9-7.0 [facility] Comment on above: Performed By: #### C BC #### [facility] [address] [place] [address] Dr. Reema Mireles Erythrocyte distribution width (RBC) [Ratio] 11.9 % Normal 11.0-15.0 [facility] Comment on above: Performed By: #### C BC #### [facility] [address] [place] [address] Dr. Reema Mireles Hematocrit (Bld) [Volume fraction] 38.1 % Normal 36.0-48.0 [facility] Comment on above: Performed By: #### C BC #### [facility] [address] [place] [address] Dr. Reema Mireles Hemoglobin (Bld) [Mass/Vol] 13.1 g/dL Normal 12.0-16.0 [facility] Comment on above: Performed By: #### C BC #### [facility] [address] [place] [address] Dr. Reema Mireles IG # 0.01 10e3/ul Normal 0.00-0.03 [facility] Comment on above: Performed By: #### C BC #### [facility] [address] [place] [address] Dr. Reema Mireles IG % 0.1 % Normal 0.0-0.5 [facility] Comment on above: Performed By: #### C BC #### [facility] [address] [place] [address] Dr. Reema Mireles LYMPH # 1.9 103/ul Normal 1.2-3.8 [facility] Comment on above: Performed By: #### C BC #### [facility] [address] [place] [address] Dr. Reema Mireles Lymphocytes/100 WBC (Bld) 27.8 % Normal 20.5-60.0 [facility] Comment on above: Performed By: #### C BC #### [facility] [address] [place] [address] Dr. Reema Mireles MANUAL DIFF REQ NO Normal [facility] Comment on above: Performed By: #### C BC #### [facility] [address] [place] [address] Dr. Reema Mireles MCH (RBC) [Entitic mass] 30.5 pg Normal 26.7-34.0 [facility] Comment on above: Performed By: #### C BC #### [facility] [address] [place] [address] Dr. Reema Mireles MCHC (RBC) [Mass/Vol] 34.4 g/dL Normal 29.9-35.2 [facility] Comment on above: Performed By: #### C BC #### [facility] [address] [place] [address] Dr. Reema Mireles MCV (RBC) [Entitic vol] 88.8 fL Normal 81.0-99.0 [facility] Comment on above: Performed By: #### C BC #### [facility] [address] [place] [address] Dr. Reema Mireles MONO # 0.8 103/ul Normal 0.3-0.8 [facility] Comment on above: Performed By: #### C BC #### [facility] [address] [place] [address] Dr. Reema Mireles Monocytes/100 WBC (Bld) 11.2 % Normal 1.7-12.0 [facility] Comment on above: Performed By: #### C BC #### [facility] [address] [place] [address] Dr. Reema Mireles NEUT # 4.0 103/ul Normal 1.4-6.5 [facility] Comment on above: Performed By: #### C BC #### [facility] [address] [place] [address] Dr. Reema Mireles Neutrophils/100 WBC (Bld) 58.5 % Normal 43.0-75.0 [facility] Comment on above: Performed By: #### C BC #### [facility] [address] [place] [address] Dr. Reema Mireles Platelet mean volume (Bld) [Entitic vol] 10.0 fL Normal 9.5-13.5 [facility] Comment on above: Performed By: #### C BC #### [facility] [address] [place] [address] Dr. Reema Mireles PLT 361 103/ul Normal 150-450 [facility] Comment on above: Performed By: #### C BC #### [facility] [address] [place] [address] Dr. Reema Mireles RBC 4.29 106/ul Normal 4.20-5.40 [facility] Comment on above: Performed By: #### C BC #### [facility] [address] [place] [address] Dr. Reema Mireles WBC 6.8 103/ul Normal 4.0-11.0 [facility] Comment on above: Performed By: #### C BC #### [facility] [address] [place] [address] Dr. Reema Mireles PREG QUANT HCGon 10-25-2021 HCG QUANT 1 mIU/mL Normal [facility] Comment on above: Performed By: #### P REGQNT #### [facility] [address] [place] [address] Dr. Reema Mireles HCG RANGE SEE BELOW Normal [facility] Comment on above: Result Comment: 5-50 0-1 WEEK 40-300 1-2 WEEKS 100-1,000 2-3 WEEKS 500-6,000 3-4 WEEKS 5,000-200,000 1-2 MONTHS 10,000-100,000 2-3 MONTHS 3,000-50,000 2ND TRIMESTER 1,000-50,000 3RD TRIMESTER Performed By: #### P REGQNT #### [facility] [address] [place], [place] [address] Dr. Reema Mireles Covid-19 PCR ([facility]on 09-29 SARS-CoV-2 (COVID-19) RNA FRANKIE+probe Ql (Unsp spec) Not detected Normal NOT DETECTED [facility] Comment on above: Result Comment: This test is not yet approved or cleared by the [place] FDA. When there are no FDA-approved or cleared tests available, and other criteria are met, FDA can make tests available under an emergency access mechanism called an Emergency Use Authorization (EUA). The EUA for this test is supported by the [place] of Health and Human Service's (HHS's) declaration [...] SARS-CoV-2. Performed By: #### C VDTB #### [facility] [address] [place], [place] [address] Dr. Reema Mireles Vital Signs Date Time Vital Sign Value Performing Clinician Facility 11-12-2023 14:15-0500 Body weight 108.86 kg [facility] Work Phone: [facility] 11-12-2023 14:15-0500 Diastolic blood pressure 72 mm[Hg] [facility] Work Phone: [facility] 11-12-2023 14:15-0500 Systolic blood pressure 122 mm[Hg] Devan Tello DO Work Phone: [facility] 04-12-2022 21:04-0400 Diastolic blood pressure 84 mm[Hg] [facility] 04-12-2022 21:04-0400 Heart rate 82 /min [facility] 04-12-2022 21:04-0400 Respiratory rate 16 /min [facility] 04-12-2022 21:04-0400 SaO2% (BldA) [Mass fraction] 98 % [facility] 04-12-2022 21:04-0400 Systolic blood pressure 120 mm[Hg] [facility] 04-12-2022 20:32-0400 gluc 80 mg/dL [facility] Comment on above: Result Comment: not taken due to pt refu jimmie of any injection 04-12-2022 20:32-[address] [facility] 04-12-2022 19:25-0400 Body temperature 99.32 [degF] [facility] 04-12-2022 19:25-0400 Diastolic blood pressure 84 mm[Hg] [facility] 04-12-2022 19:25-0400 Heart rate 90 /min [facility] 04-12-2022 19:25-0400 Respiratory rate 18 /min [facility] 04-12-2022 19:25-0400 SaO2% (BldA) [Mass fraction] 98 % [facility] 04-12-2022 19:25-0400 Systolic blood pressure 118 mm[Hg] [facility] 04-09-2022 12:20-0400 Body height 165.1 cm Deonna Back Other [employer] Other 04-09-2022 12:20-0400 Body mass index (BMI) [Ratio] 35.61 kg/m2 Deonna Nazanin Other [employer] Other 04-09-2022 12:20-0400 Body temperature 98.4 [degF] Deonna Nazanin Other [employer] Other 04-09-2022 12:20-0400 Body weight 97.07 kg Deonna Nazanin Other [employer] Other 04-09-2022 12:20-0400 Diastolic blood pressure 83 mm[Hg] Deonna Nazanin Other [employer] Other 04-09-2022 12:20-0400 Respiratory rate 18 /min Deonna Nazanin Other [employer] Other 04-09-2022 12:20-0400 SaO2% (BldA) [Mass fraction] 99 % Deonna Nazanin Other [employer] Other 04-09-2022 12:20-0400 Systolic blood pressure 135 mm[Hg] Deonna Nazanin Other [employer] Other 04-02-2022 19:00-0400 Body height 165.1 cm Deonna Nazanin Other [employer] Other 04-02-2022 19:00-0400 Body mass index (BMI) [Ratio] 35.71 kg/m2 Deonna Nazanin Other [employer] Other 04-02-2022 19:00-0400 Body temperature 98.1 [degF] Deonna Nazanin Other [employer] Other 04-02-2022 19:00-0400 Body weight 97.34 kg Deonna Back Other [employer] Other 04-02-2022 19:00-0400 Diastolic blood pressure 83 mm[Hg] Deonna Cavanaughmond Other [employer] Other 04-02-2022 19:00-0400 Respiratory rate 18 /min Deonna Cavanaughmond Other [employer] Other 04-02-2022 19:00-0400 SaO2% (BldA) [Mass fraction] 100 % Deonna Cavanaughmond Other [employer] Other 04-02-2022 19:00-0400 Systolic blood pressure 134 mm[Hg] Deonna Cavanaughmond Other [employer] Other Encounters Encounter Date Encounter Type Care Provider Facility Start: 08-29-2024 End: 08-29-2024 Bamboo flowsheet Devan Omer DO Work Phone: [facility] Start: 08-29-2024 End: 08-29-2024 Bamboo flowsheet Devan Omer DO Work Phone: [facility] Start: 06-13-2024 End: 06-13-2024 ambulatory DEVAN OMER Not Available Start: 05-12-2024 End: 05-12-2024 ambulatory DEVAN OMER [...] DERIC Not Available Start: 11-12-2023 End: 11-12-2023 Office outpatient visit 15 minutes Devan Omer DO Work Phone: [facility] Comment on above: Third trimester preg padmini; Excessive growth affecting management of in third trimester, single or unspecified fetus Start: 11-12-2023 End: 11-12-2023 ambulatory DEVNA OMER Not Available Start: 11-03-2023 Clinisync Result Encounter Cydney Leos CHIKA Work Phone: [facility] Unsolicited Start: 11-03-2023 Clinisync Result Encounter Cydney Leos CHIKA Work Phone: [facility] Unsolicited Start: 10-15-2023 End: 10-15-2023 ambulatory CYDNEY DERIC Not Available Start: 09-17-2023 End: 09-17-2023 ambulatory DEVAN OMER Not Available Start: 08-13-2023 End: 08-13-2023 ambulatory CYDNEY DERIC Not Available Start: 09-14-2022 End: 09-14-2022 ambulatory [...] 04-12-2022 Emergency department patient visit Lata Hardy [facility] Start: 04-10-2022 End: 04-10-2022 ambulatory Deonna Back Other [employer] Other Start: 04-10-2022 Telephone encounter Deonna Back [facility] Start: 04-09-2022 End: 04-09-2022 ambulatory Deonna Back Other [employer] Other Start: 04-09-2022 Office outpatient vi sit 15 minutes Deonna Back [facility] [facility] Start: 04-09-2022 End: 04-09-[address] LUIS ANTONIO SUTTON Facility:[facility] Start: 04-02-2022 (URG) Urgent Care Visit Deonna Silva d [facility] Start: 04-02-2022 End: 04-02-2022 ambulatory Deonna Back Other [employer] Other Start: 10-25-2021 End: 10-25-[address] ADRYAN MARIE Facility:[facility] Start: 10-24-2021 Encounter for preprocedural laboratory examination DR DEVAN TELLO [facility] Start: 10-22-2021 End: 10-23-[address] ADRYAN MARIE Facility:[facility] Start: 10-22-2021 End: 10-23-2021 Encounter for preprocedural laboratory examination DR ADRYAN MARIE Facility:[facility] Start: 10-19-2021 Encounter for other preprocedural examination DR DEVAN TELLO [facility] Start: 10-17-2021 End: 10-18-[address] ADRYAN [...] Treatment Date Care Activity Detail Author Start: 08-29-2024 End: 08-29-2024 Patient encounter procedure 08/29/2024 10:30 AM EST Office Visit [facility] [address] [place] [address] Devan Tello, DO [address] [place], [place] [id number] Arrived [facility] Comment on above: Arrived Start: 11-26-2023 End: 11-26-2023 Patient encounter procedure 11/26/2023 11:00 AM EST Routine [facility] [address] [place] [address] Cydney Leos PA [address] [facility] [address] [place], [place] [id number] [facility] Start: 11-26-2023 End: 11-26-2023 Professional / ancillary services management 11/26/2023 10:30 AM EST Ancillary Procedure [facility] [address] [place] [address] [facility] Start: [...] AM EST Routine [facility] [address] [place] [address] Devan Tello, DO [address] [place] [address] [facility] Payers Date Payer Category Payer Medicaid [place] [id number] 2023 Private Health Insurance [facility] [id number] 2023 Unknown [employer] [place] [employer] [place] [id number] 2023-Present [address] [place] [address] [id number] 2023 Medicaid [id number] 2001 Unknown [id number] 2.16.840.1.327888.3.579.2. 593 2001 Unknown [id number] 2.16.840.1.116905.3.579.2. 593 2001 Unknown [id number] 2.16.840.1.281434.3.579.2. 593 2001 Unknown [id number] 2.16.840.1.266894.3.579.2. 593 2001 Unknown [id number] 2.16.840.1.632452.3.579.2. 593 2001 Unknown [id number] 2.16.840.1.251699.3.579.2. 593 2001 Unknown [id number] 2.16.840.1.574973.3.579.2. 593 2001 Unknown [id number] 2.16.840.1.223303.3.579.2. 593 2001 Unknown [id number] 2.16.840.1.450565.3.579.2. 593 2001 Unknown [id number] 2.16.840.1.211901.3.579.2. 593 2001 Unknown [id number] 2.16.840.1.042337.3.579.2. 593 2001 Unknown [id number] 2.16.840.1.982776.3.579.2. 1259 2001 Unknown [id number] 2.16.840.1.318320.3.579.2. 1259 2001 Unknown [id number] 2.16.840.1.095256.3.579.2. 1259 2001 Unknown [id number] 2.16.840.1.594003.3.579.2. 1259 2001 Unknown [id number] 2.16.840.1.884488.3.579.2. 1259 2001 Unknown [id number] 2.16.840.1.216366.3.579.2. 1259 2001 Unknown [id number] 2.16.840.1.549383.3.579.2. 1259 2001 Unknown [id number] 2.16.840.1.833217.3.579.2. 9 2001 Unknown [id number] 2.16.840.1.746726.3.579.2. 9 2001 Unknown [id number] 2.16.840.1.985684.3.579.2. 9 2001 Unknown [id number] 2.16.840.1.056331.3.579.2. 9 2001 Unknown [id number] 2.16.840.1.057845.3.579.2. 9 2001 Unknown [id number] 2.16.840.1.723546.3.579.2. 9 2001 Unknown [id number] 2.16.840.1.624209.3.579.2. 9 2001 Unknown [id number] 2.16.840.1.858767.3.579.2. 1259 1959 [facility] [id number] 2.16.840.1.121667.19 Social History Date Type Detail Facility Unknown if ever smoked [facility] [employer] Other Start: 05-12-2024 Sex Assigned At N [facility] [employer] Other Tobacco smoking status No Smoking Status Entered [facility] Start: 06-20-2023 Tobacco smoking status NEIS Tobacco smoking consumption unknown [facility] Start: 10-15-2023 End: 05-12-2024 Alcohol intake Lifetime non-drinker (finding) [facility] Start: 06-20-2023 Tobacco Comment Current smoker (frequency unknown) [facility] Start: 05-06-2023 [facility] Start: 2001 Sex Assigned At Not on file [facility] Start: 03-08-2024 Tobacco smoking status NEIS Ex-smoker [facility] History of tobacco use Current smoker [facility] Start: 05-12-2024 History of Social function [facility] Goals Date Patient Goal Desired Activity /State Personal health goal Functional Status Date Assessment Result Facility 04-12-2022 Functional Status N/A [facility] History of Present illness Narrative 11-12-2023 [...] Devan Tello DO documented in this encounter [facility] Discharge instructions 04-12-2022 Note Date & Type [...] help with your condition: Managing pain Take jsst-ymn-dijrrxj and prescription medicines only as told by [...] 09/14/2006 Document Revised: 04/04/2019 Document Reviewed: 04/04/2019 [employer] Patient Education 2020 [employer]. 04/12/2022 21:07:38 Vertigo [...] if you feel dizzy. General instructions Take vrdf-vay-sjfxnxe and prescription medicines only as told by [...] 06/24/2006 Document Revised: 08/08/2019 Document Reviewed: 08/08/2019 [employer] Patient Education 2020 [employer]. Follow Up Care 04/12/2022 19:25:17 With:ADRYAN MRAIE Address: [address] [place], [place] [id number] [facility] (1) When:04/15/2022 20:55:24 Comments:Return to the emergency room if her headache gets worse, vertigo becomes persistent or any new symptoms [facility] Evaluation note 04-09-2022 Note Date [...] She was prescribed Zofran with no improvement. [employer] Other Evaluation note 04-02-2022 Note Date & [...] 3 days. No swimming for a week [employer] Other Clinical Note 10-25-2021 Note Date & Type Note Facility 10-25-2021 Note OPERATIVE NOTE PROCEDURE: Diagnostic laparoscopy. PREOPERATIVE DIAGNOSIS: Pelvic pain, dyspareunia dysmenorrhea. POSTOPERATIVE DIAGNOSIS: Pelvic pain, dyspareunia dysmenorrhea. ANESTHESIA: General. SURGEON: Devan Tello D.O. AERIAL SURVEY TECHNICIAN: JAE Worley URINE OUTPUT: Yellow and clear. [...] taken to Recovery Room in stable condition. [facility] Signed and Approved by: DR DEVAN TELLO . 11/01/2021 17:31:00 [facility] Evaluation + Plan note Note Date & Type Note Facility Evaluation + Plan note No data available for this section [facility] Evaluation note Note Date & Type Note Facility Evaluation note No Information [facility] [employer] Other Evaluation note Note Date & Type [...] endometriosis Hospitalization History RSV as a baby [facility] [employer] Other Progress note Note Date & Type Note Facility Progress note No data available for this section [facility] Summary Purpose Family History No Family History Records FoundNo Family History Records FoundNo Family History Records Found Advance Directives No Advanced Directives Records FoundNo Advanced Directives Records FoundNo Advanced Directives Records Found Additional Source Comments REASON FOR VISIT (unrecogniz ed section and content) Reason Comments Routine Visit Care Team (unrecognized sect ion and content) Financial Engineer Relationship Specialty Start Date End Date Adryan Marie MD [address] [place] [address] PCP - General Family Medicine 06/19/23 Financial Engineer Relationship Specialty Start Date End Date Adryan Marie MD [address] [place] [address] PCP - General [facility] 06/19/23 Financial Engineer Relationship Specialty Start Date End Date Adryan Marie MD [address] [address] PCP - General Family [facility] 06/19/23 INFORMATION SOURCE (unrecogn ized section and content) DATE CREATED AUTHOR 04/26/2022 [facility] DATE CREATED AUTHOR AUTHOR'S ORGANIZ ATION 09/19/2022 Uzma [place] [facility] DATE CREATED AUTHOR AUTHOR'S ORGANIZ ATION 06/15/2024 [facility] [employer] EPIC FOR RECORDS PERTAINING TO PATIENTS [...] BE BASED ON THE PRIMARY CLINICAL RECORDS. [facility] [employer] [facility]. provides no warranty or guarantee of the accuracy or completeness of information in this document.
== END 2024-08-29 20:39 | disposition home or self-care (01) ==
LOC: LAB 20:38
PROVIDERS: PCP Family Medicine; Visit Provider Obstetrics & Gynecology
DX: Z01.419 Encounter for gynecological examination (general) (routine) without abnormal findings (principal)
CPT/HCPCS: 88175

== ENCOUNTER 2025-01-30 09:21 | Outpatient (OUT) | payer OTHER, SELFPAY ==
[2025-01-30 10:00] LABS: BOX Test Reference Lab UNITY; BOX Test Sent Out UNITY BOX
[2025-01-30 10:27] LABS: Basophils Percent Auto 0.3 % (0.2-2.0); Eosinophils Absolute Auto 0.1 10^3/uL (0.0-0.7); Hematocrit 36.6 % (36.0-48.0); Hemoglobin 12.8 g/dL (12.0-16.0); Immature Granulocytes Abs Auto 0.01 10^3/uL (0.00-0.03); Immature Granulocytes Pct Auto 0.1 % (0.0-0.5); Lymphocytes Absolute Auto 1.4 10^3/uL (1.2-3.8); Lymphocytes Percent Auto 19.6 % (20.5-60.0); Mean Corpuscular Hemoglobin 30.4 pg (26.7-34.0); Mean Corpuscular Volume 86.9 fL (81.0-99.0); Mean Platelet Volume 10.8 fL (9.5-13.5); Monocytes Absolute Auto 0.5 10^3/uL (0.3-0.8); Monocytes Percent Auto 6.4 % (1.7-12.0); Neutrophils Absolute Auto 5.1 10^3/uL (1.4-6.5); Neutrophils Percent Auto 72.6 % (43.0-75.0); Platelet Count 345 10^3/uL (150-450); Red Blood Count 4.21 10^6/uL (4.20-5.40); Red Cell Distribution Width 12.7 % (11.0-15.0)
[2025-01-30 10:42] LABS: Amphetamine Screen Urine NEGATIVE (NEGATIVE); Barbiturates Screen Urine NEGATIVE (NEGATIVE); Benzodiazepines Screen Urine NEGATIVE (NEGATIVE); Buprenorphine Screen Urine NEGATIVE (NEGATIVE); Cannabinoid Screen Urine NEGATIVE (NEGATIVE); Cocaine Screen Urine NEGATIVE (NEGATIVE); Methadone Screen Urine NEGATIVE (NEGATIVE); Methamphetamines Screen Urine NEGATIVE (NEGATIVE); Opiate Screen Urine NEGATIVE (NEGATIVE); Oxycodone Screen Urine NEGATIVE (NEGATIVE); Phencyclidine Screen Urine NEGATIVE (NEGATIVE); Tricyclic Antidepressant Urine NEGATIVE (NEGATIVE)
[2025-01-30 11:03] LABS: Estimated Average Glucose 108 mg/dL; Glycohemoglobin A1C 5.4 % (4.5-6.2)
[2025-01-31 05:07] LABS: HIV Ab/p24 Ag Screen Non Reactive (Non Reactive)
[2025-01-31 06:12] LABS: HBsAg Screen Negative (Negative); HCV Ab Non Reactive (Non Reactive)
[2025-01-31 07:07] LABS: Rubella Antibodies, IgG 4.92 index (Immune >0.99)
[2025-01-31 11:13] LABS: Rapid Plasma Reagin, Quant Non Reactive titer (NonRea<1:1)
== END 2025-01-30 09:22 | disposition home or self-care (01) ==
LOC: LAB 09:22
PROVIDERS: PCP Family Medicine; Visit Provider Obstetrics & Gynecology
DX: Z34.01 Encounter for supervision of normal first pregnancy, first trimester (principal); Z36.0 Encounter for antenatal screening for chromosomal anomalies; N92.6 Irregular menstruation, unspecified
CPT/HCPCS: 36415; 80307; 83036; 85025; 86592; 86762; 86803; 86850; 86900; 86901; 87086; 87340; 87389

== ENCOUNTER 2025-02-07 16:22 | Emergency (ER) | payer OTHER, SELFPAY ==
[2025-02-07 16:27] VITALS: BP 136/83; PULSE 106; TEMP 37.3; O2SAT 98; BMI 30.8
[2025-02-07 17:03] LABS: Basophils Percent Auto 0.4 % (0.2-2.0); Eosinophils Absolute Auto 0.1 10^3/uL (0.0-0.7); Eosinophils Percent Auto 0.9 % (0.9-7.0); Hematocrit 35.8 % (36.0-48.0); Hemoglobin 12.6 g/dL (12.0-16.0); Immature Granulocytes Abs Auto 0.01 10^3/uL (0.00-0.03); Immature Granulocytes Pct Auto 0.1 % (0.0-0.5); Lymphocytes Absolute Auto 1.7 10^3/uL (1.2-3.8); Lymphocytes Percent Auto 23.4 % (20.5-60.0); Mean Corpuscular HGB Conc 35.2 g/dL (29.9-35.2); Mean Platelet Volume 10.6 fL (9.5-13.5); Monocytes Absolute Auto 0.6 10^3/uL (0.3-0.8); Monocytes Percent Auto 7.9 % (1.7-12.0); Neutrophils Percent Auto 67.3 % (43.0-75.0); Platelet Count 317 10^3/uL (150-450); Red Blood Count 4.07 10^6/uL (4.20-5.40); Red Cell Distribution Width 12.4 % (11.0-15.0); White Blood Count 7.4 10^3/uL (4.0-11.0)
--- NOTE | 2025-02-07 17:18 | ED.GENADUL1 ---
HPI HPI - General Adult General Chief complaint: OB/Uterine Contractions Stated complaint: 11 weeks , cramping Time Seen by Provider: 02/07/25 16:39 Source: patient Mode of arrival: walk-in History of Present Illness HPI narrative: The patient is a 24-year-old female who presents to the emergency department today for evaluation concerns for abdominal pain in first trimester . She endorses for the past 2 hours she has had a cramping and sharp pain from the periumbilical region that radiates laterally and down her abdomen. She endorses her LMP was 2/ (). No vaginal bleeding or discharge. Denies any nausea or vomiting. No urinary symptoms or back/flank pain. She mention she thought was possible [place] and spoke with her OB office who advised she come to the ER for evaluation. She denies any fever/chills, chest pain, shortness of breath. On arrival to the ER she reports her symptoms have improved. Related Data Home Medications ?Medication ?Instructions ?Recorded ?Confirmed prenat.vits,ladonna,sok-lzjx-udmak tab 02/07/25 Allergies Allergy/AdvReac Type Severity Reaction Status Date / Time Sulfa (Sulfonamide Allergy Intermediate Rash Verified 02/07/25 16:27 Antibiotics) Opioid HPI Opioid Management Most Recent Opioid Data: Last Pain Scale 5 05/20/24, 19:07 Ur Phencyclidine Scrn, (NEGATIVE) Negative 01/30/25, 09:25 Review of Systems ROS Status of ROS 10 or more systems reviewed and unremarkable except as noted in history and below [facility] Surgical History (Updated 02/02/24 @ 00:00 by ) Delivery by section Social History Little interest or pleasure in doing things: not at all Feeling down, depressed, or hopeless: not at all Exam Narrative Exam Narrative: Constituational: Awake/ alert, no apparent distress, well hydrated HENMT: normocephalic, external ears normal, moist oral mucous membranes and oropharynx normal Eyes: Normal external ears and conjunctivae normal Neck: ROM intact Chest: inspection of chest normal Respiratory: Normal respiratory effort, clear to auscultation bilaterally Cardio: regular rate and regular rhythm GI: + Mild discomfort to upper periumbilical region, abdomen is otherwise soft to palpation and non-tender, normal bowel sounds : Normal external exam, scant thick white discharge in vaginal canal, cervical os closed, no lesions, no CMT or adnexal tenderness Back: nontender MSK: ROM intact, +NVI Skin: no rashes or petechiae Neuro: no focal deficits Psych: mental status grossly normal Constitutional Vital Signs, click to edit/add: Last Vital Signs Temp 99.1 F 02/07/25 16:27 Pulse 106 H 02/07/25 16:27 Resp 16 02/07/25 16:27 BP 136/83 02/07/25 16:27 Pulse Ox 98 02/07/25 16:27 O2 Del Method Room Air 02/07/25 16:27 Course Vital Signs Vital signs: Vital Signs Temperature 99.1 F 02/07/25 16:27 Pulse Rate 106 H 02/07/25 16:27 Respiratory Rate 16 02/07/25 16:27 Blood Pressure 136/83 02/07/25 16:27 Pulse Oximetry 98 02/07/25 16:27 Oxygen Delivery Method Room Air 02/07/25 16:27 Temperature 99.1 F 02/07/25 16:27 Pulse Rate 106 H 02/07/25 16:27 Respiratory Rate 16 02/07/25 16:27 Blood Pressure 136/83 02/07/25 16:27 Pulse Oximetry 98 02/07/25 16:27 Oxygen Delivery Method Room Air 02/07/25 16:27 Medical Decision Making [facility] Narrative Medical decision making narrative: The patient is a well-appearing 24-year-old female who presented to the emergency department today for evaluation for concerns for periumbilical/upper abdominal cramping that she felt was similar to her [place] contractions that lasted approximately 2 hours prior to being seen in the ER. Initial examination and vital signs overall stable. No acute abdominal findings on exam. She appears well-hydrated and additionally does not appear to be exhibiting any ischemic symptoms. Labs stable and showed no significant leukocytosis, anemia, or thrombocytopenia. Electrolytes including renal and hepatic function stable. Normal lipase. UA is negative for UTI. Wet prep without critical findings. Chlamydia and gonorrhea screen is pending. Patient has low suspicion for any STD/STIs. OB ultrasound does show IUP with FHT of 162 and otherwise no critical findings with exception to potential subchorionic hemorrhage. Patient was reevaluated multiple times while in the emergency department and had no significant changes in condition. She has continued to be well-appearing. Discussed the above findings with the patient including recommendations for supportive care of abdominal discomfort in the first trimester . Advised on close follow-up with her [employer]SEM[employer]Y for reevaluation potential finding of subchorionic hemorrhage. Historically patient has reported no lower abdominal discomfort/cramping or spotting. Discussed signs and symptoms of any worsening condition and when to consider reevaluation. Patient verbalized an understanding of this and is agreeable with the plan to be discharged home. Medical Records Medical records reviewed: Yes I reviewed the patient's medical records Lab Data Lab results reviewed: Yes I reviewed the patient's lab results Labs: Lab Results 02/07/25 02/07/25 Range/Units 16:30 16:56 WBC 7.4 (4.0-11.0) 10^3/uL RBC 4.07 L (4.20-5.40) 10^6/uL Hgb 12.6 (12.0-16.0) g/dL Hct 35.8 L (36.0-48.0) % MCV 88.0 (81.0-99.0) fL MCH 31.0 (26.7-34.0) pg MCHC 35.2 (29.9-35.2) g/dL RDW 12.4 (11.0-15.0) % Plt Count 317 (150-450) 10^3/uL MPV 10.6 (9.5-13.5) fL Neut % (Auto) 67.3 (43.0-75.0) % Lymph % (Auto) 23.4 (20.5-60.0) % Stewart % (Auto) 7.9 (1.7-12.0) % Eos % (Auto) 0.9 (0.9-7.0) % Baso % (Auto) 0.4 (0.2-2.0) % Neut # (Auto) 5.0 (1.4-6.5) 10^3/uL Lymph # (Auto) 1.7 (1.2-3.8) 10^3/uL Stewart # (Auto) 0.6 (0.3-0.8) 10^3/uL Eos # (Auto) 0.1 (0.0-0.7) 10^3/uL Baso # (Auto) 0.0 (0.0-0.1) 10^3/uL Abs Immat Gran (auto) 0.01 (0.00-0.03) 10^3/uL Imm/Tot Granulo (auto) 0.1 (0.0-0.5) % Sodium 138 (136-145) mmol/L Potassium 3.2 L (3.5-5.1) mmol/L Chloride 103 (98-107) mmol/L Carbon Dioxide 25.9 (21.0-32.0) mmol/L Anion Gap 12.3 BUN 5.0 L (7.0-18.0) mg/dL Creatinine 0.52 L (0.55-1.02) mg/dL Est GFR ( Amer) >60 (>=60 mL/min/1.73m^2) Est GFR (Non-Af Amer) >60 (>=60 mL/min/1.73m^2) BUN/Creatinine Ratio 9.6 Glucose 89 (74-106) mg/dL Calcium 9.0 (8.5-10.1) mg/dL Total Bilirubin 0.3 (0.2-1.0) mg/dL AST 16 (15-37) U/L ALT 32 (14-59) U/L Alkaline Phosphatase 60 (46-116) U/L Total Protein 7.1 (6.4-8.2) g/dL Albumin 3.6 (3.4-5.0) g/dL Globulin 3.5 g/dL Albumin/Globulin Ratio 1.0 Lipase 31.0 (16.0-77.0) U/L HCG, Quant 31359 mIU/mL Urine Color Lt. yellow (YELLOW) Urine Clarity Clear (CLEAR) Urine pH 6.5 (5.0-9.0) Ur Specific [place] <=1.005 A (1.005-1.025) Urine Protein Negative (NEG/TRACE) mg/dL Urine Glucose (UA) Negative (NEGATIVE) mg/dL Urine Ketones Negative (NEGATIVE) mg/dL Urine Occult Blood Negative (NEGATIVE) Urine Nitrite Negative (NEGATIVE) Urine Bilirubin Negative (NEGATIVE) Urine Urobilinogen 0.2 (0.2-1.0) EU/dL Ur Leukocyte Esterase Negative (NEGATIVE) Imaging Data OB ultrasound: Attestation: I have reviewed the pertinent imaging results. Radiologist's impression: 11-week and 4-day gestation. Potential subchorionic hemorrhage with follow-up recommended Discharge Plan Discharge Chief Complaint: OB/Uterine Contractions Clinical Impression: Abdominal pain affecting Patient Disposition: Home, Self-Care Prescriptions / Home Meds: No Action prenat.vits,ladonna,cni-entd-dgtgy Tablet Print Language: Georgian Instructions: Abdominal Pain in (ED) Additional Instructions: Please follow-up with your [employer] for reevaluation as discussed. May take Tylenol as needed. Drink plenty of fluids. May additionally use warm compresses on the abdomen to alleviate any discomfort. May return to the ER with any concerns at any time. Referrals: ADRYAN MOORE [Primary Care Provider, Family Practice] - 1 week
[2025-02-07 17:36] LABS: Bilirubin Urine NEGATIVE (NEGATIVE); Blood Urine NEGATIVE (NEGATIVE); Clarity Urine CLEAR (CLEAR); Color Urine LT. YELLOW (YELLOW); Glucose Urine UA NEGATIVE (NEGATIVE); Ketones Urine NEGATIVE (NEGATIVE); Leukocyte Esterase Urine NEGATIVE (NEGATIVE); Nitrite Urine NEGATIVE (NEGATIVE); Protein Urine NEGATIVE (NEG/TRACE); Specific Gravity Urine <=1.005 (1.005-1.025); Urine Microscopic Indicated NO; Urobilinogen Urine 0.2 EU/dL (0.2-1.0); pH Urine 6.5 (5.0-9.0)
[2025-02-07 17:46] LABS: Alanine Aminotransferase 32 U/L (14-59); Albumin Level 3.6 g/dL (3.4-5.0); Alkaline Phosphatase 60 U/L (46-116); Anion Gap 12.3; Aspartate Amino Transferase 16 U/L (15-37); BUN Creatinine Ratio 9.6; Bilirubin Total 0.3 mg/dL (0.2-1.0); Carbon Dioxide 25.9 mmol/L (21.0-32.0); Chloride 103 mmol/L (98-107); Estimated GFR (African America >60 (>=60 mL/min/1.73m^2); Estimated GFR (Non-African Ame >60 (>=60 mL/min/1.73m^2); Globulin 3.5 g/dL; Glucose 89 mg/dL (74-106); Potassium 3.2 mmol/L (3.5-5.1); Sodium 138 mmol/L (136-145); Total Protein 7.1 g/dL (6.4-8.2)
[2025-02-07 17:54] LABS: HCG Quantitative 98036 mIU/mL
--- NOTE | 2025-02-10 15:35 | PC.NURSE ---
Patient notified of rejected GC/Chlymidia swab. Denies symptoms at this time but will have follow up done if needed.
== END 2025-02-07 19:30 | disposition home or self-care (01) ==
PROVIDERS: Nurse Practitioner; Emergency Provider Emergency Medicine; PCP Family Medicine
DX: O26.891 Other specified pregnancy related conditions, first trimester (principal); R10.9 Unspecified abdominal pain; Z3A.11 11 weeks gestation of pregnancy
CPT/HCPCS: 36415; 76801; 80053; 81003; 83690; 84702; 85025; 87210; 87491; 87591; 99285

== ENCOUNTER 2025-05-26 07:44 | Outpatient (OUT) | payer OTHER, SELFPAY ==
--- OUTSIDE RECORDS SUMMARY | 2025-05-26 07:50 | XMS_ITS | CCD ---
Author Organization [facility] Care Team Providers Care Woods Rider Name Role Phone Deonna Back Unavailable ADRYAN MARIE Primary Care Physician [phone] [place], DR LUIS ANTONIO [employer] Unavailable [...] Unavailable Defrance Adryan OBRIEN Primary Care Provider Devan Tello DO Unavailable Adryan Marie MD Primary Care Provider [phone] DEVAN TELLO Attending Unavailable CYDNEY LEOS Attending Unavailable OMER, DEVAN Attending Unavailable OMER, DEVAN Referring Unavailable OMER, DEVAN Attending Unavailable OMER, DEVAN Referring Unavailable OMER, DEVAN Attending Unavailable CYDNEY LEOS Attending Unavailable OMER, DEVAN Attending Unavailable OMER, DEVAN Attending Unavailable Allergies Allergy Classification Reported Allergen(s) Allergy Type Date of Onset Reaction(s) Facility (3 sources) Sulfacetamide Drug Allergy rash Heat[facility] Other (1 source) Sulfonamides (Antibiotic); Translations: [sulfa drugs] Drug allergy Hyperpyrexia (finding) [facility] (1 source) Sulfonamides (Antibiotic) Drug allergy (disorder) 07-26-20 14 [facility] (20 sources) Sulfonamides (Antibiotic) Drug Intolerance 06-17-20 18 Fever, Hives, Rash [facility] Work Phone: Medications Current Medications Medication Drug Class(es) Dates Sig (Normalized) Sig (Original) citalopram 20 mg oral tablet (13 sources) Serotonin Reuptake Inhibitor Start: 04-14-2024 End: 11-25-2025 take 1 tablet by mouth once daily citalopram (CeleXA) 20 MG tablet Indications: Post depression (CMS/HCC) Take 1 tablet (20 mg) by mouth Daily 90 tablet 3 11/30/2024 11/25/2025 Active Ethinyl Estradiol / Ferrous fumarate / Norethindrone (11 sources) Estrogen Start: 12-06-2024 Aurovela FE 10/17 1-20 MG-MCG tablet 12/06/2024 Active Start: 05-12-2024 End: 11-01-2024 take 1 tablet by mouth once daily, then take 1 tablet by mouth once daily norethindrone-ethinyl estradiol (Junel F E 10/17) 1-20 MG-MCG tablet Indications: Encounter for initial prescription of contraceptive pills Take 1 tablet by mouth Daily for 28 days Take 1 tablet by mouth daily 28 tablet 05/12/2024 11/01/2024 Discontinued (Other) Start: 05-12-2024 take 1 tablet by tresa th once daily, then take 1 tablet by mouth once daily norethindrone-ethinyl estradiol (Junel F E 10/17) 1-20 MG-MCG tablet Indications: Encounter for initial prescription of contraceptive pills Take 1 tablet by mouth Daily for 28 days Take 1 tablet by mouth daily 28 tablet 05/12/2024 Active fluticasone propionate 0.05 mg/actuat metered dose [...] BY MOUTH EVERY MORNING 0 10/06/2023 Active VA-Vya-JN-[place]-3 ( GUMMIES/DHA & FA PO) (7 sources) UL-Yai-KY-[place]-3 ( GUMMIES/DHA & FA PO) Take 1 each by mouth Daily Active IE-Dot-GX-[place]-3 ( Gummies/DHA & FA) 0.4-32.5 MG chewable tablet (3 sources) Start: 06-19-2023 End: 06-18-2024 WB-Lxr-UA-[place]-3 ( Gummies/DHA & FA) 0.4-32.5 MG chewable tablet Indications: Missed menses Chew 32.5 mg in the morning. 30 tablet 11 06/19/2023 06/18/2024 Active Completed/Discontinued Medications Medication Drug Class(es) Dates Sig (Normalized) Sig (Original) [id number] 200 actuat albuterol 0.09 mg/actuat metered dose [...] 8 hrs for 10 day(s) January, Not-Taking azithromycin 250 mg oral tablet (6 sources) Macrolide Antimicrobial Start: 03-08-2024 End: 08-29-2024 azithromycin (Zithromax Z-Darren) 250 MG tablet Indications: Upper respiratory tract infection, unspecified type As directed 6 tablet 03/08/2024 08/29/2024 Discontinued Brompheniramine / Pseudoephedrine (3 sources) alpha-Adrenergic Agonist Start: 02-21-2018 take 5 mL by mouth every six hours as needed Bromfed DM 30-2-10 MG/5ML 5 ml as needed Orally every 6 hrs January, Not-Taking diphenhydrAMINE hydrochloride 25 mg oral capsule (6 sources) Histamine-1 Receptor Antagonist Start: 03-29-2024 End: 08-29-2024 take 1 capsule by mouth every six hours diphenhydrAMINE (Benadryl Allergy) 25 MG capsule Indications: Allergy, initial encounter Take 1 capsule (25 mg) by mouth every 6 (six) hours if needed for itching for up to 10 days 30 capsule 03/29/2024 08/29/2024 Discontinued ethinyl estradiol 0.035 mg / norgestimate 0.25 mg oral tablet (6 sources) Progestin, Estrogen Start: 04-14-2024 End: 08-29-2024 take 1 tablet by mouth once daily, then take 1 tablet by mouth once daily norgestimate-ethiny l estradiol (Sprintec 28) 0.25-35 MG-MCG tablet Indications: Surveillance for control, oral contraceptives Take 1 tablet by mouth Daily Take 1 tablet by mouth daily 90 tablet 04/14/2024 08/29/2024 Discontinued hydrocortisone 10 mg/ml / neomycin 3.5 mg/ml / polymyxin b [id number] unt/ml otic suspension (3 sources) Aminoglycoside Antibacterial, Polymyxin-class Antibacterial, Corticosteroid Start: 04-02-2022 Neomycin-Polymyxin- HC 3.5-97713-8 3 drops left ear Three times a [...] sources) Hematemesis; Translations: [HEMATEMESIS] Onset: 09-14-2022 Episodic Genitourinary symptoms and ill-defined conditions (2 sources) Urinary symptoms ; Translations: [Unspecified symptoms and signs involving the genitourinary system] 08-29-2024 Episodic Headache; including migraine (1 source) Headache; Translations: [Headache, unspecified] Onset: 04-12-2022 Episodic Headache; including migraine (4 sources) Headache; including migraine; Translations: [HEADACHE UNSPECIFIED] Onset: 04-13-2022 Hemorrhage during ; abruptio placenta; placenta previa (2 sources) Subchorionic hematoma; Translations: [Other antepartum hemorrhage, unspecified trimester] 05-16-2025 Episodic Immunizations and screening for infectious disease (4 sources) Exposure to sexually transmissible disorder; Translations: [Contact with and (suspected) exposure to infections with a predominantly sexual mode of transmission] 12-06-2024 Episodic Menstrual disorders (4 sources) Dysmenorrhea, unspecified; Translations: [Missed period] Onset: 10-30-2021 08-29-2024 Chronic Miscellaneous mental health disorders (4 sources) depression; Translations: [ depression] 06-13-2024 Episodic Other complications of (2 sources) Excessive growth affecting management of mother; Translations: [Maternal care for excessive growth, third trimester, not applicable or unspecified] 11-12-2023 Episodic Other female genital disorders (1 source) Unspecified dyspareunia; Translations: [UNSPECIFIED DYSPAREUNIA] Onset: 10-30-2021 Chronic Other female genital disorders (2 sources) Vaginal discharge; Translations: [Other specified noninflammatory disorders of vagina] 03-20-2025 Episodic Other gastrointestinal disorders (5 sources) Diarrhea, unspecified; Translations: [DIARRHEA UNSPECIFIED] Onset: 04-16-2022 Episodic Other and delivery including normal (10 sources) Third trimester ; Translations: [Encounter for supervision of normal , unspecified, third trimester] 11-10-2023 Episodic Other screening for suspected conditions (not mental disorders or infectious disease) (4 sources) Patient encounter status; Translations: [Encounter for other specified screening] 03-20-2025 Episodic Other skin disorders (5 sources) Rash and other nonspecific skin eruption; Translations: [RASH OTH NONSPECIFIC SKIN ERUPTION] Onset: 08-11-2022 Episodic Residual codes; unclassified (1 source) Gestation period, 9 weeks; Translations: [9 weeks gestation of ] 01-20-2025 Episodic Residual codes; unclassified (2 sources) Gestation period, 17 weeks; Translations: [17 weeks gestation of ] 03-20-2025 Episodic Residual codes; unclassified (2 sources) Gestation period, 21 weeks; Translations: [21 weeks gestation of ] 04-18-2025 Episodic Residual codes; unclassified (2 sources) Gestation period, 24 weeks; Translations: [24 weeks gestation of ] 05-16-2025 Episodic Substance-related disorders (2 sources) Nicotine dependence, other tobacco product, uncomplicated; Translations: [Nicotine dependence, cigarettes, uncomplicated] Onset: 08-14-2022 Chronic Unclassified (1 source) CONTACT W/AND (SUSP) EXPOS COVID-19; Translations: [CONTACT W/AND (SUSP) EXPOS COVID-19] Onset: 10-24-2021 Unclassified (20 sources) OB Reminders Onset: 06-27-2023 06-27-2023 Past [...] Range Facility Urinalysis macro (dipstick) panel (U)on 05-16-2025 Bilirubin, UA Negative Negative - 4(70) +++ mg/dL [facility] Blood, UA Negative Negative - 50 Cedric/mcL [facility] Clarity, UA Clear [facility] re Color, UA Yellow [facility] Glucose, UA Negative Negative - 1999(110) ++++ mg/dL [facility] Interpretation and review of laboratory results Normal [facility] re Ketones, UA Negative Negative - 160(16) ++++ mg/dL [facility] Leukocytes, UA Negative Negative - 500+++ Alessandro/mcL [facility] Nitrite, UA Negative Negative - Positive [facility] pH, UA 6 5 - 9 [facility] Protein, UA Negative Negative - 1999(20) ++++ mg/dL [facility] Spec Grav, UA 1.02 1 - 1.03 [facility] Urobilinogen, UA 1.0 0.2 - 12 mg/dL [facility] Urinalysis macro (dipstick) panel (U)Ordered By: Jasmin Nogueira on 04-18-2025 Bilirubin, UA Negative Negative - 4(70) +++ mg/dL [facility] Work Phone: Blood, UA Negative Negative - 50 Cedric/mcL [facility] Work Phone: Clarity, UA Clear [facility] Work Phone: Color, UA Yellow [facility] Work Phone: Glucose, UA Negative Negative - 1999(110) ++++ mg/dL [employer] Work Phone: Interpretation and review of laboratory results Abnormal [facility] Work Phone: Ketones, UA Negative Negative - 160(16) ++++ mg/dL [employer] Work Phone: Leukocytes, UA Negative Negative - 500+++ Alessandro/mcL [employer] Work Phone: Nitrite, UA Negative Negative - Positive [employer] Work Phone: pH, UA 6 5 - 9 [facility] Work Phone: Protein, UA Trace Negative - 1999(20) ++++ mg/dL [employer] [facility] Work Phone: Spec Grav, UA 1.01 1 - 1.03 [employer] Work Phone: Urobilinogen, UA 1.0 0.2 - 12 mg/dL [employer] Work Phone: [facility] Work Phone: US OB 14+ WEEKS ANATOMY SCAN on 03-20-2025 US OB 14+ WEEKS ANATOMY SCAN EXAM: US OB 14+ WEEKS ANATOMY SCAN HISTORY: anatomy. COMPARISON: Ob ultrasound 02/27/2025. TECHNIQUE: Two-dimensional transabdominal grayscale ultrasound imaging of the pelvis was performed. FINDINGS: Gestation: Single Presentation: Cephalic Cardiac Activity: 136 beats per minute Placental Location: Anterior with no sonographic abnormalities identified. Distance from Placental Tip to Cervix: 7.1 cm Cervical Length: 5.1 cm Amniotic Fluid: Appears adequate MEASUREMENTS: BPD: 4.8 cm EGA: 20 weeks 3 days HC: 18.5 cm EGA: 20 weeks 6 days AC: 16.1 cm EGA: 21 weeks 2 days FL: 3.6 cm EGA: 21 weeks 4 days HC/AC Ratio: 1.15 The gestational age by today's ultrasound is 21 weeks 0 days (+/- 10 days gestation). Estimated Weight: 413 grams, +/- 62 grams ( 0 lb 15 oz). Weight Percentile for gestational age: 30 % ANATOMY C-Spine: Unremarkable T-Spine: Unremarkable L-Spine: Unremarkable Sacrum: Unremarkable Four Chamber Heart: Unremarkable LVOT: Unremarkable RVOT: Unremarkable Stomach: Unremarkable Kidneys: Unremarkable Bladder: Unremarkable Diaphragm: Unremarkable Cord insertion: Unremarkable Cord vessels: Three Lateral Ventricles: Unremarkable Cerebellum: Unremarkable Cisterna Magna: Unremarkable Posterior Fossa: Unremarkable Right Femur: Unremarkable Left Femur: Unremarkable Right Tib/Fib: Unremarkable Left Tib/Fib: Unremarkable Right Rad/Ulnar: Unremarkable Left Rad/Ulnar: Unremarkable Right Humerus: Unremarkable Left Humerus: Unremarkable Nose/Lips: Unremarkable Profile: Unremarkable Orbits: Unremarkable IMPRESSION: 1. Single, live intrauterine gestation 21 weeks, 4 days by LMP. Today's ultrasound measurements correlate with a gestational age of 21 weeks 0 days. Estimated weight is 413 grams, +/- 62 grams ( 0 lb 15 oz) which correlates to 30 %. TOMASZ by today's ultrasound is 08/29/2025. 2. Unremarkable ultrasound of the anatomy. Interpreted by: Electronically signed by SAMARA SERNA II, MD, PHD at 19-Apr-2025 10:16:24 AM [facility] Normal Not Available Comment on above: Order Comment: US OB ANATOMY SINGLE W US OB CERVICAL LENGTH Estimated Date of Delivery: 08/25/25 Gestational Age as of 03/20/2025: 17w3d Urinalysis macro (dipstick) panel (U)on 03-20-2025 Bilirubin, UA Negative Negative - 4(70) +++ mg/dL [facility] Blood, UA Negative Negative - 50 Cedric/mcL [facility] Clarity, UA Clear [facility] re Color, UA Yellow [facility] Glucose, UA Negative Negative - 1999(110) ++++ mg/dL [facility] Interpretation and review of laboratory results Normal [facility] re Ketones, UA Negative Negative - 160(16) ++++ mg/dL [facility] Leukocytes, UA Negative Negative - 500+++ Alessandro/mcL [facility] Nitrite, UA Negative Negative - Positive [facility] pH, UA 6.5 5 - 9 [facility] Protein, UA Negative Negative - 1999(20) ++++ mg/dL [facility] [employer] Spec Grav, UA 1.01 1 - 1.03 [facility] Urobilinogen, UA 0.2 0.2 - 12 mg/dL [facility] LIMITED 1+ FETUSESon 0 02-27-2025 US OB LIMITED 1+ FETUSES EXAM: US OB LIMITED 1+ FETUSES HISTORY: Follow up subchorionic hematoma. TOMASZ 08/25/2025. . COMPARISON: U/S OB 02/07/2025, 01/20/2025. TECHNIQUE: Two-dimensional transabdominal grayscale ultrasound imaging of the pelvis was performed. FINDINGS: Gestation: Single Presentation: Cannot determine on the provided images Cardiac Activity: 142 beats per minute Placental Location: Anterior with a few small areas of subchorionic hemorrhage Distance from Placental Tip to Cervix: Not measured, appears visually adequate Cervical Length: Suboptimally visualized due to overlying shadowing Amniotic Fluid Index: Not measured, appears visually adequate IMPRESSION: 1. Single, live intrauterine gestation 14 weeks, 3 days by LMP. 2. Areas of small subchorionic hemorrhage within anterior placenta. No significant bleed. Interpreted by: Electronically signed by SAMARA SERNA II, MD, PHD at 28-Feb-2025 11:32:13 PM [facility] Normal Not Available Comment on above: Order Comment: US OB VIABILITY PLEASE PERFORM TRANSVAGINAL ULTRASOUND IF INDICATED Patient's last menstrual period was 11/18/2024 (approximate). BOX TESTon 01-30-2025 BOX TEST SENT OUT [employer] [facility] BOX[address] [facility] [employer] [facility] BOX2 01/30/25 [facility] [facility] HCG ( test) Ql (U)o n 01-20-2025 Interpretation and review of laboratory results Abnormal [facility] [employer] re Preg Test, Ur Positive Negative [facility] US OB TRANSVAGINALon 01-20- 025 US OB TRANSVAGINAL EXAM: US OB TRANSVAGINAL HISTORY: Dating. . LMP 11/18/2024. COMPARISON: None available. TECHNIQUE: Two-dimensional transvaginal grayscale and color Doppler ultrasound imaging of the pelvis was performed. FINDINGS: The uterus demonstrates a normal homogeneous echotexture. The cervical os is closed. The right ovary measures 3.2 x 1.4 x 2.6 cm and demonstrates a normal echotexture. There is normal color Doppler flow. The left ovary measures 4.2 x 2.8 x 3.1 cm and demonstrates a normal echotexture with an anechoic corpus luteal cyst. There is normal color Doppler flow. No fluid is present within the cul-de-sac. There is a single, live intrauterine gestation identified with a heart rate of 163 beats per minute and a crown-rump length measurement of 2.0 cm, correlating to a gestational age of 8 weeks 4 days (+/- 5 days). There is no subchorionic hemorrhage visualized. A yolk sac is visualized. IMPRESSION: 1. Single, live intrauterine gestation 9 weeks, 0 days by LMP. Today's ultrasound measurements correlate with a gestational age of 8 weeks 4 days (+/- 5 days). TOMASZ by today's ultrasound is August 28, 2025. 2. Normal color Doppler evaluation of the bilateral ovaries. Interpreted by: Electronically signed by SAMARA SERNA II, MD, PHD at 20-Jan-2025 09:44:55 AM [facility] Normal Not Available Comment on above: Order Comment: US OB TRANSVAGINAL No LMP recorded. Urinalysis macro (dipstick) panel (U)on 01-20-2025 Bilirubin, UA Negative Negative - 4(70) +++ mg/dL [facility] Blood, UA Negative Negative - 50 Cedric/mcL [facility] Clarity, UA Clear [facility] re Color, UA Yellow [facility] e Glucose, UA Negative Negative - 1999(110) ++++ mg/dL [facility] Interpretation and review of laboratory results Normal [facility] re Ketones, UA Negative Negative - 160(16) ++++ mg/dL [facility] Leukocytes, UA Negative Negative - 500+++ Alessandro/mcL [facility] Nitrite, UA Negative Negative - Positive [facility] pH, UA 7.5 5 - 9 [facility] e Protein, UA Trace Negative - 1999(20) ++++ mg/dL [facility] Spec Grav, UA 1.02 1 - 1.03 [facility] Urobilinogen, UA 0.2 0.2 - 12 mg/dL [facility] HCG ( test) Ql (U)o n 12-06-2024 Interpretation and review of laboratory results Normal [facility] re Preg Test, Ur Negative Negative [facility] IGP,APTIMA HPV,AGE GDLNon AGE GDLN ACOG TESTING Note . [facility] Comment on above: TESTS RESULT FLAG UN ITS REF RANGE LAB Clinician Provided Cytology Information Source.............Cervix;Endocervix No. of containers..01 ThinPrep Vial Age Algo ACOG Zari... FLAG LEGEND: L-Low Normal,H-High Normal,LL-Alert Low,HH-Alert High <-Panic Low,>-Panic High,A-Abnormal,AA-Critical Abnormal Performed at: 01 =G [address] [id number] Dian Gauthier MD, IGP, RFX APTIMA HPV ASCU Note . [facility] Comment on above: TESTS RESULT FLAG UN ITS REF RANGE LAB DIAGNOSIS: 02 NEGATIVE FOR INTRAEPITHELIAL LESION OR MALIGNANCY. Specimen adequacy: 02 Satisfactory for evaluation. Endocervical and/or squamous metaplastic cells (endocervical component) are present. Performed by: 02 Nohelia Deleon, Stock Broker Supervisor (ASCP) . 02 Note: Note 02 The Pap smear is a screening test designed to aid in the detection of premalignant and malignant conditions of the uterine cervix. It is not a diagnostic procedure and should not be used as the sole means of detecting cervical cancer. Both false-positive and false-negative reports do occur. Test Methodology: Note 02 This liquid based ThinPrep(R) pap test was screened with the use of an image guided system. . 02 The HPV DNA reflex criteria were not met with this specimen result therefore, no HPV testing was performed. FLAG LEGEND: L-Low Normal,H-High Normal,LL-Alert Low,HH-Alert High <-Panic Low,>-Panic High,A-Abnormal,AA-Critical Abnormal Performed at: [address] [address] Dian Gauthier MD, Performed at: =G - [facility] [address] [id number] Map And Chart Mounter: Dian Gauthier MD, Phone: [phone] Performed at: [facility] [address] [id number] Map And Chart Mounter: Dian Gauthier MD, Phone: [phone] BRUSH-SPATULA CERVIX ENDOCERVIX [facility] HCG ( test) Ql (U)o n 08-29-2024 Interpretation and review of laboratory results Normal [facility] re Preg Test, Ur Negative Negative [facility] Urinalysis macro (dipstick) panel (U)on 08-29-2024 Bilirubin, UA Negative Negative - 4(70) +++ mg/dL [facility] Blood, UA Negative Negative - 50 Cedric/mcL [facility] Healthcare Clarity, UA Clear [facility] Color, UA Colorless [facility] Glucose, UA Negative Negative - 1999(110) ++++ mg/dL [facility] Interpretation and review of laboratory results Normal [facility] Ketones, UA Negative Negative - 160(16) ++++ mg/dL [facility] Leukocytes, UA Negative Negative - 500+++ Alessandro/mcL [facility] Nitrite, UA Negative Negative - Positive [facility] pH, UA 6.5 5 - 9 [facility] Protein, UA Negative Negative - 1999(20) ++++ mg/dL [facility] Spec Grav, UA 1.01 1 - 1.03 [facility] Urobilinogen, UA 0.2 0.2 - 12 mg/dL [facility] Urinalysis macro (dipstick) panel (U)on 11-12-2023 Bilirubin, UA Negative Negative - 4(70) +++ mg/dL [facility] Blood, UA Negative Negative - 50 Cedric/mcL [facility] Healthcare Clarity, UA Clear [facility] Color, UA Yellow [facility] Glucose, UA Negative Negative - 1999(110) ++++ mg/dL [facility] Interpretation and review of laboratory results Normal [facility] Ketones, UA Negative Negative - 160(16) ++++ mg/dL [facility] Leukocytes, UA Negative Negative - 500+++ Alessandro/mcL [facility] Nitrite, UA Negative Negative - Positive [facility] pH, UA 6.0 5 - 9 [facility] Protein, UA Negative Negative - 1999(20) ++++ mg/dL [facility] Spec Grav, UA 1.020 1 - 1.03 [facility] Urobilinogen, UA 0.2 0.2 - 12 mg/dL [facility] ALL CBC WITH AUTO DIFFon BASOPHILS ABSOLUTE AUTO 0.0 [facility] Basophils/100 WBC (Bld) 0.3 % 0.2 - 2.0 % [facility] Eosinophils/100 WBC (Bld) 1.0 % 0.9 - 7.0 % [facility] Erythrocyte distribution width (RBC) [Ratio] 12.5 % 11.0 - 15.0 % [facility] Hematocrit (Bld) [Volume fraction] 35.1 % Low 36.0 - 48.0 % [facility] Hemoglobin (Bld) [Mass/Vol] 11.7 g/dL Low 12.0 - 16.0 g/dL [facility] IMMATURE GRANULOCYTES ABS AUTO 0.08 High [facility] Immature granulocytes/100 WBC (Bld) 0.6 % High 0.0 - 0.5 % [facility] Interpretation and review of laboratory results Abnormal [facility] LYMPHOCYTES ABSOLUTE AUTO 1.6 [facility] Lymphocytes/100 WBC (Bld) 11.9 % Low 20.5 - 60.0 % [facility] MCH (RBC) [Entitic mass] 30.7 pg 26.7 - 34.0 pg [facility] MCHC (RBC) [Mass/Vol] 33.3 g/dL 29.9 - 35.2 g/dL [facility] MCV (RBC) [Entitic vol] 92.1 fL 81.0 - 99.0 fL [facility] MONOCYTES ABSOLUTE AUTO 0.8 [facility] Monocytes/100 WBC (Bld) 5.5 % 1.7 - 12.0 % [facility] NEUTROPHILS ABSOLUTE AUTO 11.1 High [facility] Neutrophils/100 WBC (Bld) 80.7 % High 43.0 - 75.0 % [facility] Platelet mean volume (Bld) [Entitic vol] 10.6 fL 9.5 - 13.5 fL [facility] TBH EO # 0.1 [facility] TBH PLT 292 [facility] TB RBC 3.81 Low [facility] TBH WBC 13.8 High [facility] CBC AUTO DIFFon 09-14-2022 BASO # 0.0 103/ul Normal 0.0-0.1 [facility] Comment on above: Performed By: #### B GURPREET, TSH #### [facility] [address] [address] [address] Reema Mireles Basophils/100 WBC (Bld) 0.6 % Normal 0.2-2.0 [facility] Comment on above: Performed By: #### B GURPREET, TSH #### [facility] [address] [place] [address] Dr. Reema Mireles EO # 0.0 103/ul Normal 0.0-0.7 [facility] Comment on above: Performed By: #### B MP, TSH #### [facility] [address] [place] [address] Dr. Reema Mireles Eosinophils/100 WBC (Bld) 0.6 % Critically low 0.9-7.0 [facility] Comment on above: Performed By: #### B MP, TSH #### [facility] [address] [place] [address] Dr. Reema Mireles Erythrocyte distribution width (RBC) [Ratio] 11.9 % Normal 11.0-15.0 [facility] Comment on above: Performed By: #### B MP, TSH #### [facility] [address] [place] [address] Dr. Reema Mireles Hematocrit (Bld) [Volume fraction] 37.8 % Normal 36.0-48.0 [facility] Comment on above: Performed By: #### B MP, TSH #### [facility] [address] [place] [address] Dr. Reema Mireles Hemoglobin (Bld) [Mass/Vol] 13.5 g/dL Normal 12.0-16.0 [facility] Comment on above: Performed By: #### B MP, TSH #### [facility] [address] [place] [address] Dr. Reema Mireles IG # 0.01 10e3/ul Normal 0.00-0.03 [facility] Comment on above: Performed By: #### B MP, TSH #### [facility] [address] [place] [address] Dr. Reema Mireles IG % 0.2 % Normal 0.0-0.5 [facility] Comment on above: Performed By: #### B MP, TSH #### [facility] [address] [place] [address] Dr. Reema Mireles LYMPH # 1.6 103/ul Normal 1.2-3.8 [facility] Comment on above: Performed By: #### B MP, TSH #### [facility] [address] [place] [address] Dr. Reema Mrieles Lymphocytes/100 WBC (Bld) 25.5 % Normal 20.5-60.0 [facility] Comment on above: Performed By: #### B MP, TSH #### [facility] [address] [place] [address] Dr. Reema Mireles MANUAL DIFF REQ NO Normal [facility] Comment on above: Performed By: #### B MP, TSH #### [facility] [address] [place] [address] Dr. Reema Mireles MCH (RBC) [Entitic mass] 30.9 pg Normal 26.7-34.0 [facility] Comment on above: Performed By: #### B MP, TSH #### [facility] [address] [place] [address] Dr. Reema Mireles MCHC (RBC) [Mass/Vol] 35.7 g/dL Critically high 29.9-35.2 [facility] Comment on above: Performed By: #### B MP, TSH #### [facility] [address] [place] [address] Dr. Reema Mireles MCV (RBC) [Entitic vol] 86.5 fL Normal 81.0-99.0 [facility] Comment on above: Performed By: #### B MP, TSH #### [facility] [address] [place] [address] Dr. Reema Mireles MONO # 0.5 103/ul Normal 0.3-0.8 [facility] Comment on above: Performed By: #### B MP, TSH #### [facility] [address] [place] [address] Dr. Reema Mireles Monocytes/100 WBC (Bld) 8.5 % Normal 1.7-12.0 [facility] Comment on above: Performed By: #### B MP, TSH #### [facility] [address] [place] [address] Dr. Reema Mireles NEUT # 4.1 103/ul Normal 1.4-6.5 [facility] Comment on above: Performed By: #### B MP, TSH #### [facility] [address] [address] [address] Reema Mireles Neutrophils/100 WBC (Bld) 64.6 % Normal 43.0-75.0 [facility] Comment on above: Performed By: #### B MP, TSH #### [facility] [address] [address] [address] Reema Mireles Platelet mean volume (Bld) [Entitic vol] 9.9 fL Normal 9.5-13.5 [facility] Comment on above: Performed By: #### B MP, TSH #### [facility] [address] [address] [address] Reema Mireles PLT 403 103/ul Normal 150-450 [facility] Comment on above: Performed By: #### B MP, TSH #### [facility] [address] [place] [address] Dr. Reema Mireles RBC 4.37 106/ul Normal 4.20-5.40 [facility] Comment on above: Performed By: #### B MP, TSH #### [facility] [address] [address] [address] Reema Mireles WBC 6.3 103/ul Normal 4.0-11.0 [facility] Comment on above: Performed By: #### B MP, TSH #### [facility] [address] [address] [address] Reema Mireles PROF 14(COMP METB)on 022 Albumin [Mass/Vol] 4.3 g/dL Normal 3.4-5.0 [facility] Comment on above: Performed By: #### B MP, TSH #### [facility] [address] [address] [address] Reema Mireles Albumin/Globulin [Mass ratio] 1.2 {ratio} Normal [facility] Comment on above: Performed By: #### B MP, TSH #### [facility] [address] [address] [address] Reema Mireles ALP [Catalytic activity/Vol] 79 U/L Normal 46-116 [facility] Comment on above: Performed By: #### B MP, TSH #### [facility] [address] [address] [address] Reema Mireles ALT [Catalytic activity/Vol] 31 U/L Normal 14-59 [facility] Comment on above: Performed By: #### B MP, TSH #### [facility] [address] [address] [address] Reema Mireles Anion gap [Moles/Vol] 12.1 mmol/L Normal [facility] Comment on above: Performed By: #### B MP, TSH #### [facility] [address] [address] [address] Reema Mireles AST [Catalytic activity/Vol] 17 U/L Normal 15-37 [facility] Comment on above: Performed By: #### B MP, TSH #### [facility] [address] [address] [address] Reema Mireles Bilirubin [Mass/Vol] 0.4 mg/dL Normal 0.2-1.0 [facility] Comment on above: Performed By: #### B MP, TSH #### [facility] [address] [address] [address] Reema Mireles Calcium [Mass/Vol] 8.9 mg/dL Normal 8.5-10.1 [facility] Comment on above: Performed By: #### B MP, TSH #### [facility] [address] [address] [address] Reema Mireles Chloride [Moles/Vol] 98 mmol/L Normal 98-107 [facility] Comment on above: Performed By: #### B MP, TSH #### [facility] [address] [address] [address] Reema Mireles CO2 [Moles/Vol] 27.0 mmol/L Normal 21.0-32.0 [facility] Comment on above: Performed By: #### B MP, TSH #### [facility] [address] [address] [address] Reema Mireles Creatinine [Mass/Vol] 0.65 mg/dL Normal 0.55-1.02 [facility] Comment on above: Performed By: #### B MP, TSH #### [facility] [address] [address] [address] Reema Mireles EGFR-AF CHINESE >60 Normal >=60 [facility] Comment on above: Performed By: #### B MP, TSH #### [facility] [address] [address] [address] Reema Mireles EGFR-NON AF CHINESE >60 Normal >=60 [facility] Comment on above: Performed By: #### B MP, TSH #### [facility] [address] [address] [address] Reema Mireles Globulin (S) [Mass/Vol] 3.5 g/dL Normal [facility] Comment on above: Performed By: #### B MP, TSH #### [facility] [address] [place] [address] Dr. Reema Mireles Glucose [Mass/Vol] 106 mg/dL Normal 74-106 [facility] Comment on above: Performed By: #### B MP, TSH #### [facility] [address] [address] [address] Reema Mireles Potassium [Moles/Vol] 3.1 mmol/L Critically low 3.5-5.1 [facility] Comment on above: Performed By: #### B MP, TSH #### [facility] [address] [place] [address] Dr. Reema Mireles Protein [Mass/Vol] 7.8 g/dL Normal 6.4-8.2 [facility] Comment on above: Performed By: #### B MP, TSH #### [facility] [address] [place] [address] Dr. Reema Mireles Sodium [Moles/Vol] 134 mmol/L Critically low 136-145 [facility] Comment on above: Performed By: #### B MP, TSH #### [facility] [address] [address] [address] Reema Mireles Urea nitrogen [Mass/Vol] 6.0 mg/dL Critically low 7.0-18.0 [facility] Comment on above: Performed By: #### B MP, TSH #### [facility] [address] [place] [address] Dr. Reema Mireles Urea nitrogen/Creatinine [Mass ratio] 9.2 mg/mg Normal [facility] Comment on above: Performed By: #### B MP, TSH #### [facility] [address] [place] [address] Dr. Reema Mireles ACETONE SERUMon 08-11-2022 ACETONE Negative Normal NEGATIVE [facility] Comment on above: Performed By: #### B MP, TSH #### [facility] [address] [place] [address] Dr. Reema Mireles CBC AUTO DIFFon 08-11-2022 BASO # 0.1 103/ul Normal 0.0-0.1 [facility] Comment on above: Performed By: #### B MP, TSH #### [facility] [address] [place] [address] Dr. Reema Mireles Basophils/100 WBC (Bld) 0.5 % Normal 0.2-2.0 [facility] Comment on above: Performed By: #### B MP, TSH #### [facility] [address] [place] [address] Dr. Reema Mireles EO # 0.1 103/ul Normal 0.0-0.7 [facility] Comment on above: Performed By: #### B MP, TSH #### [facility] [address] [place] [address] Dr. Reema Mireles Eosinophils/100 WBC (Bld) 0.7 % Critically low 0.9-7.0 [facility] Comment on above: Performed By: #### B MP, TSH #### [facility] [address] [place] [address] Dr. Reema Mireles Erythrocyte distribution width (RBC) [Ratio] 11.7 % Normal 11.0-15.0 [facility] Comment on above: Performed By: #### B MP, TSH #### [facility] [address] [place] [address] Dr. Reema Mireles Hematocrit (Bld) [Volume fraction] 37.6 % Normal 36.0-48.0 [facility] Comment on above: Performed By: #### B MP, TSH #### [facility] [address] [place] [address] Dr. Reema Mireles Hemoglobin (Bld) [Mass/Vol] 13.1 g/dL Normal 12.0-16.0 [facility] Comment on above: Performed By: #### B MP, TSH #### [facility] [address] [place] [address] Dr. Reema Mireles IG # 0.02 10e3/ul Normal 0.00-0.03 [facility] Comment on above: Performed By: #### B MP, TSH #### [facility] [address] [place] [address] Dr. Reema Mireles IG % 0.2 % Normal 0.0-0.5 [facility] Comment on above: Performed By: #### B MP, TSH #### [facility] [address] [place] [address] Dr. Reema Mireles LYMPH # 2.7 103/ul Normal 1.2-3.8 [facility] Comment on above: Performed By: #### B MP, TSH #### [facility] [address] [place] [address] Dr. Reema Mireles Lymphocytes/100 WBC (Bld) 28.5 % Normal 20.5-60.0 [facility] Comment on above: Performed By: #### B MP, TSH #### [facility] [address] [place] [address] Dr. Reema Mireles MANUAL DIFF REQ NO Normal [facility] Comment on above: Performed By: #### B MP, TSH #### [facility] [address] [place] [address] Dr. Reema Mireles MCH (RBC) [Entitic mass] 30.3 pg Normal 26.7-34.0 [facility] Comment on above: Performed By: #### B MP, TSH #### [facility] [address] [place] [address] Dr. Reema Mireles MCHC (RBC) [Mass/Vol] 34.8 g/dL Normal 29.9-35.2 [facility] Comment on above: Performed By: #### B MP, TSH #### [facility] [address] [place] [address] Dr. Reema Mireles MCV (RBC) [Entitic vol] 87.0 fL Normal 81.0-99.0 [facility] Comment on above: Performed By: #### B MP, TSH #### [facility] [address] [place] [address] Dr. Reema Mireles MONO # 0.8 103/ul Normal 0.3-0.8 [facility] Comment on above: Performed By: #### B MP, TSH #### [facility] [address] [place] [address] Dr. Reema Mirlees Monocytes/100 WBC (Bld) 8.2 % Normal 1.7-12.0 [facility] Comment on above: Performed By: #### B MP, TSH #### [facility] [address] [place] [address] Dr. Reema Mireles NEUT # 5.9 103/ul Normal 1.4-6.5 [facility] Comment on above: Performed By: #### B MP, TSH #### [facility] [address] [place] [address] Dr. Reema Mireles Neutrophils/100 WBC (Bld) 61.9 % Normal 43.0-75.0 [facility] Comment on above: Performed By: #### B MP, TSH #### [facility] [address] [place] [address] Dr. Reema Mireles Platelet mean volume (Bld) [Entitic vol] 10.2 fL Normal 9.5-13.5 [facility] Comment on above: Performed By: #### B MP, TSH #### [facility] [address] [place] [address] Dr. Reema Mireles PLT 382 103/ul Normal 150-450 [facility] Comment on above: Performed By: #### B MP, TSH #### [facility] [address] [place] [address] Dr. Reema Mireles RBC 4.32 106/ul Normal 4.20-5.40 [facility] Comment on above: Performed By: #### B MP, TSH #### [facility] [address] [place] [address] Dr. Reema Mireles WBC 9.6 103/ul Normal 4.0-11.0 [facility] Comment on above: Performed By: #### B MP, TSH #### [facility] [address] [place] [address] Dr. Reema Mireles CRPon 08-11-2022 CRP [Mass/Vol] mg/L Normal <=1.0 [facility] Comment on above: Performed By: #### B MP, TSH #### [facility] [address] [place] [address] Dr. Reema Mireles ER URINE PROFILEon Bilirubin Ql (U) Negative Normal NEGATIVE [facility] Comment on above: Performed By: #### B MP, TSH #### [facility] [address] [place] [address] Dr. Reema Mireles Clarity (U) CLEAR Normal CLEAR [facility] Comment on above: Performed By: #### B MP, TSH #### [facility] [address] [place] [address] Dr. Reema Mireles Color (U) LT. YELLOW Normal YELLOW [facility] Comment on above: Performed By: #### B MP, TSH #### [facility] [address] [place] [address] Dr. Reema ELIZALDE A micrscopic examination will be performed if indicated. Normal [facility] Comment on above: Performed By: #### B MP, TSH #### [facility] [address] [place] [address] Dr. Reema Mireles Glucose Ql (U) Negative Normal NEGATIVE [facility] Comment on above: Performed By: #### B MP, TSH #### [facility] [address] [place] [address] Dr. Reema Mireles Hemoglobin Ql (U) Negative Normal NEGATIVE [facility] Comment on above: Performed By: #### B MP, TSH #### [facility] [address] [place] [address] Dr. Reema Mireles Ketones Ql (U) Negative Normal NEGATIVE [facility] Comment on above: Performed By: #### B MP, TSH #### [facility] [address] [place] [address] Dr. Reema Mireles LEUKOCYTES Negative Normal NEGATIVE [facility] Comment on above: Performed By: #### B MP, TSH #### [facility] [address] [place] [address] Dr. Reema Mireles Nitrite Ql (U) Negative Normal NEGATIVE [facility] Comment on above: Performed By: #### B MP, TSH #### [facility] [address] [place] [address] Dr. Reema Mireles pH (U) 5.5 [pH] Normal 5-9 [facility] Comment on above: Performed By: #### B MP, TSH #### [facility] [address] [place] [address] Dr. Reema Mireles SPEC GRAVITY <=1.005 Abnormal 1.005-<=1.025 [facility] Comment on above: Performed By: #### B MP, TSH #### [facility] [address] [place] [address] Dr. Reema Mireles UA PROTEIN Negative Normal NEGATIVE/ TRACE [facility] Comment on above: Performed By: #### B MP, TSH #### [facility] [address] [place] [address] Dr. Reema Mireles UR MICRO IND NOT INDICATED Normal [facility] Comment on above: Performed By: #### B MP, TSH #### [facility] [address] [place] [address] Dr. Reema Mireles Urobilinogen Qn (U) 0.2 {Renny'U}/dL Normal 0.2 - 1. 0 [facility] Comment on above: Performed By: #### B MP, TSH #### [facility] [address] [place] [address] Dr. Reema Mireles LIPASEon 08-11-2022 Lipase [Catalytic activity/Vol] 71.0 U/L Critically low 73.0-393.0 [facility] Comment on above: Performed By: #### B MP, TSH #### [facility] [address] [place] [address] Dr. Reema Mireles URon 08-11-2022 , QUAL Negative Normal NEGATIVE [facility] Comment on above: Performed By: #### C VDTBH #### [facility] [address] [place] [address] Dr. Reema Mireles PROF 14(COMP METB)on 022 Albumin [Mass/Vol] 4.3 g/dL Normal 3.4-5.0 [facility] Comment on above: Performed By: #### B GURPREET, TSH #### [facility] [address] [place] [address] Dr. Reema Mireles Albumin/Globulin [Mass ratio] 1.2 {ratio} Normal [facility] Comment on above: Performed By: #### B GURPREET, TSH #### [facility] [address] [place] [address] Dr. Reema Mireles ALP [Catalytic activity/Vol] 70 U/L Normal 46-116 [facility] Comment on above: Performed By: #### B GURPREET, TSH #### [facility] [address] [place] [address] Dr. Reema Mireles ALT [Catalytic activity/Vol] 16 U/L Normal 14-59 [facility] Comment on above: Performed By: #### B GURPREET, TSH #### [facility] [address] [place] [address] Dr. Reema Mireles Anion gap [Moles/Vol] 10.5 mmol/L Normal [facility] Comment on above: Performed By: #### B MP, TSH #### [facility] [address] [place] [address] Dr. Reema Mireles AST [Catalytic activity/Vol] 8 U/L Critically low 15-37 [facility] Comment on above: Performed By: #### B GURPREET, TSH #### [facility] [address] [place] [address] Dr. Reema Mireles Bilirubin [Mass/Vol] 0.3 mg/dL Normal 0.2-1.0 [facility] Comment on above: Performed By: #### B GURPREET, TSH #### [facility] [address] [place] [address] Dr. Reema Mireles Calcium [Mass/Vol] 9.0 mg/dL Normal 8.5-10.1 [facility] Comment on above: Performed By: #### B MP, TSH #### [facility] [address] [place] [address] Dr. Reema Mireles Chloride [Moles/Vol] 104 mmol/L Normal 98-107 [facility] Comment on above: Performed By: #### B GURPREET, TSH #### [facility] [address] [place] [address] Dr. Reema Mireles CO2 [Moles/Vol] 26.5 mmol/L Normal 21.0-32.0 [facility] Comment on above: Performed By: #### B GURPREET, TSH #### [facility] [address] [place] [address] Dr. Reema Mireles Creatinine [Mass/Vol] 0.79 mg/dL Normal 0.55-1.02 [facility] Comment on above: Performed By: #### B GURPREET, TSH #### [facility] [address] [place] [address] Dr. Reema Mireles EGFR-AF CHINESE >60 Normal >=60 [facility] Comment on above: Performed By: #### B GURPREET, TSH #### [facility] [address] [place] [address] Dr. Reema Mireles EGFR-NON AF CHINESE >60 Normal >=60 [facility] Comment on above: Performed By: #### B GURPREET, TSH #### [facility] [address] [place] [address] Dr. Reema Mireles Globulin (S) [Mass/Vol] 3.5 g/dL Normal [facility] Comment on above: Performed By: #### B GURPREET, TSH #### [facility] [address] [place] [address] Dr. Reema Mireles Glucose [Mass/Vol] 106 mg/dL Normal 74-106 [facility] Comment on above: Performed By: #### B MP, TSH #### [facility] [address] [address] [address] Reema Mireles Potassium [Moles/Vol] 3.0 mmol/L Critically low 3.5-5.1 [facility] Comment on above: Performed By: #### B MP, TSH #### [facility] [address] [place] [address] Dr. Reema Mireles Protein [Mass/Vol] 7.8 g/dL Normal 6.4-8.2 [facility] Comment on above: Performed By: #### B MP, TSH #### [facility] [address] [place] [address] Dr. Reema Mireles Sodium [Moles/Vol] 138 mmol/L Normal 136-145 [facility] Comment on above: Performed By: #### B MP, TSH #### [facility] [address] [place] [address] Dr. Reema Mireles Urea nitrogen [Mass/Vol] 8.0 mg/dL Normal 7.0-18.0 [facility] Comment on above: Performed By: #### B MP, TSH #### [facility] [address] [place] [address] Dr. Reema Mireles Urea nitrogen/Creatinine [Mass ratio] 10.1 mg/mg Normal [facility] Comment on above: Performed By: #### B MP, TSH #### [facility] [address] [place] [address] Dr. Reema Mireles PROTIMEon 08-11-2022 INR Coag (PPP) [Relative time] 1.00 {INR} Normal [facility] Comment on above: Performed By: #### P T, PTT #### [facility] [address] [place] [address] Dr. Reema Mireles INR GUIDELINES SEE BELOW Normal [facility] Comment on above: Result Comment: FELICIANO RED INR: 2.0 - 3.0 CONDITIONS NOT LISTED BELOW 2.5 - 3.5 FOR PROSTHETIC HEART VALVE REPLACEMENT 2.5 - 3.5 RECURRENT THROMBOSIS Performed By: #### P T, PTT #### [facility] [address] [place] [address] Dr. Reema Mireles PT Coag (PPP) [Time] 10.8 s Normal 9.0-11.6 [facility] Comment on above: Performed By: #### P T, PTT #### [facility] [address] [place] [address] Dr. Reema Mireles PTTon 08-11-2022 aPTT Coag (Bld) [Time] 30.8 s Normal 22.3-36.2 [facility] Comment on above: Performed By: #### P T, PTT #### [facility] [address] [place] [address] Dr. Reema Mireles [facility] 10 mm/hr Normal <=20 [facility] Comment on above: Performed By: #### B MP, TSH #### [facility] [address] [place] [address] Dr. Reema Mireles TSHon 08-11-2022 TSH 3.313 uIU/mL Normal 0.358-3.740 [facility] Comment on above: Performed By: #### B MP, TSH #### [facility] [address] [place] [address] Dr. Reema Mireles Discharge Instructionson Discharge Instructions [id number] Normal [facility] Comment on above: Other Comment: wrong patient STOOL CULTUREon 04-20-2022 Campylobacter Culture Final report Normal [facility] Comment on above: Performed By: #### B MP, TSH #### [facility] [address] [place] [address] Dr. Reema Mireles E coli Shiga Toxin EIA Negative Normal Negative [facility] Comment on above: Performed By: #### B MP, TSH #### [facility] [address] [place] [address] Dr. Reema Mireles Result 1 Comment Normal [facility] Comment on above: Result Comment: No S almonella or Shigella recovered. Performed By: #### B MP, TSH #### [facility] [address], [place] [address] Dr. Reema Mireles Result Comment: No C ampylobacter species isolated. Salmonella/Shigella Screen Final report Normal [facility] Comment on above: Performed By: #### B MP, TSH #### [facility] [address], [place] [address] Dr. Reema Mireles Coding Summary.on 04-14-2022 Coding Summary. CD:[id number] G h0bWw+PGhlYWQ+RV1OQOL zB01uxWEgkK0TM7gQYU1X JLTVPRHSTT9DPV3quRG9R HfnN2QujrIt NshtjWGrRA41ZXx0NWV4p QzsENxyhH6npNObX4z1Wx PuWW31vA74TPbvTGAmGsS 3LjZpbjsgbWFy P9bjIcIssWXzVcy+PHRhY mxlIHdpZHRoPScxMDAlJy ZlqYjuFF7pMc4pFEOxMEU vbGxhcHNlOiBj h3reMKWxVKdiWY1wuDnvR 5QfmCY2JGOks4e8Pm01iH I+ARGkGVO7mBzaIBrla94 2YnXtz8csNEW9 kTOnFPjeVNG3H38tk9F6R VSkAFUcTNN8fNB4iI5vhO aqzsrsE1CpwBPrLgE1QTG 7mOHszX5vwOko bsbbiA2sBbd+Z96AOY5UV HNTNF8BAsn8D5GyQfgayE I+BH67TSJqUJ80kOVflPE ej1wxeVp1UaZf QKTjOVO6bAmwBJeoz5XgS XJpP88szSAad3W9XDGsaM tmfCPeYyMjxUM4yZ1eOAb tyobsg0oofgyu Ofsfw6jpyw62qB74W63rT YqzSNQlXYA3YCGwIHModH bgqy6xnR3mRf7+ODoeu0w ze9nceOt3DuVv IPXhilQveYnbTWF0f1LrJ c93Q0GppXulm0LmNzq2ca 94zKNda6V1zWO6XSrjRGJ feT9cMNxqFdB4 TTOxPoExjM43vMFnSZrjN h0alGaciUtjCM7sWNTtgc ycNGNhyW8zEAJcrNWdzZn vDS2gJHAigset q286BfHaLBP3WQOsiWLeX 1QbuT6bNiNjJZEoPHWuR8 ShlQCnSEidY957DNmrCyT 8ZXSvbgUrC0Tl SDEusYyrWvS6j5U3Bu1Aj 2FdaizcMFQ9XRkbRZD3Uv W3EpJkGnT1U2VeDhy1RAR xaIexYC9tI6Zq WLOfknyfhmsolDH5EZCgU WOruA84cUKbQZduPa2sc3 U1d960PHHgDCFdxS29Bj3 udDogMTBwdCBU hS2xnbrxl0dijwowUaBlD RIlPTs9XDm4YDDwxLviIx KuQDO4QjM5RRE8aHDqiG5 jkZlcwxdxjI5l Oyc+A55kbG3yDNH0TIT6e dnrZQSddpLkBB75ZN35N9 RyPjwvdGFibGU+PGRpdiB nmLamAX6dAjCl o7fso0EuAXffR4NyIWIdE XwgAdr2BYBpCID9bCP0pM 9oJDYbLFrpj8T9xWN1J5U gorUhqi0qt5iq AHZsDYglE32mwAMbm1X7J VJhbAF7NFCzuWyjFzIvvR 93Oyc+JDClqTqng4KxWqc ul1ydd0papDs8 OcNdMQJumpOpdRgsYPB6i 6BvWh95E42gJUzxJAZqUF SdFLSfSQQhlFnqxl4kjE1 wIi8+PGNvbCB3 nDF6uE9fMRCfSdV9AMpcM 718YbArbYWzVwecj9wml9 rpoWa1OeLbWBMduqTynKj sZXV5q9IeGz43 M45zGErgPSPuQIAvDCIsD MPxvBaxdo7rqY1tMg4+PC 1lr4zruk13kE67mXX+PHR aUOT4kCmeJCbh XFKwzW7rHHbgNwD7SKCpM pWjgL71cAOnFWjaDu8ydH rmnIprZK0kUNFwfkyjq78 4QoZwl1yxJLOg yZRtSPljKFH1O78pj9A7O EIjVIRdKIZ4fTN1qB3rnU lnbjogbGVmdDsgdmVydGl gWBmdFRxhM896 IHRvcDsnPlBhdGllbnQgT yBuULj0B9ZmMho4VFTsxS ywBH3qiLBySDgtKe0boAr uhPrkIM9eAEKw vknwx191GvMir0tpSPNgi DKwPPwsWDQ9U76dg0I1WG ArNUHjMHC6qJH8mT3vmRf nbjogbGVmdDsg kjAmyUemOXcaWDbyD820D HRvcDsnPkJpcnRoIERhdG P2OC77JP10gFXom0O0gMT 9R8LoUPMduofm ownbsJX1BFBkRYHvpX08K v2ceZfkLk3mKMIjIXG1CU VyoUFiA7DurJ7oWyKiSZL tZBMwE1RwsDRo PXenL957SWadJdM3GITlr sNjV6MfHHOncWtrWwI0p8 A9Iu2WH9K6WT83AT25xSL jq0C2lYL5I4Ln WXVwsgugxzcatYV2DDYwY XKquQ31Il1jgYzyUj9aBN FnGMX1WMJodNIkU6LxkT8 yOiAjMDAwMDAw S6EcnNNtCJtrC929BFtdP fK5CEHxmhXzX7ZxFFNfyE kpPiU5j8M9Pk2RWRc2ST5 1LU74mICjh1Q3 fFR4N2LeGAUfxklunsvyn ZD4ABJuCARfoP84Vg7zxY obDx8zCEDwIML1ACJgoRG dT5AnkX6cYmVi JICpARHeZ6KocYZqMCwfG 783VQzyOfB5EYHhsyHuR1 VsVTLlgXdrZyU7n2E1Ku0 BVXJkEA82LER5 uUX9FJ81UV43G8VsHfwac GFibGU+PHRhYmxlIHdpZH RoPScxMDAlJyBzdHlsZT0 hUa7tQWCoHZMh kRvywGTaIiNjj8wdDAVvX CauPL0jyEkgH2LolMI0CR Wel7b7Kp64Y51rO0MczPB +KGVpiPC1qIE3 eD0bNyIiXgA8NGhlJ693B rTnyBDnXetrq5wcq5grxJ x0NiA8GKWebvDkuGvlJOB 5v3AzHl61A64m IHdpZHRoPSIxNSUiIHZhb Jpzvu1hvA3iAf3+PGNvbC Q9bSU3aP9hSbSyEpA9KPi oO478GoPggQZd Bwciu7ofd4hqvJe0WiSsN KIatfKajEdmYIQ9k7BaOv 73O7PnsXhva1LoHxv3th7 7gIFtl1J8lUO5 N7SqSCLxtdjuoZHcvXkoI J2oTKYdmxzzIGEajX7kZB IoA5b0IePrSgT2RFwmH5K qjmT5UNNhgNEr IDeaGWC0E31ry7H5HKKcT YVlUTB3tOL8zT7dvEycsd ogbGVmdDsgdmVydGljYWw fYPrrC690FZKs sSleKMMshY6qOMSloXAxz HppOS9kHUQutyguAjhWQJ GQB25MK7xAUEZAPOBOBVB 7F7YkMkf0CQEo wGxgFY3wdKToOTndKs6zp QgcqCgmSG4iHDFktppyXK WmmL0qKCSwaNEejYfzQR6 dAJIxnqehr224 GsKjRRD5PWStgKUcX7Upp M7oKrAhEEMwHBOpO0SzlA SyXYbpV408PXpdQvS3BMM mizLtR0WqXJYw yNiuQfK8h7B3Yj7fFj0zS Y5zEVYgLG24CM95nQLwt4 I8eTN8G7EcWWUvnhibpyp vcSL8VJYfMUJc gV36fAPqJMpmHy7ey9I6f 365IKQmUBCcmS84Vz5epZ pzLGBaiIJDfT0toynsw0d vcjogIzAwMDAw YWz3OZk5OCQmxCziMiGrQ BY0UtD9MHH9gDPwvK0ycB uqozcjcJ4aNmw+MjAgWWV rszM7K8FiBjq2 KJEkiCdrDF2ltTBsORkmR i5gvAjmbOzoIY5vYNBmpe kiHKQttP6kHKRtqJTxoWg jXH5eUYVneoee h946SkDoDYS8VCVdzJTfT 3OipM2nLdIcVLPmZTLmU1 MmiEYjOCykL112SNswOfE 8BSSejzKcL6Db DRTzbDvoYiB9p9R1Bl7TB Z9nvJZ4X3BcTpt3DXUahR vfQA2auONjJCyiMs9glQw ufEzsCP3rYOPg ywpeADYnaK8rKIMweKLqs BwhRQ2qJXYhzxpwc419Gd QfQTY9WMUtvVQyT1CkeH5 yOiAjMDAwMDAw F3BhnANmLSgtH475LIbpY zK6SDEwkiKeM6KnYWPppJ kjCjA3g2B7Ux5QnQLiM0H bP1b3C6RnUmbs dHI+QY64BHFfWS58sFUau ZOjx8yuaIt4PiWrADNzYL N9nVxoDFlda8JdUTSwN26 ecRXfq4A4AIWb oNdpqNDpHzAblTS7mS2gL Ickbdrgs1mbcizxZyxsy4 tyjt92aH42N09gDQdsABG oPSIzMCUiIHZh iNzofu9aoX6aWf0+PGNvb AU1qHK3rH8gDzToVsK4QF lsI065MjQamFZoYozck9r eo8jubKf8ArQe YEIbnpMzsCxrJAN3t4WrZ r70X42dNVfnLQCiKOUtEK UxHKTnyAlunh2wpN4qOk7 +VH6tb1dpvu39 bC75gQA+CHKkMTG1lJosD PujKKIkgF6cMIjmJjT9MH JoLjBffN04vHKqLTlyUp3 ndBowfXmdDN4c ZDFxvgvpv086XaAxo9ajT FFgjLAlHDgyGHW3A81ix2 B5NUBvMIPbIZQ6vWF0kF9 hbGlnbjogbGVm dDsgdmVydGljYWwtYWxpZ 496QEBdjDycSoHqkDFaF8 olcaRUTN0nZkixbZV+PHR ePNN8lVyoARda EZKzaE7lZRFmI5w7CgKuW pT2SAkfS7IwyfL7ENKbiR YzUMJxjJVZrT9qpzwgi2r vcjogIzAwMDAw BVx8VNk1UVEyuAcwCsBtS HW4AyL2XDS4rUZgbP3pcI ajusydyM4sKyo+RklOOjw vdGQ+PHRkIHN0 fKokOTxwCVSbpH2rBGCvI 8z7AqBoFhX6PPilJ8Jcju B7IUIyaDFzIIDrnZHQdV7 kblctg7aosyjk EjSmZGUcHCj9FRe0JQXxy QdcVpYzGED0RgP4DRJ0aF YnsZ7dcZivfkdaxX0mFfx +TVJOOjwvdGQ+ YKHbHBW0wOafOCwrOJRat E2mEXLjZ9r5JiEuFxE3PO pjL4WrgbQ4LNQklERuYFW ogLAMoC7zqpyy g9igsepyKkQaBKEeOJa0H Kv7NFLgyPouUsKjJLJ1Ay X0CYM5uTIxwZ9igVzkvfr kyH9eJqi+UGF5 TWF3QA43WU98W2IfPindw GFibGU+PHRhYmxlIHdpZH RoPScxMDAlJyBzdHlsZT0 uVe2vNVTiDIRz bGxh (more content not included)... Normal [facility] CBC AUTO DIFFon 04-13-2022 BASO # 0.1 103/ul Normal 0.0-0.1 [facility] Comment on above: Performed By: #### C VDTBH #### [facility] [address] [address] [address] Reema Mireles Basophils/100 WBC (Bld) 0.6 % Normal 0.2-2.0 [facility] Comment on above: Performed By: #### C VDTBH #### [facility] [address] [address] [address] Reema Mireles EO # 0.0 103/ul Normal 0.0-0.7 [facility] Comment on above: Performed By: #### C VDTBH #### [facility] [address] [address] [address] Reema Mireles Eosinophils/100 WBC (Bld) 0.2 % Critically low 0.9-7.0 [facility] Comment on above: Performed By: #### C VDTBH #### [facility] [address] [place] [address] Dr. Reema Mireles Erythrocyte distribution width (RBC) [Ratio] 11.4 % Normal 11.0-15.0 [facility] Comment on above: Performed By: #### C VDTBH #### [facility] [address] [place] [address] Dr. Reema Mireles Hematocrit (Bld) [Volume fraction] 38.3 % Normal 36.0-48.0 [facility] Comment on above: Performed By: #### C VDTBH #### [facility] [address] [place] [address] Dr. Reema Mireles Hemoglobin (Bld) [Mass/Vol] 13.4 g/dL Normal 12.0-16.0 [facility] Comment on above: Performed By: #### C VDTBH #### [facility] [address] [place] [address] Dr. Reema Mireles IG # 0.01 10e3/ul Normal 0.00-0.03 [facility] Comment on above: Performed By: #### C VDTBH #### [facility] [address] [place] [address] Dr. Reema Mireles IG % 0.1 % Normal 0.0-0.5 [facility] Comment on above: Performed By: #### C VDTBH #### [facility] [address] [place] [address] Dr. Reema Mireles LYMPH # 1.8 103/ul Normal 1.2-3.8 [facility] Comment on above: Performed By: #### C VDTBH #### [facility] [address] [place] [address] Dr. Reema Mireles Lymphocytes/100 WBC (Bld) 22.2 % Normal 20.5-60.0 [facility] Comment on above: Performed By: #### C VDTBH #### [facility] [address] [place] [address] Dr. Reema Mireles MANUAL DIFF REQ NO Normal [facility] [place] Comment on above: Performed By: #### C VDTBH #### [facility] [address] [place] [address] Dr. Reema Mireles MCH (RBC) [Entitic mass] 30.6 pg Normal 26.7-34.0 [facility] Comment on above: Performed By: #### C VDTBH #### [facility] [address] [place] [address] Dr. Reema Mireles MCHC (RBC) [Mass/Vol] 35.0 g/dL Normal 29.9-35.2 [facility] Comment on above: Performed By: #### C VDTBH #### [facility] [address] [place] [address] Dr. Reema Mireles MCV (RBC) [Entitic vol] 87.4 fL Normal 81.0-99.0 [facility] Comment on above: Performed By: #### C VDTBH #### [facility] [address] [place] [address] Dr. Reema Mireles MONO # 0.7 103/ul Normal 0.3-0.8 [facility] Comment on above: Performed By: #### C VDTBH #### [facility] [address] [place] [address] Dr. Reema Mireles Monocytes/100 WBC (Bld) 8.2 % Normal 1.7-12.0 [facility] Comment on above: Performed By: #### C VDTBH #### [facility] [address] [place] [address] Dr. Reema Mireles NEUT # 5.5 103/ul Normal 1.4-6.5 [facility] Comment on above: Performed By: #### C VDTBH #### [facility] [address] [place] [address] Dr. Reema Mireles Neutrophils/100 WBC (Bld) 68.7 % Normal 43.0-75.0 [facility] Comment on above: Performed By: #### C VDTBH #### [facility] [address] [place] [address] Dr. Reema Mireles Platelet mean volume (Bld) [Entitic vol] 10.1 fL Normal 9.5-13.5 [facility] Comment on above: Performed By: #### C VDTBH #### [facility] [address] [place] [address] Dr. Reema Mireles PLT 404 103/ul Normal 150-450 [facility] Comment on above: Performed By: #### C VDTBH #### [facility] [address], [place] [address] Dr. Reema Mireles RBC 4.38 106/ul Normal 4.20-5.40 [facility] Comment on above: Performed By: #### C VDTBH #### [facility] [address], [place] [address] Dr. Reema Mireles WBC 8.0 103/ul Normal 4.0-11.0 [facility] Comment on above: Performed By: #### C VDTBH #### [facility] [address], [place] [address] HEAD WO CONon [...] CARLOS Date: 2022-04-13 16:29 Normal [facility] Discharge Instructionson Discharge Instructions [id number]:127 Normal [facility] ED Note-Physicianon 04-13-20 22 ED Note-Physician Basic Information Time Seen: Lata Hardy M.D. 04/12/2022 19:56 Chief Complaint Pt. presents to the ed with c/o headache and vertigo since thursday. Pt. was seen [facility] and started on prednisone. pt. stopped taking [...] The patient states she was seen at [facility] discharged home. She went to urgent care [...] neurological deficit. She has been seen at [facility] and started on prednisone. Possible her symptoms [...] ADRYAN MARIE In 3 days 04/15/[address] [place], [place] [id number] [facility] (1) Additional Instructions: Return to the [...] Diagnostic Results No qualifying data available. Normal [facility] Comment on above: Result Comment: Elec tronically Signed By: Antony Villa, Lata H\.br\Date and Time Signed: 04/13/22 04:56 EDT ER URINE PROFILEon 2 Bilirubin Ql (U) Negative Normal NEGATIVE [facility] Comment on above: Performed By: #### P REGU, ERUR #### [facility] [address] [place] [address] Dr. Reema Mireles Clarity (U) CLEAR Normal CLEAR [facility] Comment on above: Performed By: #### P REGU, ERUR #### [facility] [address] [address] [address] Reema Mireles Color (U) LT. YELLOW Normal YELLOW [facility] Comment on above: Performed By: #### P REGU, ERUR #### [facility] [address] [place] [address] Dr. Reema Mireles ERUAHD A micrscopic examination will be performed if indicated. Normal [facility] Comment on above: Performed By: #### P REGU, ERUR #### [facility] [address] [address] [address] Reema Mireles Glucose Ql (U) Negative Normal NEGATIVE [facility] Comment on above: Performed By: #### P REGU, ERUR #### [facility] [address] [address] [address] Reema Mireles Hemoglobin Ql (U) Negative Normal NEGATIVE [facility] Comment on above: Performed By: #### P REGU, ERUR #### [facility] [address] [address] [address] Reema Mireles Ketones Ql (U) Negative Normal NEGATIVE [facility] Comment on above: Performed By: #### P REGU, ERUR #### [facility] [address] [place] [address] Dr. Reema Mireles LEUKOCYTES Negative Normal NEGATIVE [facility] Comment on above: Performed By: #### P REGU, ERUR #### [facility] [address] [address] [address] Reema Mireles Nitrite Ql (U) Negative Normal NEGATIVE [facility] Comment on above: Performed By: #### P REGU, ERUR #### [facility] [address] [place] [address] Dr. Reema Mireles pH (U) 6.5 [pH] Normal 5-9 [facility] Comment on above: Performed By: #### P REGU, ERUR #### [facility] [address] [address] [address] Reema Mireles SPEC GRAVITY 1.005 Normal 1.005-<=1.025 [facility] Comment on above: Performed By: #### P REGU, ERUR #### [facility] [address] [place] [address] Dr. Reema Mireles UA PROTEIN Negative Normal NEGATIVE/ TRACE [facility] Comment on above: Performed By: #### P REGU, ERUR #### [facility] [address] [address] [address] Reema Mireles UR MICRO IND NOT INDICATED Normal [facility] Comment on above: Performed By: #### P REGU, ERUR #### [facility] [address] [place] [address] Dr. Reema Mireles Urobilinogen Qn (U) 0.2 {Renny'U}/dL Normal 0.2 - 1. 0 [facility] Comment on above: Performed By: #### P REGU, ERUR #### [facility] [address] [place] [address] Dr. Reema Mireles URon 04-13-2022 , QUAL Negative Normal NEGATIVE [facility] Comment on above: Performed By: #### P REGU, ERUR #### [facility] [address] [place] [address] Dr. Reema Mireles PROF CHEM 8 (BAS METB)on Anion gap [Moles/Vol] 14.0 mmol/L Normal [facility] Comment on above: Performed By: #### B MP, TSH #### [facility] [address] [place] [address] Dr. Reema Mireles Calcium [Mass/Vol] 9.2 mg/dL Normal 8.5-10.1 [facility] Comment on above: Performed By: #### B MP, TSH #### [facility] [address] [place] [address] Dr. Reema Mireles Chloride [Moles/Vol] 102 mmol/L Normal 98-107 [facility] Comment on above: Performed By: #### B MP, TSH #### [facility] [address] [place] [address] Dr. Reema Mireles CO2 [Moles/Vol] 26.3 mmol/L Normal 21.0-32.0 [facility] Comment on above: Performed By: #### B MP, TSH #### [facility] [address] [place] [address] Dr. Reema Mireles Creatinine [Mass/Vol] 0.65 mg/dL Normal 0.55-1.02 [facility] Comment on above: Performed By: #### B MP, TSH #### [facility] [address] [address] [address] Reema Mireles EGFR-AF CHINESE >60 Normal >=60 [facility] Comment on above: Performed By: #### B GURPREET, TSH #### [facility] [address] [address] [address] Reema Mireles EGFR-NON AF CHINESE >60 Normal >=60 [facility] Comment on above: Performed By: #### B GURPREET, TSH #### [facility] [address] [address] [address] Reema Mireles Glucose [Mass/Vol] 92 mg/dL Normal 74-106 [facility] Comment on above: Performed By: #### B GURPREET, TSH #### [facility] [address] [place] [address] Dr. Reema Mireles Potassium [Moles/Vol] 3.3 mmol/L Critically low 3.5-5.1 [facility] Comment on above: Performed By: #### B GURPREET, TSH #### [facility] [address] [place] [address] Dr. Reema Mireles Sodium [Moles/Vol] 139 mmol/L Normal 136-145 [facility] Comment on above: Performed By: #### B GURPREET, TSH #### [facility] [address] [place] [address] Dr. Reema Mireles Urea nitrogen [Mass/Vol] 8.0 mg/dL Normal 7.0-18.0 [facility] Comment on above: Performed By: #### B GURPREET, TSH #### [facility] [address] [place] [address] Dr. Reema Mireles Urea nitrogen/Creatinine [Mass ratio] 12.3 mg/mg Normal [facility] Comment on above: Performed By: #### B GURPREET, TSH #### [facility] [address] [place] [address] Dr. Reema Mireles TSHon 04-13-2022 TSH 1.293 uIU/mL Normal 0.358-3.740 [facility] Comment on above: Performed By: #### B GURPREET, TSH #### [facility] [address] [place] [address] Dr. Reema Mireles Consent for Treatmenton 03-28 Consent for Treatment [id number]:127 Normal [facility] ED Clinical Summaryon 2021 ED Clinical Summary [address] [address] ED Clinical Summary Person Information Name: JUANPABLO CHAPARRO/[facility] Age: 21 Years : 2000 Sex: Female Language: Hungarian PCP: ADRYAN MARIE MD Marital Status: Single Phone: [phone] Visit Id: Visit Reason: Vertigo - recurrent; [...] 04/12/2022 21:07:38 04/12/2022 21:07:38 04/12/2022 21:07:38 ADDRESS: [address] [place] [id number] PHYS DOC NOTES: MEDICAL INFORMATION: Prescriptions Given: PATIENT EDUCATION INFORMATION: Instructions: General Headache Without Cause; Vertigo Follow up: With: Address: When: ADRYAN MARIE [address] [place], [place] [id number] Business (1) In 3 days 04/15/2022 Comments: Return to the emergency room if her headache gets worse, vertigo becomes persistent or any new symptoms DIAGNOSIS: 1:Vertigo; 2:Headache Normal [facility] ED Patient Education Noteon 04-12-2022 ED [...] you feel dizzy. General instructions ? Take hrfw-iud-wahjeoz and prescription medicines only as told by [...] Document Reviewed: 08/08/2019 Elsevier Patient Education ? 2019 [employer] Neurology General Headache Without Cause A [...] with your condition: Managing pain ? Take sxnb-lcn-gdxyjmk and prescription medicines only as told by [...] of beer (more content not included)... Normal [facility] ED Patient Summaryon 022 ED Patient Summary [place] [id number] Patient Discharge Instructions Person Information Name: JUANPABLO CHAPARRO Age: 21 Years Arrival Date: 04/12/2022 19:22:40 Discharge Diagnosis: 1:Vertigo; 2:Headache Primary Care Physician: ADRYAN AMRIE MD Provider Information Primary Provider: Lata Hardy M.D. Advanced Hydro Operator:None The exam and treatment you received in the Emergency Department were for an urgent problem and are not intended as complete care. It is important that you follow up with a doctor, nurse practitioner, or physician?s custody assistant for ongoing care. If your symptoms [...] Follow-up Instructions: With: Address: When: ADRYAN MARIE [address] [place] [address] [facility] () In 3 days 04/15/2022 Comments: Return to [...] opioids can be used to help relieve niknpouc-st-ylxhhw pain and are often prescribed following a [...] addiction, tel (more content not included)... Normal [facility] CBC AUTO DIFFon 04-09-2022 BASO # 0.1 103/ul Normal 0.0-0.1 [facility] Comment on above: Performed By: #### B MP, TSH #### [facility] [address] [place] [address] Dr. Reema Mireles Basophils/100 WBC (Bld) 0.5 % Normal 0.2-2.0 [facility] Comment on above: Performed By: #### B MP, TSH #### [facility] [address] [place] [address] Dr. Reema Mireles EO # 0.1 103/ul Normal 0.0-0.7 [facility] Comment on above: Performed By: #### B MP, TSH #### [facility] [address] [place] [address] Dr. Reema Mireles Eosinophils/100 WBC (Bld) 1.0 % Normal 0.9-7.0 [facility] Comment on above: Performed By: #### B GURPREET, TSH #### [facility] [address] [place] [address] Dr. Reema Mireles Erythrocyte distribution width (RBC) [Ratio] 11.7 % Normal 11.0-15.0 [facility] Comment on above: Performed By: #### B GURPREET, TSH #### [facility] [address] [place] [address] Dr. Reeam Mireles Hematocrit (Bld) [Volume fraction] 37.2 % Normal 36.0-48.0 [facility] Comment on above: Performed By: #### B MP, TSH #### [facility] [address] [place] [address] Dr. Reema Mireles Hemoglobin (Bld) [Mass/Vol] 12.8 g/dL Normal 12.0-16.0 [facility] Comment on above: Performed By: #### B MP, TSH #### [facility] [address] [place] [address] Dr. Reema Mireles IG # 0.02 10e3/ul Normal 0.00-0.03 [facility] Comment on above: Performed By: #### B MP, TSH #### [facility] [address] [place] [address] Dr. Reema Mireles IG % 0.2 % Normal 0.0-0.5 [facility] Comment on above: Performed By: #### B MP, TSH #### [facility] [address] [place] [address] Dr. Reema Mireles LYMPH # 1.8 103/ul Normal 1.2-3.8 [facility] Comment on above: Performed By: #### B MP, TSH #### [facility] [address] [place] [address] Dr. Reema Mireles Lymphocytes/100 WBC (Bld) 19.0 % Critically low 20.5-60.0 [facility] Comment on above: Performed By: #### B MP, TSH #### [facility] [address] [place] [address] Dr. Reema Mireles MANUAL DIFF REQ NO Normal [facility] Comment on above: Performed By: #### B MP, TSH #### [facility] [address] [place] [address] Dr. Reema Mireles MCH (RBC) [Entitic mass] 30.4 pg Normal 26.7-34.0 [facility] Comment on above: Performed By: #### B MP, TSH #### [facility] [address] [place] [address] Dr. Reema Mireles MCHC (RBC) [Mass/Vol] 34.4 g/dL Normal 29.9-35.2 [facility] Comment on above: Performed By: #### B MP, TSH #### [facility] [address] [place] [address] Dr. Reema Mireles MCV (RBC) [Entitic vol] 88.4 fL Normal 81.0-99.0 [facility] Comment on above: Performed By: #### B MP, TSH #### [facility] [address] [place] [address] Dr. Reema Mireles MONO # 0.7 103/ul Normal 0.3-0.8 [facility] Comment on above: Performed By: #### B MP, TSH #### [facility] [address] [place] [address] Dr. Reema Mireles Monocytes/100 WBC (Bld) 6.8 % Normal 1.7-12.0 [facility] Comment on above: Performed By: #### B GURPREET, TSH #### [facility] [address] [place] [address] Dr. Reema Mireles NEUT # 7.0 103/ul Critically high 1.4-6.5 [facility] [facility] Comment on above: Performed By: #### B GURPREET, TSH #### [facility] [address] [place] [address] Dr. Reema Mireles Neutrophils/100 WBC (Bld) 72.5 % Normal 43.0-75.0 [facility] Comment on above: Performed By: #### B GURPREET, TSH #### [facility] [address] [place] [address] Dr. Reema Mireles Platelet mean volume (Bld) [Entitic vol] 10.3 fL Normal 9.5-13.5 [facility] Comment on above: Performed By: #### Inna VÁZQUEZ, TSH #### [facility] [address] [place] [address] Dr. Reema Mireles PLT 358 103/ul Normal 150-450 [facility] Comment on above: Performed By: #### B GURPREET, TSH #### [facility] [address] [place] [address] Dr. Reema Mireles RBC 4.21 106/ul Normal 4.20-5.40 [facility] Comment on above: Performed By: #### Inna VÁZQUEZ, TSH #### [facility] [address] [place] [address] Dr. Reema Mireles WBC 9.7 103/ul Normal 4.0-11.0 [facility] Comment on above: Performed By: #### B GURPREET, TSH #### [facility] [address] [place] [address] Dr. Reema Mireles CULTURE BLOODon 04-09-2022 Microscopic examination of blood, culture Culture Observations: NO GROWTH AT 5 DAYS. Normal [facility] Comment on above: Performed By: #### Inna VÁZQUEZ, TSH #### [facility] [address] [place] [address] Dr. Reema MILLER URINE PROFILEon 2 Bilirubin Ql (U) Negative Normal NEGATIVE [facility] Comment on above: Performed By: #### B MP, TSH #### [facility] [address] [place] [address] Dr. Reema Mireles Clarity (U) CLEAR Normal CLEAR [facility] Comment on above: Performed By: #### B MP, TSH #### [facility] [address] [place] [address] Dr. Reema Mireles Color (U) LT. YELLOW Normal YELLOW [facility] Comment on above: Performed By: #### B MP, TSH #### [facility] [address] [place] [address] Dr. Reema ELIZALDE A micrscopic examination will be performed if indicated. Normal [facility] Comment on above: Performed By: #### B MP, TSH #### [facility] [address] [place] [address] Dr. Reema Mireles Glucose Ql (U) Negative Normal NEGATIVE [facility] Comment on above: Performed By: #### B MP, TSH #### [facility] [address] [place] [address] Dr. Reema Mireles Hemoglobin Ql (U) TRACE-INTACT Abnormal NEGATIVE [facility] Comment on above: Performed By: #### B MP, TSH #### [facility] [address] [place] [address] Dr. Reema Mireles Ketones Ql (U) Negative Normal NEGATIVE [facility] Comment on above: Performed By: #### B MP, TSH #### [facility] [address] [place] [address] Dr. Reema Mireles LEUKOCYTES Negative Normal NEGATIVE [facility] Comment on above: Performed By: #### B MP, TSH #### [facility] [address] [place] [address] Dr. Reema Mireles Nitrite Ql (U) Negative Normal NEGATIVE [facility] Comment on above: Performed By: #### B MP, TSH #### [facility] [address] [place] [address] Dr. Reema Mireles pH (U) 5.5 [pH] Normal 5-9 [facility] Comment on above: Performed By: #### B MP, TSH #### [facility] [address] [place] [address] Dr. Reema Mireles SPEC GRAVITY <=1.005 Abnormal 1.005-<=1.025 [facility] Comment on above: Performed By: #### B MP, TSH #### [facility] [address] [place] [address] Dr. Reema Mireles UA PROTEIN Negative Normal NEGATIVE/ TRACE [facility] Comment on above: Performed By: #### B MP, TSH #### [facility] [address] [place] [address] Dr. Reema Mireles UR MICRO IND INDICATED Normal [facility] Comment on above: Performed By: #### B GURPREET, TSH #### [facility] [address] [place] [address] Dr. Reema Mireles Urobilinogen Qn (U) 0.2 {Renny'U}/dL Normal 0.2 - 1. 0 [facility] Comment on above: Performed By: #### B GURPREET, TSH #### [facility] [address] [place] [address] Dr. Reema Mireles LACTATE/LACTIC ACIDon 2021 Lactate [Moles/Vol] 2.2 mmol/L Critically high 0.4-1.9 [facility] Comment on above: Performed By: #### B GURPREET, TSH #### [facility] [address] [place] [address] Dr. Reema Mireles URon 04-09-2022 , QUAL Negative Normal NEGATIVE [facility] Comment on above: Performed By: #### B MP, TSH #### [facility] [address] [place] [address] Dr. Reema Mireles PROF 14(COMP METB)on 022 Albumin [Mass/Vol] 4.5 g/dL Normal 3.4-5.0 [facility] Comment on above: Performed By: #### C MP #### [facility] [address] [place] [address] Dr. eRema Mireles Albumin/Globulin [Mass ratio] 1.3 {ratio} Normal [facility] Comment on above: Performed By: #### C MP #### [facility] [address] [place] [address] Dr. Reema Mireles ALP [Catalytic activity/Vol] 83 U/L Normal 46-116 [facility] Comment on above: Performed By: #### C MP #### [facility] [address] [place] [address] Dr. Reema Mireles ALT [Catalytic activity/Vol] 26 U/L Normal 14-59 [facility] Comment on above: Performed By: #### C MP #### [facility] [address] [place] [address] Dr. Reema Mireles Anion gap [Moles/Vol] 14.9 mmol/L Normal [facility] Comment on above: Performed By: #### C MP #### [facility] [address] [place] [address] Dr. Reema Mireles AST [Catalytic activity/Vol] 12 U/L Critically low 15-37 [facility] Comment on above: Performed By: #### C MP #### [facility] [address] [place] [address] Dr. Reema Mireles Bilirubin [Mass/Vol] 0.3 mg/dL Normal 0.2-1.0 [facility] Comment on above: Performed By: #### C MP #### [facility] [address] [place] [address] Dr. Reema Mireles Calcium [Mass/Vol] 9.6 mg/dL Normal 8.5-10.1 [facility] Comment on above: Performed By: #### C MP #### [facility] [address] [place] [address] Dr. Reema Mireles Chloride [Moles/Vol] 103 mmol/L Normal 98-107 [facility] Comment on above: Performed By: #### C MP #### [facility] [address] [place] [address] Dr. Reema Mireles CO2 [Moles/Vol] 24.4 mmol/L Normal 21.0-32.0 [facility] Comment on above: Performed By: #### C MP #### [facility] [address] [address] [address] Reema Mireles Creatinine [Mass/Vol] 0.87 mg/dL Normal 0.55-1.02 [facility] Comment on above: Performed By: #### C MP #### [facility] [address] [address] [address] Reema Mireles EGFR-AF CHINESE >60 Normal >=60 [facility] Comment on above: Performed By: #### C MP #### [facility] [address] [address] [address] Reema Mireles EGFR-NON AF CHINESE >60 Normal >=60 [facility] Comment on above: Performed By: #### C MP #### [facility] [address] [address] [address] Reema Mireles Globulin (S) [Mass/Vol] 3.5 g/dL Normal [facility] Comment on above: Performed By: #### C MP #### [facility] [address] [address] [address] Reema Mireles Glucose [Mass/Vol] 109 mg/dL Critically high 74-106 [facility] Comment on above: Performed By: #### C MP #### [facility] [address] [address] [address] Reema Mireles Potassium [Moles/Vol] 3.3 mmol/L Critically low 3.5-5.1 [facility] Comment on above: Performed By: #### C MP #### [facility] [address] [address] [address] Reema Mireles Protein [Mass/Vol] 8.0 g/dL Normal 6.4-8.2 [facility] Comment on above: Performed By: #### C MP #### [facility] [address] [address] [address] Reema Mireles Sodium [Moles/Vol] 139 mmol/L Normal 136-145 [facility] Comment on above: Performed By: #### C MP #### [facility] [address] [place] [address] Dr. Reema Mireles Urea nitrogen [Mass/Vol] 9.0 mg/dL Normal 7.0-18.0 [facility] Comment on above: Performed By: #### C MP #### [facility] [address] [place] [address] Dr. Reema Mireles Urea nitrogen/Creatinine [Mass ratio] 10.3 mg/mg Normal [facility] Comment on above: Performed By: #### C MP #### [facility] [address] [place] [address] Dr. Reema Mireles URINE MICROSCOPIC ONLYon BACTERIA NONE SEEN Normal NONE SEEN [facility] Comment on above: Performed By: #### B MP, TSH #### [facility] [address] [place] [address] Dr. Reema Mireles Bacteria identified Cx Nom (U) NOT INDICATED Normal [facility] Comment on above: Performed By: #### B MP, TSH #### [facility] [address] [place] [address] Dr. Reema Mireles CAST NONE SEEN Normal NONE SEEN [facility] Comment on above: Performed By: #### B MP, TSH #### [facility] [address] [place] [address] Dr. Reema Mireles Crystals LM Nom (Urine sed) NONE SEEN Normal NONE SEEN [facility] Comment on above: Performed By: #### B MP, TSH #### [facility] [address] [place] [address] Dr. Reema Mireles Epithelial cells LM Ql (Urine sed) RARE Normal NONE SEEN /RARE [facility] Comment on above: Performed By: #### B MP, TSH #### [facility] [address] [place] [address] Dr. Reema Mireles MUCOUS NONE SEEN Normal NONE SEEN [facility] Comment on above: Performed By: #### B MP, TSH #### [facility] [address] [place] [address] Dr. Reema Mireles RBC 0-2 Normal 0-2 [facility] Comment on above: Performed By: #### B MP, TSH #### [facility] [address] [address] [address] Reema Mireles WBC NONE SEEN Normal NONE SEEN [facility] Comment on above: Performed By: #### B MP, TSH #### [facility] [address] [place] [address] Dr. Reema Mireles CBC AUTO DIFFon 10-25-2021 BASO # 0.0 103/ul Normal 0.0-0.1 [facility] Comment on above: Performed By: #### C BC #### [facility] [address] [place] [address] Dr. Reema Mireles Basophils/100 WBC (Bld) 0.6 % Normal 0.2-2.0 [facility] Comment on above: Performed By: #### C BC #### [facility] [address] [place] [address] Dr. Reema Mireles EO # 0.1 103/ul Normal 0.0-0.7 [facility] Comment on above: Performed By: #### C BC #### [facility] [address] [place] [address] Dr. Reema Mireles Eosinophils/100 WBC (Bld) 1.8 % Normal 0.9-7.0 [facility] Comment on above: Performed By: #### C BC #### [facility] [address] [place] [address] Dr. Reema Mireles Erythrocyte distribution width (RBC) [Ratio] 11.9 % Normal 11.0-15.0 [facility] Comment on above: Performed By: #### C BC #### [facility] [address] [place] [address] Dr. Reema Mireles Hematocrit (Bld) [Volume fraction] 38.1 % Normal 36.0-48.0 [facility] Comment on above: Performed By: #### C BC #### [facility] [address] [place] [address] Dr. Reema Mireles Hemoglobin (Bld) [Mass/Vol] 13.1 g/dL Normal 12.0-16.0 [facility] Comment on above: Performed By: #### C BC #### [facility] [address] [place] [address] Dr. Reema Mireles IG # 0.01 10e3/ul Normal 0.00-0.03 [facility] Comment on above: Performed By: #### C BC #### [facility] [address] [place] [address] Dr. Reema Mireles IG % 0.1 % Normal 0.0-0.5 [facility] Comment on above: Performed By: #### C BC #### [facility] [address] [place] [address] Dr. Reema Mireles LYMPH # 1.9 103/ul Normal 1.2-3.8 [facility] Comment on above: Performed By: #### C BC #### [facility] [address] [place] [address] Dr. Reema Mireles Lymphocytes/100 WBC (Bld) 27.8 % Normal 20.5-60.0 [facility] Comment on above: Performed By: #### C BC #### [facility] [address] [place] [address] Dr. Reema Mireles MANUAL DIFF REQ NO Normal [facility] Comment on above: Performed By: #### C BC #### [facility] [address] [place] [address] Dr. Reema Mireles MCH (RBC) [Entitic mass] 30.5 pg Normal 26.7-34.0 [facility] Comment on above: Performed By: #### C BC #### [facility] [address] [place] [address] Dr. Reema Mireles MCHC (RBC) [Mass/Vol] 34.4 g/dL Normal 29.9-35.2 [facility] Comment on above: Performed By: #### C BC #### [facility] [address] [place] [address] Dr. Reema Mireles MCV (RBC) [Entitic vol] 88.8 fL Normal 81.0-99.0 [facility] Comment on above: Performed By: #### C BC #### [facility] [address] [place] [address] Dr. Reema Mireles MONO # 0.8 103/ul Normal 0.3-0.8 [facility] Comment on above: Performed By: #### C BC #### [facility] [address] [place] [address] Dr. Reema Mireles Monocytes/100 WBC (Bld) 11.2 % Normal 1.7-12.0 [facility] Comment on above: Performed By: #### C BC #### [facility] [address] [place] [address] Dr. Reema Mireles NEUT # 4.0 103/ul Normal 1.4-6.5 [facility] Comment on above: Performed By: #### C BC #### [facility] [address] [place] [address] Dr. Reema Mireles Neutrophils/100 WBC (Bld) 58.5 % Normal 43.0-75.0 [facility] Comment on above: Performed By: #### C BC #### [facility] [address] [place] [address] Dr. Reema Mireles Platelet mean volume (Bld) [Entitic vol] 10.0 fL Normal 9.5-13.5 [facility] Comment on above: Performed By: #### C BC #### [facility] [address] [place] [address] Dr. Reema Mireles PLT 361 103/ul Normal 150-450 [facility] Comment on above: Performed By: #### C BC #### [facility] [address] [place] [address] Dr. Reema Mireles RBC 4.29 106/ul Normal 4.20-5.40 [facility] Comment on above: Performed By: #### C BC #### [facility] [address] [place] [address] Dr. Reema Mireles WBC 6.8 103/ul Normal 4.0-11.0 [facility] Comment on above: Performed By: #### C BC #### [facility] [address] [place] [address] Dr. Reema Mireles PREG QUANT HCGon 10-25-2021 HCG QUANT 1 mIU/mL Normal [facility] Comment on above: Performed By: #### P REGQNT #### [facility] [address] [address] [address] Reema Mireles HCG RANGE SEE BELOW Normal [facility] Comment on above: Result Comment: 5-50 0-1 WEEK 40-300 1-2 WEEKS 100-1,000 2-3 WEEKS 500-6,000 3-4 WEEKS 5,000-200,000 1-2 MONTHS 10,000-100,000 2-3 MONTHS 3,000-50,000 2ND TRIMESTER 1,000-50,000 3RD TRIMESTER Performed By: #### P REGQNT #### [facility] [address] [place] [address] Dr. Reema Mireles Covid-19 PCR (CVDTB)on 09-29 SARS-CoV-2 (COVID-19) RNA FRANKIE+probe Ql (Unsp spec) Not detected Normal NOT DETECTED [facility] Comment on above: Result Comment: This test is not yet approved or cleared by the [place] FDA. When there are no FDA-approved or cleared tests available, and other criteria are met, FDA can make tests available under an emergency access mechanism called an Emergency Use Authorization (EUA). The EUA for this test is supported by the Director Of [employer] of Health and Human Service's (HHS's) declaration [...] SARS-CoV-2. Performed By: #### C VDTBH #### [facility] [id number] Reema Mireles Vital Signs Date Time Vital Sign Value Performing Clinician Facility 05-16-2025 09:38-0400 Body mass index (BMI) [Ratio] 34.28 kg/m2 Cydney Mcgehee PA Work Phone: [facility] 05-16-2025 09:38-0400 Body weight 93.44 kg Cydney Hernandezey PA Work Phone: [facility] 05-16-2025 09:38-0400 Diastolic blood pressure 76 mm[Hg] Cydney Hernandezey PA Work Phone: [facility] 05-16-2025 09:38-0400 Systolic blood pressure 110 mm[Hg] Cydney Leos PA Work Phone: [facility] 04-18-2025 09:14-0400 Body mass index (BMI) [Ratio] 32.64 kg/m2 Devan Omer DO Work Phone: [facility] 04-18-2025 09:14-0400 Body weight 88.96 kg Devan Omer DO Work Phone: [facility] 04-18-2025 09:14-0400 Diastolic blood pressure 78 mm[Hg] Devan Omer DO Work Phone: [facility] 04-18-2025 09:14-0400 Systolic blood pressure 110 mm[Hg] Devan Omer DO Work Phone: [facility] 03-20-2025 10:21-0400 Body mass index (BMI) [Ratio] 32.02 kg/m2 Devan Omer DO Work Phone: [facility] 03-20-2025 10:21-0400 Body weight 87.27 kg Devan Omer DO Work Phone: [facility] 03-20-2025 10:21-0400 Diastolic blood pressure 70 mm[Hg] Devan Omer DO Work Phone: [facility] 03-20-2025 10:21-0400 Systolic blood pressure 120 mm[Hg] Devan Omer DO Work Phone: [facility] 01-20-2025 09:43-0400 Body mass index (BMI) [Ratio] 31.95 kg/m2 [facility] 01-20-2025 09:43-0400 Body weight 87.09 kg [facility] Nurse [facility] 01-20-2025 09:43-0400 Diastolic blood pressure 76 mm[Hg] [facility] Nurse [facility] 01-20-2025 09:43-0400 Systolic blood pressure 112 mm[Hg] Nom Nurse [facility] 12-06-2024 11:23-0400 Body mass index (BMI) [Ratio] 32.12 kg/m2 Cydney FARR Work Phone: [facility] 12-06-2024 11:23-0400 Body weight 87.54 kg Cydney FARR Work Phone: [facility] 12-06-2024 11:23-0400 Diastolic blood pressure 78 mm[Hg] Cydney FARR Work Phone: [facility] 12-06-2024 11:23-0400 Systolic blood pressure 112 mm[Hg] Cydney Leos PA Work Phone: [facility] 11-01-2024 10:12-0500 Body mass index (BMI) [Ratio] 32.64 kg/m2 Devan Omer DO Work Phone: [facility] 11-01-2024 10:12-0500 Body weight 88.96 kg Devan Omer DO Work Phone: [facility] 11-01-2024 10:12-0500 Diastolic blood pressure 82 mm[Hg] Devan Omer DO Work Phone: [facility] 11-01-2024 10:12-0500 Systolic blood pressure 110 mm[Hg] Devan Omer DO Work Phone: [facility] 08-29-2024 10:58-0500 Body mass index (BMI) [Ratio] 34.61 kg/m2 Devan Omer DO Work Phone: [facility] 08-29-2024 10:58-0500 Body weight 94.35 kg Devan Omer DO Work Phone: [facility] 08-29-2024 10:58-0500 Diastolic blood pressure 70 mm[Hg] Devan Omer DO Work Phone: [facility] 08-29-2024 10:58-0500 Systolic blood pressure 110 mm[Hg] Devan Omer DO Work Phone: [facility] 11-12-2023 14:15-0500 Body weight 108.86 kg Devan Omer DO Work Phone: [facility] 11-12-2023 14:15-0500 Diastolic blood pressure 72 mm[Hg] Devan Omer DO Work Phone: [facility] 11-12-2023 14:15-0500 Systolic blood pressure 122 mm[Hg] Devan Omer DO Work Phone: [facility] 04-12-2022 21:04-0400 Diastolic blood pressure 84 mm[Hg] [facility] 04-12-2022 21:04-0400 Heart rate 82 /min [facility] 04-12-2022 21:04-0400 Respiratory rate 16 /min [facility] 04-12-2022 21:04-0400 SaO2% (BldA) [Mass fraction] 98 % [facility] 04-12-2022 21:04-0400 Systolic blood pressure 120 mm[Hg] [facility] 04-12-2022 20:32-0400 gluc 80 mg/dL [facility] Comment on above: Result Comment: not taken due to pt refu jimmie of any injection 04-12-2022 20:32-0400 gluc [facility] 04-12-2022 19:25-0400 Body temperature 99.32 [degF] [facility] 04-12-2022 19:25-0400 Diastolic blood pressure 84 mm[Hg] [facility] 04-12-2022 19:25-0400 Heart rate 90 /min [facility] 04-12-2022 19:25-0400 Respiratory rate 18 /min [facility] 04-12-2022 19:25-0400 SaO2% (BldA) [Mass fraction] 98 % [facility] 04-12-2022 19:25-0400 Systolic blood pressure 118 mm[Hg] [facility] 04-09-2022 12:20-0400 Body height 165.1 cm Deonna Nazanin Other [facility] Other 04-09-2022 12:20-0400 Body mass index (BMI) [Ratio] 35.61 kg/m2 Deonna Nazanin Other [facility] Other 04-09-2022 12:20-0400 Body temperature 98.4 [degF] Deonna Nazanin Other [facility] Other 04-09-2022 12:20-0400 Body weight 97.07 kg Deonna Cavanaughmond Other [employer] Other 04-09-2022 12:20-0400 Diastolic blood pressure 83 mm[Hg] Deonna Nazanin Other [employer] Other 04-09-2022 12:20-0400 Respiratory rate 18 /min Deonna Nazanin Other [facility] Other 04-09-2022 12:20-0400 SaO2% (BldA) [Mass fraction] 99 % Deonna Nazanin Other [employer] Other 04-09-2022 12:20-0400 Systolic blood pressure 135 mm[Hg] Deonna Back Other [employer] Other 04-02-2022 19:00-0400 Body height 165.1 cm Deonna Back Other [employer] Other 04-02-2022 19:00-0400 Body mass index (BMI) [Ratio] 35.71 kg/m2 Deonna Back Other [employer] Other 04-02-2022 19:00-0400 Body temperature 98.1 [degF] Deonna Back Other [employer] Other 04-02-2022 19:00-0400 Body weight 97.34 kg Deonna Back Other [facility] Other 04-02-2022 19:00-0400 Diastolic blood pressure 83 mm[Hg] Deonna Back Other [employer] Other 04-02-2022 19:00-0400 Respiratory rate 18 /min Deonna Back Other [facility] Other 04-02-2022 19:00-0400 SaO2% (BldA) [Mass fraction] 100 % Deonna Back Other [employer] Other 04-02-2022 19:00-0400 Systolic blood pressure 134 mm[Hg] Deonna Back Other [employer] Other Encounters Encounter Date Encounter Type Care Provider Facility Start: 05-16-2025 End: 05-16-2025 Mima FARR Work Phone: [facility] Start: 05-16-2025 End: 05-16-2025 Mima flowsgracy FARR Work Phone: [facility] Start: 05-16-2025 End: 05-16-2025 ambulatory CYDNEY LEOS Not Available Start: 05-16-2025 End: 05-16-2025 Office outpatient visit 15 minutes Cydney FARR Work Phone: [facility] Comment on above: 24 weeks gestation o f ([facility]); Second trimester ([facility]); Subchorionic hemorrhage of placenta, antepartum ([facility]); Diabetes mellitus screening Start: 04-18-2025 End: 04-18-2025 Office outpatient visit 15 minutes Devan Omer DO Work Phone: [facility] Comment on above: Second trimester pre gnancy ([facility]); 21 weeks gestation of ([facility]) Start: 04-18-2025 End: 04-18-2025 ambulatory DEVAN OMER Not Available Start: 04-18-2025 End: 04-18-2025 ambulatory DEVAN OMER Not Available Start: 03-20-2025 End: 03-20-2025 Bamboo flowsheet Devan Omer DO Work Phone: [facility] Start: 03-20-2025 End: 03-20-2025 Bamboo flowsheet Devan Omer DO Work Phone: [facility] Start: 03-20-2025 End: 03-20-2025 Office outpatient visit 15 minutes Devan Omer DO Work Phone: [facility] Comment on above: 17 weeks gestation o f ([facility]); Second trimester ([facility]); Screening, , for anatomic survey ([facility]); Exposure to STD; Vaginal discharge Start: 03-20-2025 End: 03-20-2025 ambulatory DEVAN OMER Not Available Start: 02-27-2025 End: 02-27-2025 ambulatory DEVAN OMER Not Available Start: 02-16-2025 End: 02-16-2025 ambulatory DEVAN OMER Not Available Start: 02-07-2025 End: 02-07-2025 Telephone encounter Devan Omer DO Work Phone: [facility] Start: 01-30-2025 End: 01-30-2025 Clinisync Result Encounter Devan Omer DO Work Phone: [facility] Unsolicited Start: 01-30-2025 End: 01-30-2025 Clinisync Result Encounter Devan Omer DO Work Phone: [facility] Unsolicited Start: 01-20-2025 End: 01-20-2025 Office outpatient visit 5 minutes [facility] Omer Nurse [facility] Comment on above: GA: 9w0d Start: 01-20-2025 End: 01-20-2025 ambulatory DEVAN OMER Not Available Start: 12-06-2024 End: 12-06-2024 Office outpatient visit 15 minutes Cydney Leos PA Work Phone: [facility] Comment on above: Exposure to STD Start: 12-06-2024 End: 12-06-2024 ambulatory CYDNEY LEOS Not Available Start: 11-01-2024 End: 11-01-2024 Bamboo flowsheet Devan Omer DO Work Phone: [facility] Start: 11-01-2024 End: 11-01-2024 Bamboo flowsheet Devan Omer DO Work Phone: [facility] Start: 11-01-2024 End: 11-01-2024 Office outpatient visit 15 minutes Devan Omer DO Work Phone: [facility] Comment on above: Post depressi on (CMS/HCC) Start: 11-01-2024 End: 11-01-2024 ambulatory DEVAN OMER Not Available Start: 08-29-2024 End: 08-29-2024 Bamboo flowsheet Devan Omer DO Work Phone: [facility] Start: 08-29-2024 End: 09-04-2024 Bamboo flowsheet Devan Omer DO Work Phone: [facility] Start: 08-29-2024 End: 09-04-2024 Clinisync Result Encounter Devan Omer DO Work Phone: [facility] Unsolicited Start: 08-29-2024 End: 08-29-2024 Patient encounter procedure Devan Omer DO Work Phone: [facility] Work Phone: Start: 08-29-2024 End: 08-29-2024 Periodic preventive med est patient 18-39 yrs Devan Omer DO Work Phone: [facility] Comment on above: Well woman exam with routine gynecological exam; UTI symptoms; Missed menses Start: 08-29-2024 End: 08-29-2024 ambulatory DEVAN OMER Not Available Start: 06-13-2024 End: 06-13-2024 Bamboo flowsheet Devan Omer DO Work Phone: [facility] Start: 06-13-2024 End: 06-13-2024 Bamboo flowsheet Devan Omer DO Work Phone: [facility] Start: 06-13-2024 End: 06-13-2024 ambulatory DEVAN OMER Not Available Start: 06-13-2024 End: 06-13-2024 Phys/qhp telephone evaluation 5-10 min Devan Omer DO Work Phone: [facility] Comment on above: Post depressi on (CMS/HCC) (Primary Dx) Start: 11-12-2023 End: 11-12-2023 Office outpatient visit 15 minutes Devan Omer DO Work Phone: [facility] Comment on above: Third trimester preg padmini; Excessive growth affecting management of in third trimester, single or unspecified fetus Start: 11-03-2023 Clinisync Result Encounter Cydney FARR Work Phone: [facility] Unsolicited Start: 11-03-2023 Clinisync Result Encounter Cydney FARR Work Phone: [facility] Unsolicited Start: 09-14-2022 End: 09-14-[address] LUIS [...] End: 04-12-2022 Emergency department patient visit Lata Baxter [facility] Start: 04-10-2022 End: 04-10-2022 ambulatory Deonna Back Other [employer] Other Start: 04-10-2022 Telephone encounter Deonna Back [facility] Start: 04-09-2022 End: 04-09-2022 ambulatory Deonna Back Other [employer] Other Start: 04-09-2022 Office outpatient vi sit 15 minutes Deonna Back [facility] Start: 04-09-2022 End: 04-09-[address] LUIS ANTONIO SUTTON Facility:[facility] Start: 04-02-2022 (URG) Urgent Care Visit Deonna Silva d [facility] Start: 04-02-2022 End: 04-02-2022 ambulatory Deonna Back Other [employer] Other Start: 10-25-2021 End: 10-25-[address] ADRYAN MARIE Facility:[facility] Start: 10-24-2021 Encounter for preprocedural laboratory examination DR DEVAN TELLO [facility] Start: 10-22-2021 End: 10-23-[address] ADRYAN MARIE Facility:[facility] Start: 10-22-2021 End: 10-23-2021 Encounter for preprocedural laboratory examination DR ADRYAN MARIE Facility:[facility] Start: 10-19-2021 Encounter for other preprocedural examination DR DEVAN TELLO [facility] Start: 10-17-2021 End: 10-18-[address] ADRYAN MARIE Facility:[facility] Start: 10-17-2021 End: 10-18-2021 Encounter for other preprocedural examination DR ADRYAN MARIE Facility:[facility] Procedures Date Procedure Procedure Detail Performing Clinician Start: 05-16-2025 Urnls dip stick/tabl et rgnt non-auto w/o micrscp Cydney FARR Work Phone: Start: 04-18-2025 Urnls dip stick/tabl et rgnt non-auto w/o micrscp Devan Omer DO Work Phone: Start: 03-20-2025 Urnls dip stick/tabl et rgnt non-auto w/o micrscp Devan Omer DO Work Phone: Start: 01-30-2025 BOX TEST Devan Fazi o DO Work Phone: Start: 01-20-2025 End: 01-20-2025 Urnls dip stick/tablet rgnt non-auto w/o micrscp Devan Omer DO Work Phone: Start: 12-06-2024 Urine test visual color cmprsn meths Cydney FARR Work Phone: Start: 08-29-2024 End: 08-29-2024 Urnls dip stick/tablet rgnt non-auto w/o micrscp Devan Omer DO Work Phone: Start: 08-29-2024 IGP,APTIMA HPV,AGE GDLN Devan Omer DO Work Phone: Start: 11-12-2023 Urnls dip stick/tabl et rgnt non-auto w/o micrscp Devan Omer DO Work Phone: Start: 11-03-2023 ALL CBC WITH AUTO DIFF Cydney FARR Work Phone: Plan of Treatment Date Care Activity Detail Author Start: 09-07-2025 End: 09-07-2025 Patient encounter procedure [facility] Start: 06-06-2025 End: 06-06-2025 Patient encounter procedure 06/06/2025 10:20 AM EDT Routine [facility] [address] [place] [id number] Devan Tello DO [address] [place], [place] [id number] [facility] Start: 05-29-2025 Influenza vaccination [facility] Start: 05-16-2025 End: 05-16-2026 CBC panel - Blood by Automated count CBC Lab Routine Diabetes mellitus screening Expected: 05/16/2025 (Approximate), Expires: 05/16/2026 [facility] Work Phone: Comment on above: Expected: 05/16/2025 (Approximate), Expires: 05/16/2026 Start: 05-16-2025 End: 05-16-2026 Measurement of glucose 1 hour after glucose challenge for glucose tolerance test Glucose tolerance, 1 hour Lab Routine Diabetes mellitus screening Expected: 05/16/2025 (Approximate), Expires: 05/16/2026 [facility] Comment on above: Expected: 05/16/2025 (Approximate), Expires: 05/16/2026 Start: 05-16-2025 End: 05-16-2025 Patient encounter procedure 05/16/2025 9:20 AM EDT Routine [facility] [address] [place] [address] Cydney Leos PA [address] [place] [address] [facility] Start: 04-18-2025 End: 04-18-2025 Patient encounter procedure 04/18/2025 9:20 AM EDT Routine [facility] [address] [place] [phone] Devan Tello, DO [address] [place] [address] [facility] Start: 04-18-2025 End: 04-18-2025 Professional / ancillary services management 04/18/2025 8:00 AM EDT Ancillary Procedure [facility] [address] [place] [id number] [facility] Start: 03-20-2025 End: 04-19-2025 Alpha fetoprotein, maternal Alpha fetoprotein, maternal Lab Routine 17 weeks gestation of ([facility]) Second trimester ([facility]) Expected: 03/20/2025 (Approximate), Expires: 04/19/2025 [facility] Comment on above: Expected: 03/20/2025 (Approximate), Expires: 04/19/2025 Start: 03-20-2025 End: 06-20-2025 US for US OB 14+ weeks anatomy scan Imaging Routine Screening, , for anatomic survey ([facility]) Expected: 03/20/2025, Expires: 06/20/2025 [facility] Comment on above: Expected: 03/20/2025 , Expires: 06/20/2025 Start: 03-20-2025 End: 03-20-2025 Patient encounter procedure 03/20/2025 10:10 AM EDT Routine [facility] [address] [place] [address] Devan Tello, DO [address] [place] [address] Arrived [facility] Comment on above: Arrived Start: 02-21-2025 End: 02-21-2025 Patient encounter procedure 02/21/2025 8:50 AM EDT Routine [facility] [address] [place] [phone] Devan Tello, DO [address] [place] [address] [facility] Start: 01-20-2025 End: 01-20-2026 ABO/Rh ABO/Rh Lab Routine Missed menses , unspecified gestational age Expected: 01/20/2025 (Approximate), Expires: 01/20/2026 [facility] Comment on above: Expected: 01/20/2025 (Approximate), Expires: 01/20/2026 Start: 01-20-2025 End: 01-20-2026 Blood type and Indirect antibody screen panel - Blood Type and screen Lab Routine Missed menses , unspecified gestational age Expected: 01/20/2025 (Approximate), Expires: 01/20/2026 [facility] Work Phone: Comment on above: Expected: 01/20/2025 (Approximate), Expires: 01/20/2026 Start: 01-20-2025 End: 01-20-2026 Drugs of abuse panel - Urine by Screen method Rapid drug screen, urine Lab Routine , unspecified gestational age Encounter for supervision of normal first in first trimester Expected: 01/20/2025 (Approximate), Expires: 01/20/2026 [facility] Comment on above: Expected: 01/20/2025 (Approximate), Expires: 01/20/2026 Start: 11-01-2024 End: 11-01-2024 Patient encounter procedure 11/01/2024 10:00 AM EST Office Visit [facility] [address] [place] [phone] Devan Tello, DO [address] [place] [address] Arrived [facility] Comment on above: Arrived Start: 08-29-2024 End: 08-29-2024 Patient encounter procedure [facility] Comment on above: Arrived Start: 05-29-2024 Influenza vaccination Influenza Vacc ine (#1) [facility] Start: 11-26-2023 End: 11-26-2023 Patient encounter procedure 11/26/2023 11:00 AM EST Routine [facility] [address] [place] [phone] Cydney Leos PA [address] [place], [place] [id number] [facility] Start: 11-26-2023 End: 11-26-2023 Professional / ancillary services management 11/26/2023 10:30 AM EST Ancillary Procedure [facility] [address] [place] [phone] [facility] Start: 11-12-2023 End: 11-12-2024 US for US OB SCAN FOR GROWTH Imaging Routine Excessive growth affecting management of in third trimester, single or unspecified fetus Expected: 11/12/2023 (Approximate), Expires: 11/12/2024 [facility] Work Phone: Comment on above: Expected: 11/12/2023 (Approximate), Expires: 11/12/2024 Start: 11-12-2023 End: 11-12-2023 Patient encounter procedure 11/12/2023 10:50 AM EST Routine [facility] [address] [place] [phone] Devan Tello DO [address] [place], [place] [id number] [facility] Bacteria identified in Urine by Culture Urine culture Microbiology Routine Missed menses Ordered: 01/20/2025 [facility] Comment on above: Ordered: 01/20/2025 CBC W Auto Different ial panel - Blood CBC and differential Lab Routine Missed menses , unspecified gestational age Ordered: 01/20/2025 [facility] Comment on above: Ordered: 01/20/2025 CHLAMYDIA TRACHOMATI S (GENITO/STI) CHLAMYDIA TRACHOMATIS (GENITO/STI) Lab Routine Exposure to STD Ordered: 12/06/2024 [facility] Comment on above: Ordered: 12/06/2024 CHLAMYDIA TRACHOMATI S (GENITO/STI) CHLAMYDIA TRACHOMATIS (GENITO/STI) Lab Routine Exposure to STD Ordered: 03/20/2025 [facility] Comment on above: Ordered: 03/20/2025 Cytology Cervical or vaginal smear or scraping study Pap Smear Pathology and Cytology Routine Well woman exam with routine gynecological exam Ordered: 08/29/2024 [facility] Work Phone: Comment on above: Ordered: 08/29/2024 Hemoglobin A1c/Hemoglobin.total in Blood Hemoglobin A1c Lab Routine Missed menses , unspecified gestational age Ordered: 01/20/2025 [facility] Comment on above: Ordered: 01/20/2025 Hepatitis B virus surface Ag [Presence] in Serum or Plasma by Immunoassay Hepatitis B surface antigen Lab Routine Missed menses , unspecified gestational age Ordered: 01/20/2025 [facility] Comment on above: Ordered: 01/20/2025 Hepatitis C virus Ab [Presence] in Serum or Plasma by Immunoassay Hepatitis C antibody Lab Routine Missed menses , unspecified gestational age Ordered: 01/20/2025 [facility] Comment on above: Ordered: 01/20/2025 HIV-1/HIV-2 antigen/antibody combination immunoassay HIV-1 and HIV-2 antibodies Lab Routine Missed menses , unspecified gestational age Ordered: 01/20/2025 [facility] Comment on above: Ordered: 01/20/2025 Neisseria gonorrhoea e DNA [Presence] in Unspecified specimen by FRANKIE with probe detection Neisseria gonorrhea DNA probe, direct Lab Routine Exposure to STD Ordered: 12/06/2024 [facility] Comment on above: Ordered: 12/06/2024 Neisseria gonorrhoea e DNA [Presence] in Unspecified specimen by FRANKIE with probe detection Neisseria gonorrhea DNA probe, direct Lab Routine Exposure to STD Ordered: 03/20/2025 [facility] Comment on above: Ordered: 03/20/2025 Reagin Ab [Presence] in Serum by RPR RPR Lab Routine Missed menses , unspecified gestational age Ordered: 01/20/2025 [facility] Comment on above: Ordered: 01/20/2025 Rubella antibody, IgG Rubella an tibody, IgG Lab Routine Missed menses , unspecified gestational age Ordered: 01/20/2025 [facility] Comment on above: Ordered: 01/20/2025 SURESWAB(R) ADVANCED VAGINITIS PLUS, TMA SURESWAB(R) ADVANCED VAGINITIS PLUS, TMA Pathology and Cytology Routine Exposure to STD Ordered: 12/06/2024 [facility] Work Phone: Comment on above: Ordered: 12/06/2024 SURESWAB(R) ADVANCED VAGINITIS PLUS, TMA SURESWAB(R) ADVANCED VAGINITIS PLUS, TMA Pathology and Cytology Routine Vaginal discharge Ordered: 03/20/2025 [facility] Work Phone: Comment on above: Ordered: 03/20/2025 Payers Date Payer Category Payer Medicaid [id number] 2023 Private Health Insurance [facility] MEDICAID [id number] 2023 Medicaid [id number] 2023 Unknown [employer] [place] [employer] [id number] 2023-Present [address] [place] [address] [id number] 2001 Unknown [id number] 2.16.840.1.804637.3.579.2. 593 2001 Unknown [id number] 2.16.840.1.439219.3.579.2. 593 2001 Unknown [id number] 2.16840.1.749312.3.579.2. 593 2001 Unknown [id number] 2.16.840.1.807781.3.579.2. 593 2001 Unknown [id number] 2.16.840.1.475009.3.579.2. 593 2001 Unknown [id number] 2.16840.1.182921.3.579.2. 593 2001 Unknown [id number] 2.16.840.1.946881.3.579.2. 593 2001 Unknown [id number] 2.16840.1.487110.3.579.2. 593 2001 Unknown [id number] 2.16840.1.683769.3.579.2. 593 2001 Unknown [id number] 2.16840.1.482561.3.579.2. 593 2001 Unknown [id number] 2.16840.1.871358.3.579.2. 593 2001 Unknown [id number] 2.16840.1.680603.3.579.2. 1259 2001 Unknown [id number] 2.16840.1.493869.3.579.2. 1259 2001 Unknown [id number] 2.16840.1.241024.3.579.2. 1259 2001 Unknown [id number] 2.16.840.1.814114.3.579.2. 1259 2001 Unknown [id number] 2.16840.1.002258.3.579.2. 1259 2001 Unknown [id number] 2.16840.1.278802.3.579.2. 1259 2001 Unknown [id number] 2.16840.1.258020.3.579.2. 1259 2001 Unknown [id number] 2.16.840.1.233291.3.579.2. 1259 2001 Unknown [id number] 2.16.840.1.755579.3.579.2. 9 2001 Unknown [id number] 2.16.840.1.304905.3.579.2. 1259 2001 Unknown [id number] 2.16.840.1.209611.3.579.2. 1259 2001 Unknown [id number] 2.16.840.1.700182.3.579.2. 1259 1958 [facility] [id number] 2.16.840.1.530755.19 Social History Date Type Detail Facility Unknown if ever smoked [employer] Other Start: 05-12-2024 End: 08-29-2024 Sex Assigned At [facility] [employer] Other Tobacco smoking status No Smoking Status Entered [facility] Start: 06-20-2023 Tobacco smoking status ARIS Tobacco smoking consumption unknown [facility] Start: 10-15-2023 End: 05-16-2025 Alcohol intake Lifetime non-drinker (finding) [facility] Start: 06-20-2023 Tobacco Comment Current smoker (frequency unknown) [facility] Start: 05-06-2023 [facility] Start: 2001 Sex Assigned At Not on file [facility] Start: 03-08-2024 Tobacco smoking status NHIS Ex-smoker [facility] History of tobacco use Current smoker [facility] Start: 05-12-2024 End: 08-29-2024 History of Social function [facility] Goals Date Patient Goal Desired Activity /State Personal health goal Functional Status Date Assessment Result Facility 04-12-2022 Functional Status N/A [facility] Clinical Notes 10-25-2021 to 05-16-2025 CHIKA Lyman - 05/16/2025 9:20 AM Trudy Ozuna LPN - 04/18/2025 9:20 AM Doris Saul LPN - 03/20/2025 10:10 AM EDTTelephone Encounter - Nohelia Breen - 02/07/2025 3:45 PM EDT Note Date & Type Note Facility 05-16-2025 History of Presen t illness Narrative Reason for Appointment: Patient ID: Juanpablo Chaparro is a 24 y.o. female who presents for Routine Visit Patient presents today for Return OB appointment. MEDICATIONS Current Outpatient Medications Medication Instructions AD-Ubh-[id number]-[place]-3 ( GUMMIES/DHA & FA PO) 1 each, Daily ALLERGIES Allergies Allergen Reactions Sulfa Antibiotics Fever, Hives and Rash PROBLEMS Active Ambulatory Problems Diagnosis Date Noted No Active Ambulatory Problems Resolved Ambulatory Problems Diagnosis Date Noted No Resolved Ambulatory Problems Past Medical History: Diagnosis Date Bacterial vaginosis Dysmenorrhea Dyspareunia in female Female pelvic pain Hiatal hernia Obesity (BMI 30.0-34.9) Postop check Status post laparoscopy Symptomatic mammary hypertrophy Vulvodynia HISTORY PAST MEDICAL HISTORY SOCIAL HISTORY Past Medical History: Diagnosis Date Bacterial vaginosis Dysmenorrhea Dyspareunia in female Female pelvic pain Hiatal hernia Obesity (BMI 30.0-34.9) Postop check Status post laparoscopy Symptomatic mammary hypertrophy Vulvodynia Social History Tobacco Use Smoking status: Former Smokeless tobacco: Not on file Tobacco comments: Current smoker (frequency unknown) Substance Use Topics Alcohol use: Never Drug use: Never FAMILY HISTORY Family History Problem Relation Name Age of Onset Cancer Mother Maya Diabetes Mother Maya Other (high blood pressure) Maternal Grandmother Cervical cancer Maternal Grandmother Cancer Maternal Grandfather Sukhjinder prostate Lung cancer Paternal Grandmother Diabetes Mother's Sister Laura SURGICAL HISTORY Past Surgical History: Procedure Laterality Date SECTION, LOW TRANSVERSE 01/26/2024 LAPAROSCOPY DIAGNOSTIC / BIOPSY / ASPIRATION / LYSIS 10/25/2021 REVIEW OF SYSTEMS Review of Systems: Review of Systems Constitutional: Negative. HENT: Negative. Eyes: Negative. Respiratory: Negative. Cardiovascular: Negative. Gastrointestinal: Negative. Genitourinary: Negative. Musculoskeletal: Negative. Skin: Negative. Neurological: Negative. All other systems reviewed and are negative. Hematological: Negative. Endocrine: Negative. Allergic/Immunologic: Negative. OBJECTIVE Objective: Physical Exam Constitutional: Appearance: Normal appearance. She [...] Judgment normal. Vitals and nursing note reviewed. Vitals: Estimated body mass index is 34.28 kg/m as calculated from the following: Height as of 24: 5' 5 . Weight as of this encounter: 206 lb. BP: 110/76 Patient's last menstrual period was 11/18/2024 (approximate). ASSESSMENT & PLAN ICD-10-CM 1. 24 weeks gestation of ([facility]) Z3A.24 POCT urinalysis dipstick manually resulted 2. Second trimester ([facility]) Z34.92 POCT urinalysis dipstick manually resulted 3. Subchorionic hemorrhage of placenta, antepartum ([facility]) O46.8X9 4. Diabetes mellitus screening Z13.1 CBC Glucose tolerance, 1 hour CBC Glucose tolerance, 1 hour Return OB: Patient presents today for a routine obstetrics appointment. Patient is currently 25w4d . Patient states she is doing well but has complaints of being tired due to current . Patient has verbalizes frequent movement. Orders Placed This Encounter Procedures CBC Glucose tolerance, 1 hour POCT urinalysis dipstick manually resulted Follow Up: Patient is to return to office in 3 week for routine OB appointment. Documented by CHIKA Lyman on behalf of: CHIKA Lyman documented in this encounter [facility] 04-18-2025 History of Presen t illness Narrative Reason for Appointment: Patient ID: Juanpablo Chaparro is a 24 y.o. female who presents for Routine Visit Patient presents today for Return OB appointment. MEDICATIONS Current Outpatient Medications Medication Instructions YZ-Hkb-[id number]-[place]-3 ( GUMMIES/DHA & FA PO) 1 each, Daily ALLERGIES Allergies Allergen Reactions Sulfa Antibiotics Fever, Hives and Rash PROBLEMS Active Ambulatory Problems Diagnosis Date Noted No Active Ambulatory Problems Resolved Ambulatory Problems Diagnosis Date Noted No Resolved Ambulatory Problems Past Medical History: Diagnosis Date Bacterial vaginosis Dysmenorrhea Dyspareunia in female Female pelvic pain Hiatal hernia Obesity (BMI 30.0-34.9) Postop check Status post laparoscopy Symptomatic mammary hypertrophy Vulvodynia HISTORY PAST MEDICAL HISTORY SOCIAL HISTORY Past Medical History: Diagnosis Date Bacterial vaginosis Dysmenorrhea Dyspareunia in female Female pelvic pain Hiatal hernia Obesity (BMI 30.0-34.9) Postop check Status post laparoscopy Symptomatic mammary hypertrophy Vulvodynia Social History Tobacco Use Smoking status: Former Smokeless tobacco: Not on file Tobacco comments: Current smoker (frequency unknown) Substance Use Topics Alcohol use: Never Drug use: Never FAMILY HISTORY Family History Problem Relation Name Age of Onset Cancer Mother Maya Diabetes Mother Maya Other (high blood pressure) Maternal Grandmother Cervical cancer Maternal Grandmother Cancer Maternal Grandfather Sukhjinder prostate Lung cancer Paternal Grandmother Diabetes Mother's Sister Laura SURGICAL HISTORY Past Surgical History: Procedure Laterality Date SECTION, LOW TRANSVERSE 01/26/2024 LAPAROSCOPY DIAGNOSTIC / BIOPSY / ASPIRATION / LYSIS 10/25/2021 REVIEW OF SYSTEMS Review of Systems: Review of Systems Constitutional: Negative. HENT: Negative. Eyes: Negative. Respiratory: Negative. Cardiovascular: Negative. Gastrointestinal: Negative. Genitourinary: Negative. Musculoskeletal: Negative. Skin: Negative. Neurological: Negative. All other systems reviewed and are negative. Hematological: Negative. Endocrine: Negative. Allergic/Immunologic: Negative. OBJECTIVE Objective: Physical Exam Constitutional: Appearance: Normal appearance. She is well-developed. Cardiovascular: Rate and Rhythm: Normal rate and regular rhythm. Pulmonary: Effort: Pulmonary effort is normal. Breath sounds: Normal breath sounds. Abdominal: General: Bowel sounds are normal. There is no distension. Palpations: Abdomen is soft. Tenderness: There is no abdominal tenderness. There is no guarding or rebound. Musculoskeletal: General: No swelling. Normal range of motion. Right lower leg: No edema. Left lower leg: No edema. Neurological: Mental Status: She is alert and oriented to person, place, and time. Skin: General: Skin is warm and dry. Psychiatric: Mood and Affect: Mood normal. Behavior: Behavior normal. Vitals and nursing note reviewed. Exam conducted with a account consultant present. Vitals: Estimated body mass index is 32.64 kg/m as calculated from the following: Height as of 24: 5' 5 . Weight as of this encounter: 196 lb 1.9 oz. BP: 110/78 Patient's last menstrual period was 11/18/2024 (approximate). ASSESSMENT & PLAN ICD-10-CM 1. Second trimester ([facility] Z34.92 POCT urinalysis dipstick manually resulted 2. 21 weeks gestation of ([facility] Z3A.21 POCT urinalysis dipstick manually resulted Patient presents today for a routine obstetrics appointment. Patient is currently 21w4d with a Estimated Date of Delivery: 08/25/25. Pt had anatomy scan prior to appt. Will notify of results. Pt to return in 4 weeks for scheduled ob appt. Documented by Tricia Ozuna LPN on behalf of: Devan Tello DO documented in this encounter [facility] 03-20-2025 History of Presen t illness Narrative Reason for Appointment: Patient ID: Juanpablo Chaparro is a 24 y.o. female who presents for Routine Visit Patient presents today for Return OB appointment. MEDICATIONS Current Outpatient Medications Medication Instructions NW-Ssl-NP-[place]-3 ( GUMMIES/DHA & FA PO) 1 each, Daily ALLERGIES Allergies Allergen Reactions Sulfa Antibiotics Fever, Hives and Rash PROBLEMS Active Ambulatory Problems Diagnosis Date Noted No Active Ambulatory Problems Resolved Ambulatory Problems Diagnosis Date Noted No Resolved Ambulatory Problems Past Medical History: Diagnosis Date Bacterial vaginosis Dysmenorrhea Dyspareunia in female Female pelvic pain Hiatal hernia Obesity (BMI 30.0-34.9) Postop check Status post laparoscopy Symptomatic mammary hypertrophy Vulvodynia HISTORY PAST MEDICAL HISTORY SOCIAL HISTORY Past Medical History: Diagnosis Date Bacterial vaginosis Dysmenorrhea Dyspareunia in female Female pelvic pain Hiatal hernia Obesity (BMI 30.0-34.9) Postop check Status post laparoscopy Symptomatic mammary hypertrophy Vulvodynia Social History Tobacco Use Smoking status: Former Smokeless tobacco: Not on file Tobacco comments: Current smoker (frequency unknown) Substance Use Topics Alcohol use: Never Drug use: Never FAMILY HISTORY Family History Problem Relation Name Age of Onset Cancer Mother Maya Diabetes Mother Maya Other (high blood pressure) Maternal Grandmother Cervical cancer Maternal Grandmother Cancer Maternal Grandfather Sukhjinder prostate Lung cancer Paternal Grandmother Diabetes Mother's Sister Laura SURGICAL HISTORY Past Surgical History: Procedure Laterality Date SECTION, LOW TRANSVERSE 01/26/2024 LAPAROSCOPY DIAGNOSTIC / BIOPSY / ASPIRATION / LYSIS 10/25/2021 REVIEW OF SYSTEMS Review of Systems: Review of Systems Constitutional: Negative. HENT: Negative. Eyes: Negative. Respiratory: Negative. Cardiovascular: Negative. Gastrointestinal: Negative. Genitourinary: Negative. Musculoskeletal: Negative. Skin: Negative. Neurological: Negative. All other systems reviewed and are negative. Hematological: Negative. Endocrine: Negative. Allergic/Immunologic: Negative. OBJECTIVE Objective: Physical Exam Constitutional: Appearance: Normal appearance. She is well-developed. Genitourinary: Vulva normal. Cardiovascular: Rate and Rhythm: Normal rate and regular rhythm. Pulmonary: Effort: Pulmonary effort is normal. Breath sounds: Normal breath sounds. Abdominal: General: Bowel sounds are normal. There is no distension. Palpations: Abdomen is soft. Tenderness: There is no abdominal tenderness. There is no guarding or rebound. Musculoskeletal: General: No swelling. Normal range of motion. Right lower leg: No edema. Left lower leg: No edema. Neurological: Mental Status: She is alert and oriented to person, place, and time. Skin: General: Skin is warm and dry. Psychiatric: Mood and Affect: Mood normal. Behavior: Behavior normal. Vitals and nursing note reviewed. Exam conducted with a account consultant present. Vitals: Estimated body mass index is 32.02 kg/m as calculated from the following: Height as of 03/08/24: 5' 5 . Weight as of this encounter: 192 lb 6.4 oz. BP: 120/70 Patient's last menstrual period was 11/18/2024 (approximate). ASSESSMENT & PLAN ICD-10-CM 1. 17 weeks gestation of ([facility]) Z3A.17 POCT urinalysis dipstick manually resulted Alpha fetoprotein, maternal Alpha fetoprotein, maternal 2. Second trimester ([facility]) Z34.92 POCT urinalysis dipstick manually resulted Alpha fetoprotein, maternal Alpha fetoprotein, maternal 3. Screening, , for anatomic survey ([facility]) Z36.89 US OB 14+ weeks anatomy scan US OB 14+ weeks anatomy scan 4. Exposure to STD Z20.2 CHLAMYDIA TRACHOMATIS (GENITO/STI) Neisseria gonorrhea DNA probe, direct 5. Vaginal discharge N89.8 SURESWAB(R) ADVANCED VAGINITIS PLUS, TMA Patient presents today for a routine obstetrics appointment. Patient is currently 17w3d with a Estimated Date of Delivery: 08/25/25. Patient had complaints of breast pain for a short time, which has since subsided. Patient states that sometimes she has visual changes (seeing stars) and feels faint occasionally. Discussed with patient hormones, allergies and hydration. Obtained routine vaginal cultures today. Patient to return to clinic in 4 weeks for routine OB appointment. Patient given lab work and US appointment. Documented by Maryam Saul LPN on behalf of: Devan Tello DO documented in this encounter [facility] 02-07-2025 Telephone encount er Note Patient called us today and was concerned as she is in early stages of , and she is having stomach cramping all across her abdomen. Patient states she is having no bleeding at this time, but I spoke with clinical staff and they recommended she go to [facility] to get evaluated. [facility] 02-07-2025 Miscellaneous Notes Formattin g of this note might be different from the original. Patient called us today and was concerned as she is in early stages of , and she is having stomach cramping all across her abdomen. Patient states she is having no bleeding at this time, but I spoke with clinical staff and they recommended she go to [facility] to get evaluated. documented in this encounter [facility] 01-20-2025 History of Presen t illness Narrative Reason for Appointment: Patient ID: Juanpablo Chaparro is a 24 y.o. female who presents for Amenorrhea Patient presents today for a Nurse OB Intake appointment. Patient is 9w0d with a Estimated Date of Delivery: 08/25/25 OB History Para Term AB Living 2 1 1 1 SAB IAB Ectopic Multiple Live Births 1 # Outcome Date GA Lbr Jackson/2nd Weight Sex Type Anes PTL Lv 2 Current 1 Term 01/26/24 39w6d CS-LTranv Current Medications: has a current medication list which includes the following prescription(s): citalopram. Medical History: Active Ambulatory Problems Diagnosis Date Noted No Active Ambulatory Problems Resolved Ambulatory Problems Diagnosis Date Noted No Resolved Ambulatory Problems Past Medical History: Diagnosis Date Bacterial vaginosis Dysmenorrhea Dyspareunia in female Female pelvic pain Hiatal hernia Obesity (BMI 30.0-34.9) Postop check Status post laparoscopy Symptomatic mammary hypertrophy Vulvodynia Family History Problem Relation Name Age of Onset Cancer Mother Maya Diabetes Mother Maya Other (high blood pressure) Maternal Grandmother Cervical cancer Maternal Grandmother Cancer Maternal Grandfather Sukhjinder prostate Lung cancer Paternal Grandmother Diabetes Mother's Sister Laura Social History Tobacco Use Smoking status: Former Smokeless tobacco: Not on file Tobacco comments: Current smoker (frequency unknown) Substance Use Topics Alcohol use: Never Drug use: Never Past Surgical History: Procedure Laterality Date SECTION, LOW TRANSVERSE 01/26/2024 LAPAROSCOPY DIAGNOSTIC / BIOPSY / ASPIRATION / LYSIS 10/25/2021 Allergies Allergen Reactions Sulfa Antibiotics Fever, Hives and Rash Vitals: Estimated body mass index is 31.95 kg/m as calculated from the following: Height as of 03/08/24: 5' 5 . Weight as of this encounter: 192 lb. BP: 112/76 Patient's last menstrual period was 11/18/2024 (approximate). Assessment/Plan Diagnoses and all orders for this visit: Missed menses - Type and screen; Future - ABO/Rh; Future - CBC and differential - Hemoglobin A1c - RPR - Rubella antibody, IgG - Hepatitis B surface antigen - Hepatitis C antibody - HIV-1 and HIV-2 antibodies - Urine culture - POCT , urine manually resulted - POCT urinalysis dipstick manually resulted , unspecified gestational age - Type and screen; Future - ABO/Rh; Future - CBC and differential - Hemoglobin A1c - RPR - Rubella antibody, IgG - Hepatitis B surface antigen - Hepatitis C antibody - HIV-1 and HIV-2 antibodies - Rapid drug screen, urine; Future Encounter for supervision of normal first in first trimester - Rapid drug screen, urine; Future 9 weeks gestation of Nurse Note: Patient desires [place]. Pt was advised to have both labs w/[place] at [facility] or the lab dept will not draw [place] w/o labs. PVU. Pt stated she had hypotension w/G1. And would like to have a vaginal w/this . Advised pt due to having a c/s she would have to deliver in [place]. PVU and will discuss this w/Omer at her initial OB visit in 4 weeks. OB Intake: Patient presents today for first OB visit. Patients history has been reviewed in great detail including any potential risks. Patient signed consent forms and patient desires testing in both trimesters. Patient currently has no complaints and has been advised to drink 6-8 glasses of water a day, eat no raw or undercooked meat, and stay away from [facility]. Patient has also been advised to not change litter boxes and eat 6 small meals a day. Patient has been consulted regarding the do's and don'ts of . Patient was given labs and all questions and concerns were answered. Follow Up: Patient is to return in 4 weeks for routine OB appointment. Follow Up: Patient is to have labs drawn at directed and return to office for initial OB appointment with provider. Patient may call office as needed with any concerns or questions. Nurse Visit Completed by: Ciarra Castillo MA documented in this encounter [facility] 12-06-2024 History of Presen t illness Narrative Reason for Appointment: Patient ID: Juanpablo Chaparro is a 24 y.o. female who presents for STI Screening (Pt present today for std check) Patient presents today for Acute Visit. MEDICATIONS Current Outpatient Medications Medication Instructions Aurovela FE 10/17 1-20 MG-MCG tablet citalopram (CELEXA) 20 mg, Oral, Daily ALLERGIES Allergies Allergen Reactions Sulfa Antibiotics Fever, Hives and Rash PROBLEMS Active Ambulatory Problems Diagnosis Date Noted No Active Ambulatory Problems Resolved Ambulatory Problems Diagnosis Date Noted No Resolved Ambulatory Problems Past Medical History: Diagnosis Date Bacterial vaginosis Dysmenorrhea Dyspareunia in female Female pelvic pain Hiatal hernia Obesity (BMI 30.0-34.9) Postop check Status post laparoscopy Symptomatic mammary hypertrophy Vulvodynia HISTORY PAST MEDICAL HISTORY SOCIAL HISTORY Past Medical History: Diagnosis Date Bacterial vaginosis Dysmenorrhea Dyspareunia in female Female pelvic pain Hiatal hernia Obesity (BMI 30.0-34.9) Postop check Status post laparoscopy Symptomatic mammary hypertrophy Vulvodynia Social History Tobacco Use Smoking status: Former Smokeless tobacco: Not on file Tobacco comments: Current smoker (frequency unknown) Substance Use Topics Alcohol use: Never Drug use: Never FAMILY HISTORY Family History Problem Relation Name Age of Onset Cancer Mother Maya Diabetes Mother Maya Other (high blood pressure) Maternal Grandmother Cervical cancer Maternal Grandmother Cancer Maternal Grandfather Sukhjinder prostate Lung cancer Paternal Grandmother Diabetes Mother's Sister Laura SURGICAL HISTORY Past Surgical History: Procedure Laterality Date SECTION, LOW TRANSVERSE 01/26/2024 LAPAROSCOPY DIAGNOSTIC / BIOPSY / ASPIRATION / LYSIS 10/25/2021 REVIEW OF SYSTEMS Review of Systems: Review of Systems Constitutional: Negative. HENT: Negative. Eyes: Negative. Respiratory: Negative. Cardiovascular: Negative. Gastrointestinal: Negative. Genitourinary: Negative. Musculoskeletal: Negative. Skin: Negative. Neurological: Negative. All other systems reviewed and are negative. Hematological: Negative. Endocrine: Negative. Allergic/Immunologic: Negative. OBJECTIVE Objective: Physical Exam Constitutional: Appearance: Normal appearance. She [...] Judgment normal. Vitals and nursing note reviewed. Vitals: Estimated body mass index is 32.12 kg/m as calculated from the following: Height as of 03/08/24: 5' 5 . Weight as of this encounter: 193 lb. BP: 112/78 Patient's last menstrual period was 11/18/2024 (approximate). ASSESSMENT & PLAN ICD-10-CM 1. Exposure to STD Z20.2 POCT , urine manually resulted SURESWAB(R) ADVANCED VAGINITIS PLUS, TMA CHLAMYDIA TRACHOMATIS (GENITO/STI) Neisseria gonorrhea DNA probe, direct Patient presents for sti check. States significant other cheated on her and she would like checked. Denies symptoms Documented by CHIKA Lyman on behalf of: CHIKA Lyman documented in this encounter [facility] 11-01-2024 History of Presen t illness Narrative Reason for Appointment: Patient ID: Juanpablo Chaparro is a 24 y.o. female who presents for Post Depression Patient presents today for Acute Visit. and Consult appointment. MEDICATIONS No current outpatient medications ALLERGIES Allergies Allergen Reactions Sulfa Antibiotics Fever, Hives and Rash PROBLEMS Active Ambulatory Problems Diagnosis Date Noted No Active Ambulatory Problems Resolved Ambulatory Problems Diagnosis Date Noted No Resolved Ambulatory Problems Past Medical History: Diagnosis Date Bacterial vaginosis Dysmenorrhea Dyspareunia in female Female pelvic pain Hiatal hernia Obesity (BMI 30.0-34.9) Postop check Status post laparoscopy Symptomatic mammary hypertrophy Vulvodynia HISTORY PAST MEDICAL HISTORY SOCIAL HISTORY Past Medical History: Diagnosis Date Bacterial vaginosis Dysmenorrhea Dyspareunia in female Female pelvic pain Hiatal hernia Obesity (BMI 30.0-34.9) Postop check Status post laparoscopy Symptomatic mammary hypertrophy Vulvodynia Social History Tobacco Use Smoking status: Former Smokeless tobacco: Not on file Tobacco comments: Current smoker (frequency unknown) Substance Use Topics Alcohol use: Never Drug use: Never FAMILY HISTORY Family History Problem Relation Name Age of Onset Cancer Mother Maya Diabetes Mother Maya Other (high blood pressure) Maternal Grandmother Cervical cancer Maternal Grandmother Cancer Maternal Grandfather Sukhjinder prostate Lung cancer Paternal Grandmother Diabetes Mother's Sister Laura SURGICAL HISTORY Past Surgical History: Procedure Laterality Date SECTION, LOW TRANSVERSE 01/26/2024 LAPAROSCOPY DIAGNOSTIC / BIOPSY / ASPIRATION / LYSIS 10/25/2021 REVIEW OF SYSTEMS Review of Systems: Review of Systems Constitutional: Negative. HENT: Negative. Eyes: Negative. Respiratory: Negative. Cardiovascular: Negative. Gastrointestinal: Negative. Genitourinary: Negative. Musculoskeletal: Negative. Skin: Negative. Neurological: Negative. All other systems reviewed and are negative. Hematological: Negative. Endocrine: Negative. Allergic/Immunologic: Negative. OBJECTIVE Objective: Physical Exam Constitutional: Appearance: Normal appearance. She is well-developed. Cardiovascular: Rate and Rhythm: Normal rate and regular rhythm. Pulmonary: Effort: Pulmonary effort is normal. Breath sounds: Normal breath sounds. Abdominal: General: Bowel sounds are normal. There is no distension. Palpations: Abdomen is soft. Tenderness: There is no abdominal tenderness. There is no guarding or rebound. Musculoskeletal: General: No swelling. Normal range of motion. Right lower leg: No edema. Left lower leg: No edema. Neurological: Mental Status: She is alert and oriented to person, place, and time. Skin: General: Skin is warm and dry. Psychiatric: Mood and Affect: Mood normal. Behavior: Behavior normal. Vitals and nursing note reviewed. Exam conducted with a account consultant present. Vitals: Estimated body mass index is 32.64 kg/m as calculated from the following: Height as of 03/08/24: 5' 5 . Weight as of this encounter: 196 lb 1.9 oz. BP: 110/82 No LMP recorded. ASSESSMENT & PLAN ICD-10-CM 1. 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 Pt states celexa worked well for pt in the past. Pt denies suicidal and homicidal ideations. Rx for Celexa faxed to pharmacy. Discussed control options with pt in detail. Mirena IUD, nuva ring, and or twirla discussed.Pt to call when decides control. Documented by Tricia Ozuna LPN on behalf of: Devan Tello DO documented in this encounter [facility] 08-29-2024 History of Presen t illness Narrative Reason for Appointment: Patient ID: Juanpablo Chaparro is a 23 y.o. female who presents for Well Women Visit Patient presents today for Annual Exam. MEDICATIONS Current Outpatient Medications Medication Instructions norethindrone-ethinyl estradiol (10/17) 1-20 MG-MCG tablet 1 tablet, Oral, Daily, Take 1 tablet by mouth daily ALLERGIES Allergies Allergen Reactions Sulfa Antibiotics Fever, Hives and Rash PROBLEMS Active Ambulatory Problems Diagnosis Date Noted No Active Ambulatory Problems Resolved Ambulatory Problems Diagnosis Date Noted No Resolved Ambulatory Problems Past Medical History: Diagnosis Date Bacterial vaginosis Dysmenorrhea Dyspareunia in female Female pelvic pain Hiatal hernia Obesity (BMI 30.0-34.9) Postop check Status post laparoscopy Symptomatic mammary hypertrophy Vulvodynia HISTORY PAST MEDICAL HISTORY SOCIAL HISTORY Past Medical History: Diagnosis Date Bacterial vaginosis Dysmenorrhea Dyspareunia in female Female pelvic pain Hiatal hernia Obesity (BMI 30.0-34.9) Postop check Status post laparoscopy Symptomatic mammary hypertrophy Vulvodynia Social History Tobacco Use Smoking status: Former Smokeless tobacco: Not on file Tobacco comments: Current smoker (frequency unknown) Substance Use Topics Alcohol use: Never Drug use: Never FAMILY HISTORY Family History Problem Relation Name Age of Onset Cancer Mother Maya Diabetes Mother Maya Other (high blood pressure) Maternal Grandmother Cervical cancer Maternal Grandmother Cancer Maternal Grandfather Sukhjinder prostate Lung cancer Paternal Grandmother Diabetes Mother's Sister Laura SURGICAL HISTORY Past Surgical History: Procedure Laterality Date SECTION, LOW TRANSVERSE 01/26/2024 LAPAROSCOPY DIAGNOSTIC / BIOPSY / ASPIRATION / LYSIS 10/25/2021 REVIEW OF SYSTEMS Review of Systems: Review of Systems Constitutional: Negative. HENT: Negative. Eyes: Negative. Respiratory: Negative. Cardiovascular: Negative. Gastrointestinal: Negative. Genitourinary: Negative. Musculoskeletal: Negative. Skin: Negative. Neurological: Negative. All other systems reviewed and are negative. Hematological: Negative. Endocrine: Negative. Allergic/Immunologic: Negative. OBJECTIVE Objective: Physical Exam Constitutional: Appearance: Normal appearance. She is well-developed. Genitourinary: Vulva normal. Breasts: Breasts are soft. Right: Normal. Left: Normal. Cardiovascular: Rate and Rhythm: Normal rate and regular rhythm. Pulmonary: Effort: Pulmonary effort is normal. Breath sounds: Normal breath sounds. Abdominal: General: Bowel sounds are normal. There is no distension. Palpations: Abdomen is soft. Tenderness: There is no abdominal tenderness. There is no guarding or rebound. Musculoskeletal: General: No swelling. Normal range of motion. Right lower leg: No edema. Left lower leg: No edema. Neurological: Mental Status: She is alert and oriented to person, place, and time. Skin: General: Skin is warm and dry. Psychiatric: Mood and Affect: Mood normal. Behavior: Behavior normal. Vitals and nursing note reviewed. Exam conducted with a account consultant present. Vitals: Estimated body mass index is 34.61 kg/m as calculated from the following: Height as of 03/08/24: 5' 5 . Weight as of this encounter: 208 lb. BP: 110/70 No LMP recorded (within months). ASSESSMENT & PLAN ICD-10-CM 1. Well woman exam with routine gynecological exam Z01.419 Pap Smear 2. UTI symptoms R39.9 POCT urinalysis dipstick manually resulted 3. Missed menses N92.6 POCT , urine manually resulted Annual Exam: Patient presents today for an annual exam. Patient states she is doing well and has complaints of uti symptoms- ua neg in house. Pap was obtained without difficulty. Orders Placed This Encounter Procedures POCT , urine manually resulted POCT urinalysis dipstick manually resulted Follow Up: Patient is to return in one year for annual unless needed otherwise. Documented by Tricia Ozuna LPN on behalf of: Devan Tello DO documented in this encounter [facility] 06-13-2024 History of Presen t illness Narrative Reason for Appointment: Patient ID: Juanpablo Chaparro is a 23 y.o. female who presents for No chief complaint on file. Patient presents today via telephone call for a telehealth appointment. Patients Phone #: [phone] (mobile) Current Medications: has a current medication list which includes the following prescription(s): azithromycin, citalopram, diphenhydramine, norethindrone-ethinyl estradiol, and norgestimate-ethinyl estradiol. Medical History: Active Ambulatory Problems Diagnosis Date Noted No Active Ambulatory Problems Resolved Ambulatory Problems Diagnosis Date Noted No Resolved Ambulatory Problems Past Medical History: Diagnosis Date Bacterial vaginosis Dysmenorrhea Dyspareunia in female Female pelvic pain Hiatal hernia Obesity (BMI 30.0-34.9) Postop check Status post laparoscopy Symptomatic mammary hypertrophy Vulvodynia Family History Problem Relation Name Age of Onset Cancer Mother Maya Diabetes Mother Maya Other (high blood pressure) Maternal Grandmother Cervical cancer Maternal Grandmother Cancer Maternal Grandfather Sukhjinder prostate Lung cancer Paternal Grandmother Diabetes Mother's Sister Laura Social History Tobacco Use Smoking status: Former Smokeless tobacco: Not on file Tobacco comments: Current smoker (frequency unknown) Substance Use Topics Alcohol use: Never Drug use: Never Past Surgical History: Procedure Laterality Date SECTION, LOW TRANSVERSE 01/26/2024 LAPAROSCOPY DIAGNOSTIC / BIOPSY / ASPIRATION / LYSIS 10/25/2021 Allergies Allergen Reactions Sulfa Antibiotics Fever, Hives and Rash Vitals: Estimated body mass index is 35.45 kg/m as calculated from the following: Height as of 03/08/24: 5' 5 . Weight as of 05/12/24: 213 lb. BP: No LMP recorded. Assessment/Plan 1:33pm Provider called patient to discuss medication. Patient voiced she is doing well on Celexa and Junel. Patient will contact office with any concerns. Today's telehealth visit consisted of spending 5 minutes talking to patient on the phone. Documented by Maryam Saul LPN on behalf of: Devan Tello DO documented in this encounter [facility] 11-12-2023 History of Presen t illness Narrative [...] Devan Tello DO documented in this encounter [facility] 04-12-2022 Hospital Discharg e instructions Patient Education [...] help with your condition: Managing pain Take [id number] and prescription medicines only as told by [...] 09/14/2006 Document Revised: 04/04/2019 Document Reviewed: 04/04/2019 [employer] Patient Education 2020 [employer] 04/12/2022 21:07:38 Vertigo Vertigo Vertigo is [...] if you feel dizzy. General instructions Take [id number] and prescription medicines only as told by [...] 06/24/2006 Document Revised: 08/08/2019 Document Reviewed: 08/08/2019 [employer] Patient Education 2019 [facility] Follow Up Care 04/12/2022 19:25:17 With:ADRYAN MARIE Address: [address] [place], [place] [id number] [facility] (1) When:04/15/2022 20:55:24 Comments:Return to the emergency room if her headache gets worse, vertigo becomes persistent or any new symptoms [facility] 04-09-2022 Evaluation note Encounter Date Diagnosis Assessment [...] She was prescribed Zofran with no improvement. [employer] Other 07-06-2022 Evaluation note* Encounter Date Diagnosis Assessment Notes Treatment Notes Treatment Clinical Notes Mar, Acute otitis externa of left ear, unspecified type (ICD-10 - H60.502) Otitis externa home care material was printed Drink plenty fluids, get plenty of rest. Use the eardrops as prescribed. Take Tylenol or Motrin as needed for aches pains or fevers. Follow-up with your family physician if no improvement in 2 to 3 days. No swimming for a week [employer] Other 01-28-2022 NoteOPERATIVE NOTE PROCEDURE: Diagnostic laparoscopy. PREOPERATIVE DIAGNOSIS: Pelvic pain, dyspareunia dysmenorrhea. POSTOPERATIVE DIAGNOSIS: Pelvic pain, dyspareunia dysmenorrhea. ANESTHESIA: General. SURGEON: Devan Tello D.O. SHOP CLERK: JAE Worley URINE OUTPUT: Yellow and [...] taken to Recovery Room in stable condition. [facility] Signed and Approved by: DR DEVAN TELLO . 11/01/2021 17:31:00[facility] No data available for this section [facility] [employer] Other Evaluation note* Diagnosis Third trimester state, incidental Excessive growth affecting management of in third trimester, single or unspecified fetus documented in this encounter [facility] HealthcareEvaluation note* Diagnosis Well woman exam with routine gynecological exam Routine gynecological examination UTI symptoms Missed menses documented in this encounter [facility] HealthcareEvaluation note* Diagnosis Post depression ([facility])- Primary Mental disorders of mother, complicating , childbirth, or the puerperium, unspecified as to episode of care [facility]* Diagnosis Post depression ([facility]) Mental disorders of mother, complicating , childbirth, or the puerperium, unspecified as to episode of care [facility]* Diagnosis Exposure to STD documented in this [facility]* Diagnosis Missed menses , unspecified gestational age Encounter for supervision of normal first in first trimester 9 weeks gestation of documented in this encounter [facility]* Diagnosis 17 weeks gestation of ([facility]) Second trimester ([facility]) state, incidental Screening, , for anatomic survey ([facility]) Encounter for anatomic survey Exposure to STD Vaginal discharge Leukorrhea, not specified as infective documented [facility] this encounter [facility]* Diagnosis Second trimester ([facility]) state, incidental 21 weeks gestation of ([facility]) documented in this encounter [facility]* Diagnosis 24 weeks gestation of ([facility]) Second trimester ([facility]) state, incidental Subchorionic hemorrhage of placenta, antepartum ([facility]) Diabetes mellitus screening Screening for diabetes mellitus documented in this encounter [facility] Narrative - Reported* Type Description Date Medical History acid reflux Medical History headache Surgical History lip surgery Surgical History endometriosis Hospitalization History RSV as a baby [employer] Other Progress note No data available for this section [facility] Summary Purpose Family History No Family History Records FoundNo Family History Records FoundNo Family History Records Found Advance Directives No Advanced Directives Records FoundNo Advanced Directives Records FoundNo Advanced Directives Records Found Additional Source Comments REASON FOR VISIT (unrecogniz ed section and content) Reason Comments Routine Visit Reason Comments Well Women Visit Reason Comments Post Depression Reason Comments STI Screening Pt present today for std check Reason Comments Amenorrhea Care Team (unrecognized sect ion and content) Woods Rider Relationship Specialty Start Date End Date Adryan Marie MD [address] [place] [place] [address] PCP - General Family Medicine 06/19/23 Woods Rider Relationship Specialty Start Date End Date Adryan Marie MD [address] [place] [address] PCP - General Family [facility] 06/19/23 Woods Rider Relationship Specialty Start Date End Date Adryan Marie MD [address] [place] [address] PCP - General Family [facility] 06/19/23 Woods Rider Relationship Specialty Start Date End Date Adryan Marie MD [address] [place] [address] PCP - General Family [facility] 06/19/23 Woods Rider Relationship Specialty Start Date End Date Adryan Marie MD [address] [place] [address] PCP - General [facility] 06/19/23 Woods Rider Relationship Specialty Start Date End Date Adryan Marie MD [address] [place] [address] PCP - General Family [facility] 06/19/23 Woods Rider Relationship Specialty Start Date End Date Adryan Marie MD [address] [place] [address] PCP - General Family [facility] 06/19/23 Devan Tello DO [address] [place] [address] [place] [address] PCP [facility] 09/28/24 Woods Rider Relationship Specialty Start Date End Date Adryan Marie MD [address] [place] [address] PCP - General Family [facility] 06/19/23 Devan Tello, DO [address] [place] [address] PCP - [facility] 09/28/24 Woods Rider Relationship Specialty Start Date End Date Adryan Marie MD [address] [place] [address] PCP - [facility] 06/19/23 Devan Tello, [place] [facility] [place] [address] PCP - [facility] 09/28/24 Woods Rider Relationship Specialty Start Date End Date Adryan Marie MD [address] [place] [address] PCP - [facility] 06/19/23 Devan Tello, [place] [facility] [place] [address] PCP - [facility] 09/28/24 Woods Rider Relationship Specialty Start Date End Date Adryan Marie MD [address] [place] [address] PCP - [facility] 06/19/23 Devan Tello, [place] [facility] [place] [address] PCP [facility] 09/28/24 Woods Rider Relationship Specialty Start Date End Date Adryan Marie MD [address] [place] [address] PCP - General [facility] 06/19/23 Devan Tello, DO [address] [place] [address] PCP [facility] 09/28/24 Woods Rider Relationship Specialty Start Date End Date Adryan Marie MD [address] [place] [address] PCP - [facility] 06/19/23 Devan Tello, DO [facility] [place] [address] PCP [facility] 09/28/24 Woods Rider Relationship Specialty Start Date End Date Adryan Marie MD [address] [place] [address] PCP - [facility] 06/19/23 Devan Tello, DO [facility] [place] [address] PCP [facility] 09/28/24 Woods Rider Relationship Specialty Start Date End Date Adryan Marie MD [address] [place] [address] PCP - [facility] 06/19/23 Devan Tello, DO [address] [place] [address] PCP [facility] 09/28/24 INFORMATION SOURCE (unrecogn ized section and content) DATE CREATED AUTHOR 04/26/2022 [facility] DATE CREATED AUTHOR AUTHOR'S ORGANIZ ATION 09/19/2022 [facility] DATE CREATED AUTHOR AUTHOR'S SAMMI HART 05/17/2025 [facility] dical Specialists [facility] FOR RECORDS PERTAINING TO PATIENTS [...] BE BASED ON THE PRIMARY CLINICAL RECORDS. [facility] [employer] [facility]. provides no warranty or guarantee of the accuracy or completeness of information in this document.
[2025-05-26 09:01] LABS: Hematocrit 33.9 % (36.0-48.0); Hemoglobin 11.6 g/dL (12.0-16.0); Immature Granulocytes Abs Auto 0.06 10^3/uL (0.00-0.03); Immature Granulocytes Pct Auto 0.6 % (0.0-0.5); Lymphocytes Absolute Auto 1.2 10^3/uL (1.2-3.8); Mean Corpuscular HGB Conc 34.2 g/dL (29.9-35.2); Mean Corpuscular Hemoglobin 31.5 pg (26.7-34.0); Mean Corpuscular Volume 92.1 fL (81.0-99.0); Platelet Count 250 10^3/uL (150-450); Red Blood Count 3.68 10^6/uL (4.20-5.40); White Blood Count 9.6 10^3/uL (4.0-11.0)
[2025-05-26 09:02] LABS: Glucose 1 Hour 101 mg/dL (<130)
== END 2025-05-26 07:45 | disposition home or self-care (01) ==
LOC: LAB 07:45
PROVIDERS: PCP Family Medicine; Visit Provider Physician Assistant
DX: Z13.1 Encounter for screening for diabetes mellitus (principal)
CPT/HCPCS: 36415; 82950; 85025

== ENCOUNTER 2025-07-03 05:52 | Observation (INO) | payer OTHER, SELFPAY ==
--- OUTSIDE RECORDS SUMMARY | 2025-06-20 09:00 | XMS_ITS | Encounter Summary ---
Author Organization [facility] Address [address] [facility] [place] [address] Care Team Providers Care Loftsman Name Role Phone Roberto Marie MD Primary Care Provider + [phone] Devyn Tello DO Unavailable Encounter Details Date Type Department Care Team (Latest Contact Info) Description 06/20/2025 9:00 AM EDT Ancillary Procedure [facility] [address] [place] [address] size inconsistent with dates ([facility]) Social History Tobacco Use Types Packs/Day Years Used Date Smoking Tobacco: Former Comments:Current smoker (richar quency unknown) Alcohol Use Standard Drinks/Week Comments Never 0 (1 standard drink = 0.6 oz pur e alcohol) Estimated Date of Delivery Comme nts Yes 08/25/2025 Based on last me nstrual period of 11/18/2024 (Approximate) Sex and Gender Information Value Date Recorded Sex Assigned at Not on file Legal Sex Female 6:47 PM EDT Gender Identity Not on file Sexual Orientation Not on file documented as of this encounter Plan of Treatment Upcoming Encounters Date Type Department Care Team (Late st Contact Info) Description 07/05/2025 9:20 AM EDT Routine [facility] [address] [place] [address] Nichole Stallings, FUR REPAIR INSPECTOR [address] [place] [address] 07/18/2025 9:00 AM EDT Routine [facility] [address] [place] [address] [place] [phone] Devyn Tello, DO [address] [facility] [place] [address] 09/07/2025 9:00 AM EST Office Visit [facility] [address] [facility] [place] [phone] Devyn Tello, DO [address] [facility] [address] [place], [place] [id number] documented as of this encounter Goals Goal Patient Goal Type Associated Problems Recent Progress Patient-Stated? Author Reminders Care Plan OB Reminders No Open Scheduling, Background documented as of this encounter Procedures Procedure Name Priority Date/Time Associated Diagnosis Comments US OB FOLLOW UP TRANSABDOMINAL APPROACH Routine 06/20/2025 9:18 AM EDT size inconsistent with dates ([facility]) documented in this encounter Results * US OB follow up transabdominal approach (06/20/2025 9:18 AM EDT) Anatomical Region Laterality Modality Body Ultrasound 06/20/2025 11:5 7 AM EDT Impressions 06/20/2025 12:47 PM EDT Single, live intrauterine , current sonographic age of 31 weeks and 1 day, with an estimated date of delivery of August 21, 2025 (prior TOMASZ August 29, 2025). * Estimated Weight (g) by Percentile is based upon an accurate estimated age based on last menstrual period. TRANSCRIBED BY: ELECTRONICALLY SIGNED BY: Addi Cain MD Narrative 06/20/2025 12:47 PM EDT FINDINGS: Comparison made with prior exam April 18, 2025. A single, live intrauterine is present with normal cardiac rate of 148 beats per minute. Normal activity and amniotic fluid volume. Amniotic fluid index is 17 cm. Morphology is grossly normal. The current sonographic age is 31 weeks and 1 day, based on the following measurements: BPD 7.6 cm (30 weeks, 2 days) Head Circumference 28.9 cm (31 weeks, 6 days) Abdominal Circumference 28.5 cm (32 weeks, 3 days) Femur Length 5.8 cm (30 weeks, 1 day) Presentation Cephalic Weight (g) by Percentile 70.9 % * These measurements result in an estimated date of delivery of August 21, 2025. The current estimated weight is 1784 grams (3 pounds, 15 ounces). Procedure Note Addi Cain MD - 06/20/2025 FINDINGS: Comparison made with prior exam April 18, 2025. A single, live intrauterine is present with normal cardiacrate of 148 beats per minute. Normal activity and amniotic fluidvolume. Amniotic fluid index is 17 cm. Morphology is grossly normal. Thecurrent sonographic age is 31 weeks and 1 day, based on the followingmeasurements: BPD 7.6 cm (30 weeks, 2 days) Head Circumference 28.9 cm (31 weeks, 6 days) Abdominal Circumference 28.5 cm (32 weeks, 3 days) Femur Length 5.8 cm (30 weeks, 1 day) Presentation Cephalic Weight (g) by Percentile 70.9 % * These measurements result in an estimated date of delivery of July. The current estimated weight is 1784 grams (3 pounds, 15ounces). IMPRESSION: Single, live intrauterine , current sonographic age of 31 weeksand 1 day, with an estimated date of delivery of August 21, 2025 (priorEDD August 29, 2025). * Estimated Weight (g) by Percentile is based upon an accurateestimated age based on last menstrual period. TRANSCRIBED BY: ELECTRONICALLY SIGNED BY: Addi Cain MD us Devyn Tello DO [facility] OB US PROCEDURES Final Resul t documented in this encounter Visit Diagnoses Diagnosis size inconsistent with dates ([facility]) documented in this encounter Additional Health Concerns Active Problems Noted Date Diagnosed Date OB Reminders 06/27/2023 documented as of this encounter Care Teams Loftsman Relationship Specialty Start Date End Date Roberto Marie MD [address] [place] [address] PCP - General Family Medicine 06/19/23 Devyn Tello DO [address] [place] [address] [place] [address] [facility] documented as of this encounter
--- OUTSIDE RECORDS SUMMARY | 2025-06-20 09:30 | XMS_ITS | Encounter Summary ---
Author Organization [facility] Address [address] [facility] [place] [address] Care Team Providers Care Blast Furnace Helper Name Role Phone Roberto Marie MD Primary Care Provider + [phone] Devyn Tello DO Unavailable Reason for Visit * Reason Comments Routine Visit Encounter Details Date Type Department Care Team (Late st Contact Info) Description 06/20/2025 9:30 AM EDT Routine [facility] [place] [facility] [address] [facility] [place] [address] Devyn Tello DO [address] [facility] [address] [place], [facility]11 Third trimester ([facility]); 30 weeks gestation of ([facility]) Social History Tobacco Use Types Packs/Day Years [...] on file documented as of this encounter Last Filed Vital Signs Vital Sign Reading Time Taken Comments Blood Pressure 112/70 06/20/2025 9:23 AM EDT Pulse - - Temperature - - Respiratory Rate - - Oxygen Saturation - - Inhaled Oxygen Concentration - - Weight 98.5 kg (217 lb 4 oz) 06/20/2025 9:23 AM EDT Height - - Body Mass Index 36.15 03/08/2024 11:37 AM EDT documented in this encounter Progress Notes * Tricia Ozuna, VALUE ANALYST - 06/20/2025 9:30 AM EDT Reason for Appointment: Patient ID: Breonna Reynoso is a 24 y.o. female who presents for Routine Visit Patient presents today for Return OB appointment. MEDICATIONS Current Outpatient Medications Medication Instructions [id number]-3 ( GUMMIES/DHA & FA PO) 1 each, Daily ALLERGIES Allergies Allergen Reactions Sulfa Antibiotics Fever, Hives and Rash PROBLEMS Active Ambulatory Problems Diagnosis Date Noted Third trimester ([facility]) 06/20/2025 30 weeks gestation of ([facility]) 06/20/2025 Resolved Ambulatory Problems Diagnosis Date Noted No [...] nursing note reviewed. Exam conducted with a hedge fund manager present. Vitals: Estimated body mass index is 36.15 kg/m?? as calculated from the following: Height as of 24: 5' 5 . Weight as of this encounter: 217 lb 4 oz. BP: 112/70 Patient's last menstrual period was 11/18/2024 (approximate). ASSESSMENT & PLAN ICD-10-CM 1. Third trimester ([facility]) Z34.93 POCT urinalysis dipstick manually resulted 2. 30 weeks gestation of ([facility]) Z3A.30 POCT urinalysis dipstick manually resulted Return OB: Patient presents today for a routine obstetrics appointment. Patient is currently 30w4d . Patient states she is doing well but has complaints of being tired due to current . Patient has verbalizes frequent movement. labor precautions was discussed/given and patient was instructed to perform kick counts three times a day. Orders Placed This Encounter Procedures POCT urinalysis dipstick manually resulted Follow Up: Patient is to return to office in 2 week for routine OB appointment. Documented by Tricia Ozuna LPN on behalf of: Devyn Tello DO documented in this encounter Plan of Treatment Upcoming Encounters Date Type Department Care Team (Late st Contact Info) Description 07/05/2025 9:20 AM EDT Routine [facility] [address] [place] [address] [place] [phone] Nichole Stallings, CLERICAL WAREHOUSEMAN [address] [facility] [address] [facility] [place] [phone] 07/18/2025 9:00 AM EDT Routine [facility] [address] [place] [address] [place] [phone] Devyn Tello, DO [address] [facility] [place] [address] 09/07/2025 9:00 AM EST Office Visit [facility]ION [facility] [address] [place] [address] [place] [address] Devyn Tello, DO [address] [facility] [place] [address] documented as of this encounter Goals Goal Patient Goal Type Associated Problems Recent Progress Patient-Stated? Author Reminders Care Plan OB Reminders No Open Scheduling, Background documented as of this encounter Procedures Procedure Name Priority Date/Time Associated Diagnosis Comments POCT URINALYSIS DIPSTICK Routine 06/20/2025 9:36 AM EDT Third trimester ([facility]) 30 weeks gestation of ([facility]) documented in this encounter Results * POCT urinalysis dipstick manually resulted (06/20/2025 9:36 AM EDT) Color, UA Yellow Clarity, UA Clear Glucose, UA Negative Negative - 1999(110) ++++ mg/dL Bilirubin, UA Negative Negative - 4(70) +++ mg/dL Ketones, UA Negative Negative - 160(16) ++++ mg/dL Spec Grav, UA 1.010 1 - 1.03 Blood, UA Negative Negative - 50 Cedric/mcL pH, UA 7.0 5 - 9 Protein, UA Negative Negative - 1999(20) ++++ mg/dL Urobilinogen, UA 0.2 0.2 - 12 mg/dL Leukocytes, UA Negative Negative - 500+++ Alessandro/mcL Nitrite, UA Negative Negative - Positive Urine 06/20/2025 9:36 AM EDT Devyn Tello DO POINT OF CARE TEST ENTER/EDIT OR DERABLES Final Result documented in this encounter Visit Diagnoses Diagnosis Third trimester ([facility]) state, incidental 30 weeks gestation of ([facility]) documented in this encounter Additional Health Concerns Active Problems Noted Date Diagnosed Date OB Reminders 06/27/2023 documented as of this encounter Care Teams Blast Furnace Helper Relationship Specialty [place] [address] [place] [id number] PCP - General Family Medicine 06/19/23 Devyn Tello DO [address] [place] [address] [place] [address] PCP - [facility] 09/28/24 documented as of this encounter
--- OUTSIDE RECORDS SUMMARY | 2025-07-03 05:57 | XMS_ITS | Encounter Summary ---
Author Organization [facility] Address [address] [facility] [place] [address] Care Team Providers Care Engine Assembler Name Role Phone Adryan Moore MD Primary Care Provider + [phone] Devan Tlelo DO Unavailable Encounter Details Date Type Department Care Team (Late st Contact Info) Description 09/17/2023 Clinisync Result Encounter N[facility]S External Department Unsolicited Devan Tello, DO [address] [facility] [place] [address] Social History Tobacco Use Types Packs/Day Years Used Date Smoking Tobacco: Unknown Comments:Current smoker (richar quency unknown) Alcohol Use Standard Drinks/Week Comments Never 0 (1 standard drink = 0.6 oz pur e alcohol) Comments Yes Sex and Gender Information Value Date Recorded Sex Assigned at Not on file Legal Sex Female 6:47 PM EDT Gender Identity Not on file Sexual Orientation Not on file documented as of this encounter Plan of Treatment Upcoming Encounters Date Type Department Care Team (Late st Contact Info) Description 07/05/2025 9:20 AM EDT Routine [facility] [address] [place] [address] Nichole Stallings, YURI [address] [facility] [place] [address] 07/18/2025 9:00 AM EDT Routine [facility] [address] [place] [address] [place] [phone] Devan Tello DO [address] [place], [place] [phone] 09/07/2025 9:00 AM EST Office Visit [facility] [address] [facility] [place] [phone] Devan Tello DO [address] [place] [address] documented as of this encounter Goals Goal Patient Goal Type Associated Problems Recent Progress Patient-Stated? Author Reminders Care Plan OB Reminders No Open Scheduling, Background documented as of this encounter Procedures Procedure Name Priority Date/Time Associated Diagnosis Comments US OB ANATOMY 09/17/2023 10:25 PM EST documented in this encounter Results * US OB ANATOMY (09/17/2023 10:25 PM EST) Anatomical Region Laterality Modality Other 09/17/2023 10:2 5 PM EST Narrative 09/17/2023 10:27 PM EST [address] [address] Ultrasound Report Signed Patient: JUANPABLO REYNOSO MR#: [id number] : 2000 Acct:[id number] Age/Sex: 23 / F ADM Date: 09/17/23 Loc: US Attending Dr: Devan Tello D.O. Ordering Physician: Devan Tello D.O. Date of Service: 09/17/23 Procedure(s): US OB anatomy Accession Number(s): [id number] cc: ADRYAN MOORE ; Devan Tello D.O. [address] [address] Patient Name: JUANPABLO REYNOSO MRN: [id number] date: 2000 Sex: F Assigned Patient Location: US Current Patient Location: US Accession/Order Number: [id number] Exam Date: 09/17/2023 08:38 Report Date: 09/17/2023 22:25 At the request of: DEVAN TELLO Procedure: US OB anatomy EXAMINATION: US OB anatomy, US OB cervical length HISTORY: ANATOMY COMPARISON: No relevant comparison available. TECHNIQUE: Transabdominal sonographic examination was performed for obstetrical and evaluation. FINDINGS: Number: 1 Heart Rate: 147.0 bpm H.B. /min Amniotic Fluid Volume: Subjectively normal Placental Location: POSTERIOR with lower margin 6.1 cm from os. Cervix Length: 5.6 cm; closed. ANATOMY: Normal Structures -cerebellum, choroid plexus, cisterna magna, lateral cerebral ventricles, orbits, midline falx, hard palate, four-chamber heart, RVOT, LVOT, stomach, kidneys, bladder, umbilical cord insertion into abdomen, three-vessel cord, cervical spine, thoracic spine, lumbar spine, sacral spine, right upper extremity, left upper extremity, right lower extremity, left lower extremity. SUBOPTIMALLY SEEN: None ABNORMALITIES: None BIOMETRY: BPD: 5.2 cm 21 weeks 6 days HC: 19.1 cm 21 weeks 2 days AC: 16.7 cm 21 weeks 5 days FL: 3.6 cm 21 weeks 3 days EFW:435.4 grams; 69% FL/AC: 21.7 FL/BPD: 69.5 HC/AC: 1.1 GESTATIONAL AGE: Age by EDC: 21 weeks 1 days TOMASZ by EDC: 01/27/2024 Age by current US: 21 weeks 4 days TOMASZ by current US: 01/24/2024 US/US OB anatomy IMPRESSION: 1. Single live intrauterine with growth detailed above. Electronically authenticated by: MATTHEW GROVE Date: 09/17/2023 22:25 Dictated By: Matthew Grove M.D. Signed By: 09/17/232226 DD/ 24 TD/TT: Bank Cashier: Procedure Note Radiology, Radiologist, - 09/17/2023 [place] [address] Ultrasound Report Signed Patient: TERE REYNOSO#: [id number] : 2000Acct:[id number] Age/Sex: 23 / FADM Date: 09/17/23 Loc: US Attending Dr: Devan Tello D.O. Ordering Physician: Devan Tello D.O. Date of Service: 09/17/23 Procedure(s): US OB anatomy Accession Number(s): [id number] cc: ADRYAN MOORE ; Devan Tello D.O. [place] [address] Patient Name: JUANPABLO REYNOSO MRN: [id number] date: 2000 Sex: F Assigned Patient Location: US Current Patient Location: US Accession/Order Number: [id number] Exam Date: 09/17/2023 08:38 Report Date: 09/17/2023 22:25 At the request of: DEVAN TELLO Procedure: US OB anatomy EXAMINATION: US OB anatomy, US OB cervical length HISTORY: ANATOMY COMPARISON: No relevant comparison available. TECHNIQUE: Transabdominal sonographic examination was performed for obstetrical and evaluation. FINDINGS: Number: 1 Heart Rate: 147.0 bpm H.B. /min Amniotic Fluid Volume: Subjectively normal Placental Location: POSTERIOR with lower margin 6.1 cm from os. Cervix Length: 5.6 cm; closed. ANATOMY: Normal Structures -cerebellum, choroid plexus, cisterna magna, lateral cerebral ventricles, orbits, midline falx, hard palate, four-chamberheart, RVOT, LVOT, stomach, kidneys, bladder, umbilical cord insertion intoabdomen, three-vessel cord, cervical spine, thoracic spine, lumbar spine, sacralspine, right upper extremity, left upper extremity, right lower extremity, leftlower extremity. SUBOPTIMALLY SEEN: None ABNORMALITIES: None BIOMETRY: BPD: 5.2 cm 21 weeks 6 days HC: 19.1 cm 21 weeks 2 days AC: 16.7 cm 21 weeks 5 days FL: 3.6 cm 21 weeks 3 days EFW:435.4 grams; 69% FL/AC: 21.7 FL/BPD: 69.5 HC/AC: 1.1 GESTATIONAL AGE: Age by EDC: 21 weeks 1 days TOMASZ by EDC: 01/27/2024 Age by current US: 21 weeks 4 days TOMASZ by current US: 01/24/2024 US/US OB anatomy IMPRESSION: 1. Single live intrauterine with growth detailed above. Electronically authenticated by: MATTHEW GROVE Date: 09/17/2023 22:25 Dictated By: Matthew Grove M.D. Signed By:09/17/232226 DD/ 24 TD/TT: Bank Cashier: us Devan Tello DO [facility] Final Result documented in this encounter Visit Diagnoses Not on filedocumented in this encounter Additional Health Concerns Active Problems Noted Date Diagnosed Date OB Reminders 06/27/2023 documented as of this encounter Care Teams Engine Assembler Relationship Specialty Start Date End Date Adryan Moore MD [address] [place] [address] PCP - General Family Medicine 06/19/23 Devan Tello DO [address] [place] [address] [place] [address] PCP - [facility] 09/28/24 documented as of this encounter
--- OUTSIDE RECORDS SUMMARY | 2025-07-03 05:57 | XMS_ITS | Clinical Summary ---
Author Organization [facility] Address [address] [place] [address] Care Team Providers Care Channel Director Name Role Phone Roberto Marie MD Primary Care Provider + [phone] Devny Tello DO Unavailable Allergies Active Allergy Reactions Criticality Noted Date Comments Sulfa Antibiotics Fever,Hives,Rash Low 06/17/2018 Medications SZ-Cam-ES-[place]- 3 ( GUMMIES/DHA & FA PO) Take 1 each by mouth Daily Active Active Problems Problem Noted Date Diagnosed Date Third trimester ([facility]) 06/20/2025 30 weeks gestation of ([facility]) 2024 Estimated Date of Delivery Comme nts Yes 08/25/2025 Based on last me nstrual period of 11/18/2024 (Approximate) Encounters Date Type Department Care Team Description 06/29/2025 Abstract [place] [id number] [place] [address] Cydney Alexis LPN 06/28/2025 Travel 06/26/2025 Patient Outreach [facility] [place] [address] Cydney Alexis LPN 06/20/2025 9:30 AM EDT Routine [facility] [place] [facility] [address] [place] [address] [place] [phone] Devyn Tello DO Third trimester ([facility]); 30 weeks gestation of ([facility]) 06/20/2025 9:00 AM EDT Ancillary Procedure [facility] [place] [address] size inconsistent with dates ([facility]) 06/13/2025 Travel 06/06/2025 10:20 AM EDT Routine [facility] [place] [address] Devyn Tello, Third trimester ([facility]); 28 weeks gestation of ([facility]); size inconsistent with dates ([facility]) 06/06/2025 Bamboo flowsheet [facility] [place] [facility] [place] [address] Devyn Tello DO 05/26/2025 Clinisync Result Encounter NOMS External Department Unsolicited Cydney Aviles PA 05/16/2025 9:20 AM EDT Routine [facility] [place] [address] Cydney Aviles PA 24 weeks gestation of ([facility]); Second trimester ([facility]); Subchorionic hemorrhage of placenta, antepartum ([facility]); Diabetes mellitus screening 05/16/2025 Bamboo flowsheet [facility] [place] [address] Cydney Aviles PA 05/09/2025 Travel 04/18/2025 9:20 AM EDT [facility] [place] [address] Devyn Tello, Second trimester ([facility]); 21 weeks gestation of ([facility]) 04/18/2025 8:00 AM EDT Ancillary Procedure [facility] [place] [address] 04/11/2025 Travel from Last 3 Months Family History Medical History Relation Name Comments Cancer Maternal Grandfather Sukhjinder prostat e Cervical cancer Maternal Grandmother high blood pressure Maternal Grandmother Cancer Mother Maya Diabetes Mother Maya Diabetes Mother's Sister Laura Lung cancer Paternal Grandmother Relation Name Status Comments Maternal Grandfather Sukhjinder Maternal Grandmother Mother Maya Mother's Sister Laura Paternal Grandmother Social History Tobacco Use Types Packs/Day Years Used Date Smoking Tobacco: Former Tobacco Cessation:Counseling Given: Not Answered Comments:Current smoker (frequency unknown) Alcohol Use Standard Drinks/Week Comments Never 0 (1 standard drink = 0.6 oz pur e alcohol) PHQ-2 Answer Date Recorded Patient Health Questionnaire-2 Score 0 06/27/2025 Estimated Date of Delivery Comme nts Yes 08/25/2025 Based on last me nstrual period of 11/18/2024 (Approximate) Sex and Gender Information Value Date Recorded Sex Assigned at Not on file Legal Sex Female 6:47 PM EDT Gender Identity Not on file Sexual Orientation Not on file Last Filed Vital Signs Vital Sign Reading Time Taken Comments Blood Pressure 112/70 06/20/2025 9:23 AM EDT Pulse - - Temperature - - Respiratory Rate - - Oxygen Saturation - - Inhaled Oxygen Concentration - - Weight 98.5 kg (217 lb 4 oz) 06/20/2025 9:23 AM EDT Height 165.1 cm (5' 5 ) 03/08/2024 11:37 AM EDT Body Mass Index 36.15 03/08/2024 11:37 AM EDT Plan of Treatment Upcoming Encounters Date Type Department Care Team (Late st Contact Info) Description 07/05/2025 9:20 AM EDT Routine [facility] [address] [place] [address] Nichole Stallings, YURI [address] [place] [address] 07/18/2025 9:00 AM EDT Routine [facility] OTTO [address] [place] [address] Devyn Tello DO [address] [facility] [place] [address] 09/07/2025 9:00 AM EST Office Visit [facility] [place] [address] [facility] [place] [phone] Devyn Tello, DO [address] [facility] [place] [address] Health Maintenance Due Date Last Done Comments Influenza Vaccine (#1) 2025 Goals Goal Patient Goal Type Associated Problems Recent Progress Patient-Stated? Author Reminders Care Plan OB Reminders No Open Scheduling, Background Procedures Procedure Name Priority Date/Time Associated Diagnosis Comments POCT URINALYSIS DIPSTICK Routine 06/20/2025 9:36 AM EDT Third trimester ([facility]) 30 weeks gestation of ([facility]) US OB FOLLOW UP TRANSABDOMINAL APPROACH Routine 06/20/2025 9:18 AM EDT size inconsistent with dates ([facility]) POCT URINALYSIS DIPSTICK Routine 06/06/2025 10:29 AM EDT Third trimester ([facility]) ALL CBC WITH AUTO DIFF Routine 8:48 AM EDT GLUCOSE 1 HOUR Routine 05/26/2025 8:48 AM EDT POCT URINALYSIS DIPSTICK Routine 05/16/2025 9:46 AM EDT 24 weeks gestation of ([facility]) Second trimester ([facility]) POCT URINALYSIS DIPSTICK Routine 04/18/2025 9:09 AM EDT Second trimester ([facility]) 21 weeks gestation of ([facility]) US OB 14+ WEEKS ANATOMY SCAN Routine 04/18/2025 9:05 AM EDT Screening, , for anatomic survey ([facility]) from Last 3 Months Results * POCT urinalysis dipstick manually resulted (06/20/2025 9:36 AM EDT) Only the most recent of4 resultswithin the time period is included. Color, UA Yellow Clarity, UA Clear Glucose, UA Negative Negative - 2000(110) ++++ mg/dL Bilirubin, UA Negative Negative - 4(70) +++ mg/dL Ketones, UA Negative Negative - 160(16) ++++ mg/dL Spec Grav, UA 1.010 1 - 1.03 Blood, UA Negative Negative - 50 Cedric/mcL pH, UA 7.0 5 - 9 Protein, UA Negative Negative - 2000(20) ++++ mg/dL Urobilinogen, UA 0.2 0.2 - 12 mg/dL Leukocytes, UA Negative Negative - 500+++ Alessandro/mcL Nitrite, UA Negative Negative - Positive Urine 06/20/2025 9:36 AM EDT us Devyn Omer DO POINT OF CARE TEST ENTER/EDIT OR DERABLES Final Result * US OB follow up transabdominal approach [...] SIGNED BY: Addi Cain MD us Devyn Omer DO [facility] OB US PROCEDURES Final Resul t * GLUCOSE 1 HOUR (05/26/2025 8:48 AM EDT) GLUCOSE 1 HOUR 101 <130 mg/dL [facility] 05/26/2025 8:48 AM EDT 05/26/2025 8:49 AM EDT Narrative [facility] - 05/26/2025 9:03 AM EDT us Cydney FARR LAB BLOOD ORDERABLES Final Resul t [facility] * (ABNORMAL) ALL CBC WITH AUTO DIFF (05/26/2025 8:48 AM EDT) [facility] WBC 9.6 4.0 - 11.0 10 3/uL TBH TBH RBC 3.68(L) 4.20 - 5.40 10 6/uL TBH TBH HGB 11.6(L) 12.0 - 16.0 g/dL TBH TBH HCT 33.9(L) 36.0 - 48.0 % TBH TBH MCV 92.1 81.0 - 99.0 fL TBH TBH MCH 31.5 26.7 - 34.0 pg TBH TBH MCHC 34.2 29.9 - 35.2 g/dL TBH TBH RDW 11.9 11.0 - 15.0 % TBH TBH PLT 250 150 - 450 10 3/uL TBH TBH MPV 10.8 9.5 - 13.5 fL TBH NEUTROPHILS PERCENT AUTO 78.6(H) 43.0 - 75.0 % TBH LYMPHOCYTES PERCENT AUTO 12.4(L) 20.5 - 60.0 % TBH MONOCYTES PERCENT AUTO 5.8 1.7 - 12.0 % TBH TBH EO % 2.3 0.9 - 7.0 % TBH BASOPHILS PERCENT AUTO 0.3 0.2 - 2.0 % TBH IMMATURE GRANULOCYTES PCT AUTO 0.6(H) 0.0 - 0.5 % TBH NEUTROPHILS ABSOLUTE AUTO 7.5(H) 1.4 - 6.5 10 3/uL TBH LYMPHOCYTES ABSOLUTE AUTO 1.2 1.2 - 3.8 10 3/uL TBH MONOCYTES ABSOLUTE AUTO 0.6 0.3 - 0.8 10 3/uL TBH TBH EO # 0.2 0.0 - 0.7 10 3/uL TBH BASOPHILS ABSOLUTE AUTO 0.0 0.0 - 0.1 10 3/uL TBH IMMATURE GRANULOCYTES ABS AUTO 0.06(H) 0.00 - 0.03 10 3/uL [facility] 05/26/2025 8:48 AM EDT 05/26/2025 8:49 AM EDT Narrative [facility] - 05/26/2025 9:06 AM EDT us Cydney POLK Final Result [facility] * US OB 14+ weeks anatomy scan (04/18/2025 9:05 AM EDT) Anatomical Region Laterality Modality Body Ultrasound 04/19/2025 10:1 8 AM EDT Narrative 04/19/2025 10:18 AM EDT EXAM: US OB 14+ WEEKS ANATOMY SCAN [...] anatomy. Interpreted by: Electronically signed by SAMARA SALINAS II, MD, PHD at 19-Apr-2025 10:16:24 AM [facility] Procedure Note Samara Salinas MD - 04/19/2025 EXAM: US OB 14+ WEEKS ANATOMY SCAN HISTORY: anatomy. COMPARISON: Ob ultrasound 02/27/2025. TECHNIQUE: Two-dimensional transabdominal grayscale ultrasound imaging ofthe pelvis was performed. FINDINGS: Gestation: Single Presentation: Cephalic Cardiac Activity: 136 beats per minute Placental Location: Anterior with no sonographic abnormalitiesidentified. Distance from Placental Tip to Cervix: 7.1 [...] is 21 weeks 0 days (+/- 10 daysgestation). Estimated Weight: 413 grams, +/- 62 grams [...] gestation 21 weeks, 4 days by LMP. Today'sultrasound measurements correlate with a gestational age of 21 weeks 0days. Estimated weight is 413 grams, +/- 62 grams ( 0 lb 15 oz)which correlates to 30 %. TOMASZ by today's ultrasound is 08/29/2025. 2. Unremarkable ultrasound of the anatomy. Interpreted by: Electronically signed by SAMARA SALINAS II, MD, PHD [id number] 10:16:24 AM [facility] us Devyn Tello DO IMG OB US PROCEDURES Final Resul t from Last 3 Months Additional Health Concerns Active Problems Noted Date Diagnosed Date OB Reminders 06/27/2023 Insurance [address] [place] [address] [employer] Care Teams Channel Director Relationship Specialty [place] [address] [place] [id number] PCP - General Family Medicine 06/19/23 Devyn Tello DO [address] [place] [address] [place] [address] PCP - [facility] 09/28/24
--- OUTSIDE RECORDS SUMMARY | 2025-07-03 05:57 | XMS_ITS | Encounter Summary ---
Author Organization [facility] Address [id number] [address] [place] [address] Care Team Providers Care Maintenance Manager Name Role Phone Roberto Marie MD Primary Care Provider [phone] Encounter Details Date Type Department Care Team (Late st Contact Info) Description 12/24/2023 Orders Only [facility] [address] [place] [address] External, Scanning Provider Social History Tobacco Use Types Packs/Day Years Used Date Smoking Tobacco: Former Cigarettes Smokeless Tobacco: Never Alcohol Use Standard Drinks/Week Comments No 0 (1 standard drink = 0.6 oz pur e alcohol) AUDIT-C Answer Date Recorded Frequency of Alcohol Consumption Never 06/27/2019 Average Number of Drinks Not on file 019 Frequency of Binge Drinking Not on file 05/31 PHQ-2 Answer Date Recorded Total Score 0 04/10/2023 Childcare Answer Date Recorded Childcare Unknown 03/09/2019 Employment Answer Date Recorded Employment Unknown 03/09/2019 Hunger Screening Answer Date Recorded Within the past 12 months we worried whether our food would run out before we got money to buy more. Never True 04/10/2023 Within the past 12 months th e food we bought just didn't last and we didn't have money to get more. Never True 04/10/2023 Purpose - Life Answer Date Recorded Purpose and direction in life Unknown Comments No Sex and Gender Information Value Date Recorded Sex Assigned at Not on file Legal Sex Female 11:58 AM EDT Gender Identity Not on file Sexual Orientation Not on file documented as of this encounter Plan of Treatment Not on file documented as of this encounter Procedures Procedure Name Priority Date/Time Associated Diagnosis Comments US PREG TRANSABD FU PER FETU Routine 12/24/2023 BIOPHYSICAL PROFILE NON-STRESS TESTING Routine 12/23/2023 documented in this encounter Results * Ultrasound transabdominal follow up per fetus (12/24/2023) Anatomical Region Laterality Modality OB-AIRCRAFT STRUCTURAL REPAIRER Ultrasound 12/24/2023 us Scanning Provider External IMG US ORDERABLES Fin al Result * BIOPHYSICAL PROFILE NON-STRESS TESTING (12/23/2023) 12/23/2023 us Scanning Provider External [facility] Final Result MANUALLY TRANSCRIBED RESULTS documented in this encounter Visit Diagnoses Not on filedocumented in this encounter Additional Health Concerns Assessment Noted Time PHQ-9 Depression Total Score: 0 04/10/20 23 7:00 AM EDT documented as of this encounter Care Teams Maintenance Manager Relationship Specialty Start Date End Date Roberto Marie MD [address] Provider retired 12/27/24 [place] [address] PCP - General Family Medicine 02/01/18 documented as of this encounter
--- OUTSIDE RECORDS SUMMARY | 2025-07-03 05:57 | XMS_ITS | Encounter Summary ---
Author Organization [facility] Address [address] [place] [address] Care Team Providers Care Engineering Test Mechanic Name Role Phone Roberto Marie MD Primary Care Provider + [phone] Devyn Tello DO Unavailable Encounter Details Date Type Department Care Team (Late st Contact Info) Description 06/20/2023 Abstract [facility] [address] [place] [address] Devyn Tello DO [address] [place], [facility] Social History Tobacco Use Types Packs/Day Years Used Date Smoking Tobacco: Unknown Tobacco Cessation:Counseling Given: Not Answered Comments:Current smoker (frequency unknown) Alcohol Use Standard Drinks/Week Comments Never 0 (1 standard drink = 0.6 oz pur e alcohol) Comments Yes Sex and Gender Information Value Date Recorded Sex Assigned at Not on file Legal Sex Female 6:47 PM EDT Gender Identity Not on file Sexual Orientation Not on file COVID-19 Exposure Response Date Recorded In the last 10 days, have yo u been in contact with someone who was confirmed or suspected to have Coronavirus/COVID-19? No / Unsure 06/16/2023 9:37 AM EDT documented as of this encounter Plan of Treatment Upcoming Encounters Date Type Department Care Team (Late st Contact Info) Description 07/05/2025 9:20 AM EDT Routine [facility] [address] [facility] [place] [phone] Nichole Stallings, LUMP MAKER [address] [place] [phone] 07/18/2025 9:00 AM EDT Routine [facility] O[facility]O [address] [place] [address] [place] [phone] Devyn Tello, [address] [facility] [place], [place] [phone] 09/07/2025 9:00 AM EST Office Visit [facility] [address] [place] [address] [place] [phone] Devyn Tello, DO [address] [facility] [place], [place] [phone] documented as of this encounter Visit Diagnoses Not on filedocumented in this encounter Care Teams Engineering Test Mechanic Relationship Specialty [place] [address] [place] [address] [place] [address] PCP - General Family Medicine 06/19/23 Devyn Tello DO [address] [place] [address] [address] [place], [place] [phone] PCP - [facility] 09/28/24 documented as of this encounter
--- OUTSIDE RECORDS SUMMARY | 2025-07-03 05:57 | XMS_ITS | Encounter Summary ---
Author Organization [facility] Address [address] [place] [address] Care Team Providers Care Manager Books Name Role Phone Adryan Moore MD Primary Care Provider + [phone] Devan Tello DO Unavailable Encounter Details Date Type Department Care Team (Late st Contact Info) Description 09/17/2023 Clinisync Result Encounter NOMS External Department Unsolicited Devan Tello, DO [address] [facility] [place] [address] Social History Tobacco Use Types Packs/Day [...] AM EDT Routine [facility] Bk OBNABIL [address] [place] [address] Nichole Stallings, YURI [address] [facility] [place] [address] 07/18/2025 9:00 AM EDT Routine [facility] Bk OBGYN [address] [place] [address] [place] [phone] Devan Tello DO [address] [place], [place] [id number] 09/07/2025 9:00 AM EST Office Visit [facility] OTTO [address] [facility] [phone] Devan Tello [address] [facility] [address] [place], [place] [id number] documented as of this encounter Goals Goal Patient Goal Type Associated Problems Recent Progress Patient-Stated? Author Reminders Care Plan OB Reminders No Open Scheduling, Background documented as of this encounter Procedures Procedure Name Priority Date/Time Associated Diagnosis Comments US OB CERVICAL LENGTH 09/17/2023 10:25 PM EST documented in this encounter Results * US OB CERVICAL LENGTH (09/17/2023 10:25 PM EST) Anatomical Region Laterality Modality Other 09/17/2023 10:2 5 PM EST Narrative 09/17/2023 10:27 PM EST [address] [address] Ultrasound Report Signed Patient: JUANPABLO REYNOSO MR#: [id number] : 2000 Acct:[id number] Age/Sex: 23 / F ADM Date: 09/17/23 Loc: US Attending Dr: Devan Tello D.O. Ordering Physician: Devan Tello D.O. Date of Service: 09/17/23 Procedure(s): US OB cervical length Accession Number(s): [id number] cc: ADRYAN MOORE ; Devan Tello D.O. [address] [address] Patient Name: JUANPABLO REYNOSO MRN: [facility]:[id number] date: 2000 Sex: F Assigned Patient Location: US Current Patient Location: Accession/Order Number: [id number] Exam Date: 09/17/2023 08:38 Report Date: 09/17/2023 22:25 At the request of: DEVAN TELLO Procedure: US OB cervical length EXAMINATION: US OB anatomy, US OB cervical [...] TOMASZ by current US: 01/24/2024 US/US OB cervical length IMPRESSION: 1. Single live intrauterine with growth detailed above. Electronically authenticated by: MATTHEW GROVE Date: 09/17/2023 22:25 Dictated By: Matthew Grove M.D. Signed By: 09/17/232226 DD/ 24 TD/TT: Mangle Feeder: Procedure Note Radiology, Radiologist, - 09/17/2023 [place] [address] Ultrasound Report Signed Patient: TERE REYNOSO#: [id number] : 2000Acct:[id number] Age/Sex: 23 / FADM Date: 09/17/23 Loc: US Attending Dr: Devan Tello D.O. Ordering Physician: Devan Tello D.O. Date of Service: 09/17/23 Procedure(s): US OB cervical length Accession Number(s): [id number] cc: ADRYAN MOORE ; Devan Tello D.O. [place] [address] Patient Name: JUANPABLO REYNOSO MRN: [facility]:[id number] date: 2000 Sex: F Assigned Patient Location: US Current Patient Location: US Accession/Order Number: [id number] Exam Date: 09/17/2023 08:38 Report Date: 09/17/2023 22:25 At the request of: DEVAN TELLO Procedure: US OB cervical length EXAMINATION: US OB anatomy, US OB cervical [...] TOMASZ by current US: 01/24/2024 US/US OB cervical length IMPRESSION: 1. Single live intrauterine with growth detailed above. Electronically authenticated by: MATTHEW GROVE Date: 09/17/2023 22:25 Dictated By: Matthew Grove M.D. Signed By:09/17/232226 DD/ 24 TD/TT: Mangle Feeder: us Devan Tello DO [facility] Final Result documented in this encounter Visit Diagnoses Not on filedocumented in this encounter Additional Health Concerns Active Problems Noted Date Diagnosed Date OB Reminders 06/27/2023 documented as of this encounter Care Teams Manager Books Relationship Specialty Start Date End Date Adryan Moore MD [address] [place] [address] PCP - General Family Medicine 06/19/23 Devan Tello DO [address] [place] [address] [place] [address] PCP - [facility] 09/28/24 documented as of this encounter
--- OUTSIDE RECORDS SUMMARY | 2025-07-03 05:57 | XMS_ITS | Encounter Summary ---
Author Organization [facility] Address [facility] [id number] [address] [place] [address] Care Team Providers Care Director Internal Communications Name Role Phone Roberto Marie MD Primary Care Provider +1 [phone] Encounter Details Date Type Department Care Team (Late st Contact Info) Description 01/01/2024 Orders Only [facility] [address] [place] [address] External, Scanning Provider Social History [...] Name Priority Date/Time Associated Diagnosis Comments US BIOPHYSICAL PROFILE FET WO NST Routine 01/01/2024 2:24 PM EDT documented in this encounter Results * Ultrasound biophysical profile without non-stress testing (01/01/2024 2:24 PM EDT) Anatomical Region Laterality Modality OB-DESIGN COORDINATOR Ultrasound us Scanning Provider External IMG US ORDERABLES Fin al Result documented in this encounter Visit Diagnoses Not on filedocumented in this encounter Additional Health Concerns Assessment Noted Time PHQ-9 Depression Total Score: 0 04/10/20 23 7:00 AM EDT documented as of this encounter Care Teams Director Internal Communications Relationship Specialty Start Date End Date Roberto Marie MD [address] Provider retired 12/27/24 [place] [address] PCP - General Family Medicine 02/01/18 documented as of this encounter
--- OUTSIDE RECORDS SUMMARY | 2025-07-03 05:57 | XMS_ITS | Encounter Summary ---
Author Organization [facility] Address [address] [facility] [place] [address] Care Team Providers Care Station Engineer Name Role Phone Roberto Marie MD Primary Care Provider + [phone] Devyn Tello DO Unavailable Encounter Details Date Type Department Care Team (Late Contact Info) Description 02/15/2025 Abstract [facility] [place] [address] Devyn Tello DO [address] [facility] [address] [place], [facility] Social History Tobacco Use Types Packs/Day Years [...] Encounters Date Type Department Care Team (Late Contact Info) Description 07/05/2025 9:20 AM EDT Routine [facility] OTTO [address] [place] [address] Nichole Stallings COREMAKER [address] [facility] [place] [phone] 07/18/2025 9:00 AM EDT Routine [facility] OTT[facility] [address] [facility] [phone] Devyn Tello, DO [address] [facility] [address] [place], [facility]11 09/07/2025 9:00 AM EST Office Visit [facility]OMSamina OTTO [address] [facility] [place] [phone] Devyn Tello, DO [address] [facility] [address] [place], [place] [id number] documented as of this encounter Goals Goal Patient Goal Type Associated Problems Recent Progress Patient-Stated? Author Reminders Care Plan OB Reminders No Open Scheduling, Background documented as of this encounter Visit Diagnoses Not on filedocumented in this encounter Additional Health Concerns Active Problems Noted Date Diagnosed Date OB Reminders 06/27/2023 documented as of this encounter Care Teams Station Engineer Relationship Specialty Start Date End Date Roberto Marie MD [address] [place] [address] PCP - General Family Medicine 06/19/23 Devyn Tello DO [address] [place] [address] [place] [address] PCP - [facility] 09/28/24 documented as of this encounter
--- OUTSIDE RECORDS SUMMARY | 2025-07-03 05:57 | XMS_ITS | Clinical Summary ---
Author Organization [employer] Address [facility] [id number] [address] [place] [address] Care Team Providers Care Hat Brusher Machine Name Role Phone Roberto Marie MD Primary Care Provider Allergies Active Allergy Reactions Criticality Noted Date Comments Sulfa (Sulfonamide Antibiotics) Rash,Fever Low 05/30 Medications No known medications Active Problems No known active problems Immunizations Immunization Administration Dates Next Due DTaP, Unspecified 02/19/2007, 5,03/18/2002,01/12/2002,0 2001 Hep B, Adolescent or Pediatric 03/18/2002,2001,2001 HiB 05/23/2005,03/18/2002,01/12/2002 ,2001 IPV 02/19/2007, 5,08/14/2002,01/12/2002,0 2001 MMR 11/16/2002 MMRV 02/19/2007 Tdap 05/04/2014 Varicella 10/12/2002 Family History Medical History Relation Name Comments No Known Problems Father No Known Problems Mother Relation Name Status Comments Father Alive Mother Alive Social History Tobacco Use Types Packs/Day Years Used Date Smoking Tobacco: Former Cigarettes Smokeless Tobacco: Never Tobacco Cessation:Counseling Given: Not Answered Alcohol Use Standard Drinks/Week Comments No 0 (1 standard drink = 0.6 oz pur e alcohol) AUDIT-C Answer Date Recorded Frequency of Alcohol Consumption Never 06/27/2019 Average Number of Drinks Not on file 019 Frequency of Binge Drinking Not on file 05/31 Overall Financial Resource Strain (CARDIA) Answe r Date Recorded How hard is it for you to pa y for the very basics like food, housing, medical care, and heating? Not hard at all 05/23/2024 PHQ-2 Answer Date Recorded Total Score 0 04/10/2023 PRAPARE - Transportation Answer Date Re corded In the past 12 months, has l ack of transportation kept you from medical appointments or from getting medications? No 04/29 In the past 12 months, has l ack of transportation kept you from meetings, work, or from getting things needed for daily living? No 05/23/2024 Housing Instability Answer Date Recorde d Are you worried or concerned that in the next two months you may not have stable housing that you own, rent or stay in as a part of a household? No 05/23/2024 Childcare Answer Date Recorded Childcare Unknown 03/09/2019 Employment Answer Date Recorded Employment Unknown 03/09/2019 Hunger Screening Answer Date Recorded Within the past 12 months we worried whether our food would run out before we got money to buy more. Never True 05/23/2024 Within the past 12 months th e food we bought just didn't last and we didn't have money to get more. Never True 05/23/2024 Purpose - Life Answer Date Recorded Purpose and direction in life Unknown Comments No Sex and Gender Information Value Date Recorded Sex Assigned at Not on file Legal Sex Female 11:58 AM EDT Gender Identity Not on file Sexual Orientation Not on file Last Filed Vital Signs Vital Sign Reading Time Taken Comments Blood Pressure 148/80 04/10/2023 9:46 AM EDT Pulse 80 04/10/2023 9:46 AM EDT Temperature 36.9 C (98.5 F) 04/10/2023 9:46 AM EDT Respiratory Rate 16 04/10/2023 9:46 AM EDT Oxygen Saturation 99% 09/04/2022 2:12 PM EST Inhaled Oxygen Concentration - - Weight 97.8 kg (215 lb 8 oz) 04/10/2023 9:46 AM EDT Height 165.1 cm (5' 5 ) 04/10/2023 9:46 AM EDT Body Mass Index 35.86 04/10/2023 9:46 AM EDT Plan of Treatment Health Maintenance Due Date Last Done Comments Chlamydia Screening 2001 Tobacco Screening 2013 Adult BMI Screening 04/10/2024 04/10/2023 Depression Screening 04/10/2024 04/10/2023 DTaP,Tdap and Td Vaccines (7 - Td or Tdap) 05/04/2024 05/04/2014, 02/19/2007, 05/23/2005, Additional history exists Influenza Vaccine 05/29/2025 Pap Smear 08/13/2026 08/13/2023 Medical Devices Not on file Insurance ANTHEM ANTHEM Care Teams Hat Brusher Machine Relationship Specialty Start Date End Date Roberto Marie MD [address]. Provider retired 12/27/24 [place] [address] PCP - General Family Medicine 02/01/18
--- OUTSIDE RECORDS SUMMARY | 2025-07-03 05:57 | XMS_ITS | Encounter Summary ---
Author Organization [facility] Address [address] [facility] [place] [address] Care Team Providers Care Cell Inspector Name Role Phone Roberto Marie MD Primary Care Provider + [phone] Devyn Tello DO Unavailable Encounter Details Date Type Department Care Team (Late Contact Info) Description 12/07/2024 Abstract [facility] OTTO [address] [facility] [place] [address] Devyn Tello DO [address] [place], [facility]11 Social History Tobacco Use Types Packs/Day Years Used Date Smoking Tobacco: Former Comments:Current smoker (richar quency unknown) Alcohol Use Standard Drinks/Week Comments Never 0 (1 standard drink = 0.6 oz pur e alcohol) Comments No Sex and Gender Information Value Date Recorded Sex Assigned at Not on file Legal Sex Female 6:47 PM EDT Gender Identity Not on file Sexual Orientation Not on file documented as of this encounter Plan of Treatment Upcoming Encounters Date Type Department Care Team (Late Contact Info) Description 07/05/2025 9:20 AM EDT Routine [facility] [address] [facility] [address] Nichole Stallings, HARD METALS HAND ENGRAVER [address] [facility] [place] [address] 07/18/2025 9:00 AM EDT Routine NOM[facility] OTTO [address] [facility] [place] [address] Devyn Tello, DO [address] [facility] [address] [place], [place] [address] 09/07/2025 9:00 AM EST Office Visit NOM[facility]ina OTTO [address] [facility] [place] [address] Devyn Tello, DO [address] [facility] [address] [place], [facility]11 documented as of this encounter Goals Goal Patient Goal Type Associated Problems Recent Progress Patient-Stated? Author Reminders Care Plan OB Reminders No Open Scheduling, Background documented as of this encounter Visit Diagnoses Not on filedocumented in this encounter Additional Health Concerns Active Problems Noted Date Diagnosed Date OB Reminders 06/27/2023 documented as of this encounter Care Teams Cell Inspector Relationship Specialty Start Date End Date Roberto Marie MD [address] [place] [address] PCP - General Family Medicine 06/19/23 Devyn Tello DO [address] [facility] [place] [place] [address] PCP - [facility] 09/28/24 documented as of this encounter
--- OUTSIDE RECORDS SUMMARY | 2025-07-03 05:57 | XMS_ITS | Encounter Summary ---
Author Organization [facility] Address [address] [facility] [place] [address] Care Team Providers Care Ship Mate Name Role Phone Roberto Marie MD Primary Care Provider + [phone] Devyn Tello DO Unavailable Encounter Details Date Type Department Care Team (Late Contact Info) Description 01/20/2024 Abstract [facility]O [address] [place] [address] Devyn Tello DO [address] [place] Johanny [place], [facility]11 Social History Tobacco Use Types Packs/Day Years [...] 07/05/2025 9:20 AM EDT Routine MARION O[facility]O [address] [place], [place] [address] [address] Nichole Stallings, PUMP HOUSE OPERATOR [address] [facility] [place] [address] 07/18/2025 9:00 AM EDT Routine NOM[facility]ina OTTO [address] [facility] [place] [address] Devyn Tello, DO [address] [facility] [address] [place], [place] [id number] 09/07/2025 9:00 AM EST Office Visit NOMSamina OTTO [address] [facility] [place] [address] Devyn Tello, DO [address] [facility] [address] [place], [facility]11 documented as of this encounter Goals Goal Patient Goal Type Associated Problems Recent Progress Patient-Stated? Author Reminders Care Plan OB Reminders No Open Scheduling, Background documented as of this encounter Visit Diagnoses Not on filedocumented in this encounter Additional Health Concerns Active Problems Noted Date Diagnosed Date OB Reminders 06/27/2023 documented as of this encounter Care Teams Ship Mate Relationship Specialty Start Date End Date Roberto Marie MD [address] [place] [address] PCP - General Family Medicine 06/19/23 Devyn Tello DO [address] [facility] [place] [address] PCP - [facility] 09/28/24 documented as of this encounter
--- OUTSIDE RECORDS SUMMARY | 2025-07-03 05:57 | XMS_ITS | Encounter Summary ---
Author Organization [facility] [facility] [employer] Address [facility] [id number] [address] [place] [address] Care Team Providers Care Clothing Examiner Name Role Phone Roberto Marie MD Primary Care Provider +1 [phone] Encounter Details Date Type Department Care Team (Late st Contact Info) Description 01/15/2024 Orders Only [facility] [address] [place] [address] External, Scanning Provider Social History [...] Procedure Name Priority Date/Time Associated Diagnosis Comments MULTIPLE RADS Routine 01/13/2024 documented in this encounter Results * Multiple rads (01/13/2024) Anatomical Region Laterality Modality Other 01/13/2024 us Scanning Provider External [facility] Final Result documented in this encounter Visit Diagnoses Not on filedocumented in this encounter Additional Health Concerns Assessment Noted Time PHQ-9 Depression Total Score: 0 04/10/20 23 7:00 AM EDT documented as of this encounter Care Teams Clothing Examiner Relationship Specialty Start Date End Date Roberto Marie MD [address] Provider retired 12/27/24 [place] [address] PCP - General Family Medicine 02/01/18 documented as of this encounter
--- OUTSIDE RECORDS SUMMARY | 2025-07-03 05:57 | XMS_ITS | Encounter Summary ---
Author Organization [facility] Address [address] [facility] [place] [address] Care Team Providers Care Manager Planning Name Role Phone Adryan Moore MD Primary Care Provider Devan Tello DO Unavailable Encounter Details Date Type Department Care Team (Late st Contact Info) Description 06/19/2023 Clinisync Result Encounter NOMS External Department Unsolicited Devan Tello, [address] [place], [facility] Social History Tobacco Use Types Packs/Day Years Used Date Smoking Tobacco: Never Assessed Comments Yes Sex and Gender Information Value [...] 07/05/2025 9:20 AM EDT Routine [facility] Bk OBGYN [address] [place] [address] Nichole Stallings, TURNTABLE ENGINEER [address] [place] [address] 07/18/2025 9:00 AM EDT Routine NOMSamina Modestorosalba OTTO [address] [place] [address] [place] [address] Devan Tello, DO [address] [facility] [place] [address] 09/07/2025 9:00 AM EST Office Visit MARION O[facility]O [address] [facility] [address] Devan Tello, DO [address] [facility] [place] [address] documented as of this encounter Procedures Procedure Name Priority Date/Time Associated Diagnosis Comments US OB TRANSVAGINAL 06/19/2023 3: 39 PM EDT documented in this encounter Results * US OB TRANSVAGINAL (06/19/2023 3:39 PM EDT) Anatomical Region Laterality Modality Other 06/19/2023 3:39 PM EDT Narrative 06/19/2023 3:39 PM EDT The [address] [address] Ultrasound Report Signed Patient: JUANPABLO REYNOSO MR#: [id number] : 2000 Acct:[id number] Age/Sex: 22 / F ADM Date: 06/19/23 Loc: US Attending Dr: Devan Tello D.O. Ordering Physician: Devan Tello D.O. Date of Service: 06/19/23 Procedure(s): US OB transvaginal Accession Number(s): [id number] cc: ADRYAN MOORE ; Devan Tello D.O. The [address] [address] Patient Name: JUANPABLO REYNOSO MRN: [facility]:[id number] date: 2000 Sex: F Assigned Patient Location: US Current Patient Location: US Accession/Order Number: [id number] Exam Date: 06/19/2023 10:08 Report Date: 06/19/2023 15:39 At the request of: DEVAN TELLO Procedure: US OB transvaginal EXAMINATION: US OB transvaginal HISTORY: MISSED MENSES COMPARISON: No relevant comparison available. FINDINGS: GESTATIONAL SAC: Present and normal appearing. YOLK SAC: Present and normal appearing. POLE: Present and normal appearing. CARDIAC: Present. UTERUS: Normal size and appearance. OVARIES: Right: Normal. Left: Normal. CERVIX: 3.4 cm in length and closed. CUL-DE-SAC: Normal. OTHER: None. AGE BY LMP: 8 weeks 2 days TOMASZ BY LMP: 01/27/2024 AGE BY US CRL: 7 weeks 5 days TOMASZ BY US CRL: 01/31/2024 US/US OB transvaginal IMPRESSION: 1. Single live intrauterine . Electronically authenticated by: MATTHEW GROVE Date: 06/19/2023 15:39 Dictated By: Matthew Grove M.D. Signed By: 06/19/23 1542 DD/ 1539 TD/TT: Toll Collector Supervisor: Procedure Note Radiology, Radiologist, MD - 06/19/2023 [place] [address] Ultrasound Report Signed Patient: TERE REYNOSO#: [id number] : 2000Acct:[id number] Age/Sex: 22 / FADM Date: 06/19/23 Loc: US Attending Dr: Devan Tello D.O. Ordering Physician: Devan Tello D.O. Date of Service: 06/19/23 Procedure(s): US OB transvaginal Accession Number(s): [id number] cc: ADRYAN MOORE ; Devan Tello D.O. The [place] [id number] Patient Name: JUANPABLO REYNOSO MRN: [facility]:[id number] date: 2000 Sex: F Assigned Patient Location: US Current Patient Location: US Accession/Order Number: [id number] Exam Date: 06/19/2023 10:08 Report Date: 06/19/2023 15:39 At the request of: DEVAN TELLO Procedure: US OB transvaginal EXAMINATION: US OB transvaginal HISTORY: MISSED MENSES COMPARISON: No relevant comparison available. FINDINGS: GESTATIONAL SAC: Present and normal appearing. YOLK SAC: Present and normal appearing. POLE: Present and normal appearing. CARDIAC: Present. UTERUS: Normal size and appearance. OVARIES: Right: Normal. Left: Normal. CERVIX: 3.4 cm in length and closed. CUL-DE-SAC: Normal. OTHER: None. AGE BY LMP: 8 weeks 2 days TOMASZ BY LMP: 01/27/2024 AGE BY US CRL: 7 weeks 5 days TOMASZ BY US CRL: 01/31/2024 US/US OB transvaginal IMPRESSION: 1. Single live intrauterine . Electronically authenticated by: MATTHEW GROVE Date: 06/19/2023 15:39 Dictated By: Matthew Grove M.D. Signed By:06/19/23 1542 DD/ 1539 TD/TT: Toll Collector Supervisor: us Devan Tello DO [facility] Final Result documented in this encounter Visit Diagnoses Not on filedocumented in this encounter Care Teams Manager Planning Relationship Specialty [place] [address] [place] [address] [place] [address] PCP - General Family Medicine 06/19/23 Devan Tello DO [address] [place], [place] [address] [place] [address] PCP - [facility] 09/28/24 documented as of this encounter
--- OUTSIDE RECORDS SUMMARY | 2025-07-03 05:57 | XMS_ITS | Encounter Summary ---
Author Organization [facility] [facility] [employer] Address [facility] [id number] [address] [place] [address] Care Team Providers Care Power Line Lineman Name Role Phone Roberto Marie MD Primary Care Provider +1 [phone] Encounter Details Date Type Department Care Team (Late st Contact Info) Description 06/23/2023 Orders Only [facility] [address] [place] [address] External, Scanning Provider Social History [...] on file documented as of this encounter Visit Diagnoses Not on filedocumented in this encounter Additional Health Concerns Assessment Noted Time PHQ-9 Depression Total Score: 0 04/10/20 23 7:00 AM EDT documented as of this encounter Care Teams Power Line Lineman Relationship Specialty Start Date End Date Roberto Marie MD [address] Provider retired 12/27/24 [place] [address] PCP - General Family Medicine 02/01/18 documented as of this encounter
--- OUTSIDE RECORDS SUMMARY | 2025-07-03 05:57 | XMS_ITS | Encounter Summary ---
Author Organization [facility] Address [id number] [address] [place] [address] Care Team Providers Care Digital Media Manager Name Role Phone Roberto Marie MD Primary Care Provider +1 [phone] Encounter Details Date Type Department Care Team (Late st Contact Info) Description 12/10/2023 Orders Only [facility] [address] [place] [address] External, Scanning Provider Social History [...] US BIOPHYSICAL PROFILE FET WO NST Routine 12/10/2023 10:06 AM EDT documented in this encounter Results * Ultrasound biophysical profile without non-stress testing (12/10/2023 10:06 AM EDT) Anatomical Region Laterality Modality OB-UMBRELLA TIPPER Ultrasound us Scanning Provider External IMG US ORDERABLES Fin al Result documented in this encounter Visit Diagnoses Not on filedocumented in this encounter Additional Health Concerns Assessment Noted Time PHQ-9 Depression Total Score: 0 04/10/20 23 7:00 AM EDT documented as of this encounter Care Teams Digital Media Manager Relationship Specialty Start Date End Date Roberto Marie MD [address] Provider retired 12/27/24 [place] [address] PCP - General Family Medicine 02/01/18 documented as of this encounter
--- OUTSIDE RECORDS SUMMARY | 2025-07-03 05:57 | XMS_ITS | Encounter Summary ---
Author Organization [facility] Address [id number] [address] [place] [address] Care Team Providers Care Rn Enterostomal Name Role Phone Roberto Marie MD Primary Care Provider [phone] [phone] Encounter Details Date Type Department Care Team (Late st Contact Info) Description 09/18/2023 Orders Only [facility] [address] [place] [address] External, Scanning Provider Social History [...] Priority Date/Time Associated Diagnosis Comments US PREG GREATER THAN 14 WKS SNGL TRANSAB Routine 09/17/2023 documented in this encounter Results * Ultrasound greater than 14 weeks single transabdominal (09/17/2023) Anatomical Region Laterality Modality OB-ARTIFICIAL PEARL MAKER Ultrasound 09/17/2023 us Scanning Provider External IMG US ORDERABLES Fin al Result documented in this encounter Visit Diagnoses Not on filedocumented in this encounter Additional Health Concerns Assessment Noted Time PHQ-9 Depression Total Score: 0 04/10/20 23 7:00 AM EDT documented as of this encounter Care Teams Rn Enterostomal Relationship Specialty Start Date End Date Roberto Marie MD [address] Provider retired 12/27/24 [place] [address] PCP - General Family Medicine 02/01/18 documented as of this encounter
--- OUTSIDE RECORDS SUMMARY | 2025-07-03 05:57 | XMS_ITS | Encounter Summary ---
Author Organization [facility] Address [address] [facility] [place] [address] Care Team Providers Care Placing Judge Name Role Phone Adryan Moore MD Primary Care Provider + [phone] Devan Tello DO Unavailable Encounter Details Date Type Department Care Team (Late st Contact Info) Description 12/01/2023 Clinisync Result Encounter [facility] External Department Unsolicited Devan Tello, DO [address] [facility] [place] [place] [address] Social History Tobacco Use Types Packs/Day [...] AM EDT Routine [facility]OM[facility] Bk OBNABIL [address] [facility] [place] [address] Nichole Stallings, YURI [address] [facility] [place] [place] [address] 07/18/2025 9:00 AM EDT Routine [facility]OM[facility] Bk ABDIGYLiss [address] [facility] [id number] Devan Tello DO [address] [place], [place] [id number] 09/07/2025 9:00 AM EST Office Visit [facility]O [address] [facility] [place] [address] Devan Tello DO [address] [place], [place] [id number] documented as of this encounter Goals Goal Patient Goal Type Associated Problems Recent Progress Patient-Stated? Author Reminders Care Plan OB Reminders No Open Scheduling, Background documented as of this encounter Procedures Procedure Name Priority Date/Time Associated Diagnosis Comments US OB BPP W NON-STRESS 12/01/2023 3:47 PM EST documented in this encounter Results * US OB BPP W NON-STRESS (12/01/2023 3:47 PM EST) Anatomical Region Laterality Modality Other 12/01/2023 3:47 PM EST Narrative 12/01/2023 3:50 PM EST The [address] [address] Ultrasound Report Signed Patient: JUANPABLO REYNOSO MR#: [id number] : 2000 Acct:[id number] Age/Sex: 23 / F ADM Date: 12/01/23 Loc: [facility] 250-[address]: Devan Tello D.O. Ordering Physician: Devan Tello D.O. Date of Service: 12/01/23 Procedure(s): US OB BPP w non-stress Accession Number(s): [id number] cc: ADRYAN MOORE ; Devan Tello D.O. The [address] [address] Patient Name: JUANPABLO REYNOSO MRN: [id number] date: 2000 Sex: F Assigned Patient Location: [facility] Current Patient Location: [facility] Accession/Order Number: [id number] Exam Date: 12/01/2023 15:08 Report Date: 12/01/2023 15:47 At the request of: DEVAN TELLO Procedure: US OB BPP w non-stress EXAMINATION: US OB BPP w non-stress HISTORY: EXCESSIVE GROWTH O36.63X0 COMPARISON: No relevant comparison available. TECHNIQUE: Ultrasound biophysical profile was performed in the radiology department. non-reactive stress testing was performed by nursing staff in the birthing center. FINDINGS: BREATHING MOVEMENTS: 2.0 GROSS BODY MOVEMENTS: 2.0 TONE: 2.0 QUALITATIVE AMNIOTIC FLUID VOLUME: 2.0 PRESENTATION: CEPHALIC HEART RATE: 135.0 bpm H.B./min AMNIOTIC FLUID VOLUME: 18.2 cm cm GESTATIONAL AGE: 31 weeks 6 days CONCLUSION: Total biophysical profile score: 8.0 Electronically authenticated by: ADRYAN PRESCOTT Date: 12/01/2023 15:47 Dictated By: Adryan Prescott M.D. Signed By: 12/01/23 1550 DD/ 1547 TD/TT: Crusher Plant Operator: Procedure Note Radiology, Radiologist, - 12/01/2023 [place] [address] Ultrasound Report Signed Patient: TERE REYNOSO#: [id number] : 2000Acct:[id number] Age/Sex: 23 / FADM Date: 12/01/23 Loc: [facility] 250-[address]: Devan Tello D.O. Ordering Physician: Devan Tello D.O. Date of Service: 12/01/23 Procedure(s): US OB BPP w non-stress Accession Number(s): [id number] cc: ADRYAN MOORE ; Devan Tello D.O. The [place] [address] Patient Name: JUANPABLO REYNOSO MRN: [facility]:[id number] date: 2000 Sex: F Assigned Patient Location: [facility] Current Patient Location: [facility] Accession/Order Number: [id number] Exam Date: 12/01/2023 15:08 Report Date: 12/01/2023 15:47 At the request of: DEVAN TELLO Procedure: US OB BPP w non-stress EXAMINATION: US OB BPP w non-stress HISTORY: EXCESSIVE GROWTH O36.63X0 COMPARISON: No relevant comparison available. TECHNIQUE: Ultrasound biophysical profile was performed in the radiology department. non-reactive stress testing was performed by nursingstaff in the birthing center. FINDINGS: BREATHING MOVEMENTS: 2.0 GROSS BODY MOVEMENTS: 2.0 TONE: 2.0 QUALITATIVE AMNIOTIC FLUID VOLUME: 2.0 PRESENTATION: CEPHALIC HEART RATE: 135.0 bpm H.B./min AMNIOTIC FLUID VOLUME: 18.2 cm cm GESTATIONAL AGE: 31 weeks 6 days CONCLUSION: Total biophysical profile score: 8.0 Electronically authenticated by: ADRYAN PRESCOTT Date: 12/01/2023 15:47 Dictated By: Adryan Prescott M.D. Signed By:12/01/23 1550 DD/ 1547 TD/TT: Crusher Plant Operator: us Devan Tello DO [facility] Final Result documented in this encounter Visit Diagnoses Not on filedocumented in this encounter Additional Health Concerns Active Problems Noted Date Diagnosed Date OB Reminders 06/27/2023 documented as of this encounter Care Teams Placing Judge Relationship Specialty [place] [address] [place], [place] [address] [address] PCP - General Family Medicine 06/19/23 Devan Tello DO [address] [place] [address] [place] [address] PCP - [facility] 09/28/24 documented as of this encounter
--- OUTSIDE RECORDS SUMMARY | 2025-07-03 05:57 | XMS_ITS | Encounter Summary ---
Author Organization [employer] Address [id number] [address] [place] [address] Care Team Providers Care Entry Level Lab Technician Name Role Phone Roberto Marie MD Primary Care Provider [phone] Encounter Details Date Type Department Care Team (Late st Contact Info) Description 08/13/2022 Telephone [facility] [address] [place] [address] Zaynab Warren CMA Social History Tobacco Use Types Packs/Day Years [...] PHQ-2 Answer Date Recorded Total Score 0 08/12/2022 Childcare Answer Date Recorded Childcare Unknown 03/09/2019 Employment Answer Date Recorded Employment Unknown 03/09/2019 Purpose - Life Answer Date Recorded Purpose and direction in life Unknown Comments No Sex and Gender Information Value Date Recorded Sex Assigned at Not on file Legal Sex Female 11:58 AM EDT Gender Identity Not on file Sexual Orientation Not on file COVID-19 Exposure Response Date Recorded In the last month, have you been in contact with someone who was confirmed or suspected to have Coronavirus / COVID-19? No / Unsure 08/13/2022 5:13 PM EST documented as of this encounter Miscellaneous Notes * Telephone Encounter - Zaynab Warren CMA - 08/13/2022 2:33 PM EST Patient calls asking to speak with DTD. She states she feels worse than yesterday. She had difficulty sleeping, uncontrollable shaking all last night and when going from a sitting to standing position she became weak and lightheaded. Please call patient. * Telephone Encounter - Roberto Marie MD - 08/13/2022 2:33 PM EST Pt referred back to ER, pt almost faded documented in this encounter Plan of Treatment Not on file documented as of this encounter Visit Diagnoses Not on filedocumented in this encounter Additional Health Concerns Assessment Noted Time PHQ-9 Depression Total Score: 0 08/12/20 22 7:00 AM EST documented as of this encounter Care Teams Entry Level Lab Technician Relationship Specialty Start Date End Date Roberto Marie MD [address]. Provider retired 12/27/24 [place] [address] PCP - General Family Medicine 02/01/18 documented as of this encounter
--- OUTSIDE RECORDS SUMMARY | 2025-07-03 05:57 | XMS_ITS | Encounter Summary ---
Author Organization [facility] Address [address] [facility] [place] [address] Care Team Providers Care Certified Public Accountant Name Role Phone Adryan Moore MD Primary Care Provider + [phone] Devan Tello DO Unavailable Encounter Details Date Type Department Care Team (Late st Contact Info) Description 01/13/2024 Clinisync Result Encounter [facility] External Department Unsolicited Devan Tello, DO [address] [facility] [place] [address] Social History Tobacco Use Types Packs/Day [...] AM EDT Routine [facility]OM[facility] Bk OBNABIL [address] [place] [address] Nichole Stallings, YURI [address] [facility] [place] [address] 07/18/2025 9:00 AM EDT Routine [facility]OM[facility] Bk OBGYN [address] [facility] [place] [address] Devan Tello DO [address] [place] [address] 09/07/2025 9:00 AM EST Office Visit [facility] [place] [facility] [address] [place] [address] Devan Tello DO [address] [place] [address] documented as of this encounter Goals Goal Patient Goal Type Associated Problems Recent Progress Patient-Stated? Author Reminders Care Plan OB Reminders No Open Scheduling, Background documented as of this encounter Procedures Procedure Name Priority Date/Time Associated Diagnosis Comments US OB GROWTH 01/13/2024 11:40 AM EDT documented in this encounter Results * US OB GROWTH (01/13/2024 11:40 AM EDT) Anatomical Region Laterality Modality Other 01/13/2024 11:4 0 AM EDT Narrative 01/13/2024 11:43 AM EDT The [address] [address] Ultrasound Report Signed Patient: JUANPABLO REYNOSO MR#: [id number] : 2000 Acct:[id number] Age/Sex: 23 / F ADM Date: 01/13/24 Loc: US Attending Dr: Devan Tello D.O. Ordering Physician: Devan Tello D.O. Date of Service: 01/13/24 Procedure(s): US OB growth Accession Number(s): [id number] cc: ADRYAN MOORE ; Devan Tello D.O. The [address] [address] Patient Name: JUANPABLO REYNOSO MRN: [facility]:[id number] date: 2000 Sex: F Assigned Patient Location: [facility] Current Patient Location: Accession/Order Number: [id number] Exam Date: 01/13/2024 10:00 Report Date: 01/13/2024 11:40 At the request of: EDVAN TELLO Procedure: US OB growth EXAMINATION: US OB growth HISTORY: EXCESSIVE GROWTH O36.63X0 COMPARISON: No relevant comparison available. FINDINGS: Heart Rate: 150.0 bpm Amniotic Fluid Volume: 13.6 cm Number: 1.0 Position: Cephalic presentation, longitudinal lie Maximum Vertical Pocket: 4.1 cm cm 2.8 cm cm 1.8 cm cm 5.0 cm cm BIOMETRY: BPD: 9.2 cm cm; 37 weeks 3 days; 57% HC: 34.0 cmcm; 39 weeks 1 days , 57% AC: 35.3 cm cm; 39 weeks 1 days, 91% FL: 7.1 cm cm; 36 weeks 1 days; 12.2 % % EFW: 3454.8 grams, 7 lbs. 10 oz., 70% FL/AC: 20.0 FL/BPD: 76.7 HC/AC: 1.0 GESTATIONAL AGE: Age by EDC: 38 weeks 0 days TOMASZ by EDC: 01/27/2024 Age by US: 38 weeks 0 days TOMASZ by US: 01/27/2024 US/US OB growth IMPRESSION: Normal interval growth Electronically authenticated by: ADRYAN PRESCOTT Date: 01/13/2024 11:40 Dictated By: Adryan Prescott M.D. Signed By: 01/13/24 1143 DD/ 1140 TD/TT: Cable Television Installer: Procedure Note Radiology, Radiologist, MD - 01/13/2024 [place] [address] Ultrasound Report Signed Patient: TERE REYNOSO#: [id number] : 2000Acct:[id number] Age/Sex: 23 / FADM Date: 01/13/24 Loc: US Attending Dr: Devan Tello D.O. Ordering Physician: Devan Tello D.O. Date of Service: 01/13/24 Procedure(s): US OB growth Accession Number(s): [id number] cc: ADRYAN MOORE ; Devan Tello D.O. The [place] [id number] Patient Name: JUANPABLO REYNOSO MRN: [id number] date: 2000 Sex: F Assigned Patient Location: [facility] Current Patient Location: Accession/Order Number: [id number] Exam Date: 01/13/2024 10:00 Report Date: 01/13/2024 11:40 At the request of: DEVAN TELLO Procedure: US OB growth EXAMINATION: US OB growth HISTORY: EXCESSIVE GROWTH O36.63X0 COMPARISON: No relevant comparison available. FINDINGS: Heart Rate: 150.0 bpm Amniotic Fluid Volume: 13.6 cm Number: 1.0 Position: Cephalic presentation, longitudinal lie Maximum Vertical Pocket: 4.1 cm cm 2.8 cm cm 1.8 cm cm 5.0 cm cm BIOMETRY: BPD: 9.2 cm cm; 37 weeks 3 days; 57% HC: 34.0 cmcm; 39 weeks 1 days , 57% AC: 35.3 cm cm; 39 weeks 1 days, 91% FL: 7.1 cm cm; 36 weeks 1 days; 12.2 % % EFW: 3454.8 grams, 7 lbs. 10 oz., 70% FL/AC: 20.0 FL/BPD: 76.7 HC/AC: 1.0 GESTATIONAL AGE: Age by EDC: 38 weeks 0 days TOMASZ by EDC: 01/27/2024 Age by US: 38 weeks 0 days TOMASZ by US: 01/27/2024 US/US OB growth IMPRESSION: Normal interval growth Electronically authenticated by: ADRYAN PRESCOTT Date: 01/13/2024 11:40 Dictated By: Adryan Prescott M.D. Signed By:01/13/24 1143 DD/ 1140 TD/TT: Cable Television Installer: Devan Tello DO [facility] Final Result documented in this encounter Visit Diagnoses Not on filedocumented in this encounter Additional Health Concerns Active Problems Noted Date Diagnosed Date OB Reminders 06/27/2023 documented as of this encounter Care Teams Certified Public Accountant Relationship Specialty Start Date End Date Adryan Moore MD [address] [address] PCP - General Family Medicine 06/19/23 Devan Tello DO [address] [facility] [place] [address] PCP - [facility] 09/28/24 documented as of this encounter
--- OUTSIDE RECORDS SUMMARY | 2025-07-03 05:57 | XMS_ITS | Encounter Summary ---
Author Organization [facility] Address [address] [facility] [place] [address] Care Team Providers Care Director Of Business Systems Name Role Phone Roberto Marie MD Primary Care Provider + [phone] OmerMernay DO Unavailable Encounter Details Date Type Department Care Team (Latest Contact Info) Description 06/28/2025 Travel Social History Tobacco Use Types Packs/Day Years [...] Description 07/05/2025 9:20 AM EDT Routine [facility] [place] [facility] [address] [facility] [place] [address] Nichole Stallings, YURI [address] [facility] [place] [address] 07/18/2025 9:00 AM EDT Routine [facility]S Joanna OBGYN [address] [facility] [place] [address] Devyn Tello, DO [address] [place] [address] 09/07/2025 9:00 AM EST Office Visit [facility] [place] [facility] [address] [facility] [place] [address] Devyn Tello, DO [address] [facility] [place] [address] documented as of this encounter Goals Goal Patient Goal Type Associated Problems Recent Progress Patient-Stated? Author Reminders Care Plan OB Reminders No Open Scheduling, Background documented as of this encounter Visit Diagnoses Not on filedocumented in this encounter Additional Health Concerns Active Problems Noted Date Diagnosed Date OB Reminders 06/27/2023 documented as of this encounter Care Teams Director Of Business Systems Relationship Specialty Start Date End Date Roberto Marie MD [address] [place] [address] PCP - General Family Medicine 06/19/23 Devyn Tello DO [address] [place] [address] PCP - [facility] 09/28/24 documented as of this encounter
--- OUTSIDE RECORDS SUMMARY | 2025-07-03 05:57 | XMS_ITS | Encounter Summary ---
Author Organization [facility] Address [address] [facility] [place] [address] Care Team Providers Care Burr Filer Name Role Phone Adryan Moore MD Primary Care Provider + [phone] Devan Tello DO Unavailable Encounter Details Date Type Department Care Team (Late st Contact Info) Description 01/06/2024 Clinisync Result Encounter NOMS External Department Unsolicited Devan Tello, DO [address] [facility] [place] [address] Social History Tobacco Use Types Packs/Day [...] AM EDT Routine NOMS Bk OBNABIL [address] [place] [address] Nichole Stallings, YURI [address] [facility] [place] [address] 07/18/2025 9:00 AM EDT Routine NOMS Bk OBGYN [address] [facility] [place] [address] Devan Tello, [address] [place] [address] 09/07/2025 9:00 AM EST Office Visit NOMS Bk ABDIGYLiss [address] [place] [address] Devan Tello, [address] [place], [place] [address] documented as of this encounter Goals Goal Patient Goal Type Associated Problems Recent Progress Patient-Stated? Author Reminders Care Plan OB Reminders No Open Scheduling, Background documented as of this encounter Procedures Procedure Name Priority Date/Time Associated Diagnosis Comments US OB BPP W NON-STRESS 01/06/2024 10:39 AM EDT documented in this encounter Results * US OB BPP W NON-STRESS (01/06/2024 10:39 AM EDT) Anatomical Region Laterality Modality Other 01/06/2024 10:3 9 AM EDT Narrative 01/06/2024 10:44 [place] [address] Ultrasound Report Signed Patient: JUANPABLO REYNOSO MR#: [id number] : 2000 Acct:[id number] Age/Sex: 23 / F ADM Date: 01/06/24 Loc: [facility] 254-[address]: Devan Tello D.O. Ordering Physician: Devan Tello D.O. Date of Service: 01/06/24 Procedure(s): US OB BPP w non-stress Accession Number(s): [id number] cc: ADRYAN MOORE ; Devan Tello D.O. The [address] [address] Patient Name: JUANPABLO REYNOSO MRN: [id number] date: 2000 Sex: F Assigned Patient Location: [facility] Current Patient Location: [facility] Accession/Order Number: [id number] Exam Date: 01/06/2024 09:58 Report Date: 01/06/2024 10:39 At the request of: DEVAN TELLO Procedure: US OB BPP w non-stress EXAMINATION: US OB BPP w non-stress HISTORY: Excessive growth COMPARISON: No relevant comparison available. TECHNIQUE: Ultrasound biophysical profile was performed in the radiology department. FINDINGS: BREATHING MOVEMENTS: 2.0 GROSS BODY MOVEMENTS: 2.0 TONE: 2.0 QUALITATIVE AMNIOTIC FLUID VOLUME: 2.0 PRESENTATION: CEPHALIC HEART RATE: 131.1 bpm H.B./min AMNIOTIC FLUID VOLUME: 11.6 cm cm GESTATIONAL AGE: 37 weeks 0 days CONCLUSION: Total biophysical profile score: 8.0 Electronically authenticated by: ADRYAN PRESCOTT Date: 01/06/2024 10:39 Dictated By: Adryan Prescott M.D. Signed By: 01/06/24 1044 DD/ 1039 TD/TT: Human Geography Instructor: Procedure Note Radiology, Radiologist, MD - 01/06/2024 [place] [address] Ultrasound Report Signed Patient: TERE REYNOSO#: [id number] : 2000Acct:[id number] Age/Sex: 23 / FADM Date: 01/06/24 Loc: [facility] 254-[address]: Devan Tello D.O. Ordering Physician: Devan Tello D.O. Date of Service: 01/06/24 Procedure(s): US OB BPP w non-stress Accession Number(s): [id number] cc: ADRYAN MOORE ; Devan Tello D.O. The [place] [address] Patient Name: JUANPABLO REYNOSO MRN: [id number] date: 2000 Sex: F Assigned Patient Location: [facility] Current Patient Location: [facility] Accession/Order Number: [id number] Exam Date: 01/06/2024 09:58 Report Date: 01/06/2024 10:39 At the request of: DEVAN TELLO Procedure: US OB BPP w non-stress EXAMINATION: US OB BPP w non-stress HISTORY: Excessive growth COMPARISON: No relevant comparison available. TECHNIQUE: Ultrasound biophysical profile was performed in the radiology department. FINDINGS: BREATHING MOVEMENTS: 2.0 GROSS BODY MOVEMENTS: 2.0 TONE: 2.0 QUALITATIVE AMNIOTIC FLUID VOLUME: 2.0 PRESENTATION: CEPHALIC HEART RATE: 131.1 bpm H.B./min AMNIOTIC FLUID VOLUME: 11.6 cm cm GESTATIONAL AGE: 37 weeks 0 days CONCLUSION: Total biophysical profile score: 8.0 Electronically authenticated by: ADRYAN PRESCOTT Date: 01/06/2024 10:39 Dictated By: Adryan Prescott M.D. Signed By:01/06/24 1044 DD/ 1039 TD/TT: Human Geography Instructor: us Devan Tello DO [facility] Final Result documented in this encounter Visit Diagnoses Not on filedocumented in this encounter Additional Health Concerns Active Problems Noted Date Diagnosed Date OB Reminders 06/27/2023 documented as of this encounter Care Teams Burr Filer Relationship Specialty Start Date End Date Adryan Moore MD [address] [facility] [place] [address] PCP - General Family Medicine 06/19/23 Devan Tello DO [address] [place] [address] [place] [address] PCP - [facility] 09/28/24 documented as of this encounter
--- OUTSIDE RECORDS SUMMARY | 2025-07-03 05:57 | XMS_ITS | CCD ---
Author Organization [facility] Care Team Providers Care Medical And Scientific Illustrator Name Role Phone Deonna Back Unavailable ADRYAN MARIE Primary Care Physician [phone] LESLEY, DR LUIS ANTONIO Jorge Consulting Unavailable [...] Unavailable DEFRANCE, DR CORNELIUS Consulting Unavailable CHIKA LOES Attending Unavailable CHIKA LEOS Admitting Unavailable LESLEY, DR LUIS ANTONIO Jorge Attending Unavailable CHIKA BHAKTA Consulting Unavailable DEFRANCE, DR CORNELIUS Primary Care Unavailable LESLEY, DR LUIS ANTONIO Jorge Admitting Unavailable DEFRANCE, DR CORNELIUS Primary Care Unavailable DIETER GONZALEZ Consulting Unavailable DIETER GONZALEZ Attending Unavailable DIETER GONZALEZ Admitting Unavailable Defrance Adryan OBRIEN Primary Care Provider Omer DO, Devyn Unavailable Adryan Marie MD Primary Care Provider [phone] OMER, DEVYN Attending Unavailable CYDNEY LEOS Attending Unavailable OMER, DEVYN Attending Unavailable OMER, DEVYN Referring Unavailable OMER, DEVYN Attending Unavailable OMER, DEVYN Referring Unavailable OMER, DEVYN Attending Unavailable CYDNEY LEOS Attending Unavailable OMER, DEVYN Attending Unavailable OMER, DEVYN Referring Unavailable OMER, DEVYN Attending Unavailable OMER, DEVYN Attending Unavailable Allergies Allergy Classification Reported Allergen(s) Allergy Type Date of Onset Reaction(s) Facility (3 sources) Sulfacetamide Drug Allergy rash Cswitch Other (1 source) Sulfonamides (Antibiotic); Translations: [sulfa drugs] Drug allergy Hyperpyrexia (finding) [facility] (1 source) Sulfonamides (Antibiotic) Drug allergy (disorder) 07-26-20 14 [facility] (20 sources) Sulfonamides (Antibiotic) Drug Intolerance 06-17-20 [...] BY MOUTH EVERY MORNING 0 10/06/2023 Active JX-Grj-YK-Ozone-3 ( GUMMIES/DHA & FA PO) (13 sources) FX-Ozn-MN-Ozone-3 ( GUMMIES/DHA & FA PO) Take 1 each by mouth Daily Active DZ-Qwx-WK-Ozone-3 ( Gummies/DHA & FA) 0.4-32.5 MG chewable tablet (3 sources) Start: 06-19-2023 End: 06-18-2024 SJ-Aqe-FG-Ozone-3 ( Gummies/DHA & FA) 0.4-32.5 MG chewable tablet Indications: Missed menses Chew 32.5 mg in the morning. 30 tablet 11 06/19/2023 06/18/2024 Active Completed/Discontinued Medications Medication Drug Class(es) Dates Sig (Normalized) Sig (Original) [id number] 200 actuat albuterol 0.09 mg/actuat metered dose [...] Antimicrobial Start: 03-08-2024 End: 08-29-2024 azithromycin (Zithromax Z-Darrne) 250 MG tablet Indications: Upper respiratory tract [...] / neomycin 3.5 mg/ml / polymyxin b [id number] unt/ml otic suspension (3 sources) Aminoglycoside Antibacterial, Polymyxin-class Antibacterial, Corticosteroid Start: 04-02-2022 Neomycin-Polymyxin- HC 3.5-30149-9 3 drops left ear Three times a [...] not applicable or unspecified] 11-12-2023 Episodic Other complications of (2 sources) size does not accord with dates; Translations: [Uterine size-date discrepancy, unspecified trimester] 06-06-2025 Episodic Other female genital disorders (1 source) Unspecified dyspareunia; Translations: [UNSPECIFIED DYSPAREUNIA] Onset: 10-30-2021 Chronic Other female genital disorders (2 sources) Vaginal discharge; Translations: [Other specified noninflammatory disorders of vagina] 03-20-2025 Episodic Other gastrointestinal disorders (5 sources) Diarrhea, unspecified; Translations: [DIARRHEA UNSPECIFIED] Onset: 04-16-2022 Episodic Other and delivery including normal (16 sources) Third trimester ; Translations: [Encounter for supervision of normal , unspecified, third trimester] Onset: 06-20-2025 11-10-2023 Episodic Other screening for suspected conditions [...] [24 weeks gestation of ] 05-16-2025 Episodic Residual codes; unclassified (2 sources) Gestation period, 28 weeks; Translations: [28 weeks gestation of ] 06-06-2025 Episodic Residual codes; unclassified (4 sources) Gestation period, 30 weeks; Translations: [30 weeks gestation of ] Onset: 06-20-2025 06-20-2025 Episodic Substance-related disorders (2 sources) Nicotine dependence, [...] Test Name Value Interpretation Reference Range Facility OB FOLLOW UP TRANSABDOMIN AL APPROACHon 06-20-2025 OB FOLLOW UP TRANSABDOMINAL APPROACH FINDINGS: Comparison made with prior exam April [...] is 1784 grams (3 pounds, 15 ounces). IMPRESSION: Single, live intrauterine , current sonographic age of 31 weeks and 1 day, with an estimated date of delivery of August 21, 2025 (prior TOMASZ August 29, 2025). * Estimated Weight (g) by Percentile is based upon an accurate estimated age based on last menstrual period. TRANSCRIBED BY: ELECTRONICALLY SIGNED BY: Addi Cain MD Normal Not Available Comment on above: Order Comment: US OB SCAN FOR GROWTH Estimated Date of Delivery: 08/25/25 Gestational Age as of 06/06/2025: 28w4d Urinalysis macro (dipstick) panel (U)Ordered By: Belen Vera on 06-20-2025 Bilirubin, UA Negative Negative - 4(70) +++ mg/dL [facility] Blood, UA Negative Negative - 50 Cedric/mcL [facility] Clarity, UA Clear [facility] re Color, UA Yellow [facility] Glucose, UA Negative Negative - 1999(110) ++++ mg/dL [facility] Interpretation and review of laboratory results Normal [facility] re Ketones, UA Negative Negative - 160(16) ++++ mg/dL [facility] Leukocytes, UA Negative Negative - 500+++ Alessandro/mcL [facility] Nitrite, UA Negative Negative - Positive [facility] pH, UA 7 5 - 9 [facility] Protein, UA Negative Negative - 1999(20) ++++ mg/dL [facility] Spec Grav, UA 1.01 1 - 1.03 [facility] care Urobilinogen, UA 0.2 0.2 - 12 mg/dL [facility] Urinalysis macro (dipstick) panel (U)on 06-06-2025 Bilirubin, UA Negative Negative - 4(70) +++ mg/dL [facility] Blood, UA Negative Negative - 50 Cedric/mcL [facility] Clarity, UA Clear [facility] Color, UA Yellow [facility] Glucose, UA Negative Negative - 1999(110) ++++ mg/dL [facility] Interpretation and review of laboratory results Normal [facility] re Ketones, UA Negative Negative - 160(16) ++++ mg/dL [facility] Leukocytes, UA Negative Negative - 500+++ Alessandro/mcL [facility] Nitrite, UA Negative Negative - Positive [facility] pH, UA 7 5 - 9 [facility] Protein, UA Negative Negative - 1999(20) ++++ mg/dL [facility] Spec Grav, UA 1.01 1 - 1.03 [facility] Urobilinogen, UA 0.2 0.2 - 12 mg/dL [facility] GLUCOSE 1 HOURon 05-26-2025 Glucose [Mass/Vol] 101 mg/dL NINF - 13 0 mg/dL [facility] Urinalysis macro (dipstick) panel (U)on 05-16-2025 Bilirubin, UA Negative Negative - 4(70) +++ mg/dL [facility] Blood, UA Negative Negative - 50 Cedric/mcL [facility] Clarity, UA Clear [facility] Color, UA Yellow [facility] Glucose, UA Negative Negative - 1999(110) ++++ mg/dL [facility] Interpretation and review of laboratory results Normal [facility] re Ketones, UA Negative Negative - 160(16) ++++ mg/dL [facility] Leukocytes, UA Negative Negative - 500+++ Alessandro/mcL [facility] Nitrite, UA Negative Negative - Positive [facility] pH, UA 6 5 - 9 [facility] Protein, UA Negative Negative - 1999(20) ++++ mg/dL [facility] Spec Grav, UA 1.02 1 - 1.03 [facility] Urobilinogen, UA 1.0 0.2 - 12 mg/dL [facility] Urinalysis macro (dipstick) panel (U)Ordered By: Jasmin Nogueira on 04-18-2025 Bilirubin, UA Negative Negative - 4(70) +++ mg/dL [facility] Work Phone: Blood, UA Negative Negative - 50 Cedric/mcL [facility] Healthcare Work Phone: Clarity, UA Clear [facility] re Work Phone: Color, UA Yellow [facility] Work Phone: Glucose, UA Negative Negative - 1999(110) ++++ mg/dL [facility] [employer] Work Phone: Interpretation and review of laboratory results Abnormal [facility] [employer] [facility] Work Phone: Ketones, UA Negative Negative - 160(16) ++++ mg/dL [facility] [employer] Work Phone: Leukocytes, UA Negative Negative - 500+++ Alessandro/mcL [employer] Work Phone: Nitrite, UA Negative Negative - Positive [facility] [employer] Work Phone: pH, UA 6 5 - 9 [facility] [employer] Work Phone: Protein, UA Trace Negative - 1999(20) ++++ mg/dL [facility] [employer] Work Phone: Spec Grav, UA 1.01 1 - 1.03 [facility] [email or web address] Work Phone: Urobilinogen, UA 1.0 0.2 - 12 mg/dL [facility] [employer] Work Phone: [facility] [employer] Work Phone: US OB 14+ WEEKS ANATOMY [...] II, MD, PHD at 19-Apr-2025 10:16:24 AM [facility] Normal Not Available Comment on above: Order Comment: US OB ANATOMY SINGLE W US OB CERVICAL LENGTH Estimated Date of Delivery: 08/25/25 Gestational Age as of 03/20/2025: 17w3d Urinalysis macro (dipstick) panel (U)on 03-20-2025 Bilirubin, UA Negative Negative - 4(70) +++ mg/dL [facility] Blood, UA Negative Negative - 50 Cedric/mcL [facility] Clarity, UA Clear [facility] re Color, UA Yellow [facility] Glucose, UA Negative Negative - 1999(110) ++++ mg/dL [facility] Interpretation and review of laboratory results Normal [facility] re Ketones, UA Negative Negative - 160(16) ++++ mg/dL [facility] Leukocytes, UA Negative Negative - 500+++ Alessandro/mcL [facility] Nitrite, UA Negative Negative - Positive [facility] pH, UA 6.5 5 - 9 [facility] Protein, UA Negative Negative - 1999(20) ++++ mg/dL [facility] Spec Grav, UA 1.01 1 - 1.03 [facility] care Urobilinogen, UA 0.2 0.2 - 12 mg/dL [facility] US OB LIMITED 1+ FETUSESon 0 6-02-2025 US OB LIMITED 1+ FETUSES EXAM: US [...] bleed. Interpreted by: Electronically signed by SAMARA ESRNA II, MD, PHD at 28-Feb-2025 11:32:13 PM [facility] Normal Not Available Comment on above: Order Comment: US OB VIABILITY PLEASE PERFORM TRANSVAGINAL ULTRASOUND IF INDICATED Patient's last menstrual period was 11/18/2024 (approximate). BOX TESTon 01-30-2025 BOX TEST SENT OUT [facility] [address] [facility] BOX2 01/30/25 [facility] HCG ( test) Ql (U)o n 01-20-2025 Interpretation and review of laboratory results Abnormal [facility] [employer] re Preg Test, Ur Positive Negative [facility] US OB TRANSVAGINALon 2 025 US OB TRANSVAGINAL EXAM: US OB [...] bilateral ovaries. Interpreted by: Electronically signed by SAMAAR SERNA II, MD, PHD at 20-Jan-2025 09:44:55 AM [facility] [employer] Normal Not Available Comment on above: Order Comment: US OB TRANSVAGINAL No LMP recorded. Urinalysis macro (dipstick) panel (U)on 01-20-2025 Bilirubin, UA Negative Negative - 4(70) +++ mg/dL [facility] Blood, UA Negative Negative - 50 Cedric/mcL [facility] Clarity, UA Clear [facility] [employer] re Color, UA Yellow [facility] [employer] Glucose, UA Negative Negative - 1999(110) ++++ mg/dL [facility] Interpretation and review of laboratory results Normal [facility] re Ketones, UA Negative Negative - 160(16) ++++ mg/dL [facility] Leukocytes, UA Negative Negative - 500+++ Alessandro/mcL [facility] Nitrite, UA Negative Negative - Positive [facility] pH, UA 7.5 5 - 9 [facility] [employer] Protein, UA Trace Negative - 1999(20) ++++ mg/dL [facility] Spec Grav, UA 1.02 1 - 1.03 [facility] Urobilinogen, UA 0.2 0.2 - 12 mg/dL [facility] HCG ( test) Ql (U)o n 12-06-2024 Interpretation and review of laboratory results Normal [facility] re Preg Test, Ur Negative Negative [facility] IGP,APTIMA HPV,AGE GDLNon 12 -08-2024 AGE GDLN ACOG TESTING Note . [facility] Comment on above: TESTS RESULT FLAG UN ITS REF RANGE LAB Clinician Provided Cytology Information Source.............Cervix;Endocervix No. of containers..01 ThinPrep Vial Age Algo ACOG Zari... FLAG LEGEND: L-Low Normal,H-High Normal,LL-Alert Low,HH-Alert High <-Panic Low,>-Panic High,A-Abnormal,AA-Critical Abnormal Performed at: 01 =G [address] [id number] Dian Gauthier MD, IGP, RFX APTIMA HPV ASCU Note . [facility] Comment on above: TESTS RESULT FLAG UN ITS REF RANGE LAB DIAGNOSIS: 02 NEGATIVE FOR INTRAEPITHELIAL LESION OR MALIGNANCY. Specimen adequacy: 02 Satisfactory for evaluation. Endocervical and/or squamous metaplastic cells (endocervical component) are present. Performed by: 02 Nohelia Deleon, Feed Crusher ([facility]) . 02 Note: Note 02 The Pap [...] <-Panic Low,>-Panic High,A-Abnormal,AA-Critical Abnormal Performed at: [address] [id number] Dian Gauthier MD, Performed at: = - [facility] [address] [id number] Senior Unix Administrator: Dian Gauthier MD, Phone: [phone] Performed at: [facility] [address] [id number] Senior Unix Administrator: Dian Gauthier MD, Phone: [phone] BRUSH-SPATULA CERVIX ENDOCERVIX [facility] [employer] HCG ( test) Ql (U)o n 08-29-2024 Interpretation and review of laboratory results Normal [facility] [place] re Preg Test, Ur Negative Negative [facility] [employer] ID e Urinalysis macro (dipstick) panel (U)on 08-29-2024 Bilirubin, UA Negative Negative - 4(70) +++ mg/dL [facility] [employer] Blood, UA Negative Negative - 50 Cedric/mcL [facility] Clarity, UA Clear [facility] [place] re Color, UA Colorless [facility] Glucose, UA Negative Negative - 1999(110) ++++ mg/dL [facility] Interpretation and review of laboratory results [facility] Ketones, UA Negative Negative - 160(16) ++++ mg/dL [facility] Leukocytes, UA Negative Negative - 500+++ Alessandro/mcL [facility] Nitrite, UA Negative Negative - Positive [facility] pH, UA 6.5 5 - 9 [facility] Protein, UA Negative Negative - 1999(20) ++++ mg/dL [facility] Spec Grav, UA 1.01 1 - 1.03 [facility] Urobilinogen, UA 0.2 0.2 - 12 mg/dL [facility] Urinalysis macro (dipstick) panel (U)on 11-12-2023 Bilirubin, UA Negative Negative - 4(70) +++ mg/dL [facility] Blood, UA Negative Negative - 50 Cedric/mcL [facility] Clarity, UA Clear [facility] re Color, UA Yellow [facility] e Glucose, UA Negative Negative - 1999(110) ++++ mg/dL [facility] Interpretation and review of laboratory results Normal [facility] re Ketones, UA Negative Negative - 160(16) ++++ mg/dL [facility] Leukocytes, UA Negative Negative - 500+++ Alessandro/mcL [facility] Nitrite, UA Negative Negative - Positive [facility] pH, UA 6.0 5 - 9 [facility] Protein, UA Negative Negative - 1999(20) ++++ mg/dL [facility] Spec Grav, UA 1.020 1 - 1.03 [facility] Urobilinogen, UA 0.2 0.2 - 12 mg/dL [facility] ALL CBC WITH AUTO DIFFon BASOPHILS ABSOLUTE AUTO 0.0 [facility] Basophils/100 WBC (Bld) 0.3 % 0.2 - 2.0 % [facility] Eosinophils/100 WBC (Bld) 1.0 % 0.9 - 7.0 % [facility] Erythrocyte distribution width (RBC) [Ratio] 12.5 % 11.0 - 15.0 % [facility] Hematocrit (Bld) [Volume fraction] 35.1 % Low 36.0 - 48.0 % [facility] Hemoglobin (Bld) [Mass/Vol] 11.7 g/dL Low 12.0 - 16.0 g/dL [facility] IMMATURE GRANULOCYTES ABS AUTO 0.08 High [facility] Immature granulocytes/100 WBC (Bld) 0.6 % High 0.0 - 0.5 % [facility] Interpretation and review of laboratory results Abnormal [facility] LYMPHOCYTES ABSOLUTE AUTO 1.6 [facility] Lymphocytes/100 WBC (Bld) 11.9 % Low 20.5 - 60.0 % [facility] MCH (RBC) [Entitic mass] 30.7 pg 26.7 - 34.0 pg [facility] MCHC (RBC) [Mass/Vol] 33.3 g/dL 29.9 - 35.2 g/dL [facility] MCV (RBC) [Entitic vol] 92.1 fL 81.0 - 99.0 fL [facility] MONOCYTES ABSOLUTE AUTO 0.8 [facility] Monocytes/100 WBC (Bld) 5.5 % 1.7 - 12.0 % [facility] NEUTROPHILS ABSOLUTE AUTO 11.1 High [facility] Neutrophils/100 WBC (Bld) 80.7 % High 43.0 - 75.0 % [facility] Platelet mean volume (Bld) [Entitic vol] 10.6 fL 9.5 - 13.5 fL [facility] TBH EO # 0.1 [facility] TBH PLT 292 [facility] TBH RBC 3.81 Low [facility] TBH WBC 13.8 High [facility] CBC AUTO DIFFon 09-14-2022 BASO # 0.0 103/ul Normal 0.0-0.1 [facility] Comment on above: Performed By: #### B GURPREET, TSH #### [facility] [address] [address] [address] Reema Mireles Basophils/100 WBC (Bld) 0.6 % Normal 0.2-2.0 [facility] Comment on above: Performed By: #### B GURPREET, TSH #### [facility] [address] [address] [address] Reema Mireles EO # 0.0 103/ul Normal 0.0-0.7 [facility] Comment on above: Performed By: #### B GURPREET, TSH #### [facility] [address] [place] [address] Dr. Reema Mireles Eosinophils/100 WBC (Bld) 0.6 % Critically low 0.9-7.0 [facility] Comment on above: Performed By: #### B MP, TSH #### [facility] [address] [place] [address] Dr. Reema Mireles Erythrocyte distribution width (RBC) [Ratio] 11.9 % Normal 11.0-15.0 [facility] Comment on above: Performed By: #### B MP, TSH #### [facility] [address] [place] [address] Dr. Reema Mireles Hematocrit (Bld) [Volume fraction] 37.8 % Normal 36.0-48.0 [facility] Comment on above: Performed By: #### B MP, TSH #### [facility] [address] [place] [address] Dr. Reema Mireles Hemoglobin (Bld) [Mass/Vol] 13.5 g/dL Normal 12.0-16.0 [facility] Comment on above: Performed By: #### B MP, TSH #### [facility] [address] [place] [address] Dr. Reema Mireles IG # 0.01 10e3/ul Normal 0.00-0.03 [facility] Comment on above: Performed By: #### B MP, TSH #### [facility] [address] [place] [address] Dr. Reema Mireles IG % 0.2 % Normal 0.0-0.5 [facility] Comment on above: Performed By: #### B MP, TSH #### [facility] [address] [place] [address] Dr. Reema Mireles LYMPH # 1.6 103/ul Normal 1.2-3.8 [facility] Comment on above: Performed By: #### B MP, TSH #### [facility] [address] [place] [address] Dr. Reema Mireles Lymphocytes/100 WBC (Bld) 25.5 % Normal 20.5-60.0 [facility] Comment on above: Performed By: #### B MP, TSH #### [facility] [address] [address] [address] Reema Mireles MANUAL DIFF REQ NO Normal [facility] Comment on above: Performed By: #### B MP, TSH #### [facility] [address] [place] [address] Dr. Reema Mireles MCH (RBC) [Entitic mass] 30.9 pg Normal 26.7-34.0 [facility] Comment on above: Performed By: #### B MP, TSH #### [facility] [address] [place] [address] Dr. Reema Mireles MCHC (RBC) [Mass/Vol] 35.7 g/dL Critically high 29.9-35.2 [facility] Comment on above: Performed By: #### B MP, TSH #### [facility] [address] [place] [address] Dr. Reema Mireles MCV (RBC) [Entitic vol] 86.5 fL Normal 81.0-99.0 [facility] Comment on above: Performed By: #### B MP, TSH #### [facility] [address] [place] [address] Dr. Reema Mireles MONO # 0.5 103/ul Normal 0.3-0.8 [facility] Comment on above: Performed By: #### B MP, TSH #### [facility] [address] [place] [address] Dr. Reema Mireles Monocytes/100 WBC (Bld) 8.5 % Normal 1.7-12.0 [facility] Comment on above: Performed By: #### B MP, TSH #### [facility] [address] [place] [address] Dr. Reema Mireles NEUT # 4.1 103/ul Normal 1.4-6.5 [facility] Comment on above: Performed By: #### B MP, TSH #### [facility] [address] [place] [address] Dr. Reema Mireles Neutrophils/100 WBC (Bld) 64.6 % Normal 43.0-75.0 [facility] Comment on above: Performed By: #### B MP, TSH #### [facility] [address] [place] [address] Dr. Reema Mireles Platelet mean volume (Bld) [Entitic vol] 9.9 fL Normal 9.5-13.5 [facility] Comment on above: Performed By: #### B MP, TSH #### [facility] [address] [place] [address] Dr. Reema Mireles PLT 403 103/ul Normal 150-450 [facility] Comment on above: Performed By: #### B MP, TSH #### [facility] [address] [place] [address] Dr. Reema Mireles RBC 4.37 106/ul Normal 4.20-5.40 [facility] Comment on above: Performed By: #### B GURPREET, TSH #### [facility] [address] [place] [address] Dr. Reema Mireles WBC 6.3 103/ul Normal 4.0-11.0 [facility] Comment on above: Performed By: #### B GURPREET, TSH #### [facility] [address] [place] [address] Dr. Reema Mireles PROF 14(COMP METB)on 09-14- 022 Albumin [Mass/Vol] 4.3 g/dL Normal 3.4-5.0 [facility] Comment on above: Performed By: #### B GURPREET, TSH #### [facility] [address] [place] [address] Dr. Reema Mireles Albumin/Globulin [Mass ratio] 1.2 {ratio} Normal [facility] Comment on above: Performed By: #### B MP, TSH #### [facility] [address] [place] [address] Dr. Reema Mireles ALP [Catalytic activity/Vol] 79 U/L Normal 46-116 [facility] Comment on above: Performed By: #### B GURPREET, TSH #### [facility] [address] [place] [address] Dr. Reema Mireles ALT [Catalytic activity/Vol] 31 U/L Normal 14-59 [facility] Comment on above: Performed By: #### B MP, TSH #### [facility] [address] [address] [address] Reema Mireles Anion gap [Moles/Vol] 12.1 mmol/L Normal [facility] Comment on above: Performed By: #### B MP, TSH #### [facility] [address] [address] [address] Reema Mireles AST [Catalytic activity/Vol] 17 U/L Normal 15-37 [facility] Comment on above: Performed By: #### B MP, TSH #### [facility] [address] [address] [address] Reema Mireles Bilirubin [Mass/Vol] 0.4 mg/dL Normal 0.2-1.0 [facility] Comment on above: Performed By: #### B MP, TSH #### [facility] [address] [address] [address] Reema Mireles Calcium [Mass/Vol] 8.9 mg/dL Normal 8.5-10.1 [facility] Comment on above: Performed By: #### B MP, TSH #### [facility] [address] [address] [address] Reema Mireles Chloride [Moles/Vol] 98 mmol/L Normal 98-107 [facility] Comment on above: Performed By: #### B MP, TSH #### [facility] [address] [address] [address] Reema Mireles CO2 [Moles/Vol] 27.0 mmol/L Normal 21.0-32.0 [facility] Comment on above: Performed By: #### B MP, TSH #### [facility] [address] [address] [address] Reema Mireles Creatinine [Mass/Vol] 0.65 mg/dL Normal 0.55-1.02 [facility] Comment on above: Performed By: #### B MP, TSH #### [facility] [address] [address] [address] Reema Mireles EGFR-AF P[place] >60 Normal >=60 [facility] Comment on above: Performed By: #### B MP, TSH #### [facility] [address] [address] [address] Reema Mireles EGFR-NON AF [place] >60 Normal >=60 [facility] Comment on above: Performed By: #### B MP, TSH #### [facility] [address] [address] [address] Reema Mireles Globulin (S) [Mass/Vol] 3.5 g/dL Normal [facility] Comment on above: Performed By: #### B MP, TSH #### [facility] [address] [address] [address] Reema Mireles Glucose [Mass/Vol] 106 mg/dL Normal 74-106 [facility] Comment on above: Performed By: #### B MP, TSH #### [facility] [address] [address] [address] Reema Mireles Potassium [Moles/Vol] 3.1 mmol/L Critically low 3.5-5.1 [facility] Comment on above: Performed By: #### B MP, TSH #### [facility] [address] [address] [address] Reema Mireles Protein [Mass/Vol] 7.8 g/dL Normal 6.4-8.2 [facility] Comment on above: Performed By: #### B MP, TSH #### [facility] [address] [address] [address] Reema Mireles Sodium [Moles/Vol] 134 mmol/L Critically low 136-145 [facility] Comment on above: Performed By: #### B MP, TSH #### [facility] [address] [address] [address] Reema Mireles Urea nitrogen [Mass/Vol] 6.0 mg/dL Critically low 7.0-18.0 [facility] Comment on above: Performed By: #### B MP, TSH #### [facility] [address] [address] [address] Reema Mireles Urea nitrogen/Creatinine [Mass ratio] 9.2 mg/mg Normal [facility] Comment on above: Performed By: #### B MP, TSH #### [facility] [address] [place] [address] Dr. Reema Mireles ACETONE SERUMon 08-11-2022 ACETONE Negative Normal NEGATIVE [facility] Comment on above: Performed By: #### B MP, TSH #### [facility] [address] [place] [address] Dr. Reema Mireles CBC AUTO DIFFon 08-11-2022 BASO # 0.1 103/ul Normal 0.0-0.1 [facility] Comment on above: Performed By: #### B MP, TSH #### [facility] [address] [place] [address] Dr. Reema Mireles Basophils/100 WBC (Bld) 0.5 % Normal 0.2-2.0 [facility] Comment on above: Performed By: #### B MP, TSH #### [facility] [address] [place] [address] Dr. Reema Mireles EO # 0.1 103/ul Normal 0.0-0.7 [facility] Comment on above: Performed By: #### B MP, TSH #### [facility] [address] [place] [address] Dr. Reema Mireles Eosinophils/100 WBC (Bld) 0.7 % Critically low 0.9-7.0 [facility] Comment on above: Performed By: #### B MP, TSH #### [facility] [address] [place] [address] Dr. Reema Mireles Erythrocyte distribution width (RBC) [Ratio] 11.7 % Normal 11.0-15.0 [facility] Comment on above: Performed By: #### B MP, TSH #### [facility] [address] [place] [address] Dr. Reema Mireles Hematocrit (Bld) [Volume fraction] 37.6 % Normal 36.0-48.0 [facility] Comment on above: Performed By: #### B MP, TSH #### [facility] [address] [place] [address] Dr. Reema Mireles Hemoglobin (Bld) [Mass/Vol] 13.1 g/dL Normal 12.0-16.0 [facility] Comment on above: Performed By: #### B MP, TSH #### [facility] [address] [place] [address] Dr. Reema Mrieles IG # 0.02 10e3/ul Normal 0.00-0.03 [facility] Comment on above: Performed By: #### B MP, TSH #### [facility] [address] [place] [address] Dr. Reema Mireles IG % 0.2 % Normal 0.0-0.5 [facility] Comment on above: Performed By: #### B MP, TSH #### [facility] [address] [place] [address] Dr. Reema Mireles LYMPH # 2.7 103/ul Normal 1.2-3.8 [facility] Comment on above: Performed By: #### B MP, TSH #### [facility] [address] [place] [address] Dr. Reema Mireles Lymphocytes/100 WBC (Bld) 28.5 % Normal 20.5-60.0 [facility] Comment on above: Performed By: #### B MP, TSH #### [facility] [address] [place] [address] Dr. Reema Mireles MANUAL DIFF REQ NO Normal [facility] Comment on above: Performed By: #### B MP, TSH #### [facility] [address] [place] [address] Dr. Reema Mireles MCH (RBC) [Entitic mass] 30.3 pg Normal 26.7-34.0 [facility] Comment on above: Performed By: #### B MP, TSH #### [facility] [address] [place] [address] Dr. Reema Mireles MCHC (RBC) [Mass/Vol] 34.8 g/dL Normal 29.9-35.2 [facility] Comment on above: Performed By: #### B MP, TSH #### [facility] [address] [place] [address] Dr. Reema Mireles MCV (RBC) [Entitic vol] 87.0 fL Normal 81.0-99.0 [facility] Comment on above: Performed By: #### B MP, TSH #### [facility] [address] [place] [address] Dr. Reema Mireles MONO # 0.8 103/ul Normal 0.3-0.8 [facility] Comment on above: Performed By: #### B MP, TSH #### [facility] [address] [place] [address] Dr. Reema Mireles Monocytes/100 WBC (Bld) 8.2 % Normal 1.7-12.0 [facility] Comment on above: Performed By: #### B GURPREET, TSH #### [facility] [address] [place] [address] Dr. Reema Mireles NEUT # 5.9 103/ul Normal 1.4-6.5 [facility] Comment on above: Performed By: #### B GURPREET, TSH #### [facility] [address] [place] [address] Dr. Reema Mireles Neutrophils/100 WBC (Bld) 61.9 % Normal 43.0-75.0 [facility] Comment on above: Performed By: #### B GURPREET, TSH #### [facility] [address] [place] [address] Dr. Reema Mireles Platelet mean volume (Bld) [Entitic vol] 10.2 fL Normal 9.5-13.5 [facility] Comment on above: Performed By: #### B MP, TSH #### [facility] [address] [place] [address] Dr. Reema Mireles PLT 382 103/ul Normal 150-450 [facility] Comment on above: Performed By: #### B MP, TSH #### [facility] [address] [place] [address] Dr. Reema Mireles RBC 4.32 106/ul Normal 4.20-5.40 [facility] Comment on above: Performed By: #### B MP, TSH #### [facility] [address] [place] [address] Dr. Reema Mireles WBC 9.6 103/ul Normal 4.0-11.0 [facility] Comment on above: Performed By: #### B GURPREET, TSH #### [facility] [address] [place] [address] Dr. Reema Mireles CRPon 08-11-2022 CRP [Mass/Vol] mg/L Normal <=1.[address] [facility] Comment on above: Performed By: #### B MP, TSH #### [facility] [address] [place] [address] Dr. Reema Mireles ER URINE PROFILEon Bilirubin Ql (U) Negative Normal NEGATIVE [facility] Comment on above: Performed By: #### B GURPREET, TSH #### [facility] [address] [place] [address] Dr. Reema Mireles Clarity (U) CLEAR Normal CLEAR [facility] Comment on above: Performed By: #### B GURPREET, TSH #### [facility] [address] [place] [address] Dr. Reema Mireles Color (U) LT. YELLOW Normal YELLOW [facility] Comment on above: Performed By: #### B GURPREET, TSH #### [facility] [address] [place] [address] Dr. Reema ELIZALDE A micrscopic examination will be performed if indicated. Normal [facility] Comment on above: Performed By: #### B GURPREET, TSH #### [facility] [address] [place] [address] Dr. Reema Mireles Glucose Ql (U) Negative Normal NEGATIVE [facility] Comment on above: Performed By: #### B MP, TSH #### [facility] [address] [place] [address] Dr. Reema Mireles Hemoglobin Ql (U) Negative Normal NEGATIVE [facility] Comment on above: Performed By: #### B MP, TSH #### [facility] [address] [place] [address] Dr. Reema Mireles Ketones Ql (U) Negative Normal NEGATIVE [facility] Comment on above: Performed By: #### B MP, TSH #### [facility] [address] [place] [address] Dr. Reema Mireles LEUKOCYTES Negative Normal NEGATIVE [facility] Comment on above: Performed By: #### B MP, TSH #### [facility] [address] [place] [address] Dr. Reema Mireles Nitrite Ql (U) Negative Normal NEGATIVE [facility] Comment on above: Performed By: #### B MP, TSH #### [facility] [address] [place] [address] Dr. Reema Mireles pH (U) 5.5 [pH] Normal 5-9 [facility] Comment on above: Performed By: #### B MP, TSH #### [facility] [address] [place] [address] Dr. Reema Mireles SPEC GRAVITY <=1.005 Abnormal 1.005-<=1.025 [facility] Comment on above: Performed By: #### B MP, TSH #### [facility] [address] [place] [address] Dr. Reema Mireles UA PROTEIN Negative Normal NEGATIVE/ TRACE [facility] Comment on above: Performed By: #### B MP, TSH #### [facility] [address] [place] [address] Dr. Reema Mireles UR MICRO IND NOT INDICATED Normal [facility] Comment on above: Performed By: #### B MP, TSH #### [facility] [address] [place] [address] Dr. Reema Mireles Urobilinogen Qn (U) 0.2 {Renny'U}/dL Normal 0.2 - 1. 0 [facility] Comment on above: Performed By: #### B MP, TSH #### [facility] [address] [place] [address] Dr. Reema Mireles LIPASEon 08-11-2022 Lipase [Catalytic activity/Vol] 71.0 U/L Critically low 73.0-393.0 [facility] Comment on above: Performed By: #### B MP, TSH #### [facility] [address] [place] [address] Dr. Reema Mireles URon 08-11-2022 , QUAL Negative Normal NEGATIVE [facility] Comment on above: Performed By: #### C VDTB #### [facility] [address] [place] [address] Dr. Reema Mireles PROF 14(COMP METB)on 022 Albumin [Mass/Vol] 4.3 g/dL Normal 3.4-5.0 [facility] Comment on above: Performed By: #### B MP, TSH #### [facility] [address] [place] [address] Dr. Reema Mireles Albumin/Globulin [Mass ratio] 1.2 {ratio} Normal [facility] Comment on above: Performed By: #### B MP, TSH #### [facility] [address] [place] [address] Dr. Reema Mireles ALP [Catalytic activity/Vol] 70 U/L Normal 46-116 [facility] Comment on above: Performed By: #### B GURPREET, TSH #### [facility] [address] [place] [address] Dr. Reema Mireles ALT [Catalytic activity/Vol] 16 U/L Normal 14-59 [facility] Comment on above: Performed By: #### B GURPREET, TSH #### [facility] [address] [place] [address] Dr. Reema Mireles Anion gap [Moles/Vol] 10.5 mmol/L Normal [facility] Comment on above: Performed By: #### B MP, TSH #### [facility] [address] [place] [address] Dr. Reema Mireles AST [Catalytic activity/Vol] 8 U/L Critically low 15-37 [facility] Comment on above: Performed By: #### B MP, TSH #### [facility] [address] [place] [address] Dr. Reema Mireles Bilirubin [Mass/Vol] 0.3 mg/dL Normal 0.2-1.0 [facility] Comment on above: Performed By: #### B MP, TSH #### [facility] [address] [place] [address] Dr. Reema Mireles Calcium [Mass/Vol] 9.0 mg/dL Normal 8.5-10.1 [facility] Comment on above: Performed By: #### B MP, TSH #### [facility] [address] [place] [address] Dr. Reema Mireles Chloride [Moles/Vol] 104 mmol/L Normal 98-107 [facility] Comment on above: Performed By: #### B GURPREET, TSH #### [facility] [address] [place] [address] Dr. Reema Mireles CO2 [Moles/Vol] 26.5 mmol/L Normal 21.0-32.0 [facility] Comment on above: Performed By: #### B GURPREET, TSH #### [facility] [address] [place] [address] Dr. Reema Mireles Creatinine [Mass/Vol] 0.79 mg/dL Normal 0.55-1.02 [facility] Comment on above: Performed By: #### B GURPREET, TSH #### [facility] [address] [place] [address] Dr. Reema Mireles EGFR-AF [place] >60 Normal >=60 [facility] Comment on above: Performed By: #### B GURPREET, TSH #### [facility] [address] [place] [address] Dr. Reema Mireles EGFR-NON AF [place] >60 Normal >=60 [facility] Comment on above: Performed By: #### B GURPREET, TSH #### [facility] [address] [place] [address] Dr. Reema Mireles Globulin (S) [Mass/Vol] 3.5 g/dL Normal [facility] Comment on above: Performed By: #### B MP, TSH #### [facility] [address] [place] [address] Dr. Reema Mireles Glucose [Mass/Vol] 106 mg/dL Normal 74-106 [facility] Comment on above: Performed By: #### B GURPREET, TSH #### [facility] [address] [place] [address] Dr. Reema Mireles Potassium [Moles/Vol] 3.0 mmol/L Critically low 3.5-5.1 [facility] Comment on above: Performed By: #### B GURPREET, TSH #### [facility] [address] [place] [address] Dr. Reema Mireles Protein [Mass/Vol] 7.8 g/dL Normal 6.4-8.2 [facility] Comment on above: Performed By: #### B GURPREET, TSH #### [facility] [address] [place] [address] Dr. Reema Mireles Sodium [Moles/Vol] 138 mmol/L Normal 136-145 [facility] Comment on above: Performed By: #### B GURPREET, TSH #### [facility] [address] [place] [address] Dr. Reema Mireles Urea nitrogen [Mass/Vol] 8.0 mg/dL Normal 7.0-18.0 [facility] Comment on above: Performed By: #### B GURPREET, TSH #### [facility] [address] [place] [address] Dr. Reema Mireles Urea nitrogen/Creatinine [Mass ratio] 10.1 mg/mg Normal [facility] Comment on above: Performed By: #### B GURPREET, TSH #### [facility] [address] [place] [address] Dr. Reema Mireles PROTIMEon 08-11-2022 INR Coag (PPP) [Relative time] 1.00 {INR} Normal [facility] Comment on above: Performed By: #### P T, PTT #### [facility] [address] [place] [address] Dr. Reema Mireles INR GUIDELINES SEE BELOW Normal [facility] Comment on above: Result Comment: FELICIANO RED INR: 2.0 - 3.0 CONDITIONS NOT LISTED BELOW 2.5 - 3.5 FOR PROSTHETIC HEART VALVE REPLACEMENT 2.5 - 3.5 RECURRENT THROMBOSIS Performed By: #### P T, PTT #### [facility] [address] [place] [address] Dr. Reeam Mireles PT Coag (PPP) [Time] 10.8 s Normal 9.0-11.6 [facility] Comment on above: Performed By: #### P T, PTT #### [facility] [address] [place] [address] Dr. Reema Mireles PTTon 08-11-2022 aPTT Coag (Bld) [Time] 30.8 s Normal 22.3-36.2 [facility] Comment on above: Performed By: #### P T, PTT #### [facility] [address] [place] [address] Dr. Reema Mireles SED RATE WESTERGRENon 2021 SED RATE 10 mm/hr Normal <=20 [facility] Comment on above: Performed By: #### B MP, TSH #### [facility] [address] [place] [address] Dr. Reema Mireles TSHon 08-11-2022 TSH 3.313 uIU/mL Normal 0.358-3.740 [facility] Comment on above: Performed By: #### B MP, TSH #### [facility] [address] [place] [address] Dr. Reema Mireles Discharge Instructionson Discharge Instructions [id number]:127 Normal [facility] Comment on above: Other Comment: wrong patient STOOL CULTUREon 04-20-2022 Campylobacter Culture Final report Normal [facility] Comment on above: Performed By: #### B MP, TSH #### [facility] [address] [place] [address] Dr. Reema Mireles E coli Shiga Toxin EIA Negative Normal Negative [facility] Comment on above: Performed By: #### B MP, TSH #### [facility] [address] [place] [address] Dr. Reema Mireles Result 1 Comment Normal [facility] Comment on above: Result Comment: No S almonella or Shigella recovered. Performed By: #### B MP, TSH #### [facility] [address] [place] [address] Dr. Reema Mireles Result Comment: No C ampylobacter species isolated. Salmonella/Shigella Screen Final report Normal [facility] Comment on above: Performed By: #### B MP, TSH #### [facility] [address] [place] [address] Dr. Reema Mireles Coding Summary.on 04-14-2022 Coding Summary. CD:[id number] G h0bWw+PGhlYWQ+YQ9UOVT mL80mrWBtbM5UG8dYBE5M UXJEKVRXAZ6GDO1rnGP1M FfaV9KsmuFc GfhstWBzHA71IKd4QIS0w VscYAhagV6tsHNcD9z7Bp RpBL47zL27NJhsUWUjOtD 3LjZpbjsgbWFy V3qiCtWlyRDlLxd+PHRhY mxlIHdpZHRoPScxMDAlJy TgbRmnJG9iQr9gMVHfJHS vbGxhcHNlOiBj w9lxPXCnORosGJ1pvEipN 3BqcWT3JTVme8g5Tk24iF I+MTCeARA2xIkgWNwcx87 4HmAvg1vdBSH4 wNBtWVfnRKU8B38vd7H5T TTvWFAtCBN1sDI1eM0qvA txxqbyL4OnoMLpEvV9QRX 9xOBtwV5aaFhu womnoH2hZwc+P62RVH1JT MVLFC2TJln3X3SyHnwylC I+YZ53MBDwXZ20sQClsUW me1gdcXp5BmPe LAMhFCL4vLsnCPmin6QyE SOrH11peXFfq6K8KRJyyN dsgFJmQwKosNJ9kC9cWPe pocpta8wwmsgr Yiftm3nali22kP93G81rR WcgAYYaHHR7LHEjATYhwI fqxh0hjV6fFy7+PBjjy8e sr8iwnCw6XfFi EVBornOvfBgdGXM9u7WbY r99J4RtoAjec8MzXvn7ge 83wCOuh6Y8dLH0YRhhUEH zoH0sCHbxIcU6 TBKlWrQhjW21yNKjRCooI q2yrTaisChdWF4vBMYvdj gnUBDibA6gEKKnoKFqsWi nKA1zIUIwwjiu y384FkSnFPY2QOWezNTlF 8JasP0hTfClGMXpOXEtB3 UxaUPkNFonD443ZSbbBkP 5JDIhisEyZ8Wh NUIbnPtpHjO5w5C9Yr6Do 8VsmjoyTRK3PZowRXN2Hc Q8AvXvGiL7F2XnRbc2NUU egGkwJZ7wA9Kb XAChancpwweahEO5FZWxK KFguM67hNUlGYnuPx4jf3 F1g294IUPtOEZmlM36Ez3 udDogMTBwdCBU rG7saofbg4hdynqmLeTgU FEwPRs5EUc1RNIujRugHo FyAUD4DyS6WPR3aXAkmK7 tzCkbbgkskJ0d Oyc+I76hhR1oOPJ7MQA4s izwBBAsclPvAL08FM79Q3 RyPjwvdGFibGU+PGRpdiB pdPsbHC2lXxXb l7gkx5MhNBfgI7VcJLBzX LmmFcz2TPDrSTL4oMD5cH 4fCVBjVOnir2K4vBM1R0X stpAoul4nq9ok OHGwRMmqZ48inLDsa1H9X MSidXB1UVTtzFklDkFjyZ 93Oyc+EMGfuBfnw0AsLsj rl2rqg1ertKg7 HnBvOCTqplSkwZjdXCJ4w 0ZfRw34V24fWLowXHIuQA OsFARnUWPhnEbwob1woM2 wIi8+PGNvbCB3 pZZ7sN4eUINkGsV7XOkgF 982WaYmtQTyZlfgc0dzb7 qusZo2XfFdDKVvggRetPt nFOD6l4AxOe84 M44pJWbzFWWpAFAtAKAoE BAbeCwmza1itD8vZg8+PC 1er8mhif20fV27cMJ+PHR lWXW5aDdeORii EFGjeT8dGFzkJdV8URVeN mRjrF89rIUjRUaeXt6cuX epoPdqIY9zQYYexbhwo91 5LpQzl6dvWAIq iHSaXMgrIFE0C70uf4M3K FLdXSUkQBW3jBR3zA8hwC lnbjogbGVmdDsgdmVydGl qZWwdTRsjS153 IHRvcDsnPlBhdGllbnQgT bJdTAk0H1QfJjf6ZSFvvJ uyON3gdXBaUFssLl8ufSv lhUaoDU2iCMNy twawy982LcDhl2liZCAdu KHnPCgwJHR9F47zq6X6GR NcIJQnKZH4lDB4wT4esVw nbjogbGVmdDsg tkGnfVrcAZdkNNnjQ153H HRvcDsnPkJpcnRoIERhdG Z8ZT58XG04lXLzb1M4iRC 8G0ZxNFNnzqpe lwfxzPW2TROkZUTidJ58K h7beCxnBo5pAKXwNGM0EB ZeqPGqG6FspF3mGtLpSZQ lGRChB7RxfZGh BJkaR926KThbGrX6OTQgb jAiD8PdTZBfwEpgYoJ1x9 F0Yd4WK7E6DS21IG20gZJ ce1R2oEQ2E5Mf HONbnspvplbvgCH9FNOiZ NRhdC62Yi3hgOkpEv3wPB AwOBA4LVVhdWAmH3LwlU5 yOiAjMDAwMDAw J6ZxgASwZByvU779OPscU eE2GCNkmaLwY6YzANSdmJ ylNkD9h8A2Tq1TPMz4CA6 2ID78mDYni7I8 eRW9L9PrAMJgxnogoljow AL4CXMdMBRzbP45Li1lqQ kgGd4xAJUlSFJ4HMVgyFO sH0LsnO0lSiWq EZDzVEMuE1IdiDUnMTksR 458LDbxXxP9FIQtqgDyR3 EuWZIniIeaYuA4b0V8Ui2 NOEHkTR47HUV4 tYZ1GO51OA62E0ZiJsmve GFibGU+PHRhYmxlIHdpZH RoPScxMDAlJyBzdHlsZT0 iMb7aFGHhZWNz vPfbmPWlZuBfn4yaLVDaA ZwqFO7zlBsaW2VooNM6MA Ofc9i5Py96V86bH9FdqYK +AGSvxEX4aMI8 qB2pVeXjRmW2EKlaT215Z uMdnTGpWwgcu3qvq7rnuR s4VfF9GDOemxKpqSubTXV 8v4AiLn03R32u IHdpZHRoPSIxNSUiIHZhb Etspl3ieI5kOt4+PGNvbC P9tST3oZ8fJjGlClS6ODr vN185PpLfaHSy Ijyza0yin8whbLd4IoCvH TMlxaMofTyySQC1g3RjLv 56K4YomMnjn2ZxMid0vc4 1wYVjp0W4lQS2 Q4WtFGJqwotndCGvfXhfB V7iDPZljcsnYLTrbD0qJM CtZ7z8DxMzZqU9VRocN3B zqwX6YPAysBIj HSagELR7U66kd6K8IJEnH ARqKPJ2dTH0qA8rzQpyel ogbGVmdDsgdmVydGljYWw mVWquX784VXFv kUioZKIgyJ7xTRYduRCav StaIZ9zADCzaokyUjhDTX GQJ72TM1mNUPGFWJPVHFO 7Q7KzOrb3GYDw hPbeQX6dzEEmFWcjGr9wl SlaaEugOJ5oKDQjnnutJQ HacM7aJHTnfWQnmJckZE6 vGAXfzppbv303 AtJmKKP6QNUycBHpT6Jja V7bFuBaSBQcJCZwA1GmmW BlLRpzZ092WHbcTmV2PWG iifLtR8DuCZZh sUlqCwT3a1K7Aw9bXb6sI H8nFYAaCO63BY99wLOcn4 L8mCI6U8VcOUGezrepemz nuGU3LDHgNGPk wK87mDYzTDgmCl5jp1Y3d 191UDMsPQDhyV94Jc7efU taSOFkrCRDrW8fosard0e vcjogIzAwMDAw KVv4MQi7QJGulQtkCgGaE TK0BmQ2QIN1vVPdcS6wfU kmbngsrQ9gYvc+MjAgWWV xuvK1P6UfQfu0 YFRczRznFZ8bxVVyLPtaD k4llBtogZrmMG7oNAMsxv qdJUWdaR7zWTFjyESceBd gXV3zCDZbqitq g613SaOkZTS1JYSkxNMgC 0XblQ7qMhQjRSKkPNErK8 UchEYsQVplT730AUpgSiB 0PYSgnvZlQ2Rh LNLmtLkjQyW3z8R7Eq0KC A1frJL9K6UbXva8ARBfwF lfMS5iqDQlZBwiMu5bxEw bnEqeJZ5fNQCu tlcqMERkeX0yESMqfGOpr FnvPG4oBGTchfpfi905Oo MwMZR9WMEcyNGqD9YnlV5 yOiAjMDAwMDAw Y4QfqMKhKNikW282JWmbW lH6ZTMvqdAiI2MjRAGviB jbVaU5h1T8Fz8SrLDjO8G rH4a4P5CsWcea dHI+EH92ZEBmRV05rIYyk AOgn3xpfYz5CfPsGSAyGC H9gQfhOFcxj0HrNGNbS13 hlFSum1A0WZIf zAyurEZhEvNfiHZ9sS7jE Qlwkdplu8cxorvgAxagz8 lhiq47iG14B27zRHdvDYI oPSIzMCUiIHZh gXcsox2chM4wBo9+PGNvb DC3hFY1zO6vJkPgXnZ0QZ ggN693GhLgeERpElxjm4e qi0cqaBs5MnNu IIExxqNeePypYMZ9z3QkU v89C26lDOnbKQYpJRZsCD ZdIUZvbScmvw5mhV1wGz9 +BT3dp6vesh83 wA61gFC+LZHhVAD5qZztK HrhERFinC4bRFblSdH7ZZ LrNuKflW10hINtAIhyCs5 abEukjGvoOI8v MAQwgqihz319UdVac6ddF RDkxOYpCCumHFV9C01hw0 T3FJToPTWnBMN0zSG8kZ9 hbGlnbjogbGVm dDsgdmVydGljYWwtYWxpZ 683EDZptEfgTrXptARkG0 ybobIAUT9xQaowcTG+PHR bLQM4nPtjTKdn DQVjyS9bJWQyW8x4MiMsY eD6CQpuR7AasmA1VMWgdC YwWVPpyIGRlP0joqika6w vcjogIzAwMDAw DUl0MCv8ECQxnSkmVcUrT BS5LcG1RQZ6tKVayQ4tmF isrmcudK7tSoq+RklOOjw vdGQ+PHRkIHN0 nKgfSNvmNFLijB8bXNGeZ 9c0OiKlKiW0SUykY6Ualj E3IYSzlGLiZAQiqZIRdB7 msquyr8zxvfit KwHgDIFnOAf0ZCy9WTKqs WlyQxIaSGH1ZxN7SHG5wA JshT0ydGalqhkrxG3zTao +TVJOOjwvdGQ+ DBPfWBC4bAyiUAwvVZEfv Q3xXWQkD4q1RhMsGmV2CS lrL3CglwH8PWZaeSZbUAD swOVKlG4vmvoq r1hwdkvkDsWsMIJwHSp2D Ae9YUVpkBolAkKhNGX5Dk W0HSA3gMCtbS4jnJlevlm xaS4xSvg+UGF5 DJG4VD37ZU43L6LfCezhc GFibGU+PHRhYmxlIHdpZH RoPScxMDAlJyBzdHlsZT0 oHu1cUBJuUOIr bGxh (more content not included)... Normal [facility] CBC AUTO DIFFon 04-13-2022 BASO # 0.1 103/ul Normal 0.0-0.1 [facility] Comment on above: Performed By: #### C VDTBH #### [facility] [address] [address] [address] Reema Mireles Basophils/100 WBC (Bld) 0.6 % Normal 0.2-2.0 [facility] Comment on above: Performed By: #### C VDTBH #### [facility] [address] [address] [address] Reema Mireles EO # 0.0 103/ul Normal 0.0-0.7 [facility] Comment on above: Performed By: #### C VDTBH #### [facility] [address] [address] [address] Reema Mireles Eosinophils/100 WBC (Bld) 0.2 % Critically low 0.9-7.0 [facility] Comment on above: Performed By: #### C VDTBH #### [facility] [address] [address] [address] Reema Mireles Erythrocyte distribution width (RBC) [Ratio] 11.4 % Normal 11.0-15.0 [facility] Comment on above: Performed By: #### C VDTBH #### [facility] [address] [address] [address] Reema Mireles Hematocrit (Bld) [Volume fraction] 38.3 % Normal 36.0-48.0 [facility] Comment on above: Performed By: #### C VDTBH #### [facility] [address] [place] [address] Dr. Reema Mireles Hemoglobin (Bld) [Mass/Vol] 13.4 g/dL Normal 12.0-16.0 [facility] Comment on above: Performed By: #### C VDTBH #### [facility] [address] [place] [address] Dr. Reema Mireles IG # 0.01 10e3/ul Normal 0.00-0.03 [facility] Comment on above: Performed By: #### C VDTBH #### [facility] [address] [place] [address] Dr. Reema Mireles IG % 0.1 % Normal 0.0-0.5 [facility] Comment on above: Performed By: #### C VDTBH #### [facility] [address] [place] [address] Dr. Reema Mireles LYMPH # 1.8 103/ul Normal 1.2-3.8 [facility] Comment on above: Performed By: #### C VDTBH #### [facility] [address] [place] [address] Dr. Reema Mireles Lymphocytes/100 WBC (Bld) 22.2 % Normal 20.5-60.0 [facility] Comment on above: Performed By: #### C VDTBH #### [facility] [address] [place] [address] Dr. Reema Mireles MANUAL DIFF REQ NO Normal [facility] Comment on above: Performed By: #### C VDTBH #### [facility] [address] [place] [address] Dr. Reema Mireles MCH (RBC) [Entitic mass] 30.6 pg Normal 26.7-34.0 [facility] Comment on above: Performed By: #### C VDTBH #### [facility] [address] [place] [address] Dr. Reema Mireles MCHC (RBC) [Mass/Vol] 35.0 g/dL Normal 29.9-35.2 [facility] Comment on above: Performed By: #### C VDTBH #### [facility] [address] [place] [address] Dr. Reema Mireles MCV (RBC) [Entitic vol] 87.4 fL Normal 81.0-99.0 [facility] Comment on above: Performed By: #### C VDTBH #### [facility] [address] [place] [address] Dr. Reema Mireles MONO # 0.7 103/ul Normal 0.3-0.8 [facility] Comment on above: Performed By: #### C VDTBH #### [facility] [address] [place] [address] Dr. Reema Mireles Monocytes/100 WBC (Bld) 8.2 % Normal 1.7-12.0 [facility] Comment on above: Performed By: #### C VDTBH #### [facility] [address] [place] [address] Dr. Reema Mireles NEUT # 5.5 103/ul Normal 1.4-6.5 [facility] Comment on above: Performed By: #### C VDTBH #### [facility] [address] [place] [address] Dr. Reema Mireles Neutrophils/100 WBC (Bld) 68.7 % Normal 43.0-75.0 [facility] Comment on above: Performed By: #### C VDTBH #### [facility] [address] [place] [address] Dr. Reema Mireles Platelet mean volume (Bld) [Entitic vol] 10.1 fL Normal 9.5-13.5 [facility] Comment on above: Performed By: #### C VDTBH #### [facility] [address] [place] [address] Dr. Reema Mireles PLT 404 103/ul Normal 150-450 [facility] Comment on above: Performed By: #### C VDTBH #### [facility] [address] [place] [address] Dr. Reema Mireles RBC 4.38 106/ul Normal 4.20-5.40 [facility] Comment on above: Performed By: #### C VDTBH #### [facility] [address] [place], [place] [address] Dr. Reema Mireles WBC 8.0 103/ul Normal 4.0-11.0 [facility] Comment on above: Performed By: #### C VDTBH #### [facility] [address] [place], [place] [address] HEAD WO CONon [...] by: AURELIA CARLOS Date: 2022-04-13 16:29 Normal [facility] Discharge Instructionson Discharge Instructions [id number]:127 Normal [facility] ED Note-Physicianon 04-13-20 22 ED Note-Physician Basic Information Time Seen: Lata Hardy M.D. 04/12/2022 19:56 Chief Complaint Pt. presents to the ed with c/o headache and vertigo since thursday. Pt. was seen at [facility] and started on prednisone. pt. stopped taking [...] The patient states she was seen at [facility] discharged home. She went to urgent care [...] neurological deficit. She has been seen at [facility] and started on prednisone. Possible her symptoms [...] ADRYAN MARIE In 3 days 04/15/2022 EDT [facility] Business (1) Additional Instructions: Return to the [...] Diagnostic Results No qualifying data available. Normal [facility] Comment on above: Result Comment: Elec tronically Signed By: Antony Villa, Lata \.br\Date and Time Signed: 04/13/22 04:56 EDT ER URINE PROFILEon 2 Bilirubin Ql (U) Negative Normal NEGATIVE [facility] Comment on above: Performed By: #### P REGU, ERUR #### [facility] [address] [place] [address] Dr. Reema Mireles Clarity (U) CLEAR Normal CLEAR [facility] Comment on above: Performed By: #### P REGU, ERUR #### [facility] [address] [place] [address] Dr. Reema Mireles Color (U) LT. YELLOW Normal YELLOW [facility] Comment on above: Performed By: #### P REGU, ERUR #### [facility] [address] [place] [address] Dr. Reema ELIZALDE A micrscopic examination will be performed if indicated. Normal [facility] Comment on above: Performed By: #### P REGU, ERUR #### [facility] [address] [place] [address] Dr. Reema Mireles Glucose Ql (U) Negative Normal NEGATIVE [facility] Comment on above: Performed By: #### P REGU, ERUR #### [facility] [address] [place] [address] Dr. Reema Mireles Hemoglobin Ql (U) Negative Normal NEGATIVE [facility] [place] Comment on above: Performed By: #### P REGU, ERUR #### [facility] [address] [place] [address] Dr. Reema Mireles Ketones Ql (U) Negative Normal NEGATIVE [facility] Comment on above: Performed By: #### P REGU, ERUR #### [facility] [address] [place] [address] Dr. Reema Mireles LEUKOCYTES Negative Normal NEGATIVE [facility] Comment on above: Performed By: #### P REGU, ERUR #### [facility] [address] [place] [address] Dr. Reema Mireles Nitrite Ql (U) Negative Normal NEGATIVE [facility] Comment on above: Performed By: #### P REGU, ERUR #### [facility] [address] [place] [address] Dr. Reema Mireles pH (U) 6.5 [pH] Normal 5-9 [facility] Comment on above: Performed By: #### P REGU, ERUR #### [facility] [address] [place] [address] Dr. Reema Mireles SPEC GRAVITY 1.005 Normal 1.005-<=1.025 [facility] Comment on above: Performed By: #### P REGU, ERUR #### [facility] [address] [place] [address] Dr. Reema Mireles UA PROTEIN Negative Normal NEGATIVE/ TRACE [facility] Comment on above: Performed By: #### P REGU, ERUR #### [facility] [address] [place] [address] Dr. Reema Mireles UR MICRO IND NOT INDICATED Normal [facility] Comment on above: Performed By: #### P REGU, ERUR #### [facility] [address] [place] [address] Dr. Reema Mireles Urobilinogen Qn (U) 0.2 {Renny'U}/dL Normal 0.2 - 1. 0 [facility] Comment on above: Performed By: #### P RUSTY, ERUR #### [facility] [address] [place] [address] Dr. Reema Mireles URon 04-13-2022 , QUAL Negative Normal NEGATIVE [facility] Comment on above: Performed By: #### P RUSTY, ERUR #### [facility] [address] [place] [address] Dr. Reema Mireles PROF CHEM 8 (BAS METB)on Anion gap [Moles/Vol] 14.0 mmol/L Normal [facility] Comment on above: Performed By: #### B GURPREET, TSH #### [facility] [address] [place] [address] Dr. Reema Mireles Calcium [Mass/Vol] 9.2 mg/dL Normal 8.5-10.1 [facility] Comment on above: Performed By: #### B GURPREET, TSH #### [facility] [address] [place] [address] Dr. Reema Mireles Chloride [Moles/Vol] 102 mmol/L Normal 98-107 [facility] Comment on above: Performed By: #### B GURPREET, TSH #### [facility] [address] [place] [address] Dr. Reema Mireles CO2 [Moles/Vol] 26.3 mmol/L Normal 21.0-32.0 [facility] Comment on above: Performed By: #### B GURPREET, TSH #### [facility] [address] [place] [address] Dr. Reema Mireles Creatinine [Mass/Vol] 0.65 mg/dL Normal 0.55-1.02 [facility] Comment on above: Performed By: #### B GURPREET, TSH #### [facility] [address] [place] [address] Dr. Reema Mireles EGFR-AF [place] >60 Normal >=60 [facility] Comment on above: Performed By: #### B GURPREET, TSH #### [facility] [address] [address] [address] Reema Mireles EGFR-NON AF [place] >60 Normal >=60 [facility] Comment on above: Performed By: #### B GURPREET, TSH #### [facility] [address] [address] [address] Reema Mireles Glucose [Mass/Vol] 92 mg/dL Normal 74-106 [facility] Comment on above: Performed By: #### B GURPREET, TSH #### [facility] [address] [address] [address] Reema Mireles Potassium [Moles/Vol] 3.3 mmol/L Critically low 3.5-5.1 [facility] Comment on above: Performed By: #### B GURPREET, TSH #### [facility] [address] [place] [address] Dr. Reema Mireles Sodium [Moles/Vol] 139 mmol/L Normal 136-145 [facility] Comment on above: Performed By: #### B GURPREET, TSH #### [facility] [address] [place] [address] Dr. Reema Mireles Urea nitrogen [Mass/Vol] 8.0 mg/dL Normal 7.0-18.0 [facility] Comment on above: Performed By: #### B GURPREET, TSH #### [facility] [address] [place] [address] Dr. Reema Mireles Urea nitrogen/Creatinine [Mass ratio] 12.3 mg/mg Normal [facility] Comment on above: Performed By: #### B GURPREET, TSH #### [facility] [address] [place] [address] Dr. Reema Mireles TSHon 04-13-2022 TSH 1.293 uIU/mL Normal 0.358-3.740 [facility] Comment on above: Performed By: #### B GURPREET, TSH #### [facility] [address] [place] [address] Dr. Reema Mireles Consent for Treatmenton 07 Consent for Treatment [id number]:127 Normal [facility] ED Clinical Summaryon 2021 ED Clinical Summary [address] [address] ED Clinical Summary Person Information Name: JUANPABLO CHAPARRO [place] Age: 21 Years : 2000 Sex: Female Language: Turkish PCP: ADRYAN MARIE MD Marital Status: Single Phone: [phone] Visit Id: Visit Reason: Vertigo - recurrent; [...] 04/12/2022 21:07:38 04/12/2022 21:07:38 04/12/2022 21:07:38 ADDRESS: [address] [place] [id number] PHYS DOC NOTES: MEDICAL INFORMATION: Prescriptions Given: PATIENT EDUCATION INFORMATION: Instructions: General Headache Without Cause; Vertigo Follow up: With: Address: When: ADRYAN MARIE [address] [place] [address] Partigi (1) In 3 days 04/15/2022 Comments: Return to the emergency room if her headache gets worse, vertigo becomes persistent or any new symptoms DIAGNOSIS: 1:Vertigo; 2:Headache Normal [facility] ED Patient Education Noteon 04-12-2022 ED [...] you feel dizzy. General instructions ? Take knew-ide-cgmqhon and prescription medicines only as told by [...] Reviewed: 08/08/2019 Elsevier Patient Education ? 2020 [employer] Neurology General Headache Without Cause A [...] with your condition: Managing pain ? Take yadv-wlc-pyvpveb and prescription medicines only as told by [...] of beer (more content not included)... Normal [facility] ED Patient Summaryon 022 ED Patient Summary [address] [address] Patient Discharge Instructions Person Information Name: JUANPABLO CHAPARRO Age: 21 Years Arrival Date: 04/12/2022 19:22:40 Discharge Diagnosis: 1:Vertigo; 2:Headache Primary Care Physician: ADRYAN MARIE MD Provider Information Primary Provider: Lata Hardy M.D. Advanced Diagnostic Cardiac Sonographer:None The exam and treatment you received in the Emergency Department were for an urgent problem and are not intended as complete care. It is important that you follow up with a doctor, nurse practitioner, or physician?s nursing home assistant administrator for ongoing care. If your symptoms become worse or you do not improve as expected and you are unable to reach your usual health care provider, you should return to the Emergency Department. We are available 24 hours a day. JUANPABLO CHAPARRO has been given the following list of patient education materials, prescriptions and follow-up instructions: Follow-up Instructions: With: Address: When: ADRYAN MARIE [address] [place] [address] [employer] (MiName In 3 days 04/15/2022 Comments: Return to [...] opioids can be used to help relieve mvckxqol-vy-ahepbu pain and are often prescribed following a [...] addiction, tel (more content not included)... Normal [facility] CBC AUTO DIFFon 04-09-2022 BASO # 0.1 103/ul Normal 0.0-0.1 [facility] Comment on above: Performed By: #### B MP, TSH #### [facility] [address] [address] [address] Reema Mireles Basophils/100 WBC (Bld) 0.5 % Normal 0.2-2.0 [facility] Comment on above: Performed By: #### B MP, TSH #### [facility] [address] [place] [address] Dr. Reema Mireles EO # 0.1 103/ul Normal 0.0-0.7 [facility] Comment on above: Performed By: #### B MP, TSH #### [facility] [address] [place] [address] Dr. Reema Mireles Eosinophils/100 WBC (Bld) 1.0 % Normal 0.9-7.0 [facility] Comment on above: Performed By: #### B GURPREET, TSH #### [facility] [address] [place] [address] Dr. Reema Mireles Erythrocyte distribution width (RBC) [Ratio] 11.7 % Normal 11.0-15.0 [facility] Comment on above: Performed By: #### B GURPREET, TSH #### [facility] [address] [place] [address] Dr. Reema Mireles Hematocrit (Bld) [Volume fraction] 37.2 % Normal 36.0-48.0 [facility] Comment on above: Performed By: #### B GURPREET, TSH #### [facility] [address] [place] [address] Dr. Reema Mireles Hemoglobin (Bld) [Mass/Vol] 12.8 g/dL Normal 12.0-16.0 [facility] Comment on above: Performed By: #### B GURPREET, TSH #### [facility] [address] [place] [address] Dr. Reema Mireles IG # 0.02 10e3/ul Normal 0.00-0.03 [facility] Comment on above: Performed By: #### B GURPREET, TSH #### [facility] [address] [place] [address] Dr. Reema Mireles IG % 0.2 % Normal 0.0-0.5 [facility] Comment on above: Performed By: #### B GURPREET, TSH #### [facility] [address] [place] [address] Dr. Reema Mireles LYMPH # 1.8 103/ul Normal 1.2-3.8 [facility] Comment on above: Performed By: #### B GURPREET, TSH #### [facility] [address] [place] [address] Dr. Reema Mireles Lymphocytes/100 WBC (Bld) 19.0 % Critically low 20.5-60.0 [facility] Comment on above: Performed By: #### B GURPREET, TSH #### [facility] [address] [place] [address] Dr. Reema Mireles MANUAL DIFF REQ NO Normal [facility] Comment on above: Performed By: #### B GURPREET, TSH #### [facility] [address] [place] [address] Dr. Reema Mireles MCH (RBC) [Entitic mass] 30.4 pg Normal 26.7-34.0 [facility] Comment on above: Performed By: #### B GURPREET, TSH #### [facility] [address] [place] [address] Dr. Reema Mireles MCHC (RBC) [Mass/Vol] 34.4 g/dL Normal 29.9-35.2 [facility] Comment on above: Performed By: #### B GURPREET, TSH #### [facility] [address] [place] [address] Dr. Reema Mireles MCV (RBC) [Entitic vol] 88.4 fL Normal 81.0-99.0 [facility] Comment on above: Performed By: #### B GURPREET, TSH #### [facility] [address] [place] [address] Dr. Reema Mireles MONO # 0.7 103/ul Normal 0.3-0.8 [facility] Comment on above: Performed By: #### B GURPREET, TSH #### [facility] [address] [place] [address] Dr. Reema Mireles Monocytes/100 WBC (Bld) 6.8 % Normal 1.7-12.0 [facility] Comment on above: Performed By: #### B GURPREET, TSH #### [facility] [address] [place], [place] [address] Dr. Reema Mireles NEUT # 7.0 103/ul Critically high 1.4-6.5 [facility] Comment on above: Performed By: #### B GURPREET, TSH #### [facility] [address] [place] [address] Dr. Reema Mireles Neutrophils/100 WBC (Bld) 72.5 % Normal 43.0-75.0 [facility] Comment on above: Performed By: #### B GURPREET, TSH #### [facility] [address] [place] [address] Dr. Reema Mireles Platelet mean volume (Bld) [Entitic vol] 10.3 fL Normal 9.5-13.5 [facility] Comment on above: Performed By: #### B GURPREET, TSH #### [facility] [address] [place] [address] Dr. Reema Mireles PLT 358 103/ul Normal 150-450 [facility] Comment on above: Performed By: #### B GURPREET, TSH #### [facility] [address] [place] [address] Dr. Reema Mireles RBC 4.21 106/ul Normal 4.20-5.40 [facility] Comment on above: Performed By: #### B GURPREET, TSH #### [facility] [address] [place] [address] Dr. Reema Mireles WBC 9.7 103/ul Normal 4.0-11.0 [facility] Comment on above: Performed By: #### B GURPREET, TSH #### [facility] [address] [place] [address] Dr. Reema Mireles CULTURE BLOODon 04-09-2022 Microscopic examination of blood, culture Culture Observations: NO GROWTH AT 5 DAYS. Normal [facility] Comment on above: Performed By: #### B GURPREET, TSH #### [facility] [address] [place] [address] Dr. Reema Mireles ER URINE PROFILEon 2 Bilirubin Ql (U) Negative Normal NEGATIVE [facility] Comment on above: Performed By: #### B GURPREET, TSH #### [facility] [address] [place] [address] Dr. Reema Mireles Clarity (U) CLEAR Normal CLEAR [facility] Comment on above: Performed By: #### B MP, TSH #### [facility] [address] [place] [address] Dr. Reema Mireles Color (U) LT. YELLOW Normal YELLOW [facility] Comment on above: Performed By: #### B MP, TSH #### [facility] [address] [place] [address] Dr. Reema Mireles ERUAHJohana A micrscopic examination will be performed if indicated. Normal [facility] Comment on above: Performed By: #### B MP, TSH #### [facility] [address] [place] [address] Dr. Reema Mireles Glucose Ql (U) Negative Normal NEGATIVE [facility] Comment on above: Performed By: #### B MP, TSH #### [facility] [address] [place] [address] Dr. Reema Mireles Hemoglobin Ql (U) TRACE-INTACT Abnormal NEGATIVE [facility] Comment on above: Performed By: #### B MP, TSH #### [facility] [address] [place] [address] Dr. Reema Mireles Ketones Ql (U) Negative Normal NEGATIVE [facility] Comment on above: Performed By: #### B MP, TSH #### [facility] [address] [place] [address] Dr. Reema Mireles LEUKOCYTES Negative Normal NEGATIVE [facility] Comment on above: Performed By: #### B MP, TSH #### [facility] [address] [place] [address] Dr. Reema Mireles Nitrite Ql (U) Negative Normal NEGATIVE [facility] Comment on above: Performed By: #### B MP, TSH #### [facility] [address] [place] [address] Dr. Reema Mireles pH (U) 5.5 [pH] Normal 5-9 [facility] Comment on above: Performed By: #### B MP, TSH #### [facility] [address] [place] [address] Dr. Reema Mireles SPEC GRAVITY <=1.005 Abnormal 1.005-<=1.025 [facility] Comment on above: Performed By: #### B MP, TSH #### [facility] [address] [place] [address] Dr. Reema Mireles UA PROTEIN Negative Normal NEGATIVE/ TRACE [facility] Comment on above: Performed By: #### B MP, TSH #### [facility] [address] [place] [address] Dr. Reema Mireles UR MICRO IND INDICATED Normal [facility] Comment on above: Performed By: #### B MP, TSH #### [facility] [address] [place] [address] Dr. Reema Mireles Urobilinogen Qn (U) 0.2 {Renny'U}/dL Normal 0.2 - 1. 0 [facility] Comment on above: Performed By: #### B GURPREET, TSH #### [facility] [address] [place] [address] Dr. Reema Mireles LACTATE/LACTIC ACIDon 2021 Lactate [Moles/Vol] 2.2 mmol/L Critically high 0.4-1.9 [facility] Comment on above: Performed By: #### B MP, TSH #### [facility] [address] [place] [address] Dr. Reema Mireles URon 04-09-2022 , QUAL Negative Normal NEGATIVE [facility] Comment on above: Performed By: #### B MP, TSH #### [facility] [address] [place] [address] Dr. Reema Mireles PROF 14(COMP METB)on 022 Albumin [Mass/Vol] 4.5 g/dL Normal 3.4-5.0 [facility] Comment on above: Performed By: #### C MP #### [facility] [address] [place] [address] Dr. Reema Mireles Albumin/Globulin [Mass ratio] 1.3 {ratio} Normal [facility] Comment on above: Performed By: #### C MP #### [facility] [address] [address] [address] Reema Mireles ALP [Catalytic activity/Vol] 83 U/L Normal 46-116 [facility] Comment on above: Performed By: #### C MP #### [facility] [address] [place] [address] Dr. Reema Mireles ALT [Catalytic activity/Vol] 26 U/L Normal 14-59 [facility] Comment on above: Performed By: #### C MP #### [facility] [address] [address] [address] Reema iMreles Anion gap [Moles/Vol] 14.9 mmol/L Normal [facility] Comment on above: Performed By: #### C MP #### [facility] [address] [place] [address] Dr. Reema Mireles AST [Catalytic activity/Vol] 12 U/L Critically low 15-37 [facility] Comment on above: Performed By: #### C MP #### [facility] [address] [place] [address] Dr. Reema Mireles Bilirubin [Mass/Vol] 0.3 mg/dL Normal 0.2-1.0 [facility] Comment on above: Performed By: #### C MP #### [facility] [address] [place] [address] Dr. Reema Mireles Calcium [Mass/Vol] 9.6 mg/dL Normal 8.5-10.1 [facility] Comment on above: Performed By: #### C MP #### [facility] [address] [place] [address] Dr. Reema Mireles Chloride [Moles/Vol] 103 mmol/L Normal 98-107 [facility] Comment on above: Performed By: #### C MP #### [facility] [address] [place] [address] Dr. Reema Mireles CO2 [Moles/Vol] 24.4 mmol/L Normal 21.0-32.0 [facility] Comment on above: Performed By: #### C MP #### [facility] [address] [place] [address] Dr. Reema Mireles Creatinine [Mass/Vol] 0.87 mg/dL Normal 0.55-1.02 [facility] Comment on above: Performed By: #### C MP #### [facility] [address] [address] [address] Reema Mireles EGFR-AF [place] >60 Normal >=60 [facility] Comment on above: Performed By: #### C MP #### [facility] [address] [address] [address] Reema Mireles EGFR-NON AF [place] >60 Normal >=60 [facility] Comment on above: Performed By: #### C MP #### [facility] [address] [address] [address] Reema Mireles Globulin (S) [Mass/Vol] 3.5 g/dL Normal [facility] Comment on above: Performed By: #### C MP #### [facility] [address] [address] [address] Reema Mireles Glucose [Mass/Vol] 109 mg/dL Critically high 74-106 [facility] Comment on above: Performed By: #### C MP #### [facility] [address] [address] [address] Reema Mireles Potassium [Moles/Vol] 3.3 mmol/L Critically low 3.5-5.1 [facility] Comment on above: Performed By: #### C MP #### [facility] [address] [address] [address] Reema Mireles Protein [Mass/Vol] 8.0 g/dL Normal 6.4-8.2 [facility] Comment on above: Performed By: #### C MP #### [facility] [address] [address] [address] Reema Mireles Sodium [Moles/Vol] 139 mmol/L Normal 136-145 [facility] Comment on above: Performed By: #### C MP #### [facility] [address] [address] [address] Reema Mireles Urea nitrogen [Mass/Vol] 9.0 mg/dL Normal 7.0-18.0 [facility] Comment on above: Performed By: #### C MP #### [facility] [address] [place] [address] Dr. Reema Mireles Urea nitrogen/Creatinine [Mass ratio] 10.3 mg/mg Normal [facility] Comment on above: Performed By: #### C MP #### [facility] [address] [place] [address] Dr. Reema Mireles URINE MICROSCOPIC ONLYon BACTERIA NONE SEEN Normal NONE SEEN [facility] Comment on above: Performed By: #### B MP, TSH #### [facility] [address] [place] [address] Dr. Reema Mireles Bacteria identified Cx Nom (U) NOT INDICATED Normal [facility] Comment on above: Performed By: #### B MP, TSH #### [facility] [address] [place] [address] Dr. Reema Mireles CAST NONE SEEN Normal NONE SEEN [facility] Comment on above: Performed By: #### B MP, TSH #### [facility] [address] [place] [address] Dr. Reema Mireles Crystals LM Nom (Urine sed) NONE SEEN Normal NONE SEEN [facility] Comment on above: Performed By: #### B MP, TSH #### [facility] [address] [place] [address] Dr. Reema Mireles Epithelial cells LM Ql (Urine sed) RARE Normal NONE SEEN /RARE [facility] Comment on above: Performed By: #### B MP, TSH #### [facility] [address] [place] [address] Dr. Reema Mireles MUCOUS NONE SEEN Normal NONE SEEN [facility] Comment on above: Performed By: #### B MP, TSH #### [facility] [address] [place] [address] Dr. Reema Mireles RBC 0-2 Normal 0-2 [facility] Comment on above: Performed By: #### B MP, TSH #### [facility] [address] [place] [address] Dr. Reema Mireles WBC NONE SEEN Normal NONE SEEN [facility] Comment on above: Performed By: #### B MP, TSH #### [facility] [address] [address] [address] Reema Mireles CBC AUTO DIFFon 10-25-2021 BASO # 0.0 103/ul Normal 0.0-0.1 [facility] Comment on above: Performed By: #### C BC #### [facility] [address] [address] [address] Reema Mireles Basophils/100 WBC (Bld) 0.6 % Normal 0.2-2.0 [facility] Comment on above: Performed By: #### C BC #### [facility] [address] [place] [address] Dr. Reema Mireles EO # 0.1 103/ul Normal 0.0-0.7 [facility] Comment on above: Performed By: #### C BC #### [facility] [address] [place] [address] Dr. Reema Mireles Eosinophils/100 WBC (Bld) 1.8 % Normal 0.9-7.0 [facility] Comment on above: Performed By: #### C BC #### [facility] [address] [place] [address] Dr. Reema Mireles Erythrocyte distribution width (RBC) [Ratio] 11.9 % Normal 11.0-15.0 [facility] Comment on above: Performed By: #### C BC #### [facility] [address] [place] [address] Dr. Reema Mireles Hematocrit (Bld) [Volume fraction] 38.1 % Normal 36.0-48.0 [facility] Comment on above: Performed By: #### C BC #### [facility] [address] [place] [address] Dr. Reema Mireles Hemoglobin (Bld) [Mass/Vol] 13.1 g/dL Normal 12.0-16.0 [facility] Comment on above: Performed By: #### C BC #### [facility] [address] [place] [address] Dr. Reema Mireles IG # 0.01 10e3/ul Normal 0.00-0.03 [facility] Comment on above: Performed By: #### C BC #### [facility] [address] [place] [address] Dr. Reema Mireles IG % 0.1 % Normal 0.0-0.5 [facility] Comment on above: Performed By: #### C BC #### [facility] [address] [place] [address] Dr. Reema Mireles LYMPH # 1.9 103/ul Normal 1.2-3.8 [facility] Comment on above: Performed By: #### C BC #### [facility] [address] [place] [address] Dr. Reema Mireles Lymphocytes/100 WBC (Bld) 27.8 % Normal 20.5-60.0 [facility] Comment on above: Performed By: #### C BC #### [facility] [address] [place] [address] Dr. Reema Mireles MANUAL DIFF REQ NO Normal [facility] Comment on above: Performed By: #### C BC #### [facility] [address] [place] [address] Dr. Reema Mireles MCH (RBC) [Entitic mass] 30.5 pg Normal 26.7-34.0 [facility] Comment on above: Performed By: #### C BC #### [facility] [address] [place] [address] Dr. Reema Mireles MCHC (RBC) [Mass/Vol] 34.4 g/dL Normal 29.9-35.2 [facility] Comment on above: Performed By: #### C BC #### [facility] [address] [place] [address] Dr. Reema Mireles MCV (RBC) [Entitic vol] 88.8 fL Normal 81.0-99.0 [facility] Comment on above: Performed By: #### C BC #### [facility] [address] [place] [address] Dr. Reema Mireles MONO # 0.8 103/ul Normal 0.3-0.8 [facility] Comment on above: Performed By: #### C BC #### [facility] [address] [place] [address] Dr. Reema Mireles Monocytes/100 WBC (Bld) 11.2 % Normal 1.7-12.0 [facility] Comment on above: Performed By: #### C BC #### [facility] [address] [place] [address] Dr. Reema Mireles NEUT # 4.0 103/ul Normal 1.4-6.5 [facility] Comment on above: Performed By: #### C BC #### [facility] [address] [place] [address] Dr. Reema Mireles Neutrophils/100 WBC (Bld) 58.5 % Normal 43.0-75.0 [facility] Comment on above: Performed By: #### C BC #### [facility] [address] [place] [address] Dr. Reema Mireles Platelet mean volume (Bld) [Entitic vol] 10.0 fL Normal 9.5-13.5 [facility] Comment on above: Performed By: #### C BC #### [facility] [address] [place] [address] Dr. Reema Mireles PLT 361 103/ul Normal 150-450 [facility] Comment on above: Performed By: #### C BC #### [facility] [address] [place] [address] Dr. Reema Mireles RBC 4.29 106/ul Normal 4.20-5.40 [facility] Comment on above: Performed By: #### C BC #### [facility] [address] [place] [address] Dr. Reema Mireles WBC 6.8 103/ul Normal 4.0-11.0 [facility] Comment on above: Performed By: #### C BC #### [facility] [address] [place] [address] Dr. Reema Mireles PREG QUANT HCGon 10-25-2021 HCG QUANT 1 mIU/mL Normal [facility] Comment on above: Performed By: #### P REGQNT #### [facility] [address] [place] [address] Dr. Reema Mireles HCG RANGE SEE BELOW Normal [facility] Comment on above: Result Comment: 5-50 0-1 WEEK 40-300 1-2 WEEKS 100-1,000 2-3 WEEKS 500-6,000 3-4 WEEKS 5,000-200,000 1-2 MONTHS 10,000-100,000 2-3 MONTHS 3,000-50,000 2ND TRIMESTER 1,000-50,000 3RD TRIMESTER Performed By: #### P REGQNT #### [facility] [address] [place] [address] Dr. Reema Mireles Covid-19 PCR ([facility])on 09-29 SARS-CoV-2 (COVID-19) RNA FRANKIE+probe Ql (Unsp spec) Not detected Normal NOT DETECTED [facility] Comment on above: Result Comment: This test is not yet approved or cleared by the [place] FDA. When there are no FDA-approved or cleared tests available, and other criteria are met, FDA can make tests available under an emergency access mechanism called an Emergency Use Authorization (EUA). The EUA for this test is supported by the [employer] of Health and Human Service's (HHS's) declaration [...] SARS-CoV-2. Performed By: #### C VDTBH #### [facility] [address] [place], [place] [id number] Dr. Reema Mireles Vital Signs Date Time Vital Sign Value Performing Clinician Facility 06-20-2025 09:23-0400 Body mass index (BMI) [Ratio] 36.15 kg/m2 Devyn OmerVerbalizeIt Phone: [facility] 06-20-2025 09:23-0400 Body weight 98.54 kg Devyn Omer DO Work Phone: [facility] 06-20-2025 09:23-0400 Diastolic blood pressure 70 mm[Hg] Devyn Omer DO Work Phone: [facility] 06-20-2025 09:23-0400 Systolic blood pressure 112 mm[Hg] Devyn Omer DO Work Phone: [facility] 06-06-2025 10:24-0400 Body mass index (BMI) [Ratio] 35.53 kg/m2 Devyn Omer DO Work Phone: [facility] 06-06-2025 10:24-0400 Body weight 96.84 kg Devyn Omer DO Work Phone: [facility] 06-06-2025 10:24-0400 Diastolic blood pressure 82 mm[Hg] Devyn Omer DO Work Phone: [facility] 06-06-2025 10:24-0400 Systolic blood pressure 112 mm[Hg] Devyn Omer DO Work Phone: [facility] 05-16-2025 09:38-0400 Body mass index (BMI) [Ratio] 34.28 kg/m2 Cydney FARR Work Phone: [facility] 05-16-2025 09:38-0400 Body weight 93.44 kg Cydney FARR Work Phone: [facility] 05-16-2025 09:38-0400 Diastolic blood pressure 76 mm[Hg] Cydney FARR Work Phone: [facility] 05-16-2025 09:38-0400 Systolic blood pressure 110 mm[Hg] Cydney FARR Work Phone: [facility] 04-18-2025 09:14-0400 Body mass index (BMI) [Ratio] 32.64 kg/m2 Devyn Omer DO Work Phone: [facility] 04-18-2025 09:14-0400 Body weight 88.96 kg Devyn Omer DO Work Phone: [facility] 04-18-2025 09:14-0400 Diastolic blood pressure 78 mm[Hg] Devyn Omer DO Work Phone: [facility] 04-18-2025 09:14-0400 Systolic blood pressure 110 mm[Hg] Devyn Omer DO Work Phone: [facility] 03-20-2025 10:21-0400 Body mass index (BMI) [Ratio] 32.02 kg/m2 Devyn Omer DO Work Phone: [facility] 03-20-2025 10:21-0400 Body weight 87.27 kg Devyn Omer DO Work Phone: [facility] 03-20-2025 10:21-0400 Diastolic blood pressure 70 mm[Hg] Devyn Omer DO Work Phone: [facility] 03-20-2025 10:21-0400 Systolic blood pressure 120 mm[Hg] Devyn Omer DO Work Phone: [facility] 01-20-2025 09:43-0400 Body mass index (BMI) [Ratio] 31.95 kg/m2 [facility] 01-20-2025 09:43-0400 Body weight 87.09 kg [facility] Nurse [facility] 01-20-2025 09:43-0400 Diastolic blood pressure 76 mm[Hg] [facility] 01-20-2025 09:43-0400 Systolic blood pressure 112 mm[Hg] [facility] 12-06-2024 11:23-0400 Body mass index (BMI) [Ratio] 32.12 kg/m2 Cydney FARR Work Phone: [facility] 12-06-2024 11:23-0400 Body weight 87.54 kg Cydney FARR Work Phone: [facility] 12-06-2024 11:23-0400 Diastolic blood pressure 78 mm[Hg] Cydney FARR Work Phone: [facility] 12-06-2024 11:23-0400 Systolic blood pressure 112 mm[Hg] Cydney FARR Work Phone: [facility] 11-01-2024 10:12-0500 Body mass index (BMI) [Ratio] 32.64 kg/m2 Devyn Omer DO Work Phone: [facility] 11-01-2024 10:12-0500 Body weight 88.96 kg Devyn Omer DO Work Phone: [facility] 11-01-2024 10:12-0500 Diastolic blood pressure 82 mm[Hg] Devyn Omer DO Work Phone: [facility] 11-01-2024 10:12-0500 Systolic blood pressure 110 mm[Hg] Devyn Omer DO Work Phone: [facility] 08-29-2024 10:58-0500 Body mass index (BMI) [Ratio] 34.61 kg/m2 Devyn Omer DO Work Phone: [facility] 08-29-2024 10:58-0500 Body weight 94.35 kg Devyn Omer DO Work Phone: [facility] 08-29-2024 10:58-0500 Diastolic blood pressure 70 mm[Hg] Devyn Omer DO Work Phone: [facility] 08-29-2024 10:58-0500 Systolic blood pressure 110 mm[Hg] Devyn Omer DO Work Phone: [facility] 11-12-2023 14:15-0500 Body weight 108.86 kg Devyn Omer DO Work Phone: [facility] 11-12-2023 14:15-0500 Diastolic blood pressure 72 mm[Hg] Devyn Omer DO Work Phone: [facility] 11-12-2023 14:15-0500 Systolic blood pressure 122 mm[Hg] Devyn Omer DO Work Phone: [facility] 04-12-2022 21:04-0400 Diastolic blood pressure 84 mm[Hg] [facility] 04-12-2022 21:04-0400 Heart rate 82 /min [facility] 04-12-2022 21:04-0400 Respiratory rate 16 /min [facility] 04-12-2022 21:04-0400 SaO2% (BldA) [Mass fraction] 98 % [facility] 04-12-2022 21:04-0400 Systolic blood pressure 120 mm[Hg] [facility] 04-12-2022 20:32-0400 gluc 80 mg/dL [facility] Comment on above: Result Comment: not taken due to pt refu jimmie of any injection 04-12-2022 20:32-0400 gluc [facility] 04-12-2022 19:25-0400 Body temperature 99.32 [degF] [facility] 04-12-2022 19:25-0400 Diastolic blood pressure 84 mm[Hg] [facility] 04-12-2022 19:25-0400 Heart rate 90 /min [facility] 04-12-2022 19:25-0400 Respiratory rate 18 /min [facility] 04-12-2022 19:25-0400 SaO2% (BldA) [Mass fraction] 98 % [facility] 04-12-2022 19:25-0400 Systolic blood pressure 118 mm[Hg] [facility] 04-09-2022 12:20-0400 Body height 165.1 cm Deonna Back Other [facility] Other 04-09-2022 12:20-0400 Body mass index (BMI) [Ratio] 35.61 kg/m2 Deonna Back Other [facility] Other 04-09-2022 12:20-0400 Body temperature 98.4 [degF] Deonna Nazanin Other [facility] Other 04-09-2022 12:20-0400 Body weight 97.07 kg Deonna Nazanin Other [facility] Other 04-09-2022 12:20-0400 Diastolic blood pressure 83 mm[Hg] Deonna Nazanin Other [facility] Other 04-09-2022 12:20-0400 Respiratory rate 18 /min Deonna Nazanin Other [facility] Other 04-09-2022 12:20-0400 SaO2% (BldA) [Mass fraction] 99 % Deonna Cavanaughmond Other [facility] Other 04-09-2022 12:20-0400 Systolic blood pressure 135 mm[Hg] Deonna Nazanin Other [facility] Other 04-02-2022 19:00-0400 Body height 165.1 cm Deonna Cavanaughmond Other [facility] Other 04-02-2022 19:00-0400 Body mass index (BMI) [Ratio] 35.71 kg/m2 Deonna Nazanin Other [facility] Other 04-02-2022 19:00-0400 Body temperature 98.1 [degF] Deonna Nazanin Other [facility] Other 04-02-2022 19:00-0400 Body weight 97.34 kg Deonna Nazanin Other [facility] Other 04-02-2022 19:00-0400 Diastolic blood pressure 83 mm[Hg] Deonna Back Other [facility] Other 04-02-2022 19:00-0400 Respiratory rate 18 /min Deonna Back Other [facility] Other 04-02-2022 19:00-0400 SaO2% (BldA) [Mass fraction] 100 % Deonna Back Other [facility] Other 04-02-2022 19:00-0400 Systolic blood pressure 134 mm[Hg] Deonna Back Other [facility] Other Encounters Encounter Date Encounter Type Care Provider Facility Start: 06-20-2025 End: 06-20-2025 Office outpatient visit 15 minutes Devyn Omer DO Work Phone: [facility] Comment on above: Third trimester preg padmini ([facility] 30 weeks gestation of ([facility]) Start: 06-20-2025 End: 06-20-2025 ambulatory DEVYN OMER Not Available Start: 06-06-2025 End: 06-06-2025 Bamboo flowsheet Devyn Omer DO Work Phone: [facility] Start: 06-06-2025 End: 06-06-2025 Bamboo flowsheet Devyn Omer DO Work Phone: [facility] Start: 06-06-2025 End: 06-06-2025 Office outpatient visit 15 minutes Devyn Omer DO Work Phone: [facility] Comment on above: Third trimester preg padmini ([facility] 28 weeks gestation of ([facility]); size inconsistent with dates ([facility]) Start: 06-06-2025 End: 06-06-2025 ambulatory DEVYN OMER Not Available Start: 05-26-2025 End: 05-26-2025 Clinisync Result Encounter Cydney FARR Work Phone: [facility] Unsolicited Start: 05-26-2025 End: 05-26-2025 Clinisync Result Encounter Cydney FARR Work Phone: [facility] Unsolicited Start: 05-16-2025 End: 05-16-2025 Bamboo flowsheet Cydney FARR Work Phone: [facility] Start: 05-16-2025 End: 05-16-2025 Bamboo flowsheet Cydney FARR Work Phone: [facility] Start: 05-16-2025 End: 05-16-2025 ambulatory CYDNEY LEOS Not Available Start: 05-16-2025 End: 05-16-2025 Office outpatient visit 15 minutes Cydney FARR Work Phone: [facility] Comment on above: 24 weeks gestation o f ([facility]); Second trimester ([facility]); Subchorionic hemorrhage of placenta, antepartum [facility] [facility] Diabetes mellitus screening Start: 04-18-2025 End: 04-18-2025 Office outpatient visit 15 minutes Devyn Omer DO Work Phone: [facility] Comment on above: Second trimester pre gnancy ([facility]); 21 weeks gestation of ([facility]) Start: 04-18-2025 End: 04-18-2025 ambulatory DEVYN OMRE Not Available Start: 04-18-2025 End: 04-18-2025 ambulatory DEVYN OMER Not Available Start: 03-20-2025 End: 03-20-2025 Bamboo flowsheet Devyn Omer DO Work Phone: [facility] Start: 03-20-2025 End: 03-20-2025 Bamboo flowsheet Devyn Omer DO Work Phone: [facility] Start: 03-20-2025 End: 03-20-2025 Office outpatient visit 15 minutes Devyn Omer DO Work Phone: [facility] Comment on above: 17 weeks gestation o f ([facility]); Second trimester ([facility]); Screening, , for anatomic survey ([facility]); Exposure to STD; Vaginal discharge Start: 03-20-2025 End: 03-20-2025 ambulatory DEVYN OMER Not Available Start: 02-27-2025 End: 02-27-2025 ambulatory DEVYN OMER Not Available Start: 02-16-2025 End: 02-16-2025 ambulatory DEVYN OMER Not Available Start: 02-07-2025 End: 02-07-2025 Telephone encounter Devyn Omer DO Work Phone: [facility] Start: 01-30-2025 End: 01-30-2025 Clinisync Result Encounter Devyn Omer DO Work Phone: [facility] Unsolicited Start: 01-30-2025 End: 01-30-2025 Clinisync Result Encounter Devyn Omer DO Work Phone: [facility] Unsolicited Start: 01-20-2025 End: 01-20-2025 Office outpatient visit 5 minutes [facility] Nurse [facility] Comment on above: GA: 9w0d Start: 01-20-2025 End: 01-20-2025 ambulatory DEVYN OMER Not Available Start: 12-06-2024 End: 12-06-2024 Office outpatient visit 15 minutes Cydney FARR Work Phone: [facility] Comment on above: Exposure to STD Start: 12-06-2024 End: 12-06-2024 ambulatory CYDNEY LEOS Not Available Start: 11-01-2024 End: 11-01-2024 Bamboo flowsheet Devyn Omer DO Work Phone: [facility] Start: 11-01-2024 End: 11-01-2024 Bamboo flowsheet Devyn Omer DO Work Phone: [facility] Start: 11-01-2024 End: 11-01-2024 Office outpatient visit 15 minutes Devyn Omer DO Work Phone: [facility] Comment on above: Post depressi on (CMS/HCC) Start: 11-01-2024 End: 11-01-2024 ambulatory DEVYN OMER Not Available Start: 08-29-2024 End: 08-29-2024 Bamboo flowsheet Devyn Omer DO Work Phone: [facility] Start: 08-29-2024 End: 09-04-2024 Bamboo flowsheet Devyn Omer DO Work Phone: [facility] Start: 08-29-2024 End: 09-04-2024 Clinisync Result Encounter Devyn Omer DO Work Phone: [facility] Unsolicited Start: 08-29-2024 End: 08-29-2024 Patient encounter procedure Devyn Omer DO Work Phone: [facility] Work Phone: Start: 08-29-2024 End: 08-29-2024 Periodic preventive med est patient 18-39 yrs Devyn Omer DO Work Phone: [facility] Comment on above: Well woman exam with routine gynecological exam; UTI symptoms; Missed menses Start: 08-29-2024 End: 08-29-2024 ambulatory DEVYN OMER Not Available Start: 06-13-2024 End: 06-13-2024 Bamboo flowsheet Devyn Omer DO Work Phone: [facility] Start: 06-13-2024 End: 06-13-2024 Bamboo flowsheet Devyn Omer DO Work Phone: [facility] Start: 06-13-2024 End: 06-13-2024 Phys/qhp telephone evaluation 5-10 min Devyn Omer DO Work Phone: [facility] Comment on above: Post depressi on (CMS/HCC) (Primary Dx) Start: 11-12-2023 End: 11-12-2023 Office outpatient visit 15 minutes Devyn Tello DO Work Phone: [facility] Comment on above: Third trimester preg padmini; Excessive growth affecting management of in third trimester, single or unspecified fetus Start: 11-03-2023 Clinisync Result Encounter Cydnye Leos CHIKA Work Phone: [facility] Unsolicited Start: 11-03-2023 Clinisync Result Encounter Cydney Hernandezdaksha FARR Work Phone: [facility] Unsolicited Start: 09-14-2022 End: 09-14-[address] LUIS ANTONIO SUTTON Facility:[facility] Start: 08-11-2022 End: 08-12-[address] LUIS ANTONIO SUTTON Facility:[facility] Start: 08-09-2022 End: 08-09-[address] ADRYAN MAIRE Facility:[facility] Start: 08-08-2022 End: 08-08-[address] LUIS ANTONIO SUTTON Facility:[facility] Start: 04-16-2022 End: 04-16-[address] ADRYAN MARIE Facility:[facility] Start: 04-15-2022 End: 04-15-[address] ADRYAN MARIE Facility:[facility] Start: 04-13-2022 End: 04-13-[address] ADRYAN MARIE Facility:[facility] Start: 04-12-2022 End: 04-12-2022 Emergency department patient visit Lata Baxter [facility] Start: 04-10-2022 End: 04-10-2022 ambulatory Deonna Back Other [facility] Other Start: 04-10-2022 Telephone encounter Deonna [facility] Start: 04-09-2022 End: 04-09-2022 ambulatory Deonna Back Other [facility] Other Start: 04-09-2022 Office outpatient vi sit 15 minutes Deonna Back [facility] Start: 04-09-2022 End: 04-09-[address] LUIS ANTONIO USTTON Facility:[facility] Start: 04-02-2022 (URG) Urgent Care Visit Deonna Cavanaughfrancine pace [facility] Start: 04-02-2022 End: 04-02-2022 ambulatory Deonna Back Other [facility] Other Start: 10-25-2021 End: 10-25-[address] ADRYAN MARIE Facility:[facility] Start: 10-24-2021 Encounter for preprocedural laboratory examination DR DEVYN TELLO [facility] Start: 10-22-2021 End: 10-23-[address] ADRYAN MARIE Facility:[facility] Start: 10-22-2021 End: 10-23-2021 Encounter for preprocedural laboratory examination DR ADRYAN MARIE Facility:[facility] Start: 10-19-2021 Encounter for other preprocedural examination DR DEVYN TELLO [facility] Start: 10-17-2021 End: 10-18-[address] ADRYAN MARIE Facility:[facility] Start: 10-17-2021 End: 10-18-2021 Encounter for other preprocedural examination DR ADRYAN MARIE Facility:[facility] Procedures Date Procedure Procedure Detail Performing Clinician Start: 06-20-2025 Urnls dip stick/tabl et rgnt non-auto w/o micrscp Devyn Omer DO Work Phone: Start: 06-06-2025 Urnls dip stick/tabl et rgnt non-auto w/o micrscp Devyn Omer DO Work Phone: Start: 05-26-2025 GLUCOSE 1 HOUR Cydney Lancaster Work Phone: Start: 05-16-2025 Urnls dip stick/tabl et rgnt non-auto w/o micrscp Cydney FARR Work Phone: Start: 04-18-2025 Urnls dip stick/tabl et rgnt non-auto w/o micrscp Devyn Omer DO Work Phone: Start: 03-20-2025 Urnls dip stick/tabl et rgnt non-auto w/o micrscp Devyn Omer DO Work Phone: Start: 01-30-2025 BOX TEST Devyn Fazi o DO Work Phone: Start: 01-20-2025 End: 01-20-2025 Urnls dip stick/tablet rgnt non-auto w/o micrscp Devyn Omer DO Work Phone: Start: 12-06-2024 Urine test visual color cmprsn meths Cydney FARR Work Phone: Start: 08-29-2024 End: 08-29-2024 Urnls dip stick/tablet rgnt non-auto w/o micrscp Devyn Omer DO Work Phone: Start: 08-29-2024 IGP,APTIMA HPV,AGE GDLN Devyn Omer DO Work Phone: Start: 11-12-2023 Urnls dip stick/tabl et rgnt non-auto w/o micrscp Devyn Omer DO Work Phone: Start: 11-03-2023 ALL CBC WITH AUTO DIFF Cydney FARR Work Phone: Plan of Treatment Date Care Activity Detail Author Start: 09-07-2025 End: 09-07-2025 Patient encounter procedure [facility] Start: 07-18-2025 End: 07-18-2025 Patient encounter procedure 07/18/2025 9:00 AM EDT Routine [facility] [address] [place] [address] Devyn Tello, DO [address] [place] [address] [facility] Start: 07-05-2025 End: 07-05-2025 Patient encounter procedure 07/05/2025 9:20 AM EDT Routine [facility] [address] [place] [address] Nichole Stallings, [employer] [address] [facility] [place] [phone] [facility] Start: 06-06-2025 End: 10-06-2025 US for US OB follow up transabdominal approach Imaging Routine size inconsistent with dates ([facility]) Expected: 06/06/2025, Expires: 10/06/2025 [facility] Work Phone: Comment on above: Expected: 06/06/2025 , Expires: 10/06/2025 Start: 06-06-2025 End: 06-06-2025 Patient encounter procedure [facility] Comment on above: Arrived Start: 05-29-2025 Influenza vaccination N [facility] Start: 05-16-2025 End: 05-16-2026 CBC panel - Blood by Automated count CBC Lab Routine Diabetes mellitus screening Expected: 05/16/2025 (Approximate), Expires: 05/16/2026 [facility] Work Phone: Comment on above: Expected: 05/16/2025 (Approximate), Expires: 05/16/2026 Start: 05-16-2025 End: 05-16-2026 Measurement of glucose 1 hour after glucose challenge for glucose tolerance test Glucose tolerance, 1 hour Lab Routine Diabetes mellitus screening Expected: 05/16/2025 (Approximate), Expires: 05/16/2026 [facility] Comment on above: Expected: 05/16/2025 (Approximate), Expires: 05/16/2026 Start: 05-16-2025 End: 05-16-2025 Patient encounter procedure 05/16/2025 9:20 AM EDT [facility] [address] [place] [address] Cydney Leos PA [address] [facility] [place] [address] [facility] Start: 04-18-2025 End: 04-18-2025 Patient encounter procedure 04/18/2025 9:20 AM EDT Routine [facility] [address] [place] [phone] Devyn Tello, DO [address] [place] [address] [facility] Start: 04-18-2025 End: 04-18-2025 Professional / ancillary services management 04/18/2025 8:00 AM EDT Ancillary Procedure [facility] [address] [place] [phone] [facility] Start: 03-20-2025 End: 04-19-2025 Alpha fetoprotein, maternal Alpha fetoprotein, maternal Lab Routine 17 weeks gestation of ([facility]) Second trimester ([facility]) Expected: 03/20/2025 (Approximate), Expires: 04/19/2025 [facility] Comment on above: Expected: 03/20/2025 (Approximate), Expires: 04/19/2025 Start: 03-20-2025 End: 06-20-2025 US for US OB 14+ weeks anatomy scan Imaging Routine Screening, , for anatomic survey ([facility]) Expected: 03/20/2025, Expires: 06/20/2025 [facility] Comment on above: Expected: 03/20/2025 , Expires: 06/20/2025 Start: 03-20-2025 End: 03-20-2025 Patient encounter procedure 03/20/2025 10:10 AM EDT Routine [facility] [address] [place] [phone] Devyn Tello, DO [address] [place] [address] Arrived [facility] Comment on above: Arrived Start: 02-21-2025 End: 02-21-2025 Patient encounter procedure 02/21/2025 8:50 AM EDT Routine [facility] [address] [place] [phone] Devyn Tello, DO [address] [facility] [address] [place] [address] [facility] Start: 01-20-2025 End: 01-20-2026 ABO/Rh ABO/Rh Lab Routine Missed menses , unspecified gestational age Expected: 01/20/2025 (Approximate), Expires: 01/20/2026 [facility] Comment on above: Expected: 01/20/2025 (Approximate), Expires: 01/20/2026 Start: 01-20-2025 End: 01-20-2026 Blood type and Indirect antibody screen panel - Blood Type and screen Lab Routine Missed menses , unspecified gestational age Expected: 01/20/2025 (Approximate), Expires: 01/20/2026 [facility] Work Phone: Comment on above: Expected: 01/20/2025 (Approximate), Expires: 01/20/2026 Start: 01-20-2025 End: 01-20-2026 Drugs of abuse panel - Urine by Screen method Rapid drug screen, urine Lab Routine , unspecified gestational age Encounter for supervision of normal first in first trimester Expected: 01/20/2025 (Approximate), Expires: 01/20/2026 [facility] Comment on above: Expected: 01/20/2025 (Approximate), Expires: 01/20/2026 Start: 11-01-2024 End: 11-01-2024 Patient encounter procedure 11/01/2024 10:00 AM EST Office Visit [facility] [address] [place] [address] Devyn Tello, DO [address] [facility] [address] [place] [address] Arrived [facility] Comment on above: Arrived Start: 08-29-2024 End: 08-29-2024 Patient encounter procedure [facility] Comment on above: Arrived Start: 05-29-2024 Influenza vaccination Influenza Vacc ine (#1) [facility] Start: 11-26-2023 End: 11-26-2023 Patient encounter procedure 11/26/2023 11:00 AM EST Routine [facility] [address] [place] [phone] Cydney Leos PA [address] [facility] [place], [place] [id number] [facility] Start: 11-26-2023 End: 11-26-2023 Professional / ancillary services management 11/26/2023 10:30 AM EST Ancillary Procedure [facility] [address] [place] [phone] [facility] Start: 11-12-2023 End: 11-12-2024 US for US OB SCAN FOR GROWTH Imaging Routine Excessive growth affecting management of in third trimester, single or unspecified fetus Expected: 11/12/2023 (Approximate), Expires: 11/12/2024 [facility] Work Phone: Comment on above: Expected: 11/12/2023 (Approximate), Expires: 11/12/2024 Start: 11-12-2023 End: 11-12-2023 Patient encounter procedure 11/12/2023 10:50 AM EST Routine [facility] [address] [place] [phone] Devyn Tello DO [address] [facility] [place] [address] [facility] Bacteria identified in Urine by Culture Urine culture Microbiology Routine Missed menses Ordered: 01/20/2025 [facility] Comment on above: Ordered: 01/20/2025 CBC W Auto Different ial panel - Blood CBC and differential Lab Routine Missed menses , unspecified gestational age Ordered: 01/20/2025 [facility] Comment on above: Ordered: 01/20/2025 CHLAMYDIA TRACHOMATI S (GENITO/STI) CHLAMYDIA TRACHOMATIS (GENITO/STI) Lab Routine Exposure to STD Ordered: 12/06/2024 [facility] Comment on above: Ordered: 12/06/2024 CHLAMYDIA TRACHOMATI S (GENITO/STI) CHLAMYDIA TRACHOMATIS (GENITO/STI) Lab Routine Exposure to STD Ordered: 03/20/2025 [facility] Comment on above: Ordered: 03/20/2025 Cytology Cervical or vaginal smear or scraping study Pap Smear Pathology and Cytology Routine Well woman exam with routine gynecological exam Ordered: 08/29/2024 [facility] Work Phone: Comment on above: Ordered: 08/29/2024 Hemoglobin A1c/Hemoglobin.total in Blood Hemoglobin A1c Lab Routine Missed menses , unspecified gestational age Ordered: 01/20/2025 [facility] Comment on above: Ordered: 01/20/2025 Hepatitis B virus surface Ag [Presence] in Serum or Plasma by Immunoassay Hepatitis B surface antigen Lab Routine Missed menses , unspecified gestational age Ordered: 01/20/2025 [facility] Comment on above: Ordered: 01/20/2025 Hepatitis C virus Ab [Presence] in Serum or Plasma by Immunoassay Hepatitis C antibody Lab Routine Missed menses , unspecified gestational age Ordered: 01/20/2025 [facility] Comment on above: Ordered: 01/20/2025 HIV-1/HIV-2 antigen/antibody combination immunoassay HIV-1 and HIV-2 antibodies Lab Routine Missed menses , unspecified gestational age Ordered: 01/20/2025 [facility] Comment on above: Ordered: 01/20/2025 Neisseria gonorrhoea e DNA [Presence] in Unspecified specimen by FRANKIE with probe detection Neisseria gonorrhea DNA probe, direct Lab Routine Exposure to STD Ordered: 12/06/2024 [facility] Comment on above: Ordered: 12/06/2024 Neisseria gonorrhoea e DNA [Presence] in Unspecified specimen by FRANKIE with probe detection Neisseria gonorrhea DNA probe, direct Lab Routine Exposure to STD Ordered: 03/20/2025 [facility] Comment on above: Ordered: 03/20/2025 Reagin Ab [Presence] in Serum by RPR RPR Lab Routine Missed menses , unspecified gestational age Ordered: 01/20/2025 [facility] Comment on above: Ordered: 01/20/2025 Rubella antibody, IgG Rubella an tibody, IgG Lab Routine Missed menses , unspecified gestational age Ordered: 01/20/2025 [facility] Comment on above: Ordered: 01/20/2025 SURESWAB(R) ADVANCED VAGINITIS PLUS, TMA SURESWAB(R) ADVANCED VAGINITIS PLUS, TMA Pathology and Cytology Routine Exposure to STD Ordered: 12/06/2024 [facility] Work Phone: Comment on above: Ordered: 12/06/2024 SURESWAB(R) ADVANCED VAGINITIS PLUS, TMA SURESWAB(R) ADVANCED VAGINITIS PLUS, TMA Pathology and Cytology Routine Vaginal discharge Ordered: 03/20/2025 [facility] Work Phone: Comment on above: Ordered: 03/20/2025 Payers Date Payer Category Payer Medicaid [id number] 2023 Private Health Insurance [employer] [id number] 2023 Medicaid [id number] 2023 Unknown [employer] [place] [place] [employer] [place] [id number] 2023-Present [address] [place] [address] [id number] 2001 Unknown [id number] 2.16.840.1.435408.3.579.2. 593 2001 Unknown [id number] 2.16.840.1.369648.3.579.2. 593 2001 Unknown [id number] 2.16.840.1.948763.3.579.2. 593 2001 Unknown [id number] 2.16.840.1.109955.3.579.2. 593 2001 Unknown [id number] 2.16.840.1.700182.3.579.2. 593 2001 Unknown [id number] 2.16.840.1.622016.3.579.2. 593 2001 Unknown [id number] 2.16.840.1.917639.3.579.2. 593 2001 Unknown [id number] 2.16.840.1.453849.3.579.2. 593 2001 Unknown [id number] 2.16.840.1.594738.3.579.2. 593 2001 Unknown [id number] 2.16.840.1.475685.3.579.2. 593 2001 Unknown [id number] 2.16.840.1.251250.3.579.2. 593 2001 Unknown [id number] 2.16.840.1.651495.3.579.2. 1259 2001 Unknown [id number] 2.16.840.1.231495.3.579.2. 1259 2001 Unknown [id number] 2.16.840.1.409636.3.579.2. 1259 2001 Unknown [id number] 2.16.840.1.128771.3.579.2. 1259 2001 Unknown [id number] 2.16.840.1.689436.3.579.2. 1259 2001 Unknown [id number] 2.16.840.1.519460.3.579.2. 1259 2001 Unknown [id number] 2.16.840.1.324938.3.579.2. 1259 2001 Unknown [id number] 2.16.840.1.889229.3.579.2. 1259 2001 Unknown [id number] 2.16.840.1.433902.3.579.2. 1259 2001 Unknown [id number] 2.16.840.1.099367.3.579.2. 1259 2001 Unknown [id number] 2.16.840.1.699942.3.579.2. 1259 2001 Unknown [id number] 2.16.840.1.072294.3.579.2. 1259 2001 Unknown [id number] 2.16.840.1.187504.3.579.2. 1259 2001 Unknown [id number] 2.16.840.1.046876.3.579.2. 1259 1959 [facility] [id number] 2.16.840.1.817621.19 Social History Date Type Detail Facility Unknown if ever smoked [facility] Other Start: 05-12-2024 End: 08-29-2024 Sex Assigned At [facility] Other Tobacco smoking status No Smoking Status Entered [facility] Start: 06-20-2023 Tobacco smoking status MAIS Tobacco smoking consumption unknown [facility] Start: [...] Assessment Result Facility 04-12-2022 Functional Status N/A [facility] Clinical Notes 10-25-2021 to 06-20-2025 Tricia Laith, BELL - 06/20/2025 9:30 AM Trudy Ozuna LPN - 06/06/2025 10:20 AM CHIKA Hniton - 05/16/2025 9:20 AM Trudy Ozuna, BELL - 04/18/2025 9:20 AM EDT Note Date & Type Note Facility 06-20-2025 History of Presen t illness Narrative Reason for Appointment: Patient ID: Juanpablo Chaparro is a 24 y.o. female who presents for Routine Visit Patient presents today for Return OB appointment. MEDICATIONS Current Outpatient Medications Medication Instructions LL-Xal-IF-Ozone-3 ( GUMMIES/DHA & FA PO) 1 each, Daily ALLERGIES Allergies Allergen Reactions Sulfa Antibiotics Fever, Hives and Rash PROBLEMS Active Ambulatory Problems Diagnosis Date Noted Third trimester ([facility]) 06/20/2025 30 weeks gestation of ([facility]) 06/20/2025 Resolved Ambulatory Problems Diagnosis [...] nursing note reviewed. Exam conducted with a right of way cutter present. Vitals: Estimated body mass index is 36.15 kg/m as calculated from the following: Height as of 03/08/24: 5' 5 . Weight as of this encounter: 217 lb 4 oz. BP: 112/70 Patient's last menstrual period was 11/18/2024 (approximate). ASSESSMENT & PLAN ICD-10-CM 1. Third trimester ([facility]) Z34.93 POCT urinalysis dipstick manually resulted 2. 30 weeks gestation of ([facility]) Z3A.30 POCT urinalysis dipstick manually [...] Devyn Tello DO documented in this encounter [facility] 06-06-2025 History of Presen t illness Narrative Reason for Appointment: Patient ID: Juanpablo Chaparro is a 24 y.o. female who presents for Routine Visit Patient presents today for Return OB appointment. MEDICATIONS Current Outpatient Medications Medication Instructions NR-Xrz-KU-Ozone-3 ( GUMMIES/DHA & FA PO) 1 each, [...] nursing note reviewed. Exam conducted with a right of way cutter present. Vitals: Estimated body mass index is 35.53 kg/m as calculated from the following: Height as of 03/08/24: 5' 5 . Weight as of this encounter: 213 lb 8 oz. BP: 112/82 Patient's last menstrual period was 11/18/2024 (approximate). ASSESSMENT & PLAN ICD-10-CM 1. Third trimester ([facility]) Z34.93 POCT urinalysis dipstick manually resulted 2. 28 weeks gestation of ([facility]) Z3A.28 Return OB: Patient presents today for a routine obstetrics appointment. Patient is currently 28w4d . Patient states she is doing well [...] Devyn Tello DO documented in this encounter [facility] 05-16-2025 History of Presen t illness Narrative Reason for Appointment: Patient ID: Juanpablo Chaparro is a 24 y.o. female who presents for Routine Visit Patient presents today for Return OB appointment. MEDICATIONS Current Outpatient Medications Medication Instructions VX-Jrs-FK-Ozone-3 ( GUMMIES/DHA & FA PO) 1 each, [...] PLAN ICD-10-CM 1. 24 weeks gestation of ([facility]) Z3A.24 POCT urinalysis dipstick manually resulted 2. Second trimester ([facility]) Z34.92 POCT urinalysis dipstick manually resulted 3. Subchorionic hemorrhage of placenta, antepartum ([facility]) O46.8X9 4. Diabetes mellitus screening [...] of: CHIKA Lyman documented in this encounter [facility] 04-18-2025 History of Presen t illness Narrative Reason for Appointment: Patient ID: Juanpablo Chaparro is a 24 y.o. female who presents for Routine Visit Patient presents today for Return OB appointment. MEDICATIONS Current Outpatient Medications Medication Instructions DN-Ajf-RF-Ozone-3 ( GUMMIES/DHA & FA PO) 1 each, [...] nursing note reviewed. Exam conducted with a right of way cutter present. Vitals: Estimated body mass index is 32.64 kg/m as calculated from the following: Height as of 03/08/24: 5' 5 . Weight as of this encounter: 196 lb 1.9 oz. BP: 110/78 Patient's last menstrual period was 11/18/2024 (approximate). ASSESSMENT & PLAN ICD-10-CM 1. Second trimester ([facility]) Z34.92 POCT urinalysis dipstick manually resulted 2. 21 weeks gestation of ([facility]) Z3A.21 POCT urinalysis dipstick manually resulted Patient presents today for a routine obstetrics appointment. Patient is currently 21w4d with a Estimated Date of Delivery: 08/25/25. Pt had anatomy scan prior to appt. Will notify of results. Pt to return in 4 weeks for scheduled ob appt. Documented by Tricia Ozuna LPN on behalf of: Devyn Tello DO documented in this encounter [facility] 03-20-2025 History of Presen t illness Narrative Reason for Appointment: Patient ID: Juanpablo Chaparro is a 24 y.o. female who presents for Routine Visit Patient presents today for Return OB appointment. MEDICATIONS Current Outpatient Medications Medication Instructions QE-Lct-KK-Ozone-3 ( GUMMIES/DHA & FA PO) 1 each, [...] nursing note reviewed. Exam conducted with a right of way cutter present. Vitals: Estimated body mass index is 32.02 kg/m as calculated from the following: Height as of 03/08/24: 5' 5 . Weight as of this encounter: 192 lb 6.4 oz. BP: 120/70 Patient's last menstrual period was 11/18/2024 (approximate). ASSESSMENT & PLAN ICD-10-CM 1. 17 weeks gestation of ([facility]) Z3A.17 POCT urinalysis dipstick manually resulted Alpha fetoprotein, maternal Alpha fetoprotein, maternal 2. Second trimester ([facility]) Z34.92 POCT urinalysis dipstick manually resulted Alpha fetoprotein, maternal Alpha fetoprotein, maternal 3. Screening, , for anatomic survey ([facility]) Z36.89 US OB 14+ weeks [...] by Maryam Saul LPN on behalf of: Devyn Tello DO documented in this encounter [facility] 02-07-2025 Telephone encount er Note Patient called us today and was concerned as she is in early stages of , and she is having stomach cramping all across her abdomen. Patient states she is having no bleeding at this time, but I spoke with clinical staff and they recommended she go to [facility] to get evaluated. [facility] 02-07-2025 Miscellaneous Notes Formattin g of this note might be different from the original. Patient called us today and was concerned as she is in early stages of , and she is having stomach cramping all across her abdomen. Patient states she is having no bleeding at this time, but I spoke with clinical staff and they recommended she go to [facility] to get evaluated. documented in this encounter [facility] 01-20-2025 History of Presen t illness [...] weeks gestation of Nurse Note: Patient desires [facility]. Pt was advised to have both labs w/[facility] at [facility] or the lab dept will not draw [facility] w/o labs. PVU. Pt stated she had [...] or undercooked meat, [facility]. Patient has also been advised to not [...] Ciarra Castillo MA documented in this encounter [facility] 12-06-2024 History of Presen t illness [...] of: CHIKA Lyman documented in this encounter [facility] 11-01-2024 History of Presen t illness [...] nursing note reviewed. Exam conducted with a right of way cutter present. Vitals: Estimated body mass index is [...] Devyn Tello DO documented in this encounter [facility] 08-29-2024 History of Presen t illness [...] nursing note reviewed. Exam conducted with a right of way cutter present. Vitals: Estimated body mass index is [...] Devyn Tello DO documented in this encounter [facility] 06-13-2024 History of Presen t illness Narrative Reason for Appointment: Patient ID: Juanpablo Chaparro is a 23 y.o. female who presents for No chief complaint on file. Patient presents today via telephone call for a telehealth appointment. Patients Phone #: [phone] (mobile) Current Medications: has a current medication [...] by Maryam Saul LPN on behalf of: Devyn Tello DO documented in this encounter [facility] 11-12-2023 History of Presen t illness [...] by Ciarra Castillo MA on behalf of: Devyn Tello DO documented in this encounter [facility] 04-12-2022 Hospital Discharg e instructions Patient Education [...] help with your condition: Managing pain Take elgp-whb-exszvoc and prescription medicines only as told by [...] 09/14/2006 Document Revised: 04/04/2019 Document Reviewed: 04/04/2019 [employer] Patient Education 2020 [employer]. 04/12/2022 21:07:38 Vertigo Vertigo Vertigo is the [...] if you feel dizzy. General instructions Take rrbc-nvy-uunazzs and prescription medicines only as told by [...] 06/24/2006 Document Revised: 08/08/2019 Document Reviewed: 08/08/2019 [employer] Patient Education 2020 [employer]. Follow Up Care 04/12/2022 19:25:17 With:ADRYAN MARIE Address: [address] [place], [place] [id number] Business (1) When:04/15/2022 20:55:24 Comments:Return to the emergency room if her headache gets worse, vertigo becomes persistent or any new symptoms [facility] 04-09-2022 Evaluation note Encounter Date Diagnosis Assessment [...] She was prescribed Zofran with no improvement. [facility] Other 07-06-2022 Evaluation note* Encounter Date Diagnosis [...] 3 days. No swimming for a week [facility] Other 01-28-2022 NoteOPERATIVE NOTE PROCEDURE: Diagnostic laparoscopy. PREOPERATIVE DIAGNOSIS: Pelvic pain, dyspareunia dysmenorrhea. POSTOPERATIVE DIAGNOSIS: Pelvic pain, dyspareunia dysmenorrhea. ANESTHESIA: General. SURGEON: Devyn Tello D.O. MARKETING PRODUCER: JAE Worley URINE OUTPUT: Yellow and clear. [...] [facility] Signed and Approved by: DR DEVYN TELLO . 11/01/2021 17:31:00[facility] No data available for this section [facility] [employer] Other Evaluation note* Diagnosis Third trimester state, incidental Excessive growth affecting management of in third trimester, single or unspecified fetus documented in this encounter [facility] HealthcareEvaluation note* Diagnosis Well woman exam with routine gynecological exam Routine gynecological examination UTI symptoms Missed menses documented in this encounter [facility] HealthcareEvaluation note* Diagnosis Post depression ([facility] Primary Mental disorders of mother, complicating , childbirth, or the puerperium, unspecified as to episode of care documented in this encounter [facility] HealthcareEvaluation note* Diagnosis Post depression ([facility]) Mental disorders of mother, complicating , childbirth, or the puerperium, unspecified as to episode of care documented in this encounter [facility] HealthcareEvaluation note* Diagnosis Exposure to STD [facility] Diagnosis Missed menses , unspecified gestational age Encounter for supervision of normal first in first trimester 9 weeks gestation of [facility]* Diagnosis 17 weeks gestation of ([facility]) Second trimester ([facility]) state, incidental Screening, , for anatomic survey ([facility]) Encounter for anatomic survey Exposure to STD Vaginal discharge Leukorrhea, not specified as infective [facility]* Diagnosis Second trimester ([facility]) state, incidental 21 weeks gestation of ([facility]) [facility] Diagnosis 24 weeks gestation of ([facility]) Second trimester ([facility]) state, incidental Subchorionic hemorrhage of placenta, antepartum ([facility]) Diabetes mellitus screening Screening for diabetes mellitus [facility] Diagnosis Third trimester ([facility]) state, incidental 28 weeks gestation of ([facility]) size inconsistent with dates ([facility]) [facility] Diagnosis Third trimester ([facility]) state, incidental 30 weeks gestation of ([facility]) [facility] Narrative - Reported* Type Description Date Medical History acid reflux Medical History headache Surgical History lip surgery Surgical History endometriosis Hospitalization History RSV as a baby [facility] Other Progress note No data available for this section [facility] Summary Purpose Family History No [...] Care Team (unrecognized sect ion and content) Medical And Scientific Illustrator Relationship Specialty Start Date End Date Adryan Marie MD [address] [place] [address] PCP - General Family Medicine 06/19/23 Medical And Scientific Illustrator Relationship Specialty Start Date End Date Adryan Marie MD [address] [place], [place] [id number] PCP - General Family Medicine 06/19/23 Medical And Scientific Illustrator Relationship Specialty Start Date End Date Adryan Marie MD [address] [place], [place] [id number] PCP - [facility] 06/19/23 Medical And Scientific Illustrator Relationship Specialty Start Date End Date Adryan Marie MD [address] [place] [address] PCP - [facility] 06/19/23 Medical And Scientific Illustrator Relationship Specialty Start Date End Date Adryan Marie MD [address] [place] [address] PCP - [facility] 06/19/23 Medical And Scientific Illustrator Relationship Specialty Start Date End Date Adryan Marie MD [address] [place] [address] PCP - [facility] 06/19/23 Medical And Scientific Illustrator Relationship Specialty Start Date End Date Adryan Marie MD [address] [place] [address] PCP - [facility] 06/19/23 Devyn Tello DO [address] [place] [address] [place] [address] [facility]CP [facility] 09/28/24 Medical And Scientific Illustrator Relationship Specialty Start Date End Date Adryan Marie MD [address] [place] [address] PCP - [facility] 06/19/23 Devyn Tello DO [address] [place], [place] [address] [address] [facility]CP [facility] 09/28/24 Medical And Scientific Illustrator Relationship Specialty Start Date End Date Adryan Marie MD [address] [place] [address] PCP - [facility] 06/19/23 Devyn Tello DO [facility] [place] [address] PCP - [facility] 09/28/24 Medical And Scientific Illustrator Relationship Specialty Start Date End Date Adryan Marie MD [address] [place] [address] PCP - [facility] 06/19/23 Devyn Tello DO [facility] [place] [address] PCP - [facility] 09/28/24 Medical And Scientific Illustrator Relationship Specialty Start Date End Date Adryan Marie MD [address] [place] [address] PCP - [facility] 06/19/23 Devyn Tello DO [facility] [address] [place] [address] PCP - [facility] 09/28/24 Medical And Scientific Illustrator Relationship Specialty Start Date End Date [place]ryan [place] [address] PCP - [facility] 06/19/23 Devyn Tello DO [facility] [place] [address] PCP [facility] 09/28/24 Medical And Scientific Illustrator Relationship Specialty Start Date End Date Adryan [place] [address] PCP - [facility] 06/19/23 Devyn Tello, [facility] [place] [address] PCP - [facility] 09/28/24 Medical And Scientific Illustrator Relationship Specialty Start Date End Date Adryan Marie MD [address] [place] [address] PCP - [facility] 06/19/23 Devyn Tello, [facility] [place] [address] PCP - [facility] 09/28/24 Medical And Scientific Illustrator Relationship Specialty Start Date End Date Adryan Marie MD [address] [place] [address] PCP - [facility] 06/19/23 Devyn Tello DO [facility] [place] [address] PCP - [facility] 09/28/24 Medical And Scientific Illustrator Relationship Specialty Start Date End Date Adryan Marie MD [address] [place] [address] PCP - [facility] 06/19/23 Devyn Tello, [facility] [place] [address] [facility]CP [facility] 09/28/24 Medical And Scientific Illustrator Relationship Specialty Start Date End Date Adryan Marie MD [address] [place] [address] PCP - General Family Medicine 06/19/23 Devyn Tello DO [address] [place] [address] [place] [address] PCP - [facility] 09/28/24 INFORMATION SOURCE (unrecogn ized section and content) DATE CREATED AUTHOR 04/26/2022 [facility] DATE CREATED AUTHOR AUTHOR'S ORGANIZ ATION 09/19/2022 [facility] [place] [facility] DATE CREATED AUTHOR AUTHOR'S ORGANIZ ATION 06/21/2025 [facility] Specialists [facility] FOR RECORDS PERTAINING TO [...] BE BASED ON THE PRIMARY CLINICAL RECORDS. [employer] provides no warranty or guarantee of the accuracy or completeness of information in this document.
--- OUTSIDE RECORDS SUMMARY | 2025-07-03 05:57 | XMS_ITS | Encounter Summary ---
Author Organization [facility] Address [address] [place] [address] Care Team Providers Care Agency Sales Development Associate Name Role Phone Roberto Marie MD Primary Care Provider + [phone] Devyn Tello DO Unavailable Encounter Details Date Type Department Care Team (Late st Contact Info) Description 06/29/2025 Abstract [facility] [address] [place] [address] Cydney Alexis, PURCHASING ADMINISTRATIVE ASSISTANT [address] [place] [address] Social History Tobacco Use Types Packs/Day Years [...] Description 07/05/2025 9:20 AM EDT Routine [facility] [address] [place] [address] [place] [address] Nichole Stallings, DRUM SANDER OFFBEARER [address] [facility] [place] [address] 07/18/2025 9:00 AM EDT Routine [facility] [address] [facility] [place] [address] Devyn Tello, DO [address] [facility] [address] [place], [place] [id number] 09/07/2025 9:00 AM EST Office Visit [facility] [address] [facility] [place] [address] Devyn Tello, DO [address] [facility] [address] [place], [facility]11 documented as of this encounter Goals Goal Patient Goal Type Associated Problems Recent Progress Patient-Stated? Author Reminders Care Plan OB Reminders No Open Scheduling, Background documented as of this encounter Visit Diagnoses Not on filedocumented in this encounter Additional Health Concerns Active Problems Noted Date Diagnosed Date OB Reminders 06/27/2023 documented as of this encounter Care Teams Agency Sales Development Associate Relationship Specialty Start Date End Date Roberto Marie MD [address] [place] [address] PCP - General Family Medicine 06/19/23 Devyn Tello DO [address] [place] [address] [facility] documented as of this encounter
--- OUTSIDE RECORDS SUMMARY | 2025-07-03 05:57 | XMS_ITS | Encounter Summary ---
Author Organization [facility] Address [address] [place] [address] Care Team Providers Care Lip Of Shank Cutter Name Role Phone Roberto Marie MD Primary Care Provider + [phone] Devyn Tello DO Unavailable Encounter Details Date Type Department Care Team (Late st Contact Info) Description 06/26/2025 Patient Outreach [facility] [address] [place] [address] Cydney Alexis LPN [address] [place] [address] Social History Tobacco Use Types Packs/Day Years [...] on file documented as of this encounter Functional Status * Over the past 2 weeks, how often have you been bothered by any of the following problems? Question Answer Date of Assessment Author Little interest or pleasure in doing things Not at all 06/27/2025 11:35 AM EDT Cydney Alexis LP N Feeling down, depressed, or hopeless Not at all 06/27/2025 11:35 AM EDT Cydney Alexis LP N Patient Health Questionnaire -2 Score 0 06/27/2025 11:35 AM EDT Cydney Alexis LP N documented as of this encounter Progress Notes * Cydney Alexis LPN - 06/26/2025 10:58 AM EDT Initial Outreach. Call to pt X2. Pt reports she feels she is doing well and monthly outreach is notneeded. documented in this encounter Plan of Treatment Upcoming Encounters Date Type Department Care Team (Late st Contact Info) Description 07/05/2025 9:20 AM EDT Routine [facility] [address] [place] [address] Nichole Stallings, DRAWER LINER [address] [facility] [place] [address] 07/18/2025 9:00 AM EDT Routine [facility] [address] [place] [address] [place] [address] Devyn Tello, [address] [place] [address] 09/07/2025 9:00 AM EST Office Visit [facility] [address] [facility] [place] [address] Devyn Tello, DO [address] [place] [address] documented as of this encounter Goals Goal Patient Goal Type Associated Problems Recent Progress Patient-Stated? Author Reminders Care Plan OB Reminders No Open Scheduling, Background documented as of this encounter Visit Diagnoses Not on filedocumented in this encounter Additional Health Concerns Active Problems Noted Date Diagnosed Date OB Reminders 06/27/2023 documented as of this encounter Care Teams Lip Of Shank Cutter Relationship Specialty Start Date End Date Roberto Marie MD [address] [place] [address] PCP - General Family Medicine 06/19/23 Devyn Tello DO [address] [place] [address] [place] [address] PCP - [facility] 09/28/24 documented as of this encounter
--- OUTSIDE RECORDS SUMMARY | 2025-07-03 05:57 | XMS_ITS | Encounter Summary ---
Author Organization [facility] Address [address] [facility] [place] [address] Care Team Providers Care Registered Nurse Name Role Phone Adryan [place] MD Primary Care Provider + [phone] Devan Tello DO Unavailable Encounter Details Date Type Department Care Team (Late st Contact Info) Description 12/16/2023 Clinisync Result Encounter [facility] External Department Unsolicited Devan Tello, DO [address] [facility] [place] [address] Social History Tobacco Use Types Packs/Day [...] AM EDT Routine [facility] [address] [place] [address] Nichole Stallings, YURI [address] [facility] [place] [address] 07/18/2025 9:00 AM EDT Routine [facility] [address] [facility] [phone] Devan Tello DO [address] [place] [address] 09/07/2025 9:00 AM EST Office Visit [facility] [address] [place] [address] Devan Tello DO [address] [place] [address] documented as of this encounter Goals Goal Patient Goal Type Associated Problems Recent Progress Patient-Stated? Author Reminders Care Plan OB Reminders No Open Scheduling, Background documented as of this encounter Procedures Procedure Name Priority Date/Time Associated Diagnosis Comments US OB BPP W NON-STRESS 12/16/2023 10:53 AM EDT documented in this encounter Results * US OB BPP W NON-STRESS (12/16/2023 10:53 AM EDT) Anatomical Region Laterality Modality Other 12/16/2023 10:5 3 AM EDT Narrative 12/16/2023 10:55 [place] [address] Ultrasound Report Signed Patient: JUANPABLO REYNOSO MR#: [id number] : 2000 Acct:[id number] Age/Sex: 23 / F ADM Date: 12/16/23 Loc: [facility] 250-[address]: Devan Tello D.O. Ordering Physician: Devan Tello D.O. Date of Service: 12/16/23 Procedure(s): US OB BPP w non-stress Accession Number(s): [id number] cc: ADRYAN MOORE ; Devan Tello D.O. The [address] [address] Patient Name: JUANPABLO REYNOSO MRN: [id number] date: 2000 Sex: F Assigned Patient Location: Current Patient Location: [facility] Accession/Order Number: [id number] Exam Date: 12/16/2023 10:00 Report Date: 12/16/2023 10:53 At the request of: DEVAN TELLO Procedure: US OB BPP w non-stress EXAMINATION: US OB BPP w non-stress HISTORY: Excessive growth O36.63X0 COMPARISON: No relevant comparison available. TECHNIQUE: Ultrasound biophysical profile was performed in the radiology department. non-reactive stress testing was performed by nursing staff in the birthing center. FINDINGS: BREATHING MOVEMENTS: 2.0 GROSS BODY MOVEMENTS: 2.0 TONE: 2.0 QUALITATIVE AMNIOTIC FLUID VOLUME: 2.0 PRESENTATION: CEPHALIC HEART RATE: 121.6 bpm H.B./min AMNIOTIC FLUID VOLUME: 15.7 cm cm GESTATIONAL AGE: 34 weeks 0 days CONCLUSION: Total biophysical profile score: 8.0 Electronically authenticated by: ADRYAN PRESCOTT Date: 12/16/2023 10:53 Dictated By: Adryan Prescott M.D. Signed By: 12/16/23 1055 DD/ 1053 TD/TT: Linotyper: Procedure Note Radiology, Radiologist, MD - 12/16/2023 [place] [address] Ultrasound Report Signed Patient: TERE REYNOSO#: [id number] : 2000Acct:[id number] Age/Sex: 23 / FADM Date: 12/16/23 Loc: [facility] 250-[address]: Devan Tello D.O. Ordering Physician: Devan Tello D.O. Date of Service: 12/16/23 Procedure(s): US OB BPP w non-stress Accession Number(s): [id number] cc: ADRYAN MOORE ; Devan Tello D.O. The [place] [id number] Patient Name: JUANPABLO REYNOSO MRN: [id number] date: 2000 Sex: F Assigned Patient Location: US Current Patient Location: [facility] Accession/Order Number: [id number] Exam Date: 12/16/2023 10:00 Report Date: 12/16/2023 10:53 At the request of: DEVAN TELLO Procedure: US OB BPP w non-stress EXAMINATION: US OB BPP w non-stress HISTORY: Excessive growth O36.63X0 COMPARISON: No relevant comparison available. TECHNIQUE: Ultrasound biophysical profile was performed in the radiology department. non-reactive stress testing was performed by nursingstaff in the birthing center. FINDINGS: BREATHING MOVEMENTS: 2.0 GROSS BODY MOVEMENTS: 2.0 TONE: 2.0 QUALITATIVE AMNIOTIC FLUID VOLUME: 2.0 PRESENTATION: CEPHALIC HEART RATE: 121.6 bpm H.B./min AMNIOTIC FLUID VOLUME: 15.7 cm cm GESTATIONAL AGE: 34 weeks 0 days CONCLUSION: Total biophysical profile score: 8.0 Electronically authenticated by: ADRYAN PRESCOTT Date: 12/16/2023 10:53 Dictated By: Adryan Prescott M.D. Signed By:12/16/23 1055 DD/ 1053 TD/TT: Linotyper: Devan Tello DO [facility] Final Result documented in this encounter Visit Diagnoses Not on filedocumented in this encounter Additional Health Concerns Active Problems Noted Date Diagnosed Date OB Reminders 06/27/2023 documented as of this encounter Care Teams Registered Nurse Relationship Specialty [place] [address] [place] [address] [place] [address] PCP - General Family Medicine 06/19/23 Devan Tello DO [address] [place] [address] [place] [address] PCP - [facility] 09/28/24 documented as of this encounter
--- OUTSIDE RECORDS SUMMARY | 2025-07-03 05:57 | XMS_ITS | Encounter Summary ---
Author Organization [facility] Address [address] [facility] [place] [address] Care Team Providers Care Backup Administrative Coordinator Name Role Phone Adryan Moore MD Primary Care Provider + [phone] Devan Tello DO Unavailable Encounter Details Date Type Department Care Team (Late st Contact Info) Description 11/26/2023 Clinisync Result Encounter [facility] External Department Unsolicited Devan Tello, DO [address] [facility] [place] [address] Social [...] AM EDT Routine [facility] Bk OBNABIL [address] [place] [address] Nichole Stallings, YURI [address] [facility] [place] [address] 07/18/2025 9:00 AM EDT Routine [facility] [place] [facility] [address] [place] [address] [place] [phone] Devan Tello DO [address] [place] [address] 09/07/2025 9:00 AM EST Office Visit [facility] OTTO [address] [facility] [place] [phone] Devan Tello DO [address] [place] [address] documented as of this encounter Goals Goal Patient Goal Type Associated Problems Recent Progress Patient-Stated? Author Reminders Care Plan OB Reminders No Open Scheduling, Background documented as of this encounter Procedures Procedure Name Priority Date/Time Associated Diagnosis Comments OB GROWTH 11/26/2023 11:15 AM EST documented in this encounter Results * OB GROWTH (11/26/2023 11:15 AM EST) Anatomical Region Laterality Modality Other 11/26/2023 11:1 5 AM EST Narrative 11/26/2023 11:18 AM EST [address] [address] Ultrasound Report Signed Patient: JUANPABLO REYNOSO MR#: [id number] : 2000 Acct:[id number] Age/Sex: 23 / F ADM Date: 11/26/23 Loc: [facility] Attending Dr: Devan Tello D.O. Ordering Physician: Devan Tello D.O. Date of Service: 11/26/23 Procedure(s): US OB growth Accession Number(s): [id number] cc: ADRYAN MOORE ; Devan Tello D.O. [address] [address] Patient Name: JUANPABLO REYNOSO MRN: [facility]:[id number] date: 2000 Sex: F Assigned Patient Location: [facility] Current Patient Location: [facility] Accession/Order Number: [id number] Exam Date: 11/26/2023 10:29 Report Date: 11/26/2023 11:15 At the request of: DEVAN TELLO Procedure: US OB growth EXAMINATION: US OB growth HISTORY: LGA COMPARISON: No relevant comparison available. FINDINGS: Heart Rate: 122.0 bpm Amniotic Fluid Volume: 16.4 cm Number: 1.0 Position: Cephalic presentation, longitudinal lie Maximum Vertical Pocket: 4.8 cm cm 6.0 cm cm 3.9 cm cm 1.7 cm cm BIOMETRY: BPD: 8.1 cm cm; 32 weeks 3 days; 76% HC: 29.9 cmcm; 33 weeks 1 days, 70% AC: 29.4 cm cm; 33 weeks 3 days, 95% FL: 6.1 cm cm; 31 weeks 5 days; 52.6 % % EFW: 2048.2 grams, 4 lbs. 8 oz., 88% FL/AC: 20.8 FL/BPD: 75.8 HC/AC: 1.0 GESTATIONAL AGE: Age by EDC: 31 weeks 1 days TOMASZ by EDC: 01/27/2024 Age by US: 32 weeks 1 day TOMASZ by US: 01/20/2024 US/US OB growth IMPRESSION: Abdominal circumference at the 95th percentile Estimated weight 88 percentile Electronically authenticated by: ADRYAN PRESCOTT Date: 11/26/2023 11:15 Dictated By: Adryan Prescott M.D. Signed By: 11/26/23 1118 DD/ 1115 TD/TT: R D Engineer: Procedure Note Radiology, Radiologist, - 11/26/2023 [place] [address] Ultrasound Report Signed Patient: TERE REYNOSO#: [id number] : 2000Acct:[id number] Age/Sex: 23 / FADM Date: 11/26/23 Loc: [facility] Attending Dr: Devan Tello D.O. Ordering Physician: Devan Tello D.O. Date of Service: 11/26/23 Procedure(s): US OB growth Accession Number(s): [id number] cc: ADRYAN MOORE ; Devan Tello D.O. The [place] [id number] Patient Name: JUANPABLO REYNOSO MRN: [id number] date: 2000 Sex: F Assigned Patient Location: [facility] Current Patient Location: [facility] Accession/Order Number: [id number] Exam Date: 11/26/2023 10:29 Report Date: 11/26/2023 11:15 At the request of: DEVAN TELLO Procedure: US OB growth EXAMINATION: US OB growth HISTORY: LGA COMPARISON: No relevant comparison available. FINDINGS: Heart Rate: 122.0 bpm Amniotic Fluid Volume: 16.4 cm Number: 1.0 Position: Cephalic presentation, longitudinal lie Maximum Vertical Pocket: 4.8 cm cm 6.0 cm cm 3.9 cm cm 1.7 cm cm BIOMETRY: BPD: 8.1 cm cm; 32 weeks 3 days; 76% HC: 29.9 cmcm; 33 weeks 1 days, 70% AC: 29.4 cm cm; 33 weeks 3 days, 95% FL: 6.1 cm cm; 31 weeks 5 days; 52.6 % % EFW: 2048.2 grams, 4 lbs. 8 oz., 88% FL/AC: 20.8 FL/BPD: 75.8 HC/AC: 1.0 GESTATIONAL AGE: Age by EDC: 31 weeks 1 days TOMASZ by EDC: 01/27/2024 Age by US: 32 weeks 1 day TOMASZ by US: 01/20/2024 US/US OB growth IMPRESSION: Abdominal circumference at the 95th percentile Estimated weight 88 percentile Electronically authenticated by: ADRYAN PRESCOTT Date: 11/26/2023 11:15 Dictated By: Adryan Prescott M.D. Signed By:11/26/23 1118 DD/ 1115 TD/TT: R D Engineer: Devan Tello DO [facility] Final Result documented in this encounter Visit Diagnoses Not on filedocumented in this encounter Additional Health Concerns Active Problems Noted Date Diagnosed Date OB Reminders 06/27/2023 documented as of this encounter Care Teams Backup Administrative Coordinator Relationship Specialty Start Date End Date Adryan Moore MD [address] [place] [address] PCP - General Family Medicine 06/19/23 Devan Tello DO [address] [place] [address] PCP - [facility] 09/28/24 documented as of this encounter
--- OUTSIDE RECORDS SUMMARY | 2025-07-03 05:57 | XMS_ITS | Encounter Summary ---
Author Organization [facility] Address [address] [facility] [place] [address] Care Team Providers Care Kiln Loader Name Role Phone Roberto Marie MD Primary Care Provider + [phone] Devyn Tello DO Unavailable Encounter Details Date Type Department Care Team (Late Contact Info) Description 01/30/2025 Abstract [facility]ION OTTO [facility] [place] [address] Devyn Tello DO [address] [facility] [address] [place], [facility] Social History Tobacco Use Types Packs/Day [...] 9:20 AM EDT Routine NOM[facility] OTTO [address] [place] [address] Nichole Stallings VP SOFTWARE [address] [facility] [place] [phone] 07/18/2025 9:00 AM EDT Routine [facility]OM[facility] OTTO [address] [facility] [place] [phone] Devyn Tello, DO [address] [facility] [address] [place], [facility] 09/07/2025 9:00 AM EST Office Visit [facility]OM[facility]ina OTTO [address] [facility] [place] [phone] Devyn Tello, DO [address] [facility] [address] [place], [place] [phone] documented as of this encounter Goals Goal Patient Goal Type Associated Problems Recent Progress Patient-Stated? Author Reminders Care Plan OB Reminders No Open Scheduling, Background documented as of this encounter Visit Diagnoses Not on filedocumented in this encounter Additional Health Concerns Active Problems Noted Date Diagnosed Date OB Reminders 06/27/2023 documented as of this encounter Care Teams Kiln Loader Relationship Specialty Start Date End Date Roberto Marie MD [address] [place] [address] PCP - General Family Medicine 06/19/23 Devyn Tello DO [address] [place] [address] [place] [address] PCP - [facility] 09/28/24 documented as of this encounter
--- OUTSIDE RECORDS SUMMARY | 2025-07-03 05:57 | XMS_ITS ---
Author Organization [facility] Address [address] [place] [address] Care Team Providers Care Stenotype Machine Operator Name Role Phone Roberto Marie MD Primary Care Provider + [phone] Devyn Tello DO Unavailable Comprehensive [facility]aternal Care ([facility]) Status:Declined (Declined) Start date:06/22/2025 Enrollment date:06/27/2025 Enrollment reason:Identified by Health Plan End date:06/27/2025 Decline reason:Uninterested Continued Care and Services Coordination
--- OUTSIDE RECORDS SUMMARY | 2025-07-03 05:57 | XMS_ITS | Encounter Summary ---
Author Organization [facility] Address [id number] [address] [place] [address] Care Team Providers Care Motor Vehicle Field Representative Name Role Phone Roberto Marie MD Primary Care Provider +[phone] Encounter Details Date Type Department Care Team (Late st Contact Info) Description 12/02/2023 Orders Only [facility] [address] [place] [address] External, Scanning Provider Social History [...] US BIOPHYSICAL PROFILE FET WO NST Routine 12/01/2023 documented in this encounter Results * Ultrasound biophysical profile without non-stress testing (12/01/2023) Anatomical Region Laterality Modality OB-CURTAIN INSPECTOR Ultrasound 12/01/2023 us Scanning Provider External IMG US ORDERABLES Fin al Result documented in this encounter Visit Diagnoses Not on filedocumented in this encounter Additional Health Concerns Assessment Noted Time PHQ-9 Depression Total Score: 0 04/10/20 23 7:00 AM EDT documented as of this encounter Care Teams Motor Vehicle Field Representative Relationship Specialty Start Date End Date Roberto Marie MD [address]. Provider retired 12/27/24 [place] [address] PCP - General Family Medicine 02/01/18 documented as of this encounter
--- OUTSIDE RECORDS SUMMARY | 2025-07-03 05:57 | XMS_ITS | Encounter Summary ---
Author Organization [facility] Address [id number] [address] [place] [address] Care Team Providers Care Training Specialist Name Role Phone Roberto Marie MD Primary Care Provider [phone] Encounter Details Date Type Department Care Team (Late st Contact Info) Description 01/22/2024 Orders Only [facility] [address] [place] [address] External, Scanning Provider Social History [...] Procedure Name Priority Date/Time Associated Diagnosis Comments NONSTRESS TEST Routine 01/20/2024 documented in this encounter Results * nonstress test (01/20/2024) us Scanning Provider External OB GYNE ORDERABLES Fi nal Result MANUALLY TRANSCRIBED RESULTS documented in this encounter Visit Diagnoses Not on filedocumented in this encounter Additional Health Concerns Assessment Noted Time PHQ-9 Depression Total Score: 0 04/10/20 23 7:00 AM EDT documented as of this encounter Care Teams Training Specialist Relationship Specialty Start Date End Date Roberto Marie MD [address] Provider retired 12/27/24 [place] [address] PCP - General Family Medicine 02/01/18 documented as of this encounter
--- OUTSIDE RECORDS SUMMARY | 2025-07-03 05:58 | XMS_ITS | Encounter Summary ---
Author Organization [facility] Address [address] [facility] [place] [address] Care Team Providers Care Meat Grader Name Role Phone Roberto Marie MD Primary Care Provider + [phone] Devyn Tello DO Unavailable Encounter Details Date Type Department Care Team (Late Contact Info) Description 09/06/2024 Orders Only [facility] OTTO [address] [place] [place] [address] Jasmin Nogueira LPN [address] [facility] [address] [facility] Social History Tobacco Use Types Packs/Day Years [...] 9:20 AM EDT Routine [facility]OM[facility]ina OTTO [address] [place] [place] [address] Nichole Stallings, COSMETIC CHEMIST [address] [place] [address] 07/18/2025 9:00 AM EDT Routine [facility] OTTO [address] [facility] [place] [address] Devyn Tello, DO [address] [facility] [address] [place], [place] [phone] 09/07/2025 9:00 AM EST Office Visit [facility]OM[facility]ina OTTO [address] [facility] [place] [address] Devyn Tello, DO [address] [place] [address] documented as of this encounter Goals Goal Patient Goal Type Associated Problems Recent Progress Patient-Stated? Author Reminders Care Plan OB Reminders No Open Scheduling, Background documented as of this encounter Procedures Procedure Name Priority Date/Time Associated Diagnosis Comments PAP SMEAR Routine 08/29/2024 12:00 AM EST documented in this encounter Results * Pap Smear (08/29/2024 12:00 AM EST) Swab Cervical swab / Unknown Omer Nurse [facility] Ob LAB CYTOLOGY ORDERABLES Final Result EXTERNAL LAB documented in this encounter Visit Diagnoses Not on filedocumented in this encounter Additional Health Concerns Active Problems Noted Date Diagnosed Date OB Reminders 06/27/2023 documented as of this encounter Care Teams Meat Grader Relationship Specialty Start Date End Date Roberto Marie MD [address] [address] PCP - General Family Medicine 06/19/23 Devyn Tello DO [address] [place] [address] PCP - [facility] 09/28/24 documented as of this encounter
--- OUTSIDE RECORDS SUMMARY | 2025-07-03 05:58 | XMS_ITS | Encounter Summary ---
Author Organization [employer] [facility] Address [id number] [address] [place] [address] Care Team Providers Care Training Personnel Supervisor Name Role Phone Roberto Marie MD Primary Care Provider + [phone] Encounter Details Date Type Department Care Team (Late st Contact Info) Description 04/21/2022 Telephone [facility] [address] [place] [address] Roberto Marie MD [address]. Provider retired 12/27/24 [place] [address] Social History Tobacco Use Types [...] PHQ-2 Answer Date Recorded Total Score 0 04/11/2022 Childcare Answer Date Recorded Childcare Unknown 03/09/2019 [...] have Coronavirus / COVID-19? No / Unsure 04/11/2022 8:01 AM EDT documented as of this encounter Miscellaneous Notes * Telephone Encounter - Roberto Marie MD - 04/21/2022 11:15 AM EDT Stool studies are negative for infection, how is pt doing? documented in this encounter Plan of Treatment Not on file documented as of this encounter Visit Diagnoses Not on filedocumented in this encounter Additional Health Concerns Assessment Noted Time PHQ-9 Depression Total Score: 0 04/11/20 22 8:00 AM EDT documented as of this encounter Care Teams Training Personnel Supervisor Relationship Specialty Start Date End Date Roberto Marie MD [address] Provider retired 12/27/24 [place] [address] PCP - General Family Medicine 02/01/18 documented as of this encounter
--- OUTSIDE RECORDS SUMMARY | 2025-07-03 05:58 | XMS_ITS | Encounter Summary ---
Author Organization [facility] Address [address] [facility] [place] [address] Care Team Providers Care Executive Asst Name Role Phone Adryan Moore MD Primary Care Provider + [phone] Devan Tello DO Unavailable Encounter Details Date Type Department Care Team (Late st Contact Info) Description 12/30/2023 Clinisync Result Encounter [facility] External Department Unsolicited Devan Tello, DO [address] [facility] [place] [address] Social History [...] AM EDT Routine [facility] Bk OBNABIL [address] [place] [address] Nichole Stallings, YURI [address] [facility] [place] [address] 07/18/2025 9:00 AM EDT Routine [facility] Bk OBGYN [address] [facility] [place] [address] Devan Tello DO [address] [place] [address] 09/07/2025 9:00 AM EST Office Visit [facility]OMS Bk ABDIGYLiss [address] [place] [phone] Devan Tello DO [address] [place] [address] documented as of this encounter Goals Goal Patient Goal Type Associated Problems Recent Progress Patient-Stated? Author Reminders Care Plan OB Reminders No Open Scheduling, Background documented as of this encounter Procedures Procedure Name Priority Date/Time Associated Diagnosis Comments US OB BPP W NON-STRESS 12/30/2023 10:41 AM EDT documented in this encounter Results * US OB BPP W NON-STRESS (12/30/2023 10:41 AM EDT) Anatomical Region Laterality Modality Other 12/30/2023 10:4 1 AM EDT Narrative 12/30/2023 10:43 [place] [address] Ultrasound Report Signed Patient: JUANPABLO REYNOSO MR#: [id number] : 2000 Acct:[id number] Age/Sex: 23 / F ADM Date: 12/30/23 Loc: [facility] 250-[address]: Devan Tello D.O. Ordering Physician: Devan Tello D.O. Date of Service: 12/30/23 Procedure(s): US OB BPP w non-stress Accession Number(s): [id number] cc: ADRYAN MOORE ; Devan Tello D.O. The [place] [id number] Patient Name: JUANPABLO REYNOSO MRN: [id number] date: 2000 Sex: F Assigned Patient Location: [facility] Current Patient Location: [facility] Accession/Order Number: [id number] Exam Date: 12/30/2023 10:05 Report Date: 12/30/2023 10:41 At the request of: DEVAN TELLO Procedure: US OB BPP w non-stress EXAMINATION: US OB BPP w non-stress HISTORY: EXCESSIVE GROWTH AFFECTING O36.63X0 COMPARISON: Ultrasound OB biophysical 12/23/2023 TECHNIQUE: Ultrasound biophysical profile was performed in the radiology department. BREATHING MOVEMENTS: 2.0 GROSS BODY MOVEMENTS: 2.0 TONE: 2.0 QUALITATIVE AMNIOTIC FLUID VOLUME: 2.0 PRESENTATION: CEPHALIC HEART RATE: 135.0 bpm bpm. AMNIOTIC FLUID VOLUME: 19.6 cm GESTATIONAL AGE: 36 weeks 0 days CONCLUSION: Total biophysical profile score 8.0. Electronically authenticated by: MATTHEW GROVE Date: 12/30/2023 10:41 Dictated By: Matthew Grove M.D. Signed By: 12/30/23 1043 DD/ 1041 TD/TT: Concrete Float Maker: Procedure Note Radiology, Radiologist, MD - 12/30/2023 [place] [address] Ultrasound Report Signed Patient: TERE REYNOSO#: [id number] : 2000Acct:[id number] Age/Sex: 23 / FADM Date: 12/30/23 Loc: [facility] 250-[address]: Devan Tello D.O. Ordering Physician: Devan Tello D.O. Date of Service: 12/30/23 Procedure(s): US OB BPP w non-stress Accession Number(s): [id number] cc: ADRYAN MOORE ; Devan Tello D.O. The [address] [address] Patient Name: JUANPABLO REYNOSO MRN: [facility]:[id number] date: 2000 Sex: F Assigned Patient Location: [facility] Current Patient Location: [facility] Accession/Order Number: [id number] Exam Date: 12/30/2023 10:05 Report Date: 12/30/2023 10:41 At the request of: DEVAN TELLO Procedure: US OB BPP w non-stress EXAMINATION: US OB BPP w non-stress HISTORY: EXCESSIVE GROWTH AFFECTING O36.63X0 COMPARISON: Ultrasound OB biophysical 12/23/2023 TECHNIQUE: Ultrasound biophysical profile was performed in the radiology department. BREATHING MOVEMENTS: 2.0 GROSS BODY MOVEMENTS: 2.0 TONE: 2.0 QUALITATIVE AMNIOTIC FLUID VOLUME: 2.0 PRESENTATION: CEPHALIC HEART RATE: 135.0 bpm bpm. AMNIOTIC FLUID VOLUME: 19.6 cm GESTATIONAL AGE: 36 weeks 0 days CONCLUSION: Total biophysical profile score 8.0. Electronically authenticated by: MATTHEW GROVE Date: 12/30/2023 10:41 Dictated By: Matthew Grove M.D. Signed By:12/30/23 1043 DD/ 1041 TD/TT: Concrete Float Maker: us Devan Tello DO [facility] Final Result documented in this encounter Visit Diagnoses Not on filedocumented in this encounter Additional Health Concerns Active Problems Noted Date Diagnosed Date OB Reminders 06/27/2023 documented as of this encounter Care Teams Executive Asst Relationship Specialty [place] [address] [place] [address] [place] [address] PCP - General Family Medicine 06/19/23 Devan Tello DO [address] [place] [address] [place] [address] PCP - [facility] 09/28/24 documented as of this encounter
--- OUTSIDE RECORDS SUMMARY | 2025-07-03 05:58 | XMS_ITS | Encounter Summary ---
Author Organization [facility] Address [address] [facility] [place] [address] Care Team Providers Care Hole Digger Truck Driver Name Role Phone Adryan Moore MD Primary Care Provider + [phone] Devan Tello DO Unavailable Encounter Details Date Type Department Care Team (Late st Contact Info) Description 01/14/2024 Clinisync Result Encounter N[facility]S External Department Unsolicited Devan Tello, DO [address] [facility] [place] [address] Social History Tobacco Use Types Packs/Day [...] AM EDT Routine [facility] Bk OBNABIL [address] [place] [address] Nichole Stallings, YURI [address] [facility] [place] [address] 07/18/2025 9:00 AM EDT Routine [facility] [place] [facility] [address] [facility] [place] [phone] Devan Tello DO [address] [place] [address] 09/07/2025 9:00 AM EST Office Visit [facility] [place] [facility] [address] [facility] [place] [phone] Devan Telol DO [address] [place] [address] documented as of this encounter Goals Goal Patient Goal Type Associated Problems Recent Progress Patient-Stated? Author Reminders Care Plan OB Reminders No Open Scheduling, Background documented as of this encounter Procedures Procedure Name Priority Date/Time Associated Diagnosis Comments US OB GROWTH 01/14/2024 3:57 PM EDT documented in this encounter Results * US OB GROWTH (01/14/2024 3:57 PM EDT) Anatomical Region Laterality Modality Other 01/14/2024 3:57 PM EDT Narrative 01/14/2024 4:00 PM EDT The [address] [address] Ultrasound Report Signed Patient: JUANPABLO REYNOSO MR#: [id number] : 2000 Acct:[id number] Age/Sex: 23 / F ADM Date: 01/14/24 Loc: [facility] Attending Dr: Devan Tello D.O. Ordering Physician: Devan Tello D.O. Date of Service: 01/14/24 Procedure(s): US OB growth Accession Number(s): [id number] cc: ADRYAN MOORE ; Devan Tello D.O. The [address] [address] Patient Name: JUANPABLO REYNOSO MRN: [facility]:[id number] date: 2000 Sex: F Assigned Patient Location: [facility] Current Patient Location: [facility] Accession/Order Number: [id number] Exam Date: 01/14/2024 15:09 Report Date: 01/14/2024 15:57 At the request of: DEVAN TELLO Procedure: US OB growth EXAMINATION: US OB growth HISTORY: LGA ; rapid change in growth percentile COMPARISON: Ultrasound OB growth 01/13/2024 FINDINGS: Heart Rate: 141.0 bpm Number: 1.0 Position: CEPHALIC Amniotic Fluid Volume: 11.8 cm Maximum Vertical Pocket: 5.5 cm BIOMETRY: BPD: 9.4 cm cm; 38 weeks 3 days; 80% HC: 34.6 cmcm; 40 weeks 0 days ; 76% AC: 37.7 cm cm; 41 weeks 5 days; >97% FL: 7.5 cm cm; 38 weeks 2 days; 57% EFW: 4074.2 grams; >97% FL/AC: 19.8 FL/BPD: 79.3 HC/AC: 0.9 GESTATIONAL AGE: Age by EDC: 38 weeks 1 days TOMASZ by EDC: 01/27/2024 Age by US: 39 weeks 4 days TOMASZ by US: 01/17/2024 US/US OB growth IMPRESSION: 1. Single live intrauterine with growth detailed above. 2. Estimated weight is greater than 97th percentile. Electronically authenticated by: MATTHEW GROVE Date: 01/14/2024 15:57 Dictated By: Matthew Grove M.D. Signed By: 01/14/24 1600 DD/ 1557 TD/TT: Media Relations Specialist: Procedure Note Radiology, Radiologist, MD - 01/14/2024 [place] [address] Ultrasound Report Signed Patient: TERE REYNOSO#: [id number] : 2000Acct:[id number] Age/Sex: 23 / FADM Date: 01/14/24 Loc: [facility]OMS Attending Dr: Devan Tello D.O. Ordering Physician: Devan Tello D.O. Date of Service: 01/14/24 Procedure(s): US OB growth Accession Number(s): [id number] cc: ADRYAN MOORE ; Devan Tello D.O. The [place] [id number] Patient Name: JUANPABLO REYNOSO MRN: [id number]:[id number] date: 2000 Sex: F Assigned Patient Location: [facility] Current Patient Location: [facility] Accession/Order Number: [id number] Exam Date: 01/14/2024 15:09 Report Date: 01/14/2024 15:57 At the request of: DEVAN TELLO Procedure: US OB growth EXAMINATION: US OB growth HISTORY: LGA ; rapid change in growth percentile COMPARISON: Ultrasound OB growth 01/13/2024 FINDINGS: Heart Rate: 141.0 bpm Number: 1.0 Position: CEPHALIC Amniotic Fluid Volume: 11.8 cm Maximum Vertical Pocket: 5.5 cm BIOMETRY: BPD: 9.4 cm cm; 38 weeks 3 days; 80% HC: 34.6 cmcm; 40 weeks 0 days ; 76% AC: 37.7 cm cm; 41 weeks 5 days; >97% FL: 7.5 cm cm; 38 weeks 2 days; 57% EFW: 4074.2 grams; >97% FL/AC: 19.8 FL/BPD: 79.3 HC/AC: 0.9 GESTATIONAL AGE: Age by EDC: 38 weeks 1 days TOMASZ by EDC: 01/27/2024 Age by US: 39 weeks 4 days TOMASZ by US: 01/17/2024 US/US OB growth IMPRESSION: 1. Single live intrauterine with growth detailed above. 2. Estimated weight is greater than 97th percentile. Electronically authenticated by: MATTHEW GROVE Date: 01/14/2024 15:57 Dictated By: Matthew Grove M.D. Signed By:01/14/24 1600 DD/ 1557 TD/TT: Media Relations Specialist: Devan Tello DO [facility] Final Result documented in this encounter Visit Diagnoses Not on filedocumented in this encounter Additional Health Concerns Active Problems Noted Date Diagnosed Date OB Reminders 06/27/2023 documented as of this encounter Care Teams Hole Digger Truck Driver Relationship Specialty Start Date End Date Adryan Moore MD [address] [place] [address] PCP - General Family Medicine 06/19/23 Devan Tello DO [address] [place] [address] PCP - [facility] 09/28/24 documented as of this encounter
--- OUTSIDE RECORDS SUMMARY | 2025-07-03 05:58 | XMS_ITS | Encounter Summary ---
Author Organization [facility] Address [address] [facility] [place] [address] Care Team Providers Care Ortho Nurse Name Role Phone Adryan Moore MD Primary Care Provider + [phone] Devan Tello DO Unavailable Encounter Details Date Type Department Care Team (Late st Contact Info) Description 12/23/2023 Clinisync Result Encounter [facility] External Department Unsolicited Devan Tello, DO [address] [facility] [place] [address] Social History Tobacco Use Types Packs/Day [...] AM EDT Routine [facility] Bk OBNABIL [address] [place] [address] Nichole Stallings, YURI [address] [facility] [place] [address] 07/18/2025 9:00 AM EDT Routine [facility] OBGYN [address] [facility] [phone] Devan Tello, [address] [place] [address] 09/07/2025 9:00 AM EST Office Visit [facility] Bk ABDIGYLiss [address] [place] [phone] Devan Tello, [address] [place], [place] [phone] documented as of this encounter Goals Goal Patient Goal Type Associated Problems Recent Progress Patient-Stated? Author Reminders Care Plan OB Reminders No Open Scheduling, Background documented as of this encounter Procedures Procedure Name Priority Date/Time Associated Diagnosis Comments US OB BPP W NON-STRESS 12/23/2023 10:52 AM EDT documented in this encounter Results * US OB BPP W NON-STRESS (12/23/2023 10:52 AM EDT) Anatomical Region Laterality Modality Other 12/23/2023 10:5 2 AM EDT Narrative 12/23/2023 10:55 AM EDT The [address] [address] Ultrasound Report Signed Patient: JUANPABLO REYNOSO MR#: [id number] : 2000 Acct:[id number] Age/Sex: 23 / F ADM Date: 12/23/23 Loc: US Attending Dr: Devan Tello D.O. Ordering Physician: Devan Tello D.O. Date of Service: 12/23/23 Procedure(s): US OB BPP w non-stress Accession Number(s): [id number] cc: ADRYAN MOORE ; Devan Tello D.O. The [address] [address] Patient Name: JUANPABLO REYNOSO MRN: [id number] date: 2000 Sex: F Assigned Patient Location: [facility] Current Patient Location: Accession/Order Number: [id number] Exam Date: 12/23/2023 10:00 Report Date: 12/23/2023 10:52 At the request of: DEVAN TELLO Procedure: US OB BPP w non-stress EXAMINATION: US OB BPP w non-stress HISTORY: Excessive growth COMPARISON: Ultrasound OB biophysical 12/16/2023 TECHNIQUE: Ultrasound biophysical profile was performed in the radiology department. BREATHING MOVEMENTS: 2.0 GROSS BODY MOVEMENTS: 2.0 TONE: 2.0 QUALITATIVE AMNIOTIC FLUID VOLUME: 2.0 PRESENTATION: CEPHALIC HEART RATE: 132.4 bpm bpm. AMNIOTIC FLUID VOLUME: 10.7 cm GESTATIONAL AGE: 35 weeks 0 days CONCLUSION: Total biophysical profile score 8.0. Electronically authenticated by: MATTHEW GROVE Date: 12/23/2023 10:52 Dictated By: Matthew Grove M.D. Signed By: 12/23/23 1055 DD/ 1052 TD/TT: Wood Die Maker: Procedure Note Radiology, Radiologist, MD - 12/23/2023 [place] [address] Ultrasound Report Signed Patient: TERE REYNOSO#: [id number] : 2000Acct:[id number] Age/Sex: 23 / FADM Date: 12/23/23 Loc: US Attending Dr: Devan Tello D.O. Ordering Physician: Devan Tello D.O. Date of Service: 12/23/23 Procedure(s): US OB BPP w non-stress Accession Number(s): [id number] cc: ADRYAN MOORE ; Devan Tello D.O. The [place] [address] Patient Name: JUANPABLO REYNOSO MRN: [id number] date: 2000 Sex: F Assigned Patient Location: [facility] Current Patient Location: Accession/Order Number: [id number] Exam Date: 12/23/2023 10:00 Report Date: 12/23/2023 10:52 At the request of: DEVAN TELLO Procedure: US OB BPP w non-stress EXAMINATION: US OB BPP w non-stress HISTORY: Excessive growth COMPARISON: Ultrasound OB biophysical 12/16/2023 TECHNIQUE: Ultrasound biophysical profile was performed in the radiology department. BREATHING MOVEMENTS: 2.0 GROSS BODY MOVEMENTS: 2.0 TONE: 2.0 QUALITATIVE AMNIOTIC FLUID VOLUME: 2.0 PRESENTATION: CEPHALIC HEART RATE: 132.4 bpm bpm. AMNIOTIC FLUID VOLUME: 10.7 cm GESTATIONAL AGE: 35 weeks 0 days CONCLUSION: Total biophysical profile score 8.0. Electronically authenticated by: MATTHEW GROVE Date: 12/23/2023 10:52 Dictated By: Matthew Grove M.D. Signed By:12/23/23 1055 DD/ 1052 TD/TT: Wood Die Maker: us Devan Tello DO [facility] Final Result documented in this encounter Visit Diagnoses Not on filedocumented in this encounter Additional Health Concerns Active Problems Noted Date Diagnosed Date OB Reminders 06/27/2023 documented as of this encounter Care Teams Ortho Nurse Relationship Specialty Start Date End Date Adryan Moore MD [address] [place] [address] PCP - General Family Medicine 06/19/23 Devan Tello DO [address] [place] [address] [place] [address] PCP - [facility] 09/28/24 documented as of this encounter
--- OUTSIDE RECORDS SUMMARY | 2025-07-03 05:58 | XMS_ITS | Encounter Summary ---
Author Organization [facility] Address [address] [facility] [place] [address] Care Team Providers Care Road Supervisor Of Engines Name Role Phone Adryan Moore MD Primary Care Provider + [phone] Devan Tello DO Unavailable Encounter Details Date Type Department Care Team (Late st Contact Info) Description 12/24/2023 Clinisync Result Encounter [facility] External Department Unsolicited Devan Tello, DO [address] [facility] [place] [address] Social History Tobacco Use Types Packs/Day [...] AM EDT Routine [facility] Bk OBNABIL [address] [place] [address] Nichole Stallings, YURI [address] [facility] [place] [address] 07/18/2025 9:00 AM EDT Routine [facility] [place] [facility] [address] [facility] [place] [phone] Devan Tello DO [address] [place] [address] 09/07/2025 9:00 AM EST Office Visit [facility] [place] [facility] [address] [facility] [place] [phone] Devan Tello DO [address] [place] [address] documented as of this encounter Goals Goal Patient Goal Type Associated Problems Recent Progress Patient-Stated? Author Reminders Care Plan OB Reminders No Open Scheduling, Background documented as of this encounter Procedures Procedure Name Priority Date/Time Associated Diagnosis Comments US OB GROWTH 12/24/2023 10:58 AM EDT documented in this encounter Results * US OB GROWTH (12/24/2023 10:58 AM EDT) Anatomical Region Laterality Modality Other 12/24/2023 10:5 8 AM EDT Narrative 12/24/2023 11:01 AM EDT [address] [address] Ultrasound Report Signed Patient: JUANPABLO REYNOSO MR#: [id number] : 2000 Acct:[id number] Age/Sex: 23 / F ADM Date: 12/24/23 Loc: NOMS Attending Dr: Devan Tello D.O. Ordering Physician: Devan Tello D.O. Date of Service: 12/24/23 Procedure(s): US OB growth Accession Number(s): [id number] cc: ADRYAN MOORE ; Devan Tello D.O. The [address] [address] Patient Name: JUANPABLO REYNOSO MRN: [facility]:[id number] date: 2000 Sex: F Assigned Patient Location: [facility] Current Patient Location: [facility] Accession/Order Number: [id number] Exam Date: 12/24/2023 10:06 Report Date: 12/24/2023 10:58 At the request of: DEVAN TELLO Procedure: US OB growth EXAMINATION: US OB growth HISTORY: LGA COMPARISON: No relevant comparison available. FINDINGS: Heart Rate: 130.0 bpm Amniotic Fluid Volume: 12.8 cm Number: 1.0 Position: Cephalic presentation, longitudinal lie Maximum Vertical Pocket: 3.8 cm cm 2.5 cm cm 3.5 cm cm 3.0 cm cm BIOMETRY: BPD: 8.9 cm cm; 36 weeks 1 days; 79% HC: 33.5 cmcm; 38 weeks 3 days , 89% AC: 35.1 cm cm; 39 weeks 0 days, >97% FL: 7.3 cm cm; 37 weeks 3 days; 91.6 % % EFW: 3419.1 grams, 7 lb 9 oz, > 97% FL/AC: 20.9 FL/BPD: 82.0 HC/AC: 1.0 GESTATIONAL AGE: Age by EDC: 35 weeks 1 days TOMASZ by EDC: 01/27/24 Age by US: 37w 5d TOMASZ by US: 01/09/24 US/US OB growth IMPRESSION: Large for gestational age Electronically authenticated by: ADRYAN PRESCOTT Date: 12/24/2023 10:58 Dictated By: Adryan Prescott M.D. Signed By: 12/24/23 1101 DD/ 1058 TD/TT: Layout Artist: Procedure Note Radiology, Radiologist, MD - 12/24/2023 [place] [address] Ultrasound Report Signed Patient: TERE REYNOSO#: [id number] : 2000Acct:[id number] Age/Sex: 23 / FADM Date: 12/24/23 Loc: NOMS Attending Dr: Devan Tello D.O. Ordering Physician: Devan Tello D.O. Date of Service: 12/24/23 Procedure(s): US OB growth Accession Number(s): [id number] cc: ADRYAN MOORE ; Devan Tello D.O. The [place] [id number] Patient Name: JUANPABLO REYNOSO MRN: [id number] date: 2000 Sex: F Assigned Patient Location: [facility] Current Patient Location: [facility] Accession/Order Number: [id number] Exam Date: 12/24/2023 10:06 Report Date: 12/24/2023 10:58 At the request of: DEVAN TELLO Procedure: US OB growth EXAMINATION: US OB growth HISTORY: LGA COMPARISON: No relevant comparison available. FINDINGS: Heart Rate: 130.0 bpm Amniotic Fluid Volume: 12.8 cm Number: 1.0 Position: Cephalic presentation, longitudinal lie Maximum Vertical Pocket: 3.8 cm cm 2.5 cm cm 3.5 cm cm 3.0 cm cm BIOMETRY: BPD: 8.9 cm cm; 36 weeks 1 days; 79% HC: 33.5 cmcm; 38 weeks 3 days , 89% AC: 35.1 cm cm; 39 weeks 0 days, >97% FL: 7.3 cm cm; 37 weeks 3 days; 91.6 % % EFW: 3419.1 grams, 7 lb 9 oz, > 97% FL/AC: 20.9 FL/BPD: 82.0 HC/AC: 1.0 GESTATIONAL AGE: Age by EDC: 35 weeks 1 days TOMASZ by EDC: 01/27/24 Age by US: 37w 5d TOMASZ by US: 01/09/24 US/US OB growth IMPRESSION: Large for gestational age Electronically authenticated by: ADRYAN PRESCOTT Date: 12/24/2023 10:58 Dictated By: Adryan Prescott M.D. Signed By:12/24/23 1101 DD/ 1058 TD/TT: Layout Artist: Devan Tello DO [facility] Final Result documented in this encounter Visit Diagnoses Not on filedocumented in this encounter Additional Health Concerns Active Problems Noted Date Diagnosed Date OB Reminders 06/27/2023 documented as of this encounter Care Teams Road Supervisor Of Engines Relationship Specialty Start Date End Date Adryan Moore MD [address] [place] [address] PCP - General Family Medicine 06/19/23 Devan Tello DO [address] [place] [address] PCP - [facility] 09/28/24 documented as of this encounter
--- OUTSIDE RECORDS SUMMARY | 2025-07-03 05:58 | XMS_ITS | Encounter Summary ---
Author Organization [facility] Address [address] [facility] [place] [address] Care Team Providers Care Creative Services Producer Name Role Phone Roberto Marie MD Primary Care Provider + [phone] Devyn Tello DO Unavailable Encounter Details Date Type Department Care Team (Late st Contact Info) Description 02/07/2025 Abstract [facility] [address] [facility] [address] Belen Vera MA Social History Tobacco Use Types Packs/Day Years [...] 9:20 AM EDT Routine [facility] [address] [place] [address] Nichole Stallings, YURI [address] [facility] [place] [address] 07/18/2025 9:00 AM EDT Routine NOMSamina FISHN [address] [facility] [address] Devyn Tello, DO [address] [facility] [place] [address] 09/07/2025 9:00 AM EST Office Visit NOMSamina [facility]O [address] [facility] [place] [address] Devyn Tello, DO [address] [facility] [address] [place], [place] [phone] documented as of this encounter Goals Goal Patient Goal Type Associated Problems Recent Progress Patient-Stated? Author Reminders Care Plan OB Reminders No Open Scheduling, Background documented as of this encounter Visit Diagnoses Not on filedocumented in this encounter Additional Health Concerns Active Problems Noted Date Diagnosed Date OB Reminders 06/27/2023 documented as of this encounter Care Teams Creative Services Producer Relationship Specialty Start Date End Date Roberto Marie MD [address] [place] [address] PCP - General Family Medicine 06/19/23 Devyn Tello DO [address] [facility] [place] [address] PCP - [facility] 09/28/24 documented as of this encounter
--- OUTSIDE RECORDS SUMMARY | 2025-07-03 05:58 | XMS_ITS | Encounter Summary ---
Author Organization [facility] Address [address] [facility] [place] [address] Care Team Providers Care Campus Manager Name Role Phone Adryan Moore MD Primary Care Provider + [phone] Devan Tello DO Unavailable Encounter Details Date Type Department Care Team (Late st Contact Info) Description 01/20/2024 Clinisync Result Encounter NOM[facility] External Department Unsolicited Devan Tello, DO [address] [facility] [place] [address] Social History [...] AM EDT Routine [facility] Bk OBNABIL [address] [place] [address] Nichole Stallings, YURI [address] [facility] [place] [address] 07/18/2025 9:00 AM EDT Routine [facility] B[facility] OBGYN [address] [facility] [address] Devan Tello, [address] [place] [address] 09/07/2025 9:00 AM EST Office Visit [facility] Bk ABDIGYLiss [address] [place] [address] Devan Tello DO [address] [place], [place] [address] documented as of this encounter Goals Goal Patient Goal Type Associated Problems Recent Progress Patient-Stated? Author Reminders Care Plan OB Reminders No Open Scheduling, Background documented as of this encounter Procedures Procedure Name Priority Date/Time Associated Diagnosis Comments US OB BPP W NON-STRESS 01/20/2024 10:29 AM EDT documented in this encounter Results * US OB BPP W NON-STRESS (01/20/2024 10:29 AM EDT) Anatomical Region Laterality Modality Other 01/20/2024 10:2 9 AM EDT Narrative 01/20/2024 10:32 AM EDT The [place] [id number] Ultrasound Report Signed Patient: JUANPABLO REYNOSO MR#: [id number] : 2000 Acct:[id number] Age/Sex: 23 / F ADM Date: 01/20/24 Loc: [facility] 254-[address]: Devan Tello D.O. Ordering Physician: Devan Tello D.O. Date of Service: 01/20/24 Procedure(s): US OB BPP w non-stress Accession Number(s): [id number] cc: ADRYAN MOORE ; Devan Tello D.O. The [address] [address] Patient Name: JUANPABLO REYNOSO MRN: [id number] date: 2000 Sex: F Assigned Patient Location: Current Patient Location: [facility] Accession/Order Number: [id number] Exam Date: 01/20/2024 10:00 Report Date: 01/20/2024 10:29 At the request of: DEVAN TELLO Procedure: US OB BPP w non-stress EXAMINATION: US OB BPP w non-stress HISTORY: EXCESSIVE GROWTH COMPARISON: Ultrasound OB biophysical 01/13/2024, ultrasound OB growth 01/14/2024 TECHNIQUE: Ultrasound biophysical profile was performed in the radiology department. BREATHING MOVEMENTS: 2.0 GROSS BODY MOVEMENTS: 2.0 TONE: 2.0 QUALITATIVE AMNIOTIC FLUID VOLUME: 2.0 PRESENTATION: CEPHALIC HEART RATE: 153.4 bpm bpm. AMNIOTIC FLUID VOLUME: 16.4 cm GESTATIONAL AGE: 39 weeks 0 days CONCLUSION: 1. Total biophysical profile score 8.0. 2. Limited evaluation of the placenta but it appears aged with extensive calcifications and internal cysts. Electronically authenticated by: MATTHEW GROVE Date: 01/20/2024 10:29 Dictated By: Matthew Grove M.D. Signed By: 01/20/24 1032 DD/ 1029 TD/TT: Training Representative: Procedure Note Radiology, Radiologist, MD - 01/20/2024 [place] [address] Ultrasound Report Signed Patient: TERE REYNOSO#: [id number] : 2000Acct:[id number] Age/Sex: 23 / FADM Date: 01/20/24 Loc: [facility] 254-[address]: Devan Tello D.O. Ordering Physician: Devan Tello D.O. Date of Service: 01/20/24 Procedure(s): US OB BPP w non-stress Accession Number(s): [id number] cc: ADRYAN MOORE ; Devan Tello D.O. The [address] [address] Patient Name: JUANPABLO REYNOSO MRN: [id number] date: 2000 Sex: F Assigned Patient Location: US Current Patient Location: [facility] Accession/Order Number: [id number] Exam Date: 01/20/2024 10:00 Report Date: 01/20/2024 10:29 At the request of: DEVAN TELLO Procedure: US OB BPP w non-stress EXAMINATION: US OB BPP w non-stress HISTORY: EXCESSIVE GROWTH COMPARISON: Ultrasound OB biophysical 01/13/2024, ultrasound OB growth 01/14/2024 TECHNIQUE: Ultrasound biophysical profile was performed in the radiology department. BREATHING MOVEMENTS: 2.0 GROSS BODY MOVEMENTS: 2.0 TONE: 2.0 QUALITATIVE AMNIOTIC FLUID VOLUME: 2.0 PRESENTATION: CEPHALIC HEART RATE: 153.4 bpm bpm. AMNIOTIC FLUID VOLUME: 16.4 cm GESTATIONAL AGE: 39 weeks 0 days CONCLUSION: 1. Total biophysical profile score 8.0. 2. Limited evaluation of the placenta but it appears aged with extensive calcifications and internal cysts. Electronically authenticated by: MATTHEW GROVE Date: 01/20/2024 10:29 Dictated By: Matthew Grove M.D. Signed By:01/20/24 1032 DD/ 1029 TD/TT: Training Representative: Devan Tello DO [facility] Final Result documented in this encounter Visit Diagnoses Not on filedocumented in this encounter Additional Health Concerns Active Problems Noted Date Diagnosed Date OB Reminders 06/27/2023 documented as of this encounter Care Teams Campus Manager Relationship Specialty Start Date End Date Adryan Moore MD [address] [address] PCP - General Family Medicine 06/19/23 Devan Tello DO [address] [place], [place] [address] [place] [address] PCP - [facility] 09/28/24 documented as of this encounter
--- OUTSIDE RECORDS SUMMARY | 2025-07-03 05:58 | XMS_ITS | Encounter Summary ---
Author Organization [facility] Address [address] [facility] [place] [address] Care Team Providers Care Police Department Secretary Name Role Phone Adryan Moore MD Primary Care Provider + [phone] Devan Tello DO Unavailable Encounter Details Date Type Department Care Team (Late st Contact Info) Description 01/13/2024 Clinisync Result Encounter [facility]S External Department Unsolicited Devan Tello, DO [address] [facility] [place] [address] Social History Tobacco Use Types Packs/Day [...] AM EDT Routine [facility] OBNABIL [address] [place] [address] Nichole Stallings, YURI [address] [facility] [place] [address] 07/18/2025 9:00 AM EDT Routine [facility] OBGYN [address] [facility] [place] [phone] Devan Tello DO [address] [place] [address] 09/07/2025 9:00 AM EST Office Visit [facility] OTTO [address] [place] [phone] Devan Tello, [address] [place] [address] documented as of this encounter Goals Goal Patient Goal Type Associated Problems Recent Progress Patient-Stated? Author Reminders Care Plan OB Reminders No Open Scheduling, Background documented as of this encounter Procedures Procedure Name Priority Date/Time Associated Diagnosis Comments US OB BPP W NON-STRESS 01/13/2024 11:39 AM EDT documented in this encounter Results * US OB BPP W NON-STRESS (01/13/2024 11:39 AM EDT) Anatomical Region Laterality Modality Other 01/13/2024 11:3 9 AM EDT Narrative 01/13/2024 11:42 AM EDT The [address] [address] Ultrasound Report Signed Patient: JUANPABLO REYNOSO MR#: [id number] : 2000 Acct:[id number] Age/Sex: 23 / F ADM Date: 01/13/24 Loc: US Attending Dr: Devan Tello D.O. Ordering Physician: Devan Tello D.O. Date of Service: 01/13/24 Procedure(s): US OB BPP w non-stress Accession Number(s): [id number] cc: ADRYAN MOORE ; Devan Tello D.O. The [address] [address] Patient Name: JUANPABLO REYNOSO MRN: [id number] date: 2000 Sex: F Assigned Patient Location: [facility] Current Patient Location: Accession/Order Number: [id number] Exam Date: 01/13/2024 10:00 Report Date: 01/13/2024 11:39 At the request of: DEVAN TELLO Procedure: US OB BPP w non-stress EXAMINATION: US OB BPP w non-stress HISTORY: EXCESSIVE GROWTH O36.63X0 COMPARISON: No relevant comparison available. TECHNIQUE: Ultrasound biophysical profile was performed in the radiology department. FINDINGS: BREATHING MOVEMENTS: 2.0 GROSS BODY MOVEMENTS: 2.0 TONE: 2.0 QUALITATIVE AMNIOTIC FLUID VOLUME: 2.0 PRESENTATION: CEPHALIC HEART RATE: 150.0 bpm H.B./min AMNIOTIC FLUID VOLUME: 13.6 cm cm GESTATIONAL AGE: 38 weeks 0 days CONCLUSION: Total biophysical profile score: 8.0 Electronically authenticated by: ADRYAN PRESCOTT Date: 01/13/2024 11:39 Dictated By: Adryan Prescott M.D. Signed By: 01/13/24 1142 DD/ 1139 TD/TT: After School Counselor: Procedure Note Radiology, Radiologist, MD - 01/13/2024 [place] [address] Ultrasound Report Signed Patient: TERE REYNOSO#: [id number] : 2000Acct:[id number] Age/Sex: 23 / FADM Date: 01/13/24 Loc: US Attending Dr: Devan Tello D.O. Ordering Physician: Devan Tello D.O. Date of Service: 01/13/24 Procedure(s): US OB BPP w non-stress Accession Number(s): [id number] cc: ADRYAN MOORE Corey D.O. The [place] [id number] Patient Name: JUANPABLO REYNOSO MRN: [id number] date: 2000 Sex: F Assigned Patient Location: [facility] Current Patient Location: Accession/Order Number: [id number] Exam Date: 01/13/2024 10:00 Report Date: 01/13/2024 11:39 At the request of: DEVAN TELLO Procedure: US OB BPP w non-stress EXAMINATION: US OB BPP w non-stress HISTORY: EXCESSIVE GROWTH O36.63X0 COMPARISON: No relevant comparison available. TECHNIQUE: Ultrasound biophysical profile was performed in the radiology department. FINDINGS: BREATHING MOVEMENTS: 2.0 GROSS BODY MOVEMENTS: 2.0 TONE: 2.0 QUALITATIVE AMNIOTIC FLUID VOLUME: 2.0 PRESENTATION: CEPHALIC HEART RATE: 150.0 bpm H.B./min AMNIOTIC FLUID VOLUME: 13.6 cm cm GESTATIONAL AGE: 38 weeks 0 days CONCLUSION: Total biophysical profile score: 8.0 Electronically authenticated by: ADRYAN PRESCOTT Date: 01/13/2024 11:39 Dictated By: Adryan Prescott M.D. Signed By:01/13/24 1142 DD/ 1139 TD/TT: After School Counselor: us Devan Tello DO [facility] Final Result documented in this encounter Visit Diagnoses Not on filedocumented in this encounter Additional Health Concerns Active Problems Noted Date Diagnosed Date OB Reminders 06/27/2023 documented as of this encounter Care Teams Police Department Secretary Relationship Specialty Start Date End Date Adryan Moore MD [address] [facility] [place] [address] PCP - General Family Medicine 06/19/23 Devan Tello DO [address] [place] [address] [place] [address] PCP - [facility] 09/28/24 documented as of this encounter
[2025-07-03 06:15] VITALS: BP 133/68; PULSE 110
[2025-07-03 06:17] VITALS: TEMP 36.4
[2025-07-03 06:21] LABS: Glucose Urine UA NEGATIVE (NEGATIVE)
== END 2025-07-03 07:20 | disposition home or self-care (01) ==
LOC: FBC 05:54
PROVIDERS: Admitting Provider Obstetrics & Gynecology; Visit Provider Obstetrics & Gynecology
DX: Z03.71 Encounter for suspected problem with amniotic cavity and membrane ruled out (principal)
CPT/HCPCS: 59025; 81003; 84112; G0378; G0379

== ENCOUNTER 2025-08-02 15:07 | Outpatient (REF) | payer OTHER, SELFPAY ==
--- OUTSIDE RECORDS SUMMARY | 2025-08-02 09:30 | XMS_ITS | Encounter Summary ---
Author Organization [facility] Address [address] [facility] [place] [address] Care Team Providers Care Medical Insurance Collector Name Role Phone Roberto Marie MD Primary Care Provider + [phone] Devyn Tello DO Unavailable Reason for Visit * ReasonCommentsRoutine Visit Encounter Details DateTypeDepartmentCare Team (Latest Contact Info)Comquojrrfv92/05/2025 9:30 AM ESTRoutine [facility] OBNABIL [address] [facility] [place] [address] Cydney Aviles PA [address] [facility] [place] [address] Third trimester ([facility]); 36 weeks gestation of ([facility]) Social History Tobacco UseTypesPacks/DayYears UsedDateSmoking Tobacco: Former Comments:Current smoker (richar quency unknown) Alcohol UseStandard Drinks/WeekCommentsNever0 (1 standard drink = 0.6 oz pure alcohol)PHQ-2AnswerDate RecordedPatient Health Questionnaire-2 Iuusx032 Estimated Date of CplglqlhTnjxxnhlNvm56/28/2025Based on last menstrual period of 11/18/2024 (Approximate)Sex and Gender InformationValueDate RecordedSex Assigned at BirthNot on fileLegal DquGprvoc83/15/2023 6:47 PM EDTGender Identity Not on fileSexual OrientationNot on filedocumented as of this encounter Last Filed Vital Signs Vital SignReadingTime TakenCommentsBlood Hxmmtjbn641/8211 9:35 AM EST Pulse--Temperature--Respiratory Rate--Oxygen Saturation--Inhaled Oxygen Concentration--Nhpbld476 kg (227 lb 8 oz)08/02/2025 9:35 AM ESTHeight--Body Mass Index37.8606 11:37 AM EDTdocumented in this encounter Progress Notes * Nichole Stallings NP - 08/02/2025 9:30 AM EST Reason for Appointment: Patient ID: Breonna Reynoso is a 24 y.o. female who presents for Routine Visit Patient presents today for Return OB appointment. MEDICATIONS Current Outpatient Medications Medication Instructions OQ-Zbt-UI-[facility]-3 ( GUMMIES/DHA & FA PO) 1 each, Daily ALLERGIES Allergies Allergen Reactions Sulfa Antibiotics Fever, Hives and Rash PROBLEMS Active Ambulatory Problems Diagnosis Date Noted Third trimester ([facility]) 06/20/2025 30 weeks gestation of ([facility]) 06/20/2025 Resolved Ambulatory Problems Diagnosis Date Noted [...] nursing note reviewed. Exam conducted with a linux network systems administrator present. Vitals: Estimated body mass index is 37.86 kg/m?? as calculated from the following: Height as of 03/08/24: 5' 5 . Weight as of this encounter: 227 lb 8 oz. BP: 112/82 Patient's last menstrual period was 11/18/2024 (approximate). Assessment/Plan ICD-10-CM 1. Third trimester ([facility]) Z34.93 POCT urinalysis dipstick manually resulted CULTURE, GROUP B STREP WITH SUSCEPTIBLITY CULTURE, GROUP B STREP WITH SUSCEPTIBLITY 2. 36 weeks gestation of ([facility]) Z3A.36 Return OB: Patient presents today for a routine obstetrics appointment. Patient is currently 36w5d . Patient states she is doing well but has complaints of being tired due to current . Patient has verbalizes frequent movement. labor precautions was discussed/given and patient was instructed to perform kick counts three times a day. Orders Placed This Encounter Procedures CULTURE, GROUP B STREP WITH SUSCEPTIBLITY POCT urinalysis dipstick manually resulted Follow Up: Patient is to return to office in 2 week for routine OB appointment. Documented by Nichole Stallings NP on behalf of: CHIKA Lyman documented in this encounter Plan of Treatment DateTypeDepartmentCare Team (Latest Contact Info)Qjeojltipol13/11/2025 10:30 AM ESTRoutine [facility] O[facility]YN [address] [place] [phone] Devyn Tello DO [address] [facility] [place] [address] NameTypePriorityAssociated DiagnosesOrder ScheduleCULTURE, GROUP B STREP WITH SUSCEPTIBLITYLabRoutine Third trimester ([facility]) Expected: 08/02/2025, Expires: 08/02/2026documented as of this encounter Goals GoalPatient Goal TypeAssociated ProblemsRecent ProgressPatient-Stated?Author Reminders Care PlanOB RemindersNoOpen Scheduling, Backgrounddocumented as of this encounter Procedures Procedure NamePriorityDate/TimeAssociated DiagnosisCommentsPOCT URINALYSIS MUFEOMXCIyzktej95/05/2025 9:46 AM EST Third trimester ([facility]) documented in this encounter Results * POCT urinalysis dipstick manually resulted (08/02/2025 9:46 AM EST)Component ValueRef RangeTest MethodAnalysis TimePerformed AtPathologist SignatureColor, UAYellowClarity, UAClearGlucose, UANegativeNegative - 2000(110) ++++ mg/dL Bilirubin, UANegativeNegative - 4(70) +++ mg/dLKetones, UANegativeNegative - 160(16) ++++ mg/dLSpec Grav, UA1.0151 - 1.03Blood, UANegativeNegative - 50 Cedric/mcLpH, UA6.05 - 9Protein, UANegativeNegative - 2000(20) ++++ mg/dL Urobilinogen, UA0.20.2 - 12 mg/dLLeukocytes, UANegativeNegative - 500+++ Alessandro/mcLNitrite, UANegativeNegative - PositiveSpecimen (Source)Anatomical Location / LateralityCollection Method / VolumeCollection TimeReceived Time Urine08/02/2025 9:46 AM EST Narrative Authorizing ProviderResult TypeResult StatusAmy Traci PAPOINT OF CARE TEST ENTER/EDIT ORDERABLESFinal Result documented in this encounter Visit Diagnoses Diagnosis Third trimester ([facility]) state, incidental 36 weeks gestation of ([facility]) documented in this encounter Additional Health Concerns Active ProblemsNoted DateDiagnosed DateOB Twqnkrlla62/30/2023 documented as of this encounter Care Teams Team MemberRelationshipSpecialtyStart DateEnd Date Roberto Marie MD [address] [place] [address] [facility] - [facility]23 Devyn Tello DO [address] [place], [place] [phone] PCP - [facility]09/28/24documented as of this encounter
--- OUTSIDE RECORDS SUMMARY | 2025-08-02 15:09 | XMS_ITS | Encounter Summary ---
Author Organization [facility] Address [address] [facility] [place] [address] Care Team Providers Care Class C Driver Name Role Phone Roberto Marie MD Primary Care Provider + [phone] Devyn Tello DO Unavailable Encounter Details DateTypeDepartmentCare Team (Latest Contact Info)Avrfzvkakfl97/29/2025Travel Social History Tobacco UseTypesPacks/DayYears UsedDateSmoking Tobacco: Former Comments:Current smoker (richar quency unknown) Alcohol UseStandard Drinks/WeekCommentsNever0 (1 standard drink = 0.6 oz pure alcohol)PHQ-2AnswerDate RecordedPatient Health Questionnaire-2 Zdaxh824 Estimated Date of FhbtldpgAeulmrkrFqv68/28/2025Based on last menstrual period of 11/18/2024 (Approximate)Sex and Gender InformationValueDate RecordedSex Assigned at BirthNot on fileLegal LupMyvdde53/15/2023 6:47 PM EDTGender Identity Not on fileSexual OrientationNot on filedocumented as of this encounter Plan of Treatment DateTypeDepartmentCare Team (Latest Contact Info)Zjvemxrsuxj19/11/2025 10:30 AM ESTRoutine [facility]BGYN [address] [facility] [place] [address] Devyn Tello, [address] [facility] [place] [address] documented as of this encounter Goals GoalPatient Goal TypeAssociated ProblemsRecent ProgressPatient-Stated?Author Reminders Care PlanOB RemindersNoOpen Scheduling, Backgrounddocumented as of this encounter Visit Diagnoses Not on filedocumented in this encounter Additional Health Concerns Active ProblemsNoted DateDiagnosed DateOB Cwitpbucx14/30/2023 documented as of this encounter Care Teams Team MemberRelationshipSpecialtyStart DateEnd Date Roberto Marie MD [address] [place] [address] PCP - GeneralFamily Medicine06/19/23 Devyn Tello DO [address] [place] [address] [place] [address] PCP - [facility]09/28/24documented as of this encounter
--- OUTSIDE RECORDS SUMMARY | 2025-08-02 15:09 | XMS_ITS | Encounter Summary ---
Author Organization [facility] Address [address] [place] [address] Care Team Providers Care Bartender Name Role Phone Adryan Moore MD Primary Care Provider + [phone] Devan Tello DO Unavailable Encounter Details DateTypeDepartmentCare Team (Latest Contact Info)Gnorzfdeokt66/03/2024Clinisync Result Encounter [facility] External Department Unsolicited Devan Tello, DO [address] [facility] [address] [place], [place] [address] Social History Tobacco UseTypesPacks/DayYears UsedDateSmoking Tobacco: Unknown Comments:Current smoker (richar quency unknown) Alcohol UseStandard Drinks/WeekCommentsNever0 (1 standard drink = 0.6 oz pure alcohol)PHQ-2AnswerDate RecordedPatient Health Questionnaire-2 Ejrjp156 CommentsYesSex and Gender InformationValueDate RecordedSex Assigned at BirthNot on fileLegal AppYvybtz19/15/2023 6:47 PM EDTGender IdentityNot on file Sexual OrientationNot on filedocumented as of this encounter Functional Status * Over the past 2 weeks, how often have you been bothered by any of the following problems?QuestionAnswerDate of AssessmentAuthorLittle interest or pleasure in doing thingsNot at all06/27/2025 11:35 AM Cydney Go LPN Feeling down, depressed, or hopelessNot at all06/27/2025 11:35 AM Cydney Go LPNPatient Health Questionnaire-2 Spjkv556 11:35 AM Cydney Go LPN documented as of this encounter Plan of Treatment DateTypeDepartmentCare Team (Latest Contact Info)Srueifqpykw19/11/2025 10:30 AM ESTRoutine [facility] OBGYN [address] [facility] [place] [address] Devan Tello, DO [address] [facility] [place] [address] documented as of this encounter Goals GoalPatient Goal TypeAssociated ProblemsRecent ProgressPatient-Stated?Author Reminders Care PlanOB RemindersNoOpen Scheduling, Backgrounddocumented as of this encounter Procedures Procedure NamePriorityDate/TimeAssociated DiagnosisCommentsUS OB BPP W NON-GTLEJD7312/30/2023 10:41 AM EDT documented in this encounter Results * US OB BPP W NON-STRESS (12/30/2023 10:41 AM EDT)Anatomical Region LateralityModalityOtherSpecimen (Source)Anatomical Location / Laterality Collection Method / VolumeCollection TimeReceived Time12/30/2023 10:41 AM EDT Narrative 12/30/2023 10:43 AM EDT The [facility] ?[address] ? [place] [address] ? Ultrasound Report ? Signed ? Patient: JUANPABLO REYNOSO ?MR#: [id number] ?? : 2000 ?Acct:[id number] ?? Age/Sex: 23 / F ?ADM Date: 12/30/23 ?? Loc: [facility] ??250-1 ? Attending Dr: Devan Tello D.O. ? Ordering Physician: Devan Tello D.O. ?? Date of Service: 12/30/23 ?? Procedure(s): US OB BPP w non-stress ?? Accession Number(s): [id number] ? cc: ADRYAN MOORE ; Devan Tello D.O. ? The [facility] ? [address] ? [place] [address] ? Patient Name: ?? JUANPABLO ??KRYSTA ? MRN: [facility]:[id number] ? date: 2000 ?Sex: F ?? Assigned Patient Location: [facility] ?? Current Patient Location: [facility] ?? Accession/Order Number: [id number] ?? Exam Date: 12/30/2023 ??10:05 ?Report Date: 12/30/2023 ??10:41 ? At the request of: ?? DEVAN ??OMER ? Procedure: ??US OB BPP w non-stress ? EXAMINATION: US OB BPP w non-stress ? HISTORY: EXCESSIVE GROWTH AFFECTING O36.63X0 ? COMPARISON: Ultrasound OB biophysical 12/23/2023 ? TECHNIQUE: Ultrasound biophysical profile was performed in the radiology ?? department. ? BREATHING MOVEMENTS: 2.0 ?? GROSS BODY MOVEMENTS: 2.0 ?? TONE: 2.0 ?? QUALITATIVE AMNIOTIC FLUID VOLUME: 2.0 ? PRESENTATION: CEPHALIC ?? HEART RATE: 135.0 bpm bpm. ?? AMNIOTIC FLUID VOLUME: 19.6 cm ?? GESTATIONAL AGE: 36 weeks 0 days ? CONCLUSION: ? Total biophysical profile score 8.0. ? Electronically authenticated by: MATTHEW ??STEPHENIE ?? Date: 12/30/2023 ??10:41 ? Dictated By: ?Matthew Grove M.D. ? Signed By: ?12/30/23 1043 ? DD/ 1041 ? TD/TT: ? Chef Broiler Or Fry: Procedure Note Radiology, Radiologist, - 12/30/2023 [place] [address] Ultrasound Report Signed Patient: TERE REYNOSO#: [id number] : 2000Acct:[id number] Age/Sex: 23 M Date: 12/30/23 Loc: [facility] 250-[address]: Devan Tello D.O. Ordering Physician: Devan Tello D.O. Date of Service: 12/30/23 Procedure(s): US OB BPP w non-stress Accession Number(s): [id number] cc: ADRYAN MOORE ; Devan Tello D.O. The [address] [address] Patient Name: JUANPABLO LANCEN: TBH:[id number] date: 2000 Sex: F Assigned Patient Location: [facility] Current Patient Location: [facility] Accession/Order Number: [id number] Exam Date: 12/30/2023 10:05 Report Date: 12/30/2023 [...] M.D. Signed By:12/30/23 1043 DD/ 1041 TD/TT: Chef Broiler Or Fry: Authorizing ProviderResult TypeResult StatusCorey Omer DOCLINISYNC IMAGINGFinal Result documented in this encounter Visit Diagnoses Not on filedocumented in this encounter Additional Health Concerns Active ProblemsNoted DateDiagnosed DateOB Opclnjktt81/30/2023 documented as of this encounter Care Teams Team MemberRelationshipSpecialtyStart DateEnd Date Adryan Moore MD [address] [place] [address] PCP - GeneralFamily Medicine06/19/23 Devan Tello DO [address] [place] [address] [place] [address] PCP - [facility]09/28/24documented as of this encounter
--- OUTSIDE RECORDS SUMMARY | 2025-08-02 15:09 | XMS_ITS | Encounter Summary ---
Author Organization [facility] Address [address] [place] [address] Care Team Providers Care Alumni Coordinator Name Role Phone Adryan Moore MD Primary Care Provider + [phone] Devan Tello DO Unavailable Encounter Details DateTypeDepartmentCare Team (Latest Contact Info)Mmqsrepgcmz63/17/2024Clinisync Result Encounter [facility]S External Department Unsolicited Devan Tello, DO [address] [facility] [address] [place], [place] [address] Social History Tobacco UseTypesPacks/DayYears UsedDateSmoking Tobacco: Unknown Comments:Current smoker (richar quency unknown) Alcohol UseStandard Drinks/WeekCommentsNever0 (1 standard drink = 0.6 oz pure alcohol)PHQ-2AnswerDate RecordedPatient Health Questionnaire-2 Owzyo920 CommentsYesSex and Gender InformationValueDate RecordedSex Assigned at BirthNot on fileLegal YmdVllprq79/15/2023 6:47 PM EDTGender IdentityNot on file Sexual OrientationNot on filedocumented as of this encounter Functional Status * Over the past 2 weeks, how often have you been bothered by any of the following problems?QuestionAnswerDate of AssessmentAuthorLittle interest or pleasure in doing thingsNot at all06/27/2025 11:35 AM Cydney Go LPN Feeling down, depressed, or hopelessNot at all06/27/2025 11:35 AM Cydney Go LPNPatient Health Questionnaire-2 Ykngr973 11:35 AM Cydney Go LPN documented as of this encounter Plan of Treatment DateTypeDepartmentCare Team (Latest Contact Info)Grqaluvnutd77/11/2025 10:30 AM ESTRoutine [facility] [address] [place] [address] Devan Tello, DO [address] [facility] [place] [address] documented as of this encounter Goals GoalPatient Goal TypeAssociated ProblemsRecent ProgressPatient-Stated?Author Reminders Care PlanOB RemindersNoOpen Scheduling, Backgrounddocumented as of this encounter Procedures Procedure NamePriorityDate/TimeAssociated DiagnosisCommentsUS OB BPP W NON-FSZTMJ3001/13/2024 11:39 AM EDT documented in this encounter Results * US OB BPP W NON-STRESS (01/13/2024 11:39 AM EDT)Anatomical Region LateralityModalityOtherSpecimen (Source)Anatomical Location / Laterality Collection Method / VolumeCollection TimeReceived Time01/13/2024 11:39 AM EDT Narrative 01/13/2024 11:42 AM EDT The [facility] ?[address] ? [place] [address] ? Ultrasound Report ? Signed ? Patient: JUANPABLO REYNOSO ?MR#: [id number] ?? : 2000 ?Acct:[id number] ?? Age/Sex: 23 / F ?ADM Date: 01/13/24 ?? Loc: US ? Attending Dr: Deavn Tello D.O. ? Ordering Physician: Devan Tello D.O. ?? Date of Service: 01/13/24 ?? Procedure(s): US OB BPP w non-stress ?? Accession Number(s): [id number] ? cc: ADRYAN MOORE ; Devan Tello D.O. ? The [facility] ? [address] ? [place] [address] ? Patient Name: ?? JUANPABLO ??KRYSTA ? MRN: [facility]:[id number] ? date: 2000 ?Sex: F ?? Assigned Patient Location: [facility] ?? Current Patient Location: ? Accession/Order Number: [id number] ?? Exam Date: 01/13/2024 ??10:00 ?Report Date: 01/13/2024 ??11:39 ? At the request of: ?? DEVAN ??OMER ? Procedure: ??US OB BPP w non-stress ? EXAMINATION: US OB BPP w non-stress ? HISTORY: EXCESSIVE GROWTH O36.63X0 ? COMPARISON: No relevant comparison available. ? TECHNIQUE: Ultrasound biophysical profile was performed in the radiology ?? department. ? FINDINGS: ?? BREATHING MOVEMENTS: 2.0 ?? GROSS BODY MOVEMENTS: 2.0 ?? TONE: 2.0 ?? QUALITATIVE AMNIOTIC FLUID VOLUME: 2.0 ? PRESENTATION: CEPHALIC ?? HEART RATE: 150.0 bpm H.B./min ?? AMNIOTIC FLUID VOLUME: 13.6 cm cm ?? GESTATIONAL AGE: 38 weeks 0 days ? CONCLUSION: ? Total biophysical profile score: 8.0 ? Electronically authenticated by: ADRYAN ??GENIE ?? Date: 01/13/2024 ??11:39 ? Dictated By: ?Adryan Prescott M.D. ? Signed By: ?01/13/24 1142 ? DD/ 1139 ? TD/TT: ? Garland Maker: Procedure Note Radiology, Radiologist, - 01/13/2024 [place] [address] Ultrasound Report Signed Patient: TERE REYNOSO#: [id number] : 2000Acct:[id number] Age/Sex: M Date: 01/13/24 Loc: US Attending Dr: Devan Tello D.O. Ordering Physician: Devan Tello D.O. Date of Service: 01/13/24 Procedure(s): US OB BPP w non-stress Accession Number(s): [id number] cc: ADRYAN MOORE ; Devan Tello D.O. The [address] [address] Patient Name: JUANPABLO REYNOSO MRN: [facility]:[id number] date: 2000 Sex: F Assigned Patient Location: [facility] Current Patient Location: Accession/Order Number: [id number] Exam Date: 01/13/2024 10:00 Report Date: 01/13/2024 [...] M.D. Signed By:01/13/24 1142 DD/ 1139 TD/TT: Garland Maker: Authorizing ProviderResult TypeResult StatusCorey Omer DOCLINISYNC IMAGINGFinal Result documented in this encounter Visit Diagnoses Not on filedocumented in this encounter Additional Health Concerns Active ProblemsNoted DateDiagnosed DateOB Jqrdxrebe05/30/2023 documented as of this encounter Care Teams Team MemberRelationshipSpecialtyStart DateEnd Date Adryan Moore MD [address] [place] [address] PCP - GeneralFamily Medicine06/19/23 eDvan Tello DO [address] [place] [address] [place] [address] PCP - [facility]09/28/24documented as of this encounter
--- OUTSIDE RECORDS SUMMARY | 2025-08-02 15:09 | XMS_ITS | Encounter Summary ---
Author Organization [facility] Address [address] [place] [address] Care Team Providers Care Automatic Vulcanizing Lead Operator Name Role Phone Adryan Moore MD Primary Care Provider + [phone] Devan Tello DO Unavailable Encounter Details DateTypeDepartmentCare Team (Latest Contact Info)Kgdmsmqukxg34/21/2023Clinisync Result Encounter [facility] External Department Unsolicited Devan Tello, DO [address] [place] [address] Social History Tobacco UseTypesPacks/DayYears UsedDateSmoking Tobacco: Unknown Comments:Current smoker (richar quency unknown) Alcohol UseStandard Drinks/WeekCommentsNever0 (1 standard drink = 0.6 oz pure alcohol)PHQ-2AnswerDate RecordedPatient Health Questionnaire-2 [id number] CommentsYesSex and Gender InformationValueDate RecordedSex Assigned at BirthNot on fileLegal HiqSfsakw50/15/2023 6:47 PM EDTGender IdentityNot on file Sexual OrientationNot on filedocumented as of this encounter Functional Status * Over the past 2 weeks, how often have you been bothered by any of the following problems?QuestionAnswerDate of AssessmentAuthorLittle interest or pleasure in doing thingsNot at all06/27/2025 11:35 AM Cydney Go LPN Feeling down, depressed, or hopelessNot at all06/27/2025 11:35 AM Cydney Go LPNPatient Health Questionnaire-2 Mqhrz924 11:35 AM Cydney Go LPN documented as of this encounter Plan of Treatment DateTypeDepartmentCare Team (Latest Contact Info)Kavslqxunyt78/11/2025 10:30 AM ESTRoutine [facility] [address] [place] [address] Devan Tello, DO [address] [place] [address] documented as of this encounter Goals GoalPatient Goal TypeAssociated ProblemsRecent ProgressPatient-Stated?Author Reminders Care PlanOB RemindersNoOpen Scheduling, Backgrounddocumented as of this encounter Procedures Procedure NamePriorityDate/TimeAssociated DiagnosisCommentsUS OB CERVICAL LENGTH 09/17/2023 10:25 PM EST documented in this encounter Results * US OB CERVICAL LENGTH (09/17/2023 10:25 PM EST)Anatomical RegionLaterality ModalityOtherSpecimen (Source)Anatomical Location / LateralityCollection Method / VolumeCollection TimeReceived Time09/17/2023 10:25 PM EST Narrative 09/17/2023 10:27 PM EST [facility] ?[address] ? [place] [address] ? Ultrasound Report ? Signed ? Patient: JUANPABLO REYNOSO ?MR#: [id number] ?? : 2000 ?Acct:[id number] ?? Age/Sex: 23 / F ?ADM Date: 09/17/23 ?? Loc: US ? Attending Dr: Devan Tello D.O. ? Ordering Physician: Devan Tello D.O. ?? Date of Service: 09/17/23 ?? Procedure(s): US OB cervical length ?? Accession Number(s): [id number] ? cc: ADRYAN MOORE ; Devan Tello D.O. ? [facility] ? [address] ? [place] [address] ? Patient Name: ?? JUANPABLO ??KRYSTA ? MRN: [facility]:[id number] ? date: 2000 ?Sex: F ?? Assigned Patient Location: US ?? Current Patient Location: US ?? Accession/Order Number: [id number] ?? Exam Date: 09/17/2023 ??08:38 ?Report Date: 09/17/2023 ??22:25 ? At the request of: ?? DEVAN ??OMER ? Procedure: ??US OB cervical length ? EXAMINATION: US OB anatomy, US OB cervical length ? HISTORY: ANATOMY ? COMPARISON: No relevant comparison available. ? TECHNIQUE: Transabdominal sonographic examination was performed for ?? obstetrical ?? and evaluation. ? FINDINGS: ? Number: 1 ?? Heart Rate: 147.0 bpm H.B. /min ?? Amniotic Fluid Volume: Subjectively normal ?? Placental Location: POSTERIOR with lower margin 6.1 cm from os. ?? Cervix Length: 5.6 cm; closed. ? ANATOMY: Normal Structures -cerebellum, choroid plexus, cisterna magna, ?? lateral ?? cerebral ventricles, orbits, midline falx, hard palate, four-chamber heart, ?? RVOT, LVOT, stomach, kidneys, bladder, umbilical cord insertion into abdomen, ?? three-vessel cord, cervical spine, thoracic spine, lumbar spine, sacral spine, ? right upper extremity, left upper extremity, right lower extremity, left lower ? extremity. ? SUBOPTIMALLY SEEN: None ?? ABNORMALITIES: None ? BIOMETRY: ?? BPD: 5.2 cm 21 weeks 6 days ?? HC: 19.1 cm 21 weeks 2 days ?? AC: 16.7 cm 21 weeks 5 days ?? FL: 3.6 cm 21 weeks 3 days ?? EFW:435.4 grams; 69% ?? FL/AC: 21.7 ?? FL/BPD: 69.5 ?? HC/AC: 1.1 ? GESTATIONAL AGE: ?? Age by EDC: 21 weeks 1 days ?? TOMASZ by EDC: 01/27/2024 ?? Age by current US: 21 weeks 4 days ?? TOMASZ by current US: 01/24/2024 ? US/US OB cervical length ?? IMPRESSION: ? 1. Single live intrauterine with growth detailed above. ? Electronically authenticated by: MTATHEW ??STEPHENIE ?? Date: 09/17/2023 ??22:25 ? Dictated By: ?Matthew Grove M.D. ? Signed By: ?// 2227 ? DD/DT: 09/17/ 2225 ? TD/TT: ? Machinery Dismantler: Procedure Note Radiology, Radiologist, - 09/17/2023 [place] [address] Ultrasound Report Signed Patient: TERE REYNOSO#: [id number] : 2000Acct:[id number] Age/Sex: 23 / FADM Date: 09/17/23 Loc: US Attending Dr: Devan Tello D.O. Ordering Physician: Devan Tello D.O. Date of Service: 09/17/23 Procedure(s): US OB cervical length Accession Number(s): [id number] cc: ADRYAN MOORE ; Devan Tello D.O. The [place] [address] Patient Name: JUANPABLO REYNOSO MRN: [facility]:[id number] date: 2000 Sex: F Assigned Patient Location: US Current Patient Location: US Accession/Order Number: [id number] Exam Date: 09/17/2023 08:38 Report Date: 09/17/2023 [...] Grove M.D. Signed By:09/17/232226 DD/ 24 TD/TT: Machinery Dismantler: Authorizing ProviderResult TypeResult StatusCorey Omer DOCLINISYNC IMAGINGFinal Result documented in this encounter Visit Diagnoses Not on filedocumented in this encounter Additional Health Concerns Active ProblemsNoted DateDiagnosed DateOB Qmqdnvysv40/30/2023 documented as of this encounter Care Teams Team MemberRelationshipSpecialtyStart DateEnd Date Adryan Moore MD [address] [place] [address] PCP - GeneralFami Medicine06/19/23 Devan Tello DO [address] [place] [address] [place] [address] PCP - [facility]09/28/24documented as of this encounter
--- OUTSIDE RECORDS SUMMARY | 2025-08-02 15:09 | XMS_ITS | Encounter Summary ---
Author Organization [facility] Address [address] [place] [address] Care Team Providers Care Desulphuring Operator Name Role Phone Adryan Moore MD Primary Care Provider + [phone] Devan Tello DO Unavailable Encounter Details DateTypeDepartmentCare Team (Latest Contact Info)Jmsklymjvyv03/24/2024Clinisync Result Encounter [facility] External Department Unsolicited Devan Tello, DO [address] [place], [place] [address] Social History Tobacco UseTypesPacks/DayYears UsedDateSmoking Tobacco: Unknown Comments:Current smoker (richar quency unknown) Alcohol UseStandard Drinks/WeekCommentsNever0 (1 standard drink = 0.6 oz pure alcohol)PHQ-2AnswerDate RecordedPatient Health Questionnaire-2 Uofdw202 CommentsYesSex and Gender InformationValueDate RecordedSex Assigned at BirthNot on fileLegal UhpKzfobu17/15/2023 6:47 PM EDTGender IdentityNot on file Sexual OrientationNot on filedocumented as of this encounter Functional Status * Over the past 2 weeks, how often have you been bothered by any of the following problems?QuestionAnswerDate of AssessmentAuthorLittle interest or pleasure in doing thingsNot at all06/27/2025 11:35 AM Cydney Go LPN Feeling down, depressed, or hopelessNot at all06/27/2025 11:35 AM Cydney Go LPNPatient Health Questionnaire-2 Mhwhh696 11:35 AM Cydney Go LPN documented as of this encounter Plan of Treatment DateTypeDepartmentCare Team (Latest Contact Info)Pgyyzjyhziy65/11/2025 10:30 AM ESTRoutine [facility] [address] [place] [address] Devan Tello, DO [address] [place] [address] documented as of this encounter Goals GoalPatient Goal TypeAssociated ProblemsRecent ProgressPatient-Stated?Author Reminders Care PlanOB RemindersNoOpen Scheduling, Backgrounddocumented as of this encounter Procedures Procedure NamePriorityDate/TimeAssociated DiagnosisCommentsUS OB BPP W NON-YOCXMA9901/20/2024 10:29 AM EDT documented in this encounter Results * US OB BPP W NON-STRESS (01/20/2024 10:29 AM EDT)Anatomical Region LateralityModalityOtherSpecimen (Source)Anatomical Location / Laterality Collection Method / VolumeCollection TimeReceived Time01/20/2024 10:29 AM EDT Narrative 01/20/2024 10:32 AM EDT [facility] ?[address] ? [place] [address] ? Ultrasound Report ? Signed ? Patient: JUANPABLO REYNOSO ?MR#: [id number] ?? : 2000 ?Acct:[id number] ?? Age/Sex: 23 / F ?ADM Date: 01/20/24 ?? Loc: [facility] ??254-1 ? Attending Dr: Devan Tello D.O. ? Ordering Physician: Devan Tello D.O. ?? Date of Service: 01/20/24 ?? Procedure(s): US OB BPP w non-stress ?? Accession Number(s): [id number] ? cc: ADRYAN MOORE ; Devan Tello D.O. ? [facility] ? [address] ? [place] [address] ? Patient Name: ?? JUANPABLO ??KRYSTA ? MRN: [facility]:[id number] ? date: 2000 ?Sex: F ?? Assigned Patient Location: US ?? Current Patient Location: FB ?? Accession/Order Number: [id number] ?? Exam Date: 01/20/2024 ??10:00 ?Report Date: 01/20/2024 ??10:29 ? At the request of: ?? DEVAN ??OMER ? Procedure: ??US OB BPP w non-stress ? EXAMINATION: US OB BPP w non-stress ? HISTORY: EXCESSIVE GROWTH ? COMPARISON: Ultrasound OB biophysical 01/13/2024, ultrasound OB growth ?? 01/14/2024 ? TECHNIQUE: Ultrasound biophysical profile was performed in the radiology ?? department. ? BREATHING MOVEMENTS: 2.0 ?? GROSS BODY MOVEMENTS: 2.0 ?? TONE: 2.0 ?? QUALITATIVE AMNIOTIC FLUID VOLUME: 2.0 ? PRESENTATION: CEPHALIC ?? HEART RATE: 153.4 bpm bpm. ?? AMNIOTIC FLUID VOLUME: 16.4 cm ?? GESTATIONAL AGE: 39 weeks 0 days ? CONCLUSION: ? 1. Total biophysical profile score 8.0. ?? 2. Limited evaluation of the placenta but it appears aged with extensive ?? calcifications and internal cysts. ? Electronically authenticated by: MATTHEW ??STEPHENIE ?? Date: 01/20/2024 ??10:29 ? Dictated By: ?Matthew Grove M.D. ? Signed By: ?01/20/24 1032 ? DD/ 1029 ? TD/TT: ? Rug Touch Up Painter: Procedure Note Radiology, Radiologist, MD - 01/20/2024 [place] [address] Ultrasound Report Signed Patient: TERE REYNOSO#: [id number] : 2000Acct:[id number] Age/Sex: 23 / FADM Date: 01/20/24 Loc: [facility] 254-[address]: Devan Tello D.O. Ordering Physician: Devan Tello D.O. Date of Service: 01/20/24 Procedure(s): US OB BPP w non-stress Accession Number(s): [id number] cc: ADRYAN MOORE ; Devan Tello D.O. The [address], [place] [address] Patient Name: JUANPABLO REYNOSO MRN: [facility]:[id number] date: 2000 Sex: F Assigned Patient Location: US Current Patient Location: [facility] Accession/Order Number: [id number] Exam Date: 01/20/2024 10:00 Report Date: 01/20/2024 [...] M.D. Signed By:01/20/24 1032 DD/ 1029 TD/TT: Rug Touch Up Painter: Authorizing ProviderResult TypeResult StatusCorey Omer DOCLINISYNC IMAGINGFinal Result documented in this encounter Visit Diagnoses Not on filedocumented in this encounter Additional Health Concerns Active ProblemsNoted DateDiagnosed DateOB Ffuatfymp37/30/2023 documented as of this encounter Care Teams Team MemberRelationshipSpecialtyStart DateEnd Date Adryan Moore MD [address] [place] [address] [facility] - [facility] Devan Tello DO [address] [place] [address] [place] [address] PCP - [place] [address]/1/25documented as of this encounter
--- OUTSIDE RECORDS SUMMARY | 2025-08-02 15:09 | XMS_ITS | Encounter Summary ---
Author Organization [facility] Address [address] [place] [address] Care Team Providers Care Child Care Counselor Name Role Phone Adryan Moore MD Primary Care Provider + [phone] Deavn Tello DO Unavailable Encounter Details DateTypeDepartmentCare Team (Latest Contact Info)Tvkojpdupfg16/27/2024Clinisync Result Encounter [facility] External Department Unsolicited Devan Tello, DO [address] [facility] [address] [place], [place] [address] Social History Tobacco UseTypesPacks/DayYears UsedDateSmoking Tobacco: Unknown Comments:Current smoker (richar quency unknown) Alcohol UseStandard Drinks/WeekCommentsNever0 (1 standard drink = 0.6 oz pure alcohol)PHQ-2AnswerDate RecordedPatient Health Questionnaire-2 Fahni704 CommentsYesSex and Gender InformationValueDate RecordedSex Assigned at BirthNot on fileLegal XxbKbibpd25/15/2023 6:47 PM EDTGender IdentityNot on file Sexual OrientationNot on filedocumented as of this encounter Functional Status * Over the past 2 weeks, how often have you been bothered by any of the following problems?QuestionAnswerDate of AssessmentAuthorLittle interest or pleasure in doing thingsNot at all06/27/2025 11:35 AM Cydney Go LPN Feeling down, depressed, or hopelessNot at all06/27/2025 11:35 AM Cydney Go LPNPatient Health Questionnaire-2 Ifepl407 11:35 AM Cydney Go LPN documented as of this encounter Plan of Treatment DateTypeDepartmentCare Team (Latest Contact Info)Tuydpfykonv30/11/2025 10:30 AM ESTRoutine [facility] [address] [place] [address] Devan Tello, DO [address] [facility] [place] [address] documented as of this encounter Goals GoalPatient Goal TypeAssociated ProblemsRecent ProgressPatient-Stated?Author Reminders Care PlanOB RemindersNoOpen Scheduling, Backgrounddocumented as of this encounter Procedures Procedure NamePriorityDate/TimeAssociated DiagnosisCommentsUS OB BPP W NON-MZLWEF7912/23/2023 10:52 AM EDT documented in this encounter Results * US OB BPP W NON-STRESS (12/23/2023 10:52 AM EDT)Anatomical Region LateralityModalityOtherSpecimen (Source)Anatomical Location / Laterality Collection Method / VolumeCollection TimeReceived Time12/23/2023 10:52 AM EDT Narrative 12/23/2023 10:55 AM EDT [facility] ?[address] ? [place] [address] ? Ultrasound Report ? Signed ? Patient: JUANPABLO REYNOSO ?MR#: [id number] ?? : 2000 ?Acct:[id number] ?? Age/Sex: 23 / F ?ADM Date: 12/23/23 ?? Loc: US ? Attending Dr: Devan Tello D.O. ? Ordering Physician: Devan Tello D.O. ?? Date of Service: 12/23/23 ?? Procedure(s): US OB BPP w non-stress ?? Accession Number(s): [id number] ? cc: ADRYAN MOORE ; Devan Tello D.O. ? [facility] ? [address] ? [place] [address] ? Patient Name: ?? JUANPABLO ??KRYSTA ? MRN: [facility]:[id number] ? date: 2000 ?Sex: F ?? Assigned Patient Location: [facility] ?? Current Patient Location: ? Accession/Order Number: [id number] ?? Exam Date: 12/23/2023 ??10:00 ?Report Date: 12/23/2023 ??10:52 ? At the request of: ?? DEVAN ??OMER ? Procedure: ??US OB BPP w non-stress ? EXAMINATION: US OB BPP w non-stress ? HISTORY: Excessive growth ? COMPARISON: Ultrasound OB biophysical 12/16/2023 ? TECHNIQUE: Ultrasound biophysical profile was performed in the radiology ?? department. ? BREATHING MOVEMENTS: 2.0 ?? GROSS BODY MOVEMENTS: 2.0 ?? TONE: 2.0 ?? QUALITATIVE AMNIOTIC FLUID VOLUME: 2.0 ? PRESENTATION: CEPHALIC ?? HEART RATE: 132.4 bpm bpm. ?? AMNIOTIC FLUID VOLUME: 10.7 cm ?? GESTATIONAL AGE: 35 weeks 0 days ? CONCLUSION: ? Total biophysical profile score 8.0. ? Electronically authenticated by: MATTHEW ??STEPHENIE ?? Date: 12/23/2023 ??10:52 ? Dictated By: ?Matthew Grove M.D. ? Signed By: ?12/23/23 1055 ? DD/ 1052 ? TD/TT: ? Advertising Copywriter: Procedure Note Radiology, Radiologist, - 12/23/2023 [place] [address] Ultrasound Report Signed Patient: TERE REYNOSO#: [id number] : 2000Acct:[id number] Age/Sex: M Date: 12/23/23 Loc: US Attending Dr: Devan Tello D.O. Ordering Physician: Devan Tello D.O. Date of Service: 12/23/23 Procedure(s): US OB BPP w non-stress Accession Number(s): [id number] cc: ADRYAN MOORE ; Devan Tello D.O. The [address] [address] Patient Name: JUANPABLO REYNOSO MRN: [facility]:[id number] date: 2000 Sex: F Assigned Patient Location: [facility] Current Patient Location: Accession/Order Number: [id number] Exam Date: 12/23/2023 10:00 Report Date: 12/23/2023 [...] M.D. Signed By:12/23/23 1055 DD/ 1052 TD/TT: Advertising Copywriter: Authorizing ProviderResult TypeResult StatusCorey Omer DOCLINISYNC IMAGINGFinal Result documented in this encounter Visit Diagnoses Not on filedocumented in this encounter Additional Health Concerns Active ProblemsNoted DateDiagnosed DateOB Zzicyvwgp78/30/2023 documented as of this encounter Care Teams Team MemberRelationshipSpecialtyStart DateEnd Date Adryan Moore MD [address] [place] [address] [facility] - [facility]/23 Devan Tello DO [address] [place] [address] [place] [address] PCP - [facility]09/28/24documented as of this encounter
--- OUTSIDE RECORDS SUMMARY | 2025-08-02 15:09 | XMS_ITS | Encounter Summary ---
Author Organization [facility] Address [address] [place] [address] Care Team Providers Care Seat Mender Name Role Phone Adryan Moore MD Primary Care Provider + [phone] Devan Tello DO Unavailable Encounter Details DateTypeDepartmentCare Team (Latest Contact Info)Lokpgwwtuin90/20/2024Clinisync Result Encounter [facility] External Department Unsolicited Devan Tello, DO [address] [facility] [address] [place], [place] [address] Social History Tobacco UseTypesPacks/DayYears UsedDateSmoking Tobacco: Unknown Comments:Current smoker (richar quency unknown) Alcohol UseStandard Drinks/WeekCommentsNever0 (1 standard drink = 0.6 oz pure alcohol)PHQ-2AnswerDate RecordedPatient Health Questionnaire-2 Gfsrv167 CommentsYesSex and Gender InformationValueDate RecordedSex Assigned at BirthNot on fileLegal VajLlbjla70/15/2023 6:47 PM EDTGender IdentityNot on file Sexual OrientationNot on filedocumented as of this encounter Functional Status * Over the past 2 weeks, how often have you been bothered by any of the following problems?QuestionAnswerDate of AssessmentAuthorLittle interest or pleasure in doing thingsNot at all06/27/2025 11:35 AM Cydney Go LPN Feeling down, depressed, or hopelessNot at all06/27/2025 11:35 AM Cydney Go LPNPatient Health Questionnaire-2 Hnzdn814 11:35 AM Cydney Go LPN documented as of this encounter Plan of Treatment DateTypeDepartmentCare Team (Latest Contact Info)Rwazzlorrpm42/11/2025 10:30 AM ESTRoutine [facility] [address] [facility] [address] Devan Tello, DO [address] [facility] [place] [address] documented as of this encounter Goals GoalPatient Goal TypeAssociated ProblemsRecent ProgressPatient-Stated?Author Reminders Care PlanOB RemindersNoOpen Scheduling, Backgrounddocumented as of this encounter Procedures Procedure NamePriorityDate/TimeAssociated DiagnosisCommentsUS OB BPP W NON-YMFRAE2512/16/2023 10:53 AM EDT documented in this encounter Results * US OB BPP W NON-STRESS (12/16/2023 10:53 AM EDT)Anatomical Region LateralityModalityOtherSpecimen (Source)Anatomical Location / Laterality Collection Method / VolumeCollection TimeReceived Time12/16/2023 10:53 AM EDT Narrative 12/16/2023 10:55 AM EDT [facility] ?[address] ? [place] [address] ? Ultrasound Report ? Signed ? Patient: JUANPABLO REYNOSO ?MR#: [id number] ?? : 2000 ?Acct:[id number] ?? Age/Sex: 23 / F ?ADM Date: 12/16/23 ?? Loc: [facility] ??250-1 ? Attending Dr: Devan Tello D.O. ? Ordering Physician: Devan Tello D.O. ?? Date of Service: 12/16/23 ?? Procedure(s): US OB BPP w non-stress ?? Accession Number(s): [id number] ? cc: ADRYAN MOORE ; Devan Tello D.O. ? [facility] ? [address] ? [place] [address] ? Patient Name: ?? JUANPABLO ??KRYSTA ? MRN: [facility]:[id number] ? date: 2000 ?Sex: F ?? Assigned Patient Location: US ?? Current Patient Location: [facility]O ?? Accession/Order Number: [id number] ?? Exam Date: 12/16/2023 ??10:00 ?Report Date: 12/16/2023 ??10:53 ? At the request of: ?? DEVAN ??OMER ? Procedure: ??US OB BPP w non-stress ? EXAMINATION: US OB BPP w non-stress ? HISTORY: Excessive growth O36.63X0 ? COMPARISON: No relevant comparison available. ? TECHNIQUE: Ultrasound biophysical profile was performed in the radiology ?? department. non-reactive stress testing was performed by nursing staff ?? in ?? the birthing center. ? FINDINGS: ?? BREATHING MOVEMENTS: 2.0 ?? GROSS BODY MOVEMENTS: 2.0 ?? TONE: 2.0 ?? QUALITATIVE AMNIOTIC FLUID VOLUME: 2.0 ? PRESENTATION: CEPHALIC ?? HEART RATE: 121.6 bpm H.B./min ?? AMNIOTIC FLUID VOLUME: 15.7 cm cm ?? GESTATIONAL AGE: 34 weeks 0 days ? CONCLUSION: ? Total biophysical profile score: 8.0 ? Electronically authenticated by: ADRYAN ??GENIE ?? Date: 12/16/2023 ??10:53 ? Dictated By: ?Adryan Prescott M.D. ? Signed By: ?12/16/23 1055 ? DD/ 1053 ? TD/TT: ? Nurse Receptionist: Procedure Note Radiology, Radiologist, - 12/16/2023 [place] [address] Ultrasound Report Signed Patient: TERE REYNOSO#: [id number] : 2000Acct:[id number] Age/Sex: 23 / FADM Date: 12/16/23 Loc: [facility] 250-[address]: Devan Tello D.O. Ordering Physician: Devan Tello D.O. Date of Service: 12/16/23 Procedure(s): US OB BPP w non-stress Accession Number(s): [id number] cc: ADRYAN MOORE ; Devan Tello D.O. The [place] [id number] Patient Name: JUANPABLO REYNOSO MRN: [facility]:[id number] date: 2000 Sex: F Assigned Patient Location: US Current Patient [place] [facility] Accession/Order Number: [id number] Exam Date: 12/16/2023 10:00 Report Date: 12/16/2023 [...] M.D. Signed By:12/16/23 1055 DD/ 1053 TD/TT: Nurse Receptionist: Authorizing ProviderResult TypeResult StatusCorey Omer DOCLINISYNC IMAGINGFinal Result documented in this encounter Visit Diagnoses Not on filedocumented in this encounter Additional Health Concerns Active ProblemsNoted DateDiagnosed DateOB Zlurduqgf69/30/2023 documented as of this encounter Care Teams Team MemberRelationshipSpecialtyStart DateEnd Date Adryan Moore MD [address] [facility] [address] PCP - GeneralFamily Medicine06/19/23 Devan Tello DO [facility] [place] [address] PCP - [facility]09/28/24documented as of this encounter
--- OUTSIDE RECORDS SUMMARY | 2025-08-02 15:09 | XMS_ITS | Encounter Summary ---
Author Organization [facility] Address [address] [place] [address] Care Team Providers Care Seat Covers Trimmer Name Role Phone Adryan Moore MD Primary Care Provider + [phone] Devan Tello DO Unavailable Encounter Details DateTypeDepartmentCare Team (Latest Contact Info)Rrajbfnzwlg42/29/2024Clinisync Result Encounter [facility] External Department Unsolicited Devan Tello, DO [address] [facility] [address] [place], [place] [id number] Social History Tobacco UseTypesPacks/DayYears UsedDateSmoking Tobacco: Unknown Comments:Current smoker (richar quency unknown) Alcohol UseStandard Drinks/WeekCommentsNever0 (1 standard drink = 0.6 oz pure alcohol)PHQ-2AnswerDate RecordedPatient Health Questionnaire-2 Ksjga792 CommentsYesSex and Gender InformationValueDate RecordedSex Assigned at BirthNot on fileLegal DwiQwhebm40/15/2023 6:47 PM EDTGender IdentityNot on file Sexual OrientationNot on filedocumented as of this encounter Functional Status * Over the past 2 weeks, how often have you been bothered by any of the following problems?QuestionAnswerDate of AssessmentAuthorLittle interest or pleasure in doing thingsNot at all06/27/2025 11:35 AM Cydney Go LPN Feeling down, depressed, or hopelessNot at all06/27/2025 11:35 AM Cydney Go LPNPatient Health Questionnaire-2 Nlbcp324 11:35 AM Cydney Go LPN documented as of this encounter Plan of Treatment DateTypeDepartmentCare Team (Latest Contact Info)Eqeimtpgyqd19/11/2025 10:30 AM ESTRoutine [facility] [address] [place] [address] Devan Tello, DO [address] [facility] [place] [address] documented as of this encounter Goals GoalPatient Goal TypeAssociated ProblemsRecent ProgressPatient-Stated?Author Reminders Care PlanOB RemindersNoOpen Scheduling, Backgrounddocumented as of this encounter Procedures Procedure NamePriorityDate/TimeAssociated DiagnosisCommentsUS OB GROWTH 11/26/2023 11:15 AM EST documented in this encounter Results * US OB GROWTH (11/26/2023 11:15 AM EST)Anatomical RegionLateralityModalityOther Specimen (Source)Anatomical Location / LateralityCollection Method / Volume Collection TimeReceived Time11/26/2023 11:15 AM EST Narrative 11/26/2023 11:18 AM EST [facility] ?[address] ? [place] [address] ? Ultrasound Report ? Signed ? Patient: JUANPABLO REYNOSO ?MR#: [id number] ?? : 2000 ?Acct:[id number] ?? Age/Sex: 23 / F ?ADM Date: 11/26/23 ?? Loc: [facility] ? Attending Dr: Devan Tello D.O. ? Ordering Physician: Devan Tello D.O. ?? Date of Service: 11/26/23 ?? Procedure(s): US OB growth ?? Accession Number(s): [id number] ? cc: ADRYAN MOORE ; Devan Tello D.O. ? [facility] ? [address] ? [place] [address] ? Patient Name: ?? JUANPABLO ??KRYSTA ? MRN: [facility]:[id number] ? date: 2000 ?Sex: F ?? Assigned Patient Location: [facility] ?? Current Patient Location: [facility] ?? Accession/Order Number: [id number] ?? Exam Date: 11/26/2023 ??10:29 ?Report Date: 11/26/2023 ??11:15 ? At the request of: ?? DEVAN ??OMER ? Procedure: ??US OB growth ? EXAMINATION: US OB growth ? HISTORY: LGA ? COMPARISON: No relevant comparison available. ? FINDINGS: ? Heart Rate: 122.0 bpm ?? Amniotic Fluid Volume: 16.4 cm ?? Number: 1.0 ?? Position: Cephalic presentation, longitudinal lie ?? Maximum Vertical Pocket: ?? 4.8 cm cm ?? 6.0 cm cm ?? 3.9 cm cm ?? 1.7 cm cm ? BIOMETRY: ?? BPD: 8.1 cm cm; 32 weeks 3 days; 76% ?? HC: 29.9 cmcm; 33 weeks 1 days, 70% ?? AC: 29.4 cm cm; 33 weeks 3 days, 95% ?? FL: 6.1 cm cm; 31 weeks 5 days; 52.6 % % ?? EFW: 2048.2 grams, 4 lbs. 8 oz., 88% ?? FL/AC: 20.8 ?? FL/BPD: 75.8 ?? HC/AC: 1.0 ? GESTATIONAL AGE: ?? Age by EDC: 31 weeks 1 days ?? TOMASZ by EDC: 01/27/2024 ?? Age by US: 32 weeks 1 day ?? TOMASZ by US: 01/20/2024 ? US/US OB growth ?? IMPRESSION: ? Abdominal circumference at the 95th percentile ? Estimated weight 88 percentile ? Electronically authenticated by: ADRYAN ??WEST ?? Date: 11/26/2023 ??11:15 ? Dictated By: ?Adryan Prescott M.D. ? Signed By: ?11/26/23 1118 ? DD/ 1115 ? TD/TT: ? Diesel Locomotive Crane Operator: Procedure Note Radiology, Radiologist, MD - 11/26/2023 [place] [address] Ultrasound Report Signed Patient: MONTEZ REYNOSOAnia#: [id number] : 2000Acct:[id number] Age/Sex: 23 / FADM Date: 11/26/23 Loc: [facility] Attending Dr: Devan Tello D.O. Ordering Physician: Devan Tello D.O. Date of Service: 11/26/23 Procedure(s): US OB growth Accession Number(s): [id number] cc: ADRYAN MOORE ; Devan Tello D.O. [place] [address] Patient Name: JUANPABLO REYNOSO MRN: [facility]:[id number] date: 2000 Sex: F Assigned Patient Location: [facility] Current Patient Location: [facility] Accession/Order Number: [id number] Exam Date: 11/26/2023 10:29 Report Date: 11/26/2023 [...] M.D. Signed By:11/26/23 1118 DD/ 1115 TD/TT: Diesel Locomotive Crane Operator: Authorizing ProviderResult TypeResult StatusCorey Omer DOCLINISYERNIE IMAGINGFinal Result documented in this encounter Visit Diagnoses Not on filedocumented in this encounter Additional Health Concerns Active ProblemsNoted DateDiagnosed DateOB Ntoqanuly71/30/2023 documented as of this encounter Care Teams Team MemberRelationshipSpecialtyStart DateEnd Date Adryan Moore MD [address] [place] [address] [facility] - [facility] Devan Tello DO [address] [place] [address] [place] [address] PCP - [facility]09/28/24documented as of this encounter
--- OUTSIDE RECORDS SUMMARY | 2025-08-02 15:09 | XMS_ITS | Encounter Summary ---
Author Organization [facility] Address [address] [facility] [place] [address] Care Team Providers Care Director Cpg Name Role Phone Roberto Marie MD Primary Care Provider + [phone] Devyn Tello DO Unavailable Encounter Details DateTypeDepartmentCare Team (Latest Contact Info)Fhxfymaszmc60/05/2025amboo flowsheet [facility] OBGYLiss [address] [place] [address] Cydney Aviles PA [address] [place], [facility] Social History Tobacco UseTypesPacks/DayYears UsedDateSmoking Tobacco: Former Comments:Current smoker (richar quency unknown) Alcohol UseStandard Drinks/WeekCommentsNever0 (1 standard drink = 0.6 oz pure alcohol)PHQ-2AnswerDate RecordedPatient Health Questionnaire-2 Swqnr761 Estimated Date of AupzwcbdIysyqhbyAma20/28/2025Based on last menstrual period of 11/18/2024 (Approximate)Sex and Gender InformationValueDate RecordedSex Assigned at BirthNot on fileLegal EiuZpgjlt87/15/2023 6:47 PM EDTGender Identity Not on fileSexual OrientationNot on filedocumented as of this encounter Plan of Treatment DateTypeDepartmentCare Team (Latest Contact Info)Ewmfwdjvntm60/11/2025 10:30 AM ESTRoutine [facility] [address] [place] [address] Devyn Tello DO [address] [place] [address] documented as of this encounter Goals GoalPatient Goal TypeAssociated ProblemsRecent ProgressPatient-Stated?Author Reminders Care PlanOB RemindersNoOpen Scheduling, Backgrounddocumented as of this encounter Visit Diagnoses Not on filedocumented in this encounter Additional Health Concerns Active ProblemsNoted DateDiagnosed DateOB Yiqhbdqce38/30/2023 documented as of this encounter Care Teams Team MemberRelationshipSpecialtyStart DateEnd Date Roberto Marie MD [address] [place] [address] [facility] - [facility] Devyn Tello DO [address] [place] [address] PCP - [facility]09/28/24documented as of this encounter
--- OUTSIDE RECORDS SUMMARY | 2025-08-02 15:09 | XMS_ITS ---
Author Organization [facility] Source Produ ction (ClinicalSummary Clone) Address Unknown Care Team Providers Care Show Jumping Instructor Name Role Phone Unavailable Primary Care Physician Unavailab le Results * [UNITY] ANEUPLOIDY NIPT Performed by: Modern Message Component Value Range Date Fraction 9.5% 02/06/2025 07:33 pm UTCRh(D) NIPTRhD GLOTVNAK40/12/2025 07:33 pm UTCSex Chromosome AneuploidyNOT JOSXQCAE06/12/2025 07:33 pm UTCMonosomy XLOW RISK <1 in , 07:33 pm UTCTrisomy 13LOW RISK <1 in , 07:33 pm UTCTrisomy 18LOW RISK <1 in , 07:33 pm UTCTrisomy 21LOW RISK <1 in , 07:33 pm UTCFetal CuwLKCCNM51/12/2025 07:33 pm UTCPregnancy QiacsdxarLMVIMELAG54/12/2025 07:33 pm UTCFor detailed report, see PDFSee PDF 02/06/2025 07:33 pm UTC02/06/2025 07:33 pm UTC Social History Observation Value Start Date End Date
--- OUTSIDE RECORDS SUMMARY | 2025-08-02 15:09 | XMS_ITS | Encounter Summary ---
Author Organization [facility] Address [address] [place] [address] Care Team Providers Care Sephora Product Consultant Name Role Phone Adryan Moore MD Primary Care Provider + [phone] Devan Tello DO Unavailable Encounter Details DateTypeDepartmentCare Team (Latest Contact Info)Kqdwbxxyevn74/05/2024Clinisync Result Encounter [facility] External Department Unsolicited Devan Tello, DO [address] [facility] [address] [place], [place] [address] Social History Tobacco UseTypesPacks/DayYears UsedDateSmoking Tobacco: Unknown Comments:Current smoker (richar quency unknown) Alcohol UseStandard Drinks/WeekCommentsNever0 (1 standard drink = 0.6 oz pure alcohol)PHQ-2AnswerDate RecordedPatient Health Questionnaire-2 Qbzuq323 CommentsYesSex and Gender InformationValueDate RecordedSex Assigned at BirthNot on fileLegal WgkOyceop29/15/2023 6:47 PM EDTGender IdentityNot on file Sexual OrientationNot on filedocumented as of this encounter Functional Status * Over the past 2 weeks, how often have you been bothered by any of the following problems?QuestionAnswerDate of AssessmentAuthorLittle interest or pleasure in doing thingsNot at all06/27/2025 11:35 AM Cydney Go LPN Feeling down, depressed, or hopelessNot at all06/27/2025 11:35 AM Cydney Go LPNPatient Health Questionnaire-2 Gytja140 11:35 AM Cydney Go LPN documented as of this encounter Plan of Treatment DateTypeDepartmentCare Team (Latest Contact Info)Pzckmsluqvn39/11/2025 10:30 AM ESTRoutine [facility] [address] [place] [address] Devan Tello, DO [address] [place] [address] documented as of this encounter Goals GoalPatient Goal TypeAssociated ProblemsRecent ProgressPatient-Stated?Author Reminders Care PlanOB RemindersNoOpen Scheduling, Backgrounddocumented as of this encounter Procedures Procedure NamePriorityDate/TimeAssociated DiagnosisCommentsUS OB BPP W NON-KIPYGH1812/01/2023 3:47 PM EST documented in this encounter Results * US OB BPP W NON-STRESS (12/01/2023 3:47 PM EST)Anatomical Region LateralityModalityOtherSpecimen (Source)Anatomical Location / Laterality Collection Method / VolumeCollection TimeReceived Time12/01/2023 3:47 PM EST Narrative 12/01/2023 3:50 PM EST [facility] ?[address] ? [place] [address] ? Ultrasound Report ? Signed ? Patient: JUANPABLO REYNOSO ?MR#: [id number] ?? : 2000 ?Acct:[id number] ?? Age/Sex: 23 / F ?ADM Date: 12/01/23 ?? Loc: [facility] ??250-1 ? Attending Dr: Devan Tello D.O. ? Ordering Physician: Devan Tello D.O. ?? Date of Service: 12/01/23 ?? Procedure(s): US OB BPP w non-stress ?? Accession Number(s): [id number] ? cc: ADRYAN MOORE ; Devan Tello D.O. ? [facility] ? [address] ? [place] [address] ? Patient Name: ?? JUANPABLO ??KRYSTA ? MRN: [facility]:[id number] ? date: 2000 ?Sex: F ?? Assigned Patient Location: [facility] ?? Current Patient Location: [facility] ?? Accession/Order Number: [id number] ?? Exam Date: 12/01/2023 ??15:08 ?Report Date: 12/01/2023 ??15:47 ? At the request of: ?? DEVAN [...] PRESENTATION: CEPHALIC ?? HEART RATE: 135.0 bpm H.B./min ?? AMNIOTIC FLUID VOLUME: 18.2 cm cm ?? GESTATIONAL AGE: 31 weeks 6 days ? CONCLUSION: ? Total biophysical profile score: 8.0 ? Electronically authenticated by: ADRYAN ??GENIE ?? Date: 12/01/2023 ??15:47 ? Dictated By: ?Adryan Prescott M.D. ? Signed By: ?12/01/23 1550 ? DD/ 1547 ? TD/TT: ? Fire Protection Specialist: Procedure Note Radiology, Radiologist, - 12/01/2023 [place] [address] Ultrasound Report Signed Patient: TERE REYNOSO#: [id number] : 2000Acct:[id number] Age/Sex: 23 / FADM Date: 12/01/23 Loc: [facility] 250-[address]: Devan Tello D.O. Ordering Physician: Devan Tello D.O. Date of Service: 12/01/23 Procedure(s): US OB BPP w non-stress Accession Number(s): [id number] cc: ADRYAN MOORE ; Devan Tello D.O. The [address] [address] Patient Name: JUANPABLO REYNOSO MRN: [facility]:[id number] date: 2000 Sex: F Assigned Patient Location: [facility] Current Patient Location: [facility] Accession/Order Number: [id number] Exam Date: 12/01/2023 15:08 Report Date: 12/01/2023 [...] M.D. Signed By:12/01/23 1550 DD/ 1547 TD/TT: Fire Protection Specialist: Authorizing ProviderResult TypeResult StatusCorey Omer DOCLINISYNC IMAGINGFinal Result documented in this encounter Visit Diagnoses Not on filedocumented in this encounter Additional Health Concerns Active ProblemsNoted DateDiagnosed DateOB Vdwlxglan04/30/2023 documented as of this encounter Care Teams Team MemberRelationshipSpecialtyStart DateEnd Date Adryan Moore MD [address] [place] [address] PCP - GeneralFamily Medicine06/19/23 Devan Tello DO [address] [place] [address] [place] [address] PCP - [facility]09/28/24documented as of this encounter
--- OUTSIDE RECORDS SUMMARY | 2025-08-02 15:09 | XMS_ITS | Encounter Summary ---
Author Organization [facility] Address [address] [place] [address] Care Team Providers Care Equipment Specialist Name Role Phone Adryan Moore MD Primary Care Provider + [phone] Devan Tello DO Unavailable Encounter Details DateTypeDepartmentCare Team (Latest Contact Info)Afdvastvbxm17/18/2024Clinisync Result Encounter [facility] External Department Unsolicited Devan Tello, DO [address] [facility] [address] [place], [place] [address] Social History Tobacco UseTypesPacks/DayYears UsedDateSmoking Tobacco: Unknown Comments:Current smoker (richar quency unknown) Alcohol UseStandard Drinks/WeekCommentsNever0 (1 standard drink = 0.6 oz pure alcohol)PHQ-2AnswerDate RecordedPatient Health Questionnaire-2 Vyeuw393 CommentsYesSex and Gender InformationValueDate RecordedSex Assigned at BirthNot on fileLegal XhhXeuwde30/15/2023 6:47 PM EDTGender IdentityNot on file Sexual OrientationNot on filedocumented as of this encounter Functional Status * Over the past 2 weeks, how often have you been bothered by any of the following problems?QuestionAnswerDate of AssessmentAuthorLittle interest or pleasure in doing thingsNot at all06/27/2025 11:35 AM Cydney Go LPN Feeling down, depressed, or hopelessNot at all06/27/2025 11:35 AM Cydney Go LPNPatient Health Questionnaire-2 Xwkup500 11:35 AM Cydney Go LPN documented as of this encounter Plan of Treatment DateTypeDepartmentCare Team (Latest Contact Info)Yofwvytmxlk30/11/2025 10:30 AM ESTRoutine [facility] [address] [place] [address] Devan Tello, DO [address] [facility] [place] [address] documented as of this encounter Goals GoalPatient Goal TypeAssociated ProblemsRecent ProgressPatient-Stated?Author Reminders Care PlanOB RemindersNoOpen Scheduling, Backgrounddocumented as of this encounter Procedures Procedure NamePriorityDate/TimeAssociated DiagnosisCommentsUS OB GROWTH 01/14/2024 3:57 PM EDT documented in this encounter Results * US OB GROWTH (01/14/2024 3:57 PM EDT)Anatomical RegionLateralityModalityOther Specimen (Source)Anatomical Location / LateralityCollection Method / Volume Collection TimeReceived Time01/14/2024 3:57 PM EDT Narrative 01/14/2024 4:00 PM EDT [facility] ?[address] ? [place] [address] ? Ultrasound Report ? Signed ? Patient: JUANPABLO REYNOSO ?MR#: [id number] ?? : 2000 ?Acct:[id number] ?? Age/Sex: 23 / F ?ADM Date: 01/14/24 ?? Loc: [facility] ? Attending Dr: Devan Tello D.O. ? Ordering Physician: Devan Tello D.O. ?? Date of Service: 01/14/24 ?? Procedure(s): US OB growth ?? Accession Number(s): [id number] ? cc: ADYRAN MOORE ; Devan Tello D.O. ? [facility] ? [address] ? [place] [address] ? Patient Name: ?? JUANPABLO ??KRYSTA ? MRN: [facility]:[id number] ? date: 2000 ?Sex: F ?? Assigned Patient Location: [facility] ?? Current Patient Location: [facility] ?? Accession/Order Number: [id number] ?? Exam Date: 01/14/2024 ??15:09 ?Report Date: 01/14/2024 ??15:57 ? At the request of: ?? DEVAN ??OMER ? Procedure: ??US OB growth ? EXAMINATION: US OB growth ? HISTORY: LGA ; rapid change in growth percentile ? COMPARISON: Ultrasound OB growth 01/13/2024 ? FINDINGS: ? Heart Rate: 141.0 bpm ?? Number: 1.0 ?? Position: CEPHALIC ?? Amniotic Fluid Volume: 11.8 cm ?? Maximum Vertical Pocket: 5.5 cm ? BIOMETRY: ?? BPD: 9.4 cm cm; 38 weeks 3 days; 80% ?? HC: 34.6 cmcm; 40 weeks 0 days ; 76% ?? AC: 37.7 cm cm; 41 weeks 5 days; >97% FL: 7.5 cm cm; 38 weeks 2 days; 57% ?? EFW: 4074.2 grams; >97% FL/AC: 19.8 ?? FL/BPD: 79.3 ?? HC/AC: 0.9 ? GESTATIONAL AGE: ?? Age by EDC: 38 weeks 1 days ?? TOMASZ by EDC: 01/27/2024 ?? Age by US: 39 weeks 4 days ?? TOMASZ by US: 01/17/2024 ? US/US OB growth ?? IMPRESSION: ? 1. Single live intrauterine with growth detailed above. ?? 2. Estimated weight is greater than 97th percentile. ? Electronically authenticated by: MATTHEW ??STEPHENIE ?? Date: 01/14/2024 ??15:57 ? Dictated By: ?Matthew Grove M.D. ? Signed By: ?01/14/24 1600 ? DD/ 1557 ? TD/TT: ? Hose Coupling Joiner: Procedure Note Radiology, Radiologist, MD - 01/14/2024 [place] [address] Ultrasound Report Signed Patient: MONTEZ REYNOSOAnia#: [id number] : 2000Acct:[id number] Age/Sex: 23 / FADM Date: 01/14/24 Loc: [facility] Attending Dr: Devan Tello D.O. Ordering Physician: Devan Tello D.O. Date of Service: 01/14/24 Procedure(s): US OB growth Accession Number(s): [id number] cc: ADRYAN MOORE ; Devan Tello D.O. [place] [address] Patient Name: JUANPABLO REYNOSO MRN: [facility]:[id number] date: 2000 Sex: F Assigned Patient [facility]: [facility] Current Patient Location: [facility] Accession/Order Number: [id number] Exam Date: 01/14/2024 15:09 Report Date: 01/14/2024 [...] M.D. Signed By:01/14/24 1600 DD/ 1557 TD/TT: Hose Coupling Joiner: Authorizing ProviderResult TypeResult StatusCorey Omer DOCLINISYNC IMAGINGFinal Result documented in this encounter Visit Diagnoses Not on filedocumented in this encounter Additional Health Concerns Active ProblemsNoted DateDiagnosed DateOB Osggdmoem55/30/2023 documented as of this encounter Care Teams Team MemberRelationshipSpecialtyStart DateEnd Date Adryan [place] MD [address] [place] [address] PCP - Generalmi Medicine06/19/23 Devan Tello DO [address] [place], [place] [address] [place] [address] PCP - [facility]09/28/24documented as of this encounter
--- OUTSIDE RECORDS SUMMARY | 2025-08-02 15:09 | XMS_ITS | Clinical Summary ---
Author Organization [facility] Address [address] [place] [address] Care Team Providers Care Material Checker Name Role Phone Roberto Marie MD Primary Care Provider + [phone] Devyn Tello DO Unavailable Allergies Active AllergyReactionsCriticalityNoted DateCommentsSulfa AntibioticsFever,Hives ,TomiKbb7406/17/2018 Medications MedicationSigDispense QuantityRefillsLast FilledStart DateEnd DateStatus [place]ws[place]-3 ( GUMMIES/DHA & FA PO) Take 1 each by mouth DailyActive Active Problems ProblemNoted DateDiagnosed DateThird trimester ([facility]) weeks gestation of ([facility])06/20/2025Estimated Date of JjrfvunxHkuknufsXdf97/28/2025Based on last menstrual period of 11/18/2024 (Approximate) Encounters DateTypeDepartmentCare BkvnJlpiuybjvth70/05/2025 9:30 AM ESTRoutine [facility] [address] [place] [address] Cydney Aviles PA Third trimester ([facility]); 36 weeks gestation of ([facility])5Bamboo [place] [address] Cydney Aviles PA 07/26/20253323Ruvbod77/21/2025 9:00 AM EDTRoutine [facility] FISHN Denys [facility] [place] [address] Devyn Tello DO Third trimester ([facility]); 34 weeks gestation of ([facility])07/18/2025amboo flowsheet [facility] [place] [facility] [place] [address] Devyn Tello DO 07/17/20250243Aniyxu90/14/3908Hpmixc24/08/2025 9:20 AM EDTRoutine [facility] [place] [facility] [place] [address] Nichole Stallings NP Third trimester ([facility]); 32 weeks gestation of ([facility])07/05/2025amboo flowsheet [facility] [address] [place] [address] [place] [address] Nichole Stallings NP 06/29/2025bstract [facility] [address] [place] [address] Cydney Alexis LPN 06/28/20254371Jweqwb03/29/2025Patient Outreach [facility] [address] [place] [address] Cydney Alexis LPN 06/20/2025 9:30 AM EDTRoutine [facility] FISHN Denys [facility] [place] [address] Devyn Tello DO Third trimester ([facility]); 30 weeks gestation of ([facility])06/20/2025 9:00 AM EDTAncillary Procedure [facility] FISHN [address] [facility] [place] [address] size inconsistent with dates ([facility])06/13/20255816Ovkozs77/09/2025 10:20 AM EDTRoutine [facility] [place] [address] Devyn Tello DO Third trimester ([facility]); 28 weeks gestation of ([facility]); size inconsistent with dates ([facility])06/06/2025amboo flowsheet [facility] [place] [facility] [place] [address] Devyn Tello DO 05/26/2025linisync Result Encounter [facility] External Department Unsolicited Cydney Aviles PA 05/16/2025 9:20 AM EDTRoutine [facility] [place] [facility] [place] [address] Cydney Aviles PA 24 weeks gestation of ([facility]); Second trimester ([facility]); Subchorionic hemorrhage of placenta, antepartum ([facility]); Diabetes mellitus agxtqqvyk57/19/2025Bamboo flowsheet [facility] [address] [place] [address] [place] [address] Cydney Aviles PA 05/09/2025Travelfrom Last 3 Months Family History Medical HistoryRelationNameCommentsCancerMaternal GrandfatherRickprostate Cervical cancerMaternal Grandmotherhigh blood pressureMaternal GrandmotherCancer MotherTracyDiabetesMotherTracyDiabetesMother's SisterTammyLung cancerPaternal GrandmotherRelationNameStatusCommentsMaternal GrandfatherRickMaternal GrandmotherMotherTracyMother's SisterTammyPaternal Grandmother Social History Tobacco UseTypesPacks/DayYears UsedDateSmoking Tobacco: Former Tobacco Cessation:Counseling Given: Not Answered Comments:Current smoker (frequency unknown) Alcohol UseStandard Drinks/WeekCommentsNever0 (1 standard drink = 0.6 oz pure alcohol)PHQ-2AnswerDate RecordedPatient Health Questionnaire-2 Oddsx775 Estimated Date of KsuslatlVohxjatuNbd74/28/2025Based on last menstrual period of 11/18/2024 (Approximate)Sex and Gender InformationValueDate RecordedSex Assigned at BirthNot on fileLegal WljRhexaw67/15/2023 6:47 PM EDTGender Identity Not on fileSexual OrientationNot on file Last Filed Vital Signs Vital SignReadingTime TakenCommentsBlood Lyfxtlok271/8208/02/2025 9:35 AM EST Pulse--Temperature--Respiratory Rate--Oxygen Saturation--Inhaled Oxygen Concentration--Vlvwsz188 kg (227 lb 8 oz)08/02/2025 9:35 AM YUSZxbbqt950.1 cm (5' 5 )03/08/2024 11:37 AM EDTBody Mass Index37.8603/08/2024 11:37 AM EDT Plan of Treatment DateTypeDepartmentCare Team (Latest Contact Info)Bxkmnlydtnc52/11/2025 10:30 AM ESTRoutine [facility] [address] [facility] [place] [address] Devyn Tello DO [address] [facility] [place] [address] Health MaintenanceDue DateLast DoneCommentsCOVID-19 Vaccine ( season) 2025Influenza Vaccine (#1)2025Pneumococcal Vaccine: Pediatrics (0 to 5 Years) and At-Risk Patients (6 to 64 Years)Aged OutNo longer eligible based on patient's age to complete this topic Goals GoalPatient Goal TypeAssociated ProblemsRecent ProgressPatient-Stated?Author Reminders Care PlanOB RemindersNoOpen Scheduling, Background Procedures Procedure NamePriorityDate/TimeAssociated DiagnosisCommentsPOCT URINALYSIS KFPFUIUTQozvrrv30/05/2025 9:46 AM EST Third trimester ([facility]) POCT URINALYSIS FVHWUGQDEajnwit54/21/2025 9:22 AM EDT 34 weeks gestation of ([facility]) POCT URINALYSIS CRXLHJMAVwihizw45/08/2025 9:43 AM EDT 32 weeks gestation of ([facility]) POCT URINALYSIS QZENZNVPLhpcavn22/23/2025 9:36 AM EDT Third trimester ([facility]) 30 weeks gestation of ([facility]) US OB FOLLOW UP TRANSABDOMINAL YGZLXACRFcjpumy91/23/2025 9:18 AM EDT size inconsistent with dates ([facility]) POCT URINALYSIS LMYDEOAYSpymhko72/09/2025 10:29 AM EDT Third trimester ([facility]) ALL CBC WITH AUTO COQJYpnqocl53/29/2025 8:48 AM EDT GLUCOSE 1 YBVUTsqpkhi01/29/2025 8:48 AM EDT POCT URINALYSIS MDDRSHRSLboirab22/19/2025 9:46 AM EDT 24 weeks gestation of ([facility]) Second trimester ([facility]) from Last 3 Months Results * POCT urinalysis dipstick manually resulted (08/02/2025 9:46 AM EST) Only the most recent of6 resultswithin the time period is included. ComponentValueRef RangeTest MethodAnalysis TimePerformed AtPathologist Signature Color, UAYellowClarity, UAClearGlucose, UANegativeNegative - 1999(110) ++++ mg/dLBilirubin, UANegativeNegative - 4(70) +++ mg/dLKetones, UANegativeNegative - 160(16) ++++ mg/dLSpec Grav, UA1.0151 - 1.03Blood, UANegativeNegative - 50 Cedric/mcLpH, UA6.05 - 9Protein, UANegativeNegative - 2000(20) ++++ mg/dL Urobilinogen, UA0.20.2 - 12 mg/dLLeukocytes, UANegativeNegative - 500+++ Alessandro/mcL Nitrite, UANegativeNegative - PositiveSpecimen (Source)Anatomical Location / LateralityCollection Method / VolumeCollection TimeReceived WwcmNdbuy89/05/2025 9:46 AM EST Narrative Authorizing ProviderResult TypeResult StatusCydney Aviles [facility] TEST ENTER/EDIT ORDERABLESFinal Result * US OB follow up transabdominal approach (06/20/2025 9:18 AM EDT)Anatomical RegionLateralityModalityBodyUltrasoundSpecimen (Source)Anatomical Location / LateralityCollection Method / VolumeCollection TimeReceived Time06/20/2025 11:57 AM EDT Impressions 06/20/2025 12:47 PM EDT Single, live intrauterine , current sonographic age of 31 weeks and 1 day, with an estimated date of delivery of August 21, 2025 (prior TOMASZ August 29, 2025). * ??Estimated Weight (g) by Percentile is based upon an accurate estimated age based onlast menstrual period. ?? TRANSCRIBED BY: ? ELECTRONICALLY SIGNED BY: Addi Cain MD Narrative 06/20/2025 12:47 PM EDT FINDINGS: Comparison made with prior exam April 18, 2025. A single, live intrauterine is present with normal cardiac rate of 148 beats per minute. Normal activity and amniotic fluid volume. Amniotic fluid index is 17 cm. ??Morphology is grossly normal. The current sonographic age is 31 weeks and 1 day, based on the following measurements: ?BPD ? 7.6 cm (30 weeks, 2 days) ?Head Circumference ?28.9 cm (31 weeks, 6 days) ?Abdominal Circumference ?28.5 cm (32 weeks, 3 days) ?Femur Length ?5.8 cm (30 weeks, 1 day) ?Presentation ? Cephalic ? Weight (g) by Percentile ??70.9 % * These measurements result in an estimated date of delivery of August 21, 2025. ?? The current estimated weight is 1784 grams (3 pounds, 15 ounces). ?? Procedure Note Addi Cain MD - 06/20/2025 [...] BY: ELECTRONICALLY SIGNED BY: Addi Cain MD Authorizing ProviderResult TypeResult StatusCorey Omer [facility] US PROCEDURES Final Result * GLUCOSE 1 HOUR (05/26/2025 8:48 AM EDT)ComponentValueRef RangeTest Method Analysis TimePerformed AtPathologist SignatureGLUCOSE 1 ZDCX470<130 mg/dLTBH Specimen (Source)Anatomical Location / LateralityCollection Method / Volume Collection TimeReceived Time05/26/2025 8:48 AM EDT05/26/2025 8:49 AM EDT Narrative CLINISYNC - 05/26/2025 9:03 AM EDT Authorizing ProviderResult TypeResult StatusCydney Madbury [facility] BLOOD ORDERABLES Final ResultPerforming OrganizationAddressCity/State/ZIP CodePhone Number [facility]IN[facility] * (ABNORMAL) ALL CBC WITH AUTO DIFF (05/26/2025 8:48 AM EDT)ComponentValueRef RangeTest MethodAnalysis TimePerformed AtPathologist SignatureTBH WBC9.64.0 - 11.0 10 3/uLTBHTBH RBC3.68(L)4.20 - 5.40 10 6/uLTBHTBH HGB11.6(L)12.0 - 16.0 g/dLTBHTBH HCT33.9(L)36.0 - 48.0 %TBHTBH MCV92.181.0 - 99.0 fLTBHTBH MCH31.5 26.7 - 34.0 pgTBHTBH MCHC34.229.9 - 35.2 g/dLTBHTBH RDW11.911.0 - 15.0 %TBHTBH HSG840052 - 450 10 3/uLTBHTBH MPV10.89.5 - 13.5 fLTBHNEUTROPHILS PERCENT AUTO 78.6(H)43.0 - 75.0 %TBHLYMPHOCYTES PERCENT AUTO12.4(L)20.5 - 60.0 %TBH MONOCYTES PERCENT AUTO5.81.7 - 12.0 %TBHTBH EO %2.30.9 - 7.0 %TBHBASOPHILS PERCENT AUTO0.30.2 - 2.0 %TBHIMMATURE GRANULOCYTES PCT AUTO0.6(H)0.0 - 0.5 % TBHNEUTROPHILS ABSOLUTE AUTO7.5(H)1.4 - 6.5 10 3/uLTBHLYMPHOCYTES ABSOLUTE AUTO1.21.2 - 3.8 10 3/uLTBHMONOCYTES ABSOLUTE AUTO0.60.3 - 0.8 10 3/uLTBHTBH EO #0.20.0 - 0.7 10 3/uLTBHBASOPHILS ABSOLUTE AUTO0.00.0 - 0.1 10 3/uLTBH IMMATURE GRANULOCYTES ABS AUTO0.06(H)0.00 - 0.03 10 3/uLTBHSpecimen (Source) Anatomical Location / LateralityCollection Method / VolumeCollection Time Received Time05/26/2025 8:48 AM EDT05/26/2025 8:49 AM EDT Narrative CLIN[facility]YNC - 05/26/2025 9:06 AM EDT Authorizing ProviderResult TypeResult StatusAmy Madbury PACLINISYNCFinal Result Performing OrganizationAddressCity/State/ZIP CodePhone Number [facility] from Last 3 Months Additional Health Concerns Active ProblemsNoted DateDiagnosed DateOB Jqassilmo28/30/2023 Insurance * Guarantor: Breonna Reynoso AAccount TypeRelation to PatientDate of PhoneBilling AddressPersonal/LcsibiIvam[address] [address] Care Teams Team MemberRelationshipSpecialtyStart DateEnd Date Roberto Marie MD [address] [place] [address] [facility] - [facility] Devyn Tello DO [address] [place] [address] [place] [address] PCP - [facility]09/28/24
--- OUTSIDE RECORDS SUMMARY | 2025-08-02 15:09 | XMS_ITS | Clinical Summary ---
Author Organization [employer] tem Address [id number] [address] [place] [address] Care Team Providers Care Fagot Maker Name Role Phone Roberto Marie MD Primary Care Provider [phone] Allergies Active AllergyReactionsCriticalityNoted DateCommentsSulfa (Sulfonamide Antibiotics)Rash,YhyjxMzu53/20/2018 Medications No known medications Active Problems No known active problems Immunizations ImmunizationAdministration DatesNext DueDTaP, Siyrwhsxppj77/25/2007,05/23/2005, 03/18/2002,01/12/2002,2001Hep B, Adolescent or Pjehkfyta59/21/2002, 2001,2001HiB05/23/2005,03/18/2002,01/12/2002,2001IPV02/19/2007 ,05/23/2005,08/14/2002,01/12/2002,2001MMR11/16/2002MMRV02/19/2007Tdap 05/04/20140883Ndraxwdjk36/15/2003 Family History Medical HistoryRelationNameCommentsNo Known ProblemsFatherNo Known Problems MotherRelationNameStatusCommentsFatherAliveMotherAlive Social History Tobacco UseTypesPacks/DayYears UsedDateSmoking Tobacco: FormerCigarettes Smokeless Tobacco: Never Tobacco Cessation:Counseling Given: Not Answered Alcohol UseStandard Drinks/WeekCommentsNo0 (1 standard drink = 0.6 oz pure alcohol)AUDIT-CAnswerDate RecordedFrequency of Alcohol ConsumptionNever 06/27/2019Average Number of DrinksNot on file06/27/2019Frequency of Binge DrinkingNot on file06/27/2019Overall Financial Resource Strain (CARDIA)Answer Date RecordedHow hard is it for you to pay for the very basics like food, housing, medical care, and heating?Not hard at all05/23/2024HQ-2AnswerDate RecordedTotal Yatff0743PRAPARE - TransportationAnswerDate RecordedIn the past 12 months, has lack of transportation kept you from medical appointments or from getting medications?No05/23/2024In the past 12 months, has lack of transportation kept you from meetings, work, or from getting things needed for daily living?No05/23/2024Housing InstabilityAnswerDate RecordedAre you worried or concerned that in the next two months you may not have stable housing that you own, rent or stay in as a part of a household?No4ChildcareAnswer Date McdmxdmdBzuikzaeqOvwgjtj02/12/2019EmploymentAnswerDate RecordedEmployment Zwlrwtv4103/09/2019Hunger ScreeningAnswerDate RecordedWithin the past 12 months we worried whether our food would run out before we got money to buy more.Never True05/23/2024Within the past 12 months the food we bought just didn't last and we didn't have money to get more.Never True4Purpose - LifeAnswerDate RecordedPurpose and direction in peftDiooupm94/22/2021CommentsNoSex and Gender InformationValueDate RecordedSex Assigned at BirthNot on fileLegal Sex Zujqaq9505/03/2015 11:58 AM EDTGender IdentityNot on fileSexual OrientationNot on file Last Filed Vital Signs Vital SignReadingTime TakenCommentsBlood Xhjinwtc419/80004/10/2023 9:46 AM EDT Nrnwd0076/14/2023 9:46 AM EAOZvmzbhjcprw76.9 ??C (98.5 ??F)04/10/2023 9:46 AM EDTRespiratory Urop830304/10/2023 9:46 AM EDTOxygen Wzfdcxqxtu94%09/04/2022 2:12 PM ESTInhaled Oxygen Concentration--Qiihmx53.8 kg (215 lb 8 oz)04/10/2023 9:46 AM PRINixamb964.1 cm (5' 5 )04/10/2023 9:46 AM EDTBody Mass Index35.8604/10/2023 9:46 AM EDT Plan of Treatment Health MaintenanceDue DateLast DoneCommentsChlamydia Lompvafsv2001Tobacco Qwexqkzgw46/15/2013Adult BMI Ypmsntjqs08epression Screening TaP,Tdap and Td Vaccines (7 - Td or Tdap)05/04/2024 05/04/2014, 02/19/2007, 05/23/2005, Additional history existsInfluenza Vaccine 05/29/2025Pap Smear Medical Devices Not on file Insurance * Guarantor: Breonna Reynosocount TypeRelation to PatientDate of PhoneBilling AddressPersonal/UbcfkzBwfc2000 [address] [id number] * Guarantor: Maya Maria TypeRelation to PatientDate of BirthPhone Billing AddressPersonal/EvsssnZlpdgp89/[birth year][address] [address] Care Teams Team MemberRelationshipSpecialtyStart DateEnd Date Roberto Marie MD [address] Provider retired 12/27/24 [place] [address] [facility]
--- OUTSIDE RECORDS SUMMARY | 2025-08-02 15:09 | XMS_ITS | Encounter Summary ---
Author Organization [facility] Address [address] [place] [address] Care Team Providers Care Plumber Maintenance Name Role Phone Adryan Moore MD Primary Care Provider + [phone] Devan Tello DO Unavailable Encounter Details DateTypeDepartmentCare Team (Latest Contact Info)Miwcjyjpqbw71/21/2023Clinisync Result Encounter [facility] External Department Unsolicited Devan Tello, DO [address] [facility] [place] [address] Social History Tobacco UseTypesPacks/DayYears UsedDateSmoking Tobacco: Unknown Comments:Current smoker (richar quency unknown) Alcohol UseStandard Drinks/WeekCommentsNever0 (1 standard drink = 0.6 oz pure alcohol)PHQ-2AnswerDate RecordedPatient Health Questionnaire-2 Lgwkh871 CommentsYesSex and Gender InformationValueDate RecordedSex Assigned at BirthNot on fileLegal RqnZaejkg04/15/2023 6:47 PM EDTGender IdentityNot on file Sexual OrientationNot on filedocumented as of this encounter Functional Status * Over the past 2 weeks, how often have you been bothered by any of the following problems?QuestionAnswerDate of AssessmentAuthorLittle interest or pleasure in doing thingsNot at all06/27/2025 11:35 AM Cydney Go LPN Feeling down, depressed, or hopelessNot at all06/27/2025 11:35 AM Cydney Go LPNPatient Health Questionnaire-2 Tliyb492 11:35 AM Cydney Go LPN documented as of this encounter Plan of Treatment DateTypeDepartmentCare Team (Latest Contact Info)Vrkptftvhhb04/11/2025 10:30 AM ESTRoutine [facility] [address] [facility] [place] [address] Devan Tello, DO [address] [facility] [place] [address] documented as of this encounter Goals GoalPatient Goal TypeAssociated ProblemsRecent ProgressPatient-Stated?Author Reminders Care PlanOB RemindersNoOpen Scheduling, Backgrounddocumented as of this encounter Procedures Procedure NamePriorityDate/TimeAssociated DiagnosisCommentsUS OB ANATOMY 09/17/2023 10:25 PM EST documented in this encounter Results * US OB ANATOMY (09/17/2023 10:25 PM EST)Anatomical RegionLateralityModality OtherSpecimen (Source)Anatomical Location / LateralityCollection Method / VolumeCollection TimeReceived Time09/17/2023 10:25 PM EST Narrative 09/17/2023 10:27 PM EST [facility] ?[address] ? [place] [address] ? Ultrasound Report ? Signed ? Patient: JUANPABLO REYNOSO ?MR#: [id number] ?? : 2000 ?Acct:[id number] ?? Age/Sex: 23 / F ?ADM Date: 09/17/23 ?? Loc: US ? Attending Dr: Devan Tello D.O. ? Ordering Physician: Devan Tello D.O. ?? Date of Service: 09/17/23 ?? Procedure(s): US OB anatomy ?? Accession Number(s): [id number] ? cc: ADRYAN MOORE ; Devan Tello D.O. ? [facility] ? [address] ? [place] [address] ? Patient Name: ?? JUANPABLO ??KRYSTA ? MRN: [facility]:[id number] ? date: 2000 ?Sex: F ?? Assigned Patient Location: US ?? Current Patient Location: US ?? Accession/Order Number: [id number] ?? Exam Date: 09/17/2023 ??08:38 ?Report Date: 09/17/2023 ??22:25 ? At the request of: ?? DEVAN ??OMER ? Procedure: ??US OB anatomy ? EXAMINATION: US OB anatomy, US OB [...] by current US: 01/24/2024 ? US/US OB anatomy ?? IMPRESSION: ? 1. Single live intrauterine with growth detailed above. ? Electronically authenticated by: MATTHEW ??STEPHENIE ?? Date: 09/17/2023 ??22:25 ? Dictated By: ?Matthew Grove M.D. ? Signed By: ?12// 2227 ? DD/ 2225 ? TD/TT: ? Rabbit Breeder: Procedure Note Radiology, Radiologist, - 09/17/2023 [place] [address] Ultrasound Report Signed Patient: MONTEZ REYNOSOR#: [id number] : 2000Acct:[id number] Age/Sex: 23 / FADM Date: 09/17/23 Loc: US Attending Dr: Devan Tello D.O. Ordering Physician: Devan Tello D.O. Date of Service: 09/17/23 Procedure(s): US OB anatomy Accession Number(s): [id number] cc: ADRYAN MOORE ; Devan Tello D.O. The [address] [id number] Patient Name: JUANPABLO REYNOSO MRN: [id number] date: 2000 Sex: F Assigned Patient Location: US Current Patient Location: US Accession/Order Number: [id number] Exam Date: 09/17/2023 08:38 Report Date: 09/17/2023 [...] Grove M.D. Signed By:09/17/232226 DD/ 24 TD/TT: Rabbit Breeder: Authorizing ProviderResult TypeResult StatusCorey Omer DOCLINISYNC IMAGINGFinal Result documented in this encounter Visit Diagnoses Not on filedocumented in this encounter Additional Health Concerns Active ProblemsNoted DateDiagnosed DateOB Xlbvjdxmu52/30/2023 documented as of this encounter Care Teams Team MemberRelationshipSpecialtyStart DateEnd Date Adryan Moore MD [address] [place] [address] PCP - GeneralFamily Medicine06/19/23 Devan Tello DO [address] [place] [address] [place] [address] PCP - [facility]09/28/24documented as of this encounter
--- OUTSIDE RECORDS SUMMARY | 2025-08-02 15:09 | XMS_ITS | Encounter Summary ---
Author Organization [facility] Address [address] [place] [address] Care Team Providers Care Early Childhood Aide Classroom Name Role Phone Adryan Moore MD Primary Care Provider + [phone] Devan Tello DO Unavailable Encounter Details DateTypeDepartmentCare Team (Latest Contact Info)Qglxzspkzhk77/10/2024Clinisync Result Encounter [facility] External Department Unsolicited Devan Tello, DO [address] [facility] [address] [place], [place] [id number] Social History Tobacco UseTypesPacks/DayYears UsedDateSmoking Tobacco: Unknown Comments:Current smoker (richar quency unknown) Alcohol UseStandard Drinks/WeekCommentsNever0 (1 standard drink = 0.6 oz pure alcohol)PHQ-2AnswerDate RecordedPatient Health Questionnaire-2 Hrrgx624 CommentsYesSex and Gender InformationValueDate RecordedSex Assigned at BirthNot on fileLegal FaxBpeyxq02/15/2023 6:47 PM EDTGender IdentityNot on file Sexual OrientationNot on filedocumented as of this encounter Functional Status * Over the past 2 weeks, how often have you been bothered by any of the following problems?QuestionAnswerDate of AssessmentAuthorLittle interest or pleasure in doing thingsNot at all06/27/2025 11:35 AM Cydney Go LPN Feeling down, depressed, or hopelessNot at all06/27/2025 11:35 AM Cydney Go LPNPatient Health Questionnaire-2 Vuign613 11:35 AM Cydney Go LPN documented as of this encounter Plan of Treatment DateTypeDepartmentCare Team (Latest Contact Info)Kwplsncukit70/11/2025 10:30 AM ESTRoutine [facility] [address] [facility] [address] Devan Tello, DO [address] [facility] [place] [address] documented as of this encounter Goals GoalPatient Goal TypeAssociated ProblemsRecent ProgressPatient-Stated?Author Reminders Care PlanOB RemindersNoOpen Scheduling, Backgrounddocumented as of this encounter Procedures Procedure NamePriorityDate/TimeAssociated DiagnosisCommentsUS OB BPP W NON-RIGXAL5801/06/2024 10:39 AM EDT documented in this encounter Results * US OB BPP W NON-STRESS (01/06/2024 10:39 AM EDT)Anatomical Region LateralityModalityOtherSpecimen (Source)Anatomical Location / Laterality Collection Method / VolumeCollection TimeReceived Time01/06/2024 10:39 AM EDT Narrative 01/06/2024 10:44 AM EDT [facility] ?[address] ? [place] [address] ? Ultrasound Report ? Signed ? Patient: JUANPABLO REYNOSO ?MR#: [id number] ?? : 2000 ?Acct:[id number] ?? Age/Sex: 23 / F ?ADM Date: 01/06/24 ?? Loc: [facility] ??254-1 ? Attending Dr: Devan Tello D.O. ? Ordering Physician: Devan Tello D.O. ?? Date of Service: 01/06/24 ?? Procedure(s): US OB BPP w non-stress ?? Accession Number(s): [id number] ? cc: ADRYAN MOORE ; Devan Tello D.O. ? [facility] ? [address] ? [place] [address] ? Patient Name: ?? JUANPABLO ??KRYSTA ? MRN: [facility]:[id number] ? date: 2000 ?Sex: F ?? Assigned Patient Location: [facility] ?? Current Patient Location: [facility] ?? Accession/Order Number: [id number] ?? Exam Date: 01/06/2024 ??09:58 ?Report Date: 01/06/2024 ??10:39 ? At the request of: ?? DEVAN ??OMER ? Procedure: ??US OB BPP w non-stress ? EXAMINATION: US OB BPP w non-stress ? HISTORY: Excessive growth ? COMPARISON: No relevant comparison available. ? TECHNIQUE: Ultrasound biophysical profile was performed in the radiology ?? department. ? FINDINGS: ?? BREATHING MOVEMENTS: 2.0 ?? GROSS BODY MOVEMENTS: 2.0 ?? TONE: 2.0 ?? QUALITATIVE AMNIOTIC FLUID VOLUME: 2.0 ? PRESENTATION: CEPHALIC ?? HEART RATE: 131.1 bpm H.B./min ?? AMNIOTIC FLUID VOLUME: 11.6 cm cm ?? GESTATIONAL AGE: 37 weeks 0 days ? CONCLUSION: ? Total biophysical profile score: 8.0 ? Electronically authenticated by: ADRYAN ??GENIE ?? Date: 01/06/2024 ??10:39 ? Dictated By: ?Adryan Prescott M.D. ? Signed By: ?01/06/24 1044 ? DD/ 1039 ? TD/TT: ? Label Remover: Procedure Note Radiology, Radiologist, - 01/06/2024 [place] [address] Ultrasound Report Signed Patient: TERE REYNOSO#: [id number] : 2000Acct:[id number] Age/Sex: 23 FADM Date: 01/06/24 Loc: [facility] 254-[address]: Devan Tello D.O. Ordering Physician: Devan Tello D.O. Date of Service: 01/06/24 Procedure(s): US OB BPP w non-stress Accession Number(s): [id number] cc: ADRYAN MOORE ; Devan Tello D.O. The [address] [address] Patient Name: JUANPABLO REYNOSO MRN: [facility]:[id number] date: 2000 Sex: F Assigned Patient Location: [facility] Current Patient Location: [facility] Accession/Order Number: [id number] Exam Date: 01/06/2024 09:58 Report Date: 01/06/2024 [...] profile score: 8.0 Electronically authenticated by: ADRYAN PERSCOTT Date: 01/06/2024 10:39 Dictated By: Adryan Prescott M.D. Signed By:01/06/24 1044 DD/ 1039 TD/TT: Label Remover: Authorizing ProviderResult TypeResult StatusCorey Omer DOCLINISYNC IMAGINGFinal Result documented in this encounter Visit Diagnoses Not on filedocumented in this encounter Additional Health Concerns Active ProblemsNoted DateDiagnosed DateOB Sazkqwwph97/30/2023 documented as of this encounter Care Teams Team MemberRelationshipSpecialtyStart DateEnd Date Adryan Moore MD [address] [place] [address] [facility] - [facility]/23 Devan Tello DO [address] [place] [address] [place] [address] PCP - [facility]09/28/24documented as of this encounter
--- OUTSIDE RECORDS SUMMARY | 2025-08-02 15:09 | XMS_ITS | Encounter Summary ---
Author Organization [facility] Address [address] [place] [address] Care Team Providers Care Medical Assistant Cardiology Name Role Phone Adryan Moore MD Primary Care Provider + [phone] Devan Tello DO Unavailable Encounter Details DateTypeDepartmentCare Team (Latest Contact Info)Hdrvhbframi72/17/2024Clinisync Result Encounter [facility] External Department Unsolicited Devan Tello, DO [address] [facility] [address] [place], [place] [address] Social History Tobacco UseTypesPacks/DayYears UsedDateSmoking Tobacco: Unknown Comments:Current smoker (richar quency unknown) Alcohol UseStandard Drinks/WeekCommentsNever0 (1 standard drink = 0.6 oz pure alcohol)PHQ-2AnswerDate RecordedPatient Health Questionnaire-2 Uwbum124 CommentsYesSex and Gender InformationValueDate RecordedSex Assigned at BirthNot on fileLegal DmpQmgzpk20/15/2023 6:47 PM EDTGender IdentityNot on file Sexual OrientationNot on filedocumented as of this encounter Functional Status * Over the past 2 weeks, how often have you been bothered by any of the following problems?QuestionAnswerDate of AssessmentAuthorLittle interest or pleasure in doing thingsNot at all06/27/2025 11:35 AM Cydney Go LPN Feeling down, depressed, or hopelessNot at all06/27/2025 11:35 AM Cydney Go LPNPatient Health Questionnaire-2 Genqz351 11:35 AM Cydney Go LPN documented as of this encounter Plan of Treatment DateTypeDepartmentCare Team (Latest Contact Info)Jmajafzwswo80/11/2025 10:30 AM ESTRoutine [facility] [address] [facility] [place] [address] Devan Tello, DO [address] [facility] [place] [address] documented as of this encounter Goals GoalPatient Goal TypeAssociated ProblemsRecent ProgressPatient-Stated?Author Reminders Care PlanOB RemindersNoOpen Scheduling, Backgrounddocumented as of this encounter Procedures Procedure NamePriorityDate/TimeAssociated DiagnosisCommentsUS OB GROWTH 01/13/2024 11:40 AM EDT documented in this encounter Results * US OB GROWTH (01/13/2024 11:40 AM EDT)Anatomical RegionLateralityModalityOther Specimen (Source)Anatomical Location / LateralityCollection Method / Volume Collection TimeReceived Time01/13/2024 11:40 AM EDT Narrative 01/13/2024 11:43 AM EDT [facility] ?[address] ? [place] [address] ? Ultrasound Report ? Signed ? Patient: JUANPABLO REYNOSO ?MR#: [id number] ?? : 2000 ?Acct:[id number] ?? Age/Sex: 23 / F ?ADM Date: 01/13/24 ?? Loc: US ? Attending Dr: Devan Tello D.O. ? Ordering Physician: Devan Tello D.O. ?? Date of Service: 01/13/24 ?? Procedure(s): US OB growth ?? Accession Number(s): [id number] ? cc: ADRYAN MOORE ; Devan Tello D.O. ? [facility] ? [address] ? [place] [address] ? Patient Name: ?? JUANPABLO ??KRYSTA ? MRN: [facility]:[id number] ? date: 2000 ?Sex: F ?? Assigned Patient Location: [facility] ?? Current Patient Location: ? Accession/Order Number: [id number] ?? Exam Date: 01/13/2024 ??10:00 ?Report Date: 01/13/2024 ??11:40 ? At the request of: ?? DEVAN ??OMER ? Procedure: ??US OB growth ? EXAMINATION: US OB growth ? HISTORY: EXCESSIVE GROWTH O36.63X0 ? COMPARISON: No relevant comparison available. ? FINDINGS: ? Heart Rate: 150.0 bpm ?? Amniotic Fluid Volume: 13.6 cm ?? Number: 1.0 ?? Position: Cephalic presentation, longitudinal lie ?? Maximum Vertical Pocket: ?? 4.1 cm cm ?? 2.8 cm cm ?? 1.8 cm cm ?? 5.0 cm cm ? BIOMETRY: ?? BPD: 9.2 cm cm; 37 weeks 3 days; 57% ?? HC: 34.0 cmcm; 39 weeks 1 days , 57% ?? AC: 35.3 cm cm; 39 weeks 1 days, 91% ?? FL: 7.1 cm cm; 36 weeks 1 days; 12.2 % % ?? EFW: 3454.8 grams, 7 lbs. 10 oz., 70% ?? FL/AC: 20.0 ?? FL/BPD: 76.7 ?? HC/AC: 1.0 ? GESTATIONAL AGE: ?? Age by EDC: 38 weeks 0 days ?? TOMASZ by EDC: 01/27/2024 ?? Age by US: 38 weeks 0 days ?? TOMASZ by US: 01/27/2024 ? US/US OB growth ?? IMPRESSION: ? Normal interval growth ? Electronically authenticated by: ADRYAN ??WEST ?? Date: 01/13/2024 ??11:40 ? Dictated By: ?Adryan Prescott M.D. ? Signed By: ?01/13/24 1143 ? DD/ 1140 ? TD/TT: ? Events Associate: Procedure Note Radiology, Radiologist, MD - 01/13/2024 [place] [address] Ultrasound Report Signed Patient: KRYSTABRONWYNJOHN#: [id number] : 2000Acct:[id number] Age/Sex: 23 / FADM Date: 01/13/24 Loc: US Attending Dr: Devan Tello D.O. Ordering Physician: Devan Tello D.O. Date of Service: 01/13/24 Procedure(s): US OB growth Accession Number(s): [id number] cc: ADRYAN MOORE ; Devan Tello D.O. [place] [address] Patient Name: JUANPABLO REYNOSO MRN: [facility]:[id number] date: 2000 Sex: F Assigned Patient Location: [facility] Current Patient Location: Accession/Order Number: [id number] Exam Date: 01/13/2024 10:00 Report Date: 01/13/2024 [...] M.D. Signed By:01/13/24 1143 DD/ 1140 TD/TT: Events Associate: Authorizing ProviderResult TypeResult StatusCorey Oemr DOCLINISYNC IMAGINGFinal Result documented in this encounter Visit Diagnoses Not on filedocumented in this encounter Additional Health Concerns Active ProblemsNoted DateDiagnosed DateOB Bqayrfqzf20/30/2023 documented as of this encounter Care Teams Team MemberRelationshipSpecialtyStart DateEnd Date Adryan [place] MD [address] [place] [address] [facility] - [facility] Devan Tello DO [address] [place], [place] [address] [place] [address] PCP - [facility]09/28/24documented as of this encounter
--- OUTSIDE RECORDS SUMMARY | 2025-08-02 15:09 | XMS_ITS | Encounter Summary ---
Author Organization [facility] Address [address] [place] [address] Care Team Providers Care Wool Hat Finisher Name Role Phone Adryan Moroe MD Primary Care Provider + [phone] Devan Tello DO Unavailable Encounter Details DateTypeDepartmentCare Team (Latest Contact Info)Ozakgpoufre59/13/2024Clinisync Result Encounter [facility] External Department Unsolicited Devan Tello, DO [address] [facility] [place] [address] Social History Tobacco UseTypesPacks/DayYears UsedDateSmoking Tobacco: Unknown Comments:Current smoker (richar quency unknown) Alcohol UseStandard Drinks/WeekCommentsNever0 (1 standard drink = 0.6 oz pure alcohol)PHQ-2AnswerDate RecordedPatient Health Questionnaire-2 Jgfzy731 CommentsYesSex and Gender InformationValueDate RecordedSex Assigned at BirthNot on fileLegal BjvXuiupu67/15/2023 6:47 PM EDTGender IdentityNot on file Sexual OrientationNot on filedocumented as of this encounter Functional Status * Over the past 2 weeks, how often have you been bothered by any of the following problems?QuestionAnswerDate of AssessmentAuthorLittle interest or pleasure in doing thingsNot at all06/27/2025 11:35 AM Cydney Go LPN Feeling down, depressed, or hopelessNot at all06/27/2025 11:35 AM Cydney Go LPNPatient Health Questionnaire-2 Luazi420 11:35 AM Cydney Go LPN documented as of this encounter Plan of Treatment DateTypeDepartmentCare Team (Latest Contact Info)Zwdjlezeemp34/11/2025 10:30 AM ESTRoutine [facility] [address] [facility] [place] [address] Devan Tello, DO [address] [facility] [place] [address] documented as of this encounter Goals GoalPatient Goal TypeAssociated ProblemsRecent ProgressPatient-Stated?Author Reminders Care PlanOB RemindersNoOpen Scheduling, Backgrounddocumented as of this encounter Procedures Procedure NamePriorityDate/TimeAssociated DiagnosisCommentsUS OB BPP W NON-YIQNWP5212/09/2023 10:29 AM EDT documented in this encounter Results * US OB BPP W NON-STRESS (12/09/2023 10:29 AM EDT)Anatomical Region LateralityModalityOtherSpecimen (Source)Anatomical Location / Laterality Collection Method / VolumeCollection TimeReceived Time12/09/2023 10:29 AM EDT Narrative 12/09/2023 10:31 AM EDT The [facility] ?[address] ? [place] [address] ? Ultrasound Report ? Signed ? Patient: JUANPABLO REYNOSO ?MR#: [id number] ?? : 2000 ?Acct:[id number] ?? Age/Sex: 23 / F ?ADM Date: 12/09/23 ?? Loc: [facility] ??250-1 ? Attending Dr: Devan Tello D.O. ? Ordering Physician: Devan Tello D.O. ?? Date of Service: 12/09/23 ?? Procedure(s): US OB BPP w non-stress ?? Accession Number(s): [id number] ? cc: ADRYAN MOORE ; Devan Tello D.O. ? [facility] ? [address] ? [place] [address] ? Patient Name: ?? JUANPABLO ??KRYSTA ? MRN: [facility]:[id number] ? date: 2000 ?Sex: F ?? Assigned Patient Location: US ?? Current Patient Location: [facility] ?? Accession/Order Number: [id number] ?? Exam Date: 12/09/2023 ??09:55 ?Report Date: 12/09/2023 ??10:29 ? At the request of: ?? DEVAN ??OMER ? Procedure: ??US OB BPP w non-stress ? EXAMINATION: US OB BPP w non-stress ? HISTORY: Excessive growth o36.63x0 ? COMPARISON: Ultrasound OB biophysical 12/01/2023 ? TECHNIQUE: Ultrasound biophysical profile was performed in the radiology ?? department. ? BREATHING MOVEMENTS: 2.0 ?? GROSS BODY MOVEMENTS: 2.0 ?? TONE: 2.0 ?? QUALITATIVE AMNIOTIC FLUID VOLUME: 2.0 ? PRESENTATION: CEPHALIC ?? HEART RATE: 147.5 bpm bpm. ?? AMNIOTIC FLUID VOLUME: 16.4 cm ?? GESTATIONAL AGE: 33 weeks 0 days ? CONCLUSION: ? Total biophysical profile score 8.0. ? Electronically authenticated by: MATTHEW ??STEPHENIE ?? Date: 12/09/2023 ??10:29 ? Dictated By: ?Matthew Grove M.D. ? Signed By: ?12/09/23 1031 ? DD/ 1029 ? TD/TT: ? In Flight Refueling Operator: Procedure Note Radiology, Radiologist, - 12/09/2023 [place] [address] Ultrasound Report Signed Patient: TERE REYNOSO#: [id number] : 2000Acct:[id number] Age/Sex: 23 FADM Date: 12/09/23 Loc: [facility] 250-[address]: Devan Tello D.O. Ordering Physician: Devan Tello D.O. Date of Service: 12/09/23 Procedure(s): US OB BPP w non-stress Accession Number(s): [id number] cc: ADRYAN MOORE ; Devan Tello D.O. The [address] [address] Patient Name: JUANPABLO REYNOSO MRN: [facility]:[id number] date: 2000 Sex: F Assigned Patient Location: US Current Patient Location: [facility] Accession/Order Number: [id number] Exam Date: 12/09/2023 09:55 Report Date: 12/09/2023 10:29 At the request of: DEVAN TELLO Procedure: US OB BPP w non-stress EXAMINATION: US OB BPP w non-stress HISTORY: Excessive growth o36.63x0 COMPARISON: Ultrasound OB biophysical 12/01/2023 TECHNIQUE: Ultrasound biophysical profile was performed in the radiology department. BREATHING MOVEMENTS: 2.0 GROSS BODY MOVEMENTS: 2.0 TONE: 2.0 QUALITATIVE AMNIOTIC FLUID VOLUME: 2.0 PRESENTATION: CEPHALIC HEART RATE: 147.5 bpm bpm. AMNIOTIC FLUID VOLUME: 16.4 cm GESTATIONAL AGE: 33 weeks 0 days CONCLUSION: Total biophysical profile score 8.0. Electronically authenticated by: MATTHEW GROVE Date: 12/09/2023 10:29 Dictated By: Matthew Grove M.D. Signed By:12/09/23 1031 DD/ 1029 TD/TT: In Flight Refueling Operator: Authorizing ProviderResult TypeResult StatusCorey Oemr DOCLINISYNC IMAGINGFinal Result documented in this encounter Visit Diagnoses Not on filedocumented in this encounter Additional Health Concerns Active ProblemsNoted DateDiagnosed DateOB Zvczvmujh27/30/2023 documented as of this encounter Care Teams Team MemberRelationshipSpecialtyStart DateEnd Date Adryan [place] MD [address] [place] [address] PCP - GeneralFacoly Medicine06/19/23 Devan Tello DO [address] [place] [address] [place] [address] PCP - [facility]09/28/24documented as of this encounter
--- OUTSIDE RECORDS SUMMARY | 2025-08-02 15:09 | XMS_ITS | Encounter Summary ---
Author Organization [facility] Address [address] [place] [address] Care Team Providers Care Bench Hand Name Role Phone Adryan Moore MD Primary Care Provider + [phone] Devan Tello DO Unavailable Encounter Details DateTypeDepartmentCare Team (Latest Contact Info)Lxalxpxuniu13/28/2024Clinisync Result Encounter [facility] External Department Unsolicited Devan Tello, DO [address] [facility] [address] [place], [place] [address] Social History Tobacco UseTypesPacks/DayYears UsedDateSmoking Tobacco: Unknown Comments:Current smoker (richra quency unknown) Alcohol UseStandard Drinks/WeekCommentsNever0 (1 standard drink = 0.6 oz pure alcohol)PHQ-2AnswerDate RecordedPatient Health Questionnaire-2 Cacnq106 CommentsYesSex and Gender InformationValueDate RecordedSex Assigned at BirthNot on fileLegal VabBrrubq97/15/2023 6:47 PM EDTGender IdentityNot on file Sexual OrientationNot on filedocumented as of this encounter Functional Status * Over the past 2 weeks, how often have you been bothered by any of the following problems?QuestionAnswerDate of AssessmentAuthorLittle interest or pleasure in doing thingsNot at all06/27/2025 11:35 AM Cydney Go LPN Feeling down, depressed, or hopelessNot at all06/27/2025 11:35 AM Cydney Go LPNPatient Health Questionnaire-2 Ubjdh574 11:35 AM Cydney Go LPN documented as of this encounter Plan of Treatment DateTypeDepartmentCare Team (Latest Contact Info)Ckmwboyzrvt07/11/2025 10:30 AM ESTRoutine [facility] [address] [facility] [place] [address] Devan Tello, DO [address] [facility] [place] [address] documented as of this encounter Goals GoalPatient Goal TypeAssociated ProblemsRecent ProgressPatient-Stated?Author Reminders Care PlanOB RemindersNoOpen Scheduling, Backgrounddocumented as of this encounter Procedures Procedure NamePriorityDate/TimeAssociated DiagnosisCommentsUS OB GROWTH 12/24/2023 10:58 AM EDT documented in this encounter Results * US OB GROWTH (12/24/2023 10:58 AM EDT)Anatomical RegionLateralityModalityOther Specimen (Source)Anatomical Location / LateralityCollection Method / Volume Collection TimeReceived Time12/24/2023 10:58 AM EDT Narrative 12/24/2023 11:01 AM EDT [facility] ?[address] ? [place] [address] ? Ultrasound Report ? Signed ? Patient: JUANPABLO REYNOSO ?MR#: [id number] ?? : 2000 ?Acct:[id number] ?? Age/Sex: 23 / F ?ADM Date: 12/24/23 ?? Loc: [facility] ? Attending Dr: Devan Tello D.O. ? Ordering Physician: Devan Tello D.O. ?? Date of Service: 12/24/23 ?? Procedure(s): US OB growth ?? Accession Number(s): [id number] ? cc: ADRYAN MOORE ; Devan Tello D.O. ? [facility] ? [address] ? [place] [address] ? Patient Name: ?? JUANPABLO ??KRYSTA ? MRN: [facility]:[id number] ? date: 2000 ?Sex: F ?? Assigned Patient Location: [facility] ?? Current Patient Location: [facility] ?? Accession/Order Number: [id number] ?? Exam Date: 12/24/2023 ??10:06 ?Report Date: 12/24/2023 ??10:58 ? At the request of: ?? DEVAN ??OMER ? Procedure: ??US OB growth ? EXAMINATION: US OB growth ? HISTORY: LGA ? COMPARISON: No relevant comparison available. ? FINDINGS: ? Heart Rate: 130.0 bpm ?? Amniotic Fluid Volume: 12.8 cm ?? Number: 1.0 ?? Position: Cephalic presentation, longitudinal lie ?? Maximum Vertical Pocket: ?? 3.8 cm cm ?? 2.5 cm cm ?? 3.5 cm cm ?? 3.0 cm cm ? BIOMETRY: ?? BPD: 8.9 cm cm; 36 weeks 1 days; 79% ?? HC: 33.5 cmcm; 38 weeks 3 days , 89% ?? AC: 35.1 cm cm; 39 weeks 0 days, >97% FL: 7.3 cm cm; 37 weeks 3 days; 91.6 % % ?? EFW: 3419.1 grams, 7 lb 9 oz, > 97% FL/AC: 20.9 ?? FL/BPD: 82.0 ?? HC/AC: 1.0 ? GESTATIONAL AGE: ?? Age by EDC: 35 weeks 1 days ?? TOMASZ by EDC: 01/27/24 ?? Age by US: 37w 5d ?? TOMASZ by US: 01/09/24 ? US/US OB growth ?? IMPRESSION: ? Large for gestational age ? Electronically authenticated by: ADRYAN ??WEST ?? Date: 12/24/2023 ??10:58 ? Dictated By: ?Adryan Prescott M.D. ? Signed By: ?12/24/23 1101 ? DD/ 1058 ? TD/TT: ? Dental Technologist: Procedure Note Radiology, Radiologist, MD - 12/24/[address] [address] Ultrasound Report Signed Patient: TERE REYNOSO#: [id number] : 2000Acct:[id number] Age/Sex: 23 / FADM Date: 12/24/23 Loc: [facility] Attending Dr: Devan Tello D.O. Ordering Physician: Devan Tello D.O. Date of Service: 12/24/23 Procedure(s): US OB growth Accession Number(s): [id number] cc: ADRYAN MOORE ; Devan Tello D.O. [place] [address] Patient Name: JUANPABLO REYNOSO MRN: [facility]:[id number] date: 2000 Sex: F Assigned Patient Location: [facility] Current Patient Location: [facility] Accession/Order Number: [id number] Exam Date: 12/24/2023 10:06 Report Date: 12/24/2023 [...] M.D. Signed By:12/24/23 1101 DD/ 1058 TD/TT: Dental Technologist: Authorizing ProviderResult TypeResult StatusCorey Omer DOCLINISYNC IMAGINGFinal Result documented in this encounter Visit Diagnoses Not on filedocumented in this encounter Additional Health Concerns Active ProblemsNoted DateDiagnosed DateOB Bukitlopi54/30/2023 documented as of this encounter Care Teams Team MemberRelationshipSpecialtyStart DateEnd Date Adryan [place] MD [address] [facility] [place] [address] [facility] - [facility]23 Devan Tello DO [address] [place] [address] [place] [address] PCP - [facility]09/28/24documented as of this encounter
--- OUTSIDE RECORDS SUMMARY | 2025-08-02 15:15 | XMS_ITS | CCD ---
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 Name Role Phone Deonna Back Unavailable OSCAR, ADRYAN Primary Care Physician [phone] LESLEY, DR LUIS ANTONIO Jorge Consulting Unavailable LESLEY, DR LUIS ANTONIO Jorge Attending Unavailable DEFRANCE, DR CORNELIUS Primary Care Unavailable LESLEY, DR LUIS ANTONIO Jorge Admitting Unavailable DEFRANCE, DR CORNELIUS Primary Care Unavailable DIETER GONZALEZ Admitting Unavailable DIETER GONZALEZ Attending Unavailable CHIKA AVILES Consulting Unavailable DEFRANCE, DR CORNELIUS Primary Care Unavailable PATEL, DR BOLAÑOS Consulting Unavailable HAY, DR ESPINOZA Attending Unavailable HAY, DR ESPINOZA Admitting Unavailable BREANNA, AURELIA Consulting Unavailable SUTTON, DR LUIS ANTONIO Jorge [...] Unavailable DEFRANCE, DR CORNELIUS Consulting Unavailable CHIKA AVILES Attending Unavailable CHIKA AVILES Admitting Unavailable LESLEY, DR LUIS ANTONIO Jorge Attending Unavailable CHIKA BHAKTA Consulting Unavailable DEFRANCE, DR CORNELIUS Primary Care Unavailable LESLEY, DR LUIS ANTONIO Jorge Admitting Unavailable BRENNANRANCE, DR CORNELIUS Primary Care Unavailable DIETER GONZALEZ Consulting Unavailable DIETER GONZALEZ Attending Unavailable CARLOS, DIETER Admitting Unavailable Defrance Adryan OBRIEN Primary Care Provider Omer DO, Devyn Unavailable Adryan Marie MD Primary Care Provider Adryan Marie MD Primary Care Provider Omer DO, Devyn Unavailable OMER, DEVYN Attending Unavailable OMER, DEVYN Attending Unavailable CYDNEY STALLINGS Attending Unavailable OMER, DEVYN Attending Unavailable OMER, DEVYN Referring Unavailable OMER, DEVYN Attending Unavailable CYDNEY AVILES Attending Unavailable OMER, DEVYN Attending Unavailable OMER, DEVYN Referring Unavailable OMER, DEVYN Attending Unavailable OMER, DEVYN Referring Unavailable OMER, DEVYN Attending Unavailable TRACI, CYDNEY Attending Unavailable OMER, DEVYN Attending Unavailable Allergies Allergy ClassificationReported Allergen(s)Allergy TypeDate of OnsetReaction(s) Facility (3 sources)SulfacetamideDrug AllergyAd[facility]Health [facility] Other (1 source)Sulfonamides (Antibiotic); Translations: [sulfa drugs]Drug allergy Hyperpyrexia (finding)[facility] (1 source)Sulfonamides (Antibiotic)Drug allergy (disorder)29-03-6656[facility] (20 sources)Sulfonamides (Antibiotic)Drug Llfdzhimwlc25-65-4666Qecfg, Hives, RashNOMS Healthcare Work Phone: Medications Current Medications MedicationDrug Class(es)DatesSig (Normalized)Sig (Original)citalopram 20 mg oral tablet (13 sources)Serotonin Reuptake InhibitorStart: 04-14-2024 End: 14-95-1649pxfp 1 tablet by mouth once dailycitalopram (CeleXA) 20 MG tablet Indications: Post depression (CMS/HCC) Take 1 tablet (20 mg) by mouth Daily 90 tablet 3 11/30/2024 11/25/2025 ActiveEthinyl Estradiol / Ferrous fumarate / Norethindrone (11 sources)EstrogenStart: 46-23-8039Nhngzffh FE 10/17 1-20 MG-MCG tablet 12/06/2024 ActiveStart: 05-12-2024 End: 36-05-6341lynw 1 tablet by mouth once daily, then take 1 tablet by mouth once dailynorethindrone-ethinyl estradiol (10/17) 1-20 MG-MCG tablet Indications: Encounter for initial prescription of contraceptive pills Take 1 tablet by mouth Daily for 28 days Take 1 tablet by mouth daily 28 tablet 05/12/2024 11/01/2024 Discontinued (Other)Start: 57-71-7730vhhb 1 tablet by mouth once daily, then take 1 tablet by mouth once dailynorethindrone-ethinyl estradiol (10/17) 1-20 MG-MCG tablet Indications: Encounter for initial prescription of contraceptive pills Take 1 tablet by mouth Daily for 28 days Take 1 tablet by mouth daily 28 tablet 05/12/2024 Activefluticasone propionate 0.05 mg/actuat metered dose nasal spray (2 sources)CorticosteroidStart: 64-02-4801intj 2 spray(s) nasal route once daily Fluticasone Propionate 50 MCG/ACT 2 sprays Nasally Once a day for 14 day(s) Mar, ActiveIbuprofen (3 sources)Nonsteroidal Anti-inflammatory DrugIbuprofen ActiveOndansetron (2 sources)Serotonin-3 Receptor AntagonistZofran ActivepredniSONE 20 mg oral tablet (5 sources)Start: 55-19-4746nkhl 1 tablet by mouth every twelve hourspredniSONE 20 MG 1 tablet Orally 2 times a day for 5 day(s) Mar, ActivePrenatal MV & Min w/FA-DHA ([facility]) 0.4-25 MG chewable tablet (3 sources)Start: 62-64-2271Oxiccknv MV & Min w/FA-DHA ([facility]) 0.4- 25 MG chewable tablet CHEW 1 GUMMY BY MOUTHEVERY MORNING 0 10/06/2023 Active LL-Xld-LJ-[place]-3 ( GUMMIES/DHA & FA PO) (20 sources) YU-Ujs-SK-[place]-3 ( GUMMIES/DHA & FA PO) Take 1 each by mouth Daily Active Completed/Discontinued Medications MedicationDrug Class(es)DatesSig (Normalized)Sig (Original)[id number] 200 actuat albuterol 0.09 mg/actuat metered dose inhaler (3 sources)beta2-Adrenergic AgonistStart: 65-68-7212pttr 2 puff(s) by inhalation every four to six hours as neededProAir HFA 108 (90 Base) MCG/ACT 2 puffs as needed Inhalation every 4-6 hrs January, Not-Takingamoxicillin 500 mg oral capsule (6 sources)Penicillin-class AntibacterialStart: 58-75-3968zvqa 1 capsule by mouth every eight hoursAmoxicillin 500 MG 1 capsule Orally three times a day for 10 day(s) Mar, Not-TakingStart: 38-57-3144vylj 1 tablet by mouth every eight hoursAmoxicillin 875 MG 1 tablet Orally every 8 hrs for 10 day(s) January, Not-Takingazithromycin 250 mg oral tablet (6 sources)Macrolide AntimicrobialStart: 03-08-2024 End: 00-53-8691qowtmueoogzd (Zithromax Z-Darren) 250 MG tablet Indications: Upper respiratory tract infection, unspecified type As directed 6 tablet 03/08/2024 08/29/2024 DiscontinuedBrompheniramine / Pseudoephedrine (3 sources)alpha-Adrenergic AgonistStart: 33-06-9089uqhi 5 mL by mouth every six hours as neededBromfed DM 30-2-10 MG/5ML 5 ml as needed Orally every 6 hrs January, Not-TakingdiphenhydrAMINE hydrochloride 25 mg oral capsule (6 sources)Histamine-1 Receptor AntagonistStart: 03-29-2024 End: 69-23-7706wwxs 1 capsule by mouth every six hoursdiphenhydrAMINE (Benadryl Allergy) 25 MG capsule Indications: Allergy, initial encounter Take 1 capsule (25 mg) by mouth every 6 (six) hours if needed for itching for up to 10 days 30 capsule 03/29/2024 08/29/2024 Discontinuedethinyl estradiol 0.035 mg / norgestimate 0.25 mg oral tablet (6 sources)Progestin, EstrogenStart: 04-14-2024 End: 90-65-4683ltiq 1 tablet by mouth once daily, then take 1 tablet by mouth once dailynorgestimate-ethinyl estradiol (Sprintec 28) 0.25-35 MG-MCG tablet Indications: Surveillance for control, oral contraceptives Take 1 tablet by mouth Daily Take 1 tablet by mouth daily 90 licced6704/14/2024 08/29/2024 Discontinuedhydrocortisone 10 mg/ml / neomycin 3.5 mg/ml / polymyxin b 18503 unt/ml otic suspension (3 sources)Aminoglycoside Antibacterial, Polymyxin-class Antibacterial, CorticosteroidStart: 53-31-9518Gnoholco-Polymyxin-HC 3.5-70815-0 3 drops left ear Three times a day for 7 days Mar, Not-Takingmupirocin 0.02 mg/mg topical ointment (3 sources)RNA Synthetase Inhibitor AntibacterialStart: 62-10-3152Rarizfsoc 2 % 1 application to affected area Externally once per day for 7 days January, Not-TakingPrenatal MA-Srs-HN-[place]-3 ( Gummies/DHA & FA) 0.4-32.5 MG chewable tablet (5 sources)Start: 06-19-2023 End: 04-84-1943Slffrydq GQ-Yfx-FG-[place]-3 ( Gummies/DHA & FA) 0.4-32.5 MG chewable tablet Indications:Missed menses Chew 32.5 mg in the morning. 30 tablet 11 06/19/2023 11/26/2023 DiscontinuedStart: 06-19-2023 End: 45-25-2197Hdgjzdyi BF-Rtn-LK-[place]-3 ( Gummies/DHA & FA) 0.4-32.5 MG chewable tablet Indications:Missed menses Chew 32.5 mg in the morning. 30 tablet 11 06/19/2023 06/18/2024 Active Problems Active Problems Problem ClassificationProblemDateDocumented DateEpisodic/ChronicAbdominal pain (5 sources)Unspecified abdominal pain; Translations: [Pelvic and perineal pain] Onset: 36-74-3682IclxajscZgadtact reactions (1 source)Allergy, unspecified, initial encounter; Translations: [ALLERGY UNSPECIFIED INITIAL ENCNTR]Onset: 61-01-0386EiwggxyyRglszuwxrq associated with dizziness or vertigo (3 sources)Dizziness and giddiness; Translations: [Dizziness and giddiness] Onset: 04-09-2022 Resolved: 09-95-8735ZspnjktsWmfxl and electrolyte disorders (1 source)Hypokalemia; Translations: [HYPOKALEMIA]Onset: 51-11-1145Lmpeiulc Gastrointestinal hemorrhage (4 sources)Hematemesis; Translations: [HEMATEMESIS]Onset: 58-83-1696Iuxyzjrw Genitourinary symptoms and ill-defined conditions (2 sources)Urinary symptoms ; Translations: [Unspecified symptoms and signs involving the genitourinary system]83-04-2119YozvfemtOignuvpa; including migraine (1 source)Headache; Translations: [Headache, unspecified]Onset: 04-12-2022 EpisodicHeadache; including migraine (4 sources)Headache; including migraine; Translations: [HEADACHE UNSPECIFIED] Onset: 23-48-2586Viurglgkai during ; abruptio placenta; placenta previa (2 sources)Subchorionic hematoma; Translations: [Other antepartum hemorrhage, unspecified trimester]26-59-5142MoqhhvqsYodlexvoqlgem and screening for infectious disease (4 sources)Exposure to sexually transmissible disorder; Translations: [Contact with and (suspected) exposure to infections with a predominantly sexual mode of transmission]84-16-2730XppjcjhmMiocbdkev disorders (4 sources)Dysmenorrhea, unspecified; Translations: [Missed period]Onset: 075457-49-7048RwrkpegUcbprslnxipem mental health disorders (4 sources) depression; Translations: [ depression] 66-62-9360XjewktduMepxy complications of (2 sources)Excessive growth affecting management of mother; Translations: [Maternal care for excessive growth, third trimester, not applicable or unspecified]53-52-6923AggcbioeEhjix complications of (2 sources) size does not accord with dates; Translations: [Uterine size- date discrepancy, unspecified trimester]89-53-1549CgbxyqxoYoduw female genital disorders (1 source)Unspecified dyspareunia; Translations: [UNSPECIFIED DYSPAREUNIA]Onset: 45-62-3966ItnjouxMezkq female genital disorders (2 sources)Vaginal discharge; Translations: [Other specified noninflammatory disorders of vagina]15-34-8870MaumalcyRndmx gastrointestinal disorders (5 sources)Diarrhea, unspecified; Translations: [DIARRHEA UNSPECIFIED]Onset: 79-08-8934DedgwufgFkote and delivery including normal (20 sources)Third trimester ; Translations: [Encounter for supervision of normal , unspecified, third trimester]Onset: EpisodicOther screening for suspected conditions (not mental disorders or infectious disease) (4 sources)Patient encounter status; Translations: [Encounter for other specified screening]67-98-6263HyoqmvqaYjucf skin disorders (5 sources)Rash and other nonspecific skin eruption; Translations: [RASH OTH NONSPECIFIC SKIN ERUPTION]Onset: 98-91-0752YgkhkioaCirbzqib codes; unclassified (1 source)Gestation period, 9 weeks; Translations: [9 weeks gestation of ]64-33-4785DtknblhmGmomjpza codes; unclassified (2 sources)Gestation period, 17 weeks; Translations: [17 weeks gestation of ]25-83-6579ZtbuohkoOhrulzfm codes; unclassified (2 sources)Gestation period, 21 weeks; Translations: [21 weeks gestation of ]14-72-6144EttakxysQzgvxrdp codes; unclassified (2 sources)Gestation period, 24 weeks; Translations: [24 weeks gestation of ]63-71-1779LkhodmbxPkwludvz codes; unclassified (2 sources)Gestation period, 28 weeks; Translations: [28 weeks gestation of ]77-91-7736KnpfgunmMyqrorht codes; unclassified (20 sources)Gestation period, 30 weeks; Translations: [30 weeks gestation of ]Onset: 425120-59-9567FoallnqsYxdgqxnq codes; unclassified (2 sources)Gestation period, 32 weeks; Translations: [32 weeks gestation of ]59-93-9160VitheactZwkaqabl codes; unclassified (2 sources)Gestation period, 34 weeks; Translations: [34 weeks gestation of ]55-91-8916OfwkwmubAeoyjffr codes; unclassified (2 sources)Gestation period, 36 weeks; Translations: [36 weeks gestation of ]02-98-5725VqgjwtveKchikcxyi-related disorders (2 sources)Nicotine dependence, other tobacco product, uncomplicated; Translations: [Nicotine dependence, cigarettes, uncomplicated]Onset: 08-14-2022 ChronicUnclassified (1 source)CONTACT W/AND (SUSP) EXPOS COVID-19; Translations: [CONTACT W/AND (SUSP) EXPOS COVID-19]Onset: 62-82-6688Wrzealabmssy (20 sources)OB RemindersOnset: 647892-27-6992 Past or Other Problems Problem ClassificationProblemDateDocumented DateEpisodic/ChronicNausea and vomiting (3 sources)Nausea with vomiting, unspecified; Translations: [NAUSEA WITH VOMITING UNSPECIFIED]Onset: 23-13-7135AgygdpyzQhuqadifstiac gastroenteritis (1 source)Noninfective gastroenteritis and colitis, unspecified; Translations: [NONINFECTIVE GE AND COLITIS UNS]Onset: 98-64-1156ZlfcoazwEzajv ear and sense organ disorders (1 source)Unspecified acute noninfective otitis externa, left earOnset: 04-02-2022 Resolved: 81-86-1312Keyajvtt Results Test NameValueInterpretationReference RangeFacilityUrinalysis macro (dipstick) panel (U)on 80-02-2634Ditmayzkl, UANegativeNegative - 4(70) +++ mg/dLNOMS HealthcareBlood, UANegativeNegative - 50 Cedric/mcLNOMS HealthcareClarity, UAClear NOMS HealthcareColor, UAYellowNOMS HealthcareGlucose, UANegativeNegative - 2000(110) ++++ mg/dLNOMS HealthcareInterpretation and review of laboratory resultsNormalNOMS HealthcareKetones, UANegativeNegative - 160(16) ++++ mg/dLNOMS HealthcareLeukocytes, UANegativeNegative - 500+++ Alessandro/mcLNOMS HealthcareNitrite, UANegativeNegative - PositiveNOMS HealthcarepH, UA6.05 - 9N[facility] Healthcare Protein, UANegativeNegative - 2000(20) ++++ mg/dLNOMS HealthcareSpec Grav, UA 1.0151 - 1.03NOMS HealthcareUrobilinogen, UA0.20.2 - 12 mg/dLNOMS HealthcareNOMS HealthcareUrinalysis macro (dipstick) panel (U)on 07-75-4684Ivjhsntcm, UA NegativeNegative - 4(70) +++ mg/dLNOMS HealthcareBlood, UANegativeNegative - 50 Cedric/mcLNOMS HealthcareClarity, UAClearNOMS HealthcareColor, UAYellowNOMS HealthcareGlucose, UANegativeNegative - 1999(110) ++++ mg/dLNOMS Healthcare Interpretation and review of laboratory resultsNormalNOMS HealthcareKetones, UA NegativeNegative - 160(16) ++++ mg/dLNOMS HealthcareLeukocytes, UANegative Negative - 500+++ Alessandro/mcLNOMS HealthcareNitrite, UANegativeNegative - Positive NOMS HealthcarepH, UA6.55 - 9NOMS HealthcareProtein, UANegativeNegative - 2000(20) ++++ mg/dLNOMS HealthcareSpec Grav, UA1.0101 - 1.03N[facility] Urobilinogen, UA2.00.2 - 12 mg/dLNOMS HealthcareNOMS HealthcareUrinalysis macro (dipstick) panel (U)on 48-21-1848Qyvnprpaa, UANegativeNegative - 4(70) +++ mg/dL NOMS HealthcareBlood, UANegativeNegative - 50 Cedric/mcLNOMS HealthcareClarity, UA ClearNOMS HealthcareColor, UAYellowNOMS HealthcareGlucose, UANegativeNegative - 1999(110) ++++ mg/dLNOMS HealthcareInterpretation and review of laboratory resultsNormalNOMS HealthcareKetones, UANegativeNegative - 160(16) ++++ mg/dLNOMS HealthcareLeukocytes, UANegativeNegative - 500+++ Alessandro/[facility] HospitalNOMS HealthcareNitrite, UANegativeNegative - PositiveNOMS HealthcarepH, UA6.55 - 9N[facility] Protein, UANegativeNegative - 1999(20) ++++ mg/dLNOMS HealthcareSpec Grav, UA 1.0051 - 1.03NOMS HealthcareUrobilinogen, UA2.00.2 - 12 mg/dLNOMS HealthcareNOMS HealthcareUS OB FOLLOW UP TRANSABDOMINAL APPROACHon 98-52-4278QW OB FOLLOW UP TRANSABDOMINAL APPROACHFINDINGS: Comparison made with prior exam April 18, [...] menstrual period. TRANSCRIBED BY: ELECTRONICALLY SIGNED BY: Chidi Alberto AvailableComment on above:Order Comment: US OB SCAN FOR GROWTH Estimated Date of Delivery: 08/25/25 Gestational Age as of 06/06/2025: 34n4wOujjnjrrdo macro (dipstick) panel (U) Ordered By: Belen Vera on 64-22-9046Xmggjfuoc, UANegativeNegative - 4(70) +++ mg/dLNOMS HealthcareBlood, UANegativeNegative - 50 Cedric/mcLNOMS HealthcareClarity, UAClearNOMS HealthcareColor, UAYellowNOMS HealthcareGlucose, UANegativeNegative - 2000(110) ++++ mg/dLNOMS HealthcareInterpretation and review of laboratory resultsNormalNOMS HealthcareKetones, UANegativeNegative - 160(16) ++++ mg/dLNOMS HealthcareLeukocytes, UANegativeNegative - 500+++ Alessandro/mcL NOMS HealthcareNitrite, UANegativeNegative - PositiveNOMS HealthcarepH, UA75 - 9 NOMS HealthcareProtein, UANegativeNegative - 2000(20) ++++ mg/dLNOMS Healthcare Spec Grav, UA1.011 - 1.03NOMS HealthcareUrobilinogen, UA0.20.2 - 12 mg/dLNOMS HealthcareNOMS HealthcareUrinalysis macro (dipstick) panel (U)on 06-06-2025 Bilirubin, UANegativeNegative - 4(70) +++ mg/dLNOMS HealthcareBlood, UANegative Negative - 50 Cedric/mcLNOMS HealthcareClarity, UAClearNOMS HealthcareColor, UA YellowNOMS HealthcareGlucose, UANegativeNegative - 1999(110) ++++ mg/dLNOMS HealthcareInterpretation and review of laboratory resultsNormalNOMS Healthcare Ketones, UANegativeNegative - 160(16) ++++ mg/dLNOMS HealthcareLeukocytes, UA NegativeNegative - 500+++ Alessandro/mcLNOMS HealthcareNitrite, UANegativeNegative - PositiveNOMS HealthcarepH, UA75 - 9NOMS HealthcareProtein, UANegativeNegative - 1999(20) ++++ mg/dLNOMS HealthcareSpec Grav, UA1.011 - 1.03NOMD Healthcare Urobilinogen, UA0.20.2 - 12 mg/dLNOMS HealthcareNOMS HealthcareGLUCOSE 1 HOURon 75-26-3813Ukwycqn [Mass/Vol]101 mg/dLNINF - 130 mg/dLNOMS HealthcareCLINISYNC NOMS HealthcareUrinalysis macro (dipstick) panel (U)on 53-27-8397Pqwovjfmn, UA NegativeNegative - 4(70) +++ mg/dLNOMS HealthcareBlood, UANegativeNegative - 50 Cedric/mcLNOMS HealthcareClarity, UAClearNOMS HealthcareColor, UAYellowNOMS HealthcareGlucose, UANegativeNegative - 1999(110) ++++ mg/dLNOMS Healthcare Interpretation and review of laboratory resultsNormalNOMD HealthcareKetones, UA NegativeNegative - 160(16) ++++ mg/dLNOMS HealthcareLeukocytes, UANegative Negative - 500+++ Alessandro/mcLNOMS HealthcareNitrite, UANegativeNegative - Positive NOMS HealthcarepH, UA65 - 9NOMS HealthcareProtein, UANegativeNegative - 1999(20) ++++ mg/dLNOMS HealthcareSpec Grav, UA1.021 - 1.03NOMS HealthcareUrobilinogen, UA1.00.2 - 12 mg/dLNOMS HealthcareNOMS HealthcareUrinalysis macro (dipstick) panel (U)Ordered By: Jasmin Nogueira on 43-52-0867Pgzinutah, UANegativeNegative - 4(70) +++ mg/dLNOMS Healthcare Work Phone: Blood, UANegativeNegative - 50 Cedric/mcLNOMS Healthcare Work Phone: Clarity, UAClearNOMS Healthcare Work Phone: Color, UAYellowNOMS Healthcare Work Phone: Glucose, UANegativeNegative - 2000(110) ++++ mg/dLNOMS Healthcare Work Phone: Interpretation and review of laboratory results AbnormalNOMS Healthcare Work Phone: Ketones, UANegativeNegative - 160(16) ++++ mg/dLNOMS Healthcare Work Phone: Leukocytes, UANegativeNegative - 500+++ Alessandro/mcLNOMS Healthcare Work Phone: Nitrite, UANegativeNegative - PositiveNOMS Healthcare Work Phone: pH, UA65 - 9N[facility] Work Phone: Protein, UATraceNegative - 2000(20) ++++ mg/dLNOMS Healthcare Work Phone: Spec Grav, UA1.011 - 1.03N[facility] Work Phone: Urobilinogen, UA1.00.2 - 12 mg/dLNOMS Healthcare Work Phone: [facility] Work Phone: US OB 14+ WEEKS ANATOMY SCANon 21-59-7471UZ OB 14+ WEEKS ANATOMY SCANEXAM: US OB 14+ WEEKS ANATOMY SCAN HISTORY: [...] II, MD, PHD at 19-Apr-2025 10:16:24 AM [facility] [place] TeleradiologyNormalNot AvailableComment on above:Order Comment: US OB ANATOMY SINGLE W US OB CERVICAL LENGTH Estimated Date of Delivery: 08/25/25 Gestational Age as of 03/20/2025: 99l4gXconzlkweu macro (dipstick) panel (U)on 95-24-4728Tybwwabgs, UANegativeNegative - 4(70) +++ mg/dLNOMS HealthcareBlood, UANegativeNegative - 50 Cedric/mcLNOMD HealthcareClarity, UAClearNOMS Healthcare Color, UAYellowNOMS HealthcareGlucose, UANegativeNegative - 1999(110) ++++ mg/dL NOMS HealthcareInterpretation and review of laboratory resultsNormalNOMS HealthcareKetones, UANegativeNegative - 160(16) ++++ mg/dLNOMS Healthcare Leukocytes, UANegativeNegative - 500+++ Alessandro/mcLNOMS HealthcareNitrite, UA NegativeNegative - PositiveNOMS HealthcarepH, UA6.55 - 9NOMS HealthcareProtein, UANegativeNegative - 2000(20) ++++ mg/dLNOMS HealthcareSpec Grav, UA1.011 - 1.03 NOMS HealthcareUrobilinogen, UA0.20.2 - 12 mg/dLNOMS HealthcareNOMS HealthcareUS OB LIMITED 1+ FETUSESon 84-23-6304AT OB LIMITED 1+ FETUSESEXAM: US OB LIMITED 1+ FETUSES HISTORY: Follow [...] II, MD, PHD at 28-Feb-2025 11:32:13 PM [facility] [place] TeleradiologyNormalNot AvailableComment on above:Order Comment: US OB VIABILITY PLEASE PERFORM TRANSVAGINAL ULTRASOUND IF INDICATED Patient's last menstrual period was 11/18/2024 (approximate).BOX TESTon 89-20-3601LCD TEST SENT OUTUNITY BOXNOMD WnzdoayinzUUA0SFRHURCIC HealthcareBOX2 01/30/25NOMD HealthcareCLINISYNCNOMS HealthcareHCG ( test) Ql (U)on 93-49-2790Zkmsdkkokobnls and review of laboratory resultsAbnormalNOMS Healthcare Preg Test, UrPositiveNegativeNOMS HealthcareNOMS HealthcareUS OB TRANSVAGINALon 09-79-8690NE OB TRANSVAGINALEXAM: US OB TRANSVAGINAL HISTORY: Dating. . LMP [...] II, MD, PHD at 20-Jan-2025 09:44:55 AM [facility] [place] TeleradiologyNormalNot AvailableComment on above:Order Comment: US OB TRANSVAGINAL No LMP recorded.Urinalysis macro (dipstick) panel (U)on 15-89-4679Cxnbgmswj, UA NegativeNegative - 4(70) +++ mg/dLNOMS HealthcareBlood, UANegativeNegative - 50 Cedric/mcLNOMS HealthcareClarity, UAClearNOMS HealthcareColor, UAYellowNOMS HealthcareGlucose, UANegativeNegative - 2000(110) ++++ mg/dLNOMS Healthcare Interpretation and review of laboratory resultsNormPenn State Health Holy Spirit Medical CenterKetones, UA NegativeNegative - 160(16) ++++ mg/dLChildren's Mercy HospitalLeukocytes, UANegative Negative - 500+++ Alessandro/mcLNOSaint Luke's North Hospital–Barry RoadNitrite, UANegativeNegative - Positive [facility] HealthcarepH, UA7.55 - 9NOMS HealthcareProtein, UATraceNegative - 2000(20) ++++ mg/dLNOMD HealthcareSpec Grav, UA1.021 - 1.03NOMD HealthcareUrobilinogen, UA0.20.2 - 12 mg/dLNOGundersen St Joseph's Hospital and ClinicsHCG ( test) Ql (U)on 95-38-2265Refqepdpjnakju and review of laboratory resultsNoAmerican Academic Health System Preg Test, UrNegativeNegativeNOMercy Hospital Washington HealthcareIGP,APTIMA HPV,AGE GDLNon 37-45-4494NJV GDLN ACOG TESTINGNote.Children's Mercy HospitalComment on above:TESTS RESULT FLAG UNITS REF RANGE LAB Clinician Provided Cytology Information Source.............Cervix;Endocervix No. of containers..01 ThinPrep Vial Age Algo ACOG Zari... - 01 FLAG LEGEND: L-Low Normal,H-High Normal,LL-Alert Low,HH-Alert High <-Panic Low,>-Panic High,A-Abnormal,AA-Critical Abnormal Performed at: 01 =G [facility] [place] [address] Dian Gauthier MD, IGP, RFX APTIMA HPV ASCUNote.NOMS HealthcareComment on above:TESTS RESULT FLAG UNITS REF RANGE LAB DIAGNOSIS: 02 NEGATIVE FOR INTRAEPITHELIAL LESION OR MALIGNANCY. Specimen adequacy: 02 Satisfactory for evaluation. Endocervical and/or squamous metaplastic cells (endocervical component) are present. Performed by: 02 Nohelia Deleon, Factory Maintenance Manager ([facility]) . 02 Note: Note 02 The [...] <-Panic Low,>-Panic High,A-Abnormal,AA-Critical Abnormal Performed at: [address] [facility] [place] [address] Dian Gauthier MD, Performed at: =G - [facility] [id number] Irrigator Overhead: Dian Gauthier MD, Phone: [phone] Performed at: [facility] [id number] Irrigator Overhead: Dian Gauthier MD, Phone: [phone] BRUSH-SPATULA CERVIX ENDOCERVIX CLINISYNCNOMS HealthcareHCG ( test) Ql (U)on 62-61-3273Wvmtulkogjgmzx and review of laboratory resultsNormalNOMS HealthcarePreg Test, UrNegative NegativeNOMS HealthcareNOMS HealthcareUrinalysis macro (dipstick) panel (U)on 93-66-7527Rqxtavcsy, UANegativeNegative - 4(70) +++ mg/dLNOMS HealthcareBlood, UANegativeNegative - 50 Cedric/mcLNOMS HealthcareClarity, UAClearNOMS Healthcare Color, UAColorlessNOMS HealthcareGlucose, UANegativeNegative - 2000(110) ++++ mg/dLNOMS HealthcareInterpretation and review of laboratory resultsNormalNOMS HealthcareKetones, UANegativeNegative - 160(16) ++++ mg/dLNOMS Healthcare Leukocytes, UANegativeNegative - 500+++ Alessandro/mcLNOMS HealthcareNitrite, UA NegativeNegative - PositiveNOMS HealthcarepH, UA6.55 - 9NOMS HealthcareProtein, UANegativeNegative - 2000(20) ++++ mg/dLNOMS HealthcareSpec Grav, UA1.011 - 1.03 NOMS HealthcareUrobilinogen, UA0.20.2 - 12 mg/dLNOMS HealthcareNOMS HealthcareUS OB BPP W NON-STRESSon 77-40-[place]679[place]xa[place], [place] [address] Ultrasound Report Signed Patient: JUANPABLO CHAPARRO MR#: [id number] : 2000 Acct:[id number] Age/Sex: 23 / F ADM Date: 01/20/24 Loc: [facility] 254-[address]: Devyn Tello D.O. Ordering Physician: Devyn Tello D.O. Date of Service: 01/20/24 Procedure(s): US OB BPP w non-stress Accession Number(s): [id number] cc: ADRYAN MARIE ; Devyn Tello D.O. The [address] [address] Patient Name: JUANPABLO CHAPARRO MRN: TBH:[id number] date: 2000 Sex: F Assigned Patient Location: US Current Patient Location: [facility] Accession/Order Number: [id number] Exam Date: 01/20/2024 10:00 Report Date: 01/20/2024 10:29 At the request of: DEVYN TELLO Procedure: US OB BPP w non-stress [...] calcifications and internal cysts. Electronically authenticated by: WILBERT CASIANO Date: 01/20/2024 10:29 Dictated By: Wilbert Casiano M.D. Signed By: 01/20/24 1032 DD/ 1029 TD/TT: Labor Specialist:TBHRadiology, Radiologist, MD - 01/20/2024 [place] [address] Ultrasound Report Signed Patient: JUANPABLO CHAPARRO MR#: [id number] : 2000 Acct:[id number] Age/Sex: 23 / F ADM Date: 01/20/24 Loc: [facility] 254-[address]: Devyn Tello D.O. Ordering Physician: Devyn Tello D.O. Date of Service: 01/20/24 Procedure(s): US OB BPP w non-stress Accession Number(s): [id number] cc: ADRYAN MARIE ; Devyn Tello D.O. The [place] [id number] Patient Name: JUANPABLO CHAPARRO MRN: TBH:[id number] date: 2000 Sex: F Assigned Patient Location: US Current Patient Location: [facility] Accession/Order Number: [id number] Exam Date: 01/20/2024 10:00 Report Date: 01/20/2024 10:29 At the request of: DEVYN TELLO Procedure: US OB BPP w non-stress [...] calcifications and internal cysts. Electronically authenticated by: WILBERT CASIANO Date: 01/20/2024 10:29 Dictated By: Wilbert Casiano M.D. Signed By: 01/20/24 1032 DD/ 1029 TD/TT: Labor Specialist: MARION HealthcareRadiology Study observation (narrative)NOMSamina JhaveriUS OB BPP W NON-STRESSOrdered By: Radiologist Radiology on 58-56-6106DXX[facility] Healthcare Work Phone: US OB GROWTHon [phone] [address] Ultrasound Report Signed Patient: JUANPABLO CHAPARRO MR#: [id number] : 2000 Acct:[id number] Age/Sex: 23 / F ADM Date: 01/14/24 Loc: [facility] Attending Dr: Devyn Tello D.O. Ordering Physician: Devyn Tello D.O. Date of Service: 01/14/24 Procedure(s): US OB growth Accession Number(s): [id number] cc: ADRYAN MARIE ; Devyn Tello D.O. The [address] [address] Patient Name: JUANPABLO CHAPARRO MRN: [facility]:[id number] date: 2000 Sex: F Assigned Patient Location: [facility] Current Patient Location: [facility] Accession/Order Number: [id number] Exam Date: 01/14/2024 15:09 Report Date: 01/14/2024 15:57 At the request of: DEVYN TELLO Procedure: US OB growth EXAMINATION: US [...] greater than 97th percentile. Electronically authenticated by: WILBERT CASIANO Date: 01/14/2024 15:57 Dictated By: Wilbert Casaino M.D. Signed By: 01/14/24 1600 DD/ 1557 TD/TT: Labor Specialist:TBHRadiology, Radiologist, - 01/14/2024 [place] [address] Ultrasound Report Signed Patient: JUANPABLO CHAPARRO MR#: [id number] : 2000 Acct:[id number] Age/Sex: 23 / F ADM Date: 01/14/24 Loc: [facility] Attending Dr: Devyn Tello D.O. Ordering Physician: Devyn Tello D.O. Date of Service: 01/14/24 Procedure(s): US OB growth Accession Number(s): [id number] cc: ADRYAN MARIE ; Devyn Tello D.O. The [place] [address] Patient Name: JUANPABLO CHAPARRO MRN: TBH:[id number] date: 2000 Sex: F Assigned Patient Location: [facility] Current Patient Location: [facility] Accession/Order Number: [id number] Exam Date: 01/14/2024 15:09 Report Date: 01/14/2024 15:57 At the request of: DEVYN TELLO Procedure: US OB growth EXAMINATION: US [...] greater than 97th percentile. Electronically authenticated by: WILBERT Key: 01/14/2024 15:57 Dictated By: Wilbert Casiano M.D. Signed By: 01/14/24 1600 DD/ 1557 TD/TT: Labor Specialist: MARION HealthcareRadiology Study observation (narrative)MARION HealthcareUS OB GROWTHOrdered By: Radiologist Radiology on 53-50-3165R[facility] Work Phone: US OB BPP W NON-STRESSon [phone], [place] [address] Ultrasound Report Signed Patient: JUANPABLO CHAPARRO MR#: [id number] : 2000 Acct:[id number] Age/Sex: 23 / F ADM Date: 01/13/24 Loc: US Attending Dr: Devyn Tello D.O. Ordering Physician: Devyn Tello D.O. Date of Service: 01/13/24 Procedure(s): US OB BPP w non-stress Accession Number(s): [id number] cc: ADRYAN MARIE ; Devyn Tello D.O. The [place] [address] Patient Name: JUANPABLO CHAPARRO MRN: TBH:[id number] date: 2000 Sex: F Assigned Patient Location: [facility] Current Patient Location: Accession/Order Number: [id number] Exam Date: 01/13/2024 10:00 Report Date: 01/13/2024 11:39 At the request of: DEVYN TELLO Procedure: US OB BPP w non-stress [...] profile score: 8.0 Electronically authenticated by: ADRYAN PRETTY Date: 01/13/2024 11:39 Dictated By: Adryan Pretty M.D. Signed By: 01/13/24 1142 DD/ 1139 TD/TT: Labor Specialist:FRANKadiolMichael farrell, - 01/13/2024 [place] [address] Ultrasound Report Signed Patient: JUANPABLO CHAPARRO MR#: [id number] : 2000 Acct:[id number] Age/Sex: 23 / F ADM Date: 01/13/24 Loc: US Attending Dr: Devyn Tello D.O. Ordering Physician: Devyn Tello D.O. Date of Service: 01/13/24 Procedure(s): US OB BPP w non-stress Accession Number(s): [id number] cc: ADRYAN MARIE ; Devyn Tello D.O. The [place] [address] Patient Name: JUANPABLO CHAPARRO MRN: [facility]:[id number] date: 2000 Sex: F Assigned Patient Location: [facility] Current Patient Location: Accession/Order Number: [id number] Exam Date: 01/13/2024 10:00 Report Date: 01/13/2024 11:39 At the request of: DEVYN TELLO Procedure: US OB BPP w non-stress [...] profile score: 8.0 Electronically authenticated by: ADRYAN PRETTY Date: 01/13/2024 11:39 Dictated By: Adryan Pretty M.D. Signed By: 01/13/24 1142 DD/ 1139 TD/TT: Labor Specialist: MARION JhaveriRadiology Study observation (narrative)MARION JhaveriUS OB BPP W NON-STRESSOrdered By: Radiologist Radiology on 53-38-8522[facility] Work Phone: US OB GROWTHon [phone], [place] [address] Ultrasound Report Signed Patient: JUANPABLO CHAPARRO MR#: [id number] : 2000 Acct:[id number] Age/Sex: 23 / F ADM Date: 01/13/24 Loc: US Attending Dr: Devyn Tello D.O. Ordering Physician: Devyn Tello D.O. Date of Service: 01/13/24 Procedure(s): US OB growth Accession Number(s): [id number] cc: ADRYAN MARIE ; Devyn Tello D.O. [address] [address] Patient Name: JUANPABLO CHAPARRO MRN: TBH:[id number] date: 2000 Sex: F Assigned Patient Location: [facility] Current Patient Location: Accession/Order Number: [id number] Exam Date: 01/13/2024 10:00 Report Date: 01/13/2024 11:40 At the request of: DEVYN TELLO Procedure: US OB growth EXAMINATION: US [...] Normal interval growth Electronically authenticated by: ADRYAN PRETTY Date: 01/13/2024 11:40 Dictated By: Adryan Pretty M.D. Signed By: 01/13/24 1143 DD/ 1140 TD/TT: Labor Specialist:TBHRadiology, Radiologist, - 01/13/2024 [place] [address] Ultrasound Report Signed Patient: JUANPABLO CHAPARRO MR#: [id number] : 2000 Acct:[id number] Age/Sex: 23 / F ADM Date: 01/13/24 Loc: US Attending Dr: Devyn Tello D.O. Ordering Physician: Devyn eTllo D.O. Date of Service: 01/13/24 Procedure(s): US OB growth Accession Number(s): [id number] cc: ADRYAN MARIE ; Devyn Tello D.O. The [place] [address] Patient Name: JUANPABLO CHAPARRO MRN: [facility]:[id number] date: 2000 Sex: F Assigned Patient Location: [facility] Current Patient Location: Accession/Order Number: [id number] Exam Date: 01/13/2024 10:00 Report Date: 01/13/2024 11:40 At the request of: DEVYN TELLO Procedure: US OB growth EXAMINATION: US [...] Normal interval growth Electronically authenticated by: ADRYAN PRETTY Date: 01/13/2024 11:40 Dictated By: Adryan Pretty M.D. Signed By: 01/13/24 1143 DD/ 1140 TD/TT: Labor Specialist: MARION HealthcareRadiology Study observation (narrative)[facility] HospitalUS OB GROWTHOrdered By: Radiologist Radiology on 27-49-5762P[facility] Work Phone: US OB BPP W NON-STRESSon [phone], [place] [address] Ultrasound Report Signed Patient: JUANPABLO CHAPARRO MR#: [id number] : 2000 Acct:[id number] Age/Sex: 23 / F ADM Date: 01/06/24 Loc: [facility] 254-[address]: Devyn Tello D.O. Ordering Physician: Devyn Tello D.O. Date of Service: 01/06/24 Procedure(s): US OB BPP w non-stress Accession Number(s): [id number] cc: ADRYAN MARIE Corey D.O. The [address] [address] Patient Name: JUANPABLO CHAPARRO MRN: TBH:[id number] date: 2000 Sex: F Assigned Patient Location: [facility] Current Patient Location: [facility] Accession/Order Number: [id number] Exam Date: 01/06/2024 09:58 Report Date: 01/06/2024 10:39 At the request of: DEVYN TELLO Procedure: US OB BPP w non-stress [...] profile score: 8.0 Electronically authenticated by: ADRYAN PRETTY Date: 01/06/2024 10:39 Dictated By: Adryan Pretty M.D. Signed By: 01/06/24 1044 DD/ 1039 TD/TT: Labor Specialist:TBHRadiology, Radiologist, MD - 01/06/2024 [place] [address] Ultrasound Report Signed Patient: JUANPABLO CHAPARRO MR#: [id number] : 2000 Acct:[id number] Age/Sex: 23 / F ADM Date: 01/06/24 Loc: [facility] 254-[address]: Devyn Tello D.O. Ordering Physician: Devyn Tello D.O. Date of Service: 01/06/24 Procedure(s): US OB BPP w non-stress Accession Number(s): [id number] cc: ADRYAN MARIE ; Devyn Tello D.O. The [address] [address] Patient Name: JUANPABLO CHAPARRO MRN: TBH:[id number] date: 2000 Sex: F Assigned Patient Location: [facility] Current Patient Location: [facility] Accession/Order Number: [id number] Exam Date: 01/06/2024 09:58 Report Date: 01/06/2024 10:39 At the request of: DEVYN TELLO Procedure: US OB BPP w non-stress [...] profile score: 8.0 Electronically authenticated by: ADRYAN PRETTY Date: 01/06/2024 10:39 Dictated By: Adryan Pretty M.D. Signed By: 01/06/24 1044 DD/ 1039 TD/TT: Labor Specialist: MARION HealthcareRadiology Study observation (narrative)NOMS HealthcareUS OB BPP W NON-STRESSOrdered By: Radiologist Radiology on 54-51-2985[employer] Work Phone: US OB BPP W NON-STRESSon [phone] [place] [address] Ultrasound Report Signed Patient: JUANPABLO CHAPARRO MR#: [id number] : 2000 Acct:[id number] Age/Sex: 23 / F ADM Date: 12/30/23 Loc: [facility] 250-[address]: Devyn Tello D.O. Ordering Physician: Devyn Tello D.O. Date of Service: 12/30/23 Procedure(s): US OB BPP w non-stress Accession Number(s): [id number] cc: ADRYAN MARIE Corey D.O. The [address] [address] Patient Name: JUANPABLO CHAPARRO MRN: TBH:[id number] date: 2000 Sex: F Assigned Patient Location: [facility] Current Patient Location: [facility] Accession/Order Number: [id number] Exam Date: 12/30/2023 10:05 Report Date: 12/30/2023 10:41 At the request of: DEVYN TELLO Procedure: US OB BPP w non-stress [...] biophysical profile score 8.0. Electronically authenticated by: WILBERT CASIANO Date: 12/30/2023 10:41 Dictated By: Wilbert Casiano M.D. Signed By: 12/30/23 1043 DD/ 104 TD/TT: Labor Specialist:TBHRadiology, Radiologist, MD - 12/30/2023 [place] [address] Ultrasound Report Signed Patient: JUANPABLO CHAPARRO MR#: [id number] : 2000 Acct:[id number] Age/Sex: 23 / F ADM Date: 12/30/23 Loc: [facility] 250-[address]: Devyn Tello D.O. Ordering Physician: Devyn Tello D.O. Date of Service: 12/30/23 Procedure(s): US OB BPP w non-stress Accession Number(s): [id number] cc: ADRYAN MARIE ; Devyn Tello D.O. The [address] [address] Patient Name: JUANPABLO CHAPARRO MRN: TBH:[id number] date: 2000 Sex: F Assigned Patient Location: [facility] Current Patient Location: [facility] Accession/Order Number: [id number] Exam Date: 12/30/2023 10:05 Report Date: 12/30/2023 10:41 At the request of: DEVYN TELLO Procedure: US OB BPP w non-stress [...] biophysical profile score 8.0. Electronically authenticated by: WILBERT CASIANO Date: 12/30/2023 10:41 Dictated By: Wilbert Casiano M.D. Signed By: 12/30/23 104 DD/ 104 TD/TT: Labor Specialist: MARION HealthcareRadiology Study observation (narrative)NOMS HealthcareUS OB BPP W NON-STRESSOrdered By: Radiologist Radiology on 40-89-2478[employer] Work Phone: US OB GROWTHon [phone], [place] [address] Ultrasound Report Signed Patient: JUANPABLO CHAPARRO MR#: [id number] : 2000 Acct:[id number] Age/Sex: 23 / F ADM Date: 12/24/23 Loc: [facility] Attending Dr: Devyn Tello D.O. Ordering Physician: Devyn Tello D.O. Date of Service: 12/24/23 Procedure(s): US OB growth Accession Number(s): [id number] cc: ADRYAN MARIE ; Devyn Tello D.O. The [address] [address] Patient Name: JUANPABLO CHAPARRO MRN: TBH:[id number] date: 2000 Sex: F Assigned Patient Location: [facility] Current Patient Location: [facility] Accession/Order Number: [id number] Exam Date: 12/24/2023 10:06 Report Date: 12/24/2023 10:58 At the request of: DEVYN TELLO Procedure: US OB growth EXAMINATION: US [...] for gestational age Electronically authenticated by: ADRYAN PRETTY Date: 12/24/2023 10:58 Dictated By: Adryan Pretty M.D. Signed By: 12/24/23 1101 DD/ 1058 TD/TT: Labor Specialist:SANJAYHRadiology, Radiologist, - 12/24/2023 [place] [address] Ultrasound Report Signed Patient: JUANPABLO CHAPARRO MR#: [id number] : 2000 Acct:[id number] Age/Sex: 23 / F ADM Date: 12/24/23 Loc: [facility] Attending Dr: Devyn Tello D.O. Ordering Physician: Devyn Tello D.O. Date of Service: 12/24/23 Procedure(s): US OB growth Accession Number(s): [id number] cc: ADRYAN MARIE ; Devyn Tello D.O. The [place] [id number] Patient Name: JUANPABLO CHAPARRO MRN: TBH:[id number] date: 2000 Sex: F Assigned Patient Location: [facility] Current Patient Location: [facility] Accession/Order Number: [id number] Exam Date: 12/24/2023 10:06 Report Date: 12/24/2023 10:58 At the request of: DEVYN TELLO Procedure: US OB growth EXAMINATION: US [...] for gestational age Electronically authenticated by: ADRYAN PRETTY Date: 12/24/2023 10:58 Dictated By: Adryan Pretty M.D. Signed By: 12/24/23 1101 DD/ 1058 TD/TT: Labor Specialist: MARION HealthcareRadiology Study observation (narrative)MARION JhaveriUS OB GROWTHOrdered By: Radiologist Radiology on 29-69-7909[facility] Work Phone: us OB BPP W NON-STRESSon [phone] [address] Ultrasound Report Signed Patient: JUANPABLO CHAPARRO MR#: [id number] : 2000 Acct:[id number] Age/Sex: 23 / F ADM Date: 12/23/23 Loc: US Attending Dr: Devyn Tello D.O. Ordering Physician: Devyn Tello D.O. Date of Service: 12/23/23 Procedure(s): US OB BPP w non-stress Accession Number(s): [id number] cc: ADRYAN MARIE ; Devyn Tello D.O. The [place] [id number] Patient Name: JUANPABLO CHAPARRO MRN: [facility]:[id number] date: 2000 Sex: F Assigned Patient Location: [facility] Current Patient Location: Accession/Order Number: [id number] Exam Date: 12/23/2023 10:00 Report Date: 12/23/2023 10:52 At the request of: DEVYN TELLO Procedure: US OB BPP w non-stress [...] biophysical profile score 8.0. Electronically authenticated by: WILBERT CASIANO Date: 12/23/2023 10:52 Dictated By: Wilbert Casiano M.D. Signed By: 12/23/23 1055 DD/ 1052 TD/TT: Labor Specialist:SANJAYHRadiology, Radiologist, MD - 12/23/2023 [place] [address] Ultrasound Report Signed Patient: JUANPABLO CHAPARRO MR#: [id number] : 2000 Acct:[id number] Age/Sex: 23 / F ADM Date: 12/23/23 Loc: US Attending Dr: Devyn Tello D.O. Ordering Physician: Devyn Tello D.O. Date of Service: 12/23/23 Procedure(s): US OB BPP w non-stress Accession Number(s): [id number] cc: ADRYAN MARIE ; Devyn Tello D.O. The [place] [id number] Patient Name: JUANPABLO CHAPARRO MRN: [facility]:[id number] date: 2000 Sex: F Assigned Patient Location: [facility] Current Patient Location: Accession/Order Number: [id number] Exam Date: 12/23/2023 10:00 Report Date: 12/23/2023 10:52 At the request of: DEVYN TELLO Procedure: US OB BPP w non-stress [...] biophysical profile score 8.0. Electronically authenticated by: WILBERT CASIANO Date: 12/23/2023 10:52 Dictated By: Wilbert Casiano M.D. Signed By: 12/23/23 1055 DD/ 1052 TD/TT: Labor Specialist: NOMSamina HealthcareRadiology Study observation (narrative)NOMS HealthcareUS OB BPP W NON-STRESSOrdered By: Radiologist Radiology on 42-10-9750[facility] Work Phone: US OB BPP W NON-STRESSon [phone], [place] [address] Ultrasound Report Signed Patient: JUANPABLO CHAPARRO MR#: [id number] : 2000 Acct:[id number] Age/Sex: 23 / F ADM Date: 12/16/23 Loc: [facility] 250-[address]: Devyn Omer D.O. Ordering Physician: Devyn Tello D.O. Date of Service: 12/16/23 Procedure(s): US OB BPP w non-stress Accession Number(s): [id number] cc: ADRYAN MARIE ; Devyn Tello D.O. The [address] [address] Patient Name: JUANPABLO CHAPARRO MRN: [facility]:[id number] date: 2000 Sex: F Assigned Patient Location: US Current Patient Location: [facility] Accession/Order Number: [id number] Exam Date: 12/16/2023 10:00 Report Date: 12/16/2023 10:53 At the request of: DEVYN TELLO Procedure: US OB BPP w non-stress [...] profile score: 8.0 Electronically authenticated by: ADRYAN PRETTY Date: 12/16/2023 10:53 Dictated By: Adryan Pretty M.D. Signed By: 12/16/23 1055 DD/ 1053 TD/TT: Labor Specialist:SANJAYHRadiology, Radiologist, - 12/16/2023 [place] [address] Ultrasound Report Signed Patient: JUANPABLO HCAPARRO MR#: [id number] : 2000 Acct:[id number] Age/Sex: 23 / F ADM Date: 12/16/23 Loc: [facility] 250-[address]: Devyn Tello D.O. Ordering Physician: Devyn Tello D.O. Date of Service: 12/16/23 Procedure(s): US OB BPP w non-stress Accession Number(s): [id number] cc: ADRYAN MARIE ; Devyn Tello D.O. The [address] [address] Patient Name: JUANPABLO CHAPARRO MRN: [facility]:[id number] date: 2000 Sex: F Assigned Patient Location: US Current Patient Location: [facility] Accession/Order Number: [id number] Exam Date: 12/16/2023 10:00 Report Date: 12/16/2023 10:53 At the request of: DEVYN TELLO Procedure: US OB BPP w non-stress [...] profile score: 8.0 Electronically authenticated by: ADRYAN PRETTY Date: 12/16/2023 10:53 Dictated By: Adryan Pretty M.D. Signed By: 12/16/23 1055 DD/ 1053 TD/TT: Labor Specialist: NOMSamina HealthcareRadiology Study observation (narrative)NOMS HealthcareUS OB BPP W NON-STRESSOrdered By: Radiologist Radiology on 09-93-3374[employer] Work Phone: US OB BPP W NON-STRESSon [phone] [address] Ultrasound Report Signed Patient: JUANPABLO CHAPARRO MR#: [id number] : 2000 Acct:[id number] Age/Sex: 23 / F ADM Date: 12/09/23 Loc: [facility] 250-[address]: Devyn Tello D.O. Ordering Physician: Devyn Tello D.O. Date of Service: 12/09/23 Procedure(s): US OB BPP w non-stress Accession Number(s): [id number] cc: ADRYAN MARIE ; Devyn Tello D.O. The [place] [id number] Patient Name: JUANPABLO CHAPARRO MRN: [facility]:[id number] date: 2000 Sex: F Assigned Patient Location: US Current Patient Location: [facility] Accession/Order Number: [id number] Exam Date: 12/09/2023 09:55 Report Date: 12/09/2023 10:29 At the request of: DEVYN TELLO Procedure: US OB BPP w non-stress [...] biophysical profile score 8.0. Electronically authenticated by: WILBERT CASIANO Date: 12/09/2023 10:29 Dictated By: Wilbert Casiano M.D. Signed By: 12/09/23 1031 DD/ 1029 TD/TT: Labor Specialist:SANJAYHRadiology, Radiologist, MD - 12/09/2023 [place] [address] Ultrasound Report Signed Patient: JUANPABLO CHAPARRO MR#: [id number] : 2000 Acct:[id number] Age/Sex: 23 / F ADM Date: 12/09/23 Loc: [facility] 250-[address]: Devyn Omer D.O. Ordering Physician: Devyn Tello D.O. Date of Service: 12/09/23 Procedure(s): US OB BPP w non-stress Accession Number(s): [id number] cc: ADRYAN MARIE ; Devyn Tello D.O. The [address] [address] Patient Name: JUANPABLO CHAPARRO MRN: [facility]:[id number] date: 2000 Sex: F Assigned Patient Location: US Current Patient Location: [facility] Accession/Order Number: [id number] Exam Date: 12/09/2023 09:55 Report Date: 12/09/2023 10:29 At the request of: DEVYN TELLO Procedure: US OB BPP w non-stress [...] biophysical profile score 8.0. Electronically authenticated by: WILBERT CASIANO Date: 12/09/2023 10:29 Dictated By: Wilbert Casiano M.D. Signed By: 12/09/23 1031 DD/ 1029 TD/TT: Labor Specialist: MARION HealthcareRadiology Study observation (narrative)NOMSamina JhaveriUS OB BPP W NON-STRESSOrdered By: Radiologist Radiology on 00-46-5129[facility] Work Phone: US OB BPP W NON-STRESSon 35-08-3493[place]tv[place], [place] [address] Ultrasound Report Signed Patient: JUANPABLO CHAPARRO MR#: [id number] : 2000 Acct:[id number] Age/Sex: 23 / F ADM Date: 12/01/23 Loc: [facility] 250-[address]: Devyn Tello D.O. Ordering Physician: Devyn Tello D.O. Date of Service: 12/01/23 Procedure(s): US OB BPP w non-stress Accession Number(s): [id number] cc: ADRYAN MARIE ; Devyn Tello D.O. The [place] [address] Patient Name: JUANPABLO CHAPARRO MRN: [facility]:[id number] date: 2000 Sex: F Assigned Patient Location: [facility] Current Patient Location: [facility] Accession/Order Number: [id number] Exam Date: 12/01/2023 15:08 Report Date: 12/01/2023 15:47 At the request of: DEVYN TELLO Procedure: US OB BPP w non-stress [...] profile score: 8.0 Electronically authenticated by: ADRYAN PRETTY Date: 12/01/2023 15:47 Dictated By: Adryan Pretty M.D. Signed By: 12/01/23 1550 DD/ 1547 TD/TT: Labor Specialist:SANJAYHRadiology, Radiologist, - 12/01/2023 [place] [address] Ultrasound Report Signed Patient: JUANPABLO CHAPARRO MR#: [id number] : 2000 Acct:[id number] Age/Sex: 23 / F ADM Date: 12/01/23 Loc: [facility] 250-[address]: Devyn Tello D.O. Ordering Physician: Devyn Tello D.O. Date of Service: 12/01/23 Procedure(s): US OB BPP w non-stress Accession Number(s): [id number] cc: ADRYAN MARIE ; Devyn Tello D.O. [address] [address] Patient Name: JUANPABLO CHAPARRO MRN: [facility]:[id number] date: 2000 Sex: F Assigned Patient Location: [facility] Current Patient Location: [facility] Accession/Order Number: [id number] Exam Date: 12/01/2023 15:08 Report Date: 12/01/2023 15:47 At the request of: DEVYN TELLO Procedure: US OB BPP w non-stress [...] profile score: 8.0 Electronically authenticated by: ADRYAN PRETTY Date: 12/01/2023 15:47 Dictated By: Adryan Pretty M.D. Signed By: 12/01/23 1550 DD/ 1547 TD/TT: Labor Specialist: MARION HealthcareRadiology Study observation (narrative)NOMS HealthcareUS OB BPP W NON-STRESSOrdered By: Radiologist Radiology on [id number] Work Phone: US OB GROWTHon [phone] [address] Ultrasound Report Signed Patient: JUANPABLO CHAPARRO MR#: [id number] : 2000 Acct:[id number] Age/Sex: 23 / F ADM Date: 11/26/23 Loc: [facility] Attending Dr: Devyn Tello D.O. Ordering Physician: Devyn Tello D.O. Date of Service: 11/26/23 Procedure(s): US OB growth Accession Number(s): [id number] cc: ADRYAN MARIE ; Devyn Tello D.O. [place] [address] Patient Name: JUANPABLO CHAPARRO MRN: [facility]:[id number] date: 2000 Sex: F Assigned Patient Location: [facility] Current Patient Location: [facility] Accession/Order Number: [id number] Exam Date: 11/26/2023 10:29 Report Date: 11/26/2023 11:15 At the request of: DEVYN TELLO Procedure: US OB growth EXAMINATION: US [...] weight 88 percentile Electronically authenticated by: ADRYAN PRETTY Date: 11/26/2023 11:15 Dictated By: Adryan Pretty M.D. Signed By: 11/26/23 1118 DD/ 1115 TD/TT: Labor Specialist:TBHRadiology, Radiologist, - 11/26/2023 [place] [address] Ultrasound Report Signed Patient: JUANPABLO CHAPARRO MR#: [id number] : 2000 Acct:[id number] Age/Sex: 23 / F ADM Date: 11/26/23 Loc: [facility] Attending Dr: Devyn Tello D.O. Ordering Physician: Devyn Tello D.O. Date of Service: 11/26/23 Procedure(s): US OB growth Accession Number(s): [id number] cc: ADRYAN MARIE ; Devyn Tello D.O. [address] [place] [address] Patient Name: JUANPABLO CHAPARRO MRN: [id number] date: 2000 Sex: F Assigned Patient Location: [facility] Current Patient Location: [facility] Accession/Order Number: [id number] Exam Date: 11/26/2023 10:29 Report Date: 11/26/2023 11:15 At the request of: DEVYN TELLO Procedure: US OB growth EXAMINATION: US [...] weight 88 percentile Electronically authenticated by: ADRYAN PRETTY Date: 11/26/2023 11:15 Dictated By: Adryan Pretty M.D. Signed By: 11/26/23 1118 DD/ 1115 TD/TT: Labor Specialist: [facility] HealthcareRadiology Study observation (narrative)[facility] HealthcareUS OB GROWTHOrdered By: Radiologist Radiology on [id number] Work Phone: Urinalysis macro (dipstick) panel (U)on 11-12-2023 Bilirubin, UANegativeNegative - 4(70) +++ mg/dLNOMS HealthcareBlood, UANegative Negative - 50 Cedric/mcLNOMS HealthcareClarity, UAClearNOMS HealthcareColor, UA YellowNOMS HealthcareGlucose, UANegativeNegative - 2000(110) ++++ mg/dLNOMS HealthcareInterpretation and review of laboratory resultsNormalNOMS Healthcare Ketones, UANegativeNegative - 160(16) ++++ mg/dLNOMS HealthcareLeukocytes, UA NegativeNegative - 500+++ Alessandro/mcLNOMS HealthcareNitrite, UANegativeNegative - PositiveNOMS HealthcarepH, UA6.05 - 9N[facility]S HealthcareProtein, UANegativeNegative - 2000(20) ++++ mg/dLNOMS HealthcareSpec Grav, UA1.0201 - 1.03[facility] Urobilinogen, UA0.20.2 - 12 mg/dLNOMS HealthcareNOMS HealthcareALL CBC WITH AUTO DIFFon 74-31-1930YRBUBJLLM ABSOLUTE AUTO0.0NOMS HealthcareBasophils/100 WBC (Bld)0.3 %0.2 - 2.0 %[facility] HealthcareEosinophils/100 WBC (Bld)1.0 %0.9 - 7.0 % [facility] HealthcareErythrocyte distribution width (RBC) [Ratio]12.5 %11.0 - 15.0 % [facility] HealthcareHematocrit (Bld) [Volume fraction]35.1 %Low36.0 - 48.0 %[facility] HealthcareHemoglobin (Bld) [Mass/Vol]11.7 g/dLLow12.0 - 16.0 g/dLChildren's Mercy Hospital IMMATURE GRANULOCYTES ABS AUTO0.08HighNOSaint Luke's North Hospital–Barry RoadImmature granulocytes/100 WBC (Bld)0.6 %High0.0 - 0.5 %[facility] Mercy HospitalInterpretation and review of laboratory resultsAbnormalNOMD HealthcareLYMPHOCYTES ABSOLUTE AUTO1.6NOSaint Luke's North Hospital–Barry RoadLymphocytes/100 WBC (Bld)11.9 %Low20.5 - 60.0 %[facility] HospitalH (RBC) [Entitic mass]30.7 pg26.7 - 34.0 pgSaint John's Saint Francis HospitalHC (RBC) [Mass/Vol] 33.3 g/dL29.9 - 35.2 g/dLSaint John's Saint Francis HospitalV (RBC) [Entitic vol]92.1 fL81.0 - 99.0 fLChildren's Mercy HospitalMONOCYTES ABSOLUTE AUTO0.8NOSaint Luke's North Hospital–Barry RoadMonocytes/100 WBC (Bld)5.5 %1.7 - 12.0 %[facility] HospitalNEUTROPHILS ABSOLUTE AUTO11.1HighChildren's Mercy HospitalNeutrophils/100 WBC (Bld)80.7 %High43.0 - 75.0 %[facility] Platelet mean volume (Bld) [Entitic vol]10.6 fL9.5 - 13.5 fLChildren's Mercy HospitalTB EO #0.1NOMS [facility] HospitalTB VLM292UXMHKansas City VA Medical Center RBC3.81LowNOKansas City VA Medical Center WBC13.8HighChildren's Mercy HospitalCLINISYNCNOMS [facility] HospitalNo Panel InformationOrdered By: Radiologist Radiology on [id number]'s Mercy Hospital Work Phone: No Panel Informationon 69-19-8025Bcsdwyxwy Study observation (narrative)Children's Mercy HospitalUS OB ANATOMYon 59-22-8012[place]peCh[place] [address] Ultrasound Report Signed Patient: JUANPABLO CHAPARRO MR#: [id number] : 2000 Acct:[id number] Age/Sex: 23 / F ADM Date: 09/17/23 Loc: US Attending Dr: Devyn Tello D.O. Ordering Physician: Devyn Tello D.O. Date of Service: 09/17/23 Procedure(s): US OB anatomy Accession Number(s): [id number] cc: ADRYAN MARIE ; Devyn Tello D.O. [address] [address] Patient Name: JUANPABLO CHAPARRO MRN: [id number] date: 2000 Sex: F Assigned Patient Location: US Current Patient Location: US Accession/Order Number: [id number] Exam Date: 09/17/2023 08:38 Report Date: 09/17/2023 22:25 At the request of: DEVYN TELLO Procedure: US OB anatomy EXAMINATION: US [...] with growth detailed above. Electronically authenticated by: WILBERT CASIANO Date: 09/17/2023 22:25 Dictated By: Wilbert Casiano M.D. Signed By: 09/17/232226 DD/ 24 TD/TT: Labor Specialist:SANJAYHRadiology, Radiologist, - 09/17/2023 [place] [address] Ultrasound Report Signed Patient: JUANPABLO CHAPARRO MR#: [id number] : 2000 Acct:[id number] Age/Sex: 23 / F ADM Date: 09/17/23 Loc: US Attending Dr: Devyn Tello D.O. Ordering Physician: Devyn Tello D.O. Date of Service: 09/17/23 Procedure(s): US OB anatomy Accession Number(s): [id number] cc: ADRYAN MARIE ; Devyn Tello D.O. The [place] [id number] Patient Name: JUANPABLO CHAPARRO MRN: [id number] date: 2000 Sex: F Assigned Patient Location: US Current Patient Location: US Accession/Order Number: [id number] Exam Date: 09/17/2023 08:38 Report Date: 09/17/2023 22:25 At the request of: DEVYN TELLO Procedure: US OB anatomy EXAMINATION: US [...] with growth detailed above. Electronically authenticated by: WILBERT CASIANO Date: 09/17/2023 22:25 Dictated By: Wilbert Casiano M.D. Signed By: 09/17/232226 DD/ 24 TD/TT: Labor Specialist: MARION Armendariz OB CERVICAL LENGTHon [id number] [address] Ultrasound Report Signed Patient: JUANPABLO CHAPARRO MR#: [id number] : 2000 Acct:[id number] Age/Sex: 23 / F ADM Date: 09/17/23 Loc: US Attending Dr: Devyn Tello D.O. Ordering Physician: Devyn Tello D.O. Date of Service: 09/17/23 Procedure(s): US OB cervical length Accession Number(s): [id number] cc: ADRYAN MARIE ; Devyn Tello D.O. The [place] [id number] Patient Name: JUANPABLO CHAPARRO MRN: [id number] date: 2000 Sex: F Assigned Patient Location: US Current Patient Location: US Accession/Order Number: [id number] Exam Date: 09/17/2023 08:38 Report Date: 09/17/2023 22:25 At the request of: DEVYN TELLO Procedure: US OB cervical length EXAMINATION: [...] with growth detailed above. Electronically authenticated by: WILBERT CASIANO Date: 09/17/2023 22:25 Dictated By: Wilbert Casiano M.D. Signed By: 09/17/232226 DD/ 24 TD/TT: Labor Specialist:TBHRadiology, Radiologist, MD - 09/17/2023 [place] [address] Ultrasound Report Signed Patient: JUANPABLO CHAPARRO MR#: [id number] : 2000 Acct:[id number] Age/Sex: 23 / F ADM Date: 09/17/23 Loc: US Attending Dr: Devyn Tello D.O. Ordering Physician: Omer,Devyn D.O. Date of Service: 09/17/23 Procedure(s): US OB cervical length Accession Number(s): [id number] cc: ADRYAN MARIE Corey D.O. [address] [address] Patient Name: JUANPABLO CHAPARRO MRN: [id number] date: 2000 Sex: F Assigned Patient Location: US Current Patient Location: US Accession/Order Number: [id number] Exam Date: 09/17/2023 08:38 Report Date: 09/17/2023 22:25 At the request of: DEVYN TELLO Procedure: US OB cervical length EXAMINATION: [...] with growth detailed above. Electronically authenticated by: WILBERT CASIANO Date: 09/17/2023 22:25 Dictated By: Wilbert Casiano M.D. Signed By: 09/17/232226 DD/ 24 TD/TT: Labor Specialist: MARION [facility] AUTO DIFFon 40-39-6537TNFE #0.0 103/ulNormal0.0-0.1The [facility] HospitalComment on above:Performed By: #### BMP, TSH #### [facility] [address] [place] [address] Dr. Reema MirelesBasophils/100 WBC (Bld)0.6 %Normal0.2-2.0The [facility] Comment on above:Performed By: #### BMP, TSH #### [facility] [address] [place] [address] Dr. Reema Lowe #0.0 103/ulNormal0.0-0.7The [facility] HospitalComment on above: Performed By: #### BMP, TSH #### [facility] [address] [place] [address] Dr. Reema Carpenterosinophils/100 WBC (Bld)0.6 %Critically low0.9-7.0The [facility] HospitalComment on above:Performed By: #### BMP, TSH #### [facility] [address] [place] [address] Dr. Reema Carpenterrythrocyte distribution width (RBC) [Ratio]11.9 %Xmoqiw51.0-15.0 The [facility] HospitalComment on above:Performed By: #### BMP, TSH #### [facility] [address] [place] [address] Dr. Reema MirelesHematocrit (Bld) [Volume fraction]37.8 %Nolvkl97.0-48.0The [facility] HospitalComment on above:Performed By: #### BMP, TSH #### [facility] [address] [place] [address] Dr. Reema MirelesHemoglobin (Bld) [Mass/Vol]13.5 g/oEFcawdf37.0-16.0The [facility] HospitalComment on above:Performed By: #### BMP, TSH #### [facility] [address] [place] [address] [address] Reema Rocha #0.01 10e3/ulNormal0.00-0.03The [facility] on above:Performed By: #### BMP, TSH #### [facility] [address] [place] [address] [address] Reema Rocha %0.2 %Normal0.0-0.5The [facility] HospitalCommclaren [place] on above: Performed By: #### BMP, TSH #### [facility] [address] [place] [address] Dr. Reema Zayas #1.6 103/ulNormal1.2-3.8The [facility] HospitalCommclaren [place] on above:Performed By: #### BMP, TSH #### [facility] [address] [place] [address] Dr. Reema Kimhocytes/100 WBC (Bld)25.5 %Kkptts37.5-60.0The [facility] HospitalCommclaren [facility] on above:Performed By: #### BMP, TSH #### [facility] [address] [place] [address] Dr. Reema StephensUAL DIFF REQNONormalThe [facility] HospitalCommclaren [place] on above: Performed By: #### BMP, TSH #### [facility] [address] [place] [address] Dr. Reema Vincent (RBC) [Entitic mass]30.9 ipOlkqtc05.7-34.0The [facility] HospitalComment on above:Performed By: #### BMP, TSH #### [facility] [address] [place] [address] Dr. Reema Vincent (RBC) [Mass/Vol]35.7 g/dLCritically high29.9-35.2The [facility] HospitalComment on above:Performed By: #### BMP, TSH #### [facility] [address] [place] [address] Dr. Reema Vincent (RBC) [Entitic vol]86.5 hTOgxaif91.0-99.0The [facility] HospitalComment on above:Performed By: #### BMP, TSH #### [facility] [address] [place] [address] Dr. Reema Weller #0.5 103/ulNormal0.3-0.8The [facility] HospitalComment on above:Performed By: #### BMP, TSH #### [facility] [address] [place] [address] Dr. Reema Galiciaocytes/100 WBC (Bld)8.5 %Normal1.7-12.0The [facility] Comment on above:Performed By: #### BMP, TSH #### [facility] [address] [place] [address] Dr. Reema Bradshaw #4.1 103/ulNormal1.4-6.5The [facility] HospitalComment on above:Performed By: #### BMP, TSH #### [facility] [address] [place] [address] Dr. Reema Fischerutrophils/100 WBC (Bld)64.6 %Dolwev55.0-75.0The [facility] HospitalComment on above:Performed By: #### BMP, TSH #### [facility] [address] [place] [address] Dr. Reema Rivero mean volume (Bld) [Entitic vol]9.9 fLNormal9.5-13.5The [facility] HospitalComment on above:Performed By: #### BMP, TSH #### [facility] [address] [place] [address] Dr. Reema WatkinsT403 103/boQxyqlg212-830Ifi [facility] HospitalComment on above: Performed By: #### BMP, TSH #### [facility] [address] [place] [address] Dr. Reema SorensenC4.37 106/ulNormal4.20-5.40The [facility] HospitalComment on above:Performed By: #### BMP, TSH #### [facility] [address] [place] [address] Dr. Reema MirelesWBC6.3 103/ulNormal4.0-11.0The [facility] HospitalComment on above: Performed By: #### BMP, TSH #### [facility] [address] [place] [address] Dr. Reema Chung 14(COMP METB)on 20-43-9990Kqgpqlh [Mass/Vol]4.3 g/dLNormal 3.4-5.0The [facility] HospitalComment on above:Performed By: #### BMP, TSH #### [facility] [address] [place] [address] Dr. Reema MirelesAlbumin/Globulin [Mass ratio]1.2 {ratio}NormalThe [facility] HospitalComment on above:Performed By: #### BMP, TSH #### [facility] [address] [place] [address] Dr. Reema Porter [Catalytic activity/Vol]79 U/LSoxcpy22-330Wec [facility] HospitalComment on above:Performed By: #### BMP, TSH #### [facility] [address] [place] [address] Dr. Reema Johnson [Catalytic activity/Vol]31 U/HYlwxcs41-62Dky [facility] HospitalComment on above:Performed By: #### BMP, TSH #### [facility] [address] [place] [address] Dr. Reema Tan gap [Moles/Vol]12.1 mmol/LNormalThe [facility] Comment on above:Performed By: #### BMP, TSH #### [facility] [address] [place] [address] Dr. Reema Edward [Catalytic activity/Vol]17 U/CXrfhcy28-22Tnu [facility] HospitalComment on above:Performed By: #### BMP, TSH #### [facility] [address] [place] [address] Dr. Reema MirelesBilirubin [Mass/Vol]0.4 mg/dLNormal0.2-1.0The [facility] Comment on above:Performed By: #### BMP, TSH #### [facility] [address] [address] [address] Reema MirelesCalcium [Mass/Vol]8.9 mg/dLNormal8.5-10.1The [facility] Comment on above:Performed By: #### BMP, TSH #### [facility] [address] [place] [address] Dr. Reema MirelesChloride [Moles/Vol]98 mmol/WRonikf02-204Mgh [facility] Comment on above:Performed By: #### BMP, TSH #### [facility] [address] [place] [address] Dr. Reema MirelesCO2 [Moles/Vol]27.0 mmol/QGhngrk53.0-32.0The [facility] Comment on above:Performed By: #### BMP, TSH #### [facility] [address] [place] [address] Dr. Reema MirelesCreatinine [Mass/Vol]0.65 mg/dLNormal0.55-1.02The [facility] HospitalComment on above:Performed By: #### BMP, TSH #### [facility] [address] [place] [address] Dr. Reema CarpenterGFR-AF SLOVENIAN>60Normal>=60The [facility] HospitalComment on above:Performed By: #### BMP, TSH #### [facility] [address] [place] [address] Dr. Reema CarpenterGFR-NON AF SLOVENIAN>60Normal>=60The [facility] HospitalComment on above:Performed By: #### BMP, TSH #### [facility] [address] [place] [address] Dr. Reema MirelesGlobulin (S) [Mass/Vol]3.5 g/dLNormalThe [facility] HospitalComment on above:Performed By: #### BMP, TSH #### [facility] [address] [place] [address] Dr. Reema MirelesGlucose [Mass/Vol]106 mg/rWEzdrbs44-132Hpo [facility] Comment on above:Performed By: #### BMP, TSH #### [facility] [address] [address] [address] Reema MirelesPotassium [Moles/Vol]3.1 mmol/LCritically low3.5-5.1The [facility] HospitalComment on above:Performed By: #### BMP, TSH #### [facility] [address] [place] [address] Dr. Reema MirelesProtein [Mass/Vol]7.8 g/dLNormal6.4-8.2The [facility] Comment on above:Performed By: #### BMP, TSH #### [facility] [address] [place] [address] Dr. Reema MirelesSodium [Moles/Vol]134 mmol/LCritically mxw133-271Elx [facility] HospitalComment on above:Performed By: #### BMP, TSH #### [facility] [address] [place] [address] Dr. Reema MirelesUrea nitrogen [Mass/Vol]6.0 mg/dLCritically low7.0-18.0The [facility] HospitalComment on above:Performed By: #### BMP, TSH #### [facility] [address] [place] [address] Dr. Reema Britt nitrogen/Creatinine [Mass ratio]9.2 mg/mgNormalThe [facility] HospitalComment on above:Performed By: #### BMP, TSH #### [facility] [address] [place] [address] Dr. Reema MirelesACETONE SERUMon 92-61-9880IFMFSXSCqmahqstVqxqzvSHYDOGEIUmm [facility] HospitalComment on above:Performed By: #### BMP, TSH #### [facility] [address] [place] [address] Dr. Reema BloodC AUTO DIFFon 61-23-3800FXXS #0.1 103/ulNormal0.0-0.1The [facility] HospitalComment on above:Performed By: #### BMP, TSH #### [facility] [address] [place] [address] Dr. Reema MirelesBasophils/100 WBC (Bld)0.5 %Normal0.2-2.0The [facility] Comment on above:Performed By: #### BMP, TSH #### [facility] [address] [place] [address] Dr. Reema Lowe #0.1 103/ulNormal0.0-0.7The [facility] HospitalComment on above: Performed By: #### BMP, TSH #### [facility] [address] [place] [address] Dr. Reema Carpenterosinophils/100 WBC (Bld)0.7 %Critically low0.9-7.0The [facility] HospitalComment on above:Performed By: #### BMP, TSH #### [facility] [address] [place] [address] Dr. Reema Simsthrocyte distribution width (RBC) [Ratio]11.7 %Mjdxzo07.0-15.0 The [facility] HospitalComment on above:Performed By: #### BMP, TSH #### [facility] [address] [place] [address] Dr. Reema MirelesHematocrit (Bld) [Volume fraction]37.6 %Stlxpk41.0-48.0The [facility] HospitalComment on above:Performed By: #### BMP, TSH #### [facility] [address] [place] [address] Dr. Reema MirelesHemoglobin (Bld) [Mass/Vol]13.1 g/cXWezrda89.0-16.0The [facility] HospitalComment on above:Performed By: #### BMP, TSH #### [facility] [address] [place] [address] Dr. Reema Rocha #0.02 10e3/ulNormal0.00-0.03The [facility] HospitalComment on above:Performed By: #### BMP, TSH #### [facility] [address] [place] [address] Dr. Reema Rocha %0.2 %Normal0.0-0.5The [facility] HospitalComment on above: Performed By: #### BMP, TSH #### [facility] [address] [place] [address] Dr. Reema Zayas #2.7 103/ulNormal1.2-3.8The [facility] HospitalComment on above:Performed By: #### BMP, TSH #### [facility] [address] [place] [address] Dr. Reema Kimhocytes/100 WBC (Bld)28.5 %Ukqqhy51.5-60.0The [facility] HospitalComment on above:Performed By: #### BMP, TSH #### [facility] [address] [place] [address] Dr. Reema Puckett DIFF REQNONormalThe [facility] HospitalComment on above: Performed By: #### BMP, TSH #### [facility] [address] [place] [address] Dr. Reema Vincent (RBC) [Entitic mass]30.3 xjKzrbwd55.7-34.0The [facility] HospitalComment on above:Performed By: #### BMP, TSH #### [facility] [address] [place] [address] Dr. Reema Vincent (RBC) [Mass/Vol]34.8 g/xRGkhkne29.9-35.2The [facility] HospitalComment on above:Performed By: #### BMP, TSH #### [facility] [address] [place] [address] Dr. Reema Vincent (RBC) [Entitic vol]87.0 yXBhvukl29.0-99.0The [facility] HospitalComment on above:Performed By: #### BMP, TSH #### [facility] [address] [place] [address] Dr. Reema Weller #0.8 103/ulNormal0.3-0.8The [facility] HospitalComment on above:Performed By: #### BMP, TSH #### [facility] [address] [place] [address] Dr. Reema Galiciaocytes/100 WBC (Bld)8.2 %Normal1.7-12.0The [facility] Comment on above:Performed By: #### BMP, TSH #### [facility] [address] [place] [address] Dr. Reema Bradshaw #5.9 103/ulNormal1.4-6.5The [facility] on above:Performed By: #### BMP, TSH #### [facility] [address] [place] [address] Dr. Reema Fischerutrophils/100 WBC (Bld)61.9 %Abclcg64.0-75.0The [facility] on above:Performed By: #### BMP, TSH #### [facility] [address] [place] [address] Dr. Reema Hodgsonlet mean volume (Bld) [Entitic vol]10.2 fLNormal9.5-13.5The [facility] on above:Performed By: #### BMP, TSH #### [facility] [address] [place] [address] Dr. Reema MirelesPLT382 103/uoYqtaxv885-032Ian [facility] on above: Performed By: #### BMP, TSH #### [facility] [address] [place] [address] Dr. Reema MirelesRBC4.32 106/ulNormal4.20-5.40The [facility] on above:Performed By: #### BMP, TSH #### [facility] [address] [place] [address] Dr. Reema MirelesWBC9.6 103/ulNormal4.0-11.0The [facility] on above: Performed By: #### BMP, TSH #### [facility] [address] [place] [address] Dr. Reema Monae 63-89-4557FJZ [Mass/Vol]mg/LNormal<=1.0The [facility] on above:Performed By: #### BMP, TSH #### [facility] [address] [place] [address] Dr. Reema Griffin URINE PROFILEon 08-49-4859Sttmttvpx Ql (U)NegativeNormal NEGATIVEKettering Health Springfield HospitalComment on above:Performed By: #### BMP, TSH #### [facility] [address] [address] [address] Reema Guzmán (U)CLEARNormalCLEARKettering Health Springfield HospitalComment on above: Performed By: #### BMP, TSH #### [facility] [address] [address] [address] Reema Jiménez (U)LT. YELLOWNormalYELLOWKettering Health Springfield HospitalComment on above:Performed By: #### BMP, TSH #### [facility] [address] [address] [address] Reema Rivas micrscopic examination will be performed if indicated. NormalThe [facility] HospitalComment on above:Performed By: #### BMP, TSH #### [facility] [address] [address] [address] Reema MirelesGlucose Ql (U)NegativeNormalNEGATIVEHarrison Community HospitalComment on above:Performed By: #### BMP, TSH #### [facility] [address] [address] [address] Reema MirelesHemoglobin Ql (U)NegativeNormalNEGATIVEThe [facility] on above:Performed By: #### BMP, TSH #### [facility] [address] [address] [address] Reema MirelesKetones Ql (U)NegativeNormalNEGATIVEHarrison Community HospitalComment on above:Performed By: #### BMP, TSH #### [facility] [address] [address] [address] Reema MirelesLEUKOCYTESNegativeNormalNEGATIVEKettering Health Springfield HospitalComment on above:Performed By: #### BMP, TSH #### [facility] [address] [address] [address] Reema MirelesNitrite Ql (U)NegativeNormalNEGATIVEHarrison Community HospitalComment on above:Performed By: #### BMP, TSH #### [facility] [address] [address] [address] Reema Luna (U)5.5 [pH]Normal5-9The [facility] HospitalComment on above: Performed By: #### BMP, TSH #### [facility] [address] [place] [address] Dr. Reema MirelesSPEC GRAVITY<=1.571Vuvwemvv8.005-<=1.025[facility] Comment on above:Performed By: #### BMP, TSH #### [facility] [address] [place] [address] Dr. Reema Rodriguez PROTEINNegativeNormalNEGATIVE/ TRACEThe [facility] Comment on above:Performed By: #### BMP, TSH #### [facility] [address] [place] [address] Dr. Reema Ward MICRO INDNOT INDICATEDMercy Health West HospitalComment on above:Performed By: #### BMP, TSH #### [facility] [address] [place] [address] Dr. Reema Wingbilinogen Qn (U)0.2 {Renny'U}/dLNormal0.2 - 1.0The [facility] HospitalComment on above:Performed By: #### BMP, TSH #### [facility] [address] [place] [address] Dr. Reema MirelesLIPASEon 53-68-8764Vkzuyn [Catalytic activity/Vol]71.0 U/L Critically low73.0-393.0The [facility] HospitalComment on above:Performed By: #### BMP, TSH #### [facility] [address] [place] [address] Dr. Reema MirelesPREGNANCY URon 17-89-1125ZPDMFPEIE, QUALNegativeNormalNEGATIVEThe Adams County HospitalComment on above:Performed By: #### CVDTBH #### [facility] [address] [place] [address] Dr. Reema Chung 14(COMP METB)on 91-08-4332Xcrerdx [Mass/Vol]4.3 g/dLNormal 3.4-5.0[facility] Community HospitalComment on above:Performed By: #### BMP, TSH #### [facility] [address] [address] [address] Reema MirelesAlbumin/Globulin [Mass ratio]1.2 {ratio}NormalThe [facility] County HospitalComment on above:Performed By: #### BMP, TSH #### [facility] [address] [address] [address] Reema LinP [Catalytic activity/Vol]70 U/VRjozzw84-743Dsh [facility] HospitalCommclaren [facility] on above:Performed By: #### BMP, TSH #### [facility] [address] [address] [address] Reema LinT [Catalytic activity/Vol]16 U/ZRapbww88-93Tos [facility] on above:Performed By: #### BMP, TSH #### [facility] [address] [address] [address] Reema Tonyon gap [Moles/Vol]10.5 mmol/LNormalThe [facility] Comment on above:Performed By: #### BMP, TSH #### [facility] [address] [address] [address] Reema MirelesAST [Catalytic activity/Vol]8 U/LCritically qhp70-42Hgk [facility] on above:Performed By: #### BMP, TSH #### [facility] [address] [address] [address] Reema MirelesBilirubin [Mass/Vol]0.3 mg/dLNormal0.2-1.0The [facility] Comment on above:Performed By: #### BMP, TSH #### [facility] [address] [address] [address] Reema MirelesCalcium [Mass/Vol]9.0 mg/dLNormal8.5-10.1The [facility] Comment on above:Performed By: #### BMP, TSH #### [facility] [address] [address] [address] Reema MirelesChloride [Moles/Vol]104 mmol/TGdbgsr48-953Cfr [facility] Comment on above:Performed By: #### BMP, TSH #### [facility] [address] [address] [address] Reema MirelesCO2 [Moles/Vol]26.5 mmol/VLtnfau98.0-32.0The [facility] Comment on above:Performed By: #### BMP, TSH #### [facility] [address] [address] [address] Reema MirelesCreatinine [Mass/Vol]0.79 mg/dLNormal0.55-1.02The [facility] HospitalComment on above:Performed By: #### BMP, TSH #### [facility] [address] [address] [address] Reema CarpenterGFR-AF SLOVENIAN>60Normal>=60The [facility] HospitalComment on above:Performed By: #### BMP, TSH #### [facility] [address] [address] [address] Reema CarpenterGFR-NON AF SLOVENIAN>60Normal>=60The [facility] HospitalComment on above:Performed By: #### BMP, TSH #### [facility] [address] [address] [address] Reema MirelesGlobulin (S) [Mass/Vol]3.5 g/dLNormalThe [facility] HospitalComment on above:Performed By: #### BMP, TSH #### [facility] [address] [address] [address] Reema MirelesGlucose [Mass/Vol]106 mg/fZJoedgy54-265Uwi [facility] Comment on above:Performed By: #### BMP, TSH #### [facility] [address] [address] [address] Reema MirelesPotassium [Moles/Vol]3.0 mmol/LCritically low3.5-5.1The [facility] HospitalComment on above:Performed By: #### BMP, TSH #### [facility] [address] [address] [address] Reema MirelesProtein [Mass/Vol]7.8 g/dLNormal6.4-8.2The [facility] Comment on above:Performed By: #### BMP, TSH #### [facility] [address] [place] [address] Dr. Reema Melissadium [Moles/Vol]138 mmol/LZxxntv860-893GszHarrison Community Hospital Comment on above:Performed By: #### BMP, TSH #### [facility] [address] [place] [address] Dr. Reema Britt nitrogen [Mass/Vol]8.0 mg/dLNormal7.0-18.0[facility] HospitalComment on above:Performed By: #### BMP, TSH #### [facility] [address] [place] [address] Dr. Reema Britt nitrogen/Creatinine [Mass ratio]10.1 mg/mgNoSuburban Community Hospital & Brentwood HospitalComment on above:Performed By: #### BMP, TSH #### [facility] [address] [place] [address] Dr. Reema Walters 38-67-5904OYC Coag (PPP) [Relative time]1.00 {INR} NormalHarrison Community HospitalComment on above:Performed By: #### PT, PTT #### [facility] [address] [place] [address] Dr. Reema Painter GUIDELINESSEE BELOWMercy Health West HospitalComment on above:Result Comment: DESIRED INR: 2.0 - 3.0 CONDITIONS NOT LISTED BELOW 2.5 - 3.5 FOR PROSTHETIC HEART VALVE REPLACEMENT 2.5 - 3.5 RECURRENT THROMBOSIS Performed By: #### PT, PTT #### [facility] [address] [place] [address] Dr. Reema MirelesPT Coag (PPP) [Time]10.8 sNormal9.0-11.6The [facility] Comment on above:Performed By: #### PT, PTT #### [facility] [address] [place] [address] Dr. Reema Rueda 39-50-3854tBJY Coag (Bld) [Time]30.8 pAwfknz54.3-36.2[facility] HospitalComment on above:Performed By: #### PT, PTT #### [facility] [address] [address] [address] Reema Vieyra RATE WESTERGRENon 12-23-5818SIX RATE10 mm/hrNormal<=20The [facility] HospitalComment on above:Performed By: #### BMP, TSH #### [facility] [address] [address] [address] Reema Kruse 85-26-5558KSD1.313 uIU/mLNormal0.358-3.740[facility] Community HospitalComment on above:Performed By: #### BMP, TSH #### [facility] [address] [place] [address] Dr. Reema Boucher Instructionson 04-53-8749Rsnlbilba Instructions [id number]#1.00CD:[address] [place], [place] [address]Comment on above:Other Comment: wrong patientSTOOL CULTUREon 04-20-2022 Campylobacter CultureFinal reportNoSuburban Community Hospital & Brentwood HospitalComment on above: Performed By: #### BMP, TSH #### [facility] [address] [place] [address] Dr. Reema ordoñez Shiga Toxin EIANegativeNormalNegativeHarrison Community Hospital Comment on above:Performed By: #### BMP, TSH #### [facility] [address] [place] [address] Dr. Reema Villarreal 1CommentNoSuburban Community Hospital & Brentwood HospitalComment on above:Result Comment: No Salmonella or Shigella recovered.Performed By: #### BMP, TSH #### [facility] [address] [place] [address] Dr. Reema Villarreal Comment: No Campylobacter species isolated. Salmonella/Shigella ScreenFinal reportMercy Health West HospitalComment on above:Performed By: #### BMP, TSH #### [facility] [address] [place] [address] Dr. Reeam Rodriguez Summary.on 87-36-8900Giknyw Summary. CD:[id number] [file] bGxh (more content not included)...NormalCherrington HospitalC AUTO DIFFon 87-74-3679LCEG #0.1 103/ulNormal0.0-0.1The [facility] HospitalComment on above:Performed By: #### CVDTBH #### [facility] [address] [place] [address] Dr. Reema MirelesBasophils/100 WBC (Bld)0.6 %Normal0.2-2.0The [facility] Comment on above:Performed By: #### CVDTBH #### [facility] [address] [place] [address] Dr. Reema Lowe #0.0 103/ulNormal0.0-0.7The [facility] HospitalComment on above: Performed By: #### CVDTBH #### [facility] [address] [place] [address] Dr. Reema Carpenterosinophils/100 WBC (Bld)0.2 %Critically low0.9-7.0The [facility] HospitalComment on above:Performed By: #### CVDTBH #### [facility] [address] [place] [address] Dr. Reema Carpenterrythrocyte distribution width (RBC) [Ratio]11.4 %Cohpal39.0-15.0 The [facility] County HospitalComment on above:Performed By: #### CVDTBH #### [facility] [address] [place] [address] Dr. Reema MirelesHematocrit (Bld) [Volume fraction]38.3 %Ggucej30.0-48.0The [facility] HospitalComment on above:Performed By: #### CVDTBH #### [facility] [address] [place] [address] Dr. Reema MirelesHemoglobin (Bld) [Mass/Vol]13.4 g/sIUwzrlv61.0-16.0The [facility] HospitalComment on above:Performed By: #### CVDTBH #### [facility] [address] [place] [address] Dr. Reema Rocha #0.01 10e3/ulNormal0.00-0.03The [facility] HospitalComment on above:Performed By: #### CVDTBH #### [facility] [address] [place] [address] Dr. Reema Rocha %0.1 %Normal0.0-0.5The [facility] HospitalComment on above: Performed By: #### CVDTBH #### [facility] [address] [place] [address] Dr. Reema Zayas #1.8 103/ulNormal1.2-3.8The [facility] HospitalComment on above:Performed By: #### CVDTBH #### [facility] [address] [place] [address] Dr. Reema Kimhocytes/100 WBC (Bld)22.2 %Zsjqpb71.5-60.0The [facility] HospitalComment on above:Performed By: #### CVDTBH #### [facility] [address] [place] [address] Dr. Reema StephensUAL DIFF REQNONormalThe [facility] HospitalComment on above: Performed By: #### CVDTBH #### [facility] [address] [place] [address] Dr. Reema Vincent (RBC) [Entitic mass]30.6 omTskhkx44.7-34.0The [facility] HospitalComment on above:Performed By: #### CVDTBH #### [facility] [address] [place] [address] Dr. Reema Vincent (RBC) [Mass/Vol]35.0 g/gZMrukps22.9-35.2The [facility] HospitalComment on above:Performed By: #### CVDTBH #### [facility] [address] [place] [address] Dr. Reema VincentV (RBC) [Entitic vol]87.4 wWTlawow41.0-99.0The [facility]erry Hospitalment on above:Performed By: #### CVDTBH #### [facility] [address] [place] [address] Dr. Reema Weller #0.7 103/ulNormal0.3-0.8The [facility] HospitalComment on above:Performed By: #### CVDTBH #### [facility] [address] [place] [address] Dr. Reema Glaiciaocytes/100 WBC (Bld)8.2 %Normal1.7-12.0The [facility] on above:Performed By: #### CVDTBH #### [facility] [address] [place] [address] Dr. Reema Bradshaw #5.5 103/ulNormal1.4-6.5The [facility] HospitalComment on above:Performed By: #### CVDTBH #### [facility] [address] [place] [address] Dr. Reema Fischerutrophils/100 WBC (Bld)68.7 %Qazanm31.0-75.0The [facility] HospitalComment on above:Performed By: #### CVDTBH #### [facility] [address] [place] [address] Dr. Reema Hodgsonlet mean volume (Bld) [Entitic vol]10.1 fLNormal9.5-13.5The [facility] Hospitalment on above:Performed By: #### CVDTBH #### [facility] [address] [place] [address] Dr. Reema WatkinsT404 103/epVgsmwx015-555Nvz [facility] HospitalComment on above: Performed By: #### CVDTBH #### [facility] [address] [place] [address] Dr. Reema MirelesRBC4.38 106/ulNormal4.20-5.40The [facility] HospitalComment on above:Performed By: #### CVDTBH #### [facility] [address] [place], [place] [address] Dr. Reema MirelesWBC8.0 103/ulNormal4.0-11.0The [facility] HospitalComment on above: Performed By: #### CVDTBH #### [facility] [address] [place], [place] [address] Dr. Reema MirelesCT HEAD WO CONon [id number] HEAD WO CONEXAMINATION: CT HEAD WO CON HISTORY: HEADACHE COMPARISON: [...] Electronically authenticated by: AURELIA CARLOS Date: 2022-04-13 16:29NoSuburban Community Hospital & Brentwood HospitalDischarge Instructionson 52-29-8979Pdznmzree Instructions [id number]#1.00CD:127NormalFisher [facility] CenterED Note-Physicianon [id number] Note-PhysicianBasic Information Time Seen: Lata Hardy M.D. 04/12/2022 19:56 Chief Complaint Pt. presents to the ed with c/o headache and vertigo since thursday. Pt. was seen at [place] and started on prednisone. pt. stopped taking [...] The patient states she was seen at [facility] discharged home. She went to urgent [...] neurological deficit. She has been seen at [facility] and started on prednisone. Possible her [...] ADRYAN MARIE In 3 days 04/15/[address] [place] [address] [facility] (1) Additional Instructions: Return to the [...] data available. Diagnostic Results No qualifying data available.ACMC Healthcare SystemComment on above: Result Comment: Electronically Signed By: Antony Villa, Lata Baxter\.br\Date and Time Signed: 04/13/2204:56 EDTER URINE PROFILEon 71-98-9352Bkoupiamk Ql (U) NegativeNormalNEGATIVEHarrison Community HospitalComment on above:Performed By: #### PREGU, ERUR #### [facility] [address] [place] [address] Dr. Reema Guzmán (U)CLEARNormalCLEARHarrison Community HospitalComment on above: Performed By: #### PREGU, ERUR #### [facility] [address] [address] [address] Reema Jiménez (U)LT. YELLOWNormalYELLOWHarrison Community HospitalComment on above:Performed By: #### PREGU, ERUR #### [facility] [address] [place] [address] Dr. Reema Rivas micrscopic examination will be performed if indicated. NormalHarrison Community HospitalComment on above:Performed By: #### PREGU, ERUR #### [facility] [address] [place] [address] Dr. Yilan ChangGlucose Ql (U)NegativeNormalNEGATIVEHarrison Community HospitalComment on above:Performed By: #### PREGU, ERUR #### [facility] [address] [place] [address] Dr. Reema MirelesHemoglobin Ql (U)NegativeNormalNEGATIVEHarrison Community Hospital Comment on above:Performed By: #### PREGU, ERUR #### [facility] [address] [address] [address] Reema MirelesKetones Ql (U)NegativeNormalNEGATIVEHarrison Community HospitalComment on above:Performed By: #### PREGU, ERUR #### [facility] [address] [place] [address] Dr. Reema MirelesLEUKOCYTESNegativeNormalNEGATIVEHarrison Community HospitalComment on above:Performed By: #### PREGU, ERUR #### [facility] [address] [place] [address] Dr. Reema MirelesNitrite Ql (U)NegativeNormalNEGATIVEHarrison Community HospitalComment on above:Performed By: #### PREGU, ERUR #### [facility] [address] [place] [address] Dr. Reema MirelespH (U)6.5 [pH]Normal5-9[facility] Community HospitalComment on above: Performed By: #### PREGU, ERUR #### [facility] [address] [place] [address] Dr. Reema MirelesSPEC GRAVITY1.199Muhmwl2.005-<=1.025The [facility] HospitalComment on above:Performed By: #### PREGU, ERUR #### [facility] [address] [place] [address] Dr. Reema MirelesUA PROTEINNegativeNormalNEGATIVE/ TRACEHarrison Community Hospital Comment on above:Performed By: #### PREGU, ERUR #### [facility] [address] [place] [address] Dr. Reema MirelesUR MICRO INDNOT INDICATEDNormalThe [facility] HospitalComment on above:Performed By: #### PREGU, ERUR #### [facility] [address] [place] [address] Dr. Reema MirelesUrobilinogen Qn (U)0.2 {Renny'U}/dLNormal0.2 - 1.0The [facility] HospitalComment on above:Performed By: #### PREGU, ERUR #### [facility] [address] [place] [address] Dr. Reema MirelesPREGNANCY URon 80-24-4938NZUAAFPSI, QUALNegativeNormalNEGATIVEThe [facility] HospitalComment on above:Performed By: #### PREGU, ERUR #### [facility] [address] [place] [address] Dr. Reema YouF CHEM 8 (BAS METB)on 94-06-7225Wavno gap [Moles/Vol]14.0 mmol/LNormalThe [facility] HospitalComment on above:Performed By: #### BMP, TSH #### [facility] [address] [place] [address] Dr. Reema MirelesCalcium [Mass/Vol]9.2 mg/dLNormal8.5-10.1The [facility] Comment on above:Performed By: #### BMP, TSH #### [facility] [address] [place] [address] Dr. Reema MirelesChloride [Moles/Vol]102 mmol/URzgaoq12-196Cwa [facility] Comment on above:Performed By: #### BMP, TSH #### [facility] [address] [place] [address] Dr. Reema MirelesCO2 [Moles/Vol]26.3 mmol/LApqbcx90.0-32.0The [facility] Comment on above:Performed By: #### BMP, TSH #### [facility] [address] [place] [address] Dr. Reema MirelesCreatinine [Mass/Vol]0.65 mg/dLNormal0.55-1.02The [facility] HospitalComment on above:Performed By: #### BMP, TSH #### [facility] [address] [place] [address] Dr. Reema CarpenterGFR-AF SLOVENIAN>60Normal>=60The [facility] HospitalComment on above:Performed By: #### BMP, TSH #### [facility] [address] [place] [address] Dr. Reema CarpenterGFR-NON AF SLOVENIAN>60Normal>=60The [facility] HospitalComment on above:Performed By: #### BMP, TSH #### [facility] [address] [place] [address] Dr. Reema MirelesGlucose [Mass/Vol]92 mg/zSTlrdqn46-828Jmc [facility] Comment on above:Performed By: #### BMP, TSH #### [facility] [address] [place] [address] Dr. Reema MirelesPotassium [Moles/Vol]3.3 mmol/LCritically low3.5-5.1The [facility] HospitalComment on above:Performed By: #### BMP, TSH #### [facility] [address] [place] [address] Dr. Reema MirelesSodium [Moles/Vol]139 mmol/IOhnpgh762-982Wql [facility] Comment on above:Performed By: #### BMP, TSH #### [facility] [address] [place] [address] Dr. Reema MirelesUrea nitrogen [Mass/Vol]8.0 mg/dLNormal7.0-18.0The [facility] HospitalComment on above:Performed By: #### BMP, TSH #### [facility] [address] [place] [address] Dr. Reema MirelesUrea nitrogen/Creatinine [Mass ratio]12.3 mg/mgNormalThe [facility] HospitalComment on above:Performed By: #### BMP, TSH #### [facility] [address] [place] [address] Dr. Reema Kruse 45-19-3616TTA5.293 uIU/mLNormal0.358-3.740The [facility] HospitalComment on above:Performed By: #### BMP, TSH #### [facility] [address] [place] [address] Dr. Reema Mcfadden for Treatmenton 48-16-3423Zzsyixn for Treatment [id number]#[id number]:127NormalFisher [facility] Clinical Summaryon [id number] Clinical Summary [place] [id number] ED Clinical Summary Person Information Name: JUANPABLO CHAPARRO Florinda/[facility] Age: 21 Years : 2000 Sex: Female Language: Indonesian PCP: ADRYAN MARIE MD Marital Status: Single Phone: [phone] Visit Id: Visit Reason: Vertigo - recurrent; [...] 04/12/2022 21:07:38 04/12/2022 21:07:38 04/12/2022 21:07:38 ADDRESS: [address] [place] [id number] PHYS DOC NOTES: MEDICAL INFORMATION: Prescriptions Given: PATIENT EDUCATION INFORMATION: Instructions: General Headache Without Cause; Vertigo Follow up: With: Address: When: ADRYAN MARIE [address] [place], [place] [id number] Business (1) In 3 days 04/15/2022 Comments: Return to the emergency room if her headache gets worse, vertigo becomes persistent or any new symptoms DIAGNOSIS: 1:Vertigo; 2:HeadacheNormalFisher St. Mary'S Medical CenterED Patient Education Note on 59-78-9622MG Patient Education NoteENT Vertigo Vertigo is the feeling that you or your surroundings are moving when they are not. This feeling cancome and go at any time. Vertigo often [...] you feel dizzy. General instructions ? Take vchy-foe-byubdka and prescription medicines only as told by [...] Reviewed: 08/08/2019 Elsevier Patient Education ? 2019 [employer] Neurology General Headache Without Cause A [...] with your condition: Managing pain ? Take mklv-vnv-lsheucd and prescription medicines only as told by [...] oz bottle of beer (more content not included)...[facility] Patient Summaryon [id number] Patient Summary [address] [id number] Patient Discharge Instructions Person Information Name: JUANPABLO CHAPARRO Age: 21 Years Arrival Date: 04/12/2022 19:22:40 Discharge Diagnosis: 1:Vertigo; 2:Headache Primary Care Physician: ADRYAN MARIE MD Provider Information Primary Provider: Lata Hardy M.D. Advanced Digital Solution Architect:None The exam and treatment you received in the Emergency Department were for an urgent problem and are not intended as complete care. It is important that you follow up with a doctor, nurse practitioner,or physician?s assistant director of nursing for ongoing care. If your symptoms become worse or you do not improve as expected and you are unable to reach your usual health care provider, you should return to the Emergency Department. We are available 24 hours a day. JUANPABLO CHAPARRO has been given the following list of patient education materials, prescriptionsand follow-up instructions: Follow-up Instructions: With: Address: When: ADRYAN MARIE [address] [place] [address] [facility] () In 3 days 04/15/2022 Comments: [...] opioids can be used to help relieve zjqzsoxk-uc-zangbv pain and are often prescribed following a [...] and have fewer risks and side effects. Optionsmay include: ? Pain relievers such as acetaminophen, [...] unused prescription opioids: Find your community drug take- back program or yourpharmacy mail-back program, or flush them down the toilet, following guidance from the Food and Drug Administration (www.fda.gov/Drugs/ResourcesForYou). ? Visit www.cdc.gov/drugoverdose to learn about the risks of opioids abuse and overdose. ? If you believe you may be struggling with addiction, tel (more content not included)...[facility] AUTO DIFFon 37-39-0516KRTO #0.1 103/ulNormal0.0-0.1The [facility] HospitalComment on above:Performed By: #### BMP, TSH #### [facility] [address] [place] [address] Dr. Reema MirelesBasophils/100 WBC (Bld)0.5 %Normal0.2-2.0The [facility] Comment on above:Performed By: #### BMP, TSH #### [facility] [address] [place] [address] Dr. Reema Lowe #0.1 103/ulNormal0.0-0.7The [facility] HospitalComment on above: Performed By: #### BMP, TSH #### [facility] [address] [place] [address] Dr. Reema Carpenterosinophils/100 WBC (Bld)1.0 %Normal0.9-7.0The [facility] Comment on above:Performed By: #### BMP, TSH #### [facility] [address] [place] [address] Dr. Reema Carpenterrythrocyte distribution width (RBC) [Ratio]11.7 %Fxfpcd72.0-15.0 The [facility] HospitalComment on above:Performed By: #### BMP, TSH #### [facility] [address] [place] [address] Dr. Reema MirelesHematocrit (Bld) [Volume fraction]37.2 %Qapffg69.0-48.0The [facility] HospitalComment on above:Performed By: #### BMP, TSH #### [facility] [address] [place] [address] Dr. Reema MirelesHemoglobin (Bld) [Mass/Vol]12.8 g/hRUwxoxl58.0-16.0The [facility] HospitalComment on above:Performed By: #### BMP, TSH #### [facility] [address] [place] [address] Dr. Reema Rocha #0.02 10e3/ulNormal0.00-0.03The [facility] HospitalComment on above:Performed By: #### BMP, TSH #### [facility] [address] [address] [address] Reema Rocha %0.2 %Normal0.0-0.5The [facility] HospitalComment on above: Performed By: #### BMP, TSH #### [facility] [address] [address] [address] Reema Zayas #1.8 103/ulNormal1.2-3.8The [facility] HospitalComment on above:Performed By: #### BMP, TSH #### [facility] [address] [place] [address] Dr. Reema Kimhocytes/100 WBC (Bld)19.0 %Critically low20.5-60.0The [facility] HospitalComment on above:Performed By: #### BMP, TSH #### [facility] [address] [place] [address] Dr. Reema StephensUAL DIFF REQNONormalThe [facility] HospitalComment on above: Performed By: #### BMP, TSH #### [facility] [address] [place] [address] Dr. Reema Vincent (RBC) [Entitic mass]30.4 dmGibilt52.7-34.0The [facility] HospitalComment on above:Performed By: #### BMP, TSH #### [facility] [address] [place] [address] Dr. Reema Vincent (RBC) [Mass/Vol]34.4 g/rJWaeoad09.9-35.2The [facility] Hospitalment on above:Performed By: #### BMP, TSH #### [facility] [address] [place] [address] Dr. Reema Vincent (RBC) [Entitic vol]88.4 hPYnvdkn27.0-99.0The [facility] HospitalCommclaren [facility] region on above:Performed By: #### BMP, TSH #### [facility] [address] [place] [address] Dr. Reema Weller #0.7 103/ulNormal0.3-0.8The [facility] HospitalComment on above:Performed By: #### BMP, TSH #### [facility] [address] [place] [address] Dr. Reema Galiciaocytes/100 WBC (Bld)6.8 %Normal1.7-12.0[facility] Comment on above:Performed By: #### BMP, TSH #### [facility] [address] [place] [address] Dr. Reema Bradshaw #7.0 103/ulCritically high1.4-6.5[facility] Comment on above:Performed By: #### BMP, TSH #### [facility] [address] [place] [address] Dr. Reema Fischerutrophils/100 WBC (Bld)72.5 %Rkeywy51.0-75.0The [facility] HospitalComment on above:Performed By: #### BMP, TSH #### [facility] [address] [place] [address] Dr. Reema Hodgsonlet mean volume (Bld) [Entitic vol]10.3 fLNormal9.5-13.5The [facility] HospitalComment on above:Performed By: #### BMP, TSH #### [facility] [address] [place] [address] Dr. Reema WatkinsT358 103/lsYbkerm852-546Ceq [facility] HospitalComment on above: Performed By: #### BMP, TSH #### [facility] [address] [place] [address] Dr. Reema MirelesRBC4.21 106/ulNormal4.20-5.40The [facility] HospitalComment on above:Performed By: #### BMP, TSH #### [facility] [address] [place] [address] Dr. Reema MirelesWBC9.7 103/ulNormal4.0-11.0The [facility] HospitalComment on above: Performed By: #### BMP, TSH #### [facility] [address] [place] [address] Dr. Reema Quijano BLOODon 87-48-3115Zttikvtgxdv examination of blood, cultureCulture Observations: NO GROWTH AT 5 DAYS.NormalKettering Health Springfield HospitalComment on above:Performed By: #### BMP, TSH #### [facility] [address] [place] [address] Dr. Reema Griffin URINE PROFILEon 94-67-2128Bxidqvauj Ql (U)NegativeNormal NEGATIVEKettering Health Springfield HospitalComment on above:Performed By: #### BMP, TSH #### [facility] [address] [place] [address] Dr. Reema MirelesClarity (U)CLEARNormalCLEARHarrison Community HospitalComment on above: Performed By: #### BMP, TSH #### [facility] [address] [place] [address] Dr. Reema MirelesColor (U)LT. YELLOWNormalYELLOWHarrison Community HospitalComment on above:Performed By: #### BMP, TSH #### [facility] [address] [place] [address] Dr. Reema ReynoldsMIHIR micrscopic examination will be performed if indicated. NormalHarrison Community HospitalComment on above:Performed By: #### BMP, TSH #### [facility] [address] [place] [address] Dr. Reema MirelesGlucose Ql (U)NegativeNormalNEGATIVEHarrison Community HospitalComment on above:Performed By: #### BMP, TSH #### [facility] [address] [place] [address] Dr. Reema MirelesHemoglobin Ql (U)TRACE-INTACTAbnormalNEGATIVEHarrison Community HospitalComment on above:Performed By: #### BMP, TSH #### [facility] [address] [place] [address] Dr. Reema MirelesKetones Ql (U)NegativeNormalNEGATIVEHarrison Community HospitalComment on above:Performed By: #### BMP, TSH #### [facility] [address] [place] [address] Dr. Reema MirelesLEUKOCYTESNegativeNormalNEGATIVEHarrison Community HospitalComment on above:Performed By: #### BMP, TSH #### [facility] [address] [address] [address] Reema Calhoun Ql (U)NegativeNormalNEGATIVEThe [facility] HospitalComment on above:Performed By: #### BMP, TSH #### [facility] [address] [address] [address] Reema MirelespH (U)5.5 [pH]Normal5-9The [facility] HospitalComment on above: Performed By: #### BMP, TSH #### [facility] [address] [address] [address] Reema MirelesSPEC GRAVITY<=1.114Jhsefwzp1.005-<=1.025The [facility] Comment on above:Performed By: #### BMP, TSH #### [facility] [address] [place] [address] Dr. Reema Rodriguez PROTEINNegativeNormalNEGATIVE/ TRACEThe [facility] Comment on above:Performed By: #### BMP, TSH #### [facility] [address] [address] [address] Reema Ward MICRO INDINDICATEDNormalThe [facility] HospitalComment on above: Performed By: #### BMP, TSH #### [facility] [address] [place] [address] Dr. Reema Wingbilinogen Qn (U)0.2 {Renny'U}/dLNormal0.2 - 1.0The [facility] HospitalComment on above:Performed By: #### BMP, TSH #### [facility] [address] [place] [address] Dr. Reema MirelesLACTATE/LACTIC ACIDon 74-10-6437Hyoiiyz [Moles/Vol]2.2 mmol/L Critically high0.4-1.9The [facility] HospitalComment on above:Performed By: #### BMP, TSH #### [facility] [address] [place] [address] Dr. Reema MirelesPREGNANCY URon 57-10-2229OUKVXSFJE, QUALNegativeNormalNEGATIVEThe [facility] HospitalComment on above:Performed By: #### BMP, TSH #### [facility] [address] [place] [address] Dr. Reema Chung 14(COMP METB)on 08-55-6543Wjsglzz [Mass/Vol]4.5 g/dLNormal 3.4-5.0The [facility] HospitalComment on above:Performed By: #### CMP #### [facility] [address] [place] [address] Dr. Reema MirelesAlbumin/Globulin [Mass ratio]1.3 {ratio}NormalThe [facility] HospitalComment on above:Performed By: #### CMP #### [facility] [address] [place] [address] Dr. Reema LinP [Catalytic activity/Vol]83 U/JSsmmta01-746Nko [facility] HospitalComment on above:Performed By: #### CMP #### [facility] [address] [place] [address] Dr. Reema LinT [Catalytic activity/Vol]26 U/AXohxkl12-68Xdm [facility] HospitalComment on above:Performed By: #### CMP #### [facility] [address] [place] [address] Dr. Reema Tan gap [Moles/Vol]14.9 mmol/LNormalThe [facility] Comment on above:Performed By: #### CMP #### [facility] [address] [place] [address] Dr. Reema MirelesAST [Catalytic activity/Vol]12 U/LCritically qor55-58Apu [facility] HospitalComment on above:Performed By: #### CMP #### [facility] [address] [place] [address] Dr. Reema MirelesBilirubin [Mass/Vol]0.3 mg/dLNormal0.2-1.0The [facility] Comment on above:Performed By: #### CMP #### [facility] [address] [place] [address] Dr. Reema MirelesCalcium [Mass/Vol]9.6 mg/dLNormal8.5-10.1The [facility] Comment on above:Performed By: #### CMP #### [facility] [address] [address] [address] Reema MirelesChloride [Moles/Vol]103 mmol/WIfxird15-056Cwx [facility] Comment on above:Performed By: #### CMP #### [facility] [address] [address] [address] Reema MirelesCO2 [Moles/Vol]24.4 mmol/LNlotfm55.0-32.0The [facility] Comment on above:Performed By: #### CMP #### [facility] [address] [place] [address] Dr. Reema MirelesCreatinine [Mass/Vol]0.87 mg/dLNormal0.55-1.02The [facility] HospitalComment on above:Performed By: #### CMP #### [facility] [address] [place] [address] Dr. Reema CarpenterGFR-AF SLOVENIAN>60Normal>=60The [facility] HospitalComment on above:Performed By: #### CMP #### [facility] [address] [place] [address] Dr. Reema CarpenterGFR-NON AF SLOVENIAN>60Normal>=60The [facility] HospitalComment on above:Performed By: #### CMP #### [facility] [address] [address] [address] Reema MirelesGlobulin (S) [Mass/Vol]3.5 g/dLNormalThe [facility] HospitalComment on above:Performed By: #### CMP #### [facility] [address] [address] [address] Reema MirelesGlucose [Mass/Vol]109 mg/dLCritically anms70-337Tvt [facility] HospitalComment on above:Performed By: #### CMP #### [facility] [address] [place] [address] Dr. Reema MirelesPotassium [Moles/Vol]3.3 mmol/LCritically low3.5-5.1The [facility] HospitalComment on above:Performed By: #### CMP #### [facility] [address] [address] [address] Reema MirelesProtein [Mass/Vol]8.0 g/dLNormal6.4-8.2[facility] Comment on above:Performed By: #### CMP #### [facility] [address] [address] [address] Reema Torresum [Moles/Vol]139 mmol/IBxfpzc323-891Jwi [facility] Comment on above:Performed By: #### CMP #### [facility] [address] [address] [address] Reema Britt nitrogen [Mass/Vol]9.0 mg/dLNormal7.0-18.0[facility] HospitalComment on above:Performed By: #### CMP #### [facility] [address] [address] [address] Reema Britt nitrogen/Creatinine [Mass ratio]10.3 mg/mgNoSuburban Community Hospital & Brentwood HospitalComment on above:Performed By: #### CMP #### [facility] [address] [address] [address] Reema NORTON ONLYon 03-02-3923PADNEEOEPKLO SEENNormalNONE SEENHarrison Community HospitalCommclaren bay region on above:Performed By: #### BMP, TSH #### [facility] [address] [address] [address] Reema Arthur identified Cx Nom (U)NOT INDICATEDNoSuburban Community Hospital & Brentwood HospitalComment on above:Performed By: #### BMP, TSH #### [facility] [address] [address] [address] Reema Cotton SEENNormalNONE SEENHarrison Community HospitalCommclaren bay region on above:Performed By: #### BMP, TSH #### [facility] [address] [address] [address] Reema Johnson LM Nom (Urine sed)NONE SEENNormalNONE SEENHarrison Community HospitalComment on above:Performed By: #### BMP, TSH #### [facility] [address] [address] [address] Reema Carpenterpithelial cells LM Ql (Urine sed)RARENormalNONE SEEN /RAREThe [facility] HospitalComment on above:Performed By: #### BMP, TSH #### [facility] [address] [place] [address] Dr. Reema MirelesMUCOUSNONE SEENNormalNONE SEENThe [facility] HospitalComment on above:Performed By: #### BMP, TSH #### [facility] [address] [place] [address] Dr. Reema MirelesCgpqdVYB7-9Btfqjx8-0Phl [facility]vue HospitalComment on above:Performed By: #### BMP, TSH #### [facility] [address] [place] [address] Dr. Benavidez ChangWBCNONE SEENNormalNONE SEENHarrison Community HospitalComment on above: Performed By: #### BMP, TSH #### [facility] [address] [place] [address] Dr. Reema Stanford AUTO DIFFon 61-14-2700HZHV #0.0 103/ulNormal0.0-0.1[facility] HospitalComment on above:Performed By: #### CBC #### [facility] [address] [place] [address] Dr. Reema MirelesBasophils/100 WBC (Bld)0.6 %Normal0.2-2.0[facility] Comment on above:Performed By: #### CBC #### [facility] [address] [place] [address] Dr. Reema Lowe #0.1 103/ulNormal0.0-0.7The [facility] on above: Performed By: #### CBC #### [facility] [address] [place] [address] Dr. Reema Carpenterosinophils/100 WBC (Bld)1.8 %Normal0.9-7.0[facility] Comment on above:Performed By: #### CBC #### [facility] [address] [place] [address] Dr. Reema Carpenterrythrocyte distribution width (RBC) [Ratio]11.9 %Hnrluv69.0-15.0 The [facility] HospitalComment on above:Performed By: #### CBC #### [facility] [address] [place] [address] Dr. Reema MirelesHematocrit (Bld) [Volume fraction]38.1 %Yfnrgp66.0-48.0The [place] HospitalComment on above:Performed By: #### CBC #### [facility] [address] [place] [address] Dr. Reema MirelesHemoglobin (Bld) [Mass/Vol]13.1 g/fSOzsqgf53.0-16.0The [facility] HospitalComment on above:Performed By: #### CBC #### [facility] [address] [place] [address] Dr. Reema Rocha #0.01 10e3/ulNormal0.00-0.03The [facility] HospitalComment on above:Performed By: #### CBC #### [facility] [address] [place] [address] Dr. Reema Rocha %0.1 %Normal0.0-0.5The [facility] on above: Performed By: #### CBC #### [facility] [address] [place] [address] Dr. Reema KimH #1.9 103/ulNormal1.2-3.8The [facility] HospitalComment on above:Performed By: #### CBC #### [facility] [address] [place] [address] Dr. Reema Barnettmphocytes/100 WBC (Bld)27.8 %Fgdqcr53.5-60.0The [facility] HospitalComment on above:Performed By: #### CBC #### [facility] [address] [place] [address] Dr. Reema StephensUAL DIFF REQNONormalThe [facility] HospitalComment on above: Performed By: #### CBC #### [facility] [address] [address] [address] Reema Vincent (RBC) [Entitic mass]30.5 fzFwebit65.7-34.0The [facility] HospitalComment on above:Performed By: #### CBC #### [facility] [address] [place] [address] Dr. Reema Vincent (RBC) [Mass/Vol]34.4 g/uCZulypi35.9-35.2The [facility] HospitalComment on above:Performed By: #### CBC #### [facility] [address] [place] [address] Dr. Reema Vincent (RBC) [Entitic vol]88.8 nKWsjtxo74.0-99.0The [facility] HospitalComment on above:Performed By: #### CBC #### [facility] [address] [place] [address] Dr. Reema Weller #0.8 103/ulNormal0.3-0.8The [facility] HospitalComment on above:Performed By: #### CBC #### [facility] [address] [place] [address] Dr. Reema Galiciaocytes/100 WBC (Bld)11.2 %Normal1.7-12.0The [facility] Comment on above:Performed By: #### CBC #### [facility] [address] [place] [address] Dr. Reema Bradshaw #4.0 103/ulNormal1.4-6.5The [facility] HospitalComment on above:Performed By: #### CBC #### [facility] [address] [place] [address] Dr. Reema Fischerutrophils/100 WBC (Bld)58.5 %Uraabs98.0-75.0The [facility] HospitalComment on above:Performed By: #### CBC #### [facility] [address] [place] [address] Dr. Reema Hodgsonlet mean volume (Bld) [Entitic vol]10.0 fLNormal9.5-13.5The [facility] HospitalComment on above:Performed By: #### CBC #### [facility] [address] [place] [address] Dr. Reema MirelesPLT361 103/agHskxoc367-834GzwHarrison Community HospitalComment on above: Performed By: #### CBC #### [facility] [address] [place] [address] Dr. Reema MirelesRBC4.29 106/ulNormal4.20-5.40The [facility] HospitalComment on above:Performed By: #### CBC #### [facility] [address] [place] [address] Dr. Reema MirelesWBC6.8 103/ulNormal4.0-11.0[facility] HospitalComment on above: Performed By: #### CBC #### [facility] [address] [place] [address] Dr. Reema Mendoza QUANT HCGon 71-52-2137POM QUANT1 mIU/mLNormalThe [facility] HospitalComment on above:Performed By: #### PREGQNT #### [facility] [address] [place] [address] Dr. Reema Blanco RANGESEE BELOWNormalThCommunity Memorial HospitalComment on above: Result Comment: 5-50 0-1 WEEK 40-300 1-2 WEEKS 100-1,000 2-3 WEEKS 500-6,000 3-4 WEEKS 5,000-200,000 1-2 MONTHS 10,000-100,000 2-3 MONTHS 3,000-50,000 2ND TRIMESTER 1,000-50,000 3RD TRIMESTERPerformed By: #### PREGQNT #### [facility] [address] [place] [address] Dr. Reema Stroudd-19 PCR (CVDTBH)on 48-79-5376OCZP-CoV-2 (COVID-19) RNA FRANKIE+probe Ql (Unsp spec)Not detectedNormalNOT DETECTEDThe [facility] Comment on above:Result Comment: This test is not yet approved or cleared by the [place] FDA. When there are no FDA-approved or cleared tests available, and other criteria are met, FDA can make tests available under an emergency access mechanism called an Emergency Use Authorization (EUA). The EUA for this test is supported by the [place] of Health and Human Service's (HHS's) declaration that circumstances exist to justify the emergency use of in vitro diagnostics for the detection and/or diagnosis of the virus that causes COVID- 19. This EUA will remain in effect (meaning [...] of clinical signs and symptoms consistent with SARS-CoV-2.Performed By: #### CVDTBH #### [facility] [address] [place] [address] Dr. Reema Mireles Vital Signs Date TimeVital SignValuePerforming NnaujhxjeEgtsslhz27-03-6733 09:35-0500Body mass index (BMI) [Ratio]37.86 kg/m2Amy Traci FARR Work Phone: NOSaint [facility]–Barry RoadCnnxipfobi96-74-8235 09:35-0500Body nsucpr852.19 kgCydney FARR Work Phone: [facility] HospitalGbjycldney76-34-9070 09:35-0500Diastolic blood caxrlfri78 mm[Hg]Cydney FARR Work Phone: NOSaint [facility]–Barry RoadAfynjfaaol87-26-3846 09:35-0500Systolic blood aobdnrpl096 mm[Hg]Cydney FARR Work Phone: NOSaint [facility]–Barry RoadEqmhrrehvv42-12-7200 09:12-0400Body mass index (BMI) [Ratio]36.68 kg/v5Thgza Omer DO Work Phone: [phone] Luke's North Hospital–Barry RoadAwilfddbbw10-69-0168 09:12-0400Body .97 kgCorey Omer DO Work Phone: NOSaint [facility] Hospital–Barry RoadDtqcyismta07-35-2934 09:12-0400Diastolic blood nxfjylew06 mm[Hg]Devyn Omer DO Work Phone: [phone] [place], [place] [address]Nfifcuodvr98-49-9601 09:12-0400Systolic blood mm[Hg]Devyn Omer DO Work Phone: [phone] [place], [place] [address]Pzunxmrprz03-90-9938 09:24-0400Body mass index (BMI) [Ratio]36.58 kg/e0SmxawcvtCydney Stallings [employer] Work Phone: [phone] [place], [place] [address]Wyphsqbclb17-42-6898 09:24-0400Body tkguzi22.7 kg Cydney Stallings [employer] Work Phone: [phone] [place], [place] [address]25[address]10-08-2025 09:24-0400Diastolic blood laifxpcc23 mm[Hg]Cydney Stallings [employer] Work Phone: [phone] [place], [place] [address]Jhaxkpjoyo06-13-5501 09:24-0400Systolic blood yuemghkv543 mm[Hg]Cydney Stallings [employer] Work Phone: [phone] [place], [place] [address]25[address]09-23-2025 09:23-0400Body mass index (BMI) [Ratio]36.15 kg/d4Dacit Omer DO Work Phone: [phone] [place], [place] [address]Jwnrtymcqj98-64-9983 09:23-0400Body .54 kgCorey Omer DO Work Phone: [phone] [place], [place] [address]Awjtarwpko37-54-8905 09:23-0400Diastolic blood hrnbuqgw83 mm[Hg]Devyn Omer DO Work Phone: [phone] [place], [place] [address]Xheyphqmfv74-62-7953 09:23-0400Systolic blood isnwrkrj374 mm[Hg]Devyn Omer DO Work Phone: [phone] [place], [place] [address]09-09-2025 10:24-0400Body mass index (BMI) [Ratio]35.53 kg/f4Svntw Omer DO Work Phone: [phone] [place], [place] [address]Ephvhpglnu47-35-5563 10:24-0400Body igwavy90.84 kgCorey Omer DO Work Phone: [phone] [place], [place] [address]Beajivbrbt77-46-3306 10:24-0400Diastolic blood juyuhpxg85 mm[Hg]Devyn Omer DO Work Phone: [phone] [place], [place] [address]Xxmszakbcb65-40-7855 10:24-0400Systolic blood aootdajd754 mm[Hg]Devyn Omer DO Work Phone: [facility] HospitalVdirtpabax83-27-0989 09:38-0400Body mass index (BMI) [Ratio]34.28 kg/m2Cydney Aviles CHIKA Work Phone: [phone] [place], [place] [address]Rbipwsezmq98-12-8698 09:38-0400Body agvvqb14.44 kgCydney Hernandezdaksha FARR Work Phone: [phone] [place], [place] [address]Vqklxwdkjj45-37-3091 09:38-0400Diastolic blood jwdqmauk90 mm[Hg]Cydney Hernandezdaksha FARR Work Phone: [phone])731-[address] [place], [place] [address]Xrheeibcqt24-57-6465 09:38-0400Systolic blood wlflswul889 mm[Hg]Cydney Hernandezdaksha FARR Work Phone: [phone] [place], [place] [address]Itvjhxyjec77-34-5407 09:14-0400Body mass index (BMI) [Ratio]32.64 kg/h4Ujlab Omer DO Work Phone: [phone] [place], [place] [address]Lqumbpucdn73-76-2311 09:14-0400Body mplser76.96 kgCorey Omer DO Work Phone: [phone]-[facility] HospitalAovwaadgag73-61-2761 09:14-0400Diastolic blood mm[Hg]Devyn Omer DO Work Phone: [phone] [place], [place] [address]Qukgjktfsq17-19-4996 09:14-0400Systolic blood aoiwjtxg820 mm[Hg]Devyn Omer DO Work Phone: [phone] [place], [place] [address]Iwfrdpukys27-00-0050 10:21-0400Body mass index (BMI) [Ratio]32.02 kg/w4Syroa Omer DO Work Phone: [phone] [place], [place] [address]Vjgelxinkq25-05-3806 10:21-0400Body .27 kgCorey Omer DO Work Phone: [phone] [place], [place] [address]Mbhjlgkino91-41-9037 10:21-0400Diastolic blood cvktnkxo06 mm[Hg]Devyn Omer DO Work Phone: [facility] HospitalFltuafppok60-39-7344 10:21-0400Systolic blood zojaatir083 mm[Hg]Devyn Omer DO Work Phone: [facility] HospitalBtahsmmqaz87-70-1512 09:43-0400Body mass index (BMI) [Ratio]31.95 kg/m2[facility]04-25-2025 09:43-0400Body lqazgu02.09 kgSaint [facility]04-25-2025 09:43-0400Diastolic blood twwjjacb70 mm[Hg][facility]04-25-2025 09:43-0400Systolic blood mm[Hg][facility]03-11-2025 11:23-0400Body mass index (BMI) [Ratio]32.12 kg/m2Amy Traci FARR Work Phone: [phone] [place], [place] [address]Wpyrhxkekm31-56-8129 11:23-0400Body howdij09.54 kgAmy Traci FARR Work Phone: [facility] HospitalNiteqyehax78-90-2198 11:23-0400Diastolic blood rtavbpal10 mm[Hg]Cydney FARR Work Phone: [facility] HospitalJkvyqrvokd60-73-9710 11:23-0400Systolic blood xpwsrgya422 mm[Hg]Cydney Aviles PA Work Phone: [facility] HospitalXqhaqnxsdp67-22-7080 10:12-0500Body mass index (BMI) [Ratio]32.64 kg/f8Bqvlo Omer DO Work Phone: [facility] HospitalKbwwqzeatl42-92-1876 10:12-0500Body cloqwe25.96 kgCorey Omer DO Work Phone: [facility] HospitalUlfktakzgx02-31-3259 10:12-0500Diastolic blood lmfqyftu52 mm[Hg]Devyn Omer DO Work Phone: [facility] HospitalRskgkgxyit66-10-9223 10:12-0500Systolic blood vsjelmxi144 mm[Hg]Devyn Omer DO Work Phone: [phone]-[facility] HospitalSrykoqmann90-68-6430 10:58-0500Body mass index (BMI) [Ratio]34.61 kg/t5Hrivk Omer DO Work Phone: [phone] [place], [place] [address]Ijkpxhsuho57-62-4196 10:58-0500Body .35 kgCorey Omer DO Work Phone: [phone] [place], [place] [address]Itjuswlhtb46-40-9248 10:58-0500Diastolic blood chasfsrs32 mm[Hg]Devyn Omer DO Work Phone: [phone] [place], [place] 825[address]12-02-2024 10:58-0500Systolic blood sxvydfsi215 mm[Hg]Devyn Omer DO Work Phone: [phone] [place], [place] 825[address]02-15-2024 14:15-0500Body ifzlta935.86 kgCorey Omer DO Work Phone: [phone] [place], [place] [address]02-15-2024 14:15-0500Diastolic blood ubjvxrmz84 mm[Hg]Devyn Omer DO Work Phone: [phone] [place], [place] [address]Nbyiwctuav78-19-0652 14:15-0500Systolic blood uqotzdrv844 mm[Hg]Devyn Omer DO Work Phone: [phone] [place], [place] [address]Zkawcxphky04-43-7494 21:04-0400Diastolic blood zdetuwao12 mm[Hg][facility]07-16-2022 21:04-0400Heart rate82 /minUniversity [facility]07-16-2022 21:04-0400Respiratory rate16 /min[facility] 04-12-2022 21:04-0952XqN6% (BldA) [Mass fraction]98 %[facility]07-16-2022 21:04-0400Systolic blood cwnwfhqu234 mm[Hg][facility]07-16-2022 20:32-4437tpdl24 mg/dLUniversity Hospitals Parma Medical CenterComment on above:Result Comment: not taken due to pt refusal of any qcphshcpu37-97-2495 20:32-0400gluc[facility]07-16-2022 19:25-0400Body vljdmyvlccy85.32 [degF][facility]07-16-2022 19:25-0400Diastolic blood punukena13 mm[Hg][facility]07-16-2022 19:25-0400Heart rate90 /minUniversity [facility]07-16-2022 19:25-0400Respiratory rate18 /minUniversity [facility] 04-12-2022 19:25-2326DgR0% (BldA) [Mass fraction]98 %[facility]07-16-2022 19:25-0400Systolic blood marevfsi481 mm[Hg][facility]07-13-2022 12:20-0400Body dvlmea084.1 cm Deonna Back Other [employer] Other 07-13-2022 12:20-0400Body mass index (BMI) [Ratio] 35.61 kg/r1DpnkudDeonna Back Other [employer] Other 07-13-2022 12:20-0400Body eydqmiyonmv90.4 [degF]Deonna Nazanin Other [employer] Other 07-13-2022 12:20-0400Body xpbvca75.07 kgDeonna Back Other [employer] Other 07-13-2022 12:20-0400Diastolic blood dolqeyak03 mm[Hg] Deonna Back Other [facility] Other 07-13-2022 12:20-0400Respiratory rate18 /minPaanabel Back Other [facility] Other 07-13-2022 12:20-0221ZsE9% (BldA) [Mass fraction]99 % Deonna Back Other [facility] Other 07-13-2022 12:20-0400Systolic blood pzaiwhnx733 mm[Hg] Deonna Back Other [facility] Other 07-06-2022 19:00-0400Body srlagx525.1 cmPamelavila Back Other [facility] Other 07-06-2022 19:00-0400Body mass index (BMI) [Ratio] 35.71 kg/c3Ucfmftanabel Back Other [facility] Other 07-06-2022 19:00-0400Body .1 [degF]Deonna Back Other [facility] Other 07-06-2022 19:00-0400Body wcprro90.34 kgPaanabel Back Other [facility] Other 07-06-2022 19:00-0400Diastolic blood ckthxanl12 mm[Hg] Deonna Back Other [facility] Other 07-06-2022 19:00-0400Respiratory rate18 /minDeonna Cavanaughmond Other [facility] Other 07-06-2022 19:00-4435TyX5% (BldA) [Mass fraction]100 % Deonna Back Other [facility] [employer] Other 07-06-2022 19:00-0400Systolic blood ygvjfilt250 mm[Hg] Deonna Back Other [facility] [employer] Other Encounters Encounter DateEncounter TypeCare ProviderFacilityStart: 08-02-2025 End: 61-08-3126Pyyhvv flowsDenny FARR Work Phone: [facility] [place] [facility]Start: 08-02-2025 End: 46-16-4377Bfsqll Efrain FARR Work Phone: [facility]Start: 08-02-2025 End: 81-48-6818Vbxmhc outpatient visit 15 minutesCydney FARR Work Phone: [facility] [place] [facility]BGYNComment on above:Third trimester ([facility]); 36 weeks gestation of ([facility])Start: 07-18-2025 End: 36-91-5243Edyrik flowsheetCorey Omer DO Work Phone: [facility]YNStart: 07-18-2025 End: 37-31-2704Bldfgu flowsheetCorey Omer DO Work Phone: [facility]YNStart: 07-18-2025 End: 93-08-1137Cczwyl outpatient visit 15 minutesCorey Omer DO Work Phone: [facility] OBGYNComment on above:Third trimester ([facility]); 34 weeks gestation of ([facility])Start: 07-18-2025 End: 60-49-1137iyqzijtpeaWYPJZ FAZIONot AvailableStart: 07-05-2025 End: 22-71-0549Jtwwqm flowsIsmael Stallings NP Work Phone: [facility]YNStart: 07-05-2025 End: 96-98-1434Gvbdyf flowsheetCydney Stallings [employer] Work Phone: [facility]BGYNStart: 07-05-2025 End: 92-87-6746Dszube outpatient visit 15 minutesCydney Stallings [employer] Work Phone: [facility] OBGYNComment on above:Third trimester ([facility]); 32 weeks gestation of ([facility])Start: 07-05-2025 End: 44-26-1384rpgsvjylyuXXKBPMPH EBERLYNot AvailableStart: 06-20-2025 End: 62-09-7822Mjsymc outpatient visit 15 minutesCorey Omer DO Work Phone: [facility] OBGYNComment on above:Third trimester ([facility]); 30 weeks gestation of ([facility])Start: 06-20-2025 End: 35-89-7588woulbzovilQZZJQ FAZIONot AvailableStart: 06-06-2025 End: 60-00-6846Rhhytf flowsheetCorey Omer DO Work Phone: [facility] [place] [facility]YNStart: 06-06-2025 End: 77-15-0441Keikxf flowsheetCorey Omer DO Work Phone: [facility]BGYNStart: 06-06-2025 End: 85-60-0553Kitnye outpatient visit 15 minutesCorey Omer DO Work Phone: [facility] OBGYNComment on above:Third trimester ([facility]); 28 weeks gestation of ([facility]); size inconsistent with dates ([facility])Start: 06-06-2025 End: 61-11-4249srfwthizjxQXVPE FAZIONot AvailableStart: 05-26-2025 End: 83-06-2697Olskvmtfv Result EncounterCydney FARR Work Phone: [facility] External Department UnsolicitedStart: 05-26-2025 End: 02-60-7296Ozvedkagk Result EncounterCydney FARR Work Phone: [facility] External Department UnsolicitedStart: 05-16-2025 End: 51-07-8444Ljljes flowsgracyCydney FARR Work Phone: [facility] [place] [facility]YNStart: 05-16-2025 End: 05-74-8554Oijfei flowsheetCydney FARR Work Phone: [facility] [place] [facility]BGYNStart: 05-16-2025 End: 06-15-0675qbbknbzreuKKH TRACIElizabeth AvailableStart: 05-16-2025 End: 13-35-5408Fazfsj outpatient visit 15 minutesCydney FARR Work Phone: [facility] OBGYNComment on above:24 weeks gestation of ([facility]); Second trimester ([facility]); Subchorionic hemorrhage of placenta, antepartum ([facility]); Diabetes mellitus screeningStart: 04-18-2025 End: 00-94-0803Ybtizs outpatient visit 15 minutesCorey Omer DO Work Phone: [facility] Bk OBGYNComment on above:Second trimester ([facility]); 21 weeks gestation of ([facility])Start: 04-18-2025 End: 54-54-9648vswmmfbqbiZAXGI FAZIONot AvailableStart: 04-18-2025 End: 52-75-9009olibnuombqXZXDZ FAZIONot AvailableStart: 03-20-2025 End: 33-08-6966Nnvabq flowsheetCorey Omer DO Work Phone: [facility]CP OBStart: 03-20-2025 End: 64-82-8811Kwyyht flowsheetCorey Omer DO Work Phone: [facility] OBStart: 03-20-2025 End: 90-93-4125Lebdxt outpatient visit 15 minutesCorey Omer DO Work Phone: [facility] BCP OBComment on above:17 weeks gestation of ([facility]); Second trimester ([facility]); Screening, , for anatomic survey ([facility]); Exposure to STD; Vaginal dischargeStart: 03-20-2025 End: 44-68-5693uwuzeqlfgwGWUKI FAZIONot AvailableStart: 02-27-2025 End: 41-85-5545bimyxzobxaIACVM FAZIONot AvailableStart: 02-16-2025 End: 35-56-3466hvxwhtllbvFQHZK FAZIONot AvailableStart: 02-07-2025 End: 66-92-2338Qbeaxhins encounterCorey Omer DO Work Phone: N[facility] BCP OBStart: 01-30-2025 End: 94-78-2184Tabtboioh Result EncounterCorey Omer DO Work Phone: n[facility] External Department UnsolicitedStart: 01-30-2025 End: 51-52-9914Wevhiphxl Result EncounterCorey Omer DO Work Phone: noms External Department UnsolicitedStart: 01-20-2025 End: 33-80-6516Ubhbjc outpatient visit 5 minutesNoms Bcp Ob Omer NurseNOMS BCP OBComment on above:GA: 1g9dXcndj: 01-20-2025 End: 67-03-0919droxioxeiaLMLRE FAZIONot AvailableStart: 12-06-2024 End: 92-50-9914Eulnmm outpatient visit 15 minutesAmy Traci FARR Work Phone: noMS BCP OBComment on above:Exposure to STDStart: 12-06-2024 End: 95-98-7572drqdxdxzkqURH RAMEYNot AvailableStart: 11-01-2024 End: 99-91-6723Faxnim flowsheetCorey Omer DO Work Phone: [facility]CP OBStart: 11-01-2024 End: 64-56-1908Xmwbsv flowsheetCorey Omer DO Work Phone: [facility] BCP OBStart: 11-01-2024 End: 14-99-4107Bopwzb outpatient visit 15 minutesCorey Omer DO Work Phone: [facility] BCP OBComment on above:Post depression (CMS/HCC)Start: 11-01-2024 End: 84-69-5905fjyrojhmyxXPLRD FAZIONot AvailableStart: 08-29-2024 End: 07-74-9648Ncrxpl flowsheetCorey Omer DO Work Phone: [facility]CP OBStart: 08-29-2024 End: 22-24-5383Ihwgvl flowsheetCorey Omer DO Work Phone: noms BCP OBStart: 08-29-2024 End: 07-17-4015Agtvvpvfq Result EncounterCorey Omer DO Work Phone: [facility] External Department UnsolicitedStart: 08-29-2024 End: 23-65-0624Geqaobh encounter procedureCorey Omer DO Work Phone: [facility] Work Phone: Start: 08-29-2024 End: 61-17-1840Nmksmpdr preventive med est patient 18-39 yrsCorey Omer DO Work Phone: [facility] BCP OBComment on above:Well woman exam with routine gynecological exam; UTI symptoms; Missed mensesStart: 08-29-2024 End: 25-42-7140jtvufefqksGOXOW FAZIONot AvailableStart: 06-13-2024 End: 16-17-7806Kszxmg flowsheetCorey Omer DO Work Phone: [facility]CP OBStart: 06-13-2024 End: 17-45-3036Gyjqtf flowsheetCorey Omer DO Work Phone: [facility] BCP OBStart: 06-13-2024 End: 48-65-3381Vulr/qhp telephone evaluation 5-10 minCorey Omer DO Work Phone: [facility] BCP OBComment on above:Post depression (CMS/HCC) (Primary Dx)Start: 01-20-2024 End: 23-45-6158Uaemejycg Result EncounterCorey Omer DO Work Phone: NOTN External Department UnsolicitedStart: 01-20-2024 End: 38-59-9642Ddaqdxusy Result EncounterCorey Omer DO Work Phone: NOCD External Department UnsolicitedStart: 01-14-2024 End: 52-79-2123Krkalztqg Result EncounterCorey Omer DO Work Phone: NOVQ External Department UnsolicitedStart: 01-14-2024 End: 31-25-1075Fnaxoafkp Result EncounterCorey Omer DO Work Phone: NOCC External Department UnsolicitedStart: 01-13-2024 End: 88-28-7888Togbmddnf Result EncounterCorey Omer DO Work Phone: NOOQ External Department UnsolicitedStart: 01-13-2024 End: 73-20-7449Zxmosdagt Result EncounterCorey Omer DO Work Phone: NOUQ External Department UnsolicitedStart: 01-06-2024 End: 13-24-4744Bthzbagcw Result EncounterCorey Omer DO Work Phone: [facility] External Department UnsolicitedStart: 01-06-2024 End: 00-73-3846Tgqokqqpr Result EncounterCorey Omer DO Work Phone: NOQW External Department UnsolicitedStart: 12-30-2023 End: 87-27-9268Ztqvymxky Result EncounterCorey Omer DO Work Phone: NOFY External Department UnsolicitedStart: 12-30-2023 End: 49-35-3435Nmxbsjgxg Result EncounterCorey Omer DO Work Phone: [facility] External Department UnsolicitedStart: 12-24-2023 End: 99-13-7462Yteddtyeo Result EncounterCorey Omer DO Work Phone: [facility] External Department UnsolicitedStart: 12-24-2023 End: 31-04-0860Qycgceify Result EncounterCorey Omer DO Work Phone: NOHZ External Department UnsolicitedStart: 12-23-2023 End: 61-19-6354Qbpdgzhrc Result EncounterCorey Omer DO Work Phone: NOXW External Department UnsolicitedStart: 12-23-2023 End: 72-33-2376Czrzkynjn Result EncounterCorey Omer DO Work Phone: NOMT External Department UnsolicitedStart: 12-16-2023 End: 48-94-9814Dqopqikyz Result EncounterCorey Omer DO Work Phone: NOUM External Department UnsolicitedStart: 12-16-2023 End: 07-09-8573Ogjatnkvo Result EncounterCorey Omer DO Work Phone: NOET External Department UnsolicitedStart: 12-09-2023 End: 71-24-4941Tbbqsusnl Result EncounterCorey Omer DO Work Phone: NOAF External Department UnsolicitedStart: 12-09-2023 End: 87-56-6776Iageccutz Result EncounterCorey Omer DO Work Phone: [facility]OM[facility] External Department UnsolicitedStart: 12-01-2023 End: 10-74-8031Yfkstnwex Result EncounterCorey Omer DO Work Phone: NOQY External Department UnsolicitedStart: 12-01-2023 End: 07-43-4570Uduknqzpv Result EncounterCorey Omer DO Work Phone: NOBT External Department UnsolicitedStart: 11-26-2023 End: 48-18-9057Moordsvlo Result EncounterCorey Omer DO Work Phone: [facility] External Department UnsolicitedStart: 11-26-2023 End: 38-46-3242Zbvsrxudb Result EncounterCorey Omer DO Work Phone: [facility] External Department UnsolicitedStart: 11-12-2023 End: 00-93-5181Cepsyl outpatient visit 15 minutesCorey Omer DO Work Phone: [facility] OBComment on above:Third trimester ; Excessive growth affecting management of in third trimester, single or unspecified fetusStart: 10-95-7898Pxeuhqukj Result EncounterCydney Aviles CHIKA Work Phone: noms External Department UnsolicitedStart: 11-03-2023 Clinisync Result EncounterAmy Traci CHIKA Work Phone: noms External Department UnsolicitedStart: 09-17-2023 End: 93-87-9609Tiemdmqoj Result EncounterCorey Omer DO Work Phone: noms External Department UnsolicitedStart: 09-17-2023 End: 36-86-5182Hfjzwuptc Result EncounterCorey Omer DO Work Phone: noms External Department UnsolicitedStart: 09-14-2022 End: 15-03-4772hoxudfzlarID LUIS ANTONIO Jorge SMITHFacility:Q5Cifbo: 08-11-2022 End: 20-72-5278rlcdvkrxuuQY MARK R SMITHFacility:B5Qkgqo: 08-09-2022 End: 61-45-2409onddujioexCN ADRYAN DEFRANCEFacility:Y1Wzswl: 08-08-2022 End: 30-45-1357qqmxducogxIG MARK R SMITHFacility:Q7Kcjqr: 04-16-2022 End: 30-28-6083mchwtlwjdfSY ADRYAN DEFRANCEFacility:P4Zvibe: 04-15-2022 End: 48-85-6347ojyvssqrzaLU ADRYAN DEFRANCEFacility:J1Twsmv: 04-13-2022 End: 29-41-6030rgonhwtchjTT ADRYAN DEFRANCEFacility:G0Jtjqv: 04-12-2022 End: 50-30-3089Denwogafr department patient visitAstrit Sahil [facility]yHigh[facility] Start: 04-10-2022 End: 31-80-4106fipybzpnccYdyolo Dymond Other [phone] Other Start: 75-79-5539Soznywdfs encounterPamela NazaninFPG Urgent Care ClydeStart: 04-09-2022 End: 35-61-7671mlovwsfpmmPsoilo Nazanin Other [employer] Other Start: 86-76-1852Opcsub outpatient visit 15 minutes Deonna DymondFPG [facility]gent Care ClydeStart: 04-09-2022 End: 81-13-9071zcmmiibtavPV LUIS ANTONIO Jorge SMITHFacility:G9Qoytn: 04-02-2022(URG) Urgent Care VisitPamela DydevoraFPG [facility] Care ClydeStart: 04-02-2022 End: 26-38-4752vetvsrpkqmEqytai Nazanin Other [employer] Other Start: 10-25-2021 End: 35-39-7141dgqrmsetavHE ADRYAN DEFRANCEFacility:I1Jutgn: 78-43-9232Zzzjdujah for preprocedural laboratory examinationDR [facility] Start: 10-22-2021 End: 30-69-7707lorphimuriYQ DAVID DEFRANCEFacility:C2Ushra: 10-22-2021 End: 25-60-7751Rmjhvcykj for preprocedural laboratory examinationDR ADRYAN DEFRANCEFacility:F9Vulrv: 09-04-2260Ndbwpbats for other preprocedural examinationDR [facility]Start: 10-17-2021 End: 38-18-5460yyonmmkcjzHR ADRYAN DEFRANCEFacility:O2Ilafe: 10-17-2021 End: 91-96-0462Szyqolixc for other preprocedural examinationDR ADRYAN DEFRANCE Facility:H1 Procedures DateProcedureProcedure DetailPerforming ClinicianStart: 23-40-6121Kdmnm dip stick/tablet rgnt non-auto w/o micrscChikamy Traci FARR Work Phone: Start: 24-53-3069Iybvx dip stick/tablet rgnt non-auto w/o micrscpCorey Omer DO Work Phone: Start: 15-93-0148Himim dip stick/tablet rgnt non-auto w/o micrscpCydney Stallings [employer] Work Phone: Start: 84-32-7712Diacx dip stick/tablet rgnt non-auto w/o micrscpCorey Omer DO Work Phone: Start: 76-15-6896Tikki dip stick/tablet rgnt non-auto w/o micrscpCorey Omer DO Work Phone: Start: 68-49-8005LXNQXOQ 1 HOURCydney FARR Work Phone: Start: 64-79-3142Gzbqh dip stick/tablet rgnt non-auto w/o benjyscSlick FARR Work Phone: Start: 63-35-0974Rqgln dip stick/tablet rgnt non-auto w/o micrscpCorey Omer DO Work Phone: Start: 81-63-2909Cuskj dip stick/tablet rgnt non-auto w/o micrscpCorey Omer DO Work Phone: Start: 90-86-5201UIM TESTCorey Omer DO Work Phone: Start: 01-20-2025 End: 46-11-6699Kijiz dip stick/tablet rgnt non-auto w/o micrscpCorey Omer DO Work Phone: Start: 36-93-6914Ntpgh test visual color cmprsn methsAmayur FARR Work Phone: Start: 08-29-2024 End: 78-93-2644Ymohy dip stick/tablet rgnt non-auto w/o micrscpCorey Omer DO Work Phone: Start: 37-23-3871IGU,APTIMA HPV,AGE GDLNCorey Omer DO Work Phone: Start: 71-49-9620UG OB BPP W NON-STRESSCorey Omer DO Work Phone: Start: 78-22-3123UM OB GROWTHCorey Omer DO Work Phone: Start: 07-06-3036CG OB GROWTHCorey Omer DO Work Phone: Start: 80-60-3177YU OB BPP W NON-STRESSCorey Omer DO Work Phone: Start: 97-79-1142ES OB BPP W NON-STRESSCorey Omer DO Work Phone: Start: 34-00-2596AT OB BPP W NON-STRESSCorey Omer DO Work Phone: Start: 41-25-9460VJ OB GROWTHCorey Omer DO Work Phone: Start: 71-08-1595KV OB BPP W NON-STRESSCorey Omer DO Work Phone: Start: 96-40-3568NG OB BPP W NON-STRESSCorey Omer DO Work Phone: Start: 01-38-6537GZ OB BPP W NON-STRESSCorey Omer DO Work Phone: Start: 98-30-4623BL OB BPP W NON-STRESSCorey Omer DO Work Phone: Start: 54-69-7867NE OB GROWTHCorey Omer DO Work Phone: Start: 43-68-0915Qfkuu dip stick/tablet rgnt non-auto w/o micrscpCorey Omer DO Work Phone: Start: 33-20-1852SNK CBC WITH AUTO DIFFAmy Traci PA Work Phone: Start: 90-78-9521FV OB ANATOMYCorey Omer DO Work Phone: Start: 02-10-8181XF OB CERVICAL LENGTHCorey Omer DO Work Phone: Plan of Treatment DateCare ActivityDetailAuthorStart: 09-07-2025 End: 64-49-7801Wsusbpi encounter procedureNOMS BCP OBStart: 08-02-2025 End: 38-96-6075AJQGNBP, GROUP B STREP WITH SUSCEPTIBLITYCULTURE, GROUP B STREP WITH SUSCEPTIBLITY Lab Routine Third trimester ([facility]) Expected: 08/02/2025, Expires: 08/02/2026[facility] Work Phone: comment on above:Expected: 08/02/2025, Expires: 08/02/2026Start: 08-02-2025 End: 71-00-6012Qrhyiof encounter procedureNOMS Bk OBGYNComment on above: ArrivedStart: 07-18-2025 End: 79-48-7588Haotnex encounter procedureNOMS [place] OBGYNComment on above: ArrivedStart: 07-05-2025 End: 55-57-0588Epcoopp encounter procedureNOMS [place] OBGYNComment on above: ArrivedStart: 06-06-2025 End: 67-28-6186TY for pregnancyUS OB follow up transabdominal approach Imaging Routine size inconsistent with dates ([facility]) Expected: 06/06/2025, Expires: 10/06/2025[facility] Work Phone: comment on above:Expected: 06/06/2025, Expires: 10/06/2025Start: 06-06-2025 End: 82-03-7476Bppqbue encounter procedureNOMS [place] OBGYNComment on above: ArrivedStart: 39-85-0178HSQQK-19 Vaccine ( season)COVID-19 Vaccine ( season)[facility] HealthcareStart: 03-73-6625Marvrlwrx vaccinationNOMD HealthcareStart: 05-16-2025 End: 07-34-6280OWI panel - Blood by Automated countCBC Lab Routine Diabetes mellitus screening Expected: 05/16/2025 (Approximate), Expires: 05/16/2026[facility] Work Phone: comment on above:Expected: 05/16/2025 (Approximate), Expires: 05/16/2026Start: 05-16-2025 End: 11-91-2147Enyvnxdvyto of glucose 1 hour after glucose challenge for glucose tolerance testGlucose tolerance, 1 hour Lab Routine Diabetes mellitus screening Expected: 05/16/2025 (Approximate), Expires: 05/16/2026[facility] HealthcareComment on above:Expected: 05/16/2025 (Approximate), Expires: 05/16/2026Start: 05-16-2025 End: 34-36-0257Lqnulol encounter safifmfsv55/19/2025 9:20 AM EDT Routine [facility] [address] [place], [id number] Cydney Aviles PA [address] [place], [place] [id number] [facility] OBGYNStart: 04-18-2025 End: 92-26-3103Bwuwzls encounter ykyazidlm32/22/2025 9:20 AM EDT Routine [facility] [address] [place] [phone] Devyn Tello DO [address] [place], [place] [id number] [facility] BCP OBStart: 04-18-2025 End: 57-73-0227Yezouiznzzkn / ancillary services fwmjseezxo37/22/2025 8:00 AM EDT Ancillary Procedure [facility] [address] [place] [address] [facility] BCP OBStart: 03-20-2025 End: 37-74-2362Ajuqt fetoprotein, maternalAlpha fetoprotein, maternal Lab Routine 17 weeks gestation of ([facility]) Second trimester ([facility]) Expected: 03/20/2025 (Approximate), Expires: 04/19/2025[facility] Comment on above:Expected: 03/20/2025 (Approximate), Expires: 04/19/2025Start: 03-20-2025 End: 26-35-6857YT for pregnancyUS OB 14+ weeks anatomy scan Imaging Routine Screening, , for anatomic survey ([facility]) Expected: 03/20/2025, Expires: 06/20/2025[facility] HealthcareComment on above:Expected: 03/20/2025, Expires: 06/20/2025Start: 03-20-2025 End: 99-93-7541Wzgswug encounter snelpcmyc20/23/2025 10:10 AM EDT Routine [facility] [address] [place] [phone] Devyn Tello, DO [address] [place] [address] [address] [place], [place] [id number] ArrivedAL[facility]ATES [facility] OBComment on above: ArrivedStart: 02-21-2025 End: 01-06-0581Ujjtqfw encounter yspcznphg04/27/2025 8:50 AM EDT Routine [facility] [address] [place] [phone] Devyn Tello, DO [address] [place] [address] [facility] BCP OBStart: 01-20-2025 End: 21-54-1379KAN/RhABO/Rh Lab Routine Missed menses , unspecified gestational age Expected: 01/20/2025 (Approximate), Expires: 01/20/2026[facility] HealthcareComment on above:Expected: 01/20/2025 (Approximate), Expires: 01/20/2026Start: 01-20-2025 End: 13-51-2689Hoqnc type and Indirect antibody screen panel - BloodType and screen Lab Routine Missed menses , unspecified gestational age Expected: 01/20/2025 (Approximate), Expires: 01/20/2026[facility] Work Phone: comment on above:Expected: 01/20/2025 (Approximate), Expires: 01/20/2026Start: 01-20-2025 End: 48-63-5647Dzooz of abuse panel - Urine by Screen methodRapid drug screen, urine Lab Routine , unspecified gestational age Encounter for supervision of normal first in first trimester Expected: 01/20/2025 (Approximate), Expires: 01/20/2026[facility] HealthcareComment on above:Expected: 01/20/2025 (Approximate), Expires: 01/20/2026Start: 11-01-2024 End: 14-94-2728Eietkmp encounter vrtosewuq04/04/2025 10:00 AM EST Office Visit [facility] [address] [phone] Devyn Tello DO [address] [place] [address] ArrivedNOMS BCP OBComment on above:ArrivedStart: 08-29-2024 End: 95-17-4542Bikukqu encounter procedureNOMS BCP OBComment on above:Arrived Start: 69-69-4741Jrazftmvf vaccinationInfluenza Vaccine (#1)[facility] Start: 11-26-2023 End: 89-07-4616Nmeymve encounter jokgptpht23/29/2024 11:00 AM EST Routine [facility] [address] [place] [phone] Cydney Aviles PA [address] [place] [address] [facility] BCP OBStart: 11-26-2023 End: 25-86-3757Tjhefzeywcxf / ancillary services enhvjfjeuf65/29/2024 10:30 AM EST Ancillary Procedure [facility] [address] [place], [place] [phone] [facility] BCP OBStart: 11-12-2023 End: 97-20-4340BY for pregnancyUS OB SCAN FOR GROWTH Imaging Routine Excessive growth affecting management of in third trimester, single or unspecified fetus Expected: 11/12/2023 (Approximate), Expires: 2024[facility] Work Phone: comment on above:Expected: 11/12/2023 (Approximate), Expires: 11/12/2024Start: 11-12-2023 End: 24-51-4007Hmcdvhf encounter iwvhjbcbe51/15/2024 10:50 AM EST Routine [facility] [address] [place] [phone] Devyn Tello, DO [address] [place] [address] [facility] OBStart: 77-99-6128Nnfrwwqmr B Vaccines (1 of 3 - 19+ 3-dose series)Hepatitis B Vaccines (1 of 3 - 19+ 3-dose series)[facility]: 40-08-9776Xowzzfvymkaay B Vaccine (1 of 2 - Standard)Meningococcal B Vaccine (1 of 2 - Standard)[facility]Start: 06-24-2598UGL Vaccines (1 - 3-dose series)HPV Vaccines (1 - 3-dose series)[facility]: 43-74-3295Wzguxuw of varicella vaccinationVaricella Vaccines (1 of 2 - 13+ 2-dose series)[facility]: 64-29-7421VHkW/Tdap/Td Vaccines (1 - Tdap)DTaP/Tdap/Td Vaccines (1 - Tdap)[facility]: 81-93-6345ORE Vaccines (1 of 1 - Standard series)MMR Vaccines (1 of 1 - Standard series)[facility] HealthcareBacteria identified in Urine by CultureUrine culture Microbiology Routine Missed menses Ordered: 01/20/2025[facility] HealthcareComment on above: Ordered: 01/20/2025BC W Auto Differential panel - BloodCBC and differential Lab Routine Missed menses , unspecified gestational age Ordered: 01/20[facility] HealthcareComment on above:Ordered: 01/20/2025HLAMYDIA TRACHOMATIS (GENITO/STI)CHLAMYDIA TRACHOMATIS (GENITO/STI) Lab Routine Exposure to STD Ordered: 12/06/2024[facility] HealthcareComment on above:Ordered: 12/06/2024HLAMYDIA TRACHOMATIS (GENITO/STI)CHLAMYDIA TRACHOMATIS (GENITO/STI) Lab Routine Exposure to STD Ordered: 03/20/2025[facility] HealthcareComment on above:Ordered: 03/20/2025 Cytology Cervical or vaginal smear or scraping studyPap Smear Pathology and Cytology Routine Well woman exam with routine gynecological exam Ordered: [facility] Healthcare Work Phone: comment on above:Ordered: 08/29/2024Hemoglobin A1c/Hemoglobin.total in BloodHemoglobin A1c Lab Routine Missed menses , unspecified gestational age Ordered: 01/20/2025[facility] HealthcareComment on above: Ordered: 01/20/2025Hepatitis B virus surface Ag [Presence] in Serum or Plasma by ImmunoassayHepatitis B surface antigen Lab Routine Missed menses , unspecified gestational age Ordered: 01/20/2025[facility] HealthcareComment on above: Ordered: 01/20/2025Hepatitis C virus Ab [Presence] in Serum or Plasma by ImmunoassayHepatitis C antibody Lab Routine Missed menses , unspecified gestational age Ordered: 01/20/2025[facility] HealthcareComment on above:Ordered: 01/20/2025HIV-1/HIV-2 antigen/antibody combination immunoassayHIV-1 and HIV-2 antibodies Lab Routine Missed menses , unspecified gestational age Ordered: 01/20/2025[facility] HealthcareComment on above:Ordered: 01/20/2025Neisseria gonorrhoeae DNA [Presence] in Unspecified specimen by FRANKIE with probe detection Neisseria gonorrhea DNA probe, direct Lab Routine Exposure to STD Ordered: 12/06/2024[facility] HealthcareComment on above:Ordered: 12/06/2024Neisseria gonorrhoeae DNA [Presence] in Unspecified specimen by FRANKIE with probe detection Neisseria gonorrhea DNA probe, direct Lab Routine Exposure to STD Ordered: 03/20/2025[facility] HealthcareComment on above:Ordered: 03/20/2025Reagin Ab [Presence] in Serum by RPRRPR Lab Routine Missed menses , unspecified gestational age Ordered: 01/20/2025[facility] HealthcareComment on above:Ordered: 01/20/2025Rubella antibody, IgGRubella antibody, IgG Lab Routine Missed menses , unspecified gestational age Ordered: 01/20/2025[facility] HealthcareComment on above:Ordered: 01/20/2025SURESWAB(R) ADVANCED VAGINITIS PLUS, TMASURESWAB(R) ADVANCED VAGINITIS PLUS, TMA Pathology and Cytology Routine Exposure to STD Ordered: 12/06/2024[facility] Healthcare Work Phone: comment on above:Ordered: 12/06/2024SURESWAB(R) ADVANCED VAGINITIS PLUS, TMASURESWAB(R) ADVANCED VAGINITIS PLUS, TMA Pathology and Cytology Routine Vaginal discharge Ordered: 03/20/2025[facility] Healthcare Work Phone: comment on above:Ordered: 03/20/2025 Payers DatePayer CategoryPayerPoly [id number] Health InsuranceCARESOURCE MEDICAID [id number] [id number] 02-63-1805MpmxsruCAGXAZVLHXKnAMERIHEALTH CAR[place]AS [place] [id number] 2023-Present [address] [place] [address] [id number] 2023Medicaid [id number] 2.16.840.1.153131.3.57[id number] 2.16.840.1.383482.3.57[id number] 2.16.840.1.494773.3.57[id number] 2.16.840.1.092628.3.57[id number] 2.16840.1.959288.3.579.[id number] 2.16.840.1.050834.3.57[id number] 2.840.1.692216.3.579.[id number] 2.840.1.198277.3.57[id number] 2..840.1.017427.3.579.2.52639-89-5022Txqvzqx7251260 2.840.1.477937.3.579.[id number] 2.840.1.117695.3.579.2.12655-97-5868Gynhrkc86349665 2.16.840.1.841617.3.579.2.421698-22-1566Lmevxxm99263664 2.16.840.1.128198.3.57[id number] 2.16.840.1.204909.3.579.2.2[id number] 2.16.840.1.665536.3.57[id number] 2..840.1.637445.3.579.2.3[id number] 2.16.840.1.647628.3.57[id number] 2.840.1.077433.3.57[id number] 2.840.1.633676.3.579.[id number] 2.840.1.905829.3.579.2.132808-87-1619Temqkxg1660701 2.840.1.621116.3.579.2.[id number] 2.0.1.563768.3.57[id number] 2.0.1.012692.3.579.[id number] 2.840.1.203041.3.579.[id number] 2.0.1.308357.3.579.2.783769-80-3925Hnmbvzo3908413 2.840.1.522662.3.579.2.101919-21-9704Xmfbtsc1381981 2.0.1.616719.3.579.2.992481-74-4984Hlsp Cross Blue [id number] 2.840.1.804316.19 Social History DateTypeDetailFacilityUnknown if ever smokedNoWeGreek Other Start: 05-12-2024 End: 28-12-7967Xas Assigned At BirthP[place] [facility] Other Tobacco smoking statusNo Smoking Status EnteredAkron Children's Hospitaltart: 40-21-8049Afhwbua smoking status NHISTobacco smoking consumption unknownNOMD HealthcareStart: 10-15-2023 End: 73-24-8601Wkrayvn intakeLifetime non-drinker (finding)[facility] HealthcareStart: 38-11-2451Zrozgar CommentCurrent smoker (frequency unknown)[facility] Healthcare Start: 77-75-5454IoenhmcfuIQTG HealthcareStart: 65-47-1451Obq Assigned At Not on fileNOMD HealthcareStart: 20-15-1310Nqbnuws smoking status NHISEx-smoker NOM HealthcareHistory of tobacco useCurrent smokerNOMD HealthcareStart: 05-12-2024 End: 52-81-9147Nmwbdhz of Social functionNOMD Healthcare Work Phone: Start: 40-60-2854FzeGfaxxkKEQK Healthcare Goals DatePatient GoalDesired Activity/StatePersonal health goal Functional Status IdobSvqafgqsolIsfudkNwaadxdw84-15-1120Kbmhwzm Health Questionnaire 2 item (PHQ- 2) [Reported][facility] HospitalEoamoymhdh26-96-2161Usqvtowcim StatusN/[facility] Clinical Notes 10-25-2021 to 08-02-2025 Note Date & HarxIiwwGamcbwht20-21-7541 History of Present illness Narrative* Cydney Stallings NP - 08/02/2025 9:30 AM EST Reason for Appointment: Patient ID: Juanpablo Chaparro is a 24 y.o. female who presents for Routine Visit Patient presents today for Return OB appointment. MEDICATIONS Current Outpatient Medications Medication Instructions SU-Woo-KM-[place]-3 ( GUMMIES/DHA & FA PO) 1 each, Daily ALLERGIES Allergies Allergen Reactions Sulfa Antibiotics Fever, Hives and Rash PROBLEMS Active Ambulatory Problems Diagnosis Date Noted Third trimester ([facility]) 06/20/2025 30 weeks gestation of ([facility]) 06/20/2025 Resolved Ambulatory Problems Diagnosis Date Noted [...] nursing note reviewed. Exam conducted with a applied psychology chair present. Vitals: Estimated body mass index is 37.86 kg/m as calculated from the following: Height as of 6/11/24: 5' 5 . Weight as of this encounter: 227 lb 8 oz. BP: 112/82 Patient's last menstrual period was 11/18/2024 (approximate). Assessment/Plan ICD-10-CM 1. Third trimester ([facility]) Z34.93 POCT urinalysis dipstick manually resulted CULTURE, GROUP B STREP WITH SUSCEPTIBLITY CULTURE, GROUP B STREP WITH SUSCEPTIBLITY 2. 36 weeks gestation of ([facility]) Z3A.36 Return OB: Patient presents today for [...] week for routine OB appointment. Documented by Cydney Stallings NP on behalf of: CHIKA Lyman documented in this encounterChildren's Mercy HospitalOvthimpamk34-87-1080 History of Present illness Narrative* Tricia Ozuna LPN - 07/18/2025 9:00 AM EDT Reason for Appointment: Patient ID: Juanpablo Chaparro is a 24 y.o. female who presents for Routine Visit Patient presents today for Return OB appointment. MEDICATIONS Current Outpatient Medications Medication Instructions OI-Hlu-FI-[place]-3 ( GUMMIES/DHA & FA PO) 1 each, Daily ALLERGIES Allergies Allergen Reactions Sulfa Antibiotics Fever, Hives and Rash PROBLEMS Active Ambulatory Problems Diagnosis Date Noted Third trimester ([facility]) 06/20/2025 30 weeks gestation of ([facility]) 06/20/2025 Resolved Ambulatory Problems Diagnosis Date Noted [...] nursing note reviewed. Exam conducted with a applied psychology chair present. Vitals: Estimated body mass index is 36.68 kg/m as calculated from the following: Height as of 03/08/24: 5' 5 . Weight as of this encounter: 220 lb 6.4 oz. BP: 126/70 Patient's last menstrual period was 11/18/2024 (approximate). Assessment/Plan ICD-10-CM 1. Third trimester ([facility]) Z34.93 2. 34 weeks gestation of ([facility]) Z3A.34 POCT urinalysis dipstick manually resulted Return OB: Patient presents today for a routine obstetrics appointment. Patient is currently 34w4d . Patient states she is doing well but has complaints of being tired due to current . Patient has verbalizes frequent movement. labor precautions was discussed/given and patient was instructed to perform kick counts three times a day. Pt has complaints of pelvic pain and pressure, discussed with pt in detail. Orders Placed This Encounter Procedures POCT urinalysis dipstick manually resulted Follow Up: Patient is to return to office in 2 week for routine OB appointment. Documented by Tricia Ozuna LPN on behalf of: Devyn Tello DO documented in this encounterChildren's Mercy HospitalLzmdrbnoaw86-85-3387 History of Present illness Narrative* Cydney Stallings NP - 07/05/2025 9:20 AM EDT Reason for Appointment: Patient ID: Juanpablo Chaparro is a 24 y.o. female who presents for Routine Visit Patient presents today for Return OB appointment. MEDICATIONS Current Outpatient Medications Medication Instructions YZ-Ypa-RN-[place]-3 ( GUMMIES/DHA & FA PO) 1 each, Daily ALLERGIES Allergies Allergen Reactions Sulfa Antibiotics Fever, Hives and Rash PROBLEMS Active Ambulatory Problems Diagnosis Date Noted Third trimester ([facility]) 06/20/2025 30 weeks gestation of ([facility]) 06/20/2025 Resolved Ambulatory Problems Diagnosis Date Noted [...] nursing note reviewed. Exam conducted with a applied psychology chair present. Vitals: Estimated body mass index is 36.58 kg/m as calculated from the following: Height as of 03/08/24: 5' 5 . Weight as of this encounter: 219 lb 12.8 oz. BP: 118/78 Patient's last menstrual period was 11/18/2024 (approximate). ASSESSMENT & PLAN ICD-10-CM 1. Third trimester ([facility]) Z34.93 2. 32 weeks gestation of ([facility]) Z3A.32 POCT urinalysis dipstick manually resulted Return OB: Patient presents today for a routine obstetrics appointment. Patient is currently 32w5d . Patient states she is doing well [...] week for routine OB appointment. Documented by Cydney Stallings NP on behalf of: Cydney Stallings NP documented in this encounterChildren's Mercy HospitalDwonhxvlyg04-54-5541 History of Present illness Narrative* Tricia Ozuna LPN - 06/20/2025 9:30 AM EDT Reason for Appointment: Patient ID: Juanpablo Chaparro is a 24 y.o. female who presents for Routine Visit Patient presents today for Return OB appointment. MEDICATIONS Current Outpatient Medications Medication Instructions ZK-Zhd-TT-[place]-3 ( GUMMIES/DHA & FA PO) 1 each, Daily ALLERGIES Allergies Allergen Reactions Sulfa Antibiotics Fever, Hives and Rash PROBLEMS Active Ambulatory Problems Diagnosis Date Noted Third trimester ([facility]) 06/20/2025 30 weeks gestation of ([facility]) 06/20/2025 Resolved Ambulatory Problems Diagnosis Date Noted [...] nursing note reviewed. Exam conducted with a applied psychology chair present. Vitals: Estimated body mass index is 36.15 kg/m as calculated from the following: Height as of 03/08/24: 5' 5 . Weight as of this encounter: 217 lb 4 oz. BP: 112/70 Patient's last menstrual period was 11/18/2024 (approximate). ASSESSMENT & PLAN ICD-10-CM 1. Third trimester ([facility]) Z34.93 POCT urinalysis dipstick manually resulted 2. 30 weeks gestation of ([facility]) Z3A.30 POCT urinalysis dipstick manually resulted Return [...] of: Devyn Tello DO documented in this encounterChildren's Mercy HospitalPnljipuysp87-76-2245 History of Present illness Narrative* Tricia Ozuna LPN - 06/06/2025 10:20 AM EDT Reason for Appointment: Patient ID: Juanpablo Chaparro is a 24 y.o. female who presents for Routine Visit Patient presents today for Return OB appointment. MEDICATIONS Current Outpatient Medications Medication Instructions DG-Feh-QF-[place]-3 ( GUMMIES/DHA & FA PO) 1 each, [...] nursing note reviewed. Exam conducted with a applied psychology chair present. Vitals: Estimated body mass index is 35.53 kg/m as calculated from the following: Height as of 03/08/24: 5' 5 . Weight as of this encounter: 213 lb 8 oz. BP: 112/82 Patient's last menstrual period was 11/18/2024 (approximate). ASSESSMENT & PLAN ICD-10-CM 1. Third trimester ([facility]) Z34.93 POCT urinalysis dipstick manually resulted 2. 28 weeks gestation of ([facility]) Z3A.28 Return OB: Patient presents today for [...] of: Devyn Tello DO documented in this encounterChildren's Mercy HospitalPyvzerraft62-41-2414 History of Present illness Narrative* CHIKA Lyman - 05/16/2025 9:20 AM EDT Reason for Appointment: Patient ID: Juanpablo Chaparro is a 24 y.o. female who presents for Routine Visit Patient presents today for Return OB appointment. MEDICATIONS Current Outpatient Medications Medication Instructions VH-Nyi-DC-[place]-3 ( GUMMIES/DHA & FA PO) 1 each, [...] PLAN ICD-10-CM 1. 24 weeks gestation of ([facility]) Z3A.24 POCT urinalysis dipstick manually resulted 2. Second trimester ([facility]) Z34.92 POCT urinalysis dipstick manually resulted 3. Subchorionic hemorrhage of placenta, antepartum ([facility]) O46.8X9 4. Diabetes mellitus screening Z13.1 CBC [...] behalf of: CHIKA Lyman documented in this encounterChildren's Mercy HospitalAmxovlqdor41-62-6093 History of Present illness Narrative* Tricia Laith, BELL - 04/18/2025 9:20 AM EDT Reason for Appointment: Patient ID: Juanpablo Chaparro is a 24 y.o. female who presents for Routine Visit Patient presents today for Return OB appointment. MEDICATIONS Current Outpatient Medications Medication Instructions HI-Wxo-ZF-[place]-3 ( GUMMIES/DHA & FA PO) 1 each, [...] nursing note reviewed. Exam conducted with a applied psychology chair present. Vitals: Estimated body mass index is 32.64 kg/m as calculated from the following: Height as of 03/08/24: 5' 5 . Weight as of this encounter: 196 lb 1.9 oz. BP: 110/78 Patient's last menstrual period was 11/18/2024 (approximate). ASSESSMENT & PLAN ICD-10-CM 1. Second trimester ([facility]) Z34.92 POCT urinalysis dipstick manually resulted 2. 21 weeks gestation of ([facility]) Z3A.21 POCT urinalysis dipstick manually resulted Patient presents today for a routine obstetrics appointment. Patient is currently 21w4d with a Estimated Date of Delivery: 08/25/25. Pt had anatomy scan prior to appt. Will notify of results. Pt to return in 4 weeks for scheduled ob appt. Documented by Tricia Ozuna LPN on behalf of: Devyn Tello DO documented in this encounterChildren's Mercy HospitalMhzwweugub01-62-4562 History of Present illness Narrative* Maryam Saul LPN - 03/20/2025 10:10 AM EDT Reason for Appointment: Patient ID: Juanpablo Chaparro is a 24 y.o. female who presents for Routine Visit Patient presents today for Return OB appointment. MEDICATIONS Current Outpatient Medications Medication Instructions GW-Xmy-WC-[place]-3 ( GUMMIES/DHA & FA PO) 1 each, [...] nursing note reviewed. Exam conducted with a applied psychology chair present. Vitals: Estimated body mass index is 32.02 kg/m as calculated from the following: Height as of 03/08/24: 5' 5 . Weight as of this encounter: 192 lb 6.4 oz. BP: 120/70 Patient's last menstrual period was 11/18/2024 (approximate). ASSESSMENT & PLAN ICD-10-CM 1. 17 weeks gestation of ([facility]) Z3A.17 POCT urinalysis dipstick manually resulted Alpha fetoprotein, maternal Alpha fetoprotein, maternal 2. Second trimester ([facility]) Z34.92 POCT urinalysis dipstick manually resulted Alpha fetoprotein, maternal Alpha fetoprotein, maternal 3. Screening, , for anatomic survey ([facility]) Z36.89 US OB 14+ weeks anatomy scan [...] of: Devyn Tello DO documented in this encounterChildren's Mercy HospitalRruaslwfrd38-78-7096 Telephone encounter Note* Telephone Encounter - Nohelia Breen - 02/07/2025 3:45 PM EDT Patient called us today and was concerned as she is in early stages of , and she is havingstomach cramping all across her abdomen. Patient states she is having no bleeding at this time, butI spoke with clinical staff and they recommended she go to [facility] to get evaluated. [facility] HospitalUrlgzbtild21-55-0075 Miscellaneous Notes* Telephone Encounter - Nohelia Breen - 02/07/2025 3:45 PM EDT Patient called us today and was concerned as she is in early stages of , and she is havingstomach cramping all across her abdomen. Patient states she is having no bleeding at this time, butI spoke with clinical staff and they recommended she go to [facility] to get evaluated. documented in this encounterChildren's Mercy HospitalDoorzrfjmh81-65-5097 History of Present illness Narrative* Ciarra Castillo MA - 01/20/2025 9:00 AM EDT Reason for Appointment: Patient ID: Juanpablo Chaparro [...] weeks gestation of Nurse Note: Patient desires Rogers. Pt was advised to have both labs w/Rogers at [facility] or the lab dept will not draw Rogers w/o labs. PVU. Pt stated she had [...] drink 6-8 glasses of water a day, eatno raw or undercooked meat, and stay away from [facility]. Patient has also been advised to not change litter boxes and eat 6 small meals a day. Patient has been consulted regarding the do's and don'ts ofpregnancy. Patient was given labs and all questions [...] by: Ciarra Castillo MA documented in this encounterChildren's Mercy HospitalPouumztraz17-05-1608 History of Present illness Narrative* CHIKA Lyman - 12/06/2024 11:20 AM EDT Reason for Appointment: Patient ID: Juanpablo Chaparro is a 24 y.o. female who presents for STI Screening (Pt present todayfor std check) Patient presents today for Acute [...] cheated on her and she would like checked.Denies symptoms Documented by CHIKA Lyman on behalf of: CHIKA Lyman documented in this encounterChildren's Mercy HospitalZofyujbopg22-37-0448 History of Present illness Narrative* Tricia Ozuna, SALES PROMOTION MANAGER - 11/01/2024 10:00 AM EST Reason for Appointment: Patient ID: Juanpablo Chaparro [...] nursing note reviewed. Exam conducted with a applied psychology chair present. Vitals: Estimated body mass index is 32.64 kg/m as calculated from the following: Height as of 03/08/24: 5' 5 . Weight as of this encounter: 196 lb 1.9 oz. BP: 110/82 No LMP recorded. ASSESSMENT & PLAN ICD-10-CM 1. 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 Pt states celexa worked well for pt in the past. Ptdenies suicidal and homicidal ideations. Rx for Celexa faxed to pharmacy. Discussed control options with pt in detail. Mirena IUD, nuva ring, and or twirla discussed.Pt to call when decides control. Documented by Tricia Ozuna LPN on behalf of: Devyn Tello DO documented in this encounterChildren's Mercy HospitalPhavfncdsr76-25-6844 History of Present illness Narrative* Tricia Ozuna LPN - 08/29/2024 10:30 AM EST Reason for Appointment: Patient ID: Juanpablo Chaparro [...] nursing note reviewed. Exam conducted with a applied psychology chair present. Vitals: Estimated body mass index is [...] of: Devyn Tello DO documented in this encounterChildren's Mercy HospitalNzvfpfddfv36-53-6082 History of Present illness Narrative* Maryam Saul LPN - 06/13/2024 8:10 AM EDT Reason for Appointment: Patient ID: Juanpablo Chaparro is a 23 y.o. female who presents for No chief complaint on file. Patient presents today via telephone call for a telehealth appointment. Patients Phone #: [phone] (mobile) Current Medications: has a current medication [...] Cervical cancer Maternal Grandmother Cancer Maternal Grandfather Sukhjinedr prostate Lung cancer Paternal Grandmother Diabetes Mother's [...] of: Devyn Tello DO documented in this encounterChildren's Mercy HospitalSlrnvjdaid82-02-2823 History of Present illness Narrative* Ciarra Castillo MA - 11/12/2023 10:50 AM EST Reason for Appointment: Patient ID: Juanpablo Chaparro [...] of: Devyn Tello DO documented in this encounterChildren's Mercy HospitalYdmmxuucvd84-10-2541 Hospital Discharge instructions Patient Education 04/12/2022 21:07:38 General Headache [...] help with your condition: Managing pain Take jquo-xmn-uqtrjvs and prescription medicines only as told by [...] contain nicotine or tobacco, such as cigarettes, e- cigarettes, and chewing tobacco. If you need help [...] that is different from the usual headache, orif your symptoms are not helped by medicine. Get help right away if your headache becomes severe, you vomit, you have a loss of vision, you loseyour balance, or you have a seizure. This information is not intended to replace advice given to you by your health care provider. Make sure you discuss any questions you have with your health care provider. Document Released: 09/14/2006 Document Revised: 04/04/2019 Document Reviewed: 04/04/2019 [employer] Patient Education 2020 [employer] 04/12/2022 21:07:38 Vertigo Vertigo Vertigo is the feeling that you or your surroundings are moving when they are not. This feeling cancome and go at any time. Vertigo often [...] if you feel dizzy. General instructions Take ejka-mow-hkqgyny and prescription medicines only as told by [...] 06/24/2006 Document Revised: 08/08/2019 Document Reviewed: 08/08/2019 [employer] Patient Education 2020 [employer]. Follow Up Care 04/12/2022 19:25:17 With:ADRYAN MARIE Address: [address] [place] [address] Business (1) When:04/15/2022 20:55:24 Comments:Return to the emergency room if her headache gets worse, vertigo becomes persistent or any new symptoms [facility]07-13-2022 Evaluation note* Encounter Date Diagnosis Assessment Notes Treatment Notes Treatment Clinical Notes Mar, Vertigo (ICD-10 - R42) Vertigo [...] She was prescribed Zofran with no improvement. [facility] Other 07-06-2022 Evaluation note* Encounter Date Diagnosis [...] 3 days. No swimming for a week [facility] Other 01-28-2022 NoteOPERATIVE NOTE PROCEDURE: Diagnostic laparoscopy. PREOPERATIVE DIAGNOSIS: Pelvic pain, dyspareunia dysmenorrhea. POSTOPERATIVE DIAGNOSIS: Pelvic pain, dyspareunia dysmenorrhea. ANESTHESIA: General. SURGEON: Devyn Tello D.O. OYSTER TONGER: JAE Worley URINE OUTPUT: Yellow and clear. [...] taken to Recovery Room in stable condition. [facility] Signed and Approved by: DR DEVYN TELLO . 11/01/2021 17:31:00[facility] No data available for this section [facility]Evaluation noteNo InformationNoselect specialty hospital [employer] Other Evaluation note* Diagnosis Third trimester state, incidental Excessive growth affecting management of in third trimester, single or unspecified fetus documented in this encounter [facility]Evaluation [facility]* Diagnosis Well woman exam with routine gynecological exam Routine gynecological examination UTI symptoms Missed menses documented in this encounter [facility]* Diagnosis Post depression (CMS/HCC)- Primary Mental disorders of mother, complicating , childbirth, or the puerperium, unspecified as to episode of care documented in this encounter [facility]* Diagnosis Post depression (CMS/HCC) Mental disorders of mother, complicating , childbirth, [...] HealthcareEvaluation note* Diagnosis 17 weeks gestation of (HHS-HCC) Second trimester (HHS-HCC) state, incidental Screening, , for anatomic survey ([facility]) Encounter for anatomic survey Exposure to STD Vaginal discharge Leukorrhea, not specified as infective documented in this encounter [facility]* Diagnosis Second trimester (HHS-HCC) state, incidental 21 weeks gestation of (HHS-HCC) documented in this encounter [facility]Evaluation [facility]* Diagnosis 24 weeks gestation of ([facility]HS-HCC) Second trimester (HHS-HCC) state, incidental Subchorionic hemorrhage of placenta, antepartum ([facility]) Diabetes mellitus screening Screening for diabetes mellitus documented in this encounter [facility]* Diagnosis Third trimester (HHS-HCC) state, incidental 28 weeks gestation of ([facility]HS-HCC) size inconsistent with dates (HHS-HCC) documented in this encounter [facility]* Diagnosis Third trimester ([facility]HS-HCC) state, incidental 30 weeks gestation of ([facility]CC) documented in this encounter [facility] HealthcareEvaluation note* Diagnosis Third trimester (HHS-HCC) state, incidental 32 weeks gestation of (HHS-HCC) documented in this encounter [facility]* Diagnosis Third trimester (HHS-HCC) state, incidental 34 weeks gestation of (HHS-HCC) documented in this encounter [facility]* Diagnosis Third trimester (HHS-HCC) state, incidental 36 weeks gestation of (HHS-HCC) documented in this encounter [facility] HealthcareHistory general Narrative - Reported* Type Description Date Medical History acid reflux Medical HistoryheadacheSurgical Historylip surgerySurgical Historyendometriosis Hospitalization HistoryRSV as a baby [place] Other Progress note No data available for this section [facility] Summary Purpose Family History No Family History Records FoundNo Family History Records FoundNo Family History Records Found Advance Directives No Advanced Directives Records FoundNo Advanced Directives Records FoundNo Advanced Directives Records Found Additional Source Comments REASON FOR VISIT (unrecogniz ed section and content) ReasonCommentsRoutine VisitReasonCommentsWell Women VisitReasonComments Post DepressionReasonCommentsSTI ScreeningPt present today for std check ReasonCommentsAmenorrhea Care Team (unrecognized sect ion and content) Team MemberRelationshipSpecialtyStart DateEnd Date Adryan Marie MD [address] [place] [address] PCP - [facility]06/19/23Team MemberRelationshipSpecialtyStart DateEnd Date Adryan Marie MD [address] [place] [address] PCP - [facility]06/19/23Team MemberRelationshipSpecialtyStart DateEnd Date Adryan Marie MD [address] [place] [address] [facility]/23Team MemberRelationshipSpecialtyStart DateEnd Date Adryan Marie MD [address] [place] [address] PCP - [facility]06/19/23Te MemberRelationshipSpecialtyStart DateEnd Date Adryan Marie MD [address] [place] [address] PCP - [facility]06/19/23Te MemberRelationshipSpecialtyStart DateEnd Date Adryan Marie MD [address] [place] [address] PCP - [facility]06/19/23Te MemberRelationshipSpecialtyStart DateEnd Date Adryan Marie MD [address] [place] [address] [facility] - [facility]06/19/23 Devyn Tello DO [address] [place] [address] [place] [address] [facility] - [facility]09/28/24Te MemberRelationshipSpecialtyStart DateEnd Date Adryan Marie MD [address] [place] [address] PCP - [facility]06/19/23 Devyn Tello DO [address] [place] [address] [place] [address] [facility] - [facility]09/28/24Te MemberRelationshipSpecialtyStart DateEnd Date Adryan Marie MD [address] [place] [address] PCP - [facility]06/19/23 Devyn Tello, DO [address] [place] [address] PCP [facility]09/28/24Te MemberRelationshipSpecialtyStart DateEnd Date Adryan Marie MD [address] [address] PCP - [facility]06/19/23 Devyn Tello, DO [address] [place] [address] PCP - [facility]09/28/24Te MemberRelationshipSpecialtyStart DateEnd Date Adryan Marie MD [address] [place] [address] PCP - [facility]06/19/23 Devyn Tello, [place] [facility] [place] [address] PCP [facility]09/28/24Te MemberRelationshipSpecialtyStart DateEnd Date Adryan Marie MD [address] [place] [address] PCP - [facility]06/19/23 Devny Tello, [place] [facility] [place] [address] [facility]10/22Te MemberRelationshipSpecialtyStart DateEnd Date Adryan Marie MD [address] [place] [address] PCP - [facility]06/19/23 Devyn Tello, [place] [facility] [place] [address] PCP [facility]09/28/24Te MemberRelationshipSpecialtyStart DateEnd Date Adryan Marie MD [address] [place] [address] PCP - [facility]06/19/23 Devyn Tello, DO [facility] [place] [address] PCP - [facility]09/28/24Te MemberRelationshipSpecialtyStart DateEnd Date Adryan Marie MD [address] [place] [address] PCP - [facility]06/19/23 Devyn Tello, DO [facility] [place] [address] PCP [facility]10/22Te MemberRelationshipSpecialtyStart DateEnd Date Adryan Marie MD [address] [place] [address] PCP - [facility]06/19/23 Devyn Tello, DO [facility] [place] [address] [address]10/22Te MemberRelationshipSpecialtyStart DateEnd Date Adryan Marie MD [address] [place] [address] PCP - [facility]06/19/23 Devyn Tello, [address] [place] [address] PCP [facility]09/28/24Te MemberRelationshipSpecialtyStposey DateEnd Date Adryan Marie MD [address] [place] [address] PCP - [facility]06/19/23 Devyn Tello, DO [address] [place] [address] PCP - [facility]09/28/24 INFORMATION SOURCE (unrecogn ized section and content) DATE CREATED AUTHOR 04/26/2022 [facility] DATE CREATED AUTHOR AUTHOR'S ORGANIZ ATION 09/19/2022 [facility] DATE CREATED AUTHOR AUTHOR'S ORGANIZ ATION 07/19/2025 [facility] EPIC FOR RECORDS PERTAINING TO PATIENTS [...] BE BASED ON THE PRIMARY CLINICAL RECORDS. Review Track[employer] [facility]. provides no warranty or guarantee of the accuracy or completeness of information in this document.
== END 2025-08-02 15:08 | disposition home or self-care (01) ==
LOC: LAB 15:07
PROVIDERS: Visit Provider Physician Assistant
DX: Z34.93 Encounter for supervision of normal pregnancy, unspecified, third trimester (principal); Z3A.36 36 weeks gestation of pregnancy
CPT/HCPCS: 87081

== ENCOUNTER 2025-08-18 07:28 | Inpatient (IN) | payer OTHER, SELFPAY ==
--- OUTSIDE RECORDS SUMMARY | 2025-08-08 10:20 | XMS_ITS | Encounter Summary ---
Author Organization [facility] Address [address] [facility] [place] [address] Care Team Providers Care Link Knitting Machine Operator Name Role Phone Roberto Marie MD Primary Care Provider + [phone] Devyn Tello DO Unavailable Reason for Visit * ReasonCommentsRoutine Visit Encounter Details DateTypeDepartmentCare Team (Latest Contact Info)Gycwgjdszhg30/11/2025 10:20 AM ESTRoutine [facility] [address] [place] [address] Devyn Tello DO [address] [place] [id number] 37 weeks gestation of ([facility] Third trimester ([facility]); Subchorionic hemorrhage of placenta, antepartum ([facility]) Social History Tobacco UseTypesPacks/DayYears UsedDateSmoking Tobacco: Former Comments:Current smoker (richar quency unknown) Alcohol UseStandard Drinks/WeekCommentsNever0 (1 standard drink = 0.6 oz pure alcohol)PHQ-2AnswerDate RecordedPatient Health Questionnaire-2 [id number] Estimated Date of CqckysccMcktsuysLmq27/28/2025Based on last menstrual period of 11/18/2024 (Approximate)Sex and Gender InformationValueDate RecordedSex Assigned at BirthNot on fileLegal JcuQnrcxs73/15/2023 6:47 PM EDTGender Identity Not on fileSexual OrientationNot on filedocumented as of this encounter Last Filed Vital Signs Vital SignReadingTime TakenCommentsBlood Rxdxbhkf564/80110/08/2024 10:41 AM EST Pulse--Temperature--Respiratory Rate--Oxygen Saturation--Inhaled Oxygen Concentration--Qrxxhx277 kg (229 lb)08/08/2025 10:41 AM ESTHeight--Body Mass Index38.11003/08/2024 11:37 AM EDTdocumented in this encounter Progress Notes * Tricia Ozuna, SPOOL CLEANER HAND - 08/08/2025 10:20 AM EST Reason for Appointment: Patient ID: Breonna Reynoso is a 24 y.o. female who presents for Routine Visit Patient presents today for Return OB appointment. MEDICATIONS Current Outpatient Medications Medication Instructions BO-Smk-[facility]-3 ( GUMMIES/DHA & FA PO) 1 each, Daily ALLERGIES Allergies Allergen Reactions Sulfa Antibiotics Fever, Hives and Rash PROBLEMS Active Ambulatory Problems Diagnosis Date Noted Third trimester ([facility]) 06/20/2025 30 weeks gestation of ([facility]) 06/20/2025 Resolved Ambulatory Problems Diagnosis Date Noted [...] nursing note reviewed. Exam conducted with a microbiology coordinator present. Vitals: Estimated body mass index is 38.11 kg/m?? as calculated from the following: Height as of 03/08/24: 5' 5 . Weight as of this encounter: 229 lb. BP: 120/80 Patient's last menstrual period was 11/18/2024 (approximate). Assessment/Plan ICD-10-CM 1. 37 weeks gestation of ([facility]) Z3A.37 POCT urinalysis dipstick manually resulted 2. Third trimester ([facility]) Z34.93 POCT urinalysis dipstick manually resulted 3. Subchorionic hemorrhage of placenta, antepartum ([facility]) O46.8X9 Return OB: Patient presents today for a routine obstetrics appointment. Patient is currently 37w4d . Patient states she is doing well but has complaints of being tired due to current . Patient has verbalizes frequent movement. labor precautions was discussed/given and patient was instructed to perform kick counts three times a day. Orders Placed This Encounter Procedures POCT urinalysis dipstick manually resulted Follow Up: Patient is to return to office in 1 week for routine OB appointment. Documented by Tricia Ozuna LPN on behalf of: Devyn Tello DO documented in this encounter Plan of Treatment DateTypeDepartmentCare Team (Latest Contact Info)Huunttldnim77/26/2025 2:50 PM ESTOffice Visit [facility] [address] [place] [phone] Cydney Aviles PA [address] [place] [address] documented as of this encounter Goals GoalPatient Goal TypeAssociated ProblemsRecent ProgressPatient-Stated?Author Reminders Care PlanOB RemindersNoOpen Scheduling, Backgrounddocumented as of this encounter Procedures Procedure NamePriorityDate/TimeAssociated DiagnosisCommentsPOCT URINALYSIS LLIVJVAEFmiqwni57/11/2025 10:54 AM EST 37 weeks gestation of ([facility]) Third trimester ([facility]) documented in this encounter Results * POCT urinalysis dipstick manually resulted (08/08/2025 10:54 AM EST)Component ValueRef RangeTest MethodAnalysis TimePerformed AtPathologist SignatureColor, UAYellowClarity, UAClearGlucose, UANegativeNegative - 2000(110) ++++ mg/dL Bilirubin, UANegativeNegative - 4(70) +++ mg/dLKetones, UANegativeNegative - 160(16) ++++ mg/dLSpec Grav, UA1.0101 - 1.03Blood, UANegativeNegative - 50 Cedric/mcLpH, UA6.05 - 9Protein, UANegativeNegative - 2000(20) ++++ mg/dL Urobilinogen, UA1.00.2 - 12 mg/dLLeukocytes, UANegativeNegative - 500+++ Alessandro/mcLNitrite, UANegativeNegative - PositiveSpecimen (Source)Anatomical Location / LateralityCollection Method / VolumeCollection TimeReceived Time Urine08/08/2025 10:54 AM EST Narrative Authorizing ProviderResult TypeResult StatusCorey Omer DOPOINT OF CARE TEST ENTER/EDIT ORDERABLESFinal Result documented in this encounter Visit Diagnoses Diagnosis 37 weeks gestation of ([facility]) Third trimester ([facility]) state, incidental Subchorionic hemorrhage of placenta, antepartum ([facility]) documented in this encounter Additional Health Concerns Active ProblemsNoted DateDiagnosed DateOB Jeztixiro49/30/2023 documented as of this encounter Care Teams Team MemberRelationshipSpecialtyStart DateEnd Date Roberto Marie MD [address] [place] [address] [facility] - [facility]06/19/23 Devyn Tello DO [address] [place] [address] PCP - [facility]09/28/24documented as of this encounter
--- OUTSIDE RECORDS SUMMARY | 2025-08-15 10:10 | XMS_ITS | Encounter Summary ---
Author Organization [facility] Address [address] [facility] [place] [address] Care Team Providers Care Inter Fold Roll Cutter Name Role Phone Roberto Marie MD Primary Care Provider + [phone] Devyn Tello DO Unavailable Reason for Visit * ReasonCommentsRoutine Visit Encounter Details DateTypeDepartmentCare Team (Latest Contact Info)Hdwxjvlmgzq11/18/2025 10:10 AM ESTRoutine [facility] [address] [place] [address] Cydney Aviles PA [address] [place] [address] 38 weeks gestation of ([facility]); Third trimester ([facility]); Subchorionic hemorrhage of placenta, antepartum ([facility]) Social History Tobacco UseTypesPacks/DayYears UsedDateSmoking Tobacco: Former Comments:Current smoker (richar quency unknown) Alcohol UseStandard Drinks/WeekCommentsNever0 (1 standard drink = 0.6 oz pure alcohol)PHQ-2AnswerDate RecordedPatient Health Questionnaire-2 Otztz522 Estimated Date of MtemwvthFbdmvpakNfg96/28/2025Based on last menstrual period of 11/18/2024 (Approximate)Sex and Gender InformationValueDate RecordedSex Assigned at BirthNot on fileLegal EbnUcjmnz65/ 6:47 PM EDTGender Identity Not on fileSexual OrientationNot on filedocumented as of this encounter Last Filed Vital Signs Vital SignReadingTime TakenCommentsBlood Mucggoyo812/8208/15/2025 10:33 AM EST Pulse--Temperature--Respiratory Rate--Oxygen Saturation--Inhaled Oxygen Concentration--Vktaqv780 kg (229 lb 3.2 oz)08/15/2025 10:33 AM ESTHeight--Body Mass Index38.1406 11:37 AM EDTdocumented in this encounter Progress Notes * CHIKA Lyman - 08/15/2025 10:10 AM EST Reason for Appointment: Patient ID: Breonna Reynoso is a 24 y.o. female who presents for Routine Visit Patient presents today for Return OB appointment. MEDICATIONS Current Outpatient Medications Medication Instructions PK-Xgl-ED-[place]-3 ( GUMMIES/DHA & FA PO) 1 each, Daily ALLERGIES Allergies Allergen Reactions Sulfa Antibiotics Fever, Hives and Rash PROBLEMS Active Ambulatory Problems Diagnosis Date Noted Third trimester ([facility]) 06/20/2025 30 weeks gestation of ([facility]) 06/20/2025 Resolved Ambulatory Problems Diagnosis Date [...] reviewed. Vitals: Estimated body mass index is 38.14 kg/m?? as calculated from the following: Height as of 03/08/24: 5' 5 . Weight as of this encounter: 229 lb 3.2 oz. BP: 120/82 Patient's last menstrual period was 11/18/2024 (approximate). Assessment/Plan ICD-10-CM 1. 38 weeks gestation of ([facility]) Z3A.38 CANCELED: POCT urinalysis dipstick manually resulted 2. Third trimester ([facility]) Z34.93 CANCELED: POCT urinalysis dipstick manually resulted 3. Subchorionic hemorrhage of placenta, antepartum ([facility]) O46.8X9 Assessment/Plan Return OB: Patient presents today for a routine obstetrics appointment. Patient is currently 38w4d . Patient states she is doing well but has complaints of being tired due to current . Patient has verbalizes frequent movement. labor precautions was discussed/given and patient was instructed to perform kick counts three times a day. No orders of the defined types were placed in this encounter. Follow Up: Patient is to return to office in 1 week for routine OB appointment. Documented by CHIKA Lyman on behalf of: CHIKA Lyman documented in this encounter Plan of Treatment DateTypeDepartmentCare Team (Latest Contact Info)Xrwzemvouei31/26/2025 2:50 PM ESTOffice Visit [facility] [address] [place] [address] Cydney Aviles PA [address] [place], [place] [id number] documented as of this encounter Goals GoalPatient Goal TypeAssociated ProblemsRecent ProgressPatient-Stated?Author Reminders Care PlanOB RemindersNoOpen Scheduling, Backgrounddocumented as of this encounter Visit Diagnoses Diagnosis 38 weeks gestation of ([facility]) Third trimester ([facility]) state, incidental Subchorionic hemorrhage of placenta, antepartum ([facility]) documented in this encounter Additional Health Concerns Active ProblemsNoted DateDiagnosed DateOB Akiytmocq20/30/2023 documented as of this encounter Care Teams Team MemberRelationshipSpecialtyStart DateEnd Date Roberto Marie MD [address] [place] [address] [facility] - [facility] Devyn Tello DO [address] [place] [address] PCP - [facility]09/28/24documented as of this encounter
[2025-08-18] VITALS (31 sets, daily range): BP systolic 110–173; BP diastolic 47–99; PULSE 77–119; TEMP 36.6–37.1; O2SAT 95–100
--- OUTSIDE RECORDS SUMMARY | 2025-08-18 07:33 | XMS_ITS | CCD ---
Author Organization [facility] Inform ion Partnership [facility] Care Team Providers Care Supervisor [employer] Name Role Phone Deonna Back Unavailable OSCAR, ADRYAN Primary Care Physician LESLEY, [...] Unavailable Defrance Adryan OBRIEN Primary Care Provider [phone] Omer DO, Devyn Unavailable Adryan Marie MD Primary Care Provider Adryan Marie MD Primary Care Provider [phone] Omer DO, Devyn Unavailable OMER, DEVYN Attending Unavailable TRACI, CYDNEY Attending Unavailable OMER, DEVYN Attending Unavailable OMER, DEVYN Referring Unavailable OMER, DEVYN Attending Unavailable OMER, DEVYN Referring Unavailable OMER, DEVYN Attending Unavailable TRACI, CYDNEY Attending Unavailable OMER, DEVYN Attending Unavailable OMER, DEVYN Referring Unavailable OMER, DEVYN Attending Unavailable CYDNEY STALLINGS Attending Unavailable OMER, DEVYN Attending Unavailable TRACI, CYDNEY Attending Unavailable OMER, DEVYN Attending Unavailable OMER, DEVYN Attending Unavailable Allergies Allergy ClassificationReported Allergen(s)Allergy TypeDate of OnsetReaction(s) Facility (3 sources)SulfacetamideDrug AllergySt[facility] [place] [employer] Other (1 source)Sulfonamides (Antibiotic); Translations: [sulfa drugs]Drug allergy Hyperpyrexia (finding)[facility] (1 source)Sulfonamides (Antibiotic)Drug allergy (disorder)05-10-7138[facility] (20 sources)Sulfonamides (Antibiotic)Drug Qfwohiorvqz35-70-3928Mfhpu, Hives, RashNOMS Healthcare Work Phone: Medications Current Medications MedicationDrug Class(es)DatesSig (Normalized)Sig (Original)citalopram 20 mg oral tablet (13 sources)Serotonin Reuptake InhibitorStart: 04-14-2024 End: 58-53-9148befc 1 tablet by mouth once dailycitalopram (CeleXA) 20 MG tablet Indications: Post depression (CMS/HCC) Take 1 tablet (20 mg) by mouth Daily 90 tablet 3 11/30/2024 11/25/2025 ActiveEthinyl Estradiol / Ferrous fumarate / Norethindrone (11 sources)EstrogenStart: 54-59-9902Ypdamolr FE 10/17 1-20 MG-MCG tablet 12/06/2024 ActiveStart: 05-12-2024 End: 50-67-7370yxms 1 tablet by mouth once daily, then take 1 tablet by mouth once dailynorethindrone-ethinyl estradiol (10/17) 1-20 MG-MCG tablet Indications: Encounter for initial prescription of contraceptive pills Take 1 tablet by mouth Daily for 28 days Take 1 tablet by mouth daily 28 tablet 05/12/2024 11/01/2024 Discontinued (Other)Start: 09-36-5502evxi 1 tablet by mouth once daily, then take 1 tablet by mouth once dailynorethindrone-ethinyl estradiol (10/17) 1-20 MG-MCG tablet Indications: Encounter for initial prescription of contraceptive pills Take 1 tablet by mouth Daily for 28 days Take 1 tablet by mouth daily 28 tablet 05/12/2024 Activefluticasone propionate 0.05 mg/actuat metered dose nasal spray (2 sources)CorticosteroidStart: 99-49-9797dlym 2 spray(s) nasal route once daily Fluticasone Propionate 50 MCG/ACT 2 sprays Nasally Once a day for 14 day(s) Mar, ActiveIbuprofen (3 sources)Nonsteroidal Anti-inflammatory DrugIbuprofen ActiveOndansetron (2 sources)Serotonin-3 Receptor AntagonistZofran ActivepredniSONE 20 mg oral tablet (5 sources)Start: 18-81-1694biyi 1 tablet by mouth every twelve hourspredniSONE 20 MG 1 tablet Orally 2 times a day for 5 day(s) Mar, ActivePrenatal MV & Min w/FA-DHA ([facility]) 0.4-25 MG chewable tablet (3 sources)Start: 35-48-1332Mruoaxer MV & Min w/FA-DHA ([facility]) 0.4- 25 MG chewable tablet CHEW 1 GUMMY BY MOUTHEVERY MORNING 0 10/06/2023 Active MK-Wks-WE-Nora-3 ( GUMMIES/DHA & FA PO) (20 sources) ZC-Cbg-BS-Nora-3 ( GUMMIES/DHA & FA PO) Take 1 each by mouth Daily Active Completed/Discontinued Medications MedicationDrug Class(es)DatesSig (Normalized)Sig (Original)[id number] 200 actuat albuterol 0.09 mg/actuat metered dose inhaler (3 sources)beta2-Adrenergic AgonistStart: 30-65-2013lbgw 2 puff(s) by inhalation every four to six hours as neededProAir HFA 108 (90 Base) MCG/ACT 2 puffs as needed Inhalation every 4-6 hrs January, Not-Takingamoxicillin 500 mg oral capsule (6 sources)Penicillin-class AntibacterialStart: 46-86-5604uedt 1 capsule by mouth every eight hoursAmoxicillin 500 MG 1 capsule Orally three times a day for 10 day(s) Mar, Not-TakingStart: 93-99-5162omsl 1 tablet by mouth every eight hoursAmoxicillin 875 MG 1 tablet Orally every 8 hrs for 10 day(s) January, Not-Takingazithromycin 250 mg oral tablet (6 sources)Macrolide AntimicrobialStart: 03-08-2024 End: 46-00-8349gspzbofgeerl (Zithromax Z-Darren) 250 MG tablet Indications: Upper respiratory tract infection, unspecified type As directed 6 tablet 03/08/2024 08/29/2024 DiscontinuedBrompheniramine / Pseudoephedrine (3 sources)alpha-Adrenergic AgonistStart: 38-71-8384inaf 5 mL by mouth every six hours as neededBromfed DM 30-2-10 MG/5ML 5 ml as needed Orally every 6 hrs January, Not-TakingdiphenhydrAMINE hydrochloride 25 mg oral capsule (6 sources)Histamine-1 Receptor AntagonistStart: 03-29-2024 End: 66-77-4508ezyt 1 capsule by mouth every six hoursdiphenhydrAMINE (Benadryl Allergy) 25 MG capsule Indications: Allergy, initial encounter Take 1 capsule (25 mg) by mouth every 6 (six) hours if needed for itching for up to 10 days 30 capsule 03/29/2024 08/29/2024 Discontinuedethinyl estradiol 0.035 mg / norgestimate 0.25 mg oral tablet (6 sources)Progestin, EstrogenStart: 04-14-2024 End: 16-85-4957rmfb 1 tablet by mouth once daily, then take 1 tablet by mouth once dailynorgestimate-ethinyl estradiol (Sprintec 28) 0.25-35 MG-MCG tablet Indications: Surveillance for control, oral contraceptives Take 1 tablet by mouth Daily Take 1 tablet by mouth daily 90 fwoqpr7404/14/2024 08/29/2024 Discontinuedhydrocortisone 10 mg/ml / neomycin 3.5 mg/ml / polymyxin b 46901 unt/ml otic suspension (3 sources)Aminoglycoside Antibacterial, Polymyxin-class Antibacterial, CorticosteroidStart: 83-30-1396Opxgqkai-Polymyxin-HC 3.5-45800-9 3 drops left ear Three times a day for 7 days Mar, Not-Takingmupirocin 0.02 mg/mg topical ointment (3 sources)RNA Synthetase Inhibitor AntibacterialStart: 04-54-7911Fskvhoocg 2 % 1 application to affected area Externally once per day for 7 days January, Not-TakingPrenatal AE-Xuu-UD-Nora-3 ( Gummies/DHA & FA) 0.4-32.5 MG chewable tablet (5 sources)Start: 06-19-2023 End: 26-83-4345Rehocopt JC-Ysn-UN-Nora-3 ( Gummies/DHA & FA) 0.4-32.5 MG chewable tablet Indications:Missed menses Chew 32.5 mg in the morning. 30 tablet 11 06/19/2023 11/26/2023 DiscontinuedStart: 06-19-2023 End: 91-75-7415Tpzjejok OO-Crw-RU-Nora-3 ( Gummies/DHA & FA) 0.4-32.5 MG chewable tablet Indications:Missed menses Chew 32.5 mg in the morning. 30 tablet 06/19/2023 06/18/2024 Active Problems Active Problems Problem ClassificationProblemDateDocumented DateEpisodic/ChronicAbdominal pain (5 sources)Unspecified abdominal pain; Translations: [Pelvic and perineal pain] Onset: 80-93-8369MespngmsCtqosayz reactions (1 source)Allergy, unspecified, initial encounter; Translations: [ALLERGY UNSPECIFIED INITIAL ENCNTR]Onset: 34-86-1601RkklbabrOvyaqcupwo associated with dizziness or vertigo (3 sources)Dizziness and giddiness; Translations: [Dizziness and giddiness] Onset: 04-09-2022 Resolved: 34-89-0103TbcymbccTbzkv and electrolyte disorders (1 source)Hypokalemia; Translations: [HYPOKALEMIA]Onset: 91-14-4195Mmnwppwq Gastrointestinal hemorrhage (4 sources)Hematemesis; Translations: [HEMATEMESIS]Onset: 63-72-6099Atiqkncu Genitourinary symptoms and ill-defined conditions (2 sources)Urinary symptoms ; Translations: [Unspecified symptoms and signs involving the genitourinary system]91-61-1439WxbmmhmsLqstqojx; including migraine (1 source)Headache; Translations: [Headache, unspecified]Onset: 04-12-2022 EpisodicHeadache; including migraine (4 sources)Headache; including migraine; Translations: [HEADACHE UNSPECIFIED] Onset: 22-43-1381Rfdmwihkgj during ; abruptio placenta; placenta previa (2 sources)Subchorionic hematoma; Translations: [Other antepartum hemorrhage, unspecified trimester]48-19-9204GcmacdcjBefwcewqmvlac and screening for infectious disease (4 sources)Exposure to sexually transmissible disorder; Translations: [Contact with and (suspected) exposure to infections with a predominantly sexual mode of transmission]30-65-9325IbiwfekvOoxbwsbhp disorders (4 sources)Dysmenorrhea, unspecified; Translations: [Missed period]Onset: 916965-65-8040MetdribAvyfrmdvfaqow mental health disorders (4 sources) depression; Translations: [ depression] 66-82-6768HfyokapcFdacu complications of (2 sources)Excessive growth affecting management of mother; Translations: [Maternal care for excessive growth, third trimester, not applicable or unspecified]20-80-7190WuqxxlxdUwoag complications of (2 sources) size does not accord with dates; Translations: [Uterine size- date discrepancy, unspecified trimester]59-43-3559QkibubtkAkgjd female genital disorders (1 source)Unspecified dyspareunia; Translations: [UNSPECIFIED DYSPAREUNIA]Onset: 94-72-7703KvbcvhpFgjmf female genital disorders (2 sources)Vaginal discharge; Translations: [Other specified noninflammatory disorders of vagina]17-00-9976LutvhvucIozjh gastrointestinal disorders (5 sources)Diarrhea, unspecified; Translations: [DIARRHEA UNSPECIFIED]Onset: 63-92-5660JffhztmgZbapq and delivery including normal (20 sources)Third trimester ; Translations: [Encounter for supervision of normal , unspecified, third trimester]Onset: EpisodicOther screening for suspected conditions (not mental disorders or infectious disease) (4 sources)Patient encounter status; Translations: [Encounter for other specified screening]61-94-2666HaiucjfxYqdxn skin disorders (5 sources)Rash and other nonspecific skin eruption; Translations: [RASH OTH NONSPECIFIC SKIN ERUPTION]Onset: 51-07-1296EpwmfgnsVakaodfl codes; unclassified (1 source)Gestation period, 9 weeks; Translations: [9 weeks gestation of ]07-25-2404OajxcheeEeyvfpet codes; unclassified (2 sources)Gestation period, 17 weeks; Translations: [17 weeks gestation of ]08-91-8847NinldqopJhdjqbhm codes; unclassified (2 sources)Gestation period, 21 weeks; Translations: [21 weeks gestation of ]88-03-6122InrvtikxGhrzizcp codes; unclassified (2 sources)Gestation period, 24 weeks; Translations: [24 weeks gestation of ]59-13-6525QqsiwmlgFzefdknc codes; unclassified (2 sources)Gestation period, 28 weeks; Translations: [28 weeks gestation of ]54-29-6992ElyledevQowjbwvv codes; unclassified (20 sources)Gestation period, 30 weeks; Translations: [30 weeks gestation of ]Onset: 594379-74-5571BqirgtztUyceegrj codes; unclassified (2 sources)Gestation period, 32 weeks; Translations: [32 weeks gestation of ]56-05-2249UubymgirYwnpvjjk codes; unclassified (2 sources)Gestation period, 34 weeks; Translations: [34 weeks gestation of ]83-18-5598UcwlelssEmnagvxz codes; unclassified (2 sources)Gestation period, 36 weeks; Translations: [36 weeks gestation of ]93-18-4466VufqpwtuYouslvbie-related disorders (2 sources)Nicotine dependence, other tobacco product, uncomplicated; Translations: [Nicotine dependence, cigarettes, uncomplicated]Onset: 08-14-2022 ChronicUnclassified (1 source)CONTACT W/AND (SUSP) EXPOS COVID-19; Translations: [CONTACT W/AND (SUSP) EXPOS COVID-19]Onset: 22-49-0927Xdrxelljjdzh (20 sources)OB RemindersOnset: 129297-89-2932 Past or Other Problems Problem ClassificationProblemDateDocumented DateEpisodic/ChronicNausea and vomiting (3 sources)Nausea with vomiting, unspecified; Translations: [NAUSEA WITH VOMITING UNSPECIFIED]Onset: 20-95-7216VlbypzzsVnzmqrhhvvunx gastroenteritis (1 source)Noninfective gastroenteritis and colitis, unspecified; Translations: [NONINFECTIVE GE AND COLITIS UNS]Onset: 15-85-1018EjknggtjNkhzq ear and sense organ disorders (1 source)Unspecified acute noninfective otitis externa, left earOnset: 04-02-2022 Resolved: 27-42-7031Tygmxhhb Results Test NameValueInterpretationReference RangeFacilitySTREP GP B CULTURE+RFLXon 99-98-0020SZMZF GP B CULTURE+RFLX Strep Gp B Culture+Rflx NOMS HealthcareSTREP GP B CULTURE+RFLXNegativeNOMS HealthcareSTREP GP B CULTURE+RFLXCenters for Disease Control and Prevention (CDC) andNOMS Healthcare STREP GP B CULTURE+RFLXAmerican Congress of Obstetricians and GynecologistsNOMS HealthcareSTREP GP B CULTURE+RFLX(ACOG) guidelines for prevention of group BNOMS HealthcareSTREP GP B CULTURE+RFLXstreptococcal (GBS) disease specify co-collection ofNOMS HealthcareSTREP GP B CULTURE+RFLXa vaginal and rectal swab specimen to maximizeNOMS HealthcareSTREP GP B CULTURE+RFLXsensitivity of GBS detection. Per the CDC and ACOG,NOMS HealthcareSTREP GP B CULTURE+RFLXswabbing both the lower vagina and rectumNOMS HealthcareSTREP GP B CULTURE+RFLX substantially increases the yield of detectionNOMS HealthcareSTREP GP B CULTURE+RFLXcompared with sampling the vagina alone.NOMS HealthcareSTREP GP B CULTURE+RFLXPenicillin G, ampicillin, or cefazolin are indicatedNOMS Healthcare STREP GP B CULTURE+RFLXfor intrapartum prophylaxis of GBSNOMS HealthcareSTREP GP B CULTURE+RFLXcolonization. Reflex susceptibility testing should beNOMS HealthcareSTREP GP B CULTURE+RFLXperformed prior to use of clindamycin only on GBSNOMS HealthcareSTREP GP B CULTURE+RFLXisolates from penicillin-allergic women who areNOMS HealthcareSTREP GP B CULTURE+RFLX considered a high risk for anaphylaxis. Treatment withNOMS HealthcareSTREP GP B CULTURE+RFLXvancomycin without additional testing is warranted ifNOMS Healthcare STREP GP B CULTURE+RFLXresistance to clindamycin is noted.NOMS HealthcareSTREP GP B CULTURE+RFLXPerformed at: - [facility] WetmoreNOIA HealthcareSTREP GP B CULTURE+XROI[address] [place], [place] [id number] HealthcareSTREP GP B CULTURE+RFLXLab Director: Bobby Segal PhD, Phone: [phone] HealthcareCLINISYNCNINSPIRE SPECIAL[facility] HealthcareUrinalysis macro (dipstick) panel (U)on 49-52-1702Ltztvhdfo, UANegativeNegative - 4(70) +++ mg/dLNOMS HealthcareBlood, UANegativeNegative - 50 Cedric/mcLNOIA HealthcareClarity, UAClearNOMS Healthcare Color, UAYellowNOMS HealthcareGlucose, UANegativeNegative - 2000(110) ++++ mg/dL [facility] HealthcareInterpretation and review of laboratory resultsNormalNOIA HealthcareKetones, UANegativeNegative - 160(16) ++++ mg/dLNOIA Healthcare Leukocytes, UANegativeNegative - 500+++ Alessandro/mcLNOIA HealthcareNitrite, UA NegativeNegative - PositiveNOMS HealthcarepH, UA6.05 - 9NOMS HealthcareProtein, UANegativeNegative - 2000(20) ++++ mg/dLNOMS HealthcareSpec Grav, UA1.0151 - 1.03NOMS HealthcareUrobilinogen, UA0.20.2 - 12 mg/dLNOIA HealthcareNOIA HealthcareUrinalysis macro (dipstick) panel (U)on 48-31-7745Kqsnpniuh, UA NegativeNegative - 4(70) +++ mg/dLNOMS HealthcareBlood, [...] mg/dLNOMS HealthcareNOMS HealthcareUrinalysis macro (dipstick) panel (U)on 21-37-7198Wvsdjpgvs, UANegativeNegative - 4(70) +++ mg/dL NOMS HealthcareBlood, UANegativeNegative - 50 Cedric/mcLNOMS HealthcareClarity, UA ClearNOMS HealthcareColor, UAYellowNOMS HealthcareGlucose, UANegativeNegative - 2000(110) ++++ mg/dLNOMS HealthcareInterpretation and review of laboratory resultsNormalNOMS HealthcareKetones, UANegativeNegative - 160(16) ++++ mg/dLNOMS HealthcareLeukocytes, UANegativeNegative - 500+++ Alessandro/[facility] HospitalNOMS HealthcareNitrite, UANegativeNegative - PositiveNOMS HealthcarepH, UA6.55 - 9NOMS Healthcare Protein, UANegativeNegative - 2000(20) ++++ mg/dLNOMS HealthcareSpec Grav, UA 1.0051 - 1.03NOMS HealthcareUrobilinogen, UA2.00.2 - 12 mg/dLNOMS HealthcareNOMS HealthcareUS OB FOLLOW UP TRANSABDOMINAL APPROACHon 49-58-0159HN OB FOLLOW UP TRANSABDOMINAL APPROACHFINDINGS: Comparison made [...] Delivery: 08/25/25 Gestational Age as of 06/06/2025: 73x7mSalqcafwsf macro (dipstick) panel (U) Ordered By: Belen Vera on 97-96-8150Lfnlnhifv, UANegativeNegative - 4(70) +++ mg/dLNOMS HealthcareBlood, UANegativeNegative [...] ++++ mg/dLNOMS HealthcareInterpretation and review of laboratory resultsNormalNOIA Healthcare Ketones, UANegativeNegative - 160(16) ++++ mg/dLNOMS HealthcareLeukocytes, UA NegativeNegative - 500+++ Alessandro/mcLNOMS HealthcareNitrite, UANegativeNegative - PositiveNOMS HealthcarepH, UA75 - 9NOMS HealthcareProtein, UANegativeNegative - 1999(20) ++++ mg/dLNOMS HealthcareSpec Grav, UA1.011 - 1.03NOIA Healthcare Urobilinogen, UA0.20.2 - 12 mg/dLNOMS [facility] DaytonNOIA HealthcareGLUCOSE 1 HOURon 21-16-5557Diqegyi [Mass/Vol]101 mg/dLNINF - 130 mg/dLNOMS HealthcareCLINISYNC NOMS HealthcareUrinalysis macro (dipstick) panel (U)on 78-03-6696Kigybkaeh, UA NegativeNegative - 4(70) +++ mg/dLNOMS HealthcareBlood, UANegativeNegative - 50 Cedric/mcLNOMS HealthcareClarity, UAClearNOMS HealthcareColor, UAYellowNOMS HealthcareGlucose, UANegativeNegative - 1999(110) ++++ mg/dLNOMS Healthcare Interpretation and review of laboratory resultsNormalNOIA HealthcareKetones, UA NegativeNegative - 160(16) ++++ mg/dLNOMS HealthcareLeukocytes, UANegative Negative - 500+++ Alessandro/mcLNOMS HealthcareNitrite, UANegativeNegative - Positive NOMS HealthcarepH, UA65 - 9NOMS HealthcareProtein, UANegativeNegative - 1999(20) ++++ mg/dLNOMS HealthcareSpec Grav, UA1.021 - 1.03NOIA HealthcareUrobilinogen, UA1.00.2 - 12 mg/dLNOMS HealthcareNOMS HealthcareUrinalysis macro (dipstick) panel (U)Ordered By: Jasmin Nogueira on 76-80-9491Xggkfxicd, UANegativeNegative - 4(70) +++ mg/dLNOMS Healthcare Work [...] Phone: US OB 14+ WEEKS ANATOMY SCANon 90-22-0058GR OB 14+ WEEKS ANATOMY SCANEXAM: US OB [...] II, MD, PHD at 19-Apr-2025 10:16:24 AM [facility] TeleradiologyNormalNot AvailableComment on above:Order Comment: US OB ANATOMY SINGLE W US OB CERVICAL LENGTH Estimated Date of Delivery: 08/25/25 Gestational Age as of 03/20/2025: 90f7nFjpyranqbf macro (dipstick) panel (U)on 17-87-4685Iphzxdslf, UANegativeNegative - 4(70) +++ mg/dLNOMS HealthcareBlood, UANegativeNegative - 50 Cedric/mcLNOMS HealthcareClarity, UAClearNOMS Healthcare Color, UAYellowNOMS HealthcareGlucose, UANegativeNegative - 1999(110) ++++ mg/dL NOMS HealthcareInterpretation and review of laboratory resultsNormalNOIA HealthcareKetones, UANegativeNegative - 160(16) ++++ mg/dLNOIA Healthcare Leukocytes, UANegativeNegative - 500+++ Alessandro/mcLNOMS HealthcareNitrite, UA NegativeNegative - PositiveNOIA HealthcarepH, UA6.55 - 9NOIA HealthcareProtein, UANegativeNegative - 2000(20) ++++ mg/dLNOIA HealthcareSpec Grav, UA1.011 - 1.03 NOMS HealthcareUrobilinogen, UA0.20.2 - 12 mg/dLNOIA HealthcareNOMS HealthcareUS OB LIMITED 1+ FETUSESon 44-71-8307YI OB LIMITED 1+ FETUSESEXAM: US OB LIMITED [...] II, MD, PHD at 28-Feb-2025 11:32:13 PM [facility] TeleradiologyNormalNot AvailableComment on above:Order Comment: US OB VIABILITY PLEASE PERFORM TRANSVAGINAL ULTRASOUND IF INDICATED Patient's last menstrual period was 11/18/2024 (approximate).BOX TESTon 12-35-6862PAG TEST SENT OUTUNITY BOXHUN[facility] McvexkxwoyWKW0DJEJKOPDM HealthcareBOX2 01/30/25NOIA HealthcareCLINISYNCNOMS HealthcareHCG ( test) Ql (U)on 54-19-3331Fdppqsxmqrzzqc and review of laboratory resultsAbnormalNOMS Healthcare Preg Test, UrPositiveNegativeNOMS HealthcareNOMS HealthcareUS OB TRANSVAGINALon 96-41-9486BB OB TRANSVAGINALEXAM: US OB TRANSVAGINAL HISTORY: Dating. [...] II, MD, PHD at 20-Jan-2025 09:44:55 AM [facility] TeleradiologyNormalNot AvailableComment on above:Order Comment: US OB TRANSVAGINAL No LMP recorded.Urinalysis macro (dipstick) panel (U)on 86-44-1887Idujlktgu, UA NegativeNegative - 4(70) +++ mg/dLNOMS HealthcareBlood, UANegativeNegative - 50 Cedric/mcLNOMS HealthcareClarity, UAClearNOMS HealthcareColor, UAYellowNOMS HealthcareGlucose, UANegativeNegative - 2000(110) ++++ mg/dLNOMS Healthcare Interpretation and review of laboratory resultsNormalNOMS HealthcareKetones, UA NegativeNegative - 160(16) ++++ mg/dLNOIA HealthcareLeukocytes, UANegative Negative - 500+++ Alessandro/mcLNOIA HealthcareNitrite, UANegativeNegative - Positive NOMS HealthcarepH, UA7.55 - 9NOMS HealthcareProtein, UATraceNegative - 2000(20) ++++ mg/dLNOIA HealthcareSpec Grav, UA1.021 - 1.03NOMS HealthcareUrobilinogen, UA0.20.2 - 12 mg/dLNOSSM Health CareNOIA HealthcareHCG ( test) Ql (U)on 58-72-8961Vwjfxxyjlasltx and review of laboratory resultsNormalPers[facility] Preg Test, UrNegativeNegativeNOCass Medical Center HealthcareIGP,APTIMA HPV,AGE GDLNon 75-52-8340ETE GDLN ACOG TESTINGNote.[facility] HealthcareComment on above:TESTS RESULT FLAG UNITS REF RANGE LAB Clinician Provided Cytology Information Source.............Cervix;Endocervix No. of containers..01 ThinPrep Vial Age Algo ACOG Zari... -26 10 FLAG LEGEND: L-Low Normal,H-High Normal,LL-Alert Low,HH-Alert High <-Panic Low,>-Panic High,A-Abnormal,AA-Critical Abnormal Performed at: 01 = [facility] [address] [address] Dian Gauthier MD, IGP, RFX APTIMA HPV ASCUNote.NOMS HealthcareComment on above:TESTS RESULT FLAG UNITS REF RANGE LAB DIAGNOSIS: 02 NEGATIVE FOR INTRAEPITHELIAL LESION OR MALIGNANCY. Specimen adequacy: 02 Satisfactory for evaluation. Endocervical and/or squamous metaplastic cells (endocervical component) are present. Performed by: 02 Nohelia Deleon, Poultry Husbandry Teacher ([facility]) . 02 Note: Note 02 The Pap [...] <-Panic Low,>-Panic High,A-Abnormal,AA-Critical Abnormal Performed at: [address] [address] Dian Gauthier MD, Performed at: = - [facility] [id number] Director Of Medical Services: Dian Gauthier MD, Phone: [phone] Performed at: [facility] [address], [place] [id number] Director Of Medical Services: Dian Gauthier MD, Phone: [phone] BRUSH-SPATULA CERVIX ENDOCERVIX CLINISYNCNOMS HealthcareHCG ( test) Ql (U)on 94-03-2980Jyeiqafdcudlab and review of laboratory resultsNormalNOMS HealthcarePreg Test, UrNegative NegativeNOMS HealthcareNOMS HealthcareUrinalysis macro (dipstick) panel (U)on 76-30-6607Ztmhitqpd, UANegativeNegative - 4(70) +++ mg/dLNOMS HealthcareBlood, UANegativeNegative [...] mg/dLNOMS HealthcareNOMS HealthcareUS OB BPP W NON-STRESSon 30-56[address] [place] [address] Ultrasound Report Signed Patient: JUANPABLO CHAPARRO MR#: [id number] : 2000 Acct:[id number] Age/Sex: 23 / F ADM Date: 01/20/24 Loc: [facility] 254-[address]: Devyn Tello D.O. Ordering Physician: Devyn Tello D.O. Date of Service: 01/20/24 Procedure(s): US OB BPP w non-stress Accession Number(s): [id number] cc: ADRYAN MARIE ; Devyn Tello D.O. The [place] [address] Patient Name: JUANPABLO CHAPARRO MRN: [facility]:[id number] date: 2000 Sex: F Assigned Patient Location: Current Patient Location: [facility] Accession/Order Number: [id number] Exam Date: 01/20/2024 10:00 Report Date: 01/20/2024 [...] Signed By: 01/20/24 1032 DD/ 1029 TD/TT: Load Tester:TBHRadiology, Radiologist, MD - 01/20/2024 [place] [address] Ultrasound Report Signed Patient: JUANPABLO CHAPARRO MR#: [id number] : 2000 Acct:[id number] Age/Sex: 23 / F ADM Date: 01/20/24 Loc: [facility] 254-[address]: Devyn Tello D.O. Ordering Physician: Devyn Tello D.O. Date of Service: 01/20/24 Procedure(s): US OB BPP w non-stress Accession Number(s): [id number] cc: ADRYAN MARIE ; Devyn Tello D.O. [place] [address] Patient Name: JUANPABLO CHAPARRO MRN: [facility]:[id number] date: 2000 Sex: F Assigned Patient Location: Current Patient Location: [facility] Accession/Order Number: [id number] Exam Date: 01/20/2024 10:00 Report Date: 01/20/2024 [...] Signed By: 01/20/24 1032 DD/ 1029 TD/TT: Load Tester: MARION HealthcareRadiology Study observation (narrative)NOMS HealthcareUS OB BPP W NON-STRESSOrdered By: Radiologist Radiology on 47-04-7628PPGA Healthcare Work Phone: US OB GROWTHon [phone] [address] Ultrasound Report Signed Patient: JUANPABLO CHAPARRO MR#: [id number] : 2000 Acct:[id number] Age/Sex: 23 / F ADM Date: 01/14/24 Loc: [facility] Attending Dr: Devyn Tello D.O. Ordering Physician: Devyn Tello D.O. Date of Service: 01/14/24 Procedure(s): US OB growth Accession Number(s): [id number] cc: ADRYAN MARIE ; Devyn Tello D.O. The [place] [id number] Patient Name: JUANPABLO CHAPARRO MRN: TBH:[id number] date: 2000 Sex: F Assigned Patient Location: [facility] Current Patient Location: [facility] Accession/Order Number: [id number] Exam Date: 01/14/2024 15:09 Report Date: 01/14/2024 [...] CASIANO Date: 01/14/2024 15:57 Dictated By: Wilbert Casiano M.D. Signed By: 01/14/241599 DD/ 155 TD/TT: Load Tester:SANJAYHRadiology, Radiologist, - 01/14/2024 [place] [address] Ultrasound Report Signed Patient: JUANPABLO CHAPARRO MR#: [id number] : 2000 Acct:[id number] Age/Sex: 23 / F ADM Date: 01/14/24 Loc: [facility] Attending Dr: Devyn Tello D.O. Ordering Physician: Devyn Tello D.O. Date of Service: 01/14/24 Procedure(s): US OB growth Accession Number(s): [id number] cc: ADRYAN MARIE ; Devyn Tello D.O. [place] [address] Patient Name: JUANPABLO CHAPARRO MRN: TBH:[id number] date: 2000 Sex: F Assigned Patient Location: [facility] Current Patient Location: [facility] Accession/Order Number: [id number] Exam Date: 01/14/2024 15:09 Report Date: 01/14/2024 [...] CASIANO Date: 01/14/2024 15:57 Dictated By: Wilbert Casiano M.D. Signed By: 01/14/24 1600 DD/ 1557 TD/TT: Load Tester: MARION HealthcareRadiology Study observation (narrative)MARION JhaveriUS OB GROWTHOrdered By: Radiologist Radiology on 85-91-1362JMPM [facility] Work Phone: US OB BPP W NON-STRESSon [phone] [place] [address] Ultrasound Report Signed Patient: JUANPABLO CHAPARRO MR#: [id number] : 2000 Acct:[id number] Age/Sex: 23 / F ADM Date: 01/13/24 Loc: US Attending Dr: Devyn Tello D.O. Ordering Physician: Devyn Tello D.O. Date of Service: 01/13/24 Procedure(s): US OB BPP w non-stress Accession Number(s): [id number] cc: ADRYAN MARIE ; Devyn Tello D.O. [place] [id number] Patient Name: JUANPABLO CHAPARRO MRN: [id number] date: 2000 Sex: F Assigned Patient Location: [facility] Current Patient Location: Accession/Order Number: [id number] Exam Date: 01/13/2024 10:00 Report Date: 01/13/2024 [...] Pretty M.D. Signed By: 01/13/24 1142 DD/ 38 TD/TT: Load Tester:FRANKadiologchyna Radiologist, - 01/13/2024 [place] [address] Ultrasound Report Signed Patient: JUANPABLO CHAPARRO MR#: [id number] : 2000 Acct:[id number] Age/Sex: 23 / F ADM Date: 01/13/24 Loc: US Attending Dr: Devyn Tello D.O. Ordering Physician: Devyn Tello D.O. Date of Service: 01/13/24 Procedure(s): US OB BPP w non-stress Accession Number(s): [id number] cc: ADRYAN MARIE ; Devyn Tello D.O. The [place] [phone] Patient Name: JUANPABLO CHAPARRO MRN: [id number] date: 2000 Sex: F Assigned Patient Location: [facility] Current Patient Location: Accession/Order Number: [id number] Exam Date: 01/13/2024 10:00 Report Date: 01/13/2024 [...] Pretty M.D. Signed By: 01/13/24 1142 DD/ 38 TD/TT: Load Tester: MARION JhaveriRadiology Study observation (narrative)MARION JhaveriUS OB BPP W NON-STRESSOrdered By: Radiologist Radiology on 83-42-6548EKRW [facility] Work Phone: US OB GROWTHon [phone] [address] Ultrasound Report Signed Patient: JUANPABLO CHAPARRO MR#: [id number] : 2000 Acct:[id number] Age/Sex: 23 / F ADM Date: 01/13/24 Loc: US Attending Dr: Devyn Tello D.O. Ordering Physician: Devyn Tello D.O. Date of Service: 01/13/24 Procedure(s): US OB growth Accession Number(s): [id number] cc: ADRYAN MARIE ; Devyn Tello D.O. The [address] [address] Patient Name: JUANPABLO CHAPARRO MRN: TBH:[id number] date: 2000 Sex: F Assigned Patient Location: [facility] Current Patient Location: Accession/Order Number: [id number] Exam Date: 01/13/2024 10:00 Report Date: 01/13/2024 [...] Signed By: 01/13/24 1143 DD/ 1140 TD/TT: Load Tester:TBHRadiology, Radiologist, MD - 01/13/2024 [place] [address] Ultrasound Report Signed Patient: JUANPABLO CHAPARRO MR#: [id number] : 2000 Acct:[id number] Age/Sex: 23 / F ADM Date: 01/13/24 Loc: US Attending Dr: Devyn Tello D.O. Ordering Physician: Devyn Tello D.O. Date of Service: 01/13/24 Procedure(s): US OB growth Accession Number(s): [id number] cc: ADRYAN MARIE ; Devyn Tello D.O. The [place] [address] Patient Name: JUANPABLO CHAPARRO MRN: TBH:[id number] date: 2000 Sex: F Assigned Patient Location: [facility] Current Patient Location: Accession/Order Number: [id number] Exam Date: 01/13/2024 10:00 Report Date: 01/13/2024 [...] Signed By: 01/13/24 1143 DD/ 1140 TD/TT: Load Tester: [facility] HealthcareRadiology Study observation (narrative)NOM HealthcareUS OB GROWTHOrdered By: Radiologist Radiology on 54-13-5438YNJM [facility] Work Phone: US OB BPP W NON-STRESSon [phone] [place] [address] Ultrasound Report Signed Patient: JUANPABLO CHAPARRO MR#: [id number] : 2000 Acct:[id number] Age/Sex: 23 / F ADM Date: 01/06/24 Loc: [facility] 254-[address]: Devyn Tello D.O. Ordering Physician: Devyn Tello D.O. Date of Service: 01/06/24 Procedure(s): US OB BPP w non-stress Accession Number(s): [id number] cc: ADRYAN MARIE Corey D.O. The [address] [address] Patient Name: JUANPABLO CHAPARRO MRN: [id number]:[id number] date: 2000 Sex: F Assigned Patient Location: [facility] Current Patient Location: [facility] Accession/Order Number: [id number] Exam Date: 01/06/2024 09:58 Report Date: 01/06/2024 [...] Signed By: 01/06/24 1044 DD/ 1039 TD/TT: Load Tester:TBHRadiology, Radiologist, - 01/06/2024 [place] [address] Ultrasound Report Signed Patient: JUANPABLO CHAPARRO MR#: [id number] : 2000 Acct:[id number] Age/Sex: 23 / F ADM Date: 01/06/24 Loc: [facility] 254-[address]: Devyn Tello D.O. Ordering Physician: Devyn Tello D.O. Date of Service: 01/06/24 Procedure(s): US OB BPP w non-stress Accession Number(s): [id number] cc: ADRYAN MARIE ; Devyn Tello D.O. The [place] [address] Patient Name: JUANPABLO CHAPARRO MRN: [facility]:[id number] date: 2000 Sex: F Assigned Patient Location: [facility] Current Patient Location: [facility] Accession/Order Number: [id number] Exam Date: 01/06/2024 09:58 Report Date: 01/06/2024 [...] Signed By: 01/06/24 1044 DD/ 1039 TD/TT: Load Tester: MARION HealthcareRadiology Study observation (narrative)NOM HealthcareUS OB BPP W NON-STRESSOrdered By: Radiologist Radiology on 17-70-7699AGEF [facility] Work Phone: US OB BPP W NON-STRESSon [phone] [place] [address] Ultrasound Report Signed Patient: JUANPABLO CHAPARRO MR#: [id number] : 2000 Acct:[id number] Age/Sex: 23 / F ADM Date: 12/30/23 Loc: [place] [address]- Attending Dr: Devyn Tello D.O. Ordering Physician: Devyn Tello D.O. Date of Service: 12/30/23 Procedure(s): US OB BPP w non-stress Accession Number(s): [id number] cc: ADRYAN MARIE Corey D.O. The [address] [address] Patient Name: JUANPABLO CHAPARRO MRN: [id number]:[id number] date: 2000 Sex: F Assigned Patient Location: [facility] Current Patient Location: [facility] Accession/Order Number: [id number] Exam Date: 12/30/2023 10:05 Report Date: 12/30/2023 [...] Casiano M.D. Signed By: 12/30/23 104 DD/ 40 TD/TT: Load Tester:SANJAYHRadiology, Radiologist, - 12/30/2023 [place] [address] Ultrasound Report Signed Patient: JUANPABLO CHAPARRO MR#: [id number] : 2000 Acct:[id number] Age/Sex: 23 / F ADM Date: 12/30/23 Loc: [address]: Devyn Tello D.O. Ordering Physician: Devyn Tello D.O. Date of Service: 12/30/23 Procedure(s): US OB BPP w non-stress Accession Number(s): [id number] cc: ADRYAN MARIE ; Devyn Tello D.O. The [place] [phone] Patient Name: JUANPABLO CHAPARRO MRN: TBH:[id number] date: 2000 Sex: F Assigned Patient Location: [facility] Current Patient Location: [facility] Accession/Order Number: [id number] Exam Date: 12/30/2023 10:05 Report Date: 12/30/2023 [...] Signed By: 12/30/23 1043 DD/ 104 TD/TT: Load Tester: MARION HealthcareRadiology Study observation (narrative)NOM HealthcareUS OB BPP W NON-STRESSOrdered By: Radiologist Radiology on 13-16-3535[facility] Work Phone: US OB GROWTHon [phone] [place] [address] Ultrasound Report Signed Patient: JUANPABLO CHAPARRO MR#: [id number] : 2000 Acct:[id number] Age/Sex: 23 / F ADM Date: 12/24/23 Loc: [facility] Attending Dr: Devyn Tello D.O. Ordering Physician: Devyn Tello D.O. Date of Service: 12/24/23 Procedure(s): US OB growth Accession Number(s): [id number] cc: ADRYAN MARIE ; Deyvn Tello D.O. The [place] [phone] Patient Name: JUANPABLO CHAPARRO MRN: [facility]:[id number] date: 2000 Sex: F Assigned Patient Location: [facility] Current Patient Location: [facility] Accession/Order Number: [id number] Exam Date: 12/24/2023 10:06 Report Date: 12/24/2023 [...] Age by EDC: 35 weeks 1 days TOMSAZ by EDC: 01/27/24 Age by US: 37w 5d TOMASZ by US: 01/09/24 US/US OB growth IMPRESSION: Large for gestational age Electronically authenticated by: ADRYAN PRETTY Date: 12/24/2023 10:58 Dictated By: Adryan Pretty M.D. Signed By: 12/24/23 1101 DD/ 1058 TD/TT: Load Tester:TBHRadiology, Radiologist, - 12/24/2023 [place] [address] Ultrasound Report Signed Patient: JUANPABLO CHAPARRO MR#: [id number] : 2000 Acct:[id number] Age/Sex: 23 / F ADM Date: 12/24/23 Loc: [facility] Attending Dr: Devyn Tello D.O. Ordering Physician: Devyn Tello D.O. Date of Service: 12/24/23 Procedure(s): US OB growth Accession Number(s): [id number] cc: ADRYAN MARIE ; Devyn Tello D.O. The [place] [phone] Patient Name: JUANPABLO CHAPARRO MRN: [facility]:[id number] date: 2000 Sex: F Assigned Patient Location: [facility] Current Patient Location: [facility] Accession/Order Number: [id number] Exam Date: 12/24/2023 10:06 Report Date: 12/24/2023 [...] Signed By: 12/24/23 1101 DD/ 1058 TD/TT: Load Tester: MARION HealthcareRadiology Study observation (narrative)[facility] HealthcareUS OB GROWTHOrdered By: Radiologist Radiology on 60-78-4806NE[facility] Work Phone: us OB BPP W NON-STRESSon [phone] [place] [address] Ultrasound Report Signed Patient: JUANPABLO CHAPARRO MR#: [id number] : 2000 Acct:[id number] Age/Sex: 23 / F ADM Date: 12/23/23 Loc: US Attending Dr: Devyn Tello D.O. Ordering Physician: Devyn Tello D.O. Date of Service: 12/23/23 Procedure(s): US OB BPP w non-stress Accession Number(s): [id number] cc: ADRYAN MARIE ; Devyn Tello D.O. [address] [address] Patient Name: JUANPABLO CHAPARRO MRN: [facility]:[id number] date: 2000 Sex: F Assigned Patient Location: [facility] Current Patient Location: Accession/Order Number: [id number] Exam Date: 12/23/2023 10:00 Report Date: 12/23/2023 [...] Signed By: 12/23/23 1055 DD/ 1052 TD/TT: Load Tester:SANJAYHRadiology, Radiologist, MD - 12/23/2023 [place] [address] Ultrasound Report Signed Patient: JUANPABLO CHAPARRO MR#: [id number] : 2000 Acct:[id number] Age/Sex: 23 / F ADM Date: 12/23/23 Loc: US Attending Dr: Devyn Tello D.O. Ordering Physician: Devyn Tello D.O. Date of Service: 12/23/23 Procedure(s): US OB BPP w non-stress Accession Number(s): [id number] cc: ADRYAN MARIE ; Devyn Tello D.O. The [address] [address] Patient Name: JUANPABLO CHAPARRO MRN: [facility]:[id number] date: 2000 Sex: F Assigned Patient Location: [facility] Current Patient Location: Accession/Order Number: [id number] Exam Date: 12/23/2023 10:00 Report Date: 12/23/2023 [...] Casiano M.D. Signed By: 12/23/23 1055 DD/ 105 TD/TT: Load Tester: MARION HealthcareRadiology Study observation (narrative)[facility] HealthcareUS OB BPP W NON-STRESSOrdered By: Radiologist Radiology on 40-96-7329HYWF [facility] Work Phone: US OB BPP W NON-STRESSon [phone] [place] [address] Ultrasound Report Signed Patient: JUANPABLO CHAPARRO MR#: [id number] : 2000 Acct:[id number] Age/Sex: 23 / F ADM Date: 12/16/23 Loc: [facility] 250-[address]: Devyn Tello D.O. Ordering Physician: Devyn Tello D.O. Date of Service: 12/16/23 Procedure(s): US OB BPP w non-stress Accession Number(s): [id number] cc: ADRYAN MARIE ; Devyn Tello D.O. The [address] [address] Patient Name: JUANPABLO CHAPARRO MRN: [id number] date: 2000 Sex: F Assigned Patient Location: US Current Patient Location: [facility] Accession/Order Number: [id number] Exam Date: 12/16/2023 10:00 Report Date: 12/16/2023 [...] profile score: 8.0 Electronically authenticated by: ADRYAN PRTETY Date: 12/16/2023 10:53 Dictated By: Adryan Pretty M.D. Signed By: 12/16/23 1055 DD/ 1053 TD/TT: Load Tester:TBHRadiology, Radiologist, MD - 12/16/[address] [address] Ultrasound Report Signed Patient: JUANPABLO CHAPARRO MR#: [id number] : 2000 Acct:[id number] Age/Sex: 23 / F ADM Date: 12/16/23 Loc: [facility] 250-[address]: Devyn Tello D.O. Ordering Physician: Devyn Tello D.O. Date of Service: 12/16/23 Procedure(s): US OB BPP w non-stress Accession Number(s): [id number] cc: ADRYAN MARIE ; Devyn Tello D.O. The [address] [address] Patient Name: JUANPABLO CHAPARRO MRN: [facility]:[id number] date: 2000 Sex: F Assigned Patient Location: US Current Patient Location: [facility] Accession/Order Number: [id number] Exam Date: 12/16/2023 10:00 Report Date: 12/16/2023 [...] Signed By: 12/16/23 1055 DD/ 1053 TD/TT: Load Tester: NOMSamina HealthcareRadiology Study observation (narrative)[facility] HealthcareUS OB BPP W NON-STRESSOrdered By: Radiologist Radiology on 18-15-6818DRKE [facility] Work Phone: US OB BPP W NON-STRESSon [phone] [address] Ultrasound Report Signed Patient: JUANPABLO CHAPARRO MR#: [id number] : 2000 Acct:[id number] Age/Sex: 23 / F ADM Date: 12/09/23 Loc: [facility] 250-[address]: Devyn Tello D.O. Ordering Physician: Devyn Tello D.O. Date of Service: 12/09/23 Procedure(s): US OB BPP w non-stress Accession Number(s): [id number] cc: ADRYAN MARIE ; Devyn Tello D.O. The [address] [address] Patient Name: JUANPABLO CHAPARRO MRN: [facility]:[id number] date: 2000 Sex: F Assigned Patient Location: US Current Patient Location: [facility] Accession/Order Number: [id number] Exam Date: 12/09/2023 09:55 Report Date: 12/09/2023 [...] Signed By: 12/09/23 1031 DD/ 1029 TD/TT: Load Tester:SANJAYHRadiology, Radiologist, MD - 12/09/2023 [place] [address] Ultrasound Report Signed Patient: JUANPABLO CHAPARRO MR#: [id number] : 2000 Acct:[id number] Age/Sex: 23 / F ADM Date: 12/09/23 Loc: [facility] 250-[address]: Devyn Tello D.O. Ordering Physician: Devyn Tello D.O. Date of Service: 12/09/23 Procedure(s): US OB BPP w non-stress Accession Number(s): [id number] cc: ADRYAN MARIE ; Devyn Tello D.O. The [address] [address] Patient Name: JUANPABLO CHAPARRO MRN: [facility]:[id number] date: 2000 Sex: F Assigned Patient Location: US Current Patient Location: [facility] Accession/Order Number: [id number] Exam Date: 12/09/2023 09:55 Report Date: 12/09/2023 [...] Signed By: 12/09/23 1031 DD/ 1029 TD/TT: Load Tester: NOMSamina HealthcareRadiology Study observation (narrative)[facility] HealthcareUS OB BPP W NON-STRESSOrdered By: Radiologist Radiology on 61-07-1579W[facility]R [facility] Work Phone: US OB BPP W NON-STRESSon 18[address] [place] [address] Ultrasound Report Signed Patient: JUANPABLO CHAPARRO MR#: [id number] : 2000 Acct:[id number] Age/Sex: 23 / F ADM Date: 12/01/23 Loc: [facility] 250-[address]: Devyn Tello D.O. Ordering Physician: Devyn Tello D.O. Date of Service: 12/01/23 Procedure(s): US OB BPP w non-stress Accession Number(s): [id number] cc: ADRYAN MARIE ; Devyn Tello D.O. The [address] [address] Patient Name: JUANPABLO CHAPARRO MRN: [facility]:[id number] date: 2000 Sex: F Assigned Patient Location: [facility] Current Patient Location: [facility] Accession/Order Number: [id number] Exam Date: 12/01/2023 15:08 Report Date: 12/01/2023 [...] PRETTY Date: 12/01/2023 15:47 Dictated By: Adryan Pretyt M.D. Signed By: 12/01/23 1550 DD/ 1547 TD/TT: Load Tester:SANJAYHRadiology, Radiologist, - 12/01/[address] [address] Ultrasound Report Signed Patient: JUANPABLO CHAPARRO MR#: [id number] : 2000 Acct:[id number] Age/Sex: 23 / F ADM Date: 12/01/23 Loc: [facility] 250-[address]: Devyn Tello D.O. Ordering Physician: Devyn Tello D.O. Date of Service: 12/01/23 Procedure(s): US OB BPP w non-stress Accession Number(s): [id number] cc: ADRYAN MARIE ; Devyn Tello D.O. [address] [id number] Patient Name: JUANPABLO CHAPARRO MRN: [id number]:[id number] date: 2000 Sex: F Assigned Patient Location: [facility] Current Patient Location: [facility] Accession/Order Number: [id number] Exam Date: 12/01/2023 15:08 Report Date: 12/01/2023 [...] By: Adryan Pretty M.D. Signed By: 12/01/23 1554 DD/ 1547 TD/TT: Load Tester: MARION HealthcareRadiology Study observation (narrative)[facility] HealthcareUS OB BPP W NON-STRESSOrdered By: Radiologist Radiology on 30-85-1127INBP [facility] Work Phone: US OB GROWTHon [phone] [address] Ultrasound Report Signed Patient: JUANPABLO CHAPARRO MR#: [id number] : 2000 Acct:[id number] Age/Sex: 23 / F ADM Date: 11/26/23 Loc: [facility] Attending Dr: Devyn Tello D.O. Ordering Physician: Devyn Tello D.O. Date of Service: 11/26/23 Procedure(s): US OB growth Accession Number(s): [id number] cc: ADRYAN MARIE ; Devyn Tello D.O. [place] [phone] Patient Name: JUANPABLO CHAPARRO MRN: [facility]:[id number] date: 2000 Sex: F Assigned Patient Location: [facility] Current Patient Location: [facility] Accession/Order Number: [id number] Exam Date: 11/26/2023 10:29 Report Date: 11/26/2023 [...] Signed By: 11/26/23 1118 DD/ 1115 TD/TT: Load Tester:TBHRadiology, Radiologist, - 11/26/2023 [place] [address] Ultrasound Report Signed Patient: JUANPABLO CHAPARRO MR#: [id number] : 2000 Acct:[id number] Age/Sex: 23 / F ADM Date: 11/26/23 Loc: [facility] Attending Dr: Devyn Tello D.O. Ordering Physician: Devyn Tello D.O. Date of Service: 11/26/23 Procedure(s): US OB growth Accession Number(s): [id number] cc: ADRYAN MARIE ; Devyn Tello D.O. The [place] [address] Patient Name: JUANPABLO CHAPARRO MRN: [facility]:[id number] date: 2000 Sex: F Assigned Patient Location: [facility] Current Patient Location: [facility] Accession/Order Number: [id number] Exam Date: 11/26/2023 10:29 Report Date: 11/26/2023 [...] Signed By: 11/26/23 1118 DD/ 1115 TD/TT: Load Tester: MARION [facility] DaytonRadiology Study observation (narrative)NOM HealthcareUS OB GROWTHOrdered By: Radiologist Radiology on 70-18-5476GJID [facility] Work Phone: Urinalysis macro (dipstick) panel [...] mg/dLNOMS HealthcareNOMS HealthcareALL CBC WITH AUTO DIFFon 39-95-2696SIQVFIAVX ABSOLUTE AUTO0.0NOMS HealthcareBasophils/100 WBC (Bld)0.3 %0.2 - 2.0 %[facility] HealthcareEosinophils/100 WBC (Bld)1.0 %0.9 - 7.0 % NOM HealthcareErythrocyte distribution width (RBC) [Ratio]12.5 %11.0 - 15.0 % [facility] HealthcareHematocrit (Bld) [Volume fraction]35.1 %Low36.0 - 48.0 %NOM HealthcareHemoglobin (Bld) [Mass/Vol]11.7 g/dLLow12.0 - 16.0 g/dLNOMS Healthcare IMMATURE GRANULOCYTES ABS AUTO0.08HighPershing Memorial HospitalImmature granulocytes/100 WBC (Bld)0.6 %High0.0 - 0.5 %[facility] Memorial HospitalInterpretation and review of laboratory resultsAbnormalNOSSM Health CareLYMPHOCYTES ABSOLUTE AUTO1.6NOSSM Health CareLymphocytes/100 WBC (Bld)11.9 %Low20.5 - 60.0 %[facility] SystemH (RBC) [Entitic mass]30.7 pg26.7 - 34.0 pgFreeman Health SystemHC (RBC) [Mass/Vol] 33.3 g/dL29.9 - 35.2 g/dLFreeman Health SystemV (RBC) [Entitic vol]92.1 fL81.0 - 99.0 fLPershing Memorial HospitalMONOCYTES ABSOLUTE AUTO0.8NOSSM Health CareMonocytes/100 WBC (Bld)5.5 %1.7 - 12.0 %[facility] Memorial HospitalNEUTROPHILS ABSOLUTE AUTO11.1HighPershing Memorial HospitalNeutrophils/100 WBC (Bld)80.7 %High43.0 - 75.0 %[facility] Platelet mean volume (Bld) [Entitic vol]10.6 fL9.5 - 13.5 fLPershing Memorial HospitalTB EO #0.1NOMS [facility] DaytonTB UUB982YJDEDoctors Hospital of Springfield RBC3.81LowNODoctors Hospital of [place] WBC13.8HighPershing Memorial HospitalCLINISYNCNOMS [facility] DaytonNo Panel InformationOrdered By: Radiologist Radiology on 26-02-8848VEXBPershing Memorial Hospital Work Phone: No Panel Informationon 84-65-8655Rlmxquoxc Study observation (narrative)[facility] OB ANATOMYon 23-84[address] [address] Ultrasound Report Signed Patient: JUANPABLO CHAPARRO MR#: [id number] : 2000 Acct:[id number] Age/Sex: 23 / F ADM Date: 09/17/23 Loc: US Attending Dr: Devyn Tello D.O. Ordering Physician: Devyn Tello D.O. Date of Service: 09/17/23 Procedure(s): US OB anatomy Accession Number(s): [id number] cc: ADRYAN MARIE ; Devyn Tello D.O. [place] [phone] Patient Name: JUANPABLO CHAPARRO MRN: [facility]:[id number] date: 2000 Sex: F Assigned Patient Location: US Current Patient Location: Accession/Order Number: [id number] Exam Date: 09/17/2023 08:38 Report Date: 09/17/2023 [...] M.D. Signed By: 09/17/232226 DD/ 24 TD/TT: Load Tester:FRANKadiologchyna, Radiologist, - 09/17/2023 [place] [address] Ultrasound Report Signed Patient: JUANPABLO CHAPARRO MR#: [id number] : 2000 Acct:[id number] Age/Sex: 23 / F ADM Date: 09/17/23 Loc: US Attending Dr: Devyn Tello D.O. Ordering Physician: Devyn Tello D.O. Date of Service: 09/17/23 Procedure(s): US OB anatomy Accession Number(s): [id number] cc: ADRYAN MARIE ; Devyn Tello D.O. The [place] [address] Patient Name: JUANPABLO CHAPARRO MRN: [id number] date: 2000 Sex: F Assigned Patient Location: US Current Patient Location: US Accession/Order Number: [id number] Exam Date: 09/17/2023 08:38 Report Date: 09/17/2023 [...] M.D. Signed By: 09/17/232226 DD/ 24 TD/TT: Load Tester: MARION Armendariz OB CERVICAL LENGTHon [id number] [place] [address] Ultrasound Report Signed Patient: JUANPABLO CHAPARRO MR#: [id number] : 2000 Acct:[id number] Age/Sex: 23 / F ADM Date: 09/17/23 Loc: US Attending Dr: Devyn Tello D.O. Ordering Physician: Devyn Tello D.O. Date of Service: 09/17/23 Procedure(s): US OB cervical length Accession Number(s): [id number] cc: ADRYAN MARIE ; Devyn Tello D.O. [address] [address] Patient Name: JUANPABLO CHAPARRO MRN: [id number] date: 2000 Sex: F Assigned Patient Location: US Current Patient Location: US Accession/Order Number: [id number] Exam Date: 09/17/2023 08:38 Report Date: 09/17/2023 [...] M.D. Signed By: 09/17/232226 DD/ 24 TD/TT: Load Tester:TBHRadiology, Radiologist, MD - 09/17/2023 [place] [address] Ultrasound Report Signed Patient: JUANPABLO CHAPARRO MR#: [id number] : 2000 Acct:[id number] Age/Sex: 23 / F ADM Date: 09/17/23 Loc: US Attending Dr: Devyn Tello D.O. Ordering Physician: Devyn Tello D.O. Date of Service: 09/17/23 Procedure(s): US OB cervical length Accession Number(s): [id number] cc: ADRYAN MARIE ; Devyn Tello D.O. [place] [id number] Patient Name: JUANPABLO CHAPARRO MRN: [id number] date: 2000 Sex: F Assigned Patient Location: US Current Patient Location: Accession/Order Number: [id number] Exam Date: 09/17/2023 08:38 Report Date: 09/17/2023 [...] M.D. Signed By: 09/17/232226 DD/ 24 TD/TT: Load Tester: MARION JhaveriLIVINGSTON [facility] AUTO DIFFon [id number] #0.0 103/ulNormal0.0-0.1The [facility] CenterComment on above:Performed By: #### BMP, TSH #### [facility] [address] [place] [address] Dr. Reema MirelesBasophils/100 WBC (Bld)0.6 %Normal0.2-2.0[facility] Comment on above:Performed By: #### BMP, TSH #### [facility] [address] [place] [address] Dr. Reema Lowe #0.0 103/ulNormal0.0-0.7The [facility] CenterComment on above: Performed By: #### BMP, TSH #### [facility] [address] [place] [address] Dr. Reema Carpenterosinophils/100 WBC (Bld)0.6 %Critically low0.9-7.0The [facility] CenterComment on above:Performed By: #### BMP, TSH #### [facility] [address] [place] [address] Dr. Reema Carpenterrythrocyte distribution width (RBC) [Ratio]11.9 %Dxqbri90.0-15.0 The [facility] CenterComment on above:Performed By: #### BMP, TSH #### [facility] [address] [place] [address] Dr. Reema MirelesHematocrit (Bld) [Volume fraction]37.8 %Ikngnn96.0-48.0The [facility] CenterComment on above:Performed By: #### BMP, TSH #### [facility] [address] [place] [address] Dr. Reema MirelesHemoglobin (Bld) [Mass/Vol]13.5 g/nQDzbpaj25.0-16.0The [facility] CenterComment on above:Performed By: #### BMP, TSH #### [facility] [address] [place], [place] [id number] Dr. Reema Rocha #0.01 10e3/ulNormal0.00-0.03The [facility] CenterComment on above:Performed By: #### BMP, TSH #### [facility] [address] [place] [address] Dr. Reema Rocha %0.2 %Normal0.0-0.5The [facility] CenterComment on above: Performed By: #### BMP, TSH #### [facility] [address] [place] [address] Dr. Reema Zayas #1.6 103/ulNormal1.2-3.8The [facility] CenterComment on above:Performed By: #### BMP, TSH #### [facility] [address] [place] [address] Dr. Reema Kimhocytes/100 WBC (Bld)25.5 %Wwjdze12.5-60.0The [facility] CenterComment on above:Performed By: #### BMP, TSH #### [facility] [address] [place] [address] Dr. Reema StephensUAL DIFF REQNONormalThe [facility] CenterComment on above: Performed By: #### BMP, TSH #### [facility] [address] [place] [address] Dr. Reema Vincent (RBC) [Entitic mass]30.9 afTibdrh28.7-34.0The [facility] CenterComment on above:Performed By: #### BMP, TSH #### [facility] [address] [place] [address] Dr. Reema Vincent (RBC) [Mass/Vol]35.7 g/dLCritically high29.9-35.2The [facility] CenterComment on above:Performed By: #### BMP, TSH #### [facility] [address] [place] [address] Dr. Reema Vincent (RBC) [Entitic vol]86.5 lHUwkjna69.0-99.0The [facility] CenterComment on above:Performed By: #### BMP, TSH #### [facility] [address] [address] [address] Reema Weller #0.5 103/ulNormal0.3-0.8The [facility] CenterComment on above:Performed By: #### BMP, TSH #### [facility] [address] [place] [address] Dr. Reema Galiciaocytes/100 WBC (Bld)8.5 %Normal1.7-12.0The [facility] Comment on above:Performed By: #### BMP, TSH #### [facility] [address] [place] [address] Dr. Reema Bradshaw #4.1 103/ulNormal1.4-6.5The [facility] CenterComment on above:Performed By: #### BMP, TSH #### [facility] [address] [place] [address] Dr. Reema Oneilutrophils/100 WBC (Bld)64.6 %Gknvqz91.0-75.0The [facility] CenterComment on above:Performed By: #### BMP, TSH #### [facility] [address] [place] [address] Dr. Reema Rivero mean volume (Bld) [Entitic vol]9.9 fLNormal9.5-13.5The [facility] CenterComment on above:Performed By: #### BMP, TSH #### [facility] [address] [place] [address] Dr. Reema WatkinsT403 103/wbDcfakt184-995Bft [facility] CenterComment on above: Performed By: #### BMP, TSH #### [facility] [address] [place] [address] Dr. Reema MirelesRBC4.37 106/ulNormal4.20-5.40The [facility] CenterComment on above:Performed By: #### BMP, TSH #### [facility] [address] [place] [address] Dr. Reema MirelesWBC6.3 103/ulNormal4.0-11.0The [facility] HospitalComment on above: Performed By: #### BMP, TSH #### [facility] [address] [address] [address] Reema Chung 14(COMP METB)on 53-51-4284Ctextwp [Mass/Vol]4.3 g/dLNormal 3.4-5.0The [facility] CenterComment on above:Performed By: #### BMP, TSH #### [facility] [address] [address] [address] Reema MirelesAlbumin/Globulin [Mass ratio]1.2 {ratio}NormalThe [facility] CenterComment on above:Performed By: #### BMP, TSH #### [facility] [address] [place] [address] Dr. Reema Porter [Catalytic activity/Vol]79 U/NFwzalq78-341Gfo [facility] CenterComment on above:Performed By: #### BMP, TSH #### [facility] [address] [place] [address] Dr. Reema Johnson [Catalytic activity/Vol]31 U/TRndsmd36-07Cuf [facility] CenterComment on above:Performed By: #### BMP, TSH #### [facility] [address] [place] [address] Dr. Reema Tan gap [Moles/Vol]12.1 mmol/LNormalThe [facility] Comment on above:Performed By: #### BMP, TSH #### [facility] [address] [place] [address] Dr. Reema Edward [Catalytic activity/Vol]17 U/IIenwln59-89Bgh [facility] Medical Centerment on above:Performed By: #### BMP, TSH #### [facility] [address] [place] [address] Dr. Reema MirelesBilirubin [Mass/Vol]0.4 mg/dLNormal0.2-1.0The [facility] Comment on above:Performed By: #### BMP, TSH #### [facility] [address] [place] [address] Dr. Reema MirelesCalcium [Mass/Vol]8.9 mg/dLNormal8.5-10.1The [facility] Comment on above:Performed By: #### BMP, TSH #### [facility] [address] [place] [address] Dr. Reema MirelesChloride [Moles/Vol]98 mmol/ZGkqqis39-981Eip [facility] Comment on above:Performed By: #### BMP, TSH #### [facility] [address] [place] [address] Dr. Reema MirelesCO2 [Moles/Vol]27.0 mmol/URbqczo01.0-32.0The [facility] Comment on above:Performed By: #### BMP, TSH #### [facility] [address] [place] [address] Dr. Reema MirelesCreatinine [Mass/Vol]0.65 mg/dLNormal0.55-1.02The [facility] CenterComment on above:Performed By: #### BMP, TSH #### [facility] [address] [place] [address] Dr. Reema CarpenterGFR-AF CENTRAL AFRICAN>60Normal>=60The [facility] CenterComment on above:Performed By: #### BMP, TSH #### [facility] [address] [place] [address] Dr. Reema CarpenterGFR-NON AF CENTRAL AFRICAN>60Normal>=60The [facility] CenterComment on above:Performed By: #### BMP, TSH #### [facility] [address] [place] [address] Dr. Reema MirelesGlobulin (S) [Mass/Vol]3.5 g/dLNormalThe [facility] CenterComment on above:Performed By: #### BMP, TSH #### [facility] [address] [place] [address] Dr. Reema MirelesGlucose [Mass/Vol]106 mg/gKOqzzrr68-300Qlg [facility] Comment on above:Performed By: #### BMP, TSH #### [facility] [address] [place] [address] Dr. Reema MirelesPotassium [Moles/Vol]3.1 mmol/LCritically low3.5-5.1The [facility] CenterComment on above:Performed By: #### BMP, TSH #### [facility] [address] [place] [address] Dr. Reema MirelesProtein [Mass/Vol]7.8 g/dLNormal6.4-8.2[facility] Comment on above:Performed By: #### BMP, TSH #### [facility] [address] [place] [address] Dr. Reema Melissadium [Moles/Vol]134 mmol/LCritically fvx676-837Vvu [facility] CenterComment on above:Performed By: #### BMP, TSH #### [facility] [address] [place] [address] Dr. Reema Britt nitrogen [Mass/Vol]6.0 mg/dLCritically low7.0-18.0The [facility] CenterComment on above:Performed By: #### BMP, TSH #### [facility] [address] [place] [address] Dr. Reema Britt nitrogen/Creatinine [Mass ratio]9.2 mg/mgNormalThe [facility] CenterComment on above:Performed By: #### BMP, TSH #### [facility] [address] [place] [address] Dr. Reema MirelesACETONE SERUMon 39-81-0207VJXOJCXCfshywnqCuocwuYSAZHMIYTxn [facility] CenterComment on above:Performed By: #### BMP, TSH #### [facility] [address] [place] [address] Dr. Reema BloodC AUTO DIFFon 51-88-6291RRRS #0.1 103/ulNormal0.0-0.1The [facility] CenterComment on above:Performed By: #### BMP, TSH #### [facility] [address] [place] [address] Dr. Reema MirelesBasophils/100 WBC (Bld)0.5 %Normal0.2-2.0The [facility] Comment on above:Performed By: #### BMP, TSH #### [facility] [address] [place] [address] Dr. Reema Lowe #0.1 103/ulNormal0.0-0.7The [facility] CenterComment on above: Performed By: #### BMP, TSH #### [facility] [address] [place] [address] Dr. Reema Carpenterosinophils/100 WBC (Bld)0.7 %Critically low0.9-7.0The [facility] CenterComment on above:Performed By: #### BMP, TSH #### [facility] [address] [place] [address] Dr. Reema Carpenterrythrocyte distribution width (RBC) [Ratio]11.7 %Jssrri51.0-15.0 The [facility] CenterComcorewell health [facility] on above:Performed By: #### BMP, TSH #### [facility] [address] [place] [address] Dr. Reema MirelesHematocrit (Bld) [Volume fraction]37.6 %Lsvnwx16.0-48.0The [facility] CenterComment on above:Performed By: #### BMP, TSH #### [facility] [address] [place] [address] Dr. Reema MirelesHemoglobin (Bld) [Mass/Vol]13.1 g/gSHxjzfk43.0-16.0The [facility] CenterComcorewell health [facility] on above:Performed By: #### BMP, TSH #### [facility] [address] [place] [address] Dr. Reema Rocha #0.02 10e3/ulNormal0.00-0.03The [facility] CenterComcorewell health [facility] on above:Performed By: #### BMP, TSH #### [facility] [address] [place] [address] Dr. Reema Rocha %0.2 %Normal0.0-0.5The [facility] on above: Performed By: #### BMP, TSH #### [facility] [address] [place] [address] Dr. Reema Zayas #2.7 103/ulNormal1.2-3.8The [facility] CenterComment on above:Performed By: #### BMP, TSH #### [facility] [address] [place] [address] Dr. Reema Barnettmphocytes/100 WBC (Bld)28.5 %Ldhwth49.5-60.0The [facility] CenterComment on above:Performed By: #### BMP, TSH #### [facility] [address] [place] [address] Dr. Reema Puckett DIFF REQNONormalThe [facility] CenterComment on above: Performed By: #### BMP, TSH #### [facility] [address] [place] [address] Dr. Reema Vincent (RBC) [Entitic mass]30.3 laWcpkhu72.7-34.0The [facility] CenterComment on above:Performed By: #### BMP, TSH #### [facility] [address] [place] [address] Dr. Reema Vincent (RBC) [Mass/Vol]34.8 g/eFNbcyuf74.9-35.2The [facility] CenterComment on above:Performed By: #### BMP, TSH #### [facility] [address] [place] [address] Dr. Reema Vincent (RBC) [Entitic vol]87.0 pRRazcke34.0-99.0The [facility] CenterComment on above:Performed By: #### BMP, TSH #### [facility] [address] [place] [address] Dr. Reema Weller #0.8 103/ulNormal0.3-0.8The [facility] CenterComment on above:Performed By: #### BMP, TSH #### [facility] [address] [place] [address] Dr. Reema Galiciaocytes/100 WBC (Bld)8.2 %Normal1.7-12.0The [facility] Comment on above:Performed By: #### BMP, TSH #### [facility] [address] [place] [address] Dr. Reema Bradshaw #5.9 103/ulNormal1.4-6.5The [facility] on above:Performed By: #### BMP, TSH #### [facility] [address] [place] [address] Dr. Reema Oneilutrophils/100 WBC (Bld)61.9 %Gymxat97.0-75.0The [facility] on above:Performed By: #### BMP, TSH #### [facility] [address] [place] [address] Dr. Reema Hodgsonlet mean volume (Bld) [Entitic vol]10.2 fLNormal9.5-13.5The [facility] on above:Performed By: #### BMP, TSH #### [facility] [address] [place] [address] Dr. Reema MirelesPLT382 103/psSazvfh066-640Gkm [facility] on above: Performed By: #### BMP, TSH #### [facility] [address] [place] [address] Dr. Reema MirelesRBC4.32 106/ulNormal4.20-5.40The [facility] on above:Performed By: #### BMP, TSH #### [facility] [address] [place] [address] Dr. Reema MirelesWBC9.6 103/ulNormal4.0-11.0The [facility] on above: Performed By: #### BMP, TSH #### [facility] [address] [place] [address] Dr. Reema Monae 38-51-8140PHQ [Mass/Vol]mg/LNormal<=1.0The [facility] on above:Performed By: #### BMP, TSH #### [facility] [address] [place] [address] Dr. Reema Griffin URINE PROFILEon 38-78-9201Ouhpfqhsj Ql (U)NegativeNormal NEGATIVEThe [facility] on above:Performed By: #### BMP, TSH #### [facility] [address] [address] [address] Reema Ortizarity (U)CLEARNormalCLEARMercy Health St. Anne HospitalComment on above: Performed By: #### BMP, TSH #### [facility] [address] [address] [address] Reema Jiménez (U)LT. YELLOWNormalYELLOWMercy Health St. Anne HospitalComment on above:Performed By: #### BMP, TSH #### [facility] [address] [address] [address] Reema Rivas micrscopic examination will be performed if indicated. NormalMercy Health St. Anne HospitalComment on above:Performed By: #### BMP, TSH #### [facility] [address] [address] [address] Reema MirelesGlucose Ql (U)NegativeNormalNEGATIVEMercy Health St. Anne HospitalComment on above:Performed By: #### BMP, TSH #### [facility] [address] [address] [address] Reema MirelesHemoglobin Ql (U)NegativeNormalNEGATIVESelect Medical [facility] [place] on above:Performed By: #### BMP, TSH #### [facility] [address] [address] [address] Reema MirelesKetones Ql (U)NegativeNormalNEGATIVEMercy Health St. Anne HospitalComment on above:Performed By: #### BMP, TSH #### [facility] [address] [address] [address] Reema MirelesLEUKOCYTESNegativeNormalNEGATIVEMercy Health St. Anne HospitalComment on above:Performed By: #### BMP, TSH #### [facility] [address] [address] [address] Reema MirelesNitrite Ql (U)NegativeNormalNEGATIVEMercy Health St. Anne HospitalComment on above:Performed By: #### BMP, TSH #### [facility] [address] [address] [address] Reema MirelespH (U)5.5 [pH]Normal5-9[facility] Anne HospitalComment on above: Performed By: #### BMP, TSH #### [facility] [address] [place] [address] Dr. Reema MirelesSPEC GRAVITY<=1.623Jwecqesp6.005-<=1.025[facility] Comment on above:Performed By: #### BMP, TSH #### [facility] [address] [place] [address] Dr. Reema Rodriguez PROTEINNegativeNormalNEGATIVE/ TRACEThe [facility] Comment on above:Performed By: #### BMP, TSH #### [facility] [address] [place] [address] Dr. Reema Ward MICRO INDNOT INDICATEDMercy Health Kings Mills HospitalComment on above:Performed By: #### BMP, TSH #### [facility] [address] [place] [address] Dr. Reema Wingbilinogen Qn (U)0.2 {Renny'U}/dLNormal0.2 - 1.0The [facility] CenterComment on above:Performed By: #### BMP, TSH #### [facility] [address] [place] [address] Dr. Reema MirelesLIPASEon 55-88-0219Jedutg [Catalytic activity/Vol]71.0 U/L Critically low73.0-393.0The [facility] CenterComment on above:Performed By: #### BMP, TSH #### [facility] [address] [place] [address] Dr. Reema MirelesPREGNANCY URon 43-59-2147JFWRTXQZU, QUALNegativeNormalNEGATIVEThe [facility] CenterComment on above:Performed By: #### CVDTBH #### [facility] [address] [place] [address] Dr. Reema Chung 14(COMP METB)on 84-18-3794Osazdek [Mass/Vol]4.3 g/dLNormal 3.4-5.0The [facility] CenterComment on above:Performed By: #### BMP, TSH #### [facility] [address] [address] [address] Reema MirelesAlbumin/Globulin [Mass ratio]1.2 {ratio}NormalThe [facility] CenterComment on above:Performed By: #### BMP, TSH #### [facility] [address] [address] [address] Reema LinP [Catalytic activity/Vol]70 U/FWirwke19-143Rep [facility] CenterComment on above:Performed By: #### BMP, TSH #### [facility] [address] [address] [address] Reema LinT [Catalytic activity/Vol]16 U/UBxujiu05-00Fch [facility] CenterComment on above:Performed By: #### BMP, TSH #### [facility] [address] [place] [address] Dr. Reema Tonyon gap [Moles/Vol]10.5 mmol/LNormalThe [facility] Comment on above:Performed By: #### BMP, TSH #### [facility] [address] [place] [address] Dr. Reema MirelesAST [Catalytic activity/Vol]8 U/LCritically kgj03-75Rqe [facility] CenterComment on above:Performed By: #### BMP, TSH #### [facility] [address] [place] [address] Dr. Reema MirelesBilirubin [Mass/Vol]0.3 mg/dLNormal0.2-1.0The [facility] Comment on above:Performed By: #### BMP, TSH #### [facility] [address] [place] [address] Dr. Reema MirelesCalcium [Mass/Vol]9.0 mg/dLNormal8.5-10.1The [facility] Comment on above:Performed By: #### BMP, TSH #### [facility] [address] [place] [address] Dr. Reema MirelesChloride [Moles/Vol]104 mmol/DNtemzy14-828Erg [facility] Comment on above:Performed By: #### BMP, TSH #### [facility] [address] [address] [address] Reema MirelesCO2 [Moles/Vol]26.5 mmol/DCifzzb99.0-32.0The [facility] Comment on above:Performed By: #### BMP, TSH #### [facility] [address] [address] [address] Reema MirelesCreatinine [Mass/Vol]0.79 mg/dLNormal0.55-1.02The [facility] CenterComment on above:Performed By: #### BMP, TSH #### [facility] [address] [address] [address] Reema CarpenterGFR-AF CENTRAL AFRICAN>60Normal>=60The [facility] CenterComment on above:Performed By: #### BMP, TSH #### [facility] [address] [place] [address] Dr. Reema Duenas-NON AF CENTRAL AFRICAN>60Normal>=60The [facility] CenterComment on above:Performed By: #### BMP, TSH #### [facility] [address] [place] [address] Dr. Reema MirelesGlobulin (S) [Mass/Vol]3.5 g/dLNormalThe [facility] CenterComment on above:Performed By: #### BMP, TSH #### [facility] [address] [place] [address] Dr. Reema MirelesGlucose [Mass/Vol]106 mg/pUWqdaas65-774Bcr [facility] Comment on above:Performed By: #### BMP, TSH #### [facility] [address] [place] [address] Dr. Reema MirelesPotassium [Moles/Vol]3.0 mmol/LCritically low3.5-5.1The [facility] CenterComment on above:Performed By: #### BMP, TSH #### [facility] [address] [place] [address] Dr. Reema MirelesProtein [Mass/Vol]7.8 g/dLNormal6.4-8.2The [facility] Comment on above:Performed By: #### BMP, TSH #### [facility] [address] [place] [address] Dr. Reema MirelesSodium [Moles/Vol]138 mmol/GUuquwk989-706RskMercy Health St. [facility] Comment on above:Performed By: #### BMP, TSH #### [facility] [address] [place] [address] Dr. Reema Britt nitrogen [Mass/Vol]8.0 mg/dLNormal7.0-18.0The [facility] CenterComment on above:Performed By: #### BMP, TSH #### [facility] [address] [place] [address] Dr. Reema Britt nitrogen/Creatinine [Mass ratio]10.1 mg/mgNoKettering Health DaytonComment on above:Performed By: #### BMP, TSH #### [facility] [address] [place] [address] Dr. Reema Walters 59-04-0801GDL Coag (PPP) [Relative time]1.00 {INR} NormalThe [facility] CenterComment on above:Performed By: #### PT, PTT #### [facility] [address] [place] [address] Dr. Reema Painter [facility]ITALSEE BELOWMercy Health Kings Mills HospitalComment on above:Result Comment: DESIRED INR: 2.0 - 3.0 CONDITIONS NOT LISTED BELOW 2.5 - 3.5 FOR PROSTHETIC HEART VALVE REPLACEMENT 2.5 - 3.5 RECURRENT THROMBOSIS Performed By: #### PT, PTT #### [facility] [address] [place] [address] Dr. Reema Gordillo Coag (PPP) [Time]10.8 sNormal9.0-11.6The [facility] Comment on above:Performed By: #### PT, PTT #### [facility] [address] [place] [address] Dr. Reema Rueda 52-05-9628xAOX Coag (Bld) [Time]30.8 pDvaszq17.3-36.2[facility] Anne HospitalComment on above:Performed By: #### PT, PTT #### [facility] [address] [address] [address] Reema Vieyra RATE WESTERGRENon 93-28-7101GEH RATE10 mm/hrNormal<=20The [facility] CenterComment on above:Performed By: #### BMP, TSH #### [facility] [address] [address] [address] Reema Kruse 98-31-2631MOF2.313 uIU/mLNormal0.358-3.740The [facility] CenterComment on above:Performed By: #### BMP, TSH #### [facility] [address] [place] [address] Dr. Reema Boucher Instructionson 07-45-9288Vfiklwgdu Instructions [id number]#1.00CD:127[facility] HospitalalSalem City HospitalComment on above:Other Comment: wrong patientSTOOL CULTUREon 04-20-2022 Campylobacter CultureFinal reportNoKettering Health DaytonComment on above: Performed By: #### BMP, TSH #### [facility] [address] [place] [address] Dr. Reema ordoñez Shiga Toxin EIANegativeNormalNegativeThe [facility] Comment on above:Performed By: #### BMP, TSH #### [facility] [address] [place] [address] Dr. Reema Villarreal 1CommentNoKettering Health DaytonComment on above:Result Comment: No Salmonella or Shigella recovered.Performed By: #### BMP, TSH #### [facility] [address] [place] [address] Dr. Reema Villarreal Comment: No Campylobacter species isolated. Salmonella/Shigella ScreenFinal reportMercy Health Kings Mills HospitalComment on above:Performed By: #### BMP, TSH #### [facility] [address] [place] [address] Dr. Reema Rodriguez Summary.on [id number] Summary. CD:[id number] [file] bGxh (more content not included)...NormalFisher Saint Luke InstituteC AUTO DIFFon [id number] #0.1 103/ulNormal0.0-0.1The [facility] Va Medical CenterComment on above:Performed By: #### CVDTBH #### [facility] [address] [address] [address] Reema MirelesBasophils/100 WBC (Bld)0.6 %Normal0.2-2.0The [facility] Comment on above:Performed By: #### CVDTBH #### [facility] [address] [place] [address] Dr. Reema Lowe #0.0 103/ulNormal0.0-0.7The [facility] Medical CenterComment on above: Performed By: #### CVDTBH #### [facility] [address] [address] [address] Reema Carpenterosinophils/100 WBC (Bld)0.2 %Critically low0.9-7.0The [facility] Medical CenterComment on above:Performed By: #### CVDTBH #### [facility] [address] [address] [address] Reema Carpenterrythrocyte distribution width (RBC) [Ratio]11.4 %Ysqmsb53.0-15.0 The [facility] Medical CenterComment on above:Performed By: #### CVDTBH #### [facility] [address] [address] [address] Reema MirelesHematocrit (Bld) [Volume fraction]38.3 %Kgrnnl11.0-48.0The [facility] Medical CenterComment on above:Performed By: #### CVDTBH #### [facility] [address] [place] [address] Dr. Reema MirelesHemoglobin (Bld) [Mass/Vol]13.4 g/qYPmnssf74.0-16.0The [facility] CenterComment on above:Performed By: #### CVDTBH #### [facility] [address] [place] [address] Dr. Reema Rocha #0.01 10e3/ulNormal0.00-0.03The [facility] CenterComment on above:Performed By: #### CVDTBH #### [facility] [address] [place] [address] Dr. Reema Rocha %0.1 %Normal0.0-0.5The [facility] CenterComment on above: Performed By: #### CVDTBH #### [facility] [address] [place] [address] Dr. Reema Zayas #1.8 103/ulNormal1.2-3.8The [facility] CenterComment on above:Performed By: #### CVDTBH #### [facility] [address] [place] [address] Dr. Reema Kimhocytes/100 WBC (Bld)22.2 %Lqclya56.5-60.0The [facility] Medical CenterComment on above:Performed By: #### CVDTBH #### [facility] [address] [place] [address] Dr. Reema Puckett DIFF REQNONormalThe [facility] CenterComment on above: Performed By: #### CVDTBH #### [facility] [address] [place] [address] Dr. Reema Burkett (RBC) [Entitic mass]30.6 uwNlrazi60.7-34.0The [facility] CenterComment on above:Performed By: #### CVDTBH #### [facility] [address] [place] [address] Dr. Reema Vincent (RBC) [Mass/Vol]35.0 g/uYKtzaai94.9-35.2The [facility] CenterComment on above:Performed By: #### CVDTBH #### [facility] [address] [place] [address] Dr. Yilan ChangMCV (RBC) [Entitic vol]87.4 fOWepffq48.0-99.0The [facility] CenterComment on above:Performed By: #### CVDTBH #### [facility] [address] [place] [address] Dr. Reema Weller #0.7 103/ulNormal0.3-0.8The [facility] CenterComment on above:Performed By: #### CVDTBH #### [facility] [address] [place] [address] Dr. Reema Galiciaocytes/100 WBC (Bld)8.2 %Normal1.7-12.0The [facility] Comment on above:Performed By: #### CVDTBH #### [facility] [address] [place] [address] Dr. Reema Bradshaw #5.5 103/ulNormal1.4-6.5The [facility] CenterComment on above:Performed By: #### CVDTBH #### [facility] [address] [place] [address] Dr. Reema Oneilutrophils/100 WBC (Bld)68.7 %[place]26.0-75.0The [facility] CenterComment on above:Performed By: #### CVDTBH #### [facility] [address] [place] [address] Dr. Reema Hodgsonlet mean volume (Bld) [Entitic vol]10.1 fLNormal9.5-13.5The [facility] CenterComment on above:Performed By: #### CVDTBH #### [facility] [address] [place] [address] Dr. Reema WatkinsT404 103/rbMhqjah792-531Ldv [facility] CenterComment on above: Performed By: #### CVDTBH #### [facility] [address] [place] [address] Dr. Reema MirelesRBC4.38 106/ulNormal4.20-5.40The [facility] CenterComment on above:Performed By: #### CVDTBH #### [facility] [address] [place], [place] [address] Dr. Reema MirelesWBC8.0 103/ulNormal4.0-11.0The [facility] CenterComment on above: Performed By: #### CVDTBH #### [facility] [address] [place], [place] [address] Dr. Reema MirelesCT HEAD WO CONon [id number] HEAD WO CONEXAMINATION: CT HEAD WO CON [...] Electronically authenticated by: AURELIA CARLOS Date: 2022-04-13 16:29NoKettering Health DaytonDischarge Instructionson [id number] Instructions [id number]#[id number]:127NormalFisher [facility]burg CenterED Note-Physicianon [id number] Note-PhysicianBasic Information Time Seen: Lata Hardy M.D. 04/12/2022 19:56 Chief Complaint Pt. presents to the ed with c/o headache and vertigo since thursday. Pt. was seen at [facility] and started on prednisone. pt. stopped taking [...] The patient states she was seen at [facility] discharged home. She went to urgent [...] neurological deficit. She has been seen at [facility] and started on prednisone. Possible [...] ADRYAN MARIE In 3 days 04/15/2022 EDT [facility] Business (1) Additional Instructions: Return to [...] data available. Diagnostic Results No qualifying data available.Wayne HospitalComment on above: Result Comment: Electronically Signed By: Antony Villa, Lata Baxter\.br\Date and Time Signed: 04/13/2204:56 EDTER URINE PROFILEon 96-31-2922Uxdbiagzs Ql (U) NegativeNormalNEGATIVEMercy Health St. Anne HospitalComment on above:Performed By: #### PREGU, ERUR #### [facility] [address] [place] [address] Dr. Reema Guzmán (U)CLEARNormalCLEARMercy Health St. Anne HospitalComment on above: Performed By: #### PREGU, ERUR #### [facility] [address] [address] [address] Reema Jiménez (U)LT. YELLOWNormalYELLOWMercy Health St. Anne HospitalComment on above:Performed By: #### PREGU, ERUR #### [facility] [address] [address] [address] Reema Rivas micrscopic examination will be performed if indicated. NormalMercy Health St. Anne HospitalComment on above:Performed By: #### PREGU, ERUR #### [facility] [address] [place] [address] Dr. Reema Guerreroose Ql (U)NegativeNormalNEGATIVEMercy Health St. Anne HospitalComment on above:Performed By: #### PREGU, ERUR #### [facility] [address] [place] [address] Dr. Reema MirelesHemoglobin Ql (U)NegativeNormalNEGATIVEMercy Health St. Anne Hospital Comment on above:Performed By: #### PREGU, ERUR #### [facility] [address] [place] [address] Dr. Reema MirelesKetones Ql (U)NegativeNormalNEGATIVEThe [facility] CenterComment on above:Performed By: #### PREGU, ERUR #### [facility] [address] [place] [address] Dr. Reema MirelesLEUKOCYTESNegativeNormalNEGATIVEMercy Health St. Anne HospitalComment on above:Performed By: #### PREGU, ERUR #### [facility] [address] [place] [address] Dr. Reema MirelesNitrite Ql (U)NegativeNormalNEGATIVEMercy Health St. Anne HospitalComment on above:Performed By: #### PREGU, ERUR #### [facility] [address] [place] [address] Dr. Reema MirelespH (U)6.5 [pH]Normal5-9Mercy Health St. Anne HospitalComment on above: Performed By: #### PREGU, ERUR #### [facility] [address] [place] [address] Dr. Reema MirelesSPEC GRAVITY1.423Zyxlmd1.005-<=1.025The [facility] Medical CenterComment on above:Performed By: #### PREGU, ERUR #### [facility] [address] [place] [address] Dr. Reema Rodriguez PROTEINNegativeNormalNEGATIVE/ TRACEThe [facility] Comment on above:Performed By: #### PREGU, ERUR #### [facility] [address] [place] [address] Dr. Reema Ward MICRO INDNOT INDICATEDNoalThSelect Medical Specialty Hospital - AkronComment on above:Performed By: #### PREGU, ERUR #### [facility] [address] [place] [address] Dr. Reema Jenkinsgen Qn (U)0.2 {Renny'U}/dLNormal0.2 - 1.0The [facility] CenterComment on above:Performed By: #### PREGU, ERUR #### [facility] [address] [address] [address] Reema MirelesPREGNANCY URon 29-46-4666ADHIVFYWA, QUALNegativeNormalNEGATIVEThe [facility] CenterComment on above:Performed By: #### PREGU, ERUR #### [facility] [address] [address] [address] Reema MirelesPROF CHEM 8 (BAS METB)on 63-48-1049Hyott gap [Moles/Vol]14.0 mmol/LNormalThe [facility] CenterComment on above:Performed By: #### BMP, TSH #### [facility] [address] [address] [address] Reema MirelesCalcium [Mass/Vol]9.2 mg/dLNormal8.5-10.1The [facility] Comment on above:Performed By: #### BMP, TSH #### [facility] [address] [address] [address] Reema MirelesChloride [Moles/Vol]102 mmol/ZDgnmwn67-205Qig [facility] Comment on above:Performed By: #### BMP, TSH #### [facility] [address] [address] [address] Reema MirelesCO2 [Moles/Vol]26.3 mmol/KYfaqkc40.0-32.0The [facility] Comment on above:Performed By: #### BMP, TSH #### [facility] [address] [address] [address] Reema MirelesCreatinine [Mass/Vol]0.65 mg/dLNormal0.55-1.02The [facility] CenterComment on above:Performed By: #### BMP, TSH #### [facility] [address] [address] [address] Benavidez ChangEGFR-AF CENTRAL AFRICAN>60Normal>=60The [facility] CenterComment on above:Performed By: #### BMP, TSH #### [facility] [address] [address] [address] Reema CarpenterGFR-NON AF CENTRAL AFRICAN>60Normal>=60The [facility] CenterComment on above:Performed By: #### BMP, TSH #### [facility] [address] [address] [address] Reema MirelesGlucose [Mass/Vol]92 mg/eRIoqraw94-216Toj [facility] Comment on above:Performed By: #### BMP, TSH #### [facility] [address] [place] [address] Dr. Reema MirelesPotassium [Moles/Vol]3.3 mmol/LCritically low3.5-5.1Mercy Health St. Anne HospitalComment on above:Performed By: #### BMP, TSH #### [facility] [address] [address] [address] Reema Melissadium [Moles/Vol]139 mmol/IKgmzlr548-997Eqg [facility] Comment on above:Performed By: #### BMP, TSH #### [facility] [address] [address] [address] Reema MirelesUrea nitrogen [Mass/Vol]8.0 mg/dLNormal7.0-18.0The [facility] CenterComment on above:Performed By: #### BMP, TSH #### [facility] [address] [place] [address] Dr. Reema Britt nitrogen/Creatinine [Mass ratio]12.3 mg/mgNormalThe [facility] CenterComment on above:Performed By: #### BMP, TSH #### [facility] [address] [place] [address] Dr. Reema Kruse 34-34-9464AGT9.293 uIU/mLNormal0.358-3.740Mercy Health St. Anne HospitalComment on above:Performed By: #### BMP, TSH #### [facility] [address] [place] [address] Dr. Reema Mcfadden for Treatmenton 39-91-9027Nihufah for Treatment [id number]:127NormalOctavio [facility] Clinical Summaryon [id number] Clinical Summary [address] [id number] ED Clinical Summary Person Information Name: JUANPABLO CHAPARRO Florinda/[facility] Age: 21 Years : 2000 Sex: Female Language: Tamazight PCP: ADRYAN MARIE MD Marital Status: Single Phone: [phone] Visit Id: Visit Reason: Vertigo - recurrent; [...] 04/12/2022 21:07:38 04/12/2022 21:07:38 04/12/2022 21:07:38 ADDRESS: [address] [place] [phone] PHYS DOC NOTES: MEDICAL INFORMATION: Prescriptions Given: PATIENT EDUCATION INFORMATION: Instructions: General Headache Without Cause; Vertigo Follow up: With: Address: When: ADRYAN MARIE [address] [place], [place] [id number] Business (1) In 3 days 04/15/2022 Comments: Return to the emergency room if her headache gets worse, vertigo becomes persistent or any new symptoms DIAGNOSIS: 1:Vertigo; 2:HeadacheNormalFisher Shawano Medical CenterED Patient Education Note on [id number] Patient Education NoteENT Vertigo Vertigo is the [...] you feel dizzy. General instructions ? Take rbxf-kiy-qxeltqt and prescription medicines only as told by [...] Reviewed: 08/08/2019 Elsevier Patient Education ? 2019 [facility] Neurology General Headache Without Cause A [...] with your condition: Managing pain ? Take vsaq-urb-oxiwfjf and prescription medicines only as told by [...] oz bottle of beer (more content not included)...[facility] Patient Summaryon [id number] Patient Summary [address] [place] [id number] Patient Discharge Instructions Person Information Name: JUANPABLO CHAPARRO Age: 21 Years Arrival Date: 04/12/2022 19:22:40 Discharge Diagnosis: 1:Vertigo; 2:Headache Primary Care Physician: ADRYAN MARIE MD Provider Information Primary Provider: Lata Hardy M.D. Advanced Bead Builder:None The exam and treatment you received in the Emergency Department were for an urgent problem and are not intended as complete care. It is important that you follow up with a doctor, nurse practitioner,or physician?s assistant in nursing for ongoing care. If your symptoms become worse or you do not improve as expected and you are unable to reach your usual health care provider, you should return to the Emergency Department. We are available 24 hours a day. JUANPABLO CHAPARRO has been given the following list of patient education materials, prescriptionsand follow-up instructions: Follow-up Instructions: With: Address: When: ADRYAN MARIE [address] [place] [address] [facility] ([employer] In 3 days 04/15/2022 Comments: Return to [...] opioids can be used to help relieve pfgalxhi-nx-flfibk pain and are often prescribed following a [...] your community drug take- back program or Shuropody mail-back program, or flush them down the toilet, following guidance from the Food and Drug Administration (www.fda.gov/Drugs/ResourcesForYou). ? Visit www.cdc.gov/drugoverdose to learn about the risks of opioids abuse and overdose. ? If you believe you may be struggling with addiction, tel (more content not included)...[facility] AUTO DIFFon [id number] #0.1 103/ulNormal0.0-0.1The [facility] CenterComment on above:Performed By: #### BMP, TSH #### [facility] [address] [place] [address] Dr. Reema MirelesBasophils/100 WBC (Bld)0.5 %Normal0.2-2.0[facility] Comment on above:Performed By: #### BMP, TSH #### [facility] [address] [place] [address] Dr. Reema Lowe #0.1 103/ulNormal0.0-0.7The [facility] CenterComment on above: Performed By: #### BMP, TSH #### [facility] [address] [place] [address] Dr. Reema Carpenterosinophils/100 WBC (Bld)1.0 %Normal0.9-7.0The [facility] Comment on above:Performed By: #### BMP, TSH #### [facility] [address] [place] [address] Dr. Reema Carpenterrythrocyte distribution width (RBC) [Ratio]11.7 %Uijsvi57.0-15.0 The [facility] CenterComment on above:Performed By: #### BMP, TSH #### [facility] [address] [place] [address] Dr. Reema MirelesHematocrit (Bld) [Volume fraction]37.2 %Aiyyqs29.0-48.0[facility] Health St. Anne HospitalComment on above:Performed By: #### BMP, TSH #### [facility] [address] [place] [address] Dr. Reema MirelesHemoglobin (Bld) [Mass/Vol]12.8 g/uLOsmqlp63.0-16.0The [facility] CenterComment on above:Performed By: #### BMP, TSH #### [facility] [address] [place] [address] Dr. Reema Rocha #0.02 10e3/ulNormal0.00-0.03The [facility] CenterComment on above:Performed By: #### BMP, TSH #### [facility] [address] [place] [address] Dr. Reema Rocha %0.2 %Normal0.0-0.5The [facility] CenterComment on above: Performed By: #### BMP, TSH #### [facility] [address] [place] [address] Dr. Reema Zayas #1.8 103/ulNormal1.2-3.8The [facility] Medical CenterComment on above:Performed By: #### BMP, TSH #### [facility] [address] [place] [address] Dr. Reema Kimhocytes/100 WBC (Bld)19.0 %Critically low20.5-60.0The [facility] Medical CenterComment on above:Performed By: #### BMP, TSH #### [facility] [address] [place] [address] Dr. Reema StephensUAL DIFF REQNONormalThe [facility] CenterComment on above: Performed By: #### BMP, TSH #### [facility] [address] [place] [address] Dr. Reema Vincent (RBC) [Entitic mass]30.4 dpXzudto21.7-34.0The [facility] Medical CenterComment on above:Performed By: #### BMP, TSH #### [facility] [address] [place] [address] Dr. Reema Vincent (RBC) [Mass/Vol]34.4 g/dTVpkbjg80.9-35.2The [facility] CenterComcorewell health william [facility] on above:Performed By: #### BMP, TSH #### [facility] [address] [place] [address] Dr. Reema Vincent (RBC) [Entitic vol]88.4 fQDbaiky72.0-99.0The [facility] Medical CenterComment on above:Performed By: #### BMP, TSH #### [facility] [address] [place] [address] Dr. Reema Weller #0.7 103/ulNormal0.3-0.8The [facility] Medical CenterComment on above:Performed By: #### BMP, TSH #### [facility] [address] [place] [address] Dr. Reema Galiciaocytes/100 WBC (Bld)6.8 %Normal1.7-12.0The [facility] Comment on above:Performed By: #### BMP, TSH #### [facility] [address] [place] [address] Dr. Reema OneilUT #7.0 103/ulCritically high1.4-6.5The [facility] Comment on above:Performed By: #### BMP, TSH #### [facility] [address] [place] [address] Dr. Reema Oneilutrophils/100 WBC (Bld)72.5 %Hhfmxt38.0-75.0The [facility] Medical CenterComment on above:Performed By: #### BMP, TSH #### [facility] [address] [place] [address] Dr. Reema MirelesPlatelet mean volume (Bld) [Entitic vol]10.3 fLNormal9.5-13.5The [facility] CenterComment on above:Performed By: #### BMP, TSH #### [facility] [address] [place] [address] Dr. Reema MirelesPLT358 103/wdLkzreb107-349Wkv [facility] CenterComment on above: Performed By: #### BMP, TSH #### [facility] [address] [place] [address] Dr. Reema MirelesRBC4.21 106/ulNormal4.20-5.40The [facility] CenterComment on above:Performed By: #### BMP, TSH #### [facility] [address] [place] [address] Dr. Reema MirelesWBC9.7 103/ulNormal4.0-11.0The [facility] CenterComment on above: Performed By: #### BMP, TSH #### [facility] [address] [place] [address] Dr. Reema Quijano BLOODon 85-82-5844Futturdsywr examination of blood, cultureCulture Observations: NO GROWTH AT 5 DAYS.NormalSelect Medical Specialty Hospital - Youngstown HospitalComment on above:Performed By: #### BMP, TSH #### [facility] [address] [place] [address] Dr. Reema Griffin URINE PROFILEon 43-86-7978Neenxrklz Ql (U)NegativeNormal NEGATIVESelect Medical Specialty Hospital - [place] HospitalComment on above:Performed By: #### BMP, TSH #### [facility] [address] [place] [address] Dr. Reema MirelesClarity (U)CLEARNormalCLEARSelect Medical Specialty Hospital - [place] HospitalComment on above: Performed By: #### BMP, TSH #### [facility] [address] [place] [address] Dr. Reema Jiménez (U)LT. YELLOWNormalYELLOWMercy Health St. Anne HospitalComment on above:Performed By: #### BMP, TSH #### [facility] [address] [place] [address] Dr. Reema Rivas micrscopic examination will be performed if indicated. NormalSelect Medical Specialty Hospital - [place] HospitalComment on above:Performed By: #### BMP, TSH #### [facility] [address] [place] [address] Dr. Reema MirelesGlucose Ql (U)NegativeNormalNEGATIVESelect Medical Specialty Hospital - [place] HospitalComment on above:Performed By: #### BMP, TSH #### [facility] [address] [place] [address] Dr. Reema MirelesHemoglobin Ql (U)TRACE-INTACTAbnormalNEGATIVESelect Medical Specialty Hospital - [place] HospitalComment on above:Performed By: #### BMP, TSH #### [facility] [address] [place] [address] Dr. Reema MirelesKetones Ql (U)NegativeNormalNEGATIVESelect Medical Specialty Hospital - [place] HospitalComment on above:Performed By: #### BMP, TSH #### [facility] [address] [place] [address] Dr. Reema MirelesLEUKOCYTESNegativeNormalNEGATIVESelect Medical Specialty Hospital - [place] HospitalComment on above:Performed By: #### BMP, TSH #### [facility] [address] [address] [address] Reema Calhoun Ql (U)NegativeNormalNEGATIVEThe [facility] CenterComment on above:Performed By: #### BMP, TSH #### [facility] [address] [address] [address] Reema MirelespH (U)5.5 [pH]Normal5-9The [facility] CenterComment on above: Performed By: #### BMP, TSH #### [facility] [address] [place] [address] Dr. Reema MirelesSPEC GRAVITY<=1.763Dadejsjz2.005-<=1.025The [facility] Comment on above:Performed By: #### BMP, TSH #### [facility] [address] [place] [address] Dr. Reema Rodriguez PROTEINNegativeNormalNEGATIVE/ TRACEThe [facility] Comment on above:Performed By: #### BMP, TSH #### [facility] [address] [place] [address] Dr. Reema Ward MICRO INDINDICATEDNormalThSelect Medical Specialty Hospital - AkronComment on above: Performed By: #### BMP, TSH #### [facility] [address] [place] [address] Dr. Reema Wingbilinogen Qn (U)0.2 {Renny'U}/dLNormal0.2 - 1.0The [facility] CenterComment on above:Performed By: #### BMP, TSH #### [facility] [address] [place] [address] Dr. Reema MirelesLACTATE/LACTIC ACIDon 04-60-0219Kvuoyek [Moles/Vol]2.2 mmol/L Critically high0.4-1.9The [facility] CenterComment on above:Performed By: #### BMP, TSH #### [facility] [address] [place] [address] Dr. Reema MirelesPREGNANCY URon 88-44-0826DZPTINLTP, QUALNegativeNormalNEGATIVEThe Bk HospitalComment on above:Performed By: #### BMP, TSH #### [facility] [address] [address] [address] Reema MirelesPROF 14(COMP METB)on 80-57-9883Cdgxqfs [Mass/Vol]4.5 g/dLNormal 3.4-5.0The [facility] CenterComment on above:Performed By: #### CMP #### [facility] [address] [place] [address] Dr. Reema MirelesAlbumin/Globulin [Mass ratio]1.3 {ratio}NormalThe [facility] CenterComment on above:Performed By: #### CMP #### [facility] [address] [place] [address] Dr. Reema Porter [Catalytic activity/Vol]83 U/PEushza68-131Lxn [facility] CenterComment on above:Performed By: #### CMP #### [facility] [address] [place] [address] Dr. Reema LinT [Catalytic activity/Vol]26 U/DEmiwge86-87Rwd [facility] CenterComment on above:Performed By: #### CMP #### [facility] [address] [place] [address] Dr. Reema Tan gap [Moles/Vol]14.9 mmol/LNormalThe [facility] Comment on above:Performed By: #### CMP #### [facility] [address] [place] [address] Dr. Reema MirelesAST [Catalytic activity/Vol]12 U/LCritically ehq43-55Zmz [facility] CenterComment on above:Performed By: #### CMP #### [facility] [address] [place] [address] Dr. Reema MirelesBilirubin [Mass/Vol]0.3 mg/dLNormal0.2-1.0The [facility] Comment on above:Performed By: #### CMP #### [facility] [address] [place] [address] Dr. Reema MirelesCalcium [Mass/Vol]9.6 mg/dLNormal8.5-10.1[facility] Comment on above:Performed By: #### CMP #### [facility] [address] [address] [address] Reema MirelesChloride [Moles/Vol]103 mmol/VOczduf98-454Erf [facility] Comment on above:Performed By: #### CMP #### [facility] [address] [address] [address] Reema MirelesCO2 [Moles/Vol]24.4 mmol/RIdzgsa17.0-32.0The [facility] Comment on above:Performed By: #### CMP #### [facility] [address] [address] [address] Reema MirelesCreatinine [Mass/Vol]0.87 mg/dLNormal0.55-1.02The [facility] CenterComment on above:Performed By: #### CMP #### [facility] [address] [address] [address] Reema CarpenterGFR-AF CENTRAL AFRICAN>60Normal>=60The [facility] CenterComment on above:Performed By: #### CMP #### [facility] [address] [address] [address] Reema CarpenterGFR-NON AF CENTRAL AFRICAN>60Normal>=60The [facility] CenterComment on above:Performed By: #### CMP #### [facility] [address] [address] [address] Reema MirelesGlobulin (S) [Mass/Vol]3.5 g/dLNormalThe [facility] CenterComment on above:Performed By: #### CMP #### [facility] [address] [address] [address] Reema MirelesGlucose [Mass/Vol]109 mg/dLCritically mrfr30-491Epv [facility] CenterComment on above:Performed By: #### CMP #### [facility] [address] [address] [address] Reema MirelesPotassium [Moles/Vol]3.3 mmol/LCritically low3.5-5.1The [facility] CenterComment on above:Performed By: #### CMP #### [facility] [address] [address] [address] Reema MirelesProtein [Mass/Vol]8.0 g/dLNormal6.4-8.2The [facility] Comment on above:Performed By: #### CMP #### [facility] [address] [address] [address] Reema MirelesSodium [Moles/Vol]139 mmol/YAqcnxu539-808Kzf [facility] Comment on above:Performed By: #### CMP #### [facility] [address] [address] [address] Reema MirelesUrea nitrogen [Mass/Vol]9.0 mg/dLNormal7.0-18.0The [facility] CenterComment on above:Performed By: #### CMP #### [facility] [address] [address] [address] Reema Britt nitrogen/Creatinine [Mass ratio]10.3 mg/mgNoMiami Valley Hospitale [facility] CenterComment on above:Performed By: #### CMP #### [facility] [address] [address] [address] Reema Grant MICROSCOPIC ONLYon 87-30-0824QWDENMQUASXG SEENNormalNONE SEENMercy Health St. Anne HospitalComment on above:Performed By: #### BMP, TSH #### [facility] [address] [place] [address] Dr. Reema Arthur identified Cx Nom (U)NOT INDICATEDNoKettering Health DaytonComment on above:Performed By: #### BMP, TSH #### [facility] [address] [address] [address] Reema MirelesCASTNONE SEENNormalNONE SEENMercy Health St. Anne HospitalComment on above:Performed By: #### BMP, TSH #### [facility] [address] [address] [address] Reema Paizystals LM Nom (Urine sed)NONE SEENNoalNONE SEENThe [facility] CenterComment on above:Performed By: #### BMP, TSH #### [facility] [address] [address] [address] Reema Carpenterpithelial cells LM Ql (Urine sed)RARENormalNONE SEEN /RAREThe [facility] CenterComment on above:Performed By: #### BMP, TSH #### [facility] [address] [place] [address] Dr. Reema MirleesMUCOUSNONE SEENNormalNONE SEENThe [facility] CenterComcorewell health [facility] on above:Performed By: #### BMP, TSH #### [facility] [address] [place] [address] Dr. Reema MirelesGscipWWI5-4Vlmffv6-1Gpp [facility] CenterComment on above:Performed By: #### BMP, TSH #### [facility] [address] [place] [address] Dr. Reema MirelesWBCNONE SEENNormalNONE SEENThe [facility] CenterComcorewell health [facility] on above: Performed By: #### BMP, TSH #### [facility] [address] [place] [address] Dr. Reema Stanford AUTO DIFFon 90-28-3067LPNE #0.0 103/ulNormal0.0-0.1The [facility] CenterComment on above:Performed By: #### CBC #### [facility] [address] [place] [address] Dr. Reema MirelesBasophils/100 WBC (Bld)0.6 %Normal0.2-2.0[facility] Comment on above:Performed By: #### CBC #### [facility] [address] [place] [address] Dr. Reema Lowe #0.1 103/ulNormal0.0-0.7The [facility] on above: Performed By: #### CBC #### [facility] [address] [place] [address] Dr. Reema Carpenterosinophils/100 WBC (Bld)1.8 %Normal0.9-7.0The [facility] Comment on above:Performed By: #### CBC #### [facility] [address] [place] [address] Dr. Reema Carpenterrythrocyte distribution width (RBC) [Ratio]11.9 %Ezwvpn63.0-15.0 The [facility] CenterComment on above:Performed By: #### CBC #### [facility] [address] [place] [address] Dr. Reema MirelesHematocrit (Bld) [Volume fraction]38.1 %Sreddb16.0-48.0The [facility] CenterComment on above:Performed By: #### CBC #### [facility] [address] [place] [address] Dr. Reema MirelesHemoglobin (Bld) [Mass/Vol]13.1 g/hGKtzbku56.0-16.0The [facility] on above:Performed By: #### CBC #### [facility] [address] [place] [address] Dr. Reema Rocha #0.01 10e3/ulNormal0.00-0.03The [facility] on above:Performed By: #### CBC #### [facility] [address] [place] [address] Dr. Reema Rocha %0.1 %Normal0.0-0.5The [facility] CenterComcorewell health [facility] on above: Performed By: #### CBC #### [facility] [address] [place] [address] Dr. Reema KimH #1.9 103/ulNormal1.2-3.8The [facility] on above:Performed By: #### CBC #### [facility] [address] [place] [address] Dr. Reema Barnettmphocytes/100 WBC (Bld)27.8 %Nhgles35.5-60.0The [facility] on above:Performed By: #### CBC #### [facility] [address] [place] [address] Dr. Reema StephensUAL DIFF REQNONormalThe [facility] CenterComment on above: Performed By: #### CBC #### [facility] [address] [address] [address] Reema Vincent (RBC) [Entitic mass]30.5 xcCzoinx95.7-34.0The [facility] CenterComment on above:Performed By: #### CBC #### [facility] [address] [place] [address] Dr. Reema Vincent (RBC) [Mass/Vol]34.4 g/rEPadije93.9-35.2The [facility] CenterComment on above:Performed By: #### CBC #### [facility] [address] [place] [address] Dr. Reema VincentV (RBC) [Entitic vol]88.8 aWYgfqdk36.0-99.0The [facility] CenterComment on above:Performed By: #### CBC #### [facility] [address] [place] [address] Dr. Reema Weller #0.8 103/ulNormal0.3-0.8The [facility] CenterComment on above:Performed By: #### CBC #### [facility] [address] [place] [address] Dr. Reema Galiciaocytes/100 WBC (Bld)11.2 %Normal1.7-12.0The [facility] Comment on above:Performed By: #### CBC #### [facility] [address] [place] [address] Dr. Reema OneilUT #4.0 103/ulNormal1.4-6.5The [facility] CenterComment on above:Performed By: #### CBC #### [facility] [address] [place] [address] Dr. Reema Oneilutrophils/100 WBC (Bld)58.5 %Pngucl93.0-75.0The [facility] CenterComment on above:Performed By: #### CBC #### [facility] [address] [place] [address] Dr. Reema Hodgsonlet mean volume (Bld) [Entitic vol]10.0 fLNormal9.5-13.5The [facility] CenterComment on above:Performed By: #### CBC #### [facility] [address] [address] [address] Reema MirelesPLT361 103/haYfylff270-245Hyx [facility] CenterComcorewell health [facility] on above: Performed By: #### CBC #### [facility] [address] [place] [address] Dr. Reema MirelesRBC4.29 106/ulNormal4.20-5.40The [facility] CenterComcorewell health [facility] on above:Performed By: #### CBC #### [facility] [address] [address] [address] Reema MirelesWBC6.8 103/ulNormal4.0-11.0The [facility] CenterComcorewell health [facility] on above: Performed By: #### CBC #### [facility] [address] [place] [address] Dr. Reema Mendoza QUANT HCGon 78-76-4866BSA QUANT1 mIU/mLNormalThe [facility] CenterComment on above:Performed By: #### PREGQNT #### [facility] [address] [place] [address] Dr. Reema SnowG RANGESEE [facility] Medical CenterComment on above: Result Comment: 5-50 0-1 WEEK 40-300 1-2 WEEKS 100-1,000 2-3 WEEKS 500-6,000 3-4 WEEKS 5,000-200,000 1-2 MONTHS 10,000-100,000 2-3 MONTHS 3,000-50,000 2ND TRIMESTER 1,000-50,000 3RD TRIMESTERPerformed By: #### PREGQNT #### [facility] [address] [place] [address] Dr. Reema MirelesCovid-19 PCR (CVDTB)on 12-96-7417DTSW-CoV-2 (COVID-19) RNA FRANKIE+probe Ql (Unsp spec)Not detectedNormalNOT DETECTEDThe [facility] Comment on above:Result Comment: This test is not yet approved or cleared by the [place] FDA. When there are no FDA-approved or cleared tests available, and other criteria are met, FDA can make tests available under an emergency access mechanism called an Emergency Use Authorization (EUA). The EUA for this test is supported by the [place] of Health and Human Service's (HHS's) declaration [...] consistent with SARS-CoV-2.Performed By: #### CVDTBH #### [facility] [address] [place] [address] Dr. Reema Mireles Vital Signs Date TimeVital SignValuePerforming YvrpqprtwLuydssec04-75-7990 09:35-0500Body mass index (BMI) [Ratio]37.86 kg/m2Amy Traci FARR Work Phone: [facility] HospitalNgxrzaxanj27-09-3295 09:35-0500Body uwffvy222.19 kgCydney FARR Work Phone: [phone] CharlottePershing Memorial HospitalRsbwyaywhi35-29-8771 09:35-0500Diastolic blood kltcojbe58 mm[Hg]Cydney FARR Work Phone: [phone]-[facility] HospitalXaqrldimlg77-32-5173 09:35-0500Systolic blood tdriikmp288 mm[Hg]Cydney FARR Work Phone: [facility] HospitalRnhnzirjnm36-32-8404 09:12-0400Body mass index (BMI) [Ratio]36.68 kg/i0Lemkx Omer DO Work Phone: [facility] HospitalKtsyxqfjcw27-30-0532 09:12-0400Body rzjyfe13.97 kgCorey Omer DO Work Phone: [facility] CareKoibouepgu60-61-1816 09:12-0400Diastolic blood paldyurf04 mm[Hg]Devyn Omer DO Work Phone: [phone] [place], [place] [address]Akpsbungpp37-22-4272 09:12-0400Systolic blood rxhhiyfl599 mm[Hg]Devyn Omer DO Work Phone: [phone] [place], [place] [address]Lwabrcoizg65-09-7152 09:24-0400Body mass index (BMI) [Ratio]36.58 kg/t1Uyqnjyev Chandrakant [employer] Work Phone: [phone] [place], [place] [address]Gwbcyzxdpe35-65-8536 09:24-0400Body agfwcd77.7 kg Cydney Chandrakant [employer] SALES [employer] Work Phone: [phone] [place], [place] [address]Yqtkoeopwu78-81-3930 09:24-0400Diastolic blood mm[Hg]Cydney Chandrakant [employer] SALES [employer] Work Phone: [phone] [place], [place] [address]Pkkowceddp97-74-6359 09:24-0400Systolic blood mm[Hg]Cydney Nolanerly [employer] SALES [employer] Work Phone: [phone] [place], [place] [address]Nblftukhfu75-36-9672 09:23-0400Body mass index (BMI) [Ratio]36.15 kg/p4Egjdm Omer DO Work Phone: [phone])[facility] [place], [place] [address]Legemkcmpr51-32-6619 09:23-0400Body hiutfs91.54 kgCorey Omer DO Work Phone: [phone])[facility] [place], [place] [address]Xhojvqhjhb94-08-2933 09:23-0400Diastolic blood uypwbspg67 mm[Hg]Devyn Omer DO Work Phone: [phone] [place], [place] [address]Tfmrdmroqy57-90-1159 09:23-0400Systolic blood quntfjrm444 mm[Hg]Devyn Omer DO Work Phone: [phone] [place], [place] [address]09-09-2025 10:24-0400Body mass index (BMI) [Ratio]35.53 kg/s9Hysot Omer DO Work Phone: [phone] [place], [place] [address]Gpdgzkvixe40-11-5447 10:24-0400Body .84 kgCorey Omer DO Work Phone: [phone] [place], [place] [address]Fretismizm46-05-5464 10:24-0400Diastolic blood mm[Hg]Devyn Omer DO Work Phone: [facility] HospitalJpyliibqzq36-49-6817 10:24-0400Systolic blood wqynwvvo295 mm[Hg]Devyn Omer DO Work Phone: [facility] HospitalZpgxrxdjqt11-93-6461 09:38-0400Body mass index (BMI) [Ratio]34.28 kg/m2Cydney Traci FARR Work Phone: [facility] HospitalXddiphstty04-56-7168 09:38-0400Body jxjxux76.44 kgCydney Traci FARR Work Phone: [facility] HospitalIsfpootpnp22-35-0090 09:38-0400Diastolic blood prgyzlcj14 mm[Hg]Cydney FARR Work Phone: [facility] HospitalYgtsaxtwmm56-99-3010 09:38-0400Systolic blood tbbaljiu982 mm[Hg]Cydney FARR Work Phone: [phone] [place], [place] [address]Uihlxpaqpg93-07-2626 09:14-0400Body mass index (BMI) [Ratio]32.64 kg/d4Huidm Omer DO Work Phone: [phone] [place], [place] [address]Zqksqcyyjx11-67-3631 09:14-0400Body flzufz87.96 kgCorey Omer DO Work Phone: [facility] HospitalUrzkgpppuf06-68-5171 09:14-0400Diastolic blood mm[Hg]Devyn Omer DO Work Phone: [facility] HospitalGnunxofwfi24-56-3996 09:14-0400Systolic blood ztclthog874 mm[Hg]Devyn Omer DO Work Phone: [phone] [place], [place] [address]Tofljtvjnk59-64-2488 10:21-0400Body mass index (BMI) [Ratio]32.02 kg/q3Wlmwu Omer DO Work Phone: [phone])576-[address] [place], [place] [address]Qoxtgnxibn33-41-4707 10:21-0400Body nyvhuo95.27 kgCorey Omer DO Work Phone: [facility] HospitalAnunpzmnxh61-47-3434 10:21-0400Diastolic blood gnnxatsj36 mm[Hg]Devyn Omer DO Work Phone: [facility] HospitalHwjdfqnkgb50-36-8292 10:21-0400Systolic blood nckehwrf327 mm[Hg]Devyn Omer DO Work Phone: [facility] HospitalPexjjebkfv24-89-1039 09:43-0400Body mass index (BMI) [Ratio]31.95 kg/m2[facility]04-25-2025 09:43-0400Body .09 kg[facility]04-25-2025 09:43-0400Diastolic blood ekajyupl87 mm[Hg][facility]04-25-2025 09:43-0400Systolic blood mm[Hg][facility]03-11-2025 11:23-0400Body mass index (BMI) [Ratio]32.12 kg/m2Amy Traci PA Work Phone: [facility] HospitalKgfsawvyza70-67-5590 11:23-0400Body ubelce25.54 kgAmy Traci PA Work Phone: [facility] HospitalUileralyar90-53-5731 11:23-0400Diastolic blood wrfpedvo95 mm[Hg]Cydney Traci PA Work Phone: [facility] HospitalDydqskkjvx13-16-8641 11:23-0400Systolic blood tszbieiu341 mm[Hg]Cydney Traci PA Work Phone: [facility] HospitalHijnplqpdv44-04-4878 10:12-0500Body mass index (BMI) [Ratio]32.64 kg/x3Xnmtm Omer DO Work Phone: [facility] HospitalDtobfrhqkr97-08-8599 10:12-0500Body qcveka94.96 kgCorey Omer DO Work Phone: [facility] HospitalMoqfjvwfkq14-07-9794 10:12-0500Diastolic blood tzvvcmop50 mm[Hg]Devyn Omer DO Work Phone: [facility] HospitalYxhkwmtbob60-48-3216 10:12-0500Systolic blood hqylpwsn816 mm[Hg]Devyn Omer DO Work Phone: [phone] [place], [place] [address]Qhukhhrrab88-74-0594 10:58-0500Body mass index (BMI) [Ratio]34.61 kg/m8Sycwa Omer DO Work Phone: 1(546)[facility] [place], [place] [address]Vqkqkwedjx28-72-5273 10:58-0500Body .35 kgCorey Omer DO Work Phone: [phone])[facility] [place], [place] [address]Xfkrwiegms19-93-6808 10:58-0500Diastolic blood bhtzoxyv86 mm[Hg]Devyn Omer DO Work Phone: 1(287)[facility] [place], [place] [address]Nqooolwwgk15-69-7495 10:58-0500Systolic blood fzadheyx572 mm[Hg]Devyn Omer DO Work Phone: 1([phone] [place], [place] [address]02-15-2024 14:15-0500Body bfgwgo921.86 kgCorey Omer DO Work Phone: 1(562)[facility] [place], [place] [address]Kwkehnfslr72-29-3177 14:15-0500Diastolic blood bzkxijli77 mm[Hg]Devyn Moer DO Work Phone: 1([phone])[facility] [place], [place] [address]Nnhvmqemhq69-23-0196 14:15-0500Systolic blood qiskojvt763 mm[Hg]Devyn Omer DO Work Phone: 1(324)[facility] [place], [place] [address]Zoonmmscmz14-98-8830 21:04-0400Diastolic blood kmvtowoo53 mm[Hg][facility]07-16-2022 21:04-0400Heart rate82 /minSub[facility] & [facility]07-16-2022 21:04-0400Respiratory rate16 /minSub[facility] & [facility] 04-12-2022 21:04-1377JnW7% (BldA) [Mass fraction]98 %[facility]07-16-2022 21:04-0400Systolic blood xfwufxjq159 mm[Hg][facility]07-16-2022 20:32-4310iqzo57 mg/dLSuburban Community Hospital & Brentwood HospitalComment on above:Result Comment: not taken due to pt refusal of any fgxbikfbf07-60-3146 20:32-0400glucSub[facility] Community Hospital & [facility]07-16-2022 19:25-0400Body aadonxatdch42.32 [degF][facility]07-16-2022 19:25-0400Diastolic blood yetkhtdy45 mm[Hg][facility]07-16-2022 19:25-0400Heart rate90 /minSub[facility]07-16-2022 19:25-0400Respiratory rate18 /minSub[facility] Community Hospital & [facility] 04-12-2022 19:25-1113TjJ7% (BldA) [Mass fraction]98 %[facility]07-16-2022 19:25-0400Systolic blood aqgldqbr688 mm[Hg][facility]07-13-2022 12:20-0400Body .1 cm Deonna Nazanin Other [employer] Other 07-13-2022 12:20-0400Body mass index (BMI) [Ratio] 35.61 kg/n9Vimekn Nazanin Other [employer] Other 07-13-2022 12:20-0400Body fkqtsvhibsw92.4 [degF]Deonna Nazanin Other [employer] Other 07-13-2022 12:20-0400Body dvutem79.07 kgRushavila Nazanin Other [employer] Other 07-13-2022 12:20-0400Diastolic blood ysvzohim83 mm[Hg] Deonna Nazanin Other [employer] Other 07-13-2022 12:20-0400Respiratory rate18 /minParomaa Nazanin Other [employer] Other 07-13-2022 12:20-3296SnS5% (BldA) [Mass fraction]99 % Deonna Cavanaughmond Other [employer] Other 07-13-2022 12:20-0400Systolic blood meoawhcj872 mm[Hg] Deonna Nazanin Other [employer] Other 07-06-2022 19:00-0400Body sdpyhe971.1 cmPamelavila Back Other [employer] Other 07-06-2022 19:00-0400Body mass index (BMI) [Ratio] 35.71 kg/n0Azrcskanabel Back Other [employer] Other 07-06-2022 19:00-0400Body idejkrcpavy98.1 [degF]Deonna Back Other [employer] Other 07-06-2022 19:00-0400Body zopvcj83.34 kgPaanabel Back Other [employer] Other 07-06-2022 19:00-0400Diastolic blood tfxalugd16 mm[Hg] Deonna Cavanaughmond Other [employer] Other 07-06-2022 19:00-0400Respiratory rate18 /minDeonna Back Other [employer] Other 07-06-2022 19:00-2654SjR1% (BldA) [Mass fraction]100 % Deonna Back Other [employer] Other 07-06-2022 19:00-0400Systolic blood ukkzdzot302 mm[Hg] Deonna Back Other [employer] Other Encounters Encounter DateEncounter TypeCare ProviderFacilityStart: 08-08-2025 End: 47-71-1150Ccbidw flowsheetCorey Omer DO Work Phone: no [place] [facility]BGYNStart: 08-08-2025 End: 95-28-5820Clhcvg flowsheetCorey Omer DO Work Phone: NO [facility] OBGYNStart: 08-08-2025 End: 45-25-0416fhedcecdjoIIDTG FAZIONot AvailableStart: 08-02-2025 End: 80-82-4976Fmsoea Efrain FARR Work Phone: no [facility]k OBGYNStart: 08-02-2025 End: 93-03-5570Zmzbma flowsDenny FARR Work Phone: noMS Bk OBGYNStart: 08-02-2025 End: 06-81-9189Qirtqczjd Result EncounterCydney FARR Work Phone: noMS External Department UnsolicitedStart: 08-02-2025 End: 53-14-8634Aoeiwa outpatient visit 15 minutesCydney FARR Work Phone: [facility] [place] OBGYNComment on above:Third trimester ([facility]); 36 weeks gestation of ([facility])Start: 08-02-2025 End: 86-23-0622vxajsufbvkYRK RAMEYNot AvailableStart: 07-18-2025 End: 89-40-0796Ohcuyl flowsheetCorey Omer DO Work Phone: noMS [place] OBGYNStart: 07-18-2025 End: 88-08-1773Kwlvtm flowsheetCorey Omer DO Work Phone: [facility] OBGYNStart: 07-18-2025 End: 14-46-9032Mqvvxy outpatient visit 15 minutesCorey Omer DO Work Phone: [facility] Bk OBGYNComment on above:Third trimester ([facility]); 34 weeks gestation of ([facility])Start: 07-18-2025 End: 68-64-8140lvoupmvylhSTZRO FAZIONot AvailableStart: 07-05-2025 End: 42-94-3767Dmzgbh flowsheetKristina Chandrakant [employer] Work Phone: [facility] Bk OBGYNStart: 07-05-2025 End: 23-43-2121Mlqnys flowsheetKristina Chandrakant [employer] SALES [employer] Work Phone: [facility] [place] OBGYNStart: 07-05-2025 End: 17-92-9062Qvhemh outpatient visit 15 minutesKrbam Stallings [employer] SALES [employer] Work Phone: [facility] [place] OBGYNComment on above:Third trimester ([facility]); 32 weeks gestation of ([facility])Start: 07-05-2025 End: 58-49-2265daalestubyGAWXUWFY EBERLYNot AvailableStart: 06-20-2025 End: 26-18-3069Lunkgt outpatient visit 15 minutesCorey Omer DO Work Phone: NOMS Bk OBGYNComment on above:Third trimester ([facility]); 30 weeks gestation of ([facility])Start: 06-20-2025 End: 75-49-8281quizirxgbhMUQFT FAZIONot AvailableStart: 06-06-2025 End: 61-60-5210Gawbzk flowsheetCorey Omer DO Work Phone: [facility] Bk OBGYNStart: 06-06-2025 End: 70-84-2623Qplhsh flowsheetCorey Omer DO Work Phone: [facility] Bk OBGYNStart: 06-06-2025 End: 53-66-4295Toppdn outpatient visit 15 minutesCorey Omer DO Work Phone: NO [place] OBGYNComment on above:Third trimester ([facility]); 28 weeks gestation of ([facility]); size inconsistent with dates ([facility])Start: 06-06-2025 End: 34-77-1243rbqqsiigkjZLREV FAZIONot AvailableStart: 05-26-2025 End: 06-44-8591Oaouihtbp Result EncounterAmy Traci FARR Work Phone: NOMS External Department UnsolicitedStart: 05-26-2025 End: 06-20-7571Sypnqdyvj Result EncounterAmy Traci FARR Work Phone: NOMS External Department UnsolicitedStart: 05-16-2025 End: 50-09-2952Smicdw flowsheetCydney FARR Work Phone: [facility] Bk OBGYNStart: 05-16-2025 End: 13-59-3565Wjrytx flowsheetCydney FARR Work Phone: [facility] Bk OBGYNStart: 05-16-2025 End: 15-05-4566kauhwaghprLTO TRACINot AvailableStart: 05-16-2025 End: 98-99-4115Lgvits outpatient visit 15 minutesAmy Traci FARR Work Phone: [facility] [place] OBGYNComment on above:24 weeks gestation of ([facility]); Second trimester ([facility]); Subchorionic hemorrhage of placenta, antepartum ([facility]); Diabetes mellitus screeningStart: 04-18-2025 End: 70-68-0256Rxemec outpatient visit 15 minutesCorey Omer DO Work Phone: [facility] [place] OBGYNComment on above:Second trimester ([facility]); 21 weeks gestation of ([facility])Start: 04-18-2025 End: 39-90-7872xpruryfbmmDQPXC FAZIONot AvailableStart: 04-18-2025 End: 98-53-4439pzfdryxajxGZWBZ FAZIONot AvailableStart: 03-20-2025 End: 58-79-1355Htubmm flowsheetCorey Omer DO Work Phone: NODF BCP OBStart: 03-20-2025 End: 90-36-4277Mnnhnx flowsheetCorey Omer DO Work Phone: [facility] BCP OBStart: 03-20-2025 End: 44-28-5645Wwygtk outpatient visit 15 minutesCorey Omer DO Work Phone: NOMS BCP OBComment on above:17 weeks gestation of ([facility]); Second trimester ([facility]); Screening, , for anatomic survey ([facility]); Exposure to STD; Vaginal dischargeStart: 03-20-2025 End: 26-89-7035vkjgmmlhuvWVGTT FAZIONot AvailableStart: 02-27-2025 End: 91-42-5225pwxaijfaawWJHRA FAZIONot AvailableStart: 02-16-2025 End: 31-68-5822ekfzhrgcdbRHXPV FAZIONot AvailableStart: 02-07-2025 End: 72-06-7403Ihvpebmlm encounterCorey Omer DO Work Phone: NOMS BCP OBStart: 01-30-2025 End: 82-89-4363Fecxctvtz Result EncounterCorey Omer DO Work Phone: NOMS External Department UnsolicitedStart: 01-30-2025 End: 44-39-6002Eoljbjety Result EncounterCorey Omer DO Work Phone: noMS External Department UnsolicitedStart: 01-20-2025 End: 44-02-4341Damuih outpatient visit 5 minutesNoms Bcp Ob Omer NurseNOMS BCP OBComment on above:GA: 4t8mFxkms: 01-20-2025 End: 97-36-5238tmhwkdbrelBQNPS FAZIONot AvailableStart: 12-06-2024 End: 77-26-9516Vhyens outpatient visit 15 minutesAmy Traci FARR Work Phone: [facility] OBComment on above:Exposure to STDStart: 12-06-2024 End: 36-94-8912fpayvvibcwAMN Taqueria AvailableStart: 11-01-2024 End: 53-28-7031Dgggpz flowsheetCorey Omer DO Work Phone: NOMS BCP OBStart: 11-01-2024 End: 23-63-6636Jauwpg flowsheetCorey Omer DO Work Phone: NOMS BCP OBStart: 11-01-2024 End: 23-06-8176Ljtrnm outpatient visit 15 minutesCorey Omer DO Work Phone: NOMS BCP OBComment on above:Post depression (CMS/HCC)Start: 11-01-2024 End: 82-65-0371rvnitxzbmdLRSMR FAZIONot AvailableStart: 08-29-2024 End: 00-70-0669Zbsdim flowsheetCorey Omer DO Work Phone: noMS BCP OBStart: 08-29-2024 End: 24-08-2360Pqhrxs flowsheetCorey Omer DO Work Phone: NOMS BCP OBStart: 08-29-2024 End: 80-44-5192Xppurefit Result EncounterCorey Omer DO Work Phone: noms External Department UnsolicitedStart: 08-29-2024 End: 96-78-0935Zhlgvws encounter procedureCorey Omer DO Work Phone: noMS Healthcare Work Phone: Start: 08-29-2024 End: 54-97-5089Nzvotlau preventive med est patient 18-39 yrsCorey Omer DO Work Phone: [facility] OBComment on above:Well woman exam with routine gynecological exam; UTI symptoms; Missed mensesStart: 08-29-2024 End: 21-93-1651gtqzgfilhbDYRFB FAZIONot AvailableStart: 06-13-2024 End: 77-96-0653Zemgke flowsheetCorey Omer DO Work Phone: NOYK BCP OBStart: 06-13-2024 End: 28-07-9809Uavguk flowsheetCorey Omer DO Work Phone: NOSB BCP OBStart: 06-13-2024 End: 66-09-3043Uacp/qhp telephone evaluation 5-10 minCorey Omer DO Work Phone: NOMS BCP OBComment on above:Post depression (CMS/HCC) (Primary Dx)Start: 01-20-2024 End: 71-77-5356Jzyrwzxim Result EncounterCorey Omer DO Work Phone: NOLF External Department UnsolicitedStart: 01-20-2024 End: 91-37-5798Tyhtgdmia Result EncounterCorey Omer DO Work Phone: NOOU External Department UnsolicitedStart: 01-14-2024 End: 47-68-1383Gzowuipha Result EncounterCorey Omer DO Work Phone: NOIK External Department UnsolicitedStart: 01-14-2024 End: 63-49-3403Olpzaxgho Result EncounterCorey Omer DO Work Phone: noms External Department UnsolicitedStart: 01-13-2024 End: 89-60-6274Cvyuqlpea Result EncounterCorey Omer DO Work Phone: NOCZ External Department UnsolicitedStart: 01-13-2024 End: 35-86-4522Zhyqtgsuv Result EncounterCorey Omer DO Work Phone: NOJW External Department UnsolicitedStart: 01-06-2024 End: 82-38-2672Gnutzumhy Result EncounterCorey Omer DO Work Phone: NORQ External Department UnsolicitedStart: 01-06-2024 End: 00-61-9651Hihmhkvpf Result EncounterCorey Omer DO Work Phone: noms External Department UnsolicitedStart: 12-30-2023 End: 47-68-0580Hcbqreccg Result EncounterCorey Omer DO Work Phone: noms External Department UnsolicitedStart: 12-30-2023 End: 74-29-1850Pxfshldks Result EncounterCorey Omer DO Work Phone: noms External Department UnsolicitedStart: 12-24-2023 End: 70-48-4319Rmflzxvqg Result EncounterCorey Omer DO Work Phone: noms External Department UnsolicitedStart: 12-24-2023 End: 60-72-8157Wzphnyxbz Result EncounterCorey Omer DO Work Phone: noms External Department UnsolicitedStart: 12-23-2023 End: 01-92-8749Fjuxyzlqq Result EncounterCorey Omer DO Work Phone: noms External Department UnsolicitedStart: 12-23-2023 End: 52-40-9815Peqtqootr Result EncounterCorey Omer DO Work Phone: noms External Department UnsolicitedStart: 12-16-2023 End: 72-17-4630Pkixfthtb Result EncounterCorey Omer DO Work Phone: noms External Department UnsolicitedStart: 12-16-2023 End: 21-73-7752Gsyovkeeb Result EncounterCorey Omer DO Work Phone: noms External Department UnsolicitedStart: 12-09-2023 End: 97-88-5017Laqhxgsnb Result EncounterCorey Omer DO Work Phone: noms External Department UnsolicitedStart: 12-09-2023 End: 60-60-9599Txgzvnsux Result EncounterCorey Omer DO Work Phone: noms External Department UnsolicitedStart: 12-01-2023 End: 59-48-0867Qvsrvorgw Result EncounterCorey Omer DO Work Phone: noms External Department UnsolicitedStart: 12-01-2023 End: 74-22-4551Delewpjsq Result EncounterCorey Omer DO Work Phone: noms External Department UnsolicitedStart: 11-26-2023 End: 82-66-2988Sozowbyvn Result EncounterCorey Omer DO Work Phone: noms External Department UnsolicitedStart: 11-26-2023 End: 21-20-9408Asmfdzwbx Result EncounterCorey Omer DO Work Phone: noms External Department UnsolicitedStart: 11-12-2023 End: 53-47-6852Ytxpxb outpatient visit 15 minutesCorey Omer DO Work Phone: noms BCP OBComment on above:Third trimester ; Excessive growth affecting management of in third trimester, single or unspecified fetusStart: 47-68-1468Efwfatbhw Result EncounterAmy Traci CHIKA Work Phone: noms External Department UnsolicitedStart: 11-03-2023 Clinisync Result EncounterAmy Traci PA Work Phone: noms External Department UnsolicitedStart: 09-17-2023 End: 76-55-1380Yriaqsgib Result EncounterCorey Omer DO Work Phone: noms External Department UnsolicitedStart: 09-17-2023 End: 44-44-6735Rkmmopjon Result EncounterCorey Omer DO Work Phone: noms External Department UnsolicitedStart: 09-14-2022 End: 81-69-1844rooovxblwrKT MARK R SMITHFacility:T6Xenjz: 08-11-2022 End: 24-58-2720oykkxmwxbbRA MARK R SMITHFacility:P3Uycin: 08-09-2022 End: 31-55-6732ipdeghzkggBG DAVID DEFRANCEFacility:W6Bchaw: 08-08-2022 End: 82-34-6937dghamucugkUM MARK R SMITHFacility:G0Yddqm: 04-16-2022 End: 69-66-9477frehmxadgtPW DAVID DEFRANCEFacility:R6Xwiak: 04-15-2022 End: 73-74-1023fjwojpefimTI DAVID DEFRANCEFacility:Z3Epgad: 04-13-2022 End: 52-04-3619fksauzuxgiLT DAVID DEFRANCEFacility:V4Yprmx: 04-12-2022 End: 16-58-0260Qfxitdjnw department patient visitAstrit Rothman Orth[facility] Special[facility] HospitalandreeaaniaMount Carmel [facility] Start: 04-10-2022 End: 94-70-6606rygnfffpdtQlhvnk Nazanin Other [employer] Other Start: 06-50-9301Gbowhbthw encounterPamela DydevoraFPG [facility] Care ClydeStart: 04-09-2022 End: 16-44-7544rgtzbvvfyoXofjep Nazanin Other [employer] Other Start: 19-13-1908Mknjas outpatient visit 15 minutes Deonna DymondFPG [facility] Care ClydeStart: 04-09-2022 End: 41-08-5959iaaxylnnhnEK LUIS ANTONIO SUTTONFacility:Y8Qsrad: 04-02-2022(URG) Urgent Care VisitPamela DymondFPG [facility] Care ClydeStart: 04-02-2022 End: 81-36-9532xhlgvyvogpHzxpzr Nazanin Other [employer] Other Start: 10-25-2021 End: 31-17-1008bjqzsihbstQH DAVID DEFRANCEFacility:A2Erxtt: 84-75-4726Cjwyijwni for preprocedural laboratory examinationDR [facility] Start: 10-22-2021 End: 39-93-5404ipywzvwhcvGR DAVID DEFRANCEFacility:X7Burxx: 10-22-2021 End: 55-74-3780Kdrxgamvz for preprocedural laboratory examinationDR ADRYAN DEFRANCEFacility:C8Sxefh: 05-96-0959Bhkqvwqjp for other preprocedural examinationDR [facility]YN [facility] HospitalStart: 10-17-2021 End: 52-24-4591zyfvicxvugKY DAVID DEFRANCEFacility:T7Jpsqa: 10-17-2021 End: 38-01-8000Xqagykffc for other preprocedural examinationDR ADRYAN BRENNANRANCE Facility:H1 Procedures DateProcedureProcedure DetailPerforming ClinicianStart: 32-82-3935Bkhkx dip stick/tablet rgnt non-auto w/o micrscpAmy Traci FARR Work Phone: Start: 70-32-9508LUAIM GP B CULTURE+RFLXAmayur FARR Work Phone: Start: 60-31-7133Hvxso dip stick/tablet rgnt non-auto w/o micrscpCorey Omer DO Work Phone: Start: 96-70-5900Uhlhf dip stick/tablet rgnt non-auto w/o micrscpKristina Chandrakant [employer] Work Phone: Start: 60-74-3328Wdpme dip stick/tablet rgnt non-auto w/o micrscpCorey Omer DO Work Phone: Start: 87-44-2790Fvmza dip stick/tablet rgnt non-auto w/o micrscpCorey Omer DO Work Phone: Start: 17-78-4248WEIUIGN 1 HOURAmy Traci FARR Work Phone: Start: 14-83-3658Jbpxi dip stick/tablet rgnt non-auto w/o micrscpAmy Traci FARR Work Phone: Start: 87-99-1897Dwjzf dip stick/tablet rgnt non-auto w/o micrscpCorey Omer DO Work Phone: Start: 99-08-9529Hpqxx dip stick/tablet rgnt non-auto w/o micrscpCorey Omer DO Work Phone: Start: 23-02-7103KEI TESTCorey Omer DO Work Phone: Start: 01-20-2025 End: 86-94-1596Kmiht dip stick/tablet rgnt non-auto w/o micrscpCorey Omer DO Work Phone: Start: 65-84-7566Nzqpw test visual color cmprsn ramanmayur FARR Work Phone: Start: 08-29-2024 End: 81-20-8051Vtyxz dip stick/tablet rgnt non-auto w/o micrscpCorey Omer DO Work Phone: Start: 85-80-6594UDF,APTIMA HPV,AGE GDLNCorey Omer DO Work Phone: Start: 97-58-2586FI OB BPP W NON-STRESSCorey Omer DO Work Phone: Start: 67-46-0092LC OB GROWTHCorey Omer DO Work Phone: Start: 25-19-5580YE OB GROWTHCorey Omer DO Work Phone: Start: 76-68-4639DS OB BPP W NON-STRESSCorey Omer DO Work Phone: Start: 31-75-7842DJ OB BPP W NON-STRESSCorey Omer DO Work Phone: Start: 39-92-5275MP OB BPP W NON-STRESSCorey Omer DO Work Phone: Start: 50-06-9517IB OB GROWTHCorey Omer DO Work Phone: Start: 64-71-8909OS OB BPP W NON-STRESSCorey Omer DO Work Phone: Start: 13-97-9954JU OB BPP W NON-STRESSCorey Omer DO Work Phone: Start: 38-91-5150ZY OB BPP W NON-STRESSCorey Omer DO Work Phone: Start: 75-24-7002CY OB BPP W NON-STRESSCorey Omer DO Work Phone: Start: 08-70-6761YT OB GROWTHCorey Omer DO Work Phone: Start: 41-67-3531Fmoua dip stick/tablet rgnt non-auto w/o micrscpCorey Omer DO Work Phone: Start: 78-54-1172OMY CBC WITH AUTO DIFFAmy Traci FARR Work Phone: Start: 45-96-7517FY OB ANATOMYCorey Omer DO Work Phone: Start: 62-39-5242XC OB CERVICAL LENGTHCorey Omer DO Work Phone: Plan of Treatment DateCare ActivityDetailAuthorStart: 09-07-2025 End: 09-73-3780Snlsfsa encounter procedureNOMS BCP OBStart: 08-08-2025 End: 46-05-8116Imgsita encounter procedureNOMS Bk OBGYNComment on above: ArrivedStart: 08-02-2025 End: 86-51-8635DEPRQNA, GROUP B STREP WITH SUSCEPTIBLITYCULTURE, GROUP B STREP WITH SUSCEPTIBLITY Lab Routine Third trimester ([facility]) Expected: 08/02/2025, Expires: 08/02/2026[facility] Work Phone: comment on above:Expected: 08/02/2025, Expires: 08/02/2026Start: 08-02-2025 End: 64-05-7697Xifpctl encounter procedureNOMS [place] OBGYNComment on above: ArrivedStart: 07-18-2025 End: 20-79-4185Pmluoky encounter procedureNOMS Bk OBGYNComment on above: ArrivedStart: 07-05-2025 End: 70-17-7357Ashbxzk encounter procedureNOMS [place] OBGYNComment on above: ArrivedStart: 06-06-2025 End: 83-82-7363UY for pregnancyUS OB follow up transabdominal approach Imaging Routine size inconsistent with dates ([facility]) Expected: 06/06/2025, Expires: 10/06/2025[facility] Work Phone: comment on above:Expected: 06/06/2025, Expires: 10/06/2025Start: 06-06-2025 End: 16-75-3426Ucfbtgm encounter procedureNOMS [place] OBGYNComment on above: ArrivedStart: 42-10-9642BVKLY-19 Vaccine ()COVID-19 Vaccine ()NOMS HealthcareStart: 43-03-0255Mnpfnbeht vaccinationNOIA HealthcareStart: 05-16-2025 End: 61-92-3101WET panel - Blood by Automated countCBC Lab Routine Diabetes mellitus screening Expected: 05/16/2025 (Approximate), Expires: 05/16/2026[facility] Work Phone: comment on above:Expected: 05/16/2025 (Approximate), Expires: 05/16/2026Start: 05-16-2025 End: 85-62-2462Graotevmwpf of glucose 1 hour after glucose challenge for glucose tolerance testGlucose tolerance, 1 hour Lab Routine Diabetes mellitus screening Expected: 05/16/2025 (Approximate), Expires: 05/16/2026[facility] HealthcareComment on above:Expected: 05/16/2025 (Approximate), Expires: 05/16/2026Start: 05-16-2025 End: 11-72-4589Hradgdd encounter gnyaknaqw19/19/2025 9:20 AM EDT Routine [facility]Sam[facility] [address] [id number] Cydney Aviles PA [address] [place] [address] NOMSamina [place] OBGYNStart: 04-18-2025 End: 37-17-9188Ibjftjl encounter jdhfvjbpa99/22/2025 9:20 AM EDT Routine [facility] [address] [place] [phone] Devyn Tello, DO [address] [place] [address] NOMS BCP OBStart: 04-18-2025 End: 25-60-0576Roelhzetxjqr / ancillary services zudzvgztsn99/22/2025 8:00 AM EDT Ancillary Procedure [facility] [address] [phone] NOMS BCP OBStart: 03-20-2025 End: 77-11-1451Iqkot fetoprotein, maternalAlpha fetoprotein, maternal Lab Routine 17 weeks gestation of ([facility]) Second trimester ([facility]) Expected: 03/20/2025 (Approximate), Expires: 04/19/2025[facility] Comment on above:Expected: 03/20/2025 (Approximate), Expires: 04/19/2025Start: 03-20-2025 End: 91-42-3785YG for pregnancyUS OB 14+ weeks anatomy scan Imaging Routine Screening, , for anatomic survey ([facility]) Expected: 03/20/2025, Expires: 06/20/2025[facility] HealthcareComment on above:Expected: 03/20/2025, Expires: 06/20/2025Start: 03-20-2025 End: 26-40-3273Vbhfjwu encounter lusmumndw79/23/2025 10:10 AM EDT Routine [facility] [address] [place] [phone] Devyn Tello, DO [address] [place] [address] ArrivedNOLOS [facility] OBComment on above: ArrivedStart: 02-21-2025 End: 45-58-4351Zbrvzuh encounter kuzhjfsxd21/27/2025 8:50 AM EDT Routine [facility] [address] [place] [address] Devyn Tello, DO [address] [place] [address] NOMS BCP OBStart: 01-20-2025 End: 24-02-1076UEJ/RhABO/Rh Lab Routine Missed menses , unspecified gestational age Expected: 01/20/2025 (Approximate), Expires: 01/20/2026NOMS HealthcareComment on above:Expected: 01/20/2025 (Approximate), Expires: 01/20/2026Start: 01-20-2025 End: 78-82-7694Wshbw type and Indirect antibody screen panel - BloodType and screen Lab Routine Missed menses , unspecified gestational age Expected: 01/20/2025 (Approximate), Expires: 01/20/2026[facility] Work Phone: comment on above:Expected: 01/20/2025 (Approximate), Expires: 01/20/2026Start: 01-20-2025 End: 26-22-4617Coewd of abuse panel - Urine by Screen methodRapid drug screen, urine Lab Routine , unspecified gestational age Encounter for supervision of normal first in first trimester Expected: 01/20/2025 (Approximate), Expires: 01/20/2026N[facility] HealthcareComment on above:Expected: 01/20/2025 (Approximate), Expires: 01/20/2026Start: 11-01-2024 End: 76-76-7316Zxxmvob encounter bbdlxihpn31/04/2025 10:00 AM EST Office Visit [facility] [address] [place] [phone] Devyn Tello, DO [address] [place] [address] ArrivedNOMS [facility] OBComment on above:ArrivedStart: 08-29-2024 End: 08-44-6501Gupuqfa encounter procedureNOMS [facility] OBComment on above:Arrived Start: 81-59-8246Npjkeliej vaccinationInfluenza Vaccine (#1)[facility] Start: 11-26-2023 End: 28-48-9919Jmxgqlr encounter hjrtqanac65/29/2024 11:00 AM EST Routine [facility] [address] [place] [phone] Cydney Aviles PA [address] [place], [place] [phone] [facility] OBStart: 11-26-2023 End: 94-34-9270Kwalwcvgjxsa / ancillary services gyxgpaxhww94/29/2024 10:30 AM EST Ancillary Procedure [facility] [address] [facility] [place] [place] [phone] [facility] OBStart: 11-12-2023 End: 63-45-8869EA for pregnancyUS OB SCAN FOR GROWTH Imaging Routine Excessive growth affecting management of in third trimester, single or unspecified fetus Expected: 11/12/2023 (Approximate), Expires: 2024[facility] Work Phone: comment on above:Expected: 11/12/2023 (Approximate), Expires: 11/12/2024Start: 11-12-2023 End: 34-85-6936Ddqrmdi encounter rltbeqkmk78/15/2024 10:50 AM EST Routine [facility] [address] [place] [phone] Devyn Tello DO [address] [place], [place] [phone] [facility] OBStart: 01-28-3934Ofxkhjhuh B Vaccines (1 of 3 - 19+ 3-dose series)Hepatitis B Vaccines (1 of 3 - 19+ 3-dose series)NOMS HealthcareStart: 14-25-9604Flgjsfnclkvyl B Vaccine (1 of 2 - Standard)Meningococcal B Vaccine (1 of 2 - Standard)NOMS HealthcareStart: 90-65-5847OEF Vaccines (1 - 3-dose series)HPV Vaccines (1 - 3-dose series)NOMS HealthcareStart: 06-58-3390Guvzzwh of varicella vaccinationVaricella Vaccines (1 of 2 - 13+ 2-dose series)NOMS HealthcareStart: 75-63-3247UEgZ/Tdap/Td Vaccines (1 - Tdap)DTaP/Tdap/Td Vaccines (1 - Tdap)NOMS HealthcareStart: 71-06-0305UBJ Vaccines (1 of 1 - Standard series)MMR Vaccines (1 of 1 - Standard series)NOM HealthcareBacteria identified in Urine by CultureUrine culture Microbiology Routine Missed menses Ordered: 01/20/2025[facility] HealthcareComment on above: Ordered: 01/20/2025BC W Auto Differential panel - BloodCBC and differential Lab Routine Missed menses , unspecified gestational age Ordered: 01/20[facility] HealthcareComment on above:Ordered: 01/20/2025HLAMYDIA TRACHOMATIS (GENITO/STI)CHLAMYDIA TRACHOMATIS (GENITO/STI) Lab Routine Exposure to STD Ordered: 12/06/2024[facility] HealthcareComment on above:Ordered: 12/06/2024HLAMYDIA TRACHOMATIS (GENITO/STI)CHLAMYDIA TRACHOMATIS (GENITO/STI) Lab Routine Exposure to STD Ordered: 03/20/2025[facility] HealthcareComment on above:Ordered: 03/20/2025 Cytology Cervical or vaginal smear or scraping studyPap Smear Pathology and Cytology Routine Well woman exam with routine gynecological exam Ordered: [facility] Healthcare Work Phone: comment on above:Ordered: 08/29/2024Hemoglobin A1c/Hemoglobin.total in BloodHemoglobin A1c Lab Routine Missed menses , unspecified gestational age Ordered: 01/20/2025[facility] HealthcareComment on above: Ordered: 01/20/2025Hepatitis B virus surface Ag [Presence] in Serum or Plasma by ImmunoassayHepatitis B surface antigen Lab Routine Missed menses , unspecified gestational age Ordered: 01/20/2025[facility] HealthcareComment on above: Ordered: 01/20/2025Hepatitis C virus Ab [Presence] in Serum or Plasma by ImmunoassayHepatitis C antibody Lab Routine Missed menses , unspecified gestational age Ordered: 01/20/2025[facility] HealthcareComment on above:Ordered: 01/20/2025HIV-1/HIV-2 antigen/antibody combination immunoassayHIV-1 and HIV-2 antibodies Lab Routine Missed menses , unspecified gestational age Ordered: 01/20/2025[facility] HealthcareComment on above:Ordered: 01/20/2025Neisseria gonorrhoeae DNA [Presence] in Unspecified specimen by FRANKIE with probe detection Neisseria gonorrhea DNA probe, direct Lab Routine Exposure to STD Ordered: 12/06/2024[facility] HealthcareComment on above:Ordered: 12/06/2024Neisseria gonorrhoeae DNA [Presence] in Unspecified specimen by FRANKIE with probe detection Neisseria gonorrhea DNA probe, direct Lab Routine Exposure to STD Ordered: 03/20/2025[facility] HealthcareComment on above:Ordered: 03/20/2025Reagin Ab [Presence] in Serum by RPRRPR Lab Routine Missed menses , unspecified gestational age Ordered: 01/20/2025[facility] HealthcareComment on above:Ordered: 01/20/2025Rubella antibody, IgGRubella antibody, IgG Lab Routine Missed menses , unspecified gestational age Ordered: 01/20/2025[facility] HealthcareComment on above:Ordered: 01/20/2025SURESWAB(R) ADVANCED VAGINITIS PLUS, TMASURESWAB(R) ADVANCED VAGINITIS PLUS, TMA Pathology and Cytology Routine Exposure to STD Ordered: 12/06/2024[facility] Healthcare Work Phone: comment on above:Ordered: 12/06/2024SURESWAB(R) ADVANCED VAGINITIS PLUS, TMASURESWAB(R) ADVANCED VAGINITIS PLUS, TMA Pathology and Cytology Routine Vaginal discharge Ordered: 03/20/2025[facility] Healthcare Work Phone: comment on above:Ordered: 03/20/2025 Payers DatePayer CategoryPayerPolicy [id number] [id number] [id number] CARITAS [place] [id number] 2023-Present [address] [place], [place] [id number] 1.2.840.297745.1.13.693.2.7.3.684937.315 2023Medicaid 1.2.840.311592.1.13.693.2.7.9.754107.243[id number] 2.0.1.351174.3.57[id number] 2.0.1.308621.3.579.[id number] 2.0.1.176070.3.579.2.98526-37-9812Bdymzfr4367977 2.0.1.994697.3.579.[id number] 2.0.1.461884.3.579.2.30069-38-4942Wcjvrte3026434 2.0.1.795444.3.579.[id number] 2.840.1.050947.3.579.[id number] 2.0.1.819577.3.579.[id number] 2.16.840.1.687828.3.579.2.07848-09-9685Vzuolii9149629 2..840.1.207415.3.579.2.37653-45-2828Ulsznwl5927773 2.840.1.650436.3.579.2.98175-57-7182Fxywodw21081453 2.840.1.161393.3.579.2.[id number] 2.840.1.008269.3.57[id number] 2.840.1.549349.3.579.2.276099-75-3878Tzirfmq75198213 2.840.1.453642.3.579.2.059[id number] 2.840.1.023613.3.579.2.[id number] 2.840.1.564543.3.579.2.95[id number] 2.840.1.165963.3.579.2.837020-21-0632Fyeqytu54645446 2.840.1.986808.3.579.2.860170-47-8991Aulljgy88269589 2.840.1.208740.3.579.[id number] 2.840.1.525737.3.579.2.[id number] 2.840.1.477827.3.579.2.617801-70-2848Qoepssz4679808 2.16.840.1.094279.3.579.2.918751-43-1178Dzequst9874746 2.16.840.1.433360.3.579.2.281482-76-6707Jxwcbvv4584865 2.16.840.1.770558.3.579.2.689389-75-2704Wasdubm6238794 2.16.840.1.372174.3.579.2.552403-32-8487Nwxymoh8539876 2.16.840.1.881847.3.579.2.438822-52-3883Mudkuzu0902073 2..840.1.695259.3.579.2.[id number] 2..840.1.339513.3.579.2.109228-03-2666QehuCarlsbad Medical [id number] 2.840.1.249600.19 Social History DateTypeDetailFacilityUnknown if ever smokedNoputnam county memorial hospital [employer] Other Start: 05-12-2024 End: 28-33-0012Uno Assigned At BirthGranite Canon [employer] Other Tobacco smoking statusNo Smoking Status [facility]: 87-40-1003Dqhorqq smoking status NHISTobacco smoking consumption unknownNOMS HealthcareStart: 10-15-2023 End: 73-53-1763Fnuxomx intakeLifetime non-drinker (finding)[facility] HealthcareStart: 10-98-4084Czliybi CommentCurrent smoker (frequency unknown)[facility] Start: 79-37-1113WxxcfoiryRUTQ HealthcareStart: 39-09-3727Wqw Assigned At Not on fileNOMS HealthcareStart: 64-35-2706Lxauxxf smoking status NHISEx-smoker N[facility] HealthcareHistory of tobacco useCurrent smokerNOMS HealthcareStart: 05-12-2024 End: 93-47-1947Mlqmvas of Social functionNOIA Healthcare Work Phone: Start: 57-18-4760KcrNaiibxVUJC Healthcare Goals DatePatient GoalDesired Activity/StatePersonal health goal Functional Status UeptUuxvgroskfZaukzoQbimeijw22-56-5453Kbpmywd Health Questionnaire 2 item (PHQ- 2) [Reported][facility] HospitalXxygzlczjw24-67-6981Fjlfzmhshr StatusN/AFAvita [facility] 10-25-2021 to 08-02-2025 Note Date & LgguQluwKqcjzncm27-77-3293 History of Present illness Narrative* Cydney Stallings, YURI - 08/02/2025 9:30 AM EST Reason for Appointment: Patient ID: Juanpablo Chaparro is a 24 y.o. female who presents for Routine Visit Patient presents today for Return OB appointment. MEDICATIONS Current Outpatient Medications Medication Instructions PU-Zoj-LI-Nora-3 ( GUMMIES/DHA & FA PO) 1 each, Daily ALLERGIES Allergies Allergen Reactions Sulfa Antibiotics Fever, Hives and Rash PROBLEMS Active Ambulatory Problems Diagnosis Date Noted Third trimester ([facility]) 06/20/2025 30 weeks gestation of ([facility]) 06/20/2025 Resolved Ambulatory Problems Diagnosis Date [...] nursing note reviewed. Exam conducted with a horse breaker present. Vitals: Estimated body mass index is 37.86 kg/m as calculated from the following: Height as of 03/08/24: 5' 5 . Weight as of this encounter: 227 lb 8 oz. BP: 112/82 Patient's last menstrual period was 11/18/2024 (approximate). Assessment/Plan ICD-10-CM 1. Third trimester ([facility]) Z34.93 POCT urinalysis dipstick manually resulted CULTURE, GROUP B STREP WITH SUSCEPTIBLITY CULTURE, GROUP B STREP WITH SUSCEPTIBLITY 2. 36 weeks gestation of ([facility]) Z3A.36 Return OB: Patient presents today for [...] behalf of: CHIKA Lyman documented in this encounterPershing Memorial HospitalXjxofsiijx42-41-2235 History of Present illness Narrative* Tricia Ozuna, PLANNING INTERN - 07/18/2025 9:00 AM EDT Reason for Appointment: Patient ID: Juanpablo Chaparro is a 24 y.o. female who presents for Routine Visit Patient presents today for Return OB appointment. MEDICATIONS Current Outpatient Medications Medication Instructions DO-Pgg-DX-Nora-3 ( GUMMIES/DHA & FA PO) 1 each, Daily ALLERGIES Allergies Allergen Reactions Sulfa Antibiotics Fever, Hives and Rash PROBLEMS Active Ambulatory Problems Diagnosis Date Noted Third trimester ([facility]) 06/20/2025 30 weeks gestation of ([facility]) 06/20/2025 Resolved Ambulatory Problems Diagnosis Date [...] nursing note reviewed. Exam conducted with a horse breaker present. Vitals: Estimated body mass index is 36.68 kg/m as calculated from the following: Height as of 03/08/24: 5' 5 . Weight as of this encounter: 220 lb 6.4 oz. BP: 126/70 Patient's last menstrual period was 11/18/2024 (approximate). Assessment/Plan ICD-10-CM 1. Third trimester ([facility]) Z34.93 2. 34 weeks gestation of ([facility]) Z3A.34 POCT urinalysis dipstick manually resulted Return [...] of: Devyn Tello DO documented in this encounterPershing Memorial HospitalEqyizyejio61-49-8953 History of Present illness Narrative* Cydney Stallings, YURI - 07/05/2025 9:20 AM EDT Reason for Appointment: Patient ID: Juanpablo Chaparro is a 24 y.o. female who presents for Routine Visit Patient presents today for Return OB appointment. MEDICATIONS Current Outpatient Medications Medication Instructions KP-Uzz-KX-Nora-3 ( GUMMIES/DHA & FA PO) 1 each, Daily ALLERGIES Allergies Allergen Reactions Sulfa Antibiotics Fever, Hives and Rash PROBLEMS Active Ambulatory Problems Diagnosis Date Noted Third trimester ([facility]) 06/20/2025 30 weeks gestation of ([facility]) 06/20/2025 Resolved Ambulatory Problems Diagnosis Date [...] nursing note reviewed. Exam conducted with a horse breaker present. Vitals: Estimated body mass index is 36.58 kg/m as calculated from the following: Height as of 24: 5' 5 . Weight as of this encounter: 219 lb 12.8 oz. BP: 118/78 Patient's last menstrual period was 11/18/2024 (approximate). ASSESSMENT & PLAN ICD-10-CM 1. Third trimester ([facility]) Z34.93 2. 32 weeks gestation of ([facility]) Z3A.32 POCT urinalysis dipstick manually resulted Return [...] of: Cydney Stallings NP documented in this encounterPershing Memorial HospitalVngtlndqvd73-09-0454 History of Present illness Narrative* Tricia Ozuna LPN - 06/20/2025 9:30 AM EDT Reason for Appointment: Patient ID: Juanpablo Chaparro is a 24 y.o. female who presents for Routine Visit Patient presents today for Return OB appointment. MEDICATIONS Current Outpatient Medications Medication Instructions HF-Snz-EK-Nora-3 ( GUMMIES/DHA & FA PO) 1 each, Daily ALLERGIES Allergies Allergen Reactions Sulfa Antibiotics Fever, Hives and Rash PROBLEMS Active Ambulatory Problems Diagnosis Date Noted Third trimester ([facility]) 06/20/2025 30 weeks gestation of ([facility]) 06/20/2025 Resolved Ambulatory Problems Diagnosis Date [...] nursing note reviewed. Exam conducted with a horse breaker present. Vitals: Estimated body mass index is 36.15 kg/m as calculated from the following: Height as of 24: 5' 5 . Weight as of this encounter: 217 lb 4 oz. BP: 112/70 Patient's last menstrual period was 11/18/2024 (approximate). ASSESSMENT & PLAN ICD-10-CM 1. Third trimester ([facility]) Z34.93 POCT urinalysis dipstick manually resulted 2. 30 weeks gestation of ([facility]) Z3A.30 POCT urinalysis dipstick manually resulted Return [...] of: Devyn Tello DO documented in this encounterPershing Memorial HospitalOkenqmhkot75-25-0166 History of Present illness Narrative* Tricia Ozuna LPN - 06/06/2025 10:20 AM EDT Reason for Appointment: Patient ID: Juanpablo Chaparro is a 24 y.o. female who presents for Routine Visit Patient presents today for Return OB appointment. MEDICATIONS Current Outpatient Medications Medication Instructions TX-Div-TY-Nora-3 ( GUMMIES/DHA & FA PO) 1 each, [...] nursing note reviewed. Exam conducted with a horse breaker present. Vitals: Estimated body mass index is 35.53 kg/m as calculated from the following: Height as of 03/08/24: 5' 5 . Weight as of this encounter: 213 lb 8 oz. BP: 112/82 Patient's last menstrual period was 11/18/2024 (approximate). ASSESSMENT & PLAN ICD-10-CM 1. Third trimester ([facility]) Z34.93 POCT urinalysis dipstick manually resulted 2. 28 weeks gestation of ([facility]) Z3A.28 Return OB: Patient presents today for [...] of: Devyn Tello DO documented in this encounterPershing Memorial HospitalQybciujjke63-80-1306 History of Present illness Narrative* CHIKA Lyman - 05/16/2025 9:20 AM EDT Reason for Appointment: Patient ID: Juanpablo Chaparro is a 24 y.o. female who presents for Routine Visit Patient presents today for Return OB appointment. MEDICATIONS Current Outpatient Medications Medication Instructions NK-Zcq-BF-Nora-3 ( GUMMIES/DHA & FA PO) 1 each, [...] PLAN ICD-10-CM 1. 24 weeks gestation of ([facility]) Z3A.24 POCT urinalysis dipstick manually resulted 2. Second trimester ([facility]) Z34.92 POCT urinalysis dipstick manually resulted 3. Subchorionic hemorrhage of placenta, antepartum ([facility]) O46.8X9 4. Diabetes mellitus screening Z13.1 CBC [...] behalf of: CHIKA Lyman documented in this encounterPershing Memorial HospitalLelpaukota09-76-9083 History of Present illness Narrative* Tricia Ozuna, BELL - 04/18/2025 9:20 AM EDT Reason for Appointment: Patient ID: Juanpablo Chaparro is a 24 y.o. female who presents for Routine Visit Patient presents today for Return OB appointment. MEDICATIONS Current Outpatient Medications Medication Instructions WH-Pxy-MG-Nora-3 ( GUMMIES/DHA & FA PO) 1 each, [...] nursing note reviewed. Exam conducted with a horse breaker present. Vitals: Estimated body mass index is 32.64 kg/m as calculated from the following: Height as of 03/08/24: 5' 5 . Weight as of this encounter: 196 lb 1.9 oz. BP: 110/78 Patient's last menstrual period was 11/18/2024 (approximate). ASSESSMENT & PLAN ICD-10-CM 1. Second trimester ([facility]) Z34.92 POCT urinalysis dipstick manually resulted 2. 21 weeks gestation of ([facility]) Z3A.21 POCT urinalysis dipstick manually resulted Patient presents today for a routine obstetrics appointment. Patient is currently 21w4d with a Estimated Date of Delivery: 08/25/25. Pt had anatomy scan prior to appt. Will notify of results. Pt to return in 4 weeks for scheduled ob appt. Documented by Tricia Ozuna LPN on behalf of: Devyn Tello DO documented in this encounterPershing Memorial HospitalLkhdhojjll17-32-6214 History of Present illness Narrative* Maryam Saul LPN - 03/20/2025 10:10 AM EDT Reason for Appointment: Patient ID: Juanpablo Chaparro is a 24 y.o. female who presents for Routine Visit Patient presents today for Return OB appointment. MEDICATIONS Current Outpatient Medications Medication Instructions HG-Gln-JO-Nora-3 ( GUMMIES/DHA & FA PO) 1 each, [...] nursing note reviewed. Exam conducted with a horse breaker present. Vitals: Estimated body mass index is 32.02 kg/m as calculated from the following: Height as of 24: 5' 5 . Weight as of this encounter: 192 lb 6.4 oz. BP: 120/70 Patient's last menstrual period was 11/18/2024 (approximate). ASSESSMENT & PLAN ICD-10-CM 1. 17 weeks gestation of ([facility]) Z3A.17 POCT urinalysis dipstick manually resulted Alpha fetoprotein, maternal Alpha fetoprotein, maternal 2. Second trimester ([facility]) Z34.92 POCT urinalysis dipstick manually resulted Alpha fetoprotein, maternal Alpha fetoprotein, maternal 3. Screening, , for anatomic survey ([facility]) Z36.89 US OB 14+ weeks anatomy scan [...] of: Devyn Tello DO documented in this encounterPershing Memorial HospitalDvyakalnxu72-01-0943 Telephone encounter Note* Telephone Encounter - Nohelia Breen - 02/07/2025 3:45 PM EDT Patient called us today and was concerned as she is in early stages of , and she is havingstomach cramping all across her abdomen. Patient states she is having no bleeding at this time, butI spoke with clinical staff and they recommended she go to [facility] to get evaluated. [facility] HospitalCfdxfzdenb38-00-1740 Miscellaneous Notes* Telephone Encounter - Nohelia Breen - 02/07/2025 3:45 PM EDT Patient called us today and was concerned as she is in early stages of , and she is havingstomach cramping all across her abdomen. Patient states she is having no bleeding at this time, butI spoke with clinical staff and they recommended she go to [facility] to get evaluated. documented in this encounterPershing Memorial HospitalYnpbyamcnc50-41-9209 History of Present illness Narrative* Ciarra Castillo [...] weeks gestation of Nurse Note: Patient desires Lewellen. Pt was advised to have both labs w/Lewellen at [facility] or the lab dept will not draw Lewellen w/o labs. PVU. Pt stated she had [...] or undercooked meat, and [facility] away from [facility]. Patient has also been advised [...] by: Ciarra Castillo MA documented in this encounterPershing Memorial HospitalIbuospspnm57-94-9954 History of Present illness Narrative* CHIKA Lyman [...] behalf of: CHIKA Lyman documented in this encounterPershing Memorial HospitalLezfwysvyv80-62-2778 History of Present illness Narrative* Tricia Ozuna LPN - 11/01/2024 10:00 AM EST Reason for [...] nursing note reviewed. Exam conducted with a horse breaker present. Vitals: Estimated body mass index is [...] of: Devyn Tello DO documented in this encounterPershing Memorial HospitalQyjkpzyjam52-77-9733 History of Present illness Narrative* Tricia Ozuna [...] nursing note reviewed. Exam conducted with a horse breaker present. Vitals: Estimated body mass index is [...] of: Devyn Tello DO documented in this encounterPershing Memorial HospitalUkzklmoxji36-73-8402 History of Present illness Narrative* Maryam Saul LPN - 06/13/2024 8:10 AM EDT Reason for Appointment: Patient ID: Juanpablo Chaparro is a 23 y.o. female who presents for No chief complaint on file. Patient presents today via telephone call for a telehealth appointment. Patients Phone #: [phone] (mobile) Current Medications: has a current medication [...] of: Devyn Tello DO documented in this encounterPershing Memorial HospitalRfrhdlvwhv50-81-6915 History of Present illness Narrative* Ciarra Castillo [...] of: Devyn Tello DO documented in this encounterPershing Memorial HospitalEtizgpvtqf04-79-1024 Hospital Discharge instructions Patient Education 04/12/2022 21:07:38 [...] help with your condition: Managing pain Take nmue-ung-wcsntjz and prescription medicines only as told by [...] 09/14/2006 Document Revised: 04/04/2019 Document Reviewed: 04/04/2019 [facility] Patient Education 2020 [facility] 04/12/2022 21:07:38 Vertigo Vertigo Vertigo is [...] if you feel dizzy. General instructions Take lzre-ref-gtkztqv and prescription medicines only as told by [...] 06/24/2006 Document Revised: 08/08/2019 Document Reviewed: 08/08/2019 [employer] Patient Education 2020 [facility] Follow Up Care 04/12/2022 19:25:17 With:ADRYAN MARIE Address: [address] [place], [place] [id number] [facility] (1) When:04/15/2022 20:55:24 Comments:Return to the emergency room if her headache gets worse, vertigo becomes persistent or any new symptoms [facility]07-13-2022 Evaluation note* Encounter Date Diagnosis Assessment Notes [...] She was prescribed Zofran with no improvement. [employer] Other 07-06-2022 Evaluation note* Encounter Date Diagnosis [...] 3 days. No swimming for a week [employer] Other 01-28-2022 NoteOPERATIVE NOTE PROCEDURE: Diagnostic laparoscopy. PREOPERATIVE DIAGNOSIS: Pelvic pain, dyspareunia dysmenorrhea. POSTOPERATIVE DIAGNOSIS: Pelvic pain, dyspareunia dysmenorrhea. ANESTHESIA: General. SURGEON: Devyn Tello D.O. GENERATOR MAN: JAE Worley URINE OUTPUT: Yellow and clear. [...] taken to Recovery Room in stable condition. [facility] Signed and Approved by: DR DEVYN TELLO . 11/01/2021 17:31:[address] No data available for this section [facility]Evaluation noteNo [facility] [employer] Other Evaluation note* Diagnosis Third trimester state, incidental Excessive growth affecting management of in third trimester, single or unspecified fetus documented in this encounter [facility] HealthcareEvaluation note* Diagnosis Well woman exam with routine gynecological exam Routine gynecological examination UTI symptoms Missed menses documented in this encounter [facility] HealthcareEvaluation note* Diagnosis Post depression (CMS/HCC)- Primary Mental disorders of mother, complicating , childbirth, or the puerperium, unspecified as to episode of care documented in this encounter [facility] HealthcareEvaluation note* Diagnosis Post depression (CMS/HCC) Mental disorders of mother, complicating , childbirth, or the puerperium, unspecified as to episode of care documented in this encounter [facility] HealthcareEvaluation note* Diagnosis Exposure to STD documented in this encounter [facility] HealthcareEvaluation note* Diagnosis Missed menses , unspecified gestational age Encounter for supervision of normal first in first trimester 9 weeks gestation of documented in this encounter [facility] HealthcareEvaluation note* Diagnosis 17 weeks gestation of ([facility]) Second trimester ([facility]) state, incidental Screening, , for anatomic survey ([facility]) Encounter for anatomic survey Exposure to STD [...] surgerySurgical Historyendometriosis Hospitalization HistoryRSV as a baby [employer] Other Progress note No data available for this section [facility] Summary Purpose Family History No Family [...] DateEnd Date Adryan Marie MD [address] [place] [address] PCP - GeneralFamily Medicine06/19/23Team MemberRelationshipSpecialtyStart DateEnd Date Adryan Marie MD [address] [place] [address] PCP - [facility] Medicine06/19/23Te MemberRelationshipSpecialtyStart DateEnd Date Adryan Marie MD [address] [place] [address] PCP - [facility] Medicine06/19/23Te MemberRelationshipSpecialtyStart DateEnd Date Adryan Marie MD [address] [place] [address] PCP - [facility] Medicine06/19/23Team MemberRelationshipSpecialtyStart DateEnd Date Adryan Marie MD [address] [place] [address] PCP - [facility] Medicine06/19/23Te MemberRelationshipSpecialtyStart DateEnd Date Adryan Marie MD [address] [place] [address] PCP - [facility] Medicine06/19/23Te MemberRelationshipSpecialtyStart DateEnd Date Adryan Marie MD [address] [place] [address] PCP - Generalmily Medicine06/19/23 Devyn Tello, DO [facility] [place] [address] PCP - [facility]09/28/24[facility] MemberRelationshipSpecialtyStart DateEnd Date Adryan Marie MD [address] [place] [address] PCP - [facility]06/19/23 Devyn Tello, DO [facility] [place] [address] PCP - [facility]09/28/24Te MemberRelationshipSpecialtyStart DateEnd Date Adryan Marie MD [address] [place] [address] PCP - [facility]06/19/23 Devyn Tello, DO [facility] [place] [address] PCP - [facility]10/22Te MemberRelationshipSpecialtyStart DateEnd Date Adryan Marie MD [address] [place] [address] PCP - [facility]06/19/23 Devyn Tello, DO [facility] [place] [address] [address]10/22Te MemberRelationshipSpecialtyStart DateEnd Date Adryan Marie MD [address] [place] [address] PCP - [facility]06/19/23 Devyn Tello, DO [address] [place] [address] PCP - [facility]09/28/24Te MemberRelationshipSpecialtyStart DateEnd Date Adryan Marie MD [address] [place] [address] PCP - [facility]06/19/23 Devyn Tello, DO [facility] [address] [place], [facility] PCP - [facility]09/28/24Te MemberRelationshipSpecialtyStart DateEnd Date Adryan Marie MD [address] [place] [address] PCP - [facility]06/19/23 Devyn Tello, DO [facility] [place] [address] [facility] - [facility]09/28/24Te MemberRelationshipSpecialtyStart DateEnd Date Adryan Marie MD [address] [place] [address] PCP - [facility]06/19/23 Devyn Tello, DO [address] [place] [address] PCP - [facility]09/28/24Te MemberRelationshipSpecialtyStart DateEnd Date Adryan Marie MD [address] [place] [address] PCP - [facility]06/19/23 Devyn Tello, DO [address] [place], [place] [address]dorina Trejo [facility] [place] [address] PCP - [facility]09/28/24Te MemberRelationshipSpecialtyStart DateEnd Date Adryan Marie MD [address] [place] [address] PCP - [facility]06/19/23 Devyn Tello, DO [address] [place], [place] [address] Trejo [facility] [place] [address] PCP - [facility]09/28/24Te MemberRelationshipSpecialtyStart DateEnd Date Adryan Marie MD [address] [place] [address] PCP - [facility]06/19/23 Devyn Tello, DO [address] [place], [place] [address] Trejo [facility] [place] [address] PCP [facility]10/22Te MemberRelationshipSpecialtyStart DateEnd Date Adryan Marie MD [address] [place] [address] PCP - [facility]06/19/23 Devyn Tello DO [address] [place] [address] [place] [address] PCP - [facility]09/28/24 INFORMATION SOURCE (unrecogn ized section and content) DATE CREATED AUTHOR 04/26/2022 [facility] DATE CREATED AUTHOR AUTHOR'S ORGANIZ ATION 09/19/[address] [facility] DATE CREATED AUTHOR AUTHOR'S ORGANIZ ATION 08/09/2025 [facility] FOR RECORDS PERTAINING [...] BE BASED ON THE PRIMARY CLINICAL RECORDS. [facility]. provides no warranty or guarantee of the accuracy or completeness of information in this document.
--- OUTSIDE RECORDS SUMMARY | 2025-08-18 07:34 | XMS_ITS | Encounter Summary ---
Author Organization [facility] Address [address] [place] [address] Care Team Providers Care Calliope Player Name Role Phone Roberto Marie MD Primary Care Provider + [phone] Devyn Tello DO Unavailable Encounter Details DateTypeDepartmentCare Team (Latest Contact Info)Hqkdwmwpuae85/17/2025Telephone [facility] [address] [place] [address] [place] [address] Maryam Saul LPN Social History Tobacco UseTypesPacks/DayYears UsedDateSmoking Tobacco: Former Comments:Current smoker (richar quency unknown) Alcohol UseStandard Drinks/WeekCommentsNever0 (1 standard drink = 0.6 oz pure alcohol)PHQ-2AnswerDate RecordedPatient Health Questionnaire-2 Yyjtt950 Estimated Date of FitcnpwnFagxopkjGym62/28/2025Based on last menstrual period of 11/18/2024 (Approximate)Sex and Gender InformationValueDate RecordedSex Assigned at BirthNot on fileLegal AorHijxst88/15/2023 6:47 PM EDTGender Identity Not on fileSexual OrientationNot on filedocumented as of this encounter Miscellaneous Notes * Telephone Encounter - Maryam Saul LPN - 08/14/2025 9:29 AM EST Patient called and voiced that she was to hear back on Rpt date as 08/17/25 was too soon and she is not able to do Thursday08/18/25 as she does not have any childcare for the day. Patient would like to know about Thursday08/21/25. Reached out to provider and will contact patient after hearing back. --Maryam Bishop LPN 2672 Called patient and informed her that her surgery can either be done on Thursday or Thursday. 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 [phone] Patient returned call and stated that she will be keeping Thursday the . Patient is scheduled in office tomorrow and scheduled to see Maye @ [facility] on Thursday. Maryam Bishop LPN Called [facility] and spoke with Maye who confirmed that patient is going to be rpt c- section on Thursday08/18/25. Maryam Bishop LPN documented in this encounter Plan of Treatment DateTypeDepartmentCare Team (Latest Contact Info)Uyxtbddhbdi77/26/2025 2:50 PM ESTOffice Visit [facility] [address] [facility] [place] [phone] Cydney Aviles PA [address] [facility] [place] [address] documented as of this encounter Goals GoalPatient Goal TypeAssociated ProblemsRecent ProgressPatient-Stated?Author Reminders Care PlanOB RemindersNoOpen Scheduling, Backgrounddocumented as of this encounter Visit Diagnoses Not on filedocumented in this encounter Additional Health Concerns Active ProblemsNoted DateDiagnosed DateOB Rmedywamj39/30/2023 documented as of this encounter Care Teams Team MemberRelationshipSpecialtyStart DateEnd Date Roberto Marie MD [address] [place] [address] [facility] - [facility]/19/23 Devyn Tello DO [address] [place] [address] [place] [address] PCP - [facility]/10/22documented as of this encounter
--- OUTSIDE RECORDS SUMMARY | 2025-08-18 07:34 | XMS_ITS | Clinical Summary ---
Author Organization [employer] Address [id number] [address] [place] [address] Care Team Providers Care Supervisor Vacuum Metalizing Name Role Phone Unavailable Primary Care Provider Unavailabl e Allergies Active AllergyReactionsCriticalityNoted DateCommentsSulfa (Sulfonamide Antibiotics)Rash,IltaaFjx24/20/2018 Medications No known medications Active Problems No known active problems Immunizations ImmunizationAdministration DatesNext DueDTaP, Rijdczgmqxx83/25/2007,05/23/2005, 03/18/2002,01/12/2002,2001Hep B, Adolescent or Giighfscc25/21/2002, 2001,2001HiB05/23/2005,03/18/2002,01/12/2002,2001IPV02/19/2007 ,05/23/2005,08/14/2002,01/12/2002,2001MMR11/16/2002MMRV02/19/2007Tdap 05/04/20146429Brpirmhcv57/15/2003 Family History Medical HistoryRelationNameCommentsNo Known ProblemsFatherNo Known [...] care, and heating?Not hard at all05/23/2024HQ-2AnswerDate RecordedTotal Aegkk0523PRAPARE - TransportationAnswerDate RecordedIn the past 12 months, [...] as a part of a household?No4ChildcareAnswer Date MxbiqtavYualqubswWnjzwyu01/12/2019EmploymentAnswerDate RecordedEmployment Urlbodc0903/09/2019Hunger ScreeningAnswerDate RecordedWithin the past 12 months we worried whether our food would run out before we got money to buy more.Never True05/23/2024Within the past 12 months the food we bought just didn't last and we didn't have money to get more.Never True05/23/2024urpose - LifeAnswerDate RecordedPurpose and direction in vrjfCxheiyc48/22/2021CommentsNoSex and Gender InformationValueDate RecordedSex Assigned at BirthNot on fileLegal Sex Zkvgfi1505/03/2015 11:58 AM EDTGender IdentityNot on fileSexual OrientationNot on file Last Filed Vital Signs Vital SignReadingTime TakenCommentsBlood Juoclpgv223/80004/10/2023 9:46 AM EDT Vspgu0165/14/2023 9:46 AM BIIJykdzcneigu91.9 ??C (98.5 ??F)04/10/2023 9:46 AM EDTRespiratory Pmhe446204/10/2023 9:46 AM EDTOxygen Auujftamxa24%09/04/2022 2:12 PM ESTInhaled Oxygen Concentration--Gnirnb59.8 kg (215 lb 8 oz)04/10/2023 9:46 AM XEMRplyop461.1 cm (5' 5 )04/10/2023 9:46 AM EDTBody Mass Index35.8604/10/2023 9:46 AM EDT Plan of Treatment Health MaintenanceDue DateLast DoneCommentsChlamydia Wolmzezcc2001Tobacco Mjivsdwky34/15/2013dult BMI Cmgyxghho90epression Screening TaP,Tdap and Td Vaccines (7 - Td or Tdap)05/04/2024 05/04/2014, 02/19/2007, 05/23/2005, Additional history existsInfluenza Vaccine 05/29/2025Pap Smear Medical Devices Not on file Insurance * Guarantor: Maya Maria TypeRelation to PatientDate of BirthPhone Billing AddressPersonal/HwhjqwGiagpv32/26/1975 [address] [id number]
--- OUTSIDE RECORDS SUMMARY | 2025-08-18 07:34 | XMS_ITS | Encounter Summary ---
Author Organization [facility] Address [address] [facility] [place] [address] Care Team Providers Care Bundle Cutter Name Role Phone Roberto Marie MD Primary Care Provider + [phone] Devyn Tello DO Unavailable Encounter Details DateTypeDepartmentCare Team (Latest Contact Info)Hisyiiywlnf34/18/2025amboo flowsheet [facility] [address] [facility] [address] Cydney Aviles PA [address] [facility] [address] [place], [facility] Social History Tobacco UseTypesPacks/DayYears UsedDateSmoking Tobacco: Former Comments:Current smoker (richar quency unknown) Alcohol UseStandard Drinks/WeekCommentsNever0 (1 standard drink = 0.6 oz pure alcohol)PHQ-2AnswerDate RecordedPatient Health Questionnaire-2 Uixem537 Estimated Date of CxbwimonEorsbpefQvr98/28/2025Based on last menstrual period of 11/18/2024 (Approximate)Sex and Gender InformationValueDate RecordedSex Assigned at BirthNot on fileLegal IjtMabszd41/15/2023 6:47 PM EDTGender Identity Not on fileSexual OrientationNot on filedocumented as of this encounter Plan of Treatment DateTypeDepartmentCare Team (Latest Contact Info)Relnjrkbjie18/26/2025 2:50 PM ESTOffice Visit [facility] [address] [facility] [place] [address] Cydney Aviles PA [address] [facility] [address] [place], [place] [id number] documented as of this encounter Goals GoalPatient Goal TypeAssociated ProblemsRecent ProgressPatient-Stated?Author Reminders Care PlanOB RemindersNoOpen Scheduling, Backgrounddocumented as of this encounter Visit Diagnoses Not on filedocumented in this encounter Additional Health Concerns Active ProblemsNoted DateDiagnosed DateOB Tpqppxwne32/30/2023 documented as of this encounter Care Teams Team MemberRelationshipSpecialtyStart DateEnd Date Roberto Marie MD [address] [place] [address] [facility] - [facility]/23 Devyn Tello DO [address] [facility] [place] [address] PCP - [facility]09/28/24documented as of this encounter
--- OUTSIDE RECORDS SUMMARY | 2025-08-18 07:34 | XMS_ITS | Encounter Summary ---
Author Organization [facility] Address [address] [facility] [place] [address] Care Team Providers Care Allergy Specialist Name Role Phone Roberto Marie MD Primary Care Provider + [phone] Devyn Tello DO Unavailable Encounter Details DateTypeDepartmentCare Team (Latest Contact Info)Xbuasyanpur07/05/2025linisync Result Encounter [facility] External Department Unsolicited Cydney Aviles PA [address] [place], [place] [id number] Social History Tobacco UseTypesPacks/DayYears UsedDateSmoking Tobacco: Former Comments:Current smoker (richar quency unknown) Alcohol UseStandard Drinks/WeekCommentsNever0 (1 standard drink = 0.6 oz pure alcohol)PHQ-2AnswerDate RecordedPatient Health Questionnaire-2 Jlthn244 Estimated Date of KvqjfvibGfkkcfmsYyk85/28/2025Based on last menstrual period of 11/18/2024 (Approximate)Sex and Gender InformationValueDate RecordedSex Assigned at BirthNot on fileLegal WcdRaugfu29/15/2023 6:47 PM EDTGender Identity Not on fileSexual OrientationNot on filedocumented as of this encounter Plan of Treatment DateTypeDepartmentCare Team (Latest Contact Info)Huwxhjrcprg99/26/2025 2:50 PM ESTOffice Visit [facility] [address] [place] [address] Cydney Aviles PA [address] [facility] [place] [address] documented as of this encounter Goals GoalPatient Goal TypeAssociated ProblemsRecent ProgressPatient-Stated?Author Reminders Care PlanOB RemindersNoOpen Scheduling, Backgrounddocumented as of this encounter Procedures Procedure NamePriorityDate/TimeAssociated DiagnosisCommentsSTREP GP B CULTURE+LYZJDqqjyat33/05/2025 9:27 AM EST documented in this encounter Results * STREP GP B CULTURE+RFLX (08/02/2025 9:27 AM EST)ComponentValueRef RangeTest MethodAnalysis TimePerformed AtPathologist SignatureSTREP GP B CULTURE+RFLX ??Strep Gp B Culture+Rflx TBHSTREP GP B CULTURE+RFLXNegativeTBHSTREP GP B CULTURE+RFLXCenters for Disease Control and Prevention (CDC) andTBHSTREP GP B CULTURE+RFLXAmerican Congress of Obstetricians and GynecologistsTBHSTREP GP B CULTURE+RFLX(ACOG) guidelines for prevention of group BTBHSTREP GP B CULTURE+RFLXstreptococcal (GBS) disease specify co-collection ofTBHSTREP GP B CULTURE+RFLXa vaginal and rectal swab specimen to maximizeTBHSTREP GP B CULTURE+RFLXsensitivity of GBS detection. Per the CDC and ACOG,TBHSTREP GP B CULTURE+RFLXswabbing both the lower vagina and rectumTBHSTREP GP B CULTURE+RFLXsubstantially increases the yield of detectionTBHSTREP GP B CULTURE+RFLXcompared with sampling the vagina alone.TBH STREP GP B CULTURE+RFLXPenicillin G, ampicillin, or cefazolin are indicatedTBH STREP GP B CULTURE+RFLXfor intrapartum prophylaxis of GBSTBHSTREP GP B CULTURE+RFLXcolonization. Reflex susceptibility testing should beTBHSTREP GP B CULTURE+RFLXperformed prior to use of clindamycin only on GBSTBHSTREP GP B CULTURE+RFLXisolates from penicillin-allergic women who areTBHSTREP GP B CULTURE+RFLXconsidered a high risk for anaphylaxis. Treatment withTBHSTREP GP B CULTURE+RFLXvancomycin without additional testing is warranted ifTBHSTREP GP B CULTURE+RFLXresistance to clindamycin is noted.TBHSTREP GP B CULTURE+RFLX Performed at: - [facility] SandgapTBHSTREP GP B CULTURE+[id number] [place], [place] [id number] GP B CULTURE+RFLXLab Director: Bobby Segal PhD, Phone: [phone] (Source)Anatomical Location / Laterality Collection Method / VolumeCollection TimeReceived Time08/02/2025 9:27 AM EST 08/02/2025 3:49 PM EST Narrative [facility] - 08/06/2025 6:09 PM EST Authorizing ProviderResult TypeResult StatusAmy Traci PALAB BLOOD ORDERABLES Final ResultPerforming OrganizationAddressCity/State/ZIP CodePhone Number [facility] documented in this encounter Visit Diagnoses Not on filedocumented in this encounter Additional Health Concerns Active ProblemsNoted DateDiagnosed DateOB Pepzdktlo26/30/2023 documented as of this encounter Care Teams Team MemberRelationshipSpecialtyStart DateEnd Date Roberto Marie MD [address] [place] [address] [facility] - [facility]06/19/23 Devyn Tello DO [address] [place] [address] [place] [address] PCP - [facility]09/28/24documented as of this encounter
--- OUTSIDE RECORDS SUMMARY | 2025-08-18 07:34 | XMS_ITS | Encounter Summary ---
Author Organization [facility] Address [address] [facility] [place] [address] Care Team Providers Care Tool Technician Name Role Phone Roberto Marie MD Primary Care Provider + [phone] Devyn Tello DO Unavailable Encounter Details DateTypeDepartmentCare Team (Latest Contact Info)Awrdxvcftdy63/11/2025Bamboo flowsheet [facility] [address] [facility] [place] [address] Devyn Tello DO [address] [facility] [address] [place], [facility] Social History Tobacco UseTypesPacks/DayYears UsedDateSmoking Tobacco: Former Comments:Current smoker (richar quency unknown) Alcohol UseStandard Drinks/WeekCommentsNever0 (1 standard drink = 0.6 oz pure alcohol)PHQ-2AnswerDate RecordedPatient Health Questionnaire-2 Ddtrf991 Estimated Date of ObwieipvPptfhmdxXub12/28/2025Based on last menstrual period of 11/18/2024 (Approximate)Sex and Gender InformationValueDate RecordedSex Assigned at BirthNot on fileLegal CcmNwdvil27/15/2023 6:47 PM EDTGender Identity Not on fileSexual OrientationNot on filedocumented as of this encounter Plan of Treatment DateTypeDepartmentCare Team (Latest Contact Info)Vplxkciakqr27/26/2025 2:50 PM ESTOffice Visit [facility] [address] [facility] [place] [address] Cydney Aviles PA [address] [facility] [address] [place], [place] [address] documented as of this encounter Goals GoalPatient Goal TypeAssociated ProblemsRecent ProgressPatient-Stated?Author Reminders Care PlanOB RemindersNoOpen Scheduling, Backgrounddocumented as of this encounter Visit Diagnoses Not on filedocumented in this encounter Additional Health Concerns Active ProblemsNoted DateDiagnosed DateOB Lkeiarlqv07/30/2023 documented as of this encounter Care Teams Team MemberRelationshipSpecialtyStart DateEnd Date Roberto Marie MD [address] [place] [address] [facility] - [facility]19/23 Devyn Tello DO [address] [facility] [place] [address] PCP - [facility]09/28/24documented as of this encounter
--- OUTSIDE RECORDS SUMMARY | 2025-08-18 07:34 | XMS_ITS | Clinical Summary ---
Author Organization [facility] Address [address] [place] [address] Care Team Providers Care Rubber Tubing Splicer Name Role Phone Roberto Marie MD Primary Care Provider + [phone] Devyn Tello DO Unavailable Allergies Active AllergyReactionsCriticalityNoted DateCommentsSulfa AntibioticsFever,Hives ,GstbPjf0506/17/2018 Medications MedicationSigDispense QuantityRefillsLast FilledStart DateEnd DateStatus RD-Yzx-[facility] ( GUMMIES/DHA & FA PO) Take 1 each by mouth DailyActive Active Problems ProblemNoted DateDiagnosed DateThird trimester ([facility]) weeks gestation of ([facility])06/20/2025Estimated Date of EyscfpixEmaxivyyMxd02/28/2025Based on last menstrual period of 11/18/2024 (Approximate) Encounters DateTypeDepartmentCare NkhlDvjfcpevkwk18/18/2025 10:10 [place] [address] Cydney Avlies PA 38 weeks gestation of ([facility]); Third trimester ([facility]); Subchorionic hemorrhage of placenta, antepartum ([facility])5Bamboo [place] [address] Cydney Aviles PA 08/14/2025Telephone [facility] [address] [place] [address] Maryam Saul LPN 08/08/2025 10:20 AM ESTRoutine [facility] [address] [place] [address] Devyn Tello DO 37 weeks gestation of ([facility]); Third trimester ([facility]); Subchorionic hemorrhage of placenta, antepartum ([facility])08/08/2025amboo flowsheet [facility] [address] [place] [address] Devyn Tello DO 08/03/20252941Tpyaou67/05/2025 9:30 AM ESTRoutine [facility] [address] [place] [address] Cydney Aviles PA Third trimester ([facility]); 36 weeks gestation of ([facility])08/02/2025linisync Result Encounter [facility] External Department Unsolicited Cydney Aviles PA 08/02/2025amb flowsheet [facility] [address] [place] [address] Cydney Aviles PA 07/26/20251911Mohfnk44/21/2025 9:00 AM EDTRoutine [facility] [address] [place] [address] Devyn Tello DO Third trimester ([facility]); 34 weeks gestation of ([facility])07/18/2025amboo flowsheet [facility] [address] [place] [address] Devyn Tello DO 07/17/20254497Kgnxmx32/14/6982Rgoytp78/08/2025 9:20 AM EDTRoutine [facility] [address] [place] [address] Nichole Stallings, YURI Third trimester ([facility]); 32 weeks gestation of ([facility])07/05/2025amboo flowsheet [facility] [address] [place] [address] Nichole Stallings, YURI 06/29/2025bstract [facility] [address] [place] [address] Cydney Alexis LPN 06/28/20255918Gzujsm53/29/2025Patient Outreach [facility] [address] [place] [address] Cydney Alexis LPN 06/20/2025 9:30 AM EDTRoutine [facility] [address] [place] [address] Devyn Tello DO Third trimester ([facility]); 30 weeks gestation of ([facility])06/20/2025 9:00 AM EDTAncillary Procedure [facility] [address] [place] [address] size inconsistent with dates ([facility])06/13/20257043Qljbch39/09/2025 10:20 AM EDTRoutine [facility] [address] [place] [address] Devyn Tello DO Third trimester ([facility]); 28 weeks gestation of ([facility]); size inconsistent with dates ([facility])06/06/2025amboo flowsheet [facility] [address] [place] [address] Devyn Tello DO 05/26/2025linisync Result Encounter [facility] External Department Unsolicited Cydney Aviles PA from Last 3 Months Family History Medical HistoryRelationNameCommentsCancerMaternal GrandfatherRickprostate Cervical cancerMaternal Grandmotherhigh blood pressureMaternal GrandmotherCancer MotherTracyDiabetesMotherTracyDiabetesMother's SisterTammyLung cancerPaternal GrandmotherRelationNameStatusCommentsMaternal GrandfatherRickMaternal GrandmotherMotherTracyMother's SisterTammyPaternal Grandmother Social History Tobacco UseTypesPacks/DayYears UsedDateSmoking Tobacco: Former Tobacco Cessation:Counseling Given: Not Answered Comments:Current smoker (frequency unknown) Alcohol UseStandard Drinks/WeekCommentsNever0 (1 standard drink = 0.6 oz pure alcohol)PHQ-2AnswerDate RecordedPatient Health Questionnaire-2 Xoude961 Estimated Date of LvkciznqYqmcpijzZss54/28/2025Based on last menstrual period of 11/18/2024 (Approximate)Sex and Gender InformationValueDate RecordedSex Assigned at BirthNot on fileLegal EsiHsdnwh72/15/2023 6:47 PM EDTGender Identity Not on fileSexual OrientationNot on file Last Filed Vital Signs Vital SignReadingTime TakenCommentsBlood Zlmxdoph026/8208/15/2025 10:33 AM EST Pulse--Temperature--Respiratory Rate--Oxygen Saturation--Inhaled Oxygen Concentration--Ailcmc428 kg (229 lb 3.2 oz)08/15/2025 10:33 AM YTWCjuvsi743.1 cm (5' 5 )03/08/2024 11:37 AM EDTBody Mass Index38.14003/08/2024 11:37 AM EDT Plan of Treatment DateTypeDepartmentCare Team (Latest Contact Info)Eygthqzyvdo31/26/2025 2:50 PM ESTOffice Visit [facility] [address] [place] [address] Cydney Aviles PA [address] [place], [place] [address] Health MaintenanceDue DateLast DoneCommentsCOVID-19 Vaccine ( season) 2025Influenza Vaccine (#1)2025Pneumococcal Vaccine: Pediatrics (0 to 5 Years) and At-Risk Patients (6 to 64 Years)Aged OutNo longer eligible based on patient's age to complete this topic Goals GoalPatient Goal TypeAssociated ProblemsRecent ProgressPatient-Stated?Author Reminders Care PlanOB RemindersNoOpen Scheduling, Background Procedures Procedure NamePriorityDate/TimeAssociated DiagnosisCommentsPOCT URINALYSIS ZJIHFJQGTufqfkm44/11/2025 10:54 AM EST 37 weeks gestation of ([facility]) Third trimester ([facility]) POCT URINALYSIS ROLOZWRDIeplwtw55/05/2025 9:46 AM EST Third trimester ([facility]) STREP GP B CULTURE+FMQMIbmgryi98/05/2025 9:27 AM EST POCT URINALYSIS GHLGXZOHQkrvupt57/21/2025 9:22 AM EDT 34 weeks gestation of ([facility]) POCT URINALYSIS JGDISBZVIvwpscp56/08/2025 9:43 AM EDT 32 weeks gestation of ([facility]) POCT URINALYSIS FFMKCAZHEccgdqq29/23/2025 9:36 AM EDT Third trimester ([facility]) 30 weeks gestation of ([facility]) US OB FOLLOW UP TRANSABDOMINAL GQFHCNCDJtaeodx08/23/2025 9:18 AM EDT size inconsistent with dates ([facility]) POCT URINALYSIS VVTKNRIGVpikpkr66/09/2025 10:29 AM EDT Third trimester ([facility]) ALL CBC WITH AUTO GMUSVdbwalh79/29/2025 8:48 AM EDT GLUCOSE 1 ZUPUXjrohcg39/29/2025 8:48 AM EDT from Last 3 Months Results * POCT urinalysis dipstick manually resulted (08/08/2025 10:54 AM EST) Only the most recent of6 resultswithin the time period is included. ComponentValueRef RangeTest MethodAnalysis TimePerformed AtPathologist Signature Color, UAYellowClarity, UAClearGlucose, UANegativeNegative - 2000(110) ++++ mg/dLBilirubin, UANegativeNegative - 4(70) +++ mg/dLKetones, UANegativeNegative - 160(16) ++++ mg/dLSpec Grav, UA1.0101 - 1.03Blood, UANegativeNegative - 50 Cedric/mcLpH, UA6.05 - 9Protein, UANegativeNegative - 2000(20) ++++ mg/dL Urobilinogen, UA1.00.2 - 12 mg/dLLeukocytes, UANegativeNegative - 500+++ Alessandro/mcL Nitrite, UANegativeNegative - PositiveSpecimen (Source)Anatomical Location / LateralityCollection Method / VolumeCollection TimeReceived SonuZbqlh72/11/2025 10:54 AM EST Narrative Authorizing ProviderResult TypeResult StatusCorey Omer DOPOINT OF CARE TEST ENTER/EDIT ORDERABLESFinal Result * STREP GP B CULTURE+RFLX (08/02/2025 9:27 [...] GP B CULTURE+RFLX Performed at: - [facility] C[facility]+[id number] [place], [place] [id number] GP B CULTURE+RFLXLab Director: Bobby Segal PhD, Phone: [phone] (Source)Anatomical Location / Laterality Collection Method / VolumeCollection TimeReceived Time08/02/2025 9:27 AM EST 08/02/2025 3:49 PM EST Narrative [facility] - 08/06/2025 6:09 PM EST Authorizing ProviderResult TypeResult StatusAmy [facility] BLOOD ORDERABLES Final ResultPerforming OrganizationAddressCity/State/ZIP CodePhone Number [facility] * OB follow up transabdominal approach (06/20/2025 9:18 [...] BY: Addi Cain MD Authorizing ProviderResult TypeResult StatusDevyn LOPEZ OB US PROCEDURES Final Result * GLUCOSE 1 HOUR (05/26/2025 8:48 AM EDT)ComponentValueRef RangeTest Method Analysis TimePerformed AtPathologist SignatureGLUCOSE 1 WWFC564<130 mg/dLTBH Specimen (Source)Anatomical Location / LateralityCollection Method / Volume Collection TimeReceived Time05/26/2025 8:48 AM EDT05/26/2025 8:49 AM EDT Narrative [facility] - 05/26/2025 9:03 AM EDT Authorizing ProviderResult TypeResult StatusCydney POPE BLOOD ORDERABLES Final ResultPerforming OrganizationAddressCity/State/ZIP CodePhone Number [facility] * (ABNORMAL) ALL CBC WITH AUTO DIFF (05/26/2025 8:48 AM EDT)ComponentValueRef RangeTest MethodAnalysis TimePerformed AtPathologist SignatureTBH WBC9.64.0 - 11.0 10 3/uLTBHTBH RBC3.68(L)4.20 - 5.40 10 6/uLTBHTBH HGB11.6(L)12.0 - 16.0 g/dLTBHTBH HCT33.9(L)36.0 - 48.0 %TBHTBH MCV92.181.0 - 99.0 fLTBHTBH MCH31.5 26.7 - 34.0 pgTBHTBH MCHC34.229.9 - 35.2 g/dLTBHTBH RDW11.911.0 - 15.0 %TBHTBH GAK464490 - 450 10 3/uLTBHTBH MPV10.89.5 - 13.5 [...] 9:06 AM EDT Authorizing ProviderResult TypeResult StatusAmy [place] PACLINISYNCFinal Result Performing OrganizationAddressCity/State/ZIP CodePhone Number [facility] from Last 3 Months Additional Health Concerns Active ProblemsNoted DateDiagnosed DateOB Msvmurrcs94/30/2023 Insurance * Guarantor: Breonna Reynoso AAccount TypeRelation to PatientDate of PhoneBilling AddressPersonal/ChqzwjTilj[id number] [address] Care Teams Team MemberRelationshipSpecialtyStart DateEnd Date Roberto Marie MD [address] [place] [address] [facility] - [facility] Devyn Tello DO [address] [place] [address] [place] [address] PCP - [facility]09/28/24
[2025-08-18] MEDS: 0.9 % SODIUM CHLORIDE 1,000 ML 1000 ML IV ×2 (08:17→09:14)
[2025-08-18 08:48] LABS: Hematocrit 32.1 % (36.0-48.0); Hemoglobin 10.5 g/dL (12.0-16.0); Immature Granulocytes Abs Auto 0.04 10^3/uL (0.00-0.03); Immature Granulocytes Pct Auto 0.5 % (0.0-0.5); Lymphocytes Absolute Auto 1.4 10^3/uL (1.2-3.8); Mean Corpuscular HGB Conc 32.7 g/dL (29.9-35.2); Mean Corpuscular Hemoglobin 27.5 pg (26.7-34.0); Mean Corpuscular Volume 84.0 fL (81.0-99.0); Platelet Count 251 10^3/uL (150-450); Red Blood Count 3.82 10^6/uL (4.20-5.40); White Blood Count 8.2 10^3/uL (4.0-11.0)
[2025-08-18 08:50] LABS: Glucose Urine UA NEGATIVE (NEGATIVE)
[2025-08-18 08:58] LABS: Cast Seen? NONE SEEN #/LPF (NONE SEEN); Crystals Seen? None Seen #/HPF (None Seen); Urine Culture Indicated YES-FRMC
[2025-08-18 09:02] LABS: Cannabinoid Screen Urine NEGATIVE (NEGATIVE); Methamphetamines Screen Urine NEGATIVE (NEGATIVE); Tricyclic Antidepressant Urine NEGATIVE (NEGATIVE)
[2025-08-18] MEDS: METOCLOPRAMIDE HCL 10 MG/2 ML VIAL IVP (09:07)
[2025-08-18] MEDS: FAMOTIDINE/PF 20 MG/2 ML VIAL IV (09:07)
[2025-08-18] MEDS: CITRIC ACID/SODIUM CITRATE 30 ML SOLUTION ORACIT SHOHL'S SOLN PO (09:07)
[2025-08-18] MEDS: CEFAZOLIN SODIUM/DEXTROSE,ISO 2 GM/50 ML PIGGYBACK IV ×2 (10:29→16:50)
--- NOTE | 2025-08-18 11:45 | P.ON_ITS ---
Brief Operative Note Date of procedure: 08/18/25 Pre-op diagnosis general: iup at term gestation, previous c/s Post-op diagnosis: same as pre-op Procedure: NAME OF PROCEDURE: [ section ] PROCEDURE: Patient was taken back to the Operating Room where she was given a spinal anesthesia with Duramorph without difficulty. She was prepped and draped in the normal sterile fashion. A Pfannenstiel skin incision was then made 2 cm above the symphysis pubis and carried down to underlying rectus fascia using a Bovie. The fascia was incised in the midline and extended laterally using Summers scissors. Two Edilberto clamps were placed on the superior aspect of the fascia and dissected off the underlying rectus muscles. The same was performed on the inferior aspect as well. The muscles were then in the midline. Peritoneum was identified and entered bluntly. The peritoneum was then extended superiorly and inferiorly with good visualization of the bladder. The bladder blade was inserted. A low transverse incision was made on the patient's uterus and extended laterally digitally. The was then delivered atraumatically after the bladder blade was removed in the cephalic position. The cord was clamped and cut. Cord blood was obtained. The was handed off to awaiting team. The patient's placenta was spontaneously delivered. The uterus was then exteriorized. The uterus was cleared of all clots and debris. The bladder blade was reinserted. The patient's uterine incision was closed using #0 Vicryl in a running lock fashion. Excellent hemostasis was assured. The uterus was then returned to the patient's abdomen. The patient's abdomen was copiously irrigated using warm saline. Peritoneal gutters were cleared of all clots and debris. Again excellent hemostasis was assured. The patient's peritoneum was closed using 3-0 Vicryl in a running fashion. The patient's fascia was closed using #0 Vicryl in a running fashion. The patient's skin was closed using 4-0 Vicryl subcuticularly. The patient tolerated the procedure well. Sponge, lap, and needle counts were correct x2. The patient was taken to the Recovery Room in stable condition. Anesthesia: spinal Surgeon: Devyn Tello Traffic Maintenance Supervisor: Leigh Styles Estimated blood loss (mL): 575 Pathology: none sent Condition: stable Disposition: floor Urinary Catheter Management Urinary Catheter Management Urethral: Cath placed during this visit: no
--- NOTE | 2025-08-18 11:46 | P.OBPRC_ITS ---
Procedure Pre-op/Post-op diagnoses: Pre-Op/Post-Op Diagnoses Operation Date: 08/18/25 09:30 <No data on this case meets the specified criteria> Procedure: Procedures Operation Date: 08/18/25 09:30 Actual Procedure Side Surgeon p Repeat Not Applicable Devyn Tello DO Discharge Specialist: Leigh Styles Estimated blood loss (mL): 575 Disposition: floor Anesthesia type: Spinal
[2025-08-18] MEDS: ENOXAPARIN SODIUM 40 MG/0.4 ML SYRINGE SUBQ (22:42)
[2025-08-19 00:13] VITALS: BP 129/73; TEMP 36.5
[2025-08-19] MEDS: KETOROLAC TROMETHAMINE 30 MG/ML VIAL IVP ×2 (00:31→06:53)
[2025-08-19 04:42] VITALS: BP 126/78; TEMP 36.5
[2025-08-19 06:36] LABS: Hematocrit 27.3 % (36.0-48.0); Hemoglobin 8.6 g/dL (12.0-16.0); Immature Granulocytes Abs Auto 0.06 10^3/uL (0.00-0.03); Immature Granulocytes Pct Auto 0.6 % (0.0-0.5); Lymphocytes Absolute Auto 1.1 10^3/uL (1.2-3.8); Mean Corpuscular HGB Conc 31.5 g/dL (29.9-35.2); Mean Corpuscular Hemoglobin 26.7 pg (26.7-34.0); Mean Corpuscular Volume 84.8 fL (81.0-99.0); Platelet Count 236 10^3/uL (150-450); Red Blood Count 3.22 10^6/uL (4.20-5.40); White Blood Count 9.9 10^3/uL (4.0-11.0)
--- NOTE | 2025-08-19 07:22 | PM.OBPN ---
OB - PN: Subj Subjective Patient comments: no complaints [place] status: doing well Exam Constitutional Vital Signs, click to edit/add: Last Vital Signs Temp 97.7 F 08/19/25 04:42 Pulse 86 08/18/25 14:40 Resp 18 08/19/25 04:55 BP 126/78 08/19/25 04:42 Pulse Ox 97 08/18/25 14:43 O2 Del Method Room Air 08/19/25 04:55 Common normals: no apparent distress GI Common normals: soft to palpation and non-tender Other: fundus - firm below umbilicua Incision - dry and intact with steri strips Other: minimal bleeding Extremity Common normals: normal to inspection Neuro Common normals: oriented x3 Psych Common normals: mental status grossly normal Results Labs Labs: Short CBC 08/18/25 08/19/25 Range/Units 08:10 06:21 WBC 8.2 9.9 (4.0-11.0) 10^3/uL Hgb 10.5 L 8.6 L (12.0-16.0) g/dL Hct 32.1 L 27.3 L (36.0-48.0) % Plt Count 251 236 (150-450) 10^3/uL Urine 08/18/25 Range/Units 08:30 Urine Color Yellow (YELLOW) Urine Clarity Clear (CLEAR) Urine pH 6.5 (5.0-9.0) Ur Specific [place] 1.025 (1.005-1.025) Urine Protein Trace (NEG/TRACE) mg/dL Urine Glucose (UA) Negative (NEGATIVE) mg/dL Urinary Catheter Management Urinary Catheter Management Urethral: Cath placed during this visit: yes, but has since been removed by the nurse Removal date: 08/18/25 Removal time: 16:30 OB - PN: A/P Assessment and Plan (1) Term delivered: Plan - day: 1 Plan: routine postop care Comment: post op Hgb - 8.6 - asymptomatic, doing well Time Spent with Patient Time: Total time spent is greater than 50% in coordination of care (as documented) at patient's floor/unit and/or counseling patient: Total time spent with greater than 50% in coordination of care (as documented) at patient's floor/unit and/or counseling patient: less than 15 minutes
[2025-08-19] MEDS: DOCUSATE SODIUM 100 MG CAPSULE PO ×2 (08:20→20:59)
[2025-08-19 08:23] VITALS: BP 128/61; TEMP 36.8; O2SAT 98
[2025-08-19] MEDS: IBUPROFEN 400 MG TABLET 800 MG PO ×2 (12:44→20:59)
[2025-08-19 15:26] VITALS: BP 140/60; PULSE 78; TEMP 36.6; O2SAT 98
[2025-08-19 23:12] VITALS: BP 131/79
[2025-08-19] MEDS: ENOXAPARIN SODIUM 40 MG/0.4 ML SYRINGE SUBQ (23:15)
[2025-08-19 23:56] VITALS: BP 131/79; PULSE 71; TEMP 36.6; O2SAT 99
[2025-08-20] MEDS: IBUPROFEN 400 MG TABLET 800 MG PO (07:51)
[2025-08-20] MEDS: DOCUSATE SODIUM 100 MG CAPSULE PO (07:51)
--- NOTE | 2025-08-20 08:02 | PM.OBPN ---
OB - PN: Subj Subjective Patient comments: no complaints [place] status: doing well Exam Constitutional Vital Signs, click to edit/add: Last Vital Signs Temp 97.8 F 08/19/25 23:56 Pulse 71 08/19/25 23:56 Resp 16 08/19/25 23:56 BP 131/79 08/19/25 23:56 Pulse Ox 99 08/19/25 23:56 O2 Del Method Room Air 08/19/25 23:56 Common normals: no apparent distress GI Inspection: normal to inspection Other: fundus firm below umbilicus Other: minmal bleeding Extremity Common normals: full ROM Neuro Common normals: oriented x3 Psych Common normals: mental status grossly normal Urinary Catheter Management Urinary Catheter Management Urethral: Cath placed during this visit: yes, but has since been removed by the nurse Removal date: 08/18/25 Removal time: 16:30 OB - PN: A/P Assessment and Plan (1) Term delivered: Plan - day: 2 Plan: discharge home Time Spent with Patient Time: Total time spent is greater than 50% in coordination of care (as documented) at patient's floor/unit and/or counseling patient: Total time spent with greater than 50% in coordination of care (as documented) at patient's floor/unit and/or counseling patient: less than 15 minutes
--- NOTE | 2025-08-20 08:04 | PM.OBDS ---
DS: Providers Provider Date of admission: 08/18/25 07:28 Primary care physician: Non-Staff Physician, Admitting clinician: Devyn Tello Attending physician on admission: Devyn Tello Attending physician on discharge: Devyn Tello Discharging clinician: Angelina Cornelius Anticipated date of discharge: 08/20/25 DS: Diagnosis Discharge Diagnosis (1) Term delivered: Plan home follow up as scheduled OB - DS: Summary Hospital Course Hospital Course: normal course Peripartum Data - Procedures: Procedures Operation Date: 08/18/25 09:30 Actual Procedure Side Surgeon p Repeat Not Applicable Devyn Tello DO Peripartum Data - Vaginal Delivery Procedures: Procedures Operation Date: 08/18/25 09:30 Actual Procedure Side Surgeon p Repeat Not Applicable Devyn Tello DO Complications complications: none Infant Delivery method: section Gender: female Discharge plan: home Status at Discharge Functional status at discharge: independent ambulation Overall status at discharge: patient is progressing back to baseline Time Spent with Patient Time attestation: Total time spent providing and/or coordinating discharge services: Time spent: less than 30 minutes Exam Constitutional Vital Signs, click to edit/add: Last Vital Signs Temp 97.8 F 08/19/25 23:56 Pulse 71 08/19/25 23:56 Resp 16 08/19/25 23:56 BP 131/79 08/19/25 23:56 Pulse Ox 99 08/19/25 23:56 O2 Del Method Room Air 08/19/25 23:56 DS: Data Data Completed and Pending Labs on day of discharge: Preliminary micro results at discharge 08/18/25 08:30 Urine Culture - Preliminary Urine,Clean Catch Pending - Specimen sent to [facility] Discharge Plan Discharge Disposition: Home, Self-Care Discharge Medications: New ibuprofen 800 mg tablet 800 mg PO Q8H PRN (Reason: pain) 14 Days Qty: 40 0RF oxycodone-acetaminophen [Percocet] 5-325 mg tablet 1 tab PO Q6H PRN (Reason: pain) 5 Days Qty: 20 0RF Rx Instructions: g89.18 Continued prenat.vits,ladonna,rys-oild-fagdm Tablet 1 tab PO DAILY Activity: increase activity as tolerated Activity Detail: nothing per vagina for 6 weeks Diet: advance to your usual diet Print Language: Slovenian Forms: Portal Instructions Follow Up Appointments: as scheduled
[2025-08-20 08:16] VITALS: O2SAT 98
[2025-08-20 08:17] VITALS: BP 130/68; PULSE 96
== END 2025-08-20 12:00 | disposition home or self-care (01) | DRG 540 ==
PROVIDERS: Admitting Provider Obstetrics & Gynecology; Visit Provider Obstetrics & Gynecology
PROC: 10D00Z1 Extraction of Products of Conception, Low, Open Approach (ICD-10-PCS; CPT 59514; principal; 2025-08-18 09:30)
DX: O34.211 Maternal care for low transverse scar from previous cesarean delivery (principal); Z3A.39 39 weeks gestation of pregnancy; Z37.0 Single live birth; O99.334 Smoking (tobacco) complicating childbirth; F17.290 Nicotine dependence, other tobacco product, uncomplicated
CPT/HCPCS: 36415; 80307; 81001; 85025; 86850; 86900; 86901; 87086; 94667; 94668; J0690; J1650; J1885; J2274; J2371; J2405; J2590; J2765; J3490

== ENCOUNTER 2025-08-27 17:38 | Emergency (ER) | payer OTHER, SELFPAY ==
[2025-08-27 17:42] VITALS: BP 145/97; PULSE 102; TEMP 36.7; O2SAT 100; BMI 33.7
--- NOTE | 2025-08-27 17:58 | PC.NURSE ---
red raised rash to groin area, pt c/o itching. ER Dr assessment complete in triage room with nurse present. ER DR assessed and explained plan to pt and pt verbalized understanding.
--- NOTE | 2025-08-27 17:59 | ED.GENADUL1 ---
HPI HPI - General Adult General Chief complaint: Skin/Abscess/Foreign Body Stated complaint: hives Time Seen by Provider: 08/27/25 17:50 Source: patient Mode of arrival: walk-in History of Present Illness HPI narrative: 24-year-old female presents for rash. It is in her bilateral groin and in the very low abdomen. 9 days ago she had a and then developed this rash which has had a mildly foul smell and has been weeping. She was put on a Medrol Dosepak and had a single dose of Diflucan. She states it was getting a little bit better but then got worse again. She reports that this area has been quite moist. Related Data Home Medications ?Medication ?Instructions ?Recorded ?Confirmed prenat.vits,ladonna,[id number] 1 tab PO DAILY 02/07/25 08/19/25 Previous Rx's ?Medication ?Instructions ?Recorded ibuprofen 800 mg tablet 800 mg PO Q8H PRN pain 14 days #40 08/18/25 tabs oxycodone-acetaminophen 5 mg-325 1 tab PO Q6H PRN pain 5 days #20 08/18/25 mg tablet (Percocet) tabs clotrimazole-betamethasone 1 1 applic topical BID #45 grams 08/27/25 %-0.05 % topical cream fluconazole 100 mg tablet 100 mg PO DAILY #7 tabs 08/27/25 prednisone 10 mg tablet See Rx Instructions .Route 08/27/25 .COMPLEX #30 tabs Allergies Allergy/AdvReac Type Severity Reaction Status Date / Time Sulfa (Sulfonamide Allergy Intermediate Rash Verified 08/18/25 09:23 Antibiotics) Opioid HPI Opioid Management Most Recent Opioid Data: Last Pain Scale 7 08/20/25, 07:51 Ur Phencyclidine Scrn, (NEGATIVE) Negative 08/18/25, 08:30 Review of Systems ROS Narrative A ten point review of systems is negative except as noted above. PFSH PFSH Surgical History (Updated 02/02/24 @ 00:00 by ) Delivery by section Social History Little interest or pleasure in doing things: not at all Feeling down, depressed, or hopeless: not at all Exam Narrative Exam Narrative: Nurses note and vital signs reviewed General:The patient appears well and in no apparent distress.Patient is upright on a chair. Skin:Warm, dry, no pallor noted.There is fluid erythema in the bilateral groin area. No open area or purulent drainage. site is healing quite well, no dehiscence or drainage. Head:Normocephalic, atraumatic Eye: Normal conjunctiva, no drainage Ears, Nose, Mouth, and Throat: oral mucosa is moist. Nares patent. Cardiovascular:Regular Rate and Rhythm Respiratory:Patient is in no distress, no accessory muscle use Back:non-tender GI:Normal bowel sounds, no tenderness to palpation, no masses appreciated.No rebound, guarding, or rigidity noted. Musculoskeletal: No joint swelling Neurological:A&O, normal speech Psychiatric:Cooperative Constitutional Vital Signs, click to edit/add: Last Vital Signs Temp 98.1 F 08/27/25 17:42 Pulse 102 H 08/27/25 17:42 Resp 18 08/27/25 17:42 BP 145/97 H 08/27/25 17:42 Pulse Ox 100 08/27/25 17:42 O2 Del Method Room Air 08/27/25 17:42 Course Vital Signs Vital signs: Vital Signs Temperature 98.1 F 08/27/25 17:42 Pulse Rate 102 H 08/27/25 17:42 Respiratory Rate 18 08/27/25 17:42 Blood Pressure 145/97 H 08/27/25 17:42 Pulse Oximetry 100 08/27/25 17:42 Oxygen Delivery Method Room Air 08/27/25 17:42 Temperature 98.1 F 08/27/25 17:42 Pulse Rate 102 H 08/27/25 17:42 Respiratory Rate 18 08/27/25 17:42 Blood Pressure 145/97 H 08/27/25 17:42 Pulse Oximetry 100 08/27/25 17:42 Oxygen Delivery Method Room Air 08/27/25 17:42 Medical Decision Making MDM Narrative Medical decision making narrative: My clinical impression is that she has tinea cruris. She is prescribed oral Diflucan, topical Lotrisone and oral prednisone. Treatment diagnosis and follow-up were discussed with the patient. I do not suspect cellulitis. Differential Diagnosis Differential Diagnosis: Tinea cruris, cellulitis Discharge Plan Discharge Chief Complaint: Skin/Abscess/Foreign Body Clinical Impression: Tinea cruris Patient Disposition: Home, Self-Care Time of Disposition Decision: 17:57 Condition: Good Mode of Transportation: Private Vehicle Prescriptions / Home Meds: New prednisone 10 mg tablet See Rx Instructions .ROUTE .COMPLEX Qty: 30 0RF Rx Instructions: 4 by mouth daily for three days then 3 by mouth daily for three days then 2 by mouth daily for three days then 1 by mouth daily for three days clotrimazole-betamethasone 1-0.05 % cream 1 applic topical BID Qty: 45 0RF fluconazole 100 mg tablet 100 mg PO DAILY Qty: 7 0RF No Action prenat.vits,ladonna,[id number] Tablet 1 tab PO DAILY ibuprofen 800 mg tablet 800 mg PO Q8H PRN (Reason: pain) 14 Days Qty: 40 0RF oxycodone-acetaminophen [Percocet] 5-325 mg tablet 1 tab PO Q6H PRN (Reason: pain) 5 Days Qty: 20 0RF Rx Instructions: g89.18 Print Language: Armenian Instructions: Skin Yeast Infection (ED) Referrals: Physician,Non-Staff, MD [Primary Care Provider] - 1 week
--- OUTSIDE RECORDS SUMMARY | 2025-08-27 18:04 | XMS_ITS | CCD ---
Author Organization [facility] Inform ion Partnership [facility] Care Team Providers Care Receptionist Secretary Name Role Phone Deonna Back Unavailable OSCAR, ADRYAN Primary Care Physician [phone] LESLEY, DR LUIS ANTONIO Jorge Consulting Unavailable [...] Allergen(s)Allergy TypeDate of OnsetReaction(s) Facility (3 sources)[facility]amideD[facility] [employer] Other (1 source)Sulfonamides (Antibiotic); Translations: [sulfa drugs]Drug allergy Hyperpyrexia (finding)[facility] (1 source)Sulfonamides (Antibiotic)Drug allergy (disorder)12-59-8765[facility] (20 sources)Sulfonamides (Antibiotic)Drug Sokmpnimemh56-46-8082Ovqil, Hives, RashNOMS Healthcare Work Phone: Medications Current Medications MedicationDrug Class(es)DatesSig (Normalized)Sig (Original)citalopram 20 mg oral tablet (13 sources)Serotonin Reuptake InhibitorStart: 04-14-2024 End: 72-01-4262zbjn 1 tablet by mouth once dailycitalopram (CeleXA) 20 MG tablet Indications: Post depression (CMS/HCC) Take 1 tablet (20 mg) by mouth Daily 90 tablet 3 11/30/2024 11/25/2025 ActiveEthinyl Estradiol / Ferrous fumarate / Norethindrone (11 sources)EstrogenStart: 75-83-3007Tjjmbtuf FE 10/17 1-20 MG-MCG tablet 12/06/2024 ActiveStart: 05-12-2024 End: 23-35-2979rvps 1 tablet by mouth once daily, then take 1 tablet by mouth once dailynorethindrone-ethinyl estradiol (10/17) 1-20 MG-MCG tablet Indications: Encounter for initial prescription of contraceptive pills Take 1 tablet by mouth Daily for 28 days Take 1 tablet by mouth daily 28 tablet 05/12/2024 11/01/2024 Discontinued (Other)Start: 94-70-3955vtly 1 tablet by mouth once daily, then take 1 tablet by mouth once dailynorethindrone-ethinyl estradiol (10/17) 1-20 MG-MCG tablet Indications: Encounter for initial prescription of contraceptive pills Take 1 tablet by mouth Daily for 28 days Take 1 tablet by mouth daily 28 tablet 05/12/2024 Activefluticasone propionate 0.05 mg/actuat metered dose nasal spray (2 sources)CorticosteroidStart: 39-89-8290fjyw 2 spray(s) nasal route once daily Fluticasone Propionate 50 MCG/ACT 2 sprays Nasally Once a day for 14 day(s) Mar, ActiveIbuprofen (3 sources)Nonsteroidal Anti-inflammatory DrugIbuprofen ActiveOndansetron (2 sources)Serotonin-3 Receptor AntagonistZofran ActivepredniSONE 20 mg oral tablet (5 sources)Start: 35-06-3154uodu 1 tablet by mouth every twelve hourspredniSONE 20 MG 1 tablet Orally 2 times a day for 5 day(s) Mar, ActivePrenatal MV & Min w/FA-DHA ([facility]) 0.4-25 MG chewable tablet (3 sources)Start: 01-97-2467Ypezxusn MV & Min w/FA-DHA ([facility]) 0.4- 25 MG chewable tablet CHEW 1 GUMMY BY MOUTHEVERY MORNING 0 10/06/2023 Active BW-Uxn-GC-Embudo-3 ( GUMMIES/DHA & FA PO) (20 sources) YB-Kcx-IV-Embudo-3 ( GUMMIES/DHA & FA PO) Take 1 each by mouth Daily Active Completed/Discontinued Medications MedicationDrug Class(es)DatesSig (Normalized)Sig (Original)[id number] 200 actuat albuterol 0.09 mg/actuat metered dose inhaler (3 sources)beta2-Adrenergic AgonistStart: 22-29-7298unes 2 puff(s) by inhalation every four to six hours as neededProAir HFA 108 (90 Base) MCG/ACT 2 puffs as needed Inhalation every 4-6 hrs January, Not-Takingamoxicillin 500 mg oral capsule (6 sources)Penicillin-class AntibacterialStart: 52-74-1260ulhu 1 capsule by mouth every eight hoursAmoxicillin 500 MG 1 capsule Orally three times a day for 10 day(s) Mar, Not-TakingStart: 12-14-9999nrqh 1 tablet by mouth every eight hoursAmoxicillin 875 MG 1 tablet Orally every 8 hrs for 10 day(s) January, Not-Takingazithromycin 250 mg oral tablet (6 sources)Macrolide AntimicrobialStart: 03-08-2024 End: 77-60-7488bbvfkrqmmtxu (Zithromax Z-Darren) 250 MG tablet Indications: Upper respiratory tract infection, unspecified type As directed 6 tablet 03/08/2024 08/29/2024 DiscontinuedBrompheniramine / Pseudoephedrine (3 sources)alpha-Adrenergic AgonistStart: 18-94-7123waup 5 mL by mouth every six hours as neededBromfed DM 30-2-10 MG/5ML 5 ml as needed Orally every 6 hrs January, Not-TakingdiphenhydrAMINE hydrochloride 25 mg oral capsule (6 sources)Histamine-1 Receptor AntagonistStart: 03-29-2024 End: 39-51-2039nupt 1 capsule by mouth every six hoursdiphenhydrAMINE (Benadryl Allergy) 25 MG capsule Indications: Allergy, initial encounter Take 1 capsule (25 mg) by mouth every 6 (six) hours if needed for itching for up to 10 days 30 capsule 03/29/2024 08/29/2024 Discontinuedethinyl estradiol 0.035 mg / norgestimate 0.25 mg oral tablet (6 sources)Progestin, EstrogenStart: 04-14-2024 End: 45-19-3332ohbw 1 tablet by mouth once daily, then take 1 tablet by mouth once dailynorgestimate-ethinyl estradiol (Sprintec 28) 0.25-35 MG-MCG tablet Indications: Surveillance for control, oral contraceptives Take 1 tablet by mouth Daily Take 1 tablet by mouth daily 90 cghzwv4804/14/2024 08/29/2024 Discontinuedhydrocortisone 10 mg/ml / neomycin 3.5 mg/ml / polymyxin b 88273 unt/ml otic suspension (3 sources)Aminoglycoside Antibacterial, Polymyxin-class Antibacterial, CorticosteroidStart: 00-78-7385Ssyghiun-Polymyxin-HC 3.5-54462-0 3 drops left ear Three times a day for 7 days Mar, Not-Takingmupirocin 0.02 mg/mg topical ointment (3 sources)RNA Synthetase Inhibitor AntibacterialStart: 30-68-2743Wafdwuiyb 2 % 1 application to affected area Externally once per day for 7 days January, Not-TakingPrenatal GC-Tbg-VP-Embudo-3 ( Gummies/DHA & FA) 0.4-32.5 MG chewable tablet (5 sources)Start: 06-19-2023 End: 14-60-7224Ntyratcl GY-Ydt-MG-Embudo-3 ( Gummies/DHA & FA) 0.4-32.5 MG chewable tablet Indications:Missed menses Chew 32.5 mg in the morning. 30 tablet 11 06/19/2023 11/26/2023 DiscontinuedStart: 06-19-2023 End: 17-36-8143Ycxfpcsv QC-Arw-UO-Embudo-3 ( Gummies/DHA & FA) 0.4-32.5 MG chewable tablet Indications:Missed menses Chew 32.5 mg in the morning. 30 tablet 06/19/2023 06/18/2024 Active Problems Active Problems Problem ClassificationProblemDateDocumented DateEpisodic/ChronicAbdominal pain (5 sources)Unspecified abdominal pain; Translations: [Pelvic and perineal pain] Onset: 70-55-5312AbuhcyueRxvsdrik reactions (1 source)Allergy, unspecified, initial encounter; Translations: [ALLERGY UNSPECIFIED INITIAL ENCNTR]Onset: 37-60-1461IrcoysnpNhungmawkn associated with dizziness or vertigo (3 sources)Dizziness and giddiness; Translations: [Dizziness and giddiness] Onset: 04-09-2022 Resolved: 34-84-3990OtgxffpyDjkhl and electrolyte disorders (1 source)Hypokalemia; Translations: [HYPOKALEMIA]Onset: 28-89-7283Thiymhsv Gastrointestinal hemorrhage (4 sources)Hematemesis; Translations: [HEMATEMESIS]Onset: 32-10-6338Ulzvmrpt Genitourinary symptoms and ill-defined conditions (2 sources)Urinary symptoms ; Translations: [Unspecified symptoms and signs involving the genitourinary system]22-20-0974KekvnjhmZtlsghff; including migraine (1 source)Headache; Translations: [Headache, unspecified]Onset: 04-12-2022 EpisodicHeadache; including migraine (4 sources)Headache; including migraine; Translations: [HEADACHE UNSPECIFIED] Onset: 40-30-8169Qamqbqvuwb during ; abruptio placenta; placenta previa (2 sources)Subchorionic hematoma; Translations: [Other antepartum hemorrhage, unspecified trimester]47-52-7393OlcwntfyBedodwpbmmqrx and screening for infectious disease (4 sources)Exposure to sexually transmissible disorder; Translations: [Contact with and (suspected) exposure to infections with a predominantly sexual mode of transmission]90-99-8727ZfwhordqKewtkkhuz disorders (4 sources)Dysmenorrhea, unspecified; Translations: [Missed period]Onset: 101352-10-6989HqmmhawRunbsnnkqcicz mental health disorders (4 sources) depression; Translations: [ depression] 26-48-3245NnghhkvhXlrwt complications of (2 sources)Excessive growth affecting management of mother; Translations: [Maternal care for excessive growth, third trimester, not applicable or unspecified]35-18-1307OwihncioVpdlq complications of (2 sources) size does not accord with dates; Translations: [Uterine size- date discrepancy, unspecified trimester]56-71-5374KqarrcpyUscah female genital disorders (1 source)Unspecified dyspareunia; Translations: [UNSPECIFIED DYSPAREUNIA]Onset: 18-12-1916SzgrtwdMqxjs female genital disorders (2 sources)Vaginal discharge; Translations: [Other specified noninflammatory disorders of vagina]15-57-8664QcynprotCkrit gastrointestinal disorders (5 sources)Diarrhea, unspecified; Translations: [DIARRHEA UNSPECIFIED]Onset: 26-64-5729KmscpyejQowqw and delivery including normal (20 sources)Third trimester ; Translations: [Encounter for supervision of normal , unspecified, third trimester]Onset: EpisodicOther screening for suspected conditions (not mental disorders or infectious disease) (4 sources)Patient encounter status; Translations: [Encounter for other specified screening]77-42-8990TfxcxvrfWxxnb skin disorders (5 sources)Rash and other nonspecific skin eruption; Translations: [RASH OTH NONSPECIFIC SKIN ERUPTION]Onset: 52-37-3802LjcgfhweNgqauyen codes; unclassified (1 source)Gestation period, 9 weeks; Translations: [9 weeks gestation of ]60-57-5593UutmqrmbLwbuttuw codes; unclassified (2 sources)Gestation period, 17 weeks; Translations: [17 weeks gestation of ]46-21-8238WahlhqlpCjyaphqu codes; unclassified (2 sources)Gestation period, 21 weeks; Translations: [21 weeks gestation of ]29-03-9690ZxbmikoyAkvvfpxf codes; unclassified (2 sources)Gestation period, 24 weeks; Translations: [24 weeks gestation of ]39-88-4134IvftasauOuqjgqoj codes; unclassified (2 sources)Gestation period, 28 weeks; Translations: [28 weeks gestation of ]01-77-3238GmhjegiuYoozwukd codes; unclassified (20 sources)Gestation period, 30 weeks; Translations: [30 weeks gestation of ]Onset: 621068-66-7843CbrnfytfEgugxoia codes; unclassified (2 sources)Gestation period, 32 weeks; Translations: [32 weeks gestation of ]39-26-5207NoyiqmvmSabokujt codes; unclassified (2 sources)Gestation period, 34 weeks; Translations: [34 weeks gestation of ]65-55-7666NqyxicrmHdkfbznw codes; unclassified (2 sources)Gestation period, 36 weeks; Translations: [36 weeks gestation of ]35-92-8721YkhtkzvcEdfzllmoy-related disorders (2 sources)Nicotine dependence, other tobacco product, uncomplicated; Translations: [Nicotine dependence, cigarettes, uncomplicated]Onset: 08-14-2022 ChronicUnclassified (1 source)CONTACT W/AND (SUSP) EXPOS COVID-19; Translations: [CONTACT W/AND (SUSP) EXPOS COVID-19]Onset: 87-91-4948Utlkzssffpol (20 sources)OB RemindersOnset: 626018-79-9702 Past or Other Problems Problem ClassificationProblemDateDocumented DateEpisodic/ChronicNausea and vomiting (3 sources)Nausea with vomiting, unspecified; Translations: [NAUSEA WITH VOMITING UNSPECIFIED]Onset: 36-09-6291UvmakzvkZnnatqpbmdjvf gastroenteritis (1 source)Noninfective gastroenteritis and colitis, unspecified; Translations: [NONINFECTIVE GE AND COLITIS UNS]Onset: 27-05-1945XedovfwyXvqud ear and sense organ disorders (1 source)Unspecified acute noninfective otitis externa, left earOnset: 04-02-2022 Resolved: 23-68-6394Opppyjvt Results Test NameValueInterpretationReference RangeFacilitySTREP GP B CULTURE+RFLXon 36-54-4854IZZFL GP B CULTURE+RFLX Strep Gp B Culture+Rflx [...] HealthcareSTREP GP B CULTURE+RFLXPerformed at: - [facility] PageNOWI HealthcareSTREP GP B CULTURE+[id number] [place], [place] [id number] HealthcareSTREP GP B CULTURE+RFLXLab Director: Bobby Segal PhD, Phone: [phone] HealthcareCLINISYNCNINSPIRE SPECIAL[facility] HealthcareUrinalysis macro (dipstick) panel (U)on 22-49-0976Rnlxeylrc, UANegativeNegative - 4(70) +++ mg/dLNOMS HealthcareBlood, UANegativeNegative - 50 Cedric/mcLNOWI HealthcareClarity, UAClearNOMS Healthcare Color, UAYellowNOMS HealthcareGlucose, UANegativeNegative - 2000(110) ++++ mg/dL [facility] HealthcareInterpretation and review of laboratory resultsNormalNOWI HealthcareKetones, UANegativeNegative - 160(16) ++++ mg/dLNOWI Healthcare Leukocytes, UANegativeNegative - 500+++ Alessandro/mcLNOWI HealthcareNitrite, UA NegativeNegative - PositiveNOMS HealthcarepH, UA6.05 - 9NOMS HealthcareProtein, UANegativeNegative - 2000(20) ++++ mg/dLNOMS HealthcareSpec Grav, UA1.0151 - 1.03NOMS HealthcareUrobilinogen, UA0.20.2 - 12 mg/dLNOWI HealthcareNOWI HealthcareUrinalysis macro (dipstick) panel (U)on 09-18-0639Swznmezgq, UA NegativeNegative - 4(70) +++ mg/dLNOMS HealthcareBlood, [...] mg/dLNOMS HealthcareNOMS HealthcareUrinalysis macro (dipstick) panel (U)on 27-61-4571Rtlhrzrjv, UANegativeNegative - 4(70) +++ mg/dL NOMS HealthcareBlood, UANegativeNegative - 50 Cedric/mcLNOMS HealthcareClarity, UA ClearNOMS HealthcareColor, UAYellowNOMS HealthcareGlucose, UANegativeNegative - 2000(110) ++++ mg/dLNOMS HealthcareInterpretation and review of laboratory resultsNormalNOMS HealthcareKetones, UANegativeNegative - 160(16) ++++ mg/dLNOMS HealthcareLeukocytes, UANegativeNegative - 500+++ Alessandro/[facility] CenterNOMS HealthcareNitrite, UANegativeNegative - PositiveNOMS HealthcarepH, UA6.55 - 9N[facility] Protein, UANegativeNegative - 2000(20) ++++ mg/dLNOMS HealthcareSpec Grav, UA 1.0051 - 1.03NOMS HealthcareUrobilinogen, UA2.00.2 - 12 mg/dLNOMS HealthcareNOMS HealthcareUS OB FOLLOW UP TRANSABDOMINAL APPROACHon 16-06-3814SF OB FOLLOW UP TRANSABDOMINAL APPROACHFINDINGS: Comparison made [...] Delivery: 08/25/25 Gestational Age as of 06/06/2025: 41v6bZvasgrxprl macro (dipstick) panel (U) Ordered By: Belen Vera on 71-09-4104Xxqrawzfx, UANegativeNegative - 4(70) +++ mg/dLNOMS HealthcareBlood, UANegativeNegative [...] ++++ mg/dLNOMS HealthcareInterpretation and review of laboratory resultsNormalNOWI Healthcare Ketones, UANegativeNegative - 160(16) ++++ mg/dLNOMS HealthcareLeukocytes, UA NegativeNegative - 500+++ Alessandro/mcLNOMS HealthcareNitrite, UANegativeNegative - PositiveNOMS HealthcarepH, UA75 - 9NOMS HealthcareProtein, UANegativeNegative - 1999(20) ++++ mg/dLNOMS HealthcareSpec Grav, UA1.011 - 1.03NOWI Healthcare Urobilinogen, UA0.20.2 - 12 mg/dLNOMS Pomerene HospitalNOWI HealthcareGLUCOSE 1 HOURon 20-31-4696Hbsbulz [Mass/Vol]101 mg/dLNINF - 130 mg/dLNOMS HealthcareCLINISYNC NOMS HealthcareUrinalysis macro (dipstick) panel (U)on 14-31-4596Ntontwxqo, UA NegativeNegative - 4(70) +++ mg/dLNOMS HealthcareBlood, UANegativeNegative - 50 Cedric/mcLNOMS HealthcareClarity, UAClearNOMS HealthcareColor, UAYellowNOMS HealthcareGlucose, UANegativeNegative - 1999(110) ++++ mg/dLNOMS Healthcare Interpretation and review of laboratory resultsNormalNOWI HealthcareKetones, UA NegativeNegative - 160(16) ++++ mg/dLNOMS HealthcareLeukocytes, UANegative Negative - 500+++ Alessandro/mcLNOMS HealthcareNitrite, UANegativeNegative - Positive NOMS HealthcarepH, UA65 - 9NOMS HealthcareProtein, UANegativeNegative - 1999(20) ++++ mg/dLNOMS HealthcareSpec Grav, UA1.021 - 1.03NOWI HealthcareUrobilinogen, UA1.00.2 - 12 mg/dLNOMS HealthcareNOMS HealthcareUrinalysis macro (dipstick) panel (U)Ordered By: Jasmin Nogueira on 66-56-4754Uhrubuzrf, UANegativeNegative - 4(70) +++ mg/dLNOMS Healthcare Work Phone: Blood, UANegativeNegative - 50 Cedric/mcLNOMS Healthcare Work Phone: Clarity, UAClearNOMS Healthcare Work Phone: Color, UAYellowNOMS Healthcare Work Phone: Glucose, UANegativeNegative - 2000(110) ++++ mg/dLNOMS Healthcare Work Phone: Interpretation and review of laboratory results AbnormalNOMS Healthcare Work Phone: Ketones, UANegativeNegative - 160(16) ++++ mg/dLNOMS Healthcare Work Phone: Leukocytes, UANegativeNegative - 500+++ Alessandro/mcLNOMS Healthcare Work Phone: [phone], UANegativeNegative - PositiveNOMS Healthcare Work Phone: pH, UA65 - 9N[facility] Work Phone: Protein, UATraceNegative - 2000(20) ++++ mg/dLNOMS Healthcare Work Phone: Spec Grav, UA1.011 - 1.03N[facility] Work Phone: Urobilinogen, UA1.00.2 - 12 mg/dLNOMS Healthcare Work Phone: [facility] Work Phone: US OB 14+ WEEKS ANATOMY SCANon 37-82-3496ON OB 14+ WEEKS ANATOMY SCANEXAM: US OB [...] II, MD, PHD at 19-Apr-2025 10:16:24 AM [facility] [place] TeleradiologyNormalNot AvailableComment on above:Order Comment: US OB ANATOMY SINGLE W US OB CERVICAL LENGTH Estimated Date of Delivery: 08/25/25 Gestational Age as of 03/20/2025: 76w5wBoqcrixzyw macro (dipstick) panel (U)on 08-78-8988Rujthepeu, UANegativeNegative - 4(70) +++ mg/dLNOMS HealthcareBlood, UANegativeNegative - 50 Cedric/mcLNOMS HealthcareClarity, UAClearNOMS Healthcare Color, UAYellowNOMS HealthcareGlucose, UANegativeNegative - 1999(110) ++++ mg/dL NOMS HealthcareInterpretation and review of laboratory resultsNormalNOWI HealthcareKetones, UANegativeNegative - 160(16) ++++ mg/dLNOWI Healthcare Leukocytes, UANegativeNegative - 500+++ Alessandro/mcLNOMS HealthcareNitrite, UA NegativeNegative - PositiveNOWI HealthcarepH, UA6.55 - 9NOWI HealthcareProtein, UANegativeNegative - 2000(20) ++++ mg/dLNOWI HealthcareSpec Grav, UA1.011 - 1.03 NOMS HealthcareUrobilinogen, UA0.20.2 - 12 mg/dLNOWI HealthcareNOMS HealthcareUS OB LIMITED 1+ FETUSESon 98-80-8657MV OB LIMITED 1+ FETUSESEXAM: US OB LIMITED [...] II, MD, PHD at 28-Feb-2025 11:32:13 PM [facility] TeleradiologyNormalNot AvailableComment on above:Order Comment: US OB VIABILITY PLEASE PERFORM TRANSVAGINAL ULTRASOUND IF INDICATED Patient's last menstrual period was 11/18/2024 (approximate).BOX TESTon 32-62-0705AZC [facility] JjbrbxuogoPDO5EKIFBJMXA HealthcareBOX2 01/30/25NOWI HealthcareCLINISYNCNOMS HealthcareHCG ( test) Ql (U)on 12-02-0984Ecwmzhvkeeemdo and review of laboratory resultsAbnormalNOMS Healthcare Preg Test, UrPositiveNegativeNOMS HealthcareNOMS HealthcareUS OB TRANSVAGINALon 39-46-8866HI OB TRANSVAGINALEXAM: US OB TRANSVAGINAL HISTORY: Dating. [...] II, MD, PHD at 20-Jan-2025 09:44:55 AM [facility] [place] TeleradiologyNormalNot AvailableComment on above:Order Comment: US OB TRANSVAGINAL No LMP recorded.Urinalysis macro (dipstick) panel (U)on 81-40-0243Vrqhyrgpk, UA NegativeNegative - 4(70) +++ mg/dLNOMS HealthcareBlood, UANegativeNegative - 50 Cedric/mcLNOMS HealthcareClarity, UAClearNOMS HealthcareColor, UAYellowNOMS HealthcareGlucose, UANegativeNegative - 2000(110) ++++ mg/dLNOMS Healthcare Interpretation and review of laboratory resultsNormalNOMS HealthcareKetones, UA NegativeNegative - 160(16) ++++ mg/dLNOWI HealthcareLeukocytes, UANegative Negative - 500+++ Alessandro/mcLNOWI HealthcareNitrite, UANegativeNegative - Positive NOMS HealthcarepH, UA7.55 - 9NOMS HealthcareProtein, UATraceNegative - 2000(20) ++++ mg/dLNOWI HealthcareSpec Grav, UA1.021 - 1.03NOMS HealthcareUrobilinogen, UA0.20.2 - 12 mg/dLNOUniversity of Missouri Children's HospitalNOWI HealthcareHCG ( test) Ql (U)on 82-37-5814Sylvyqfebyvllo and review of laboratory resultsNormalSullivan [facility] Preg Test, UrNegativeNegativeNO[facility] HealthcareIGP,APTIMA HPV,AGE GDLNon 11-81-9140CKZ GDLN ACOG TESTINGNote.[facility] HealthcareComment on above:TESTS RESULT FLAG UNITS REF RANGE LAB Clinician Provided Cytology Information Source.............Cervix;Endocervix No. of containers..01 ThinPrep Vial Age Algo ACOG Zari... -26 10 FLAG LEGEND: L-Low Normal,H-High Normal,LL-Alert Low,HH-Alert High <-Panic Low,>-Panic High,A-Abnormal,AA-Critical Abnormal Performed at: 01 = [address] [address] Dian Gauthier MD, IGP, RFX APTIMA HPV ASCUNote.NOMS HealthcareComment on above:TESTS RESULT FLAG UNITS REF RANGE LAB DIAGNOSIS: 02 NEGATIVE FOR INTRAEPITHELIAL LESION OR MALIGNANCY. Specimen adequacy: 02 Satisfactory for evaluation. Endocervical and/or squamous metaplastic cells (endocervical component) are present. Performed by: 02 Nohelia Deleon, Credit Union Teller ([facility]) . 02 Note: Note 02 The [...] <-Panic Low,>-Panic High,A-Abnormal,AA-Critical Abnormal Performed at: [address] [address] Dian Gauthier MD, Performed at: = - [facility] [id number] [employer] Manager: Dian Gauthier MD, Phone: [phone] Performed at: [facility], [place] [id number] [employer] Manager: Dian Gauthier MD, Phone: [phone] BRUSH-SPATULA CERVIX ENDOCERVIX CLINISYNCNOMS HealthcareHCG ( test) Ql (U)on 78-06-2268Caamayoihwucyk and review of laboratory resultsNormalNOMS HealthcarePreg Test, UrNegative NegativeNOMS HealthcareNOMS HealthcareUrinalysis macro (dipstick) panel (U)on 92-10-1213Dgpfkbdjg, UANegativeNegative - 4(70) +++ mg/dLNOMS HealthcareBlood, UANegativeNegative [...] mg/dLNOMS HealthcareNOMS HealthcareUS OB BPP W NON-STRESSon 28-16-[place] [address] Ultrasound Report Signed Patient: JUANPABLO CHAPARRO MR#: [id number] : 2000 Acct:[id number] Age/Sex: 23 / F ADM Date: 01/20/24 Loc: [facility] 254-[address]: Devyn Tello D.O. Ordering Physician: Devyn Tello D.O. Date of Service: 01/20/24 Procedure(s): US OB BPP w non-stress Accession Number(s): [id number] cc: ADRYAN MARIE ; Devyn Tello D.O. [place] [address] Patient Name: JUANPABLO CHAPARRO MRN: [facility]:[id number] date: 2000 Sex: F Assigned Patient Location: Current Patient Location: [facility] Accession/Order Number: [id number] Exam Date: 01/20/2024 10:00 Report Date: 01/20/2024 [...] Signed By: 01/20/24 1032 DD/ 1029 TD/TT: Fur Joiner:TBHRadiology, Radiologist, MD - 01/20/2024 [place] [address] Ultrasound Report Signed Patient: JUANPABLO CHAPARRO MR#: [id number] : 2000 Acct:[id number] Age/Sex: 23 / F ADM Date: 01/20/24 Loc: [facility] 254-[address]: Devyn Tello D.O. Ordering Physician: Devyn Tello D.O. Date of Service: 01/20/24 Procedure(s): US OB BPP w non-stress Accession Number(s): [id number] cc: ADRYAN MARIE ; Devyn Tello D.O. [place] [address] Patient Name: JUANPABLO CHAPARRO MRN: [facility]:[id number] date: 2000 Sex: F Assigned Patient Location: Current Patient Location: [facility] Accession/Order Number: [id number] Exam Date: 01/20/2024 10:00 Report Date: 01/20/2024 [...] Signed By: 01/20/24 1032 DD/ 1029 TD/TT: Fur Joiner: MARION HealthcareRadiology Study observation (narrative)NOMS HealthcareUS OB BPP W NON-STRESSOrdered By: Radiologist Radiology on 21-80-1268[facility] Work Phone: US OB GROWTHon [phone] [address] Ultrasound Report Signed Patient: JUANPABLO CHAPARRO MR#: [id number] : 2000 Acct:[id number] Age/Sex: 23 / F ADM Date: 01/14/24 Loc: [facility] Attending Dr: Devyn Tello D.O. Ordering Physician: Devyn Tello D.O. Date of Service: 01/14/24 Procedure(s): US OB growth Accession Number(s): [id number] cc: ADRYAN MARIE ; Devyn Tello D.O. The [place] [id number] Patient Name: JUANPABLO CHAPARRO MRN: [facility]:[id number] date: 2000 Sex: F Assigned Patient [facility] Current Patient Location: [facility] Accession/Order Number: [id number] Exam Date: 01/14/2024 15:09 Report Date: 01/14/2024 [...] M.D. Signed By: 01/14/241599 DD/ 155 TD/TT: Fur Joiner:SANJAYHRadiology, Radiologist, - 01/14/2024 [place] [address] Ultrasound Report Signed Patient: JUANPABLO CHAPARRO MR#: [id number] : 2000 Acct:[id number] Age/Sex: 23 / F ADM Date: 01/14/24 Loc: [facility] Attending Dr: Devyn Tello D.O. Ordering Physician: Devyn Tello D.O. Date of Service: 01/14/24 Procedure(s): US OB growth Accession Number(s): [id number] cc: ADRYAN MAREI ; Devyn Tello D.O. [place] [address] Patient Name: JUANPABLO CHAPARRO MRN: [facility]:[id number] date: 2000 Sex: F Assigned Patient Location: [facility] Current Patient Location: [facility] Accession/Order Number: [id number] Exam Date: 01/14/2024 15:09 Report Date: 01/14/2024 [...] Signed By: 01/14/24 1600 DD/ 1557 TD/TT: Fur Joiner: MARION HealthcareRadiology Study observation (narrative)MARION JhaveriUS OB GROWTHOrdered By: Radiologist Radiology on 71-92-3281JMFY Healthcare Work Phone: US OB BPP W NON-STRESSon [phone] [place] [address] Ultrasound Report Signed Patient: JUANPABLO CHAPARRO MR#: [id number] : 2000 Acct:[id number] Age/Sex: 23 / F ADM Date: 01/13/24 Loc: US Attending Dr: Devyn Tello D.O. Ordering Physician: Devyn Tello D.O. Date of Service: 01/13/24 Procedure(s): US OB BPP w non-stress Accession Number(s): [id number] cc: ADRYAN MARIE ; Devyn Tello D.O. [place] [id number] Patient Name: JUANPABLO CHAPARRO MRN: [id number] date: 2000 Sex: F Assigned Patient Location: [facility] Current Patient Location: Accession/Order Number: [id number] Exam Date: 01/13/2024 10:00 Report Date: 01/13/2024 [...] Signed By: 01/13/24 1142 DD/ 38 TD/TT: Fur Joiner:FRANKadiologchyna Radiologist, - 01/13/2024 [place] [address] Ultrasound Report Signed Patient: JUANPABLO CHAPARRO MR#: [id number] : 2000 Acct:[id number] Age/Sex: 23 / F ADM Date: 01/13/24 Loc: US Attending Dr: Devyn Tello D.O. Ordering Physician: Devyn Tello D.O. Date of Service: 01/13/24 Procedure(s): US OB BPP w non-stress Accession Number(s): [id number] cc: ADRYAN MARIE ; Devyn Tello D.O. The [place] [id number] Patient Name: JUANPABLO CHAPARRO MRN: [id number] date: 2000 Sex: F Assigned Patient Location: [facility] Current Patient Location: Accession/Order Number: [id number] Exam Date: 01/13/2024 10:00 Report Date: 01/13/2024 [...] Signed By: 01/13/24 1142 DD/ 38 TD/TT: Fur Joiner: MARION JhaveriRadiology Study observation (narrative)MARION JhaveriUS OB BPP W NON-STRESSOrdered By: Radiologist Radiology on 98-18-1740[facility] Work Phone: US OB GROWTHon [phone] [address] Ultrasound Report Signed Patient: JUANPABLO CHAPARRO MR#: [id number] : 2000 Acct:[id number] Age/Sex: 23 / F ADM Date: 01/13/24 Loc: US Attending Dr: Devyn Tello D.O. Ordering Physician: Devyn Tello D.O. Date of Service: 01/13/24 Procedure(s): US OB growth Accession Number(s): [id number] cc: ADRYAN MARIE ; Devyn Tello D.O. The [address] [address] Patient Name: JUANPABLO CHAPARRO MRN: TBH:[id number] date: 2000 Sex: F Assigned Patient Location: [facility] Current Patient Location: Accession/Order Number: [id number] Exam Date: 01/13/2024 10:00 Report Date: 01/13/2024 [...] Signed By: 01/13/24 1143 DD/ 1140 TD/TT: Fur Joiner:TBHRadiology, Radiologist, MD - 01/13/2024 [place] [address] Ultrasound Report Signed Patient: JUANPABLO CHAPARRO MR#: [id number] : 2000 Acct:[id number] Age/Sex: 23 / F ADM Date: 01/13/24 Loc: US Attending Dr: Devyn Tello D.O. Ordering Physician: Devyn Tello D.O. Date of Service: 01/13/24 Procedure(s): US OB growth Accession Number(s): [id number] cc: ADRYAN MARIE ; Devyn Tello D.O. The [place] [address] Patient Name: JUANPABLO CHAPARRO MRN: [id number]:[id number] date: 2000 Sex: F Assigned Patient Location: [facility] Current Patient Location: Accession/Order Number: [id number] Exam Date: 01/13/2024 10:00 Report Date: 01/13/2024 [...] Signed By: 01/13/24 1143 DD/ 1140 TD/TT: Fur Joiner: NOMS HealthcareRadiology Study observation (narrative)NOM HealthcareUS OB GROWTHOrdered By: Radiologist Radiology on 26-38-6500[facility] Work Phone: US OB BPP W NON-STRESSon [phone] [place] [address] Ultrasound Report Signed Patient: JUANPABLO CHAPARRO MR#: [id number] : 2000 Acct:[id number] Age/Sex: 23 / F ADM Date: 01/06/24 Loc: [facility] 254-[address]: Devyn Tello D.O. Ordering Physician: Devyn Tello D.O. Date of Service: 01/06/24 Procedure(s): US OB BPP w non-stress Accession Number(s): [id number] cc: ADRYAN MARIE Corey D.O. The [address] [address] Patient Name: JUANPABLO CHAPARRO MRN: TBH:[id number] date: 2000 Sex: F Assigned Patient Location: [facility] Current Patient Location: [facility] Accession/Order Number: [id number] Exam Date: 01/06/2024 09:58 Report Date: 01/06/2024 [...] Signed By: 01/06/24 1044 DD/ 1039 TD/TT: Fur Joiner:TBHRadiology, Radiologist, - 01/06/2024 [place] [address] Ultrasound Report Signed Patient: JUANPABLO CHAPARRO MR#: [id number] : 2000 Acct:[id number] Age/Sex: 23 / F ADM Date: 01/06/24 Loc: [facility] 254-[address]: Devyn Tello D.O. Ordering Physician: Devyn Tello D.O. Date of Service: 01/06/24 Procedure(s): US OB BPP w non-stress Accession Number(s): [id number] cc: ADRYAN MARIE ; Devyn Tello D.O. The [place] [address] Patient Name: JUANPABLO CHAPARRO MRN: [facility]:[id number] date: 2000 Sex: F Assigned Patient Location: [facility] Current Patient Location: [facility] Accession/Order Number: [id number] Exam Date: 01/06/2024 09:58 Report Date: 01/06/2024 [...] Signed By: 01/06/24 1044 DD/ 1039 TD/TT: Fur Joiner: MARION HealthcareRadiology Study observation (narrative)NOM HealthcareUS OB BPP W NON-STRESSOrdered By: Radiologist Radiology on 80-77-5500NZTB [employer] Work Phone: US OB BPP W NON-STRESSon [phone] [place] [address] Ultrasound Report Signed Patient: JUANPABLO CHAPARRO MR#: [id number] : 2000 Acct:[id number] Age/Sex: 23 / F ADM Date: 12/30/23 Loc: [place] [address]- Attending Dr: Devyn Tello D.O. Ordering Physician: Devyn Tello D.O. Date of Service: 12/30/23 Procedure(s): US OB BPP w non-stress Accession Number(s): [id number] cc: ADRYAN MARIE Corey D.O. The [address] [address] Patient Name: JUANPABLO CHAPARRO MRN: TBH:[id number] date: 2000 Sex: F Assigned Patient Location: [facility] Current Patient Location: [facility] Accession/Order Number: [id number] Exam Date: 12/30/2023 10:05 Report Date: 12/30/2023 [...] Signed By: 12/30/23 104 DD/ 40 TD/TT: Fur Joiner:SANJAYHRadiology, Radiologist, - 12/30/2023 [place] [address] Ultrasound Report Signed Patient: JUANPABLO CHAPARRO MR#: [id number] : 2000 Acct:[id number] Age/Sex: 23 / F ADM Date: 12/30/23 Loc: [address]: Devyn Tello D.O. Ordering Physician: Devyn Tello D.O. Date of Service: 12/30/23 Procedure(s): US OB BPP w non-stress Accession Number(s): [id number] cc: ADRYAN MARIE ; Devyn Tello D.O. The [place] [id number] Patient Name: JUANPABLO CHAPARRO MRN: [id number]:[id number] date: 2000 Sex: F Assigned Patient Location: [facility] Current Patient Location: [facility] Accession/Order Number: [id number] Exam Date: 12/30/2023 10:05 Report Date: 12/30/2023 [...] Signed By: 12/30/23 1043 DD/ 104 TD/TT: Fur Joiner: MARION HealthcareRadiology Study observation (narrative)NOM HealthcareUS OB BPP W NON-STRESSOrdered By: Radiologist Radiology on 46-33-6697VSBP [employer] Work Phone: US OB GROWTHon [phone] [place] [address] Ultrasound Report Signed Patient: JUANPABLO CHAPARRO MR#: [id number] : 2000 Acct:[id number] Age/Sex: 23 / F ADM Date: 12/24/23 Loc: [facility] Attending Dr: Devyn Tello D.O. Ordering Physician: Devyn Tello D.O. Date of Service: 12/24/23 Procedure(s): US OB growth Accession Number(s): [id number] cc: ADRYAN MARIE ; Devyn Tello D.O. The [place] [phone] Patient Name: JUANPABLO CHAPARRO MRN: [facility]:[id number] date: 2000 Sex: F Assigned Patient Location: [facility] Current Patient Location: [facility] Accession/Order Number: [id number] Exam Date: 12/24/2023 10:06 Report Date: 12/24/2023 [...] Signed By: 12/24/23 1101 DD/ 1058 TD/TT: Fur Joiner:TBHRadiology, Radiologist, - 12/24/2023 [place] [address] Ultrasound Report Signed Patient: JUANPABLO CHAPARRO MR#: [id number] : 2000 Acct:[id number] Age/Sex: 23 / F ADM Date: 12/24/23 Loc: [facility] Attending Dr: Devyn Tello D.O. Ordering Physician: Devyn Tello D.O. Date of Service: 12/24/23 Procedure(s): US OB growth Accession Number(s): [id number] cc: ADRYAN MARIE ; Devyn Tello D.O. The [place] [phone] Patient Name: JUANPABLO CHAPARRO MRN: [facility]:[id number] date: 2000 Sex: F Assigned Patient Location: [facility] Current Patient Location: [facility] Accession/Order Number: [id number] Exam Date: 12/24/2023 10:06 Report Date: 12/24/2023 [...] Signed By: 12/24/23 1101 DD/ 1058 TD/TT: Fur Joiner: MARION HealthcareRadiology Study observation (narrative)[facility] HealthcareUS OB GROWTHOrdered By: Radiologist Radiology on 24-33-5641[facility] Work Phone: us OB BPP W NON-STRESSon [phone] [place] [address] Ultrasound Report Signed Patient: JUANPABLO CHAPARRO MR#: [id number] : 2000 Acct:[id number] Age/Sex: 23 / F ADM Date: 12/23/23 Loc: US Attending Dr: Devyn Tello D.O. Ordering Physician: Devyn Tello D.O. Date of Service: 12/23/23 Procedure(s): US OB BPP w non-stress Accession Number(s): [id number] cc: ADRYAN MARIE ; Devyn Tello D.O. [address] [address] Patient Name: JUANPABLO CHAPARRO MRN: [facility]:[id number] date: 2000 Sex: F Assigned Patient Location: [facility] Current Patient Location: Accession/Order Number: [id number] Exam Date: 12/23/2023 10:00 Report Date: 12/23/2023 [...] Signed By: 12/23/23 1055 DD/ 1052 TD/TT: Fur Joiner:SANJAYHRadiology, Radiologist, MD - 12/23/2023 [place] [address] Ultrasound Report Signed Patient: JUANPABLO CHAPARRO MR#: [id number] : 2000 Acct:[id number] Age/Sex: 23 / F ADM Date: 12/23/23 Loc: US Attending Dr: Devyn Tello D.O. Ordering Physician: Devyn Tello D.O. Date of Service: 12/23/23 Procedure(s): US OB BPP w non-stress Accession Number(s): [id number] cc: ADRYAN MARIE ; Devyn Tello D.O. The [address] [address] Patient Name: JUANPABLO CHAPARRO MRN: [facility]:[id number] date: 2000 Sex: F Assigned Patient Location: [facility] Current Patient Location: Accession/Order Number: [id number] Exam Date: 12/23/2023 10:00 Report Date: 12/23/2023 [...] Signed By: 12/23/23 1055 DD/ 105 TD/TT: Fur Joiner: MARION HealthcareRadiology Study observation (narrative)NOMS HealthcareUS OB BPP W NON-STRESSOrdered By: Radiologist Radiology on 08-09-8067[facility] Work Phone: US OB BPP W NON-STRESSon [phone] [place] [address] Ultrasound Report Signed Patient: JUANPABLO CHAPARRO MR#: [id number] : 2000 Acct:[id number] Age/Sex: 23 / F ADM Date: 12/16/23 Loc: [facility] 250-[address]: Devyn Tello D.O. Ordering Physician: Devyn Tello D.O. Date of Service: 12/16/23 Procedure(s): US OB BPP w non-stress Accession Number(s): [id number] cc: ADRYAN MARIE ; Devyn Tello D.O. The [address] [address] Patient Name: JUANPABLO CHAPARRO MRN: TB:[id number] date: 2000 Sex: F Assigned Patient Location: [place] [facility] [place]/Order Number: [id number] Exam Date: 12/16/2023 10:00 Report Date: 12/16/2023 [...] Signed By: 12/16/23 1055 DD/ 1053 TD/TT: Fur Joiner:TBHRadiology, Radiologist, MD - 12/16/[address] [address] Ultrasound Report Signed Patient: JUANPABLO CHAPARRO MR#: [id number] : 2000 Acct:[id number] Age/Sex: 23 / F ADM Date: 12/16/23 Loc: [facility] 250-[address]: Devyn Tello D.O. Ordering Physician: Devyn Tello D.O. Date of Service: 12/16/23 Procedure(s): US OB BPP w non-stress Accession Number(s): [id number] cc: ADRYAN MARIE ; Devyn Tello D.O. The [address] [address] Patient Name: JUANPABLO CHAPARRO MRN: [facility]:[id number] date: 2000 Sex: F Assigned Patient Location: [place] [facility] [place]ion/Order Number: [id number] Exam Date: 12/16/2023 10:00 Report Date: 12/16/2023 [...] Signed By: 12/16/23 1055 DD/ 1053 TD/TT: Fur Joiner: NOMSamina HealthcareRadiology Study observation (narrative)NOMS HealthcareUS OB BPP W NON-STRESSOrdered By: Radiologist Radiology on 75-63-0319[facility] Work Phone: US OB BPP W NON-STRESSon [phone] [address] Ultrasound Report Signed Patient: JUANPABLO CHAPARRO MR#: [id number] : 2000 Acct:[id number] Age/Sex: 23 / F ADM Date: 12/09/23 Loc: [facility] 250-[address]: Devyn Tello D.O. Ordering Physician: Devyn Tello D.O. Date of Service: 12/09/23 Procedure(s): US OB BPP w non-stress Accession Number(s): [id number] cc: ADRYAN MARIE ; Devyn Tello D.O. The [address] [address] Patient Name: JUANPABLO CHAPARRO MRN: [facility]:[id number] date: 2000 Sex: F Assigned Patient Location: US Current Patient Location: [facility] Accession/Order Number: [id number] Exam Date: 12/09/2023 09:55 Report Date: 12/09/2023 [...] Signed By: 12/09/23 1031 DD/ 1029 TD/TT: Fur Joiner:SANJAYHRadiology, Radiologist, MD - 12/09/2023 [place] [address] Ultrasound Report Signed Patient: JUANPABLO CHAPARRO MR#: [id number] : 2000 Acct:[id number] Age/Sex: 23 / F ADM Date: 12/09/23 Loc: [facility] 250-[address]: Devyn Tello D.O. Ordering Physician: Devyn Tello D.O. Date of Service: 12/09/23 Procedure(s): US OB BPP w non-stress Accession Number(s): [id number] cc: ADRYAN MARIE ; Devyn Tello D.O. The [address] [address] Patient Name: JUANPABLO CHAPARRO MRN: [facility]:[id number] date: 2000 Sex: F Assigned Patient Location: US Current Patient Location: [facility] Accession/Order Number: [id number] Exam Date: 12/09/2023 09:55 Report Date: 12/09/2023 [...] Signed By: 12/09/23 1031 DD/ 1029 TD/TT: Fur Joiner: NOMSamina HealthcareRadiology Study observation (narrative)NOMS HealthcareUS OB BPP W NON-STRESSOrdered By: Radiologist Radiology on 78-06-0050[facility] Work Phone: US OB BPP W NON-STRESSon [phone] [place] [address] Ultrasound Report Signed Patient: JUANPABLO CHAPARRO MR#: [id number] : 2000 Acct:[id number] Age/Sex: 23 / F ADM Date: 12/01/23 Loc: [facility] 250-[address]: Devyn Tello D.O. Ordering Physician: Devyn Tello D.O. Date of Service: 12/01/23 Procedure(s): US OB BPP w non-stress Accession Number(s): [id number] cc: ADRYAN MARIE ; Devyn Tello D.O. The [address] [address] Patient Name: JUANPABLO CHAPARRO MRN: [facility]:[id number] date: 2000 Sex: F Assigned Patient Location: [facility] Current Patient Location: [facility] Accession/Order Number: [id number] Exam Date: 12/01/2023 15:08 Report Date: 12/01/2023 [...] Signed By: 12/01/23 1550 DD/ 1547 TD/TT: Fur Joiner:SANJAYHRadiology, Radiologist, - 12/01/[address] [address] Ultrasound Report Signed Patient: JUANPABLO CHAPARRO MR#: [id number] : 2000 Acct:[id number] Age/Sex: 23 / F ADM Date: 12/01/23 Loc: [facility] 250-[address]: Devyn Tello D.O. Ordering Physician: Devyn Tello D.O. Date of Service: 12/01/23 Procedure(s): US OB BPP w non-stress Accession Number(s): [id number] cc: ADRYAN MARIE ; Devyn Tello D.O. [address] [id number] Patient Name: JUANPABLO CHAPARRO MRN: [facility]:[id number] date: 2000 Sex: F Assigned Patient Location: [facility] Current Patient Location: [facility] Accession/Order Number: [id number] Exam Date: 12/01/2023 15:08 Report Date: 12/01/2023 [...] By: Adryan Pretty M.D. Signed By: 12/01/23 155 DD/ 1547 TD/TT: Fur Joiner: MARION HealthcareRadiology Study observation (narrative)NOMS HealthcareUS OB BPP W NON-STRESSOrdered By: Radiologist Radiology on 90-38-4508[facility] Work Phone: US OB GROWTHon [phone] [address] Ultrasound Report Signed Patient: JUANPABLO CHAPARRO MR#: [id number] : 2000 Acct:[id number] Age/Sex: 23 / F ADM Date: 11/26/23 Loc: [facility] Attending Dr: Devyn Tello D.O. Ordering Physician: Devyn Tello D.O. Date of Service: 11/26/23 Procedure(s): US OB growth Accession Number(s): [id number] cc: ADRYAN MARIE ; Devyn Tello D.O. [place] [id number] Patient Name: JUANPABLO CHAPARRO MRN: [facility]:[id number] date: 2000 Sex: F Assigned Patient Location: [facility] Current Patient Location: [facility] Accession/Order Number: [id number] Exam Date: 11/26/2023 10:29 Report Date: 11/26/2023 [...] Signed By: 11/26/23 1118 DD/ 1115 TD/TT: Fur Joiner:TBHRadiology, Radiologist, - 11/26/2023 [place] [address] Ultrasound Report Signed Patient: JUANPABLO CHAPARRO MR#: [id number] : 2000 Acct:[id number] Age/Sex: 23 / F ADM Date: 11/26/23 Loc: [facility] Attending Dr: Devyn Tello D.O. Ordering Physician: Devyn Tello D.O. Date of Service: 11/26/23 Procedure(s): US OB growth Accession Number(s): [id number] cc: ADRYAN MARIE ; Devyn Tello D.O. The [place] [address] Patient Name: JUANPABLO CHAPARRO MRN: [facility]:[id number] date: 2000 Sex: F Assigned Patient Location: [facility] Current Patient Location: [facility] Accession/Order Number: [id number] Exam Date: 11/26/2023 10:29 Report Date: 11/26/2023 [...] Signed By: 11/26/23 1118 DD/ 1115 TD/TT: Fur Joiner: MARION [facility]omerene HospitalRadiology Study observation (narrative)NOM HealthcareUS OB GROWTHOrdered By: Radiologist Radiology on 12-08-9596[facility] Work Phone: Urinalysis macro (dipstick) panel [...] mg/dLNOMS HealthcareNOMS HealthcareALL CBC WITH AUTO DIFFon 61-69-0439MFRVJGSYG ABSOLUTE AUTO0.0NOMS HealthcareBasophils/100 WBC (Bld)0.3 %0.2 - 2.0 %NOMS HealthcareEosinophils/100 WBC (Bld)1.0 %0.9 - 7.0 % NOM HealthcareErythrocyte distribution width (RBC) [Ratio]12.5 %11.0 - 15.0 % NOMS HealthcareHematocrit (Bld) [Volume fraction]35.1 %Low36.0 - 48.0 %NOM HealthcareHemoglobin (Bld) [Mass/Vol]11.7 g/dLLow12.0 - 16.0 g/dLNOMS Healthcare IMMATURE GRANULOCYTES ABS AUTO0.08HighSullivan County Memorial HospitalImmature granulocytes/100 WBC (Bld)0.6 %High0.0 - 0.5 %[facility] HospitalInterpretation and review of laboratory resultsAbnormalNOUniversity of Missouri Children's HospitalLYMPHOCYTES ABSOLUTE AUTO1.6NOUniversity of Missouri Children's HospitalLymphocytes/100 WBC (Bld)11.9 %Low20.5 - 60.0 %[facility] HospitalH (RBC) [Entitic mass]30.7 pg26.7 - 34.0 pgHermann Area District HospitalHC (RBC) [Mass/Vol] 33.3 g/dL29.9 - 35.2 g/dLHermann Area District HospitalV (RBC) [Entitic vol]92.1 fL81.0 - 99.0 fLSullivan County Memorial HospitalMONOCYTES ABSOLUTE AUTO0.8NOUniversity of Missouri Children's HospitalMonocytes/100 WBC (Bld)5.5 %1.7 - 12.0 %[facility] HospitalNEUTROPHILS ABSOLUTE AUTO11.1HighSullivan County Memorial HospitalNeutrophils/100 WBC (Bld)80.7 %High43.0 - 75.0 %[facility] Platelet mean volume (Bld) [Entitic vol]10.6 fL9.5 - 13.5 fLSullivan County Memorial HospitalTB EO #0.1NOMS Pomerene HospitalTB JZV150ZGFQAudrain Medical Center RBC3.81LowNOAudrain Medical Center WBC13.8HighSullivan County Memorial HospitalCLINISYNCNOMS Pomerene HospitalNo Panel InformationOrdered By: Radiologist Radiology on 60-00-7218UJDFSullivan County Memorial Hospital Work Phone: No Panel Informationon 02-69-0764Xfwmrxhuz Study observation (narrative)[facility] OB ANATOMYon 66-12-2985ZxnR[place] [address] Ultrasound Report Signed Patient: JUANPABLO CHAPARRO MR#: [id number] : 2000 Acct:[id number] Age/Sex: 23 / F ADM Date: 09/17/23 Loc: US Attending Dr: Devyn Tello D.O. Ordering Physician: Devyn Tello D.O. Date of Service: 09/17/23 Procedure(s): US OB anatomy Accession Number(s): [id number] cc: ADRYAN MARIE ; Devyn Tello D.O. [place] [id number] Patient Name: JUANPABLO CHAPARRO MRN: [facility]:[id number] date: 2000 Sex: F Assigned Patient Location: US Current Patient Location: Accession/Order Number: [id number] Exam Date: 09/17/2023 08:38 Report Date: 09/17/2023 [...] M.D. Signed By: 09/17/232226 DD/ 24 TD/TT: Fur Joiner:FRANKadiologchyna, Radiologist, - 09/17/2023 [place] [address] Ultrasound Report Signed Patient: JUANPABLO CHAPARRO MR#: [id number] : 2000 Acct:[id number] Age/Sex: 23 / F ADM Date: 09/17/23 Loc: US Attending Dr: Devyn Tello D.O. Ordering Physician: Devyn Tello D.O. Date of Service: 09/17/23 Procedure(s): US OB anatomy Accession Number(s): [id number] cc: ADRYAN MARIE ; Devyn Tello D.O. The [place] [address] Patient Name: JUANPABLO CHAPARRO MRN: [id number] date: 2000 Sex: F Assigned Patient Location: US Current Patient Location: US Accession/Order Number: [id number] Exam Date: 09/17/2023 08:38 Report Date: 09/17/2023 [...] M.D. Signed By: 09/17/232226 DD/ 24 TD/TT: Fur Joiner: MARION Armendariz OB CERVICAL LENGTHon 14-77-6841[place]auR[place] [address] Ultrasound Report Signed Patient: JUANPABLO CHAPARRO MR#: [id number] : 2000 Acct:[id number] Age/Sex: 23 / F ADM Date: 09/17/23 Loc: US Attending Dr: Devyn Tello D.O. Ordering Physician: Devyn Tello D.O. Date of Service: 09/17/23 Procedure(s): US OB cervical length Accession Number(s): [id number] cc: ADRYAN MARIE ; Devyn Tello D.O. [address] [address] Patient Name: JUANPABLO CHAPARRO MRN: [facility]:[id number] date: 2000 Sex: F Assigned Patient Location: US Current Patient Location: US Accession/Order Number: [id number] Exam Date: 09/17/2023 08:38 Report Date: 09/17/2023 [...] M.D. Signed By: 09/17/232226 DD/ 24 TD/TT: Fur Joiner:TBHRadiology, Radiologist, MD - 09/17/2023 [place] [address] Ultrasound Report Signed Patient: JUANPABLO CHAPARRO MR#: [id number] : 2000 Acct:[id number] Age/Sex: 23 / F ADM Date: 09/17/23 Loc: US Attending Dr: Devyn Tello D.O. Ordering Physician: Devyn Tello D.O. Date of Service: 09/17/23 Procedure(s): US OB cervical length Accession Number(s): [id number] cc: ADRYAN MARIE ; Devyn Tello D.O. [place] [id number] Patient Name: JUANPABLO CHAPARRO MRN: [id number] date: 2000 Sex: F Assigned Patient Location: US Current Patient Location: Accession/Order Number: [id number] Exam Date: 09/17/2023 08:38 Report Date: 09/17/2023 [...] M.D. Signed By: 09/17/232226 DD/ 24 TD/TT: Fur Joiner: MARION [facility]haveriHARRISON MEM[facility] AUTO DIFFon 59-59-9110NHYA #0.0 103/ulNormal0.0-0.1The [facility] [place]woodComment on above:Performed By: #### BMP, TSH #### [facility] [place] [facility] [address] [place] [address] Dr. Reema MirelesBasophils/100 WBC (Bld)0.6 %Normal0.2-2.0The [facility] [place] Comment on above:Performed By: #### BMP, TSH #### [facility] [place] [facility] [address] [place] [address] Dr. Reema Lowe #0.0 103/ulNormal0.0-0.7The [facility], [place]woodComment on above: Performed By: #### BMP, TSH #### [facility] [place] [facility] [address] [place] [address] Dr. Reema Carpenterosinophils/100 WBC (Bld)0.6 %Critically low0.9-7.0The [facility], [place]woodComment on above:Performed By: #### BMP, TSH #### [facility] [place] [facility] [address] [place] [address] Dr. Reema Carpenterrythrocyte distribution width (RBC) [Ratio]11.9 %Mnlmaq99.0-15.0 The [facility], [place]woodComment on above:Performed By: #### BMP, TSH #### [facility] [place] [facility] [address] [place] [address] Dr. Reema MirelesHematocrit (Bld) [Volume fraction]37.8 %Ckeddf71.0-48.0The [facility], [place]woodComment on above:Performed By: #### BMP, TSH #### [facility] [place] [facility] [address] [place] [address] Dr. Reema MirelesHemoglobin (Bld) [Mass/Vol]13.5 g/yCCfgbdg50.0-16.0[facility] [place] above:Performed By: #### BMP, TSH #### [facility] [place] [facility] [address] [place], [place] [id number] Dr. Reema Rocha #0.01 10e3/ulNormal0.00-0.03[facility] [place] above:Performed By: #### BMP, TSH #### [facility] [place] [facility] [address] [place] [address] Dr. Reema Rocha %0.2 %Normal0.0-0.5[facility] [place]: Performed By: #### BMP, TSH #### [facility] [place] [facility] [address] [place] [address] Dr. Reema Zayas #1.6 103/ulNormal1.2-3.8[facility] [place] above:Performed By: #### BMP, TSH #### [facility] [place] [facility] [address] [place] [address] Dr. Reema Kimhocytes/100 WBC (Bld)25.5 %Ipdkmn81.5-60.0The [facility], BeachwoodComment on above:Performed By: #### BMP, TSH #### [facility] [place] [facility] [address] [place] [address] Dr. Reema StephensUAL DIFF REQNONormalThe [facility], BeachwoodComment on above: Performed By: #### BMP, TSH #### [facility] [place] [facility] [address] [place] [address] Dr. Reema Vincent (RBC) [Entitic mass]30.9 lzOjtqej75.7-34.0The [facility], BeachwoodComment on above:Performed By: #### BMP, TSH #### [facility] [place] [facility] [address] [place] [address] Dr. Reema Vincent (RBC) [Mass/Vol]35.7 g/dLCritically high29.9-35.2The [facility], BeachwoodComment on above:Performed By: #### BMP, TSH #### [facility] [place] [facility] [address] [place] [address] Dr. Reema Vincent (RBC) [Entitic vol]86.5 mUPbknxj11.0-99.0The [facility], [place]woodComment on above:Performed By: #### BMP, TSH #### [facility] [place] [facility] [address] [address] [address] Reema Weller #0.5 103/ulNormal0.3-0.8The [facility], [place]woodComment on above:Performed By: #### BMP, TSH #### [facility] [place] [facility] [address] [place] [address] Dr. Reema Galiciaocytes/100 WBC (Bld)8.5 %Normal1.7-12.0The [facility] [place] Comment on above:Performed By: #### BMP, TSH #### [facility] [place] [facility] [address] [place] [address] Dr. Reema Bradshaw #4.1 103/ulNormal1.4-6.5The [facility], [place]woodComment on above:Performed By: #### BMP, TSH #### [facility] [place] [facility] [address] [place] [address] Dr. Reema Oneilutrophils/100 WBC (Bld)64.6 %Govrzd93.0-75.0The [facility], [place]woodComment on above:Performed By: #### BMP, TSH #### [facility] [place] [facility] [address] [place] [address] Dr. Reema Rivero mean volume (Bld) [Entitic vol]9.9 fLNormal9.5-13.5The [facility], [place]woodComment on above:Performed By: #### BMP, TSH #### [facility] [place] [facility] [address] [place] [address] Dr. Reema WatkinsT403 103/pxNlzhhl308-169Nkv [facility], [place]woodComment on above: Performed By: #### BMP, TSH #### [facility] [place] [facility] [address] [place] [address] Dr. Reema MirelesRBC4.37 106/ulNormal4.20-5.40The [facility], [place]woodComment on above:Performed By: #### BMP, TSH #### [facility] [place] [facility] [address] [place] [address] Dr. Reema MirelesWBC6.3 103/ulNormal4.0-11.0The [facility]agle HospitalComment on above: Performed By: #### BMP, TSH #### [facility] [place] [facility] [address] [address] [address] Reema Chung 14(COMP METB)on [id number] [Mass/Vol]4.3 g/dLNormal 3.4-5.0The [facility], [place]woodComment on above:Performed By: #### BMP, TSH #### [facility] [place] [facility] [address] [address] [address] Reema MirelesAlbumin/Globulin [Mass ratio]1.2 {ratio}NormalThe [facility], [place]woodComment on above:Performed By: #### BMP, TSH #### [facility] [place] [facility] [address] [place] [address] Dr. Reema Porter [Catalytic activity/Vol]79 U/JBwmjdy01-713Fhk [facility], [place]woodComment on above:Performed By: #### BMP, TSH #### [facility] [place] [facility] [address] [place] [address] Dr. Reema Johnson [Catalytic activity/Vol]31 U/JXrsmuh32-26Xcd [facility], [place]woodComment on above:Performed By: #### BMP, TSH #### [facility] [place] [facility] [address] [place] [address] Dr. Reema Tan gap [Moles/Vol]12.1 mmol/LNormalThe [facility] [place] Comment on above:Performed By: #### BMP, TSH #### [facility] [place] [facility] [address] [place] [address] Dr. Reema Edward [Catalytic activity/Vol]17 U/YPhfzcr88-37Tde [facility] Centerment on above:Performed By: #### BMP, TSH #### [facility] [place] [facility] [address] [place] [address] Dr. Reema MirelesBilirubin [Mass/Vol]0.4 mg/dLNormal0.2-1.0The [facility] [place] Comment on above:Performed By: #### BMP, TSH #### [facility] [place] [facility] [address] [place] [address] Dr. Reema MirelesCalcium [Mass/Vol]8.9 mg/dLNormal8.5-10.1The [facility] [place] Comment on above:Performed By: #### BMP, TSH #### [facility] [place] [facility] [address] [place] [address] Dr. Reema MirelesChloride [Moles/Vol]98 mmol/NJmwwxl51-091Hsv [facility] [place] Comment on above:Performed By: #### BMP, TSH #### [facility] [place] [facility] [address] [place] [address] Dr. Reema MirelesCO2 [Moles/Vol]27.0 mmol/GNiseul83.0-32.0The [facility] [place] Comment on above:Performed By: #### BMP, TSH #### [facility] [place] [facility] [address] [place] [address] Dr. Reema MirelesCreatinine [Mass/Vol]0.65 mg/dLNormal0.55-1.02The [facility], [place]woodComment on above:Performed By: #### BMP, TSH #### [facility] [place] [facility] [address] [place] [address] Dr. Reema CarpenterGFR-AF MAURITANIAN>60Normal>=60The [facility], [place]woodComment on above:Performed By: #### BMP, TSH #### [facility] [place] [facility] [address] [place] [address] Dr. Reema CarpenterGFR-NON AF MAURITANIAN>60Normal>=60The [facility], [place]woodComment on above:Performed By: #### BMP, TSH #### [facility] [place] [facility] [address] [place] [address] Dr. Reema MirelesGlobulin (S) [Mass/Vol]3.5 g/dLNormalThe [facility], [place]woodComment on above:Performed By: #### BMP, TSH #### [facility] [place] [facility] [address] [place] [address] Dr. Reema MirelesGlucose [Mass/Vol]106 mg/lCFwdfod29-820Huk [facility] [place] Comment on above:Performed By: #### BMP, TSH #### [facility] [place] [facility] [address] [place] [address] Dr. Reema MirelesPotassium [Moles/Vol]3.1 mmol/LCritically low3.5-5.1The [facility], [place]woodComment on above:Performed By: #### BMP, TSH #### [facility] [place] [facility] [address] [place] [address] Dr. Reema MirelesProtein [Mass/Vol]7.8 g/dLNormal6.4-8.2[facility] Comment on above:Performed By: #### BMP, TSH #### [facility] [place] [facility] [address] [place] [address] Dr. Reema Melissadium [Moles/Vol]134 mmol/LCritically lek918-740Uuj [facility], [place]woodComment on above:Performed By: #### BMP, TSH #### [facility] [place] [facility] [address] [place] [address] Dr. Reema Britt nitrogen [Mass/Vol]6.0 mg/dLCritically low7.0-18.0The [facility], [place]woodComment on above:Performed By: #### BMP, TSH #### [facility] [place] [facility] [address] [place] [address] Dr. Reema Britt nitrogen/Creatinine [Mass ratio]9.2 mg/mgNormalThe [facility], [place]woodComment on above:Performed By: #### BMP, TSH #### [facility] [place] [facility] [address] [place] [address] Dr. Reema MirelesACETONE SERUMon [id number]UIHNNFJAps [facility], [place]woodComment on above:Performed By: #### BMP, TSH #### [facility] [place] [facility] [address] [place] [address] Dr. Reema BloodC AUTO DIFFon [id number] #0.1 103/ulNormal0.0-0.1The [facility], [place]woodComment on above:Performed By: #### BMP, TSH #### [facility] [place] [facility] [address] [place] [address] Dr. Reema MirelesBasophils/100 WBC (Bld)0.5 %Normal0.2-2.0The [facility] [place] Comment on above:Performed By: #### BMP, TSH #### [facility] [place] [facility] [address] [place] [address] Dr. Reema Lowe #0.1 103/ulNormal0.0-0.7The [facility], [place]woodComment on above: Performed By: #### BMP, TSH #### [facility] [place] [facility] [address] [place] [address] Dr. Reema Carpenterosinophils/100 WBC (Bld)0.7 %Critically low0.9-7.0The [facility], [place]woodComment on above:Performed By: #### BMP, TSH #### [facility] [place] [facility] [address] [place] [address] Dr. Reema Carpenterrythrocyte distribution width (RBC) [Ratio]11.7 %Qadrwz92.0-15.0 The [facility]woodComcorewell [facility] on above:Performed By: #### BMP, TSH #### [facility] [place] [facility] [address] [place] [address] Dr. Reema MirelesHematocrit (Bld) [Volume fraction]37.6 %Uokxtd51.0-48.0The [facility], [place]woodComment on above:Performed By: #### BMP, TSH #### [facility] [place] [facility] [address] [place] [address] Dr. Reema MirelesHemoglobin (Bld) [Mass/Vol]13.1 g/rIItwpcu74.0-16.0The [facility] BeachwoodComcorewell [facility] on above:Performed By: #### BMP, TSH #### [facility] [place] [facility] [address] [place] [address] Dr. Reema Rocha #0.02 10e3/ulNormal0.00-0.03The [facility] BeachwoodComcorewell [facility] on above:Performed By: #### BMP, TSH #### [facility] [place] [facility] [address] [place] [address] Dr. Reema Rocha %0.2 %Normal0.0-0.5The [facility] on above: Performed By: #### BMP, TSH #### [facility] [place] [facility] [address] [place] [address] Dr. Reema Zayas #2.7 103/ulNormal1.2-3.8The [facility], [place]woodComment on above:Performed By: #### BMP, TSH #### [facility] [place] [facility] [address] [place] [address] Dr. Reema Barnettmphocytes/100 WBC (Bld)28.5 %Rrfuwf39.5-60.0The [facility], [place]woodComment on above:Performed By: #### BMP, TSH #### [facility] [place] [facility] [address] [place] [address] Dr. Reema Puckett DIFF REQNONormalThe [facility], [place]woodComment on above: Performed By: #### BMP, TSH #### [facility] [place] [facility] [address] [place] [address] Dr. Reema Vincent (RBC) [Entitic mass]30.3 jbDpxmuu86.7-34.0The [facility] [place]woodComment on above:Performed By: #### BMP, TSH #### [facility] [place] [facility] [address] [place] [address] Dr. Reema Vincent (RBC) [Mass/Vol]34.8 g/gQDspujx85.9-35.2The [facility], [place]woodComment on above:Performed By: #### BMP, TSH #### [facility] [place] [facility] [address] [place] [address] Dr. Reema Vincent (RBC) [Entitic vol]87.0 dKJkxcdo55.0-99.0The [facility], [place]woodComment on above:Performed By: #### BMP, TSH #### [facility] [place] [facility] [address] [place] [address] Dr. Reema Weller #0.8 103/ulNormal0.3-0.8The [facility], [place]woodComment on above:Performed By: #### BMP, TSH #### [facility] [place] [facility] [address] [place] [address] Dr. Reema Galiciaocytes/100 WBC (Bld)8.2 %Normal1.7-12.0The [facility] [place] Comment on above:Performed By: #### BMP, TSH #### [facility] [place] [facility] [address] [place] [address] Dr. Reema Bradshaw #5.9 103/ulNormal1.4-6.5The [facility] on above:Performed By: #### BMP, TSH #### [facility] [place] [facility] [address] [place] [address] Dr. Reema Oneilutrophils/100 WBC (Bld)61.9 %Odzjnm37.0-75.0The [facility] on above:Performed By: #### BMP, TSH #### [facility] [place] [facility] [address] [place] [address] Dr. Reema Hodgsonlet mean volume (Bld) [Entitic vol]10.2 fLNormal9.5-13.5The [facility] on above:Performed By: #### BMP, TSH #### [facility] [place] [facility] [address] [place] [address] Dr. Reema MirelesPLT382 103/ytShvpss914-088Sto [facility] on above: Performed By: #### BMP, TSH #### [facility] [place] [facility] [address] [place] [address] Dr. Reema MirelesRBC4.32 106/ulNormal4.20-5.40The [facility] on above:Performed By: #### BMP, TSH #### [facility] [place] [facility] [address] [place] [address] Dr. Reema MirelesWBC9.6 103/ulNormal4.0-11.0The [facility] on above: Performed By: #### BMP, TSH #### [facility] [place] [facility] [address] [place] [address] Dr. Reema Monae [id number] [Mass/Vol]mg/LNormal<=1.0The [facility] on above:Performed By: #### BMP, TSH #### [facility] [place] [facility] [address] [place] [address] Dr. Reema Griffin URINE PROFILEon [id number] Ql (U)NegativeNormal NEGATIVEThe [facility] on above:Performed By: #### BMP, TSH #### [facility] [place] [facility] [address] [address] [address] Reema Ortizarity (U)CLEARNormalCLEARSouthwest General Health CenterComment on above: Performed By: #### BMP, TSH #### [facility] [place] [facility] [address] [address] [address] Reema Jiménez (U)LT. YELLOWNormalYELLOWSouthwest General Health CenterComment on above:Performed By: #### BMP, TSH #### [facility] [place] [facility] [address] [address] [address] Reema Rivas micrscopic examination will be performed if indicated. NormalSouthwest General Health CenterComment on above:Performed By: #### BMP, TSH #### [facility] [place] [facility] [address] [address] [address] Reema MirelesGlucose Ql (U)NegativeNormalNEGATIVESouthwest General Health CenterComment on above:Performed By: #### BMP, TSH #### [facility] [place] [facility] [address] [address] [address] Reema MirelesHemoglobin Ql (U)NegativeNormalNEGATIVEAvita Health System [facility] on above:Performed By: #### BMP, TSH #### [facility] [place] [facility] [address] [address] [address] Reema MirelesKetones Ql (U)NegativeNormalNEGATIVESouthwest General Health CenterComment on above:Performed By: #### BMP, TSH #### [facility] [place] [facility] [address] [address] [address] Reema MirelesLEUKOCYTESNegativeNormalNEGATIVESouthwest General Health CenterComment on above:Performed By: #### BMP, TSH #### [facility] [place] [facility] [address] [address] [address] Reema MirelesNitrite Ql (U)NegativeNormalNEGATIVESouthwest General Health CenterComment on above:Performed By: #### BMP, TSH #### [facility] [place] [facility] [address] [address] [address] Reema MirelespH (U)5.5 [pH]Normal5-9South[facility] General Health CenterComment on above: Performed By: #### BMP, TSH #### [facility] [place] [facility] [address] [place] [address] Dr. Reema MirelesSPEC GRAVITY<=1.085Glplckwc8.005-<=1.025[facility] Comment on above:Performed By: #### BMP, TSH #### [facility] [place] [facility] [address] [place] [address] Dr. Reema Rodriguez PROTEINNegativeNormalNEGATIVE/ TRACEThe [facility] [place] Comment on above:Performed By: #### BMP, TSH #### [facility] [place] [facility] [address] [place] [address] Dr. Reema Ward MICRO INDNOT INDICATEDMercy Health St. Anne HospitalComment on above:Performed By: #### BMP, TSH #### [facility] [place] [facility] [address] [place] [address] Dr. Reema Wingbilinogen Qn (U)0.2 {Renny'U}/dLNormal0.2 - 1.0The [facility] BeachwoodComment on above:Performed By: #### BMP, TSH #### [facility] [place] [facility] [address] [place] [address] Dr. Reema MirelesLIPASEon [id number] [Catalytic activity/Vol]71.0 U/L Critically low73.0-393.0The [facility], [place]woodComment on above:Performed By: #### BMP, TSH #### [facility] [place] [facility] [address] [place] [address] Dr. Reema MirelesPREGNANCY URon [id number], QUALNegativeNormalNEGATIVEThe [facility], [place]woodComment on above:Performed By: #### CVDTBH #### [facility] [place] [facility] [address] [place] [address] Dr. Reema Chung 14(COMP METB)on [id number] [Mass/Vol]4.3 g/dLNormal 3.4-5.0The [facility] [place]woodComment on above:Performed By: #### BMP, TSH #### [facility] [place] [facility] [address] [address] [address] Reema MirelesAlbumin/Globulin [Mass ratio]1.2 {ratio}NormalThe [facility], BeachwoodComment on above:Performed By: #### BMP, TSH #### [facility] [place] [facility] [address] [address] [address] Reema LinP [Catalytic activity/Vol]70 U/SLxiqii79-729Mha [facility] BeachwoodComment on above:Performed By: #### BMP, TSH #### [facility] [place] [facility] [address] [address] [address] Reema LinT [Catalytic activity/Vol]16 U/QUzfpfq52-54Dyv [facility] BeachwoodComment on above:Performed By: #### BMP, TSH #### [facility] [place] [facility] [address] [place] [address] Dr. Reema Tonyon gap [Moles/Vol]10.5 mmol/LNormalThe [facility] [place] Comment on above:Performed By: #### BMP, TSH #### [facility] [place] [facility] [address] [place] [address] Dr. Reema MirelesAST [Catalytic activity/Vol]8 U/LCritically yiy74-37Mix [facility] BeachwoodComment on above:Performed By: #### BMP, TSH #### [facility] [place] [facility] [address] [place] [address] Dr. Reema MirelesBilirubin [Mass/Vol]0.3 mg/dLNormal0.2-1.0The [facility] [place] Comment on above:Performed By: #### BMP, TSH #### [facility] [place] [facility] [address] [place] [address] Dr. Reema MirelesCalcium [Mass/Vol]9.0 mg/dLNormal8.5-10.1The [facility] [place] Comment on above:Performed By: #### BMP, TSH #### [facility] [place] [facility] [address] [place] [address] Dr. Reema MirelesChloride [Moles/Vol]104 mmol/OSfhiik82-891Bou [facility] [place] Comment on above:Performed By: #### BMP, TSH #### [facility] [place] [facility] [address] [address] [address] Reema MirelesCO2 [Moles/Vol]26.5 mmol/GTvmksk01.0-32.0The [facility] [place] Comment on above:Performed By: #### BMP, TSH #### [facility] [place] [facility] [address] [address] [address] Reema MirelesCreatinine [Mass/Vol]0.79 mg/dLNormal0.55-1.02The [facility] BeachwoodComment on above:Performed By: #### BMP, TSH #### [facility] [place] [facility] [address] [address] [address] Reema CarpenterGFR-AF MAURITANIAN>60Normal>=60The [facility], BeachwoodComment on above:Performed By: #### BMP, TSH #### [facility] [place] [facility] [address] [place] [address] Dr. Reema Duenas-NON AF MAURITANIAN>60Normal>=60The [facility], BeachwoodComment on above:Performed By: #### BMP, TSH #### [facility] [place] [facility] [address] [place] [address] Dr. Reema MirelesGlobulin (S) [Mass/Vol]3.5 g/dLNormalThe [facility], BeachwoodComment on above:Performed By: #### BMP, TSH #### [facility] [place] Laboratory [address] [place] [address] Dr. Reema MirelesGlucose [Mass/Vol]106 mg/gUIyfsbj85-817Diy [facility] [place] Comment on above:Performed By: #### BMP, TSH #### [facility] [place] [facility] [address] [place] [address] Dr. Reema MirelesPotassium [Moles/Vol]3.0 mmol/LCritically low3.5-5.1The [facility], BeachwoodComment on above:Performed By: #### BMP, TSH #### [facility] [place] [facility] [address] [place] [address] Dr. Reema MirelesProtein [Mass/Vol]7.8 g/dLNormal6.4-8.2The [facility] [place] Comment on above:Performed By: #### BMP, TSH #### [facility] [place] [facility] [address] [place] [address] Dr. Reema MirelesSodium [Moles/Vol]138 mmol/IAsymdm890-826AmwSouthwest General Health Center Comment on above:Performed By: #### BMP, TSH #### [facility] [place] [facility] [address] [place] [address] Dr. Reema Britt nitrogen [Mass/Vol]8.0 mg/dLNormal7.0-18.0The [facility], BeachwoodComment on above:Performed By: #### BMP, TSH #### [facility] [place] [facility] [address] [place] [address] Dr. Reema Britt nitrogen/Creatinine [Mass ratio]10.1 mg/mgNoSuburban Community Hospital & Brentwood HospitalComment on above:Performed By: #### BMP, TSH #### [facility] [place] [facility] [address] [place] [address] Dr. Reema Walters [id number] Coag (PPP) [Relative time]1.00 {INR} NormalThe [facility], BeachwoodComment on above:Performed By: #### PT, PTT #### [facility] [place] [facility] [address] [place] [address] Dr. Reema Painter [facility] CENTERSEE BELOWMercy Health St. Anne HospitalComment on above:Result Comment: DESIRED INR: 2.0 - 3.0 CONDITIONS NOT LISTED BELOW 2.5 - 3.5 FOR PROSTHETIC HEART VALVE REPLACEMENT 2.5 - 3.5 RECURRENT THROMBOSIS Performed By: #### PT, PTT #### [facility] [place] [facility] [address] [place] [address] Dr. Reema Gordillo Coag (PPP) [Time]10.8 sNormal9.0-11.6The [facility] [place] Comment on above:Performed By: #### PT, PTT #### [facility] [place] [facility] [address] [place] [address] Dr. Reema Rueda 78-81-2767rQZT Coag (Bld) [Time]30.8 oMlcxcx62.3-36.2South[facility] General Health CenterComment on above:Performed By: #### PT, PTT #### [facility] [place] [facility] [address] [address] [address] Reema Vieyra RATE WESTERGRENon 40-20-4167BXN RATE10 mm/hrNormal<=20The [facility], BeachwoodComment on above:Performed By: #### BMP, TSH #### [facility] [place] [facility] [address] [address] [address] Reema Kruse 76-36-1946FJF4.313 uIU/mLNormal0.358-3.740The [facility], BeachwoodComment on above:Performed By: #### BMP, TSH #### [facility] [place] [facility] [address] [place] [address] Dr. Reema Boucher Instructionson 32-84-6414Dlpyhjwnq Instructions [id number]#1.00CD:127[facility] SystemalKettering Health – Soin Medical CenterComment on above:Other Comment: wrong patientSTOOL CULTUREon 04-20-2022 Campylobacter CultureFinal reportNoSuburban Community Hospital & Brentwood HospitalComment on above: Performed By: #### BMP, TSH #### [facility] [place] [facility] [address] [place] [address] Dr. Reema ordoñez Shiga Toxin EIANegativeNormalNegativeThe [facility] [place] Comment on above:Performed By: #### BMP, TSH #### [facility] [place] [facility] [address] [place] [address] Dr. Reema Villarreal 1CommentNoSuburban Community Hospital & Brentwood HospitalComment on above:Result Comment: No Salmonella or Shigella recovered.Performed By: #### BMP, TSH #### [facility] [place] [facility] [address] [place] [address] Dr. Reema Villarreal Comment: No Campylobacter species isolated. Salmonella/Shigella ScreenFinal reportMercy Health St. Anne HospitalComment on above:Performed By: #### BMP, TSH #### [facility] [place] [facility] [address] [place] [address] Dr. Reema Rodriguez Summary.on 25-88-7002Beqgqw Summary. CD:[id number] [file] bGxh (more content not included)...NormalFisher Meritus Medical CenterC AUTO DIFFon 40-18-6706TWZD #0.1 103/ulNormal0.0-0.1The [facility], BeachwoodComment on above:Performed By: #### CVDTBH #### [facility] [place] [facility] [address] [address] [address] Reema MirelesBasophils/100 WBC (Bld)0.6 %Normal0.2-2.0The [facility] [place] Comment on above:Performed By: #### CVDTBH #### [facility] [place] [facility] [address] [place] [address] Dr. Reema Lowe #0.0 103/ulNormal0.0-0.7The [facility], BeachwoodComment on above: Performed By: #### CVDTBH #### [facility] [place] [facility] [address] [address] [address] Reema Carpenterosinophils/100 WBC (Bld)0.2 %Critically low0.9-7.0The [facility], BeachwoodComment on above:Performed By: #### CVDTBH #### [facility] [place] [facility] [address] [address] [address] Reema Carpenterrythrocyte distribution width (RBC) [Ratio]11.4 %Mencym88.0-15.0 The [facility], BeachwoodComment on above:Performed By: #### CVDTBH #### [facility] [place] [facility] [address] [address] [address] Reema MirelesHematocrit (Bld) [Volume fraction]38.3 %Osryim02.0-48.0The [facility], BeachwoodComment on above:Performed By: #### CVDTBH #### [facility] [place] [facility] [address] [place] [address] Dr. Reema MirelesHemoglobin (Bld) [Mass/Vol]13.4 g/uMIkbqpn73.0-16.0The [facility], [place]woodComment on above:Performed By: #### CVDTBH #### [facility] [place] [facility] [address] [place] [address] Dr. Reema Rocha #0.01 10e3/ulNormal0.00-0.03The [facility], BeachwoodComment on above:Performed By: #### CVDTBH #### [facility] [place] [facility] [address] [place] [address] Dr. Reema Rocha %0.1 %Normal0.0-0.5The [facility], BeachwoodComment on above: Performed By: #### CVDTBH #### [facility] [place] [facility] [address] [place] [address] Dr. Reema Zayas #1.8 103/ulNormal1.2-3.8The [facility], BeachwoodComment on above:Performed By: #### CVDTBH #### [facility] [place] [facility] [address] [place] [address] Dr. Reema Kimhocytes/100 WBC (Bld)22.2 %Nrncaz59.5-60.0The [facility], BeachwoodComment on above:Performed By: #### CVDTBH #### [facility] [place] [facility] [address] [place] [address] Dr. Reema Puckett DIFF REQNONormalThe [facility], BeachwoodComment on above: Performed By: #### CVDTBH #### [facility] [place] [facility] [address] [place] [address] Dr. Reema Burkett (RBC) [Entitic mass]30.6 lfTgeril56.7-34.0The [facility], BeachwoodComment on above:Performed By: #### CVDTBH #### [facility] [place] [facility] [address] [place] [address] Dr. Reema Vincent (RBC) [Mass/Vol]35.0 g/kFMpjvnv47.9-35.2The [facility], BeachwoodComment on above:Performed By: #### CVDTBH #### [facility] [place] [facility] [address] [place] [address] Dr. Yilan ChangMCV (RBC) [Entitic vol]87.4 uZGzwont59.0-99.0The [facility], BeachwoodComment on above:Performed By: #### CVDTBH #### [facility] [place] [facility] [address] [place] [address] Dr. Reema Weller #0.7 103/ulNormal0.3-0.8The [facility], BeachwoodComment on above:Performed By: #### CVDTBH #### [facility] [place] [facility] [address] [place] [address] Dr. Reema Galiciaocytes/100 WBC (Bld)8.2 %Normal1.7-12.0The [facility] [place] Comment on above:Performed By: #### CVDTBH #### [facility] [place] [facility] [address] [place] [address] Dr. Reema Bradshaw #5.5 103/ulNormal1.4-6.5The [facility], BeachwoodComment on above:Performed By: #### CVDTBH #### [facility] [place] [facility] [address] [place] [address] Dr. Reema Oneilutrophils/100 WBC (Bld)68.7 %Dpuxqo25.0-75.0The [facility], BeachwoodComment on above:Performed By: #### CVDTBH #### [facility] [place] [facility] [address] [place] [address] Dr. Reema Hodgsonlet mean volume (Bld) [Entitic vol]10.1 fLNormal9.5-13.5The [facility], BeachwoodComment on above:Performed By: #### CVDTBH #### [facility] [place] [facility] [address] [place] [address] Dr. Reema WatkinsT404 103/rmXdbaoq112-414Lla [facility], BeachwoodComment on above: Performed By: #### CVDTBH #### [facility] [place] [facility] [address] [place] [address] Dr. Reema MirelesRBC4.38 106/ulNormal4.20-5.40The [facility], BeachwoodComment on above:Performed By: #### CVDTBH #### [facility] [place] [facility] [address] [place], [place] [address] Dr. Reema MirelesWBC8.0 103/ulNormal4.0-11.0The [facility], BeachwoodComment on above: Performed By: #### CVDTBH #### [facility] [place] [facility] [address] [place], [place] [address] Dr. Reema MirelesCT HEAD WO CONon 65-25-4361IV HEAD WO CONEXAMINATION: CT HEAD WO CON [...] 16:29NoSuburban Community Hospital & Brentwood HospitalDischarge Instructionson 75-88-4069Lmyferlxs Instructions [id number]#1.00CD:127NormalFisher City Hospital CenterED Note-Physicianon 47-39-7432JT Note-PhysicianBasic Information Time Seen: Lata Hardy M.D. 04/12/2022 19:56 Chief Complaint Pt. presents to the ed with c/o headache and vertigo since thursday. Pt. was seen [facility] and started on prednisone. pt. stopped taking [...] The patient states she was seen at [facility] discharged home. She went to [...] She has been seen at [facility] and started on prednisone. Possible her symptoms [...] 3 days 04/15/2022 EDT [facility] Business (1) Additional Instructions: Return to [...] data available. Diagnostic Results No qualifying data available.[facility] Health SystemComment on above: Result Comment: Electronically Signed By: Antony Villa, Lata Baxter\.br\Date and Time Signed: 04/13/2204:56 EDTER URINE PROFILEon 98-12-1914Jsonjstjv Ql (U) NegativeNormalNEGATIVESouthwest General Health CenterComment on above:Performed By: #### PREGU, ERUR #### [facility] [place] [facility] [address] [place] [address] Dr. Reema Guzmán (U)CLEARNormalCLEARSouthwest General Health CenterComment on above: Performed By: #### PREGU, ERUR #### [facility] [place] [facility] [address] [address] [address] Reema Jiménez (U)LT. YELLOWNormalYELLOWSouthwest General Health CenterComment on above:Performed By: #### PREGU, ERUR #### [facility] [place] [facility] [address] [address] [address] Reema Rivas micrscopic examination will be performed if indicated. NormalSouthwest General Health CenterComment on above:Performed By: #### PREGU, ERUR #### [facility] [place] [facility] [address] [place] [address] Dr. Reema Guerreroose Ql (U)NegativeNormalNEGATIVESouthwest General Health CenterComment on above:Performed By: #### PREGU, ERUR #### [facility] [place] [facility] [address] [place] [address] Dr. Reema MirelesHemoglobin Ql (U)NegativeNormalNEGATIVESouthwest General Health Center Comment on above:Performed By: #### PREGU, ERUR #### [facility] [place] [facility] [address] [place] [address] Dr. Reema MirelesKetones Ql (U)NegativeNormalNEGATIVEThe [facility], BeachwoodComment on above:Performed By: #### PREGU, ERUR #### [facility] [place] [facility] [address] [place] [address] Dr. Reema MirelesLEUKOCYTESNegativeNormalNEGATIVESouthwest General Health CenterComment on above:Performed By: #### PREGU, ERUR #### [facility] [place] [facility] [address] [place] [address] Dr. Reema MirelesNitrite Ql (U)NegativeNormalNEGATIVESouthwest General Health CenterComment on above:Performed By: #### PREGU, ERUR #### [facility] [place] [facility] [address] [place] [address] Dr. Reema MirelespH (U)6.5 [pH]Normal5-9Southwest General Health CenterComment on above: Performed By: #### PREGU, ERUR #### [facility] [place] [facility] [address] [place] [address] Dr. Reema MirelesSPEC GRAVITY1.630Lfyoui9.005-<=1.025The [facility], BeachwoodComment on above:Performed By: #### PREGU, ERUR #### [facility] [place] [facility] [address] [place] [address] Dr. Reema Rodriguez PROTEINNegativeNormalNEGATIVE/ TRACEThe [facility] [place] Comment on above:Performed By: #### PREGU, ERUR #### [facility] [place] [facility] [address] [place] [address] Dr. Reema Ward MICRO INDNOT INDICATEDNoalThEast Liverpool City HospitalComment on above:Performed By: #### PREGU, ERUR #### [facility] [place] [facility] [address] [place] [address] Dr. Reema Jenkinsgen Qn (U)0.2 {Renny'U}/dLNormal0.2 - 1.0The [facility], BeachwoodComment on above:Performed By: #### PREGU, ERUR #### [facility] [place] [facility] [address] [address] [address] Reema MirelesPREGNANCY URon 00-35-6784RGEVKUMGZ, QUALNegativeNormalNEGATIVEThe [facility], BeachwoodComment on above:Performed By: #### PREGU, ERUR #### [facility] [place] [facility] [address] [address] [address] Reema MirelesPROF CHEM 8 (BAS METB)on 14-25-9472Ofzfb gap [Moles/Vol]14.0 mmol/LNormalThe [facility], BeachwoodComment on above:Performed By: #### BMP, TSH #### [facility] [place] [facility] [address] [address] [address] Reema MirelesCalcium [Mass/Vol]9.2 mg/dLNormal8.5-10.1The [facility] [place] Comment on above:Performed By: #### BMP, TSH #### [facility] [place] [facility] [address] [address] [address] Reema MirelesChloride [Moles/Vol]102 mmol/KBsuehv30-945Ayv [facility] [place] Comment on above:Performed By: #### BMP, TSH #### [facility] [place] [facility] [address] [address] [address] Reema MirelesCO2 [Moles/Vol]26.3 mmol/LRyimtj81.0-32.0The [facility] [place] Comment on above:Performed By: #### BMP, TSH #### [facility] [place] [facility] [address] [address] [address] Reema MirelesCreatinine [Mass/Vol]0.65 mg/dLNormal0.55-1.02The [facility], BeachwoodComment on above:Performed By: #### BMP, TSH #### [facility] [place] [facility] [address] [address] [address] Benavidez ChangEGFR-AF MAURITANIAN>60Normal>=60The [facility], BeachwoodComment on above:Performed By: #### BMP, TSH #### [facility] [place] [facility] [address] [address] [address] Reema CarpenterGFR-NON AF MAURITANIAN>60Normal>=60The [facility], BeachwoodComment on above:Performed By: #### BMP, TSH #### [facility] [place] [facility] [address] [address] [address] Reema MirelesGlucose [Mass/Vol]92 mg/dATicjct89-626Ddl [facility] [place] Comment on above:Performed By: #### BMP, TSH #### [facility] [place] [facility] [address] [place] [address] Dr. Reema MirelesPotassium [Moles/Vol]3.3 mmol/LCritically low3.5-5.1[facility] General Health CenterComment on above:Performed By: #### BMP, TSH #### [facility] [place] [facility] [address] [address] [address] Reema Melissadium [Moles/Vol]139 mmol/ZTqueqk518-570Qqt [facility] [place] Comment on above:Performed By: #### BMP, TSH #### [facility] [place] [facility] [address] [address] [address] Reema MirelesUrea nitrogen [Mass/Vol]8.0 mg/dLNormal7.0-18.0The [facility], BeachwoodComment on above:Performed By: #### BMP, TSH #### [facility] [place] [facility] [address] [place] [address] Dr. Reema Britt nitrogen/Creatinine [Mass ratio]12.3 mg/mgNormalThe [facility], BeachwoodComment on above:Performed By: #### BMP, TSH #### [facility] [place] Laboratory [address] [place] [address] Dr. Reema Kruse 11-25-9595IWC7.293 uIU/mLNormal0.358-3.740Southwest General Health CenterComment on above:Performed By: #### BMP, TSH #### [facility] [place] [facility] [address] [place] [address] Dr. Reema Mcfadden for Treatmenton 53-19-8770Ncwpdrm for Treatment [id number]#1.00CD:127NormalOctavio [facility] Clinical Summaryon 92-67-8969BZ Clinical Summary [place] [id number] ED Clinical Summary Person Information Name: JUANPABLO CHAPARRO Florinda/[facility] Age: 21 Years : 2000 Sex: Female Language: Swedish PCP: ADRYAN MARIE MD Marital Status: Single Phone: [phone] Visit Id: Visit Reason: Vertigo - recurrent; [...] 04/12/2022 21:07:38 04/12/2022 21:07:38 04/12/2022 21:07:38 ADDRESS: [address] [place] [phone] PHYS DOC NOTES: MEDICAL INFORMATION: Prescriptions Given: PATIENT EDUCATION INFORMATION: Instructions: General Headache Without Cause; Vertigo Follow up: With: Address: When: ADRYAN MARIE [address] [place], [place] [id number] Business (1) In 3 days 04/15/2022 Comments: Return to the emergency room if her headache gets worse, vertigo becomes persistent or any new symptoms DIAGNOSIS: 1:Vertigo; 2:HeadacheNormalFisher Ness Medical CenterED Patient Education Note on 28-50-0513WQ Patient Education NoteENT Vertigo Vertigo is the [...] you feel dizzy. General instructions ? Take pspe-txl-wlnifzr and prescription medicines only as told by [...] Reviewed: 08/08/2019 Elsevier Patient Education ? 2019 [employer] Neurology General Headache Without Cause A [...] with your condition: Managing pain ? Take xcub-cat-hdutvmb and prescription medicines only as told by [...] oz bottle of beer (more content not included)...[facility] Patient Summaryon 70-90-7193GM Patient Summary [place] [id number] Patient Discharge Instructions Person Information Name: JUANPABLO CHAPARRO Age: 21 Years Arrival Date: 04/12/2022 19:22:40 Discharge Diagnosis: 1:Vertigo; 2:Headache Primary Care Physician: ADRYAN MARIE MD Provider Information Primary Provider: Lata Hardy M.D. Advanced Heel Wheeler:None The exam and treatment you received in the Emergency Department were for an urgent problem and are not intended as complete care. It is important that you follow up with a doctor, nurse practitioner,or physician?s case management assistant for ongoing care. If your symptoms [...] Instructions: With: Address: When: ADRYAN MARIE [address] [place] [address] [facility] ([employer] In 3 days 04/15/2022 Comments: Return to [...] opioids can be used to help relieve mpmcjcus-mj-jyshsq pain and are often prescribed following a [...] your community drug take- back program or [employer] mail-back program, or flush them down the toilet, following guidance from the Food and Drug Administration (www.fda.gov/Drugs/ResourcesForYou). ? Visit www.cdc.gov/drugoverdose to learn about the risks of opioids abuse and overdose. ? If you believe you may be struggling with addiction, tel (more content not included)...[facility] AUTO DIFFon 27-70-0115MWTE #0.1 103/ulNormal0.0-0.1The [facility], BeachwoodComment on above:Performed By: #### BMP, TSH #### [facility] [place] Laboratory [address] [place] [address] Dr. Reema MirelesBasophils/100 WBC (Bld)0.5 %Normal0.2-2.0[facility] Comment on above:Performed By: #### BMP, TSH #### [facility] [address] [place] [address] Dr. Reema Lowe #0.1 103/ulNormal0.0-0.7The Select [facility] BeachwoodComment on above: Performed By: #### BMP, TSH #### [facility] [place] [facility] [address] [place] [address] Dr. Reema Carpenterosinophils/100 WBC (Bld)1.0 %Normal0.9-7.0The [facility] [place] Comment on above:Performed By: #### BMP, TSH #### [facility] [place] [facility] [address] [place] [address] Dr. Reema Carpenterrythrocyte distribution width (RBC) [Ratio]11.7 %Ixtkda85.0-15.0 The [facility] [place]woodComment on above:Performed By: #### BMP, TSH #### [facility] [place] [facility] [address] [place] [address] Dr. Reema MirelesHematocrit (Bld) [Volume fraction]37.2 %Zivxbt44.0-48.0[facility] Health CenterComment on above:Performed By: #### BMP, TSH #### [facility] [place] [facility] [address] [place] [address] Dr. Reema MirelesHemoglobin (Bld) [Mass/Vol]12.8 g/aLPvozhs60.0-16.0The [facility] [place]woodComment on above:Performed By: #### BMP, TSH #### [facility] [place] [facility] [address] [place] [address] Dr. Reema Rocha #0.02 10e3/ulNormal0.00-0.03The [facility] [place]woodComment on above:Performed By: #### BMP, TSH #### [facility] [place] [facility] [address] [place] [address] Dr. Reema Rocha %0.2 %Normal0.0-0.5The [facility] [place]woodComment on above: Performed By: #### BMP, TSH #### [facility] [place] [facility] [address] [place] [address] Dr. Reema Zayas #1.8 103/ulNormal1.2-3.8The [facility] [place]woodComment on above:Performed By: #### BMP, TSH #### [facility] [place] [facility] [address] [place] [address] Dr. Reema Kimhocytes/100 WBC (Bld)19.0 %Critically low20.5-60.0The [facility] [place]woodComment on above:Performed By: #### BMP, TSH #### [facility] [place] [facility] [address] [place] [address] Dr. Reema StephensUAL DIFF REQNONormalThe [facility] [place]woodComment on above: Performed By: #### BMP, TSH #### [facility] [place] [facility] [address] [place] [address] Dr. Reema Vincent (RBC) [Entitic mass]30.4 qvYizyxa79.7-34.0The [facility] [place]woodComment on above:Performed By: #### BMP, TSH #### [facility] [place] [facility] [address] [place] [address] Dr. Reema Vincent (RBC) [Mass/Vol]34.4 g/jUJjmigl39.9-35.2The [facility]woodComcorewell [facility] on above:Performed By: #### BMP, TSH #### [facility] [place] [facility] [address] [place] [address] Dr. Reema Vincent (RBC) [Entitic vol]88.4 wOAnrqjy41.0-99.0The [facility] [place]woodComment on above:Performed By: #### BMP, TSH #### [facility] [place] [facility] [address] [place] [address] Dr. Reema Weller #0.7 103/ulNormal0.3-0.8The [facility] [place]woodComment on above:Performed By: #### BMP, TSH #### [facility] [place] [facility] [address] [place] [address] Dr. Reema Galiciaocytes/100 WBC (Bld)6.8 %Normal1.7-12.0The [facility] [place] Comment on above:Performed By: #### BMP, TSH #### [facility] [place] [facility] [address] [place] [address] Dr. Reema OneilUT #7.0 103/ulCritically high1.4-6.5The [facility] [place] Comment on above:Performed By: #### BMP, TSH #### [facility] [place] [facility] [address] [place] [address] Dr. Reema Oneilutrophils/100 WBC (Bld)72.5 %Uoxcxa24.0-75.0The [facility] [place]woodComment on above:Performed By: #### BMP, TSH #### [facility] [place] [facility] [address] [place] [address] Dr. Reema MirelesPlatelet mean volume (Bld) [Entitic vol]10.3 fLNormal9.5-13.5The [facility] [place]woodComment on above:Performed By: #### BMP, TSH #### [facility] [place] [facility] [address] [place] [address] Dr. Reema MirelesPLT358 103/jqNsiert053-107Wsn [facility] [place]woodComment on above: Performed By: #### BMP, TSH #### [facility] [place] [facility] [address] [place] [address] Dr. Reema MirelesRBC4.21 106/ulNormal4.20-5.40The [facility] [place]woodComment on above:Performed By: #### BMP, TSH #### [facility] [place] [facility] [address] [place] [address] Dr. Reema MirelesWBC9.7 103/ulNormal4.0-11.0The [facility] [place]woodComment on above: Performed By: #### BMP, TSH #### [facility] [place] [facility] [address] [place] [address] Dr. Reema Quijano BLOODon [id number] examination of blood, cultureCulture Observations: NO GROWTH AT 5 DAYS.NormalWood County Hospital HospitalComment on above:Performed By: #### BMP, TSH #### [facility] [place] [facility] [address] [place] [address] Dr. Reema Griffin URINE PROFILEon [id number] Ql (U)NegativeNormal NEGATIVEWood County Hospital HospitalComment on above:Performed By: #### BMP, TSH #### [facility] [place] [facility] [address] [place] [address] Dr. Reema MirelesClarity (U)CLEARNormalCLEARWood County Hospital HospitalComment on above: Performed By: #### BMP, TSH #### [facility] [place] [facility] [address] [place] [address] Dr. Reema Jiménez (U)LT. YELLOWNormalYELLOWSouthwest General Health CenterComment on above:Performed By: #### BMP, TSH #### [facility] [place] [facility] [address] [place] [address] Dr. Reema Rivas micrscopic examination will be performed if indicated. NormalWood County Hospital HospitalComment on above:Performed By: #### BMP, TSH #### [facility] [place] [facility] [address] [place] [address] Dr. Reema MirelesGlucose Ql (U)NegativeNormalNEGATIVEWood County Hospital HospitalComment on above:Performed By: #### BMP, TSH #### [facility] [place] [facility] [address] [place] [address] Dr. Reema MirelesHemoglobin Ql (U)TRACE-INTACTAbnormalNEGATIVEWood County Hospital HospitalComment on above:Performed By: #### BMP, TSH #### [facility] [place] [facility] [address] [place] [address] Dr. Reema MirelesKetones Ql (U)NegativeNormalNEGATIVEWood County Hospital HospitalComment on above:Performed By: #### BMP, TSH #### [facility] [place] [facility] [address] [place] [address] Dr. Reema MirelesLEUKOCYTESNegativeNormalNEGATIVEWood County Hospital HospitalComment on above:Performed By: #### BMP, TSH #### [facility] [place] [facility] [address] [address] [address] Reema Calhoun Ql (U)NegativeNormalNEGATIVEThe [facility] [place]woodComment on above:Performed By: #### BMP, TSH #### [facility] [place] [facility] [address] [address] [address] Reema MirelespH (U)5.5 [pH]Normal5-9The [facility] [place]woodComment on above: Performed By: #### BMP, TSH #### [facility] [place] [facility] [address] [place] [address] Dr. Reema MirelesSPEC GRAVITY<=1.565Dehmkstz8.005-<=1.025The [facility] [place] Comment on above:Performed By: #### BMP, TSH #### [facility] [place] [facility] [address] [place] [address] Dr. Reema Rodriguez PROTEINNegativeNormalNEGATIVE/ TRACEThe [facility] [place] Comment on above:Performed By: #### BMP, TSH #### [facility] [place] [facility] [address] [place] [address] Dr. Reema Ward MICRO INDINDICATEDNormalThEast Liverpool City HospitalComment on above: Performed By: #### BMP, TSH #### [facility] [place] [facility] [address] [place] [address] Dr. Reema Wingbilinogen Qn (U)0.2 {Renny'U}/dLNormal0.2 - 1.0The [facility] [place]woodComment on above:Performed By: #### BMP, TSH #### [facility] [place] [facility] [address] [place] [address] Dr. Reema MirelesLACTATE/LACTIC ACIDon [id number] [Moles/Vol]2.2 mmol/L Critically high0.4-1.9The [facility] [place]woodComment on above:Performed By: #### BMP, TSH #### [facility] [place] [facility] [address] [place] [address] Dr. Reema MirelesPREGNANCY URon [id number], QUALNegativeNormalNEGATIVEThe Bk HospitalComment on above:Performed By: #### BMP, TSH #### [facility] [place] [facility] [address] [address] [address] Reema MirelesPROF 14(COMP METB)on [id number] [Mass/Vol]4.5 g/dLNormal 3.4-5.0The [facility] [place]woodComment on above:Performed By: #### CMP #### [facility] [place] [facility] [address] [place] [address] Dr. Reema MirelesAlbumin/Globulin [Mass ratio]1.3 {ratio}NormalThe [facility] BeachwoodComment on above:Performed By: #### CMP #### [facility] [place] [facility] [address] [place] [address] Dr. Reema Porter [Catalytic activity/Vol]83 U/EYqztfs62-140Icn [facility] BeachwoodComment on above:Performed By: #### CMP #### [facility] [place] [facility] [address] [place] [address] Dr. Reema LinT [Catalytic activity/Vol]26 U/IItotrh55-96Mkj [facility] [place]woodComment on above:Performed By: #### CMP #### [facility] [place] [facility] [address] [place] [address] Dr. Reema Tan gap [Moles/Vol]14.9 mmol/LNormalThe [facility] [place] Comment on above:Performed By: #### CMP #### [facility] [place] [facility] [address] [place] [address] Dr. Reema MirelesAST [Catalytic activity/Vol]12 U/LCritically jye90-12Mrm [facility] BeachwoodComment on above:Performed By: #### CMP #### [facility] [place] [facility] [address] [place] [address] Dr. Reema MirelesBilirubin [Mass/Vol]0.3 mg/dLNormal0.2-1.0The [facility] [place] Comment on above:Performed By: #### CMP #### [facility] [place] [facility] [address] [place] [address] Dr. Reema MirelesCalcium [Mass/Vol]9.6 mg/dLNormal8.5-10.1[facility] Comment on above:Performed By: #### CMP #### [facility] [place] [facility] [address] [address] [address] Reema MirelesChloride [Moles/Vol]103 mmol/VWjzgbr29-911Tar [facility] [place] Comment on above:Performed By: #### CMP #### [facility] [place] [facility] [address] [address] [address] Reema MirelesCO2 [Moles/Vol]24.4 mmol/SHcnpnz79.0-32.0The [facility] [place] Comment on above:Performed By: #### CMP #### [facility] [place] [facility] [address] [address] [address] Reema MirelesCreatinine [Mass/Vol]0.87 mg/dLNormal0.55-1.02The [facility] [place]woodComment on above:Performed By: #### CMP #### [facility] [place] [facility] [address] [address] [address] Reema CarpenterGFR-AF MAURITANIAN>60Normal>=60The [facility] [place]woodComment on above:Performed By: #### CMP #### [facility] [place] [facility] [address] [address] [address] Reema CarpenterGFR-NON AF MAURITANIAN>60Normal>=60The [facility] [place]woodComment on above:Performed By: #### CMP #### [facility] [place] [facility] [address] [address] [address] Reema MirelesGlobulin (S) [Mass/Vol]3.5 g/dLNormalThe [facility] [place]woodComment on above:Performed By: #### CMP #### [facility] [place] [facility] [address] [address] [address] Reema MirelesGlucose [Mass/Vol]109 mg/dLCritically nxzx01-624Ode [facility] BeachwoodComment on above:Performed By: #### CMP #### [facility] [place] [facility] [address] [address] [address] Reema MirelesPotassium [Moles/Vol]3.3 mmol/LCritically low3.5-5.1The [facility] [place]woodComment on above:Performed By: #### CMP #### [facility] [place] [facility] [address] [address] [address] Reema MirelesProtein [Mass/Vol]8.0 g/dLNormal6.4-8.2The [facility] [place] Comment on above:Performed By: #### CMP #### [facility] [place] [facility] [address] [address] [address] Reema MirelesSodium [Moles/Vol]139 mmol/KKvzddj984-370Kax [facility] [place] Comment on above:Performed By: #### CMP #### [facility] [place] [facility] [address] [address] [address] Reema MirelesUrea nitrogen [Mass/Vol]9.0 mg/dLNormal7.0-18.0The [facility] [place]woodComment on above:Performed By: #### CMP #### [facility] [place] [facility] [address] [address] [address] eRema Britt nitrogen/Creatinine [Mass ratio]10.3 mg/mgNoGood Samaritan Hospitale [facility] [place]woodComment on above:Performed By: #### CMP #### [facility] [place] [facility] [address] [address] [address] Reema Grant MICROSCOPIC ONLYon [id number] SEENNormalNONE SEENSouthwest General Health CenterComment on above:Performed By: #### BMP, TSH #### [facility] [place] [facility] [address] [place] [address] Dr. Reema Arthur identified Cx Nom (U)NOT INDICATEDNoSuburban Community Hospital & Brentwood HospitalComment on above:Performed By: #### BMP, TSH #### [facility] [place] [facility] [address] [address] [address] Reema MirelesCASTNONE SEENNormalNONE SEENSouthwest General Health CenterComment on above:Performed By: #### BMP, TSH #### [facility] [place] [facility] [address] [address] [address] Reema Paizystals LM Nom (Urine sed)NONE SEENNoalNONE SEENThe [facility] [place]woodComment on above:Performed By: #### BMP, TSH #### [facility] [place] [facility] [address] [address] [address] Reema Carpenterpithelial cells LM Ql (Urine sed)RARENormalNONE SEEN /RAREThe [facility] [place]woodComment on above:Performed By: #### BMP, TSH #### [facility] [place] [facility] [address] [place] [address] Dr. Reema MirelesMUCOUSNONE SEENNormalNONE SEENThe [facility] BeachwoodComcorewell health [facility] hospital on above:Performed By: #### BMP, TSH #### [facility] [place] [facility] [address] [place] [address] Dr. Reema MirelesSuqcfJYR3-7Cfltmi1-7Csj [facility] BeachwoodComment on above:Performed By: #### BMP, TSH #### [facility] [place] [facility] [address] [place] [address] Dr. Reema MirelesWBCNONE SEENNormalNONE SEENThe [facility] BeachwoodComcorewell health [facility] hospital on above: Performed By: #### BMP, TSH #### [facility] [place] [facility] [address] [place] [address] Dr. Reema Stanford AUTO DIFFon [id number] #0.0 103/ulNormal0.0-0.1The [facility] [place]woodComment on above:Performed By: #### CBC #### [facility] [place] [facility] [address] [place] [address] Dr. Reema MirelesBasophils/100 WBC (Bld)0.6 %Normal0.2-2.0[facility] Comment on above:Performed By: #### CBC #### [facility] [place] [facility] [address] [place] [address] Dr. Reema Lowe #0.1 103/ulNormal0.0-0.7The [facility] on above: Performed By: #### CBC #### [facility] [place] [facility] [address] [place] [address] Dr. Reema Carpenterosinophils/100 WBC (Bld)1.8 %Normal0.9-7.0The [facility] [place] Comment on above:Performed By: #### CBC #### [facility] [place] [facility] [address] [place] [address] Dr. Reema Carpenterrythrocyte distribution width (RBC) [Ratio]11.9 %Czdwxk02.0-15.0 The [facility] [place]woodComment on above:Performed By: #### CBC #### [facility] [place] [facility] [address] [place] [address] Dr. Reema MirelesHematocrit (Bld) [Volume fraction]38.1 %Gicvuy81.0-48.0The [facility] BeachwoodComment on above:Performed By: #### CBC #### [facility] [place] [facility] [address] [place] [address] Dr. Reema MirelesHemoglobin (Bld) [Mass/Vol]13.1 g/eSQxayhe16.0-16.0The [facility] on above:Performed By: #### CBC #### [facility] [place] [facility] [address] [place] [address] Dr. Reema Rocha #0.01 10e3/ulNormal0.00-0.03The [facility] on above:Performed By: #### CBC #### [facility] [place] [facility] [address] [place] [address] Dr. Reema Rocha %0.1 %Normal0.0-0.5The [facility] BeachwoodComcorewell health [facility] hospital on above: Performed By: #### CBC #### [facility] [place] [facility] [address] [place] [address] Dr. Reema KimH #1.9 103/ulNormal1.2-3.8The [facility] on above:Performed By: #### CBC #### [facility] [place] [facility] [address] [place] [address] Dr. Reema Barnettmphocytes/100 WBC (Bld)27.8 %Xhcmwv30.5-60.0The [facility] on above:Performed By: #### CBC #### [facility] [place] [facility] [address] [place] [address] Dr. Reema StephensUAL DIFF REQNONormalThe [facility] BeachwoodComment on above: Performed By: #### CBC #### [facility] [place] [facility] [address] [address] [address] Reema Vincent (RBC) [Entitic mass]30.5 fsWjqyaj22.7-34.0The [facility] BeachwoodComment on above:Performed By: #### CBC #### [facility] [place] [facility] [address] [place] [address] Dr. Reema Vincent (RBC) [Mass/Vol]34.4 g/zCBcctmx05.9-35.2The [facility] [place]woodComment on above:Performed By: #### CBC #### [facility] [place] [facility] [address] [place] [address] Dr. Reema VincentV (RBC) [Entitic vol]88.8 wKQtypfo81.0-99.0The [facility] BeachwoodComment on above:Performed By: #### CBC #### [facility] [place] [facility] [address] [place] [address] Dr. Reema Weller #0.8 103/ulNormal0.3-0.8The [facility] BeachwoodComment on above:Performed By: #### CBC #### [facility] [place] [facility] [address] [place] [address] Dr. Reema Galiciaocytes/100 WBC (Bld)11.2 %Normal1.7-12.0The [facility] [place] Comment on above:Performed By: #### CBC #### [facility] [place] [facility] [address] [place] [address] Dr. Reema OneilUT #4.0 103/ulNormal1.4-6.5The [facility] BeachwoodComment on above:Performed By: #### CBC #### [facility] [place] [facility] [address] [place] [address] Dr. Reema Oneilutrophils/100 WBC (Bld)58.5 %Rdiusg45.0-75.0The [facility] BeachwoodComment on above:Performed By: #### CBC #### [facility] [place] [facility] [address] [place] [address] Dr. Reema Hodgsonlet mean volume (Bld) [Entitic vol]10.0 fLNormal9.5-13.5The [facility] BeachwoodComment on above:Performed By: #### CBC #### [facility] [place] [facility] [address] [address] [address] Reema MirelesPLT361 103/msRkjaha340-018Skf [facility] BeachwoodComcorewell health [facility] hospital on above: Performed By: #### CBC #### [facility] [place] [facility] [address] [place] [address] Dr. Reema MirelesRBC4.29 106/ulNormal4.20-5.40The [facility] [facility] on above:Performed By: #### CBC #### [facility] [place] [facility] [address] [address] [address] Reema MirelesWBC6.8 103/ulNormal4.0-11.0The [facility] on above: Performed By: #### CBC #### [facility] [place] [facility] [address] [place] [address] Dr. Reema Mendoza QUANT HCGon 81-25-9376OBQ QUANT1 mIU/mLNormalThe [facility] BeachwoodComment on above:Performed By: #### PREGQNT #### [facility] [place] [facility] [address] [place] [address] Dr. Reema SnowG RANGESEE [facility] HospitalComment on above: Result Comment: 5-50 0-1 WEEK 40-300 1-2 WEEKS 100-1,000 2-3 WEEKS 500-6,000 3-4 WEEKS 5,000-200,000 1-2 MONTHS 10,000-100,000 2-3 MONTHS 3,000-50,000 2ND TRIMESTER 1,000-50,000 3RD TRIMESTERPerformed By: #### PREGQNT #### [facility] [place] [facility] [address] [place] [address] Dr. Reema MirelesCovid-19 PCR (CVDTB)on 62-25-5572EXYH-CoV-2 (COVID-19) RNA FRANKIE+probe Ql (Unsp spec)Not detectedNormalNOT DETECTEDThe [facility] [place] Comment on above:Result Comment: This test is not yet approved or cleared by the [place] FDA. When there are no FDA-approved or cleared tests available, and other criteria are met, FDA can make tests available under an emergency access mechanism called an Emergency Use Authorization (EUA). The EUA for this test is supported by the [place] of Health and Human Service's (HHS's) declaration [...] consistent with SARS-CoV-2.Performed By: #### CVDTBH #### [facility] [place] [facility] [address] [place] [address] Dr. Reema Mireles Vital Signs Date TimeVital SignValuePerforming WxlxjnumnCrsbzdww43-31-5721 09:35-0500Body mass index (BMI) [Ratio]37.86 kg/m2Amy Traci FARR Work Phone: [facility] HospitalHrwjfapskk88-59-3450 09:35-0500Body ipoetx708.19 kgCydney FARR Work Phone: [phone] HospitalUipzhefdie23-85-4981 09:35-0500Diastolic blood uxuasqjr16 mm[Hg]Cydney FARR Work Phone: 1([phone]-[facility] HospitalEtnzmtrfws92-63-8740 09:35-0500Systolic blood mm[Hg]Cydney FARR Work Phone: [facility] HospitalXjfrkwjtkd86-78-1859 09:12-0400Body mass index (BMI) [Ratio]36.68 kg/j8Zwwli Omer DO Work Phone: [facility] HospitalAlkhlriwvp60-55-8089 09:12-0400Body .97 kgCorey Omer DO Work Phone: [facility]OUn[facility] HospitalQanlcdbwvv99-76-2968 09:12-0400Diastolic blood dochyhzm07 mm[Hg]Devyn Omer DO Work Phone: [phone] [place], [place] [address]Wwsrjiewbm82-37-5154 09:12-0400Systolic blood pqxpadqw316 mm[Hg]Devyn Omer DO Work Phone: 1(419)[facility] [place], [place] [address]Krhdtztpsr98-51-4372 09:24-0400Body mass index (BMI) [Ratio]36.58 kg/u1Qrfcaprk Chandrakant TAX ADJUSTER Work Phone: 1(419)[facility] [place], [place] [address]Dsgfwztqmr66-09-8102 09:24-0400Body cameex64.7 kg Cydney Chandrakant TAX ADJUSTER Work Phone: 1(419)[facility] [place], [place] [address]Rsljlgyndj57-00-9652 09:24-0400Diastolic blood fihmkvpl00 mm[Hg]Cydney Chandrakant TAX ADJUSTER Work Phone: 1(419)[facility] [place], [place] [address]Xrujmdntud58-09-6410 09:24-0400Systolic blood euxzbjtv817 mm[Hg]Cydney Nolanerly TAX ADJUSTER Work Phone: [phone] [place], [place] [address]Anlrotioos20-42-4004 09:23-0400Body mass index (BMI) [Ratio]36.15 kg/c8Rdyjp Omer DO Work Phone: 1(419)[facility] [place], [place] [address]Jqqkepeucw57-43-2438 09:23-0400Body hcdocz76.54 kgCorey Omer DO Work Phone: 1([phone] [place], [place] [address]Oixkrdbmoi75-80-5671 09:23-0400Diastolic blood bgdcjala31 mm[Hg]Devyn Omer DO Work Phone: 1([phone] [place], [place] [address]Pyohaavrbg32-13-1748 09:23-0400Systolic blood agplhwes235 mm[Hg]Devyn Omer DO Work Phone: 1([phone] [place], [place] [address]2009-09-2025 10:24-0400Body mass index (BMI) [Ratio]35.53 kg/n2Jetaf Omer DO Work Phone: 1(419)[facility] [place], [place] [address]Rltnwcbstc73-77-8353 10:24-0400Body qlkpuy22.84 kgCorey Omer DO Work Phone: 1([phone] [place], [place] [address]Gseoaiqltu59-96-0453 10:24-0400Diastolic blood mm[Hg]Devyn Omer DO Work Phone: [facility] HospitalHyxilzphhw31-76-1280 10:24-0400Systolic blood bybnxxhy535 mm[Hg]Devyn Omer DO Work Phone: [facility] HospitalCnytypjzfw11-81-8244 09:38-0400Body mass index (BMI) [Ratio]34.28 kg/m2Cydney Traci FARR Work Phone: [facility] HospitalWxjfgbbxhb67-83-2616 09:38-0400Body zmxens33.44 kgCydney Traci FARR Work Phone: [facility] HospitalPaoarizedi04-41-4397 09:38-0400Diastolic blood ipcdfkpq96 mm[Hg]Cydney FARR Work Phone: [facility] HospitalIuwkimppjl73-89-3505 09:38-0400Systolic blood xewafqqx710 mm[Hg]Cydney FARR Work Phone: 1(536)688-[address] [place], [place] [address]Zbnpjzgidm99-82-1708 09:14-0400Body mass index (BMI) [Ratio]32.64 kg/k0Mvkam Omer DO Work Phone: 1(625)277-[address] [place], [place] [address]Ufnlmqcpvk14-75-4812 09:14-0400Body pvaigk56.96 kgCorey Omer DO Work Phone: [facility] HospitalTejwdzjiua88-07-6259 09:14-0400Diastolic blood jhzrejlh42 mm[Hg]Devyn Omer DO Work Phone: [facility] HospitalIdxrgrpzyb72-69-4903 09:14-0400Systolic blood rbjwuxyf660 mm[Hg]Devyn Omer DO Work Phone: 1([phone])064-[address] [place], [place] [address]Tkahobdrtt58-45-8636 10:21-0400Body mass index (BMI) [Ratio]32.02 kg/g6Xlwux Omer DO Work Phone: 1(390)894-[address] [place], [place] [address]Oktpumagqq62-35-1207 10:21-0400Body gxyezd10.27 kgCorey Omer DO Work Phone: [facility] HospitalZyoldxsydz92-14-8604 10:21-0400Diastolic blood ejsdcxsf35 mm[Hg]Devyn Omer DO Work Phone: [facility] HospitalLpjkidgfnc88-31-5783 10:21-0400Systolic blood xanadrog927 mm[Hg]Devyn Omer DO Work Phone: [facility] HospitalTqqqtczwqm66-71-3957 09:43-0400Body mass index (BMI) [Ratio]31.95 kg/m2[facility]04-25-2025 09:43-0400Body .09 kg[facility]04-25-2025 09:43-0400Diastolic blood ykkpmxjt77 mm[Hg][facility]04-25-2025 09:43-0400Systolic blood dzeksdvx577 mm[Hg][facility]03-11-2025 11:23-0400Body mass index (BMI) [Ratio]32.12 kg/m2Amy Traci PA Work Phone: [facility] HospitalBkivyjbllz23-85-1633 11:23-0400Body .54 kgAmy Traci PA Work Phone: [facility] HospitalFpewzszatx50-78-2717 11:23-0400Diastolic blood zvdywlcm74 mm[Hg]Cydney Traci PA Work Phone: [facility] HospitalZltwyfjnap01-79-6420 11:23-0400Systolic blood mm[Hg]Cydney Traci PA Work Phone: [facility] HospitalOeflkibuqa51-80-2061 10:12-0500Body mass index (BMI) [Ratio]32.64 kg/y2Ddwwz Omer DO Work Phone: [facility] HospitalDnsjcktbbs10-15-1838 10:12-0500Body gniexp22.96 kgCorey Omer DO Work Phone: [facility] HospitalHzukujzpbg10-02-5770 10:12-0500Diastolic blood mm[Hg]Devyn Omer DO Work Phone: [facility] HospitalUrthgbpmut60-50-3681 10:12-0500Systolic blood xpixfblu576 mm[Hg]Devyn Omer DO Work Phone: 1([phone] [place], [place] [address]Ixmkbnwugm80-86-0618 10:58-0500Body mass index (BMI) [Ratio]34.61 kg/n5Txeiw Omer DO Work Phone: 1(878)[facility] [place], [place] [address]Joquehuxms58-32-7521 10:58-0500Body kztqaq37.35 kgCorey Omer DO Work Phone: 1(770)[facility] [place], [place] [address]Widtimgwpj24-55-8469 10:58-0500Diastolic blood pwolbpky35 mm[Hg]Devyn Omer DO Work Phone: 1(944)[facility] [place], [place] [address]Grvmgyydxo32-58-7775 10:58-0500Systolic blood vhsrpybu983 mm[Hg]Devyn Omer DO Work Phone: [phone])[address] [place], [place] [address]2002-15-2024 14:15-0500Body yciikb316.86 kgCorey Omer DO Work Phone: 1([phone])[facility] [place], [place] [address]Mwjtlxzfwk04-78-9824 14:15-0500Diastolic blood gxbzahas73 mm[Hg]Devyn Omer DO Work Phone: 1(655)[facility] [place], [place] [address]Xhbvixvutf13-37-3831 14:15-0500Systolic blood uaoeqtdj689 mm[Hg]Devyn Omer DO Work Phone: 1([phone] [place], [place] [address]Yibohcvuor56-94-4405 21:04-0400Diastolic blood upowbaaq81 mm[Hg][facility]07-16-2022 21:04-0400Heart rate82 /min[facility]07-16-2022 21:04-0400Respiratory rate16 /min[facility] 04-12-2022 21:04-8477UmY6% (BldA) [Mass fraction]98 %[facility]07-16-2022 21:04-0400Systolic blood wmmlzimg333 mm[Hg][facility]07-16-2022 20:32-7808qtvg93 mg/dLMedina HospitalComment on above:Result Comment: not taken due to pt refusal of any elhgfbdcf48-77-1015 20:32-0400glucMedina Hospital07-16-2022 19:25-0400Body vpbwwpfetoq65.32 [degF][facility]07-16-2022 19:25-0400Diastolic blood cngiaxre93 mm[Hg][facility]07-16-2022 19:25-0400Heart rate90 /min[facility]07-16-2022 19:25-0400Respiratory rate18 /min[facility] 04-12-2022 19:25-0736WhA0% (BldA) [Mass fraction]98 %[facility]07-16-2022 19:25-0400Systolic blood mm[Hg][facility]07-13-2022 12:20-0400Body .1 cm Deonna Nazanin Other [employer] Other 07-13-2022 12:20-0400Body mass index (BMI) [Ratio] 35.61 kg/d6Xqffmy Nazanin Other [employer] Other 07-13-2022 12:20-0400Body egendxbtfyh28.4 [degF]Deonna Nazanin Other [employer] Other 07-13-2022 12:20-0400Body anhyfq64.07 kgRushavila Nazanin Other [employer] Other 07-13-2022 12:20-0400Diastolic blood qunhejdi04 mm[Hg] Deonna Nazanin Other [employer] Other 07-13-2022 12:20-0400Respiratory rate18 /minParomaa Nazanin Other [employer] Other 07-13-2022 12:20-8639RhJ1% (BldA) [Mass fraction]99 % Deonna Cavanaughmond Other [employer] Other 07-13-2022 12:20-0400Systolic blood cnpyvplr546 mm[Hg] Deonna Nazanin Other [employer] Other 07-06-2022 19:00-0400Body barquo960.1 cmPamelavila Back Other [employer] Other 07-06-2022 19:00-0400Body mass index (BMI) [Ratio] 35.71 kg/g6Tplquaanabel Back Other [employer] Other 07-06-2022 19:00-0400Body dfzqtnhnsby67.1 [degF]Deonna Back Other [employer] Other 07-06-2022 19:00-0400Body sssjri26.34 kgPaanabel Back Other [employer] Other 07-06-2022 19:00-0400Diastolic blood lfbvtzei35 mm[Hg] Deonna Cavanaughmond Other [employer] Other 07-06-2022 19:00-0400Respiratory rate18 /minDeonna Back Other [employer] Other 07-06-2022 19:00-9332LuS2% (BldA) [Mass fraction]100 % Deonna Back Other [employer] Other 07-06-2022 19:00-0400Systolic blood ephywbwf077 mm[Hg] Deonna Back Other [employer] Other Encounters Encounter DateEncounter TypeCare ProviderFacilityStart: 08-08-2025 End: 21-66-7818Zrdavk flowsheetCorey Omer DO Work Phone: no [place] [facility]YNStart: 08-08-2025 End: 95-52-0371Ddigvo flowsheetCorey Omer DO Work Phone: NO Bk OBGYNStart: 08-08-2025 End: 26-62-7834pqxyhilidbGLYIC FAZIONot AvailableStart: 08-02-2025 End: 64-36-3469Gswcab Efrain FARR Work Phone: no Bk OBGYNStart: 08-02-2025 End: 86-41-6609Umfaxc flowsDenny FARR Work Phone: noMS Bk OBGYNStart: 08-02-2025 End: 04-44-4380Wuolemibh Result EncounterCydney FARR Work Phone: noMS External Department UnsolicitedStart: 08-02-2025 End: 59-74-8734Imqkgy outpatient visit 15 minutesCydney FARR Work Phone: N[facility]BGYNComment on above:Third trimester ([facility]); 36 weeks gestation of ([facility])Start: 08-02-2025 End: 96-48-5682ugtaimupqmEFF RAMEYNot AvailableStart: 07-18-2025 End: 60-10-7454Ktnddk flowsheetCorey Omer DO Work Phone: noMS [facility] [facility]YNStart: 07-18-2025 End: 04-16-5452Jjumjl flowsheetCorey Omer DO Work Phone: NOMS Bk OBGYNStart: 07-18-2025 End: 70-78-6266Atqhrp outpatient visit 15 minutesCorey Omer DO Work Phone: NOMS Bk OBGYNComment on above:Third trimester ([facility]); 34 weeks gestation of ([facility])Start: 07-18-2025 End: 66-07-8766zgmgbkvbqzOEDLN FAZIONot AvailableStart: 07-05-2025 End: 29-37-1610Kdbtty flowsheetKristina Chandraknat TAX ADJUSTER Work Phone: NOMS Bk OBGYNStart: 07-05-2025 End: 39-50-2660Ufwyku flowsheetKristina Chandrakant TAX ADJUSTER Work Phone: [facility] [facility]BGYNStart: 07-05-2025 End: 07-75-1571Kvxppr outpatient visit 15 minutesKrbam Stallings TAX ADJUSTER Work Phone: [facility] [place] [facility]BGYNComment on above:Third trimester ([facility]); 32 weeks gestation of ([facility])Start: 07-05-2025 End: 07-59-2648eixalmnrhsOFSDIPTU EBERLYNot AvailableStart: 06-20-2025 End: 78-74-1339Acochp outpatient visit 15 minutesCorey Omer DO Work Phone: NOMS Bk OBGYNComment on above:Third trimester ([facility]); 30 weeks gestation of ([facility])Start: 06-20-2025 End: 45-08-6426jklaacnrunMPKXY FAZIONot AvailableStart: 06-06-2025 End: 95-66-3208Twiswq flowsheetCorey Omer DO Work Phone: N[facility]S Bk OBGYNStart: 06-06-2025 End: 16-52-5171Biomfs flowsheetCorey Omer DO Work Phone: NOMS Bk OBGYNStart: 06-06-2025 End: 94-83-8225Supmjr outpatient visit 15 minutesCorey Omer DO Work Phone: NO [place] [facility]BGYNComment on above:Third trimester ([facility]); 28 weeks gestation of ([facility]); size inconsistent with dates ([facility])Start: 06-06-2025 End: 52-83-9071avxtfiztjtVQLPU FAZIONot AvailableStart: 05-26-2025 End: 41-75-9601Bfoesvhyu Result EncounterAmy Traci FARR Work Phone: NOMS External Department UnsolicitedStart: 05-26-2025 End: 00-09-3548Ofmqtxsbo Result EncounterAmy Traci FARR Work Phone: NOMS External Department UnsolicitedStart: 05-16-2025 End: 32-43-9646Notjlg flowsheetCydney FARR Work Phone: N[facility]S Bk OBGYNStart: 05-16-2025 End: 80-61-8980Qzomfe flowsheetCydney FARR Work Phone: N[facility] Bk OBGYNStart: 05-16-2025 End: 78-83-4944pxbtnrxbpyIUM TRACINot AvailableStart: 05-16-2025 End: 28-72-0107Vurlql outpatient visit 15 minutesAmy Traci FARR Work Phone: [facility] [place] [facility]BGYNComment on above:24 weeks gestation of ([facility]); Second trimester ([facility]); Subchorionic hemorrhage of placenta, antepartum ([facility]); Diabetes mellitus screeningStart: 04-18-2025 End: 56-22-2447Vcrygh outpatient visit 15 minutesCorey Omer DO Work Phone: [facility] [place] [facility]BGYNComment on above:Second trimester ([facility]); 21 weeks gestation of ([facility])Start: 04-18-2025 End: 53-53-8631nfdmfwzttxTITMU FAZIONot AvailableStart: 04-18-2025 End: 11-88-0355clycggjvsuRACDA FAZIONot AvailableStart: 03-20-2025 End: 48-22-5843Biidhh flowsheetCorey Omer DO Work Phone: NOIO BCP OBStart: 03-20-2025 End: 46-55-3648Rlygjw flowsheetCorey Omer DO Work Phone: NOMS BCP OBStart: 03-20-2025 End: 09-76-4707Kohihu outpatient visit 15 minutesCorey Omer DO Work Phone: NOMS BCP OBComment on above:17 weeks gestation of ([facility]); Second trimester ([facility]); Screening, , for anatomic survey ([facility]); Exposure to STD; Vaginal dischargeStart: 03-20-2025 End: 13-82-7510gyyxwzqalqPYFJF FAZIONot AvailableStart: 02-27-2025 End: 04-36-1698qnyokmuxcbIKCYF FAZIONot AvailableStart: 02-16-2025 End: 96-34-0367nycimszxtoHRRVR FAZIONot AvailableStart: 02-07-2025 End: 76-34-5021Bkmlvehmd encounterCorey Omer DO Work Phone: NOMS BCP OBStart: 01-30-2025 End: 63-08-5308Ydwagljul Result EncounterCorey Omer DO Work Phone: NOMS External Department UnsolicitedStart: 01-30-2025 End: 95-56-5782Zdvsubxdx Result EncounterCorey Omer DO Work Phone: noMS External Department UnsolicitedStart: 01-20-2025 End: 46-36-9873Fcpgwy outpatient visit 5 minutesNoms Bcp Ob Omer NurseNOMS BCP OBComment on above:GA: 5t5mRvjjs: 01-20-2025 End: 79-90-1509nlkqipethmEWSCK FAZIONot AvailableStart: 12-06-2024 End: 81-09-3131Frhimd outpatient visit 15 minutesAmy Traci FARR Work Phone: [facility] OBComment on above:Exposure to STDStart: 12-06-2024 End: 81-16-2510uhcqranrbjEHY Taqu[employer] AvailableStart: 11-01-2024 End: 60-79-8895Wddkji flowsheetCorey Omer DO Work Phone: NOMS BCP OBStart: 11-01-2024 End: 63-62-0729Tzquxt flowsheetCorey Omer DO Work Phone: NOMS BCP OBStart: 11-01-2024 End: 72-35-3922Xzuehs outpatient visit 15 minutesCorey Omer DO Work Phone: NOMS BCP OBComment on above:Post depression (CMS/HCC)Start: 11-01-2024 End: 55-65-9756luaacailioWLNES FAZIONot AvailableStart: 08-29-2024 End: 93-54-1771Fulcef flowsheetCorey Omer DO Work Phone: noMS BCP OBStart: 08-29-2024 End: 59-43-6325Sgtehm flowsheetCorey Omer DO Work Phone: NOMS BCP OBStart: 08-29-2024 End: 86-39-6518Bkrxyktzq Result EncounterCorey Omer DO Work Phone: noms External Department UnsolicitedStart: 08-29-2024 End: 13-98-4106Hlmdejc encounter procedureCorey Omer DO Work Phone: no[facility] Work Phone: Start: 08-29-2024 End: 51-61-8507Nasdyevz preventive med est patient 18-39 yrsCorey Omer DO Work Phone: [facility] OBComment on above:Well woman exam with routine gynecological exam; UTI symptoms; Missed mensesStart: 08-29-2024 End: 42-86-8985dgyfkobfozQLSUI FAZIONot AvailableStart: 06-13-2024 End: 65-89-1935Kxfptk flowsheetCorey Omer DO Work Phone: NOHR BCP OBStart: 06-13-2024 End: 14-48-9672Ywkagc flowsheetCorey Omer DO Work Phone: NOGJ BCP OBStart: 06-13-2024 End: 18-35-6304Rsid/qhp telephone evaluation 5-10 minCorey Omer DO Work Phone: NOMS BCP OBComment on above:Post depression (CMS/HCC) (Primary Dx)Start: 01-20-2024 End: 60-69-6021Jrkaofwir Result EncounterCorey Omer DO Work Phone: NOKG External Department UnsolicitedStart: 01-20-2024 End: 51-04-9851Dxqlxhysm Result EncounterCorey Omer DO Work Phone: NORG External Department UnsolicitedStart: 01-14-2024 End: 80-25-6893Ufmyyqxvc Result EncounterCorey Omer DO Work Phone: NOVQ External Department UnsolicitedStart: 01-14-2024 End: 73-23-0142Wbygenbfc Result EncounterCorey Omer DO Work Phone: noms External Department UnsolicitedStart: 01-13-2024 End: 61-42-7033Kmzzxdffb Result EncounterCorey Omer DO Work Phone: NONM External Department UnsolicitedStart: 01-13-2024 End: 30-99-7745Snahihgcy Result EncounterCorey Omer DO Work Phone: NOXX External Department UnsolicitedStart: 01-06-2024 End: 50-29-0262Yogyrautl Result EncounterCorey Omer DO Work Phone: NOTY External Department UnsolicitedStart: 01-06-2024 End: 74-58-3983Trdvbowzg Result EncounterCorey Omer DO Work Phone: noms External Department UnsolicitedStart: 12-30-2023 End: 66-89-7760Gkiexjuyd Result EncounterCorey Omer DO Work Phone: noms External Department UnsolicitedStart: 12-30-2023 End: 37-72-1188Wdswaasci Result EncounterCorey Omer DO Work Phone: noms External Department UnsolicitedStart: 12-24-2023 End: 40-19-3037Ozbyabxyz Result EncounterCorey Omer DO Work Phone: noms External Department UnsolicitedStart: 12-24-2023 End: 85-96-0199Qqifynbxx Result EncounterCorey Omer DO Work Phone: noms External Department UnsolicitedStart: 12-23-2023 End: 27-40-1289Olsgopggn Result EncounterCorey Omer DO Work Phone: noms External Department UnsolicitedStart: 12-23-2023 End: 68-06-8881Kpmnhzzem Result EncounterCorey Omer DO Work Phone: noms External Department UnsolicitedStart: 12-16-2023 End: 96-45-1021Zguprurjq Result EncounterCorey Omer DO Work Phone: noms External Department UnsolicitedStart: 12-16-2023 End: 28-14-7690Bgqvrczom Result EncounterCorey Moer DO Work Phone: noms External Department UnsolicitedStart: 12-09-2023 End: 07-25-1829Nqkujxmbg Result EncounterCorey Omer DO Work Phone: noms External Department UnsolicitedStart: 12-09-2023 End: 02-14-9991Mwvlfagtj Result EncounterCorey Omer DO Work Phone: noms External Department UnsolicitedStart: 12-01-2023 End: 82-98-5548Imdlwqdfs Result EncounterCorey Omer DO Work Phone: noms External Department UnsolicitedStart: 12-01-2023 End: 11-48-0509Mernuynkd Result EncounterCorey Omer DO Work Phone: noms External Department UnsolicitedStart: 11-26-2023 End: 87-35-4678Kzcpyigrs Result EncounterCorey Omer DO Work Phone: noms External Department UnsolicitedStart: 11-26-2023 End: 37-52-9970Tnqrddqhv Result EncounterCorey Omer DO Work Phone: noms External Department UnsolicitedStart: 11-12-2023 End: 21-28-8871Wklxtv outpatient visit 15 minutesCorey Omer DO Work Phone: noms BCP OBComment on above:Third trimester ; Excessive growth affecting management of in third trimester, single or unspecified fetusStart: 55-09-4424Dejswyshq Result EncounterAmy Traci CHIKA Work Phone: noms External Department UnsolicitedStart: 11-03-2023 Clinisync Result EncounterAmy Traci PA Work Phone: noms External Department UnsolicitedStart: 09-17-2023 End: 85-51-0612Btgnwxiix Result EncounterCorey Omer DO Work Phone: noms External Department UnsolicitedStart: 09-17-2023 End: 41-52-1632Jyfhgdsvj Result EncounterCorey Omer DO Work Phone: noms External Department UnsolicitedStart: 09-14-2022 End: 57-35-4460hfomykwbwoNC MARK R SMITHFacility:G1Szwmz: 08-11-2022 End: 94-91-7218hapfgwxfryJP MARK R SMITHFacility:R9Zwwqw: 08-09-2022 End: 74-39-2098wcmzppyopwMF DAVID DEFRANCEFacility:V8Lhshx: 08-08-2022 End: 28-54-7932cdpsublqxcHW MARK R SMITHFacility:J1Vmpje: 04-16-2022 End: 47-84-5682okzophkfduXW DAVID DEFRANCEFacility:W6Mmbmj: 04-15-2022 End: 81-55-3563ymtpnaxnsgPW DAVID DEFRANCEFacility:M2Auvpw: 04-13-2022 End: 50-37-3862mxfdjnodweMU DAVID DEFRANCEFacility:V2Qopnl: 04-12-2022 End: 97-85-7977Zdsogjevt department patient visitAstrit [facility] CenterandreeaaniaBerger [facility] Start: 04-10-2022 End: 17-19-6205zpktxnzvakZlutyl Nazanin Other [employer] Other Start: 14-88-5806Rdkqqcush encounterPamela DydevoraFPG Urgent Care ClydeStart: 04-09-2022 End: 14-38-2880sibypltqtbKjoiao Nazanin Other [employer] Other Start: 76-12-9485Vsstvn outpatient visit 15 minutes Deonna DymondFPG [facility]gent Care ClydeStart: 04-09-2022 End: 21-60-1883nttqsxnfnsFR LUIS ANTONIO SUTTONFacility:H8Adcnt: 04-02-2022(URG) Urgent Care VisitPamela DymondFPG [facility] ClydeStart: 04-02-2022 End: 10-02-1521kolxvgehbbRmjlch Nazanin Other [employer] Other Start: 10-25-2021 End: 79-23-6741cdkvzxxawfUX DAVID DEFRANCEFacility:I2Oqgxe: 78-69-9246Rxqwwcgxf for preprocedural laboratory examinationDR [facility] Start: 10-22-2021 End: 85-59-4031pobqjcrkpfOT DAVID DEFRANCEFacility:U4Isygp: 10-22-2021 End: 60-47-2453Tjvkmxzmj for preprocedural laboratory examinationDR ADRYAN DEFRANCEFacility:B2Xnlrv: 02-24-6885Wzmgisgzv for other preprocedural examinationDR [facility]: [facility] End: 33-66-1330bhdrjmgaskZL DAVID DEFRANCEFacility:I9Zjblg: 10-17-2021 End: 31-66-6836Rxofrvhvr for other preprocedural examinationDR ADRYAN BRENNANRANCE Facility:H1 Procedures DateProcedureProcedure DetailPerforming ClinicianStart: 51-42-0161Yxqnf dip stick/tablet rgnt non-auto w/o micrscpAmy Traci FARR Work Phone: Start: 08-85-1364JMETU GP B CULTURE+RFLXAmayur FARR Work Phone: Start: 21-01-7390Rtxlt dip stick/tablet rgnt non-auto w/o micrscpCorey Omer DO Work Phone: Start: 72-63-5907Smjha dip stick/tablet rgnt non-auto w/o micrscpKristina Chandrakant [employer] AD[employer]ER Work Phone: Start: 44-96-7663Hnjsd dip stick/tablet rgnt non-auto w/o micrscpCorey Omer DO Work Phone: Start: 02-22-3541Uskwd dip stick/tablet rgnt non-auto w/o micrscpCorey Omer DO Work Phone: Start: 12-72-1581BAMNIOO 1 HOURAmy Traci FARR Work Phone: Start: 40-05-0314Qdbla dip stick/tablet rgnt non-auto w/o micrscpAmy Traci FARR Work Phone: Start: 28-72-5187Ohgle dip stick/tablet rgnt non-auto w/o micrscpCorey Omer DO Work Phone: Start: 35-38-0729Bfvdc dip stick/tablet rgnt non-auto w/o micrscpCorey Omer DO Work Phone: Start: 46-72-5148ZOU TESTCorey Omer DO Work Phone: Start: 01-20-2025 End: 86-23-7695Gqpct dip stick/tablet rgnt non-auto w/o micrscpCorey Omer DO Work Phone: Start: 71-55-3423Kphrc test visual color cmprsn ramanmayur FARR Work Phone: Start: 08-29-2024 End: 67-06-3474Xpvkz dip stick/tablet rgnt non-auto w/o micrscpCorey Omer DO Work Phone: Start: 53-42-0090CUD,APTIMA HPV,AGE GDLNCorey Omer DO Work Phone: Start: 84-46-5034SH OB BPP W NON-STRESSCorey Omer DO Work Phone: Start: 96-10-5588QV OB GROWTHCorey Omer DO Work Phone: Start: 32-59-3339IB OB GROWTHCorey Omer DO Work Phone: Start: 65-45-3635LZ OB BPP W NON-STRESSCorey Omer DO Work Phone: Start: 27-56-8803GF OB BPP W NON-STRESSCorey Omer DO Work Phone: Start: 13-61-5262TJ OB BPP W NON-STRESSCorey Omer DO Work Phone: Start: 59-31-9987UR OB GROWTHCorey Omer DO Work Phone: Start: 66-59-0194ID OB BPP W NON-STRESSCorey Omer DO Work Phone: Start: 81-93-6318SP OB BPP W NON-STRESSCorey Omer DO Work Phone: Start: 53-91-1577BC OB BPP W NON-STRESSCorey Omer DO Work Phone: Start: 08-61-0291DH OB BPP W NON-STRESSCorey Omer DO Work Phone: Start: 65-01-4604ZY OB GROWTHCorey Omer DO Work Phone: Start: 11-15-9367Pirks dip stick/tablet rgnt non-auto w/o micrscpCorey Omer DO Work Phone: Start: 56-68-5023VFK CBC WITH AUTO DIFFAmy Traci FARR Work Phone: Start: 59-22-2877BN OB ANATOMYCorey Omer DO Work Phone: Start: 47-38-0908PC OB CERVICAL LENGTHCorey Omer DO Work Phone: Plan of Treatment DateCare ActivityDetailAuthorStart: 09-07-2025 End: 18-66-0058Dvrliwj encounter procedureNOMS BCP OBStart: 08-08-2025 End: 70-46-0062Pncmlhf encounter procedureNOMS Bk OBGYNComment on above: ArrivedStart: 08-02-2025 End: 32-02-7267YTCMZRF, GROUP B STREP WITH SUSCEPTIBLITYCULTURE, GROUP B STREP WITH SUSCEPTIBLITY Lab Routine Third trimester ([facility]) Expected: 08/02/2025, Expires: 08/02/2026[facility] Work Phone: comment on above:Expected: 08/02/2025, Expires: 08/02/2026Start: 08-02-2025 End: 45-78-0602Xbadpdn encounter procedureNOMS [place] OBGYNComment on above: ArrivedStart: 07-18-2025 End: 96-18-2777Kvyzddg encounter procedureNOMS Bk OBGYNComment on above: ArrivedStart: 07-05-2025 End: 14-09-7581Hwxmuax encounter procedureNOMS [place] OBGYNComment on above: ArrivedStart: 06-06-2025 End: 49-63-0097OV for pregnancyUS OB follow up transabdominal approach Imaging Routine size inconsistent with dates ([facility]) Expected: 06/06/2025, Expires: 10/06/2025[facility] Work Phone: comment on above:Expected: 06/06/2025, Expires: 10/06/2025Start: 06-06-2025 End: 73-03-3942Dtpftnc encounter procedureNOMS [place] OBGYNComment on above: ArrivedStart: 54-24-8006GCDUX-19 Vaccine ()COVID-19 Vaccine ()[facility]OMS HealthcareStart: 19-83-3402Uaudunrtp vaccinationNOWI HealthcareStart: 05-16-2025 End: 25-47-1422TBH panel - Blood by Automated countCBC Lab Routine Diabetes mellitus screening Expected: 05/16/2025 (Approximate), Expires: 05/16/2026[facility] Work Phone: comment on above:Expected: 05/16/2025 (Approximate), Expires: 05/16/2026Start: 05-16-2025 End: 42-81-0254Jmohrqscenz of glucose 1 hour after glucose challenge for glucose tolerance testGlucose tolerance, 1 hour Lab Routine Diabetes mellitus screening Expected: 05/16/2025 (Approximate), Expires: 05/16/2026[facility] HealthcareComment on above:Expected: 05/16/2025 (Approximate), Expires: 05/16/2026Start: 05-16-2025 End: 89-95-7285Cfriedw encounter /19/2025 9:20 AM EDT Routine [facility]ina [facility] [address] [address] [address] [phone] Cydney Aviles PA [address] [place] [address] NOMSamina [place] OBGYNStart: 04-18-2025 End: 53-48-7826Viwvvrg encounter ebhmxhjok13/22/2025 9:20 AM EDT Routine [facility] [address] [address] [place] [phone] Devyn Tello, DO [address] [place] [address] NOMS BCP OBStart: 04-18-2025 End: 84-58-8578Iewtyaycujrr / ancillary services cjrtjxlvee49/22/2025 8:00 AM EDT Ancillary Procedure [facility] [address] [facility] [phone] NOMS BCP OBStart: 03-20-2025 End: 02-47-3891Qtijf fetoprotein, maternalAlpha fetoprotein, maternal Lab Routine 17 weeks gestation of ([facility]) Second trimester ([facility]) Expected: 03/20/2025 (Approximate), Expires: 04/19/2025[facility] Comment on above:Expected: 03/20/2025 (Approximate), Expires: 04/19/2025Start: 03-20-2025 End: 09-73-6205UB for pregnancyUS OB 14+ weeks anatomy scan Imaging Routine Screening, , for anatomic survey ([facility]) Expected: 03/20/2025, Expires: 06/20/2025[facility] HealthcareComment on above:Expected: 03/20/2025, Expires: 06/20/2025Start: 03-20-2025 End: 65-36-9878Gjqedkt encounter lecbatwpf33/23/2025 10:10 AM EDT Routine [facility] BCP OB [address] [place] [phone] Devyn Tello, DO [address] [place] [address] [facility]rivedNON[facility]AL [facility] OBComment on above: ArrivedStart: 02-21-2025 End: 06-36-5415Fiuatre encounter qovatgfcs94/27/2025 8:50 AM EDT Routine [facility] BCP OB [address] [address] Devyn Tello, DO [address] [place] [address] NOMS BCP OBStart: 01-20-2025 End: 11-26-2852AUE/RhABO/Rh Lab Routine Missed menses , unspecified gestational age Expected: 01/20/2025 (Approximate), Expires: 01/20/2026[facility] HealthcareComment on above:Expected: 01/20/2025 (Approximate), Expires: 01/20/2026Start: 01-20-2025 End: 37-35-7269Mghbe type and Indirect antibody screen panel - BloodType and screen Lab Routine Missed menses , unspecified gestational age Expected: 01/20/2025 (Approximate), Expires: 01/20/2026[facility] Work Phone: comment on above:Expected: 01/20/2025 (Approximate), Expires: 01/20/2026Start: 01-20-2025 End: 19-79-1627Qencj of abuse panel - Urine by Screen methodRapid drug screen, urine Lab Routine , unspecified gestational age Encounter for supervision of normal first in first trimester Expected: 01/20/2025 (Approximate), Expires: 01/20/2026[facility] HealthcareComment on above:Expected: 01/20/2025 (Approximate), Expires: 01/20/2026Start: 11-01-2024 End: 78-89-8633Uuwqzeh encounter ptfmryzhy97/04/2025 10:00 AM EST Office Visit [facility]CP OB [address] [phone] Devyn Tello, DO [address] [place] [address] ArrivedNOMS [facility] OBComment on above:ArrivedStart: 08-29-2024 End: 79-66-3157Dfwyddv encounter procedureNOMS [facility] OBComment on above:Arrived Start: 44-52-1820Ggpufcbnc vaccinationInfluenza Vaccine (#1)[facility] Start: 11-26-2023 End: 89-99-1536Wottuwu encounter btvfkxusg18/29/2024 11:00 AM EST Routine [facility] OB [address] [phone] Cydney Aviles PA [address] [facility] [address] [place], [place] [phone] [facility] OBStart: 11-26-2023 End: 81-16-5107Hpirynxwmqnw / ancillary services fceebztcjo81/29/2024 10:30 AM EST Ancillary Procedure [facility] OB [address] [place] [phone] [facility] OBStart: 11-12-2023 End: 24-81-2504YQ for pregnancyUS OB SCAN FOR GROWTH Imaging Routine Excessive growth affecting management of in third trimester, single or unspecified fetus Expected: 11/12/2023 (Approximate), Expires: 2024[facility] Work Phone: comment on above:Expected: 11/12/2023 (Approximate), Expires: 11/12/2024Start: 11-12-2023 End: 74-97-7366Panmoxa encounter ccijebkbj68/15/2024 10:50 AM EST Routine N[facility] OB [address] [phone] Devyn Tello DO [address] [facility] [facility] [address] [place], [place] [phone] [facility] OBStart: 41-92-4479Yxizvdbmp B Vaccines (1 of 3 - 19+ 3-dose series)Hepatitis B Vaccines (1 of 3 - 19+ 3-dose series)[facility] HealthcareStart: 66-66-3078Jdxsrjfvfgiiv B Vaccine (1 of 2 - Standard)Meningococcal B Vaccine (1 of 2 - Standard)[facility] HealthcareStart: 52-34-0105WCM Vaccines (1 - 3-dose series)HPV Vaccines (1 - 3-dose series)[facility] HealthcareStart: 34-90-5182Eftvakr of varicella vaccinationVaricella Vaccines (1 of 2 - 13+ 2-dose series)[facility] HealthcareStart: 80-87-1099KSdV/Tdap/Td Vaccines (1 - Tdap)DTaP/Tdap/Td Vaccines (1 - Tdap)[facility] HealthcareStart: 19-78-6378QPY Vaccines (1 of 1 - Standard series)MMR Vaccines (1 of 1 - Standard series)NOM HealthcareBacteria identified in Urine by CultureUrine culture Microbiology Routine Missed menses Ordered: 01/20/2025[facility] HealthcareComment on above: Ordered: 01/20/2025BC W Auto Differential panel - BloodCBC and differential Lab Routine Missed menses , unspecified gestational age Ordered: 01/20[facility] HealthcareComment on above:Ordered: 01/20/2025HLAMYDIA TRACHOMATIS (GENITO/STI)CHLAMYDIA TRACHOMATIS (GENITO/STI) Lab Routine Exposure to STD Ordered: 12/06/2024[facility] HealthcareComment on above:Ordered: 12/06/2024HLAMYDIA TRACHOMATIS (GENITO/STI)CHLAMYDIA TRACHOMATIS (GENITO/STI) Lab Routine Exposure to STD Ordered: 03/20/2025[facility] HealthcareComment on above:Ordered: 03/20/2025 Cytology Cervical or vaginal smear or scraping studyPap Smear Pathology and Cytology Routine Well woman exam with routine gynecological exam Ordered: [facility] Work Phone: comment on above:Ordered: 08/29/2024Hemoglobin A1c/Hemoglobin.total in BloodHemoglobin A1c Lab Routine Missed menses , unspecified gestational age Ordered: 01/20/2025[facility] HealthcareComment on above: Ordered: 01/20/2025Hepatitis B virus surface Ag [Presence] in Serum or Plasma by ImmunoassayHepatitis B surface antigen Lab Routine Missed menses , unspecified gestational age Ordered: 01/20/2025[facility] HealthcareComment on above: Ordered: 01/20/2025Hepatitis C virus Ab [Presence] in Serum or Plasma by ImmunoassayHepatitis C antibody Lab Routine Missed menses , unspecified gestational age Ordered: 01/20/2025[facility] HealthcareComment on above:Ordered: 01/20/2025HIV-1/HIV-2 antigen/antibody combination immunoassayHIV-1 and HIV-2 antibodies Lab Routine Missed menses , unspecified gestational age Ordered: 01/20/2025[facility] HealthcareComment on above:Ordered: 01/20/2025Neisseria gonorrhoeae DNA [Presence] in Unspecified specimen by FRANKIE with probe detection Neisseria gonorrhea DNA probe, direct Lab Routine Exposure to STD Ordered: 12/06/2024[facility] HealthcareComment on above:Ordered: 12/06/2024Neisseria gonorrhoeae DNA [Presence] in Unspecified specimen by FRANKIE with probe detection Neisseria gonorrhea DNA probe, direct Lab Routine Exposure to STD Ordered: 03/20/2025[facility] HealthcareComment on above:Ordered: 03/20/2025Reagin Ab [Presence] in Serum by RPRRPR Lab Routine Missed menses , unspecified gestational age Ordered: 01/20/2025[facility] HealthcareComment on above:Ordered: 01/20/2025Rubella antibody, IgGRubella antibody, IgG Lab Routine Missed menses , unspecified gestational age Ordered: 01/20/2025[facility] HealthcareComment on above:Ordered: 01/20/2025SURESWAB(R) ADVANCED VAGINITIS PLUS, TMASURESWAB(R) ADVANCED VAGINITIS PLUS, TMA Pathology and Cytology Routine Exposure to STD Ordered: 12/06/2024[facility] Work Phone: comment on above:Ordered: 12/06/2024SURESWAB(R) ADVANCED VAGINITIS PLUS, TMASURESWAB(R) ADVANCED VAGINITIS PLUS, TMA Pathology and Cytology Routine Vaginal discharge Ordered: 03/20/2025[facility] Work Phone: comment on above:Ordered: 03/20/2025 Payers DatePayer CategoryPayerPolicy [id number] Health InsuranceSUM[facility] MEDICA[facility] [id number] [id number]HEALTH [place] [id number] 2023-Present [address] [place] [address] [id number] 2023Medicaid [id number] 2.0.1.494649.3.57[id number] 2.0.1.402847.3.57[id number] 2.0.1.588982.3.57[id number] 2.0.1.402275.3.57[id number] 2.0.1.767953.3.57[id number] 2.0.1.873845.3.57[id number] 2.840.1.144744.3.57[id number] 2.0.1.167805.3.57[id number] 2.16.840.1.200113.3.57[id number] 2..840.1.310781.3.57[id number] 2.840.1.163679.3.57[id number] 2.840.1.666071.3.57[id number] 2.840.1.511212.3.579.[id number] 2.840.1.452949.3.57[id number] 2.840.1.314436.3.57[id number] 2.840.1.139362.3.579.[id number] 2.840.1.405410.3.579.2.3[id number] 2.840.1.667140.3.57[id number] 2.840.1.995620.3.579.[id number] 2.840.1.892858.3.579.[id number] 2.840.1.811043.3.579.[id number] 2.840.1.630707.3.57[id number] 2.16.840.1.632368.3.57[id number] 2.16.840.1.120716.3.57[id number] 2.16.840.1.741426.3.579.[id number] 2.16.840.1.192852.3.579.2.921305-45-3930Kferuxz4696694 2.16.840.1.679325.3.579.2.160454-07-8062Vjxyoue9842983 2..840.1.837591.3.579.2.547977-36-8192Tpubuhg7578267 2..840.1.411334.3.579.2.102544-89-3443FbqsPlains Regional Medical [id number] 2.840.1.901573.19 Social History DateTypeDetailFacilityUnknown if ever smokedNojohn j. pers[facility] [employer] Other Start: 05-12-2024 End: 97-88-0614Npa Assigned At BirthMinden [employer] Other Tobacco smoking statusNo Smoking Status [facility]: 88-42-7654Koadxeh smoking status NHISTobacco smoking consumption unknownNOMS HealthcareStart: 10-15-2023 End: 64-38-6364Gftrerh intakeLifetime non-drinker (finding)[facility] HealthcareStart: 86-78-3315Hnjmzec CommentCurrent smoker (frequency unknown)[facility] Start: 04-23-0228XcipfcqjtLVGV HealthcareStart: 13-78-0936Eli Assigned At Not on fileNOMS HealthcareStart: 53-60-0326Tfykziy smoking status NHISEx-smoker [facility] HealthcareHistory of tobacco useCurrent smokerNOMS HealthcareStart: 05-12-2024 End: 51-50-7119Lekxoei of Social functionNOWI Healthcare Work Phone: Start: 52-20-4240RedLmbxeoJTTM Healthcare Goals DatePatient GoalDesired Activity/StatePersonal health goal Functional Status PfihWjmzahoxscBpmdnfHiutwbsl71-17-0342Pxzzpov Health Questionnaire 2 item (PHQ- 2) [Reported][facility] HospitalSeiynvvvya51-58-6250Eqtkczwrpr StatusN/AFMer[facility] Clinical Notes 10-25-2021 to 08-02-2025 Note Date & RpypZfvpPpjvymlj03-83-6968 History of Present illness Narrative* Cydney Stallings, YURI - 08/02/2025 9:30 AM EST Reason for Appointment: Patient ID: Juanpablo Chaparro is a 24 y.o. female who presents for Routine Visit Patient presents today for Return OB appointment. MEDICATIONS Current Outpatient Medications Medication Instructions QI-Zkh-WR-Embudo-3 ( GUMMIES/DHA & FA PO) 1 each, Daily ALLERGIES Allergies Allergen Reactions Sulfa Antibiotics Fever, Hives and Rash PROBLEMS Active Ambulatory Problems Diagnosis Date Noted Third trimester ([facility]) 06/20/2025 30 weeks gestation of ([facility]) 06/20/2025 Resolved Ambulatory Problems Diagnosis Date [...] nursing note reviewed. Exam conducted with a business services officer present. Vitals: Estimated body mass index is 37.86 kg/m as calculated from the following: Height as of 03/08/24: 5' 5 . Weight as of this encounter: 227 lb 8 oz. BP: 112/82 Patient's last menstrual period was 11/18/2024 (approximate). Assessment/Plan ICD-10-CM 1. Third trimester ([facility]) Z34.93 POCT urinalysis dipstick manually resulted CULTURE, GROUP B STREP WITH SUSCEPTIBLITY CULTURE, GROUP B STREP WITH SUSCEPTIBLITY 2. 36 weeks gestation of ([facility]) Z3A.36 Return OB: Patient presents today [...] behalf of: CHIKA Lyman documented in this encounterSullivan County Memorial HospitalUmjyjjozyo78-33-6888 History of Present illness Narrative* Tricia Ozuna, PEARL MAKER - 07/18/2025 9:00 AM EDT Reason for Appointment: Patient ID: Juanpablo Chaparro is a 24 y.o. female who presents for Routine Visit Patient presents today for Return OB appointment. MEDICATIONS Current Outpatient Medications Medication Instructions OW-Suh-KA-Embudo-3 ( GUMMIES/DHA & FA PO) 1 each, Daily ALLERGIES Allergies Allergen Reactions Sulfa Antibiotics Fever, Hives and Rash PROBLEMS Active Ambulatory Problems Diagnosis Date Noted Third trimester ([facility]) 06/20/2025 30 weeks gestation of ([facility]) 06/20/2025 Resolved Ambulatory Problems Diagnosis Date [...] nursing note reviewed. Exam conducted with a business services officer present. Vitals: Estimated body mass index is 36.68 kg/m as calculated from the following: Height as of 03/08/24: 5' 5 . Weight as of this encounter: 220 lb 6.4 oz. BP: 126/70 Patient's last menstrual period was 11/18/2024 (approximate). Assessment/Plan ICD-10-CM 1. Third trimester ([facility]) Z34.93 2. 34 weeks gestation of ([facility]) Z3A.34 POCT urinalysis dipstick manually resulted [...] of: Devyn Tello DO documented in this encounterSullivan County Memorial HospitalXsenpgssxf34-32-2323 History of Present illness Narrative* Cydney Stallings, YURI - 07/05/2025 9:20 AM EDT Reason for Appointment: Patient ID: Juanpablo Chaparro is a 24 y.o. female who presents for Routine Visit Patient presents today for Return OB appointment. MEDICATIONS Current Outpatient Medications Medication Instructions NW-Hsb-UH-Embudo-3 ( GUMMIES/DHA & FA PO) 1 each, Daily ALLERGIES Allergies Allergen Reactions Sulfa Antibiotics Fever, Hives and Rash PROBLEMS Active Ambulatory Problems Diagnosis Date Noted Third trimester ([facility]) 06/20/2025 30 weeks gestation of ([facility]) 06/20/2025 Resolved Ambulatory Problems Diagnosis Date [...] nursing note reviewed. Exam conducted with a business services officer present. Vitals: Estimated body mass index is 36.58 kg/m as calculated from the following: Height as of 24: 5' 5 . Weight as of this encounter: 219 lb 12.8 oz. BP: 118/78 Patient's last menstrual period was 11/18/2024 (approximate). ASSESSMENT & PLAN ICD-10-CM 1. Third trimester ([facility]) Z34.93 2. 32 weeks gestation of ([facility]) Z3A.32 POCT urinalysis dipstick manually resulted [...] of: Cydney Stallings NP documented in this encounterSullivan County Memorial HospitalOopvujcdhs73-38-2790 History of Present illness Narrative* Tricia Ozuna LPN - 06/20/2025 9:30 AM EDT Reason for Appointment: Patient ID: Juanpablo Chaparro is a 24 y.o. female who presents for Routine Visit Patient presents today for Return OB appointment. MEDICATIONS Current Outpatient Medications Medication Instructions GO-Wvm-WH-Embudo-3 ( GUMMIES/DHA & FA PO) 1 each, Daily ALLERGIES Allergies Allergen Reactions Sulfa Antibiotics Fever, Hives and Rash PROBLEMS Active Ambulatory Problems Diagnosis Date Noted Third trimester ([facility]) 06/20/2025 30 weeks gestation of ([facility]) 06/20/2025 Resolved Ambulatory Problems Diagnosis Date [...] nursing note reviewed. Exam conducted with a business services officer present. Vitals: Estimated body mass index is 36.15 kg/m as calculated from the following: Height as of 24: 5' 5 . Weight as of this encounter: 217 lb 4 oz. BP: 112/70 Patient's last menstrual period was 11/18/2024 (approximate). ASSESSMENT & PLAN ICD-10-CM 1. Third trimester ([facility]) Z34.93 POCT urinalysis dipstick manually resulted 2. 30 weeks gestation of ([facility]) Z3A.30 POCT urinalysis dipstick manually resulted [...] of: Devyn Tello DO documented in this encounterSullivan County Memorial HospitalTzlrqlxboi67-13-8039 History of Present illness Narrative* Tricia Ozuna LPN - 06/06/2025 10:20 AM EDT Reason for Appointment: Patient ID: Juanpablo Chapraro is a 24 y.o. female who presents for Routine Visit Patient presents today for Return OB appointment. MEDICATIONS Current Outpatient Medications Medication Instructions AS-Hxt-EN-Embudo-3 ( GUMMIES/DHA & FA PO) 1 each, [...] Lung cancer Paternal Grandmother Diabetes Mother's Sister Larua SURGICAL HISTORY Past Surgical History: Procedure Laterality [...] nursing note reviewed. Exam conducted with a business services officer present. Vitals: Estimated body mass index is 35.53 kg/m as calculated from the following: Height as of 03/08/24: 5' 5 . Weight as of this encounter: 213 lb 8 oz. BP: 112/82 Patient's last menstrual period was 11/18/2024 (approximate). ASSESSMENT & PLAN ICD-10-CM 1. Third trimester ([facility]) Z34.93 POCT urinalysis dipstick manually resulted 2. 28 weeks gestation of ([facility]) Z3A.28 Return OB: Patient presents today [...] of: Devyn Tello DO documented in this encounterSullivan County Memorial HospitalHlgxpzzddh32-09-8728 History of Present illness Narrative* CHIKA Lyman - 05/16/2025 9:20 AM EDT Reason for Appointment: Patient ID: Juanpablo Chaparro is a 24 y.o. female who presents for Routine Visit Patient presents today for Return OB appointment. MEDICATIONS Current Outpatient Medications Medication Instructions GN-Exy-PP-Embudo-3 ( GUMMIES/DHA & FA PO) 1 each, [...] PLAN ICD-10-CM 1. 24 weeks gestation of ([facility]) Z3A.24 POCT urinalysis dipstick manually resulted 2. Second trimester ([facility]) Z34.92 POCT urinalysis dipstick manually resulted 3. Subchorionic hemorrhage of placenta, antepartum ([facility]) O46.8X9 4. Diabetes mellitus screening Z13.1 [...] behalf of: CHIKA Lyman documented in this encounterSullivan County Memorial HospitalNbpwxuqmiq35-20-4615 History of Present illness Narrative* Tricia Ozuna, BELL - 04/18/2025 9:20 AM EDT Reason for Appointment: Patient ID: Juanpablo Chaparro is a 24 y.o. female who presents for Routine Visit Patient presents today for Return OB appointment. MEDICATIONS Current Outpatient Medications Medication Instructions SX-Fea-SV-Embudo-3 ( GUMMIES/DHA & FA PO) 1 each, [...] nursing note reviewed. Exam conducted with a business services officer present. Vitals: Estimated body mass index is 32.64 kg/m as calculated from the following: Height as of 03/08/24: 5' 5 . Weight as of this encounter: 196 lb 1.9 oz. BP: 110/78 Patient's last menstrual period was 11/18/2024 (approximate). ASSESSMENT & PLAN ICD-10-CM 1. Second trimester ([facility]) Z34.92 POCT urinalysis dipstick manually resulted 2. 21 weeks gestation of ([facility]) Z3A.21 POCT urinalysis dipstick manually resulted Patient presents today for a routine obstetrics appointment. Patient is currently 21w4d with a Estimated Date of Delivery: 08/25/25. Pt had anatomy scan prior to appt. Will notify of results. Pt to return in 4 weeks for scheduled ob appt. Documented by Tricia zOuna LPN on behalf of: Devyn Tello DO documented in this encounterSullivan County Memorial HospitalBrpcngadxc88-98-2735 History of Present illness Narrative* Maryam Saul LPN - 03/20/2025 10:10 AM EDT Reason for Appointment: Patient ID: Juanpablo Chaparro is a 24 y.o. female who presents for Routine Visit Patient presents today for Return OB appointment. MEDICATIONS Current Outpatient Medications Medication Instructions MG-Arv-QQ-Embudo-3 ( GUMMIES/DHA & FA PO) 1 each, [...] nursing note reviewed. Exam conducted with a business services officer present. Vitals: Estimated body mass index is 32.02 kg/m as calculated from the following: Height as of 24: 5' 5 . Weight as of this encounter: 192 lb 6.4 oz. BP: 120/70 Patient's last menstrual period was 11/18/2024 (approximate). ASSESSMENT & PLAN ICD-10-CM 1. 17 weeks gestation of ([facility]) Z3A.17 POCT urinalysis dipstick manually resulted Alpha fetoprotein, maternal Alpha fetoprotein, maternal 2. Second trimester ([facility]) Z34.92 POCT urinalysis dipstick manually resulted Alpha fetoprotein, maternal Alpha fetoprotein, maternal 3. Screening, , for anatomic survey ([facility]) Z36.89 US OB 14+ weeks anatomy [...] of: Devyn Tello DO documented in this encounterSullivan County Memorial HospitalWkytirafyb56-00-9312 Telephone encounter Note* Telephone Encounter - Nohelia Breen - 02/07/2025 3:45 PM EDT Patient called us today and was concerned as she is in early stages of , and she is havingstomach cramping all across her abdomen. Patient states she is having no bleeding at this time, butI spoke with clinical staff and they recommended she go to [facility] to get evaluated. [facility] [id number] Miscellaneous Notes* Telephone Encounter - Nohelia Breen - 02/07/2025 3:45 PM EDT Patient called us today and was concerned as she is in early stages of , and she is havingstomach cramping all across her abdomen. Patient states she is having no bleeding at this time, butI spoke with clinical staff and they recommended she go to [facility] to get evaluated. documented in this encounterSullivan County Memorial [id number] History of Present illness Narrative* Ciarra Castillo [...] weeks gestation of Nurse Note: Patient desires [place]. Pt was advised to have both labs w/[place] at [facility] or the lab dept will not draw [place] w/o labs. PVU. Pt stated she had [...] or undercooked meat, and stay away from [facility]. Patient has also been advised to not [...] by: Ciarra Castillo MA documented in this encounterSullivan County Memorial HospitalKtxqzbspuy13-34-9128 History of Present illness Narrative* CHIKA Lyman [...] behalf of: CHIKA Lyman documented in this encounterSullivan County Memorial HospitalGwvdrefuav11-59-1294 History of Present illness Narrative* Tricia Ozuna [...] nursing note reviewed. Exam conducted with a business services officer present. Vitals: Estimated body mass index is [...] of: Devyn Tello DO documented in this encounterSullivan County Memorial HospitalMpqmreisop78-95-7851 History of Present illness Narrative* Tricia Ozuna [...] nursing note reviewed. Exam conducted with a business services officer present. Vitals: Estimated body mass index is [...] of: Devyn Tello DO documented in this encounterSullivan County Memorial HospitalInpzkhahlh40-08-5182 History of Present illness Narrative* Maryam Saul LPN - 06/13/2024 8:10 AM EDT Reason for Appointment: Patient ID: Juanpablo Chaparro is a 23 y.o. female who presents for No chief complaint on file. Patient presents today via telephone call for a telehealth appointment. Patients Phone #: [phone] (mobile) Current Medications: has a current medication [...] of: Devyn Tello DO documented in this encounterSullivan County Memorial HospitalYtjgqoljrp28-22-2105 History of Present illness Narrative* Ciarra Castillo [...] of: Devyn Tello DO documented in this encounterSullivan County Memorial HospitalTrdzlbekew39-87-2941 Hospital Discharge instructions Patient Education 04/12/2022 21:07:38 [...] help with your condition: Managing pain Take edbp-rha-fboexix and prescription medicines only as told by [...] 09/14/2006 Document Revised: 04/04/2019 Document Reviewed: 04/04/2019 [employer] Patient Education 2020 [employer] 04/12/2022 21:07:38 Vertigo Vertigo Vertigo is [...] if you feel dizzy. General instructions Take vila-ezt-ezdghfn and prescription medicines only as told by [...] 06/24/2006 Document Revised: 08/08/2019 Document Reviewed: 08/08/2019 [employer] Patient Education 2020 [employer] Follow Up Care 04/12/2022 19:25:17 With:ADRYAN MARIE Address: [address] [place], [place] [id number] [facility] (1) When:04/15/2022 20:55:24 Comments:Return to the emergency room if her headache gets worse, vertigo becomes persistent or any new symptoms [facility]07-13-2022 Evaluation note* Encounter Date Diagnosis Assessment [...] She was prescribed Zofran with no improvement. [email or web address] Other 07-06-2022 Evaluation note* Encounter Date Diagnosis [...] 3 days. No swimming for a week [email or web address] Other 01-28-2022 NoteOPERATIVE NOTE PROCEDURE: Diagnostic laparoscopy. PREOPERATIVE DIAGNOSIS: Pelvic pain, dyspareunia dysmenorrhea. POSTOPERATIVE DIAGNOSIS: Pelvic pain, dyspareunia dysmenorrhea. ANESTHESIA: General. SURGEON: Devyn Tello D.O. VETERINARY PATHOLOGIST: JAE Worley URINE OUTPUT: Yellow and clear. [...] taken to Recovery Room in stable condition. [facility] Signed and Approved by: DR DEVYN TELLO . 11/01/2021 17:31:00[facility] No data available for this section [facility] [employer] Other Evaluation note* Diagnosis Third trimester state, incidental Excessive growth affecting management of in third trimester, single or unspecified fetus documented in this encounter [facility] HealthcareEvaluation note* Diagnosis Well woman exam with routine gynecological exam Routine gynecological examination UTI symptoms Missed menses documented in this encounter [facility] HealthcareEvaluation note* Diagnosis Post depression (CMS/HCC)- Primary Mental disorders of mother, complicating , childbirth, or the puerperium, unspecified as to episode of care documented in this encounter [facility] HealthcareEvaluation note* Diagnosis Post depression (CMS/HCC) Mental disorders of mother, complicating , childbirth, or the puerperium, unspecified as to episode of care documented in this encounter [facility] HealthcareEvaluation note* Diagnosis Exposure to STD documented in this encounter [facility] HealthcareEvaluation note* Diagnosis Missed menses , [...] surgerySurgical Historyendometriosis Hospitalization HistoryRSV as a baby [email or web address] Other Progress note No data available for this section [facility] Summary Purpose Family History No [...] Date Adryan Marie MD [address] [place] [address] PCP - GeneralFamily Medicine06/19/23Team MemberRelationshipSpecialtyStart DateEnd Date Adryan Marie MD [address] [place] [address] PCP - [facility] Medicine06/19/23Te MemberRelationshipSpecialtyStart DateEnd Date Adryan Marie MD [address] [place] [address] PCP - [facility] Medicine06/19/23Te MemberRelationshipSpecialtyStart DateEnd Date Adryan Marie MD [address] [place] [address] PCP - [facility] Medicine06/19/23Team MemberRelationshipSpecialtyStart DateEnd Date Adryan Marie MD [address] [place] [address] PCP - [facility] Medicine06/19/23Te MemberRelationshipSpecialtyStart DateEnd Date Adryan Marie MD [address] [place] [address] PCP - [facility] Medicine06/19/23Te MemberRelationshipSpecialtyStart DateEnd Date Adryan Marie MD [address] [place] [address] PCP - Generalmily Medicine06/19/23 Devyn Tello, DO [facility] [place] [address] PCP - [facility]09/28/24[facility] MemberRelationshipSpecialtyStart DateEnd Date Adryan Marie MD [address] [place] [address] PCP - [facility]06/19/23 Devyn Tello, DO [facility] [place] [address] PCP - [facility]09/28/24Te MemberRelationshipSpecialtyStart DateEnd Date Adryan Marie MD [address] [place] [address] PCP - [facility]06/19/23 Devyn Tello, DO [facility] [place] [address] PCP - [facility]10/22Te MemberRelationshipSpecialtyStart DateEnd Date Adryan Marie MD [address] [place] [address] PCP - [facility]06/19/23 Devyn Tello, DO [facility] [place] [address] [address]10/22Te MemberRelationshipSpecialtyStart DateEnd Date Adryan Marie MD [address] [place] [address] PCP - [facility]06/19/23 Devyn Tello, DO [address] [place] [address] PCP - [facility]09/28/24Te MemberRelationshipSpecialtyStart DateEnd Date Adryan Marie MD [address] [place] [address] PCP - [facility]06/19/23 Devyn Tello, DO [facility] [address] [place], [facility] PCP - [facility]09/28/24Te MemberRelationshipSpecialtyStart DateEnd Date Adryan Marie MD [address] [place] [address] PCP - [facility]06/19/23 Devyn Tello, DO [facility] [place] [address] [facility] - [facility]09/28/24Te MemberRelationshipSpecialtyStart DateEnd Date Adryan Marie MD [address] [place] [address] PCP - [facility]06/19/23 Devyn Tello, DO [address] [place] [address] PCP - [facility]09/28/24Te MemberRelationshipSpecialtyStart DateEnd Date Adryan Marie MD [address] [place] [address] PCP - [facility]06/19/23 Devyn Tello, DO [address] [place], [place] [address]dorina Trejo [facility] [place] [address] PCP - [facility]09/28/24Te MemberRelationshipSpecialtyStart DateEnd Date Adryan Marie MD [address] [place] [address] PCP - [facility]06/19/23 Devyn Tello, DO [address] [place], [place] [address] Trejo [facility] [place] [address] PCP - [facility]09/28/24Te MemberRelationshipSpecialtyStart DateEnd Date Adryan Marie MD [address] [place] [address] PCP - [facility]06/19/23 Devyn Tello, DO [address] [place], [place] [address] Trejo [facility] [place] [address] PCP [facility]10/22Te MemberRelationshipSpecialtyStart DateEnd Date Adryan Marie MD [address] [place] [address] PCP - [facility]06/19/23 Devyn Tello DO [address] [place] [address] [place] [address] PCP - [facility]09/28/24 INFORMATION SOURCE (unrecogn ized section and content) DATE CREATED AUTHOR 04/26/2022 [facility] DATE CREATED AUTHOR AUTHOR'S ORGANIZ ATION 09/19/2022 [facility] DATE CREATED AUTHOR AUTHOR'S ORGANIZ ATION 08/09/2025 [facility] FOR RECORDS PERTAINING TO PATIENTS [...] BE BASED ON THE PRIMARY CLINICAL RECORDS. [facility]. provides no warranty or guarantee of the accuracy or completeness of information in this document.
== END 2025-08-27 18:12 | disposition home or self-care (01) ==
PROVIDERS: Emergency Provider Emergency Medicine
DX: O90.89 Other complications of the puerperium, not elsewhere classified (principal); B35.6 Tinea cruris
CPT/HCPCS: 99283

== ENCOUNTER 2025-09-20 22:28 | Emergency (ER) | payer OTHER, SELFPAY ==
[2025-09-20 22:36] VITALS: BP 134/97; PULSE 82; TEMP 36.6; O2SAT 98; BMI 39.1
--- NOTE | 2025-09-20 22:57 | ED_ITS ---
HPI - Skin/Abscess/Foreign Bdy General Chief complaint: Skin/Abscess/Foreign Body Stated complaint: C SECTION STITCHES NEED LOOKED AT Time Seen by Provider: 09/20/25 22:44 Source: patient Mode of arrival: walk-in Limitations: no limitations History of Present Illness HPI narrative: fungal infection at pannus. recent delivery and developed fungus infection at C section incision. On diflucan. Tonight became concerned about area of redness on left side of the incision and concerned she seen a sttitch. No pain or fever Related Data Previous Rx's ?Medication ?Instructions ?Recorded ibuprofen 800 mg tablet 800 mg PO Q8H PRN pain 14 da ys #40 08/18/25 tabs oxycodone-acetaminophen 5 mg-325 1 tab PO Q6H PRN pain 5 days #20 08/18/25 mg tablet (Percocet) tabs fluconazole 100 mg tablet 100 mg PO DAILY #7 tabs 07/31 Allergies Allergy/AdvReac Type Severity Reaction Status Date / Time Sulfa (Sulfonamide Allergy Intermediate Rash Verified 08/18/25 09:23 Antibiotics) Review of Systems ROS Status of ROS 10 or more systems reviewed and unremark able except as noted in history and below PFSH PFS Surgical History (Updated 02/02/24 @ 00:00 by ) Delivery by section Social History Little interest or pleasure in doing things: not at all Feeling down, depressed, or hopeless: not at all Exam Constitutional Vital Signs, click to edit/add: Last Vital Signs Temp 97.8 F 09/20/25 22:36 Pulse 82 09/20/25 22:36 Resp 20 09/20/25 22:36 BP 134/97 H 09/20/25 22:36 Pulse Ox 98 09/20/25 22:36 O2 Del Method Room Air 09/20/25 22:36 Common normals: no apparent distress, average body habitus, oriented x3, no limitations, healthy appearing, alert and well nourished [facility] Common normals: normocephalic and head/scalp atraumatic Eye Common normals: EOMs intact bilaterally and conjunctivae normal Respiratory Common normals: normal respiratory effort, no retractions, no use of accessory muscles and clear to auscultation bilaterally Cardio Common normals: regular rate, regular rhythm, S1 normal heart sound and S2 normal heart sound GI Other: C/S incision intact. Does have pannus over the incision. Area of erythema at left side of the incision. There is exposure of one of the dissolvable stitches. Has fungal odor. no dehiscence Extremity Common normals: normal to inspection and full ROM Neuro Common normals: oriented x3, CN's II-XII intact bilaterally and moves all extremities Psych Appearance: grossly normal Course Vital Signs Vital signs: Vital Signs Temperature 97.8 F 09/20/25 22:36 Pulse Rate 82 09/20/25 22:36 Respiratory Rate 20 09/20/25 22:36 Blood Pressure 134/97 H 09/20/25 22:36 Pulse Oximetry 98 09/20/25 22:36 Oxygen Delivery Method Room Air 09/20/25 22:36 Temperature 97.8 F 09/20/25 22:36 Pulse Rate 82 09/20/25 22:36 Respiratory Rate 20 09/20/25 22:36 Blood Pressure 134/97 H 09/20/25 22:36 Pulse Oximetry 98 09/20/25 22:36 Oxygen Delivery Method Room Air 09/20/25 22:36 MDM - Skin/Abscess/Foreign Bdy MDM Narrative Medical decision making narrative: presents with area of erythema at the left side of her incision. Incision intact. Has fungal rash and odor and exposure of one dissolvable stitch. Patient is on Diflucan. Will add nystatin powder to her regimen and have her follow up with ob Discharge Plan Discharge Chief Complaint: Skin/Abscess/Foreign Body Clinical Impression: Tinea corporis Patient Disposition: Home, Self-Care Prescriptions / Home Meds: No Action ibuprofen 800 mg tablet 800 mg PO Q8H PRN (Reason: pain) 14 Days Qty: 40 0RF oxycodone-acetaminophen [Percocet] 5-325 mg tablet 1 tab PO Q6H PRN (Reason: pain) 5 Days Qty: 20 0RF Rx Instructions: g89.18 fluconazole 100 mg tablet 100 mg PO DAILY Qty: 7 0RF Print Language: Swedish Instructions: Skin Yeast Infection (ED) Referrals: Physician,Non-Staff, MD [Primary Care Provider] - 1 week
--- OUTSIDE RECORDS SUMMARY | 2025-09-20 23:12 | XMS_ITS | Clinical Summary ---
Author Organization Drive[facility] tem Address [id number] [address] [place] [address] Care Team Providers Care Museum Exhibit Technician Name Role Phone Unavailable Primary Care Provider Unavailabl e Allergies Active AllergyReactionsCriticalityNoted DateCommentsSulfa (Sulfonamide Antibiotics)Rash,TuecjOge33/20/2018 Medications No known medications Active Problems No known active problems Immunizations ImmunizationAdministration DatesNext DueDTaP, Rbqfqzboklb26/25/2007,05/23/2005, 03/18/2002,01/12/2002,2001Hep B, Adolescent or Xeaeqnphl20/21/2002, 2001,2001HiB05/23/2005,03/18/2002,01/12/2002,2001IPV02/19/2007 ,05/23/2005,08/14/2002,01/12/2002,2001MMR11/16/2002MMRV02/19/2007Tdap 05/04/20141779Omjigkztn20/15/2003 Family History Medical HistoryRelationNameCommentsNo Known ProblemsFatherNo Known [...] care, and heating?Not hard at all05/23/2024HQ-2AnswerDate RecordedTotal Ljwnt1533PRAPARE - TransportationAnswerDate RecordedIn the past 12 months, [...] as a part of a household?No4ChildcareAnswer Date JvjinlraOecjpaemiBspdxmq44/12/2019EmploymentAnswerDate RecordedEmployment Txglpwi1703/09/2019Hunger ScreeningAnswerDate RecordedWithin the past 12 months we worried whether our food would run out before we got money to buy more.Never True05/23/2024Within the past 12 months the food we bought just didn't last and we didn't have money to get more.Never True05/23/2024urpose - LifeAnswerDate RecordedPurpose and direction in exmuIcjmpti31/22/2021CommentsNoSex and Gender InformationValueDate RecordedSex Assigned at BirthNot on fileLegal Sex Xivwio1905/03/2015 11:58 AM EDTGender IdentityNot on fileSexual OrientationNot on file Last Filed Vital Signs Vital SignReadingTime TakenCommentsBlood Rmkepdww854/80004/10/2023 9:46 AM EDT Xhbxt6081/14/2023 9:46 AM KAASzwqhpsjweu59.9 ??C (98.5 ??F)04/10/2023 9:46 AM EDTRespiratory Dbgv363804/10/2023 9:46 AM EDTOxygen Ndndmbajyu11%09/04/2022 2:12 PM ESTInhaled Oxygen Concentration--Dvuigt28.8 kg (215 lb 8 oz)04/10/2023 9:46 AM OJHPrlgbb106.1 cm (5' 5 )04/10/2023 9:46 AM EDTBody Mass Index35.8604/10/2023 9:46 AM EDT Plan of Treatment Health MaintenanceDue DateLast DoneCommentsChlamydia Wdzhrosgz2001Tobacco Ujqamrtba78/15/2013dult BMI Dzxngvsag51epression Screening TaP,Tdap and Td Vaccines (7 - Td or Tdap)05/04/2024 05/04/2014, 02/19/2007, 05/23/2005, Additional history existsInfluenza Vaccine 05/29/2025Pap Smear Medical Devices Not on file Insurance * Guarantor: Maya Maria TypeRelation to PatientDate of BirthPhone Billing AddressPersonal/SmraudYiwcai28/26/1975 [address] [phone]
--- OUTSIDE RECORDS SUMMARY | 2025-09-20 23:13 | XMS_ITS | Encounter Summary ---
Author Organization [facility] Address [address] [facility] [place] [address] Care Team Providers Care Yard Pipe Grader Name Role Phone Roberto Marie MD Primary Care Provider + [phone] Devyn Tello DO Unavailable Reason for Visit * ReasonCommentsMed Change Request Encounter Details DateTypeDepartmentCare Team (Latest Contact Info)Gltnoqnlkcu25/23/2025Refill [facility] [address] [place] [address] Nichole Stallings, GLASSINE MACHINE TENDER [address] [place] [address] History of skin pruritus Social History Tobacco UseTypesPacks/DayYears UsedDateSmoking Tobacco: Former Comments:Current smoker (richar quency unknown) Alcohol UseStandard Drinks/WeekCommentsNever0 (1 standard drink = 0.6 oz pure alcohol)PHQ-2AnswerDate RecordedPatient Health Questionnaire-2 Krvju585 CommentsNoSex and Gender InformationValueDate RecordedSex Assigned at BirthNot on fileLegal OtxWqmjzd96/15/2023 6:47 PM EDTGender IdentityNot on file Sexual OrientationNot on filedocumented as of this encounter Plan of Treatment DateTypeDepartmentCare Team (Latest Contact Info)Vpbvoxdjziv22/29/2025 11:30 AM ESTPostpartum Visit [facility] [address] [place] [id number] Cydney Aviles PA [address] [place], [place] [id number] documented as of this encounter Goals GoalPatient Goal TypeAssociated ProblemsRecent ProgressPatient-Stated?Author Reminders Care PlanOB RemindersNoOpen Scheduling, Backgrounddocumented as of this encounter Visit Diagnoses Diagnosis History of skin pruritus documented in this encounter Additional Health Concerns Active ProblemsNoted DateDiagnosed DateOB Bujfczaot48/30/2023 documented as of this encounter Care Teams Team MemberRelationshipSpecialtyStart DateEnd Date Roberto Marie MD [address] [place] [address] [facility] - [facility]/19/23 Devyn Tello DO [address] [place] [address] PCP - [facility]09/28/24documented as of this encounter
--- OUTSIDE RECORDS SUMMARY | 2025-09-20 23:13 | XMS_ITS | Encounter Summary ---
Author Organization [facility] Address [address] [place] [address] Care Team Providers Care Assembler Aircraft Power Plant Name Role Phone Roberto Marie MD Primary Care Provider + [phone] Devyn Tello DO Unavailable Encounter Details DateTypeDepartmentCare Team (Latest Contact Info)Mvlonxpjcrx32/19/2025Telephone [facility] [address] [place] [address] Devyn Tello DO [address] [place] [address] Social History Tobacco UseTypesPacks/DayYears UsedDateSmoking Tobacco: Former Comments:Current smoker (richar quency unknown) Alcohol UseStandard Drinks/WeekCommentsNever0 (1 standard drink = 0.6 oz pure alcohol)PHQ-2AnswerDate RecordedPatient Health Questionnaire-2 Xlobn073 CommentsNoSex and Gender InformationValueDate RecordedSex Assigned at BirthNot on fileLegal KsvXcyoig19/15/2023 6:47 PM EDTGender IdentityNot on file Sexual OrientationNot on filedocumented as of this encounter Miscellaneous Notes * Telephone Encounter - Jasmin Nogueira LPN - 09/15/2025 10:33 AM EST Patient called the office and she left a voicemail that she is still dealing with the yeast and sheis not sure what to do. Patient was advised a script could be called in for her but if this is bad would advise being checked as we do not have provider in office. documented in this encounter Plan of Treatment DateTypeDepartmentCare Team (Latest Contact Info)Xeqgbtpymhl66/29/2025 11:30 AM ESTPostpartum Visit [facility] [address] [place] [address] Cydney Aviles PA [address] [place] [address] documented as of this encounter Goals GoalPatient Goal TypeAssociated ProblemsRecent ProgressPatient-Stated?Author Reminders Care PlanOB RemindersNoOpen Scheduling, Backgrounddocumented as of this encounter Visit Diagnoses Diagnosis Yeast infection documented in this encounter Additional Health Concerns Active ProblemsNoted DateDiagnosed DateOB Kkxpznvmo37/30/2023 documented as of this encounter Care Teams Team MemberRelationshipSpecialtyStart DateEnd Date Roberto Marie MD [address] [place] [address] [facility] - [facility]/23 Devyn Tello DO [address] [place], [place] [address] PCP - [facility]09/28/24documented as of this encounter
--- OUTSIDE RECORDS SUMMARY | 2025-09-20 23:13 | XMS_ITS | Clinical Summary ---
Author Organization [facility] Address [address] [place] [address] Care Team Providers Care Cone Trucker Name Role Phone Roberto Marie MD Primary Care Provider + [phone] Devyn Tello DO Unavailable Allergies Active AllergyReactionsCriticalityNoted DateCommentsSulfa AntibioticsFever,Hives ,OqatOgo3506/17/2018 Medications MedicationSigDispense QuantityRefillsLast FilledStart DateEnd DateStatus QH-Ben-DP-Grapeview-3 ( GUMMIES/DHA & FA PO) Take 1 each by mouth DailyActive clotrimazole-betamethasone (Lotrisone) cream Apply 1 application topically in the morning and 1 application before bedtime. 5Active famotidine (Pepcid) 20 MG tablet Indications:History of skin pruritusTake 2 tablets (40 mg) by mouth in the morning and 2 tablets (40 mg) before bedtime. 120 tablet /5Active fluconazole (Diflucan) 100 MG tablet Indications:Yeast infectionTake 1 tablet (100 mg) by mouth Daily for 10 days 10 tablet /5Active cephalexin (Keflex) 500 MG capsule Indications:Pseudomonas infectionTake 1 capsule (500 mg) by mouth in the morning and 1 capsule (500 mg) in the evening and 1 capsule(500 mg) before bedtime. Do all this for 10 days. 30 capsule 11Discontinued fluconazole (Diflucan) 150 MG tablet Indications:Pseudomonas infectionTake 1 tablet (150 mg) by mouth 1 (one) time for 1 dose Repeat in 7 days if symptoms persist. 2 tablet Expired methylPREDNISolone (Medrol Dospak) 4 MG tablets Indications:Allergic reaction to adhesiveFollow schedule on package instructions 21 tablet Discontinued predniSONE (Deltasone) 10 MG tablet Take 10 mg by mouth DailyDiscontinued fluconazole (Diflucan) 100 MG tablet Take 100 mg by mouth DailyDiscontinued fluconazole (Diflucan) 100 MG tablet Indications:ThrushTake 1 tablet (100 mg) by mouth Daily for 10 days 10 tablet Discontinued Resolved Problems ProblemNoted DateDiagnosed DateResolved DateThird trimester ([facility]) weeks gestation of ([facility])06/20/2025 08/18/2025 Encounters DateTypeDepartmentCare DnqgJcdxrjlzwkg57/24/5778Dpmrkp42/23/2025Refill [facility] [address] [place] [address] [place] [address] Nichole Stallings, YURI History of skin /19/2025Telephone [facility] [place] [address] Devyn Tello, DO 09/04/2025Telephone [facility] [place] [address] Devyn Tello, DO 08/28/2025 2:30 PM ESTOffice Visit [facility] [place] [address] Nichole Stallings, YURI History of skin pruritus (Primary Dx); Postoperative sbgysybzjtv53/01/2025amboo flowsheet [facility] [address] [place] [address] Nichole Stallings NP 08/22/2025 10:20 AM ESTPostpartum Visit [facility] [address] [place] [address] Devyn Tello, DO S/P section; Pseudomonas infection; Allergic reaction to cxnjqheb55/25/2025Telephone [facility] [address] [place] [address] Devyn Tello, DO 08/21/2025bstract [facility] [address] [place] [address] Devyn Tello, DO 08/21/2025bstract [facility] [address] [place] [address] Devyn Tello, DO 08/19/2025linisync Result Encounter N[facility] External Department Unsolicited Devyn Tello, DO 08/18/2025bstract [facility] [address] [place] [address] Devyn Tello, DO 08/18/2025bstract [facility] [address] [place] [address] Devyn Tello, DO 08/18/2025External Result Encounter [facility] External Department Unsolicited Devyn Tello, DO 08/18/2025linisync Result Encounter NOMS External Department Unsolicited Devyn Tello, DO 08/15/2025 10:10 AM ESTRoutine [facility] [address] [place] [address] Cydney Aviles, PA 38 weeks gestation of ([facility]); Third trimester ([facility]); Subchorionic hemorrhage of placenta, antepartum ([facility])08/15/2025amboo flowsheet [facility] [address] [place] [address] Cydney Aviles PA 08/14/2025Telephone [facility] [address] [place] [address] Maryam Saul LPN 08/08/2025 10:20 AM ESTRoutine [facility]KER[facility] [address] [place] [address] Devyn Tello DO 37 weeks gestation of ([facility]); Third trimester ([facility]); Subchorionic hemorrhage of placenta, antepartum ([facility])08/08/2025amboo flowsheet [facility] [address] [place] [address] Devyn Tello DO 08/03/20254538Evtwwm59/05/2025 9:30 AM ESTRoutine [facility] FISHN [address] [place] [address] Cydney Aviles PA Third trimester ([facility]); 36 weeks gestation of ([facility])08/02/2025linisync Result Encounter NOM[facility] External Department Unsolicited Cydney Aviles PA 08/02/2025amboo flowsheet [facility] [address] [place] [address] [phone] Cydney Aviles PA 07/26/20255122Zihjnu76/21/2025 9:00 AM EDTRoutine [facility] [address] [place] [phone] Devyn Tello, Third trimester ([facility]); 34 weeks gestation of ([facility])07/18/2025amboo flowsheet [facility] [address] [place] [address] Devyn Tello DO 07/17/20251735Iadqem27/14/9191Smdwii06/08/2025 9:20 AM EDTRoutine [facility] [address] [place] [address] Nichole Stallings NP Third trimester ([facility]); 32 weeks gestation of ([facility])07/05/2025amboo flowsheet [facility] [address] [place] [address] Nichole Stallings NP 06/29/2025bstract [facility] [address] [place] [address] Cydney Alexis LPN 06/28/20256668Ggpbfj55/29/2025Patient Outreach [facility] [address] [place] [address] Cydney Alexis LPN from Last 3 Months Family History Medical HistoryRelationNameCommentsCancerMaternal GrandfatherRickprostate Cervical cancerMaternal Grandmotherhigh blood pressureMaternal GrandmotherCancer MotherTracyDiabetesMotherTracyDiabetesMother's SisterTammyLung cancerPaternal GrandmotherRelationNameStatusCommentsMaternal GrandfatherRickMaternal GrandmotherMotherTracyMother's SisterTammyPaternal Grandmother Social History Tobacco UseTypesPacks/DayYears UsedDateSmoking Tobacco: Former Tobacco Cessation:Counseling Given: Not Answered Comments:Current smoker (frequency unknown) Alcohol UseStandard Drinks/WeekCommentsNever0 (1 standard drink = 0.6 oz pure alcohol)PHQ-2AnswerDate RecordedPatient Health Questionnaire-2 Ugjrq671 CommentsNoSex and Gender InformationValueDate RecordedSex Assigned at BirthNot on fileLegal JqdAljihv72/15/2023 6:47 PM EDTGender IdentityNot on file Sexual OrientationNot on file Last Filed Vital Signs Vital SignReadingTime TakenCommentsBlood Wlxbadhs621/7008/28/2025 2:54 PM EST Pulse--Temperature--Respiratory Rate--Oxygen Saturation--Inhaled Oxygen Concentration--Eitgnw71.4 kg (197 lb)08/28/2025 2:54 PM RVIGyoqra764.1 cm (5' 5 )03/08/2024 11:37 AM EDTBody Mass Index32.78003/08/2024 11:37 AM EDT Plan of Treatment DateTypeDepartmentCare Team (Latest Contact Info)Jzmbgbylpza45/29/2025 11:30 AM ESTPostpartum Visit [facility] [address] [place] [address] Cydney Aviles PA [address] [place], [place] [phone] Health MaintenanceDue DateLast DoneCommentsInfluenza Vaccine (#1)05/29/2025 Pneumococcal Vaccine: Pediatrics (0 to 5 Years) and At-Risk Patients (6 to 64 Years)Aged OutNo longer eligible based on patient's age to complete this topic Goals GoalPatient Goal TypeAssociated ProblemsRecent ProgressPatient-Stated?Author Reminders Care PlanOB RemindersNoOpen Scheduling, Background Procedures Procedure NamePriorityDate/TimeAssociated DiagnosisCommentsALL CBC WITH AUTO KYTPCzavder82/22/2025 6:21 AM EST URINE CULTURE - MUFGKmiiscw52/21/2025 8:30 AM EST [facility] DRUG SCREEN RAPID (URINE)Zfgaqka4008/18/2025 8:30 AM EST HMHP URINALYSIS, WITH TEPVIXJIKZPStbyfay07/21/2025 8:30 AM EST CULTURE, URINE, CTVZZJLJrtysvw05/21/2025 8:30 AM EST ALL CBC WITH AUTO PLZDGqcfown16/21/2025 8:10 AM EST POCT URINALYSIS SYKXXUVIOmfoiuv70/11/2025 10:54 AM EST 37 weeks gestation of ([facility]) Third trimester ([facility]) POCT URINALYSIS XAAZNBBCTlyhhll92/05/2025 9:46 AM EST Third trimester ([facility]) STREP GP B CULTURE+KMJKMoremzc73/05/2025 9:27 AM EST POCT URINALYSIS DODNRMQJKsmrwht20/21/2025 9:22 AM EDT 34 weeks gestation of ([facility]) POCT URINALYSIS RCZGILYOBefsuaf78/08/2025 9:43 AM EDT 32 weeks gestation of ([facility]) from Last 3 Months Results * (ABNORMAL) ALL CBC WITH AUTO DIFF (08/19/2025 6:21 AM EST) Only the most recent of2 resultswithin the time period is included. ComponentValueRef RangeTest MethodAnalysis TimePerformed AtPathologist Signature TBH WBC9.94.0 - 11.0 10 3/uLTBHTBH RBC3.22(L)4.20 - 5.40 10 6/uLTBHTBH HGB8.6(L) 12.0 - 16.0 g/dLTBHTBH HCT27.3(L)36.0 - 48.0 %TBHTBH MCV84.881.0 - 99.0 fLTBHTBH MCH26.726.7 - 34.0 pgTBHTBH MCHC31.529.9 - 35.2 g/dLTBHTBH RDW13.211.0 - 15.0 % TBHTBH TES495480 - 450 10 3/uLTBHTBH MPV11.69.5 - 13.5 fLTBHNEUTROPHILS PERCENT AUTO80.1(H)43.0 - 75.0 %TBHLYMPHOCYTES PERCENT AUTO11.2(L)20.5 - 60.0 %TBH MONOCYTES PERCENT AUTO7.11.7 - 12.0 %TBHTBH EO %0.5(L)0.9 - 7.0 %TBHBASOPHILS PERCENT AUTO0.50.2 - 2.0 %TBHIMMATURE GRANULOCYTES PCT AUTO0.6(H)0.0 - 0.5 %TBH NEUTROPHILS ABSOLUTE AUTO7.9(H)1.4 - 6.5 10 3/uLTBHLYMPHOCYTES ABSOLUTE AUTO1.1 (L)1.2 - 3.8 10 3/uLTBHMONOCYTES ABSOLUTE AUTO0.70.3 - 0.8 10 3/uLTBHTBH EO #0.1 0.0 - 0.7 10 3/uLTBHBASOPHILS ABSOLUTE AUTO0.10.0 - 0.1 10 3/uLTBHIMMATURE GRANULOCYTES ABS AUTO0.06(H)0.00 - 0.03 10 3/uLTBHSpecimen (Source)Anatomical Location / LateralityCollection Method / VolumeCollection TimeReceived Time 08/19/2025 6:21 AM EST08/19/2025 6:28 AM EST Narrative [facility] - 08/19/2025 6:38 AM EST Authorizing ProviderResult TypeResult StatusCorey Omer DOCLINISYNCFinal Result Performing OrganizationAddressCity/State/ZIP CodePhone Number [facility] * URINE CULTURE - [facility] (08/18/2025 8:30 AM EST)ComponentValueRef RangeTest MethodAnalysis TimePerformed AtPathologist SignatureURINE CULTURE - [facility] ??Urine Culture - [facility] SEEFR [facility] RESULT^[facility] RESULT TBHURINE CULTURE - FRMCSEEN SEE SCANNED REPORT, NORMAL^SEE SCANNED REPORT, NORMALTBHSpecimen (Source)Anatomical Location / LateralityCollection Method / VolumeCollection TimeReceived Time08/18/2025 8:30 AM EST08/18/2025 8:44 AM EST Narrative [facility] - 08/20/2025 5:40 PM EST Authorizing ProviderResult TypeResult StatusCorey Omer DOLAB BLOOD ORDERABLES Final ResultPerforming OrganizationAddressCity/State/ZIP CodePhone Number [facility] * [facility] DRUG SCREEN RAPID (URINE) (08/18/2025 8:30 AM EST)ComponentValueRef Range Test MethodAnalysis TimePerformed AtPathologist SignatureCANNABINOID SCREEN URINENEGATIVENEGATIVETBHPHENCYCLIDINE SCREEN URINENEGATIVENEGATIVETBHCOCAINE SCREEN URINENEGATIVENEGATIVETBHMETHAMPHETAMINES SCREEN URINENEGATIVENEGATIVE TBHOPIATE SCREEN URINENEGATIVENEGATIVETBHAMPHETAMINE SCREEN URINENEGATIVE NEGATIVETBHBENZODIAZEPINES SCREEN URINENEGATIVENEGATIVETBHTRICYCLIC ANTIDEPRESSANT URINENEGATIVENEGATIVETBHMETHADONE SCREEN URINENEGATIVENEGATIVE TBHBARBITURATES SCREEN URINENEGATIVENEGATIVETBHOXYCODONE SCREEN URINENEGATIVE NEGATIVETBHBUPRENORPHINE SCREEN URINENEGATIVENEGATIVETBHComment: DRUG CLASS TEST SYSTEM CUT-OFF CONCENTRATIONS ARE FOLLOWS: AMP (Amphetamine): 500 ng/mL BAR (Barbiturates): 200 ng/mL BZO (Benzodiazepines): 150 ng/mL BUP (Buprenorphine): 10 ng/mL NADER (Cocaine): 150 ng/mL mAMP (Methamphetamine): 500 ng/mL MTD (Methadone): 200 ng/mL OPI (Opiates): 100 ng/mL OXY (Oxycodone): 100 ng/mL PCP (Phencyclidine): 25 ng/mL THC (Cannabinoids): 50 ng/mL TCA (Trycyclic Antidepressants): 300 ng/mL Specimen (Source)Anatomical Location / LateralityCollection Method / Volume Collection TimeReceived Time08/18/2025 8:30 AM EST08/18/2025 8:44 AM EST Narrative [facility] - 08/18/2025 9:02 AM EST Authorizing ProviderResult TypeResult StatusCorey Omer DOCLINISYNCFinal Result Performing OrganizationAddressCity/State/ZIP CodePhone Number [facility] * (ABNORMAL) [facility] URINALYSIS, WITH MICROSCOPIC (08/18/2025 8:30 AM EST)Component ValueRef RangeTest MethodAnalysis TimePerformed AtPathologist SignatureCOLOR URINEYELLOWYELLOWTBHCLARITY URINECLEARCLEARTBHSPECIFIC GRAVITY URINE1.0251.005 - 1.025TBHPH URINE6.55.0 - 9.0TBHPROTEIN URINETRACENEG/TRACE mg/dLTBHGLUCOSE URINE UANEGATIVENEGATIVE mg/dLTBHBILIRUBIN URINENEGATIVENEGATIVETBHKETONES URINENEGATIVENEGATIVE mg/dLTBHBLOOD URINENEGATIVENEGATIVETBHNITRITE URINE NEGATIVENEGATIVETBHUROBILINOGEN URINE0.20.2 - 1.0 EU/dLTBHLEUKOCYTE ESTERASE URINETRACE(A)NEGATIVETBHTBH WBC5-10(A)NONE SEEN #/HPFTBHTBH RBC0-20 - 2 #/HPF TBHBACTERIA URINELARGE(A)NONE SEEN #/HPFTBHMUCUS URINEMODERATE(A)NONE SEENTBH SQUAMOUS EPITHELIAL CELL URINEMODERATE(A)NONE/RARE #/LPFTBHCRYSTALS SEEN?None SeenNone Seen #/HPFTBHCAST SEEN?NONE SEENNONE SEEN #/LPFTBHURINE CULTURE INDICATEDYES-[facility]LAH[facility] CITYTBHSpecimen (Source)Anatomical Location / Laterality Collection Method / VolumeCollection TimeReceived Time08/18/2025 8:30 AM EST 08/18/2025 8:44 AM EST Narrative [facility] - 08/18/2025 8:58 AM EST Authorizing ProviderResult TypeResult StatusCorey Omer DOCLINISYNCFinal Result Performing OrganizationAddClarion Hospital/[facility] TattnallPhone Number [facility] * Urine culture (08/18/2025 8:30 AM EST)ComponentValueRef RangeTest Method Analysis TimePerformed AtPathologist SignatureFR NOTE <9,000 colonies/ml mixed ?bacterial skin contaminants ?2 Days 08/20/2025 10:05 AM [facility] CtrSpecimen (Source)Anatomical Location / LateralityCollection Method / VolumeCollection TimeReceived TimeUrine Urine specimen obtained by clean catch procedure / Ltqqgvy3308/18/2025 8:30 AM EST 08/18/2025 4:24 PM ESTComment:Clean-Voided Midstream Narrative [facility] - 08/20/2025 10:05 AM EST Diagnosis: Comment: Authorizing ProviderResult TypeResult StatusCorey Omer DOLAB MICROBIOLOGY - GENERAL ORDERABLESFinal ResultPerforming OrganizationAddClarion Hospital/[facility] Code Phone Number [facility] [address] [place] [address], [facility] [address] [place] [address] * POCT urinalysis dipstick manually resulted (08/08/2025 10:54 AM EST) Only the most recent of4 resultswithin the time period is included. ComponentValueRef [...] Location / LateralityCollection Method / VolumeCollection TimeReceived NageYsvan89/11/2025 10:54 AM EST Narrative Authorizing ProviderResult TypeResult [...] noted.TBHSTREP GP B CULTURE+RFLX Performed at: - [facility] CampusTBHSTREP GP B CULTURE+[id number] [place], [place] [id number] GP B CULTURE+RFLXLab Director: Bobby Segal PhD, Phone: [phone] (Source)Anatomical Location / Laterality Collection Method / VolumeCollection TimeReceived Time08/02/2025 9:27 AM EST 08/02/2025 3:49 PM EST Narrative [facility] - 08/06/2025 6:09 PM EST Authorizing ProviderResult TypeResult StatusAmy [facility] BLOOD ORDERABLES Final ResultPerforming OrganizationAddressCity/State/ZIP CodePhone Number [facility] from Last 3 Months Additional Health Concerns Active ProblemsNoted DateDiagnosed DateOB Mjidtjzbo46/30/2023 Insurance * Guarantor: Breonna Reynoso AAccount TypeRelation to PatientDate of PhoneBilling AddressPersonal/CnvlmvTgqw[address] [address] Care Teams Team MemberRelationshipSpecialtyStart DateEnd Date Roberto Marie MD [address] [place] [address] [facility] - [facility] Devyn Tello DO [address] [place] [address] [place] [address] PCP - [facility]09/28/24
--- OUTSIDE RECORDS SUMMARY | 2025-09-20 23:13 | XMS_ITS | Encounter Summary ---
Author Organization [facility] Address [address] [place] [address] Care Team Providers Care Foreign Banknote Teller Trader Name Role Phone Roberto Marie MD Primary Care Provider + [phone] Devyn Tello DO Unavailable Encounter Details DateTypeDepartmentCare Team (Latest Contact Info)Stepnwbives49/24/2025Travel Social History Tobacco UseTypesPacks/DayYears UsedDateSmoking Tobacco: Former Comments:Current smoker (richar quency unknown) Alcohol UseStandard Drinks/WeekCommentsNever0 (1 standard drink = 0.6 oz pure alcohol)PHQ-2AnswerDate RecordedPatient Health Questionnaire-2 Onwmj883 CommentsNoSex and Gender InformationValueDate RecordedSex Assigned at BirthNot on fileLegal WyySjdhtf70/15/2023 6:47 PM EDTGender IdentityNot on file Sexual OrientationNot on filedocumented as of this encounter Plan of Treatment DateTypeDepartmentCare Team (Latest Contact Info)Hpyxhnlmsqp32/29/2025 11:30 AM ESTPostpartum Visit [facility] [address] [place] [address] Cydney Aviles PA [address] [place] [address] documented as of this encounter Goals GoalPatient Goal TypeAssociated ProblemsRecent ProgressPatient-Stated?Author Reminders Care PlanOB RemindersNoOpen Scheduling, Backgrounddocumented as of this encounter Visit Diagnoses Not on filedocumented in this encounter Additional Health Concerns Active ProblemsNoted DateDiagnosed DateOB Cwmzrvaad23/30/2023 documented as of this encounter Care Teams Team MemberRelationshipSpecialtyStart DateEnd Date Roberto Marie MD [address] [place] [address] [facility] - [facility] Devyn Tello DO [address] [place], [place] [address]aranza [place] [address] PCP - [facility]09/28/24documented as of this encounter
== END 2025-09-20 23:41 | disposition home or self-care (01) ==
LOC: ER 23:09
PROVIDERS: Emergency Provider Internal Medicine
DX: O86.01 Infection of obstetric surgical wound, superficial incisional site (principal); B35.4 Tinea corporis
CPT/HCPCS: 99281